=== PATIENT | male | born 1960 | race Caucasian/White ===

== ENCOUNTER 2022-12-11 15:15 | Inpatient (IN) | payer MEDICARE, MEDICAID, SELFPAY ==
[2022-12-11] VITALS (7 sets, daily range): BP systolic 148–149; BP diastolic 83–99; PULSE 71–73; RESP 16–20; TEMP 36.6; O2SAT 97–99; BMI 26.6
--- NOTE | ~2022-12-11 | CT_ITS ---
EXAMINATION: CT HEAD WITHOUT CONTRAST CLINICAL INFORMATION: Altered mental status. COMPARISON: None TECHNIQUE: Contiguous axial imaging was performed from the skull base to vertex without intravenous administration of contrast. Coronal and sagittal reformatted images were obtained. This CT examination was performed using dose optimization techniques as appropriate, variously including the following: *Automated exposure control *Adjustment of mA and/or kV according to patient size (this includes techniques or standardized protocols for targeted exams where dose is matched to indication/reason for exam; i.e. extremities or head) *Use of iterative reconstruction technique DLP: 669 mGy-cm FINDINGS: There is mild widening of the cortical sulci and associated ventriculomegaly. The lateral ventricles are symmetrical. The third and fourth ventricles are in their normal midline position. The basilar and prepontine cisterns are unremarkable. There is no acute intra or extracerebral abnormality. There is no mass effect or midline shift. Sections through the bony calvarium show no acute abnormality. Incidental prominent posterior occipital protuberance. The orbits are intact. The paranasal sinuses are clear. The mastoid air cells are clear. Mild mid nasal septal deviation, apex the right. CT/CT head/brain wo IV con IMPRESSION: No acute intracranial pathology.
--- NOTE | 2022-12-11 15:39 | ECG_ITS ---
Test Reason : MED CLEAREANCE Blood Pressure : / mmHG Vent. Rate : 059 BPM Atrial Rate : 059 BPM P-R Int : 152 ms QRS Dur : 086 ms QT Int : 422 ms P-R-T Axes : 034 -33 012 degrees QTc Int : 417 ms Sinus bradycardia Left axis deviation Abnormal ECG When compared with ECG of 14-FEB-2017 10:14, Vent. rate has decreased BY 30 BPM Referred By: Connie Barraza Electronically Signed By:Addy Mcgowan
--- NOTE | 2022-12-11 15:45 | ED_ITS ---
HPI - Psych General Chief Complaint: Psychiatric Symptoms <ANDREW Armenta - Last Filed: 12/11/22 17:44> Stated Complaint: S12 paranoia <ANDREW Armenta - Last Filed: 12/11/22 17:44> Time Seen by Provider: 12/11/22 15:38 <ANDREW Armenta - Last Filed: 12/11/22 17:44> Source: patient, EMS and old records reviewed <ANDREW Armenta - Last Filed: 12/11/22 17:44> Mode of arrival: EMS <ANDREW Armenta - Last Filed: 12/11/22 17:44> Limitations: no limitations <ANDREW Armenta Last Filed: 12/11/22 17:44> History of Present Illness HPI Narrative: 62 yo male with history of autism spectrum disorder, neurocognitive disorder, depression who presents to the ER from [facility] on a section 12 for significant disorientation, aggression and was recently discharged from a geriatric psych unit. He states he was recently admitted to [facility] for depression. He reports his depression is better. He is a poor historian. Patient was reportedly at a day program and was [place] where he was making aggressive gestures toward staff. He was confused, agitated. He has been noted to not be caring for himself. His Section 12 documentation reports suicidal ideation with plan. Patient currently denies. Patient tells me he lives home alone at an apartment in [place]. He does not know why he is in the emergency department. He wants to go home. He also keeps asking for new eyeglasses and an eye exam. <ANDREW Armenta - Last Filed: 12/11/22 17:44> MD complaint: suicidal ideation and feels depressed <ANDREW Armenta - Last Filed: 12/11/22 17:44> Onset (ago): unknown <ANDREW Armenta Last Filed: 12/11/22 17:44> Relieving factors: none <ANDREW Armenta Last Filed: 12/11/22 17:44> Exacerbating factors: none <ANDREW Armenta Last Filed: 12/11/22 17:44> Associated symptoms: insomnia <ANDREW Armenta - Last Filed: 12/11/22 17:44> Treatments prior to arrival: placed on mental health hold <ANDREW Armenta - Last Filed: 12/11/22 17:44> If self harm: admits thoughts of self harm and has plan <ANDREW Armenta - Last Filed: 12/11/22 17:44> Related Data Home Medications: Home Medications Medication Instructions Recorded Confirmed atorvastatin 80 mg tablet 80 mg PO DAILY 12/11/22 12/11/22 citalopram 20 mg tablet 20 mg PO DAILY 12/11/22 12/11/22 duloxetine 60 mg capsule,delayed 60 mg PO DAILY 12/11/22 12/11/22 release gabapentin 100 mg capsule 100 mg PO TID PRN Anxiety 12/11/22 12/11/22 gabapentin 300 mg capsule 600 mg PO TID 12/11/22 12/11/22 ibuprofen 400 mg tablet 400 mg PO Q6-8H PRN Pain 12/11/22 12/11/22 lisinopril 20 mg tablet 20 mg PO DAILY 12/11/22 12/11/22 melatonin 3 mg tablet 9 mg PO BEDTIME 12/11/22 12/11/22 metformin 500 mg tablet,extended 1,000 mg PO BID 12/11/22 12/11/22 release 24 hr metoprolol succinate 50 mg 50 mg PO DAILY 12/11/22 12/11/22 tablet,extended release 24 hr mirtazapine 15 mg disintegrating 15 mg PO DAILY 12/11/22 12/11/22 tablet mirtazapine 30 mg disintegrating 30 mg PO BEDTIME 12/11/22 12/11/22 tablet olanzapine 10 mg disintegrating 5 mg PO BID PRN Agitation 12/11/22 12/11/22 tablet olanzapine 20 mg disintegrating 20 mg PO BEDTIME 12/11/22 12/11/22 tablet trazodone 50 mg tablet 25 mg PO BEDTIME PRN Agitation 12/11/22 12/11/22 <ANDREW Armenta - Last Filed: 12/11/22 17:44> Allergies/Adverse Reactions: Allergies Allergy/AdvReac Type Severity Reaction Status Date / Time No Known Allergies Allergy Unverified 07/13/20 19:15 [No Known Allergies*] <ANDREW Armenta - Last Filed: 12/11/22 17:44> Review of Systems Review of Systems: Yes all other systems are reviewed and are negative <ANDREW Armenta - Last Filed: 12/11/22 17:44> [facility] Social History Social History: Social History Alcohol intake: unknown Smoked in Last 30 Days: No Use of substances other than those prescribed or required for medical reasons: Unknown Advance Directives: No Advance Directives Information Provided: No <ANDREW Armenta - Last Filed: 12/11/22 17:44> Physical Exam Vital Signs: Vital Signs: Last Vital Signs Temp 97.6 F 12/13/22 07:16 Pulse 82 12/13/22 07:16 Resp 12 12/13/22 07:16 BP 148/94 H 12/13/22 07:16 Pulse Ox 97 12/13/22 07:16 O2 Del Method 12/13/22 07:16 BMI result Body Mass Index 26.6 <ANDREW Armenta - Last Filed: 12/11/22 17:44> Vital Signs: Last Vital Signs Temp 97.6 F 12/13/22 07:16 Pulse 82 12/13/22 07:16 Resp 12 12/13/22 07:16 BP 148/94 H 12/13/22 07:16 Pulse Ox 97 12/13/22 07:16 O2 Del Method 12/13/22 07:16 BMI result Body Mass Index 26.6 <Wander La MD - Last Filed: 12/12/22 01:48> Vital Signs: Last Vital Signs Temp 97.6 F 12/13/22 07:16 Pulse 82 12/13/22 07:16 Resp 12 12/13/22 07:16 BP 148/94 H 12/13/22 07:16 Pulse Ox 97 12/13/22 07:16 O2 Del Method 12/13/22 07:16 BMI result Body Mass Index 26.6 <Ander Farooq MD - Last Filed: 12/12/22 16:21> Vital Signs: Last Vital Signs Temp 97.6 F 12/13/22 07:16 Pulse 82 12/13/22 07:16 Resp 12 12/13/22 07:16 BP 148/94 H 12/13/22 07:16 Pulse Ox 97 12/13/22 07:16 O2 Del Method 12/13/22 07:16 BMI result Body Mass Index 26.6 <Tremaine Turner MD - Last Filed: 12/13/22 08:03> Appearance: Alert. Oriented X3. No acute distress. Eyes: Pupils equal, round and reactive to light. ENT: Pharynx normal. Neck: Normal inspection. Neck supple. CVS: Normal heart rate and rhythm. Pulses normal. Respiratory: No respiratory distress. Breath sounds normal. Abdomen: Soft and nontender. +BS x4 Skin: Skin warm and dry. Normal skin color. Normal skin turgor. No rashes. Extremities: No lower extremity edema. Neuro: Oriented X 3. No motor deficit. No sensory deficit. Psych: Patient is awake and alert, conversant although has disorganized thought process, fixated on eye glasses an eye examination. Reports his mood is ?okay. ? Denies suicidality or delusions. <ANDREW Armenta - Last Filed: 12/11/22 17:44> Course Course Course Narrative: 62-year-old male with history of autism spectrum disorder, neuro cognitive disorder, depression with recent hospitalization at [facility] (per his report) who presents to the ER on a Section 12 from the community for concerns of significant disorientation, recent [facility] psych stay, suicide plans with means, not attending to ADLs, severe confusion contributing to safety concerns, assaultive gesturing towards care staff. <ANDREW Armenta - Last Filed: 12/11/22 17:44> Reevaluation(s) Reevaluation #1: Labs revealing some mild hyperglycemia, glucose 161. Urinalysis with 500 glucose. Med reviewed. He is on metformin which accounts for this. He is also on antihypertensive agents, will restart them. Will have care team evaluate him. He is medically cleared at this time. Will continue to attempt to get records from [place] and [facility]. Physician observation started at 17:41 over was agitation or 1 over would be he eye glass from a 1 and I care team med ordered. Patient placed in physician observation because patient is awaiting [facility] evaluation for the possible need of inpatient psych admission. At the time observation was started patient's vital signs were stable. Patient is alert and oriented. Neuro exam is non-focal. CV: RRR and lungs are clear. Will continue to monitor. <ANDREW Armenta - Last Filed: 12/11/22 17:44> Reevaluation #2: Was called to 3 patient is agitated, trying to harm himself, aggressive with the staff try to harm the nurse, patient required Haldol 5 mg and Ativan 2 mg intramuscularly, patient was evaluated after he is more calm and relaxed. Patient needed no physical restraint. <Wander La MD - Last Filed: 12/12/22 01:48> Time: 12:00 <Wander La MD - Last Filed: 12/12/22 01:48> Reevaluation #3: No active issues during my shift. Still patient with Care team. On coming provider to assume care at this time. <Ander Farooq MD - Last Filed: 12/12/22 16:21> Time: 16:08 <Ander Farooq MD - Last Filed: 12/12/22 16:21> Additional Reevaluation(s): 12/13/22 8:AM patient remain hemodynamically stable no issues overnight, he remained an inpatient bed search on a Section 12 for paranoia <Tremaine Turner MD - Last Filed: 12/13/22 08:03> Consultations Consultation #1: CARE team <ANDREW Armenta - Last Filed: 12/11/22 17:44> Medications Administered Generic Name Dose Route Start Last Admin Trade Name Freq PRN Reason Stop Dose Admin Atorvastatin Calcium 80 mg 12/12/22 09:00 12/13/22 07:21 Atorvastatin Calcium 80 Mg Tablet PO 80 mg DAILY DESIRAE Administration Duloxetine HCl 60 mg 12/12/22 09:00 12/13/22 07:21 Duloxetine Hcl 60 Mg Capsule. PO 60 mg DAILY EDSIRAE Administration Escitalopram Oxalate 10 mg 12/12/22 09:00 12/13/22 07:20 Escitalopram Oxalate 10 Mg Tablet PO 10 mg DAILY DESIRAE Administration Gabapentin 600 mg 12/11/22 21:00 12/13/22 07:20 Gabapentin 300 Mg Capsule PO 600 mg TID DESIRAE Administration Lisinopril 20 mg 12/12/22 09:00 12/13/22 07:21 Lisinopril 20 Mg Tablet PO 20 mg DAILY DESIRAE Administration Protocol Melatonin 9 mg 12/11/22 21:00 12/12/22 20:04 Melatonin 3 Mg Tablet PO 9 mg BEDTIME DESIRAE Administration Metformin HCl 1,000 mg 12/11/22 21:00 12/13/22 07:21 Metformin Hcl Er 500 Mg Tab.Er.24h PO 1,000 mg BID DESIRAE Administration Metoprolol Succinate 50 mg 12/12/22 09:00 12/13/22 07:20 Metoprolol Succinate Er 50 Mg Tab.Er.24h PO 50 mg DAILY DESIRAE Administration Protocol Olanzapine 15 mg 12/12/22 21:00 12/12/22 20:05 Olanzapine Odt 10 Mg Tab.Rapdis TRANSLINGU 15 mg BEDTIME DESIRAE Administration Discontinued Medications Generic Name Dose Route Start Last Admin Trade Name Freq PRN Reason Stop Dose Admin Haloperidol Lactate 5 mg 12/11/22 21:14 12/11/22 21:20 Haloperidol Lactate 5 Mg/Ml Vial IM 12/11/22 21:15 5 mg ONCE ONE Administration Lorazepam 2 mg 12/11/22 21:14 12/11/22 21:20 Lorazepam 2 Mg/Ml Vial IM 12/11/22 21:15 2 mg STAT STA Administration Mirtazapine 15 mg 12/12/22 09:00 12/12/22 09:58 Mirtazapine 15 Mg Tablet PO 15 mg DAILY DESIRAE Administration Mirtazapine 30 mg 12/11/22 21:00 12/11/22 20:14 Mirtazapine 30 Mg Tablet PO 30 mg BEDTIME DESIRAE Administration Olanzapine 20 mg 12/11/22 21:00 12/11/22 20:14 Olanzapine Odt 10 Mg Tab.Rapdis TRANSLINGU 20 mg BEDTIME DESIRAE Administration <ANDREW Armenta - Last Filed: 12/11/22 17:44> Medications Administered Generic Name Dose Route Start Last Admin Trade Name Freq PRN Reason Stop Dose Admin Atorvastatin Calcium 80 mg 12/12/22 09:00 12/13/22 07:21 Atorvastatin Calcium 80 Mg Tablet PO 80 mg DAILY DESIRAE Administration Duloxetine HCl 60 mg 12/12/22 09:00 12/13/22 07:21 Duloxetine Hcl 60 Mg Capsule.Dr PO 60 mg DAILY DESIRAE Administration Escitalopram Oxalate 10 mg 12/12/22 09:00 12/13/22 07:20 Escitalopram Oxalate 10 Mg Tablet PO 10 mg DAILY DESIRAE Administration Gabapentin 600 mg 12/11/22 21:00 12/13/22 07:20 Gabapentin 300 Mg Capsule PO 600 mg TID DESIRAE Administration Lisinopril 20 mg 12/12/22 09:00 12/13/22 07:21 Lisinopril 20 Mg Tablet PO 20 mg DAILY DESIRAE Administration Protocol Melatonin 9 mg 12/11/22 21:00 12/12/22 20:04 Melatonin 3 Mg Tablet PO 9 mg BEDTIME DESIRAE Administration Metformin HCl 1,000 mg 12/11/22 21:00 12/13/22 07:21 Metformin Hcl Er 500 Mg Tab.Er.24h PO 1,000 mg BID DESIRAE Administration Metoprolol Succinate 50 mg 12/12/22 09:00 12/13/22 07:20 Metoprolol Succinate Er 50 Mg Tab.Er.24h PO 50 mg DAILY DESIRAE Administration Protocol Olanzapine 15 mg 12/12/22 21:00 12/12/22 20:05 Olanzapine Odt 10 Mg Tab.Rapdis TRANSLINGU 15 mg BEDTIME DESIRAE Administration Discontinued Medications Generic Name Dose Route Start Last Admin Trade Name Freq PRN Reason Stop Dose Admin Haloperidol Lactate 5 mg 12/11/22 21:14 12/11/22 21:20 Haloperidol Lactate 5 Mg/Ml Vial IM 12/11/22 21:15 5 mg ONCE ONE Administration Lorazepam 2 mg 12/11/22 21:14 12/11/22 21:20 Lorazepam 2 Mg/Ml Vial IM 12/11/22 21:15 2 mg STAT STA Administration Mirtazapine 15 mg 12/12/22 09:00 12/12/22 09:58 Mirtazapine 15 Mg Tablet PO 15 mg DAILY DESIRAE Administration Mirtazapine 30 mg 12/11/22 21:00 12/11/22 20:14 Mirtazapine 30 Mg Tablet PO 30 mg BEDTIME DESIRAE Administration Olanzapine 20 mg 12/11/22 21:00 12/11/22 20:14 Olanzapine Odt 10 Mg Tab.Rapdis TRANSLINGU 20 mg BEDTIME DESIRAE Administration <Wander La MD - Last Filed: 12/12/22 01:48> Medications Administered Generic Name Dose Route Start Last Admin Trade Name Freq PRN Reason Stop Dose Admin Atorvastatin Calcium 80 mg 12/12/22 09:00 12/13/22 07:21 Atorvastatin Calcium 80 Mg Tablet PO 80 mg DAILY DESIRAE Administration Duloxetine HCl 60 mg 12/12/22 09:00 12/13/22 07:21 Duloxetine Hcl 60 Mg Capsule.Dr PO 60 mg DAILY DESIRAE Administration Escitalopram Oxalate 10 mg 12/12/22 09:00 12/13/22 07:20 Escitalopram Oxalate 10 Mg Tablet PO 10 mg DAILY DESIRAE Administration Gabapentin 600 mg 12/11/22 21:00 12/13/22 07:20 Gabapentin 300 Mg Capsule PO 600 mg TID DESIRAE Administration Lisinopril 20 mg 12/12/22 09:00 12/13/22 07:21 Lisinopril 20 Mg Tablet PO 20 mg DAILY DESIRAE Administration Protocol Melatonin 9 mg 12/11/22 21:00 12/12/22 20:04 Melatonin 3 Mg Tablet PO 9 mg BEDTIME DESIRAE Administration Metformin HCl 1,000 mg 12/11/22 21:00 12/13/22 07:21 Metformin Hcl Er 500 Mg Tab.Er.24h PO 1,000 mg BID DESIRAE Administration Metoprolol Succinate 50 mg 12/12/22 09:00 12/13/22 07:20 Metoprolol Succinate Er 50 Mg Tab.Er.24h PO 50 mg DAILY DESIRAE Administration Protocol Olanzapine 15 mg 12/12/22 21:00 12/12/22 20:05 Olanzapine Odt 10 Mg Tab.Rapdis TRANSLINGU 15 mg BEDTIME DESIRAE Administration Discontinued Medications Generic Name Dose Route Start Last Admin Trade Name Freq PRN Reason Stop Dose Admin Haloperidol Lactate 5 mg 12/11/22 21:14 12/11/22 21:20 Haloperidol Lactate 5 Mg/Ml Vial IM 12/11/22 21:15 5 mg ONCE ONE Administration Lorazepam 2 mg 12/11/22 21:14 12/11/22 21:20 Lorazepam 2 Mg/Ml Vial IM 12/11/22 21:15 2 mg STAT STA Administration Mirtazapine 15 mg 12/12/22 09:00 12/12/22 09:58 Mirtazapine 15 Mg Tablet PO 15 mg DAILY DESIRAE Administration Mirtazapine 30 mg 12/11/22 21:00 12/11/22 20:14 Mirtazapine 30 Mg Tablet PO 30 mg BEDTIME DESIRAE Administration Olanzapine 20 mg 12/11/22 21:00 12/11/22 20:14 Olanzapine Odt 10 Mg Tab.Rapdis TRANSLINGU 20 mg BEDTIME DESIRAE Administration <Ander Farooq MD - Last Filed: 12/12/22 16:21> Medications Administered Generic Name Dose Route Start Last Admin Trade Name Freq PRN Reason Stop Dose Admin Atorvastatin Calcium 80 mg 12/12/22 09:00 12/13/22 07:21 Atorvastatin Calcium 80 Mg Tablet PO 80 mg DAILY DESIRAE Administration Duloxetine HCl 60 mg 12/12/22 09:00 12/13/22 07:21 Duloxetine Hcl 60 Mg Capsule.Dr PO 60 mg DAILY DESIRAE Administration Escitalopram Oxalate 10 mg 12/12/22 09:00 12/13/22 07:20 Escitalopram Oxalate 10 Mg Tablet PO 10 mg DAILY DESIRAE Administration Gabapentin 600 mg 12/11/22 21:00 12/13/22 07:20 Gabapentin 300 Mg Capsule PO 600 mg TID DESIRAE Administration Lisinopril 20 mg 12/12/22 09:00 12/13/22 07:21 Lisinopril 20 Mg Tablet PO 20 mg DAILY DESIRAE Administration Protocol Melatonin 9 mg 12/11/22 21:00 12/12/22 20:04 Melatonin 3 Mg Tablet PO 9 mg BEDTIME DESIRAE Administration Metformin HCl 1,000 mg 12/11/22 21:00 12/13/22 07:21 Metformin Hcl Er 500 Mg Tab.Er.24h PO 1,000 mg BID DESIRAE Administration Metoprolol Succinate 50 mg 12/12/22 09:00 12/13/22 07:20 Metoprolol Succinate Er 50 Mg Tab.Er.24h PO 50 mg DAILY DESIRAE Administration Protocol Olanzapine 15 mg 12/12/22 21:00 12/12/22 20:05 Olanzapine Odt 10 Mg Tab.Rapdis TRANSLINGU 15 mg BEDTIME DESIRAE Administration Discontinued Medications Generic Name Dose Route Start Last Admin Trade Name Gabe CHRISTENSENN Reason Stop Dose Admin Haloperidol Lactate 5 mg 12/11/22 21:14 12/11/22 21:20 Haloperidol Lactate 5 Mg/Ml Vial IM 12/11/22 21:15 5 mg ONCE ONE Administration Lorazepam 2 mg 12/11/22 21:14 12/11/22 21:20 Lorazepam 2 Mg/Ml Vial IM 12/11/22 21:15 2 mg STAT STA Administration Mirtazapine 15 mg 12/12/22 09:00 12/12/22 09:58 Mirtazapine 15 Mg Tablet PO 15 mg DAILY DESIRAE Administration Mirtazapine 30 mg 12/11/22 21:00 12/11/22 20:14 Mirtazapine 30 Mg Tablet PO 30 mg BEDTIME DESIRAE Administration Olanzapine 20 mg 12/11/22 21:00 12/11/22 20:14 Olanzapine Odt 10 Mg Tab.Rapdis TRANSLINGU 20 mg BEDTIME DESIRAE Administration <Tremaine Turner MD - Last Filed: 12/13/22 08:03> Medical Decision Making Lab Data Result Diagrams: 12/11/22 16:06 12/11/22 16:06 <ANDREW Armenta - Last Filed: 12/11/22 17:44> Labs: Lab Results 12/11/22 12/11/22 12/11/22 Range/Units 15:45 15:46 15:46 WBC (4.8-10.8) X10*3/uL RBC (4.60-5.80) X10*6/uL Hgb (14.0-18.0) g/dl Hct (42.0-52.0) % MCV (80.0-98.0) fL MCH (27.0-33.0) pg MCHC (31.0-36.0) g/dl RDW (11.0-16.0) % Plt Count (160-400) X10*3/uL MPV (9.4-12.4) fL Immature Gran % (Auto) (0.0-0.4) % Neut % (Auto) (45-73) % Lymph % (Auto) (20-40) % [place] % (Auto) (2-11) % Eos % (Auto) (0-4) % Baso % (Auto) (0-2) % Lymph # (Auto) (1.2-4.9) X10*3/uL [place] # (Auto) (0.1-1.2) X10*3/uL Eos # (Auto) (0.0-0.4) X10*3/uL Baso # (Auto) (0.0-0.2) X10*3/uL Abs Immat Gran (auto) (0.00-0.03) X10*3/uL Absolute Neuts (auto) (2.0-8.3) x10*3/uL Absolute Nucleated RBC (0.0-0.012) X10*3/uL Nucleated RBC % (auto) (0.0-0.2) /100WBC Sodium (135-145) mmol/L Potassium (3.3-5.1) mmol/L Chloride (96-108) mmol/L Carbon Dioxide (22-29) mmol/L Anion Gap (12-20) BUN (9-16) mg/dL Creatinine (0.5-1.4) mg/dL Estim Creat Clear Calc Estimated GFR Random Glucose (60-115) mg/dL Calcium (8.4-10.2) mg/dL Total Bilirubin (0.0-1.0) mg/dL Direct Bilirubin (0.0-0.5) mg/dL AST (5-37) U/L ALT (0-40) U/L Alkaline Phosphatase (39-117) U/L Total Protein (6.5-8.0) g/dL Albumin (3.5-5.0) g/dL Lipase (8-78) U/L Urine Color Yellow Urine Appearance Clear Urine pH 5.5 (5.0-9.0) Ur Specific [place] >= 1.030 H (1.005-1.025) Urine Protein Negative (Neg-Trace) mg/dL Urine Glucose (UA) 500 H (Negative) mg/dL Urine Ketones Trace (Negative) mg/dL Urine Blood Negative (Negative) Urine Nitrite Negative (Negative) Ur Leukocyte Esterase Negative (Negative) Urine Opiates Screen Not Detected (Not Detect) Urine Fentanyl Screen Not Detected (Not Detect) Ur Barbiturates Screen Not Detected (Not Detect) Ur Phencyclidine Scrn Not Detected (Not Detect) Ur Amphetamines Screen Not Detected (Not Detect) U Benzodiazepines Scrn Not Detected (Not Detect) Urine Cocaine Screen Not Detected (Not Detect) U Marijuana (THC) Screen Not Detected (Not Detect) COVID-19 (ERIBERTO) Negative (Negative) COVID-19 Clin Com See Note 12/11/22 12/11/22 Range/Units 16:06 16:06 WBC 7.2 (4.8-10.8) X10*3/uL RBC 4.10 L (4.60-5.80) X10*6/uL Hgb 12.4 L (14.0-18.0) g/dl Hct 37.6 L (42.0-52.0) % MCV 91.7 (80.0-98.0) fL MCH 30.2 (27.0-33.0) pg MCHC 33.0 (31.0-36.0) g/dl RDW 13.5 (11.0-16.0) % Plt Count 235 (160-400) X10*3/uL MPV 10.1 (9.4-12.4) fL Immature Gran % (Auto) 0.8 H (0.0-0.4) % Neut % (Auto) 66.3 (45-73) % Lymph % (Auto) 20.1 (20-40) % [place] % (Auto) 10.6 (2-11) % Eos % (Auto) 1.8 (0-4) % Baso % (Auto) 0.4 (0-2) % Lymph # (Auto) 1.5 (1.2-4.9) X10*3/uL [place] # (Auto) 0.8 (0.1-1.2) X10*3/uL Eos # (Auto) 0.1 (0.0-0.4) X10*3/uL Baso # (Auto) 0.0 (0.0-0.2) X10*3/uL Abs Immat Gran (auto) 0.06 H (0.00-0.03) X10*3/uL Absolute Neuts (auto) 4.8 (2.0-8.3) x10*3/uL Absolute Nucleated RBC 0.000 (0.0-0.012) X10*3/uL Nucleated RBC % (auto) 0.0 (0.0-0.2) /100WBC Sodium 143 (135-145) mmol/L Potassium 4.6 (3.3-5.1) mmol/L Chloride 108 (96-108) mmol/L Carbon Dioxide 26 (22-29) mmol/L Anion Gap 14 (12-20) BUN 18 H (9-16) mg/dL Creatinine 1.05 (0.5-1.4) mg/dL Estim Creat Clear Calc 72.9 Estimated GFR > 60 Random Glucose 161 H (60-115) mg/dL Calcium 9.1 (8.4-10.2) mg/dL Total Bilirubin 0.5 (0.0-1.0) mg/dL Direct Bilirubin 0.2 (0.0-0.5) mg/dL AST 21 (5-37) U/L ALT 28 (0-40) U/L Alkaline Phosphatase 68 (39-117) U/L Total Protein 6.5 (6.5-8.0) g/dL Albumin 4.2 (3.5-5.0) g/dL Lipase 22 (8-78) U/L Urine Color Urine Appearance Urine pH (5.0-9.0) Ur Specific [place] (1.005-1.025) Urine Protein (Neg-Trace) mg/dL Urine Glucose (UA) (Negative) mg/dL Urine Ketones (Negative) mg/dL Urine Blood (Negative) Urine Nitrite (Negative) Ur Leukocyte Esterase (Negative) Urine Opiates Screen (Not Detect) Urine Fentanyl Screen (Not Detect) Ur Barbiturates Screen (Not Detect) Ur Phencyclidine Scrn (Not Detect) Ur Amphetamines Screen (Not Detect) U Benzodiazepines Scrn (Not Detect) Urine Cocaine Screen (Not Detect) U Marijuana (THC) Screen (Not Detect) COVID-19 (ERIBERTO) (Negative) COVID-19 Clin Com <ANDREW Armenta - Last Filed: 12/11/22 17:44> Lab Results 12/11/22 12/11/22 12/11/22 Range/Units 15:45 15:46 15:46 WBC (4.8-10.8) X10*3/uL RBC (4.60-5.80) X10*6/uL Hgb (14.0-18.0) g/dl Hct (42.0-52.0) % MCV (80.0-98.0) fL MCH (27.0-33.0) pg MCHC (31.0-36.0) g/dl RDW (11.0-16.0) % Plt Count (160-400) X10*3/uL MPV (9.4-12.4) fL Immature Gran % (Auto) (0.0-0.4) % Neut % (Auto) (45-73) % Lymph % (Auto) (20-40) % [place] % (Auto) (2-11) % Eos % (Auto) (0-4) % Baso % (Auto) (0-2) % Lymph # (Auto) (1.2-4.9) X10*3/uL [place] # (Auto) (0.1-1.2) X10*3/uL Eos # (Auto) (0.0-0.4) X10*3/uL Baso # (Auto) (0.0-0.2) X10*3/uL Abs Immat Gran (auto) (0.00-0.03) X10*3/uL Absolute Neuts (auto) (2.0-8.3) x10*3/uL Absolute Nucleated RBC (0.0-0.012) X10*3/uL Nucleated RBC % (auto) (0.0-0.2) /100WBC Sodium (135-145) mmol/L Potassium (3.3-5.1) mmol/L Chloride (96-108) mmol/L Carbon Dioxide (22-29) mmol/L Anion Gap (12-20) BUN (9-16) mg/dL Creatinine (0.5-1.4) mg/dL Estim Creat Clear Calc Estimated GFR Random Glucose (60-115) mg/dL Calcium (8.4-10.2) mg/dL Total Bilirubin (0.0-1.0) mg/dL Direct Bilirubin (0.0-0.5) mg/dL AST (5-37) U/L ALT (0-40) U/L Alkaline Phosphatase (39-117) U/L Total Protein (6.5-8.0) g/dL Albumin (3.5-5.0) g/dL Lipase (8-78) U/L Urine Color Yellow Urine Appearance Clear Urine pH 5.5 (5.0-9.0) Ur Specific [place] >= 1.030 H (1.005-1.025) Urine Protein Negative (Neg-Trace) mg/dL Urine Glucose (UA) 500 H (Negative) mg/dL Urine Ketones Trace (Negative) mg/dL Urine Blood Negative (Negative) Urine Nitrite Negative (Negative) Ur Leukocyte Esterase Negative (Negative) Urine Opiates Screen Not Detected (Not Detect) Urine Fentanyl Screen Not Detected (Not Detect) Ur Barbiturates Screen Not Detected (Not Detect) Ur Phencyclidine Scrn Not Detected (Not Detect) Ur Amphetamines Screen Not Detected (Not Detect) U Benzodiazepines Scrn Not Detected (Not Detect) Urine Cocaine Screen Not Detected (Not Detect) U Marijuana (THC) Screen Not Detected (Not Detect) COVID-19 (ERIBERTO) Negative (Negative) COVID-19 Clin Com See Note 12/11/22 12/11/22 Range/Units 16:06 16:06 WBC 7.2 (4.8-10.8) X10*3/uL RBC 4.10 L (4.60-5.80) X10*6/uL Hgb 12.4 L (14.0-18.0) g/dl Hct 37.6 L (42.0-52.0) % MCV 91.7 (80.0-98.0) fL MCH 30.2 (27.0-33.0) pg MCHC 33.0 (31.0-36.0) g/dl RDW 13.5 (11.0-16.0) % Plt Count 235 (160-400) X10*3/uL MPV 10.1 (9.4-12.4) fL Immature Gran % (Auto) 0.8 H (0.0-0.4) % Neut % (Auto) 66.3 (45-73) % Lymph % (Auto) 20.1 (20-40) % [place] % (Auto) 10.6 (2-11) % Eos % (Auto) 1.8 (0-4) % Baso % (Auto) 0.4 (0-2) % Lymph # (Auto) 1.5 (1.2-4.9) X10*3/uL [place] # (Auto) 0.8 (0.1-1.2) X10*3/uL Eos # (Auto) 0.1 (0.0-0.4) X10*3/uL Baso # (Auto) 0.0 (0.0-0.2) X10*3/uL Abs Immat Gran (auto) 0.06 H (0.00-0.03) X10*3/uL Absolute Neuts (auto) 4.8 (2.0-8.3) x10*3/uL Absolute Nucleated RBC 0.000 (0.0-0.012) X10*3/uL Nucleated RBC % (auto) 0.0 (0.0-0.2) /100WBC Sodium 143 (135-145) mmol/L Potassium 4.6 (3.3-5.1) mmol/L Chloride 108 (96-108) mmol/L Carbon Dioxide 26 (22-29) mmol/L Anion Gap 14 (12-20) BUN 18 H (9-16) mg/dL Creatinine 1.05 (0.5-1.4) mg/dL Estim Creat Clear Calc 72.9 Estimated GFR > 60 Random Glucose 161 H (60-115) mg/dL Calcium 9.1 (8.4-10.2) mg/dL Total Bilirubin 0.5 (0.0-1.0) mg/dL Direct Bilirubin 0.2 (0.0-0.5) mg/dL AST 21 (5-37) U/L ALT 28 (0-40) U/L Alkaline Phosphatase 68 (39-117) U/L Total Protein 6.5 (6.5-8.0) g/dL Albumin 4.2 (3.5-5.0) g/dL Lipase 22 (8-78) U/L Urine Color Urine Appearance Urine pH (5.0-9.0) Ur Specific [place] (1.005-1.025) Urine Protein (Neg-Trace) mg/dL Urine Glucose (UA) (Negative) mg/dL Urine Ketones (Negative) mg/dL Urine Blood (Negative) Urine Nitrite (Negative) Ur Leukocyte Esterase (Negative) Urine Opiates Screen (Not Detect) Urine Fentanyl Screen (Not Detect) Ur Barbiturates Screen (Not Detect) Ur Phencyclidine Scrn (Not Detect) Ur Amphetamines Screen (Not Detect) U Benzodiazepines Scrn (Not Detect) Urine Cocaine Screen (Not Detect) U Marijuana (THC) Screen (Not Detect) COVID-19 (ERIBERTO) (Negative) COVID-19 Clin Com <Wander La MD - Last Filed: 12/12/22 01:48> Lab Results 12/11/22 12/11/22 12/11/22 Range/Units 15:45 15:46 15:46 WBC (4.8-10.8) X10*3/uL RBC (4.60-5.80) X10*6/uL Hgb (14.0-18.0) g/dl Hct (42.0-52.0) % MCV (80.0-98.0) fL MCH (27.0-33.0) pg MCHC (31.0-36.0) g/dl RDW (11.0-16.0) % Plt Count (160-400) X10*3/uL MPV (9.4-12.4) fL Immature Gran % (Auto) (0.0-0.4) % Neut % (Auto) (45-73) % Lymph % (Auto) (20-40) % [place] % (Auto) (2-11) % Eos % (Auto) (0-4) % Baso % (Auto) (0-2) % Lymph # (Auto) (1.2-4.9) X10*3/uL [place] # (Auto) (0.1-1.2) X10*3/uL Eos # (Auto) (0.0-0.4) X10*3/uL Baso # (Auto) (0.0-0.2) X10*3/uL Abs Immat Gran (auto) (0.00-0.03) X10*3/uL Absolute Neuts (auto) (2.0-8.3) x10*3/uL Absolute Nucleated RBC (0.0-0.012) X10*3/uL Nucleated RBC % (auto) (0.0-0.2) /100WBC Sodium (135-145) mmol/L Potassium (3.3-5.1) mmol/L Chloride (96-108) mmol/L Carbon Dioxide (22-29) mmol/L Anion Gap (12-20) BUN (9-16) mg/dL Creatinine (0.5-1.4) mg/dL Estim Creat Clear Calc Estimated GFR Random Glucose (60-115) mg/dL Calcium (8.4-10.2) mg/dL Total Bilirubin (0.0-1.0) mg/dL Direct Bilirubin (0.0-0.5) mg/dL AST (5-37) U/L ALT (0-40) U/L Alkaline Phosphatase (39-117) U/L Total Protein (6.5-8.0) g/dL Albumin (3.5-5.0) g/dL Lipase (8-78) U/L Urine Color Yellow Urine Appearance Clear Urine pH 5.5 (5.0-9.0) Ur Specific [place] >= 1.030 H (1.005-1.025) Urine Protein Negative (Neg-Trace) mg/dL Urine Glucose (UA) 500 H (Negative) mg/dL Urine Ketones Trace (Negative) mg/dL Urine Blood Negative (Negative) Urine Nitrite Negative (Negative) Ur Leukocyte Esterase Negative (Negative) Urine Opiates Screen Not Detected (Not Detect) Urine Fentanyl Screen Not Detected (Not Detect) Ur Barbiturates Screen Not Detected (Not Detect) Ur Phencyclidine Scrn Not Detected (Not Detect) Ur Amphetamines Screen Not Detected (Not Detect) U Benzodiazepines Scrn Not Detected (Not Detect) Urine Cocaine Screen Not Detected (Not Detect) U Marijuana (THC) Screen Not Detected (Not Detect) COVID-19 (ERIBERTO) Negative (Negative) COVID-19 Clin Com See Note 12/11/22 12/11/22 Range/Units 16:06 16:06 WBC 7.2 (4.8-10.8) X10*3/uL RBC 4.10 L (4.60-5.80) X10*6/uL Hgb 12.4 L (14.0-18.0) g/dl Hct 37.6 L (42.0-52.0) % MCV 91.7 (80.0-98.0) fL MCH 30.2 (27.0-33.0) pg MCHC 33.0 (31.0-36.0) g/dl RDW 13.5 (11.0-16.0) % Plt Count 235 (160-400) X10*3/uL MPV 10.1 (9.4-12.4) fL Immature Gran % (Auto) 0.8 H (0.0-0.4) % Neut % (Auto) 66.3 (45-73) % Lymph % (Auto) 20.1 (20-40) % [place] % (Auto) 10.6 (2-11) % Eos % (Auto) 1.8 (0-4) % Baso % (Auto) 0.4 (0-2) % Lymph # (Auto) 1.5 (1.2-4.9) X10*3/uL [place] # (Auto) 0.8 (0.1-1.2) X10*3/uL Eos # (Auto) 0.1 (0.0-0.4) X10*3/uL Baso # (Auto) 0.0 (0.0-0.2) X10*3/uL Abs Immat Gran (auto) 0.06 H (0.00-0.03) X10*3/uL Absolute Neuts (auto) 4.8 (2.0-8.3) x10*3/uL Absolute Nucleated RBC 0.000 (0.0-0.012) X10*3/uL Nucleated RBC % (auto) 0.0 (0.0-0.2) /100WBC Sodium 143 (135-145) mmol/L Potassium 4.6 (3.3-5.1) mmol/L Chloride 108 (96-108) mmol/L Carbon Dioxide 26 (22-29) mmol/L Anion Gap 14 (12-20) BUN 18 H (9-16) mg/dL Creatinine 1.05 (0.5-1.4) mg/dL Estim Creat Clear Calc 72.9 Estimated GFR > 60 Random Glucose 161 H (60-115) mg/dL Calcium 9.1 (8.4-10.2) mg/dL Total Bilirubin 0.5 (0.0-1.0) mg/dL Direct Bilirubin 0.2 (0.0-0.5) mg/dL AST 21 (5-37) U/L ALT 28 (0-40) U/L Alkaline Phosphatase 68 (39-117) U/L Total Protein 6.5 (6.5-8.0) g/dL Albumin 4.2 (3.5-5.0) g/dL Lipase 22 (8-78) U/L Urine Color Urine Appearance Urine pH (5.0-9.0) Ur Specific [place] (1.005-1.025) Urine Protein (Neg-Trace) mg/dL Urine Glucose (UA) (Negative) mg/dL Urine Ketones (Negative) mg/dL Urine Blood (Negative) Urine Nitrite (Negative) Ur Leukocyte Esterase (Negative) Urine Opiates Screen (Not Detect) Urine Fentanyl Screen (Not Detect) Ur Barbiturates Screen (Not Detect) Ur Phencyclidine Scrn (Not Detect) Ur Amphetamines Screen (Not Detect) U Benzodiazepines Scrn (Not Detect) Urine Cocaine Screen (Not Detect) U Marijuana (THC) Screen (Not Detect) COVID-19 (ERIBERTO) (Negative) COVID-19 Clin Com <Ander Farooq MD - Last Filed: 12/12/22 16:21> Lab Results 12/11/22 12/11/22 12/11/22 Range/Units 15:45 15:46 15:46 WBC (4.8-10.8) X10*3/uL RBC (4.60-5.80) X10*6/uL Hgb (14.0-18.0) g/dl Hct (42.0-52.0) % MCV (80.0-98.0) fL MCH (27.0-33.0) pg MCHC (31.0-36.0) g/dl RDW (11.0-16.0) % Plt Count (160-400) X10*3/uL MPV (9.4-12.4) fL Immature Gran % (Auto) (0.0-0.4) % Neut % (Auto) (45-73) % Lymph % (Auto) (20-40) % [place] % (Auto) (2-11) % Eos % (Auto) (0-4) % Baso % (Auto) (0-2) % Lymph # (Auto) (1.2-4.9) X10*3/uL [place] # (Auto) (0.1-1.2) X10*3/uL Eos # (Auto) (0.0-0.4) X10*3/uL Baso # (Auto) (0.0-0.2) X10*3/uL Abs Immat Gran (auto) (0.00-0.03) X10*3/uL Absolute Neuts (auto) (2.0-8.3) x10*3/uL Absolute Nucleated RBC (0.0-0.012) X10*3/uL Nucleated RBC % (auto) (0.0-0.2) /100WBC Sodium (135-145) mmol/L Potassium (3.3-5.1) mmol/L Chloride (96-108) mmol/L Carbon Dioxide (22-29) mmol/L Anion Gap (12-20) BUN (9-16) mg/dL Creatinine (0.5-1.4) mg/dL Estim Creat Clear Calc Estimated GFR Random Glucose (60-115) mg/dL Calcium (8.4-10.2) mg/dL Total Bilirubin (0.0-1.0) mg/dL Direct Bilirubin (0.0-0.5) mg/dL AST (5-37) U/L ALT (0-40) U/L Alkaline Phosphatase (39-117) U/L Total Protein (6.5-8.0) g/dL Albumin (3.5-5.0) g/dL Lipase (8-78) U/L Urine Color Yellow Urine Appearance Clear Urine pH 5.5 (5.0-9.0) Ur Specific [place] >= 1.030 H (1.005-1.025) Urine Protein Negative (Neg-Trace) mg/dL Urine Glucose (UA) 500 H (Negative) mg/dL Urine Ketones Trace (Negative) mg/dL Urine Blood Negative (Negative) Urine Nitrite Negative (Negative) Ur Leukocyte Esterase Negative (Negative) Urine Opiates Screen Not Detected (Not Detect) Urine Fentanyl Screen Not Detected (Not Detect) Ur Barbiturates Screen Not Detected (Not Detect) Ur Phencyclidine Scrn Not Detected (Not Detect) Ur Amphetamines Screen Not Detected (Not Detect) U Benzodiazepines Scrn Not Detected (Not Detect) Urine Cocaine Screen Not Detected (Not Detect) U Marijuana (THC) Screen Not Detected (Not Detect) COVID-19 (ERIBERTO) Negative (Negative) COVID-19 Clin Com See Note 12/11/22 12/11/22 Range/Units 16:06 16:06 WBC 7.2 (4.8-10.8) X10*3/uL RBC 4.10 L (4.60-5.80) X10*6/uL Hgb 12.4 L (14.0-18.0) g/dl Hct 37.6 L (42.0-52.0) % MCV 91.7 (80.0-98.0) fL MCH 30.2 (27.0-33.0) pg MCHC 33.0 (31.0-36.0) g/dl RDW 13.5 (11.0-16.0) % Plt Count 235 (160-400) X10*3/uL MPV 10.1 (9.4-12.4) fL Immature Gran % (Auto) 0.8 H (0.0-0.4) % Neut % (Auto) 66.3 (45-73) % Lymph % (Auto) 20.1 (20-40) % [place] % (Auto) 10.6 (2-11) % Eos % (Auto) 1.8 (0-4) % Baso % (Auto) 0.4 (0-2) % Lymph # (Auto) 1.5 (1.2-4.9) X10*3/uL [place] # (Auto) 0.8 (0.1-1.2) X10*3/uL Eos # (Auto) 0.1 (0.0-0.4) X10*3/uL Baso # (Auto) 0.0 (0.0-0.2) X10*3/uL Abs Immat Gran (auto) 0.06 H (0.00-0.03) X10*3/uL Absolute Neuts (auto) 4.8 (2.0-8.3) x10*3/uL Absolute Nucleated RBC 0.000 (0.0-0.012) X10*3/uL Nucleated RBC % (auto) 0.0 (0.0-0.2) /100WBC Sodium 143 (135-145) mmol/L Potassium 4.6 (3.3-5.1) mmol/L Chloride 108 (96-108) mmol/L Carbon Dioxide 26 (22-29) mmol/L Anion Gap 14 (12-20) BUN 18 H (9-16) mg/dL Creatinine 1.05 (0.5-1.4) mg/dL Estim Creat Clear Calc 72.9 Estimated GFR > 60 Random Glucose 161 H (60-115) mg/dL Calcium 9.1 (8.4-10.2) mg/dL Total Bilirubin 0.5 (0.0-1.0) mg/dL Direct Bilirubin 0.2 (0.0-0.5) mg/dL AST 21 (5-37) U/L ALT 28 (0-40) U/L Alkaline Phosphatase 68 (39-117) U/L Total Protein 6.5 (6.5-8.0) g/dL Albumin 4.2 (3.5-5.0) g/dL Lipase 22 (8-78) U/L Urine Color Urine Appearance Urine pH (5.0-9.0) Ur Specific [place] (1.005-1.025) Urine Protein (Neg-Trace) mg/dL Urine Glucose (UA) (Negative) mg/dL Urine Ketones (Negative) mg/dL Urine Blood (Negative) Urine Nitrite (Negative) Ur Leukocyte Esterase (Negative) Urine Opiates Screen (Not Detect) Urine Fentanyl Screen (Not Detect) Ur Barbiturates Screen (Not Detect) Ur Phencyclidine Scrn (Not Detect) Ur Amphetamines Screen (Not Detect) U Benzodiazepines Scrn (Not Detect) Urine Cocaine Screen (Not Detect) U Marijuana (THC) Screen (Not Detect) COVID-19 (ERIBERTO) (Negative) COVID-19 Clin Com <Tremaine Turner MD - Last Filed: 12/13/22 08:03> Attestation Attending Attestation: I reviewed DRUG SAFETY SPECIALIST/PA/Resident note, assessment and plan. I agree with the documentation, assessment and plan unless otherwise stated. <Ander Farooq MD - Last Filed: 12/12/22 16:21> Critical Care Time Critical Care Time Critical Care Time: No <ANDREW Armenta - Last Filed: 12/11/22 17:44> Discharge Plan Discharge Clinical Impression: Disorganized behavior, Autism spectrum disorder, Neurocognitive disorder, Hypertension, Diabetes mellitus <ANDREW Armenta - Last Filed: 12/11/22 17:44> Patient Disposition: Still a Patient <ANDREW Armenta - Last Filed: 12/11/22 17:44> Prescriptions: No Action atorvastatin 80 mg tablet 80 mg PO DAILY mirtazapine 30 mg tablet,disintegrating 30 mg PO BEDTIME trazodone 50 mg tablet 25 mg PO BEDTIME PRN (Reason: Agitation) metoprolol succinate 50 mg tablet extended release 24 hr 50 mg PO DAILY lisinopril 20 mg tablet 20 mg PO DAILY melatonin 3 mg tablet 9 mg PO BEDTIME citalopram 20 mg tablet 20 mg PO DAILY olanzapine 20 mg tablet,disintegrating 20 mg PO BEDTIME ibuprofen 400 mg tablet 400 mg PO Q6-8H PRN (Reason: Pain) olanzapine 10 mg tablet,disintegrating 5 mg PO BID PRN (Reason: Agitation) gabapentin 300 mg capsule 600 mg PO TID gabapentin 100 mg capsule 100 mg PO TID PRN (Reason: Anxiety) mirtazapine 15 mg tablet,disintegrating 15 mg PO DAILY metformin 500 mg tablet extended release 24 hr 1,000 mg PO BID duloxetine 60 mg capsule,delayed release(DR/EC) 60 mg PO DAILY <ANDREW Armenta - Last Filed: 12/11/22 17:44> Interventions: [place]-Suicide Risk Severity Scale Last Done: 12/13/22 06:22 <ANDREW Armenta - Last Filed: 12/11/22 17:44>
[2022-12-11 16:05] LABS: Amphetamine Screen Urine Not Detected (Not Detect); Barbiturates, Urine Not Detected (Not Detect); Benzodiazepines Screen Urine Not Detected (Not Detect); Cannabinoid Screen Urine Not Detected (Not Detect); Cocaine Screen Urine Not Detected (Not Detect); Fentanyl, urine Not Detected (Not Detect); Opiate Screen Urine Not Detected (Not Detect); Phencyclidine Screen Urine Not Detected (Not Detect)
[2022-12-11 16:06] LABS: Appearance Urine Clear; Color Urine Yellow; Glucose Urine UA 500 mg/dL (Negative); Leukocyte Esterase Urine Negative (Negative); Nitrite Urine Negative (Negative); PH 5.5 (5.0-9.0); Specific Gravity - Urine >= 1.030 (1.005-1.025); Urine Blood Negative (Negative); Urine Ketones Trace mg/dL (Negative); Urine Protein Negative (Neg-Trace)
[2022-12-11 16:13] LABS: MANUAL DIFF FLAG NO
[2022-12-11 16:16] LABS: Basophils Percent Auto 0.4 % (0-2); Eosinophils Absolute Auto 0.1 X10*3/uL (0.0-0.4); Eosinophils Percent Auto 1.8 % (0-4); Hematocrit 37.6 % (42.0-52.0); Hemoglobin 12.4 g/dl (14.0-18.0); Imm Gran Abs Auto 0.06 X10*3/uL (0.00-0.03); Imm Gran Pct Auto 0.8 % (0.0-0.4); Lymphocytes Absolute Auto 1.5 X10*3/uL (1.2-4.9); Lymphocytes Percent Auto 20.1 % (20-40); Mean Corpuscular Hemoglobin 30.2 pg (27.0-33.0); Mean Corpuscular Volume 91.7 fL (80.0-98.0); Mean Platelet Volume 10.1 fL (9.4-12.4); Monocytes Absolute Auto 0.8 X10*3/uL (0.1-1.2); Monocytes Percent Auto 10.6 % (2-11); Neutrophils Absolute Auto 4.8 x10*3/uL (2.0-8.3); Neutrophils Percent Auto 66.3 % (45-73); Platelet Count 235 X10*3/uL (160-400); Red Cell Distribution Width 13.5 % (11.0-16.0); White Blood Count 7.2 X10*3/uL (4.8-10.8)
[2022-12-11 16:18] LABS: COVID-19 Test Negative (Negative); IDNOW Serial# 16C4AD1C
[2022-12-11 16:35] LABS: Alanine Aminotransferase 28 U/L (0-40); Albumin Level 4.2 g/dL (3.5-5.0); Alkaline Phosphatase 68 U/L (39-117); Anion Gap 14 (12-20); Aspartate Amino Transferase 21 U/L (5-37); Bilirubin Direct 0.2 mg/dL (0.0-0.5); Bilirubin Total 0.5 mg/dL (0.0-1.0); Blood Urea Nitrogen 18 mg/dL (9-16); Calcium 9.1 mg/dL (8.4-10.2); Carbon Dioxide 26 mmol/L (22-29); Chloride 108 mmol/L (96-108); Creatinine Clr Calc Pharmacy 72.9; Estimated Glomerular Filt Rate > 60; Glucose Random 161 mg/dL (60-115); Lipase 22 U/L (8-78); Potassium 4.6 mmol/L (3.3-5.1); Sodium 143 mmol/L (135-145); Total Protein 6.5 g/dL (6.5-8.0)
[2022-12-11] MEDS: Gabapentin 300 MG CAPSULE 600 MG PO (20:13)
[2022-12-11] MEDS: metFORMIN HCl ER 500 MG TAB.ER.24H 1000 MG PO (20:13)
[2022-12-11] MEDS: Melatonin 3 MG TABLET 9 MG PO (20:14)
[2022-12-11] MEDS: Mirtazapine 30 MG TABLET PO (20:14)
[2022-12-11] MEDS: OLANZapine ODT 10 MG TAB.RAPDIS 20 MG TRANSLINGU (20:14)
[2022-12-11] MEDS: LORazepam 2 MG/ML VIAL IM (21:20)
[2022-12-11] MEDS: Haloperidol Lactate 5 MG/ML VIAL IM (21:20)
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
--- NOTE | 2022-12-12 06:10 | PC.NURSE ---
Patient is S/P chemical restraint, slept through the night, no distress observed/reported, disposition per [facility] from community section 12 inpatient bed search, medication compliant, behavior unpredictable but non concerning, VSS, will continue to monitor.
[2022-12-12 06:42] VITALS: BP 116/65; PULSE 59; RESP 17; TEMP 36.7; O2SAT 98
--- NOTE | 2022-12-12 09:19 | PC.NURSE ---
patient currently sleeping
[2022-12-12 09:54] VITALS: BP 139/81; PULSE 84; RESP 16; TEMP 37.1; O2SAT 99
[2022-12-12] MEDS: Mirtazapine 15 MG TABLET PO (09:58)
[2022-12-12] MEDS: Escitalopram Oxalate 10 MG TABLET PO (09:59)
[2022-12-12] MEDS: Gabapentin 300 MG CAPSULE 600 MG PO ×3 (09:59→20:03)
[2022-12-12] MEDS: DULoxetine HCl 60 MG CAPSULE.DR PO (09:59)
[2022-12-12] MEDS: lisinopriL 20 MG TABLET PO (09:59)
[2022-12-12] MEDS: Metoprolol Succinate ER 50 MG TAB.ER.24H PO (09:59)
[2022-12-12] MEDS: Atorvastatin Calcium 80 MG TABLET PO (09:59)
[2022-12-12] MEDS: metFORMIN HCl ER 500 MG TAB.ER.24H 1000 MG PO ×2 (09:59→20:03)
--- NOTE | 2022-12-12 10:03 | PC.NURSE ---
Addendum entered by Nicole Hernandez RN 12/12/22 10:04: pt denies si/hi Original Note: patient awake/alert, vss, pt medicated per order, pt calm/cooperative at this time, will continue to monitor
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
--- NOTE | 2022-12-12 16:54 | PC.NURSE ---
report received from TAMMY Rivera pt resting comfortably in bed no signs of acute distress notice breathing equally unlabored
[2022-12-12] MEDS: Melatonin 3 MG TABLET 9 MG PO (20:04)
[2022-12-12] MEDS: OLANZapine ODT 10 MG TAB.RAPDIS 15 MG TRANSLINGU (20:05)
[2022-12-12 20:11] VITALS: BP 140/83; PULSE 75; RESP 18; TEMP 36.5; O2SAT 100
--- NOTE | 2022-12-13 06:23 | PC.NURSE ---
Patient slept through the night, no distress observed/reported, disposition per [facility] from [facility] section [facility] inpatient bed search, medication compliant, behavior non concerning, VSS, will continue to monitor.
[2022-12-13 06:30] VITALS: BP 165/101; PULSE 71; RESP 17; TEMP 37.2; O2SAT 99
--- NOTE | 2022-12-13 07:09 | PC.NURSE ---
assumed care of patient, pt resting comfortably, breakfast tray delivered, VSS, awaiting BH placement
[2022-12-13 07:16] VITALS: BP 148/94; PULSE 82; RESP 12; TEMP 36.4; O2SAT 97
[2022-12-13] MEDS: Escitalopram Oxalate 10 MG TABLET PO (07:20)
[2022-12-13] MEDS: Gabapentin 300 MG CAPSULE 600 MG PO ×3 (07:20→22:26)
[2022-12-13] MEDS: Metoprolol Succinate ER 50 MG TAB.ER.24H PO (07:20)
[2022-12-13] MEDS: DULoxetine HCl 60 MG CAPSULE.DR PO (07:21)
[2022-12-13] MEDS: lisinopriL 20 MG TABLET PO (07:21)
[2022-12-13] MEDS: metFORMIN HCl ER 500 MG TAB.ER.24H 1000 MG PO ×2 (07:21→22:25)
[2022-12-13] MEDS: Atorvastatin Calcium 80 MG TABLET PO (07:21)
[2022-12-13] MEDS: OLANZapine ODT 10 MG TAB.RAPDIS 5 MG TRANSLINGU ×2 (10:16→22:25)
--- NOTE | 2022-12-13 10:16 | PC.NURSE ---
patient expression anxiety r/t noise from outside of his room, given PRN zyprexa with juice. pt resting comfortably in bed, watching TV
[2022-12-13] MEDS: HaloperidoL 1 MG TABLET 2 MG PO ×2 (12:43→22:26)
[2022-12-13 13:40] LABS: C Reactive Protein 0.16 mg/dL (< or = 0.50)
[2022-12-13 13:57] LABS: Syphilis Screen Nonreactive (Nonreactive)
[2022-12-13 14:11] LABS: Folate 12.9 ng/mL (> or = 4.0); TSH reflex Free T4 0.68 uIU/mL (0.32-4.0); Vitamin B12 421 pg/mL (200-900)
--- NOTE | 2022-12-13 15:22 | PC.NURSE ---
RN to RN report given to M3
[2022-12-13 16:40] VITALS: BP 132/79; PULSE 88; RESP 18; TEMP 36.7; O2SAT 94
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
[2022-12-13] MEDS: OLANZapine ODT 10 MG TAB.RAPDIS 15 MG TRANSLINGU (22:23)
[2022-12-13 22:27] VITALS: BP 120/64; PULSE 73; RESP 18; TEMP 36.4; O2SAT 100
[2022-12-13] MEDS: hydrOXYzine HCL 25 MG TABLET PO (22:27)
[2022-12-13] MEDS: Gabapentin 100 MG CAPSULE PO (22:27)
[2022-12-13] MEDS: Melatonin 3 MG TABLET 9 MG PO (22:28)
[2022-12-14 06:00] VITALS: BP 118/75; PULSE 82; RESP 18; TEMP 36.6; O2SAT 98
[2022-12-14 07:27] LABS: Alanine Aminotransferase 23 U/L (0-40); Albumin Level 3.9 g/dL (3.5-5.0); Alkaline Phosphatase 67 U/L (39-117); Anion Gap 13 (12-20); Aspartate Amino Transferase 23 U/L (5-37); Bilirubin Total 0.8 mg/dL (0.0-1.0); Blood Urea Nitrogen 21 mg/dL (9-16); Calcium 9.1 mg/dL (8.4-10.2); Carbon Dioxide 26 mmol/L (22-29); Chloride 106 mmol/L (96-108); Cholesterol 120 mg/dL; Creatinine Clr Calc Pharmacy 72.2; Estimated Glomerular Filt Rate > 60; Glucose Fasting 146 mg/dL (60-99); HDL Cholesterol 32 mg/dL; LDL Cholesterol Calculated 65 mg/dl; Potassium 4.2 mmol/L (3.3-5.1); Sodium 141 mmol/L (135-145); Triglycerides 116 mg/dL
[2022-12-14] MEDS: metFORMIN HCl ER 500 MG TAB.ER.24H 1000 MG PO ×2 (09:49→22:05)
[2022-12-14] MEDS: lisinopriL 20 MG TABLET PO (09:49)
[2022-12-14] MEDS: Metoprolol Succinate ER 50 MG TAB.ER.24H PO (09:50)
[2022-12-14] MEDS: DULoxetine HCl 60 MG CAPSULE.DR PO (09:50)
[2022-12-14] MEDS: Gabapentin 300 MG CAPSULE 600 MG PO ×3 (09:50→22:04)
[2022-12-14] MEDS: HaloperidoL 1 MG TABLET 2 MG PO ×3 (09:50→22:04)
[2022-12-14] MEDS: Atorvastatin Calcium 80 MG TABLET PO (09:50)
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
[2022-12-14 22:00] VITALS: BP 101/60; PULSE 79; RESP 18; TEMP 36.6; O2SAT 100
[2022-12-14] MEDS: hydrOXYzine HCL 25 MG TABLET PO (22:04)
[2022-12-14] MEDS: Melatonin 3 MG TABLET 9 MG PO (22:05)
[2022-12-14] MEDS: Gabapentin 100 MG CAPSULE PO (22:05)
[2022-12-14] MEDS: OLANZapine ODT 10 MG TAB.RAPDIS 15 MG TRANSLINGU (22:05)
[2022-12-14] MEDS: OLANZapine ODT 10 MG TAB.RAPDIS 5 MG TRANSLINGU (22:08)
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
[2022-12-15 09:44] VITALS: BP 130/76; PULSE 80; RESP 18; TEMP 36.7; O2SAT 98
[2022-12-15 09:55] LABS: Glucose, Whole Blood 134 mg/dL (60-115)
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
[2022-12-15 17:37] VITALS: BP 140/97; PULSE 99; RESP 20; TEMP 36.8; O2SAT 99
[2022-12-15 22:03] VITALS: BP 156/95; PULSE 96; RESP 18; TEMP 36.6; O2SAT 97
[2022-12-16 06:00] VITALS: PULSE 98; RESP 16; O2SAT 100
--- NOTE | 2022-12-16 12:38 | PC.NURSE ---
Darcy, patient's ROT[employer] CA[employer]ING [employer]ACH[employer] SETUP OPERATOR, in to visit patient. Release signed by patient. Attempted to give AM medications w/ [employer] SETUP OPERATOR present w/ permission of provider. Patient continues to decline medications despite several attempts.
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
[2022-12-16] MEDS: HaloperidoL 1 MG TABLET 2 MG PO (14:27)
[2022-12-16 21:15] VITALS: BP 153/89; PULSE 105; TEMP 36.6; O2SAT 99
[2022-12-17 01:31] LABS: Glucose, Whole Blood 182 mg/dL (60-115)
--- NOTE | 2022-12-17 03:14 | PC.NURSE ---
Patient refused all of his HS medications and said it is too much, go away.
[2022-12-17 09:30] VITALS: BP 137/90; PULSE 97; RESP 20
[2022-12-17] MEDS: LORazepam 1 MG TABLET 2 MG PO (10:24)
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
--- NOTE | 2022-12-17 14:43 | PC.NURSE ---
Pt refused to eat breakfast and lunch meal today.
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
[2022-12-17] MEDS: OLANZapine 10 MG VIAL IM (21:22)
[2022-12-17] MEDS: LORazepam 2 MG/ML VIAL 1 MG IM (21:23)
[2022-12-17 21:36] VITALS: RESP 20
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
[2022-12-18 08:00] VITALS: RESP 18
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
[2022-12-18] MEDS: OLANZapine 10 MG VIAL IM (15:48)
[2022-12-18] MEDS: LORazepam 2 MG/ML VIAL IM ×2 (16:37→16:38)
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
--- NOTE | 2022-12-18 18:32 | PC.NURSE ---
Pt was moved in restraint chair, to be released. It was noted that the left wrist restraint strap became caught in the wheel. Pt's left wrist was released. When patient was lying in bed it was noted that he had Ecchymosis on left lateral hand.
[2022-12-19] VITALS (8 sets, daily range): BP systolic 125–173; BP diastolic 78–106; PULSE 102–122; RESP 20–24; TEMP 36.1–37.1; O2SAT 91–95
[2022-12-19] MEDS: LORazepam 2 MG/ML VIAL IM ×4 (03:45→20:39)
[2022-12-19] MEDS: OLANZapine 10 MG VIAL IM ×2 (03:45→17:20)
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
[2022-12-19] MEDS: Haloperidol Lactate 5 MG/ML VIAL IM (14:13)
[2022-12-19 14:37] LABS: MANUAL DIFF FLAG NO
[2022-12-19 14:42] LABS: Basophils Percent Auto 0.4 % (0-2); Eosinophils Percent Auto 0.4 % (0-4); Hematocrit 40.3 % (42.0-52.0); Hemoglobin 13.8 g/dl (14.0-18.0); Imm Gran Abs Auto 0.03 X10*3/uL (0.00-0.03); Imm Gran Pct Auto 0.4 % (0.0-0.4); Lymphocytes Absolute Auto 1.6 X10*3/uL (1.2-4.9); Lymphocytes Percent Auto 22.5 % (20-40); Mean Corpuscular HGB Conc 34.2 g/dl (31.0-36.0); Mean Corpuscular Hemoglobin 30.4 pg (27.0-33.0); Mean Corpuscular Volume 88.8 fL (80.0-98.0); Mean Platelet Volume 9.7 fL (9.4-12.4); Monocytes Absolute Auto 0.9 X10*3/uL (0.1-1.2); Monocytes Percent Auto 13.1 % (2-11); Neutrophils Absolute Auto 4.5 x10*3/uL (2.0-8.3); Neutrophils Percent Auto 63.2 % (45-73); Platelet Count 292 X10*3/uL (160-400); Red Blood Count 4.54 X10*6/uL (4.60-5.80); Red Cell Distribution Width 13.4 % (11.0-16.0); White Blood Count 7.2 X10*3/uL (4.8-10.8)
[2022-12-19 14:57] LABS: Alanine Aminotransferase 66 U/L (0-40); Albumin Level 4.5 g/dL (3.5-5.0); Alkaline Phosphatase 76 U/L (39-117); Anion Gap 18 (12-20); Aspartate Amino Transferase 79 U/L (5-37); Bilirubin Total 1.5 mg/dL (0.0-1.0); Blood Urea Nitrogen 17 mg/dL (9-16); Calcium 9.6 mg/dL (8.4-10.2); Carbon Dioxide 25 mmol/L (22-29); Chloride 105 mmol/L (96-108); Creatinine Clr Calc Pharmacy 52.8; Estimated Glomerular Filt Rate 49; Glucose Fasting 188 mg/dL (60-99); Potassium 4.2 mmol/L (3.3-5.1); Sodium 144 mmol/L (135-145); Total Protein 7.2 g/dL (6.5-8.0)
[2022-12-19] MEDS: 0.9 % Sodium Chloride 500 ML 999 ML IV ×4 (17:46→18:33)
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
[2022-12-19] MEDS: Haloperidol Lactate 5 MG/ML VIAL 10 MG IM (20:38)
[2022-12-19] MEDS: diphenhydrAMINE HCL 50 MG/ML VIAL IM (20:39)
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
--- NOTE | 2022-12-20 03:32 | PC.NURSE ---
Patient was releases from 4 point restraints at 2124. Patient had been calm and sleeping for about 20 minutes at this time. Nurse discontinued restraint.
[2022-12-20] MEDS: hydrOXYzine HCL 25 MG TABLET PO (08:11)
[2022-12-20] MEDS: OLANZapine ODT 10 MG TAB.RAPDIS 5 MG TRANSLINGU ×3 (08:11→21:40)
[2022-12-20] MEDS: LORazepam 1 MG TABLET PO ×4 (08:11→21:40)
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
[2022-12-20 08:30] VITALS: RESP 22
--- NOTE | 2022-12-20 09:39 | PC.NURSE ---
Linens changed, patient resting on floor. Offered some breakfast: yogurt, juice- patient accepted a few bites but then became agitated stating you don't care and squeezing TW hand with vigor.
--- NOTE | 2022-12-20 10:59 | PC.NURSE ---
Patient evaluated by hospitalist, resting at this time, resp unlabored. Water at bedside, will continue to encourage fluids. Patient toileted self x2, per staff.
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
--- NOTE | 2022-12-20 11:27 | PC.NURSE ---
Pt offered water, which he accepted. Continues to be focused on belongings, stating they had been removed from him. Resting in bed currently, but dropping himself to the ground at times; behavior appears to be connected to being overwhelmed, or angry. Continue to offer fluids, food, and toileting as able. No further episodes of incontinence.
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
--- NOTE | 2022-12-20 13:33 | PC.NURSE ---
Patient resting, resp unlabored. Offered fluids, lunch, patient awoke briefly, but did not drink or eat. 1:1 encouraged to offer fresh water when patient awakes, fresh water provided.
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
--- NOTE | 2022-12-20 16:06 | PC.NURSE ---
Pt resting, accepted fluids from A, I/O paperwork initiated.
--- NOTE | 2022-12-20 17:39 | PC.NURSE ---
Patient awake, shaking, states his teeth hurt. Offered a blanket, patient declined. Allowed temp: 98.3, but would not allowed vitals or POC. Patient offered scheduled medications zyprexa and ativan, pt accepted.
[2022-12-20 18:00] VITALS: PULSE 99; RESP 22; O2SAT 99
--- NOTE | 2022-12-20 18:39 | PC.NURSE ---
Awake, voided ~ 100 cc urine (dark yellow) ate one bite of dinner, drank 1/2 cranberry juice and sips of water. Agreed to change out of pants after attempting to swat water pitcher and spilling water on himself.
[2022-12-20] MEDS: Melatonin 3 MG TABLET 9 MG PO (21:40)
[2022-12-20] MEDS: Mirtazapine 15 MG TABLET PO (21:40)
[2022-12-21 06:00] VITALS: RESP 16
[2022-12-21] MEDS: hydrOXYzine HCL 25 MG TABLET PO ×2 (10:35→15:23)
[2022-12-21] MEDS: LORazepam 1 MG TABLET PO ×5 (10:35→19:56)
[2022-12-21] MEDS: OLANZapine ODT 10 MG TAB.RAPDIS TRANSLINGU ×2 (10:35→15:23)
[2022-12-21] MEDS: OLANZapine ODT 10 MG TAB.RAPDIS 5 MG TRANSLINGU ×4 (10:35→19:56)
[2022-12-21 13:30] VITALS: BP 144/82; PULSE 88; RESP 18; TEMP 36.9; O2SAT 98
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
[2022-12-21] MEDS: Melatonin 3 MG TABLET 9 MG PO (19:55)
[2022-12-21] MEDS: Mirtazapine 15 MG TABLET PO (19:56)
[2022-12-21 20:00] VITALS: RESP 20; TEMP 37; O2SAT 91
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
--- NOTE | 2022-12-22 00:19 | PC.NURSE ---
I+O FOR 12/20 INITIATED @ 1500: 1535 2 0Z 1730 2 0Z 1820 8 OZ 1835 VOIDED 2147 4 OZ SHERBET 2155 8 0Z CRANBERRY JUICE 2109 4 0Z ICE CREAM 2325 VOIDED I+O FOR 12/21 0800 VOIDED 1230 VOIDED 1600 VOIDED [id number] 40Z ICE CREAM 8 0Z CRANBERRY JUICE 3 MEAT BALLS, 1/2 SERVING SPAGHETTI, CHOCOLATE CAKE 6 0Z GINGERALE 4 OZ ICE CREAM 2030 VOIDED
[2022-12-22 06:00] VITALS: RESP 18
[2022-12-22] MEDS: OLANZapine ODT 10 MG TAB.RAPDIS TRANSLINGU ×2 (06:31→14:36)
[2022-12-22] MEDS: hydrOXYzine HCL 25 MG TABLET PO ×2 (06:31→14:36)
[2022-12-22] MEDS: LORazepam 1 MG TABLET PO ×4 (06:31→14:35)
--- NOTE | 2022-12-22 06:37 | PC.NURSE ---
I+O FOR am 12/22 0600 VOIDED 0615 4 OZ OJ 0630 2 OZ ICE CREAM
[2022-12-22] MEDS: OLANZapine ODT 10 MG TAB.RAPDIS 5 MG TRANSLINGU ×2 (08:14→14:35)
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
[2022-12-22 17:47] LABS: Anion Gap 18 (12-20); Blood Urea Nitrogen 13 mg/dL (9-16); Calcium 9.5 mg/dL (8.4-10.2); Carbon Dioxide 26 mmol/L (22-29); Chloride 102 mmol/L (96-108); Creatinine Clr Calc Pharmacy 61.7; Estimated Glomerular Filt Rate 59; Glucose Random 222 mg/dL (60-115); Potassium 3.8 mmol/L (3.3-5.1); Sodium 142 mmol/L (135-145)
[2022-12-22 17:48] LABS: Alanine Aminotransferase 68 U/L (0-40); Albumin Level 4.6 g/dL (3.5-5.0); Alkaline Phosphatase 86 U/L (39-117); Aspartate Amino Transferase 66 U/L (5-37); Bilirubin Direct 0.4 mg/dL (0.0-0.5); Bilirubin Total 1.4 mg/dL (0.0-1.0); Total Protein 7.4 g/dL (6.5-8.0)
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
[2022-12-22 22:00] VITALS: RESP 20
--- NOTE | 2022-12-22 22:10 | PC.NURSE ---
At 2[address] stepped into hallway, looked at female staff, dropped his pants and started masturbating while making sexual gestures. Staff quickly intervened directing Patient back to room immediately.
[2022-12-22] MEDS: diphenhydrAMINE HCL 50 MG/ML VIAL IM (22:50)
[2022-12-22] MEDS: Haloperidol Lactate 5 MG/ML VIAL 10 MG IM (22:50)
[2022-12-22] MEDS: LORazepam 2 MG/ML VIAL IM (22:50)
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
[2022-12-23 08:30] VITALS: RESP 22
--- NOTE | 2022-12-23 08:32 | PC.NURSE ---
Patient resting, resp unlabored. Met with management re: concerns regarding patient care, safety, and efficacy, provider contacted by management re: medication management.
[2022-12-23] MEDS: LORazepam 1 MG TABLET PO (09:01)
[2022-12-23] MEDS: OLANZapine ODT 10 MG TAB.RAPDIS 5 MG TRANSLINGU ×3 (09:01→16:55)
--- NOTE | 2022-12-23 09:05 | PC.NURSE ---
provider contacted regarding medication management. per provider: administer ordered medications at this time.
--- NOTE | 2022-12-23 09:06 | PC.NURSE ---
Pt resting, easily awakened- asked if he was willing to take medications as ordered, patient stated yes and accepted medications.
--- NOTE | 2022-12-23 09:11 | PC.NURSE ---
Attempted to take vitals, patient declined.
[2022-12-23] MEDS: Divalproex Sodium Sprinkles 125 MG CAP.DR.SPR 500 MG PO ×3 (10:08→16:56)
--- NOTE | 2022-12-23 10:28 | PC.NURSE ---
Pt OOB, voided x1, offered water, took sips, moved to room 319. On Constant Obs now per MD to reduce stimulation.
--- NOTE | 2022-12-23 12:12 | PC.NURSE ---
Patient resting in room, appears to be eating small amounts at times.
[2022-12-23] MEDS: clonazePAM 0.5 MG TABLET PO ×2 (12:55→16:56)
--- NOTE | 2022-12-23 13:01 | PC.NURSE ---
Pt resting, resp unlabored. Easily awakened, accepted medications and sips of water. No concerns reported.
--- NOTE | 2022-12-23 13:32 | PM.NEUROCN ---
History of Present Illness Data of Consult Service Date: 12/23/22 Primary Care Provider: Unknown Physician HPI Reason for consult: Encephalopathy 62 years old man who was asked to see for new onset of psychosis. He was not able to give me any history. According to the documentation in the chart, he carried underlying diagnosis of autism and was admitted with psychotic symptoms. He has been quite difficult and agitated and aggressive and mostly medicated. I went to see him this morning when he was sleeping and I was unable to wake him up. I went back few hours later and he was still did quite drowsy but I was able to wake him up. He barely spoke and minimally followed any commands. Review of Systems Review of Systems: Could not be done with him [facility] Past Medical History Medical History Diabetes mellitus Hypertension Social History Social History Household Members: None Housing: Apartment Do you presently have visiting nurse or other home services: Yes Alcohol intake: unknown Patient Tobacco Use Status: Never used Tobacco Smoked in Last 30 Days: No Use of substances other than those prescribed or required for medical reasons: No Currently Displaying Signs/Symptoms of Drug Intoxication Withdrawal: No Have you been hit, kicked, punched, or otherwise hurt by someone within the past year? If so, by whom?: No Do you feel safe in your current relationship?: No Current Relationship Is there a partner from a previous relationship who is making you feel unsafe now?: No Are you made to feel afraid or neglected: No Advance Directives: No Advance Directives Information Provided: No Do you have thoughts of harming others: None Do you have a plan to hurt others: No Plan Recently lost weight without trying: Yes How much weight loss: 24-33 pounds Eating poorly because of decreased appetite: Yes Nutrition screen score: 6 Poor oral hygiene: No service: No Sexual orientation: Don't Know Meds Allergies Allergy/AdvReac Type Severity Reaction Status Date / Time No Known Allergies Allergy Unverified 07/13/20 19:15 [No Known Allergies*] Active Medications: Current Medications Acetaminophen (Acetaminophen 325 Mg Tablet) 650 mg PO Q6H PRN PRN Reason: Headache/Pain Mild Scale (1-3) Al Hydroxide/Mg Hydroxide (Magnesium Hydrox/Alum Hydrox 30 Ml Oral.Susp) 30 ml PO Q6H PRN PRN Reason: Heartburn/Nausea Atorvastatin Calcium (Atorvastatin Calcium 80 Mg Tablet) 80 mg PO DAILY [facility] Last Admin: 12/23/22 09:25 Dose: Not Given Clonazepam (Clonazepam 0.5 Mg Tablet) 0.5 mg PO QID [facility] Last Admin: 12/23/22 12:55 Dose: 0.5 mg Divalproex Sodium (Divalproex Sodium Sprinkles 125 Mg Cap.) 500 mg PO QID [facility] Last Admin: 12/23/22 12:55 Dose: 500 mg Hydroxyzine HCl (Hydroxyzine Hcl 25 Mg Tablet) 25 mg PO Q6H PRN PRN Reason: Anxiety Last Admin: 12/22/22 14:36 Dose: 25 mg Lisinopril (Lisinopril 20 Mg Tablet) 20 mg PO DAILY [facility]; Protocol Last Admin: 12/23/22 09:25 Dose: Not Given Magnesium Hydroxide (Milk Of Magnesia 30 Ml Oral.Susp) 30 ml PO DAILY PRN PRN Reason: Constipation Melatonin (Melatonin 3 Mg Tablet) 9 mg PO BEDTIME [facility] Last Admin: 12/22/22 22:10 Dose: Not Given Metformin HCl (Metformin Hcl Er 500 Mg Tab.Er.24h) 1,000 mg PO BID [facility] Last Admin: 12/23/22 09:26 Dose: Not Given Metoprolol Succinate (Metoprolol Succinate Er 50 Mg Tab.Er.24h) 50 mg PO DAILY [facility]; Protocol Last Admin: 12/23/22 09:26 Dose: Not Given Mirtazapine (Mirtazapine 15 Mg Tablet) 15 mg PO BEDTIME [facility] Last Admin: 12/22/22 22:11 Dose: Not Given Olanzapine (Olanzapine Odt 10 Mg Tab.Rapdis) 10 mg TRANSLINGU Q6H PRN PRN Reason: Agitation Last Admin: 12/22/22 14:36 Dose: 10 mg Olanzapine (Olanzapine Odt 10 Mg Tab.Rapdis) 5 mg TRANSLINGU QID [facility] Last Admin: 12/23/22 12:54 Dose: 5 mg Trazodone HCl (Trazodone Hcl 50 Mg Tablet) 50 mg PO BEDTIME PRN PRN Reason: Insomnia Home Medications Medication Instructions Recorded Confirmed Last Taken Type atorvastatin 80 mg tablet 80 mg PO BEDTIME 12/11/22 12/13/22 Unknown History citalopram 20 mg tablet 20 mg PO BID 12/11/22 12/13/22 Unknown History duloxetine 60 mg capsule,delayed 60 mg PO BEDTIME 12/11/22 12/13/22 Unknown History release gabapentin 100 mg capsule 100 mg PO TID PRN Anxiety 12/11/22 12/11/22 Unknown History gabapentin 300 mg capsule 600 mg PO BID 12/11/22 12/13/22 Unknown History ibuprofen 400 mg tablet 400 mg PO Q6-8H PRN Pain 12/11/22 12/13/22 Unknown History lisinopril 20 mg tablet 20 mg PO DAILY 12/11/22 12/11/22 Unknown History melatonin 3 mg tablet 9 mg PO BEDTIME 12/11/22 12/11/22 Unknown History metformin 500 mg tablet,extended 1,000 mg PO BID 12/11/22 12/11/22 Unknown History release 24 hr metoprolol succinate 50 mg 50 mg PO DAILY 12/11/22 12/11/22 Unknown History tablet,extended release 24 hr mirtazapine 15 mg disintegrating 15 mg PO DAILY 12/11/22 12/11/22 Unknown History tablet mirtazapine 30 mg disintegrating 30 mg PO BEDTIME 12/11/22 12/11/22 Unknown History tablet olanzapine 10 mg disintegrating 5 mg PO BID PRN Agitation 12/11/22 12/11/22 Unknown History tablet olanzapine 20 mg disintegrating 20 mg PO BEDTIME 12/11/22 12/11/22 Unknown History tablet trazodone 50 mg tablet 25 mg PO BEDTIME PRN Insomnia 12/11/22 12/11/22 Unknown History lisinopril 20 mg PO DAILY 12/13/22 12/13/22 Unknown History Physical Exam Vital Signs: Vital Signs: Last Vital Signs Temp 98.6 F 12/21/22 20:00 Pulse 88 12/21/22 13:30 Resp 22 H 12/23/22 08:30 BP 144/82 H 12/21/22 13:30 Pulse Ox 91 L 12/21/22 20:00 O2 Del Method 12/21/22 20:00 BMI result Body Mass Index 26.6 Neuro: Other: In his bed on the side curled up. Not responsive to repeated questioning but ultimately when I asked him if his body was hurting he said that yes. When I ask him where was it hurting, he extended his leg but then also slid down from the bed. I was able to hold him and after a minute or 2 he put himself back in the bed. He did not open his eyes. I could not completely see his face. He was on his side. There were no abnormal movements or posturing. Deep tendon reflexes were absent with flat plantars. Exam was limited. Results Labs 12/19/22 14:35 12/22/22 16:57 Labs: BMP 12/22/22 16:57 Sodium 142 Potassium 3.8 Chloride 102 Carbon Dioxide 26 BUN 13 Creatinine 1.24 Calcium 9.5 Cardiac Enzymes 12/22/22 Range/Units 16:57 Total Creatine Kinase 1165 H (38-174) U/L Liver Function 12/22/22 Range/Units 16:57 Total Bilirubin 1.4 H (0.0-1.0) mg/dL Direct Bilirubin 0.4 (0.0-0.5) mg/dL AST 66 H (5-37) U/L ALT 68 H (0-40) U/L Alkaline Phosphatase 86 (39-117) U/L Albumin 4.6 (3.5-5.0) g/dL Head CT revealed moderate bifrontal temporal atrophy. Assessment and Plan (1) Encephalopathy: Status: Acute 62 years old man with limited evaluation because of lack of cooperation from the patient. I did not see any overt parkinsonian features or signs suggestive of a fixed lesion in brain. His head CT revealed bilateral frontotemporal atrophy. Patients with this type of finding usually have behavioral symptomatology including a rational or aggressive behavior. If this finding was present in a person with no previous indication of neuropsychiatric disease, it could suggest evolving degenerative frontotemporal dementia. But in a patient with previous behavioral symptomatology specially starting in younger age, it might suggest a neuropsychiatric disorder with genetic origin. Treatment in either case is symptomatic. High CPK level might be related to physical aggression. Appropriate hydration is recommended. Time Spent With Patient Time: Total time managing care of this patient today ____ minutes. Procedures Date of Service Date of Service: 12/23/22
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
[2022-12-23] MEDS: diphenhydrAMINE HCL 50 MG/ML VIAL IM (15:12)
[2022-12-23] MEDS: Haloperidol Lactate 5 MG/ML VIAL 10 MG IM (15:12)
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
--- NOTE | 2022-12-23 16:51 | PC.NURSE ---
Patient awake, alert, walking out of room, rolled self onto floor and then agreed to get back onto bed. Reviewed 1700 medications w/ provider- patient to receive all medications as scheduled.
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
--- NOTE | 2022-12-23 18:32 | PC.NURSE ---
Pt resting, resp unlabored.
[2022-12-23 22:45] VITALS: RESP 20
[2022-12-24] MEDS: clonazePAM 0.5 MG TABLET PO ×3 (08:14→17:30)
[2022-12-24] MEDS: OLANZapine ODT 10 MG TAB.RAPDIS 5 MG TRANSLINGU ×3 (08:14→17:28)
[2022-12-24] MEDS: Divalproex Sodium Sprinkles 125 MG CAP.DR.SPR 500 MG PO ×3 (08:15→17:29)
--- NOTE | 2022-12-24 08:24 | PC.NURSE ---
Pt resting, easily awakened, offered medications, patient accepted, and drank several sips of water. Resp unlabored. Unable to obtain full set of vitals.
[2022-12-24 08:25] VITALS: RESP 18
[2022-12-24 09:51] LABS: Anion Gap 15 (12-20); Blood Urea Nitrogen 13 mg/dL (9-16); Carbon Dioxide 28 mmol/L (22-29); Chloride 104 mmol/L (96-108); Estimated Glomerular Filt Rate > 60; Glucose Random 151 mg/dL (60-115); Potassium 3.7 mmol/L (3.3-5.1); Sodium 143 mmol/L (135-145)
--- NOTE | 2022-12-24 11:04 | PC.NURSE ---
Patient out of room several times, occasionally posturing, charging at staff, redirected to room. Reviewed current behaviors in team with providers. Pt currently resting.
--- NOTE | 2022-12-24 11:43 | PM.EVENT ---
Event Note Date of Service: 12/24/22 Event Note: JEREMÍAS has resolved with IVF and PO fluids. Renal function baseline. CK remains elevated at 1270, down from 1603. Suspect atorvastatin is likely contributing. Discontinue atorvastatin. Repeat CK in 2-3 days. Consider adding pravastatin once CK normal given his diabetes to manage cholesterol, goal LDL <70, as pravastatin is likely to cause myelopathy. Time Spent With Patient Time: Total time managing care of this patient today ____ minutes.
--- NOTE | 2022-12-24 13:15 | PC.NURSE ---
Patient ate breakfast, appears increasingly willing to eat and drink. MISTY Taveras called to request a photograph of patient's wallet and keys, in order to try to reassure him.
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
[2022-12-24 13:43] VITALS: BP 153/100; PULSE 110; RESP 18; O2SAT 92
[2022-12-24 13:47] LABS: Glucose, Whole Blood 189 mg/dL (60-115)
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
[2022-12-24 21:00] VITALS: BP 142/93; PULSE 111; RESP 18; TEMP 36.7; O2SAT 97
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
[2022-12-25] MEDS: clonazePAM 0.5 MG TABLET PO ×2 (13:52→20:24)
[2022-12-25] MEDS: OLANZapine ODT 10 MG TAB.RAPDIS 5 MG TRANSLINGU ×2 (13:52→20:24)
[2022-12-25] MEDS: Divalproex Sodium Sprinkles 125 MG CAP.DR.SPR 500 MG PO (13:53)
[2022-12-25 20:08] VITALS: BP 178/113; PULSE 105; RESP 18; TEMP 36.6; O2SAT 98
[2022-12-25] MEDS: cloNIDine HCL 0.1 MG TABLET PO (20:23)
[2022-12-25 22:30] VITALS: RESP 18
[2022-12-26] MEDS: OLANZapine ODT 10 MG TAB.RAPDIS 5 MG TRANSLINGU ×3 (10:35→17:56)
[2022-12-26] MEDS: Divalproex Sodium Sprinkles 125 MG CAP.DR.SPR 500 MG PO ×4 (10:35→22:37)
[2022-12-26] MEDS: Metoprolol Succinate ER 50 MG TAB.ER.24H PO (10:36)
[2022-12-26] MEDS: metFORMIN HCl ER 500 MG TAB.ER.24H 1000 MG PO (10:36)
[2022-12-26] MEDS: lisinopriL 20 MG TABLET PO (10:36)
[2022-12-26] MEDS: clonazePAM 0.5 MG TABLET PO ×3 (10:37→17:57)
[2022-12-26 11:34] VITALS: BP 135/93; PULSE 94; RESP 18; TEMP 36.7; O2SAT 95
[2022-12-26 12:17] VITALS: BMI 26.8
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
[2022-12-27] MEDS: Divalproex Sodium Sprinkles 125 MG CAP.DR.SPR 500 MG PO ×4 (08:44→21:50)
[2022-12-27] MEDS: OLANZapine ODT 10 MG TAB.RAPDIS 5 MG TRANSLINGU ×4 (08:45→21:49)
[2022-12-27] MEDS: clonazePAM 0.5 MG TABLET PO ×4 (08:45→21:49)
[2022-12-27 11:20] VITALS: RESP 20
--- NOTE | 2022-12-27 11:20 | PC.NURSE ---
Pt is sleeping , Respirations are 20. close observation staff sitting outside room.
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
[2022-12-27 20:25] VITALS: RESP 18
[2022-12-27] MEDS: OLANZapine ODT 10 MG TAB.RAPDIS TRANSLINGU (21:49)
[2022-12-27] MEDS: Mirtazapine 15 MG TABLET PO (21:49)
[2022-12-28] MEDS: OLANZapine ODT 10 MG TAB.RAPDIS 5 MG TRANSLINGU (10:06)
[2022-12-28] MEDS: Divalproex Sodium Sprinkles 125 MG CAP.DR.SPR 500 MG PO ×3 (10:06→22:15)
[2022-12-28] MEDS: clonazePAM 0.5 MG TABLET PO ×2 (10:06→22:14)
[2022-12-28] MEDS: metFORMIN HCl ER 500 MG TAB.ER.24H 1000 MG PO (10:07)
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
[2022-12-28] MEDS: OLANZapine 10 MG TABLET PO (22:14)
[2022-12-28] MEDS: Mirtazapine 15 MG TABLET PO (22:15)
[2022-12-28 22:36] VITALS: RESP 18
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
[2022-12-29 07:35] LABS: MANUAL DIFF FLAG NO
[2022-12-29 07:39] LABS: Basophils Percent Auto 0.3 % (0-2); Eosinophils Absolute Auto 0.1 X10*3/uL (0.0-0.4); Eosinophils Percent Auto 1.1 % (0-4); Hematocrit 37.4 % (42.0-52.0); Hemoglobin 12.5 g/dl (14.0-18.0); Imm Gran Abs Auto 0.04 X10*3/uL (0.00-0.03); Imm Gran Pct Auto 0.6 % (0.0-0.4); Lymphocytes Absolute Auto 1.8 X10*3/uL (1.2-4.9); Lymphocytes Percent Auto 27.9 % (20-40); Mean Corpuscular HGB Conc 33.4 g/dl (31.0-36.0); Mean Corpuscular Hemoglobin 30.2 pg (27.0-33.0); Mean Corpuscular Volume 90.3 fL (80.0-98.0); Mean Platelet Volume 10.2 fL (9.4-12.4); Monocytes Absolute Auto 0.9 X10*3/uL (0.1-1.2); Monocytes Percent Auto 14.3 % (2-11); Neutrophils Absolute Auto 3.5 x10*3/uL (2.0-8.3); Neutrophils Percent Auto 55.8 % (45-73); Platelet Count 219 X10*3/uL (160-400); Red Blood Count 4.14 X10*6/uL (4.60-5.80); Red Cell Distribution Width 13.3 % (11.0-16.0); White Blood Count 6.3 X10*3/uL (4.8-10.8)
[2022-12-29 07:55] LABS: Estimated Average Glucose 151 mg/dL; Hemoglobin A1c % 6.9 %
[2022-12-29 07:57] LABS: Valproate 54.2 mcg/mL (50.0-100.0)
[2022-12-29 08:10] LABS: Alanine Aminotransferase 27 U/L (0-40); Albumin Level 3.5 g/dL (3.5-5.0); Alkaline Phosphatase 59 U/L (39-117); Anion Gap 14 (12-20); Aspartate Amino Transferase 23 U/L (5-37); Bilirubin Total 0.5 mg/dL (0.0-1.0); Blood Urea Nitrogen 16 mg/dL (9-16); Calcium 8.8 mg/dL (8.4-10.2); Carbon Dioxide 27 mmol/L (22-29); Chloride 103 mmol/L (96-108); Creatinine Clr Calc Pharmacy 78.9; Estimated Glomerular Filt Rate > 60; Glucose Fasting 180 mg/dL (60-99); Potassium 4.2 mmol/L (3.3-5.1); Sodium 140 mmol/L (135-145); Total Protein 5.7 g/dL (6.5-8.0)
[2022-12-29 09:16] VITALS: BP 139/72; PULSE 88; RESP 16; TEMP 36.7; O2SAT 98
[2022-12-29 09:17] LABS: Glucose, Whole Blood 167 mg/dL (60-115)
[2022-12-29] MEDS: Divalproex Sodium Sprinkles 125 MG CAP.DR.SPR 500 MG PO (09:33)
[2022-12-29] MEDS: Metoprolol Succinate ER 50 MG TAB.ER.24H PO (09:33)
[2022-12-29] MEDS: metFORMIN HCl ER 500 MG TAB.ER.24H 1000 MG PO (09:33)
[2022-12-29] MEDS: lisinopriL 20 MG TABLET PO (09:33)
[2022-12-29] MEDS: OLANZapine ODT 10 MG TAB.RAPDIS 5 MG TRANSLINGU (09:34)
--- NOTE | 2022-12-29 13:57 | PC.NURSE ---
Pt was sedated this am and slept through his breakfast despite 3 attempts to awaken. Pt awoke for lunch eating only a sandwich. Pt urinated x1 and moved his bowels. Pt seen by HATTIE, sitting for approx. 5 minutes not responding to MD. Pt then stood up and stated, I don't want to talk to this richard and returned to his room.
[2022-12-29] MEDS: Divalproex Sodium Sprinkles 125 MG CAP.DR.SPR 625 MG PO ×2 (15:53→20:40)
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
[2022-12-29 20:30] VITALS: BP 119/74; PULSE 76; RESP 18; TEMP 36.7; O2SAT 99
[2022-12-29] MEDS: OLANZapine 10 MG TABLET PO (20:40)
[2022-12-29] MEDS: clonazePAM 0.5 MG TABLET PO (20:40)
[2022-12-30 08:00] VITALS: RESP 20
[2022-12-30] MEDS: Divalproex Sodium Sprinkles 125 MG CAP.DR.SPR 625 MG PO ×3 (08:13→21:28)
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
[2022-12-30] MEDS: OLANZapine 10 MG TABLET PO (21:28)
[2022-12-30] MEDS: clonazePAM 0.5 MG TABLET PO (21:28)
[2022-12-31] MEDS: Divalproex Sodium Sprinkles 125 MG CAP.DR.SPR 625 MG PO ×2 (08:46→14:09)
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
[2022-12-31] MEDS: OLANZapine ODT 10 MG TAB.RAPDIS 5 MG TRANSLINGU (15:10)
[2022-12-31] MEDS: hydrOXYzine HCL 25 MG TABLET PO (15:10)
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
[2022-12-31] MEDS: chlorproMAZINE HCl 25 MG/ML AMPUL 100 MG IM (15:58)
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
[2022-12-31 17:13] VITALS: RESP 20
--- NOTE | 2022-12-31 17:17 | PC.NURSE ---
Pt sleeping due to earlier Thorazine injection. Dr ellis aware. ok to hold 1700 Depakote and Zyprexa via tiger text .
[2022-12-31 17:51] LABS: Ammonia 30 umol/L (13-55)
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
[2022-12-31 18:42] VITALS: RESP 20
--- NOTE | 2022-12-31 18:43 | PC.NURSE ---
Pt is in prone position in his bed, He appears to be sleeping , respirations 20/min .
[2022-12-31 18:45] VITALS: BP 133/78; PULSE 106; RESP 20; TEMP 36.8; O2SAT 98
[2022-12-31 19:28] VITALS: RESP 20
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
[2022-12-31] MEDS: clonazePAM 0.5 MG TABLET 0.25 MG PO (20:52)
[2022-12-31] MEDS: OLANZapine 5 MG TABLET PO (20:53)
[2022-12-31] MEDS: Melatonin 3 MG TABLET 9 MG PO (20:53)
[2022-12-31] MEDS: Mirtazapine 30 MG TABLET PO (20:53)
[2022-12-31 21:01] VITALS: BP 173/87; PULSE 110; TEMP 36.6; O2SAT 96
[2022-12-31 22:45] VITALS: BP 145/84; PULSE 110
[2023-01-01 06:00] VITALS: RESP 16
[2023-01-01] MEDS: Divalproex Sodium Sprinkles 125 MG CAP.DR.SPR 375 MG PO ×5 (08:58→21:29)
[2023-01-01] MEDS: OLANZapine 5 MG TABLET PO ×4 (08:58→21:25)
[2023-01-01] MEDS: Sertraline HCL 50 MG TABLET PO (08:58)
[2023-01-01] MEDS: hydrOXYzine HCL 25 MG TABLET PO (12:33)
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
[2023-01-01] MEDS: clonazePAM 0.5 MG TABLET 0.25 MG PO (21:25)
[2023-01-01] MEDS: Mirtazapine 30 MG TABLET PO (21:26)
[2023-01-01] MEDS: Melatonin 3 MG TABLET 9 MG PO (21:27)
[2023-01-01 21:36] VITALS: BP 194/90; PULSE 110; TEMP 36.4; O2SAT 99
[2023-01-02] MEDS: OLANZapine ODT 10 MG TAB.RAPDIS 5 MG TRANSLINGU (01:43)
[2023-01-02] MEDS: traZODone HCL 50 MG TABLET PO (01:43)
[2023-01-02] MEDS: Divalproex Sodium Sprinkles 125 MG CAP.DR.SPR 375 MG PO ×5 (08:31→21:05)
[2023-01-02] MEDS: Sertraline HCL 50 MG TABLET PO (08:32)
[2023-01-02] MEDS: OLANZapine 5 MG TABLET PO ×2 (08:32→12:51)
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
[2023-01-02] MEDS: metFORMIN HCl ER 500 MG TAB.ER.24H 1000 MG PO (14:01)
[2023-01-02] MEDS: lisinopriL 20 MG TABLET PO (14:01)
[2023-01-02] MEDS: Metoprolol Succinate ER 50 MG TAB.ER.24H PO (14:02)
[2023-01-02 14:13] VITALS: BP 116/65; PULSE 104; TEMP 36.7; O2SAT 98
[2023-01-02 14:16] LABS: Glucose, Whole Blood 310 mg/dL (60-115)
--- NOTE | 2023-01-02 14:19 | PC.NURSE ---
Dr Abel informed of POC 301 No further orders
[2023-01-02] MEDS: OLANZapine 2.5 MG TABLET PO ×2 (16:57→21:05)
[2023-01-02] MEDS: clonazePAM 0.5 MG TABLET 0.25 MG PO (21:04)
[2023-01-02] MEDS: OLANZapine 10 MG TABLET PO (21:05)
[2023-01-02] MEDS: Mirtazapine 30 MG TABLET PO (21:06)
[2023-01-03] MEDS: traZODone HCL 50 MG TABLET PO (01:28)
[2023-01-03] MEDS: Acetaminophen 325 MG TABLET 650 MG PO (01:29)
[2023-01-03 08:30] VITALS: BP 116/59; PULSE 68; RESP 16; TEMP 36.9; O2SAT 100
[2023-01-03] MEDS: Divalproex Sodium Sprinkles 125 MG CAP.DR.SPR 375 MG PO ×5 (08:30→21:11)
[2023-01-03] MEDS: OLANZapine 2.5 MG TABLET PO ×4 (08:31→21:11)
[2023-01-03] MEDS: Sertraline HCL 50 MG TABLET PO (08:31)
[2023-01-03 09:12] LABS: Glucose, Whole Blood 201 mg/dL (60-115)
[2023-01-03] MEDS: Metoprolol Succinate ER 50 MG TAB.ER.24H PO (09:50)
[2023-01-03] MEDS: metFORMIN HCl ER 500 MG TAB.ER.24H 1000 MG PO ×2 (09:51→21:11)
[2023-01-03] MEDS: lisinopriL 20 MG TABLET PO (09:51)
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
[2023-01-03] MEDS: clonazePAM 0.5 MG TABLET 0.25 MG PO (21:08)
[2023-01-03] MEDS: Mirtazapine 30 MG TABLET PO (21:11)
[2023-01-03] MEDS: OLANZapine 10 MG TABLET PO (21:11)
[2023-01-03] MEDS: Melatonin 3 MG TABLET 9 MG PO (21:12)
[2023-01-03 21:25] VITALS: BP 111/60; PULSE 58; TEMP 37.1; O2SAT 100
[2023-01-04 08:12] LABS: Glucose, Whole Blood 208 mg/dL (60-115)
[2023-01-04] MEDS: Divalproex Sodium Sprinkles 125 MG CAP.DR.SPR 375 MG PO ×5 (09:07→20:34)
[2023-01-04] MEDS: OLANZapine 2.5 MG TABLET PO ×4 (09:07→20:34)
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
[2023-01-04 19:40] VITALS: BP 136/72; PULSE 85; RESP 20; TEMP 36.6; O2SAT 100
[2023-01-04] MEDS: OLANZapine 10 MG TABLET PO (20:34)
[2023-01-04] MEDS: Mirtazapine 30 MG TABLET PO ×2 (20:34→20:38)
[2023-01-04] MEDS: clonazePAM 0.5 MG TABLET 0.25 MG PO (20:34)
[2023-01-04] MEDS: Melatonin 3 MG TABLET 9 MG PO (20:36)
[2023-01-04] MEDS: metFORMIN HCl ER 500 MG TAB.ER.24H 1000 MG PO (20:38)
[2023-01-05 08:48] LABS: Glucose, Whole Blood 186 mg/dL (60-115)
[2023-01-05] MEDS: Divalproex Sodium Sprinkles 125 MG CAP.DR.SPR 375 MG PO ×5 (09:14→23:19)
[2023-01-05] MEDS: OLANZapine 2.5 MG TABLET PO ×4 (09:15→23:19)
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
[2023-01-05 22:50] VITALS: BP 133/81; PULSE 86; RESP 18; TEMP 36.7; O2SAT 99
[2023-01-05] MEDS: OLANZapine 10 MG TABLET PO (23:19)
[2023-01-05] MEDS: Mirtazapine 30 MG TABLET PO (23:20)
[2023-01-06] MEDS: traZODone HCL 50 MG TABLET PO ×3 (00:37→23:37)
[2023-01-06 08:21] LABS: Glucose, Whole Blood 173 mg/dL (60-115)
[2023-01-06 08:48] LABS: Creatinine Clr Calc Pharmacy 76.5; Estimated Glomerular Filt Rate > 60
[2023-01-06] MEDS: Divalproex Sodium Sprinkles 125 MG CAP.DR.SPR 375 MG PO ×5 (09:22→22:32)
[2023-01-06] MEDS: metFORMIN HCl ER 500 MG TAB.ER.24H 1000 MG PO (09:22)
[2023-01-06] MEDS: Sertraline HCL 50 MG TABLET PO (09:22)
[2023-01-06] MEDS: Metoprolol Succinate ER 50 MG TAB.ER.24H PO (09:22)
[2023-01-06] MEDS: lisinopriL 20 MG TABLET PO (09:22)
[2023-01-06] MEDS: OLANZapine 2.5 MG TABLET PO ×4 (09:22→22:33)
[2023-01-06 09:47] VITALS: BP 119/63; PULSE 73; RESP 18; TEMP 36.7; O2SAT 97
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
[2023-01-06] MEDS: hydrOXYzine HCL 25 MG TABLET PO (14:07)
[2023-01-06 22:25] VITALS: RESP 18
[2023-01-06] MEDS: OLANZapine ODT 10 MG TAB.RAPDIS TRANSLINGU (22:33)
[2023-01-06] MEDS: Mirtazapine 30 MG TABLET PO (22:33)
[2023-01-07] MEDS: OLANZapine ODT 10 MG TAB.RAPDIS 5 MG TRANSLINGU (02:09)
[2023-01-07 09:21] LABS: Glucose, Whole Blood 293 mg/dL (60-115)
[2023-01-07] MEDS: metFORMIN HCl ER 500 MG TAB.ER.24H 1000 MG PO ×2 (09:23→22:14)
[2023-01-07] MEDS: OLANZapine 2.5 MG TABLET PO ×4 (09:24→22:14)
[2023-01-07] MEDS: Divalproex Sodium Sprinkles 125 MG CAP.DR.SPR 375 MG PO ×5 (09:24→22:15)
[2023-01-07] MEDS: Sertraline HCL 50 MG TABLET PO (09:24)
[2023-01-07] MEDS: Metoprolol Succinate ER 50 MG TAB.ER.24H PO (09:25)
[2023-01-07] MEDS: lisinopriL 20 MG TABLET PO (09:25)
[2023-01-07 09:28] VITALS: BP 123/72; PULSE 73; RESP 18; TEMP 36.6; O2SAT 97
--- NOTE | 2023-01-07 14:08 | MHC.CLN ---
NUTRITION PER DISCUSSION WITH NURSING, PATIENT IS EATING WELL AND OK TO DISCONTINUE GLUCERNA SUPPLEMENT. GLUCERNA TID DISCONTINUED.
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
[2023-01-07 20:20] VITALS: BP 115/59; PULSE 68; RESP 16; TEMP 36.7; O2SAT 97
[2023-01-07] MEDS: Mirtazapine 30 MG TABLET PO (22:13)
[2023-01-07] MEDS: OLANZapine ODT 10 MG TAB.RAPDIS TRANSLINGU (22:14)
[2023-01-07] MEDS: Melatonin 3 MG TABLET 9 MG PO (22:14)
[2023-01-08 08:12] LABS: Glucose, Whole Blood 135 mg/dL (60-115)
[2023-01-08 08:19] VITALS: BP 108/54; PULSE 60; RESP 18; TEMP 36.7; O2SAT 97
[2023-01-08] MEDS: Sertraline HCL 50 MG TABLET PO (09:09)
[2023-01-08] MEDS: Divalproex Sodium Sprinkles 125 MG CAP.DR.SPR 375 MG PO ×6 (09:09→20:38)
[2023-01-08] MEDS: OLANZapine 2.5 MG TABLET PO ×4 (09:09→20:25)
[2023-01-08] MEDS: lisinopriL 20 MG TABLET PO (09:10)
[2023-01-08] MEDS: metFORMIN HCl ER 500 MG TAB.ER.24H 1000 MG PO ×2 (09:10→20:34)
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
[2023-01-08] MEDS: hydrOXYzine HCL 25 MG TABLET PO (16:11)
[2023-01-08 20:25] LABS: Alanine Aminotransferase 19 U/L (0-40); Alkaline Phosphatase 66 U/L (39-117); Anion Gap 17 (12-20); Aspartate Amino Transferase 16 U/L (5-37); Bilirubin Direct < 0.2 mg/dL (0.0-0.5); Bilirubin Total 0.2 mg/dL (0.0-1.0); Blood Urea Nitrogen 26 mg/dL (9-16); Calcium 9.2 mg/dL (8.4-10.2); Carbon Dioxide 29 mmol/L (22-29); Chloride 100 mmol/L (96-108); Creatinine Clr Calc Pharmacy 60.3; Estimated Glomerular Filt Rate 57; Glucose Random 200 mg/dL (60-115); Potassium 4.9 mmol/L (3.3-5.1); Sodium 141 mmol/L (135-145); Total Protein 6.6 g/dL (6.5-8.0)
[2023-01-08] MEDS: Mirtazapine 30 MG TABLET PO (20:25)
[2023-01-08] MEDS: OLANZapine ODT 10 MG TAB.RAPDIS TRANSLINGU (20:25)
[2023-01-08] MEDS: Melatonin 3 MG TABLET 9 MG PO (20:25)
[2023-01-08 20:30] VITALS: BP 107/59; PULSE 81; RESP 18; TEMP 36.6; O2SAT 97
[2023-01-08 21:12] LABS: Valproate 55.4 mcg/mL (50.0-100.0)
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
[2023-01-09] MEDS: lisinopriL 20 MG TABLET PO (08:58)
[2023-01-09] MEDS: OLANZapine 2.5 MG TABLET PO ×4 (08:58→21:44)
[2023-01-09] MEDS: metFORMIN HCl ER 500 MG TAB.ER.24H 1000 MG PO ×2 (08:58→21:44)
[2023-01-09] MEDS: Metoprolol Succinate ER 50 MG TAB.ER.24H PO (08:58)
[2023-01-09] MEDS: Sertraline HCL 50 MG TABLET PO (08:58)
[2023-01-09] MEDS: Divalproex Sodium Sprinkles 125 MG CAP.DR.SPR 375 MG PO ×2 (08:58→12:25)
[2023-01-09 09:00] VITALS: BP 130/83; PULSE 76; RESP 16; TEMP 36.7; O2SAT 98
[2023-01-09 09:13] LABS: Glucose, Whole Blood 116 mg/dL (60-115)
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
[2023-01-09] MEDS: Melatonin 3 MG TABLET 9 MG PO (21:44)
[2023-01-09] MEDS: Divalproex Sodium ER 500 MG TAB.ER.24H 2000 MG PO (21:44)
[2023-01-09] MEDS: Mirtazapine 30 MG TABLET PO (21:44)
[2023-01-09] MEDS: OLANZapine ODT 10 MG TAB.RAPDIS TRANSLINGU (21:45)
[2023-01-10] MEDS: hydrOXYzine HCL 25 MG TABLET PO (06:41)
[2023-01-10] MEDS: OLANZapine ODT 10 MG TAB.RAPDIS 5 MG TRANSLINGU (07:01)
[2023-01-10] MEDS: Sertraline HCL 50 MG TABLET PO (09:22)
[2023-01-10] MEDS: OLANZapine 2.5 MG TABLET PO ×4 (09:22→20:55)
[2023-01-10] MEDS: Metoprolol Succinate ER 50 MG TAB.ER.24H PO (09:23)
[2023-01-10] MEDS: lisinopriL 20 MG TABLET PO (09:25)
[2023-01-10] MEDS: metFORMIN HCl ER 500 MG TAB.ER.24H 1000 MG PO ×2 (09:25→20:55)
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
[2023-01-10] MEDS: Melatonin 3 MG TABLET 9 MG PO (20:55)
[2023-01-10] MEDS: Mirtazapine 30 MG TABLET PO (20:55)
[2023-01-10] MEDS: OLANZapine ODT 10 MG TAB.RAPDIS TRANSLINGU (20:55)
[2023-01-10] MEDS: Divalproex Sodium ER 500 MG TAB.ER.24H 2000 MG PO (20:55)
[2023-01-10 21:04] VITALS: RESP 18
[2023-01-11 08:30] VITALS: BP 111/56; PULSE 60; RESP 18; TEMP 36.6; O2SAT 98
[2023-01-11 08:37] LABS: Glucose, Whole Blood 119 mg/dL (60-115)
[2023-01-11] MEDS: Sertraline HCL 50 MG TABLET PO (09:37)
[2023-01-11] MEDS: OLANZapine 2.5 MG TABLET PO ×4 (09:37→21:34)
[2023-01-11] MEDS: metFORMIN HCl ER 500 MG TAB.ER.24H 1000 MG PO ×2 (09:39→21:34)
[2023-01-11] MEDS: lisinopriL 20 MG TABLET PO (09:40)
[2023-01-11] MEDS: Metoprolol Succinate ER 50 MG TAB.ER.24H PO (09:41)
[2023-01-11] MEDS: Acetaminophen 325 MG TABLET 650 MG PO (10:46)
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
[2023-01-11 21:25] VITALS: BP 139/60; PULSE 64; RESP 18; TEMP 36.5; O2SAT 100
[2023-01-11] MEDS: Mirtazapine 30 MG TABLET PO (21:34)
[2023-01-11] MEDS: Divalproex Sodium ER 500 MG TAB.ER.24H 2000 MG PO (21:34)
[2023-01-11] MEDS: OLANZapine ODT 10 MG TAB.RAPDIS TRANSLINGU (21:34)
[2023-01-11] MEDS: Melatonin 3 MG TABLET 9 MG PO (21:34)
[2023-01-12 08:30] VITALS: BP 141/82; PULSE 57; RESP 18; TEMP 36.6; O2SAT 100
[2023-01-12 09:01] LABS: Glucose, Whole Blood 114 mg/dL (60-115)
[2023-01-12] MEDS: OLANZapine 2.5 MG TABLET PO ×4 (09:23→21:23)
[2023-01-12] MEDS: Sertraline HCL 50 MG TABLET PO (09:24)
[2023-01-12] MEDS: lisinopriL 20 MG TABLET PO (09:24)
[2023-01-12] MEDS: metFORMIN HCl ER 500 MG TAB.ER.24H 1000 MG PO ×2 (09:26→21:23)
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
[2023-01-12 17:55] VITALS: BP 108/69; PULSE 60; RESP 18; TEMP 36.3; O2SAT 100
[2023-01-12] MEDS: Mirtazapine 30 MG TABLET PO (21:23)
[2023-01-12] MEDS: traZODone HCL 50 MG TABLET PO (21:23)
[2023-01-12] MEDS: Divalproex Sodium ER 500 MG TAB.ER.24H 2000 MG PO (21:23)
[2023-01-12] MEDS: OLANZapine ODT 10 MG TAB.RAPDIS TRANSLINGU (21:23)
[2023-01-12] MEDS: Melatonin 3 MG TABLET 9 MG PO (21:24)
[2023-01-13 08:13] LABS: Glucose, Whole Blood 148 mg/dL (60-115)
[2023-01-13 08:50] VITALS: BP 112/62; PULSE 66; RESP 18; TEMP 36.6; O2SAT 66
[2023-01-13] MEDS: Sertraline HCL 50 MG TABLET PO (10:34)
[2023-01-13] MEDS: metFORMIN HCl ER 500 MG TAB.ER.24H 1000 MG PO ×2 (10:35→21:41)
[2023-01-13] MEDS: lisinopriL 20 MG TABLET PO (10:36)
[2023-01-13] MEDS: Metoprolol Succinate ER 50 MG TAB.ER.24H PO (10:37)
[2023-01-13] MEDS: OLANZapine 2.5 MG TABLET PO ×4 (10:38→21:40)
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
[2023-01-13 21:08] VITALS: BP 114/71; PULSE 66; RESP 16; TEMP 36.7; O2SAT 98
[2023-01-13] MEDS: Melatonin 3 MG TABLET 9 MG PO (21:40)
[2023-01-13] MEDS: traZODone HCL 50 MG TABLET PO (21:40)
[2023-01-13] MEDS: Mirtazapine 30 MG TABLET PO (21:41)
[2023-01-13] MEDS: OLANZapine ODT 10 MG TAB.RAPDIS TRANSLINGU (21:41)
[2023-01-13] MEDS: Divalproex Sodium ER 500 MG TAB.ER.24H 2000 MG PO (21:41)
[2023-01-14 08:00] VITALS: BP 119/64; PULSE 56; RESP 16; TEMP 36.6; O2SAT 99
[2023-01-14] MEDS: OLANZapine 2.5 MG TABLET PO ×3 (08:53→14:55)
[2023-01-14] MEDS: lisinopriL 20 MG TABLET PO (08:54)
[2023-01-14] MEDS: Sertraline HCL 50 MG TABLET PO (08:54)
[2023-01-14] MEDS: metFORMIN HCl ER 500 MG TAB.ER.24H 1000 MG PO ×2 (08:55→21:16)
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
[2023-01-14 14:11] LABS: Glucose, Whole Blood 115 mg/dL (60-115)
[2023-01-14] MEDS: Mirtazapine 30 MG TABLET PO (21:15)
[2023-01-14] MEDS: traZODone HCL 50 MG TABLET PO (21:15)
[2023-01-14] MEDS: Melatonin 3 MG TABLET 9 MG PO (21:16)
[2023-01-14] MEDS: OLANZapine 7.5 MG TABLET 15 MG PO (21:16)
[2023-01-14] MEDS: Divalproex Sodium ER 500 MG TAB.ER.24H 2000 MG PO (21:16)
[2023-01-14 21:22] VITALS: BP 84/51; PULSE 64; RESP 16; TEMP 36.7; O2SAT 100
[2023-01-15 08:17] LABS: Glucose, Whole Blood 106 mg/dL (60-115)
[2023-01-15 08:35] VITALS: BP 129/67; PULSE 64; RESP 18; TEMP 36.6; O2SAT 99
[2023-01-15 09:23] LABS: Creatinine Clr Calc Pharmacy 74.3; Estimated Glomerular Filt Rate > 60
[2023-01-15] MEDS: OLANZapine 2.5 MG TABLET PO ×2 (09:24→14:50)
[2023-01-15] MEDS: metFORMIN HCl ER 500 MG TAB.ER.24H 1000 MG PO ×2 (09:24→22:00)
[2023-01-15] MEDS: lisinopriL 20 MG TABLET PO (09:25)
[2023-01-15] MEDS: Metoprolol Succinate ER 50 MG TAB.ER.24H PO (09:26)
[2023-01-15] MEDS: Sertraline HCL 50 MG TABLET PO (09:27)
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
[2023-01-15] MEDS: Mirtazapine 30 MG TABLET PO (22:00)
[2023-01-15] MEDS: Melatonin 3 MG TABLET 9 MG PO (22:00)
[2023-01-15] MEDS: OLANZapine 7.5 MG TABLET 15 MG PO (22:00)
[2023-01-15] MEDS: Divalproex Sodium ER 500 MG TAB.ER.24H 2000 MG PO (22:00)
[2023-01-15 22:10] VITALS: BP 110/51; PULSE 61; RESP 16; TEMP 36.5; O2SAT 97
[2023-01-16 08:37] LABS: Glucose, Whole Blood 108 mg/dL (60-115)
[2023-01-16 09:11] VITALS: BP 112/58; PULSE 56; RESP 16; TEMP 36.6; O2SAT 99
[2023-01-16] MEDS: lisinopriL 20 MG TABLET PO (09:39)
[2023-01-16] MEDS: metFORMIN HCl ER 500 MG TAB.ER.24H 1000 MG PO ×2 (09:39→22:53)
[2023-01-16] MEDS: OLANZapine 2.5 MG TABLET PO (09:39)
[2023-01-16] MEDS: Sertraline HCL 50 MG TABLET PO (09:40)
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
[2023-01-16] MEDS: Melatonin 3 MG TABLET 9 MG PO (22:53)
[2023-01-16] MEDS: OLANZapine 10 MG TABLET 20 MG PO (22:53)
[2023-01-16] MEDS: Divalproex Sodium ER 500 MG TAB.ER.24H 2000 MG PO (22:53)
[2023-01-16] MEDS: Mirtazapine 30 MG TABLET PO (22:53)
[2023-01-16 23:00] VITALS: BP 124/79; PULSE 62; RESP 18; TEMP 36.4; O2SAT 97
[2023-01-17 10:00] VITALS: BP 124/74; PULSE 80; TEMP 36.4; O2SAT 96
[2023-01-17] MEDS: Sertraline HCL 50 MG TABLET PO (10:07)
[2023-01-17] MEDS: metFORMIN HCl ER 500 MG TAB.ER.24H 1000 MG PO ×2 (10:07→21:12)
[2023-01-17] MEDS: Metoprolol Succinate ER 50 MG TAB.ER.24H PO (10:13)
[2023-01-17] MEDS: lisinopriL 20 MG TABLET PO (10:13)
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
[2023-01-17] MEDS: OLANZapine 7.5 MG TABLET 15 MG PO (21:11)
[2023-01-17] MEDS: Melatonin 3 MG TABLET 9 MG PO (21:11)
[2023-01-17] MEDS: Mirtazapine 30 MG TABLET PO (21:12)
[2023-01-17] MEDS: Divalproex Sodium ER 500 MG TAB.ER.24H 2000 MG PO (21:12)
[2023-01-17 21:17] VITALS: BP 130/70; PULSE 57; TEMP 36.3; O2SAT 100
[2023-01-18 08:29] LABS: Glucose, Whole Blood 108 mg/dL (60-115)
[2023-01-18 08:30] VITALS: BP 139/76; PULSE 59; TEMP 36.6; O2SAT 100
[2023-01-18] MEDS: metFORMIN HCl ER 500 MG TAB.ER.24H 1000 MG PO ×2 (08:50→20:39)
[2023-01-18] MEDS: Sertraline HCL 50 MG TABLET PO (08:51)
[2023-01-18] MEDS: Metoprolol Succinate ER 50 MG TAB.ER.24H PO (08:51)
[2023-01-18] MEDS: lisinopriL 20 MG TABLET PO (08:51)
[2023-01-18] MEDS: Divalproex Sodium ER 500 MG TAB.ER.24H 2000 MG PO (20:39)
[2023-01-18] MEDS: Mirtazapine 30 MG TABLET PO (20:39)
[2023-01-18] MEDS: OLANZapine 7.5 MG TABLET 15 MG PO (20:39)
[2023-01-18 20:43] VITALS: BP 100/57; PULSE 55; TEMP 36.7; O2SAT 93
[2023-01-18] MEDS: Melatonin 3 MG TABLET 9 MG PO (21:21)
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
[2023-01-19 09:04] VITALS: BP 156/79; PULSE 57; TEMP 36.6; O2SAT 100
[2023-01-19] MEDS: metFORMIN HCl ER 500 MG TAB.ER.24H 1000 MG PO ×2 (09:06→20:27)
[2023-01-19] MEDS: lisinopriL 20 MG TABLET PO (09:07)
[2023-01-19] MEDS: Metoprolol Succinate ER 50 MG TAB.ER.24H PO (09:07)
[2023-01-19] MEDS: Sertraline HCL 50 MG TABLET PO (09:07)
[2023-01-19 13:59] LABS: Glucose, Whole Blood 94 mg/dL (60-115)
[2023-01-19 20:24] VITALS: BP 126/73; PULSE 64; RESP 18; TEMP 36.3; O2SAT 100
[2023-01-19] MEDS: Divalproex Sodium ER 500 MG TAB.ER.24H 2000 MG PO (20:27)
[2023-01-19] MEDS: Melatonin 3 MG TABLET 9 MG PO (20:27)
[2023-01-19] MEDS: OLANZapine 7.5 MG TABLET 15 MG PO (20:28)
[2023-01-19] MEDS: Mirtazapine 30 MG TABLET PO (20:28)
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
[2023-01-20 06:00] VITALS: BP 133/80; PULSE 55; RESP 16; TEMP 36.6; O2SAT 99
[2023-01-20 09:58] LABS: Glucose, Whole Blood 111 mg/dL (60-115)
[2023-01-20] MEDS: Sertraline HCL 50 MG TABLET PO (10:24)
[2023-01-20] MEDS: metFORMIN HCl ER 500 MG TAB.ER.24H 1000 MG PO ×2 (10:24→21:16)
[2023-01-20] MEDS: lisinopriL 20 MG TABLET PO (10:24)
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
[2023-01-20 20:50] VITALS: BP 121/68; PULSE 61; RESP 18; TEMP 36.6; O2SAT 98
[2023-01-20] MEDS: Divalproex Sodium ER 500 MG TAB.ER.24H 2000 MG PO (21:16)
[2023-01-20] MEDS: OLANZapine 7.5 MG TABLET 15 MG PO (21:16)
[2023-01-20] MEDS: Mirtazapine 30 MG TABLET PO (21:16)
[2023-01-20] MEDS: Melatonin 3 MG TABLET 9 MG PO (21:16)
[2023-01-21 08:45] VITALS: BP 125/69; PULSE 61; RESP 18; TEMP 36.3; O2SAT 95
[2023-01-21 08:54] LABS: Glucose, Whole Blood 105 mg/dL (60-115)
[2023-01-21] MEDS: metFORMIN HCl ER 500 MG TAB.ER.24H 1000 MG PO ×2 (08:58→21:24)
[2023-01-21] MEDS: Metoprolol Succinate ER 50 MG TAB.ER.24H PO (08:58)
[2023-01-21] MEDS: Sertraline HCL 50 MG TABLET PO (08:58)
[2023-01-21] MEDS: lisinopriL 20 MG TABLET PO (08:59)
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
[2023-01-21 18:40] VITALS: BP 120/76; PULSE 66; RESP 18; TEMP 36.9; O2SAT 100
[2023-01-21 20:29] LABS: MANUAL DIFF FLAG NO
[2023-01-21 20:32] LABS: Basophils Absolute Auto 0.1 X10*3/uL (0.0-0.2); Basophils Percent Auto 0.8 % (0-2); Eosinophils Absolute Auto 0.1 X10*3/uL (0.0-0.4); Hematocrit 40.4 % (42.0-52.0); Imm Gran Abs Auto 0.23 X10*3/uL (0.00-0.03); Imm Gran Pct Auto 3.5 % (0.0-0.4); Lymphocytes Absolute Auto 1.6 X10*3/uL (1.2-4.9); Lymphocytes Percent Auto 24.3 % (20-40); Mean Corpuscular HGB Conc 32.2 g/dl (31.0-36.0); Mean Corpuscular Hemoglobin 30.5 pg (27.0-33.0); Mean Corpuscular Volume 94.8 fL (80.0-98.0); Monocytes Absolute Auto 0.9 X10*3/uL (0.1-1.2); Monocytes Percent Auto 13.8 % (2-11); Neutrophils Absolute Auto 3.7 x10*3/uL (2.0-8.3); Neutrophils Percent Auto 55.6 % (45-73); Platelet Count 181 X10*3/uL (160-400); Red Blood Count 4.26 X10*6/uL (4.60-5.80); White Blood Count 6.7 X10*3/uL (4.8-10.8)
[2023-01-21 21:01] LABS: Valproate 52.2 mcg/mL (50.0-100.0)
[2023-01-21 21:03] LABS: Alanine Aminotransferase 14 U/L (0-40); Alkaline Phosphatase 55 U/L (39-117); Anion Gap 18 (12-20); Aspartate Amino Transferase 19 U/L (5-37); Bilirubin Direct < 0.2 mg/dL (0.0-0.5); Bilirubin Total 0.2 mg/dL (0.0-1.0); Blood Urea Nitrogen 21 mg/dL (9-16); Carbon Dioxide 27 mmol/L (22-29); Chloride 102 mmol/L (96-108); Creatinine Clr Calc Pharmacy 64.9; Estimated Glomerular Filt Rate > 60; Glucose Random 162 mg/dL (60-115); Potassium 5.1 mmol/L (3.3-5.1); Sodium 142 mmol/L (135-145); Total Protein 6.5 g/dL (6.5-8.0)
[2023-01-21] MEDS: OLANZapine 10 MG TABLET PO (21:24)
[2023-01-21] MEDS: Melatonin 3 MG TABLET 9 MG PO (21:24)
[2023-01-21] MEDS: Divalproex Sodium ER 500 MG TAB.ER.24H 2000 MG PO (21:24)
[2023-01-21] MEDS: Mirtazapine 30 MG TABLET PO (21:24)
[2023-01-22 08:24] LABS: Glucose, Whole Blood 114 mg/dL (60-115)
[2023-01-22 09:26] VITALS: BP 108/57; PULSE 55; RESP 20; TEMP 36.4; O2SAT 98
[2023-01-22] MEDS: lisinopriL 20 MG TABLET PO (09:27)
[2023-01-22] MEDS: Sertraline HCL 50 MG TABLET PO (09:28)
[2023-01-22] MEDS: metFORMIN HCl ER 500 MG TAB.ER.24H 1000 MG PO ×2 (09:28→21:28)
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
[2023-01-22] MEDS: Divalproex Sodium ER 500 MG TAB.ER.24H 2000 MG PO (21:28)
[2023-01-22] MEDS: Mirtazapine 30 MG TABLET PO (21:28)
[2023-01-22] MEDS: Melatonin 3 MG TABLET 9 MG PO (21:28)
[2023-01-22] MEDS: OLANZapine 10 MG TABLET PO (21:29)
[2023-01-22 21:36] VITALS: BP 121/72; PULSE 67; TEMP 36.6; O2SAT 97
[2023-01-23 07:00] VITALS: BMI 30.1
[2023-01-23 08:00] VITALS: BP 117/87; PULSE 67; RESP 18; TEMP 36.6; O2SAT 95
[2023-01-23 08:38] LABS: Glucose, Whole Blood 127 mg/dL (60-115)
[2023-01-23] MEDS: metFORMIN HCl ER 500 MG TAB.ER.24H 1000 MG PO ×2 (08:39→20:52)
[2023-01-23] MEDS: Sertraline HCL 50 MG TABLET PO (08:40)
[2023-01-23] MEDS: Metoprolol Succinate ER 50 MG TAB.ER.24H PO (08:40)
[2023-01-23] MEDS: lisinopriL 20 MG TABLET PO (08:41)
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
[2023-01-23 20:24] VITALS: BP 135/81; PULSE 64; RESP 18; TEMP 36.3; O2SAT 100
[2023-01-23] MEDS: Divalproex Sodium ER 500 MG TAB.ER.24H 2000 MG PO (20:51)
[2023-01-23] MEDS: OLANZapine 10 MG TABLET PO (20:52)
[2023-01-23] MEDS: Mirtazapine 30 MG TABLET PO (20:52)
[2023-01-23] MEDS: Melatonin 3 MG TABLET 9 MG PO (20:52)
[2023-01-24 08:36] LABS: Glucose, Whole Blood 139 mg/dL (60-115)
[2023-01-24 08:40] VITALS: BP 129/76; PULSE 63; RESP 18; TEMP 36.8; O2SAT 96
[2023-01-24] MEDS: Sertraline HCL 50 MG TABLET PO (08:44)
[2023-01-24] MEDS: lisinopriL 20 MG TABLET PO (08:44)
[2023-01-24] MEDS: Metoprolol Succinate ER 50 MG TAB.ER.24H PO (08:44)
[2023-01-24] MEDS: metFORMIN HCl ER 500 MG TAB.ER.24H 1000 MG PO ×2 (08:44→20:43)
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
[2023-01-24 20:35] VITALS: BP 125/76; PULSE 61; RESP 18; TEMP 36.6; O2SAT 99
[2023-01-24] MEDS: Mirtazapine 30 MG TABLET PO (20:43)
[2023-01-24] MEDS: Divalproex Sodium ER 500 MG TAB.ER.24H 2000 MG PO (20:43)
[2023-01-24] MEDS: OLANZapine 10 MG TABLET PO (20:43)
[2023-01-24] MEDS: Melatonin 3 MG TABLET 9 MG PO (20:43)
[2023-01-25 08:55] VITALS: BP 101/70; PULSE 75; RESP 16; TEMP 36.6; O2SAT 97
[2023-01-25] MEDS: Metoprolol Succinate ER 50 MG TAB.ER.24H PO (09:00)
[2023-01-25] MEDS: Sertraline HCL 50 MG TABLET PO (09:00)
[2023-01-25] MEDS: Multivitamin TABLET 1 TAB PO (09:01)
[2023-01-25] MEDS: lisinopriL 20 MG TABLET PO (09:01)
[2023-01-25] MEDS: metFORMIN HCl ER 500 MG TAB.ER.24H 1000 MG PO ×2 (09:01→22:43)
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
[2023-01-25 12:39] LABS: Glucose, Whole Blood 107 mg/dL (60-115)
[2023-01-25] MEDS: Melatonin 3 MG TABLET 9 MG PO (22:42)
[2023-01-25] MEDS: Mirtazapine 30 MG TABLET PO (22:42)
[2023-01-25] MEDS: OLANZapine 10 MG TABLET PO (22:43)
[2023-01-25] MEDS: Divalproex Sodium ER 500 MG TAB.ER.24H 2000 MG PO (22:43)
[2023-01-25 22:55] VITALS: BP 119/57; PULSE 60; RESP 18; TEMP 36.4; O2SAT 99
[2023-01-26 08:38] LABS: Glucose, Whole Blood 87 mg/dL (60-115)
[2023-01-26 09:00] VITALS: BP 142/69; PULSE 63; RESP 16; TEMP 36.4; O2SAT 98
[2023-01-26] MEDS: lisinopriL 20 MG TABLET PO (09:05)
[2023-01-26] MEDS: metFORMIN HCl ER 500 MG TAB.ER.24H 1000 MG PO ×2 (09:05→21:04)
[2023-01-26] MEDS: Metoprolol Succinate ER 50 MG TAB.ER.24H PO (09:06)
[2023-01-26] MEDS: Multivitamin TABLET 1 TAB PO (09:06)
[2023-01-26] MEDS: Sertraline HCL 50 MG TABLET PO (09:06)
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
[2023-01-26 20:30] VITALS: BP 108/66; PULSE 66; RESP 16; TEMP 36.7; O2SAT 97
[2023-01-26] MEDS: OLANZapine 10 MG TABLET PO (21:04)
[2023-01-26] MEDS: Mirtazapine 30 MG TABLET PO (21:04)
[2023-01-26] MEDS: Divalproex Sodium ER 500 MG TAB.ER.24H 2000 MG PO (21:04)
[2023-01-26] MEDS: Melatonin 3 MG TABLET 9 MG PO (21:04)
[2023-01-27 08:53] VITALS: BP 165/85; PULSE 58; RESP 18; TEMP 36.7; O2SAT 97
[2023-01-27] MEDS: metFORMIN HCl ER 500 MG TAB.ER.24H 1000 MG PO (08:54)
[2023-01-27] MEDS: lisinopriL 20 MG TABLET PO (08:54)
[2023-01-27] MEDS: Sertraline HCL 50 MG TABLET PO (08:54)
[2023-01-27] MEDS: Multivitamin TABLET 1 TAB PO (08:55)
== END 2023-01-27 09:53 | disposition home or self-care (01) | DRG 885 ==
LOC: HO.ED 17:44 → HO.PADLT16 12-13 15:44
PROVIDERS: Physician Assistant; Psychiatry & Neurology Psychiatry; Admitting Provider Social Worker; Emergency Provider Student in an Organized Health Care Education/Training Program; Visit Provider Psychiatry & Neurology Psychiatry
DX: F29 Unspecified psychosis not due to a substance or known physiological condition (principal); R45.851 Suicidal ideations; F02.811 Dementia in other diseases classified elsewhere, unspecified severity, with agitation; F84.0 Autistic disorder; G31.09 Other frontotemporal neurocognitive disorder; E86.0 Dehydration; E11.9 Type 2 diabetes mellitus without complications; Z20.822 Contact with and (suspected) exposure to COVID-19; Z78.1 Physical restraint status; Z79.84 Long term (current) use of oral hypoglycemic drugs; Z79.899 Other long term (current) drug therapy
CPT/HCPCS: 36415; 70450; 80048; 80053; 80061; 80076; 80164; 80307; 81003; 82140; 82248; 82550; 82565; 82607; 82746; 82947; 83036; 83690; 84443; 85025; 86140; 86780; 87635; 92950; 93005; 99285; J1200; J2060; J3230

== ENCOUNTER 2023-04-13 11:40 | Inpatient (IN) | payer MEDICARE, MEDICAID, SELFPAY ==
--- NOTE | ~2023-04-13 | CT_ITS ---
EXAMINATION: CT ABDOMEN AND PELVIS WITH CONTRAST CLINICAL INFORMATION: Pain COMPARISON: None available. TECHNIQUE: Multidetector volumetric images were obtained from the superior aspect of the liver through the pubic symphysis following administration 85 mL of Omnipaque 350 intravenous contrast. Sagittal and coronal reformatted images were obtained on the technologist's workstation. Oral contrast: No This CT examination was performed using dose optimization techniques as appropriate, variously including the following: *Automated exposure control *Adjustment of mA and/or kV according to patient size (this includes techniques or standardized protocols for targeted exams where dose is matched to indication/reason for exam; i.e. extremities or head) *Use of iterative reconstruction technique DLP: 643 mGy-cm FINDINGS: LUNG BASES: The visualized lung bases are unremarkable. LIVER, GALLBLADDER, AND BILIARY TREE: The liver is normal in size, shape, and attenuation. Tiny cyst subcentimeter left lobe liver. No solid or suspicious lesion or biliary ductal dilatation is present. The gallbladder is unremarkable with no evidence of radiopaque gallstones, gallbladder wall thickening, or obvious pericholecystic inflammatory changes. PANCREAS: Unremarkable. SPLEEN: Unremarkable. ADRENAL GLANDS: Unremarkable. KIDNEYS AND URETERS: No hydronephrosis. Large and smaller renal cortical cysts left greater than right Bosniak 1. No follow-up indicated. Coarse calcifications upper pole right renal cortex. No perinephric abnormality. BLADDER: Diffuse bladder wall thickening without any stones or diverticula. No discrete lesion. GASTROINTESTINAL TRACT: The small and large bowel are unremarkable. The appendix is unremarkable. ABDOMINAL WALL: No significant hernia is appreciated. LYMPH NODES: Normal. VASCULAR: Unremarkable. PELVIC VISCERA: Markedly enlarged prostate gland. OSSEOUS STRUCTURES: Unremarkable. CT/CT abdomen pelvis w IV con IMPRESSION: No specific findings to explain patient's symptoms. Markedly enlarged prostate gland with diffuse bladder wall thickening. Fleischner guidelines were followed.
--- NOTE | ~2023-04-13 | CT_ITS ---
EXAMINATION: CT ANGIOGRAM OF THE CHEST WITH AND WITHOUT CONTRAST (CT PULMONARY ANGIOGRAM FOR PE) CLINICAL INFORMATION: Reason for Exam hypoxia, +covid, weakness, r/o pe COMPARISON: Chest x-ray 04/13/2023 TECHNIQUE: Prior to contrast administration, noncontrast localization images were obtained. Subsequently, multidetector volumetric imaging was performed from the thoracic inlet to below the diaphragms following the administration of 65 mL Omnipaque 350 intravenous contrast. No contrast reaction reported Sagittal, coronal, and MIP oblique sagittal reformatted images were obtained on the CT workstation, uploaded to PACS, and reviewed. This CT examination was performed using dose optimization techniques as appropriate, variously including the following: *Automated exposure control *Adjustment of mA and/or kV according to patient size (this includes techniques or standardized protocols for targeted exams where dose is matched to indication/reason for exam; i.e. extremities or head) *Use of iterative reconstruction technique Total exam dose-length product 156 mGy-cm FINDINGS: QUALITY OF STUDY/CONTRAST BOLUS: Satisfactory. PULMONARY ARTERIES: No pulmonary emboli. THORACIC AORTA: No aneurysm. LUNG: Bilateral lower lobe atelectasis or small infiltrates. PLEURA: No pleural effusion or pneumothorax. MEDIASTINUM: Normal heart size. No pericardial effusion. No hilar or mediastinal lymphadenopathy. No evidence of septal bowing or right heart strain. CORONARY ARTERY CALCIFICATION: None visualized on this study. CHEST WALL/AXILLA: No axillary or internal mammary lymphadenopathy. OSSEOUS STRUCTURES: No acute or suspicious osseous abnormality. Degenerative changes of the spine. UPPER ABDOMEN: Unremarkable. No reflux of contrast into the hepatic veins to suggest elevated right heart pressures. CT/CT angio chest PE protocol IMPRESSION: No evidence of pulmonary embolism. Bilateral lower lobe atelectasis or small infiltrates. VTE: negative
--- NOTE | ~2023-04-13 | XR_ITS ---
EXAMINATION: XR CHEST CLINICAL INFORMATION: Cough COMPARISON: Chest x-ray 02/14/2017 TECHNIQUE: 2 views of the chest were obtained. FINDINGS: No significant abnormality is noted involving the heart, lungs, mediastinum, bony thorax or soft tissues. XR/XR chest 2V IMPRESSION: Unremarkable chest examination.
[2023-04-13 11:42] VITALS: BP 130/73; PULSE 96; RESP 19; TEMP 36.6; O2SAT 97; BMI 30.4
--- NOTE | 2023-04-13 11:42 | ECG_ITS ---
Test Reason : WEAKNESS Blood Pressure : / mmHG Vent. Rate : 094 BPM Atrial Rate : 094 BPM P-R Int : 158 ms QRS Dur : 082 ms QT Int : 342 ms P-R-T Axes : 034 -42 010 degrees QTc Int : 427 ms Normal sinus rhythm Left axis deviation Abnormal ECG When compared with ECG of 11-DEC-2022 17:01, Vent. rate has increased BY 35 BPM Referred By: Livia Bailey Electronically Signed By:MAHAD MONTGOMERY
--- NOTE | 2023-04-13 11:43 | ED.GENADULT ---
HPI - General Adult General Chief complaint: General Medical Stated complaint: multiple issues Time Seen by Provider: 04/13/23 12:20 Source: patient Mode of arrival: ambulatory History of Present Illness HPI narrative: This is a 62-year-old male who states that he ambulates with a walker and is seen for increasing tremors and generalized weakness that started and patient states has been worsening. Patient states that he has a home health aide that comes in twice a week and states that he is unable to feed himself and when I asked how he eats or drinks when his help is not available he states that he waits. He denies any shortness of breath or chest pain, denies fevers or chills or abdominal discomfort. Related Data Previous Rx's Medication Instructions Recorded atorvastatin 80 mg tablet 80 mg PO BEDTIME 30 days #30 tabs 01/24/23 divalproex 500 mg tablet,extended 2,000 mg PO BEDTIME 30 days #120 01/24/23 release 24 hr tabs lisinopril 20 mg tablet 20 mg PO DAILY 30 days #30 tabs 01/24/23 melatonin 3 mg tablet 9 mg PO BEDTIME 30 days #90 tabs 01/24/23 metformin 500 mg tablet,extended 1,000 mg PO BID 30 days #120 tabs 01/24/23 release 24 hr metoprolol succinate 50 mg 50 mg PO DAILY 30 days #30 tabs 01/24/23 tablet,extended release 24 hr mirtazapine 30 mg tablet 30 mg PO BEDTIME 30 days #30 tabs 01/24/23 multivitamin (Daily-Tanika tablet) 1 tab PO DAILY #0 tabs 01/24/23 olanzapine 10 mg tablet 10 mg PO BEDTIME 30 days #30 tabs 01/24/23 sertraline 50 mg tablet 50 mg PO DAILY 30 days #30 tabs 01/24/23 trazodone 50 mg tablet 50 mg PO BEDTIME PRN Insomnia 30 01/24/23 days #30 tabs Allergies Allergy/AdvReac Type Severity Reaction Status Date / Time No Known Allergies Allergy Verified 04/13/23 11:42 [No Known Allergies*] Review of Systems Review of Systems: Pertinent positives and negatives as stated in HPI PMF Past Medical History Source: nursing notes reviewed Medical History (Updated 04/15/23 @ 11:23 by Carol Menchaca NP) Autism spectrum disorder Diabetes mellitus Hypertension Social History Social History Household Members: None Housing: Apartment Do you presently have visiting nurse or other home services: Yes Alcohol intake: never Patient Tobacco Use Status: Never used Tobacco Smoked in Last 30 Days: No Use of substances other than those prescribed or required for medical reasons: No Advance Directives: Yes Advance Directives on File: Yes Advance Directives Date on File: 04/14/23 Nutrition Risks: Poor intake 0-25% >4 days service: No Sexual orientation: Don't Know Physical Exam ED Vital Signs: Vital Signs - 24 hr 04/14/23 13:40 04/14/23 16:45 04/14/23 16:55 Temperature 98.8 F 101.1 F H 100.6 F H Pulse Rate 70 64 Respiratory Rate 16 20 Blood Pressure 140/72 H 139/74 Pulse Oximetry 92 88 L 93 Oxygen Delivery Method Room Air Room Air Nasal Cannula Oxygen Flow Rate 2 04/14/23 19:37 04/15/23 06:00 04/15/23 08:00 Temperature 99.7 F 98.8 F 99.5 F Pulse Rate 62 80 60 Respiratory Rate 14 20 18 Blood Pressure 111/64 140/80 H 127/72 Pulse Oximetry 93 93 94 Oxygen Delivery Method Nasal Cannula Nasal Cannula Nasal Cannula Oxygen Flow Rate 3 2 3 04/15/23 11:23 Temperature 98.5 F Pulse Rate 55 Respiratory Rate 20 Blood Pressure 121/66 Pulse Oximetry 96 Oxygen Delivery Method Nasal Cannula Oxygen Flow Rate 3 BMI result Body Mass Index 30.4 VITAL SIGNS: Reviewed. GENERAL: Chronically ill, questionable hygiene, in no acute distress. HEAD: Normocephalic/atraumatic EYES: PERRLA, EOMI EARS: Ext canals without abnormality NOSE: Nares patent bilateral OROPHARYNX: no oral lesions noted, posterior pharynx clear NECK: Supple, no adenopathy LUNGS: Normal breath sounds. No adventitious sounds or accessory muscle use. SpO2<97> CARDIOVASCULAR: Regular rate and rhythm without noted murmurs ABDOMEN: Soft, non-tender, non-distended with bowel sounds. MUSCULOSKELETAL: No tenderness, deformities, or effusions noted on gross inspection. EXTREMITIES: No cyanosis, clubbing or edema. SKIN: Inspection of the skin reveals no rashes NEUROLOGIC: Alert and oriented x 3. Strength and sensation to light touch were grossly intact x 2, with state that strength in the lower extremities is symmetrical but somewhat decreased. Course Course Course Narrative: This is an RME: Additional HPI, ROS, PE not included below will be deferred to primary provider. 62-year-old presents with uncontrolled tremors, fatigue and malaise, also reports inability to walk, recent psychiatric admission and diagnosis with new paranoia, was started on olanzapine. Triage provider and nurse were called out to get patient from vehicle because he was unable to ambulate. weight getting him out. Per caregiver patient was on the ground for a long period of time PE global weakness. resting tremor to upper and lower extremiteis. Plan- labs, imaging, cpk. Ordered ativan incase this is a dystonic reaction. Reevaluation(s) Reevaluation #1: physician observation continued. patient found to have COVID, was recently exposed at day program. no hypoxia but very sleepy today. VBG without respiratory acidosis. VS otherwise stable. seen by PT who is recommending short term rehab. home meds restarted. will be more difficult to place due to covid status. will continue to monitor. Time: 13:57 Reevaluation #2: 04/15/23--723--physician observation completed, patient notably hypoxic overnight 88% on room air, now satting 93% on 3 L NC (per nursing was still 90% on 2 L NC), labs and imaging reviewed. Will obtain CTA to rule out PE, 6 mg of IV Decadron ordered. Plan for admission 1200--CT angio chest PE protocol IMPRESSION: No evidence of pulmonary embolism. Bilateral lower lobe atelectasis or small infiltrates. ? VTE: negative > patient admitted for further management Medications Administered Generic Name Dose Route Start Last Admin Trade Name Freq PRN Reason Stop Dose Admin Atorvastatin Calcium 80 mg 04/14/23 21:00 04/14/23 21:10 Atorvastatin Calcium 80 Mg Tablet PO 80 mg BEDTIME DESIRAE Administration Divalproex Sodium 2,000 mg 04/14/23 21:00 04/14/23 21:10 Divalproex Sodium Er 500 Mg Tab.Er.24h PO 2,000 mg BEDTIME DESIRAE Administration Lisinopril 20 mg 04/14/23 11:00 04/15/23 07:52 Lisinopril 20 Mg Tablet PO 20 mg DAILY DESIRAE Administration Protocol Melatonin 9 mg 04/14/23 21:00 04/14/23 21:10 Melatonin 3 Mg Tablet PO 9 mg BEDTIME DESIRAE Administration Metformin HCl 1,000 mg 04/14/23 10:30 04/15/23 07:51 Metformin Hcl Er 500 Mg Tab.Er.24h PO 1,000 mg BID DESIRAE Administration Metoprolol Succinate 50 mg 04/14/23 10:30 04/15/23 07:52 Metoprolol Succinate Er 50 Mg Tab.Er.24h PO 50 mg DAILY DESIRAE Administration Protocol Mirtazapine 30 mg 04/14/23 21:00 04/14/23 21:11 Mirtazapine 30 Mg Tablet PO 30 mg BEDTIME DESIRAE Administration Multivitamins/Vitamin C 1 tab 04/14/23 10:30 04/15/23 07:52 Multivitamin Tablet PO 1 tab DAILY DESIRAE Administration Olanzapine 10 mg 04/14/23 21:00 04/14/23 21:11 Olanzapine 10 Mg Tablet PO 10 mg BEDTIME DESIRAE Administration Sertraline HCl 50 mg 04/14/23 10:30 04/15/23 07:52 Sertraline Hcl 50 Mg Tablet PO 50 mg DAILY DESIRAE Administration Discontinued Medications Generic Name Dose Route Start Last Admin Trade Name Freq PRN Reason Stop Dose Admin Acetaminophen 650 mg 04/14/23 18:17 04/14/23 18:31 Acetaminophen 325 Mg Tablet PO 04/14/23 18:18 650 mg ONCE ONE Administration Dexamethasone Sodium Phosphate 6 mg 04/15/23 07:23 04/15/23 07:51 Dexamethasone Sod Phosphate 4 Mg/Ml Vial IVPUSH 04/15/23 07:24 6 mg ONCE ONE Administration Diphenhydramine HCl 25 mg 04/13/23 11:45 04/13/23 12:57 Diphenhydramine Hcl 50 Mg/Ml Vial IVPUSH 04/13/23 11:46 25 mg ONCE ONE Administration Sodium Chloride 1,000 mls @ 999 mls/hr 04/13/23 13:00 04/13/23 14:08 Ns IV 04/13/23 14:00 Infused .Q1H1M DESIRAE Infusion Sodium Chloride 500 mls @ 999 mls/hr 04/15/23 07:00 04/15/23 08:06 Ns IV 04/15/23 07:30 Infused .Q31M DESIRAE Infusion Sodium Chloride 500 mls @ 999 mls/hr 04/15/23 08:45 04/15/23 11:06 Ns IV 04/15/23 09:15 Infused .Q31M DESIRAE Infusion Iohexol 100 ml 04/13/23 16:55 04/13/23 16:55 Iohexol 350 Mg/Ml 100 Ml Infus..Btl IV 04/13/23 16:56 85 ml ONCE ONE Administration Iohexol 100 ml 04/15/23 10:34 04/15/23 10:34 Iohexol 350 Mg/Ml 100 Ml Infus..Btl IV 04/15/23 10:35 65 ml ONCE ONE Administration Medical Decision Making Medical Decision Making [facility] Narrative: 62-year-old male with foot appears to be physical deconditioning, I do not think this patient ambulates significantly of baseline with her without a walker. Mucosa appears to be dry suggesting questionable oral intake. I reviewed all investigations to include imaging studies that have been completed and my interpretation is patient had JEREMÍAS secondary to poor oral intake, I do not think that this gentleman has strength to ambulate with a walker at this time. CT scan is pending and I have signed out to Dr. Kennedy but patient will be placed in case management and physical therapy evaluation. I received sign-out from Dr. Espinosa -CT scan does not show any acute abnormalities. -patient needed for people to help him to stand up and walk. Patient was able to walk but very unsteady. However, patient improved significantly from the time that he arrived to the emergency room. But patient is not safe to go home especially if he has care every other day. -case management and physical therapy consult pending. -physician observation started at 18:43 Differential Diagnosis Please see the discussion above Lab Data [facility] Lab Attestation statement: I reviewed the patient's lab results. Please see the discussion above 04/13/23 12:02 04/13/23 12:02 Labs: Lab Results 04/13/23 04/13/23 04/13/23 Range/Units 12:02 12:02 12:02 WBC 7.1 (4.8-10.8) X10*3/uL RBC 4.44 L (4.60-5.80) X10*6/uL Hgb 13.9 L (14.0-18.0) g/dl Hct 41.3 L (42.0-52.0) % MCV 93.0 (80.0-98.0) fL MCH 31.3 (27.0-33.0) pg MCHC 33.7 (31.0-36.0) g/dl RDW 14.6 (11.0-16.0) % Plt Count 137 L (160-400) X10*3/uL MPV 10.4 (9.4-12.4) fL Immature Gran % (Auto) 1.0 H (0.0-0.4) % Neut % (Auto) 68.0 (45-73) % Lymph % (Auto) 8.4 L (20-40) % [place] % (Auto) 22.3 H (2-11) % Eos % (Auto) 0.0 (0-4) % Baso % (Auto) 0.3 (0-2) % Lymph # (Auto) 0.6 L (1.2-4.9) X10*3/uL [place] # (Auto) 1.6 H (0.1-1.2) X10*3/uL Eos # (Auto) 0.0 (0.0-0.4) X10*3/uL Baso # (Auto) 0.0 (0.0-0.2) X10*3/uL Abs Immat Gran (auto) 0.07 H (0.00-0.03) X10*3/uL Absolute Neuts (auto) 4.8 (2.0-8.3) x10*3/uL Absolute Nucleated RBC 0.000 (0.0-0.012) X10*3/uL Nucleated RBC % (auto) 0.0 (0.0-0.2) /100WBC Smear Tech's Comments VERIFIED VBG pH (7.32-7.43) VBG pCO2 mmHg VBG pO2 mmHg VBG HCO3 (22-26) mmol/L VBG O2 Saturation % VBG Base Excess mmol/L Sodium 136 (135-145) mmol/L Potassium 5.2 H (3.3-5.1) mmol/L Chloride 100 (96-108) mmol/L Carbon Dioxide 24 (22-29) mmol/L Anion Gap 17 (12-20) BUN 28 H (9-16) mg/dL Creatinine 1.79 H (0.5-1.4) mg/dL Estim Creat Clear Calc 46.7 Estimated GFR 39 POC Glucose (60-115) mg/dL Random Glucose 201 H (60-115) mg/dL Calcium 9.7 D (8.4-10.2) mg/dL Magnesium 1.9 (1.6-2.6) mg/dL Total Bilirubin 0.6 (0.0-1.0) mg/dL AST 125 H (5-37) U/L ALT 84 H (0-40) U/L Alkaline Phosphatase 59 (39-117) U/L Total Creatine Kinase 201 H (38-174) U/L Total Protein 7.8 (6.5-8.0) g/dL Albumin 4.2 (3.5-5.0) g/dL Lipase 37 (8-78) U/L Urine Color Urine Appearance Urine pH (5.0-9.0) Ur Specific [place] (1.005-1.025) Urine Protein (Neg-Trace) mg/dL Urine Glucose (UA) (Negative) mg/dL Urine Ketones (Negative) mg/dL Urine Blood (Negative) Urine Nitrite (Negative) Ur Leukocyte Esterase (Negative) Urine RBC (0-2) /HPF Urine WBC (0-5) /HPF Ur Squamous Epith Cells (0-2) /HPF Urine Bacteria (None Seen) Hyaline Casts (0-2) /LPF Valproic Acid 77.9 (50.0-100.0) mcg/mL Ethyl Alcohol mg/dL COVID-19 (ERIBERTO) (Negative) COVID-19 Clin Com Influenza Type A (PCR) (Negative) Influenza Type B (PCR) (Negative) RSV RNA Qual (PCR) (Negative) SARS-CoV-2 RNA (RT-PCR) (Negative) 04/13/23 04/13/23 04/13/23 Range/Units 12:07 14:10 15:09 WBC (4.8-10.8) X10*3/uL RBC (4.60-5.80) X10*6/uL Hgb (14.0-18.0) g/dl Hct (42.0-52.0) % MCV (80.0-98.0) fL MCH (27.0-33.0) pg MCHC (31.0-36.0) g/dl RDW (11.0-16.0) % Plt Count (160-400) X10*3/uL MPV (9.4-12.4) fL Immature Gran % (Auto) (0.0-0.4) % Neut % (Auto) (45-73) % Lymph % (Auto) (20-40) % [place] % (Auto) (2-11) % Eos % (Auto) (0-4) % Baso % (Auto) (0-2) % Lymph # (Auto) (1.2-4.9) X10*3/uL [place] # (Auto) (0.1-1.2) X10*3/uL Eos # (Auto) (0.0-0.4) X10*3/uL Baso # (Auto) (0.0-0.2) X10*3/uL Abs Immat Gran (auto) (0.00-0.03) X10*3/uL Absolute Neuts (auto) (2.0-8.3) x10*3/uL Absolute Nucleated RBC (0.0-0.012) X10*3/uL Nucleated RBC % (auto) (0.0-0.2) /100WBC Smear Tech's Comments VBG pH (7.32-7.43) VBG pCO2 mmHg VBG pO2 mmHg VBG HCO3 (22-26) mmol/L VBG O2 Saturation % VBG Base Excess mmol/L Sodium 140 (135-145) mmol/L Potassium 4.6 (3.3-5.1) mmol/L Chloride 103 (96-108) mmol/L Carbon Dioxide 26 (22-29) mmol/L Anion Gap 16 (12-20) BUN 26 H (9-16) mg/dL Creatinine 1.46 H (0.5-1.4) mg/dL Estim Creat Clear Calc 57.3 Estimated GFR 49 POC Glucose (60-115) mg/dL Random Glucose 116 H (60-115) mg/dL Calcium 9.2 (8.4-10.2) mg/dL Magnesium (1.6-2.6) mg/dL Total Bilirubin (0.0-1.0) mg/dL AST (5-37) U/L ALT (0-40) U/L Alkaline Phosphatase (39-117) U/L Total Creatine Kinase (38-174) U/L Total Protein (6.5-8.0) g/dL Albumin (3.5-5.0) g/dL Lipase (8-78) U/L Urine Color Yellow Urine Appearance Clear Urine pH 5.5 (5.0-9.0) Ur Specific [place] 1.025 (1.005-1.025) Urine Protein Trace (Neg-Trace) mg/dL Urine Glucose (UA) 250 H (Negative) mg/dL Urine Ketones 15 (Negative) mg/dL Urine Blood Moderate (2+) H (Negative) Urine Nitrite Negative (Negative) Ur Leukocyte Esterase Negative (Negative) Urine RBC >20 H (0-2) /HPF Urine WBC 0-5 (0-5) /HPF Ur Squamous Epith Cells 0-2 (0-2) /HPF Urine Bacteria None Seen (None Seen) Hyaline Casts 0-2 (0-2) /LPF Valproic Acid (50.0-100.0) mcg/mL Ethyl Alcohol < 10 mg/dL COVID-19 (ERIBERTO) (Negative) COVID-19 Clin Com Influenza Type A (PCR) (Negative) Influenza Type B (PCR) (Negative) RSV RNA Qual (PCR) (Negative) SARS-CoV-2 RNA (RT-PCR) (Negative) 04/13/23 04/14/23 04/14/23 Range/Units 18:27 05:37 07:16 WBC (4.8-10.8) X10*3/uL RBC (4.60-5.80) X10*6/uL Hgb (14.0-18.0) g/dl Hct (42.0-52.0) % MCV (80.0-98.0) fL MCH (27.0-33.0) pg MCHC (31.0-36.0) g/dl RDW (11.0-16.0) % Plt Count (160-400) X10*3/uL MPV (9.4-12.4) fL Immature Gran % (Auto) (0.0-0.4) % Neut % (Auto) (45-73) % Lymph % (Auto) (20-40) % [place] % (Auto) (2-11) % Eos % (Auto) (0-4) % Baso % (Auto) (0-2) % Lymph # (Auto) (1.2-4.9) X10*3/uL [place] # (Auto) (0.1-1.2) X10*3/uL Eos # (Auto) (0.0-0.4) X10*3/uL Baso # (Auto) (0.0-0.2) X10*3/uL Abs Immat Gran (auto) (0.00-0.03) X10*3/uL Absolute Neuts (auto) (2.0-8.3) x10*3/uL Absolute Nucleated RBC (0.0-0.012) X10*3/uL Nucleated RBC % (auto) (0.0-0.2) /100WBC Smear Tech's Comments VBG pH (7.32-7.43) VBG pCO2 mmHg VBG pO2 mmHg VBG HCO3 (22-26) mmol/L VBG O2 Saturation % VBG Base Excess mmol/L Sodium (135-145) mmol/L Potassium (3.3-5.1) mmol/L Chloride (96-108) mmol/L Carbon Dioxide (22-29) mmol/L Anion Gap (12-20) BUN (9-16) mg/dL Creatinine (0.5-1.4) mg/dL Estim Creat Clear Calc Estimated GFR POC Glucose 99 123 H 145 H (60-115) mg/dL Random Glucose (60-115) mg/dL Calcium (8.4-10.2) mg/dL Magnesium (1.6-2.6) mg/dL Total Bilirubin (0.0-1.0) mg/dL AST (5-37) U/L ALT (0-40) U/L Alkaline Phosphatase (39-117) U/L Total Creatine Kinase (38-174) U/L Total Protein (6.5-8.0) g/dL Albumin (3.5-5.0) g/dL Lipase (8-78) U/L Urine Color Urine Appearance Urine pH (5.0-9.0) Ur Specific [place] (1.005-1.025) Urine Protein (Neg-Trace) mg/dL Urine Glucose (UA) (Negative) mg/dL Urine Ketones (Negative) mg/dL Urine Blood (Negative) Urine Nitrite (Negative) Ur Leukocyte Esterase (Negative) Urine RBC (0-2) /HPF Urine WBC (0-5) /HPF Ur Squamous Epith Cells (0-2) /HPF Urine Bacteria (None Seen) Hyaline Casts (0-2) /LPF Valproic Acid (50.0-100.0) mcg/mL Ethyl Alcohol mg/dL COVID-19 (ERIBERTO) (Negative) COVID-19 Clin Com Influenza Type A (PCR) (Negative) Influenza Type B (PCR) (Negative) RSV RNA Qual (PCR) (Negative) SARS-CoV-2 RNA (RT-PCR) (Negative) 04/14/23 04/14/23 04/14/23 Range/Units 09:40 11:31 12:28 WBC (4.8-10.8) X10*3/uL RBC (4.60-5.80) X10*6/uL Hgb (14.0-18.0) g/dl Hct (42.0-52.0) % MCV (80.0-98.0) fL MCH (27.0-33.0) pg MCHC (31.0-36.0) g/dl RDW (11.0-16.0) % Plt Count (160-400) X10*3/uL MPV (9.4-12.4) fL Immature Gran % (Auto) (0.0-0.4) % Neut % (Auto) (45-73) % Lymph % (Auto) (20-40) % [place] % (Auto) (2-11) % Eos % (Auto) (0-4) % Baso % (Auto) (0-2) % Lymph # (Auto) (1.2-4.9) X10*3/uL [place] # (Auto) (0.1-1.2) X10*3/uL Eos # (Auto) (0.0-0.4) X10*3/uL Baso # (Auto) (0.0-0.2) X10*3/uL Abs Immat Gran (auto) (0.00-0.03) X10*3/uL Absolute Neuts (auto) (2.0-8.3) x10*3/uL Absolute Nucleated RBC (0.0-0.012) X10*3/uL Nucleated RBC % (auto) (0.0-0.2) /100WBC Smear Tech's Comments VBG pH 7.45 H (7.32-7.43) VBG pCO2 57 mmHg VBG pO2 25 mmHg VBG HCO3 41 H (22-26) mmol/L VBG O2 Saturation 30.0 % VBG Base Excess 14.5 mmol/L Sodium (135-145) mmol/L Potassium (3.3-5.1) mmol/L Chloride (96-108) mmol/L Carbon Dioxide (22-29) mmol/L Anion Gap (12-20) BUN (9-16) mg/dL Creatinine (0.5-1.4) mg/dL Estim Creat Clear Calc Estimated GFR POC Glucose 146 H (60-115) mg/dL Random Glucose (60-115) mg/dL Calcium (8.4-10.2) mg/dL Magnesium (1.6-2.6) mg/dL Total Bilirubin (0.0-1.0) mg/dL AST (5-37) U/L ALT (0-40) U/L Alkaline Phosphatase (39-117) U/L Total Creatine Kinase (38-174) U/L Total Protein (6.5-8.0) g/dL Albumin (3.5-5.0) g/dL Lipase (8-78) U/L Urine Color Urine Appearance Urine pH (5.0-9.0) Ur Specific [place] (1.005-1.025) Urine Protein (Neg-Trace) mg/dL Urine Glucose (UA) (Negative) mg/dL Urine Ketones (Negative) mg/dL Urine Blood (Negative) Urine Nitrite (Negative) Ur Leukocyte Esterase (Negative) Urine RBC (0-2) /HPF Urine WBC (0-5) /HPF Ur Squamous Epith Cells (0-2) /HPF Urine Bacteria (None Seen) Hyaline Casts (0-2) /LPF Valproic Acid (50.0-100.0) mcg/mL Ethyl Alcohol mg/dL COVID-19 (ERIBERTO) Positive A (Negative) COVID-19 Clin Com See Note Influenza Type A (PCR) (Negative) Influenza Type B (PCR) (Negative) RSV RNA Qual (PCR) (Negative) SARS-CoV-2 RNA (RT-PCR) (Negative) 04/14/23 04/15/23 04/15/23 Range/Units 16:42 07:59 10:31 WBC (4.8-10.8) X10*3/uL RBC (4.60-5.80) X10*6/uL Hgb (14.0-18.0) g/dl Hct (42.0-52.0) % MCV (80.0-98.0) fL MCH (27.0-33.0) pg MCHC (31.0-36.0) g/dl RDW (11.0-16.0) % Plt Count (160-400) X10*3/uL MPV (9.4-12.4) fL Immature Gran % (Auto) (0.0-0.4) % Neut % (Auto) (45-73) % Lymph % (Auto) (20-40) % [place] % (Auto) (2-11) % Eos % (Auto) (0-4) % Baso % (Auto) (0-2) % Lymph # (Auto) (1.2-4.9) X10*3/uL [place] # (Auto) (0.1-1.2) X10*3/uL Eos # (Auto) (0.0-0.4) X10*3/uL Baso # (Auto) (0.0-0.2) X10*3/uL Abs Immat Gran (auto) (0.00-0.03) X10*3/uL Absolute Neuts (auto) (2.0-8.3) x10*3/uL Absolute Nucleated RBC (0.0-0.012) X10*3/uL Nucleated RBC % (auto) (0.0-0.2) /100WBC Smear Tech's Comments VBG pH (7.32-7.43) VBG pCO2 mmHg VBG pO2 mmHg VBG HCO3 (22-26) mmol/L VBG O2 Saturation % VBG Base Excess mmol/L Sodium (135-145) mmol/L Potassium (3.3-5.1) mmol/L Chloride (96-108) mmol/L Carbon Dioxide (22-29) mmol/L Anion Gap (12-20) BUN (9-16) mg/dL Creatinine (0.5-1.4) mg/dL Estim Creat Clear Calc Estimated GFR POC Glucose 145 H 119 H (60-115) mg/dL Random Glucose (60-115) mg/dL Calcium (8.4-10.2) mg/dL Magnesium (1.6-2.6) mg/dL Total Bilirubin (0.0-1.0) mg/dL AST (5-37) U/L ALT (0-40) U/L Alkaline Phosphatase (39-117) U/L Total Creatine Kinase (38-174) U/L Total Protein (6.5-8.0) g/dL Albumin (3.5-5.0) g/dL Lipase (8-78) U/L Urine Color Urine Appearance Urine pH (5.0-9.0) Ur Specific [place] (1.005-1.025) Urine Protein (Neg-Trace) mg/dL Urine Glucose (UA) (Negative) mg/dL Urine Ketones (Negative) mg/dL Urine Blood (Negative) Urine Nitrite (Negative) Ur Leukocyte Esterase (Negative) Urine RBC (0-2) /HPF Urine WBC (0-5) /HPF Ur Squamous Epith Cells (0-2) /HPF Urine Bacteria (None Seen) Hyaline Casts (0-2) /LPF Valproic Acid (50.0-100.0) mcg/mL Ethyl Alcohol mg/dL COVID-19 (ERIBERTO) (Negative) COVID-19 Clin Com Influenza Type A (PCR) NEGATIVE (Negative) Influenza Type B (PCR) NEGATIVE (Negative) RSV RNA Qual (PCR) NEGATIVE (Negative) SARS-CoV-2 RNA (RT-PCR) POSITIVE A (Negative) 04/15/23 Range/Units 11:42 WBC (4.8-10.8) X10*3/uL RBC (4.60-5.80) X10*6/uL Hgb (14.0-18.0) g/dl Hct (42.0-52.0) % MCV (80.0-98.0) fL MCH (27.0-33.0) pg MCHC (31.0-36.0) g/dl RDW (11.0-16.0) % Plt Count (160-400) X10*3/uL MPV (9.4-12.4) fL Immature Gran % (Auto) (0.0-0.4) % Neut % (Auto) (45-73) % Lymph % (Auto) (20-40) % [place] % (Auto) (2-11) % Eos % (Auto) (0-4) % Baso % (Auto) (0-2) % Lymph # (Auto) (1.2-4.9) X10*3/uL [place] # (Auto) (0.1-1.2) X10*3/uL Eos # (Auto) (0.0-0.4) X10*3/uL Baso # (Auto) (0.0-0.2) X10*3/uL Abs Immat Gran (auto) (0.00-0.03) X10*3/uL Absolute Neuts (auto) (2.0-8.3) x10*3/uL Absolute Nucleated RBC (0.0-0.012) X10*3/uL Nucleated RBC % (auto) (0.0-0.2) /100WBC Smear Tech's Comments VBG pH (7.32-7.43) VBG pCO2 mmHg VBG pO2 mmHg VBG HCO3 (22-26) mmol/L VBG O2 Saturation % VBG Base Excess mmol/L Sodium (135-145) mmol/L Potassium (3.3-5.1) mmol/L Chloride (96-108) mmol/L Carbon Dioxide (22-29) mmol/L Anion Gap (12-20) BUN (9-16) mg/dL Creatinine (0.5-1.4) mg/dL Estim Creat Clear Calc Estimated GFR POC Glucose 143 H (60-115) mg/dL Random Glucose (60-115) mg/dL Calcium (8.4-10.2) mg/dL Magnesium (1.6-2.6) mg/dL Total Bilirubin (0.0-1.0) mg/dL AST (5-37) U/L ALT (0-40) U/L Alkaline Phosphatase (39-117) U/L Total Creatine Kinase (38-174) U/L Total Protein (6.5-8.0) g/dL Albumin (3.5-5.0) g/dL Lipase (8-78) U/L Urine Color Urine Appearance Urine pH (5.0-9.0) Ur Specific B[place] (1.005-1.025) Urine Protein (Neg-Trace) mg/dL Urine Glucose (UA) (Negative) mg/dL Urine Ketones (Negative) mg/dL Urine Blood (Negative) Urine Nitrite (Negative) Ur Leukocyte Esterase (Negative) Urine RBC (0-2) /HPF Urine WBC (0-5) /HPF Ur Squamous Epith Cells (0-2) /HPF Urine Bacteria (None Seen) Hyaline Casts (0-2) /LPF Valproic Acid (50.0-100.0) mcg/mL Ethyl Alcohol mg/dL COVID-19 (ERIBERTO) (Negative) COVID-19 Clin Com Influenza Type A (PCR) (Negative) Influenza Type B (PCR) (Negative) RSV RNA Qual (PCR) (Negative) SARS-CoV-2 RNA (RT-PCR) (Negative) Independent Interpretation I performed an independent interpretation of an: EKG Interpretation: Normal sinus rhythm, HR-94, no STEMI, FL/QRS/QTC is within normal limits. Radiology Impression Discussion of test interpretation with radiology: I have reviewed the radiologist's reading. Radiologist Impression: FINDINGS: LUNG BASES: The visualized lung bases are unremarkable.? LIVER, GALLBLADDER, AND BILIARY TREE: The liver is normal in size, shape, and attenuation. Tiny cyst subcentimeter left lobe liver. No solid or suspicious lesion or biliary ductal dilatation is present. The gallbladder is unremarkable with no evidence of radiopaque gallstones, gallbladder wall thickening, or obvious pericholecystic inflammatory changes.? PANCREAS: Unremarkable.? SPLEEN: Unremarkable.? ADRENAL GLANDS: Unremarkable.? KIDNEYS AND URETERS: No hydronephrosis. Large and smaller renal cortical cysts left greater than right Bosniak 1. No follow-up indicated. Coarse calcifications upper pole right renal cortex. No perinephric abnormality.? BLADDER: Diffuse bladder wall thickening without any stones or diverticula. No discrete lesion.? GASTROINTESTINAL TRACT: The small and large bowel are unremarkable. The appendix is unremarkable.? ABDOMINAL WALL: No significant hernia is appreciated.? LYMPH NODES: Normal. VASCULAR: Unremarkable. PELVIC VISCERA: Markedly enlarged prostate gland.? OSSEOUS STRUCTURES: Unremarkable.? CT/CT abdomen pelvis w IV con IMPRESSION: No specific findings to explain patient's symptoms. Markedly enlarged prostate gland with diffuse bladder wall thickening. ? Fleischner guidelines were followed. Discharge Plan Discharge Clinical Impression: Dehydration, JEREMÍAS (acute kidney injury), Weakness Patient Disposition: Still a Patient Prescriptions: No Action olanzapine 10 mg Tablet 10 mg PO BEDTIME 30 Days Qty: 30 0RF mirtazapine 30 mg Tablet 30 mg PO BEDTIME 30 Days Qty: 30 0RF divalproex 500 mg Tablet Extended Release 24 Hr 2,000 mg PO BEDTIME 30 Days Qty: 120 0RF sertraline 50 mg Tablet 50 mg PO DAILY 30 Days Qty: 30 0RF multivitamin [Daily-Tanika] Tablet 1 tab PO DAILY Qty: 0 0RF trazodone 50 mg Tablet 50 mg PO BEDTIME PRN (Reason: Insomnia) 30 Days Qty: 30 0RF atorvastatin 80 mg tablet 80 mg PO BEDTIME 30 Days Qty: 30 0RF metoprolol succinate 50 mg tablet extended release 24 hr 50 mg PO DAILY 30 Days Qty: 30 0RF lisinopril 20 mg tablet 20 mg PO DAILY 30 Days Qty: 30 0RF melatonin 3 mg tablet 9 mg PO BEDTIME 30 Days Qty: 90 0RF metformin 500 mg tablet extended release 24 hr 1,000 mg PO BID 30 Days Qty: 120 0RF
[2023-04-13 12:08] LABS: Basophils Percent Auto 0.3 % (0-2); Hematocrit 41.3 % (42.0-52.0); Hemoglobin 13.9 g/dl (14.0-18.0); Imm Gran Abs Auto 0.07 X10*3/uL (0.00-0.03); Lymphocytes Absolute Auto 0.6 X10*3/uL (1.2-4.9); Lymphocytes Percent Auto 8.4 % (20-40); MANUAL DIFF FLAG SCAN; Mean Corpuscular HGB Conc 33.7 g/dl (31.0-36.0); Mean Corpuscular Hemoglobin 31.3 pg (27.0-33.0); Mean Platelet Volume 10.4 fL (9.4-12.4); Monocytes Absolute Auto 1.6 X10*3/uL (0.1-1.2); Monocytes Percent Auto 22.3 % (2-11); Neutrophils Absolute Auto 4.8 x10*3/uL (2.0-8.3); Platelet Count 137 X10*3/uL (160-400); Red Blood Count 4.44 X10*6/uL (4.60-5.80); Red Cell Distribution Width 14.6 % (11.0-16.0); SCAN SMEAR FLAG 1; White Blood Count 7.1 X10*3/uL (4.8-10.8)
[2023-04-13 12:20] LABS: Valproate 77.9 mcg/mL (50.0-100.0)
[2023-04-13 12:27] LABS: SLIDE REVIEW VERIFIED
[2023-04-13 12:30] LABS: Alanine Aminotransferase 84 U/L (0-40); Albumin Level 4.2 g/dL (3.5-5.0); Alkaline Phosphatase 59 U/L (39-117); Anion Gap 17 (12-20); Aspartate Amino Transferase 125 U/L (5-37); Bilirubin Total 0.6 mg/dL (0.0-1.0); Blood Urea Nitrogen 28 mg/dL (9-16); Calcium 9.7 mg/dL (8.4-10.2); Carbon Dioxide 24 mmol/L (22-29); Chloride 100 mmol/L (96-108); Creatinine Clr Calc Pharmacy 46.7; Estimated Glomerular Filt Rate 39; Glucose Random 201 mg/dL (60-115); Magnesium 1.9 mg/dL (1.6-2.6); Potassium 5.2 mmol/L (3.3-5.1); Sodium 136 mmol/L (135-145); Total Protein 7.8 g/dL (6.5-8.0)
[2023-04-13] MEDS: diphenhydrAMINE HCL 50 MG/ML VIAL 25 MG IVPUSH (12:57)
[2023-04-13] MEDS: 0.9 % Sodium Chloride 1,000 ML 999 ML IV (13:03)
[2023-04-13 13:35] LABS: Ethanol < 10 mg/dL
[2023-04-13 13:35] LABS: Lipase 37 U/L (8-78)
[2023-04-13 14:07] VITALS: BP 132/78; PULSE 74; RESP 18; O2SAT 92
[2023-04-13 14:18] LABS: Appearance Urine Clear; Color Urine Yellow; Glucose Urine UA 250 mg/dL (Negative); Leukocyte Esterase Urine Negative (Negative); Nitrite Urine Negative (Negative); PH 5.5 (5.0-9.0); Specific Gravity - Urine 1.025 (1.005-1.025); UMIC TRIGGER UACC YES; Urine Blood Moderate (2+) (Negative); Urine Ketones 15 mg/dL (Negative); Urine Protein Trace mg/dL (Neg-Trace)
[2023-04-13 14:27] LABS: Bacteria Urine None Seen (None Seen); Hyaline Casts Urine 0-2 /LPF (0-2); RBC Urine >20 /HPF (0-2); Squamous Epithelial Cell Urine 0-2 /HPF (0-2); WBC Urine 0-5 /HPF (0-5)
[2023-04-13 15:45] LABS: Anion Gap 16 (12-20); Blood Urea Nitrogen 26 mg/dL (9-16); Calcium 9.2 mg/dL (8.4-10.2); Carbon Dioxide 26 mmol/L (22-29); Chloride 103 mmol/L (96-108); Creatinine Clr Calc Pharmacy 57.3; Estimated Glomerular Filt Rate 49; Glucose Random 116 mg/dL (60-115); Potassium 4.6 mmol/L (3.3-5.1); Sodium 140 mmol/L (135-145)
[2023-04-13 16:55] VITALS: BP 122/70; PULSE 72; RESP 16; O2SAT 95
[2023-04-13] MEDS: iohexoL 350 MG/ML 100 ML INFUS..BTL IV (16:55)
--- NOTE | 2023-04-13 18:18 | PHA.MEDREC ---
Pharmacy Consult ? Medication Reconciliation Pharmacy has completed the medication reconciliation. Patient did not know their medications. Patient's financial planner brought in a list of last discharge meds (01/27/23). Patient's financial planner per RN stated that this medication list is up to date with the most accurate medications. Confirmed with claim history.
[2023-04-13 18:20] VITALS: BP 146/81; PULSE 65; RESP 18; O2SAT 95
[2023-04-13 18:30] LABS: Glucose, Whole Blood 99 mg/dL (60-115)
[2023-04-14] VITALS (8 sets, daily range): BP systolic 111–149; BP diastolic 64–95; PULSE 62–72; RESP 14–20; TEMP 36.1–38.4; O2SAT 88–98
[2023-04-14 05:46] LABS: Glucose, Whole Blood 123 mg/dL (60-115)
[2023-04-14 07:20] LABS: Glucose, Whole Blood 145 mg/dL (60-115)
[2023-04-14 10:36] LABS: COVID-19 Test Positive (Negative); IDNOW Serial# 08D9AD1C
[2023-04-14] MEDS: Sertraline HCL 50 MG TABLET PO (10:44)
[2023-04-14] MEDS: lisinopriL 20 MG TABLET PO (10:44)
[2023-04-14] MEDS: metFORMIN HCl ER 500 MG TAB.ER.24H 1000 MG PO ×2 (10:44→21:10)
[2023-04-14] MEDS: Multivitamin TABLET 1 TAB PO (10:44)
[2023-04-14] MEDS: Metoprolol Succinate ER 50 MG TAB.ER.24H PO (10:45)
[2023-04-14 11:36] LABS: Glucose, Whole Blood 146 mg/dL (60-115)
--- NOTE | 2023-04-14 12:03 | PC.NURSE ---
Assumed care at 07:00. Patient drowsy, arousable to voice. Answers questions slowly but appropriately, sleeping late in the day. POC WNL. MD notified, and home medications ordered. Patient is a set-up for meals, ate well, spills food and drinks on self. Incontinent of urine, [place] catheter pulled off often. No focal neural deficits. Denies pain. Compliant with care, forgets to ring for help.
--- NOTE | 2023-04-14 12:11 | MHC.CM.ED ---
Addendum entered by Mamie Silveira 04/14/23 15:11: Copy of HCP obtained from Darcy. Put in patient's chart. [facility] PASRR Level 2 obtained. Trying to find placement. Original Note: Received case management consult from Dr Espinosa overnight. Patient came to the ER due to weakness, leg swelling and hand tremors. Work up essentially negative, except testing positive for Covid. Physical therapy eval completed. Short term rehab is recommended. Patient's family friend, Darcy, is patient's primary caregiver. She can be reached via telephone at [phone]. Patient lives alone and is active with [facility] for medication assistance twice a day. Darcy has a copy of patient's HCP and will bring it to the ER. Patient goes to a [facility] day program. Somone on the same transport bus tested positive for Covid last week. Patient was tested on and Friday last week with home tests and was negative. 1st documented positive is today. Patient has received a total of 5 Covid vaccines. Patient has not been active with [facility]. Darcy aware referral for short term rehab will have to be broadcasted out due to Covid. Patient was inpatient at [facility] S1 12/13/22-01/27/23. Patient's gabapentin was stopped at that time and Depakote was started. Darcy states patient started with tremors about 3 weeks ago. She thinks it is related to this medication. ANDREW Rosales aware and will order psych consult to evaluate this. Continue to monitor for d/c needs.
[2023-04-14 12:36] LABS: Venous Blood Gas Refer to POC result
[2023-04-14 12:38] LABS: VBG Base Excess 14.5 mmol/L; VBG HCO3 41 mmol/L (22-26); VBG pCO2 57 mmHg; VBG pH 7.45 (7.32-7.43); VBG pO2 25 mmHg
[2023-04-14 17:01] LABS: Glucose, Whole Blood 145 mg/dL (60-115)
[2023-04-14] MEDS: Acetaminophen 325 MG TABLET 650 MG PO (18:31)
--- NOTE | 2023-04-14 18:35 | PC.NURSE ---
Assumed care at 1500- Patient drowsy but easily arousable, oriented to self and place, vague on time/situation. Patient denies generalized/chest pain, reports SOB. 1645 vitals as followed- temp 101.1 orally/100.6 axillary, O2 87-90% on RA, BP 139/74, pulse 64, RR 20. Lung sounds diminished, no other signs of respiratory distress. Patient placed on 2L NC, O2 increased to 93%. Tiffanie Stafford TAPE MAKING MACHINE OPERATOR notified, awaiting orders. Tremors noted, making difficult for patient to feed himself, assisted with dinner, ate 75%. Patient incontinent of urine, yesy cath in place, draining dark yellow urine. Airborne precautions in place. Call gutierrez by bedside, bed alarm on. 1820- TAPE MAKING MACHINE OPERATOR ordered Tylenol, given per EMAR. Patient resting, all needs met.
--- NOTE | 2023-04-14 19:39 | PC.NURSE ---
Assumed care for pt. Pt resting/sleeping at the bedside. No apparent distress noted. Breaths are even, regular, and unlabored with equal chest rises. O2 sat 93% on 3L NC. Reports no pain at this time. Will continue to monitor.
[2023-04-14] MEDS: Atorvastatin Calcium 80 MG TABLET PO (21:10)
[2023-04-14] MEDS: Divalproex Sodium ER 500 MG TAB.ER.24H 2000 MG PO (21:10)
[2023-04-14] MEDS: Melatonin 3 MG TABLET 9 MG PO (21:10)
[2023-04-14] MEDS: OLANZapine 10 MG TABLET PO (21:11)
[2023-04-14] MEDS: Mirtazapine 30 MG TABLET PO (21:11)
--- NOTE | 2023-04-14 23:55 | PC.NURSE ---
Pt sleeping at the bedside in no apparent distress. Breaths are even, regular, and unlabored with equal chest rises. Will continue to monitor.
[2023-04-15] VITALS (7 sets, daily range): BP systolic 105–140; BP diastolic 66–80; PULSE 47–80; RESP 16–20; TEMP 36.2–37.5; O2SAT 93–96
[2023-04-15] MEDS: 0.9 % Sodium Chloride 500 ML 999 ML IV ×2 (07:03→10:25)
--- NOTE | 2023-04-15 07:11 | PC.NURSE ---
Pt resting at the bedside in no apparent distress. Breaths are even regular and unlabored. Ct scan with contrast ordered as pt is now requiring 3L o2 and now pending admission per Sophie. 500 bolus started as ordered. Pt tolerating well. Handoff provided to TAMMY Hendricks.
--- NOTE | 2023-04-15 07:22 | PC.NURSE ---
Confirmation of admission station -pt is to be admitted to [facility] status. Charge Nurse notified. [id number]-Frances from CT called to ask that all food/po intake held until after CTA.
[2023-04-15] MEDS: metFORMIN HCl ER 500 MG TAB.ER.24H 1000 MG PO ×2 (07:51→23:05)
[2023-04-15] MEDS: dexAMETHasone sod phosphate 4 MG/ML VIAL 6 MG IVPUSH (07:51)
[2023-04-15] MEDS: Sertraline HCL 50 MG TABLET PO (07:52)
[2023-04-15] MEDS: Multivitamin TABLET 1 TAB PO (07:52)
[2023-04-15] MEDS: Metoprolol Succinate ER 50 MG TAB.ER.24H PO (07:52)
[2023-04-15] MEDS: lisinopriL 20 MG TABLET PO (07:52)
[2023-04-15 08:10] LABS: Glucose, Whole Blood 119 mg/dL (60-115)
--- NOTE | 2023-04-15 08:39 | MHC.CM.ED ---
Addendum entered by Mamie Silveira 04/15/23 10:01: Darcy, caregiver made aware of admission via telephone at [phone]. Left voicemail for patient's sister/HCP, Fernanda, via telephone at [phone] explaining patient would be admitted. Original Note: Patient remains in ER overflow. Low O2 sat and temp overnight. Sophie MORALES aware and is trying to admit patient. Continue to monitor for d/c needs.
--- NOTE | 2023-04-15 08:47 | PC.NURSE ---
Per Sophie MORALES, hold 2nd fluid bolus until s/p ct.
--- NOTE | 2023-04-15 09:33 | PC.NURSE ---
Contact made to CT- per moi, Plan at this time is to take pt at 1000. Sophie notified.
--- NOTE | 2023-04-15 09:55 | PC.NURSE ---
pt to ct now
[2023-04-15] MEDS: iohexoL 350 MG/ML 100 ML INFUS..BTL IV (10:34)
--- NOTE | 2023-04-15 10:58 | PC.NURSE ---
Carol EARLY CHILDHOOD ASSOCIATE at bedside for admission eval.
--- NOTE | 2023-04-15 11:15 | PM.IMHP ---
History of Present Illness Date of Service: 04/15/23 Chief Complaint: Fever 62-year-old man presenting from a alf that was initially in the overflow unit for plan to transfer to short-term rehab was noted to have hypoxia and fever as well as generalized malaise and anorexia. During interview patient was not able to verbalize much of his symptoms but reported some shortness of breath and cough with green sputum. Due to the hypoxia chest CTA was obtained which was negative for pulmonary embolism but showed bilateral lower lobe atelectasis and small infiltration. His creatinine was noted to be elevated initially at 1.79 did improve slightly to 1.46. COVID on 04/14 was positive, flu and RSV pending. Last night he was noted to be hypoxic with oxygen saturation of 88% on room air with fever of 101.1. He was given a dose of IV Decadron the ER. He will be admitted for further management and treatment of COVID-19 hypoxia. Review of Systems Review of Systems: Decrease in appetite respiratory reported some mild shortness of breath cardiovascular denies chest pain gastrointestinal denies any dysphagia abdominal pain nausea vomiting or diarrhea genitourinary denies any dysuria frequency or hematuria musculoskeletal denies any joint pain or swelling neuropsych denies any weakness or seizures all other systems reviewed are negative [facility] Medical History (Updated 04/15/23 @ 11:23 by Carol Menchaca NP) Autism spectrum disorder Diabetes mellitus Hypertension Pertinent family history: Unable to obtain patient was unable to give information Social History Household Members: None Housing: Apartment Do you presently have visiting nurse or other home services: Yes Alcohol intake: never Patient Tobacco Use Status: Never used Tobacco Smoked in Last 30 Days: No Use of substances other than those prescribed or required for medical reasons: No Advance Directives: Yes Advance Directives on File: Yes Advance Directives Date on File: 04/14/23 service: No Sexual orientation: Don't Know Meds Allergies Allergy/AdvReac Type Severity Reaction Status Date / Time No Known Allergies Allergy Verified 04/13/23 11:42 [No Known Allergies*] Active Medications: Current Medications Atorvastatin Calcium (Atorvastatin Calcium 80 Mg Tablet) 80 mg PO BEDTIME DESIRAE Last Admin: 04/14/23 21:10 Dose: 80 mg Divalproex Sodium (Divalproex Sodium Er 500 Mg Tab.Er.24h) 2,000 mg PO BEDTIME [facility] Last Admin: 04/14/23 21:10 Dose: 2,000 mg Lisinopril (Lisinopril 20 Mg Tablet) 20 mg PO DAILY [facility]; Protocol Last Admin: 04/15/23 07:52 Dose: 20 mg Melatonin (Melatonin 3 Mg Tablet) 9 mg PO BEDTIME DESIRAE Last Admin: 04/14/23 21:10 Dose: 9 mg Metformin HCl (Metformin Hcl Er 500 Mg Tab.Er.24h) 1,000 mg PO BID [facility] Last Admin: 04/15/23 07:51 Dose: 1,000 mg Metoprolol Succinate (Metoprolol Succinate Er 50 Mg Tab.Er.24h) 50 mg PO DAILY [facility]; Protocol Last Admin: 04/15/23 07:52 Dose: 50 mg Mirtazapine (Mirtazapine 30 Mg Tablet) 30 mg PO BEDTIME [facility] Last Admin: 04/14/23 21:11 Dose: 30 mg Multivitamins/Vitamin C (Multivitamin Tablet) 1 tab PO DAILY [facility] Last Admin: 04/15/23 07:52 Dose: 1 tab Olanzapine (Olanzapine 10 Mg Tablet) 10 mg PO BEDTIME [facility] Last Admin: 04/14/23 21:11 Dose: 10 mg Pharmacy Consult (Consult Rx Perform Med Rec) 1 each MISCELLANE ONCE PRN PRN Reason: Consult order Sertraline HCl (Sertraline Hcl 50 Mg Tablet) 50 mg PO DAILY [facility] Last Admin: 04/15/23 07:52 Dose: 50 mg Trazodone HCl (Trazodone Hcl 50 Mg Tablet) 50 mg PO BEDTIME PRN PRN Reason: Insomnia Physical Exam Vital Signs and Narrative: Vital Signs: Last Vital Signs Temp 99.5 F 04/15/23 08:00 Pulse 60 04/15/23 08:00 Resp 18 04/15/23 08:00 BP 127/72 04/15/23 08:00 Pulse Ox 94 04/15/23 08:00 O2 Del Method Nasal Cannula 04/15/23 08:00 O2 Flow Rate 3 04/15/23 08:00 BMI result Body Mass Index 30.4 Appearing in no acute distress head is normocephalic atraumatic eyes pupils are PERRLA sclera is anicteric mouth throat mucous membranes are intact and moist neck is supple no lymphadenopathy, no JVD noted lung sounds are clear to auscultation heart regular rate rhythm, clear S1, S2 positive bowel sounds, abdomen is soft, nontender neuro patient is alert x3, no focal deficits Results Labs 04/13/23 12:02 04/13/23 15:09 Labs: Laboratory Results - last 24 hr 04/14/23 04/14/23 04/14/23 11:31 12:28 16:42 VBG pH 7.45 H VBG pCO2 57 VBG pO2 25 VBG HCO3 41 H VBG O2 Saturation 30.0 VBG Base Excess 14.5 POC Glucose 146 H 145 H 04/15/23 07:59 VBG pH VBG pCO2 VBG pO2 VBG HCO3 VBG O2 Saturation VBG Base Excess POC Glucose 119 H Imaging Radiologist's Impressions: Impressions Chest CTA 04/15/23 10:30 IMPRESSION: No evidence of pulmonary embolism. Bilateral lower lobe atelectasis or small infiltrates. VTE: negative Assessment and Plan (1) COVID-19: Status: Acute Plan 62-year-old man with history of autism, diabetes and hypertension admitted with hypoxia secondary to COVID-19 Hypoxia, secondary to COVID-19 Start IV Decadron Hold off on antibiotics for now Supplemental oxygen P.r.n. respiratory treatments JEREMÍAS Likely due to hypovolemia Mild IV fluid hydration Encourage oral intake Hypertension Stable blood pressure Continue metoprolol Hold lisinopril for JEREMÍAS Diabetes mellitus type 2 Sliding scale, ADA diet Mental health Continue home medications DVT prophylaxis with heparin Attending Dr. Guillory Full code Patient would will require to inpatient midnights for treatment of hypoxia secondary to COVID-19 requiring IV steroids and oxygen Time Spent With Patient Time: Total time managing care of this patient today ____ minutes. Quality Stroke Does the patient have a stroke diagnosis?: No VTE Prior VTE?: No VTE Risk Level:: Medical - moderate - high VTE Device Contraindication: Treatment Not Indicated VTE Drug Contraindication: N/A - Med Ordered
[2023-04-15 11:18] LABS: Influenza A PCR NEGATIVE (Negative); Influenza B PCR NEGATIVE (Negative); Resp Syncy Virus RNA Qual PCR NEGATIVE (Negative); SARS COV2 PCR INHOUSE POSITIVE (Negative)
[2023-04-15] MEDS: 0.9 % Sodium Chloride 1,000 ML 100 ML IVCONT ×2 (11:30→23:06)
--- NOTE | 2023-04-15 11:30 | PC.NURSE ---
Contact made to ed main for electrode sticker. ED main updated with tele status.
--- NOTE | 2023-04-15 11:33 | PC.NURSE ---
Contact made to bed placement regarding bedstatus for patient. corinna will call back.
--- NOTE | 2023-04-15 11:39 | PC.NURSE ---
Contact made to ICU. pt can be seen on monitor in unit.
--- NOTE | 2023-04-15 11:44 | PC.NURSE ---
contact made to ED main for IV pump.
[2023-04-15 11:46] LABS: Glucose, Whole Blood 143 mg/dL (60-115)
--- NOTE | 2023-04-15 12:04 | P.CNPS_ITS ---
History of Present Illness Date of Service: 04/15/2023 Chief Complaint: multiple issues Requesting physician: Connie Barraza Discussed with referring provider: Yes Sources of Information: patient interviewed, chart reviewed and crisis/core team assessment reviewed HPI Narrative: Mr. Meadows is a 62 year-old male presented with hypoxia, currently admitted for hypoxia s/s to [facility]. Pt found to have JEREMÍAS in setting of hypovolemia. Psych consult for tremors thought to be secondary to depakote. Pt currently sleeping, review chart, nursing notes. Pt somnolent and fatigued with increase need for oxygen supplementation, currently on 3L nasal cannula. Advise to assess tremors once medically more stable- can also be assessed by his outpatient providers. Typically, tx would be propanolol but would advise to start tx once medically more stable and alert. For now, recheck depakote level, along with ammonia level. Past Psychiatric History: Inpt: [facility] 2022 OP: [facility] Past medication trials: remeron, cymbalta, wellbutrin, olanzapine [facility] Medical History (Updated 04/15/23 @ 11:23 by Carol Menchaca NP) Autism spectrum disorder Diabetes mellitus Hypertension Family History: unknown Social History: lives along with supports from [employer] Trauma History: unknown Diagnostics Vital Signs (24Hr): Vital Signs - 24 hr 04/14/23 13:40 04/14/23 16:45 04/14/23 16:55 Temperature 98.8 F 101.1 F H 100.6 F H Pulse Rate 70 64 Respiratory Rate 16 20 Blood Pressure 140/72 H 139/74 Pulse Oximetry 92 88 L 93 Oxygen Delivery Method Room Air Room Air Nasal Cannula Oxygen Flow Rate 2 04/14/23 19:37 04/15/23 06:00 04/15/23 08:00 Temperature 99.7 F 98.8 F 99.5 F Pulse Rate 62 80 60 Respiratory Rate 14 20 18 Blood Pressure 111/64 140/80 H 127/72 Pulse Oximetry 93 93 94 Oxygen Delivery Method Nasal Cannula Nasal Cannula Nasal Cannula Oxygen Flow Rate 3 2 3 04/15/23 11:23 Temperature 98.5 F Pulse Rate 55 Respiratory Rate 20 Blood Pressure 121/66 Pulse Oximetry 96 Oxygen Delivery Method Nasal Cannula Oxygen Flow Rate 3 BMI result Body Mass Index 30.4 Labs 04/13/23 12:02 04/13/23 15:09 Labs: Laboratory Results - last 48 hr 04/13/23 04/13/23 04/13/23 12:02 12:02 12:02 WBC 7.1 RBC 4.44 L Hgb 13.9 L Hct 41.3 L MCV 93.0 MCH 31.3 MCHC 33.7 RDW 14.6 Plt Count 137 L MPV 10.4 Immature Gran % (Auto) 1.0 H Neut % (Auto) 68.0 Lymph % (Auto) 8.4 L [place] % (Auto) 22.3 H Eos % (Auto) 0.0 Baso % (Auto) 0.3 Lymph # (Auto) 0.6 L [place] # (Auto) 1.6 H Eos # (Auto) 0.0 Baso # (Auto) 0.0 Abs Immat Gran (auto) 0.07 H Absolute Neuts (auto) 4.8 Absolute Nucleated RBC 0.000 Nucleated RBC % (auto) 0.0 Smear Tech's Comments VERIFIED VBG pH VBG pCO2 VBG pO2 VBG HCO3 VBG O2 Saturation VBG Base Excess Sodium 136 Potassium 5.2 H Chloride 100 Carbon Dioxide 24 Anion Gap 17 BUN 28 H Creatinine 1.79 H Estim Creat Clear Calc 46.7 Estimated GFR 39 POC Glucose Random Glucose 201 H Calcium 9.7 D Magnesium 1.9 Total Bilirubin 0.6 AST 125 H ALT 84 H Alkaline Phosphatase 59 Total Creatine Kinase 201 H Total Protein 7.8 Albumin 4.2 Lipase 37 Urine Color Urine Appearance Urine pH Ur Specific [place] Urine Protein Urine Glucose (UA) Urine Ketones Urine Blood Urine Nitrite Ur Leukocyte Esterase Urine RBC Urine WBC Ur Squamous Epith Cells Urine Bacteria Hyaline Casts Valproic Acid 77.9 Ethyl Alcohol COVID-19 ([facility]) COVID-19 Clin Com Influenza Type A (PCR) Influenza Type B (PCR) RSV RNA Qual (PCR) SARS-CoV-2 RNA (RT-PCR) 04/13/23 04/13/23 04/13/23 12:07 14:10 15:09 WBC RBC Hgb Hct MCV MCH MCHC RDW Plt Count MPV Immature Gran % (Auto) Neut % (Auto) Lymph % (Auto) [place] % (Auto) Eos % (Auto) Baso % (Auto) Lymph # (Auto) [place] # (Auto) Eos # (Auto) Baso # (Auto) Abs Immat Gran (auto) Absolute Neuts (auto) Absolute Nucleated RBC Nucleated RBC % (auto) Smear Tech's Comments VBG pH VBG pCO2 VBG pO2 VBG HCO3 VBG O2 Saturation VBG Base Excess Sodium 140 Potassium 4.6 Chloride 103 Carbon Dioxide 26 Anion Gap 16 BUN 26 H Creatinine 1.46 H Estim Creat Clear Calc 57.3 Estimated GFR 49 POC Glucose Random Glucose 116 H Calcium 9.2 Magnesium Total Bilirubin AST ALT Alkaline Phosphatase Total Creatine Kinase Total Protein Albumin Lipase Urine Color Yellow Urine Appearance Clear Urine pH 5.5 Ur Specific [place] 1.025 Urine Protein Trace Urine Glucose (UA) 250 H Urine Ketones 15 Urine Blood Moderate (2+) H Urine Nitrite Negative Ur Leukocyte Esterase Negative Urine RBC >20 H Urine WBC 0-5 Ur Squamous Epith Cells 0-2 Urine Bacteria None Seen Hyaline Casts 0-2 Valproic Acid Ethyl Alcohol < 10 COVID-19 ([facility]) COVID-19 Clin Com Influenza Type A (PCR) Influenza Type B (PCR) RSV RNA Qual (PCR) SARS-CoV-2 RNA (RT-PCR) 04/13/23 04/14/23 04/14/23 18:27 05:37 07:16 WBC RBC Hgb Hct MCV MCH MCHC RDW Plt Count MPV Immature Gran % (Auto) Neut % (Auto) Lymph % (Auto) [place] % (Auto) Eos % (Auto) Baso % (Auto) Lymph # (Auto) [place] # (Auto) Eos # (Auto) Baso # (Auto) Abs Immat Gran (auto) Absolute Neuts (auto) Absolute Nucleated RBC Nucleated RBC % (auto) Smear Tech's Comments VBG pH VBG pCO2 VBG pO2 VBG HCO3 VBG O2 Saturation VBG Base Excess Sodium Potassium Chloride Carbon Dioxide Anion Gap BUN Creatinine Estim Creat Clear Calc Estimated GFR POC Glucose 99 123 H 145 H Random Glucose Calcium Magnesium Total Bilirubin AST ALT Alkaline Phosphatase Total Creatine Kinase Total Protein Albumin Lipase Urine Color Urine Appearance Urine pH Ur Specific [place] Urine Protein Urine Glucose (UA) Urine Ketones Urine Blood Urine Nitrite Ur Leukocyte Esterase Urine RBC Urine WBC Ur Squamous Epith Cells Urine Bacteria Hyaline Casts Valproic Acid Ethyl Alcohol COVID-19 ([facility]) COVID-19 Clin Com Influenza Type A (PCR) Influenza Type B (PCR) RSV RNA Qual (PCR) SARS-CoV-2 RNA (RT-PCR) 04/14/23 04/14/23 04/14/23 09:40 11:31 12:28 WBC RBC Hgb Hct MCV MCH MCHC RDW Plt Count MPV Immature Gran % (Auto) Neut % (Auto) Lymph % (Auto) [place] % (Auto) Eos % (Auto) Baso % (Auto) Lymph # (Auto) [place] # (Auto) Eos # (Auto) Baso # (Auto) Abs Immat Gran (auto) Absolute Neuts (auto) Absolute Nucleated RBC Nucleated RBC % (auto) Smear Tech's Comments VBG pH 7.45 H VBG pCO2 57 VBG pO2 25 VBG HCO3 41 H VBG O2 Saturation 30.0 VBG Base Excess 14.5 Sodium Potassium Chloride Carbon Dioxide Anion Gap BUN Creatinine Estim Creat Clear Calc Estimated GFR POC Glucose 146 H Random Glucose Calcium Magnesium Total Bilirubin AST ALT Alkaline Phosphatase Total Creatine Kinase Total Protein Albumin Lipase Urine Color Urine Appearance Urine pH Ur Specific [place] Urine Protein Urine Glucose (UA) Urine Ketones Urine Blood Urine Nitrite Ur Leukocyte Esterase Urine RBC Urine WBC Ur Squamous Epith Cells Urine Bacteria Hyaline Casts Valproic Acid Ethyl Alcohol COVID-19 ([facility]) Positive A COVID-19 Clin Com See Note Influenza Type A (PCR) Influenza Type B (PCR) RSV RNA Qual (PCR) SARS-CoV-2 RNA (RT-PCR) 04/14/23 04/15/23 04/15/23 16:42 07:59 10:31 WBC RBC Hgb Hct MCV MCH MCHC RDW Plt Count MPV Immature Gran % (Auto) Neut % (Auto) Lymph % (Auto) [place] % (Auto) Eos % (Auto) Baso % (Auto) Lymph # (Auto) [place] # (Auto) Eos # (Auto) Baso # (Auto) Abs Immat Gran (auto) Absolute Neuts (auto) Absolute Nucleated RBC Nucleated RBC % (auto) Smear Tech's Comments VBG pH VBG pCO2 VBG pO2 VBG HCO3 VBG O2 Saturation VBG Base Excess Sodium Potassium Chloride Carbon Dioxide Anion Gap BUN Creatinine Estim Creat Clear Calc Estimated GFR POC Glucose 145 H 119 H Random Glucose Calcium Magnesium Total Bilirubin AST ALT Alkaline Phosphatase Total Creatine Kinase Total Protein Albumin Lipase Urine Color Urine Appearance Urine pH Ur Specific [place] Urine Protein Urine Glucose (UA) Urine Ketones Urine Blood Urine Nitrite Ur Leukocyte Esterase Urine RBC Urine WBC Ur Squamous Epith Cells Urine Bacteria Hyaline Casts Valproic Acid Ethyl Alcohol COVID-19 ([facility]) COVID-19 Clin Com Influenza Type A (PCR) NEGATIVE Influenza Type B (PCR) NEGATIVE RSV RNA Qual (PCR) NEGATIVE SARS-CoV-2 RNA (RT-PCR) POSITIVE A 04/15/23 11:42 WBC RBC Hgb Hct MCV MCH MCHC RDW Plt Count MPV Immature Gran % (Auto) Neut % (Auto) Lymph % (Auto) [place] % (Auto) Eos % (Auto) Baso % (Auto) Lymph # (Auto) [place] # (Auto) Eos # (Auto) Baso # (Auto) Abs Immat Gran (auto) Absolute Neuts (auto) Absolute Nucleated RBC Nucleated RBC % (auto) Smear Tech's Comments VBG pH VBG pCO2 VBG pO2 VBG HCO3 VBG O2 Saturation VBG Base Excess Sodium Potassium Chloride Carbon Dioxide Anion Gap BUN Creatinine Estim Creat Clear Calc Estimated GFR POC Glucose 143 H Random Glucose Calcium Magnesium Total Bilirubin AST ALT Alkaline Phosphatase Total Creatine Kinase Total Protein Albumin Lipase Urine Color Urine Appearance Urine pH Ur Specific [place] Urine Protein Urine Glucose (UA) Urine Ketones Urine Blood Urine Nitrite Ur Leukocyte Esterase Urine RBC Urine WBC Ur Squamous Epith Cells Urine Bacteria Hyaline Casts Valproic Acid Ethyl Alcohol COVID-19 ([facility]) COVID-19 Clin Com Influenza Type A (PCR) Influenza Type B (PCR) RSV RNA Qual (PCR) SARS-CoV-2 RNA (RT-PCR) Imaging Radiology Impressions: ITS Impressions Chest X-Ray 04/13/23 13:55 IMPRESSION: Unremarkable chest examination. Abdomen/Pelvis CT 04/13/23 16:54 IMPRESSION: No specific findings to explain patient's symptoms. Markedly enlarged prostate gland with diffuse bladder wall thickening. Fleischner guidelines were followed. Chest CTA 04/15/23 10:30 IMPRESSION: No evidence of pulmonary embolism. Bilateral lower lobe atelectasis or small infiltrates. VTE: negative Mental Status Exam Mental Status Exam Narrative: Pt asleep. Medications Medications Current Medications Acetaminophen (Acetaminophen 325 Mg Tablet) 650 mg PO Q6H PRN PRN Reason: Pain, Mild (Pain Scale 1-3) Albuterol Sulfate (Albuterol Sulfate (0.083%) 2.5 Mg/3 Ml Vial.Neb) 2.5 mg INHALE RQ4H PRN PRN Reason: Wheezing Atorvastatin Calcium (Atorvastatin Calcium 80 Mg Tablet) 80 mg PO BEDTIME [facility] Last Admin: 04/14/23 21:10 Dose: 80 mg Dexamethasone Sodium Phosphate (Dexamethasone Sod Phosphate 4 Mg/Ml Vial) 6 mg IVPUSH DAILY [facility] Stop: 04/24/23 09:01 Divalproex Sodium (Divalproex Sodium Er 500 Mg Tab.Er.24h) 2,000 mg PO BEDTIME [facility] Last Admin: 04/14/23 21:10 Dose: 2,000 mg Guaifenesin (Guaifenesin La 600 Mg Tab.Er.12h) 600 mg PO BID [facility] Sodium Chloride (Ns) 1,000 mls @ 100 mls/hr IVCONT .Q10H [facility] Lisinopril (Lisinopril 20 Mg Tablet) 20 mg PO DAILY [facility]; Protocol Last Admin: 04/15/23 07:52 Dose: 20 mg Melatonin (Melatonin 3 Mg Tablet) 9 mg PO BEDTIME [facility] Last Admin: 04/14/23 21:10 Dose: 9 mg Metformin HCl (Metformin Hcl Er 500 Mg Tab.Er.24h) 1,000 mg PO BID [facility] Last Admin: 04/15/23 07:51 Dose: 1,000 mg Metoprolol Succinate (Metoprolol Succinate Er 50 Mg Tab.Er.24h) 50 mg PO DAILY [facility]; Protocol Last Admin: 04/15/23 07:52 Dose: 50 mg Mirtazapine (Mirtazapine 30 Mg Tablet) 30 mg PO BEDTIME [facility] Last Admin: 04/14/23 21:11 Dose: 30 mg Multivitamins/Vitamin C (Multivitamin Tablet) 1 tab PO DAILY [facility] Last Admin: 04/15/23 07:52 Dose: 1 tab Olanzapine (Olanzapine 10 Mg Tablet) 10 mg PO BEDTIME [facility] Last Admin: 04/14/23 21:11 Dose: 10 mg Ondansetron HCl (Ondansetron Hcl 4 Mg/2 Ml Vial) 4 mg IVPUSH Q8H PRN PRN Reason: Nausea and Vomiting Pharmacy Consult (Consult Rx Perform Med Rec) 1 each MISCELLANE ONCE PRN PRN Reason: Consult order Sertraline HCl (Sertraline Hcl 50 Mg Tablet) 50 mg PO DAILY [facility] Last Admin: 04/15/23 07:52 Dose: 50 mg Sodium Chloride (0.9 % Sodium Chloride Flush 3 Ml Syringe) 3 ml IVFLUSH QSHIFT [facility] Trazodone HCl (Trazodone Hcl 50 Mg Tablet) 50 mg PO BEDTIME PRN PRN Reason: Insomnia Allergies Allergies Allergy/AdvReac Type Severity Reaction Status Date / Time No Known Allergies Allergy Verified 04/13/23 11:42 [No Known Allergies*] Assessment & Plan Assessment & Plan (1) Autism spectrum disorder: Status: Acute Code(s): F84.0 - Autistic disorder (2) Neurocognitive disorder: Status: Acute Code(s): R41.9 - Unspecified symptoms and signs involving cognitive functions and awareness Plan Mr. Meadows is a 62 year-old male admitted medically for hypoxia s/s to [facility]. Pt also found JEREMÍAS in setting of hypovolemia. Psychiatry asked to assess tremors secondary to depakote. Recommend pt to be assess once medically more stable, more alert, well hydrated. For now recheck depakote level, ammonia. Total time managing care of this patient today _30___ minutes.
--- NOTE | 2023-04-15 12:15 | PC.NURSE ---
Contact made to lab and phlebotomy regarding blood draw status-Glory in phleb notified of patient's current location, lab orders, and new room assignment.
--- NOTE | 2023-04-15 12:27 | PC.NURSE ---
Phlebotomy at bedside for draw, Bed assignment to floor at this time. Contact made to primary rn via tiger text.
--- NOTE | 2023-04-15 12:41 | PC.NURSE ---
Report given to Maureen on [facility].
[2023-04-15 12:44] LABS: Ammonia 37 umol/L (13-55)
[2023-04-15] MEDS: guaiFENesin LA 600 MG TAB.ER.12H PO ×2 (12:47→23:05)
[2023-04-15 12:57] LABS: Alanine Aminotransferase 120 U/L (0-40); Albumin Level 3.3 g/dL (3.5-5.0); Alkaline Phosphatase 44 U/L (39-117); Anion Gap 16 (12-20); Aspartate Amino Transferase 180 U/L (5-37); Bilirubin Total 0.5 mg/dL (0.0-1.0); Blood Urea Nitrogen 24 mg/dL (9-16); Calcium 8.2 mg/dL (8.4-10.2); Carbon Dioxide 24 mmol/L (22-29); Chloride 104 mmol/L (96-108); Creatinine Clr Calc Pharmacy 63.9; Estimated Glomerular Filt Rate 55; Glucose Random 162 mg/dL (60-115); Potassium 4.7 mmol/L (3.3-5.1); Sodium 139 mmol/L (135-145); Total Protein 6.1 g/dL (6.5-8.0)
[2023-04-15 13:07] LABS: Valproate 48.3 mcg/mL (50.0-100.0)
[2023-04-15 16:02] LABS: Glucose, Whole Blood 177 mg/dL (60-115)
[2023-04-15] MEDS: Divalproex Sodium ER 500 MG TAB.ER.24H 2000 MG PO (23:05)
[2023-04-15] MEDS: OLANZapine 10 MG TABLET PO (23:05)
[2023-04-15] MEDS: Mirtazapine 30 MG TABLET PO (23:05)
[2023-04-15] MEDS: Atorvastatin Calcium 80 MG TABLET PO (23:06)
[2023-04-15] MEDS: Melatonin 3 MG TABLET 9 MG PO (23:06)
[2023-04-16] VITALS (8 sets, daily range): BP systolic 108–140; BP diastolic 66–80; PULSE 50–73; RESP 16–20; TEMP 36.1–37.1; O2SAT 93–97
[2023-04-16 07:50] LABS: Glucose, Whole Blood 91 mg/dL (60-115)
--- NOTE | 2023-04-16 09:05 | P.PNIM_ITS ---
Subjective Subjective Date of Service: 04/16/23 Interval History: f/u on covid no acute resp distres, Physical Exam Vital Signs: Vital Signs: Last Vital Signs Temp 98.2 F 04/16/23 07:37 Pulse 55 04/16/23 07:37 Resp 16 04/16/23 07:37 BP 118/75 04/16/23 07:37 Pulse Ox 93 04/16/23 07:37 O2 Del Method Nasal Cannula 04/16/23 07:37 O2 Flow Rate 3 04/16/23 07:37 BMI result Body Mass Index 30.4 Const: Other: General: AO X 3, no acute distress Resp: CTA bilateral CVS: S1,S2,RRR GI: +BS, NT, no distention Skin: No rash Neuro: motor grossly intact Psych: appropriate affect Objective Data Active Medications Acetaminophen (Acetaminophen 325 Mg Tablet) 650 mg PO Q6H PRN PRN Reason: Pain, Mild (Pain Scale 1-3) Albuterol Sulfate (Albuterol Sulfate (0.083%) 2.5 Mg/3 Ml Vial.Neb) 2.5 mg INHALE RQ4H PRN PRN Reason: Wheezing Atorvastatin Calcium (Atorvastatin Calcium 80 Mg Tablet) 80 mg PO BEDTIME [facility] Last Admin: 04/15/23 23:06 Dose: 80 mg Documented By: MERCEDES Dexamethasone Sodium Phosphate (Dexamethasone Sod Phosphate 4 Mg/Ml Vial) 6 mg IVPUSH DAILY [facility] Stop: 04/24/23 09:01 Divalproex Sodium (Divalproex Sodium Er 500 Mg Tab.Er.24h) 2,000 mg PO BEDTIME [facility] Last Admin: 04/15/23 23:05 Dose: 2,000 mg Documented By: MERCEDES Guaifenesin (Guaifenesin La 600 Mg Tab.Er.12h) 600 mg PO BID [facility] Last Admin: 04/15/23 23:05 Dose: 600 mg Documented By: MERCEDES Sodium Chloride (Ns) 1,000 mls @ 100 mls/hr IVCONT .Q10H [facility] Last Admin: 04/15/23 23:06 Dose: 100 mls/hr Documented By: MERCEDES Lisinopril (Lisinopril 20 Mg Tablet) 20 mg PO DAILY [facility]; Protocol Last Admin: 04/15/23 07:52 Dose: 20 mg Documented By: BETTE Melatonin (Melatonin 3 Mg Tablet) 9 mg PO BEDTIME [facility] Last Admin: 04/15/23 23:06 Dose: 9 mg Documented By: MERCEDES Metformin HCl (Metformin Hcl Er 500 Mg Tab.Er.24h) 1,000 mg PO BID [facility] Last Admin: 04/15/23 23:05 Dose: 1,000 mg Documented By: MERCEDES Metoprolol Succinate (Metoprolol Succinate Er 50 Mg Tab.Er.24h) 50 mg PO DAILY [facility]; Protocol Last Admin: 04/15/23 07:52 Dose: 50 mg Documented By: BETTE Mirtazapine (Mirtazapine 30 Mg Tablet) 30 mg PO BEDTIME [facility] Last Admin: 04/15/23 23:05 Dose: 30 mg Documented By: MERCEDES Multivitamins/Vitamin C (Multivitamin Tablet) 1 tab PO DAILY [facility] Last Admin: 04/15/23 07:52 Dose: 1 tab Documented By: BETTE Olanzapine (Olanzapine 10 Mg Tablet) 10 mg PO BEDTIME [facility] Last Admin: 04/15/23 23:05 Dose: 10 mg Documented By: MERCEDES Ondansetron HCl (Ondansetron Hcl 4 Mg/2 Ml Vial) 4 mg IVPUSH Q8H PRN PRN Reason: Nausea and Vomiting Pharmacy Consult (Consult Rx Perform Med Rec) 1 each MISCELLANE ONCE PRN PRN Reason: Consult order Sertraline HCl (Sertraline Hcl 50 Mg Tablet) 50 mg PO DAILY [facility] Last Admin: 04/15/23 07:52 Dose: 50 mg Documented By: BETTE Sodium Chloride (0.9 % Sodium Chloride Flush 3 Ml Syringe) 3 ml IVFLUSH QSHIFT [facility] Last Admin: 04/15/23 23:18 Dose: Not Given Documented By: MERCEDES Non-Admin Reason: IV Running Trazodone HCl (Trazodone Hcl 50 Mg Tablet) 50 mg PO BEDTIME PRN PRN Reason: Insomnia Labs 04/13/23 12:02 04/15/23 12:28 Labs: Laboratory Results - last 24 hr 04/15/23 04/15/23 04/15/23 10:31 11:42 12:28 Anion Gap Estim Creat Clear Calc Estimated GFR POC Glucose 143 H Random Glucose Calcium Total Bilirubin AST ALT Alkaline Phosphatase Ammonia 37 Total Protein Albumin Valproic Acid Influenza Type A (PCR) NEGATIVE Influenza Type B (PCR) NEGATIVE RSV RNA Qual (PCR) NEGATIVE SARS-CoV-2 RNA (RT-PCR) POSITIVE A 04/15/23 04/15/23 04/15/23 12:28 12:28 15:57 Anion Gap 16 Estim Creat Clear Calc 63.9 Estimated GFR 55 POC Glucose 177 H Random Glucose 162 H Calcium 8.2 L D Total Bilirubin 0.5 AST 180 H ALT 120 H Alkaline Phosphatase 44 Ammonia Total Protein 6.1 L Albumin 3.3 L Valproic Acid 48.3 L Influenza Type A (PCR) Influenza Type B (PCR) RSV RNA Qual (PCR) SARS-CoV-2 RNA (RT-PCR) 04/16/23 07:46 Anion Gap Estim Creat Clear Calc Estimated GFR POC Glucose 91 Random Glucose Calcium Total Bilirubin AST ALT Alkaline Phosphatase Ammonia Total Protein Albumin Valproic Acid Influenza Type A (PCR) Influenza Type B (PCR) RSV RNA Qual (PCR) SARS-CoV-2 RNA (RT-PCR) Assessment and Plan (1) COVID-19: Status: Acute (2) JEREMÍAS (acute kidney injury): Status: Acute (3) Weakness: Status: Acute Plan 62-year-old man with history of autism, diabetes and hypertension admitted with hypoxia secondary to COVID-19 Acute hypoxic res failure due too COVID-19 continue IV Decadron, O2 to keep sat around 93 JEREMÍAS--likely pre renal azotemia, hydrate and repeat level Hypertension, coninue metoprolol , hold lisinopril until renal function improve Diabetes mellitus type 2 Sliding scale, ADA diet Mental health Continue home medications DVT prophylaxis with heparin need for inaptient: IV steroid for acute resp failure due to covid, and need for frequent O2 check oxygen adjustement Time Spent With Patient Time: Total time managing care of this patient today ____ minutes. Quality Stroke Does the patient have a stroke diagnosis?: No VTE Prior VTE?: No VTE Risk Level:: Medical - moderate - high VTE Device Contraindication: Treatment Not Indicated VTE Drug Contraindication: N/A - Med Ordered
[2023-04-16 09:47] LABS: Alanine Aminotransferase 89 U/L (0-40); Albumin Level 3.3 g/dL (3.5-5.0); Alkaline Phosphatase 47 U/L (39-117); Anion Gap 21 (12-20); Aspartate Amino Transferase 104 U/L (5-37); Bilirubin Total 0.4 mg/dL (0.0-1.0); Blood Urea Nitrogen 24 mg/dL (9-16); Calcium 7.8 mg/dL (8.4-10.2); Carbon Dioxide 18 mmol/L (22-29); Chloride 108 mmol/L (96-108); Creatinine Clr Calc Pharmacy 77.5; Estimated Glomerular Filt Rate > 60; Glucose Random 94 mg/dL (60-115); Potassium 6.1 mmol/L (3.3-5.1); Sodium 141 mmol/L (135-145); Total Protein 5.8 g/dL (6.5-8.0)
[2023-04-16 10:13] LABS: Potassium 4.4 mmol/L (3.3-5.1)
--- NOTE | 2023-04-16 10:18 | MHC.CM.PN ---
IMM 04/16/23 DELIVERED TO SISTER LUIS FERNANDO AT 9:35AM AT NUMBER ON FILE, LUIS FERNANDO REPORTS PT LIVES IN HIS OWN APT, PT GOES TO [facility], JOSE IS HIS STAFF WHO SEE'S HIM 2XWK AND BRINGS PT CLEANING/GROCERY SHOPPING AND TO APPTS, PT AMBULATES INDEPENDENTLY AND HAS NO DME. PLAN WILL BE FOR PT TO RETURN HOME AND JOSE WILL TRANSPORT.
[2023-04-16] MEDS: 0.9 % Sodium Chloride 1,000 ML 100 ML IVCONT ×2 (10:55→17:49)
[2023-04-16] MEDS: Multivitamin TABLET 1 TAB PO (10:56)
[2023-04-16] MEDS: guaiFENesin LA 600 MG TAB.ER.12H PO ×2 (10:56→22:11)
[2023-04-16] MEDS: Sertraline HCL 50 MG TABLET PO (10:56)
[2023-04-16] MEDS: Metoprolol Succinate ER 50 MG TAB.ER.24H PO (10:56)
[2023-04-16] MEDS: metFORMIN HCl ER 500 MG TAB.ER.24H 1000 MG PO ×2 (10:56→22:11)
[2023-04-16] MEDS: dexAMETHasone sod phosphate 4 MG/ML VIAL 6 MG IVPUSH (10:57)
[2023-04-16] MEDS: Atorvastatin Calcium 80 MG TABLET PO (22:11)
[2023-04-16] MEDS: OLANZapine 10 MG TABLET PO (22:11)
[2023-04-16] MEDS: Divalproex Sodium ER 500 MG TAB.ER.24H 2000 MG PO (22:11)
[2023-04-16] MEDS: Mirtazapine 30 MG TABLET PO (22:11)
[2023-04-16] MEDS: Melatonin 3 MG TABLET 9 MG PO (22:12)
[2023-04-16] MEDS: 0.9 % Sodium Chloride Flush 3 ML SYRINGE IVFLUSH (22:12)
[2023-04-16] MEDS: guaiFENesin 100 MG/5 ML LIQUID PO (23:27)
[2023-04-17 03:26] VITALS: BP 116/67; PULSE 50; RESP 20; TEMP 36.6; O2SAT 94
[2023-04-17 03:31] VITALS: BP 116/67; PULSE 50; RESP 20; TEMP 36.6; O2SAT 94
[2023-04-17] MEDS: 0.9 % Sodium Chloride 1,000 ML 100 ML IVCONT (04:35)
[2023-04-17 07:33] VITALS: BP 124/70; PULSE 53; RESP 20; TEMP 36.7; O2SAT 92
[2023-04-17 07:41] LABS: Glucose, Whole Blood 88 mg/dL (60-115)
--- NOTE | 2023-04-17 09:52 | P.PNIM_ITS ---
Subjective Subjective Date of Service: 04/17/23 Interval History: f/u on covid no acute resp distres, no new complaint, still on O2 Physical Exam Vital Signs: Vital Signs: Last Vital Signs Temp 98.0 F 04/17/23 07:33 Pulse 53 04/17/23 07:33 Resp 20 04/17/23 07:33 BP 124/70 04/17/23 07:33 Pulse Ox 92 04/17/23 07:33 O2 Del Method Nasal Cannula 04/17/23 07:33 O2 Flow Rate 3 04/17/23 07:33 BMI result Body Mass Index 30.4 Const: Other: General: AO X 3, no acute distress Resp: CTA bilateral CVS: S1,S2,RRR GI: +BS, NT, no distention Skin: No rash Neuro: motor grossly intact Psych: appropriate affect Objective Data Active Medications Acetaminophen (Acetaminophen 325 Mg Tablet) 650 mg PO Q6H PRN PRN Reason: Pain, Mild (Pain Scale 1-3) Albuterol Sulfate (Albuterol Sulfate (0.083%) 2.5 Mg/3 Ml Vial.Neb) 2.5 mg INHALE RQ4H PRN PRN Reason: Wheezing Atorvastatin Calcium (Atorvastatin Calcium 80 Mg Tablet) 80 mg PO BEDTIME [facility] Last Admin: 04/16/23 22:11 Dose: 80 mg Documented By: CYNDIE Dexamethasone Sodium Phosphate (Dexamethasone Sod Phosphate 4 Mg/Ml Vial) 6 mg IVPUSH DAILY [facility] Stop: 04/24/23 09:01 Last Admin: 04/16/23 10:57 Dose: 6 mg Documented By: NIGEL Divalproex Sodium (Divalproex Sodium Er 500 Mg Tab.Er.24h) 2,000 mg PO BEDTIME [facility] Last Admin: 04/16/23 22:11 Dose: 2,000 mg Documented By: CYNDIE Guaifenesin (Guaifenesin La 600 Mg Tab.Er.12h) 600 mg PO BID [facility] Last Admin: 04/16/23 22:11 Dose: 600 mg Documented By: CYNDIE Guaifenesin (Guaifenesin 100 Mg/5 Ml Liquid) 5 ml PO Q6H PRN PRN Reason: cough Last Admin: 04/16/23 23:27 Dose: 5 ml Documented By: CYNDIE Sodium Chloride (Ns) 1,000 mls @ 100 mls/hr IVCONT .Q10H [facility] Last Infusion: 04/17/23 09:32 Dose: 0 mls/hr Documented By: NIGEL Lisinopril (Lisinopril 20 Mg Tablet) 20 mg PO DAILY [facility]; Protocol Last Admin: 04/15/23 07:52 Dose: 20 mg Documented By: BETTE Melatonin (Melatonin 3 Mg Tablet) 9 mg PO BEDTIME [facility] Last Admin: 04/16/23 22:12 Dose: 9 mg Documented By: CYNDIE Metformin HCl (Metformin Hcl Er 500 Mg Tab.Er.24h) 1,000 mg PO BID [facility] Last Admin: 04/16/23 22:11 Dose: 1,000 mg Documented By: CYNDIE Metoprolol Succinate (Metoprolol Succinate Er 50 Mg Tab.Er.24h) 50 mg PO DAILY [facility]; Protocol Last Admin: 04/16/23 10:56 Dose: 50 mg Documented By: NIGEL Mirtazapine (Mirtazapine 30 Mg Tablet) 30 mg PO BEDTIME [facility] Last Admin: 04/16/23 22:11 Dose: 30 mg Documented By: CYNDIE Multivitamins/Vitamin C (Multivitamin Tablet) 1 tab PO DAILY [facility] Last Admin: 04/16/23 10:56 Dose: 1 tab Documented By: NIGEL Olanzapine (Olanzapine 10 Mg Tablet) 10 mg PO BEDTIME [facility] Last Admin: 04/16/23 22:11 Dose: 10 mg Documented By: CYNDIE Ondansetron HCl (Ondansetron Hcl 4 Mg/2 Ml Vial) 4 mg IVPUSH Q8H PRN PRN Reason: Nausea and Vomiting Pharmacy Consult (Consult Rx Perform Med Rec) 1 each MISCELLANE ONCE PRN PRN Reason: Consult order Sertraline HCl (Sertraline Hcl 50 Mg Tablet) 50 mg PO DAILY [facility] Last Admin: 04/16/23 10:56 Dose: 50 mg Documented By: NIGEL Sodium Chloride (0.9 % Sodium Chloride Flush 3 Ml Syringe) 3 ml IVFLUSH QSHIFT [facility] Last Admin: 04/17/23 09:32 Dose: Not Given Documented By: NIGEL Non-Admin Reason: No Access Trazodone HCl (Trazodone Hcl 50 Mg Tablet) 50 mg PO BEDTIME PRN PRN Reason: Insomnia Labs 04/13/23 12:02 04/16/23 09:56 Labs: Laboratory Results - last 24 hr 04/17/23 07:29 POC Glucose 88 Assessment and Plan (1) COVID-19: Status: Acute (2) JEREMÍAS (acute kidney injury): Status: Acute (3) Weakness: Status: Acute Plan 62-year-old man with history of autism, diabetes and hypertension admitted with hypoxia secondary to COVID-19 Acute hypoxic res failure due too COVID-19, still O2 dependent continue IV Decadron, O2 to keep sat around 93, wean JEREMÍAS--likely pre renal and resolved with IVF False High K d/t hemolyis, normal on repeat Hypertension, coninue metoprolol , hold lisinopril until renal function improve Diabetes mellitus type 2 Sliding scale, ADA diet Mental health Continue home medications DVT prophylaxis with heparin need for inaptient: IV steroid for acute resp failure due to covid, and need for frequent O2 check oxygen adjustement Time Spent With Patient Time: Total time managing care of this patient today ____ minutes. Quality Stroke Does the patient have a stroke diagnosis?: No VTE Prior VTE?: No VTE Risk Level:: Medical - moderate - high VTE Device Contraindication: Treatment Not Indicated VTE Drug Contraindication: N/A - Med Ordered
[2023-04-17] MEDS: Metoprolol Succinate ER 50 MG TAB.ER.24H PO (10:39)
[2023-04-17] MEDS: Multivitamin TABLET 1 TAB PO (10:40)
[2023-04-17] MEDS: guaiFENesin LA 600 MG TAB.ER.12H PO ×2 (10:40→21:05)
[2023-04-17] MEDS: metFORMIN HCl ER 500 MG TAB.ER.24H 1000 MG PO ×2 (10:40→21:05)
[2023-04-17] MEDS: Sertraline HCL 50 MG TABLET PO (10:40)
[2023-04-17 11:29] VITALS: BP 116/58; PULSE 58; RESP 20; TEMP 37.1; O2SAT 92
[2023-04-17 11:40] LABS: Glucose, Whole Blood 156 mg/dL (60-115)
[2023-04-17] MEDS: dexAMETHasone sod phosphate 4 MG/ML VIAL 6 MG IVPUSH (11:45)
--- NOTE | 2023-04-17 12:11 | MHC.CM.PN ---
CM RECEIVED A CALL FROM PT'S INTEGRITY ANALYST JOSE WHO CM WAS GIVEN PERMISSION TO SPEAK WITH, JOSE HAD CONCERNS REGARDING PT'S PSYCHIATRIC MEDICATION AND REPORTS PT HAS HAD TREMORS SINCE HE WAS STARTED ON DEPAKOTE ON INPT PSYCH HERE AT [facility], JOSE REPORTS DR CANSECO WAS THE PSYCHIATRIST AND REPORTS TREMORS HAS INCREASED TO THE POINT PT WAS HAVING DIFFICULTY FEEDING HIMSELF. HOSPITALIST NOTIFIED VIA [employer] [facility]. JOSE ALSO REPORTS SHE IS CONCERNED ABOUT SWELLING IN PT'S LEGS THAT SHE THOUGH WAS THE REASON PT COULD BARELY WALK PRIOR TO ADMISSION, CM WILL FOLLOW UP W/NURSING, PT MAY NEED PT EVAL FOR DISPO
[2023-04-17] MEDS: 0.9 % Sodium Chloride Flush 3 ML SYRINGE IVFLUSH (15:36)
[2023-04-17 15:47] VITALS: BP 132/70; PULSE 59; RESP 18; TEMP 37; O2SAT 90
--- NOTE | 2023-04-17 17:14 | PC.NURSE ---
3.55 seconds pause while eating dinner , cardiac rhythm is sinus tyron hr 52-58 per minute , Pt denied any CP, no sob ,no dizziness , there was no choking episode . DR Guillory was notified
[2023-04-17 19:41] VITALS: BP 124/68; PULSE 56; RESP 19; TEMP 36.7; O2SAT 92
[2023-04-17] MEDS: Divalproex Sodium ER 500 MG TAB.ER.24H 2000 MG PO (21:04)
[2023-04-17] MEDS: Melatonin 3 MG TABLET 9 MG PO (21:05)
[2023-04-17] MEDS: Atorvastatin Calcium 80 MG TABLET PO (21:05)
[2023-04-17] MEDS: OLANZapine 10 MG TABLET PO (21:05)
[2023-04-17] MEDS: Mirtazapine 30 MG TABLET PO (21:05)
[2023-04-18] VITALS (9 sets, daily range): BP systolic 120–137; BP diastolic 53–81; PULSE 42–58; RESP 18–20; TEMP 36.3–37.1; O2SAT 91–96
[2023-04-18] MEDS: 0.9 % Sodium Chloride Flush 3 ML SYRINGE IVFLUSH ×3 (01:07→20:33)
[2023-04-18] MEDS: Acetaminophen 325 MG TABLET 650 MG PO (08:42)
[2023-04-18] MEDS: dexAMETHasone sod phosphate 4 MG/ML VIAL 6 MG IVPUSH (08:42)
[2023-04-18] MEDS: Multivitamin TABLET 1 TAB PO (08:42)
[2023-04-18] MEDS: guaiFENesin LA 600 MG TAB.ER.12H PO ×2 (08:43→20:32)
[2023-04-18] MEDS: Sertraline HCL 50 MG TABLET PO (08:43)
[2023-04-18] MEDS: Metoprolol Succinate ER 50 MG TAB.ER.24H PO (08:43)
[2023-04-18] MEDS: metFORMIN HCl ER 500 MG TAB.ER.24H 1000 MG PO ×2 (08:43→20:32)
[2023-04-18] MEDS: guaiFENesin 100 MG/5 ML LIQUID PO (08:43)
--- NOTE | 2023-04-18 10:16 | HO.PM.IMPN ---
Subjective Subjective Date of Service: 04/20/23 Interval History: f/u on covid doing much better, Physical Exam Vital Signs: Vital Signs: Last Vital Signs Temp 98.0 F 04/18/23 07:45 Pulse 51 04/18/23 08:31 Resp 20 04/18/23 07:45 BP 132/70 04/18/23 08:31 Pulse Ox 92 04/18/23 08:31 O2 Del Method Nasal Cannula 04/18/23 07:45 O2 Flow Rate 2 04/18/23 07:45 BMI result Body Mass Index 30.4 Const: Other: General: AO X 3, no acute distress Resp: CTA bilateral CVS: S1,S2,RRR GI: +BS, NT, no distention Skin: No rash Neuro: motor grossly intact Psych: appropriate affect Objective Data Active Medications Acetaminophen (Acetaminophen 325 Mg Tablet) 650 mg PO Q6H PRN PRN Reason: Pain, Mild (Pain Scale 1-3) Last Admin: 04/18/23 08:42 Dose: 650 mg Documented By: MOUSTAPHA Albuterol Sulfate (Albuterol Sulfate (0.083%) 2.5 Mg/3 Ml Vial.Neb) 2.5 mg INHALE RQ4H PRN PRN Reason: Wheezing Atorvastatin Calcium (Atorvastatin Calcium 80 Mg Tablet) 80 mg PO BEDTIME [facility] Last Admin: 04/17/23 21:05 Dose: 80 mg Documented By: AC Dexamethasone Sodium Phosphate (Dexamethasone Sod Phosphate 4 Mg/Ml Vial) 6 mg IVPUSH DAILY [facility] Stop: 04/24/23 09:01 Last Admin: 04/18/23 08:42 Dose: 6 mg Documented By: MOUSTAPHA Divalproex Sodium (Divalproex Sodium Er 500 Mg Tab.Er.24h) 2,000 mg PO BEDTIME [facility] Last Admin: 04/17/23 21:04 Dose: 2,000 mg Documented By: AC Guaifenesin (Guaifenesin La 600 Mg Tab.Er.12h) 600 mg PO BID [facility] Last Admin: 04/18/23 08:43 Dose: 600 mg Documented By: MOUSTAPHA Guaifenesin (Guaifenesin 100 Mg/5 Ml Liquid) 5 ml PO Q6H PRN PRN Reason: cough Last Admin: 04/18/23 08:43 Dose: 5 ml Documented By: MOUSTAPHA Lisinopril (Lisinopril 20 Mg Tablet) 20 mg PO DAILY [facility]; Protocol Last Admin: 04/15/23 07:52 Dose: 20 mg Documented By: BETTE Melatonin (Melatonin 3 Mg Tablet) 9 mg PO BEDTIME [facility] Last Admin: 04/17/23 21:05 Dose: 9 mg Documented By: AC Metformin HCl (Metformin Hcl Er 500 Mg Tab.Er.24h) 1,000 mg PO BID [facility] Last Admin: 04/18/23 08:43 Dose: 1,000 mg Documented By: MOUSTAPHA Metoprolol Succinate (Metoprolol Succinate Er 50 Mg Tab.Er.24h) 50 mg PO DAILY [facility]; Protocol Last Admin: 04/18/23 08:43 Dose: 50 mg Documented By: MOUSTAPHA Mirtazapine (Mirtazapine 30 Mg Tablet) 30 mg PO BEDTIME [facility] Last Admin: 04/17/23 21:05 Dose: 30 mg Documented By: AC Multivitamins/Vitamin C (Multivitamin Tablet) 1 tab PO DAILY [facility] Last Admin: 04/18/23 08:42 Dose: 1 tab Documented By: MOUSTAPHA Olanzapine (Olanzapine 10 Mg Tablet) 10 mg PO BEDTIME [facility] Last Admin: 04/17/23 21:05 Dose: 10 mg Documented By: AC Ondansetron HCl (Ondansetron Hcl 4 Mg/2 Ml Vial) 4 mg IVPUSH Q8H PRN PRN Reason: Nausea and Vomiting Pharmacy Consult (Consult Rx Perform Med Rec) 1 each MISCELLANE ONCE PRN PRN Reason: Consult order Sertraline HCl (Sertraline Hcl 50 Mg Tablet) 50 mg PO DAILY [facility] Last Admin: 04/18/23 08:43 Dose: 50 mg Documented By: MOUSTAPHA Sodium Chloride (0.9 % Sodium Chloride Flush 3 Ml Syringe) 3 ml IVFLUSH QSHIFT [facility] Last Admin: 04/18/23 08:43 Dose: 3 ml Documented By: MOUSTAPHA Trazodone HCl (Trazodone Hcl 50 Mg Tablet) 50 mg PO BEDTIME PRN PRN Reason: Insomnia Labs 04/13/23 12:02 04/16/23 09:56 Labs: Laboratory Results - last 24 hr 04/17/23 11:32 POC Glucose 156 H Assessment and Plan (1) COVID-19: Status: Acute (2) JEREMÍAS (acute kidney injury): Status: Acute Plan 62-year-old man with history of autism, diabetes and hypertension admitted with hypoxia secondary to COVID-19 Acute hypoxic res failure due too COVID-19, overall better continue Decadron, change to PO, monitor off O2 JEREMÍAS--likely pre renal and resolved with IVF False High K d/t hemolyis, normal on repeat Hypertension, coninue metoprolol , hold lisinopril until renal function improve Diabetes mellitus type 2 Sliding scale, ADA diet Mental health Continue home medications, psych consult for med adjustment DVT prophylaxis Lovenox need for inaptient: IV steroid for acute resp failure due to covid, and need for frequent O2 check oxygen adjustement PT eval for placement Time Spent With Patient Time: Total time managing care of this patient today ____ minutes. Quality Stroke Does the patient have a stroke diagnosis?: No VTE Prior VTE?: No VTE Risk Level:: Medical - moderate - high VTE Device Contraindication: Treatment Not Indicated VTE Drug Contraindication: N/A - Med Ordered
[2023-04-18] MEDS: Enoxaparin Sodium 40 MG/0.4 ML SYRINGE SUBCUT (11:44)
--- NOTE | 2023-04-18 13:56 | MHC.CM.PN ---
EMR reviewed and per MD rounds, pt is not medically cleared for D/C with continued hypoxia and covid symptoms. SNF referrals sent via [facility]port, a few facilities are following. CM will continue to follow.
--- NOTE | 2023-04-18 17:03 | P.CNPS_ITS ---
History of Present Illness Date of Service: 04/18/2023 Chief Complaint: covid hypoxia Reason for Consult: tremor Requesting physician: Anthony Guillory Discussed with referring provider: Yes Sources of Information: patient interviewed, chart reviewed and crisis/core team assessment reviewed HPI Narrative: Interim Hx: pt in bed. He is alert. He does report that he feels better. Noted resting tremor, more pronounced on left hand and also action tremor. 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 Past Psychiatric History: Inpt: [facility] 2022 OP: [facility] Past medication trials: remeron, cymbalta, wellbutrin, olanzapine Review of Systems Review of Systems Decrease in appetite respiratory reported some mild shortness of breath cardiovascular denies chest pain gastrointestinal denies any dysphagia abdominal pain nausea vomiting or diarrhea genitourinary denies any dysuria frequency or hematuria musculoskeletal denies any joint pain or swelling neuropsych denies any weakness or seizures all other systems reviewed are negative [facility] Medical History (Updated 04/15/23 @ 11:23 by Carol Menchaca NP) Autism spectrum disorder Diabetes mellitus Hypertension Family History: unknown Social History: lives along with supports from [employer] Trauma History: unknown Diagnostics Vital Signs (24Hr): Vital Signs - 24 hr 04/17/23 19:41 04/18/23 00:00 04/18/23 04:00 Temperature 98.0 F 97.3 F 98.1 F Pulse Rate 56 50 58 Respiratory Rate 19 20 20 Blood Pressure 124/68 132/81 134/72 Pulse Oximetry 92 93 91 L Oxygen Delivery Method Nasal Cannula Room Air Nasal Cannula Oxygen Flow Rate 2 2 04/18/23 07:45 04/18/23 08:31 04/18/23 11:45 Temperature 98.0 F 97.3 F Pulse Rate 51 51 51 Respiratory Rate 20 20 Blood Pressure 132/70 132/70 123/70 Pulse Oximetry 92 92 94 Oxygen Delivery Method Nasal Cannula Nasal Cannula Oxygen Flow Rate 2 2 04/18/23 14:10 04/18/23 15:22 Temperature 98.6 F Pulse Rate 46 L 47 L Respiratory Rate 18 18 Blood Pressure 133/57 L 131/80 Pulse Oximetry 93 96 Oxygen Delivery Method Nasal Cannula Nasal Cannula Oxygen Flow Rate 2 2 BMI result Body Mass Index 30.4 Labs 04/13/23 12:02 04/16/23 09:56 Labs: Laboratory Results - last 48 hr 04/17/23 04/17/23 07:29 11:32 POC Glucose 88 156 H Imaging Radiology Impressions: ITS Impressions Chest X-Ray 04/13/23 13:55 IMPRESSION: Unremarkable chest examination. Abdomen/Pelvis CT 04/13/23 16:54 IMPRESSION: No specific findings to explain patient's symptoms. Markedly enlarged prostate gland with diffuse bladder wall thickening. Fleischner guidelines were followed. Chest CTA 04/15/23 10:30 IMPRESSION: No evidence of pulmonary embolism. Bilateral lower lobe atelectasis or small infiltrates. VTE: negative Mental Status Exam Mental Status Exam Narrative: Appearance: wearing hospital gown, fair hygiene, in NAD Behavior: calm Psychomotor: no agitation or retardation noted Speech: minimally spontaneous, single word answers TP: single word answers TC: feeling better Mood: okay Affect: constricted. SI: denies HI: denies VH/AH: no s/s Delusions: no overt delusions noted or reported Insight/judgment: fair x 2. alert Medications Medications Current Medications Acetaminophen (Acetaminophen 325 Mg Tablet) 650 mg PO Q6H PRN PRN Reason: Pain, Mild (Pain Scale 1-3) Last Admin: 04/18/23 08:42 Dose: 650 mg Albuterol Sulfate (Albuterol Sulfate (0.083%) 2.5 Mg/3 Ml Vial.Neb) 2.5 mg INHALE RQ4H PRN PRN Reason: Wheezing Atorvastatin Calcium (Atorvastatin Calcium 80 Mg Tablet) 80 mg PO BEDTIME REPLACED BY [facility] Last Admin: 04/17/23 21:05 Dose: 80 mg Dexamethasone Sodium Phosphate (Dexamethasone Sod Phosphate 4 Mg/Ml Vial) 6 mg IVPUSH DAILY [facility] Stop: 04/24/23 09:01 Last Admin: 04/18/23 08:42 Dose: 6 mg Divalproex Sodium (Divalproex Sodium Er 500 Mg Tab.Er.24h) 2,000 mg PO BEDTIME [facility] Last Admin: 04/17/23 21:04 Dose: 2,000 mg Enoxaparin Sodium (Enoxaparin Sodium 40 Mg/0.4 Ml Syringe) 40 mg SUBCUT Q24H [facility] Last Admin: 04/18/23 11:44 Dose: 40 mg Guaifenesin (Guaifenesin La 600 Mg Tab.Er.12h) 600 mg PO BID [facility] Last Admin: 04/18/23 08:43 Dose: 600 mg Guaifenesin (Guaifenesin 100 Mg/5 Ml Liquid) 5 ml PO Q6H PRN PRN Reason: cough Last Admin: 04/18/23 08:43 Dose: 5 ml Lisinopril (Lisinopril 20 Mg Tablet) 20 mg PO DAILY [facility]; Protocol Last Admin: 04/15/23 07:52 Dose: 20 mg Melatonin (Melatonin 3 Mg Tablet) 9 mg PO BEDTIME [facility] Last Admin: 04/17/23 21:05 Dose: 9 mg Metformin HCl (Metformin Hcl Er 500 Mg Tab.Er.24h) 1,000 mg PO BID [facility] Last Admin: 04/18/23 08:43 Dose: 1,000 mg Metoprolol Succinate (Metoprolol Succinate Er 50 Mg Tab.Er.24h) 50 mg PO DAILY [facility]; Protocol Last Admin: 04/18/23 08:43 Dose: 50 mg Mirtazapine (Mirtazapine 30 Mg Tablet) 30 mg PO BEDTIME [facility] Last Admin: 04/17/23 21:05 Dose: 30 mg Multivitamins/Vitamin C (Multivitamin Tablet) 1 tab PO DAILY [facility] Last Admin: 04/18/23 08:42 Dose: 1 tab Olanzapine (Olanzapine 10 Mg Tablet) 10 mg PO BEDTIME [facility] Last Admin: 04/17/23 21:05 Dose: 10 mg Ondansetron HCl (Ondansetron Hcl 4 Mg/2 Ml Vial) 4 mg IVPUSH Q8H PRN PRN Reason: Nausea and Vomiting Pharmacy Consult (Consult Rx Perform Med Rec) 1 each MISCELLANE ONCE PRN PRN Reason: Consult order Sertraline HCl (Sertraline Hcl 50 Mg Tablet) 50 mg PO DAILY [facility] Last Admin: 04/18/23 08:43 Dose: 50 mg Sodium Chloride (0.9 % Sodium Chloride Flush 3 Ml Syringe) 3 ml IVFLUSH QSHIFT REPLACED BY [facility] Last Admin: 04/18/23 08:43 Dose: 3 ml Trazodone HCl (Trazodone Hcl 50 Mg Tablet) 50 mg PO BEDTIME PRN PRN Reason: Insomnia Allergies Allergies Allergy/AdvReac Type Severity Reaction Status Date / Time No Known Allergies Allergy Verified 04/13/23 11:42 [No Known Allergies*] Assessment & Plan Assessment & Plan (1) Neurocognitive disorder: Status: Acute Code(s): R41.9 - Unspecified symptoms and signs involving cognitive functions and awareness (2) Autism spectrum disorder: Status: Acute Code(s): F84.0 - Autistic disorder Plan 62-year-old man with history of autism, diabetes and hypertension admitted with hypoxia secondary to COVID-19. Psychiatry asked to see pt due to tremors thought to be secondary to depakote Pt presents with both resting and action tremors, mild cogwheel bilat and some jerk-like movement noted(these were seen even prior to depakote use). PLAN- for resting and action tremors can try propanolol 20mg po BID- however, her HR today was 47- may want to wait before starting propanolol until pt more stable medically from covid/hypoxia. Total time managing care of this patient today ____ minutes.
[2023-04-18] MEDS: Melatonin 3 MG TABLET 9 MG PO (20:32)
[2023-04-18] MEDS: Divalproex Sodium ER 500 MG TAB.ER.24H 2000 MG PO (20:32)
[2023-04-18] MEDS: Atorvastatin Calcium 80 MG TABLET PO (20:32)
[2023-04-18] MEDS: OLANZapine 10 MG TABLET PO (20:33)
[2023-04-18] MEDS: Mirtazapine 30 MG TABLET PO (20:33)
[2023-04-19 03:15] VITALS: BP 133/58; PULSE 55; RESP 19; TEMP 37.2; O2SAT 94
[2023-04-19 08:03] VITALS: BP 125/58; PULSE 39; RESP 18; TEMP 36.3; O2SAT 95
[2023-04-19] MEDS: Sertraline HCL 50 MG TABLET PO (08:09)
[2023-04-19] MEDS: metFORMIN HCl ER 500 MG TAB.ER.24H 1000 MG PO ×2 (08:09→22:12)
[2023-04-19] MEDS: Multivitamin TABLET 1 TAB PO (08:09)
[2023-04-19] MEDS: guaiFENesin LA 600 MG TAB.ER.12H PO ×2 (08:09→22:12)
[2023-04-19] MEDS: 0.9 % Sodium Chloride Flush 3 ML SYRINGE IVFLUSH ×3 (08:10→22:13)
[2023-04-19] MEDS: dexAMETHasone sod phosphate 4 MG/ML VIAL 6 MG IVPUSH (08:10)
[2023-04-19] MEDS: Enoxaparin Sodium 40 MG/0.4 ML SYRINGE SUBCUT (11:55)
[2023-04-19] MEDS: Insulin Lispro 100 UNIT/ML 3 ML VIAL SUBCUT ×3 (11:58→22:11)
[2023-04-19 12:06] LABS: Glucose, Whole Blood 156 mg/dL (60-115)
[2023-04-19 13:08] VITALS: BP 112/69; PULSE 48; RESP 18; TEMP 36.6; O2SAT 96
[2023-04-19 16:00] LABS: Glucose, Whole Blood 164 mg/dL (60-115)
[2023-04-19 16:25] VITALS: BP 146/76; PULSE 44; RESP 18; TEMP 37.2; O2SAT 97
[2023-04-19 20:00] VITALS: BP 144/75; PULSE 44; RESP 18; TEMP 36.2; O2SAT 93
[2023-04-19 20:52] LABS: Glucose, Whole Blood 201 mg/dL (60-115)
[2023-04-19] MEDS: Mirtazapine 30 MG TABLET PO (22:12)
[2023-04-19] MEDS: OLANZapine 10 MG TABLET PO (22:12)
[2023-04-19] MEDS: Atorvastatin Calcium 80 MG TABLET PO (22:12)
[2023-04-19] MEDS: Melatonin 3 MG TABLET 9 MG PO (22:12)
[2023-04-19] MEDS: Divalproex Sodium ER 500 MG TAB.ER.24H 2000 MG PO (22:12)
[2023-04-19 23:37] VITALS: BP 161/84; PULSE 43; RESP 20; TEMP 36.1; O2SAT 94
[2023-04-20 04:00] VITALS: BP 141/78; PULSE 44; RESP 20; TEMP 36.1; O2SAT 94
[2023-04-20 07:57] VITALS: BP 141/79; PULSE 46; RESP 16; TEMP 36.1; O2SAT 93
[2023-04-20 08:01] LABS: Glucose, Whole Blood 87 mg/dL (60-115)
[2023-04-20 08:34] LABS: Hematocrit 34.8 % (42.0-52.0); Hemoglobin 11.6 g/dl (14.0-18.0); Mean Corpuscular HGB Conc 33.3 g/dl (31.0-36.0); Mean Corpuscular Hemoglobin 30.4 pg (27.0-33.0); Mean Corpuscular Volume 91.3 fL (80.0-98.0); Mean Platelet Volume 10.8 fL (9.4-12.4); Platelet Count 200 X10*3/uL (160-400); Red Blood Count 3.81 X10*6/uL (4.60-5.80); Red Cell Distribution Width 13.2 % (11.0-16.0); White Blood Count 6.4 X10*3/uL (4.8-10.8)
[2023-04-20 08:52] LABS: Anion Gap 15 (12-20); Blood Urea Nitrogen 22 mg/dL (9-16); Calcium 9.2 mg/dL (8.4-10.2); Carbon Dioxide 28 mmol/L (22-29); Chloride 101 mmol/L (96-108); Creatinine Clr Calc Pharmacy 82.1; Estimated Glomerular Filt Rate > 60; Glucose Random 93 mg/dL (60-115); Potassium 3.8 mmol/L (3.3-5.1); Sodium 140 mmol/L (135-145)
[2023-04-20] MEDS: Multivitamin TABLET 1 TAB PO (08:58)
[2023-04-20] MEDS: Sertraline HCL 50 MG TABLET PO (08:58)
[2023-04-20] MEDS: 0.9 % Sodium Chloride Flush 3 ML SYRINGE IVFLUSH ×3 (08:58→20:06)
[2023-04-20] MEDS: guaiFENesin LA 600 MG TAB.ER.12H PO ×2 (08:58→20:06)
[2023-04-20] MEDS: dexAMETHasone sod phosphate 4 MG/ML VIAL 6 MG IVPUSH (08:58)
[2023-04-20] MEDS: metFORMIN HCl ER 500 MG TAB.ER.24H 1000 MG PO ×2 (08:58→20:06)
--- NOTE | 2023-04-20 10:27 | HO.PM.IMPN ---
Subjective Subjective Date of Service: 04/19/23 Interval History: f/u on covid doing better Physical Exam Vital Signs: Vital Signs: Last Vital Signs Temp 96.9 F 04/20/23 07:57 Pulse 46 L 04/20/23 07:57 Resp 16 04/20/23 07:57 BP 141/79 H 04/20/23 07:57 Pulse Ox 93 04/20/23 07:57 O2 Del Method Nasal Cannula 04/20/23 07:57 O2 Flow Rate 3 04/20/23 07:57 BMI result Body Mass Index 30.4 Const: Other: General: AO X 3, no acute distress Resp: CTA bilateral CVS: S1,S2,RRR GI: +BS, NT, no distention Skin: No rash Neuro: motor grossly intact Psych: appropriate affect Objective Data Active Medications Acetaminophen (Acetaminophen 325 Mg Tablet) 650 mg PO Q6H PRN PRN Reason: Pain, Mild (Pain Scale 1-3) Last Admin: 04/18/23 08:42 Dose: 650 mg Documented By: MOUSTAPHA Albuterol Sulfate (Albuterol Sulfate (0.083%) 2.5 Mg/3 Ml Vial.Neb) 2.5 mg INHALE RQ4H PRN PRN Reason: Wheezing Atorvastatin Calcium (Atorvastatin Calcium 80 Mg Tablet) 80 mg PO BEDTIME [facility] Last Admin: 04/19/23 22:12 Dose: 80 mg Documented By: AG Dexamethasone Sodium Phosphate (Dexamethasone Sod Phosphate 4 Mg/Ml Vial) 6 mg IVPUSH DAILY [facility] Stop: 04/24/23 09:01 Last Admin: 04/20/23 08:58 Dose: 6 mg Documented By: JUS Dextrose (Dextrose 50 % 25 Gm/50 Ml Syringe) 25 gm IVPUSH Q15M PRN; Protocol PRN Reason: per Hypoglycemia Standing Ord. Divalproex Sodium (Divalproex Sodium Er 500 Mg Tab.Er.24h) 2,000 mg PO BEDTIME [facility] Last Admin: 04/19/23 22:12 Dose: 2,000 mg Documented By: AG Enoxaparin Sodium (Enoxaparin Sodium 40 Mg/0.4 Ml Syringe) 40 mg SUBCUT Q24H [facility] Last Admin: 04/19/23 11:55 Dose: 40 mg Documented By: JUS Glucose (Glucose Gel 15 Gm Gel..Gram.) 15 gm PO Q15M PRN; Protocol PRN Reason: per Hypoglycemia Standing Ord. Guaifenesin (Guaifenesin La 600 Mg Tab.Er.12h) 600 mg PO BID [facility] Last Admin: 04/20/23 08:58 Dose: 600 mg Documented By: JUS Guaifenesin (Guaifenesin 100 Mg/5 Ml Liquid) 5 ml PO Q6H PRN PRN Reason: cough Last Admin: 04/18/23 08:43 Dose: 5 ml Documented By: MOUSTAPHA Insulin Human Lispro (Insulin Lispro 100 Unit/Ml 3 Ml Vial) 0 unit SUBCUT QIDACHS [facility]; Protocol Last Admin: 04/20/23 08:04 Dose: Not Given Documented By: JUS Non-Admin Reason: No Insulin Coverage Lisinopril (Lisinopril 20 Mg Tablet) 20 mg PO DAILY [facility]; Protocol Last Admin: 04/15/23 07:52 Dose: 20 mg Documented By: BETTE Melatonin (Melatonin 3 Mg Tablet) 9 mg PO BEDTIME [facility] Last Admin: 04/19/23 22:12 Dose: 9 mg Documented By: AG Metformin HCl (Metformin Hcl Er 500 Mg Tab.Er.24h) 1,000 mg PO BID [facility] Last Admin: 04/20/23 08:58 Dose: 1,000 mg Documented By: JUS Mirtazapine (Mirtazapine 30 Mg Tablet) 30 mg PO BEDTIME [facility] Last Admin: 04/19/23 22:12 Dose: 30 mg Documented By: AG Multivitamins/Vitamin C (Multivitamin Tablet) 1 tab PO DAILY [facility] Last Admin: 04/20/23 08:58 Dose: 1 tab Documented By: JUS Olanzapine (Olanzapine 10 Mg Tablet) 10 mg PO BEDTIME [facility] Last Admin: 04/19/23 22:12 Dose: 10 mg Documented By: AG Ondansetron HCl (Ondansetron Hcl 4 Mg/2 Ml Vial) 4 mg IVPUSH Q8H PRN PRN Reason: Nausea and Vomiting Pharmacy Consult (Consult Rx Perform Med Rec) 1 each MISCELLANE ONCE PRN PRN Reason: Consult order Sertraline HCl (Sertraline Hcl 50 Mg Tablet) 50 mg PO DAILY [facility] Last Admin: 04/20/23 08:58 Dose: 50 mg Documented By: JUS Sodium Chloride (0.9 % Sodium Chloride Flush 3 Ml Syringe) 3 ml IVFLUSH QSHIFT [facility] Last Admin: 04/20/23 08:58 Dose: 3 ml Documented By: JUS Trazodone HCl (Trazodone Hcl 50 Mg Tablet) 50 mg PO BEDTIME PRN PRN Reason: Insomnia Labs 04/20/23 08:00 04/20/23 08:00 Labs: Laboratory Results - last 24 hr 04/19/23 04/19/23 04/19/23 11:57 15:55 20:45 MCV MCH MCHC RDW Plt Count MPV Absolute Nucleated RBC Nucleated RBC % (auto) Anion Gap Estim Creat Clear Calc Estimated GFR POC Glucose 156 H 164 H 201 H Random Glucose Calcium 04/20/23 04/20/23 04/20/23 07:55 08:00 08:00 MCV 91.3 MCH 30.4 MCHC 33.3 RDW 13.2 Plt Count 200 D MPV 10.8 Absolute Nucleated RBC 0.000 Nucleated RBC % (auto) 0.0 Anion Gap 15 Estim Creat Clear Calc 82.1 Estimated GFR > 60 POC Glucose 87 Random Glucose 93 Calcium 9.2 D Assessment and Plan (1) COVID-19: Status: Acute Plan 62-year-old man with history of autism, diabetes and hypertension admitted with hypoxia secondary to COVID-19 Acute hypoxic res failure due too COVID-19, overall better continue Decadron , wean off O2 JEREMÍAS--likely pre renal and resolved with IVF False High K d/t hemolyis, normal on repeat Hypertension, coninue metoprolol , hold lisinopril until renal function improve Diabetes mellitus type 2 Sliding scale, ADA diet Mental health Continue home medications, psych consult for med adjustment Resting tremors--Psych recommends Propranolol but baseline HR is too low DVT prophylaxis Lovenox need for inaptient: IV steroid for acute resp failure due to covid, and need for frequent O2 check oxygen adjustement PT eval for placement Time Spent With Patient Time: Total time managing care of this patient today ____ minutes. Quality Stroke Does the patient have a stroke diagnosis?: No VTE Prior VTE?: No VTE Risk Level:: Medical - moderate - high VTE Device Contraindication: Treatment Not Indicated VTE Drug Contraindication: N/A - Med Ordered
--- NOTE | 2023-04-20 10:30 | HO.PM.IMPN ---
Subjective Subjective Date of Service: 04/20/23 Interval History: No complaint, still on Oxygen no respiatory distress Physical Exam Vital Signs: Vital Signs: Last Vital Signs Temp 96.9 F 04/20/23 07:57 Pulse 46 L 04/20/23 07:57 Resp 16 04/20/23 07:57 BP 141/79 H 04/20/23 07:57 Pulse Ox 93 04/20/23 07:57 O2 Del Method Nasal Cannula 04/20/23 07:57 O2 Flow Rate 3 04/20/23 07:57 BMI result Body Mass Index 30.4 Const: Other: General: alert to self, place Resp: CTA bilateral CVS: S1,S2,RRR GI: +BS, NT, no distention Skin: No rash Neuro: motor grossly intact Psych: flat Objective Data Active Medications Acetaminophen (Acetaminophen 325 Mg Tablet) 650 mg PO Q6H PRN PRN Reason: Pain, Mild (Pain Scale 1-3) Last Admin: 04/18/23 08:42 Dose: 650 mg Documented By: MOUSTAPHA Albuterol Sulfate (Albuterol Sulfate (0.083%) 2.5 Mg/3 Ml Vial.Neb) 2.5 mg INHALE RQ4H PRN PRN Reason: Wheezing Atorvastatin Calcium (Atorvastatin Calcium 80 Mg Tablet) 80 mg PO BEDTIME [facility] Last Admin: 04/19/23 22:12 Dose: 80 mg Documented By: AG Dexamethasone Sodium Phosphate (Dexamethasone Sod Phosphate 4 Mg/Ml Vial) 6 mg IVPUSH DAILY [facility] Stop: 04/24/23 09:01 Last Admin: 04/20/23 08:58 Dose: 6 mg Documented By: JUS Dextrose (Dextrose 50 % 25 Gm/50 Ml Syringe) 25 gm IVPUSH Q15M PRN; Protocol PRN Reason: per Hypoglycemia Standing Ord. Divalproex Sodium (Divalproex Sodium Er 500 Mg Tab.Er.24h) 2,000 mg PO BEDTIME [facility] Last Admin: 04/19/23 22:12 Dose: 2,000 mg Documented By: AG Enoxaparin Sodium (Enoxaparin Sodium 40 Mg/0.4 Ml Syringe) 40 mg SUBCUT Q24H [facility] Last Admin: 04/19/23 11:55 Dose: 40 mg Documented By: JUS Glucose (Glucose Gel 15 Gm Gel..Gram.) 15 gm PO Q15M PRN; Protocol PRN Reason: per Hypoglycemia Standing Ord. Guaifenesin (Guaifenesin La 600 Mg Tab.Er.12h) 600 mg PO BID [facility] Last Admin: 04/20/23 08:58 Dose: 600 mg Documented By: JUS Guaifenesin (Guaifenesin 100 Mg/5 Ml Liquid) 5 ml PO Q6H PRN PRN Reason: cough Last Admin: 04/18/23 08:43 Dose: 5 ml Documented By: MOUSTAPHA Insulin Human Lispro (Insulin Lispro 100 Unit/Ml 3 Ml Vial) 0 unit SUBCUT QIDACHS [facility]; Protocol Last Admin: 04/20/23 08:04 Dose: Not Given Documented By: JUS Non-Admin Reason: No Insulin Coverage Lisinopril (Lisinopril 20 Mg Tablet) 20 mg PO DAILY [facility]; Protocol Last Admin: 04/15/23 07:52 Dose: 20 mg Documented By: BETTE Melatonin (Melatonin 3 Mg Tablet) 9 mg PO BEDTIME [facility] Last Admin: 04/19/23 22:12 Dose: 9 mg Documented By: AG Metformin HCl (Metformin Hcl Er 500 Mg Tab.Er.24h) 1,000 mg PO BID [facility] Last Admin: 04/20/23 08:58 Dose: 1,000 mg Documented By: JUS Mirtazapine (Mirtazapine 30 Mg Tablet) 30 mg PO BEDTIME [facility] Last Admin: 04/19/23 22:12 Dose: 30 mg Documented By: AG Multivitamins/Vitamin C (Multivitamin Tablet) 1 tab PO DAILY [facility] Last Admin: 04/20/23 08:58 Dose: 1 tab Documented By: JUS Olanzapine (Olanzapine 10 Mg Tablet) 10 mg PO BEDTIME [facility] Last Admin: 04/19/23 22:12 Dose: 10 mg Documented By: AG Ondansetron HCl (Ondansetron Hcl 4 Mg/2 Ml Vial) 4 mg IVPUSH Q8H PRN PRN Reason: Nausea and Vomiting Pharmacy Consult (Consult Rx Perform Med Rec) 1 each MISCELLANE ONCE PRN PRN Reason: Consult order Sertraline HCl (Sertraline Hcl 50 Mg Tablet) 50 mg PO DAILY [facility] Last Admin: 04/20/23 08:58 Dose: 50 mg Documented By: JUS Sodium Chloride (0.9 % Sodium Chloride Flush 3 Ml Syringe) 3 ml IVFLUSH QSHIFT [facility] Last Admin: 04/20/23 08:58 Dose: 3 ml Documented By: JUS Trazodone HCl (Trazodone Hcl 50 Mg Tablet) 50 mg PO BEDTIME PRN PRN Reason: Insomnia Labs 04/20/23 08:00 04/20/23 08:00 Labs: Laboratory Results - last 24 hr 04/19/23 04/19/23 04/19/23 11:57 15:55 20:45 MCV MCH MCHC RDW Plt Count MPV Absolute Nucleated RBC Nucleated RBC % (auto) Anion Gap Estim Creat Clear Calc Estimated GFR POC Glucose 156 H 164 H 201 H Random Glucose Calcium 04/20/23 04/20/23 04/20/23 07:55 08:00 08:00 MCV 91.3 MCH 30.4 MCHC 33.3 RDW 13.2 Plt Count 200 D MPV 10.8 Absolute Nucleated RBC 0.000 Nucleated RBC % (auto) 0.0 Anion Gap 15 Estim Creat Clear Calc 82.1 Estimated GFR > 60 POC Glucose 87 Random Glucose 93 Calcium 9.2 D Assessment and Plan (1) COVID-19: Status: Acute (2) Autism spectrum disorder: Status: Acute (3) JEREMÍAS (acute kidney injury): Status: Acute (4) Weakness: Status: Acute Plan 62-year-old man from [facility] with history of autism, diabetes and hypertension was brought to the ED on 04/13 to be evaluated for increasing tremores and generalized weakness. He was been observed in overlow waiting to be placed. The next day 04/14 he became hypoxic and tested positive for covid by both rapid test and PCR. He was then admitted and stared on steroid and O2. Acute hypoxic res failure due too COVID-19, overall better but still on O2 presently on 3 liter and sating around 93. Continue Decadron 6 mg daily ending day 04/03. Continue O2 and wean off as tolerated JEREMÍAS--likely pre renal, Initial Creatine was 1.79 on 04/13 and treated with IVF and now normal at 1.02 as of 04/20/23 False High K on 04/15, d/t hemolyis, repeat was normal Bradycardia--Sinus tyron, was on Toprolol 50 but has been on hold, HR remains in 40s, no pause, get ECG and if not improving can consider cardiology eval but at this time no indication for pace maker Hypertension..Holding metoprolol due to underlying baseline bradycardia in 40s, no pause, continue Lisinopril 20/d Diabetes mellitus type 2--on Metformin `1000 bid, SSI, fast sugar 93 Mental health--Autism and other mood desorder, has prior hospitalization at Psych unit for long period. Has been Psych as family wanted his tremors adddressed. continue Remro, Depakote, Zyprexa and Zoloft. Psych recommends Propranolol for resting tremors if baseline HR improves. DVT prophylaxis Lovenox Need for inpatient: covid with hypoxia, on iv steroid, O2 been adjusted PT eval for placement Time Spent With Patient Time: Total time managing care of this patient today ____ minutes. Quality Stroke Does the patient have a stroke diagnosis?: No VTE Prior VTE?: No VTE Risk Level:: Medical - moderate - high VTE Device Contraindication: Treatment Not Indicated VTE Drug Contraindication: N/A - Med Ordered
[2023-04-20 11:48] LABS: Glucose, Whole Blood 167 mg/dL (60-115)
[2023-04-20 11:51] VITALS: BP 121/69; PULSE 50; RESP 16; TEMP 35.9; O2SAT 96
[2023-04-20] MEDS: Insulin Lispro 100 UNIT/ML 3 ML VIAL SUBCUT ×3 (12:45→20:13)
[2023-04-20 15:31] VITALS: BP 119/66; PULSE 51; RESP 17; TEMP 36.8
[2023-04-20 15:31] LABS: Glucose, Whole Blood 190 mg/dL (60-115)
[2023-04-20 19:49] VITALS: BP 133/72; PULSE 61; RESP 18; TEMP 36.9; O2SAT 97
[2023-04-20 20:00] LABS: Glucose, Whole Blood 205 mg/dL (60-115)
[2023-04-20] MEDS: Divalproex Sodium ER 500 MG TAB.ER.24H 2000 MG PO (20:05)
[2023-04-20] MEDS: Melatonin 3 MG TABLET 9 MG PO (20:06)
[2023-04-20] MEDS: Atorvastatin Calcium 80 MG TABLET PO (20:06)
[2023-04-20] MEDS: OLANZapine 10 MG TABLET PO (20:06)
[2023-04-20] MEDS: Mirtazapine 30 MG TABLET PO (20:06)
[2023-04-20 23:11] VITALS: BP 160/77; PULSE 50; RESP 18; TEMP 36.1; O2SAT 96
[2023-04-21 03:19] VITALS: BP 162/81; PULSE 55; RESP 18; TEMP 36.1; O2SAT 96
[2023-04-21 07:41] VITALS: BP 146/70; PULSE 51; RESP 20; TEMP 36.2; O2SAT 93
[2023-04-21 07:53] LABS: Glucose, Whole Blood 112 mg/dL (60-115)
[2023-04-21] MEDS: Enoxaparin Sodium 40 MG/0.4 ML SYRINGE SUBCUT (09:16)
[2023-04-21] MEDS: dexAMETHasone sod phosphate 4 MG/ML VIAL 6 MG IVPUSH (09:16)
[2023-04-21] MEDS: guaiFENesin LA 600 MG TAB.ER.12H PO ×2 (09:16→20:35)
[2023-04-21] MEDS: Sertraline HCL 50 MG TABLET PO (09:16)
[2023-04-21] MEDS: Multivitamin TABLET 1 TAB PO (09:16)
[2023-04-21] MEDS: metFORMIN HCl ER 500 MG TAB.ER.24H 1000 MG PO ×2 (09:16→20:35)
[2023-04-21] MEDS: 0.9 % Sodium Chloride Flush 3 ML SYRINGE IVFLUSH ×3 (09:17→20:58)
[2023-04-21 11:40] LABS: Glucose, Whole Blood 190 mg/dL (60-115)
[2023-04-21] MEDS: Insulin Lispro 100 UNIT/ML 3 ML VIAL SUBCUT (11:58)
[2023-04-21 12:00] VITALS: BP 119/70; PULSE 84; RESP 21; TEMP 36.5; O2SAT 95
--- NOTE | 2023-04-21 13:53 | HO.PM.IMPN ---
Subjective Subjective Date of Service: 04/21/23 Interval History: resting comfortably offers no acute complaints, no events overnight, this morning noted to have bladder scan of 638, vitals stable, finger oximetry 93% on 2 L, no tremors or anxiety noted this morning. Review of Systems unable to obtain review of system due to mental status. Physical Exam Vital Signs: Vital Signs: Last Vital Signs Temp 97.7 F 04/21/23 12:00 Pulse 84 04/21/23 12:00 Resp 21 H 04/21/23 12:00 BP 119/70 04/21/23 12:00 Pulse Ox 95 04/21/23 12:00 O2 Del Method Nasal Cannula 04/21/23 12:00 O2 Flow Rate 2 04/21/23 12:00 BMI result Body Mass Index 30.4 Const: Other: General resting comfortably in no acute distress. Neck no JVD. CVS regular rate rhythm, Respiratory lungs clear to auscultation, no respiratory distress, no wheeze, no rhonchi. Gastrointestinal abdomen soft, nontender, bowel sounds audible,no guarding , no rigidity. Extremities no edema. Neuro nonfocal,moving all 4 extremity Skin no rash, dry skin Objective Data Active Medications Acetaminophen (Acetaminophen 325 Mg Tablet) 650 mg PO Q6H PRN PRN Reason: Pain, Mild (Pain Scale 1-3) Last Admin: 04/18/23 08:42 Dose: 650 mg Documented By: MOUSTAPHA Albuterol Sulfate (Albuterol Sulfate (0.083%) 2.5 Mg/3 Ml Vial.Neb) 2.5 mg INHALE RQ4H PRN PRN Reason: Wheezing Atorvastatin Calcium (Atorvastatin Calcium 80 Mg Tablet) 80 mg PO BEDTIME [facility] Last Admin: 04/20/23 20:06 Dose: 80 mg Documented By: CYNDIE Dexamethasone Sodium Phosphate (Dexamethasone Sod Phosphate 4 Mg/Ml Vial) 6 mg IVPUSH DAILY [facility] Stop: 04/24/23 09:01 Last Admin: 04/21/23 09:16 Dose: 6 mg Documented By: SREEDHAR Dextrose (Dextrose 50 % 25 Gm/50 Ml Syringe) 25 gm IVPUSH Q15M PRN; Protocol PRN Reason: per Hypoglycemia Standing Ord. Divalproex Sodium (Divalproex Sodium Er 500 Mg Tab.Er.24h) 2,000 mg PO BEDTIME [facility] Last Admin: 04/20/23 20:05 Dose: 2,000 mg Documented By: CYNDIE Enoxaparin Sodium (Enoxaparin Sodium 40 Mg/0.4 Ml Syringe) 40 mg SUBCUT Q24H [facility] Last Admin: 04/21/23 09:16 Dose: 40 mg Documented By: SREEDHAR Glucose (Glucose Gel 15 Gm Gel..Gram.) 15 gm PO Q15M PRN; Protocol PRN Reason: per Hypoglycemia Standing Ord. Guaifenesin (Guaifenesin La 600 Mg Tab.Er.12h) 600 mg PO BID [facility] Last Admin: 04/21/23 09:16 Dose: 600 mg Documented By: SREEDHAR Guaifenesin (Guaifenesin 100 Mg/5 Ml Liquid) 5 ml PO Q6H PRN PRN Reason: cough Last Admin: 04/18/23 08:43 Dose: 5 ml Documented By: MOUSTAPHA Insulin Human Lispro (Insulin Lispro 100 Unit/Ml 3 Ml Vial) 0 unit SUBCUT QIDACHS [facility]; Protocol Last Admin: 04/21/23 11:58 Dose: 2 unit Documented By: SREEDHAR Lisinopril (Lisinopril 20 Mg Tablet) 20 mg PO DAILY [facility]; Protocol Last Admin: 04/15/23 07:52 Dose: 20 mg Documented By: BETTE Melatonin (Melatonin 3 Mg Tablet) 9 mg PO BEDTIME [facility] Last Admin: 04/20/23 20:06 Dose: 9 mg Documented By: CYNDIE Metformin HCl (Metformin Hcl Er 500 Mg Tab.Er.24h) 1,000 mg PO BID [facility] Last Admin: 04/21/23 09:16 Dose: 1,000 mg Documented By: SREEDHAR Mirtazapine (Mirtazapine 30 Mg Tablet) 30 mg PO BEDTIME [facility] Last Admin: 04/20/23 20:06 Dose: 30 mg Documented By: CYNDIE Multivitamins/Vitamin C (Multivitamin Tablet) 1 tab PO DAILY [facility] Last Admin: 04/21/23 09:16 Dose: 1 tab Documented By: SREEDHAR Olanzapine (Olanzapine 10 Mg Tablet) 10 mg PO BEDTIME [facility] Last Admin: 04/20/23 20:06 Dose: 10 mg Documented By: CYNDIE Ondansetron HCl (Ondansetron Hcl 4 Mg/2 Ml Vial) 4 mg IVPUSH Q8H PRN PRN Reason: Nausea and Vomiting Pharmacy Consult (Consult Rx Perform Med Rec) 1 each MISCELLANE ONCE PRN PRN Reason: Consult order Sertraline HCl (Sertraline Hcl 50 Mg Tablet) 50 mg PO DAILY [facility] Last Admin: 04/21/23 09:16 Dose: 50 mg Documented By: SREEDHAR Sodium Chloride (0.9 % Sodium Chloride Flush 3 Ml Syringe) 3 ml IVFLUSH QSHIFT [facility] Last Admin: 04/21/23 09:17 Dose: 3 ml Documented By: SREEDHAR Tamsulosin HCl (Tamsulosin Hcl 0.4 Mg Capsule) 0.4 mg PO BEDTIME [facility] Trazodone HCl (Trazodone Hcl 50 Mg Tablet) 50 mg PO BEDTIME PRN PRN Reason: Insomnia Labs 04/20/23 08:00 04/20/23 08:00 Labs: Laboratory Results - last 24 hr 04/20/23 04/20/23 04/21/23 15:23 19:56 07:42 POC Glucose 190 H 205 H 112 04/21/23 11:26 POC Glucose 190 H Assessment and Plan (1) COVID-19: Status: Acute (2) Autism spectrum disorder: Status: Acute (3) JEREMÍAS (acute kidney injury): Status: Acute (4) Weakness: Status: Acute Plan 62-year-old man from [facility] with history of autism, diabetes and hypertension was brought to the ED on 04/13 to be evaluated for increasing tremores and generalized weakness. He was been observed in overlow waiting to be placed. The next day 04/14 he became hypoxic and tested positive for covid by both rapid test and PCR. He was then admitted and stared on steroid and O2. Acute hypoxic resp failure due to COVID-19, oxygenation stable 93% on 2 L, will wean oxygen as tolerated continue Decadron 6 mg will transition to by mouth end date 04/[address] on Flomax, straight caths were elevated bladder scan, minimize medications with anticholinergic side effects JEREMÍAS--likely pre renal, Initial Creatine was 1.79 on 04/13 and treated with IVF and now normal at 1.02 as of 04/20/23 False High K on 04/15, d/t hemolyis, repeat was normal Bradycardia--Sinus tyron, Toprol discontinued heart rate now in 50s will hold beta-blockers Hypertension..Holding metoprolol due to underlying baseline bradycardia in 40s, no pause, continue Lisinopril 20/d Diabetes mellitus type 2--on Metformin `1000 bid, SSI, elevated blood sugars likely due to steroids will monitor. hyperlipidemia continue statins Mental health--Autism and other mood desorder, has prior hospitalization at Psych unit for long period. Has been Psych as family wanted his tremors adddressed. continue Remeron, Depakote, Zyprexa and Zoloft. Psych recommends Propranolol for resting tremors if baseline HR improves. DVT prophylaxis Lovenox Need for inpatient: covid with hypoxia, on iv steroid, O2 been adjusted PT eval obtained for placement Time Spent With Patient Time: Total time managing care of this patient today ____ minutes. Quality Stroke Does the patient have a stroke diagnosis?: No VTE Prior VTE?: No VTE Risk Level:: Medical - moderate - high VTE Device Contraindication: Treatment Not Indicated VTE Drug Contraindication: N/A - Med Ordered
[2023-04-21 15:32] VITALS: BP 118/70; PULSE 60; RESP 20; TEMP 36.5; O2SAT 94
[2023-04-21 16:06] LABS: Glucose, Whole Blood 147 mg/dL (60-115)
--- NOTE | 2023-04-21 16:06 | PC.NURSE ---
Pt unable to void, bladder scanned for >600mL. After 2 unsuccessful attempts to straight cath using a standard cath kits. Reported to Dr. [place] and new orders for Coude' insertion given. A #16Fr Coude' inserted on 1 attempt using sterile technique, with > 600mL of clear yellow urine drained. Pt tolerated the procedure well.
[2023-04-21 19:21] VITALS: BP 142/69; PULSE 80; RESP 20; TEMP 36.5; O2SAT 94
[2023-04-21 19:50] LABS: Glucose, Whole Blood 166 mg/dL (60-115)
[2023-04-21] MEDS: Tamsulosin HCL 0.4 MG CAPSULE PO (20:35)
[2023-04-21] MEDS: OLANZapine 10 MG TABLET PO (20:35)
[2023-04-21] MEDS: Mirtazapine 30 MG TABLET PO (20:35)
[2023-04-21] MEDS: Divalproex Sodium ER 500 MG TAB.ER.24H 2000 MG PO (20:35)
[2023-04-21] MEDS: Melatonin 3 MG TABLET 9 MG PO (20:35)
[2023-04-21] MEDS: Atorvastatin Calcium 80 MG TABLET PO (20:36)
[2023-04-21 23:58] VITALS: BP 180/84; PULSE 80; RESP 20; TEMP 36; O2SAT 92
[2023-04-22 03:50] VITALS: BP 177/78; PULSE 70; RESP 22; TEMP 36.6; O2SAT 95
[2023-04-22 07:44] VITALS: BP 129/75; PULSE 64; RESP 20; TEMP 36.5; O2SAT 96
[2023-04-22 08:09] LABS: Glucose, Whole Blood 106 mg/dL (60-115)
[2023-04-22] MEDS: 0.9 % Sodium Chloride Flush 3 ML SYRINGE IVFLUSH ×3 (09:36→22:44)
[2023-04-22] MEDS: Enoxaparin Sodium 40 MG/0.4 ML SYRINGE SUBCUT (09:36)
[2023-04-22] MEDS: dexAMETHasone sod phosphate 4 MG/ML VIAL 6 MG IVPUSH (09:36)
[2023-04-22] MEDS: metFORMIN HCl ER 500 MG TAB.ER.24H 1000 MG PO ×2 (09:36→22:34)
[2023-04-22] MEDS: Multivitamin TABLET 1 TAB PO (09:36)
[2023-04-22] MEDS: Sertraline HCL 50 MG TABLET PO (09:36)
[2023-04-22] MEDS: guaiFENesin LA 600 MG TAB.ER.12H PO ×2 (09:36→22:33)
[2023-04-22 11:16] LABS: Glucose, Whole Blood 203 mg/dL (60-115)
[2023-04-22 11:53] VITALS: BP 121/67; PULSE 60; RESP 20; TEMP 36.4; O2SAT 94
[2023-04-22] MEDS: Insulin Lispro 100 UNIT/ML 3 ML VIAL SUBCUT ×3 (12:13→22:35)
[2023-04-22 12:25] LABS: IDNOW Serial# BCCEAD1C
[2023-04-22 12:26] LABS: COVID-19 Test Positive (Negative)
--- NOTE | 2023-04-22 12:45 | MHC.CM.PN ---
EMR REVIEWED, CM MET W/PT AT BEDSIDE AND PT REPORTS HE IS AGREEABLE TO STR, NO PREFERENCE OF FACILITY HOWEVER AWARE WIRE INSULATOR JOSE WOULD LIKE HIM IN [place] AREA AND PT AGREEABLE, SNF REFERRAL UPDATED AND BROADCASTED, CM AWAITING BED OFFER.
--- NOTE | 2023-04-22 14:33 | P.PNIM_ITS ---
Subjective Subjective Date of Service: 04/22/23 Interval History: sitting comfortably in bed offers no acute complaints, follow commands, no overnight issues, oxygenation stable 96% on 2 L. Review of Systems unable to obtain review of system due to mental status. Physical Exam Vital Signs: Vital Signs: Last Vital Signs Temp 97.6 F 04/22/23 11:53 Pulse 60 04/22/23 11:53 Resp 20 04/22/23 11:53 BP 121/67 04/22/23 11:53 Pulse Ox 94 04/22/23 11:53 O2 Del Method Room Air 04/22/23 11:53 O2 Flow Rate 2 04/22/23 07:44 BMI result Body Mass Index 30.4 Const: Other: General? resting comfortably in no acute distress.? Neck? no JVD. CVS? regular rate rhythm, Respiratory lungs clear to auscultation, no respiratory distress, no wheeze, no rhonchi. Gastrointestinal abdomen soft, nontender, bowel sounds audible,no guarding , no rigidity. Extremities no edema. Neuro nonfocal,moving all 4 extremity Skin no rash, dry skin Objective Data Active Medications Acetaminophen (Acetaminophen 325 Mg Tablet) 650 mg PO Q6H PRN PRN Reason: Pain, Mild (Pain Scale 1-3) Last Admin: 04/18/23 08:42 Dose: 650 mg Documented By: MOUSTAPHA Atorvastatin Calcium (Atorvastatin Calcium 80 Mg Tablet) 80 mg PO BEDTIME [facility] Last Admin: 04/21/23 20:36 Dose: 80 mg Documented By: MARGRET Dexamethasone Sodium Phosphate (Dexamethasone Sod Phosphate 4 Mg/Ml Vial) 6 mg IVPUSH DAILY [facility] Stop: 04/24/23 09:01 Last Admin: 04/22/23 09:36 Dose: 6 mg Documented By: SREEDHAR Dextrose (Dextrose 50 % 25 Gm/50 Ml Syringe) 25 gm IVPUSH Q15M PRN; Protocol PRN Reason: per Hypoglycemia Standing Ord. Divalproex Sodium (Divalproex Sodium Er 500 Mg Tab.Er.24h) 2,000 mg PO BEDTIME [facility] Last Admin: 04/21/23 20:35 Dose: 2,000 mg Documented By: MARGRET Enoxaparin Sodium (Enoxaparin Sodium 40 Mg/0.4 Ml Syringe) 40 mg SUBCUT Q24H [facility] Last Admin: 04/22/23 09:36 Dose: 40 mg Documented By: SREEDHAR Glucose (Glucose Gel 15 Gm Gel..Gram.) 15 gm PO Q15M PRN; Protocol PRN Reason: per Hypoglycemia Standing Ord. Guaifenesin (Guaifenesin La 600 Mg Tab.Er.12h) 600 mg PO BID [facility] Last Admin: 04/22/23 09:36 Dose: 600 mg Documented By: SREEDHAR Guaifenesin (Guaifenesin 100 Mg/5 Ml Liquid) 5 ml PO Q6H PRN PRN Reason: cough Last Admin: 04/18/23 08:43 Dose: 5 ml Documented By: MOUSTAPHA Insulin Human Lispro (Insulin Lispro 100 Unit/Ml 3 Ml Vial) 0 unit SUBCUT QIDA [facility]; Protocol Last Admin: 04/22/23 12:13 Dose: 4 unit Documented By: NIGEL Lisinopril (Lisinopril 20 Mg Tablet) 20 mg PO DAILY [facility]; Protocol Last Admin: 04/15/23 07:52 Dose: 20 mg Documented By: BETTE Melatonin (Melatonin 3 Mg Tablet) 9 mg PO BEDTIME [facility] Last Admin: 04/21/23 20:35 Dose: 9 mg Documented By: MARGRET Metformin HCl (Metformin Hcl Er 500 Mg Tab.Er.24h) 1,000 mg PO BID [facility] Last Admin: 04/22/23 09:36 Dose: 1,000 mg Documented By: SREEDHAR Mirtazapine (Mirtazapine 30 Mg Tablet) 30 mg PO BEDTIME [facility] Last Admin: 04/21/23 20:35 Dose: 30 mg Documented By: MARGRET Multivitamins/Vitamin C (Multivitamin Tablet) 1 tab PO DAILY [facility] Last Admin: 04/22/23 09:36 Dose: 1 tab Documented By: SREEDHAR Olanzapine (Olanzapine 10 Mg Tablet) 10 mg PO BEDTIME [facility] Last Admin: 04/21/23 20:35 Dose: 10 mg Documented By: MARGRET Ondansetron HCl (Ondansetron Hcl 4 Mg/2 Ml Vial) 4 mg IVPUSH Q8H PRN PRN Reason: Nausea and Vomiting Pharmacy Consult (Consult Rx Perform Med Rec) 1 each MISCELLANE ONCE PRN PRN Reason: Consult order Sertraline HCl (Sertraline Hcl 50 Mg Tablet) 50 mg PO DAILY [facility] Last Admin: 04/22/23 09:36 Dose: 50 mg Documented By: SREEDHAR Sodium Chloride (0.9 % Sodium Chloride Flush 3 Ml Syringe) 3 ml IVFLUSH QSHIFT ON [facility] Last Admin: 04/22/23 09:36 Dose: 3 ml Documented By: SREEDHAR Tamsulosin HCl (Tamsulosin Hcl 0.4 Mg Capsule) 0.4 mg PO BEDTIME [facility] Last Admin: 04/21/23 20:35 Dose: 0.4 mg Documented By: MARGRET Trazodone HCl (Trazodone Hcl 50 Mg Tablet) 50 mg PO BEDTIME PRN PRN Reason: Insomnia Labs 04/20/23 08:00 04/20/23 08:00 Labs: Laboratory Results - last 24 hr 04/21/23 04/21/23 04/22/23 16:02 19:47 08:02 POC Glucose 147 H 166 H 106 COVID-19 (ERIBERTO) COVID-19 Clin Com 04/22/23 04/22/23 11:12 12:00 POC Glucose 203 H COVID-19 (ERIBERTO) Positive A COVID-19 Clin Com See Note Assessment and Plan (1) COVID-19: Status: Acute (2) Autism spectrum disorder: Status: Acute (3) JEREMÍAS (acute kidney injury): Status: Acute (4) Weakness: Status: Acute Plan 62-year-old man from [facility] with history of autism, diabetes and hypertension was brought to the ED on 04/13 to be evaluated for increasing tremores and generalized weakness. He was been observed in overlow waiting to be placed. The next day 04/14 he became hypoxic and tested positive for covid by both rapid test and PCR. He was then admitted and stared on steroid and O2. Acute hypoxic resp failure due to COVID-19, oxygenation stable 96% on 2 L, will wean oxygen,on iv Decadron 6 mg will transition to by mouth end date 04/24, repeat COVID positive urinary retention placed on Flomax, noted to have elevated bladder scan, started on Flomax, minimize medications with anticholinergic side effects, recommend outpatient urology follow-up in 2 weeks JEREMÍAS--likely pre renal, Initial Creatine was 1.79 on 04/13 treated with IVF and now normal at 1.02 as of 04/20/23 False High K on 04/15, d/t hemolyis, repeat was normal. Bradycardia--Sinus tyron, Toprol discontinued heart rate now in 50s will hold beta-blockers Hypertension..Holding metoprolol due to underlying baseline bradycardia in 40s, no pause, continue Lisinopril 20/d, few high blood pressure readings will follow Diabetes mellitus type 2--on Metformin `1000 bid, SSI, elevated blood sugars likely due to steroids will monitor. hyperlipidemia continue statins Mental health--Autism and other mood desorder, has prior hospitalization at Psych unit for long period. Seen by Psych as family wanted his tremors address ed. continue Remeron, Depakote, Zyprexa and Zoloft. Psych recommends Propranolol for resting tremors if baseline HR improves. DVT prophylaxis Lovenox Need for inpatient: covid with hypoxia, skilled nursing case manager looking for rehab bed PT recommend short-term rehab Time Spent With Patient Time: Total time managing care of this patient today ____ minutes. Quality Stroke Does the patient have a stroke diagnosis?: No VTE Prior VTE?: No VTE Risk Level:: Medical - moderate - high VTE Device Contraindication: Treatment Not Indicated VTE Drug Contraindication: N/A - Med Ordered
[2023-04-22 15:19] VITALS: BP 106/63; PULSE 81; RESP 20; TEMP 37.3; O2SAT 98
[2023-04-22 16:13] LABS: Glucose, Whole Blood 194 mg/dL (60-115)
[2023-04-22 19:01] VITALS: BP 116/70; PULSE 61; RESP 20; TEMP 37.2; O2SAT 90
[2023-04-22 19:41] LABS: Glucose, Whole Blood 212 mg/dL (60-115)
[2023-04-22] MEDS: Tamsulosin HCL 0.4 MG CAPSULE PO (22:33)
[2023-04-22] MEDS: Mirtazapine 30 MG TABLET PO (22:34)
[2023-04-22] MEDS: Divalproex Sodium ER 500 MG TAB.ER.24H 2000 MG PO (22:34)
[2023-04-22] MEDS: Atorvastatin Calcium 80 MG TABLET PO (22:34)
[2023-04-22] MEDS: OLANZapine 10 MG TABLET PO (22:34)
[2023-04-22] MEDS: Melatonin 3 MG TABLET 9 MG PO (22:35)
[2023-04-23] VITALS: BP 146/79; PULSE 52; RESP 18; TEMP 36.9; O2SAT 92
[2023-04-23 03:08] VITALS: BP 160/86; PULSE 63; RESP 14; TEMP 36.1; O2SAT 96
[2023-04-23 07:36] LABS: Glucose, Whole Blood 106 mg/dL (60-115)
[2023-04-23 07:37] VITALS: BP 147/81; PULSE 63; RESP 22; TEMP 36.4; O2SAT 94
[2023-04-23] MEDS: metFORMIN HCl ER 500 MG TAB.ER.24H 1000 MG PO ×2 (09:46→21:13)
[2023-04-23] MEDS: Multivitamin TABLET 1 TAB PO (09:46)
[2023-04-23] MEDS: Sertraline HCL 50 MG TABLET PO (09:46)
[2023-04-23] MEDS: dexAMETHasone 6 MG TABLET PO (09:46)
[2023-04-23] MEDS: guaiFENesin LA 600 MG TAB.ER.12H PO ×2 (09:46→21:14)
[2023-04-23] MEDS: 0.9 % Sodium Chloride Flush 3 ML SYRINGE IVFLUSH ×3 (09:46→21:15)
[2023-04-23] MEDS: Enoxaparin Sodium 40 MG/0.4 ML SYRINGE SUBCUT (09:46)
--- NOTE | 2023-04-23 10:36 | MHC.CM.PN ---
EMR REVIEWED, PT MEDICALLY CLEARED HOWEVER ACCEPTING SNF UNABLE TO TAKE PT UNTIL TOMORROW 04/24 D/T INITIAL COVID + DATE, CM WILL CONT TO FOLLOW D/C NEEDS.
[2023-04-23 11:12] VITALS: BP 132/79; PULSE 60; RESP 20; TEMP 36.5; O2SAT 94
[2023-04-23 11:24] LABS: Glucose, Whole Blood 194 mg/dL (60-115)
[2023-04-23] MEDS: Insulin Lispro 100 UNIT/ML 3 ML VIAL SUBCUT ×3 (11:31→21:14)
--- NOTE | 2023-04-23 11:50 | P.PNIM_ITS ---
Subjective Subjective Date of Service: 04/23/23 Interval History: being followed for hypoxia with COVID-19 infection, sitting comfortably on bed ,offers no acute complaints, oxygenation remains stable on 1-2 L of oxygen, no acute events overnight. O2 drops to 89- 90 on room air. Review of Systems unable to obtain detailed review of system due to mental status. Physical Exam Vital Signs: Vital Signs: Last Vital Signs Temp 97.7 F 04/23/23 11:12 Pulse 60 04/23/23 11:12 Resp 20 04/23/23 11:12 BP 132/79 04/23/23 11:12 Pulse Ox 94 04/23/23 11:12 O2 Del Method Nasal Cannula 04/23/23 11:12 O2 Flow Rate 2 04/23/23 11:12 BMI result Body Mass Index 30.4 Const: Other: General? resting comfortably in no acute distress.? Neck? no JVD. CVS? regular rate rhythm, Respiratory lungs clear to auscultation,diminished, no respiratory distress, no wheeze, no rhonchi. Gastrointestinal abdomen soft, non tender, bowel sounds audible,no guarding , no rigidity. Extremities no edema. Neuro nonfocal,moving all 4 extremity Skin no rash, dry skin Objective Data Active Medications Acetaminophen (Acetaminophen 325 Mg Tablet) 650 mg PO Q6H PRN PRN Reason: Pain, Mild (Pain Scale 1-3) Last Admin: 04/18/23 08:42 Dose: 650 mg Documented By: COTEMA Atorvastatin Calcium (Atorvastatin Calcium 80 Mg Tablet) 80 mg PO BEDTIME [facility] Last Admin: 04/22/23 22:34 Dose: 80 mg Documented By: GABRIELE Dexamethasone (Dexamethasone 6 Mg Tablet) 6 mg PO DAILY [facility] Stop: 04/24/23 08:59 Last Admin: 04/23/23 09:46 Dose: 6 mg Documented By: FOSTEKJorden Dextrose (Dextrose 50 % 25 Gm/50 Ml Syringe) 25 gm IVPUSH Q15M PRN; Protocol PRN Reason: per Hypoglycemia Standing Ord. Divalproex Sodium (Divalproex Sodium Er 500 Mg Tab.Er.24h) 2,000 mg PO BEDTIME [facility] Last Admin: 04/22/23 22:34 Dose: 2,000 mg Documented By: GABRIELE Enoxaparin Sodium (Enoxaparin Sodium 40 Mg/0.4 Ml Syringe) 40 mg SUBCUT Q24H [facility] Last Admin: 04/23/23 09:46 Dose: 40 mg Documented By: HELADIO Glucose (Glucose Gel 15 Gm Gel..Gram.) 15 gm PO Q15M PRN; Protocol PRN Reason: per Hypoglycemia Standing Ord. Guaifenesin (Guaifenesin La 600 Mg Tab.Er.12h) 600 mg PO BID [facility] Last Admin: 04/23/23 09:46 Dose: 600 mg Documented By: HELADIO Guaifenesin (Guaifenesin 100 Mg/5 Ml Liquid) 5 ml PO Q6H PRN PRN Reason: cough Last Admin: 04/18/23 08:43 Dose: 5 ml Documented By: MOUSTAPHA Insulin Human Lispro (Insulin Lispro 100 Unit/Ml 3 Ml Vial) 0 unit SUBCUT QIDACHS [facility]; Protocol Last Admin: 04/23/23 11:31 Dose: 2 unit Documented By: HELADIO Lisinopril (Lisinopril 20 Mg Tablet) 20 mg PO DAILY [facility]; Protocol Last Admin: 04/15/23 07:52 Dose: 20 mg Documented By: BETTE Melatonin (Melatonin 3 Mg Tablet) 9 mg PO BEDTIME [facility] Last Admin: 04/22/23 22:35 Dose: 9 mg Documented By: GABRIELE Metformin HCl (Metformin Hcl Er 500 Mg Tab.Er.24h) 1,000 mg PO BID [facility] Last Admin: 04/23/23 09:46 Dose: 1,000 mg Documented By: HELADIO Mirtazapine (Mirtazapine 30 Mg Tablet) 30 mg PO BEDTIME [facility] Last Admin: 04/22/23 22:34 Dose: 30 mg Documented By: GABRIELE Multivitamins/Vitamin C (Multivitamin Tablet) 1 tab PO DAILY [facility] Last Admin: 04/23/23 09:46 Dose: 1 tab Documented By: HELADIO Olanzapine (Olanzapine 10 Mg Tablet) 10 mg PO BEDTIME [facility] Last Admin: 04/22/23 22:34 Dose: 10 mg Documented By: GABRIELE Ondansetron HCl (Ondansetron Hcl 4 Mg/2 Ml Vial) 4 mg IVPUSH Q8H PRN PRN Reason: Nausea and Vomiting Pharmacy Consult (Consult Rx Perform Med Rec) 1 each MISCELLANE ONCE PRN PRN Reason: Consult order Sertraline HCl (Sertraline Hcl 50 Mg Tablet) 50 mg PO DAILY [facility] Last Admin: 04/23/23 09:46 Dose: 50 mg Documented By: HELADIO Sodium Chloride (0.9 % Sodium Chloride Flush 3 Ml Syringe) 3 ml IVFLUSH QSHIFT [facility] Last Admin: 04/23/23 09:46 Dose: 3 ml Documented By: HELADIO Tamsulosin HCl (Tamsulosin Hcl 0.4 Mg Capsule) 0.4 mg PO BEDTIME [facility] Last Admin: 04/22/23 22:33 Dose: 0.4 mg Documented By: GABRIELE Trazodone HCl (Trazodone Hcl 50 Mg Tablet) 50 mg PO BEDTIME PRN PRN Reason: Insomnia Labs 04/20/23 08:00 04/20/23 08:00 Labs: Laboratory Results - last 24 hr 04/22/23 04/22/23 04/22/23 12:00 16:09 19:37 POC Glucose 194 H 212 H COVID-19 (ERIBERTO) Positive A COVID-19 Clin Com See Note 04/23/23 04/23/23 07:30 11:20 POC Glucose 106 194 H COVID-19 (ERIBERTO) COVID-19 Clin Com Assessment and Plan (1) COVID-19: Status: Acute (2) Autism spectrum disorder: Status: Acute (3) JEREMÍAS (acute kidney injury): Status: Acute (4) Weakness: Status: Acute Plan 62-year-old man from residential with history of autism, diabetes and hypertension was brought to the ED on 04/13 to be evaluated for increasing tremores and generalized weakness. He was been observed in overlow waiting to be placed. The next day 04/14 he became hypoxic and tested positive for covid by bot h rapid test and PCR. He was then admitted and stared on steroid and O2. Acute hypoxic resp failure due to COVID-19, oxygenation stable 94% on 2 L, on po Decadron 6 mg end date 04/24, repeat COVID positive, Wean O2 as tolerated. urinary retention placed on Flomax, noted to have elevated bladder scan, started on Flomax, minimize medications with anticholinergic side effects, recommend outpatient urology follow-up in 2 weeks JEREMÍAS--likely pre renal, Initial Creatine was 1.79 on 04/13 treated with IVF and now normal at 1.02 False High K on 04/15, d/t hemolyis, repeat was normal. Bradycardia--Sinus tyron, Toprol discontinued heart rate remains low therefore cannot resume beta-blockers Hypertension..Holding metoprolol due to underlying baseline bradycardia in 40s, no pause, continue Lisinopril 20/d, few high blood pressure readings at night, will place on low-dose amlodipine at bedtime Diabetes mellitus type 2--on Metformin `1000 bid, SSI, elevated blood sugars likely due to steroids will monitor. hyperlipidemia continue statins Mental health--Autism and other mood disorder, has prior hospitalization at Psych unit for long period. Seen by Psych as family wanted his tremors addressed. continue Remeron, Depakote, Zyprexa and Zoloft. Psych recommends Propranolol for resting tremors but unable to use due to bradycardia. DVT prophylaxis Lovenox Need for inpatient: covid with hypoxia, patient can be discharged to rehab tomorrow 10 days after diagnosis of COVID. PT recommend short-term rehab Time Spent With Patient Time: Total time managing care of this patient today ____ minutes. Quality Stroke Does the patient have a stroke diagnosis?: No VTE Prior VTE?: No VTE Risk Level:: Medical - moderate - high VTE Device Contraindication: Treatment Not Indicated VTE Drug Contraindication: N/A - Med Ordered
[2023-04-23 15:21] VITALS: BP 117/68; PULSE 74; RESP 18; TEMP 35.9; O2SAT 97
[2023-04-23 16:28] LABS: Glucose, Whole Blood 175 mg/dL (60-115)
[2023-04-23 19:48] VITALS: BP 123/69; PULSE 79; RESP 20; TEMP 35.8; O2SAT 98
[2023-04-23] MEDS: Melatonin 3 MG TABLET 9 MG PO (21:12)
[2023-04-23] MEDS: Divalproex Sodium ER 500 MG TAB.ER.24H 2000 MG PO (21:13)
[2023-04-23] MEDS: Atorvastatin Calcium 80 MG TABLET PO (21:14)
[2023-04-23] MEDS: OLANZapine 10 MG TABLET PO (21:14)
[2023-04-23] MEDS: Mirtazapine 30 MG TABLET PO (21:14)
[2023-04-23] MEDS: Tamsulosin HCL 0.4 MG CAPSULE PO (21:14)
[2023-04-24] VITALS: BP 170/94; PULSE 52; RESP 20; TEMP 36.3; O2SAT 97
[2023-04-24 00:07] LABS: Glucose, Whole Blood 218 mg/dL (60-115)
[2023-04-24 03:27] VITALS: BP 170/80; PULSE 58; RESP 20; TEMP 36.3; O2SAT 99
[2023-04-24 07:37] LABS: Glucose, Whole Blood 117 mg/dL (60-115)
[2023-04-24 08:00] VITALS: BP 141/59; PULSE 63; RESP 20; TEMP 36.3; O2SAT 99
[2023-04-24] MEDS: metFORMIN HCl ER 500 MG TAB.ER.24H 1000 MG PO (08:28)
[2023-04-24] MEDS: Multivitamin TABLET 1 TAB PO (08:28)
[2023-04-24] MEDS: guaiFENesin LA 600 MG TAB.ER.12H PO (08:28)
[2023-04-24] MEDS: 0.9 % Sodium Chloride Flush 3 ML SYRINGE IVFLUSH (08:28)
[2023-04-24] MEDS: Sertraline HCL 50 MG TABLET PO (08:28)
--- NOTE | 2023-04-24 08:38 | PM.DS ---
DS: Providers Provider Date of Service: 04/24/23 Date of admission: 04/15/23 11:23 Primary care physician: Eric Rios MD Consults: 04/14/23 12:07 Consult to Psychiatry Stat Consulting Provider: Psych Covering Reason for consultation: new tremor on depakote 04/18/23 10:19 Consult to Psychiatry Routine Consulting Provider: Psych Covering Reason for consultation: Med review (patient of Dr. Abel) DS: Diagnosis Discharge Diagnosis (1) COVID-19: Status: Acute (2) Autism spectrum disorder: Status: Acute (3) JEREMÍAS (acute kidney injury): Status: Acute (4) Weakness: Status: Acute DS: Summary Hospital Course Hospital Course: [facility] Complaint: Fever 62-year-old man presenting from a retirement that was initially in the overflow unit for plan to transfer to short-term rehab was noted to have hypoxia and fever as well as generalized malaise and anorexia.? During interview patient was not able to verbalize much of his symptoms but reported some shortness of breath and cough with green sputum.? Due to the hypoxia chest CTA was obtained which was negative for pulmonary embolism but showed bilateral lower lobe atelectasis and small infiltration.? His creatinine was noted to be elevated initially at 1.79 did improve slightly to 1.46.? COVID on 04/14 was positive, flu and RSV pending.? Last night he was noted to be hypoxic with oxygen saturation of 88% on room air with fever of 101.1.? He was given a dose of IV Decadron the ER.? He will be admitted for further management and treatment of COVID-19 hypoxia. Hospital course: essentially 62-year-old man? from retirement with history of autism, diabetes and hypertension was brought to the ED on 04/13 to be evaluated for increasing tremors and generalized weakness. He was been observed in overflow waiting to be placed to rehab. The next day 04/14 he became hypoxic and tested positive for covid by both rapid test and PCR. He was then admitted and stared on steroid and O2. He as also noted to have JEREMÍAS on presentation, hospital course further complicated by urinary retention. Problems Acute hypoxic resp failure due to COVID-19,? oxygenation stable 99% on 2 L, He has completed 10 days of Decadron. urinary retention noted with high PVR, started on Flomax , minimize medications with anticholinergic side effects, recommend outpatient urology follow-up in 2 weeks JEREMÍAS--likely pre renal, Initial Creatine was 1.79 on 04/13 treated with IVF and now normal at 1.02 False High K? on 04/15, d/t hemolyis, repeat was normal. Bradycardia--Sinus bradycardia,? Toprol discontinued heart rate? remains low therefore cannot resume beta-blockers., presently 63 Hypertension..Holding metoprolol due to underlying baseline bradycardia as discussed above, no pause, continue Lisinopril 20/daily. Started on and will adjust dose to 2.5 mg daily at discharge Diabetes mellitus type 2--on Metformin `1000 bid, and was given sliding scal ein the hospital. Blood sugars were high due to steroid, but now better. hyperlipidemia continue statins Mental health--Autism and other mood disorder, has prior hospitalization at Psych unit for long period.? Seen by Psych as family wanted his tremors addressed.? continue Remeron, Depakote, Zyprexa and Zoloft.? Psych recommends Propranolol for resting tremors? but unable to use due to bradycardia. To be reassess by Psych on outpatient basis PT is recommending Short term rehab To Short term rehab for less than 30 days Time Spent with Patient Time attestation: Total time managing care of this patient today ____ minutes. Discharge coordination time: Greater than 30 minutes Quality: Safe Use of Opioids Does Pt have an Active Cancer Diagnosis on the Problem List?: No Quality: Stroke Does the patient have a stroke diagnosis?: No Physical Exam Vital Signs: Vital Signs: Last Vital Signs Temp 97.3 F 04/24/23 08:00 Pulse 63 04/24/23 08:00 Resp 20 04/24/23 08:00 BP 141/59 H 04/24/23 08:00 Pulse Ox 99 04/24/23 08:00 O2 Del Method Nasal Cannula 04/24/23 08:00 O2 Flow Rate 2 04/24/23 08:00 BMI result Body Mass Index 30.4 DS: Data Data Completed and Pending Labs on day of discharge: Laboratory Results - last 24 hr 04/23/23 04/23/23 04/23/23 11:20 16:22 20:58 POC Glucose 194 H 175 H 218 H 04/24/23 07:28 POC Glucose 117 H Discharge Plan Discharge Anticipated Discharge Date/Time: 04/24/23 14:35 Patient Disposition: Xfer SNF Discharge Diagnosis: Acute hypoxic respiratory failure due to covid Referrals: [facility] [Outside] - 1 Day (SHORT TERM REHAB) Eric Rios MD [Primary Care Provider] - 1 Week Ion Mann MD [Physician] - 2 Weeks Discharge Medications: New tamsulosin 0.4 mg Capsule 0.4 mg PO BEDTIME Qty: 30 0RF Continued olanzapine 10 mg Tablet 10 mg PO BEDTIME 30 Days Qty: 30 0RF mirtazapine 30 mg Tablet 30 mg PO BEDTIME 30 Days Qty: 30 0RF divalproex 500 mg Tablet Extended Release 24 Hr 2,000 mg PO BEDTIME 30 Days Qty: 120 0RF sertraline 50 mg Tablet 50 mg PO DAILY 30 Days Qty: 30 0RF multivitamin [Daily-Tanika] Tablet 1 tab PO DAILY Qty: 0 0RF trazodone 50 mg Tablet 50 mg PO BEDTIME PRN (Reason: Insomnia) 30 Days Qty: 30 0RF atorvastatin 80 mg tablet 80 mg PO BEDTIME 30 Days Qty: 30 0RF lisinopril 20 mg tablet 20 mg PO DAILY 30 Days Qty: 30 0RF melatonin 3 mg tablet 9 mg PO BEDTIME 30 Days Qty: 90 0RF metformin 500 mg tablet extended release 24 hr 1,000 mg PO BID 30 Days Qty: 120 0RF Discontinued metoprolol succinate 50 mg tablet extended release 24 hr 50 mg PO DAILY 30 Days Qty: 30 0RF Discharge Orders: Discharge Order (Routine); Ordered 04/24/23 Ordered By: Anthony Guillory Diet: Advance to usual diet Activity on Discharge: As tolerated Stand Alone Forms: Patient Portal Discharge page Care Plan Goals: full recovery from covid Health Concerns: covid 19 generalized weakness Plan of Treatment: short ter rehab keep kennedy until see urologist in 1 to 2 weeks Assessment: as above
[2023-04-24] MEDS: amLODIPine Besylate 2.5 MG TABLET PO (09:14)
--- NOTE | 2023-04-24 09:34 | MHC.CM.PN ---
REMI PT WILL BE MEDICALLY CLEARED AND WILL D/C TO [facility] FOR [facility] [facility] AND [facility] IV ABX PENDING PICC LINE AND ID FOR FINAL ABX, [facility] WILL TRANSPORT.
--- NOTE | 2023-04-24 10:12 | HO.PM.IMPN ---
Subjective Subjective Date of Service: 04/24/23 Interval History: f/u up hypoxia d/t covid interval history: continues to make progres, O2 99 on 2 liters , no sob Physical Exam Vital Signs: Vital Signs: Last Vital Signs Temp 97.3 F 04/24/23 08:00 Pulse 63 04/24/23 08:00 Resp 20 04/24/23 08:00 BP 141/59 H 04/24/23 08:00 Pulse Ox 99 04/24/23 08:00 O2 Del Method Nasal Cannula 04/24/23 08:00 O2 Flow Rate 2 04/24/23 08:00 BMI result Body Mass Index 30.4 Const: Other: General: AO X 2, no acute distress Resp: CTA bilateral CVS: S1,S2,RRR GI: +BS, NT, no distention Skin: No rash Neuro: motor grossly intact Psych: appropriate affect Objective Data Active Medications Acetaminophen (Acetaminophen 325 Mg Tablet) 650 mg PO Q6H PRN PRN Reason: Pain, Mild (Pain Scale 1-3) Last Admin: 04/18/23 08:42 Dose: 650 mg Documented By: MOUSTAPHA Amlodipine Besylate (Amlodipine Besylate 2.5 Mg Tablet) 2.5 mg PO DAILY [facility]; Protocol Last Admin: 04/24/23 09:14 Dose: 2.5 mg Documented By: KIM Atorvastatin Calcium (Atorvastatin Calcium 80 Mg Tablet) 80 mg PO BEDTIME [facility] Last Admin: 04/23/23 21:14 Dose: 80 mg Documented By: HERNÁN Dextrose (Dextrose 50 % 25 Gm/50 Ml Syringe) 25 gm IVPUSH Q15M PRN; Protocol PRN Reason: per Hypoglycemia Standing Ord. Divalproex Sodium (Divalproex Sodium Er 500 Mg Tab.Er.24h) 2,000 mg PO BEDTIME [facility] Last Admin: 04/23/23 21:13 Dose: 2,000 mg Documented By: ODRISM Enoxaparin Sodium (Enoxaparin Sodium 40 Mg/0.4 Ml Syringe) 40 mg SUBCUT Q24H [facility] Last Admin: 04/23/23 09:46 Dose: 40 mg Documented By: FOSTEKR Glucose (Glucose Gel 15 Gm Gel..Gram.) 15 gm PO Q15M PRN; Protocol PRN Reason: per Hypoglycemia Standing Ord. Guaifenesin (Guaifenesin La 600 Mg Tab.Er.12h) 600 mg PO BID [facility] Last Admin: 04/24/23 08:28 Dose: 600 mg Documented By: KIM Guaifenesin (Guaifenesin 100 Mg/5 Ml Liquid) 5 ml PO Q6H PRN PRN Reason: cough Last Admin: 04/18/23 08:43 Dose: 5 ml Documented By: MOUSTAPHA Insulin Human Lispro (Insulin Lispro 100 Unit/Ml 3 Ml Vial) 0 unit SUBCUT QIDACHS [facility]; Protocol Last Admin: 04/24/23 08:22 Dose: Not Given Documented By: KIM Non-Admin Reason: No Insulin Coverage Lisinopril (Lisinopril 20 Mg Tablet) 20 mg PO DAILY [facility]; Protocol Last Admin: 04/15/23 07:52 Dose: 20 mg Documented By: BETTE Melatonin (Melatonin 3 Mg Tablet) 9 mg PO BEDTIME [facility] Last Admin: 04/23/23 21:12 Dose: 9 mg Documented By: HERNÁN Metformin HCl (Metformin Hcl Er 500 Mg Tab.Er.24h) 1,000 mg PO BID [facility] Last Admin: 04/24/23 08:28 Dose: 1,000 mg Documented By: KIM Mirtazapine (Mirtazapine 30 Mg Tablet) 30 mg PO BEDTIME [facility] Last Admin: 04/23/23 21:14 Dose: 30 mg Documented By: HERNÁN Multivitamins/Vitamin C (Multivitamin Tablet) 1 tab PO DAILY [facility] Last Admin: 04/24/23 08:28 Dose: 1 tab Documented By: KIM Olanzapine (Olanzapine 10 Mg Tablet) 10 mg PO BEDTIME [facility] Last Admin: 04/23/23 21:14 Dose: 10 mg Documented By: HERNÁN Ondansetron HCl (Ondansetron Hcl 4 Mg/2 Ml Vial) 4 mg IVPUSH Q8H PRN PRN Reason: Nausea and Vomiting Pharmacy Consult (Consult Rx Perform Med Rec) 1 each MISCELLANE ONCE PRN PRN Reason: Consult order Sertraline HCl (Sertraline Hcl 50 Mg Tablet) 50 mg PO DAILY [facility] Last Admin: 04/24/23 08:28 Dose: 50 mg Documented By: KIM Sodium Chloride (0.9 % Sodium Chloride Flush 3 Ml Syringe) 3 ml IVFLUSH QSHIFT [facility] Last Admin: 04/24/23 08:28 Dose: 3 ml Documented By: KIM Tamsulosin HCl (Tamsulosin Hcl 0.4 Mg Capsule) 0.4 mg PO BEDTIME [facility] Last Admin: 04/23/23 21:14 Dose: 0.4 mg Documented By: HERNÁN Trazodone HCl (Trazodone Hcl 50 Mg Tablet) 50 mg PO BEDTIME PRN PRN Reason: Insomnia Labs 04/20/23 08:00 04/20/23 08:00 Labs: Laboratory Results - last 24 hr 04/23/23 04/23/23 04/23/23 11:20 16:22 20:58 POC Glucose 194 H 175 H 218 H 04/24/23 07:28 POC Glucose 117 H Assessment and Plan (1) COVID-19: Status: Acute (2) Autism spectrum disorder: Status: Acute Plan 62-year-old man? from [facility] with history of autism, diabetes and hypertension was brought to the ED on 04/13 to be evaluated for increasing tremors and generalized weakness. He was been observed in overflow waiting to be placed to rehab. The next day 04/14 he became hypoxic and tested positive for covid by both rapid test and PCR. He was then admitted and stared on steroid and O2. He as also noted to have JEREMÍAS on presentation, hospital course further complicated by urinary retention. Problems Acute hypoxic resp failure due to COVID-19,? oxygenation stable 99% on 2 L,? He has completed 10 days of Decadron. urinary retention noted with high PVR, started on Flomax ,? minimize medications with anticholinergic side effects, recommend outpatient urology follow-up in 2 weeks, JEREMÍAS--likely pre renal, Initial Creatine was 1.79 on 04/13 treated with IVF and now normal at 1.02 False High K? on 04/15, d/t hemolyis, repeat was normal. Bradycardia--Sinus bradycardia,? Toprol discontinued heart rate? remains low therefore cannot resume beta-blockers., presently 63 Hypertension..Holding metoprolol due to underlying baseline bradycardia as discussed above, no pause, continue Lisinopril 20/daily. Started on and will adjust dose to 2.5 mg daily at discharge Diabetes mellitus type 2--on Metformin `1000 bid, and was given sliding scal ein the hospital. Blood sugars were high due to steroid, but now better. hyperlipidemia continue statins Mental health--Autism and other mood disorder, has prior hospitalization at Psych unit for long period.? Seen by Psych as family wanted his tremors addressed.? continue Remeron, Depakote, Zyprexa and Zoloft.? Psych recommends Propranolol for resting tremors? but unable to use due to bradycardia. To be reassess by Psych on outpatient basis PT is recommending Short term rehab To Short term rehab for less than 30 days when rehab position available Time Spent With Patient Time: Total time managing care of this patient today ____ minutes. Quality Stroke Does the patient have a stroke diagnosis?: No VTE Prior VTE?: No VTE Risk Level:: Medical - moderate - high VTE Device Contraindication: Treatment Not Indicated VTE Drug Contraindication: N/A - Med Ordered
[2023-04-24 10:50] VITALS: O2SAT 95
--- NOTE | 2023-04-24 10:51 | MHC.CM.PN ---
CM RECEIVED CALL FROM BONNIE AT [facility] ASKING CM TO CLARIFY LEVEL 1 WHICH WAS DONE AND REFAXED, PER BONNIE CM CAN SEND PT TO STR, SNF UPDATED AND AWAITING RESPONSE.
[2023-04-24 11:42] VITALS: BP 113/71; BP 141/59; PULSE 63; PULSE 71; RESP 20; TEMP 36.3; O2SAT 95; O2SAT 99
[2023-04-24 11:53] LABS: Glucose, Whole Blood 184 mg/dL (60-115)
[2023-04-24] MEDS: Enoxaparin Sodium 40 MG/0.4 ML SYRINGE SUBCUT (12:06)
[2023-04-24] MEDS: Insulin Lispro 100 UNIT/ML 3 ML VIAL SUBCUT (12:06)
== END 2023-04-24 15:45 | disposition skilled nursing facility (03) | DRG 177 ==
LOC: HO.ED 04-14 13:01 → HO.EDOVER 04-15 12:20 → HO.IMC 04-15 12:24
PROVIDERS: Hospitalist; Physician Assistant; Social Worker; Student in an Organized Health Care Education/Training Program; Admitting Provider Nurse Practitioner Acute Care; Emergency Provider Emergency Medicine; PCP Internal Medicine; Visit Provider Internal Medicine
DX: U07.1 COVID-19 (principal); J96.01 Acute respiratory failure with hypoxia; N17.9 Acute kidney failure, unspecified; F84.0 Autistic disorder; I10 Essential (primary) hypertension; R00.1 Bradycardia, unspecified; R33.9 Retention of urine, unspecified; F39 Unspecified mood [affective] disorder; E78.5 Hyperlipidemia, unspecified; G25.2 Other specified forms of tremor; E86.1 Hypovolemia; E86.0 Dehydration; E11.9 Type 2 diabetes mellitus without complications; Z79.84 Long term (current) use of oral hypoglycemic drugs; Z79.899 Other long term (current) drug therapy
CPT/HCPCS: 0241U; 36415; 71046; 71275; 74177; 80048; 80053; 80164; 80307; 81001; 82140; 82550; 82803; 82947; 83690; 83735; 84132; 85025; 85027; 87635; 93005; 97110; 97162; 97530; 99285; C1758; J1100; J1200; J1650; J8540; Q9967

== ENCOUNTER 2023-05-05 14:28 | Observation (INO) | payer MEDICARE, MEDICAID, SELFPAY ==
--- NOTE | ~2023-05-05 | XR_ITS ---
EXAMINATION: XR CHEST CLINICAL INFORMATION: Sepsis COMPARISON: CT chest 04/15/2023 and chest radiograph 04/13/2023 TECHNIQUE: 2 views of the chest were obtained. FINDINGS: Lungs are hypoinflated. Heart size within normal limits. Bibasilar atelectasis is again seen. No consolidations, pleural effusions or lung masses. XR/XR chest 2V IMPRESSION: Hypoinflated lungs with bibasilar atelectasis. No acute intrathoracic disease.
[2023-05-05 14:40] VITALS: BP 148/88; BP 159/95; PULSE 88; PULSE 92; RESP 16; TEMP 37; O2SAT 100; O2SAT 99; BMI 31.4
[2023-05-05 15:41] VITALS: BP 143/90; PULSE 93; RESP 20; TEMP 37.5
[2023-05-05 15:53] VITALS: O2SAT 100
--- NOTE | 2023-05-05 16:08 | ED_ITS ---
HPI - Male Genitourinary General Chief complaint: Urogenital-Male Stated complaint: BLOODY URINE IN F/C FROM SNF PER EMS Time Seen by Provider: 05/05/23 15:51 Source: patient and other Mode of arrival: ambulatory Limitations: no limitations History of Present Illness HPI Narrative: 62-year-old male history of tremors hypertension autism diabetes presents emergency department after having a Hutchins placed when he came here 3 weeks ago. Patient has been complaining of the Hutchins catheter per his caregiver who is at the bedside. Patient had a Hutchins placed on the patient was here 2 weeks ago patient did see psych who recommended propranolol for the tremors the patient was too bradycardic to start treatment. Related Data Home Medications Medication Instructions Recorded Confirmed ipratropium 0.5 mg-albuterol 3 mg 3 ml inhalation Q6H PRN Shortness 05/05/23 05/05/23 (2.5 mg base)/3 mL nebulization Of Breath soln Previous Rx's Medication Instructions Recorded atorvastatin 80 mg tablet 80 mg PO BEDTIME 30 days #30 tabs 01/24/23 divalproex 500 mg tablet,extended 2,000 mg PO BEDTIME 30 days #120 01/24/23 release 24 hr tabs lisinopril 20 mg tablet 20 mg PO DAILY 30 days #30 tabs 01/24/23 melatonin 3 mg tablet 9 mg PO BEDTIME 30 days #90 tabs 01/24/23 metformin 500 mg tablet,extended 1,000 mg PO BID 30 days #120 tabs 01/24/23 release 24 hr mirtazapine 30 mg tablet 30 mg PO BEDTIME 30 days #30 tabs 01/24/23 multivitamin (Daily-Tanika tablet) 1 tab PO DAILY #0 tabs 01/24/23 olanzapine 10 mg tablet 10 mg PO BEDTIME 30 days #30 tabs 01/24/23 sertraline 50 mg tablet 50 mg PO DAILY 30 days #30 tabs 01/24/23 trazodone 50 mg tablet 50 mg PO BEDTIME PRN Insomnia 30 01/24/23 days #30 tabs tamsulosin 0.4 mg capsule 0.4 mg PO BEDTIME #30 caps 04/24/23 Allergies Allergy/AdvReac Type Severity Reaction Status Date / Time No Known Allergies Allergy Verified 04/13/23 11:42 [No Known Allergies*] Review of Systems Review of Systems: Review of systems: General: Tremors Patient denies any fever chills recent illness or falls Musculoskeletal: Denies back pain or body aches or other injuries HEENT: denies headache, runny nose, ear pain Respiratory: denies shortness of breath, cough Cardiovascular: no chest pain or palpitations : denies dysuria, frequency Abdomen: no nausea vomiting denies abdominal pain Extremities: no swelling, no pain Skin: no diaphoresis Yes all other systems are reviewed and are negative PMFSH Past Medical History Medical History (Updated 05/05/23 @ 19:34 by Lan Shore DO) Autism spectrum disorder Diabetes mellitus Hypertension Neurocognitive disorder Social History Social History Household Members: None Housing: Apartment Do you presently have visiting nurse or other home services: Yes Alcohol intake: never Patient Tobacco Use Status: Never used Tobacco Smoked in Last 30 Days: No Use of substances other than those prescribed or required for medical reasons: No Advance Directives: Yes Advance Directives on File: Yes Advance Directives Date on File: 04/14/23 service: No Sexual orientation: Don't Know Physical Exam Vital Signs: Vital Signs: Last Vital Signs Temp 99.5 F 05/05/23 15:41 Pulse 90 05/05/23 18:36 Resp 18 05/05/23 18:36 BP 161/97 H 05/05/23 18:36 Pulse Ox 100 05/05/23 15:53 O2 Del Method Room Air 05/05/23 15:53 BMI result Body Mass Index 31.4 Neurological exam: CN II- XII tested. Patient is alert and oriented to person place and time. Patient has no dysphagia or dysarthia, denies good vision in all four vision velasco no nystagmus on exam, good strength to upper and lower extremities with normal reflexes to brachioradialis, wrist, patella and achilles. Negative romberg, good finger to nose and heel to lazo. General: Well-appearing well-nourished in no signs of distress HEENT: Normocephalic atraumatic Neck: No signs of JVD, no masses no tenderness or lymphadenopathy Cardiovascular: Regular rate and rhythm Respiratory: Clear to auscultation bilaterally Abdomen: Soft nontender no masses Extremities: Normal pedal pulses no signs of edema Skin: Dry warm no rashes Back: No tenderness full ROM Course Reevaluation(s) Reevaluation #1: Labs show lactic of 7.9 patient will be given 3 L of fluid 30 cc/kg for the sepsis bolus is 2.8 L. I will also start the patient on Rocephin is likely urinary source of infection. Since patient has had a Hutchins for several weeks. There is no previous microbiology to compare blood cultures still pending at this time urine has not been sent. Time: 17:11 Medications Administered Discontinued Medications Generic Name Dose Route Start Last Admin Trade Name Freq PRN Reason Stop Dose Admin Sodium Chloride 1,000 mls @ 999 mls/hr 05/05/23 16:00 05/05/23 18:36 Ns IV 05/05/23 17:00 Infused .Q1H1M DESIRAE Infusion Sodium Chloride 1,000 mls @ 999 mls/hr 05/05/23 17:15 05/05/23 17:19 Ns IV 05/05/23 18:15 999 mls/hr .Q1H1M DESIRAE Administration Sodium Chloride 1,000 mls @ 999 mls/hr 05/05/23 17:15 05/05/23 18:34 Ns IV 05/05/23 18:15 999 mls/hr .Q1H1M DESIRAE Administration Ceftriaxone Sodium 1 gm/ 50 mls @ 100 mls/hr 05/05/23 17:10 05/05/23 18:32 Sodium Chloride IV 05/05/23 17:39 100 mls/hr ONCE ONE Administration Medical Decision Making Medical Decision Making [facility] Narrative: Remain concerned family. She had tremors but those been going on for some time I will make sure the person does have sepsis check the urine I will DC the Hutchins and get a urine sample Depakote level and ammonia are normal he has no WBC count but found to have UTI with hematuria and lactic acidosis. Likely a combined lactic acidosis. I will ad hernan to medicine. Given rocephin when lactic and started on 3 liters of fluid. Differential Diagnosis Differential Diagnoses: The differential diagnosis associated with the presentation includes UTI no longer needing fully chronic tremors multiple psych issues depression anxiety this also could be hyperammonemia due to Depakote. Admission/Observation Consideration of admission/observation: Escalation of care including admission/observation considered Consult Healthcare Provider Management of the patient was discussed with: Hospitalist Timothy who agreed with the plan for admission. Lab Data MDM Lab Attestation statement: I reviewed the patient's lab results. 05/05/23 16:19 05/05/23 16:19 Labs: Lab Results 05/05/23 05/05/23 05/05/23 Range/Units 16:19 16:19 16:19 WBC 6.4 (4.8-10.8) X10*3/uL RBC 4.23 L (4.60-5.80) X10*6/uL Hgb 13.1 L (14.0-18.0) g/dl Hct 39.0 L (42.0-52.0) % MCV 92.2 (80.0-98.0) fL MCH 31.0 (27.0-33.0) pg MCHC 33.6 (31.0-36.0) g/dl RDW 12.9 (11.0-16.0) % Plt Count 235 (160-400) X10*3/uL MPV 10.6 (9.4-12.4) fL Immature Gran % (Auto) 0.8 H (0.0-0.4) % Neut % (Auto) 66.5 (45-73) % Lymph % (Auto) 15.8 L (20-40) % [place] % (Auto) 15.6 H (2-11) % Eos % (Auto) 0.8 (0-4) % Baso % (Auto) 0.5 (0-2) % Lymph # (Auto) 1.0 L (1.2-4.9) X10*3/uL [place] # (Auto) 1.0 (0.1-1.2) X10*3/uL Eos # (Auto) 0.1 (0.0-0.4) X10*3/uL Baso # (Auto) 0.0 (0.0-0.2) X10*3/uL Abs Immat Gran (auto) 0.05 H (0.00-0.03) X10*3/uL Absolute Neuts (auto) 4.3 (2.0-8.3) x10*3/uL Absolute Nucleated RBC 0.000 (0.0-0.012) X10*3/uL Nucleated RBC % (auto) 0.0 (0.0-0.2) /100WBC Sodium 140 (135-145) mmol/L Potassium 4.1 (3.3-5.1) mmol/L Chloride 100 (96-108) mmol/L Carbon Dioxide 21 L (22-29) mmol/L Anion Gap 23 H (12-20) BUN 20 H (9-16) mg/dL Creatinine 1.17 (0.5-1.4) mg/dL Estim Creat Clear Calc 72.7 Estimated GFR > 60 Random Glucose 96 (60-115) mg/dL Lactic Acid 7.9 H* (0.5-2.0) mmol/L Calcium 10.4 H D (8.4-10.2) mg/dL Total Bilirubin 0.6 (0.0-1.0) mg/dL Direct Bilirubin 0.2 (0.0-0.5) mg/dL AST 51 H (5-37) U/L ALT 42 H (0-40) U/L Alkaline Phosphatase 62 (39-117) U/L Total Protein 7.6 (6.5-8.0) g/dL Albumin 3.8 (3.5-5.0) g/dL Lipase 23 (8-78) U/L Urine Color Urine Appearance Urine pH (5.0-9.0) Ur Specific [place] (1.005-1.025) Urine Protein (Neg-Trace) mg/dL Urine Glucose (UA) (Negative) mg/dL Urine Ketones (Negative) mg/dL Urine Blood (Negative) Urine Nitrite (Negative) Ur Leukocyte Esterase (Negative) Urine RBC (0-2) /HPF Urine WBC (0-5) /HPF Ur Squamous Epith Cells (0-2) /HPF Urine Bacteria (None Seen) Hyaline Casts (0-2) /LPF COVID-19 (ERIBERTO) (Negative) COVID-19 Clin Com 05/05/23 05/05/23 Range/Units 16:19 18:30 WBC (4.8-10.8) X10*3/uL RBC (4.60-5.80) X10*6/uL Hgb (14.0-18.0) g/dl Hct (42.0-52.0) % MCV (80.0-98.0) fL MCH (27.0-33.0) pg MCHC (31.0-36.0) g/dl RDW (11.0-16.0) % Plt Count (160-400) X10*3/uL MPV (9.4-12.4) fL Immature Gran % (Auto) (0.0-0.4) % Neut % (Auto) (45-73) % Lymph % (Auto) (20-40) % [place] % (Auto) (2-11) % Eos % (Auto) (0-4) % Baso % (Auto) (0-2) % Lymph # (Auto) (1.2-4.9) X10*3/uL [place] # (Auto) (0.1-1.2) X10*3/uL Eos # (Auto) (0.0-0.4) X10*3/uL Baso # (Auto) (0.0-0.2) X10*3/uL Abs Immat Gran (auto) (0.00-0.03) X10*3/uL Absolute Neuts (auto) (2.0-8.3) x10*3/uL Absolute Nucleated RBC (0.0-0.012) X10*3/uL Nucleated RBC % (auto) (0.0-0.2) /100WBC Sodium (135-145) mmol/L Potassium (3.3-5.1) mmol/L Chloride (96-108) mmol/L Carbon Dioxide (22-29) mmol/L Anion Gap (12-20) BUN (9-16) mg/dL Creatinine (0.5-1.4) mg/dL Estim Creat Clear Calc Estimated GFR Random Glucose (60-115) mg/dL Lactic Acid (0.5-2.0) mmol/L Calcium (8.4-10.2) mg/dL Total Bilirubin (0.0-1.0) mg/dL Direct Bilirubin (0.0-0.5) mg/dL AST (5-37) U/L ALT (0-40) U/L Alkaline Phosphatase (39-117) U/L Total Protein (6.5-8.0) g/dL Albumin (3.5-5.0) g/dL Lipase (8-78) U/L Urine Color Yellow Urine Appearance Cloudy Urine pH 7.0 (5.0-9.0) Ur Specific [place] 1.020 (1.005-1.025) Urine Protein 300 (3+) H (Neg-Trace) mg/dL Urine Glucose (UA) Negative (Negative) mg/dL Urine Ketones Trace (Negative) mg/dL Urine Blood Large (3+) H (Negative) Urine Nitrite Negative (Negative) Ur Leukocyte Esterase Small (1+) H (Negative) Urine RBC >20 H (0-2) /HPF Urine WBC >50 H (0-5) /HPF Ur Squamous Epith Cells 3-5 (0-2) /HPF Urine Bacteria None Seen (None Seen) Hyaline Casts 0-2 (0-2) /LPF COVID-19 (ERIBERTO) Positive A (Negative) COVID-19 Clin Com See Note Independent Historian Clinical information obtained from an independent historian. History obtained from or confirmed by: Other Caregivers at the bedside External Record Review External record reviewed: Inpatient record Did review notes from the previous visit. Procedures Procedure Narrative Procedure Narrative: Bedside ultrasound performed patient has normal appearance the kidneys might have a cyst on the left kidney and the bladder is decompressed. Critical Care Time Critical Care Time Critical Care Time: Yes Total Critical Care Time: 40 Attestation: Patient came in with concerns for UTI found to have a profound lactic acidosis given antibiotics and sepsis fluids and admitted to medicine. Discharge Plan Discharge Clinical Impression: Weakness, Urinary tract infection, Acidosis, lactic Prescriptions: No Action olanzapine 10 mg Tablet 10 mg PO BEDTIME 30 Days Qty: 30 0RF mirtazapine 30 mg Tablet 30 mg PO BEDTIME 30 Days Qty: 30 0RF divalproex 500 mg Tablet Extended Release 24 Hr 2,000 mg PO BEDTIME 30 Days Qty: 120 0RF sertraline 50 mg Tablet 50 mg PO DAILY 30 Days Qty: 30 0RF multivitamin [Daily-Tanika] Tablet 1 tab PO DAILY Qty: 0 0RF trazodone 50 mg Tablet 50 mg PO BEDTIME PRN (Reason: Insomnia) 30 Days Qty: 30 0RF atorvastatin 80 mg tablet 80 mg PO BEDTIME 30 Days Qty: 30 0RF lisinopril 20 mg tablet 20 mg PO DAILY 30 Days Qty: 30 0RF melatonin 3 mg tablet 9 mg PO BEDTIME 30 Days Qty: 90 0RF metformin 500 mg tablet extended release 24 hr 1,000 mg PO BID 30 Days Qty: 120 0RF ipratropium-albuterol 0.5 mg-3 mg(2.5 mg base)/3 mL Solution For Nebulization 3 ml INHALATION Q6H PRN (Reason: Shortness Of Breath) tamsulosin 0.4 mg Capsule 0.4 mg PO BEDTIME Qty: 30 0RF
--- NOTE | 2023-05-05 16:25 | PC.NURSE ---
pt a&ox3, visible tremor seems to be at baseline since covid. respirations equal and unlabored. normal sinus on tele. skin warm pink and dry. abodomen hard but non tender. at bedside, decision to d/c kennedy was made d/t pt discomfort. Kennedy drainage was shanice with few blood clots. bladder scan done before d/c with 4ml of urine. pt tolerated removal of kennedy well.
[2023-05-05 16:27] LABS: MANUAL DIFF FLAG NO
[2023-05-05 16:31] LABS: Basophils Percent Auto 0.5 % (0-2); Eosinophils Absolute Auto 0.1 X10*3/uL (0.0-0.4); Eosinophils Percent Auto 0.8 % (0-4); Hemoglobin 13.1 g/dl (14.0-18.0); Imm Gran Abs Auto 0.05 X10*3/uL (0.00-0.03); Imm Gran Pct Auto 0.8 % (0.0-0.4); Lymphocytes Percent Auto 15.8 % (20-40); Mean Corpuscular HGB Conc 33.6 g/dl (31.0-36.0); Mean Corpuscular Volume 92.2 fL (80.0-98.0); Mean Platelet Volume 10.6 fL (9.4-12.4); Monocytes Percent Auto 15.6 % (2-11); Neutrophils Absolute Auto 4.3 x10*3/uL (2.0-8.3); Neutrophils Percent Auto 66.5 % (45-73); Platelet Count 235 X10*3/uL (160-400); Red Blood Count 4.23 X10*6/uL (4.60-5.80); Red Cell Distribution Width 12.9 % (11.0-16.0); White Blood Count 6.4 X10*3/uL (4.8-10.8)
[2023-05-05 17:03] LABS: Alanine Aminotransferase 42 U/L (0-40); Albumin Level 3.8 g/dL (3.5-5.0); Alkaline Phosphatase 62 U/L (39-117); Anion Gap 23 (12-20); Aspartate Amino Transferase 51 U/L (5-37); Bilirubin Direct 0.2 mg/dL (0.0-0.5); Bilirubin Total 0.6 mg/dL (0.0-1.0); Blood Urea Nitrogen 20 mg/dL (9-16); Calcium 10.4 mg/dL (8.4-10.2); Carbon Dioxide 21 mmol/L (22-29); Chloride 100 mmol/L (96-108); Creatinine Clr Calc Pharmacy 72.7; Estimated Glomerular Filt Rate > 60; Glucose Random 96 mg/dL (60-115); Lipase 23 U/L (8-78); Potassium 4.1 mmol/L (3.3-5.1); Sodium 140 mmol/L (135-145); Total Protein 7.6 g/dL (6.5-8.0)
--- NOTE | 2023-05-05 17:13 | PHA.MEDREC ---
Pharmacy Consult ? Medication Reconciliation Pharmacy has completed the medication reconciliation. Patient came from [facility] with med list. Dolores Connors, ZulmaD
[2023-05-05 18:26] LABS: Reflex Lactate? Lactic Acid Added
[2023-05-05] MEDS: cefTRIAXone sodium 1 GM in 0.9 % Sodium Chloride 50 ML IV (18:32)
[2023-05-05] MEDS: 0.9 % Sodium Chloride 1,000 ML 999 ML IV (18:34)
[2023-05-05 18:36] VITALS: BP 161/97; PULSE 90; RESP 18
--- NOTE | 2023-05-05 18:39 | PC.NURSE ---
pt unable to provide a urine sample after the kennedy cath removal, pt was straight cathed about 200ml of blood tinged urine and sample sent down-tolerated the procedure well. delay on the abx do to urine delay as well. vs stable at this time
[2023-05-05 18:53] LABS: Appearance Urine Cloudy; Glucose Urine UA Negative (Negative); Leukocyte Esterase Urine Small (1+) (Negative); Nitrite Urine Negative (Negative); UMIC TRIGGER UACC YES; Urine Blood Large (3+) (Negative); Urine Ketones Trace mg/dL (Negative); Urine Protein 300 (3+) mg/dL (Neg-Trace)
[2023-05-05 18:54] LABS: Color Urine Yellow
[2023-05-05 18:58] LABS: Bacteria Urine None Seen (None Seen); Hyaline Casts Urine 0-2 /LPF (0-2); UACC Culture Trigger YES; WBC Urine >50 /HPF (0-5)
[2023-05-05 18:59] LABS: RBC Urine >20 /HPF (0-2)
[2023-05-05 19:47] LABS: Ammonia 38 umol/L (13-55)
--- NOTE | 2023-05-05 19:51 | PC.NURSE ---
per dr zepeda pt to receive TOTAL of 3 lt NS IVF. charted according in mar
--- NOTE | 2023-05-05 20:01 | PM.IMHP ---
History of Present Illness Date of Service: 05/05/23 Chief Complaint: Abdominal pain 62-year-old male with past medical history high a per attention, diabetes, AST, neurocognitive disorder presents the hospital with complaints of Hutchins catheter pain. Of note patient was discharged from the hospital at the end the March after being treated for JEREMÍAS, hypoxic respiratory failure, urinary retention status post Hutchins catheter placement. Patient has had this Hutchins catheter in place since its insertion in March and he was supposed to follow-up with Urology but patient states that he has not. He states that he has pain in the lower abdomen, denies any fever or chills, reports no chest pain, no shortness of breath, no cough, no headache or change in vision. The Hutchins catheter was removed in the ED and patient states that he is incontinent right now and has dysuria and urgency on urination but no retention. All other review of systems negative On arrival to the EDPatient hemodynamically stable no significant abnormal vitals Labs are significant for WBC count of 6.4, BUN of 20, creatinine of 1.17 which is around his baseline, lactic acid of 7.9, UA positive for leukocyte Estrace, WBC, Serology positive for COVID-19 Patient started on antibiotics, fluids, will be admitted for further management Review of Systems Review of Systems: Yes all other systems are reviewed and are negative [facility] Medical History Autism spectrum disorder Diabetes mellitus Hypertension Neurocognitive disorder Social History Household Members: None Housing: Apartment Do you presently have visiting nurse or other home services: Yes Alcohol intake: never Patient Tobacco Use Status: Never used Tobacco Smoked in Last 30 Days: No Use of substances other than those prescribed or required for medical reasons: No Advance Directives: Yes Advance Directives on File: Yes Advance Directives Date on File: 04/14/23 service: No Sexual orientation: Don't Know Meds Allergies Allergy/AdvReac Type Severity Reaction Status Date / Time No Known Allergies Allergy Verified 04/13/23 11:42 [No Known Allergies*] Active Medications: Current Medications Pharmacy Consult (Consult Rx Perform Med Rec) 1 each MISCELLANE ONCE PRN PRN Reason: Consult order Home Medications Medication Instructions Recorded Confirmed Last Taken Type ipratropium 0.5 mg-albuterol 3 mg 3 ml inhalation Q6H PRN Shortness 05/05/23 05/05/23 Unknown History (2.5 mg base)/3 mL nebulization Of Breath soln Physical Exam Vital Signs and Narrative: Vital Signs: Last Vital Signs Temp 99.5 F 05/05/23 15:41 Pulse 90 05/05/23 18:36 Resp 18 05/05/23 18:36 BP 161/97 H 05/05/23 18:36 Pulse Ox 100 05/05/23 15:53 O2 Del Method Room Air 05/05/23 15:53 BMI result Body Mass Index 31.4 Const: Other: Slow to answer but oriented to self and place General: cooperative and no acute distress Eyes: General: appearance normal, both eyes and all related structures Resp: Effort & Inspection: normal respiratory effort Auscultation: clear to auscultation bilaterally Cardio: Rate: regular rate Rhythm: regular rhythm GI: Other: No abdominal tenderness, no guarding or rebound Palpation (GI): Soft to palpation Auscultation: normal bowel sounds Skin: General skin exam: no rashes or lesions noted Neuro: Cognition (Neuro): normal cognition Extrem: General: Yes normal to inspection and Yes no pedal edema Results Labs 05/05/23 16:19 05/05/23 16:19 Labs: Laboratory Results - last 24 hr 05/05/23 05/05/23 05/05/23 16:19 16:19 16:19 MCV 92.2 MCH 31.0 MCHC 33.6 RDW 12.9 Plt Count 235 MPV 10.6 Immature Gran % (Auto) 0.8 H Neut % (Auto) 66.5 Lymph % (Auto) 15.8 L [place] % (Auto) 15.6 H Eos % (Auto) 0.8 Baso % (Auto) 0.5 Lymph # (Auto) 1.0 L [place] # (Auto) 1.0 Eos # (Auto) 0.1 Baso # (Auto) 0.0 Abs Immat Gran (auto) 0.05 H Absolute Neuts (auto) 4.3 Absolute Nucleated RBC 0.000 Nucleated RBC % (auto) 0.0 Anion Gap 23 H Estim Creat Clear Calc 72.7 Estimated GFR > 60 Random Glucose 96 Lactic Acid 7.9 H* Calcium 10.4 H D Total Bilirubin 0.6 Direct Bilirubin 0.2 AST 51 H ALT 42 H Alkaline Phosphatase 62 Ammonia Total Protein 7.6 Albumin 3.8 Lipase 23 Urine Color Urine Appearance Urine pH Ur Specific [place] Urine Protein Urine Glucose (UA) Urine Ketones Urine Blood Urine Nitrite Ur Leukocyte Esterase Urine RBC Urine WBC Ur Squamous Epith Cells Urine Bacteria Hyaline Casts COVID-19 (ERIBERTO) COVID-19 Clin Com 05/05/23 05/05/23 05/05/23 16:19 16:39 18:30 MCV MCH MCHC RDW Plt Count MPV Immature Gran % (Auto) Neut % (Auto) Lymph % (Auto) [place] % (Auto) Eos % (Auto) Baso % (Auto) Lymph # (Auto) [place] # (Auto) Eos # (Auto) Baso # (Auto) Abs Immat Gran (auto) Absolute Neuts (auto) Absolute Nucleated RBC Nucleated RBC % (auto) Anion Gap Estim Creat Clear Calc Estimated GFR Random Glucose Lactic Acid Calcium Total Bilirubin Direct Bilirubin AST ALT Alkaline Phosphatase Ammonia 38 Total Protein Albumin Lipase Urine Color Yellow Urine Appearance Cloudy Urine pH 7.0 Ur Specific [place] 1.020 Urine Protein 300 (3+) H Urine Glucose (UA) Negative Urine Ketones Trace Urine Blood Large (3+) H Urine Nitrite Negative Ur Leukocyte Esterase Small (1+) H Urine RBC >20 H Urine WBC >50 H Ur Squamous Epith Cells 3-5 Urine Bacteria None Seen Hyaline Casts 0-2 COVID-19 (ERIBERTO) Positive A COVID-19 Clin Com See Note Imaging Radiologist's Impressions: Impressions Chest X-Ray 05/05/23 17:27 IMPRESSION: Hypoinflated lungs with bibasilar atelectasis. No acute intrathoracic disease. Assessment and Plan (1) Acute UTI: Status: Acute (2) Acidosis, lactic: Status: Acute (3) COVID-19: Status: Acute Plan This is a 62-year-old male with past medical history of hypertension, diabetes with recent Hutchins catheter insertion for urinary retention, presents the hospital with complaints lower abdominal pain in Hutchins catheter discomfort # acute UTI - symptomatic, with lactic acidosis - secondary to Hutchins catheter insertion - will treat with IV antibiotics - follow cultures # lactic acidosis - unclear etiology, possibly secondary to metformin - no hypoxia, no hypotension - continue IV fluids - trend lactic acid - hold metformin # COVID-19 positive - asymptomatic - monitor symptoms # urinary retention - resolved - will remove the Hutchins catheter - monitor urinary symptoms - continue tamsulosin # diabetes - hold oral antihyperglycemics - will place on low-dose sliding scale insulin # hypertension - stable - any antihypertensives DVT prophylaxis: Lovenox Time Spent With Patient Time: Total time managing care of this patient today ____ minutes. Quality Stroke Does the patient have a stroke diagnosis?: No VTE Prior VTE?: No VTE Risk Level:: Medical - moderate - high VTE Device Contraindication: Treatment Not Indicated VTE Drug Contraindication: N/A - Med Ordered
[2023-05-05 20:19] LABS: Lactic Acid 1.5 mmol/L (0.5-2.0)
--- NOTE | 2023-05-05 21:01 | PC.NURSE ---
this rn attempted to call rn to rn report. per rn will call back
[2023-05-05] MEDS: Lactated Ringers 1,000 ML 100 ML IVCONT (21:26)
[2023-05-05] MEDS: Enoxaparin Sodium 40 MG/0.4 ML SYRINGE SUBCUT (21:27)
[2023-05-05 23:32] VITALS: BP 156/86; PULSE 75; RESP 24; TEMP 36.8; O2SAT 98
[2023-05-05 23:42] LABS: Glucose, Whole Blood 115 mg/dL (60-115)
[2023-05-06 03:41] VITALS: BMI 31.5
[2023-05-06 03:46] VITALS: BP 158/83; PULSE 60; RESP 18; TEMP 36.8; O2SAT 98
[2023-05-06 06:53] LABS: MANUAL DIFF FLAG NO
[2023-05-06 06:58] LABS: Basophils Percent Auto 0.4 % (0-2); Eosinophils Absolute Auto 0.1 X10*3/uL (0.0-0.4); Eosinophils Percent Auto 1.7 % (0-4); Hematocrit 34.9 % (42.0-52.0); Hemoglobin 11.8 g/dl (14.0-18.0); Imm Gran Abs Auto 0.06 X10*3/uL (0.00-0.03); Imm Gran Pct Auto 1.1 % (0.0-0.4); Lymphocytes Absolute Auto 1.5 X10*3/uL (1.2-4.9); Lymphocytes Percent Auto 28.7 % (20-40); Mean Corpuscular HGB Conc 33.8 g/dl (31.0-36.0); Mean Corpuscular Hemoglobin 31.1 pg (27.0-33.0); Mean Corpuscular Volume 92.1 fL (80.0-98.0); Mean Platelet Volume 10.4 fL (9.4-12.4); Monocytes Absolute Auto 0.8 X10*3/uL (0.1-1.2); Monocytes Percent Auto 15.1 % (2-11); Neutrophils Absolute Auto 2.9 x10*3/uL (2.0-8.3); Platelet Count 185 X10*3/uL (160-400); Red Blood Count 3.79 X10*6/uL (4.60-5.80); White Blood Count 5.4 X10*3/uL (4.8-10.8)
[2023-05-06 07:20] LABS: Anion Gap 14 (12-20); Blood Urea Nitrogen 15 mg/dL (9-16); Carbon Dioxide 26 mmol/L (22-29); Chloride 102 mmol/L (96-108); Creatinine Clr Calc Pharmacy 78.1; Estimated Glomerular Filt Rate > 60; Glucose Random 110 mg/dL (60-115); Potassium 3.9 mmol/L (3.3-5.1); Sodium 138 mmol/L (135-145)
[2023-05-06] MEDS: Lactated Ringers 1,000 ML 100 ML IVCONT ×2 (07:26→17:35)
[2023-05-06 07:57] VITALS: BP 143/85; PULSE 57; RESP 20; TEMP 36.4; O2SAT 97
--- NOTE | 2023-05-06 08:41 | P.PNIM_ITS ---
Subjective Subjective Date of Service: 05/06/23 Review of Systems Follow up UTI no pain or discomfort Physical Exam Vital Signs: Vital Signs: Last Vital Signs Temp 97.5 F 05/06/23 07:57 Pulse 57 05/06/23 07:57 Resp 20 05/06/23 07:57 BP 143/85 H 05/06/23 07:57 Pulse Ox 97 05/06/23 07:57 O2 Del Method Room Air 05/06/23 07:57 BMI result Body Mass Index 31.5 Appearing in no acute distress lung sounds are clear to auscultation heart regular rate rhythm, clear S1, S2 positive bowel sounds, abdomen is soft, nontender neuro patient is alert x3, no focal deficits Objective Data Active Medications Acetaminophen (Acetaminophen 325 Mg Tablet) 650 mg PO Q6H PRN PRN Reason: Pain, Mild (Pain Scale 1-3) Docusate Sodium (Docusate Sodium 100 Mg Capsule) 100 mg PO DAILY PRN PRN Reason: Constipation Enoxaparin Sodium (Enoxaparin Sodium 40 Mg/0.4 Ml Syringe) 40 mg SUBCUT Q24H [facility] Last Admin: 05/05/23 21:27 Dose: 40 mg Documented By: GUME Ceftriaxone Sodium 1 gm/ (Sodium Chloride) 50 mls @ 100 mls/hr IV Q24H [facility] Lactated Ringer's (Lr) 1,000 mls @ 100 mls/hr IVCONT .Q10H [facility] Last Admin: 05/06/23 07:26 Dose: 100 mls/hr Documented By: TREVOR Ondansetron HCl (Ondansetron Hcl 4 Mg/2 Ml Vial) 4 mg IVPUSH Q8H PRN PRN Reason: Nausea and Vomiting Pharmacy Consult (Consult Rx Perform Med Rec) 1 each MISCELLANE ONCE PRN PRN Reason: Consult order Sodium Chloride (0.9 % Sodium Chloride Flush 3 Ml Syringe) 3 ml IVFLUSH QSHIFT [facility] Last Admin: 05/06/23 01:37 Dose: Not Given Documented By: TREVOR Non-Admin Reason: IV Running Labs 05/06/23 06:23 05/06/23 06:23 Labs: Laboratory Results - last 24 hr 05/05/23 05/05/23 05/05/23 16:19 16:19 16:19 MCV 92.2 MCH 31.0 MCHC 33.6 RDW 12.9 Plt Count 235 MPV 10.6 Immature Gran % (Auto) 0.8 H Neut % (Auto) 66.5 Lymph % (Auto) 15.8 L [place] % (Auto) 15.6 H Eos % (Auto) 0.8 Baso % (Auto) 0.5 Lymph # (Auto) 1.0 L [place] # (Auto) 1.0 Eos # (Auto) 0.1 Baso # (Auto) 0.0 Abs Immat Gran (auto) 0.05 H Absolute Neuts (auto) 4.3 Absolute Nucleated RBC 0.000 Nucleated RBC % (auto) 0.0 Anion Gap 23 H Estim Creat Clear Calc 72.7 Estimated GFR > 60 POC Glucose Random Glucose 96 Lactic Acid 7.9 H* Calcium 10.4 H D Total Bilirubin 0.6 Direct Bilirubin 0.2 AST 51 H ALT 42 H Alkaline Phosphatase 62 Ammonia Total Protein 7.6 Albumin 3.8 Lipase 23 Urine Color Urine Appearance Urine pH Ur Specific [place] Urine Protein Urine Glucose (UA) Urine Ketones Urine Blood Urine Nitrite Ur Leukocyte Esterase Urine RBC Urine WBC Ur Squamous Epith Cells Urine Bacteria Hyaline Casts COVID-19 ([facility]IBERTO) COVID-19 Clin Com 05/05/23 05/05/23 05/05/23 16:19 16:39 18:30 MCV MCH MCHC RDW Plt Count MPV Immature Gran % (Auto) Neut % (Auto) Lymph % (Auto) [place] % (Auto) Eos % (Auto) Baso % (Auto) Lymph # (Auto) [place] # (Auto) Eos # (Auto) Baso # (Auto) Abs Immat Gran (auto) Absolute Neuts (auto) Absolute Nucleated RBC Nucleated RBC % (auto) Anion Gap Estim Creat Clear Calc Estimated GFR POC Glucose Random Glucose Lactic Acid Calcium Total Bilirubin Direct Bilirubin AST ALT Alkaline Phosphatase Ammonia 38 Total Protein Albumin Lipase Urine Color Yellow Urine Appearance Cloudy Urine pH 7.0 Ur Specific [place] 1.020 Urine Protein 300 (3+) H Urine Glucose (UA) Negative Urine Ketones Trace Urine Blood Large (3+) H Urine Nitrite Negative Ur Leukocyte Esterase Small (1+) H Urine RBC >20 H Urine WBC >50 H Ur Squamous Epith Cells 3-5 Urine Bacteria None Seen Hyaline Casts 0-2 COVID-19 (ERIBERTO) Positive A COVID-19 Clin Com See Note 05/05/23 05/05/23 05/06/23 19:50 23:37 06:23 MCV 92.1 MCH 31.1 MCHC 33.8 RDW 13.0 Plt Count 185 MPV 10.4 Immature Gran % (Auto) 1.1 H Neut % (Auto) 53.0 Lymph % (Auto) 28.7 [place] % (Auto) 15.1 H Eos % (Auto) 1.7 Baso % (Auto) 0.4 Lymph # (Auto) 1.5 [place] # (Auto) 0.8 Eos # (Auto) 0.1 Baso # (Auto) 0.0 Abs Immat Gran (auto) 0.06 H Absolute Neuts (auto) 2.9 Absolute Nucleated RBC 0.000 Nucleated RBC % (auto) 0.0 Anion Gap Estim Creat Clear Calc Estimated GFR POC Glucose 115 Random Glucose Lactic Acid 1.5 Calcium Total Bilirubin Direct Bilirubin AST ALT Alkaline Phosphatase Ammonia Total Protein Albumin Lipase Urine Color Urine Appearance Urine pH Ur Specific [place] Urine Protein Urine Glucose (UA) Urine Ketones Urine Blood Urine Nitrite Ur Leukocyte Esterase Urine RBC Urine WBC Ur Squamous Epith Cells Urine Bacteria Hyaline Casts COVID-19 (ERIBERTO) COVID-19 Clin Com 05/06/23 06:23 MCV MCH MCHC RDW Plt Count MPV Immature Gran % (Auto) Neut % (Auto) Lymph % (Auto) [place] % (Auto) Eos % (Auto) Baso % (Auto) Lymph # (Auto) [place] # (Auto) Eos # (Auto) Baso # (Auto) Abs Immat Gran (auto) Absolute Neuts (auto) Absolute Nucleated RBC Nucleated RBC % (auto) Anion Gap 14 Estim Creat Clear Calc 78.1 Estimated GFR > 60 POC Glucose Random Glucose 110 Lactic Acid Calcium 9.0 D Total Bilirubin Direct Bilirubin AST ALT Alkaline Phosphatase Ammonia Total Protein Albumin Lipase Urine Color Urine Appearance Urine pH Ur Specific [place] Urine Protein Urine Glucose (UA) Urine Ketones Urine Blood Urine Nitrite Ur Leukocyte Esterase Urine RBC Urine WBC Ur Squamous Epith Cells Urine Bacteria Hyaline Casts COVID-19 ([facility]ERTO) COVID-19 Clin Com Assessment and Plan (1) Acute UTI: Status: Acute Plan This is a 62-year-old male with past medical history of hypertension, diabetes with recent Hutchins catheter insertion for urinary retention, presents the hospital with complaints lower abdominal pain in Hutchins catheter discomfort Acute UTI symptomatic, with lactic acidosis secondary to Hutchins catheter insertion Rocephin follow cultures lactic acidosis unclear etiology, possibly secondary to metformin no hypoxia, no hypotension continue IV fluids trend lactic acid hold metformin COVID-19 positive asymptomatic positive since 04/14/23 no need for isolation urinary retention resolved removed Hutchins catheter monitor urinary symptoms continue tamsulosin diabetes hold oral antihyperglycemics will place on low-dose sliding scale insulin hypertension stable DVT prophylaxis:? Champ Attending Dr. Mckeon full code Time Spent With Patient Time: Total time managing care of this patient today ____ minutes. Quality Stroke Does the patient have a stroke diagnosis?: No VTE Prior VTE?: No VTE Risk Level:: Medical - moderate - high VTE Device Contraindication: Treatment Not Indicated VTE Drug Contraindication: N/A - Med Ordered
--- NOTE | 2023-05-06 09:15 | MHC.CM.PN ---
CM met with Patient at bedside and addressed DIANE with him, providing Patient with the original and placing a copy on the chart. Patient comes from [facility] and he is a [facility] bed hold there. CM also spoke with privately hired Homemaker 2X/week (Darcy @ [phone]). Patient attends a [facility] Day program, has an Shantel CAVAZOS RN BID for meds and a Mental Health It Trainer from [facility]. Returning to [facility] vs Home with said services pending PT eval is the tentative plan and CM has initiated and will follow for dc planning. Patient is will spaulding'quinn x5 and his PCP is Dr. Eric Rios.
--- NOTE | 2023-05-06 09:21 | MHC.CM.PN ---
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
[2023-05-06 11:37] VITALS: BP 175/96; PULSE 65; RESP 20; TEMP 36.4; O2SAT 96
[2023-05-06 15:19] VITALS: BP 170/87; PULSE 55; RESP 20; TEMP 36.4; O2SAT 98
[2023-05-06 19:30] VITALS: BP 142/92; PULSE 58; RESP 18; TEMP 36.7; O2SAT 95
[2023-05-06] MEDS: cefTRIAXone sodium 1 GM in 0.9 % Sodium Chloride 50 ML IV (20:04)
[2023-05-06] MEDS: Enoxaparin Sodium 40 MG/0.4 ML SYRINGE SUBCUT (20:04)
[2023-05-06] MEDS: 0.9 % Sodium Chloride Flush 3 ML SYRINGE IVFLUSH (20:05)
[2023-05-07] VITALS: BP 145/85; PULSE 62; RESP 20; TEMP 36.4; O2SAT 95
[2023-05-07] MEDS: Lactated Ringers 1,000 ML 100 ML IVCONT (03:21)
[2023-05-07 03:41] VITALS: BP 148/83; PULSE 52; RESP 20; TEMP 36.5; O2SAT 99
[2023-05-07 07:48] VITALS: BP 150/90; PULSE 60; RESP 20; TEMP 36.5; O2SAT 96
--- NOTE | 2023-05-07 08:03 | PM.DS ---
DS: Providers Provider Date of Service: 05/07/23 Date of admission: 05/05/23 19:55 Primary care physician: Unknown Physician DS: Diagnosis Discharge Diagnosis (1) Acute UTI: Status: Acute DS: Summary Hospital Course Hospital Course: HP as per admitting provider .62-year-old male with past medical history high a per attention, diabetes, AST, neurocognitive disorder presents the hospital with complaints of Hutchins catheter pain.? Of note patient was discharged from the hospital at the end the March after being treated for JEREMÍAS, hypoxic respiratory failure, urinary retention status post Hutchins catheter placement.? Patient has had this Hutchins catheter in place since its insertion in March and he was supposed to follow-up with Urology but patient states that he has not.? He states that he has pain in the lower abdomen, denies any fever or chills, reports no chest pain, no shortness of breath, no cough, no headache or change in vision.? The Hutchins catheter was removed in the ED and patient states that he is incontinent right now and has dysuria and urgency on urination but no retention. All other review of systems negative On arrival to the EDPatient hemodynamically stable no significant abnormal vitals Labs are significant for WBC count of 6.4, BUN of 20, creatinine of 1.17 which is around his baseline, lactic acid of 7.9, UA positive for leukocyte Estrace, WBC, Serology positive for COVID-19. Patient started on antibiotics, fluids, will be admitted for further management 62-year-old man treated for acute urinary tract infection and urinary retention. Patient had previously been hospitalized and had a Hutchins catheter placed due to urinary retention. In this admission he was complaining of lower abdominal pain and Hutchins catheter was removed in the emergency department. Patient has not had any difficulties urinating. He was treated with Rocephin for urinary tract infection. Urine culture was negative. Total 5 days of antibiotic treatment, 2 more days of Ceftin on discharge. Continue tamsulosin. History of COVID-19 positive. Positive since 04/14/2023. Not placed on isolation during hospitalization diabetes. Continue home medications Hypertension. Continue medications Time Spent with Patient Time attestation: Total time managing care of this patient today ____ minutes. Discharge coordination time: Greater than 30 minutes Quality: Safe Use of Opioids Does Pt have an Active Cancer Diagnosis on the Problem List?: No Quality: Stroke Does the patient have a stroke diagnosis?: No Physical Exam Vital Signs: Vital Signs: Last Vital Signs Temp 97.7 F 05/07/23 07:48 Pulse 60 05/07/23 07:48 Resp 20 05/07/23 07:48 BP 150/90 H 05/07/23 07:48 Pulse Ox 96 05/07/23 07:48 O2 Del Method Room Air 05/07/23 07:48 BMI result Body Mass Index 31.5 Appearing in no acute distress head is normocephalic atraumatic eyes pupils are PERRLA sclera is anicteric mouth throat mucous membranes are intact and moist neck is supple no lymphadenopathy, no JVD noted lung sounds are clear to auscultation heart regular rate rhythm, clear S1, S2 positive bowel sounds, abdomen is soft, nontender neuro patient is alert x3, no focal deficits DS: Data Data Completed and Pending Labs on day of discharge: Preliminary micro results at discharge 05/05/23 16:39 Blood Culture - Preliminary Blood - Venous No growth after 24 hours. 05/05/23 16:19 Blood Culture - Preliminary Blood - Venous No growth after 24 hours. 05/05/23 18:59 Urine Culture - Preliminary Urine Catheterized - Hutchins Catheter No growth to date. Discharge Plan Discharge Anticipated Discharge Date/Time: 05/07/23 08:00 Patient Disposition: Xfer SNF Discharge Diagnosis: UTI urinary retention Referrals: [facility] [Outside] - 1 Day (RESUMPTION OF CARE TO [facility] SHORT TERM REH[facility]) Discharge Medications: New cefuroxime axetil 500 mg tablet 500 mg PO BID Qty: 4 0RF Continued olanzapine 10 mg Tablet 10 mg PO BEDTIME 30 Days Qty: 30 0RF mirtazapine 30 mg Tablet 30 mg PO BEDTIME 30 Days Qty: 30 0RF divalproex 500 mg Tablet Extended Release 24 Hr 2,000 mg PO BEDTIME 30 Days Qty: 120 0RF sertraline 50 mg Tablet 50 mg PO DAILY 30 Days Qty: 30 0RF multivitamin [Daily-Tanika] Tablet 1 tab PO DAILY Qty: 0 0RF trazodone 50 mg Tablet 50 mg PO BEDTIME PRN (Reason: Insomnia) 30 Days Qty: 30 0RF atorvastatin 80 mg tablet 80 mg PO BEDTIME 30 Days Qty: 30 0RF lisinopril 20 mg tablet 20 mg PO DAILY 30 Days Qty: 30 0RF melatonin 3 mg tablet 9 mg PO BEDTIME 30 Days Qty: 90 0RF metformin 500 mg tablet extended release 24 hr 1,000 mg PO BID 30 Days Qty: 120 0RF ipratropium-albuterol 0.5 mg-3 mg(2.5 mg base)/3 mL Solution For Nebulization 3 ml INHALATION Q6H PRN (Reason: Shortness Of Breath) tamsulosin 0.4 mg Capsule 0.4 mg PO BEDTIME Qty: 30 0RF Discharge Orders: Discharge Order (Routine); Ordered 05/07/23 Ordered By: Carol Menchaca Diet: Advance to usual diet Activity on Discharge: As tolerated Stand Alone Forms: Patient Portal Discharge page Care Plan Goals: complete resolution of symptoms Health Concerns: UTI urinary retension Plan of Treatment: Take all medications as prescribed Follow up with your primary care provider as needed Assessment: See discharge summary
--- NOTE | 2023-05-07 11:37 | MHC.CM.PN ---
Addendum entered by Marah Lopez RN 05/07/23 14:01: CLARIFICATION PT RETURNING TO [facility] Original Note: PT MEDICALLY CLEARED TO D/C BACK TO [facility] TO CONT HIS STR, SISTER/HCP GIOVANNA CONTACTED AT NUMBER ON FILE AND CM SPOKE W/GIOVANNA'S WHO REPORTS THEY ARE AGREEABLE TO D/C BACK TO [facility] FOR TRANSPORT.
[2023-05-07 11:53] VITALS: BP 144/80; PULSE 57; RESP 20; TEMP 36.9; O2SAT 97
--- NOTE | 2023-05-07 14:08 | PC.NURSE ---
Rn to RN report given to Sirisha at [facility] @ 14:09.
== END 2023-05-07 14:55 | disposition skilled nursing facility (03) ==
LOC: HO.ED 15:51 → HO.EDOVER 20:03 → HO.S3 20:33 → HO.IMC 21:48
PROVIDERS: Admitting Provider Internal Medicine; Emergency Provider Student in an Organized Health Care Education/Training Program; PCP Internal Medicine; Visit Provider Nurse Practitioner Acute Care
DX: N39.0 Urinary tract infection, site not specified (principal); E87.20 Acidosis, unspecified; U09.9 Post COVID-19 condition, unspecified; R33.9 Retention of urine, unspecified; N39.41 Urge incontinence; R10.30 Lower abdominal pain, unspecified; I10 Essential (primary) hypertension; E11.9 Type 2 diabetes mellitus without complications; R41.9 Unspecified symptoms and signs involving cognitive functions and awareness; F84.0 Autistic disorder; Z20.822 Contact with and (suspected) exposure to COVID-19
CPT/HCPCS: 36415; 71046; 80048; 80076; 81001; 82140; 82947; 83605; 83690; 85025; 87040; 87086; 87635; 96361; 96365; 96366; 96372; 97162; 99222; 99285; J0696; J1650

== ENCOUNTER → 2023-05-05 19:55 | Outpatient (BNV) | payer MEDICARE, MEDICAID, SELFPAY | PROVIDERS: Admitting Provider Internal Medicine; Emergency Provider Student in an Organized Health Care Education/Training Program; Visit Provider Internal Medicine | DX: N39.0 Urinary tract infection, site not specified (principal); E87.20 Acidosis, unspecified; U07.1 COVID-19 | CPT/HCPCS: 99232; 99239 ==

== ENCOUNTER 2024-10-14 18:07 | Inpatient (IN) | payer MEDICARE, MEDICAID, SELFPAY ==
--- NOTE | ~2024-10-14 | CT_ITS ---
EXAMINATION: CT CERVICAL SPINE WITHOUT CONTRAST CLINICAL INFORMATION: Status post fall. COMPARISON: January 12, 2025 reported as negative for acute findings. TECHNIQUE: Contiguous axial images through the cervical spine using 2 mm with bone and soft tissue algorithm. Sagittal and coronal reformatted images acquired. This CT examination was performed using dose optimization techniques as appropriate, variously including the following: *Automated exposure control *Adjustment of mA and/or kV according to patient size (this includes techniques or standardized protocols for targeted exams where dose is matched to indication/reason for exam; i.e. extremities or head) *Use of iterative reconstruction technique DLP: 407 mGy centimeter. FINDINGS: Craniocervical junction is intact. Multilevel marginal osteophyte formation and endplate irregularity sclerosis decreased intervertebral disc height C3 T1. Incomplete ankylosis C6-7 and to a lesser extent C5-6. Chondrocalcinosis at C5-6 and C6-7 levels. Vacuum phenomenon at C3-4. Multilevel facet joint hypertrophy, C3-4 to C6-7. There is preservation of the anatomic alignment of the vertebral bodies and the facet joints. C1 is intact. C2 is intact. C3 is intact. Right-sided facet joint hypertrophy. C4 is intact. Right-sided facet joint hypertrophy. C5 is intact. C6 is intact. C7 is intact. No gross prevertebral compartment hematoma. Central spinal canal stenosis and bilateral neuroforamina narrowing from C4 to C7. CT/CT cervical spine wo IV con IMPRESSION: Multilevel cervical spondylosis without acute fracture or trauma-related listhesis. Fleischner guidelines were followed. Electronically signed by: Abe Griffin MD 01/14/2025 09:50 AM EDT
--- NOTE | ~2024-10-14 | XR_ITS ---
EXAMINATION: XR BILATERAL HIPS WITH AP PELVIS CLINICAL INFORMATION: fall COMPARISON: January 12, 2025. TECHNIQUE: AP view of the pelvis and single views of each hip were obtained. FINDINGS: No acute cortical disruption or malalignment. No lytic or blastic lesions. Bony pelvis is intact. XR/XR hip BI w PEL1V IMPRESSION: No acute fracture or dislocation. Electronically signed by: Abe Griffin MD 01/14/2025 10:35 AM EDT
--- NOTE | ~2024-10-14 | CT_ITS ---
CLINICAL HISTORY: Unwitnessed fall in bathroom CT cervical spine without contrast Comparison: None Findings: Normal vertebral body alignment. Multilevel degenerative change of the cervical spine. No acute fractures or dislocations. No acute findings on limited view of the intracranial contents. No cervical fluid collections or masses. Lung apices are clear. IMPRESSION: No acute findings. This document has been electronically signed by: Paresh Lee MD on 01/12/2025 18:27:59
--- NOTE | ~2024-10-14 | CT_ITS ---
CLINICAL HISTORY: Unwitnessed fall in bathroom CT head without contrast Comparison: None Findings: No intra-axial mass, midline shift, hydrocephalus, or acute hemorrhage. Moderate cerebral atrophy. The visualized paranasal sinuses and mastoid air cells are normal. The orbits are unremarkable. No skull fracture. IMPRESSION: 1. No acute intracranial findings. This document has been electronically signed by: Paresh Lee MD on 01/12/2025 18:28:25
--- NOTE | ~2024-10-14 | XR_ITS ---
EXAMINATION: XR HIP 2 OR MORE VIEWS BILATERAL HISTORY: Unwitnessed fall in bathroom COMPARISON: There are no prior studies for comparison. FINDINGS: Two views of each hip are submitted. Osseous mineralization is normal. There is no fracture or dislocation. The joint space is maintained. The soft tissues are unremarkable. XR/XR hips ALEJANDRO min 3V IMPRESSION: No evidence of fracture of the bilateral hips. Electronically signed by: Kaushal Soni MD 01/12/2025 01:54 PM EDT
--- NOTE | ~2024-10-14 | CT_ITS ---
EXAMINATION: CT HEAD WITHOUT CONTRAST CLINICAL INFORMATION: Fall, head injury. COMPARISON: 01/12/2025, 12/12/2022. TECHNIQUE: Contiguous axial imaging was performed from the skull base to vertex without intravenous administration of contrast. This CT examination was performed using dose optimization techniques as appropriate, variously including the following: *Automated exposure control *Adjustment of mA and/or kV according to patient size (this includes techniques or standardized protocols for targeted exams where dose is matched to indication/reason for exam; i.e. extremities or head) *Use of iterative reconstruction technique FINDINGS: There is no evidence of intracranial hemorrhage or extra-axial fluid collection. There is no mass effect, or edema. No CT evidence of acute territorial infarct. Ventricles, sulci, and cisterns are mildly diffusely prominent, in keeping with age-related cerebral and cerebellar volume loss. No hydrocephalus. No midline shift. Negative hyperdense MCA sign. Negative insular ribbon sign. Patchy periventricular and deep white matter hypoattenuation is consistent with mild small vessel ischemic changes. Normal pituitary. Mild atheromatous calcification of the bilateral carotid siphons and V4 segments vertebral arteries bilaterally. Globes and orbital contents image normally. There are bilateral lens replacements. No extracranial soft tissue abnormalities. The paranasal sinuses, mastoid air cells, and tympanic cavities are normally aerated. No suspicious bony abnormalities. There are no acute fractures evident. CT/CT head/brain wo IV con IMPRESSION: No acute intracranial abnormality. No fracture seen. Electronically signed by: Chidi Rodriguez MD 01/17/2025 01:08 PM EDT
[2024-10-14 18:09] VITALS: BP 132/87; PULSE 74; RESP 20; TEMP 36.6; O2SAT 97; BMI 27.8
--- NOTE | 2024-10-14 18:16 | ED.AMS ---
HPI - Altered Mental Status General Chief Complaint: Altered Mental Status Stated Complaint: Psychiatric Time Seen by Provider: 10/14/24 19:36 Source: patient and old records reviewed Mode of arrival: ambulatory Limitations: other (poor historian) History of Present Illness ED Provider: URIEL DE LOS SANTOS narrative: 63 yo male with PMH of autism spectrum disorder, HLD, reactive airway ds, DM who is here with recent increased fixations on for me if he will be able to use the bathroom when he needs to. He reports things are not good at home and he sometimes has thoughts of self harm or harm to others. He isn't drinking or eating well. He perseverated on making sure he could use the bathroom when he needed to - he denies abdominal pain, n/v/d, dysuria complaint: other Onset (ago): day(s) Timing confirmed by: caregiver Severity: moderate Consistency of symptoms: getting Worse Context: other (hx of similar events in the past) Associated symptoms: denies other symptoms Related Data Home Medications ?Medication ?Instructions ?Recorded ?Confirmed ipratropium 0.5 mg-albuterol 3 mg 3 ml inhalation Q6H PRN Shortness 05/05/23 05/05/23 (2.5 mg base)/3 mL nebulization Of Breath soln Previous Rx's ?Medication ?Instructions ?Recorded atorvastatin 80 mg tablet 80 mg PO BEDTIME 30 days #30 tabs 01/24/23 divalproex 500 mg tablet,extended 2,000 mg (4 x 500 mg) PO BEDTIME 01/24/23 release 24 hr 30 days #120 tabs lisinopril 20 mg tablet 20 mg PO DAILY 30 days #30 tabs 01/24/23 melatonin 3 mg tablet 9 mg (3 x 3 mg) PO BEDTIME 30 days 01/24/23 #90 tabs metformin 500 mg tablet,extended 1,000 mg (2 x 500 mg) PO BID 30 01/24/23 release 24 hr days #120 tabs mirtazapine 30 mg tablet 30 mg PO BEDTIME 30 days #30 tabs 01/24/23 multivitamin (Daily-Tanika tablet) 1 tab PO DAILY #0 tabs 01/24/23 olanzapine 10 mg tablet 10 mg PO BEDTIME 30 days #30 tabs 01/24/23 sertraline 50 mg tablet 50 mg PO DAILY 30 days #30 tabs 01/24/23 trazodone 50 mg tablet 50 mg PO BEDTIME PRN Insomnia 30 01/24/23 days #30 tabs tamsulosin 0.4 mg capsule 0.4 mg PO BEDTIME #30 caps 04/24/23 cefuroxime axetil 500 mg tablet 500 mg PO BID #4 tabs 05/07/23 Allergies Allergy/AdvReac Type Severity Reaction Status Date / Time No Known Allergies Allergy Verified 10/14/24 18:14 [No Known Allergies*] Review of Systems Review of Systems: ROS unable to be obtained due to poor historian but grossly denies any pos ROS FORMERLY [facility], [facility] Past Medical History Attestation statement: The following information was validated with the patient. Source: old records reviewed Medical History Diabetes mellitus Hypertension Neurocognitive disorder Autism spectrum disorder Social History Social History Household Members: None Housing: Apartment Do you presently have visiting nurse or other home services: Yes Alcohol intake: never Patient Tobacco Use Status: Never used Tobacco Advance Directives: Yes Advance Directives on File: Yes Advance Directives Date on File: 04/14/23 Do you have a plan to hurt others: No Plan service: No Sexual orientation: Don't Know Physical Exam ED Vital Signs: Vital Signs - 24 hr 10/14/24 18:09 Temperature 97.9 F Pulse Rate 74 Respiratory Rate 20 Blood Pressure 132/87 Pulse Oximetry 97 Oxygen Delivery Method Room Air BMI result Body Mass Index 27.8 Appearance: Alert. Oriented X3. No acute distress. Anxious Eyes: Pupils equal, round and reactive to light. ENT: Pharynx mild dry MM Neck: Normal inspection. Neck supple. CVS: Normal heart rate and rhythm. Pulses normal. Respiratory: No respiratory distress. Breath sounds normal. Abdomen: Soft and non-tender. Skin: Skin warm and dry. Normal skin color. Normal skin turgor. Extremities: No lower extremity edema. Neuro: Oriented X 3. No motor deficit. No sensory deficit. CN2-12 intact Course Course Course Narrative: This is a Rapid Medical Examination (RME) performed by Jaclyn Barraza PA-C in triage. Full HPI, ROS, assessment and treatment plan per primary provider in the Main ED. 63 yo male with history of Autism spectrum disorder, hx hypoxic injury at who presents to the ER for evaluation of confusion, poor PO intake, fixation on the past consistent with when he was psychiatrically hospitalized for 2 months last September. Staff with him report that he keeps dropping himself to the ground. He confused and fixated on the past. He thinks events that happened 3 years ago just happened now. awake, alert, reporting not feeling that good. Plan: medical clearance, CARE team consult Medical Decision Making Medical Decision Making MDM Narrative: 63 yo male with autism spectrum disorder, DM, HTN, asthma here with c/o fixated on things, poor PO intake, tells me he thinks about harming himself and then vaguely others but no plan divulged he had similar presentation in the past at this time will obtain labs and CARE team consult Differential Diagnosis Differential Diagnoses: The differential diagnosis associated with the presentation includes dehydration, decompensation, OCD Admission/Observation Consideration of admission/observation: Escalation of care including admission/observation considered physician observation started at 810pm pending CARE team Consult Healthcare Provider Management of the patient was discussed with: Behavioral Health Provider Lab Data [facility] Lab Attestation statement: I reviewed the patient's lab results. 10/14/24 18:38 10/14/24 18:37 Labs: Lab Results 10/14/24 10/14/24 10/14/24 Range/Units 18:37 18:38 19:16 WBC 5.7 (4.8-10.8) X10*3/uL RBC 4.88 D (4.60-5.80) X10*6/uL Hgb 14.9 D (14.0-18.0) g/dl Hct 43.3 D (42.0-52.0) % MCV 88.7 (80.0-98.0) fL MCH 30.5 (27.0-33.0) pg MCHC 34.4 (31.0-36.0) g/dl RDW 13.1 (11.0-16.0) % Plt Count 235 D (160-400) X10*3/uL MPV 9.8 (9.4-12.4) fL Immature Gran % (Auto) 0.5 H (0.0-0.4) % Neut % (Auto) 57.4 (45-73) % Lymph % (Auto) 29.8 (20-40) % Stevens % (Auto) 11.5 H (2-11) % Eos % (Auto) 0.5 (0-4) % Baso % (Auto) 0.3 (0-2) % Lymph # (Auto) 1.7 (1.2-4.9) X10*3/uL Stevens # (Auto) 0.7 (0.1-1.2) X10*3/uL Eos # (Auto) 0.0 (0.0-0.4) X10*3/uL Baso # (Auto) 0.0 (0.0-0.2) X10*3/uL Abs Immat Gran (auto) 0.03 (0.00-0.03) X10*3/uL Absolute Neuts (auto) 3.3 (2.0-8.3) x10*3/uL Absolute Nucleated RBC 0.000 (0.0-0.012) X10*3/uL Nucleated RBC % (auto) 0.0 (0.0-0.2) /100WBC Sodium 142 (135-145) mmol/L Potassium 4.1 (3.3-5.1) mmol/L Chloride 106 (96-108) mmol/L Carbon Dioxide 26 (22-29) mmol/L Anion Gap 14 (12-20) BUN 18 H (9-16) mg/dL Creatinine 1.21 (0.5-1.4) mg/dL Estim Creat Clear Calc 65.5 Estimated GFR > 60 Random Glucose 112 (60-115) mg/dL Calcium 9.6 D (8.4-10.2) mg/dL Magnesium 2.0 (1.6-2.6) mg/dL Total Bilirubin 0.2 (0.0-1.0) mg/dL Direct Bilirubin < 0.2 (0.0-0.5) mg/dL AST 24 (5-37) U/L ALT 21 (0-40) U/L Alkaline Phosphatase 58 (39-117) U/L Total Protein 7.3 (6.5-8.0) g/dL Albumin 4.5 (3.5-5.0) g/dL TSH 0.83 (0.32-4.0) uIU/mL Urine Color Yellow Urine Appearance Clear Urine pH 5.5 (5.0-9.0) Ur Specific [place] >= 1.030 H (1.005-1.025) Urine Protein Negative (Neg-Trace) mg/dL Urine Glucose (UA) >=1000 H (Negative) mg/dL Urine Ketones Trace (Negative) mg/dL Urine Blood Negative (Negative) Urine Nitrite Negative (Negative) Ur Leukocyte Esterase Negative (Negative) Urine RBC 0-2 (0-2) /HPF Urine WBC 0-5 (0-5) /HPF Ur Squamous Epith Cells 0-2 (0-2) /HPF Urine Bacteria None Seen (None Seen) Hyaline Casts 0-2 (0-2) /LPF Urine Opiates Screen (Not Detect) Ur Buprenorphine Scrn (Not Detect) ng/mL Ur Oxycodone Screen (Not Detect) ng/mL Urine Methadone Screen (Not Detect) ng/mL Urine Fentanyl Screen (Not Detect) Ur Barbiturates Screen (Not Detect) Ur Phencyclidine Scrn (Not Detect) Ur Amphetamines Screen (Not Detect) U Benzodiazepines Scrn (Not Detect) Urine Cocaine Screen (Not Detect) U Marijuana (THC) Screen (Not Detect) Ethyl Alcohol < 10 mg/dL 10/14/24 Range/Units 19:17 WBC (4.8-10.8) X10*3/uL RBC (4.60-5.80) X10*6/uL Hgb (14.0-18.0) g/dl Hct (42.0-52.0) % MCV (80.0-98.0) fL MCH (27.0-33.0) pg MCHC (31.0-36.0) g/dl RDW (11.0-16.0) % Plt Count (160-400) X10*3/uL MPV (9.4-12.4) fL Immature Gran % (Auto) (0.0-0.4) % Neut % (Auto) (45-73) % Lymph % (Auto) (20-40) % Stevens % (Auto) (2-11) % Eos % (Auto) (0-4) % Baso % (Auto) (0-2) % Lymph # (Auto) (1.2-4.9) X10*3/uL Stevens # (Auto) (0.1-1.2) X10*3/uL Eos # (Auto) (0.0-0.4) X10*3/uL Baso # (Auto) (0.0-0.2) X10*3/uL Abs Immat Gran (auto) (0.00-0.03) X10*3/uL Absolute Neuts (auto) (2.0-8.3) x10*3/uL Absolute Nucleated RBC (0.0-0.012) X10*3/uL Nucleated RBC % (auto) (0.0-0.2) /100WBC Sodium (135-145) mmol/L Potassium (3.3-5.1) mmol/L Chloride (96-108) mmol/L Carbon Dioxide (22-29) mmol/L Anion Gap (12-20) BUN (9-16) mg/dL Creatinine (0.5-1.4) mg/dL Estim Creat Clear Calc Estimated GFR Random Glucose (60-115) mg/dL Calcium (8.4-10.2) mg/dL Magnesium (1.6-2.6) mg/dL Total Bilirubin (0.0-1.0) mg/dL Direct Bilirubin (0.0-0.5) mg/dL AST (5-37) U/L ALT (0-40) U/L Alkaline Phosphatase (39-117) U/L Total Protein (6.5-8.0) g/dL Albumin (3.5-5.0) g/dL TSH (0.32-4.0) uIU/mL Urine Color Urine Appearance Urine pH (5.0-9.0) Ur Specific [place] (1.005-1.025) Urine Protein (Neg-Trace) mg/dL Urine Glucose (UA) (Negative) mg/dL Urine Ketones (Negative) mg/dL Urine Blood (Negative) Urine Nitrite (Negative) Ur Leukocyte Esterase (Negative) Urine RBC (0-2) /HPF Urine WBC (0-5) /HPF Ur Squamous Epith Cells (0-2) /HPF Urine Bacteria (None Seen) Hyaline Casts (0-2) /LPF Urine Opiates Screen Not Detected (Not Detect) Ur Buprenorphine Scrn Not Detected (Not Detect) ng/mL Ur Oxycodone Screen Not Detected (Not Detect) ng/mL Urine Methadone Screen Not Detected (Not Detect) ng/mL Urine Fentanyl Screen Not Detected (Not Detect) Ur Barbiturates Screen POSITIVE H (Not Detect) Ur Phencyclidine Scrn Not Detected (Not Detect) Ur Amphetamines Screen Not Detected (Not Detect) U Benzodiazepines Scrn Not Detected (Not Detect) Urine Cocaine Screen Not Detected (Not Detect) U Marijuana (THC) Screen Not Detected (Not Detect) Ethyl Alcohol mg/dL Independent Historian Clinical information obtained from an independent historian. History obtained from or confirmed by: Other External Record Review External record reviewed: Inpatient record Discharge Plan Discharge Clinical Impression: Acute anxiety Patient Disposition: Still a Patient Prescriptions: No Action olanzapine 10 mg Tablet 10 mg PO BEDTIME 30 Days Qty: 30 0RF mirtazapine 30 mg Tablet 30 mg PO BEDTIME 30 Days Qty: 30 0RF divalproex 500 mg Tablet Extended Release 24 Hr 2,000 mg PO BEDTIME 30 Days Qty: 120 0RF sertraline 50 mg Tablet 50 mg PO DAILY 30 Days Qty: 30 0RF multivitamin [Daily-Tanika] Tablet 1 tab PO DAILY Qty: 0 0RF trazodone 50 mg Tablet 50 mg PO BEDTIME PRN (Reason: Insomnia) 30 Days Qty: 30 0RF atorvastatin 80 mg tablet 80 mg PO BEDTIME 30 Days Qty: 30 0RF lisinopril 20 mg tablet 20 mg PO DAILY 30 Days Qty: 30 0RF melatonin 3 mg tablet 9 mg PO BEDTIME 30 Days Qty: 90 0RF metformin 500 mg tablet extended release 24 hr 1,000 mg PO BID 30 Days Qty: 120 0RF ipratropium-albuterol 0.5 mg-3 mg(2.5 mg base)/3 mL Solution For Nebulization 3 ml INHALATION Q6H PRN (Reason: Shortness Of Breath) cefuroxime axetil 500 mg tablet 500 mg PO BID Qty: 4 0RF tamsulosin 0.4 mg Capsule 0.4 mg PO BEDTIME Qty: 30 0RF Print Language: [place]
[2024-10-14 18:44] LABS: MANUAL DIFF FLAG NO
[2024-10-14 18:45] LABS: Basophils Percent Auto 0.3 % (0-2); Eosinophils Percent Auto 0.5 % (0-4); Hematocrit 43.3 % (42.0-52.0); Hemoglobin 14.9 g/dl (14.0-18.0); Imm Gran Abs Auto 0.03 X10*3/uL (0.00-0.03); Imm Gran Pct Auto 0.5 % (0.0-0.4); Lymphocytes Absolute Auto 1.7 X10*3/uL (1.2-4.9); Lymphocytes Percent Auto 29.8 % (20-40); Mean Corpuscular HGB Conc 34.4 g/dl (31.0-36.0); Mean Corpuscular Hemoglobin 30.5 pg (27.0-33.0); Mean Corpuscular Volume 88.7 fL (80.0-98.0); Mean Platelet Volume 9.8 fL (9.4-12.4); Monocytes Absolute Auto 0.7 X10*3/uL (0.1-1.2); Monocytes Percent Auto 11.5 % (2-11); Neutrophils Absolute Auto 3.3 x10*3/uL (2.0-8.3); Neutrophils Percent Auto 57.4 % (45-73); Platelet Count 235 X10*3/uL (160-400); Red Blood Count 4.88 X10*6/uL (4.60-5.80); Red Cell Distribution Width 13.1 % (11.0-16.0); White Blood Count 5.7 X10*3/uL (4.8-10.8)
[2024-10-14 19:08] LABS: Alanine Aminotransferase 21 U/L (0-40); Albumin Level 4.5 g/dL (3.5-5.0); Alkaline Phosphatase 58 U/L (39-117); Anion Gap 14 (12-20); Aspartate Amino Transferase 24 U/L (5-37); Bilirubin Direct < 0.2 mg/dL (0.0-0.5); Bilirubin Total 0.2 mg/dL (0.0-1.0); Blood Urea Nitrogen 18 mg/dL (9-16); Calcium 9.6 mg/dL (8.4-10.2); Carbon Dioxide 26 mmol/L (22-29); Chloride 106 mmol/L (96-108); Creatinine Clr Calc Pharmacy 65.5; Estimated Glomerular Filt Rate > 60; Ethanol < 10 mg/dL; Glucose Random 112 mg/dL (60-115); Potassium 4.1 mmol/L (3.3-5.1); Sodium 142 mmol/L (135-145); Total Protein 7.3 g/dL (6.5-8.0)
[2024-10-14 19:19] LABS: TSH reflex Free T4 0.83 uIU/mL (0.32-4.0)
[2024-10-14 19:25] LABS: Appearance Urine Clear; Color Urine Yellow; Glucose Urine UA >=1000 mg/dL (Negative); Leukocyte Esterase Urine Negative (Negative); Nitrite Urine Negative (Negative); PH 5.5 (5.0-9.0); Specific Gravity - Urine >= 1.030 (1.005-1.025); UMIC TRIGGER UACC YES; Urine Blood Negative (Negative); Urine Ketones Trace mg/dL (Negative); Urine Protein Negative (Neg-Trace)
[2024-10-14 19:30] LABS: Bacteria Urine None Seen (None Seen); Hyaline Casts Urine 0-2 /LPF (0-2); RBC Urine 0-2 /HPF (0-2); Squamous Epithelial Cell Urine 0-2 /HPF (0-2); WBC Urine 0-5 /HPF (0-5)
[2024-10-14 19:34] LABS: Amphetamine Screen Urine Not Detected (Not Detect); Barbiturates, Urine POSITIVE (Not Detect); Benzodiazepines Screen Urine Not Detected (Not Detect); Buprenorphine Scr Not Detected (Not Detect); Cannabinoid Screen Urine Not Detected (Not Detect); Cocaine Screen Urine Not Detected (Not Detect); Fentanyl, urine Not Detected (Not Detect); Methadone Screen, Urine Not Detected (Not Detect); Opiate Screen Urine Not Detected (Not Detect); Oxycodone Screen Urine Not Detected (Not Detect); Phencyclidine Screen Urine Not Detected (Not Detect)
--- NOTE | 2024-10-14 20:17 | PC.NURSE ---
t/w conducted person search /changeover of client which revealed no contraband or injury to client. appears in no distress, forgetful
--- NOTE | 2024-10-14 21:49 | PHA.MEDREC ---
Addendum entered by Emilia Amos RPh 10/14/24 22:36: REVIEWED BY [facility] Original Note: Pharmacy Consult ? Medication Reconciliation Pharmacy reviewed med rec done by nursing. Noticed Tamsulosin 0.4mg tab was not on the med rec but filled 08/31 for 90 days. Spoke with patient and he was not sure about that medication. The patients nurse stated Darcy in his contacts should be able to help. I called and spoke with Darcy and she confirmed that she is pretty sure the patient is taking that when I asked if he is taking Flomax. Med rec matched claims for everything else.
[2024-10-14] MEDS: Mirtazapine 30 MG TABLET PO (22:40)
[2024-10-14] MEDS: OLANZapine 10 MG TABLET PO (22:40)
[2024-10-14] MEDS: Divalproex Sodium ER 250 MG TAB.ER.24H 1250 MG PO (22:40)
[2024-10-14] MEDS: metFORMIN HCl ER 500 MG TAB.ER.24H PO (22:40)
[2024-10-14] MEDS: Primidone 50 MG TABLET PO (23:28)
[2024-10-14] MEDS: Atorvastatin Calcium 80 MG TABLET PO (23:28)
--- NOTE | 2024-10-15 | ECG_ITS ---
Test Reason : SHYAM PSYCH ADMIT Blood Pressure : / mmHG Vent. Rate : 080 BPM Atrial Rate : 080 BPM P-R Int : 126 ms QRS Dur : 094 ms QT Int : 404 ms P-R-T Axes : 034 -75 042 degrees QTc Int : 465 ms Normal sinus rhythm Left axis deviation Abnormal ECG When compared with ECG of 13-APR-2023 11:49, No significant change was found Referred By: Kade Piedra Electronically Signed By:MAHAD MONTGOMERY
[2024-10-15 06:26] VITALS: BP 117/65; PULSE 81; RESP 16; TEMP 36.4; O2SAT 100
[2024-10-15 06:40] LABS: Valproate 56.4 mcg/mL (50.0-100.0)
[2024-10-15] MEDS: Sertraline HCL 50 MG TABLET PO (09:34)
[2024-10-15] MEDS: Empagliflozin 10 MG TABLET PO (09:34)
[2024-10-15] MEDS: Primidone 50 MG TABLET PO ×2 (09:34→19:59)
[2024-10-15] MEDS: lisinopriL 20 MG TABLET PO (09:34)
[2024-10-15] MEDS: metFORMIN HCl ER 500 MG TAB.ER.24H PO ×2 (09:34→19:59)
[2024-10-15] MEDS: Furosemide 20 MG TABLET PO (09:34)
--- NOTE | 2024-10-15 15:26 | PC.NURSE ---
Report given to M3 RN
[2024-10-15 16:00] VITALS: BP 122/84; PULSE 88; RESP 16; TEMP 36.6; O2SAT 98
[2024-10-15 16:31] VITALS: BMI 27.8
--- NOTE | 2024-10-15 18:19 | PC.ADMIT ---
Humza arrived via wheelchair from [facility]. He is alert, oriented x3. He was cooperative with safety check and his skin assessment is only remarkable for seborrheic keratosis across his back. Humza was sent to the ED for depression and stuff . Per care team assessment-He lives alone in an apartment and has [facility]NA for medication administration. He attends a day program a few times a week. All his caregivers have noticed he is showing signs of decompensation. He has not been caring for himself, eating or showering. He has had a significant decrease in his depakote dose due to hand tremors. He continues to have those as well as a left eyebrow tic and left side of his mouth tic as well. He spent much of our conversation talking about how much I dont like my glasses, they have scratches all over them. I hate wearing them. They make me mad . He had vague responses to urges to harm self or others, to both he responded well sometimes . He denies any visual or perceptual disturbances. He is autistic and his gaze is often over and around this nurse. He denies any sensory issues. He did shower and eat well while in the ED. He reports already getting the flu vax this season. He signed a conditional voluntary with Yaritza Valadez NP. He is on 15 minute safety checks.
[2024-10-15] MEDS: Divalproex Sodium ER 250 MG TAB.ER.24H 1250 MG PO (19:58)
[2024-10-15] MEDS: Benztropine Mesylate 0.5 MG TABLET 1 MG PO (19:59)
[2024-10-15] MEDS: Mirtazapine 30 MG TABLET PO (19:59)
[2024-10-15] MEDS: Atorvastatin Calcium 80 MG TABLET PO (19:59)
[2024-10-15] MEDS: OLANZapine 10 MG TABLET PO (19:59)
[2024-10-15 20:00] VITALS: BP 122/77; PULSE 81; TEMP 36.7; O2SAT 98
[2024-10-16 08:00] VITALS: BP 138/87; PULSE 84; RESP 16; TEMP 36.6; O2SAT 100
[2024-10-16 08:19] LABS: Estimated Average Glucose 140 mg/dL; Hemoglobin A1C 199.8247 umol/L; Hemoglobin A1c % 6.5 % (<6.0)
--- NOTE | 2024-10-16 08:29 | HO.PSYADMNOT ---
HPI Date of Service: 10/16/24 Chief Complaint: Anxiety, mood disorder, ASD Sources of Information: patient interviewed, chart reviewed and crisis/core team assessment reviewed HPI Subjective Notes: Garay Warning and Conditional Voluntary Narrative: Kathleen is a 63-year-old white, single, disabled man with history of depression, anxiety, mood disorder and developmental disorder and autism. He has been hospitalized here previously. He lives alone in [facility] with visiting nurse supervision of his medications. He was brought in by his healthcare proxy because of concerns about his showing signs of decompensation with mood instability, crying episodes, throwing himself on the floor when frustrated, not keeping up with his hygiene and eating. His Depakote was recently decreased to 1250 mg because of severe tremors and he states that it has been helpful. His Depakote level was 48. Other labs were reviewed with some renal dysfunction evident with creatinine of 1.2 and low creatinine clearance (estimated). He is additionally on Cogentin 1 mg q.h.s., Remeron 40 mg q.h.s., Zoloft 50 mg daily. For medical reasons he is on atorvastatin 80 mg, Jardiance 10 mg, Lasix 20 mg, Zestril 20 mg, metformin 1000 mg, primidone 50 mg b.i.d. and Flomax 0.4 mg daily. He also did express suicidal ideations and being tired of living prior to coming in but denies that currently. He is not a good historian and the information is mostly obtained from the crisis evaluation and report of the Healthcare proxy Past Psychiatric History: Inpt: [facility] 2022 OP: [facility] Past medication trials: remeron, cymbalta, wellbutrin, olanzapine Medical Evaluation Reviewed: Hospitalist Kandy Pending [facility] Medical History Diabetes mellitus Hypertension Neurocognitive disorder Autism spectrum disorder Family History: unknown Social History: lives along with supports from [facility]. Both parents are . He does have siblings but can not tell me how many and I believe they live in [place]. He can not tell me how far he has gone in his education. He is followed at the [facility] for his medications. Substance History: None Trauma History: unknown Diagnostics Vital Signs (24Hr): Vital Signs - 24 hr 10/15/24 16:00 10/15/24 20:00 Temperature 98 F 98.0 F Pulse Rate 88 81 Respiratory Rate 16 Blood Pressure 122/84 122/77 Pulse Oximetry 98 98 Oxygen Delivery Method Room Air Room Air BMI result Body Mass Index 27.8 Labs 10/14/24 18:38 10/14/24 18:37 Labs: Laboratory Results - last 48 hr 10/14/24 10/14/24 10/14/24 18:37 18:38 19:16 WBC 5.7 RBC 4.88 D Hgb 14.9 D Hct 43.3 D MCV 88.7 MCH 30.5 MCHC 34.4 RDW 13.1 Plt Count 235 D MPV 9.8 Immature Gran % (Auto) 0.5 H Neut % (Auto) 57.4 Lymph % (Auto) 29.8 [place] % (Auto) 11.5 H Eos % (Auto) 0.5 Baso % (Auto) 0.3 Lymph # (Auto) 1.7 [place] # (Auto) 0.7 Eos # (Auto) 0.0 Baso # (Auto) 0.0 Abs Immat Gran (auto) 0.03 Absolute Neuts (auto) 3.3 Absolute Nucleated RBC 0.000 Nucleated RBC % (auto) 0.0 Sodium 142 Potassium 4.1 Chloride 106 Carbon Dioxide 26 Anion Gap 14 BUN 18 H Creatinine 1.21 Estim Creat Clear Calc 65.5 Estimated GFR > 60 Random Glucose 112 Estimat Average Glucose Hemoglobin A1c % Calcium 9.6 D Magnesium 2.0 Total Bilirubin 0.2 Direct Bilirubin < 0.2 AST 24 ALT 21 Alkaline Phosphatase 58 Total Protein 7.3 Albumin 4.5 TSH 0.83 Urine Color Yellow Urine Appearance Clear Urine pH 5.5 Ur Specific Meherrin >= 1.030 H Urine Protein Negative Urine Glucose (UA) >=1000 H Urine Ketones Trace Urine Blood Negative Urine Nitrite Negative Ur Leukocyte Esterase Negative Urine RBC 0-2 Urine WBC 0-5 Ur Squamous Epith Cells 0-2 Urine Bacteria None Seen Hyaline Casts 0-2 Urine Opiates Screen Ur Buprenorphine Scrn Ur Oxycodone Screen Urine Methadone Screen Urine Fentanyl Screen Ur Barbiturates Screen Valproic Acid Ur Phencyclidine Scrn Ur Amphetamines Screen U Benzodiazepines Scrn Urine Cocaine Screen U Marijuana (THC) Screen Ethyl Alcohol < 10 10/14/24 10/15/24 10/16/24 19:17 06:12 07:58 WBC RBC Hgb Hct MCV MCH MCHC RDW Plt Count MPV Immature Gran % (Auto) Neut % (Auto) Lymph % (Auto) [place] % (Auto) Eos % (Auto) Baso % (Auto) Lymph # (Auto) [place] # (Auto) Eos # (Auto) Baso # (Auto) Abs Immat Gran (auto) Absolute Neuts (auto) Absolute Nucleated RBC Nucleated RBC % (auto) Sodium Potassium Chloride Carbon Dioxide Anion Gap BUN Creatinine Estim Creat Clear Calc Estimated GFR Random Glucose Estimat Average Glucose 140 Hemoglobin A1c % 6.5 H Calcium Magnesium Total Bilirubin Direct Bilirubin AST ALT Alkaline Phosphatase Total Protein Albumin TSH Urine Color Urine Appearance Urine pH Ur Specific Meherrin Urine Protein Urine Glucose (UA) Urine Ketones Urine Blood Urine Nitrite Ur Leukocyte Esterase Urine RBC Urine WBC Ur Squamous Epith Cells Urine Bacteria Hyaline Casts Urine Opiates Screen Not Detected Ur Buprenorphine Scrn Not Detected Ur Oxycodone Screen Not Detected Urine Methadone Screen Not Detected Urine Fentanyl Screen Not Detected Ur Barbiturates Screen POSITIVE H Valproic Acid 56.4 Ur Phencyclidine Scrn Not Detected Ur Amphetamines Screen Not Detected U Benzodiazepines Scrn Not Detected Urine Cocaine Screen Not Detected U Marijuana (THC) Screen Not Detected Ethyl Alcohol Meds/Allergies Meds Home Medications ?Medication ?Instructions ?Recorded ?Confirmed ?Type benztropine 1 mg tablet 1 mg PO BEDTIME 10/14/24 10/14/24 History divalproex 250 mg tablet,delayed 250 mg PO BEDTIME 10/14/24 10/14/24 History release divalproex 500 mg tablet,extended 500 mg PO BEDTIME 10/14/24 10/14/24 History release 24 hr empagliflozin 10 mg tablet 10 mg PO DAILY 10/14/24 10/14/24 History (Jardiance) furosemide 20 mg tablet 20 mg PO DAILY 10/14/24 10/14/24 History metformin 500 mg tablet,extended 500 mg PO BID 10/14/24 10/14/24 History release 24 hr primidone 50 mg tablet 50 mg PO BID 10/14/24 10/14/24 History tamsulosin 0.4 mg capsule 0.4 mg PO DAILY 10/14/24 10/14/24 History Allergies Allergies Allergy/AdvReac Type Severity Reaction Status Date / Time No Known Allergies Allergy Verified 10/14/24 18:14 [No Known Allergies*] Mental Status Exam Mental Status Exam Narrative: Warrants was seen for his admission today. He is alert, oriented to place and person. Speech is normal. Good eye contact. Affect is appropriate and varied. No acute signs of psychosis. He does have history of auditory hallucinations. He currently denies any suicidal ideations and denies any attempts. Cognitively he is impaired. No homicidal ideations. Judgment is marginal. He is able to move all limbs. No abnormalities of gait observed. Assessment & Plan Assessment & Plan (1) Mood disorder: Status: Acute Code(s): F39 - Unspecified mood [affective] disorder Plan Humza was admitted for safety and stabilization. His presentation is very similar to his last admission psychiatrically about a year ago and that is why his caregivers wanted to get ahead of things before he decompensated further. Current medications were reviewed and maintained. Contacts to be made with his treaters next week. Patient educated on: diagnosis and medication risk/benefits Reason for continued inpatient stay Substantial Risk for: harm to self and rapid decompensation Statement Statement: I have reviewed the history and physical and performed a pertinent examination on my patient. No changes have occurred unless specified. If the History and Physical was not performed prior to admission, the Hospitalist's service will be consulted for completing the admission physical. Time Spent With Patient Time: Total time managing care of this patient today _45___ minutes.
[2024-10-16 08:31] LABS: Cholesterol 157 mg/dL (<200); HDL Cholesterol 47 mg/dL (>40); LDL Cholesterol Calculated 84 mg/dL (<100); Triglycerides 134 mg/dL (<150)
[2024-10-16] MEDS: Sertraline HCL 50 MG TABLET PO (08:44)
[2024-10-16 08:45] VITALS: BP 138/87
[2024-10-16 08:45] LABS: Free T4 (Free Thyroxine) 1.21 ng/dL (0.71-1.85)
[2024-10-16] MEDS: metFORMIN HCl ER 500 MG TAB.ER.24H PO ×2 (08:45→21:13)
[2024-10-16] MEDS: Primidone 50 MG TABLET PO ×2 (08:45→21:13)
[2024-10-16] MEDS: Furosemide 20 MG TABLET PO (08:45)
[2024-10-16] MEDS: Tamsulosin HCL 0.4 MG CAPSULE PO (08:45)
[2024-10-16 08:46] VITALS: BP 138/87
[2024-10-16] MEDS: lisinopriL 20 MG TABLET PO (08:46)
[2024-10-16] MEDS: Empagliflozin 10 MG TABLET PO (08:48)
[2024-10-16 08:59] LABS: Folate 15.9 ng/mL (> or = 4.0); Vitamin B12 1027 pg/mL (200-900)
[2024-10-16] MEDS: hydrOXYzine HCL 25 MG TABLET PO (12:59)
[2024-10-16 20:00] VITALS: BP 133/84; PULSE 93; O2SAT 98
[2024-10-16] MEDS: Atorvastatin Calcium 80 MG TABLET PO (21:13)
[2024-10-16] MEDS: Mirtazapine 30 MG TABLET PO (21:13)
[2024-10-16] MEDS: Divalproex Sodium ER 250 MG TAB.ER.24H 1250 MG PO (21:13)
[2024-10-16] MEDS: OLANZapine 10 MG TABLET PO (21:13)
[2024-10-16] MEDS: Benztropine Mesylate 0.5 MG TABLET 1 MG PO (21:13)
[2024-10-17] MEDS: Primidone 50 MG TABLET PO ×2 (09:00→22:09)
[2024-10-17] MEDS: metFORMIN HCl ER 500 MG TAB.ER.24H PO ×2 (09:01→22:09)
[2024-10-17] MEDS: Tamsulosin HCL 0.4 MG CAPSULE PO (09:01)
[2024-10-17] MEDS: Empagliflozin 10 MG TABLET PO (09:02)
[2024-10-17 09:14] VITALS: BP 126/86; PULSE 92; TEMP 36.6; O2SAT 100
[2024-10-17 09:16] VITALS: BP 126/86
[2024-10-17] MEDS: Furosemide 20 MG TABLET PO (09:16)
[2024-10-17] MEDS: lisinopriL 20 MG TABLET PO (09:16)
--- NOTE | 2024-10-17 09:22 | P.PNPSI_ITS ---
Subjective Subjective Date of Service: 10/17/24 Reason For Visit: Anxiety, mood disorder, ASD Interim History: Patient was seen and discussed in rounds today. Records and plans were reviewed. He has settled in to the unit well. He is med compliant. Eating and sleeping adequately. No more incidence of having a bowel movement in his pants after yesterday. He is interactive and social. No changes were made today Review of Systems Review of Systems Yes all other systems are reviewed and are negative Mental Status Exam Mental Status Exam Narrative: In today's visit he is alert x2. Normal speech. Moderate eye contact. Affect is appropriate and varied. No acute signs of psychosis. Denies AVH. He has not been tearful. Able to move all limbs. No abnormalities of gait. No SI. No delusions. Cognitively does not have any gross abnormalities. Judgment is marginally intact Diagnostics Vital Signs (24Hr): Vital Signs - 24 hr 10/16/24 20:00 10/17/24 09:14 10/17/24 09:16 Temperature 97.8 F Pulse Rate 93 92 Blood Pressure 133/84 126/86 126/86 Pulse Oximetry 98 100 Oxygen Delivery Method Room Air Room Air 10/17/24 09:16 Temperature Pulse Rate Blood Pressure 126/86 Pulse Oximetry Oxygen Delivery Method BMI result Body Mass Index 27.8 Labs 10/14/24 18:38 10/14/24 18:37 Labs: Laboratory Results - last 48 hr 10/16/24 07:58 Estimat Average Glucose 140 Hemoglobin A1c % 6.5 H Magnesium 2.0 Triglycerides 134 Cholesterol 157 LDL Cholesterol, Calc 84 HDL Cholesterol 47 Vitamin B12 1027 H Folate 15.9 TSH 0.90 Free T4 1.21 Medications Medications Current Medications Acetaminophen (Acetaminophen 325 Mg Tablet) 650 mg PO Q6H PRN PRN Reason: Headache/Pain Mild Scale (1-3) Al Hydroxide/Mg Hydroxide (Magnesium Hydrox/Alum Hydrox 30 Ml Oral.Susp) 30 ml PO Q6H PRN PRN Reason: Heartburn/Nausea Atorvastatin Calcium (Atorvastatin Calcium 80 Mg Tablet) 80 mg PO BEDTIME [facility] Last Admin: 10/16/24 21:13 Dose: 80 mg Benztropine Mesylate (Benztropine Mesylate 0.5 Mg Tablet) 1 mg PO BEDTIME [facility] Last Admin: 10/16/24 21:13 Dose: 1 mg Divalproex Sodium (Divalproex Sodium Er 250 Mg Tab.Er.24h) 1,250 mg PO BEDTIME [facility] Last Admin: 10/16/24 21:13 Dose: 1,250 mg Empagliflozin (Empagliflozin 10 Mg Tablet) 10 mg PO DAILY [facility] Last Admin: 10/17/24 09:02 Dose: 10 mg Furosemide (Furosemide 20 Mg Tablet) 20 mg PO DAILY [facility]; Protocol Last Admin: 10/17/24 09:16 Dose: 20 mg Hydroxyzine HCl (Hydroxyzine Hcl 25 Mg Tablet) 25 mg PO Q6H PRN PRN Reason: Anxiety Last Admin: 10/16/24 12:59 Dose: 25 mg Lisinopril (Lisinopril 20 Mg Tablet) 20 mg PO DAILY [facility]; Protocol Last Admin: 10/17/24 09:16 Dose: 20 mg Magnesium Hydroxide (Milk Of Magnesia 30 Ml Oral.Susp) 30 ml PO DAILY PRN PRN Reason: Constipation Metformin HCl (Metformin Hcl Er 500 Mg Tab.Er.24h) 500 mg PO BID [facility] Last Admin: 10/17/24 09:01 Dose: 500 mg Mirtazapine (Mirtazapine 30 Mg Tablet) 30 mg PO BEDTIME [facility] Last Admin: 10/16/24 21:13 Dose: 30 mg Nicotine (Nicotine 21 Mg Patch.Td24) 21 mg TRANSDERMA DAILY PRN PRN Reason: nicotine cravings Nicotine Polacrilex (Nicotine Polacrilex 2 Mg Gum) 4 mg BUCCAL Q2H PRN PRN Reason: Nicotine Cravings Olanzapine (Olanzapine 10 Mg Tablet) 10 mg PO BEDTIME [facility] Last Admin: 10/16/24 21:13 Dose: 10 mg Olanzapine (Olanzapine 5 Mg Tablet) 5 mg PO Q4H PRN PRN Reason: agitation Primidone (Primidone 50 Mg Tablet) 50 mg PO BID [facility] Last Admin: 10/17/24 09:00 Dose: 50 mg Sertraline HCl (Sertraline Hcl 50 Mg Tablet) 50 mg PO DAILY [facility] Last Admin: 10/16/24 08:44 Dose: 50 mg Tamsulosin HCl (Tamsulosin Hcl 0.4 Mg Capsule) 0.4 mg PO DAILY [facility] Last Admin: 10/17/24 09:01 Dose: 0.4 mg Trazodone HCl (Trazodone Hcl 50 Mg Tablet) 50 mg PO BEDTIME MRX1 PRN PRN Reason: Insomnia Allergies Allergies Allergy/AdvReac Type Severity Reaction Status Date / Time No Known Allergies Allergy Verified 10/14/24 18:14 [No Known Allergies*] Assessment & Plan Assessment & Plan (1) Mood disorder: Status: Acute Code(s): F39 - Unspecified mood [affective] disorder Plan Humza was admitted for safety and stabilization. His presentation is very similar to his last admission psychiatrically about a year ago and that is why his caregivers wanted to get ahead of things before he decompensated further. Current medications were reviewed and maintained. Contacts to be made with his treaters next week. 10/17: Continue current regimen and plans Reason for continued inpatient stay Substantial Risk for: med/psych decompensation Time Spent With Patient Time: Total time managing care of this patient today ____ minutes.
[2024-10-17] MEDS: Sertraline HCL 50 MG TABLET PO (12:11)
[2024-10-17] MEDS: hydrOXYzine HCL 25 MG TABLET PO (13:34)
[2024-10-17 19:55] VITALS: BP 121/69; PULSE 102; RESP 16; TEMP 36.9; O2SAT 97
[2024-10-17] MEDS: Divalproex Sodium ER 250 MG TAB.ER.24H 1250 MG PO (22:05)
[2024-10-17] MEDS: Mirtazapine 30 MG TABLET PO (22:08)
[2024-10-17] MEDS: Atorvastatin Calcium 80 MG TABLET PO (22:09)
[2024-10-17] MEDS: Benztropine Mesylate 0.5 MG TABLET 1 MG PO (22:10)
[2024-10-17] MEDS: OLANZapine 10 MG TABLET PO (22:10)
[2024-10-18 08:00] VITALS: BP 125/65; PULSE 88; RESP 16; TEMP 36.4; O2SAT 100
[2024-10-18] MEDS: metFORMIN HCl ER 500 MG TAB.ER.24H PO ×2 (09:01→20:22)
[2024-10-18] MEDS: Tamsulosin HCL 0.4 MG CAPSULE PO (09:01)
[2024-10-18] MEDS: Primidone 50 MG TABLET PO ×2 (09:01→20:22)
[2024-10-18 09:02] VITALS: BP 125/75
[2024-10-18] MEDS: lisinopriL 20 MG TABLET PO (09:02)
[2024-10-18] MEDS: Sertraline HCL 50 MG TABLET PO (09:02)
[2024-10-18 09:03] VITALS: BP 125/65
[2024-10-18] MEDS: Furosemide 20 MG TABLET PO (09:03)
[2024-10-18] MEDS: Empagliflozin 10 MG TABLET PO (09:08)
--- NOTE | 2024-10-18 09:57 | P.PNPSI_ITS ---
Subjective Subjective Date of Service: 10/18/24 Reason For Visit: Anxiety, mood disorder, ASD Subjective Notes: Conditional Voluntary Healthcare Proxy: No Guardianship: No Medical Problems Affecting Mental Status: No Interim History: Pt presents with confusion, is a poor historian and reports memory is bad . States depression is present, and a little anxiety . Denies pain. Spoke with HCP Darcy [phone]. Pt has not been eating- Hx 36-38 waist pant, now 33. Weight 200-182. Attends [employer] day program 3 days per week. Sx present now similiar to 2022 when he spent 8 weeks in pt-always the same time of year, September, before his birthday. Sx of depression, repetitive feedback, not feeling good, not eating, low weight, increase agitation and aggression. Depakote is being tapered slowly to decrease tremor which is mild, but present today. Pt tells Darcy he is feeling lost, is lethargic, tired of living, has confusion, is not feeling good, is not able to think clearly, raises fists at times, stating he cannot take it. Medication Compliance: Yes Side effects from medications: Yes (?) Attending Groups: No Review of Systems Acute medical concerns: No Review of Systems Review of Systems Yes Unobtainable due to mental status Mental Status Exam Mental Status Exam Patient Appearance: Fatigued Patient Orientation: Person and Place Level of Consciousness: Alert Patient Behavior: Talkative and Confused Mood Description: Blunted Affect Description: Blunted Patient Cognition Impaired: Yes Ability to Follow Directions: Fair Speech Pattern: Spontaneous Speech, Delayed and Long Pauses Memory Description: Remote Impaired, Immediate Impaired and Recent Impaired Hallucinations: None Delusions: Present Perceptual Disturbances: Derealization Thought Process: Rumination Thought Content: positive for Circumstantial, positive for Perseveration, positive for Preoccupation and positive for Slowed Thinking Depressive Symptoms: Diff. Making Decisions, Changes in Appetite, Significant Weight Loss, Loss of Int. in Activity, Isolating-Friends/Family, Unhappiness, Increased Fatigue, Loss of Energy and Difficulty Concentrating Judgement: Poor Diagnostics Vital Signs (24Hr): Vital Signs - 24 hr 10/17/24 19:55 10/18/24 08:00 10/18/24 09:02 Temperature 98.4 F 97.6 F Pulse Rate 102 H 88 Respiratory Rate 16 16 Blood Pressure 121/69 125/65 125/75 Pulse Oximetry 97 100 Oxygen Delivery Method Room Air 10/18/24 09:03 Temperature Pulse Rate Respiratory Rate Blood Pressure 125/65 Pulse Oximetry Oxygen Delivery Method BMI result Body Mass Index 27.8 Labs 10/14/24 18:38 10/14/24 18:37 Medications Medications Current Medications Acetaminophen (Acetaminophen 325 Mg Tablet) 650 mg PO Q6H PRN PRN Reason: Headache/Pain Mild Scale (1-3) Al Hydroxide/Mg Hydroxide (Magnesium Hydrox/Alum Hydrox 30 Ml Oral.Susp) 30 ml PO Q6H PRN PRN Reason: Heartburn/Nausea Atorvastatin Calcium (Atorvastatin Calcium 80 Mg Tablet) 80 mg PO BEDTIME [facility] Last Admin: 10/17/24 22:09 Dose: 80 mg Benztropine Mesylate (Benztropine Mesylate 0.5 Mg Tablet) 1 mg PO BEDTIME [facility] Last Admin: 10/17/24 22:10 Dose: 1 mg Divalproex Sodium (Divalproex Sodium Er 250 Mg Tab.Er.24h) 1,250 mg PO BEDTIME [facility] Last Admin: 10/17/24 22:05 Dose: 1,250 mg Empagliflozin (Empagliflozin 10 Mg Tablet) 10 mg PO DAILY [facility] Last Admin: 10/18/24 09:08 Dose: 10 mg Furosemide (Furosemide 20 Mg Tablet) 20 mg PO DAILY [facility]; Protocol Last Admin: 10/18/24 09:03 Dose: 20 mg Hydroxyzine HCl (Hydroxyzine Hcl 25 Mg Tablet) 25 mg PO Q6H PRN PRN Reason: Anxiety Last Admin: 10/17/24 13:34 Dose: 25 mg Lisinopril (Lisinopril 20 Mg Tablet) 20 mg PO DAILY [facility]; Protocol Last Admin: 10/18/24 09:02 Dose: 20 mg Magnesium Hydroxide (Milk Of Magnesia 30 Ml Oral.Susp) 30 ml PO DAILY PRN PRN Reason: Constipation Metformin HCl (Metformin Hcl Er 500 Mg Tab.Er.24h) 500 mg PO BID [facility] Last Admin: 10/18/24 09:01 Dose: 500 mg Mirtazapine (Mirtazapine 30 Mg Tablet) 30 mg PO BEDTIME [facility] Last Admin: 10/17/24 22:08 Dose: 30 mg Nicotine (Nicotine 21 Mg Patch.Td24) 21 mg TRANSDERMA DAILY PRN PRN Reason: nicotine cravings Nicotine Polacrilex (Nicotine Polacrilex 2 Mg Gum) 4 mg BUCCAL Q2H PRN PRN Reason: Nicotine Cravings Olanzapine (Olanzapine 10 Mg Tablet) 10 mg PO BEDTIME [facility] Last Admin: 10/17/24 22:10 Dose: 10 mg Olanzapine (Olanzapine 5 Mg Tablet) 5 mg PO Q4H PRN PRN Reason: agitation Primidone (Primidone 50 Mg Tablet) 50 mg PO BID [facility] Last Admin: 10/18/24 09:01 Dose: 50 mg Sertraline HCl (Sertraline Hcl 50 Mg Tablet) 50 mg PO DAILY [facility] Last Admin: 10/18/24 09:02 Dose: 50 mg Tamsulosin HCl (Tamsulosin Hcl 0.4 Mg Capsule) 0.4 mg PO DAILY [facility] Last Admin: 10/18/24 09:01 Dose: 0.4 mg Trazodone HCl (Trazodone Hcl 50 Mg Tablet) 50 mg PO BEDTIME MRX1 PRN PRN Reason: Insomnia Allergies Allergies Allergy/AdvReac Type Severity Reaction Status Date / Time No Known Allergies Allergy Verified 10/14/24 18:14 [No Known Allergies*] Assessment & Plan Assessment & Plan (1) Mood disorder: Status: Acute Code(s): F39 - Unspecified mood [affective] disorder Plan Humza was admitted for safety and stabilization. His presentation is very similar to his last admission psychiatrically about a year ago and that is why his caregivers wanted to get ahead of things before he decompensated further. Current medications were reviewed and maintained. Contacts to be made with his treaters next week. 10/17: Continue current regimen and plans 10/18: Messages left with [facility] for collateral Observe Pt unable to do MOCA today Reason for continued inpatient stay Substantial Risk for: rapid decompensation and med/psych decompensation Time Spent With Patient Time: Total time managing care of this patient today ____ minutes.
[2024-10-18 20:00] VITALS: BP 115/83; PULSE 88; TEMP 37.2; O2SAT 98
[2024-10-18] MEDS: Divalproex Sodium ER 250 MG TAB.ER.24H 1250 MG PO (20:22)
[2024-10-18] MEDS: Mirtazapine 30 MG TABLET PO (20:22)
[2024-10-18] MEDS: Benztropine Mesylate 0.5 MG TABLET 1 MG PO (20:22)
[2024-10-18] MEDS: Atorvastatin Calcium 80 MG TABLET PO (20:22)
[2024-10-18] MEDS: OLANZapine 10 MG TABLET PO (20:22)
[2024-10-19 08:00] VITALS: BP 140/93; PULSE 87; TEMP 36.9; O2SAT 99
[2024-10-19 08:41] VITALS: BP 140/93
[2024-10-19] MEDS: Furosemide 20 MG TABLET PO (08:41)
[2024-10-19] MEDS: Primidone 50 MG TABLET PO ×2 (08:41→21:36)
[2024-10-19] MEDS: metFORMIN HCl ER 500 MG TAB.ER.24H PO ×2 (08:42→21:35)
[2024-10-19] MEDS: Tamsulosin HCL 0.4 MG CAPSULE PO (08:42)
[2024-10-19] MEDS: Empagliflozin 10 MG TABLET PO (08:42)
[2024-10-19 08:43] VITALS: BP 140/93
[2024-10-19] MEDS: lisinopriL 20 MG TABLET PO (08:43)
[2024-10-19] MEDS: Sertraline HCL 50 MG TABLET PO (08:43)
--- NOTE | 2024-10-19 13:11 | P.PNPSI_ITS ---
Subjective Subjective Date of Service: 10/19/24 Reason For Visit: Anxiety, mood disorder, ASD Subjective Notes: Conditional Voluntary Healthcare Proxy: No Guardianship: No Medical Problems Affecting Mental Status: No Interim History: Visable in milieu Remains with confusion at times. Minimally attentive to surroundings. Minimally interactive. Passive SI Denies AH,VH. HI. ?appears to respond to internal stimuli at times. Medication Compliance: Yes Side effects from medications: No Attending Groups: Intermittent Review of Systems Acute medical concerns: No Medical Review of Systems: unchanged Review of Systems Review of Systems Yes Unobtainable due to mental status Mental Status Exam Mental Status Exam Patient Appearance: Fatigued Patient Orientation: Person and Place Level of Consciousness: Alert Patient Behavior: Talkative and Confused Mood Description: Blunted Affect Description: Blunted Patient Cognition Impaired: Yes Ability to Follow Directions: Fair Speech Pattern: Spontaneous Speech, Delayed and Long Pauses Memory Description: Remote Impaired, Immediate Impaired and Recent Impaired Hallucinations: None Delusions: Present Perceptual Disturbances: Derealization Thought Process: Rumination Thought Content: positive for Circumstantial, positive for Perseveration, positive for Preoccupation and positive for Slowed Thinking Depressive Symptoms: Diff. Making Decisions, Changes in Appetite, Significant Weight Loss, Loss of Int. in Activity, Isolating-Friends/Family, Unhappiness, Increased Fatigue, Loss of Energy and Difficulty Concentrating Judgement: Poor Diagnostics Vital Signs (24Hr): Vital Signs - 24 hr 10/18/24 20:00 10/19/24 08:00 10/19/24 08:41 Temperature 98.9 F 98.4 F Pulse Rate 88 87 Blood Pressure 115/83 140/93 H 140/93 H Pulse Oximetry 98 99 Oxygen Delivery Method Room Air Room Air 10/19/24 08:43 Temperature Pulse Rate Blood Pressure 140/93 H Pulse Oximetry Oxygen Delivery Method BMI result Body Mass Index 27.8 Labs 10/14/24 18:38 10/14/24 18:37 Medications Medications Current Medications Acetaminophen (Acetaminophen 325 Mg Tablet) 650 mg PO Q6H PRN PRN Reason: Headache/Pain Mild Scale (1-3) Al Hydroxide/Mg Hydroxide (Magnesium Hydrox/Alum Hydrox 30 Ml Oral.Susp) 30 ml PO Q6H PRN PRN Reason: Heartburn/Nausea Atorvastatin Calcium (Atorvastatin Calcium 80 Mg Tablet) 80 mg PO BEDTIME [facility] Last Admin: 10/18/24 20:22 Dose: 80 mg Benztropine Mesylate (Benztropine Mesylate 0.5 Mg Tablet) 1 mg PO BEDTIME [facility] Last Admin: 10/18/24 20:22 Dose: 1 mg Divalproex Sodium (Divalproex Sodium Er 250 Mg Tab.Er.24h) 1,250 mg PO BEDTIME [facility] Last Admin: 10/18/24 20:22 Dose: 1,250 mg Empagliflozin (Empagliflozin 10 Mg Tablet) 10 mg PO DAILY [facility] Last Admin: 10/19/24 08:42 Dose: 10 mg Furosemide (Furosemide 20 Mg Tablet) 20 mg PO DAILY [facility]; Protocol Last Admin: 10/19/24 08:41 Dose: 20 mg Hydroxyzine HCl (Hydroxyzine Hcl 25 Mg Tablet) 25 mg PO Q6H PRN PRN Reason: Anxiety Last Admin: 10/17/24 13:34 Dose: 25 mg Lisinopril (Lisinopril 20 Mg Tablet) 20 mg PO DAILY [facility]; Protocol Last Admin: 10/19/24 08:43 Dose: 20 mg Magnesium Hydroxide (Milk Of Magnesia 30 Ml Oral.Susp) 30 ml PO DAILY PRN PRN Reason: Constipation Metformin HCl (Metformin Hcl Er 500 Mg Tab.Er.24h) 500 mg PO BID [facility] Last Admin: 10/19/24 08:42 Dose: 500 mg Mirtazapine (Mirtazapine 30 Mg Tablet) 30 mg PO BEDTIME [facility] Last Admin: 10/18/24 20:22 Dose: 30 mg Nicotine (Nicotine 21 Mg Patch.Td24) 21 mg TRANSDERMA DAILY PRN PRN Reason: nicotine cravings Nicotine Polacrilex (Nicotine Polacrilex 2 Mg Gum) 4 mg BUCCAL Q2H PRN PRN Reason: Nicotine Cravings Olanzapine (Olanzapine 10 Mg Tablet) 10 mg PO BEDTIME [facility] Last Admin: 10/18/24 20:22 Dose: 10 mg Olanzapine (Olanzapine 5 Mg Tablet) 5 mg PO Q4H PRN PRN Reason: agitation Primidone (Primidone 50 Mg Tablet) 50 mg PO BID [facility] Last Admin: 10/19/24 08:41 Dose: 50 mg Sertraline HCl (Sertraline Hcl 50 Mg Tablet) 50 mg PO DAILY [facility] Last Admin: 10/19/24 08:43 Dose: 50 mg Tamsulosin HCl (Tamsulosin Hcl 0.4 Mg Capsule) 0.4 mg PO DAILY [facility] Last Admin: 10/19/24 08:42 Dose: 0.4 mg Trazodone HCl (Trazodone Hcl 50 Mg Tablet) 50 mg PO BEDTIME MRX1 PRN PRN Reason: Insomnia Allergies Allergies Allergy/AdvReac Type Severity Reaction Status Date / Time No Known Allergies Allergy Verified 10/14/24 18:14 [No Known Allergies*] Assessment & Plan Assessment & Plan (1) Mood disorder: Status: Acute Code(s): F39 - Unspecified mood [affective] disorder Plan Humza was admitted for safety and stabilization. His presentation is very similar to his last admission psychiatrically about a year ago and that is why his caregivers wanted to get ahead of things before he decompensated further. Current medications were reviewed and maintained. Contacts to be made with his treaters next week. 10/17: Continue current regimen and plans 10/19: Continue current tx plan and regime. Reason for continued inpatient stay Substantial Risk for: med/psych decompensation Time Spent With Patient Time: Total time managing care of this patient today ____ minutes.
[2024-10-19] MEDS: hydrOXYzine HCL 25 MG TABLET PO (15:35)
[2024-10-19 20:00] VITALS: BP 133/73; PULSE 82; TEMP 36.5; O2SAT 99
[2024-10-19] MEDS: OLANZapine 10 MG TABLET PO (21:35)
[2024-10-19] MEDS: Divalproex Sodium ER 250 MG TAB.ER.24H 1250 MG PO (21:35)
[2024-10-19] MEDS: Atorvastatin Calcium 80 MG TABLET PO (21:35)
[2024-10-19] MEDS: Mirtazapine 30 MG TABLET PO (21:35)
[2024-10-19] MEDS: Benztropine Mesylate 0.5 MG TABLET 1 MG PO (21:36)
--- NOTE | 2024-10-20 08:53 | HO.PSYCHPN ---
Subjective Subjective Date of Service: 10/20/24 Reason For Visit: Anxiety, mood disorder, ASD Interim History: Pt seen, reviewed with the team. Today he is in the common area. He sits alone, he does not initiate interaction, however, does respond when approached. He denies pain, he affirms not feeling well, however, but is non specific. Today, when asked if he felt depressed, I am not sure, maybe but maybe not. Memory is poor, pt is declining team when they offer ADL assistance Medication Compliance: Yes Side effects from medications: No Attending Groups: No Review of Systems Acute medical concerns: No Medical Review of Systems: unchanged Review of Systems Review of Systems Reports being unsure Mental Status Exam Mental Status Exam Patient Appearance: Fatigued Patient Orientation: Person and Place Level of Consciousness: Alert Patient Behavior: Talkative and Confused Mood Description: Blunted Affect Description: Blunted Patient Cognition Impaired: Yes Ability to Follow Directions: Fair Speech Pattern: Spontaneous Speech, Delayed and Long Pauses Memory Description: Remote Impaired, Immediate Impaired and Recent Impaired Hallucinations: None Delusions: Present Perceptual Disturbances: Derealization Thought Process: Rumination Thought Content: positive for Circumstantial, positive for Perseveration, positive for Preoccupation and positive for Slowed Thinking Depressive Symptoms: Diff. Making Decisions, Changes in Appetite, Significant Weight Loss, Loss of Int. in Activity, Isolating-Friends/Family, Unhappiness, Increased Fatigue, Loss of Energy and Difficulty Concentrating Judgement: Poor Diagnostics Vital Signs (24Hr): Vital Signs - 24 hr 10/19/24 20:00 Temperature 97.7 F Pulse Rate 82 Blood Pressure 133/73 Pulse Oximetry 99 Oxygen Delivery Method Room Air BMI result Body Mass Index 27.8 Labs 10/14/24 18:38 10/21/24 08:02 Medications Medications Current Medications Acetaminophen (Acetaminophen 325 Mg Tablet) 650 mg PO Q6H PRN PRN Reason: Headache/Pain Mild Scale (1-3) Al Hydroxide/Mg Hydroxide (Magnesium Hydrox/Alum Hydrox 30 Ml Oral.Susp) 30 ml PO Q6H PRN PRN Reason: Heartburn/Nausea Atorvastatin Calcium (Atorvastatin Calcium 80 Mg Tablet) 80 mg PO BEDTIME [facility] Last Admin: 10/19/24 21:35 Dose: 80 mg Benztropine Mesylate (Benztropine Mesylate 0.5 Mg Tablet) 1 mg PO BEDTIME [facility] Last Admin: 10/19/24 21:36 Dose: 1 mg Divalproex Sodium (Divalproex Sodium Er 250 Mg Tab.Er.24h) 1,250 mg PO BEDTIME [facility] Last Admin: 10/19/24 21:35 Dose: 1,250 mg Empagliflozin (Empagliflozin 10 Mg Tablet) 10 mg PO DAILY [facility] Last Admin: 10/19/24 08:42 Dose: 10 mg Furosemide (Furosemide 20 Mg Tablet) 20 mg PO DAILY [facility]; Protocol Last Admin: 10/19/24 08:41 Dose: 20 mg Hydroxyzine HCl (Hydroxyzine Hcl 25 Mg Tablet) 25 mg PO Q6H PRN PRN Reason: Anxiety Last Admin: 10/19/24 15:35 Dose: 25 mg Lisinopril (Lisinopril 20 Mg Tablet) 20 mg PO DAILY [facility]; Protocol Last Admin: 10/19/24 08:43 Dose: 20 mg Magnesium Hydroxide (Milk Of Magnesia 30 Ml Oral.Susp) 30 ml PO DAILY PRN PRN Reason: Constipation Metformin HCl (Metformin Hcl Er 500 Mg Tab.Er.24h) 500 mg PO BID [facility] Last Admin: 10/19/24 21:35 Dose: 500 mg Mirtazapine (Mirtazapine 30 Mg Tablet) 30 mg PO BEDTIME [facility] Last Admin: 10/19/24 21:35 Dose: 30 mg Nicotine (Nicotine 21 Mg Patch.Td24) 21 mg TRANSDERMA DAILY PRN PRN Reason: nicotine cravings Nicotine Polacrilex (Nicotine Polacrilex 2 Mg Gum) 4 mg BUCCAL Q2H PRN PRN Reason: Nicotine Cravings Olanzapine (Olanzapine 10 Mg Tablet) 10 mg PO BEDTIME [facility] Last Admin: 10/19/24 21:35 Dose: 10 mg Olanzapine (Olanzapine 5 Mg Tablet) 5 mg PO Q4H PRN PRN Reason: agitation Primidone (Primidone 50 Mg Tablet) 50 mg PO BID [facility] Last Admin: 10/19/24 21:36 Dose: 50 mg Sertraline HCl (Sertraline Hcl 50 Mg Tablet) 50 mg PO DAILY [facility] Last Admin: 10/19/24 08:43 Dose: 50 mg Tamsulosin HCl (Tamsulosin Hcl 0.4 Mg Capsule) 0.4 mg PO DAILY [facility] Last Admin: 10/19/24 08:42 Dose: 0.4 mg Trazodone HCl (Trazodone Hcl 50 Mg Tablet) 50 mg PO BEDTIME MRX1 PRN PRN Reason: Insomnia Allergies Allergies Allergy/AdvReac Type Severity Reaction Status Date / Time No Known Allergies Allergy Verified 10/14/24 18:14 [No Known Allergies*] Assessment & Plan Assessment & Plan (1) Mood disorder: Status: Acute Code(s): F39 - Unspecified mood [affective] disorder Plan Humza was admitted for safety and stabilization. His presentation is very similar to his last admission psychiatrically about a year ago and that is why his caregivers wanted to get ahead of things before he decompensated further. Current medications were reviewed and maintained. Contacts to be made with his treaters next week. 10/17: Continue current regimen and plans 10/19: Continue current tx plan and regime. 10/20: Continue current tx plan and regime. Reason for continued inpatient stay Substantial Risk for: rapid decompensation Time Spent With Patient Time: Total time managing care of this patient today ____ minutes.
[2024-10-20 09:19] VITALS: BP 132/80
[2024-10-20] MEDS: Sertraline HCL 50 MG TABLET PO (09:19)
[2024-10-20] MEDS: metFORMIN HCl ER 500 MG TAB.ER.24H PO ×2 (09:19→21:13)
[2024-10-20] MEDS: Tamsulosin HCL 0.4 MG CAPSULE PO (09:19)
[2024-10-20] MEDS: Furosemide 20 MG TABLET PO (09:19)
[2024-10-20] MEDS: Primidone 50 MG TABLET PO ×2 (09:19→21:12)
[2024-10-20 09:20] VITALS: BP 132/80
[2024-10-20] MEDS: Empagliflozin 10 MG TABLET PO (09:20)
[2024-10-20] MEDS: lisinopriL 20 MG TABLET PO (09:20)
[2024-10-20 20:00] VITALS: BP 139/88; PULSE 85; TEMP 36.8; O2SAT 99
[2024-10-20] MEDS: Benztropine Mesylate 0.5 MG TABLET 1 MG PO (21:10)
[2024-10-20] MEDS: Divalproex Sodium ER 250 MG TAB.ER.24H 1250 MG PO (21:11)
[2024-10-20] MEDS: OLANZapine 10 MG TABLET PO (21:12)
[2024-10-20] MEDS: Atorvastatin Calcium 80 MG TABLET PO (21:13)
[2024-10-21] MEDS: Mirtazapine 30 MG TABLET PO ×2 (02:05→19:59)
[2024-10-21 07:57] VITALS: BP 129/72; PULSE 73; TEMP 36.4; O2SAT 99
[2024-10-21] MEDS: Primidone 50 MG TABLET PO ×2 (08:39→19:59)
[2024-10-21] MEDS: metFORMIN HCl ER 500 MG TAB.ER.24H PO ×2 (08:39→19:58)
[2024-10-21] MEDS: Tamsulosin HCL 0.4 MG CAPSULE PO (08:39)
[2024-10-21] MEDS: Empagliflozin 10 MG TABLET PO (08:39)
[2024-10-21] MEDS: lisinopriL 20 MG TABLET PO (08:39)
[2024-10-21] MEDS: Furosemide 20 MG TABLET PO (08:39)
[2024-10-21] MEDS: Sertraline HCL 50 MG TABLET PO (08:39)
[2024-10-21 08:56] LABS: Creatinine Clr Calc Pharmacy 74.1; Estimated Glomerular Filt Rate > 60
--- NOTE | 2024-10-21 10:58 | HO.PSYCHPN ---
Subjective Subjective Date of Service: 10/21/24 Reason For Visit: Anxiety, mood disorder, ASD Healthcare Proxy: Yes Guardianship: No Medical Problems Affecting Mental Status: No Interim History: Pt reviewed with team. Last evening he acknowledged depression and anxiety to nursing along with SI, feeling he is wanting to . Memory is shifting to years ago-team discussed pts focus on past events and memories as pt seeing them as current. Pt has been unable to complete the MOCA and is appearing flat, stuck in a depressive sx mode. Medication Compliance: Yes Side effects from medications: No Attending Groups: No Review of Systems Acute medical concerns: No Review of Systems Review of Systems Yes Unobtainable due to mental status Mental Status Exam Mental Status Exam Patient Appearance: Fatigued Patient Orientation: Person and Place Level of Consciousness: Alert Patient Behavior: Talkative and Confused Mood Description: Blunted Affect Description: Blunted Patient Cognition Impaired: Yes Ability to Follow Directions: Fair Speech Pattern: Spontaneous Speech, Delayed and Long Pauses Memory Description: Remote Impaired, Immediate Impaired and Recent Impaired Hallucinations: None Delusions: Present Perceptual Disturbances: Derealization Thought Process: Rumination Thought Content: positive for Circumstantial, positive for Perseveration, positive for Preoccupation and positive for Slowed Thinking Depressive Symptoms: Diff. Making Decisions, Changes in Appetite, Significant Weight Loss, Loss of Int. in Activity, Isolating-Friends/Family, Unhappiness, Increased Fatigue, Loss of Energy and Difficulty Concentrating Judgement: Poor Diagnostics Vital Signs (24Hr): Vital Signs - 24 hr 10/20/24 20:00 10/21/24 07:57 Temperature 98.2 F 97.6 F Pulse Rate 85 73 Blood Pressure 139/88 129/72 Pulse Oximetry 99 99 Oxygen Delivery Method Room Air Room Air BMI result Body Mass Index 27.8 Labs 10/14/24 18:38 10/21/24 08:02 Labs: Laboratory Results - last 48 hr 10/21/24 08:02 Creatinine 1.07 Estim Creat Clear Calc 74.1 Estimated GFR > 60 Medications Medications Current Medications Acetaminophen (Acetaminophen 325 Mg Tablet) 650 mg PO Q6H PRN PRN Reason: Headache/Pain Mild Scale (1-3) Al Hydroxide/Mg Hydroxide (Magnesium Hydrox/Alum Hydrox 30 Ml Oral.Susp) 30 ml PO Q6H PRN PRN Reason: Heartburn/Nausea Atorvastatin Calcium (Atorvastatin Calcium 80 Mg Tablet) 80 mg PO BEDTIME [facility] Last Admin: 10/20/24 21:13 Dose: 80 mg Benztropine Mesylate (Benztropine Mesylate 0.5 Mg Tablet) 1 mg PO BEDTIME [facility] Last Admin: 10/20/24 21:10 Dose: 1 mg Divalproex Sodium (Divalproex Sodium Er 250 Mg Tab.Er.24h) 1,250 mg PO BEDTIME [facility] Last Admin: 10/20/24 21:11 Dose: 1,250 mg Empagliflozin (Empagliflozin 10 Mg Tablet) 10 mg PO DAILY [facility] Last Admin: 10/21/24 08:39 Dose: 10 mg Furosemide (Furosemide 20 Mg Tablet) 20 mg PO DAILY [facility]; Protocol Last Admin: 10/21/24 08:39 Dose: 20 mg Hydroxyzine HCl (Hydroxyzine Hcl 25 Mg Tablet) 25 mg PO Q6H PRN PRN Reason: Anxiety Last Admin: 10/19/24 15:35 Dose: 25 mg Lisinopril (Lisinopril 20 Mg Tablet) 20 mg PO DAILY [facility]; Protocol Last Admin: 10/21/24 08:39 Dose: 20 mg Magnesium Hydroxide (Milk Of Magnesia 30 Ml Oral.Susp) 30 ml PO DAILY PRN PRN Reason: Constipation Metformin HCl (Metformin Hcl Er 500 Mg Tab.Er.24h) 500 mg PO BID [facility] Last Admin: 10/21/24 08:39 Dose: 500 mg Mirtazapine (Mirtazapine 30 Mg Tablet) 30 mg PO BEDTIME [facility] Last Admin: 10/21/24 02:05 Dose: 30 mg Nicotine (Nicotine 21 Mg Patch.Td24) 21 mg TRANSDERMA DAILY PRN PRN Reason: nicotine cravings Nicotine Polacrilex (Nicotine Polacrilex 2 Mg Gum) 4 mg BUCCAL Q2H PRN PRN Reason: Nicotine Cravings Olanzapine (Olanzapine 10 Mg Tablet) 10 mg PO BEDTIME [facility] Last Admin: 10/20/24 21:12 Dose: 10 mg Olanzapine (Olanzapine 5 Mg Tablet) 5 mg PO Q4H PRN PRN Reason: agitation Primidone (Primidone 50 Mg Tablet) 50 mg PO BID [facility] Last Admin: 10/21/24 08:39 Dose: 50 mg Sertraline HCl (Sertraline Hcl 50 Mg Tablet) 50 mg PO DAILY [facility] Last Admin: 10/21/24 08:39 Dose: 50 mg Tamsulosin HCl (Tamsulosin Hcl 0.4 Mg Capsule) 0.4 mg PO DAILY [facility] Last Admin: 10/21/24 08:39 Dose: 0.4 mg Trazodone HCl (Trazodone Hcl 50 Mg Tablet) 50 mg PO BEDTIME MRX1 PRN PRN Reason: Insomnia Allergies Allergies Allergy/AdvReac Type Severity Reaction Status Date / Time No Known Allergies Allergy Verified 10/14/24 18:14 [No Known Allergies*] Assessment & Plan Assessment & Plan (1) Mood disorder: Status: Acute Code(s): F39 - Unspecified mood [affective] disorder Plan Humza was admitted for safety and stabilization. His presentation is very similar to his last admission psychiatrically about a year ago and that is why his caregivers wanted to get ahead of things before he decompensated further. Current medications were reviewed and maintained. Contacts to be made with his treaters next week. 10/17: Continue current regimen and plans 10/19: Continue current tx plan and regime. 10/21: Memantine 5 mg daily- [facility], memory sx Abilify 2 mg daily-augment to antidepressants currently being used. Reason for continued inpatient stay Substantial Risk for: rapid decompensation Time Spent With Patient Time: Total time managing care of this patient today ____ minutes.
[2024-10-21] MEDS: hydrOXYzine HCL 25 MG TABLET PO (16:55)
[2024-10-21] MEDS: OLANZapine 5 MG TABLET PO (16:55)
[2024-10-21] MEDS: Benztropine Mesylate 0.5 MG TABLET 1 MG PO (19:59)
[2024-10-21] MEDS: Atorvastatin Calcium 80 MG TABLET PO (19:59)
[2024-10-21] MEDS: OLANZapine 10 MG TABLET PO (19:59)
[2024-10-21 20:00] VITALS: BP 158/82; PULSE 86; RESP 16; TEMP 36.1; O2SAT 99
[2024-10-21] MEDS: Divalproex Sodium ER 250 MG TAB.ER.24H 1250 MG PO (20:00)
[2024-10-21] MEDS: ARIPiprazole 2 MG TABLET PO (20:00)
[2024-10-22 08:00] VITALS: BP 141/84; PULSE 81; RESP 18; TEMP 36.1; O2SAT 97
[2024-10-22] MEDS: Empagliflozin 10 MG TABLET PO (08:36)
[2024-10-22] MEDS: Primidone 50 MG TABLET PO ×2 (08:36→20:20)
[2024-10-22] MEDS: Sertraline HCL 50 MG TABLET PO (08:36)
[2024-10-22] MEDS: OLANZapine 5 MG TABLET PO (08:36)
[2024-10-22] MEDS: Tamsulosin HCL 0.4 MG CAPSULE PO (08:36)
[2024-10-22] MEDS: Memantine HCl 5 MG TABLET PO (08:36)
[2024-10-22] MEDS: metFORMIN HCl ER 500 MG TAB.ER.24H PO ×2 (08:37→20:19)
[2024-10-22] MEDS: lisinopriL 20 MG TABLET PO (08:37)
[2024-10-22] MEDS: Furosemide 20 MG TABLET PO (08:37)
--- NOTE | 2024-10-22 15:54 | P.PNPSI_ITS ---
Subjective Subjective Date of Service: 10/22/24 Reason For Visit: Anxiety, mood disorder, ASD Interim History: met with patient;discussed with team pt says he lost his shampoo which is making him a little sad...he says you'd probably be sad too if you lost something... He says he does not feel good about himself...but then again refers to losing his shampoo. Discussed meds some but patient with limited attention Mental Status Exam Mental Status Exam Patient Appearance: Unkempt Patient Orientation: Person and Place Level of Consciousness: Alert Patient Behavior: Talkative, Confused and Good Eye Contact Mood Description: Sad ( a little sad ) Affect Description: Blunted Patient Cognition Impaired: Yes Ability to Follow Directions: Fair Speech Pattern: Spontaneous Speech, Delayed and Long Pauses Memory Description: Remote Impaired, Immediate Impaired and Recent Impaired Hallucinations: None Delusions: Present Perceptual Disturbances: Derealization Thought Process: Rumination Thought Content: positive for Circumstantial, positive for Perseveration, positive for Preoccupation and positive for Slowed Thinking Judgement: Poor Judgement and Insight: impaired Diagnostics Vital Signs (24Hr): Vital Signs - 24 hr 10/21/24 20:00 10/22/24 08:00 Temperature 96.9 F 97.0 F Pulse Rate 86 81 Respiratory Rate 16 18 Blood Pressure 158/82 H 141/84 H Pulse Oximetry 99 97 Oxygen Delivery Method Room Air Room Air BMI result Body Mass Index 27.8 Labs 10/14/24 18:38 10/21/24 08:02 Labs: Laboratory Results - last 48 hr 10/21/24 08:02 Creatinine 1.07 Estim Creat Clear Calc 74.1 Estimated GFR > 60 Medications Medications Current Medications Acetaminophen (Acetaminophen 325 Mg Tablet) 650 mg PO Q6H PRN PRN Reason: Headache/Pain Mild Scale (1-3) Al Hydroxide/Mg Hydroxide (Magnesium Hydrox/Alum Hydrox 30 Ml Oral.Susp) 30 ml PO Q6H PRN PRN Reason: Heartburn/Nausea Aripiprazole (Aripiprazole 2 Mg Tablet) 2 mg PO BEDTIME [facility] Last Admin: 10/21/24 20:00 Dose: 2 mg Atorvastatin Calcium (Atorvastatin Calcium 80 Mg Tablet) 80 mg PO BEDTIME [facility] Last Admin: 10/21/24 19:59 Dose: 80 mg Benztropine Mesylate (Benztropine Mesylate 0.5 Mg Tablet) 1 mg PO BEDTIME [facility] Last Admin: 10/21/24 19:59 Dose: 1 mg Divalproex Sodium (Divalproex Sodium Er 250 Mg Tab.Er.24h) 1,250 mg PO BEDTIME [facility] Last Admin: 10/21/24 20:00 Dose: 1,250 mg Empagliflozin (Empagliflozin 10 Mg Tablet) 10 mg PO DAILY [facility] Last Admin: 10/22/24 08:36 Dose: 10 mg Furosemide (Furosemide 20 Mg Tablet) 20 mg PO DAILY [facility]; Protocol Last Admin: 10/22/24 08:37 Dose: 20 mg Hydroxyzine HCl (Hydroxyzine Hcl 25 Mg Tablet) 25 mg PO Q6H PRN PRN Reason: Anxiety Last Admin: 10/21/24 16:55 Dose: 25 mg Lisinopril (Lisinopril 20 Mg Tablet) 20 mg PO DAILY [facility]; Protocol Last Admin: 10/22/24 08:37 Dose: 20 mg Magnesium Hydroxide (Milk Of Magnesia 30 Ml Oral.Susp) 30 ml PO DAILY PRN PRN Reason: Constipation Memantine (Memantine Hcl 5 Mg Tablet) 5 mg PO DAILY [facility] Last Admin: 10/22/24 08:36 Dose: 5 mg Metformin HCl (Metformin Hcl Er 500 Mg Tab.Er.24h) 500 mg PO BID [facility] Last Admin: 10/22/24 08:37 Dose: 500 mg Mirtazapine (Mirtazapine 30 Mg Tablet) 30 mg PO BEDTIME [facility] Last Admin: 10/21/24 19:59 Dose: 30 mg Nicotine (Nicotine 21 Mg Patch.Td24) 21 mg TRANSDERMA DAILY PRN PRN Reason: nicotine cravings Nicotine Polacrilex (Nicotine Polacrilex 2 Mg Gum) 4 mg BUCCAL Q2H PRN PRN Reason: Nicotine Cravings Olanzapine (Olanzapine 10 Mg Tablet) 10 mg PO BEDTIME [facility] Last Admin: 10/21/24 19:59 Dose: 10 mg Olanzapine (Olanzapine 5 Mg Tablet) 5 mg PO Q4H PRN PRN Reason: agitation Last Admin: 10/22/24 08:36 Dose: 5 mg Primidone (Primidone 50 Mg Tablet) 50 mg PO BID [facility] Last Admin: 10/22/24 08:36 Dose: 50 mg Sertraline HCl (Sertraline Hcl 50 Mg Tablet) 50 mg PO DAILY [facility] Last Admin: 10/22/24 08:36 Dose: 50 mg Tamsulosin HCl (Tamsulosin Hcl 0.4 Mg Capsule) 0.4 mg PO DAILY [facility] Last Admin: 10/22/24 08:36 Dose: 0.4 mg Trazodone HCl (Trazodone Hcl 50 Mg Tablet) 50 mg PO BEDTIME MRX1 PRN PRN Reason: Insomnia Allergies Allergies Allergy/AdvReac Type Severity Reaction Status Date / Time No Known Allergies Allergy Verified 10/14/24 18:14 [No Known Allergies*] Assessment & Plan Assessment & Plan (1) Mood disorder: Status: Acute Code(s): F39 - Unspecified mood [affective] disorder Plan Humza was admitted for safety and stabilization. His presentation is very similar to his last admission psychiatrically about a year ago and that is why his caregivers wanted to get ahead of things before he decompensated further. Current medications were reviewed and maintained. Contacts to be made with his treaters next week. 10/17: Continue current regimen and plans 10/19: Continue current tx plan and regime. 10/21: Memantine 5 mg daily- [facility], memory sx Abilify 2 mg daily-augment to antidepressants currently being used. 10/22 continue current tx plan -pt confused Patient educated on: diagnosis and medication risk/benefits Informed Consent: does not understand Reason for continued inpatient stay Substantial Risk for: inability to function Time Spent With Patient Time: Total time managing care of this patient today ____ minutes.
[2024-10-22 20:00] VITALS: BP 152/78; PULSE 95; RESP 18; TEMP 36.2; O2SAT 98
[2024-10-22] MEDS: OLANZapine 10 MG TABLET PO (20:19)
[2024-10-22] MEDS: traZODone HCL 50 MG TABLET PO (20:19)
[2024-10-22] MEDS: Benztropine Mesylate 0.5 MG TABLET 1 MG PO (20:19)
[2024-10-22] MEDS: Mirtazapine 30 MG TABLET PO (20:19)
[2024-10-22] MEDS: ARIPiprazole 2 MG TABLET PO (20:19)
[2024-10-22] MEDS: Divalproex Sodium ER 250 MG TAB.ER.24H 1250 MG PO (20:20)
[2024-10-22] MEDS: Atorvastatin Calcium 80 MG TABLET PO (20:20)
[2024-10-23 09:51] VITALS: BP 132/82; PULSE 89; RESP 18; TEMP 36.3; O2SAT 99
[2024-10-23] MEDS: Empagliflozin 10 MG TABLET PO (09:52)
[2024-10-23] MEDS: Furosemide 20 MG TABLET PO (09:52)
[2024-10-23] MEDS: lisinopriL 20 MG TABLET PO (09:52)
[2024-10-23] MEDS: Tamsulosin HCL 0.4 MG CAPSULE PO (09:53)
[2024-10-23] MEDS: Primidone 50 MG TABLET PO ×2 (09:53→20:18)
[2024-10-23] MEDS: metFORMIN HCl ER 500 MG TAB.ER.24H PO ×2 (09:53→20:19)
[2024-10-23] MEDS: Sertraline HCL 50 MG TABLET PO (09:53)
--- NOTE | 2024-10-23 15:20 | P.PNPSI_ITS ---
Subjective Subjective Date of Service: 10/23/24 Reason For Visit: Anxiety, mood disorder, ASD Interim History: Pt seen, discussed with the team. Plan of care reviewed. Pt reports feeling depressed, overwhelmed. Reports he is eating and sleeping Perseverative, depressed, able to verbalize some of his concerns. Medication Compliance: Yes Side effects from medications: No Attending Groups: Intermittent Review of Systems Acute medical concerns: No Medical Review of Systems: unchanged Review of Systems Review of Systems Denies Mental Status Exam Mental Status Exam Narrative: Alert, interactive, speech clear, slow. Ruminative, Perseverative with worry No sx of psychosis. Overwhelmed. Diagnostics Vital Signs (24Hr): Vital Signs - 24 hr 10/22/24 20:00 10/23/24 09:51 Temperature 97.1 F 97.3 F Pulse Rate 95 89 Respiratory Rate 18 18 Blood Pressure 152/78 H 132/82 Pulse Oximetry 98 99 Oxygen Delivery Method Room Air Room Air BMI result Body Mass Index 27.8 Labs 10/14/24 18:38 10/21/24 08:02 Medications Medications Current Medications Acetaminophen (Acetaminophen 325 Mg Tablet) 650 mg PO Q6H PRN PRN Reason: Headache/Pain Mild Scale (1-3) Al Hydroxide/Mg Hydroxide (Magnesium Hydrox/Alum Hydrox 30 Ml Oral.Susp) 30 ml PO Q6H PRN PRN Reason: Heartburn/Nausea Aripiprazole (Aripiprazole 2 Mg Tablet) 2 mg PO BEDTIME [facility] Last Admin: 10/22/24 20:19 Dose: 2 mg Atorvastatin Calcium (Atorvastatin Calcium 80 Mg Tablet) 80 mg PO BEDTIME [facility] Last Admin: 10/22/24 20:20 Dose: 80 mg Benztropine Mesylate (Benztropine Mesylate 0.5 Mg Tablet) 1 mg PO BEDTIME [facility] Last Admin: 10/22/24 20:19 Dose: 1 mg Divalproex Sodium (Divalproex Sodium Er 250 Mg Tab.Er.24h) 1,250 mg PO BEDTIME [facility] Last Admin: 10/22/24 20:20 Dose: 1,250 mg Empagliflozin (Empagliflozin 10 Mg Tablet) 10 mg PO DAILY [facility] Last Admin: 10/23/24 09:52 Dose: 10 mg Furosemide (Furosemide 20 Mg Tablet) 20 mg PO DAILY [facility]; Protocol Last Admin: 10/23/24 09:52 Dose: 20 mg Hydroxyzine HCl (Hydroxyzine Hcl 25 Mg Tablet) 25 mg PO Q6H PRN PRN Reason: Anxiety Last Admin: 10/21/24 16:55 Dose: 25 mg Lisinopril (Lisinopril 20 Mg Tablet) 20 mg PO DAILY [facility]; Protocol Last Admin: 10/23/24 09:52 Dose: 20 mg Magnesium Hydroxide (Milk Of Magnesia 30 Ml Oral.Susp) 30 ml PO DAILY PRN PRN Reason: Constipation Memantine (Memantine Hcl 5 Mg Tablet) 5 mg PO DAILY [facility] Last Admin: 10/23/24 10:14 Dose: Not Given Metformin HCl (Metformin Hcl Er 500 Mg Tab.Er.24h) 500 mg PO BID [facility] Last Admin: 10/23/24 09:53 Dose: 500 mg Mirtazapine (Mirtazapine 30 Mg Tablet) 30 mg PO BEDTIME [facility] Last Admin: 10/22/24 20:19 Dose: 30 mg Nicotine (Nicotine 21 Mg Patch.Td24) 21 mg TRANSDERMA DAILY PRN PRN Reason: nicotine cravings Nicotine Polacrilex (Nicotine Polacrilex 2 Mg Gum) 4 mg BUCCAL Q2H PRN PRN Reason: Nicotine Cravings Olanzapine (Olanzapine 10 Mg Tablet) 10 mg PO BEDTIME [facility] Last Admin: 10/22/24 20:19 Dose: 10 mg Olanzapine (Olanzapine 5 Mg Tablet) 5 mg PO Q4H PRN PRN Reason: agitation Last Admin: 10/22/24 08:36 Dose: 5 mg Primidone (Primidone 50 Mg Tablet) 50 mg PO BID [facility] Last Admin: 10/23/24 09:53 Dose: 50 mg Sertraline HCl (Sertraline Hcl 50 Mg Tablet) 50 mg PO DAILY [facility] Last Admin: 10/23/24 09:53 Dose: 50 mg Tamsulosin HCl (Tamsulosin Hcl 0.4 Mg Capsule) 0.4 mg PO DAILY [facility] Last Admin: 10/23/24 09:53 Dose: 0.4 mg Trazodone HCl (Trazodone Hcl 50 Mg Tablet) 50 mg PO BEDTIME MRX1 PRN PRN Reason: Insomnia Last Admin: 10/22/24 20:19 Dose: 50 mg Allergies Allergies Allergy/AdvReac Type Severity Reaction Status Date / Time No Known Allergies Allergy Verified 10/14/24 18:14 [No Known Allergies*] Assessment & Plan Assessment & Plan (1) Mood disorder: Status: Acute Code(s): F39 - Unspecified mood [affective] disorder Plan Humza was admitted for safety and stabilization. His presentation is very similar to his last admission psychiatrically about a year ago and that is why his caregivers wanted to get ahead of things before he decompensated further. Current medications were reviewed and maintained. Contacts to be made with his treaters next week. 10/17: Continue current regimen and plans 10/19: Continue current tx plan and regime. 10/21: Memantine 5 mg daily- [facility], memory sx Abilify 2 mg daily-augment to antidepressants currently being used. 10/22 continue current tx plan -pt confused 10/23 Continue trials, regime and plan. Reason for continued inpatient stay Substantial Risk for: rapid decompensation Time Spent With Patient Time: Total time managing care of this patient today ____ minutes.
[2024-10-23 19:39] VITALS: BP 126/76; PULSE 81; TEMP 36.4; O2SAT 99
[2024-10-23] MEDS: Divalproex Sodium ER 250 MG TAB.ER.24H 1250 MG PO (20:18)
[2024-10-23] MEDS: Mirtazapine 30 MG TABLET PO (20:19)
[2024-10-23] MEDS: OLANZapine 10 MG TABLET PO (20:19)
[2024-10-23] MEDS: traZODone HCL 50 MG TABLET PO (20:19)
[2024-10-23] MEDS: Benztropine Mesylate 0.5 MG TABLET 1 MG PO (20:19)
[2024-10-23] MEDS: ARIPiprazole 2 MG TABLET PO (20:19)
[2024-10-23] MEDS: Atorvastatin Calcium 80 MG TABLET PO (20:19)
[2024-10-24 08:00] VITALS: BP 113/64; PULSE 69; RESP 14; TEMP 36.5; O2SAT 99
[2024-10-24] MEDS: Sertraline HCL 50 MG TABLET PO (08:33)
[2024-10-24] MEDS: Empagliflozin 10 MG TABLET PO (08:33)
[2024-10-24] MEDS: metFORMIN HCl ER 500 MG TAB.ER.24H PO ×2 (08:33→19:51)
[2024-10-24] MEDS: Tamsulosin HCL 0.4 MG CAPSULE PO (08:33)
[2024-10-24] MEDS: lisinopriL 20 MG TABLET PO (08:33)
[2024-10-24] MEDS: Furosemide 20 MG TABLET PO (08:33)
[2024-10-24] MEDS: Primidone 50 MG TABLET PO ×2 (08:33→19:50)
[2024-10-24] MEDS: Memantine HCl 5 MG TABLET PO (08:33)
--- NOTE | 2024-10-24 13:55 | P.PNPSI_ITS ---
Subjective Subjective Date of Service: 10/24/24 Reason For Visit: Anxiety, mood disorder, ASD Interim History: Pt seen in the milieu. Discussed with the team. Plan of care was reviewed. Pt is not interactive in milieu with peers. He appears aloof and non attentive. He continues with perseverative sx. Team reports he tells this this is to get attention. Reports he is eating and sleeping adequately. Medication Compliance: Yes Side effects from medications: No Attending Groups: Intermittent Review of Systems Acute medical concerns: No Review of Systems Review of Systems Yes all other systems are reviewed and are negative Mental Status Exam Mental Status Exam Narrative: Alert, interactive, speech clear, slow. Ruminative, Perseverative with worry No sx of psychosis. Overwhelmed. Diagnostics Vital Signs (24Hr): Vital Signs - 24 hr 10/23/24 19:39 10/24/24 08:00 Temperature 97.5 F 97.7 F Pulse Rate 81 69 Respiratory Rate 14 Blood Pressure 126/76 113/64 Pulse Oximetry 99 99 Oxygen Delivery Method Room Air Room Air BMI result Body Mass Index 27.8 Labs 10/14/24 18:38 10/21/24 08:02 Medications Medications Current Medications Acetaminophen (Acetaminophen 325 Mg Tablet) 650 mg PO Q6H PRN PRN Reason: Headache/Pain Mild Scale (1-3) Al Hydroxide/Mg Hydroxide (Magnesium Hydrox/Alum Hydrox 30 Ml Oral.Susp) 30 ml PO Q6H PRN PRN Reason: Heartburn/Nausea Aripiprazole (Aripiprazole 2 Mg Tablet) 2 mg PO BEDTIME [facility] Last Admin: 10/23/24 20:19 Dose: 2 mg Atorvastatin Calcium (Atorvastatin Calcium 80 Mg Tablet) 80 mg PO BEDTIME [facility] Last Admin: 10/23/24 20:19 Dose: 80 mg Benztropine Mesylate (Benztropine Mesylate 0.5 Mg Tablet) 1 mg PO BEDTIME [facility] Last Admin: 10/23/24 20:19 Dose: 1 mg Divalproex Sodium (Divalproex Sodium Er 250 Mg Tab.Er.24h) 1,250 mg PO BEDTIME [facility] Last Admin: 10/23/24 20:18 Dose: 1,250 mg Empagliflozin (Empagliflozin 10 Mg Tablet) 10 mg PO DAILY [facility] Last Admin: 10/24/24 08:33 Dose: 10 mg Furosemide (Furosemide 20 Mg Tablet) 20 mg PO DAILY [facility]; Protocol Last Admin: 10/24/24 08:33 Dose: 20 mg Hydroxyzine HCl (Hydroxyzine Hcl 25 Mg Tablet) 25 mg PO Q6H PRN PRN Reason: Anxiety Last Admin: 10/21/24 16:55 Dose: 25 mg Lisinopril (Lisinopril 20 Mg Tablet) 20 mg PO DAILY [facility]; Protocol Last Admin: 10/24/24 08:33 Dose: 20 mg Magnesium Hydroxide (Milk Of Magnesia 30 Ml Oral.Susp) 30 ml PO DAILY PRN PRN Reason: Constipation Memantine (Memantine Hcl 5 Mg Tablet) 5 mg PO DAILY [facility] Last Admin: 10/24/24 08:33 Dose: 5 mg Metformin HCl (Metformin Hcl Er 500 Mg Tab.Er.24h) 500 mg PO BID [facility] Last Admin: 10/24/24 08:33 Dose: 500 mg Mirtazapine (Mirtazapine 30 Mg Tablet) 30 mg PO BEDTIME [facility] Last Admin: 10/23/24 20:19 Dose: 30 mg Nicotine (Nicotine 21 Mg Patch.Td24) 21 mg TRANSDERMA DAILY PRN PRN Reason: nicotine cravings Nicotine Polacrilex (Nicotine Polacrilex 2 Mg Gum) 4 mg BUCCAL Q2H PRN PRN Reason: Nicotine Cravings Olanzapine (Olanzapine 10 Mg Tablet) 10 mg PO BEDTIME [facility] Last Admin: 10/23/24 20:19 Dose: 10 mg Olanzapine (Olanzapine 5 Mg Tablet) 5 mg PO Q4H PRN PRN Reason: agitation Last Admin: 10/22/24 08:36 Dose: 5 mg Primidone (Primidone 50 Mg Tablet) 50 mg PO BID [facility] Last Admin: 10/24/24 08:33 Dose: 50 mg Sertraline HCl (Sertraline Hcl 50 Mg Tablet) 50 mg PO DAILY [facility] Last Admin: 10/24/24 08:33 Dose: 50 mg Tamsulosin HCl (Tamsulosin Hcl 0.4 Mg Capsule) 0.4 mg PO DAILY [facility] Last Admin: 10/24/24 08:33 Dose: 0.4 mg Trazodone HCl (Trazodone Hcl 50 Mg Tablet) 50 mg PO BEDTIME MRX1 PRN PRN Reason: Insomnia Last Admin: 10/23/24 20:19 Dose: 50 mg Allergies Allergies Allergy/AdvReac Type Severity Reaction Status Date / Time No Known Allergies Allergy Verified 10/14/24 18:14 [No Known Allergies*] Assessment & Plan Assessment & Plan (1) Mood disorder: Status: Acute Code(s): F39 - Unspecified mood [affective] disorder Plan Humza was admitted for safety and stabilization. His presentation is very similar to his last admission psychiatrically about a year ago and that is why his caregivers wanted to get ahead of things before he decompensated further. Current medications were reviewed and maintained. Contacts to be made with his treaters next week. 10/17: Continue current regimen and plans 10/19: Continue current tx plan and regime. 10/21: Memantine 5 mg daily- [facility], memory sx Abilify 2 mg daily-augment to antidepressants currently being used. 10/22 continue current tx plan -pt confused 10/23 Continue trials, regime and plan. 10/24: Continue regime and plan of care. Reason for continued inpatient stay Substantial Risk for: rapid decompensation Time Spent With Patient Time: Total time managing care of this patient today ____ minutes.
[2024-10-24] MEDS: ARIPiprazole 2 MG TABLET PO (19:50)
[2024-10-24] MEDS: hydrOXYzine HCL 25 MG TABLET PO (19:50)
[2024-10-24] MEDS: traZODone HCL 50 MG TABLET PO (19:50)
[2024-10-24] MEDS: Atorvastatin Calcium 80 MG TABLET PO (19:50)
[2024-10-24] MEDS: Benztropine Mesylate 0.5 MG TABLET 1 MG PO (19:50)
[2024-10-24] MEDS: OLANZapine 10 MG TABLET PO (19:51)
[2024-10-24] MEDS: Mirtazapine 30 MG TABLET PO (19:51)
[2024-10-24 20:00] VITALS: BP 112/68; PULSE 86; RESP 16; TEMP 36.8; O2SAT 99
[2024-10-25 08:13] VITALS: BP 115/75; PULSE 88; RESP 17; TEMP 36.3; O2SAT 99
[2024-10-25] MEDS: Memantine HCl 5 MG TABLET PO (08:16)
[2024-10-25] MEDS: lisinopriL 20 MG TABLET PO (08:16)
[2024-10-25] MEDS: Tamsulosin HCL 0.4 MG CAPSULE PO (08:16)
[2024-10-25] MEDS: Empagliflozin 10 MG TABLET PO (08:16)
[2024-10-25] MEDS: Furosemide 20 MG TABLET PO (08:16)
[2024-10-25] MEDS: metFORMIN HCl ER 500 MG TAB.ER.24H PO ×2 (08:16→20:37)
[2024-10-25] MEDS: Sertraline HCL 50 MG TABLET PO (08:16)
[2024-10-25] MEDS: Primidone 50 MG TABLET PO ×2 (08:16→20:38)
--- NOTE | 2024-10-25 10:44 | HO.PSYCHPN ---
Subjective Subjective Date of Service: 10/25/24 Reason For Visit: Anxiety, mood disorder, ASD Subjective Notes: Conditional Voluntary Interim History: The nursing staff reported the patient complained of anxiety and depression 03/05. He had been suspicious refused Depakote. On interview the patient was very angry with the staff since his room has been changed. We will encourage compliance. Mental Status Exam Mental Status Exam Patient Appearance: Appropriate Patient Orientation: Person Level of Consciousness: Awake and Appropriate Patient Behavior: Guarded and Passive Mood Description: Calm Affect Description: Constricted Patient Cognition Impaired: Yes Ability to Follow Directions: Fair Speech Pattern: Clear Hallucinations: None Delusions: Paranoid Ideation and Ideas of Reference Thought Process: Distracted and Slowed Thinking Thought Content: positive for [place] and positive for Poverty of Content Judgement: Poor Diagnostics Vital Signs (24Hr): Vital Signs - 24 hr 10/24/24 20:00 10/25/24 08:13 Temperature 98.2 F 97.3 F Pulse Rate 86 88 Respiratory Rate 16 17 Blood Pressure 112/68 115/75 Pulse Oximetry 99 99 Oxygen Delivery Method Room Air Room Air BMI result Body Mass Index 27.8 Labs 10/14/24 18:38 10/21/24 08:02 Medications Medications Current Medications Acetaminophen (Acetaminophen 325 Mg Tablet) 650 mg PO Q6H PRN PRN Reason: Headache/Pain Mild Scale (1-3) Al Hydroxide/Mg Hydroxide (Magnesium Hydrox/Alum Hydrox 30 Ml Oral.Susp) 30 ml PO Q6H PRN PRN Reason: Heartburn/Nausea Aripiprazole (Aripiprazole 2 Mg Tablet) 2 mg PO BEDTIME [facility] Last Admin: 10/24/24 19:50 Dose: 2 mg Atorvastatin Calcium (Atorvastatin Calcium 80 Mg Tablet) 80 mg PO BEDTIME [facility] Last Admin: 10/24/24 19:50 Dose: 80 mg Benztropine Mesylate (Benztropine Mesylate 0.5 Mg Tablet) 1 mg PO BEDTIME [facility] Last Admin: 10/24/24 19:50 Dose: 1 mg Divalproex Sodium (Divalproex Sodium Er 250 Mg Tab.Er.24h) 1,250 mg PO BEDTIME [facility] Last Admin: 10/24/24 21:50 Dose: Not Given Empagliflozin (Empagliflozin 10 Mg Tablet) 10 mg PO DAILY [facility] Last Admin: 10/25/24 08:16 Dose: 10 mg Furosemide (Furosemide 20 Mg Tablet) 20 mg PO DAILY [facility]; Protocol Last Admin: 10/25/24 08:16 Dose: 20 mg Hydroxyzine HCl (Hydroxyzine Hcl 25 Mg Tablet) 25 mg PO Q6H PRN PRN Reason: Anxiety Last Admin: 10/24/24 19:50 Dose: 25 mg Lisinopril (Lisinopril 20 Mg Tablet) 20 mg PO DAILY [facility]; Protocol Last Admin: 10/25/24 08:16 Dose: 20 mg Magnesium Hydroxide (Milk Of Magnesia 30 Ml Oral.Susp) 30 ml PO DAILY PRN PRN Reason: Constipation Memantine (Memantine Hcl 5 Mg Tablet) 5 mg PO DAILY [facility] Last Admin: 10/25/24 08:16 Dose: 5 mg Metformin HCl (Metformin Hcl Er 500 Mg Tab.Er.24h) 500 mg PO BID [facility] Last Admin: 10/25/24 08:16 Dose: 500 mg Mirtazapine (Mirtazapine 30 Mg Tablet) 30 mg PO BEDTIME [facility] Last Admin: 10/24/24 19:51 Dose: 30 mg Nicotine (Nicotine 21 Mg Patch.Td24) 21 mg TRANSDERMA DAILY PRN PRN Reason: nicotine cravings Nicotine Polacrilex (Nicotine Polacrilex 2 Mg Gum) 4 mg BUCCAL Q2H PRN PRN Reason: Nicotine Cravings Olanzapine (Olanzapine 10 Mg Tablet) 10 mg PO BEDTIME [facility] Last Admin: 10/24/24 19:51 Dose: 10 mg Olanzapine (Olanzapine 5 Mg Tablet) 5 mg PO Q4H PRN PRN Reason: agitation Last Admin: 10/22/24 08:36 Dose: 5 mg Primidone (Primidone 50 Mg Tablet) 50 mg PO BID [facility] Last Admin: 10/25/24 08:16 Dose: 50 mg Sertraline HCl (Sertraline Hcl 50 Mg Tablet) 50 mg PO DAILY [facility] Last Admin: 10/25/24 08:16 Dose: 50 mg Tamsulosin HCl (Tamsulosin Hcl 0.4 Mg Capsule) 0.4 mg PO DAILY [facility] Last Admin: 10/25/24 08:16 Dose: 0.4 mg Trazodone HCl (Trazodone Hcl 50 Mg Tablet) 50 mg PO BEDTIME MRX1 PRN PRN Reason: Insomnia Last Admin: 10/24/24 19:50 Dose: 50 mg Allergies Allergies Allergy/AdvReac Type Severity Reaction Status Date / Time No Known Allergies Allergy Verified 10/14/24 18:14 [No Known Allergies*] Assessment & Plan Assessment & Plan (1) Mood disorder: Status: Acute Code(s): F39 - Unspecified mood [affective] disorder Plan Humza was admitted for safety and stabilization. His presentation is very similar to his last admission psychiatrically about a year ago and that is why his caregivers wanted to get ahead of things before he decompensated further. Current medications were reviewed and maintained. Contacts to be made with his treaters next week. 10/17: Continue current regimen and plans 10/19: Continue current tx plan and regime. 10/21: Memantine 5 mg daily- [facility], memory sx Abilify 2 mg daily-augment to antidepressants currently being used. 10/22 continue current tx plan -pt confused 10/23 Continue trials, regime and plan. Plan 1. Keep Depakote 1250 mg p.o. q.h.s.. 2. Increase Abilify up to 5 mg p.o. q.h.s. to target irritability and mood lability. 3. Keep the rest the same Reason for continued inpatient stay Substantial Risk for: inability to function, rapid decompensation and med/psych decompensation Time Spent With Patient Time: Total time managing care of this patient today __20__ minutes.
[2024-10-25 20:00] VITALS: BP 96/60; PULSE 77; RESP 16; TEMP 36.3; O2SAT 98
[2024-10-25] MEDS: ARIPiprazole 5 MG TABLET PO (20:35)
[2024-10-25] MEDS: Atorvastatin Calcium 80 MG TABLET PO (20:36)
[2024-10-25] MEDS: Benztropine Mesylate 0.5 MG TABLET 1 MG PO (20:36)
[2024-10-25] MEDS: Divalproex Sodium ER 250 MG TAB.ER.24H 1250 MG PO (20:37)
[2024-10-25] MEDS: OLANZapine 10 MG TABLET PO (20:38)
[2024-10-25] MEDS: Mirtazapine 30 MG TABLET PO (20:38)
[2024-10-26 07:52] VITALS: BP 114/84; PULSE 82; RESP 18; TEMP 36.2; O2SAT 99
[2024-10-26] MEDS: Furosemide 20 MG TABLET PO (07:54)
[2024-10-26] MEDS: Primidone 50 MG TABLET PO ×2 (07:54→21:38)
[2024-10-26] MEDS: Empagliflozin 10 MG TABLET PO (07:54)
[2024-10-26] MEDS: OLANZapine 5 MG TABLET PO (07:54)
[2024-10-26] MEDS: metFORMIN HCl ER 500 MG TAB.ER.24H PO ×2 (07:54→21:37)
[2024-10-26] MEDS: Memantine HCl 5 MG TABLET PO (07:54)
[2024-10-26] MEDS: lisinopriL 20 MG TABLET PO (07:54)
[2024-10-26] MEDS: Sertraline HCL 50 MG TABLET PO (07:54)
[2024-10-26] MEDS: Tamsulosin HCL 0.4 MG CAPSULE PO (07:54)
--- NOTE | 2024-10-26 15:27 | HO.PSYCHPN ---
Subjective Subjective Date of Service: 10/26/24 Reason For Visit: Anxiety, mood disorder, ASD Subjective Notes: Conditional Voluntary Interim History: The nursing staff reported the patient had been frustrated with the room change, he threatened to punch staff but later he apologized he slept well last night. On interview the patient denies new symptoms he looks very confused and irritable. We recently increased his Abilify up to 5 mg yesterday. Mental Status Exam Mental Status Exam Patient Appearance: Appropriate Patient Orientation: Person and Situation Level of Consciousness: Awake and Appropriate Patient Behavior: Guarded and Passive Mood Description: Withdrawn Affect Description: Labile Patient Cognition Impaired: Yes Ability to Follow Directions: Good Speech Pattern: Clear Hallucinations: None Delusions: Paranoid Ideation and Ideas of Reference Thought Process: Distracted and Slowed Thinking Thought Content: positive for [place] and positive for Poverty of Content Judgement: Fair Diagnostics Vital Signs (24Hr): Vital Signs - 24 hr 10/25/24 20:00 10/26/24 07:52 Temperature 97.4 F 97.1 F Pulse Rate 77 82 Respiratory Rate 16 18 Blood Pressure 96/60 114/84 Pulse Oximetry 98 99 Oxygen Delivery Method Room Air Room Air BMI result Body Mass Index 27.8 Labs 10/14/24 18:38 10/21/24 08:02 Medications Medications Current Medications Acetaminophen (Acetaminophen 325 Mg Tablet) 650 mg PO Q6H PRN PRN Reason: Headache/Pain Mild Scale (1-3) Al Hydroxide/Mg Hydroxide (Magnesium Hydrox/Alum Hydrox 30 Ml Oral.Susp) 30 ml PO Q6H PRN PRN Reason: Heartburn/Nausea Aripiprazole (Aripiprazole 5 Mg Tablet) 5 mg PO BEDTIME [facility] Last Admin: 10/25/24 20:35 Dose: 5 mg Atorvastatin Calcium (Atorvastatin Calcium 80 Mg Tablet) 80 mg PO BEDTIME [facility] Last Admin: 10/25/24 20:36 Dose: 80 mg Benztropine Mesylate (Benztropine Mesylate 0.5 Mg Tablet) 1 mg PO BEDTIME [facility] Last Admin: 10/25/24 20:36 Dose: 1 mg Divalproex Sodium (Divalproex Sodium Er 250 Mg Tab.Er.24h) 1,250 mg PO BEDTIME [facility] Last Admin: 10/25/24 20:37 Dose: 1,250 mg Empagliflozin (Empagliflozin 10 Mg Tablet) 10 mg PO DAILY [facility] Last Admin: 10/26/24 07:54 Dose: 10 mg Furosemide (Furosemide 20 Mg Tablet) 20 mg PO DAILY [facility]; Protocol Last Admin: 10/26/24 07:54 Dose: 20 mg Hydroxyzine HCl (Hydroxyzine Hcl 25 Mg Tablet) 25 mg PO Q6H PRN PRN Reason: Anxiety Last Admin: 10/24/24 19:50 Dose: 25 mg Lisinopril (Lisinopril 20 Mg Tablet) 20 mg PO DAILY [facility]; Protocol Last Admin: 10/26/24 07:54 Dose: 20 mg Magnesium Hydroxide (Milk Of Magnesia 30 Ml Oral.Susp) 30 ml PO DAILY PRN PRN Reason: Constipation Memantine (Memantine Hcl 5 Mg Tablet) 5 mg PO DAILY [facility] Last Admin: 10/26/24 07:54 Dose: 5 mg Metformin HCl (Metformin Hcl Er 500 Mg Tab.Er.24h) 500 mg PO BID [facility] Last Admin: 10/26/24 07:54 Dose: 500 mg Mirtazapine (Mirtazapine 30 Mg Tablet) 30 mg PO BEDTIME [facility] Last Admin: 10/25/24 20:38 Dose: 30 mg Nicotine (Nicotine 21 Mg Patch.Td24) 21 mg TRANSDERMA DAILY PRN PRN Reason: nicotine cravings Nicotine Polacrilex (Nicotine Polacrilex 2 Mg Gum) 4 mg BUCCAL Q2H PRN PRN Reason: Nicotine Cravings Olanzapine (Olanzapine 10 Mg Tablet) 10 mg PO BEDTIME [facility] Last Admin: 10/25/24 20:38 Dose: 10 mg Olanzapine (Olanzapine 5 Mg Tablet) 5 mg PO Q4H PRN PRN Reason: agitation Last Admin: 10/26/24 07:54 Dose: 5 mg Primidone (Primidone 50 Mg Tablet) 50 mg PO BID [facility] Last Admin: 10/26/24 07:54 Dose: 50 mg Sertraline HCl (Sertraline Hcl 50 Mg Tablet) 50 mg PO DAILY [facility] Last Admin: 10/26/24 07:54 Dose: 50 mg Tamsulosin HCl (Tamsulosin Hcl 0.4 Mg Capsule) 0.4 mg PO DAILY [facility] Last Admin: 10/26/24 07:54 Dose: 0.4 mg Trazodone HCl (Trazodone Hcl 50 Mg Tablet) 50 mg PO BEDTIME MRX1 PRN PRN Reason: Insomnia Last Admin: 10/24/24 19:50 Dose: 50 mg Allergies Allergies Allergy/AdvReac Type Severity Reaction Status Date / Time No Known Allergies Allergy Verified 10/14/24 18:14 [No Known Allergies*] Assessment & Plan Assessment & Plan (1) Mood disorder: Status: Acute Code(s): F39 - Unspecified mood [affective] disorder Plan Humza was admitted for safety and stabilization. His presentation is very similar to his last admission psychiatrically about a year ago and that is why his caregivers wanted to get ahead of things before he decompensated further. Current medications were reviewed and maintained. Contacts to be made with his treaters next week. 10/17: Continue current regimen and plans 10/19: Continue current tx plan and regime. 10/21: Memantine 5 mg daily- [facility], memory sx Abilify 2 mg daily-augment to antidepressants currently being used. 10/22 continue current tx plan -pt confused 10/23 Continue trials, regime and plan. 10/24: Continue regime and plan of care. 10/25 Abilify increased up to 5 mg. 10/26 keep on same treatment Reason for continued inpatient stay Substantial Risk for: inability to function, rapid decompensation and med/psych decompensation Time Spent With Patient Time: Total time managing care of this patient today __20__ minutes.
[2024-10-26 20:00] VITALS: BP 150/78; PULSE 97; RESP 18; TEMP 37; O2SAT 98
[2024-10-26] MEDS: Benztropine Mesylate 0.5 MG TABLET 1 MG PO (21:35)
[2024-10-26] MEDS: ARIPiprazole 5 MG TABLET PO (21:37)
[2024-10-26] MEDS: traZODone HCL 50 MG TABLET PO (21:38)
[2024-10-26] MEDS: Mirtazapine 30 MG TABLET PO (21:40)
[2024-10-26] MEDS: hydrOXYzine HCL 25 MG TABLET PO (21:41)
[2024-10-26] MEDS: Atorvastatin Calcium 80 MG TABLET PO (21:41)
[2024-10-26] MEDS: Divalproex Sodium ER 250 MG TAB.ER.24H 1250 MG PO (21:43)
[2024-10-26] MEDS: OLANZapine 10 MG TABLET PO (22:09)
[2024-10-27 08:00] VITALS: BP 116/60; PULSE 78; RESP 18; TEMP 36.1; O2SAT 98
[2024-10-27] MEDS: Empagliflozin 10 MG TABLET PO (08:50)
[2024-10-27] MEDS: Tamsulosin HCL 0.4 MG CAPSULE PO (08:50)
[2024-10-27] MEDS: Primidone 50 MG TABLET PO ×2 (08:50→20:20)
[2024-10-27] MEDS: Memantine HCl 5 MG TABLET PO (08:50)
[2024-10-27] MEDS: Furosemide 20 MG TABLET PO (08:50)
[2024-10-27] MEDS: Sertraline HCL 50 MG TABLET PO (08:51)
[2024-10-27] MEDS: lisinopriL 20 MG TABLET PO (08:51)
[2024-10-27] MEDS: metFORMIN HCl ER 500 MG TAB.ER.24H PO ×2 (08:51→20:21)
--- NOTE | 2024-10-27 13:14 | HO.PSYCHPN ---
Subjective Subjective Date of Service: 10/27/24 Reason For Visit: Anxiety, mood disorder, ASD Subjective Notes: Conditional Voluntary Healthcare Proxy: No Guardianship: No Medical Problems Affecting Mental Status: No Interim History: 64 yo with mood lability/irritability and depression anxiety- reports he is not being helped reiterated a few times- but couldn't really engage on any particular issue that is missing in terms of treatment- Slept 8hrs by nursing report took trazodone and hydroxyzine, refused bigger depakote pills so changing to sprinkles- Medication Compliance: Intermittent Side effects from medications: No Attending Groups: Intermittent Review of Systems Acute medical concerns: No Medical Review of Systems: unchanged Mental Status Exam Mental Status Exam Patient Appearance: Unkempt Patient Orientation: Person, Place and Situation Level of Consciousness: Awake Patient Behavior: Cooperative and Resistive to Care Mood Description: Anxious Affect Description: Blunted Patient Cognition Impaired: No Ability to Follow Directions: Fair Speech Pattern: Perseverating Thought Process: Rumination Thought Content: positive for [place] and positive for Perseveration Depressive Symptoms: Increased Irritability (ongoing irritability not increased) and Unhappiness Judgement: Poor Diagnostics Vital Signs (24Hr): Vital Signs - 24 hr 10/26/24 20:00 10/27/24 08:00 Temperature 98.6 F 96.9 F Pulse Rate 97 78 Respiratory Rate 18 18 Blood Pressure 150/78 H 116/60 Pulse Oximetry 98 98 Oxygen Delivery Method Room Air Room Air BMI result Body Mass Index 27.8 Labs 10/14/24 18:38 10/21/24 08:02 Medications Medications Current Medications Acetaminophen (Acetaminophen 325 Mg Tablet) 650 mg PO Q6H PRN PRN Reason: Headache/Pain Mild Scale (1-3) Al Hydroxide/Mg Hydroxide (Magnesium Hydrox/Alum Hydrox 30 Ml Oral.Susp) 30 ml PO Q6H PRN PRN Reason: Heartburn/Nausea Aripiprazole (Aripiprazole 5 Mg Tablet) 5 mg PO BEDTIME [facility] Last Admin: 10/26/24 21:37 Dose: 5 mg Atorvastatin Calcium (Atorvastatin Calcium 80 Mg Tablet) 80 mg PO BEDTIME [facility] Last Admin: 10/26/24 21:41 Dose: 80 mg Benztropine Mesylate (Benztropine Mesylate 0.5 Mg Tablet) 1 mg PO BEDTIME [facility] Last Admin: 10/26/24 21:35 Dose: 1 mg Divalproex Sodium (Divalproex Sodium Er 250 Mg Tab.Er.24h) 1,250 mg PO BEDTIME [facility] Last Admin: 10/26/24 21:43 Dose: 500 mg Empagliflozin (Empagliflozin 10 Mg Tablet) 10 mg PO DAILY [facility] Last Admin: 10/27/24 08:50 Dose: 10 mg Furosemide (Furosemide 20 Mg Tablet) 20 mg PO DAILY [facility]; Protocol Last Admin: 10/27/24 08:50 Dose: 20 mg Hydroxyzine HCl (Hydroxyzine Hcl 25 Mg Tablet) 25 mg PO Q6H PRN PRN Reason: Anxiety Last Admin: 10/26/24 21:41 Dose: 25 mg Lisinopril (Lisinopril 20 Mg Tablet) 20 mg PO DAILY [facility]; Protocol Last Admin: 10/27/24 08:51 Dose: 20 mg Magnesium Hydroxide (Milk Of Magnesia 30 Ml Oral.Susp) 30 ml PO DAILY PRN PRN Reason: Constipation Memantine (Memantine Hcl 5 Mg Tablet) 5 mg PO DAILY [facility] Last Admin: 10/27/24 08:50 Dose: 5 mg Metformin HCl (Metformin Hcl Er 500 Mg Tab.Er.24h) 500 mg PO BID [facility] Last Admin: 10/27/24 08:51 Dose: 500 mg Mirtazapine (Mirtazapine 30 Mg Tablet) 30 mg PO BEDTIME [facility] Last Admin: 10/26/24 21:40 Dose: 30 mg Nicotine (Nicotine 21 Mg Patch.Td24) 21 mg TRANSDERMA DAILY PRN PRN Reason: nicotine cravings Nicotine Polacrilex (Nicotine Polacrilex 2 Mg Gum) 4 mg BUCCAL Q2H PRN PRN Reason: Nicotine Cravings Olanzapine (Olanzapine 10 Mg Tablet) 10 mg PO BEDTIME [facility] Last Admin: 10/26/24 22:11 Dose: Not Given Olanzapine (Olanzapine 5 Mg Tablet) 5 mg PO Q4H PRN PRN Reason: agitation Last Admin: 10/26/24 07:54 Dose: 5 mg Primidone (Primidone 50 Mg Tablet) 50 mg PO BID [facility] Last Admin: 10/27/24 08:50 Dose: 50 mg Sertraline HCl (Sertraline Hcl 50 Mg Tablet) 50 mg PO DAILY [facility] Last Admin: 10/27/24 08:51 Dose: 50 mg Tamsulosin HCl (Tamsulosin Hcl 0.4 Mg Capsule) 0.4 mg PO DAILY [facility] Last Admin: 10/27/24 08:50 Dose: 0.4 mg Trazodone HCl (Trazodone Hcl 50 Mg Tablet) 50 mg PO BEDTIME MRX1 PRN PRN Reason: Insomnia Last Admin: 10/26/24 21:38 Dose: 50 mg Allergies Allergies Allergy/AdvReac Type Severity Reaction Status Date / Time No Known Allergies Allergy Verified 10/14/24 18:14 [No Known Allergies*] Assessment & Plan Assessment & Plan (1) Mood disorder: Status: Acute Code(s): F39 - Unspecified mood [affective] disorder Plan Humza was admitted for safety and stabilization. His presentation is very similar to his last admission psychiatrically about a year ago and that is why his caregivers wanted to get ahead of things before he decompensated further. Current medications were reviewed and maintained. Contacts to be made with his treaters next week. 10/17: Continue current regimen and plans 10/19: Continue current tx plan and regime. 10/21: Memantine 5 mg daily- [facility], memory sx Abilify 2 mg daily-augment to antidepressants currently being used. 10/22 continue current tx plan -pt confused 10/23 Continue trials, regime and plan. 10/24: Continue regime and plan of care. 10/25 Abilify increased up to 5 mg. 10/26 keep on same treatment 10/27/24 continues with many complaints, no clear insight into self- Patient educated on: therapeutic strategies Informed Consent: does not understand and further education needed Reason for continued inpatient stay Substantial Risk for: inability to function and rapid decompensation Time Spent With Patient Time: Total time managing care of this patient today ____ minutes.
[2024-10-27 19:43] VITALS: BP 132/81; PULSE 83; TEMP 36.2; O2SAT 99
[2024-10-27] MEDS: Mirtazapine 30 MG TABLET PO (20:20)
[2024-10-27] MEDS: Benztropine Mesylate 0.5 MG TABLET 1 MG PO (20:20)
[2024-10-27] MEDS: ARIPiprazole 5 MG TABLET PO (20:20)
[2024-10-27] MEDS: hydrOXYzine HCL 25 MG TABLET PO (20:21)
[2024-10-27] MEDS: Atorvastatin Calcium 80 MG TABLET PO (20:21)
[2024-10-27] MEDS: traZODone HCL 50 MG TABLET PO (20:21)
[2024-10-27] MEDS: OLANZapine 10 MG TABLET PO (20:21)
[2024-10-28 08:00] VITALS: BP 126/79; PULSE 80; RESP 18; TEMP 36.3; O2SAT 98
[2024-10-28 08:22] VITALS: BP 126/79
[2024-10-28] MEDS: Sertraline HCL 50 MG TABLET PO (08:22)
[2024-10-28] MEDS: Tamsulosin HCL 0.4 MG CAPSULE PO (08:22)
[2024-10-28] MEDS: Furosemide 20 MG TABLET PO (08:22)
[2024-10-28] MEDS: metFORMIN HCl ER 500 MG TAB.ER.24H PO ×2 (08:22→20:37)
[2024-10-28 08:23] VITALS: BP 126/79
[2024-10-28] MEDS: Primidone 50 MG TABLET PO ×2 (08:23→20:37)
[2024-10-28] MEDS: Empagliflozin 10 MG TABLET PO (08:23)
[2024-10-28] MEDS: lisinopriL 20 MG TABLET PO (08:23)
[2024-10-28] MEDS: Memantine HCl 5 MG TABLET PO (08:23)
[2024-10-28 10:28] LABS: MANUAL DIFF FLAG NO
[2024-10-28 10:33] LABS: Basophils Percent Auto 0.3 % (0-2); Eosinophils Absolute Auto 0.1 X10*3/uL (0.0-0.4); Hematocrit 47.1 % (42.0-52.0); Hemoglobin 16.2 g/dl (14.0-18.0); Imm Gran Abs Auto 0.03 X10*3/uL (0.00-0.03); Imm Gran Pct Auto 0.4 % (0.0-0.4); Lymphocytes Absolute Auto 1.6 X10*3/uL (1.2-4.9); Lymphocytes Percent Auto 21.5 % (20-40); Mean Corpuscular HGB Conc 34.4 g/dl (31.0-36.0); Mean Corpuscular Hemoglobin 30.9 pg (27.0-33.0); Mean Corpuscular Volume 89.7 fL (80.0-98.0); Mean Platelet Volume 11.7 fL (9.4-12.4); Monocytes Absolute Auto 0.7 X10*3/uL (0.1-1.2); Monocytes Percent Auto 9.9 % (2-11); Neutrophils Absolute Auto 4.8 x10*3/uL (2.0-8.3); Neutrophils Percent Auto 66.9 % (45-73); Platelet Count 193 X10*3/uL (160-400); Red Blood Count 5.25 X10*6/uL (4.60-5.80); Red Cell Distribution Width 13.4 % (11.0-16.0); White Blood Count 7.2 X10*3/uL (4.8-10.8)
[2024-10-28 10:46] LABS: Valproate 24.4 mcg/mL (50.0-100.0)
[2024-10-28 10:48] LABS: Alanine Aminotransferase 32 U/L (0-40); Albumin Level 4.9 g/dL (3.5-5.0); Alkaline Phosphatase 73 U/L (39-117); Anion Gap 16 (12-20); Aspartate Amino Transferase 31 U/L (5-37); Bilirubin Total 0.5 mg/dL (0.0-1.0); Blood Urea Nitrogen 22 mg/dL (9-16); Calcium 9.8 mg/dL (8.4-10.2); Carbon Dioxide 25 mmol/L (22-29); Chloride 102 mmol/L (96-108); Creatinine Clr Calc Pharmacy 54.7; Estimated Glomerular Filt Rate 50; Glucose Fasting 188 mg/dL (60-99); Potassium 4.6 mmol/L (3.3-5.1); Sodium 138 mmol/L (135-145)
--- NOTE | 2024-10-28 12:41 | P.PNPSI_ITS ---
Subjective Subjective Date of Service: 10/28/24 Reason For Visit: Anxiety, mood disorder, ASD Subjective Notes: Conditional Voluntary Interim History: The nursing staff reported the patient had been anxious attention seeking paranoid at times but easily redirectable he refused his Depakote last night and he slept 8 hours. The occupational therapist reported that he scored 3.2 on the Gordon test. The clinical social work therapist tried to call the healthcare proxy and apparently he tried to be on group homes but he did not workout also he has other services such as VNA and day program. On interview the patient denies new symptoms still labile. Mental Status Exam Mental Status Exam Patient Appearance: Appropriate Patient Orientation: Person and Situation Level of Consciousness: Awake and Appropriate Patient Behavior: Guarded and Passive Mood Description: Withdrawn Affect Description: Labile Patient Cognition Impaired: Yes Ability to Follow Directions: Good Speech Pattern: Clear Hallucinations: None Delusions: Paranoid Ideation and Ideas of Reference Thought Process: Distracted and Slowed Thinking Thought Content: positive for [place] and positive for Poverty of Content Judgement: Fair Diagnostics Vital Signs (24Hr): Vital Signs - 24 hr 10/27/24 19:43 10/28/24 08:00 10/28/24 08:22 Temperature 97.1 F 97.4 F Pulse Rate 83 80 Respiratory Rate 18 Blood Pressure 132/81 126/79 126/79 Pulse Oximetry 99 98 Oxygen Delivery Method Room Air Room Air 10/28/24 08:23 Temperature Pulse Rate Respiratory Rate Blood Pressure 126/79 Pulse Oximetry Oxygen Delivery Method BMI result Body Mass Index 27.8 Labs 10/28/24 09:10 10/28/24 09:09 Labs: Laboratory Results - last 48 hr 10/28/24 10/28/24 09:09 09:10 WBC 7.2 RBC 5.25 Hgb 16.2 Hct 47.1 MCV 89.7 MCH 30.9 MCHC 34.4 RDW 13.4 Plt Count 193 MPV 11.7 Immature Gran % (Auto) 0.4 Neut % (Auto) 66.9 Lymph % (Auto) 21.5 [place] % (Auto) 9.9 Eos % (Auto) 1.0 Baso % (Auto) 0.3 Lymph # (Auto) 1.6 [place] # (Auto) 0.7 Eos # (Auto) 0.1 Baso # (Auto) 0.0 Abs Immat Gran (auto) 0.03 Absolute Neuts (auto) 4.8 Absolute Nucleated RBC 0.000 Nucleated RBC % (auto) 0.0 Sodium 138 Potassium 4.6 Chloride 102 Carbon Dioxide 25 Anion Gap 16 BUN 22 H Creatinine 1.43 H Estim Creat Clear Calc 54.7 Estimated GFR 50 Fasting Glucose 188 H Calcium 9.8 Total Bilirubin 0.5 AST 31 ALT 32 Alkaline Phosphatase 73 Total Protein 8.0 Albumin 4.9 Valproic Acid 24.4 L Medications Medications Current Medications Acetaminophen (Acetaminophen 325 Mg Tablet) 650 mg PO Q6H PRN PRN Reason: Headache/Pain Mild Scale (1-3) Al Hydroxide/Mg Hydroxide (Magnesium Hydrox/Alum Hydrox 30 Ml Oral.Susp) 30 ml PO Q6H PRN PRN Reason: Heartburn/Nausea Aripiprazole (Aripiprazole 5 Mg Tablet) 5 mg PO BEDTIME [facility] Last Admin: 10/27/24 20:20 Dose: 5 mg Atorvastatin Calcium (Atorvastatin Calcium 80 Mg Tablet) 80 mg PO BEDTIME [facility] Last Admin: 10/27/24 20:21 Dose: 80 mg Benztropine Mesylate (Benztropine Mesylate 0.5 Mg Tablet) 1 mg PO BEDTIME [facility] Last Admin: 10/27/24 20:20 Dose: 1 mg Divalproex Sodium (Divalproex Sodium Sprinkles 125 Mg ) 1,250 mg PO BEDTIME [facility] Last Admin: 10/27/24 20:26 Dose: Not Given Empagliflozin (Empagliflozin 10 Mg Tablet) 10 mg PO DAILY [facility] Last Admin: 10/28/24 08:23 Dose: 10 mg Furosemide (Furosemide 20 Mg Tablet) 20 mg PO DAILY [facility]; Protocol Last Admin: 10/28/24 08:22 Dose: 20 mg Hydroxyzine HCl (Hydroxyzine Hcl 25 Mg Tablet) 25 mg PO Q6H PRN PRN Reason: Anxiety Last Admin: 10/27/24 20:21 Dose: 25 mg Lisinopril (Lisinopril 20 Mg Tablet) 20 mg PO DAILY [facility]; Protocol Last Admin: 10/28/24 08:23 Dose: 20 mg Magnesium Hydroxide (Milk Of Magnesia 30 Ml Oral.Susp) 30 ml PO DAILY PRN PRN Reason: Constipation Memantine (Memantine Hcl 5 Mg Tablet) 5 mg PO DAILY [facility] Last Admin: 10/28/24 08:23 Dose: 5 mg Metformin HCl (Metformin Hcl Er 500 Mg Tab.Er.24h) 500 mg PO BID [facility] Last Admin: 10/28/24 08:22 Dose: 500 mg Mirtazapine (Mirtazapine 30 Mg Tablet) 30 mg PO BEDTIME [facility] Last Admin: 10/27/24 20:20 Dose: 30 mg Nicotine (Nicotine 21 Mg Patch.Td24) 21 mg TRANSDERMA DAILY PRN PRN Reason: nicotine cravings Nicotine Polacrilex (Nicotine Polacrilex 2 Mg Gum) 4 mg BUCCAL Q2H PRN PRN Reason: Nicotine Cravings Olanzapine (Olanzapine 10 Mg Tablet) 10 mg PO BEDTIME [facility] Last Admin: 10/27/24 20:21 Dose: 10 mg Olanzapine (Olanzapine 5 Mg Tablet) 5 mg PO Q4H PRN PRN Reason: agitation Last Admin: 10/26/24 07:54 Dose: 5 mg Primidone (Primidone 50 Mg Tablet) 50 mg PO BID [facility] Last Admin: 10/28/24 08:23 Dose: 50 mg Sertraline HCl (Sertraline Hcl 50 Mg Tablet) 50 mg PO DAILY [facility] Last Admin: 10/28/24 08:22 Dose: 50 mg Tamsulosin HCl (Tamsulosin Hcl 0.4 Mg Capsule) 0.4 mg PO DAILY [facility] Last Admin: 10/28/24 08:22 Dose: 0.4 mg Trazodone HCl (Trazodone Hcl 50 Mg Tablet) 50 mg PO BEDTIME MRX1 PRN PRN Reason: Insomnia Last Admin: 10/27/24 20:21 Dose: 50 mg Allergies Allergies Allergy/AdvReac Type Severity Reaction Status Date / Time No Known Allergies Allergy Verified 10/14/24 18:14 [No Known Allergies*] Assessment & Plan Assessment & Plan (1) Mood disorder: Status: Acute Code(s): F39 - Unspecified mood [affective] disorder Plan Humza was admitted for safety and stabilization. His presentation is very similar to his last admission psychiatrically about a year ago and that is why his caregivers wanted to get ahead of things before he decompensated further. Current medications were reviewed and maintained. Contacts to be made with his treaters next week. 10/17: Continue current regimen and plans 10/19: Continue current tx plan and regime. 10/21: Memantine 5 mg daily- [facility], memory sx Abilify 2 mg daily-augment to antidepressants currently being used. 10/22 continue current tx plan -pt confused 10/23 Continue trials, regime and plan. 10/24: Continue regime and plan of care. 10/25 Abilify increased up to 5 mg. 10/26 keep on same treatment 10/27/24 continues with many complaints, no clear insight into self- 10/28 continue same treatment Reason for continued inpatient stay Substantial Risk for: inability to function, rapid decompensation and med/psych decompensation Time Spent With Patient Time: Total time managing care of this patient today __20__ minutes.
[2024-10-28 13:09] VITALS: BMI 27.9
[2024-10-28 19:24] VITALS: BP 112/64; PULSE 82; TEMP 36.3; O2SAT 98
[2024-10-28] MEDS: Divalproex Sodium Sprinkles 125 MG CAP.DR.SPR 1250 MG PO (20:35)
[2024-10-28] MEDS: OLANZapine 10 MG TABLET PO (20:37)
[2024-10-28] MEDS: Atorvastatin Calcium 80 MG TABLET PO (20:37)
[2024-10-28] MEDS: Mirtazapine 30 MG TABLET PO (20:40)
[2024-10-28] MEDS: ARIPiprazole 5 MG TABLET PO (20:40)
[2024-10-28] MEDS: Benztropine Mesylate 0.5 MG TABLET 1 MG PO (20:40)
[2024-10-29 08:00] VITALS: BP 105/59; PULSE 76; RESP 18; TEMP 36.9; O2SAT 100
[2024-10-29] MEDS: metFORMIN HCl ER 500 MG TAB.ER.24H PO ×2 (08:29→20:42)
[2024-10-29] MEDS: Tamsulosin HCL 0.4 MG CAPSULE PO (08:29)
[2024-10-29] MEDS: Sertraline HCL 50 MG TABLET PO (08:30)
[2024-10-29] MEDS: Furosemide 20 MG TABLET PO (08:30)
[2024-10-29] MEDS: Memantine HCl 5 MG TABLET PO ×2 (08:30→20:43)
[2024-10-29] MEDS: Empagliflozin 10 MG TABLET PO (08:31)
[2024-10-29] MEDS: lisinopriL 20 MG TABLET PO (08:31)
[2024-10-29] MEDS: Primidone 50 MG TABLET PO ×2 (08:31→20:43)
[2024-10-29] MEDS: hydrOXYzine HCL 25 MG TABLET PO (11:22)
--- NOTE | 2024-10-29 14:05 | P.PNPSI_ITS ---
Subjective Subjective Date of Service: 10/29/24 Reason For Visit: Anxiety, mood disorder, ASD Subjective Notes: Conditional Voluntary Interim History: The nursing staff reported the patient had been compliant with medications no aggression. His Depakote level was 24 so we are changing to Depakene for compliance. We review his list of medications and we are increasing his Namenda to 5 mg p.o. b.i.d.. On interview the patient denies new symptoms less irritable. Mental Status Exam Mental Status Exam Patient Appearance: Appropriate Patient Orientation: Person and Situation Level of Consciousness: Awake and Appropriate Patient Behavior: Guarded and Passive Mood Description: Withdrawn Affect Description: Calm and Constricted Patient Cognition Impaired: Yes Ability to Follow Directions: Good Speech Pattern: Clear Hallucinations: None Delusions: Paranoid Ideation and Ideas of Reference Thought Process: Distracted and Slowed Thinking Thought Content: positive for [place] and positive for Poverty of Content Judgement: Fair Diagnostics Vital Signs (24Hr): Vital Signs - 24 hr 10/28/24 19:24 10/29/24 08:00 Temperature 97.3 F 98.4 F Pulse Rate 82 76 Respiratory Rate 18 Blood Pressure 112/64 105/59 L Pulse Oximetry 98 100 Oxygen Delivery Method Room Air Room Air BMI result Body Mass Index 27.9 Labs 10/28/24 09:10 10/28/24 09:09 Labs: Laboratory Results - last 48 hr 10/28/24 10/28/24 09:09 09:10 WBC 7.2 RBC 5.25 Hgb 16.2 Hct 47.1 MCV 89.7 MCH 30.9 MCHC 34.4 RDW 13.4 Plt Count 193 MPV 11.7 Immature Gran % (Auto) 0.4 Neut % (Auto) 66.9 Lymph % (Auto) 21.5 [place] % (Auto) 9.9 Eos % (Auto) 1.0 Baso % (Auto) 0.3 Lymph # (Auto) 1.6 [place] # (Auto) 0.7 Eos # (Auto) 0.1 Baso # (Auto) 0.0 Abs Immat Gran (auto) 0.03 Absolute Neuts (auto) 4.8 Absolute Nucleated RBC 0.000 Nucleated RBC % (auto) 0.0 Sodium 138 Potassium 4.6 Chloride 102 Carbon Dioxide 25 Anion Gap 16 BUN 22 H Creatinine 1.43 H Estim Creat Clear Calc 54.7 Estimated GFR 50 Fasting Glucose 188 H Calcium 9.8 Total Bilirubin 0.5 AST 31 ALT 32 Alkaline Phosphatase 73 Total Protein 8.0 Albumin 4.9 Valproic Acid 24.4 L Medications Medications Current Medications Acetaminophen (Acetaminophen 325 Mg Tablet) 650 mg PO Q6H PRN PRN Reason: Headache/Pain Mild Scale (1-3) Al Hydroxide/Mg Hydroxide (Magnesium Hydrox/Alum Hydrox 30 Ml Oral.Susp) 30 ml PO Q6H PRN PRN Reason: Heartburn/Nausea Aripiprazole (Aripiprazole 5 Mg Tablet) 5 mg PO BEDTIME [facility] Last Admin: 10/28/24 20:40 Dose: 5 mg Atorvastatin Calcium (Atorvastatin Calcium 80 Mg Tablet) 80 mg PO BEDTIME [facility] Last Admin: 10/28/24 20:37 Dose: 80 mg Benztropine Mesylate (Benztropine Mesylate 0.5 Mg Tablet) 1 mg PO BEDTIME [facility] Last Admin: 10/28/24 20:40 Dose: 1 mg Empagliflozin (Empagliflozin 10 Mg Tablet) 10 mg PO DAILY [facility] Last Admin: 10/29/24 08:31 Dose: 10 mg Furosemide (Furosemide 20 Mg Tablet) 20 mg PO DAILY [facility]; Protocol Last Admin: 10/29/24 08:30 Dose: 20 mg Hydroxyzine HCl (Hydroxyzine Hcl 25 Mg Tablet) 25 mg PO Q6H PRN PRN Reason: Anxiety Last Admin: 10/29/24 11:22 Dose: 25 mg Lisinopril (Lisinopril 20 Mg Tablet) 20 mg PO DAILY [facility]; Protocol Last Admin: 10/29/24 08:31 Dose: 20 mg Magnesium Hydroxide (Milk Of Magnesia 30 Ml Oral.Susp) 30 ml PO DAILY PRN PRN Reason: Constipation Memantine (Memantine Hcl 5 Mg Tablet) 5 mg PO BID [facility] Metformin HCl (Metformin Hcl Er 500 Mg Tab.Er.24h) 500 mg PO BID [facility] Last Admin: 10/29/24 08:29 Dose: 500 mg Mirtazapine (Mirtazapine 30 Mg Tablet) 30 mg PO BEDTIME [facility] Last Admin: 10/28/24 20:40 Dose: 30 mg Nicotine (Nicotine 21 Mg Patch.Td24) 21 mg TRANSDERMA DAILY PRN PRN Reason: nicotine cravings Nicotine Polacrilex (Nicotine Polacrilex 2 Mg Gum) 4 mg BUCCAL Q2H PRN PRN Reason: Nicotine Cravings Olanzapine (Olanzapine 10 Mg Tablet) 10 mg PO BEDTIME [facility] Last Admin: 10/28/24 20:37 Dose: 10 mg Olanzapine (Olanzapine 5 Mg Tablet) 5 mg PO Q4H PRN PRN Reason: agitation Last Admin: 10/26/24 07:54 Dose: 5 mg Primidone (Primidone 50 Mg Tablet) 50 mg PO BID [facility] Last Admin: 10/29/24 08:31 Dose: 50 mg Sertraline HCl (Sertraline Hcl 50 Mg Tablet) 50 mg PO DAILY [facility] Last Admin: 10/29/24 08:30 Dose: 50 mg Tamsulosin HCl (Tamsulosin Hcl 0.4 Mg Capsule) 0.4 mg PO DAILY [facility] Last Admin: 10/29/24 08:29 Dose: 0.4 mg Trazodone HCl (Trazodone Hcl 50 Mg Tablet) 50 mg PO BEDTIME MRX1 PRN PRN Reason: Insomnia Last Admin: 10/27/24 20:21 Dose: 50 mg Valproic Acid (Valproic Acid 250 Mg Capsule) 1,250 mg PO TID [facility] Allergies Allergies Allergy/AdvReac Type Severity Reaction Status Date / Time No Known Allergies Allergy Verified 10/14/24 18:14 [No Known Allergies*] Assessment & Plan Assessment & Plan (1) Mood disorder: Status: Acute Code(s): F39 - Unspecified mood [affective] disorder Plan Humza was admitted for safety and stabilization. His presentation is very similar to his last admission psychiatrically about a year ago and that is why his caregivers wanted to get ahead of things before he decompensated further. Current medications were reviewed and maintained. Contacts to be made with his treaters next week. 10/17: Continue current regimen and plans 10/19: Continue current tx plan and regime. 10/21: Memantine 5 mg daily- [facility], memory sx Abilify 2 mg daily-augment to antidepressants currently being used. 10/22 continue current tx plan -pt confused 10/23 Continue trials, regime and plan. 10/24: Continue regime and plan of care. 10/25 Abilify increased up to 5 mg. 10/26 keep on same treatment 10/27/24 continues with many complaints, no clear insight into self- 10/28 continue same treatment 10/29 increase Namenda to 5 mg p.o. b.i.d. and change Depakote to Depakene. Depakote level on 13/02 as per blood work of yesterday Reason for continued inpatient stay Substantial Risk for: inability to function, rapid decompensation and med/psych decompensation Time Spent With Patient Time: Total time managing care of this patient today __20__ minutes.
[2024-10-29 20:00] VITALS: BP 125/62; PULSE 94; TEMP 36.7; O2SAT 98
[2024-10-29] MEDS: Mirtazapine 30 MG TABLET PO (20:43)
[2024-10-29] MEDS: Atorvastatin Calcium 80 MG TABLET PO (20:43)
[2024-10-29] MEDS: ARIPiprazole 5 MG TABLET PO (20:43)
[2024-10-29] MEDS: Benztropine Mesylate 0.5 MG TABLET 1 MG PO (20:43)
[2024-10-29] MEDS: OLANZapine 10 MG TABLET PO (20:43)
[2024-10-30 08:00] VITALS: BP 122/80; PULSE 85; RESP 18; TEMP 36.6; O2SAT 98
--- NOTE | 2024-10-30 08:44 | P.PNPSI_ITS ---
Subjective Subjective Date of Service: 10/30/24 Reason For Visit: Anxiety, mood disorder, ASD Subjective Notes: Conditional Voluntary Interim History: 64 yo ongoing report that thinks not on right meds but refusing am meds except depakote- recent changes in formulation to try and get better compliance have been iffy- and patient has only been intermittently compliant - today took meds with much coaching/support- (depakote only) - depakote lvl went from 50s down to 20s last few days- His behavior has been off today throwing self on floor, choking self with hands on his own neck and swating a staff member that he then felt terribly guilty about. Medication Compliance: Intermittent Side effects from medications: No Attending Groups: Intermittent Review of Systems just low depakote lvl Medical Review of Systems: unchanged Mental Status Exam Mental Status Exam Patient Appearance: Appropriate Patient Orientation: Person, Place and Situation Level of Consciousness: Awake Patient Behavior: Restless, Resistive to Care, Invasion - Personal Space, Combative (mildly) and Impulsive Mood Description: Anxious and Apprehensive Affect Description: Labile Patient Cognition Impaired: No Ability to Follow Directions: Poor Speech Pattern: Garbled Delusions: Paranoid Ideation (? thinks he is on wrong meds) Thought Content: positive for [place] Depressive Symptoms: Increased Anxiety, Increased Irritability and Feelings of Guilt Judgement: Poor Diagnostics Vital Signs (24Hr): Vital Signs - 24 hr 10/29/24 20:00 Temperature 98.0 F Pulse Rate 94 Blood Pressure 125/62 Pulse Oximetry 98 Oxygen Delivery Method Room Air BMI result Body Mass Index 27.9 Labs 10/28/24 09:10 10/28/24 09:09 Labs: Laboratory Results - last 48 hr 10/28/24 10/28/24 09:09 09:10 WBC 7.2 RBC 5.25 Hgb 16.2 Hct 47.1 MCV 89.7 MCH 30.9 MCHC 34.4 RDW 13.4 Plt Count 193 MPV 11.7 Immature Gran % (Auto) 0.4 Neut % (Auto) 66.9 Lymph % (Auto) 21.5 [place] % (Auto) 9.9 Eos % (Auto) 1.0 Baso % (Auto) 0.3 Lymph # (Auto) 1.6 [place] # (Auto) 0.7 Eos # (Auto) 0.1 Baso # (Auto) 0.0 Abs Immat Gran (auto) 0.03 Absolute Neuts (auto) 4.8 Absolute Nucleated RBC 0.000 Nucleated RBC % (auto) 0.0 Sodium 138 Potassium 4.6 Chloride 102 Carbon Dioxide 25 Anion Gap 16 BUN 22 H Creatinine 1.43 H Estim Creat Clear Calc 54.7 Estimated GFR 50 Fasting Glucose 188 H Calcium 9.8 Total Bilirubin 0.5 AST 31 ALT 32 Alkaline Phosphatase 73 Total Protein 8.0 Albumin 4.9 Valproic Acid 24.4 L Medications Medications Current Medications Acetaminophen (Acetaminophen 325 Mg Tablet) 650 mg PO Q6H PRN PRN Reason: Headache/Pain Mild Scale (1-3) Al Hydroxide/Mg Hydroxide (Magnesium Hydrox/Alum Hydrox 30 Ml Oral.Susp) 30 ml PO Q6H PRN PRN Reason: Heartburn/Nausea Aripiprazole (Aripiprazole 5 Mg Tablet) 5 mg PO BEDTIME [facility] Last Admin: 10/29/24 20:43 Dose: 5 mg Atorvastatin Calcium (Atorvastatin Calcium 80 Mg Tablet) 80 mg PO BEDTIME [facility] Last Admin: 10/29/24 20:43 Dose: 80 mg Benztropine Mesylate (Benztropine Mesylate 0.5 Mg Tablet) 1 mg PO BEDTIME [facility] Last Admin: 10/29/24 20:43 Dose: 1 mg Empagliflozin (Empagliflozin 10 Mg Tablet) 10 mg PO DAILY [facility] Last Admin: 10/29/24 08:31 Dose: 10 mg Furosemide (Furosemide 20 Mg Tablet) 20 mg PO DAILY [facility]; Protocol Last Admin: 10/29/24 08:30 Dose: 20 mg Hydroxyzine HCl (Hydroxyzine Hcl 25 Mg Tablet) 25 mg PO Q6H PRN PRN Reason: Anxiety Last Admin: 10/29/24 11:22 Dose: 25 mg Lisinopril (Lisinopril 20 Mg Tablet) 20 mg PO DAILY [facility]; Protocol Last Admin: 10/29/24 08:31 Dose: 20 mg Magnesium Hydroxide (Milk Of Magnesia 30 Ml Oral.Susp) 30 ml PO DAILY PRN PRN Reason: Constipation Memantine (Memantine Hcl 5 Mg Tablet) 5 mg PO BID [facility] Last Admin: 10/29/24 20:43 Dose: 5 mg Metformin HCl (Metformin Hcl Er 500 Mg Tab.Er.24h) 500 mg PO BID [facility] Last Admin: 10/29/24 20:42 Dose: 500 mg Mirtazapine (Mirtazapine 30 Mg Tablet) 30 mg PO BEDTIME [facility] Last Admin: 10/29/24 20:43 Dose: 30 mg Nicotine (Nicotine 21 Mg Patch.Td24) 21 mg TRANSDERMA DAILY PRN PRN Reason: nicotine cravings Nicotine Polacrilex (Nicotine Polacrilex 2 Mg Gum) 4 mg BUCCAL Q2H PRN PRN Reason: Nicotine Cravings Olanzapine (Olanzapine 10 Mg Tablet) 10 mg PO BEDTIME [facility] Last Admin: 10/29/24 20:43 Dose: 10 mg Olanzapine (Olanzapine 5 Mg Tablet) 5 mg PO Q4H PRN PRN Reason: agitation Last Admin: 10/26/24 07:54 Dose: 5 mg Primidone (Primidone 50 Mg Tablet) 50 mg PO BID [facility] Last Admin: 10/29/24 20:43 Dose: 50 mg Sertraline HCl (Sertraline Hcl 50 Mg Tablet) 50 mg PO DAILY [facility] Last Admin: 10/29/24 08:30 Dose: 50 mg Tamsulosin HCl (Tamsulosin Hcl 0.4 Mg Capsule) 0.4 mg PO DAILY [facility] Last Admin: 10/29/24 08:29 Dose: 0.4 mg Trazodone HCl (Trazodone Hcl 50 Mg Tablet) 50 mg PO BEDTIME MRX1 PRN PRN Reason: Insomnia Last Admin: 10/27/24 20:21 Dose: 50 mg Valproic Acid (Valproic Acid 250 Mg Capsule) 1,250 mg PO TID [facility] Last Admin: 10/29/24 20:48 Dose: Not Given Allergies Allergies Allergy/AdvReac Type Severity Reaction Status Date / Time No Known Allergies Allergy Verified 10/14/24 18:14 [No Known Allergies*] Assessment & Plan Assessment & Plan (1) Mood disorder: Status: Acute Code(s): F39 - Unspecified mood [affective] disorder Plan Humza was admitted for safety and stabilization. His presentation is very similar to his last admission psychiatrically about a year ago and that is why his caregivers wanted to get ahead of things before he decompensated further. Current medications were reviewed and maintained. Contacts to be made with his treaters next week. 10/17: Continue current regimen and plans 10/19: Continue current tx plan and regime. 10/21: Memantine 5 mg daily- [facility], memory sx Abilify 2 mg daily-augment to antidepressants currently being used. 10/22 continue current tx plan -pt confused 10/23 Continue trials, regime and plan. 10/24: Continue regime and plan of care. 10/25 Abilify increased up to 5 mg. 10/26 keep on same treatment 10/27/24 continues with many complaints, no clear insight into self- 10/28 continue same treatment 10/29 increase Namenda to 5 mg p.o. b.i.d. and change Depakote to Depakene. Depakote level on 13/02 as per blood work of yesterday 10/30/24 - wi Transfer To [facility] olanzapine = continue depakene as he did take 5 capsules this am- prn olanzapine given - this afternoon for behaviors on unit- Patient educated on: medication risk/benefits Informed Consent: further education needed Reason for continued inpatient stay Substantial Risk for: harm to self, harm to others and rapid decompensation Time Spent With Patient Time: Total time managing care of this patient today ____ minutes.
[2024-10-30] MEDS: Valproic Acid 250 MG CAPSULE 1250 MG PO ×2 (09:18→14:43)
[2024-10-30] MEDS: metFORMIN HCl ER 500 MG TAB.ER.24H PO ×2 (09:21→21:27)
[2024-10-30] MEDS: Empagliflozin 10 MG TABLET PO (09:21)
[2024-10-30] MEDS: hydrOXYzine HCL 25 MG TABLET PO (15:06)
[2024-10-30] MEDS: OLANZapine 5 MG TABLET PO (15:07)
[2024-10-30 20:00] VITALS: BP 115/80; PULSE 89; RESP 18; TEMP 36.7; O2SAT 99
[2024-10-30] MEDS: OLANZapine 7.5 MG TABLET 15 MG PO (21:27)
[2024-10-30] MEDS: Memantine HCl 5 MG TABLET PO (22:43)
[2024-10-30] MEDS: Benztropine Mesylate 0.5 MG TABLET 1 MG PO (22:43)
[2024-10-30] MEDS: Mirtazapine 30 MG TABLET PO (22:44)
[2024-10-30] MEDS: Primidone 50 MG TABLET PO (22:45)
[2024-10-31 08:18] VITALS: BP 118/67; PULSE 77; RESP 18; TEMP 36.3; O2SAT 98
[2024-10-31 08:24] LABS: Valproate 46.8 mcg/mL (50.0-100.0)
[2024-10-31 08:26] LABS: Anion Gap 17 (12-20); Blood Urea Nitrogen 21 mg/dL (9-16); Calcium 8.9 mg/dL (8.4-10.2); Carbon Dioxide 22 mmol/L (22-29); Chloride 105 mmol/L (96-108); Creatinine Clr Calc Pharmacy 75.3; Estimated Glomerular Filt Rate > 60; Glucose Random 161 mg/dL (60-115); Potassium 4.6 mmol/L (3.3-5.1); Sodium 139 mmol/L (135-145)
[2024-10-31 10:29] VITALS: BP 122/71
[2024-10-31] MEDS: metFORMIN HCl ER 500 MG TAB.ER.24H PO (10:29)
[2024-10-31] MEDS: Furosemide 20 MG TABLET PO (10:29)
[2024-10-31 10:30] VITALS: BP 122/71
[2024-10-31] MEDS: lisinopriL 20 MG TABLET PO (10:30)
[2024-10-31] MEDS: Memantine HCl 5 MG TABLET PO ×2 (10:30→20:35)
[2024-10-31] MEDS: Primidone 50 MG TABLET PO (10:30)
[2024-10-31] MEDS: Tamsulosin HCL 0.4 MG CAPSULE PO (10:30)
[2024-10-31] MEDS: Sertraline HCL 50 MG TABLET PO (10:30)
[2024-10-31] MEDS: Empagliflozin 10 MG TABLET PO (10:31)
--- NOTE | 2024-10-31 12:08 | HO.PSYCHPN ---
Subjective Subjective Date of Service: 10/31/24 Reason For Visit: Anxiety, mood disorder, ASD Healthcare Proxy: Yes Medical Problems Affecting Mental Status: No Interim History: 64 yo with worsening behaviors this weekend- less copliant with doses of depakote intermittently refusing dep lvl went from 50s to 20s now in 40s- took all meds this am BUT depakote but then took afternoon dose Throwing self on floor, demanding more pants, saying others have more pants then him when walking by him- (also in pj pants) Medication Compliance: Intermittent Side effects from medications: No Attending Groups: Intermittent Review of Systems Acute medical concerns: No Medical Review of Systems: unchanged Mental Status Exam Mental Status Exam Patient Appearance: Unkempt Patient Orientation: Person and Place Level of Consciousness: Awake Patient Behavior: Resistive to Care, Invasion - Personal Space, Uncooperative and Impulsive Mood Description: Apprehensive Affect Description: Labile Speech Pattern: Clear Hallucinations: None Delusions: Paranoid Ideation Thought Process: Distracted Thought Content: positive for [place]sever[place] (on pants , on being on wrong medications) Depressive Symptoms: Increased Anxiety and Increased Irritability Abnormal Motor Activity Signs and Symptoms: Restlessness Judgement: Poor Diagnostics Vital Signs (24Hr): Vital Signs - 24 hr 10/30/24 20:00 10/31/24 08:18 10/31/24 10:29 Temperature 98.1 F 97.4 F Pulse Rate 89 77 Respiratory Rate 18 18 Blood Pressure 115/80 118/67 122/71 Pulse Oximetry 99 98 Oxygen Delivery Method Room Air Room Air 10/31/24 10:30 Temperature Pulse Rate Respiratory Rate Blood Pressure 122/71 Pulse Oximetry Oxygen Delivery Method BMI result Body Mass Index 27.9 Labs 10/28/24 09:10 10/31/24 08:04 Labs: Laboratory Results - last 48 hr 10/31/24 08:04 Sodium 139 Potassium 4.6 Chloride 105 Carbon Dioxide 22 Anion Gap 17 BUN 21 H Creatinine 1.04 Estim Creat Clear Calc 75.3 Estimated GFR > 60 Random Glucose 161 H Calcium 8.9 D Valproic Acid 46.8 L Medications Medications Current Medications Acetaminophen (Acetaminophen 325 Mg Tablet) 650 mg PO Q6H PRN PRN Reason: Headache/Pain Mild Scale (1-3) Al Hydroxide/Mg Hydroxide (Magnesium Hydrox/Alum Hydrox 30 Ml Oral.Susp) 30 ml PO Q6H PRN PRN Reason: Heartburn/Nausea Atorvastatin Calcium (Atorvastatin Calcium 80 Mg Tablet) 80 mg PO BEDTIME [facility] Last Admin: 10/30/24 21:27 Dose: Not Given Benztropine Mesylate (Benztropine Mesylate 0.5 Mg Tablet) 1 mg PO BEDTIME [facility] Last Admin: 10/30/24 22:45 Dose: Not Given Empagliflozin (Empagliflozin 10 Mg Tablet) 10 mg PO DAILY [facility] Last Admin: 10/31/24 10:31 Dose: 10 mg Furosemide (Furosemide 20 Mg Tablet) 20 mg PO DAILY [facility]; Protocol Last Admin: 10/31/24 10:29 Dose: 20 mg Hydroxyzine HCl (Hydroxyzine Hcl 25 Mg Tablet) 25 mg PO Q6H PRN PRN Reason: Anxiety Last Admin: 10/30/24 15:06 Dose: 25 mg Lisinopril (Lisinopril 20 Mg Tablet) 20 mg PO DAILY [facility]; Protocol Last Admin: 10/31/24 10:30 Dose: 20 mg Magnesium Hydroxide (Milk Of Magnesia 30 Ml Oral.Susp) 30 ml PO DAILY PRN PRN Reason: Constipation Memantine (Memantine Hcl 5 Mg Tablet) 5 mg PO BID [facility] Last Admin: 10/31/24 10:30 Dose: 5 mg Metformin HCl (Metformin Hcl Er 500 Mg Tab.Er.24h) 500 mg PO BID [facility] Last Admin: 10/31/24 10:29 Dose: 500 mg Mirtazapine (Mirtazapine 30 Mg Tablet) 30 mg PO BEDTIME [facility] Last Admin: 10/30/24 22:44 Dose: 30 mg Nicotine (Nicotine 21 Mg Patch.Td24) 21 mg TRANSDERMA DAILY PRN PRN Reason: nicotine cravings Nicotine Polacrilex (Nicotine Polacrilex 2 Mg Gum) 4 mg BUCCAL Q2H PRN PRN Reason: Nicotine Cravings Olanzapine (Olanzapine 5 Mg Tablet) 5 mg PO Q4H PRN PRN Reason: agitation Last Admin: 10/30/24 15:07 Dose: 5 mg Olanzapine (Olanzapine 7.5 Mg Tablet) 15 mg PO BEDTIME [facility] Last Admin: 10/30/24 21:27 Dose: 15 mg Primidone (Primidone 50 Mg Tablet) 50 mg PO BID [facility] Last Admin: 10/31/24 10:30 Dose: 50 mg Sertraline HCl (Sertraline Hcl 50 Mg Tablet) 50 mg PO DAILY [facility] Last Admin: 10/31/24 10:30 Dose: 50 mg Tamsulosin HCl (Tamsulosin Hcl 0.4 Mg Capsule) 0.4 mg PO DAILY [facility] Last Admin: 10/31/24 10:30 Dose: 0.4 mg Trazodone HCl (Trazodone Hcl 50 Mg Tablet) 50 mg PO BEDTIME MRX1 PRN PRN Reason: Insomnia Last Admin: 10/27/24 20:21 Dose: 50 mg Valproic Acid (Valproic Acid 250 Mg Capsule) 1,250 mg PO TID [facility] Last Admin: 10/30/24 22:50 Dose: Not Given Allergies Allergies Allergy/AdvReac Type Severity Reaction Status Date / Time No Known Allergies Allergy Verified 10/14/24 18:14 [No Known Allergies*] Assessment & Plan Assessment & Plan (1) Mood disorder: Status: Acute Code(s): F39 - Unspecified mood [affective] disorder Plan Humza was admitted for safety and stabilization. His presentation is very similar to his last admission psychiatrically about a year ago and that is why his caregivers wanted to get ahead of things before he decompensated further. Current medications were reviewed and maintained. Contacts to be made with his treaters next week. 10/17: Continue current regimen and plans 10/19: Continue current tx plan and regime. 10/21: Memantine 5 mg daily- [facility], memory sx Abilify 2 mg daily-augment to antidepressants currently being used. 10/22 continue current tx plan -pt confused 10/23 Continue trials, regime and plan. 10/24: Continue regime and plan of care. 10/25 Abilify increased up to 5 mg. 10/26 keep on same treatment 10/27/24 continues with many complaints, no clear insight into self- 10/28 continue same treatment 10/29 increase Namenda to 5 mg p.o. b.i.d. and change Depakote to Depakene. Depakote level on 13/02 as per blood work of yesterday 10/30/24 - [facility] [employer] olanzapine = continue depakene as he did take 5 capsules this am- prn olanzapine given - this afternoon for behaviors on unit- 10/31/24 wrote for liquid depakote option if refuses capsules, also got prn olanzapine for throwing self on floor Patient educated on: medication risk/benefits Informed Consent: further education needed Reason for continued inpatient stay Substantial Risk for: harm to others, inability to function and rapid decompensation Time Spent With Patient Time: Total time managing care of this patient today ____ minutes.
--- NOTE | 2024-10-31 13:28 | PC.NURSE ---
Zeferino declined 9am Depakote after many attempts of administering medication. Education of importance of medication adherence provided as well as encouragement from staff. VPA level low at 46.8. Dr. Peters notified of refusal of medication and VPA level.
[2024-10-31] MEDS: Valproic Acid 250 MG CAPSULE 1250 MG PO (14:24)
[2024-10-31 20:00] VITALS: BP 101/63; PULSE 87; RESP 18; TEMP 37.1; O2SAT 99
[2024-10-31] MEDS: Benztropine Mesylate 0.5 MG TABLET 1 MG PO (20:34)
[2024-10-31] MEDS: OLANZapine 7.5 MG TABLET 15 MG PO (20:36)
[2024-11-01 08:00] VITALS: BP 135/75; PULSE 85; TEMP 36.2; O2SAT 97
[2024-11-01] MEDS: metFORMIN HCl ER 500 MG TAB.ER.24H PO ×2 (08:57→21:36)
[2024-11-01 08:58] VITALS: BP 135/75
[2024-11-01] MEDS: Furosemide 20 MG TABLET PO (08:58)
[2024-11-01] MEDS: lisinopriL 20 MG TABLET PO (08:58)
[2024-11-01] MEDS: Sertraline HCL 50 MG TABLET PO (08:59)
[2024-11-01] MEDS: Empagliflozin 10 MG TABLET PO (09:00)
[2024-11-01] MEDS: Memantine HCl 5 MG TABLET PO (09:01)
[2024-11-01] MEDS: Valproic Acid Liquid 250 MG/5 ML SOLUTION 1250 MG PO (09:14)
[2024-11-01] MEDS: OLANZapine 5 MG TABLET PO (12:10)
[2024-11-01] MEDS: hydrOXYzine HCL 25 MG TABLET PO (12:10)
[2024-11-01] MEDS: Valproic Acid 250 MG CAPSULE 1250 MG PO (14:24)
--- NOTE | 2024-11-01 14:59 | P.PNPSI_ITS ---
Subjective Subjective Date of Service: 11/01/24 Reason For Visit: Anxiety, mood disorder, ASD Subjective Notes: Conditional Voluntary Interim History: The nursing staff reported the patient refused his Depakote he had been labile and he has refused medications. He slept 8 hours. On interview the patient denies new symptoms. We will have a family meeting next at 10:00 o'clock with the social work professor and his correction. Mental Status Exam Mental Status Exam Patient Appearance: Appropriate Patient Orientation: Person and Situation Level of Consciousness: Awake and Appropriate Patient Behavior: Guarded and Passive Mood Description: Withdrawn Affect Description: Constricted Patient Cognition Impaired: Yes Ability to Follow Directions: Good Speech Pattern: Clear Hallucinations: None Delusions: Ideas of Reference Thought Process: Distracted and Slowed Thinking Thought Content: positive for [place] and positive for Poverty of Content Judgement: Poor Diagnostics Vital Signs (24Hr): Vital Signs - 24 hr 10/31/24 20:00 11/01/24 08:00 11/01/24 08:58 Temperature 98.8 F 97.1 F Pulse Rate 87 85 Respiratory Rate 18 Blood Pressure 101/63 135/75 135/75 Pulse Oximetry 99 97 Oxygen Delivery Method Room Air Room Air 11/01/24 08:58 Temperature Pulse Rate Respiratory Rate Blood Pressure 135/75 Pulse Oximetry Oxygen Delivery Method BMI result Body Mass Index 27.9 Labs 10/28/24 09:10 10/31/24 08:04 Labs: Laboratory Results - last 48 hr 10/31/24 08:04 Sodium 139 Potassium 4.6 Chloride 105 Carbon Dioxide 22 Anion Gap 17 BUN 21 H Creatinine 1.04 Estim Creat Clear Calc 75.3 Estimated GFR > 60 Random Glucose 161 H Calcium 8.9 D Valproic Acid 46.8 L Medications Medications Current Medications Acetaminophen (Acetaminophen 325 Mg Tablet) 650 mg PO Q6H PRN PRN Reason: Headache/Pain Mild Scale (1-3) Al Hydroxide/Mg Hydroxide (Magnesium Hydrox/Alum Hydrox 30 Ml Oral.Susp) 30 ml PO Q6H PRN PRN Reason: Heartburn/Nausea Atorvastatin Calcium (Atorvastatin Calcium 80 Mg Tablet) 80 mg PO BEDTIME [facility] Last Admin: 10/31/24 20:54 Dose: Not Given Benztropine Mesylate (Benztropine Mesylate 0.5 Mg Tablet) 1 mg PO BEDTIME [facility] Last Admin: 10/31/24 20:34 Dose: 1 mg Empagliflozin (Empagliflozin 10 Mg Tablet) 10 mg PO DAILY [facility] Last Admin: 11/01/24 09:00 Dose: 10 mg Furosemide (Furosemide 20 Mg Tablet) 20 mg PO DAILY [facility]; Protocol Last Admin: 11/01/24 08:58 Dose: 20 mg Hydroxyzine HCl (Hydroxyzine Hcl 25 Mg Tablet) 25 mg PO Q6H PRN PRN Reason: Anxiety Last Admin: 11/01/24 12:10 Dose: 25 mg Lisinopril (Lisinopril 20 Mg Tablet) 20 mg PO DAILY [facility]; Protocol Last Admin: 11/01/24 08:58 Dose: 20 mg Magnesium Hydroxide (Milk Of Magnesia 30 Ml Oral.Susp) 30 ml PO DAILY PRN PRN Reason: Constipation Memantine (Memantine Hcl 5 Mg Tablet) 5 mg PO BID [facility] Last Admin: 11/01/24 09:01 Dose: 5 mg Metformin HCl (Metformin Hcl Er 500 Mg Tab.Er.24h) 500 mg PO BID [facility] Last Admin: 11/01/24 08:57 Dose: 500 mg Mirtazapine (Mirtazapine 30 Mg Tablet) 30 mg PO BEDTIME [facility] Last Admin: 10/31/24 20:58 Dose: Not Given Nicotine (Nicotine 21 Mg Patch.Td24) 21 mg TRANSDERMA DAILY PRN PRN Reason: nicotine cravings Nicotine Polacrilex (Nicotine Polacrilex 2 Mg Gum) 4 mg BUCCAL Q2H PRN PRN Reason: Nicotine Cravings Olanzapine (Olanzapine 5 Mg Tablet) 5 mg PO Q4H PRN PRN Reason: agitation Last Admin: 11/01/24 12:10 Dose: 5 mg Olanzapine (Olanzapine 7.5 Mg Tablet) 15 mg PO BEDTIME [facility] Last Admin: 10/31/24 20:36 Dose: 15 mg Primidone (Primidone 50 Mg Tablet) 50 mg PO BID [facility] Last Admin: 11/01/24 09:02 Dose: Not Given Sertraline HCl (Sertraline Hcl 50 Mg Tablet) 50 mg PO DAILY [facility] Last Admin: 11/01/24 08:59 Dose: 50 mg Tamsulosin HCl (Tamsulosin Hcl 0.4 Mg Capsule) 0.4 mg PO DAILY [facility] Last Admin: 11/01/24 09:02 Dose: Not Given Trazodone HCl (Trazodone Hcl 50 Mg Tablet) 50 mg PO BEDTIME MRX1 PRN PRN Reason: Insomnia Last Admin: 10/27/24 20:21 Dose: 50 mg Valproic Acid (Valproic Acid 250 Mg Capsule) 1,250 mg PO TID [facility] Last Admin: 11/01/24 14:24 Dose: 1,250 mg Valproic Acid (Valproic Acid Liquid 250 Mg/5 Ml Solution) 1,250 mg PO TID PRN PRN Reason: refusal of depakene caps Last Admin: 11/01/24 09:14 Dose: 1,250 mg Allergies Allergies Allergy/AdvReac Type Severity Reaction Status Date / Time No Known Allergies Allergy Verified 10/14/24 18:14 [No Known Allergies*] Assessment & Plan Assessment & Plan (1) Mood disorder: Status: Acute Code(s): F39 - Unspecified mood [affective] disorder Plan Humza was admitted for safety and stabilization. His presentation is very similar to his last admission psychiatrically about a year ago and that is why his caregivers wanted to get ahead of things before he decompensated further. Current medications were reviewed and maintained. Contacts to be made with his treaters next week. 10/17: Continue current regimen and plans 10/19: Continue current tx plan and regime. 10/21: Memantine 5 mg daily- [facility], memory sx Abilify 2 mg daily-augment to antidepressants currently being used. 10/22 continue current tx plan -pt confused 10/23 Continue trials, regime and plan. 10/24: Continue regime and plan of care. 10/25 Abilify increased up to 5 mg. 10/26 keep on same treatment 10/27/24 continues with many complaints, no clear insight into self- 10/28 continue same treatment 10/29 increase Namenda to 5 mg p.o. b.i.d. and change Depakote to Depakene. Depakote level on 13/02 as per blood work of yesterday 10/30/24 - [place] [employer] olanzapine = continue depakene as he did take 5 capsules this am- prn olanzapine given - this afternoon for behaviors on unit- 10/31/24 wrote for liquid depakote option if refuses capsules, also got prn olanzapine for throwing self on floor 11/01 keep same treatment Reason for continued inpatient stay Substantial Risk for: inability to function, rapid decompensation and med/psych decompensation Time Spent With Patient Time: Total time managing care of this patient today __20__ minutes.
[2024-11-01 20:00] VITALS: BP 112/71; PULSE 90; RESP 18; TEMP 36; O2SAT 99
[2024-11-01] MEDS: OLANZapine 7.5 MG TABLET 15 MG PO (21:36)
[2024-11-01] MEDS: Primidone 50 MG TABLET PO (21:37)
[2024-11-01] MEDS: Benztropine Mesylate 0.5 MG TABLET 1 MG PO (21:38)
[2024-11-02 08:19] VITALS: BP 122/76; PULSE 71; RESP 18; TEMP 36.2; O2SAT 98
[2024-11-02] MEDS: Valproic Acid 250 MG CAPSULE 1250 MG PO ×2 (08:50→14:10)
[2024-11-02] MEDS: Sertraline HCL 50 MG TABLET PO (08:50)
[2024-11-02] MEDS: Memantine HCl 5 MG TABLET PO (08:50)
[2024-11-02] MEDS: metFORMIN HCl ER 500 MG TAB.ER.24H PO ×2 (08:51→19:58)
[2024-11-02] MEDS: Primidone 50 MG TABLET PO (08:51)
[2024-11-02] MEDS: Furosemide 20 MG TABLET PO (08:51)
[2024-11-02] MEDS: Tamsulosin HCL 0.4 MG CAPSULE PO (08:51)
[2024-11-02] MEDS: Empagliflozin 10 MG TABLET PO (08:52)
[2024-11-02] MEDS: lisinopriL 20 MG TABLET PO (08:52)
--- NOTE | 2024-11-02 14:55 | HO.PSYCHPN ---
Subjective Subjective Date of Service: 11/02/24 Reason For Visit: Anxiety, mood disorder, ASD Subjective Notes: Conditional Voluntary Interim History: The nursing staff reported the patient had poor impulse control he had been agitated at times. Today in the morning he reported that he was not having a good day. We decided to increase his Zyprexa to 20 mg p.o. q.h.s. to target mood lability. Mental Status Exam Mental Status Exam Patient Appearance: Appropriate Patient Orientation: Person and Situation Level of Consciousness: Restless Patient Behavior: Guarded Mood Description: Suspicious Affect Description: Labile Patient Cognition Impaired: Yes Ability to Follow Directions: Good Speech Pattern: Impoverished Hallucinations: None Delusions: Ideas of Reference Thought Process: Distracted and Slowed Thinking Thought Content: positive for [place] and positive for Poverty of Content Judgement: Poor Diagnostics Vital Signs (24Hr): Vital Signs - 24 hr 11/01/24 20:00 11/02/24 08:19 Temperature 96.8 F 97.1 F Pulse Rate 90 71 Respiratory Rate 18 18 Blood Pressure 112/71 122/76 Pulse Oximetry 99 98 Oxygen Delivery Method Room Air Room Air BMI result Body Mass Index 27.9 Labs 10/28/24 09:10 10/31/24 08:04 Medications Medications Current Medications Acetaminophen (Acetaminophen 325 Mg Tablet) 650 mg PO Q6H PRN PRN Reason: Headache/Pain Mild Scale (1-3) Al Hydroxide/Mg Hydroxide (Magnesium Hydrox/Alum Hydrox 30 Ml Oral.Susp) 30 ml PO Q6H PRN PRN Reason: Heartburn/Nausea Atorvastatin Calcium (Atorvastatin Calcium 80 Mg Tablet) 80 mg PO BEDTIME [facility] Last Admin: 11/01/24 21:33 Dose: Not Given Benztropine Mesylate (Benztropine Mesylate 0.5 Mg Tablet) 1 mg PO BEDTIME [facility] Last Admin: 11/01/24 21:38 Dose: 1 mg Empagliflozin (Empagliflozin 10 Mg Tablet) 10 mg PO DAILY [facility] Last Admin: 11/02/24 08:52 Dose: 10 mg Furosemide (Furosemide 20 Mg Tablet) 20 mg PO DAILY [facility]; Protocol Last Admin: 11/02/24 08:51 Dose: 20 mg Hydroxyzine HCl (Hydroxyzine Hcl 25 Mg Tablet) 25 mg PO Q6H PRN PRN Reason: Anxiety Last Admin: 11/01/24 12:10 Dose: 25 mg Lisinopril (Lisinopril 20 Mg Tablet) 20 mg PO DAILY [facility]; Protocol Last Admin: 11/02/24 08:52 Dose: 20 mg Magnesium Hydroxide (Milk Of Magnesia 30 Ml Oral.Susp) 30 ml PO DAILY PRN PRN Reason: Constipation Memantine (Memantine Hcl 5 Mg Tablet) 5 mg PO BID [facility] Last Admin: 11/02/24 08:50 Dose: 5 mg Metformin HCl (Metformin Hcl Er 500 Mg Tab.Er.24h) 500 mg PO BID [facility] Last Admin: 11/02/24 08:51 Dose: 500 mg Mirtazapine (Mirtazapine 30 Mg Tablet) 30 mg PO BEDTIME [facility] Last Admin: 11/01/24 21:36 Dose: Not Given Nicotine (Nicotine 21 Mg Patch.Td24) 21 mg TRANSDERMA DAILY PRN PRN Reason: nicotine cravings Nicotine Polacrilex (Nicotine Polacrilex 2 Mg Gum) 4 mg BUCCAL Q2H PRN PRN Reason: Nicotine Cravings Olanzapine (Olanzapine 5 Mg Tablet) 5 mg PO Q4H PRN PRN Reason: agitation Last Admin: 11/01/24 12:10 Dose: 5 mg Olanzapine (Olanzapine 10 Mg Tablet) 20 mg PO BEDTIME [facility] Primidone (Primidone 50 Mg Tablet) 50 mg PO BID [facility] Last Admin: 11/02/24 08:51 Dose: 50 mg Sertraline HCl (Sertraline Hcl 50 Mg Tablet) 50 mg PO DAILY [facility] Last Admin: 11/02/24 08:50 Dose: 50 mg Tamsulosin HCl (Tamsulosin Hcl 0.4 Mg Capsule) 0.4 mg PO DAILY [facility] Last Admin: 11/02/24 08:51 Dose: 0.4 mg Trazodone HCl (Trazodone Hcl 50 Mg Tablet) 50 mg PO BEDTIME MRX1 PRN PRN Reason: Insomnia Last Admin: 10/27/24 20:21 Dose: 50 mg Valproic Acid (Valproic Acid 250 Mg Capsule) 1,250 mg PO TID [facility] Last Admin: 11/02/24 14:10 Dose: 1,250 mg Valproic Acid (Valproic Acid Liquid 250 Mg/5 Ml Solution) 1,250 mg PO TID PRN PRN Reason: refusal of depakene caps Last Admin: 11/01/24 09:14 Dose: 1,250 mg Allergies Allergies Allergy/AdvReac Type Severity Reaction Status Date / Time No Known Allergies Allergy Verified 10/14/24 18:14 [No Known Allergies*] Assessment & Plan Assessment & Plan (1) Mood disorder: Status: Acute Code(s): F39 - Unspecified mood [affective] disorder Plan Humza was admitted for safety and stabilization. His presentation is very similar to his last admission psychiatrically about a year ago and that is why his caregivers wanted to get ahead of things before he decompensated further. Current medications were reviewed and maintained. Contacts to be made with his treaters next week. 10/17: Continue current regimen and plans 10/19: Continue current tx plan and regime. 10/21: Memantine 5 mg daily- [facility], memory sx Abilify 2 mg daily-augment to antidepressants currently being used. 10/22 continue current tx plan -pt confused 10/23 Continue trials, regime and plan. 10/24: Continue regime and plan of care. 10/25 Abilify increased up to 5 mg. 10/26 keep on same treatment 10/27/24 continues with many complaints, no clear insight into self- 10/28 continue same treatment 10/29 increase Namenda to 5 mg p.o. b.i.d. and change Depakote to Depakene. Depakote level on 13/02 as per blood work of yesterday 10/30/24 - [facility] [employer] olanzapine = continue depakene as he did take 5 capsules this am- prn olanzapine given - this afternoon for behaviors on unit- 10/31/24 wrote for liquid depakote option if refuses capsules, also got prn olanzapine for throwing self on floor 11/01 keep same treatment 11/02 increase Zyprexa to 20 mg p.o. q.h.s. Reason for continued inpatient stay Substantial Risk for: inability to function, rapid decompensation and med/psych decompensation Time Spent With Patient Time: Total time managing care of this patient today __20__ minutes.
[2024-11-02] MEDS: OLANZapine 5 MG TABLET PO (17:17)
[2024-11-02] MEDS: hydrOXYzine HCL 25 MG TABLET PO (17:17)
[2024-11-02 20:00] VITALS: BP 112/62; PULSE 107; RESP 16; TEMP 36.3; O2SAT 97
[2024-11-03 08:00] VITALS: BP 153/87; PULSE 85; RESP 18; TEMP 36.5; O2SAT 99
[2024-11-03] MEDS: Valproic Acid 250 MG CAPSULE 1250 MG PO ×2 (08:54→14:14)
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
[2024-11-03] MEDS: hydrOXYzine HCL 25 MG TABLET PO (15:49)
[2024-11-03] MEDS: OLANZapine 5 MG TABLET PO (15:49)
[2024-11-03 20:00] VITALS: BP 125/89; PULSE 87; RESP 17; TEMP 36.2; O2SAT 100
[2024-11-03] MEDS: OLANZapine 10 MG TABLET 20 MG PO (22:03)
[2024-11-03] MEDS: Benztropine Mesylate 0.5 MG TABLET 1 MG PO (22:03)
[2024-11-03] MEDS: Memantine HCl 5 MG TABLET PO (22:04)
[2024-11-03] MEDS: Mirtazapine 30 MG TABLET PO (22:04)
[2024-11-03] MEDS: Primidone 50 MG TABLET PO (22:04)
[2024-11-03] MEDS: metFORMIN HCl ER 500 MG TAB.ER.24H PO (22:04)
[2024-11-04 08:00] VITALS: BP 135/75; PULSE 80; RESP 18; TEMP 36.1; O2SAT 98
[2024-11-04 08:26] LABS: Creatinine Clr Calc Pharmacy 86.1; Estimated Glomerular Filt Rate > 60
[2024-11-04] MEDS: Sertraline HCL 50 MG TABLET PO (08:39)
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
[2024-11-05 08:00] VITALS: BP 140/92; PULSE 87; RESP 18; TEMP 36; O2SAT 99
--- NOTE | 2024-11-05 15:35 | P.PNPSI_ITS ---
Subjective Subjective Date of Service: 11/05/24 Reason For Visit: Anxiety, mood disorder, ASD Subjective Notes: Conditional Voluntary Interim History: The nursing staff reported the patient had been aggressive, he has refused his medications in the morning. Yesterday we had a long family meeting and we decided to change Depakote to Trileptal. On interview the patient remains labile. Mental Status Exam Mental Status Exam Patient Appearance: Appropriate Patient Orientation: Person and Situation Level of Consciousness: Awake and Appropriate Patient Behavior: Guarded and Passive Mood Description: Withdrawn Affect Description: Constricted Patient Cognition Impaired: Yes Ability to Follow Directions: Good Speech Pattern: Clear Hallucinations: None Delusions: Paranoid Ideation and Ideas of Reference Thought Process: Distracted and Slowed Thinking Thought Content: positive for [place] and positive for Poverty of Content Judgement: Poor Diagnostics Vital Signs (24Hr): Vital Signs - 24 hr 11/05/24 08:00 Temperature 96.8 F Pulse Rate 87 Respiratory Rate 18 Blood Pressure 140/92 H Pulse Oximetry 99 Oxygen Delivery Method Room Air BMI result Body Mass Index 27.9 Labs 10/28/24 09:10 11/04/24 07:36 Labs: Laboratory Results - last 48 hr 11/04/24 07:36 Creatinine 0.91 Estim Creat Clear Calc 86.1 Estimated GFR > 60 Medications Medications Current Medications Acetaminophen (Acetaminophen 325 Mg Tablet) 650 mg PO Q6H PRN PRN Reason: Headache/Pain Mild Scale (1-3) Al Hydroxide/Mg Hydroxide (Magnesium Hydrox/Alum Hydrox 30 Ml Oral.Susp) 30 ml PO Q6H PRN PRN Reason: Heartburn/Nausea Atorvastatin Calcium (Atorvastatin Calcium 80 Mg Tablet) 80 mg PO BEDTIME [facility] Last Admin: 11/04/24 23:00 Dose: Not Given Benztropine Mesylate (Benztropine Mesylate 0.5 Mg Tablet) 1 mg PO BEDTIME [facility] Last Admin: 11/04/24 23:00 Dose: Not Given Empagliflozin (Empagliflozin 10 Mg Tablet) 10 mg PO DAILY [facility] Last Admin: 11/05/24 08:56 Dose: Not Given Furosemide (Furosemide 20 Mg Tablet) 20 mg PO DAILY [facility]; Protocol Last Admin: 11/05/24 08:56 Dose: Not Given Hydroxyzine HCl (Hydroxyzine Hcl 25 Mg Tablet) 25 mg PO Q6H PRN PRN Reason: Anxiety Last Admin: 11/03/24 15:49 Dose: 25 mg Lisinopril (Lisinopril 20 Mg Tablet) 20 mg PO DAILY [facility]; Protocol Last Admin: 11/05/24 08:56 Dose: Not Given Magnesium Hydroxide (Milk Of Magnesia 30 Ml Oral.Susp) 30 ml PO DAILY PRN PRN Reason: Constipation Memantine (Memantine Hcl 5 Mg Tablet) 5 mg PO BID [facility] Last Admin: 11/05/24 08:57 Dose: Not Given Metformin HCl (Metformin Hcl Er 500 Mg Tab.Er.24h) 500 mg PO BID [facility] Last Admin: 11/05/24 08:57 Dose: Not Given Mirtazapine (Mirtazapine 30 Mg Tablet) 30 mg PO BEDTIME [facility] Last Admin: 11/04/24 23:00 Dose: Not Given Nicotine (Nicotine 21 Mg Patch.Td24) 21 mg TRANSDERMA DAILY PRN PRN Reason: nicotine cravings Nicotine Polacrilex (Nicotine Polacrilex 2 Mg Gum) 4 mg BUCCAL Q2H PRN PRN Reason: Nicotine Cravings Olanzapine (Olanzapine 5 Mg Tablet) 5 mg PO Q4H PRN PRN Reason: agitation Last Admin: 11/03/24 15:49 Dose: 5 mg Olanzapine (Olanzapine 10 Mg Tablet) 20 mg PO BEDTIME [facility] Last Admin: 11/04/24 23:00 Dose: Not Given Oxcarbazepine (Oxcarbazepine 300 Mg Tablet) 300 mg PO BID [facility] Last Admin: 11/05/24 08:57 Dose: Not Given Primidone (Primidone 50 Mg Tablet) 50 mg PO BID [facility] Last Admin: 11/05/24 08:57 Dose: Not Given Sertraline HCl (Sertraline Hcl 50 Mg Tablet) 50 mg PO DAILY [facility] Last Admin: 11/05/24 08:57 Dose: Not Given Tamsulosin HCl (Tamsulosin Hcl 0.4 Mg Capsule) 0.4 mg PO DAILY [facility] Last Admin: 11/05/24 08:57 Dose: Not Given Trazodone HCl (Trazodone Hcl 50 Mg Tablet) 50 mg PO BEDTIME MRX1 PRN PRN Reason: Insomnia Last Admin: 10/27/24 20:21 Dose: 50 mg Allergies Allergies Allergy/AdvReac Type Severity Reaction Status Date / Time No Known Allergies Allergy Verified 10/14/24 18:14 [No Known Allergies*] Assessment & Plan Assessment & Plan (1) Mood disorder: Status: Acute Code(s): F39 - Unspecified mood [affective] disorder Plan Humza was admitted for safety and stabilization. His presentation is very similar to his last admission psychiatrically about a year ago and that is why his caregivers wanted to get ahead of things before he decompensated further. Current medications were reviewed and maintained. Contacts to be made with his treaters next week. 10/17: Continue current regimen and plans 10/19: Continue current tx plan and regime. 10/21: Memantine 5 mg daily- [facility], memory sx Abilify 2 mg daily-augment to antidepressants currently being used. 10/22 continue current tx plan -pt confused 10/23 Continue trials, regime and plan. 10/24: Continue regime and plan of care. 10/25 Abilify increased up to 5 mg. 10/26 keep on same treatment 10/27/24 continues with many complaints, no clear insight into self- 10/28 continue same treatment 10/29 increase Namenda to 5 mg p.o. b.i.d. and change Depakote to Depakene. Depakote level on 13/02 as per blood work of yesterday 10/30/24 - [facility] [employer] olanzapine = continue depakene as he did take 5 capsules this am- prn olanzapine given - this afternoon for behaviors on unit- 10/31/24 wrote for liquid depakote option if refuses capsules, also got prn olanzapine for throwing self on floor 11/01 keep same treatment 11/02 increase Zyprexa to 20 mg p.o. q.h.s. 11/03 keep same treatment. 11/04 discontinue Depakote and start Trileptal 300 mg p.o. b.i.d.. Her healthcare proxy will bring a copy of that we are going to invoke it Reason for continued inpatient stay Substantial Risk for: inability to function, rapid decompensation and med/psych decompensation Time Spent With Patient Time: Total time managing care of this patient today _20___ minutes.
[2024-11-05 20:00] VITALS: BP 134/83; PULSE 73; RESP 16; TEMP 36.8; O2SAT 99
[2024-11-06] MEDS: hydrOXYzine HCL 25 MG TABLET PO (01:45)
[2024-11-06] MEDS: traZODone HCL 50 MG TABLET PO (01:45)
[2024-11-06 07:55] VITALS: BP 149/85; PULSE 71; RESP 18; TEMP 36.4; O2SAT 98
[2024-11-06] MEDS: OLANZapine 10 MG VIAL IM ×2 (10:40→17:53)
[2024-11-06] MEDS: LORazepam 2 MG/ML VIAL 1 MG IM ×2 (10:41→17:55)
[2024-11-06 10:53] VITALS: BP 123/79; PULSE 90; RESP 18; TEMP 36.8; O2SAT 97
[2024-11-06 11:08] VITALS: BP 120/80; PULSE 83; RESP 18; TEMP 36.7; O2SAT 96
[2024-11-06 11:23] VITALS: RESP 18
[2024-11-06 11:38] VITALS: RESP 18
[2024-11-06 11:39] VITALS: RESP 18
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
--- NOTE | 2024-11-06 13:38 | P.PNPSI_ITS ---
Subjective Subjective Date of Service: 11/06/24 Reason For Visit: Anxiety, mood disorder, ASD Subjective Notes: Conditional Voluntary Interim History: Pt threatening and attempting to swing at staff in the morning, requiring IM olanzapine and ativan. He was later calmer. He is repetitive, asking for staff and if demands not complete as he wants he is likely to act out. He appears anxious, restless. Needs reassurance. He continues to decline medications at times. Medication Compliance: Intermittent Review of Systems Review of Systems Denies Yes all other systems are reviewed and are negative and Unobtainable due to mental status Mental Status Exam Mental Status Exam Patient Appearance: Appropriate Patient Orientation: Person and Situation Level of Consciousness: Awake and Appropriate Patient Behavior: Guarded and Passive Mood Description: Withdrawn Affect Description: Constricted Patient Cognition Impaired: Yes Ability to Follow Directions: Good Speech Pattern: Clear Memory Description: Remote Impaired, Immediate Impaired and Recent Impaired Diagnostics Vital Signs (24Hr): Vital Signs - 24 hr 11/05/24 20:00 11/06/24 07:55 11/06/24 10:53 Temperature 98.2 F 97.5 F 98.3 F Pulse Rate 73 71 90 Respiratory Rate 16 18 18 Blood Pressure 134/83 149/85 H 123/79 Pulse Oximetry 99 98 97 Oxygen Delivery Method Room Air Room Air 11/06/24 11:08 11/06/24 11:23 11/06/24 11:38 Temperature 98.1 F Pulse Rate 83 Respiratory Rate 18 18 18 Blood Pressure 120/80 Pulse Oximetry 96 Oxygen Delivery Method Room Air 11/06/24 11:39 Temperature Pulse Rate Respiratory Rate 18 Blood Pressure Pulse Oximetry Oxygen Delivery Method BMI result Body Mass Index 27.9 Labs 10/28/24 09:10 11/04/24 07:36 Medications Medications Current Medications Acetaminophen (Acetaminophen 325 Mg Tablet) 650 mg PO Q6H PRN PRN Reason: Headache/Pain Mild Scale (1-3) Al Hydroxide/Mg Hydroxide (Magnesium Hydrox/Alum Hydrox 30 Ml Oral.Susp) 30 ml PO Q6H PRN PRN Reason: Heartburn/Nausea Atorvastatin Calcium (Atorvastatin Calcium 80 Mg Tablet) 80 mg PO BEDTIME [facility] Last Admin: 11/06/24 03:58 Dose: Not Given Benztropine Mesylate (Benztropine Mesylate 0.5 Mg Tablet) 1 mg PO BEDTIME [facility] Last Admin: 11/06/24 03:58 Dose: Not Given Empagliflozin (Empagliflozin 10 Mg Tablet) 10 mg PO DAILY [facility] Last Admin: 11/06/24 09:33 Dose: Not Given Furosemide (Furosemide 20 Mg Tablet) 20 mg PO DAILY [facility]; Protocol Last Admin: 11/06/24 09:33 Dose: Not Given Hydroxyzine HCl (Hydroxyzine Hcl 25 Mg Tablet) 25 mg PO Q6H PRN PRN Reason: Anxiety Last Admin: 11/06/24 01:45 Dose: 25 mg Lisinopril (Lisinopril 20 Mg Tablet) 20 mg PO DAILY [facility]; Protocol Last Admin: 11/06/24 09:33 Dose: Not Given Magnesium Hydroxide (Milk Of Magnesia 30 Ml Oral.Susp) 30 ml PO DAILY PRN PRN Reason: Constipation Memantine (Memantine Hcl 5 Mg Tablet) 5 mg PO BID [facility] Last Admin: 11/06/24 09:33 Dose: Not Given Metformin HCl (Metformin Hcl Er 500 Mg Tab.Er.24h) 500 mg PO BID [facility] Last Admin: 11/06/24 09:33 Dose: Not Given Mirtazapine (Mirtazapine 30 Mg Tablet) 30 mg PO BEDTIME [facility] Last Admin: 11/06/24 03:58 Dose: Not Given Nicotine (Nicotine 21 Mg Patch.Td24) 21 mg TRANSDERMA DAILY PRN PRN Reason: nicotine cravings Nicotine Polacrilex (Nicotine Polacrilex 2 Mg Gum) 4 mg BUCCAL Q2H PRN PRN Reason: Nicotine Cravings Olanzapine (Olanzapine 5 Mg Tablet) 5 mg PO Q4H PRN PRN Reason: agitation Last Admin: 11/03/24 15:49 Dose: 5 mg Olanzapine (Olanzapine 10 Mg Tablet) 20 mg PO BEDTIME [facility] Last Admin: 11/06/24 03:59 Dose: Not Given Oxcarbazepine (Oxcarbazepine 300 Mg Tablet) 300 mg PO BID [facility] Last Admin: 11/06/24 09:33 Dose: Not Given Primidone (Primidone 50 Mg Tablet) 50 mg PO BID [facility] Last Admin: 11/06/24 09:33 Dose: Not Given Sertraline HCl (Sertraline Hcl 50 Mg Tablet) 50 mg PO DAILY [facility] Last Admin: 11/06/24 09:33 Dose: Not Given Tamsulosin HCl (Tamsulosin Hcl 0.4 Mg Capsule) 0.4 mg PO DAILY [facility] Last Admin: 11/06/24 09:33 Dose: Not Given Trazodone HCl (Trazodone Hcl 50 Mg Tablet) 50 mg PO BEDTIME MRX1 PRN PRN Reason: Insomnia Last Admin: 11/06/24 01:45 Dose: 50 mg Allergies Allergies Allergy/AdvReac Type Severity Reaction Status Date / Time No Known Allergies Allergy Verified 10/14/24 18:14 [No Known Allergies*] Assessment & Plan Assessment & Plan (1) Mood disorder: Status: Acute Code(s): F39 - Unspecified mood [affective] disorder Plan Humza was admitted for safety and stabilization. His presentation is very similar to his last admission psychiatrically about a year ago and that is why his caregivers wanted to get ahead of things before he decompensated further. Current medications were reviewed and maintained. Contacts to be made with his treaters next week. 10/17: Continue current regimen and plans 10/19: Continue current tx plan and regime. 10/21: Memantine 5 mg daily- [facility], memory sx Abilify 2 mg daily-augment to antidepressants currently being used. 10/22 continue current tx plan -pt confused 10/23 Continue trials, regime and plan. 10/24: Continue regime and plan of care. 10/25 Abilify increased up to 5 mg. 10/26 keep on same treatment 10/27/24 continues with many complaints, no clear insight into self- 10/28 continue same treatment 10/29 increase Namenda to 5 mg p.o. b.i.d. and change Depakote to Depakene. Depakote level on 13/02 as per blood work of yesterday 10/30/24 - [place] [facility] = continue depakene as he did take 5 capsules this am- prn olanzapine given - this afternoon for behaviors on unit- 10/31/24 wrote for liquid depakote option if refuses capsules, also got prn olanzapine for throwing self on floor 11/01 keep same treatment 11/02 increase Zyprexa to 20 mg p.o. q.h.s. 11/03 keep same treatment. 11/04 discontinue Depakote and start Trileptal 300 mg p.o. b.i.d.. Her healthcare proxy will bring a copy of that we are going to invoke it 1/11 increase olanzapine to 20mg po qhs and 10mg po daily. Reason for continued inpatient stay Substantial Risk for: inability to function Time Spent With Patient Time: Total time managing care of this patient today ____ minutes.
--- NOTE | 2024-11-06 14:15 | PC.NURSE ---
Humza declined morning medications despite education and encouragement by this publications writer. Mayda Kevin NP notified.
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
[2024-11-07 08:00] VITALS: BP 122/70; PULSE 72; RESP 18; TEMP 36.4; O2SAT 98
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
--- NOTE | 2024-11-07 18:17 | PC.NURSE ---
Patient was irritable and aggressive towards staff, declined all scheduled medications, posturing and grabbing his neck, security called in and patient accepted PRN Olanzapine 10mg, later told contract writer that the medication was a wrong one, threatening to hit, code assist called but cancelled as Patient willingly walked to his room and lay in bed.
[2024-11-07 20:00] VITALS: BP 142/90; PULSE 80; RESP 18; TEMP 36.4; O2SAT 100
[2024-11-07] MEDS: traZODone HCL 50 MG TABLET PO (22:07)
[2024-11-08 07:59] VITALS: RESP 18
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
[2024-11-08] MEDS: OLANZapine 10 MG VIAL IM ×2 (10:37→17:29)
[2024-11-08] MEDS: LORazepam 2 MG/ML VIAL IM ×2 (10:37→17:28)
[2024-11-08 11:22] VITALS: BP 130/86; PULSE 89; RESP 18; TEMP 36.6
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
[2024-11-09] MEDS: LORazepam 2 MG/ML VIAL IM ×2 (10:23→15:50)
[2024-11-09] MEDS: OLANZapine 10 MG VIAL 20 MG IM ×2 (10:25→15:50)
[2024-11-09 10:35] VITALS: BP 133/91; PULSE 102; RESP 18; TEMP 36.8; O2SAT 98
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
[2024-11-09] MEDS: OLANZapine 5 MG TABLET PO (15:21)
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
[2024-11-09 20:00] VITALS: BP 162/90; PULSE 71; TEMP 35.8; O2SAT 100
[2024-11-10 08:00] VITALS: BP 140/83; PULSE 90; RESP 18; TEMP 36.4; O2SAT 97
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
--- NOTE | 2024-11-10 11:41 | HO.BHRESTREX ---
Behavioral Restraint Exam Behavioral Health Restraint Exam Type of Restraint: Medication Reason for Restraint: Substantial Risk and Substantial Risk of Harm to Others Medical Concerns for Restraint: No medical concerns, pt w/o acute inj / no noted resp/VS abnormalities Behavioral Assessment / Plan: No further behavioral concerns, continue current plan. Comment: Late entry for 11/08/24. Patient examined at 18:15.
--- NOTE | 2024-11-10 11:43 | P.PNPSI_ITS ---
Subjective Subjective Date of Service: 11/10/24 Reason For Visit: Anxiety, mood disorder, ASD Subjective Notes: Conditional Voluntary Healthcare Proxy: Yes Interim History: The nursing staff reported that the patient had been combative yesterday, he needed to be restrained twice. He also has refused to take his medications. Today in the morning he refused his medications and he had been isolative. On interview the patient denies new symptoms he looks grossly disorganized. The patient had been refusing his medications, we are going to invoke his healthcare proxy an affirmed it legally. Mental Status Exam Mental Status Exam Patient Appearance: Unkempt Patient Orientation: Person Level of Consciousness: Awake Patient Behavior: Anxious Mood Description: Withdrawn Affect Description: Labile Patient Cognition Impaired: Yes Ability to Follow Directions: Fair Speech Pattern: Impoverished Hallucinations: None Delusions: Ideas of Reference Thought Process: Distracted and Slowed Thinking Thought Content: positive for [place] and positive for Poverty of Content Judgement: Poor Diagnostics Vital Signs (24Hr): Vital Signs - 24 hr 11/09/24 20:00 11/10/24 08:00 Temperature 96.4 F L 97.5 F Pulse Rate 71 90 Respiratory Rate 18 Blood Pressure 162/90 H 140/83 H Pulse Oximetry 100 97 Oxygen Delivery Method Room Air Room Air BMI result Body Mass Index 27.9 Labs 10/28/24 09:10 11/04/24 07:36 Medications Medications Current Medications Acetaminophen (Acetaminophen 325 Mg Tablet) 650 mg PO Q6H PRN PRN Reason: Headache/Pain Mild Scale (1-3) Al Hydroxide/Mg Hydroxide (Magnesium Hydrox/Alum Hydrox 30 Ml Oral.Susp) 30 ml PO Q6H PRN PRN Reason: Heartburn/Nausea Atorvastatin Calcium (Atorvastatin Calcium 80 Mg Tablet) 80 mg PO BEDTIME [facility] Last Admin: 11/09/24 20:55 Dose: Not Given Benztropine Mesylate (Benztropine Mesylate 0.5 Mg Tablet) 1 mg PO BEDTIME [facility] Last Admin: 11/09/24 20:55 Dose: Not Given Empagliflozin (Empagliflozin 10 Mg Tablet) 10 mg PO DAILY [facility] Last Admin: 11/10/24 09:07 Dose: Not Given Furosemide (Furosemide 20 Mg Tablet) 20 mg PO DAILY [facility]; Protocol Last Admin: 11/10/24 09:07 Dose: Not Given Hydroxyzine HCl (Hydroxyzine Hcl 25 Mg Tablet) 25 mg PO Q6H PRN PRN Reason: Anxiety Last Admin: 11/06/24 01:45 Dose: 25 mg Lisinopril (Lisinopril 20 Mg Tablet) 20 mg PO DAILY [facility]; Protocol Last Admin: 11/10/24 09:07 Dose: Not Given Magnesium Hydroxide (Milk Of Magnesia 30 Ml Oral.Susp) 30 ml PO DAILY PRN PRN Reason: Constipation Memantine (Memantine Hcl 5 Mg Tablet) 5 mg PO BID [facility] Last Admin: 11/10/24 09:07 Dose: Not Given Metformin HCl (Metformin Hcl Er 500 Mg Tab.Er.24h) 500 mg PO BID [facility] Last Admin: 11/10/24 09:07 Dose: Not Given Mirtazapine (Mirtazapine 30 Mg Tablet) 30 mg PO BEDTIME [facility] Last Admin: 11/09/24 20:56 Dose: Not Given Nicotine (Nicotine 21 Mg Patch.Td24) 21 mg TRANSDERMA DAILY PRN PRN Reason: nicotine cravings Nicotine Polacrilex (Nicotine Polacrilex 2 Mg Gum) 4 mg BUCCAL Q2H PRN PRN Reason: Nicotine Cravings Olanzapine (Olanzapine 5 Mg Tablet) 5 mg PO Q4H PRN PRN Reason: agitation Last Admin: 11/09/24 15:21 Dose: 5 mg Olanzapine (Olanzapine 10 Mg Tablet) 20 mg PO BEDTIME [facility] Last Admin: 11/09/24 20:56 Dose: Not Given Olanzapine (Olanzapine Odt 10 Mg Tab.Rapdis) 10 mg TRANSLINGU DAILY [facility] Last Admin: 11/10/24 09:07 Dose: Not Given Oxcarbazepine (Oxcarbazepine 300 Mg Tablet) 600 mg PO BID [facility] Last Admin: 11/10/24 09:07 Dose: Not Given Primidone (Primidone 50 Mg Tablet) 50 mg PO BID [facility] Last Admin: 11/10/24 09:07 Dose: Not Given Sertraline HCl (Sertraline Hcl 50 Mg Tablet) 50 mg PO DAILY [facility] Last Admin: 11/10/24 09:07 Dose: Not Given Tamsulosin HCl (Tamsulosin Hcl 0.4 Mg Capsule) 0.4 mg PO DAILY [facility] Last Admin: 11/10/24 09:07 Dose: Not Given Trazodone HCl (Trazodone Hcl 50 Mg Tablet) 50 mg PO BEDTIME MRX1 PRN PRN Reason: Insomnia Last Admin: 11/07/24 22:07 Dose: 50 mg Allergies Allergies Allergy/AdvReac Type Severity Reaction Status Date / Time No Known Allergies Allergy Verified 10/14/24 18:14 [No Known Allergies*] Assessment & Plan Assessment & Plan (1) Mood disorder: Status: Acute Code(s): F39 - Unspecified mood [affective] disorder Plan Humza was admitted for safety and stabilization. His presentation is very similar to his last admission psychiatrically about a year ago and that is why his caregivers wanted to get ahead of things before he decompensated further. Current medications were reviewed and maintained. Contacts to be made with his treaters next week. 10/17: Continue current regimen and plans 10/19: Continue current tx plan and regime. 10/21: Memantine 5 mg daily- [facility], memory sx Abilify 2 mg daily-augment to antidepressants currently being used. 10/22 continue current tx plan -pt confused 10/23 Continue trials, regime and plan. 10/24: Continue regime and plan of care. 10/25 Abilify increased up to 5 mg. 10/26 keep on same treatment 10/27/24 continues with many complaints, no clear insight into self- 10/28 continue same treatment 10/29 increase Namenda to 5 mg p.o. b.i.d. and change Depakote to Depakene. Depakote level on 13/02 as per blood work of yesterday 10/30/24 - [place] [employer] olanzapine = continue depakene as he did take 5 capsules this am- prn olanzapine given - this afternoon for behaviors on unit- 10/31/24 wrote for liquid depakote option if refuses capsules, also got prn olanzapine for throwing self on floor 11/01 keep same treatment 11/02 increase Zyprexa to 20 mg p.o. q.h.s. 11/03 keep same treatment. 11/04 discontinue Depakote and start Trileptal 300 mg p.o. b.i.d.. Her healthcare proxy will bring a copy of that we are going to invoke it 11/06 increase olanzapine to 20mg po qhs and 10mg po daily. 11/07 continue tx. Plan 1. Depakote was discontinue since it has not been effective. 2. Trileptal titrated up to 600 mg p.o. b.i.d. on November 08 to target mood lability. 3. Zyprexa had been increased up to 20 mg daily with limited with activity. 4. We will consider to increase Abilify but later on it was discontinue. 5. The patient had been refusing his medication, we are provoking his CV and we are going to invoke his healthcare proxy. We are going to affirmed the healthcare proxy. Reason for continued inpatient stay Substantial Risk for: inability to function, rapid decompensation and med/psych decompensation Time Spent With Patient Time: Total time managing care of this patient today _20___ minutes.
[2024-11-10 20:00] VITALS: BP 150/96; PULSE 83; TEMP 36.6; O2SAT 98
[2024-11-10] MEDS: Mirtazapine 30 MG TABLET PO (21:37)
[2024-11-10] MEDS: OLANZapine 10 MG TABLET 20 MG PO (21:38)
[2024-11-11 08:40] VITALS: RESP 20
[2024-11-11 09:25] LABS: Creatinine Clr Calc Pharmacy 74.6; Estimated Glomerular Filt Rate > 60
[2024-11-11] MEDS: OLANZapine ODT 10 MG TAB.RAPDIS TRANSLINGU (10:13)
[2024-11-11] MEDS: LORazepam 2 MG/ML VIAL IM (12:43)
[2024-11-11] MEDS: chlorproMAZINE HCl 25 MG/ML AMPUL 100 MG IM (12:44)
--- NOTE | 2024-11-11 13:43 | P.PNPSI_ITS ---
Subjective Subjective Date of Service: 11/11/24 Reason For Visit: Anxiety, mood disorder, ASD Subjective Notes: Conditional Voluntary Healthcare Proxy: Yes Interim History: Nursing staff reported that the patient has refused his medications in the morning yesterday and today in the morning. He refused vital signs. Later on around noon he become very agitated and we needed to chemically restrained with Thorazine with better affect and Zyprexa. On assessment he was lying on his bed no evidence of injuries after the restrained. Mental Status Exam Mental Status Exam Patient Appearance: Unkempt Patient Orientation: Person Level of Consciousness: Awake Patient Behavior: Guarded and Passive Mood Description: Calm Affect Description: Constricted Patient Cognition Impaired: Yes Ability to Follow Directions: Good Speech Pattern: Clear Hallucinations: Auditory Delusions: Paranoid Ideation and Ideas of Reference Thought Process: Illogical and Distracted Thought Content: positive for Loose Associations Judgement: Poor Diagnostics Vital Signs (24Hr): Vital Signs - 24 hr 11/10/24 20:00 11/11/24 08:40 Temperature 97.8 F Pulse Rate 83 Respiratory Rate 20 Blood Pressure 150/96 H Pulse Oximetry 98 Oxygen Delivery Method Room Air BMI result Body Mass Index 27.9 Labs 10/28/24 09:10 11/11/24 08:31 Labs: Laboratory Results - last 48 hr 11/11/24 08:31 Creatinine 1.05 Estim Creat Clear Calc 74.6 Estimated GFR > 60 Medications Medications Current Medications Acetaminophen (Acetaminophen 325 Mg Tablet) 650 mg PO Q6H PRN PRN Reason: Headache/Pain Mild Scale (1-3) Al Hydroxide/Mg Hydroxide (Magnesium Hydrox/Alum Hydrox 30 Ml Oral.Susp) 30 ml PO Q6H PRN PRN Reason: Heartburn/Nausea Atorvastatin Calcium (Atorvastatin Calcium 80 Mg Tablet) 80 mg PO BEDTIME [facility] Last Admin: 11/10/24 22:53 Dose: Not Given Benztropine Mesylate (Benztropine Mesylate 0.5 Mg Tablet) 1 mg PO BEDTIME [facility] Last Admin: 11/10/24 21:48 Dose: Not Given Empagliflozin (Empagliflozin 10 Mg Tablet) 10 mg PO DAILY [facility] Last Admin: 11/11/24 10:18 Dose: Not Given Furosemide (Furosemide 20 Mg Tablet) 20 mg PO DAILY [facility]; Protocol Last Admin: 11/11/24 10:19 Dose: Not Given Hydroxyzine HCl (Hydroxyzine Hcl 25 Mg Tablet) 25 mg PO Q6H PRN PRN Reason: Anxiety Last Admin: 11/06/24 01:45 Dose: 25 mg Lisinopril (Lisinopril 20 Mg Tablet) 20 mg PO DAILY [facility]; Protocol Last Admin: 11/11/24 10:19 Dose: Not Given Magnesium Hydroxide (Milk Of Magnesia 30 Ml Oral.Susp) 30 ml PO DAILY PRN PRN Reason: Constipation Memantine (Memantine Hcl 5 Mg Tablet) 5 mg PO BID [facility] Last Admin: 11/11/24 10:19 Dose: Not Given Metformin HCl (Metformin Hcl Er 500 Mg Tab.Er.24h) 500 mg PO BID [facility] Last Admin: 11/11/24 10:19 Dose: Not Given Mirtazapine (Mirtazapine 30 Mg Tablet) 30 mg PO BEDTIME [facility] Last Admin: 11/10/24 21:37 Dose: 30 mg Nicotine (Nicotine 21 Mg Patch.Td24) 21 mg TRANSDERMA DAILY PRN PRN Reason: nicotine cravings Nicotine Polacrilex (Nicotine Polacrilex 2 Mg Gum) 4 mg BUCCAL Q2H PRN PRN Reason: Nicotine Cravings Olanzapine (Olanzapine 5 Mg Tablet) 5 mg PO Q4H PRN PRN Reason: agitation Last Admin: 11/09/24 15:21 Dose: 5 mg Olanzapine (Olanzapine 10 Mg Tablet) 20 mg PO BEDTIME [facility] Last Admin: 11/10/24 21:38 Dose: 20 mg Olanzapine (Olanzapine Odt 10 Mg Tab.Rapdis) 10 mg TRANSLINGU DAILY [facility] Last Admin: 11/11/24 10:13 Dose: 10 mg Oxcarbazepine (Oxcarbazepine 300 Mg Tablet) 600 mg PO BID [facility] Last Admin: 11/11/24 10:19 Dose: Not Given Primidone (Primidone 50 Mg Tablet) 50 mg PO BID [facility] Last Admin: 11/11/24 10:19 Dose: Not Given Sertraline HCl (Sertraline Hcl 50 Mg Tablet) 50 mg PO DAILY [facility] Last Admin: 11/11/24 10:19 Dose: Not Given Tamsulosin HCl (Tamsulosin Hcl 0.4 Mg Capsule) 0.4 mg PO DAILY [facility] Last Admin: 11/11/24 10:19 Dose: Not Given Trazodone HCl (Trazodone Hcl 50 Mg Tablet) 50 mg PO BEDTIME MRX1 PRN PRN Reason: Insomnia Last Admin: 11/07/24 22:07 Dose: 50 mg Allergies Allergies Allergy/AdvReac Type Severity Reaction Status Date / Time No Known Allergies Allergy Verified 10/14/24 18:14 [No Known Allergies*] Assessment & Plan Assessment & Plan (1) Mood disorder: Status: Acute Code(s): F39 - Unspecified mood [affective] disorder Plan Humza was admitted for safety and stabilization. His presentation is very similar to his last admission psychiatrically about a year ago and that is why his caregivers wanted to get ahead of things before he decompensated further. Current medications were reviewed and maintained. Contacts to be made with his treaters next week. 10/17: Continue current regimen and plans 10/19: Continue current tx plan and regime. 10/21: Memantine 5 mg daily- [facility], memory sx Abilify 2 mg daily-augment to antidepressants currently being used. 10/22 continue current tx plan -pt confused 10/23 Continue trials, regime and plan. 10/24: Continue regime and plan of care. 10/25 Abilify increased up to 5 mg. 10/26 keep on same treatment 10/27/24 continues with many complaints, no clear insight into self- 10/28 continue same treatment 10/29 increase Namenda to 5 mg p.o. b.i.d. and change Depakote to Depakene. Depakote level on 13/02 as per blood work of yesterday 10/30/24 - [place] [employer] olanzapine = continue depakene as he did take 5 capsules this am- prn olanzapine given - this afternoon for behaviors on unit- 10/31/24 wrote for liquid depakote option if refuses capsules, also got prn olanzapine for throwing self on floor 11/01 keep same treatment 11/02 increase Zyprexa to 20 mg p.o. q.h.s. 11/03 keep same treatment. 11/04 discontinue Depakote and start Trileptal 300 mg p.o. b.i.d.. Her healthcare proxy will bring a copy of that we are going to invoke it 11/06 increase olanzapine to 20mg po qhs and 10mg po daily. 11/07 continue tx. Plan 1. Depakote was discontinue since it has not been effective. 2. Trileptal titrated up to 600 mg p.o. b.i.d. on November 08 to target mood lability. 3. Zyprexa had been increased up to 20 mg daily with limited with activity. 4. We will consider to increase Abilify but later on it was discontinue. 5. The patient had been refusing his medication, we are provoking his CV and we are going to invoke his healthcare proxy. We are going to affirmed the healthcare proxy. Reason for continued inpatient stay Substantial Risk for: inability to function, rapid decompensation and med/psych decompensation Time Spent With Patient Time: Total time managing care of this patient today _20___ minutes.
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
--- NOTE | 2024-11-11 15:03 | HO.PSYEVENT ---
Event Note Date of Service: 11/11/24 Psych Restraint Event Note: The patient got agitated around noon time. He was unable to be de-escalated verbally. We needed to chemically restrained with Thorazine 100 mg and Ativan 2 mg. He needed to have physically held for a few minutes and received IM medication. Vital signs within normal limits no evidence of injuries. Time Spent With Patient Time: Total time managing care of this patient today __20__ minutes.
--- NOTE | 2024-11-12 07:38 | HO.PSYCHPN ---
Subjective Subjective Date of Service: 11/12/24 Reason For Visit: Anxiety, mood disorder, ASD Subjective Notes: Conditional Voluntary Healthcare Proxy: Yes Interim History: The nursing staff reported the patient slept after the restraining yesterday he slept all night and he could not receive his medications night. On interview the patient remains disorganized, agitated at times but redirectable. We will monitor closely his behavior. Mental Status Exam Mental Status Exam Patient Appearance: Unkempt Patient Orientation: Person Level of Consciousness: Awake and Restless Patient Behavior: Guarded Mood Description: Withdrawn Affect Description: Labile Patient Cognition Impaired: Yes Ability to Follow Directions: Good Speech Pattern: Clear Hallucinations: None Delusions: Paranoid Ideation and Ideas of Reference Thought Process: Illogical Thought Content: positive for [place] and positive for Poverty of Content Judgement: Poor Diagnostics Vital Signs (24Hr): Vital Signs - 24 hr 11/11/24 08:40 Respiratory Rate 20 BMI result Body Mass Index 27.9 Labs 10/28/24 09:10 11/11/24 08:31 Labs: Laboratory Results - last 48 hr 11/11/24 08:31 Creatinine 1.05 Estim Creat Clear Calc 74.6 Estimated GFR > 60 Medications Medications Current Medications Acetaminophen (Acetaminophen 325 Mg Tablet) 650 mg PO Q6H PRN PRN Reason: Headache/Pain Mild Scale (1-3) Al Hydroxide/Mg Hydroxide (Magnesium Hydrox/Alum Hydrox 30 Ml Oral.Susp) 30 ml PO Q6H PRN PRN Reason: Heartburn/Nausea Atorvastatin Calcium (Atorvastatin Calcium 80 Mg Tablet) 80 mg PO BEDTIME [facility] Last Admin: 11/11/24 21:16 Dose: Not Given Benztropine Mesylate (Benztropine Mesylate 0.5 Mg Tablet) 1 mg PO BEDTIME [facility] Last Admin: 11/11/24 21:16 Dose: Not Given Empagliflozin (Empagliflozin 10 Mg Tablet) 10 mg PO DAILY [facility] Last Admin: 11/11/24 10:18 Dose: Not Given Furosemide (Furosemide 20 Mg Tablet) 20 mg PO DAILY [facility]; Protocol Last Admin: 11/11/24 10:19 Dose: Not Given Hydroxyzine HCl (Hydroxyzine Hcl 25 Mg Tablet) 25 mg PO Q6H PRN PRN Reason: Anxiety Last Admin: 11/06/24 01:45 Dose: 25 mg Lisinopril (Lisinopril 20 Mg Tablet) 20 mg PO DAILY [facility]; Protocol Last Admin: 11/11/24 10:19 Dose: Not Given Magnesium Hydroxide (Milk Of Magnesia 30 Ml Oral.Susp) 30 ml PO DAILY PRN PRN Reason: Constipation Memantine (Memantine Hcl 5 Mg Tablet) 5 mg PO BID [facility] Last Admin: 11/11/24 21:18 Dose: Not Given Metformin HCl (Metformin Hcl Er 500 Mg Tab.Er.24h) 500 mg PO BID [facility] Last Admin: 11/11/24 21:18 Dose: Not Given Mirtazapine (Mirtazapine 30 Mg Tablet) 30 mg PO BEDTIME [facility] Last Admin: 11/11/24 21:18 Dose: Not Given Nicotine (Nicotine 21 Mg Patch.Td24) 21 mg TRANSDERMA DAILY PRN PRN Reason: nicotine cravings Nicotine Polacrilex (Nicotine Polacrilex 2 Mg Gum) 4 mg BUCCAL Q2H PRN PRN Reason: Nicotine Cravings Olanzapine (Olanzapine 5 Mg Tablet) 5 mg PO Q4H PRN PRN Reason: agitation Last Admin: 11/09/24 15:21 Dose: 5 mg Olanzapine (Olanzapine 10 Mg Tablet) 20 mg PO BEDTIME [facility] Last Admin: 11/11/24 21:18 Dose: Not Given Olanzapine (Olanzapine Odt 10 Mg Tab.Rapdis) 10 mg TRANSLINGU DAILY [facility] Last Admin: 11/11/24 10:13 Dose: 10 mg Oxcarbazepine (Oxcarbazepine 300 Mg Tablet) 600 mg PO BID [facility] Last Admin: 11/11/24 21:20 Dose: Not Given Primidone (Primidone 50 Mg Tablet) 50 mg PO BID [facility] Last Admin: 11/11/24 21:18 Dose: Not Given Sertraline HCl (Sertraline Hcl 50 Mg Tablet) 50 mg PO DAILY [facility] Last Admin: 11/11/24 10:19 Dose: Not Given Tamsulosin HCl (Tamsulosin Hcl 0.4 Mg Capsule) 0.4 mg PO DAILY [facility] Last Admin: 11/11/24 10:19 Dose: Not Given Trazodone HCl (Trazodone Hcl 50 Mg Tablet) 50 mg PO BEDTIME MRX1 PRN PRN Reason: Insomnia Last Admin: 11/07/24 22:07 Dose: 50 mg Allergies Allergies Allergy/AdvReac Type Severity Reaction Status Date / Time No Known Allergies Allergy Verified 10/14/24 18:14 [No Known Allergies*] Assessment & Plan Assessment & Plan (1) Mood disorder: Status: Acute Code(s): F39 - Unspecified mood [affective] disorder Plan Humza was admitted for safety and stabilization. His presentation is very similar to his last admission psychiatrically about a year ago and that is why his caregivers wanted to get ahead of things before he decompensated further. Current medications were reviewed and maintained. Contacts to be made with his treaters next week. 10/17: Continue current regimen and plans 10/19: Continue current tx plan and regime. 10/21: Memantine 5 mg daily- [facility], memory sx Abilify 2 mg daily-augment to antidepressants currently being used. 10/22 continue current tx plan -pt confused 10/23 Continue trials, regime and plan. 10/24: Continue regime and plan of care. 10/25 Abilify increased up to 5 mg. 10/26 keep on same treatment 10/27/24 continues with many complaints, no clear insight into self- 10/28 continue same treatment 10/29 increase Namenda to 5 mg p.o. b.i.d. and change Depakote to Depakene. Depakote level on 13/02 as per blood work of yesterday 10/30/24 - [facility] olanzapine = continue depakene as he did take 5 capsules this am- prn olanzapine given - this afternoon for behaviors on unit- 10/31/24 wrote for liquid depakote option if refuses capsules, also got prn olanzapine for throwing self on floor 11/01 keep same treatment 11/02 increase Zyprexa to 20 mg p.o. q.h.s. 11/03 keep same treatment. 11/04 discontinue Depakote and start Trileptal 300 mg p.o. b.i.d.. Her healthcare proxy will bring a copy of that we are going to invoke it 11/06 increase olanzapine to 20mg po qhs and 10mg po daily. 11/07 continue tx. Plan 1. Depakote was discontinue since it has not been effective. 2. Trileptal titrated up to 600 mg p.o. b.i.d. on November 08 to target mood lability. 3. Zyprexa had been increased up to 20 mg daily with limited with activity. 4. We will consider to increase Abilify but later on it was discontinue. 5. The patient had been refusing his medication, we are provoking his CV and we are going to invoke his healthcare proxy. We are going to affirmed the healthcare proxy. Reason for continued inpatient stay Substantial Risk for: inability to function, rapid decompensation and med/psych decompensation Time Spent With Patient Time: Total time managing care of this patient today __20__ minutes.
[2024-11-12 07:58] VITALS: RESP 16
--- NOTE | 2024-11-12 09:43 | PC.NURSE ---
Humza declined vital signs and medications despite education and encouragement from program writer. Dr. Steiner notified.
[2024-11-12 19:54] VITALS: BP 138/75; PULSE 85; TEMP 37; O2SAT 93
--- NOTE | 2024-11-13 06:50 | P.PNPSI_ITS ---
Subjective Subjective Date of Service: 11/13/24 Reason For Visit: Anxiety, mood disorder, ASD Subjective Notes: Conditional Voluntary Healthcare Proxy: Yes Interim History: The nursing staff reported the patient had been irritable, pacing in the hallway. So far, we did not have to restrain him in the last 24 hours. On interview the patient remains grossly disorganized, we are waiting for the legal procedure for the healthcare proxy so he can take informed decisions for him. Mental Status Exam Mental Status Exam Patient Appearance: Unkempt Patient Orientation: Person and Situation Level of Consciousness: Awake Patient Behavior: Guarded and Passive Mood Description: Withdrawn Affect Description: Constricted Patient Cognition Impaired: Yes Ability to Follow Directions: Good Speech Pattern: Clear Hallucinations: None Delusions: Not Present Thought Process: Distracted and Slowed Thinking Thought Content: positive for [place] and positive for Poverty of Content Judgement: Poor Diagnostics Vital Signs (24Hr): Vital Signs - 24 hr 11/12/24 07:58 11/12/24 19:54 Temperature 98.6 F Pulse Rate 85 Respiratory Rate 16 Blood Pressure 138/75 Pulse Oximetry 93 Oxygen Delivery Method Room Air BMI result Body Mass Index 27.9 Labs 10/28/24 09:10 11/11/24 08:31 Labs: Laboratory Results - last 48 hr 11/11/24 08:31 Creatinine 1.05 Estim Creat Clear Calc 74.6 Estimated GFR > 60 Medications Medications Current Medications Acetaminophen (Acetaminophen 325 Mg Tablet) 650 mg PO Q6H PRN PRN Reason: Headache/Pain Mild Scale (1-3) Al Hydroxide/Mg Hydroxide (Magnesium Hydrox/Alum Hydrox 30 Ml Oral.Susp) 30 ml PO Q6H PRN PRN Reason: Heartburn/Nausea Atorvastatin Calcium (Atorvastatin Calcium 80 Mg Tablet) 80 mg PO BEDTIME [facility] Last Admin: 11/12/24 22:04 Dose: Not Given Benztropine Mesylate (Benztropine Mesylate 0.5 Mg Tablet) 1 mg PO BEDTIME [facility] Last Admin: 11/12/24 22:04 Dose: Not Given Empagliflozin (Empagliflozin 10 Mg Tablet) 10 mg PO DAILY [facility] Last Admin: 11/12/24 09:41 Dose: Not Given Furosemide (Furosemide 20 Mg Tablet) 20 mg PO DAILY [facility]; Protocol Last Admin: 11/12/24 09:41 Dose: Not Given Hydroxyzine HCl (Hydroxyzine Hcl 25 Mg Tablet) 25 mg PO Q6H PRN PRN Reason: Anxiety Last Admin: 11/06/24 01:45 Dose: 25 mg Lisinopril (Lisinopril 20 Mg Tablet) 20 mg PO DAILY [facility]; Protocol Last Admin: 11/12/24 09:41 Dose: Not Given Magnesium Hydroxide (Milk Of Magnesia 30 Ml Oral.Susp) 30 ml PO DAILY PRN PRN Reason: Constipation Memantine (Memantine Hcl 5 Mg Tablet) 5 mg PO BID [facility] Last Admin: 11/12/24 22:04 Dose: Not Given Metformin HCl (Metformin Hcl Er 500 Mg Tab.Er.24h) 500 mg PO BID [facility] Last Admin: 11/12/24 22:04 Dose: Not Given Mirtazapine (Mirtazapine 30 Mg Tablet) 30 mg PO BEDTIME [facility] Last Admin: 11/12/24 22:05 Dose: Not Given Nicotine (Nicotine 21 Mg Patch.Td24) 21 mg TRANSDERMA DAILY PRN PRN Reason: nicotine cravings Nicotine Polacrilex (Nicotine Polacrilex 2 Mg Gum) 4 mg BUCCAL Q2H PRN PRN Reason: Nicotine Cravings Olanzapine (Olanzapine 5 Mg Tablet) 5 mg PO Q4H PRN PRN Reason: agitation Last Admin: 11/09/24 15:21 Dose: 5 mg Olanzapine (Olanzapine 10 Mg Tablet) 20 mg PO BEDTIME [facility] Last Admin: 11/12/24 22:05 Dose: Not Given Olanzapine (Olanzapine Odt 10 Mg Tab.Rapdis) 10 mg TRANSLINGU DAILY [facility] Last Admin: 11/12/24 09:42 Dose: Not Given Oxcarbazepine (Oxcarbazepine 300 Mg Tablet) 600 mg PO BID [facility] Last Admin: 11/12/24 22:05 Dose: Not Given Primidone (Primidone 50 Mg Tablet) 50 mg PO BID [facility] Last Admin: 11/12/24 22:05 Dose: Not Given Sertraline HCl (Sertraline Hcl 50 Mg Tablet) 50 mg PO DAILY [facility] Last Admin: 11/12/24 09:42 Dose: Not Given Tamsulosin HCl (Tamsulosin Hcl 0.4 Mg Capsule) 0.4 mg PO DAILY [facility] Last Admin: 11/12/24 09:42 Dose: Not Given Trazodone HCl (Trazodone Hcl 50 Mg Tablet) 50 mg PO BEDTIME MRX1 PRN PRN Reason: Insomnia Last Admin: 11/07/24 22:07 Dose: 50 mg Allergies Allergies Allergy/AdvReac Type Severity Reaction Status Date / Time No Known Allergies Allergy Verified 10/14/24 18:14 [No Known Allergies*] Assessment & Plan Assessment & Plan (1) Mood disorder: Status: Acute Code(s): F39 - Unspecified mood [affective] disorder Plan Humza was admitted for safety and stabilization. His presentation is very similar to his last admission psychiatrically about a year ago and that is why his caregivers wanted to get ahead of things before he decompensated further. Current medications were reviewed and maintained. Contacts to be made with his treaters next week. 10/17: Continue current regimen and plans 10/19: Continue current tx plan and regime. 10/21: Memantine 5 mg daily- [facility], memory sx Abilify 2 mg daily-augment to antidepressants currently being used. 10/22 continue current tx plan -pt confused 10/23 Continue trials, regime and plan. 10/24: Continue regime and plan of care. 10/25 Abilify increased up to 5 mg. 10/26 keep on same treatment 10/27/24 continues with many complaints, no clear insight into self- 10/28 continue same treatment 10/29 increase Namenda to 5 mg p.o. b.i.d. and change Depakote to Depakene. Depakote level on 13/02 as per blood work of yesterday 10/30/24 - [facility] olanzapine = continue depakene as he did take 5 capsules this am- prn olanzapine given - this afternoon for behaviors on unit- 10/31/24 wrote for liquid depakote option if refuses capsules, also got prn olanzapine for throwing self on floor 11/01 keep same treatment 11/02 increase Zyprexa to 20 mg p.o. q.h.s. 11/03 keep same treatment. 11/04 discontinue Depakote and start Trileptal 300 mg p.o. b.i.d.. Her healthcare proxy will bring a copy of that we are going to invoke it 11/06 increase olanzapine to 20mg po qhs and 10mg po daily. 11/07 continue tx. Plan 1. Depakote was discontinue since it has not been effective. 2. Trileptal titrated up to 600 mg p.o. b.i.d. on November 08 to target mood lability. 3. Zyprexa had been increased up to 20 mg daily with limited with activity. 4. We will consider to increase Abilify but later on it was discontinue. 5. The patient had been refusing his medication, we are provoking his CV and we are going to invoke his healthcare proxy. We are going to affirmed the healthcare proxy. Reason for continued inpatient stay Substantial Risk for: inability to function, rapid decompensation and med/psych decompensation Time Spent With Patient Time: Total time managing care of this patient today _20___ minutes.
[2024-11-13 09:09] VITALS: RESP 18
[2024-11-13] MEDS: metFORMIN HCl ER 500 MG TAB.ER.24H PO (09:13)
[2024-11-13] MEDS: OLANZapine ODT 10 MG TAB.RAPDIS TRANSLINGU (09:14)
[2024-11-13] MEDS: OXcarbazepine 300 MG TABLET 600 MG PO (09:14)
[2024-11-13] MEDS: Empagliflozin 10 MG TABLET PO (09:17)
[2024-11-13 20:00] VITALS: BP 132/84; PULSE 82; RESP 18; TEMP 36.6; O2SAT 98
--- NOTE | 2024-11-14 06:44 | HO.PSYCHPN ---
Subjective Subjective Date of Service: 11/14/24 Reason For Visit: Anxiety, mood disorder, ASD Subjective Notes: Conditional Voluntary Healthcare Proxy: Yes Interim History: The nursing staff reported the patient was compliant with treatment, he had been irritable and pacing in the hallway but redirectable, so far no need of chemically restrained him. On interview he was posturing and stating that he wants to . He was able to be deescalated verbally in the morning. Mental Status Exam Mental Status Exam Patient Appearance: Appropriate Patient Orientation: Person and Situation Level of Consciousness: Awake Patient Behavior: Guarded and Passive Mood Description: Calm Affect Description: Constricted Patient Cognition Impaired: Yes Ability to Follow Directions: Good Speech Pattern: Clear Hallucinations: None Delusions: Paranoid Ideation and Ideas of Reference Thought Process: Distracted and Slowed Thinking Thought Content: positive for [place] and positive for Poverty of Content Judgement: Poor Diagnostics Vital Signs (24Hr): Vital Signs - 24 hr 11/13/24 09:09 11/13/24 20:00 Temperature 97.8 F Pulse Rate 82 Respiratory Rate 18 18 Blood Pressure 132/84 Pulse Oximetry 98 Oxygen Delivery Method Room Air BMI result Body Mass Index 27.9 Labs 10/28/24 09:10 11/11/24 08:31 Medications Medications Current Medications Acetaminophen (Acetaminophen 325 Mg Tablet) 650 mg PO Q6H PRN PRN Reason: Headache/Pain Mild Scale (1-3) Al Hydroxide/Mg Hydroxide (Magnesium Hydrox/Alum Hydrox 30 Ml Oral.Susp) 30 ml PO Q6H PRN PRN Reason: Heartburn/Nausea Atorvastatin Calcium (Atorvastatin Calcium 80 Mg Tablet) 80 mg PO BEDTIME [facility] Last Admin: 11/13/24 21:29 Dose: Not Given Benztropine Mesylate (Benztropine Mesylate 0.5 Mg Tablet) 1 mg PO BEDTIME [facility] Last Admin: 11/13/24 21:29 Dose: Not Given Empagliflozin (Empagliflozin 10 Mg Tablet) 10 mg PO DAILY [facility] Last Admin: 11/13/24 09:17 Dose: 10 mg Furosemide (Furosemide 20 Mg Tablet) 20 mg PO DAILY [facility]; Protocol Last Admin: 11/13/24 09:26 Dose: Not Given Hydroxyzine HCl (Hydroxyzine Hcl 25 Mg Tablet) 25 mg PO Q6H PRN PRN Reason: Anxiety Last Admin: 11/06/24 01:45 Dose: 25 mg Lisinopril (Lisinopril 20 Mg Tablet) 20 mg PO DAILY [facility]; Protocol Last Admin: 11/13/24 09:26 Dose: Not Given Magnesium Hydroxide (Milk Of Magnesia 30 Ml Oral.Susp) 30 ml PO DAILY PRN PRN Reason: Constipation Memantine (Memantine Hcl 5 Mg Tablet) 5 mg PO BID [facility] Last Admin: 11/13/24 21:29 Dose: Not Given Metformin HCl (Metformin Hcl Er 500 Mg Tab.Er.24h) 500 mg PO BID [facility] Last Admin: 11/13/24 21:29 Dose: Not Given Mirtazapine (Mirtazapine 30 Mg Tablet) 30 mg PO BEDTIME [facility] Last Admin: 11/13/24 21:29 Dose: Not Given Nicotine (Nicotine 21 Mg Patch.Td24) 21 mg TRANSDERMA DAILY PRN PRN Reason: nicotine cravings Nicotine Polacrilex (Nicotine Polacrilex 2 Mg Gum) 4 mg BUCCAL Q2H PRN PRN Reason: Nicotine Cravings Olanzapine (Olanzapine 5 Mg Tablet) 5 mg PO Q4H PRN PRN Reason: agitation Last Admin: 11/09/24 15:21 Dose: 5 mg Olanzapine (Olanzapine 10 Mg Tablet) 20 mg PO BEDTIME [facility] Last Admin: 11/13/24 21:29 Dose: Not Given Olanzapine (Olanzapine Odt 10 Mg Tab.Rapdis) 10 mg TRANSLINGU DAILY [facility] Last Admin: 11/13/24 09:14 Dose: 10 mg Oxcarbazepine (Oxcarbazepine 300 Mg Tablet) 600 mg PO BID [facility] Last Admin: 11/13/24 21:29 Dose: Not Given Primidone (Primidone 50 Mg Tablet) 50 mg PO BID [facility] Last Admin: 11/13/24 21:29 Dose: Not Given Sertraline HCl (Sertraline Hcl 50 Mg Tablet) 50 mg PO DAILY [facility] Last Admin: 11/13/24 09:27 Dose: Not Given Tamsulosin HCl (Tamsulosin Hcl 0.4 Mg Capsule) 0.4 mg PO DAILY [facility] Last Admin: 11/13/24 09:27 Dose: Not Given Trazodone HCl (Trazodone Hcl 50 Mg Tablet) 50 mg PO BEDTIME MRX1 PRN PRN Reason: Insomnia Last Admin: 11/07/24 22:07 Dose: 50 mg Allergies Allergies Allergy/AdvReac Type Severity Reaction Status Date / Time No Known Allergies Allergy Verified 12/19/24 18:14 [No Known Allergies*] Assessment & Plan Assessment & Plan (1) Mood disorder: Status: Acute Code(s): F39 - Unspecified mood [affective] disorder Plan Humza was admitted for safety and stabilization. His presentation is very similar to his last admission psychiatrically about a year ago and that is why his caregivers wanted to get ahead of things before he decompensated further. Current medications were reviewed and maintained. Contacts to be made with his treaters next week. 10/17: Continue current regimen and plans 10/19: Continue current tx plan and regime. 10/21: Memantine 5 mg daily- [facility], memory sx Abilify 2 mg daily-augment to antidepressants currently being used. 10/22 continue current tx plan -pt confused 10/23 Continue trials, regime and plan. 10/24: Continue regime and plan of care. 10/25 Abilify increased up to 5 mg. 10/26 keep on same treatment 10/27/24 continues with many complaints, no clear insight into self- 10/28 continue same treatment 10/29 increase Namenda to 5 mg p.o. b.i.d. and change Depakote to Depakene. Depakote level on 13/02 as per blood work of yesterday 10/30/24 - [facility] olanzapine = continue depakene as he did take 5 capsules this am- prn olanzapine given - this afternoon for behaviors on unit- 10/31/24 wrote for liquid depakote option if refuses capsules, also got prn olanzapine for throwing self on floor 11/01 keep same treatment 11/02 increase Zyprexa to 20 mg p.o. q.h.s. 11/03 keep same treatment. 11/04 discontinue Depakote and start Trileptal 300 mg p.o. b.i.d.. Her healthcare proxy will bring a copy of that we are going to invoke it 11/06 increase olanzapine to 20mg po qhs and 10mg po daily. 11/07 continue tx. Plan 1. Depakote was discontinue since it has not been effective. 2. Trileptal titrated up to 600 mg p.o. b.i.d. on November 08 to target mood lability. 3. Zyprexa had been increased up to 20 mg daily with limited with activity. 4. We will consider to increase Abilify but later on it was discontinue. 5. The patient had been refusing his medication, we are provoking his CV and we are going to invoke his healthcare proxy. We are going to affirmed the healthcare proxy. 6. Increase Zoloft November 14. Reason for continued inpatient stay Substantial Risk for: inability to function, rapid decompensation and med/psych decompensation Time Spent With Patient Time: Total time managing care of this patient today __20__ minutes.
[2024-11-14 08:00] VITALS: BP 130/78; PULSE 88; RESP 16; TEMP 36.3; O2SAT 95
[2024-11-14] MEDS: OLANZapine ODT 10 MG TAB.RAPDIS TRANSLINGU (09:21)
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
[2024-11-14] MEDS: LORazepam 2 MG/ML VIAL IM (10:28)
[2024-11-14] MEDS: chlorproMAZINE HCl 25 MG/ML AMPUL 100 MG IM (10:28)
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
[2024-11-15 08:00] VITALS: RESP 18
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
[2024-11-15 20:00] VITALS: BP 170/84; PULSE 95; TEMP 36.4; O2SAT 99
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
[2024-11-15] MEDS: chlorproMAZINE HCl 25 MG/ML AMPUL 100 MG IM (21:12)
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
[2024-11-15 21:38] VITALS: BP 141/79; PULSE 101; RESP 18; TEMP 37; O2SAT 99
--- NOTE | 2024-11-15 21:38 | HO.BHRESTREX ---
Behavioral Restraint Exam Behavioral Health Restraint Exam Type of Restraint: Medication Reason for Restraint: Substantial Risk of Harm to Others Medical Concerns for Restraint: No medical concerns, pt w/o acute inj / no noted resp/VS abnormalities Behavioral Assessment / Plan: No further behavioral concerns, continue current plan.
--- NOTE | 2024-11-15 21:55 | PC.NURSE ---
Patient's sister/hcp Fernanda Kline [phone] notified at 2130 of chemical restraint.
[2024-11-16 08:00] VITALS: RESP 18
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
[2024-11-16] MEDS: LORazepam 1 MG TABLET 2 MG PO (11:22)
[2024-11-16] MEDS: OLANZapine 10 MG TABLET 20 MG PO (20:49)
[2024-11-16] MEDS: Benztropine Mesylate 0.5 MG TABLET 1 MG PO (20:49)
[2024-11-16] MEDS: Mirtazapine 30 MG TABLET PO (20:49)
[2024-11-16] MEDS: Memantine HCl 5 MG TABLET PO (20:52)
[2024-11-16] MEDS: OXcarbazepine 300 MG TABLET 600 MG PO (20:52)
[2024-11-16] MEDS: Atorvastatin Calcium 80 MG TABLET PO (20:53)
[2024-11-16] MEDS: Primidone 50 MG TABLET PO (20:55)
[2024-11-16] MEDS: metFORMIN HCl ER 500 MG TAB.ER.24H PO (20:56)
[2024-11-17 08:00] VITALS: RESP 16
--- NOTE | 2024-11-17 09:38 | PC.NURSE ---
Humza declined medications and vital signs despite education and encouragement from this life underwriter. Dr. Steiner notified.
[2024-11-17] MEDS: LORazepam 1 MG TABLET 2 MG PO (11:46)
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
[2024-11-17 20:00] VITALS: BP 142/94; PULSE 94; RESP 16; TEMP 37; O2SAT 99
[2024-11-17] MEDS: OLANZapine 10 MG TABLET 20 MG PO (20:15)
[2024-11-18 07:00] VITALS: BMI 27.1
[2024-11-18 08:00] VITALS: BP 146/89; PULSE 94; RESP 20; O2SAT 100
[2024-11-18] MEDS: Sertraline HCL 100 MG TABLET PO (09:16)
[2024-11-18] MEDS: Primidone 50 MG TABLET PO (09:16)
[2024-11-18] MEDS: Empagliflozin 10 MG TABLET PO (09:16)
[2024-11-18] MEDS: Furosemide 20 MG TABLET PO (09:16)
[2024-11-18] MEDS: lisinopriL 20 MG TABLET PO (09:17)
[2024-11-18] MEDS: OXcarbazepine 300 MG TABLET 600 MG PO (09:17)
[2024-11-18] MEDS: metFORMIN HCl ER 500 MG TAB.ER.24H PO (09:17)
[2024-11-18] MEDS: Memantine HCl 5 MG TABLET PO (09:17)
[2024-11-18] MEDS: OLANZapine ODT 10 MG TAB.RAPDIS TRANSLINGU (09:18)
[2024-11-18] MEDS: Tamsulosin HCL 0.4 MG CAPSULE PO (09:18)
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
[2024-11-18] MEDS: hydrOXYzine HCL 25 MG TABLET PO (17:38)
[2024-11-18 20:00] VITALS: RESP 16
[2024-11-18] MEDS: OLANZapine 10 MG TABLET 20 MG PO (21:16)
[2024-11-19 08:00] VITALS: RESP 18; TEMP 36.9
[2024-11-19] MEDS: OXcarbazepine 300 MG TABLET 600 MG PO (08:36)
[2024-11-19] MEDS: Memantine HCl 5 MG TABLET PO (08:36)
[2024-11-19] MEDS: OLANZapine ODT 10 MG TAB.RAPDIS TRANSLINGU (08:36)
[2024-11-19] MEDS: Sertraline HCL 100 MG TABLET PO (08:37)
[2024-11-19] MEDS: Primidone 50 MG TABLET PO (08:37)
[2024-11-19] MEDS: Empagliflozin 10 MG TABLET PO (08:37)
[2024-11-19] MEDS: Tamsulosin HCL 0.4 MG CAPSULE PO (08:37)
[2024-11-19] MEDS: metFORMIN HCl ER 500 MG TAB.ER.24H PO (08:37)
--- NOTE | 2024-11-19 08:42 | P.PNPSI_ITS ---
Subjective Subjective Date of Service: 11/19/24 Reason For Visit: Anxiety, mood disorder, ASD Subjective Notes: Conditional Voluntary Healthcare Proxy: Yes Interim History: Pt slept 8hrs. This morning he initially refused medications stating that voices telling him that medications are not a good idea. He had intermittent episodes of intense frustration, grabbing his neck, being able to be redirected. His affect can change quickly depending on response of person interacting with him. He reports wanting to kill himself, while grabbing his neck and attempting to choke himself, but able to be redirected. He finally took medications. Mental Status Exam Mental Status Exam Narrative: Appearance: casully groomed, fair hygiene, anxious, restless Behavior: guarded Psychomotor: periods of intermittent agitation Speech: mumbles at times, monotone, spontaneous TP: wanting to hurt himself TC: not wanting to take medications Mood: unable to assess Affect: variable, some irritability and explosive behaviors, with quick switch to calm SI: reports intermittently ideas of wanting to end his life and attempting to choke himself with his hands HI: none VH/AH: it is unclear, but he does report that he hears voices telling him that it is not a good idea to take medications Delusions: he is suspicious, no overt delusional content but perception of reality is off Insight/judgment: impaired x 2. memory/cog: alert, not oriented to situation, month, year. Diagnostics Vital Signs (24Hr): Vital Signs - 24 hr 11/18/24 20:00 11/19/24 08:00 Temperature 98.4 F Respiratory Rate 16 18 BMI result Body Mass Index 27.1 Labs 10/28/24 09:10 11/11/24 08:31 Medications Medications Current Medications Acetaminophen (Acetaminophen 325 Mg Tablet) 650 mg PO Q6H PRN PRN Reason: Headache/Pain Mild Scale (1-3) Al Hydroxide/Mg Hydroxide (Magnesium Hydrox/Alum Hydrox 30 Ml Oral.Susp) 30 ml PO Q6H PRN PRN Reason: Heartburn/Nausea Atorvastatin Calcium (Atorvastatin Calcium 80 Mg Tablet) 80 mg PO BEDTIME [facility] Last Admin: 11/18/24 21:18 Dose: Not Given Benztropine Mesylate (Benztropine Mesylate 0.5 Mg Tablet) 1 mg PO BEDTIME [facility] Last Admin: 11/18/24 21:19 Dose: Not Given Empagliflozin (Empagliflozin 10 Mg Tablet) 10 mg PO DAILY [facility] Last Admin: 11/18/24 09:16 Dose: 10 mg Furosemide (Furosemide 20 Mg Tablet) 20 mg PO DAILY [facility]; Protocol Last Admin: 11/18/24 09:16 Dose: 20 mg Hydroxyzine HCl (Hydroxyzine Hcl 25 Mg Tablet) 25 mg PO Q6H PRN PRN Reason: Anxiety Last Admin: 11/18/24 17:38 Dose: 25 mg Lisinopril (Lisinopril 20 Mg Tablet) 20 mg PO DAILY [facility]; Protocol Last Admin: 11/18/24 09:17 Dose: 20 mg Lorazepam (Lorazepam 1 Mg Tablet) 2 mg PO Q6H PRN PRN Reason: Agitation Last Admin: 11/17/24 11:46 Dose: 2 mg Magnesium Hydroxide (Milk Of Magnesia 30 Ml Oral.Susp) 30 ml PO DAILY PRN PRN Reason: Constipation Memantine (Memantine Hcl 5 Mg Tablet) 5 mg PO BID [facility] Last Admin: 11/18/24 21:19 Dose: Not Given Metformin HCl (Metformin Hcl Er 500 Mg Tab.Er.24h) 500 mg PO BID [facility] Last Admin: 11/18/24 21:19 Dose: Not Given Mirtazapine (Mirtazapine 30 Mg Tablet) 30 mg PO BEDTIME [facility] Last Admin: 11/18/24 21:19 Dose: Not Given Nicotine (Nicotine 21 Mg Patch.Td24) 21 mg TRANSDERMA DAILY PRN PRN Reason: nicotine cravings Nicotine Polacrilex (Nicotine Polacrilex 2 Mg Gum) 4 mg BUCCAL Q2H PRN PRN Reason: Nicotine Cravings Olanzapine (Olanzapine 10 Mg Tablet) 20 mg PO BEDTIME [facility] Last Admin: 11/18/24 21:16 Dose: 20 mg Olanzapine (Olanzapine Odt 10 Mg Tab.Rapdis) 10 mg TRANSLINGU DAILY [facility] Last Admin: 11/18/24 09:18 Dose: 10 mg Oxcarbazepine (Oxcarbazepine 300 Mg Tablet) 600 mg PO BID [facility] Last Admin: 11/18/24 21:19 Dose: Not Given Primidone (Primidone 50 Mg Tablet) 50 mg PO BID [facility] Last Admin: 11/18/24 21:19 Dose: Not Given Sertraline HCl (Sertraline Hcl 100 Mg Tablet) 100 mg PO DAILY [facility] Last Admin: 11/18/24 09:16 Dose: 100 mg Tamsulosin HCl (Tamsulosin Hcl 0.4 Mg Capsule) 0.4 mg PO DAILY [facility] Last Admin: 11/18/24 09:18 Dose: 0.4 mg Trazodone HCl (Trazodone Hcl 50 Mg Tablet) 50 mg PO BEDTIME MRX1 PRN PRN Reason: Insomnia Last Admin: 11/07/24 22:07 Dose: 50 mg Allergies Allergies Allergy/AdvReac Type Severity Reaction Status Date / Time No Known Allergies Allergy Verified 10/14/24 18:14 [No Known Allergies*] Assessment & Plan Assessment & Plan (1) Mood disorder: Status: Acute Code(s): F39 - Unspecified mood [affective] disorder (2) Autism spectrum disorder: Status: Acute Code(s): F84.0 - Autistic disorder (3) Neurocognitive disorder: Status: Acute Code(s): R41.9 - Unspecified symptoms and signs involving cognitive functions and awareness Plan Humza was admitted for safety and stabilization. His presentation is very similar to his last admission psychiatrically about a year ago and that is why his caregivers wanted to get ahead of things before he decompensated further. Current medications were reviewed and maintained. Contacts to be made with his treaters next week. 10/17: Continue current regimen and plans 10/19: Continue current tx plan and regime. 10/21: Memantine 5 mg daily- [facility], memory sx Abilify 2 mg daily-augment to antidepressants currently being used. 10/22 continue current tx plan -pt confused 10/23 Continue trials, regime and plan. 10/24: Continue regime and plan of care. 10/25 Abilify increased up to 5 mg. 10/26 keep on same treatment 10/27/24 continues with many complaints, no clear insight into self- 10/28 continue same treatment 10/29 increase Namenda to 5 mg p.o. b.i.d. and change Depakote to Depakene. Depakote level on 13/02 as per blood work of yesterday 10/30/24 - dc abilify inc olanzapine = continue depakene as he did take 5 capsules this am- prn olanzapine given - this afternoon for behaviors on unit- 10/31/24 wrote for liquid depakote option if refuses capsules, also got prn olanzapine for throwing self on floor 11/01 keep same treatment 11/02 increase Zyprexa to 20 mg p.o. q.h.s. 11/03 keep same treatment. 11/04 discontinue Depakote and start Trileptal 300 mg p.o. b.i.d.. Her healthcare proxy will bring a copy of that we are going to invoke it 11/06 increase olanzapine to 20mg po qhs and 10mg po daily. 11/07 continue tx. Plan 11/19 scheduled valium 2mg po TID for explosive/intense emotions. he reports voices telling him not to take medications, wondering if lowering sertraline may help decrease psychosis, if in fact these voices are of psychotic nature. Reason for continued inpatient stay Substantial Risk for: inability to function Time Spent With Patient Time: Total time managing care of this patient today ____ minutes.
[2024-11-19 11:15] VITALS: BP 134/85; PULSE 83; O2SAT 98
[2024-11-19] MEDS: Furosemide 20 MG TABLET PO (11:19)
[2024-11-19] MEDS: lisinopriL 20 MG TABLET PO (11:19)
[2024-11-19] MEDS: diazePAM 2 MG TABLET PO ×2 (11:50→15:35)
[2024-11-20 08:00] VITALS: BP 155/95; PULSE 86; RESP 18; O2SAT 98
[2024-11-20] MEDS: LORazepam 1 MG TABLET 2 MG PO (13:34)
--- NOTE | 2024-11-20 14:56 | P.PNPSI_ITS ---
Subjective Subjective Date of Service: 11/20/24 Reason For Visit: Anxiety, mood disorder, ASD Interim History: Met with pt, reviewed with the team. I am not good today, I believe I will tomorrow. Team reports pt has difficulty accepting meds, however will accept them with their encouragement at times. Today has been grabbing at his neck, throat. He did have a difficult call with his HCP. Reports to team that at times his feet are on fire Some sleep per pt, team reports a solid sleep last night. Medication Compliance: Intermittent Side effects from medications: No Attending Groups: Intermittent Review of Systems Acute medical concerns: No Review of Systems Review of Systems Refer to [facility] Mental Status Exam Mental Status Exam Patient Appearance: Disheveled Patient Orientation: Person and Place Level of Consciousness: Alert Patient Behavior: Guarded, Talkative, Resistive to Care and Poor Eye Contact Mood Description: Withdrawn, Fearful, Anxious, Nervous and Apprehensive Affect Description: Nervous Patient Cognition Impaired: No Ability to Follow Directions: Fair Speech Pattern: Spontaneous Speech Memory Description: Remote Impaired Hallucinations: None Delusions: Paranoid Ideation and Present Perceptual Disturbances: Depersonalization and Derealization Thought Process: Rumination Thought Content: positive for [place] and positive for Perseveration Depressive Symptoms: Increased Anxiety, Increased Irritability and Difficulty Concentrating Judgement: Poor Diagnostics Vital Signs (24Hr): Vital Signs - 24 hr 11/20/24 08:00 Pulse Rate 86 Respiratory Rate 18 Blood Pressure 155/95 H Pulse Oximetry 98 Oxygen Delivery Method Room Air BMI result Body Mass Index 27.1 Labs 10/28/24 09:10 11/11/24 08:31 Medications Medications Current Medications Acetaminophen (Acetaminophen 325 Mg Tablet) 650 mg PO Q6H PRN PRN Reason: Headache/Pain Mild Scale (1-3) Al Hydroxide/Mg Hydroxide (Magnesium Hydrox/Alum Hydrox 30 Ml Oral.Susp) 30 ml PO Q6H PRN PRN Reason: Heartburn/Nausea Atorvastatin Calcium (Atorvastatin Calcium 80 Mg Tablet) 80 mg PO BEDTIME [facility] Last Admin: 11/19/24 22:13 Dose: Not Given Benztropine Mesylate (Benztropine Mesylate 0.5 Mg Tablet) 1 mg PO BEDTIME [facility] Last Admin: 11/19/24 22:13 Dose: Not Given Diazepam (Diazepam 2 Mg Tablet) 2 mg PO TID [facility] Last Admin: 11/20/24 13:44 Dose: Not Given Empagliflozin (Empagliflozin 10 Mg Tablet) 10 mg PO DAILY [facility] Last Admin: 11/20/24 08:55 Dose: Not Given Furosemide (Furosemide 20 Mg Tablet) 20 mg PO DAILY [facility]; Protocol Last Admin: 11/20/24 08:55 Dose: Not Given Hydroxyzine HCl (Hydroxyzine Hcl 25 Mg Tablet) 25 mg PO Q6H PRN PRN Reason: Anxiety Last Admin: 11/18/24 17:38 Dose: 25 mg Lisinopril (Lisinopril 20 Mg Tablet) 20 mg PO DAILY [facility]; Protocol Last Admin: 11/20/24 08:55 Dose: Not Given Lorazepam (Lorazepam 1 Mg Tablet) 2 mg PO Q6H PRN PRN Reason: Agitation Last Admin: 11/20/24 13:34 Dose: 2 mg Magnesium Hydroxide (Milk Of Magnesia 30 Ml Oral.Susp) 30 ml PO DAILY PRN PRN Reason: Constipation Memantine (Memantine Hcl 5 Mg Tablet) 5 mg PO BID [facility] Last Admin: 11/20/24 08:56 Dose: Not Given Metformin HCl (Metformin Hcl Er 500 Mg Tab.Er.24h) 500 mg PO BID [facility] Last Admin: 11/20/24 08:56 Dose: Not Given Mirtazapine (Mirtazapine 30 Mg Tablet) 30 mg PO BEDTIME [facility] Last Admin: 11/19/24 22:14 Dose: Not Given Nicotine (Nicotine 21 Mg Patch.Td24) 21 mg TRANSDERMA DAILY PRN PRN Reason: nicotine cravings Nicotine Polacrilex (Nicotine Polacrilex 2 Mg Gum) 4 mg BUCCAL Q2H PRN PRN Reason: Nicotine Cravings Olanzapine (Olanzapine 10 Mg Tablet) 20 mg PO BEDTIME [facility] Last Admin: 11/19/24 22:14 Dose: Not Given Olanzapine (Olanzapine Odt 10 Mg Tab.Rapdis) 10 mg TRANSLINGU DAILY [facility] Last Admin: 11/20/24 08:56 Dose: Not Given Oxcarbazepine (Oxcarbazepine 300 Mg Tablet) 600 mg PO BID [facility] Last Admin: 11/20/24 08:56 Dose: Not Given Primidone (Primidone 50 Mg Tablet) 50 mg PO BID [facility] Last Admin: 11/20/24 08:56 Dose: Not Given Sertraline HCl (Sertraline Hcl 100 Mg Tablet) 100 mg PO DAILY [facility] Last Admin: 11/20/24 08:56 Dose: Not Given Tamsulosin HCl (Tamsulosin Hcl 0.4 Mg Capsule) 0.4 mg PO DAILY [facility] Last Admin: 11/20/24 08:56 Dose: Not Given Trazodone HCl (Trazodone Hcl 50 Mg Tablet) 50 mg PO BEDTIME MRX1 PRN PRN Reason: Insomnia Last Admin: 11/07/24 22:07 Dose: 50 mg Allergies Allergies Allergy/AdvReac Type Severity Reaction Status Date / Time No Known Allergies Allergy Verified 10/14/24 18:14 [No Known Allergies*] Assessment & Plan Assessment & Plan (1) Mood disorder: Status: Acute Code(s): F39 - Unspecified mood [affective] disorder (2) Autism spectrum disorder: Status: Acute Code(s): F84.0 - Autistic disorder (3) Neurocognitive disorder: Status: Acute Code(s): R41.9 - Unspecified symptoms and signs involving cognitive functions and awareness Plan Humza was admitted for safety and stabilization. His presentation is very similar to his last admission psychiatrically about a year ago and that is why his caregivers wanted to get ahead of things before he decompensated further. Current medications were reviewed and maintained. Contacts to be made with his treaters next week. 10/17: Continue current regimen and plans 10/19: Continue current tx plan and regime. 10/21: Memantine 5 mg daily- [facility], memory sx Abilify 2 mg daily-augment to antidepressants currently being used. 10/22 continue current tx plan -pt confused 10/23 Continue trials, regime and plan. 10/24: Continue regime and plan of care. 10/25 Abilify increased up to 5 mg. 10/26 keep on same treatment 10/27/24 continues with many complaints, no clear insight into self- 10/28 continue same treatment 10/29 increase Namenda to 5 mg p.o. b.i.d. and change Depakote to Depakene. Depakote level on 13/02 as per blood work of yesterday 10/30/24 - dc abilify inc olanzapine = continue depakene as he did take 5 capsules this am- prn olanzapine given - this afternoon for behaviors on unit- 10/31/24 wrote for liquid depakote option if refuses capsules, also got prn olanzapine for throwing self on floor 1/6 keep same treatment 11/02 increase Zyprexa to 20 mg p.o. q.h.s. 11/03 keep same treatment. 11/04 discontinue Depakote and start Trileptal 300 mg p.o. b.i.d.. Her healthcare proxy will bring a copy of that we are going to invoke it 11/06 increase olanzapine to 20mg po qhs and 10mg po daily. 11/07 continue tx. Plan 11/19 scheduled valium 2mg po TID for explosive/intense emotions. he reports voices telling him not to take medications, wondering if lowering sertraline may help decrease psychosis, if in fact these voices are of psychotic nature. 11/20 continue current plan of care Reason for continued inpatient stay Substantial Risk for: rapid decompensation Time Spent With Patient Time: Total time managing care of this patient today ____ minutes.
[2024-11-21 08:00] VITALS: RESP 18
--- NOTE | 2024-11-21 08:41 | HO.PSYCHPN ---
Subjective Subjective Date of Service: 11/21/24 Reason For Visit: Anxiety, mood disorder, ASD Interim History: Pt seen and discussed with the team. I am sorry for what I said to you yesterday, I did not mean it. Will I be arrested? I am in enough trouble already. Assured pt regarding our meeting on 11/21. Refusing medications, team reports no behaviors of concern. Calmer today, able to accept support and reassurance. Review of Systems Review of Systems I am OK . Mental Status Exam Mental Status Exam Patient Appearance: Disheveled Patient Orientation: Person and Place Level of Consciousness: Alert Patient Behavior: Guarded, Talkative, Resistive to Care and Good Eye Contact Mood Description: Withdrawn, Fearful, Anxious, Nervous and Apprehensive Affect Description: Nervous Patient Cognition Impaired: Yes Ability to Follow Directions: Fair Speech Pattern: Spontaneous Speech Memory Description: Remote Impaired Hallucinations: None Delusions: Paranoid Ideation and Present Perceptual Disturbances: Depersonalization and Derealization Thought Process: Rumination Thought Content: positive for [place], positive for [place] and positive for Suicidal Ideation (denies) Depressive Symptoms: Increased Anxiety, Increased Irritability and Difficulty Concentrating Judgement: Poor Diagnostics Vital Signs (24Hr): BMI result Body Mass Index 27.1 Labs 10/28/24 09:10 11/11/24 08:31 Medications Medications Current Medications Acetaminophen (Acetaminophen 325 Mg Tablet) 650 mg PO Q6H PRN PRN Reason: Headache/Pain Mild Scale (1-3) Al Hydroxide/Mg Hydroxide (Magnesium Hydrox/Alum Hydrox 30 Ml Oral.Susp) 30 ml PO Q6H PRN PRN Reason: Heartburn/Nausea Atorvastatin Calcium (Atorvastatin Calcium 80 Mg Tablet) 80 mg PO BEDTIME [facility] Last Admin: 11/20/24 21:40 Dose: Not Given Benztropine Mesylate (Benztropine Mesylate 0.5 Mg Tablet) 1 mg PO BEDTIME [facility] Last Admin: 11/20/24 21:40 Dose: Not Given Diazepam (Diazepam 2 Mg Tablet) 2 mg PO TID [facility] Last Admin: 11/20/24 21:40 Dose: Not Given Empagliflozin (Empagliflozin 10 Mg Tablet) 10 mg PO DAILY [facility] Last Admin: 11/20/24 08:55 Dose: Not Given Furosemide (Furosemide 20 Mg Tablet) 20 mg PO DAILY [facility]; Protocol Last Admin: 11/20/24 08:55 Dose: Not Given Hydroxyzine HCl (Hydroxyzine Hcl 25 Mg Tablet) 25 mg PO Q6H PRN PRN Reason: Anxiety Last Admin: 11/18/24 17:38 Dose: 25 mg Lisinopril (Lisinopril 20 Mg Tablet) 20 mg PO DAILY [facility]; Protocol Last Admin: 11/20/24 08:55 Dose: Not Given Lorazepam (Lorazepam 1 Mg Tablet) 2 mg PO Q6H PRN PRN Reason: Agitation Last Admin: 11/20/24 13:34 Dose: 2 mg Magnesium Hydroxide (Milk Of Magnesia 30 Ml Oral.Susp) 30 ml PO DAILY PRN PRN Reason: Constipation Memantine (Memantine Hcl 5 Mg Tablet) 5 mg PO BID [facility] Last Admin: 11/20/24 21:41 Dose: Not Given Metformin HCl (Metformin Hcl Er 500 Mg Tab.Er.24h) 500 mg PO BID [facility] Last Admin: 11/20/24 21:42 Dose: Not Given Mirtazapine (Mirtazapine 30 Mg Tablet) 30 mg PO BEDTIME [facility] Last Admin: 11/20/24 21:40 Dose: Not Given Nicotine (Nicotine 21 Mg Patch.Td24) 21 mg TRANSDERMA DAILY PRN PRN Reason: nicotine cravings Nicotine Polacrilex (Nicotine Polacrilex 2 Mg Gum) 4 mg BUCCAL Q2H PRN PRN Reason: Nicotine Cravings Olanzapine (Olanzapine 10 Mg Tablet) 20 mg PO BEDTIME [facility] Last Admin: 11/20/24 21:40 Dose: Not Given Olanzapine (Olanzapine Odt 10 Mg Tab.Rapdis) 10 mg TRANSLINGU DAILY [facility] Last Admin: 11/20/24 08:56 Dose: Not Given Oxcarbazepine (Oxcarbazepine 300 Mg Tablet) 600 mg PO BID [facility] Last Admin: 11/20/24 21:41 Dose: Not Given Primidone (Primidone 50 Mg Tablet) 50 mg PO BID [facility] Last Admin: 11/20/24 21:41 Dose: Not Given Sertraline HCl (Sertraline Hcl 100 Mg Tablet) 100 mg PO DAILY [facility] Last Admin: 11/20/24 08:56 Dose: Not Given Tamsulosin HCl (Tamsulosin Hcl 0.4 Mg Capsule) 0.4 mg PO DAILY [facility] Last Admin: 11/20/24 08:56 Dose: Not Given Trazodone HCl (Trazodone Hcl 50 Mg Tablet) 50 mg PO BEDTIME MRX1 PRN PRN Reason: Insomnia Last Admin: 11/07/24 22:07 Dose: 50 mg Allergies Allergies Allergy/AdvReac Type Severity Reaction Status Date / Time No Known Allergies Allergy Verified 10/14/24 18:14 [No Known Allergies*] Assessment & Plan Assessment & Plan (1) Mood disorder: Status: Acute Code(s): F39 - Unspecified mood [affective] disorder (2) Autism spectrum disorder: Status: Acute Code(s): F84.0 - Autistic disorder (3) Neurocognitive disorder: Status: Acute Code(s): R41.9 - Unspecified symptoms and signs involving cognitive functions and awareness Plan Humza was admitted for safety and stabilization. His presentation is very similar to his last admission psychiatrically about a year ago and that is why his caregivers wanted to get ahead of things before he decompensated further. Current medications were reviewed and maintained. Contacts to be made with his treaters next week. 10/17: Continue current regimen and plans 10/19: Continue current tx plan and regime. 10/21: Memantine 5 mg daily- [facility], memory sx Abilify 2 mg daily-augment to antidepressants currently being used. 10/22 continue current tx plan -pt confused 10/23 Continue trials, regime and plan. 10/24: Continue regime and plan of care. 10/25 Abilify increased up to 5 mg. 10/26 keep on same treatment 10/27/24 continues with many complaints, no clear insight into self- 10/28 continue same treatment 10/29 increase Namenda to 5 mg p.o. b.i.d. and change Depakote to Depakene. Depakote level on 13/02 as per blood work of yesterday 10/30/24 - [facility] olanzapine = continue depakene as he did take 5 capsules this am- prn olanzapine given - this afternoon for behaviors on unit- 10/31/24 wrote for liquid depakote option if refuses capsules, also got prn olanzapine for throwing self on floor 11/01 keep same treatment 11/02 increase Zyprexa to 20 mg p.o. q.h.s. 11/03 keep same treatment. 11/04 discontinue Depakote and start Trileptal 300 mg p.o. b.i.d.. Her healthcare proxy will bring a copy of that we are going to invoke it 11/06 increase olanzapine to 20mg po qhs and 10mg po daily. 11/07 continue tx. Plan 11/19 scheduled valium 2mg po TID for explosive/intense emotions. he reports voices telling him not to take medications, wondering if lowering sertraline may help decrease psychosis, if in fact these voices are of psychotic nature. 11/20 continue current plan of care 11/21 continue tx Reason for continued inpatient stay Substantial Risk for: rapid decompensation Time Spent With Patient Time: Total time managing care of this patient today ____ minutes.
[2024-11-21] MEDS: LORazepam 1 MG TABLET 2 MG PO (11:16)
--- NOTE | 2024-11-21 14:45 | PC.NURSE ---
Patient declined vital signs and scheduled medications even after several attempts and education from web content writer, Dr. Moises Miranda notified.
[2024-11-21] MEDS: OLANZapine 10 MG TABLET 20 MG PO (20:32)
[2024-11-22 08:00] VITALS: RESP 18
--- NOTE | 2024-11-22 09:48 | HO.PSYCHPN ---
Subjective Subjective Date of Service: 11/22/24 Reason For Visit: Anxiety, mood disorder, ASD Subjective Notes: Conditional Voluntary Healthcare Proxy: Yes Interim History: The nursing staff reported no restraints during the weekend, he had been less agitated and he took p.r.n. Ativan. He was seen watching TV and he slept 7 hours. Even though, he had been noncompliant with medications. On interview the patient remains internally preoccupied, I advised him of compliance. Medication Compliance: No Side effects from medications: No Attending Groups: No Mental Status Exam Mental Status Exam Patient Appearance: Unkempt Patient Orientation: Person and Situation Level of Consciousness: Restless Patient Behavior: Guarded and Passive Mood Description: Withdrawn Affect Description: Labile Patient Cognition Impaired: Yes Ability to Follow Directions: Fair Speech Pattern: Impoverished Hallucinations: None Delusions: Ideas of Reference Thought Process: Illogical, Distracted and Slowed Thinking Thought Content: positive for [place] and positive for Poverty of Content Judgement: Poor Diagnostics Vital Signs (24Hr): BMI result Body Mass Index 27.1 Labs 10/28/24 09:10 11/11/24 08:31 Medications Medications Current Medications Acetaminophen (Acetaminophen 325 Mg Tablet) 650 mg PO Q6H PRN PRN Reason: Headache/Pain Mild Scale (1-3) Al Hydroxide/Mg Hydroxide (Magnesium Hydrox/Alum Hydrox 30 Ml Oral.Susp) 30 ml PO Q6H PRN PRN Reason: Heartburn/Nausea Atorvastatin Calcium (Atorvastatin Calcium 80 Mg Tablet) 80 mg PO BEDTIME [facility] Last Admin: 11/21/24 21:29 Dose: Not Given Benztropine Mesylate (Benztropine Mesylate 0.5 Mg Tablet) 1 mg PO BEDTIME [facility] Last Admin: 11/21/24 21:30 Dose: Not Given Diazepam (Diazepam 2 Mg Tablet) 2 mg PO TID [facility] Last Admin: 11/21/24 21:18 Dose: Not Given Empagliflozin (Empagliflozin 10 Mg Tablet) 10 mg PO DAILY [facility] Last Admin: 11/21/24 10:08 Dose: Not Given Furosemide (Furosemide 20 Mg Tablet) 20 mg PO DAILY [facility]; Protocol Last Admin: 11/21/24 10:09 Dose: Not Given Hydroxyzine HCl (Hydroxyzine Hcl 25 Mg Tablet) 25 mg PO Q6H PRN PRN Reason: Anxiety Last Admin: 11/18/24 17:38 Dose: 25 mg Lisinopril (Lisinopril 20 Mg Tablet) 20 mg PO DAILY [facility]; Protocol Last Admin: 11/21/24 10:09 Dose: Not Given Lorazepam (Lorazepam 1 Mg Tablet) 2 mg PO Q6H PRN PRN Reason: Agitation Last Admin: 11/21/24 11:16 Dose: 2 mg Magnesium Hydroxide (Milk Of Magnesia 30 Ml Oral.Susp) 30 ml PO DAILY PRN PRN Reason: Constipation Memantine (Memantine Hcl 5 Mg Tablet) 5 mg PO BID [facility] Last Admin: 11/21/24 21:18 Dose: Not Given Metformin HCl (Metformin Hcl Er 500 Mg Tab.Er.24h) 500 mg PO BID [facility] Last Admin: 11/21/24 21:18 Dose: Not Given Mirtazapine (Mirtazapine 30 Mg Tablet) 30 mg PO BEDTIME [facility] Last Admin: 11/21/24 21:18 Dose: Not Given Nicotine (Nicotine 21 Mg Patch.Td24) 21 mg TRANSDERMA DAILY PRN PRN Reason: nicotine cravings Nicotine Polacrilex (Nicotine Polacrilex 2 Mg Gum) 4 mg BUCCAL Q2H PRN PRN Reason: Nicotine Cravings Olanzapine (Olanzapine 10 Mg Tablet) 20 mg PO BEDTIME [facility] Last Admin: 11/21/24 20:32 Dose: 20 mg Olanzapine (Olanzapine Odt 10 Mg Tab.Rapdis) 10 mg TRANSLINGU DAILY [facility] Last Admin: 11/21/24 10:10 Dose: Not Given Oxcarbazepine (Oxcarbazepine 300 Mg Tablet) 600 mg PO BID [facility] Last Admin: 11/21/24 21:19 Dose: Not Given Primidone (Primidone 50 Mg Tablet) 50 mg PO BID [facility] Last Admin: 11/21/24 21:19 Dose: Not Given Sertraline HCl (Sertraline Hcl 100 Mg Tablet) 100 mg PO DAILY [facility] Last Admin: 11/21/24 10:11 Dose: Not Given Tamsulosin HCl (Tamsulosin Hcl 0.4 Mg Capsule) 0.4 mg PO DAILY [facility] Last Admin: 11/21/24 10:11 Dose: Not Given Trazodone HCl (Trazodone Hcl 50 Mg Tablet) 50 mg PO BEDTIME MRX1 PRN PRN Reason: Insomnia Last Admin: 11/07/24 22:07 Dose: 50 mg Allergies Allergies Allergy/AdvReac Type Severity Reaction Status Date / Time No Known Allergies Allergy Verified 10/14/24 18:14 [No Known Allergies*] Assessment & Plan Assessment & Plan (1) Mood disorder: Status: Acute Code(s): F39 - Unspecified mood [affective] disorder (2) Autism spectrum disorder: Status: Acute Code(s): F84.0 - Autistic disorder (3) Neurocognitive disorder: Status: Acute Code(s): R41.9 - Unspecified symptoms and signs involving cognitive functions and awareness Plan Humza was admitted for safety and stabilization. His presentation is very similar to his last admission psychiatrically about a year ago and that is why his caregivers wanted to get ahead of things before he decompensated further. Current medications were reviewed and maintained. Contacts to be made with his treaters next week. 10/17: Continue current regimen and plans 10/19: Continue current tx plan and regime. 10/21: Memantine 5 mg daily- [facility], memory sx Abilify 2 mg daily-augment to antidepressants currently being used. 10/22 continue current tx plan -pt confused 10/23 Continue trials, regime and plan. 10/24: Continue regime and plan of care. 10/25 Abilify increased up to 5 mg. 10/26 keep on same treatment 10/27/24 continues with many complaints, no clear insight into self- 10/28 continue same treatment 10/29 increase Namenda to 5 mg p.o. b.i.d. and change Depakote to Depakene. Depakote level on 13/02 as per blood work of yesterday 10/30/24 - [place] [facility] olanzapine = continue depakene as he did take 5 capsules this am- prn olanzapine given - this afternoon for behaviors on unit- 10/31/24 wrote for liquid depakote option if refuses capsules, also got prn olanzapine for throwing self on floor 11/01 keep same treatment 11/02 increase Zyprexa to 20 mg p.o. q.h.s. 11/03 keep same treatment. 11/04 discontinue Depakote and start Trileptal 300 mg p.o. b.i.d.. Her healthcare proxy will bring a copy of that we are going to invoke it 11/06 increase olanzapine to 20mg po qhs and 10mg po daily. 1/12 continue tx. Plan 1. Continue with Zyprexa prescribed in the morning and the evening. He remains noncompliant of this medication. 2. Continue with Valium 2 mg p.o. t.i.d. to target anxiety. 3. Zoloft 100 mg p.o. daily to target depression. 4. Continue on close observation for safety. Reason for continued inpatient stay Substantial Risk for: inability to function, rapid decompensation and med/psych decompensation Time Spent With Patient Time: Total time managing care of this patient today _20___ minutes.
[2024-11-22] MEDS: diazePAM 2 MG TABLET PO ×2 (09:59→15:33)
[2024-11-22] MEDS: OLANZapine ODT 10 MG TAB.RAPDIS TRANSLINGU (09:59)
[2024-11-22] MEDS: OXcarbazepine 300 MG TABLET 600 MG PO (09:59)
[2024-11-23 08:00] VITALS: RESP 18
[2024-11-23] MEDS: diazePAM 2 MG TABLET PO (10:30)
--- NOTE | 2024-11-23 11:07 | P.PNPSI_ITS ---
Subjective Subjective Date of Service: 11/23/24 Reason For Visit: Anxiety, mood disorder, ASD Subjective Notes: Conditional Voluntary Healthcare Proxy: Yes Interim History: The nursing staff reported the patient has tried to strangle himself and needed to be redirected, he took a few medications but noncompliant in the morning. He is waiting for the information of the healthcare proxy. On interview the patient remains dysphoric, noncompliant with medications but so far no new restraints. Mental Status Exam Mental Status Exam Patient Appearance: Unkempt Patient Orientation: Person Level of Consciousness: Awake Patient Behavior: Guarded and Passive Mood Description: Withdrawn Affect Description: Constricted Patient Cognition Impaired: Yes Ability to Follow Directions: Good Speech Pattern: Clear Hallucinations: Auditory Delusions: Paranoid Ideation and Ideas of Reference Thought Process: Distracted Thought Content: positive for [place] and positive for Poverty of Content Judgement: Poor Diagnostics Vital Signs (24Hr): Vital Signs - 24 hr 11/23/24 08:00 Respiratory Rate 18 BMI result Body Mass Index 27.1 Labs 10/28/24 09:10 11/11/24 08:31 Medications Medications Current Medications Acetaminophen (Acetaminophen 325 Mg Tablet) 650 mg PO Q6H PRN PRN Reason: Headache/Pain Mild Scale (1-3) Al Hydroxide/Mg Hydroxide (Magnesium Hydrox/Alum Hydrox 30 Ml Oral.Susp) 30 ml PO Q6H PRN PRN Reason: Heartburn/Nausea Atorvastatin Calcium (Atorvastatin Calcium 80 Mg Tablet) 80 mg PO BEDTIME [facility] Last Admin: 11/22/24 21:01 Dose: Not Given Benztropine Mesylate (Benztropine Mesylate 0.5 Mg Tablet) 1 mg PO BEDTIME [facility] Last Admin: 11/22/24 21:01 Dose: Not Given Diazepam (Diazepam 2 Mg Tablet) 2 mg PO TID [facility] Last Admin: 11/23/24 10:30 Dose: 2 mg Empagliflozin (Empagliflozin 10 Mg Tablet) 10 mg PO DAILY [facility] Last Admin: 11/23/24 09:04 Dose: Not Given Furosemide (Furosemide 20 Mg Tablet) 20 mg PO DAILY [facility]; Protocol Last Admin: 11/23/24 09:05 Dose: Not Given Hydroxyzine HCl (Hydroxyzine Hcl 25 Mg Tablet) 25 mg PO Q6H PRN PRN Reason: Anxiety Last Admin: 11/18/24 17:38 Dose: 25 mg Lisinopril (Lisinopril 20 Mg Tablet) 20 mg PO DAILY [facility]; Protocol Last Admin: 11/23/24 09:05 Dose: Not Given Lorazepam (Lorazepam 1 Mg Tablet) 2 mg PO Q6H PRN PRN Reason: Agitation Last Admin: 11/21/24 11:16 Dose: 2 mg Magnesium Hydroxide (Milk Of Magnesia 30 Ml Oral.Susp) 30 ml PO DAILY PRN PRN Reason: Constipation Memantine (Memantine Hcl 5 Mg Tablet) 5 mg PO BID [facility] Last Admin: 11/23/24 09:05 Dose: Not Given Metformin HCl (Metformin Hcl Er 500 Mg Tab.Er.24h) 500 mg PO BID [facility] Last Admin: 11/23/24 09:05 Dose: Not Given Mirtazapine (Mirtazapine 30 Mg Tablet) 30 mg PO BEDTIME [facility] Last Admin: 11/22/24 21:01 Dose: Not Given Nicotine (Nicotine 21 Mg Patch.Td24) 21 mg TRANSDERMA DAILY PRN PRN Reason: nicotine cravings Nicotine Polacrilex (Nicotine Polacrilex 2 Mg Gum) 4 mg BUCCAL Q2H PRN PRN Reason: Nicotine Cravings Olanzapine (Olanzapine 10 Mg Tablet) 20 mg PO BEDTIME [facility] Last Admin: 11/22/24 21:02 Dose: Not Given Olanzapine (Olanzapine Odt 10 Mg Tab.Rapdis) 10 mg TRANSLINGU DAILY [facility] Last Admin: 11/23/24 09:05 Dose: Not Given Oxcarbazepine (Oxcarbazepine 300 Mg Tablet) 600 mg PO BID [facility] Last Admin: 11/23/24 09:05 Dose: Not Given Primidone (Primidone 50 Mg Tablet) 50 mg PO BID [facility] Last Admin: 11/23/24 09:05 Dose: Not Given Sertraline HCl (Sertraline Hcl 100 Mg Tablet) 100 mg PO DAILY [facility] Last Admin: 11/23/24 09:05 Dose: Not Given Tamsulosin HCl (Tamsulosin Hcl 0.4 Mg Capsule) 0.4 mg PO DAILY [facility] Last Admin: 11/23/24 09:05 Dose: Not Given Trazodone HCl (Trazodone Hcl 50 Mg Tablet) 50 mg PO BEDTIME MRX1 PRN PRN Reason: Insomnia Last Admin: 11/07/24 22:07 Dose: 50 mg Allergies Allergies Allergy/AdvReac Type Severity Reaction Status Date / Time No Known Allergies Allergy Verified 10/14/24 18:14 [No Known Allergies*] Assessment & Plan Assessment & Plan (1) Mood disorder: Status: Acute Code(s): F39 - Unspecified mood [affective] disorder (2) Autism spectrum disorder: Status: Acute Code(s): F84.0 - Autistic disorder (3) Neurocognitive disorder: Status: Acute Code(s): R41.9 - Unspecified symptoms and signs involving cognitive functions and awareness Plan Humza was admitted for safety and stabilization. His presentation is very similar to his last admission psychiatrically about a year ago and that is why his caregivers wanted to get ahead of things before he decompensated further. Current medications were reviewed and maintained. Contacts to be made with his treaters next week. 10/17: Continue current regimen and plans 10/19: Continue current tx plan and regime. 10/21: Memantine 5 mg daily- [facility], memory sx Abilify 2 mg daily-augment to antidepressants currently being used. 10/22 continue current tx plan -pt confused 10/23 Continue trials, regime and plan. 10/24: Continue regime and plan of care. 10/25 Abilify increased up to 5 mg. 10/26 keep on same treatment 10/27/24 continues with many complaints, no clear insight into self- 10/28 continue same treatment 10/29 increase Namenda to 5 mg p.o. b.i.d. and change Depakote to Depakene. Depakote level on 13/02 as per blood work of yesterday 10/30/24 - [facility] olanzapine = continue depakene as he did take 5 capsules this am- prn olanzapine given - this afternoon for behaviors on unit- 10/31/24 wrote for liquid depakote option if refuses capsules, also got prn olanzapine for throwing self on floor 11/01 keep same treatment 11/02 increase Zyprexa to 20 mg p.o. q.h.s. 11/03 keep same treatment. 11/04 discontinue Depakote and start Trileptal 300 mg p.o. b.i.d.. Her healthcare proxy will bring a copy of that we are going to invoke it 11/06 increase olanzapine to 20mg po qhs and 10mg po daily. 11/07 continue tx. Plan 1. Continue with Zyprexa prescribed in the morning and the evening. He remains noncompliant of this medication. 2. Continue with Valium 2 mg p.o. t.i.d. to target anxiety. 3. Zoloft 100 mg p.o. daily to target depression. 4. Continue on close observation for safety. Reason for continued inpatient stay Substantial Risk for: inability to function, rapid decompensation and med/psych decompensation Time Spent With Patient Time: Total time managing care of this patient today __20__ minutes.
[2024-11-24 08:00] VITALS: RESP 18
--- NOTE | 2024-11-24 09:10 | PC.NURSE ---
Humza declined to have vital signs taken and declined medications despite encouragement and education from this typewriter ribbon winder. Dr. Steiner notified.
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
[2024-11-24 11:07] VITALS: RESP 20
[2024-11-24] MEDS: LORazepam 2 MG/ML VIAL IM (11:13)
[2024-11-24] MEDS: OLANZapine 10 MG VIAL 20 MG IM (11:14)
[2024-11-24 11:22] VITALS: RESP 18
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
[2024-11-24 11:37] VITALS: RESP 18
[2024-11-24 11:52] VITALS: RESP 16
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
[2024-11-24] MEDS: OLANZapine 10 MG TABLET 20 MG PO (21:26)
[2024-11-25 07:00] VITALS: BMI 26.7
[2024-11-25] MEDS: diazePAM 2 MG TABLET PO ×2 (08:25→17:26)
[2024-11-25 10:37] VITALS: BP 142/92; PULSE 77; RESP 18; TEMP 36.3; O2SAT 98
[2024-11-25] MEDS: LORazepam 1 MG TABLET 2 MG PO (13:28)
--- NOTE | 2024-11-25 15:43 | P.PNPSI_ITS ---
Subjective Subjective Date of Service: 11/25/24 Reason For Visit: Anxiety, mood disorder, ASD Subjective Notes: Conditional Voluntary Interim History: The nursing staff reported the patient received IM Zyprexa yesterday. He had been suspicious slept 8 hours. On interview the patient reports that he has not taking his medications in the morning. She had been poorly compliant with medications for the last days. Mental Status Exam Mental Status Exam Patient Appearance: Appropriate Patient Orientation: Person and Situation Level of Consciousness: Awake and Appropriate Patient Behavior: Guarded and Passive Mood Description: Withdrawn Affect Description: Constricted Patient Cognition Impaired: Yes Ability to Follow Directions: Good Speech Pattern: Clear Hallucinations: None Delusions: Paranoid Ideation and Ideas of Reference Thought Process: Distracted and Slowed Thinking Thought Content: positive for [place] and positive for Poverty of Content Judgement: Poor Diagnostics Vital Signs (24Hr): Vital Signs - 24 hr 11/25/24 10:37 Temperature 97.4 F Pulse Rate 77 Respiratory Rate 18 Blood Pressure 142/92 H Pulse Oximetry 98 Oxygen Delivery Method Room Air BMI result Body Mass Index 26.7 Labs 10/28/24 09:10 11/11/24 08:31 Medications Medications Current Medications Acetaminophen (Acetaminophen 325 Mg Tablet) 650 mg PO Q6H PRN PRN Reason: Headache/Pain Mild Scale (1-3) Al Hydroxide/Mg Hydroxide (Magnesium Hydrox/Alum Hydrox 30 Ml Oral.Susp) 30 ml PO Q6H PRN PRN Reason: Heartburn/Nausea Atorvastatin Calcium (Atorvastatin Calcium 80 Mg Tablet) 80 mg PO BEDTIME [facility]IR[facility] Last Admin: 11/24/24 22:00 Dose: Not Given Benztropine Mesylate (Benztropine Mesylate 0.5 Mg Tablet) 1 mg PO BEDTIME [facility]IR[facility] Last Admin: 11/24/24 22:00 Dose: Not Given Diazepam (Diazepam 2 Mg Tablet) 2 mg PO TID [facility] Last Admin: 11/25/24 08:25 Dose: 2 mg Empagliflozin (Empagliflozin 10 Mg Tablet) 10 mg PO DAILY [facility] Last Admin: 11/25/24 14:04 Dose: Not Given Furosemide (Furosemide 20 Mg Tablet) 20 mg PO DAILY [facility]; Protocol Last Admin: 11/25/24 14:04 Dose: Not Given Hydroxyzine HCl (Hydroxyzine Hcl 25 Mg Tablet) 25 mg PO Q6H PRN PRN Reason: Anxiety Last Admin: 11/18/24 17:38 Dose: 25 mg Lisinopril (Lisinopril 20 Mg Tablet) 20 mg PO DAILY [facility]; Protocol Last Admin: 11/25/24 14:04 Dose: Not Given Lorazepam (Lorazepam 1 Mg Tablet) 2 mg PO Q6H PRN PRN Reason: Agitation Last Admin: 11/25/24 13:28 Dose: 2 mg Magnesium Hydroxide (Milk Of Magnesia 30 Ml Oral.Susp) 30 ml PO DAILY PRN PRN Reason: Constipation Memantine (Memantine Hcl 5 Mg Tablet) 5 mg PO BID [facility] Last Admin: 11/25/24 14:04 Dose: Not Given Metformin HCl (Metformin Hcl Er 500 Mg Tab.Er.24h) 500 mg PO BID [facility] Last Admin: 11/25/24 14:04 Dose: Not Given Mirtazapine (Mirtazapine 30 Mg Tablet) 30 mg PO BEDTIME [facility] Last Admin: 11/24/24 22:01 Dose: Not Given Nicotine (Nicotine 21 Mg Patch.Td24) 21 mg TRANSDERMA DAILY PRN PRN Reason: nicotine cravings Nicotine Polacrilex (Nicotine Polacrilex 2 Mg Gum) 4 mg BUCCAL Q2H PRN PRN Reason: Nicotine Cravings Olanzapine (Olanzapine 10 Mg Tablet) 20 mg PO BEDTIME [facility] Last Admin: 11/24/24 21:26 Dose: 20 mg Olanzapine (Olanzapine Odt 10 Mg Tab.Rapdis) 10 mg TRANSLINGU DAILY [facility] Last Admin: 11/25/24 14:05 Dose: Not Given Oxcarbazepine (Oxcarbazepine 300 Mg Tablet) 600 mg PO BID [facility] Last Admin: 11/25/24 14:05 Dose: Not Given Primidone (Primidone 50 Mg Tablet) 50 mg PO BID [facility] Last Admin: 11/25/24 14:05 Dose: Not Given Sertraline HCl (Sertraline Hcl 100 Mg Tablet) 100 mg PO DAILY [facility] Last Admin: 11/25/24 14:05 Dose: Not Given Tamsulosin HCl (Tamsulosin Hcl 0.4 Mg Capsule) 0.4 mg PO DAILY [facility] Last Admin: 11/25/24 14:05 Dose: Not Given Trazodone HCl (Trazodone Hcl 50 Mg Tablet) 50 mg PO BEDTIME MRX1 PRN PRN Reason: Insomnia Last Admin: 11/07/24 22:07 Dose: 50 mg Allergies Allergies Allergy/AdvReac Type Severity Reaction Status Date / Time No Known Allergies Allergy Verified 10/14/24 18:14 [No Known Allergies*] Assessment & Plan Assessment & Plan (1) Mood disorder: Status: Acute Code(s): F39 - Unspecified mood [affective] disorder (2) Autism spectrum disorder: Status: Acute Code(s): F84.0 - Autistic disorder (3) Neurocognitive disorder: Status: Acute Code(s): R41.9 - Unspecified symptoms and signs involving cognitive functions and awareness Plan Humza was admitted for safety and stabilization. His presentation is very similar to his last admission psychiatrically about a year ago and that is why his caregivers wanted to get ahead of things before he decompensated further. Current medications were reviewed and maintained. Contacts to be made with his treaters next week. 10/17: Continue current regimen and plans 10/19: Continue current tx plan and regime. 10/21: Memantine 5 mg daily- [facility], memory sx Abilify 2 mg daily-augment to antidepressants currently being used. 10/22 continue current tx plan -pt confused 10/23 Continue trials, regime and plan. 10/24: Continue regime and plan of care. 10/25 Abilify increased up to 5 mg. 10/26 keep on same treatment 10/27/24 continues with many complaints, no clear insight into self- 10/28 continue same treatment 10/29 increase Namenda to 5 mg p.o. b.i.d. and change Depakote to Depakene. Depakote level on 13/02 as per blood work of yesterday 10/30/24 - [facility] [employer] olanzapine = continue depakene as he did take 5 capsules this am- prn olanzapine given - this afternoon for behaviors on unit- 10/31/24 wrote for liquid depakote option if refuses capsules, also got prn olanzapine for throwing self on floor 11/01 keep same treatment 11/02 increase Zyprexa to 20 mg p.o. q.h.s. 11/03 keep same treatment. 11/04 discontinue Depakote and start Trileptal 300 mg p.o. b.i.d.. Her healthcare proxy will bring a copy of that we are going to invoke it 11/06 increase olanzapine to 20mg po qhs and 10mg po daily. 11/07 continue tx. Plan 1. Continue with Zyprexa prescribed in the morning and the evening. He remains noncompliant of this medication. 2. Continue with Valium 2 mg p.o. t.i.d. to target anxiety. 3. Zoloft 100 mg p.o. daily to target depression. 4. Continue on close observation for safety. Reason for continued inpatient stay Substantial Risk for: inability to function, rapid decompensation and med/psych decompensation Time Spent With Patient Time: Total time managing care of this patient today _20___ minutes.
[2024-11-26] MEDS: diazePAM 2 MG TABLET PO (08:20)
[2024-11-26] MEDS: LORazepam 1 MG TABLET 2 MG PO (09:05)
--- NOTE | 2024-11-26 13:35 | P.PNPSI_ITS ---
Subjective Subjective Date of Service: 11/26/24 Reason For Visit: Anxiety, mood disorder, ASD Subjective Notes: Conditional Voluntary Interim History: The nursing staff reported the patient had been yelling and posturing but redirected. In the afternoon she refused his medications. He had been paranoid and slept 6 hours. Today in the morning he was agitated and he only took Valium 2 mg and refused the rest. The staff has noticed that benzodiazepines worse for him so we are increasing Valium up to 5 mg p.o. t.i.d.. Mental Status Exam Mental Status Exam Patient Appearance: Appropriate Patient Orientation: Person and Situation Level of Consciousness: Awake and Restless Patient Behavior: Guarded and Suspicious Mood Description: Withdrawn Affect Description: Labile Patient Cognition Impaired: Yes Ability to Follow Directions: Good Speech Pattern: Clear Hallucinations: None Delusions: Paranoid Ideation and Ideas of Reference Thought Process: Distracted Thought Content: positive for [place] and positive for Poverty of Content Judgement: Poor Diagnostics Vital Signs (24Hr): BMI result Body Mass Index 26.7 Labs 10/28/24 09:10 11/11/24 08:31 Medications Medications Current Medications Acetaminophen (Acetaminophen 325 Mg Tablet) 650 mg PO Q6H PRN PRN Reason: Headache/Pain Mild Scale (1-3) Al Hydroxide/Mg Hydroxide (Magnesium Hydrox/Alum Hydrox 30 Ml Oral.Susp) 30 ml PO Q6H PRN PRN Reason: Heartburn/Nausea Atorvastatin Calcium (Atorvastatin Calcium 80 Mg Tablet) 80 mg PO BEDTIME DESIRAE Last Admin: 11/25/24 21:59 Dose: Not Given Benztropine Mesylate (Benztropine Mesylate 0.5 Mg Tablet) 1 mg PO BEDTIME [facility]IRAE Last Admin: 11/25/24 21:59 Dose: Not Given Diazepam (Diazepam 5 Mg Tablet) 5 mg PO TID [facility] Last Admin: 11/26/24 10:33 Dose: Not Given Empagliflozin (Empagliflozin 10 Mg Tablet) 10 mg PO DAILY [facility] Last Admin: 11/26/24 10:33 Dose: Not Given Furosemide (Furosemide 20 Mg Tablet) 20 mg PO DAILY [facility]; Protocol Last Admin: 11/26/24 10:33 Dose: Not Given Hydroxyzine HCl (Hydroxyzine Hcl 25 Mg Tablet) 25 mg PO Q6H PRN PRN Reason: Anxiety Last Admin: 11/18/24 17:38 Dose: 25 mg Lisinopril (Lisinopril 20 Mg Tablet) 20 mg PO DAILY [facility]; Protocol Last Admin: 11/26/24 10:33 Dose: Not Given Lorazepam (Lorazepam 1 Mg Tablet) 2 mg PO Q6H PRN PRN Reason: Agitation Last Admin: 11/26/24 09:05 Dose: 2 mg Magnesium Hydroxide (Milk Of Magnesia 30 Ml Oral.Susp) 30 ml PO DAILY PRN PRN Reason: Constipation Memantine (Memantine Hcl 5 Mg Tablet) 5 mg PO BID [facility] Last Admin: 11/26/24 10:34 Dose: Not Given Metformin HCl (Metformin Hcl Er 500 Mg Tab.Er.24h) 500 mg PO BID [facility] Last Admin: 11/26/24 10:34 Dose: Not Given Mirtazapine (Mirtazapine 30 Mg Tablet) 30 mg PO BEDTIME [facility] Last Admin: 11/25/24 22:00 Dose: Not Given Nicotine (Nicotine 21 Mg Patch.Td24) 21 mg TRANSDERMA DAILY PRN PRN Reason: nicotine cravings Nicotine Polacrilex (Nicotine Polacrilex 2 Mg Gum) 4 mg BUCCAL Q2H PRN PRN Reason: Nicotine Cravings Olanzapine (Olanzapine 10 Mg Tablet) 20 mg PO BEDTIME [facility] Last Admin: 11/25/24 22:00 Dose: Not Given Olanzapine (Olanzapine Odt 10 Mg Tab.Rapdis) 10 mg TRANSLINGU DAILY [facility] Last Admin: 11/26/24 10:34 Dose: Not Given Oxcarbazepine (Oxcarbazepine 300 Mg Tablet) 600 mg PO BID [facility] Last Admin: 11/26/24 10:35 Dose: Not Given Primidone (Primidone 50 Mg Tablet) 50 mg PO BID [facility] Last Admin: 11/26/24 10:35 Dose: Not Given Sertraline HCl (Sertraline Hcl 100 Mg Tablet) 100 mg PO DAILY [facility] Last Admin: 11/26/24 10:35 Dose: Not Given Tamsulosin HCl (Tamsulosin Hcl 0.4 Mg Capsule) 0.4 mg PO DAILY [facility] Last Admin: 11/26/24 10:36 Dose: Not Given Trazodone HCl (Trazodone Hcl 50 Mg Tablet) 50 mg PO BEDTIME MRX1 PRN PRN Reason: Insomnia Last Admin: 11/07/24 22:07 Dose: 50 mg Allergies Allergies Allergy/AdvReac Type Severity Reaction Status Date / Time No Known Allergies Allergy Verified 12/19/24 18:14 [No Known Allergies*] Assessment & Plan Assessment & Plan (1) Mood disorder: Status: Acute Code(s): F39 - Unspecified mood [affective] disorder (2) Autism spectrum disorder: Status: Acute Code(s): F84.0 - Autistic disorder (3) Neurocognitive disorder: Status: Acute Code(s): R41.9 - Unspecified symptoms and signs involving cognitive functions and awareness Plan Humza was admitted for safety and stabilization. His presentation is very similar to his last admission psychiatrically about a year ago and that is why his caregivers wanted to get ahead of things before he decompensated further. Current medications were reviewed and maintained. Contacts to be made with his treaters next week. 10/17: Continue current regimen and plans 10/19: Continue current tx plan and regime. 10/21: Memantine 5 mg daily- [facility], memory sx Abilify 2 mg daily-augment to antidepressants currently being used. 10/22 continue current tx plan -pt confused 10/23 Continue trials, regime and plan. 10/24: Continue regime and plan of care. 10/25 Abilify increased up to 5 mg. 10/26 keep on same treatment 10/27/24 continues with many complaints, no clear insight into self- 10/28 continue same treatment 10/29 increase Namenda to 5 mg p.o. b.i.d. and change Depakote to Depakene. Depakote level on 13/02 as per blood work of yesterday 10/30/24 - [place] [employer] olanzapine = continue depakene as he did take 5 capsules this am- prn olanzapine given - this afternoon for behaviors on unit- 10/31/24 wrote for liquid depakote option if refuses capsules, also got prn olanzapine for throwing self on floor 11/01 keep same treatment 11/02 increase Zyprexa to 20 mg p.o. q.h.s. 11/03 keep same treatment. 11/04 discontinue Depakote and start Trileptal 300 mg p.o. b.i.d.. Her healthcare proxy will bring a copy of that we are going to invoke it 11/06 increase olanzapine to 20mg po qhs and 10mg po daily. 11/07 continue tx. Plan 1. Continue with Zyprexa prescribed in the morning and the evening. He remains noncompliant of this medication. 2. Continue with Valium 2 mg p.o. t.i.d. to target anxiety. 3. Zoloft 100 mg p.o. daily to target depression. 4. Continue on close observation for safety. Reason for continued inpatient stay Substantial Risk for: inability to function, rapid decompensation and med/psych decompensation Time Spent With Patient Time: Total time managing care of this patient today __20__ minutes.
[2024-11-27 08:52] VITALS: BP 145/91; PULSE 88; RESP 16; TEMP 36.1; O2SAT 98
[2024-11-27] MEDS: diazePAM 5 MG TABLET PO (14:35)
--- NOTE | 2024-11-27 15:18 | PC.NURSE ---
Patient wanted to go to the bathroom at 1445 so he pulled his IV out before staff could stop him. Dr Foster updated and wanted IV restarted and fluids to be completed. At 22 gauge IV catheter inserted without difficulty into right hand by Monserrat Williamson RN, patient tolerated procedure well. IVF restarted at 250ml/hour at 1500. Patient with 1:1 until IV fluids are completed.
--- NOTE | 2024-11-27 17:22 | HO.PSYCHPN ---
Subjective Subjective Date of Service: 11/27/24 Reason For Visit: Anxiety, mood disorder, ASD Subjective Notes: Conditional Voluntary Interim History: Patient seen psychiatric follow-up case reviewed with nursing staff. Patient has not been taking his medications on a regular basis. Intermittently irritable posturing angry pos andrew Medication Compliance: No Attending Groups: No Mental Status Exam Mental Status Exam Narrative: Patient seen was standing intense look on his face wearing glasses. Would not engage in conversation would not discuss behavior . Patient was mostly not verbal was not threatening or aggressive when seen Diagnostics Vital Signs (24Hr): Vital Signs - 24 hr 11/27/24 08:52 Temperature 96.9 F Pulse Rate 88 Respiratory Rate 16 Blood Pressure 145/91 H Pulse Oximetry 98 Oxygen Delivery Method Room Air BMI result Body Mass Index 26.7 Labs 10/28/24 09:10 11/11/24 08:31 Medications Medications Current Medications Acetaminophen (Acetaminophen 325 Mg Tablet) 650 mg PO Q6H PRN PRN Reason: Headache/Pain Mild Scale (1-3) Al Hydroxide/Mg Hydroxide (Magnesium Hydrox/Alum Hydrox 30 Ml Oral.Susp) 30 ml PO Q6H PRN PRN Reason: Heartburn/Nausea Atorvastatin Calcium (Atorvastatin Calcium 80 Mg Tablet) 80 mg PO BEDTIME [facility] Last Admin: 11/26/24 22:38 Dose: Not Given Benztropine Mesylate (Benztropine Mesylate 0.5 Mg Tablet) 1 mg PO BEDTIME [facility] Last Admin: 11/26/24 22:38 Dose: Not Given Diazepam (Diazepam 5 Mg Tablet) 5 mg PO TID [facility] Last Admin: 11/27/24 14:35 Dose: 5 mg Empagliflozin (Empagliflozin 10 Mg Tablet) 10 mg PO DAILY [facility] Last Admin: 11/27/24 11:46 Dose: Not Given Furosemide (Furosemide 20 Mg Tablet) 20 mg PO DAILY [facility]; Protocol Last Admin: 11/27/24 11:46 Dose: Not Given Hydroxyzine HCl (Hydroxyzine Hcl 25 Mg Tablet) 25 mg PO Q6H PRN PRN Reason: Anxiety Last Admin: 11/18/24 17:38 Dose: 25 mg Lisinopril (Lisinopril 20 Mg Tablet) 20 mg PO DAILY [facility]; Protocol Last Admin: 11/27/24 11:46 Dose: Not Given Lorazepam (Lorazepam 1 Mg Tablet) 2 mg PO Q6H PRN PRN Reason: Agitation Last Admin: 11/26/24 09:05 Dose: 2 mg Magnesium Hydroxide (Milk Of Magnesia 30 Ml Oral.Susp) 30 ml PO DAILY PRN PRN Reason: Constipation Memantine (Memantine Hcl 5 Mg Tablet) 5 mg PO BID COUNTS INCLUDE 234 BEDS AT THE [facility] Last Admin: 11/27/24 11:47 Dose: Not Given Metformin HCl (Metformin Hcl Er 500 Mg Tab.Er.24h) 500 mg PO BID COUNTS INCLUDE 234 BEDS AT THE [facility] Last Admin: 11/27/24 11:47 Dose: Not Given Mirtazapine (Mirtazapine 30 Mg Tablet) 30 mg PO BEDTIME COUNTS INCLUDE 234 BEDS AT THE [facility] Last Admin: 11/26/24 22:38 Dose: Not Given Nicotine (Nicotine 21 Mg Patch.Td24) 21 mg TRANSDERMA DAILY PRN PRN Reason: nicotine cravings Nicotine Polacrilex (Nicotine Polacrilex 2 Mg Gum) 4 mg BUCCAL Q2H PRN PRN Reason: Nicotine Cravings Olanzapine (Olanzapine 10 Mg Tablet) 20 mg PO BEDTIME COUNTS INCLUDE 234 BEDS AT THE [facility] Last Admin: 11/26/24 22:38 Dose: Not Given Olanzapine (Olanzapine Odt 10 Mg Tab.Rapdis) 10 mg TRANSLINGU DAILY COUNTS INCLUDE 234 BEDS AT THE [facility] Last Admin: 11/27/24 11:47 Dose: Not Given Oxcarbazepine (Oxcarbazepine 300 Mg Tablet) 600 mg PO BID COUNTS INCLUDE 234 BEDS AT THE [facility] Last Admin: 11/27/24 11:47 Dose: Not Given Primidone (Primidone 50 Mg Tablet) 50 mg PO BID COUNTS INCLUDE 234 BEDS AT THE [facility] Last Admin: 11/27/24 11:47 Dose: Not Given Sertraline HCl (Sertraline Hcl 100 Mg Tablet) 100 mg PO DAILY COUNTS INCLUDE 234 BEDS AT THE [facility] Last Admin: 11/27/24 11:47 Dose: Not Given Tamsulosin HCl (Tamsulosin Hcl 0.4 Mg Capsule) 0.4 mg PO DAILY COUNTS INCLUDE 234 BEDS AT THE [facility] Last Admin: 11/27/24 11:47 Dose: Not Given Trazodone HCl (Trazodone Hcl 50 Mg Tablet) 50 mg PO BEDTIME MRX1 PRN PRN Reason: Insomnia Last Admin: 11/07/24 22:07 Dose: 50 mg Allergies Allergies Allergy/AdvReac Type Severity Reaction Status Date / Time No Known Allergies Allergy Verified 10/14/24 18:14 [No Known Allergies*] Assessment & Plan Assessment & Plan (1) Mood disorder: Status: Acute Code(s): F39 - Unspecified mood [affective] disorder (2) Autism spectrum disorder: Status: Acute Code(s): F84.0 - Autistic disorder (3) Neurocognitive disorder: Status: Acute Code(s): R41.9 - Unspecified symptoms and signs involving cognitive functions and awareness Plan Humza was admitted for safety and stabilization. His presentation is very similar to his last admission psychiatrically about a year ago and that is why his caregivers wanted to get ahead of things before he decompensated further. Current medications were reviewed and maintained. Contacts to be made with his treaters next week. 10/17: Continue current regimen and plans 10/19: Continue current tx plan and regime. 10/21: Memantine 5 mg daily- [facility], memory sx Abilify 2 mg daily-augment to antidepressants currently being used. 10/22 continue current tx plan -pt confused 10/23 Continue trials, regime and plan. 10/24: Continue regime and plan of care. 10/25 Abilify increased up to 5 mg. 10/26 keep on same treatment 10/27/24 continues with many complaints, no clear insight into self- 10/28 continue same treatment 10/29 increase Namenda to 5 mg p.o. b.i.d. and change Depakote to Depakene. Depakote level on 13/02 as per blood work of yesterday 10/30/24 - [facility] inc olanzapine = continue depakene as he did take 5 capsules this am- prn olanzapine given - this afternoon for behaviors on unit- 10/31/24 wrote for liquid depakote option if refuses capsules, also got prn olanzapine for throwing self on floor 11/01 keep same treatment 11/02 increase Zyprexa to 20 mg p.o. q.h.s. 11/03 keep same treatment. 11/04 discontinue Depakote and start Trileptal 300 mg p.o. b.i.d.. Her healthcare proxy will bring a copy of that we are going to invoke it 11/06 increase olanzapine to 20mg po qhs and 10mg po daily. 11/07 continue tx. Plan 1. Continue with Zyprexa prescribed in the morning and the evening. He remains noncompliant of this medication. 2. Continue with Valium 2 mg p.o. t.i.d. to target anxiety. 3. Zoloft 100 mg p.o. daily to target depression. 4. Continue on close observation for safety. 11/27/2024 Patient needs encouragement take medication irritable dysphoric times aggressive positive hallucinations that he complained of earlier today did take Valium has needed IM at times Reason for continued inpatient stay Substantial Risk for: harm to others, inability to function, rapid decompensation and med/psych decompensation Time Spent With Patient Time: Total time managing care of this patient today ____ minutes.
[2024-11-27 20:00] VITALS: RESP 16
[2024-11-28 08:00] VITALS: RESP 16
--- NOTE | 2024-11-28 14:49 | HO.PSYCHPN ---
Subjective Subjective Date of Service: 11/28/24 Reason For Visit: Anxiety, mood disorder, ASD Subjective Notes: Conditional Voluntary Interim History: Patient seen psychiatric follow-up case reviewed with nursing staff. Patient has not been taking his medications on a regular basis. Does tend to take Valium. He is pending court hearing for affirmed healthcare proxy. Patient mostly nonverbal often and anxious angry look on his face. Did not require restraint in the last 24 hours. He does intermittently posture become reactive irritable at times yelling about voices was threatening in the milieu at 1 point but did not strike anyone Medication Compliance: No Attending Groups: No Mental Status Exam Mental Status Exam Patient Appearance: Appropriate Patient Orientation: Person and Situation Level of Consciousness: Awake and Restless Patient Behavior: Guarded, Suspicious and Impulsive Mood Description: Withdrawn and Angry Affect Description: Labile Patient Cognition Impaired: Yes Ability to Follow Directions: Good Speech Pattern: Clear Hallucinations: Auditory Delusions: Paranoid Ideation and Ideas of Reference Thought Process: Distracted Thought Content: positive for [place] and positive for Poverty of Content Judgement: Poor Judgement and Insight: Behavioral difficulties intermittently putting his hands around his neck superficially biting his arm at times verbally aggressive with others observed in the milieu Diagnostics Vital Signs (24Hr): Vital Signs - 24 hr 11/27/24 20:00 11/28/24 08:00 Respiratory Rate 16 16 BMI result Body Mass Index 26.7 Labs 10/28/24 09:10 11/11/24 08:31 Medications Medications Current Medications Acetaminophen (Acetaminophen 325 Mg Tablet) 650 mg PO Q6H PRN PRN Reason: Headache/Pain Mild Scale (1-3) Al Hydroxide/Mg Hydroxide (Magnesium Hydrox/Alum Hydrox 30 Ml Oral.Susp) 30 ml PO Q6H PRN PRN Reason: Heartburn/Nausea Atorvastatin Calcium (Atorvastatin Calcium 80 Mg Tablet) 80 mg PO BEDTIME [facility] Last Admin: 11/27/24 22:14 Dose: Not Given Benztropine Mesylate (Benztropine Mesylate 0.5 Mg Tablet) 1 mg PO BEDTIME [facility] Last Admin: 11/27/24 22:14 Dose: Not Given Diazepam (Diazepam 5 Mg Tablet) 5 mg PO TID [facility] Last Admin: 11/28/24 10:26 Dose: Not Given Empagliflozin (Empagliflozin 10 Mg Tablet) 10 mg PO DAILY [facility] Last Admin: 11/28/24 10:26 Dose: Not Given Furosemide (Furosemide 20 Mg Tablet) 20 mg PO DAILY [facility]; Protocol Last Admin: 11/28/24 10:26 Dose: Not Given Hydroxyzine HCl (Hydroxyzine Hcl 25 Mg Tablet) 25 mg PO Q6H PRN PRN Reason: Anxiety Last Admin: 11/18/24 17:38 Dose: 25 mg Lisinopril (Lisinopril 20 Mg Tablet) 20 mg PO DAILY [facility]; Protocol Last Admin: 11/28/24 10:27 Dose: Not Given Lorazepam (Lorazepam 1 Mg Tablet) 2 mg PO Q6H PRN PRN Reason: Agitation Last Admin: 11/26/24 09:05 Dose: 2 mg Magnesium Hydroxide (Milk Of Magnesia 30 Ml Oral.Susp) 30 ml PO DAILY PRN PRN Reason: Constipation Memantine (Memantine Hcl 5 Mg Tablet) 5 mg PO BID [facility] Last Admin: 11/28/24 10:27 Dose: Not Given Metformin HCl (Metformin Hcl Er 500 Mg Tab.Er.24h) 500 mg PO BID [facility] Last Admin: 11/28/24 10:27 Dose: Not Given Mirtazapine (Mirtazapine 30 Mg Tablet) 30 mg PO BEDTIME [facility] Last Admin: 11/27/24 22:15 Dose: Not Given Nicotine (Nicotine 21 Mg Patch.Td24) 21 mg TRANSDERMA DAILY PRN PRN Reason: nicotine cravings Nicotine Polacrilex (Nicotine Polacrilex 2 Mg Gum) 4 mg BUCCAL Q2H PRN PRN Reason: Nicotine Cravings Olanzapine (Olanzapine 10 Mg Tablet) 20 mg PO BEDTIME [facility] Last Admin: 11/27/24 22:15 Dose: Not Given Olanzapine (Olanzapine Odt 10 Mg Tab.Rapdis) 10 mg TRANSLINGU DAILY [facility] Last Admin: 11/28/24 10:27 Dose: Not Given Oxcarbazepine (Oxcarbazepine 300 Mg Tablet) 600 mg PO BID [facility] Last Admin: 11/28/24 10:27 Dose: Not Given Primidone (Primidone 50 Mg Tablet) 50 mg PO BID [facility] Last Admin: 11/28/24 10:27 Dose: Not Given Sertraline HCl (Sertraline Hcl 100 Mg Tablet) 100 mg PO DAILY [facility] Last Admin: 11/28/24 10:27 Dose: Not Given Tamsulosin HCl (Tamsulosin Hcl 0.4 Mg Capsule) 0.4 mg PO DAILY [facility] Last Admin: 11/28/24 10:27 Dose: Not Given Trazodone HCl (Trazodone Hcl 50 Mg Tablet) 50 mg PO BEDTIME MRX1 PRN PRN Reason: Insomnia Last Admin: 11/07/24 22:07 Dose: 50 mg Allergies Allergies Allergy/AdvReac Type Severity Reaction Status Date / Time No Known Allergies Allergy Verified 10/14/24 18:14 [No Known Allergies*] Assessment & Plan Assessment & Plan (1) Mood disorder: Status: Acute Code(s): F39 - Unspecified mood [affective] disorder (2) Autism spectrum disorder: Status: Acute Code(s): F84.0 - Autistic disorder (3) Neurocognitive disorder: Status: Acute Code(s): R41.9 - Unspecified symptoms and signs involving cognitive functions and awareness Plan Humza was admitted for safety and stabilization. His presentation is very similar to his last admission psychiatrically about a year ago and that is why his caregivers wanted to get ahead of things before he decompensated further. Current medications were reviewed and maintained. Contacts to be made with his treaters next week. 10/17: Continue current regimen and plans 10/19: Continue current tx plan and regime. 10/21: Memantine 5 mg daily- [facility], memory sx Abilify 2 mg daily-augment to antidepressants currently being used. 10/22 continue current tx plan -pt confused 10/23 Continue trials, regime and plan. 10/24: Continue regime and plan of care. 10/25 Abilify increased up to 5 mg. 10/26 keep on same treatment 10/27/24 continues with many complaints, no clear insight into self- 10/28 continue same treatment 10/29 increase Namenda to 5 mg p.o. b.i.d. and change Depakote to Depakene. Depakote level on 13/02 as per blood work of yesterday 10/30/24 - dc [facility]ilify inc olanzapine = continue depakene as he did take 5 capsules this am- prn olanzapine given - this afternoon for behaviors on unit- 10/31/24 wrote for liquid depakote option if refuses capsules, also got prn olanzapine for throwing self on floor 11/01 keep same treatment 11/02 increase Zyprexa to 20 mg p.o. q.h.s. 11/03 keep same treatment. 11/04 discontinue Depakote and start Trileptal 300 mg p.o. b.i.d.. Her healthcare proxy will bring a copy of that we are going to invoke it 11/06 increase olanzapine to 20mg po qhs and 10mg po daily. 11/07 continue tx. Plan 1. Continue with Zyprexa prescribed in the morning and the evening. He remains noncompliant of this medication. 2. Continue with Valium 2 mg p.o. t.i.d. to target anxiety. 3. Zoloft 100 mg p.o. daily to target depression. 4. Continue on close observation for safety. 11/27/2024 Patient needs encouragement take medication irritable dysphoric times aggressive positive hallucinations that he complained of earlier today did take Valium has needed IM at times 11/28 Patient very intermittent about taking medications at times agrees and and refuses becomes irritable agitated difficulty trusting labile. Reportedly awaiting affirmed healthcare proxy. Would clearly benefit from mood stabilizer antipsychotic Reason for continued inpatient stay Substantial Risk for: harm to self and harm to others Time Spent With Patient Time: Total time managing care of this patient today ____ minutes.
[2024-11-28] MEDS: diazePAM 5 MG TABLET PO (16:01)
[2024-11-28] MEDS: OLANZapine ODT 10 MG TAB.RAPDIS TRANSLINGU (16:01)
[2024-11-28 20:00] VITALS: RESP 16
[2024-11-29] MEDS: diazePAM 5 MG TABLET PO ×3 (10:02→20:50)
[2024-11-29] MEDS: OLANZapine ODT 10 MG TAB.RAPDIS TRANSLINGU (10:02)
--- NOTE | 2024-11-29 13:44 | HO.PSYCHPN ---
Subjective Subjective Date of Service: 11/29/24 Reason For Visit: Anxiety, mood disorder, ASD Subjective Notes: Conditional Voluntary Healthcare Proxy: Yes Interim History: Nursing staff reported the patient had been agitated, he has refused his medications and he reports auditory hallucinations. He was verbally redirected to go to his room since he was being disruptive. We are waiting for the court order of the information of the healthcare proxy. Mental Status Exam Mental Status Exam Patient Appearance: Appropriate Patient Orientation: Person and Situation Level of Consciousness: Awake Patient Behavior: Guarded Mood Description: Withdrawn Affect Description: Labile Patient Cognition Impaired: Yes Ability to Follow Directions: Good Speech Pattern: Clear Hallucinations: Auditory Delusions: Paranoid Ideation and Ideas of Reference Thought Process: Distracted and Slowed Thinking Thought Content: positive for [place] and positive for Poverty of Content Judgement: Poor Diagnostics Vital Signs (24Hr): Vital Signs - 24 hr 11/28/24 20:00 Respiratory Rate 16 BMI result Body Mass Index 26.7 Labs 10/28/24 09:10 11/11/24 08:31 Medications Medications Current Medications Acetaminophen (Acetaminophen 325 Mg Tablet) 650 mg PO Q6H PRN PRN Reason: Headache/Pain Mild Scale (1-3) Al Hydroxide/Mg Hydroxide (Magnesium Hydrox/Alum Hydrox 30 Ml Oral.Susp) 30 ml PO Q6H PRN PRN Reason: Heartburn/Nausea Atorvastatin Calcium (Atorvastatin Calcium 80 Mg Tablet) 80 mg PO BEDTIME [facility] Last Admin: 11/28/24 21:39 Dose: Not Given Benztropine Mesylate (Benztropine Mesylate 0.5 Mg Tablet) 1 mg PO BEDTIME [facility] Last Admin: 11/28/24 21:39 Dose: Not Given Diazepam (Diazepam 5 Mg Tablet) 5 mg PO TID [facility] Last Admin: 11/29/24 10:02 Dose: 5 mg Empagliflozin (Empagliflozin 10 Mg Tablet) 10 mg PO DAILY [facility] Last Admin: 11/29/24 10:03 Dose: Not Given Furosemide (Furosemide 20 Mg Tablet) 20 mg PO DAILY [facility]; Protocol Last Admin: 11/29/24 10:03 Dose: Not Given Hydroxyzine HCl (Hydroxyzine Hcl 25 Mg Tablet) 25 mg PO Q6H PRN PRN Reason: Anxiety Last Admin: 11/18/24 17:38 Dose: 25 mg Lisinopril (Lisinopril 20 Mg Tablet) 20 mg PO DAILY [facility]; Protocol Last Admin: 11/29/24 10:03 Dose: Not Given Lorazepam (Lorazepam 1 Mg Tablet) 2 mg PO Q6H PRN PRN Reason: Agitation Last Admin: 11/26/24 09:05 Dose: 2 mg Magnesium Hydroxide (Milk Of Magnesia 30 Ml Oral.Susp) 30 ml PO DAILY PRN PRN Reason: Constipation Memantine (Memantine Hcl 5 Mg Tablet) 5 mg PO BID [facility] Last Admin: 11/29/24 10:04 Dose: Not Given Metformin HCl (Metformin Hcl Er 500 Mg Tab.Er.24h) 500 mg PO BID [facility] Last Admin: 11/29/24 10:04 Dose: Not Given Mirtazapine (Mirtazapine 30 Mg Tablet) 30 mg PO BEDTIME [facility] Last Admin: 11/28/24 21:39 Dose: Not Given Nicotine (Nicotine 21 Mg Patch.Td24) 21 mg TRANSDERMA DAILY PRN PRN Reason: nicotine cravings Nicotine Polacrilex (Nicotine Polacrilex 2 Mg Gum) 4 mg BUCCAL Q2H PRN PRN Reason: Nicotine Cravings Olanzapine (Olanzapine 10 Mg Tablet) 20 mg PO BEDTIME [facility] Last Admin: 11/28/24 21:39 Dose: Not Given Olanzapine (Olanzapine Odt 10 Mg Tab.Rapdis) 10 mg TRANSLINGU DAILY [facility] Last Admin: 11/29/24 10:02 Dose: 10 mg Oxcarbazepine (Oxcarbazepine 300 Mg Tablet) 600 mg PO BID [facility] Last Admin: 11/29/24 10:04 Dose: Not Given Primidone (Primidone 50 Mg Tablet) 50 mg PO BID [facility] Last Admin: 11/29/24 10:04 Dose: Not Given Sertraline HCl (Sertraline Hcl 100 Mg Tablet) 100 mg PO DAILY [facility] Last Admin: 11/29/24 10:04 Dose: Not Given Tamsulosin HCl (Tamsulosin Hcl 0.4 Mg Capsule) 0.4 mg PO DAILY [facility] Last Admin: 11/29/24 10:04 Dose: Not Given Trazodone HCl (Trazodone Hcl 50 Mg Tablet) 50 mg PO BEDTIME MRX1 PRN PRN Reason: Insomnia Last Admin: 11/07/24 22:07 Dose: 50 mg Allergies Allergies Allergy/AdvReac Type Severity Reaction Status Date / Time No Known Allergies Allergy Verified 10/14/24 18:14 [No Known Allergies*] Assessment & Plan Assessment & Plan (1) Mood disorder: Status: Acute Code(s): F39 - Unspecified mood [affective] disorder (2) Autism spectrum disorder: Status: Acute Code(s): F84.0 - Autistic disorder (3) Neurocognitive disorder: Status: Acute Code(s): R41.9 - Unspecified symptoms and signs involving cognitive functions and awareness Plan Humza was admitted for safety and stabilization. His presentation is very similar to his last admission psychiatrically about a year ago and that is why his caregivers wanted to get ahead of things before he decompensated further. Current medications were reviewed and maintained. Contacts to be made with his treaters next week. 10/17: Continue current regimen and plans 10/19: Continue current tx plan and regime. 10/21: Memantine 5 mg daily- [facility], memory sx Abilify 2 mg daily-augment to antidepressants currently being used. 10/22 continue current tx plan -pt confused 10/23 Continue trials, regime and plan. 10/24: Continue regime and plan of care. 10/25 Abilify increased up to 5 mg. 10/26 keep on same treatment 10/27/24 continues with many complaints, no clear insight into self- 10/28 continue same treatment 10/29 increase Namenda to 5 mg p.o. b.i.d. and change Depakote to Depakene. Depakote level on 13/02 as per blood work of yesterday 10/30/24 - [facility] [employer] olanzapine = continue depakene as he did take 5 capsules this am- prn olanzapine given - this afternoon for behaviors on unit- 10/31/24 wrote for liquid depakote option if refuses capsules, also got prn olanzapine for throwing self on floor 11/01 keep same treatment 11/02 increase Zyprexa to 20 mg p.o. q.h.s. 11/03 keep same treatment. 11/04 discontinue Depakote and start Trileptal 300 mg p.o. b.i.d.. Her healthcare proxy will bring a copy of that we are going to invoke it 11/06 increase olanzapine to 20mg po qhs and 10mg po daily. 11/07 continue tx. Plan 1. Continue with Zyprexa prescribed in the morning and the evening. He remains noncompliant of this medication. 2. Continue with Valium 2 mg p.o. t.i.d. to target anxiety. 3. Zoloft 100 mg p.o. daily to target depression. 4. Continue on close observation for safety. 11/27/2024 Patient needs encouragement take medication irritable dysphoric times aggressive positive hallucinations that he complained of earlier today did take Valium has needed IM at times 11/28 Patient very intermittent about taking medications at times agrees and and refuses becomes irritable agitated difficulty trusting labile. Reportedly awaiting affirmed healthcare proxy. Would clearly benefit from mood stabilizer antipsychotic Reason for continued inpatient stay Substantial Risk for: inability to function, rapid decompensation and med/psych decompensation Time Spent With Patient Time: Total time managing care of this patient today _20___ minutes.
--- NOTE | 2024-11-30 07:31 | HE.PHANOTE ---
Re: Metformin Reached to Dr. Steiner making him aware that pt has been refusing his renal labs. Asked if there someone that could talk to him to cooperate.
--- NOTE | 2024-11-30 12:56 | PC.NURSE ---
This repairer typewriter texted Dr. Steiner on [employer]. She let him know that this patient has been sleeping all shift so far and that he had refused VS this morning. He stated to give meds when pt wakes up.
[2024-11-30] MEDS: diazePAM 5 MG TABLET PO (13:31)
[2024-11-30] MEDS: LORazepam 2 MG/ML VIAL IM (15:03)
[2024-11-30] MEDS: chlorproMAZINE HCl 25 MG/ML AMPUL 100 MG IM (15:03)
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
[2024-11-30 20:00] VITALS: BP 112/60; PULSE 98; RESP 16; TEMP 36.8; O2SAT 96
[2024-12-01 08:00] VITALS: RESP 18
[2024-12-01] MEDS: LORazepam 2 MG/ML VIAL IM (09:54)
[2024-12-01] MEDS: OLANZapine 10 MG VIAL 20 MG IM ×2 (09:54→22:04)
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
[2024-12-01] MEDS: diazePAM 10 MG/2 ML CARTRIDGE 5 MG IM ×2 (16:30→22:05)
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
[2024-12-02 07:00] VITALS: BMI 25.9
[2024-12-02 08:00] VITALS: RESP 18
[2024-12-02] MEDS: diazePAM 10 MG/2 ML CARTRIDGE 5 MG IM ×3 (08:51→21:31)
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
--- NOTE | 2024-12-02 13:05 | HO.PSYCHPN ---
Subjective Subjective Date of Service: 12/02/24 Reason For Visit: Anxiety, mood disorder, ASD Subjective Notes: Conditional Voluntary Healthcare Proxy: Yes Interim History: The nursing staff reported the patient refused his Valium yesterday he received an IM as per instructions of the healthcare proxy. He also received IM Haldol. On interview the patient remains internally preoccupied, disheveled. I explained him that he can not refused his p.o. medications since now we have the court order that the healthcare proxy wants to be enforced. Mental Status Exam Mental Status Exam Patient Appearance: Appropriate Patient Orientation: Person and Situation Level of Consciousness: Awake and Appropriate Patient Behavior: Guarded and Passive Mood Description: Withdrawn Affect Description: Blunted Patient Cognition Impaired: Yes Ability to Follow Directions: Good Speech Pattern: Clear Hallucinations: Auditory Delusions: Paranoid Ideation and Ideas of Reference Thought Process: Distracted and Slowed Thinking Thought Content: positive for [place] and positive for Poverty of Content Judgement: Fair Diagnostics Vital Signs (24Hr): Vital Signs - 24 hr 12/02/24 08:00 Respiratory Rate 18 BMI result Body Mass Index 26.7 Labs 10/28/24 09:10 11/11/24 08:31 Medications Medications Current Medications Acetaminophen (Acetaminophen 325 Mg Tablet) 650 mg PO Q6H PRN PRN Reason: Headache/Pain Mild Scale (1-3) Al Hydroxide/Mg Hydroxide (Magnesium Hydrox/Alum Hydrox 30 Ml Oral.Susp) 30 ml PO Q6H PRN PRN Reason: Heartburn/Nausea Atorvastatin Calcium (Atorvastatin Calcium 80 Mg Tablet) 80 mg PO BEDTIME [facility]AE Last Admin: 12/01/24 21:40 Dose: Not Given Benztropine Mesylate (Benztropine Mesylate 0.5 Mg Tablet) 1 mg PO BEDTIME [facility]AE Last Admin: 12/01/24 21:40 Dose: Not Given Diazepam (Diazepam 5 Mg Tablet) 5 mg PO TID DESIRAE Last Admin: 12/02/24 09:11 Dose: Not Given Diazepam (Diazepam 10 Mg/2 Ml Cartridge) 5 mg IM TID PRN PRN Reason: PO refusal Last Admin: 12/02/24 08:51 Dose: 5 mg Empagliflozin (Empagliflozin 10 Mg Tablet) 10 mg PO DAILY [facility] Last Admin: 12/02/24 09:49 Dose: Not Given Furosemide (Furosemide 20 Mg Tablet) 20 mg PO DAILY [facility]; Protocol Last Admin: 12/02/24 09:49 Dose: Not Given Hydroxyzine HCl (Hydroxyzine Hcl 25 Mg Tablet) 25 mg PO Q6H PRN PRN Reason: Anxiety Last Admin: 11/18/24 17:38 Dose: 25 mg Lisinopril (Lisinopril 20 Mg Tablet) 20 mg PO DAILY [facility]; Protocol Last Admin: 12/02/24 09:49 Dose: Not Given Lorazepam (Lorazepam 1 Mg Tablet) 2 mg PO Q6H PRN PRN Reason: Agitation Last Admin: 11/26/24 09:05 Dose: 2 mg Magnesium Hydroxide (Milk Of Magnesia 30 Ml Oral.Susp) 30 ml PO DAILY PRN PRN Reason: Constipation Memantine (Memantine Hcl 5 Mg Tablet) 5 mg PO BID [facility] Last Admin: 12/02/24 09:49 Dose: Not Given Metformin HCl (Metformin Hcl Er 500 Mg Tab.Er.24h) 500 mg PO BID [facility] Last Admin: 12/02/24 09:49 Dose: Not Given Mirtazapine (Mirtazapine 30 Mg Tablet) 30 mg PO BEDTIME [facility] Last Admin: 12/01/24 21:41 Dose: Not Given Nicotine (Nicotine 21 Mg Patch.Td24) 21 mg TRANSDERMA DAILY PRN PRN Reason: nicotine cravings Nicotine Polacrilex (Nicotine Polacrilex 2 Mg Gum) 4 mg BUCCAL Q2H PRN PRN Reason: Nicotine Cravings Olanzapine (Olanzapine 10 Mg Tablet) 20 mg PO BEDTIME [facility] Last Admin: 12/01/24 22:07 Dose: Not Given Olanzapine (Olanzapine Odt 10 Mg Tab.Rapdis) 10 mg TRANSLINGU DAILY [facility] Last Admin: 12/02/24 09:49 Dose: Not Given Olanzapine (Olanzapine 10 Mg Vial) 20 mg IM BEDTIME PRN PRN Reason: PO refusal Last Admin: 12/01/24 22:04 Dose: 20 mg Oxcarbazepine (Oxcarbazepine 300 Mg Tablet) 600 mg PO BID [facility] Last Admin: 12/02/24 09:49 Dose: Not Given Primidone (Primidone 50 Mg Tablet) 50 mg PO BID [facility] Last Admin: 12/02/24 09:50 Dose: Not Given Sertraline HCl (Sertraline Hcl 100 Mg Tablet) 100 mg PO DAILY [facility] Last Admin: 12/02/24 09:50 Dose: Not Given Tamsulosin HCl (Tamsulosin Hcl 0.4 Mg Capsule) 0.4 mg PO DAILY [facility] Last Admin: 12/02/24 09:51 Dose: Not Given Trazodone HCl (Trazodone Hcl 50 Mg Tablet) 50 mg PO BEDTIME MRX1 PRN PRN Reason: Insomnia Last Admin: 11/07/24 22:07 Dose: 50 mg Allergies Allergies Allergy/AdvReac Type Severity Reaction Status Date / Time No Known Allergies Allergy Verified 10/14/24 18:14 [No Known Allergies*] Assessment & Plan Assessment & Plan (1) Mood disorder: Status: Acute Code(s): F39 - Unspecified mood [affective] disorder (2) Autism spectrum disorder: Status: Acute Code(s): F84.0 - Autistic disorder (3) Neurocognitive disorder: Status: Acute Code(s): R41.9 - Unspecified symptoms and signs involving cognitive functions and awareness Plan Humza was admitted for safety and stabilization. His presentation is very similar to his last admission psychiatrically about a year ago and that is why his caregivers wanted to get ahead of things before he decompensated further. Current medications were reviewed and maintained. Contacts to be made with his treaters next week. 10/17: Continue current regimen and plans 10/19: Continue current tx plan and regime. 10/21: Memantine 5 mg daily- [facility], memory sx Abilify 2 mg daily-augment to antidepressants currently being used. 10/22 continue current tx plan -pt confused 10/23 Continue trials, regime and plan. 10/24: Continue regime and plan of care. 10/25 Abilify increased up to 5 mg. 10/26 keep on same treatment 10/27/24 continues with many complaints, no clear insight into self- 10/28 continue same treatment 10/29 increase Namenda to 5 mg p.o. b.i.d. and change Depakote to Depakene. Depakote level on 13/02 as per blood work of yesterday 10/30/24 - [facility] olanzapine = continue depakene as he did take 5 capsules this am- prn olanzapine given - this afternoon for behaviors on unit- 10/31/24 wrote for liquid depakote option if refuses capsules, also got prn olanzapine for throwing self on floor 11/01 keep same treatment 11/02 increase Zyprexa to 20 mg p.o. q.h.s. 11/03 keep same treatment. 11/04 discontinue Depakote and start Trileptal 300 mg p.o. b.i.d.. Her healthcare proxy will bring a copy of that we are going to invoke it 11/06 increase olanzapine to 20mg po qhs and 10mg po daily. 11/07 continue tx. Plan 1. Continue with Zyprexa prescribed in the morning and the evening. He remains noncompliant of this medication. 2. Continue with Valium 2 mg p.o. t.i.d. to target anxiety. 3. Zoloft 100 mg p.o. daily to target depression. 4. Continue on close observation for safety. 5. Court order for the healthcare proxy was given on November 30, her sister called and gave us permission to use Zyprexa IM as a backup if he refuses p.o.. Also we are adding Valium backup IM if he refuses p.o. Reason for continued inpatient stay Substantial Risk for: inability to function, rapid decompensation and med/psych decompensation Time Spent With Patient Time: Total time managing care of this patient today __20__ minutes.
[2024-12-02] MEDS: OLANZapine 10 MG VIAL 20 MG IM (21:31)
[2024-12-03 08:16] VITALS: PULSE 88; RESP 18; TEMP 36.8; O2SAT 97
--- NOTE | 2024-12-03 09:13 | P.PNPSI_ITS ---
Subjective Subjective Date of Service: 12/03/24 Reason For Visit: Anxiety, mood disorder, ASD Subjective Notes: Conditional Voluntary Healthcare Proxy: Yes Interim History: Pt slept all night. He refuses medication at times, given affirmed HCP, IM given. He reports doing well, asking this ghost writer about a towel he has and if he can get another one. He quickly change to trying to choke himself, but easily redirected when this ghost writer asked him to hold towel with both hands and disengaged self injurious behavior. Review of Systems Review of Systems I am OK . Yes all other systems are reviewed and are negative and Unobtainable due to mental status Mental Status Exam Mental Status Exam Patient Appearance: Appropriate Patient Orientation: Person and Situation Level of Consciousness: Awake and Appropriate Patient Behavior: Guarded and Passive Mood Description: Withdrawn Affect Description: Blunted Patient Cognition Impaired: Yes Ability to Follow Directions: Good Speech Pattern: Clear Memory Description: Remote Impaired Diagnostics Vital Signs (24Hr): Vital Signs - 24 hr 12/03/24 08:16 Temperature 98.2 F Pulse Rate 88 Respiratory Rate 18 Pulse Oximetry 97 BMI result Body Mass Index 25.9 Labs 10/28/24 09:10 11/11/24 08:31 Medications Medications Current Medications Acetaminophen (Acetaminophen 325 Mg Tablet) 650 mg PO Q6H PRN PRN Reason: Headache/Pain Mild Scale (1-3) Al Hydroxide/Mg Hydroxide (Magnesium Hydrox/Alum Hydrox 30 Ml Oral.Susp) 30 ml PO Q6H PRN PRN Reason: Heartburn/Nausea Atorvastatin Calcium (Atorvastatin Calcium 80 Mg Tablet) 80 mg PO BEDTIME DESIRAE Last Admin: 12/02/24 21:18 Dose: Not Given Benztropine Mesylate (Benztropine Mesylate 0.5 Mg Tablet) 1 mg PO BEDTIME DESIRAE Last Admin: 12/02/24 21:19 Dose: Not Given Diazepam (Diazepam 5 Mg Tablet) 5 mg PO TID DESIRAE Last Admin: 12/02/24 21:19 Dose: Not Given Diazepam (Diazepam 10 Mg/2 Ml Cartridge) 5 mg IM TID PRN PRN Reason: PO refusal Last Admin: 12/02/24 21:31 Dose: 5 mg Empagliflozin (Empagliflozin 10 Mg Tablet) 10 mg PO DAILY [facility] Last Admin: 12/02/24 09:49 Dose: Not Given Furosemide (Furosemide 20 Mg Tablet) 20 mg PO DAILY [facility]; Protocol Last Admin: 12/02/24 09:49 Dose: Not Given Hydroxyzine HCl (Hydroxyzine Hcl 25 Mg Tablet) 25 mg PO Q6H PRN PRN Reason: Anxiety Last Admin: 11/18/24 17:38 Dose: 25 mg Lisinopril (Lisinopril 20 Mg Tablet) 20 mg PO DAILY [facility]; Protocol Last Admin: 12/02/24 09:49 Dose: Not Given Lorazepam (Lorazepam 1 Mg Tablet) 2 mg PO Q6H PRN PRN Reason: Agitation Last Admin: 11/26/24 09:05 Dose: 2 mg Magnesium Hydroxide (Milk Of Magnesia 30 Ml Oral.Susp) 30 ml PO DAILY PRN PRN Reason: Constipation Memantine (Memantine Hcl 5 Mg Tablet) 5 mg PO BID [facility] Last Admin: 12/02/24 21:19 Dose: Not Given Metformin HCl (Metformin Hcl Er 500 Mg Tab.Er.24h) 500 mg PO BID [facility] Last Admin: 12/02/24 21:19 Dose: Not Given Mirtazapine (Mirtazapine 30 Mg Tablet) 30 mg PO BEDTIME [facility] Last Admin: 12/02/24 21:19 Dose: Not Given Nicotine (Nicotine 21 Mg Patch.Td24) 21 mg TRANSDERMA DAILY PRN PRN Reason: nicotine cravings Nicotine Polacrilex (Nicotine Polacrilex 2 Mg Gum) 4 mg BUCCAL Q2H PRN PRN Reason: Nicotine Cravings Olanzapine (Olanzapine 10 Mg Tablet) 20 mg PO BEDTIME [facility] Last Admin: 12/02/24 21:19 Dose: Not Given Olanzapine (Olanzapine Odt 10 Mg Tab.Rapdis) 10 mg TRANSLINGU DAILY [facility] Last Admin: 12/02/24 09:49 Dose: Not Given Olanzapine (Olanzapine 10 Mg Vial) 20 mg IM BEDTIME PRN PRN Reason: PO refusal Last Admin: 12/02/24 21:31 Dose: 20 mg Oxcarbazepine (Oxcarbazepine 300 Mg Tablet) 600 mg PO BID [facility] Last Admin: 12/02/24 21:19 Dose: Not Given Primidone (Primidone 50 Mg Tablet) 50 mg PO BID [facility] Last Admin: 12/02/24 21:19 Dose: Not Given Sertraline HCl (Sertraline Hcl 100 Mg Tablet) 100 mg PO DAILY [facility] Last Admin: 12/02/24 09:50 Dose: Not Given Tamsulosin HCl (Tamsulosin Hcl 0.4 Mg Capsule) 0.4 mg PO DAILY [facility] Last Admin: 12/02/24 09:51 Dose: Not Given Trazodone HCl (Trazodone Hcl 50 Mg Tablet) 50 mg PO BEDTIME MRX1 PRN PRN Reason: Insomnia Last Admin: 11/07/24 22:07 Dose: 50 mg Allergies Allergies Allergy/AdvReac Type Severity Reaction Status Date / Time No Known Allergies Allergy Verified 10/14/24 18:14 [No Known Allergies*] Assessment & Plan Assessment & Plan (1) Mood disorder: Status: Acute Code(s): F39 - Unspecified mood [affective] disorder (2) Autism spectrum disorder: Status: Acute Code(s): F84.0 - Autistic disorder (3) Neurocognitive disorder: Status: Acute Code(s): R41.9 - Unspecified symptoms and signs involving cognitive functions and awareness Plan Humza was admitted for safety and stabilization. His presentation is very similar to his last admission psychiatrically about a year ago and that is why his caregivers wanted to get ahead of things before he decompensated further. Current medications were reviewed and maintained. Contacts to be made with his treaters next week. 10/17: Continue current regimen and plans 10/19: Continue current tx plan and regime. 10/21: Memantine 5 mg daily- [facility], memory sx Abilify 2 mg daily-augment to antidepressants currently being used. 10/22 continue current tx plan -pt confused 10/23 Continue trials, regime and plan. 10/24: Continue regime and plan of care. 10/25 Abilify increased up to 5 mg. 10/26 keep on same treatment 10/27/24 continues with many complaints, no clear insight into self- 10/28 continue same treatment 10/29 increase Namenda to 5 mg p.o. b.i.d. and change Depakote to Depakene. Depakote level on 13/02 as per blood work of yesterday 10/30/24 - dc abilify inc olanzapine = continue depakene as he did take 5 capsules this am- prn olanzapine given - this afternoon for behaviors on unit- 10/31/24 wrote for liquid depakote option if refuses capsules, also got prn olanzapine for throwing self on floor 1/6 keep same treatment 11/02 increase Zyprexa to 20 mg p.o. q.h.s. 11/03 keep same treatment. 11/04 discontinue Depakote and start Trileptal 300 mg p.o. b.i.d.. Her healthcare proxy will bring a copy of that we are going to invoke it 11/06 increase olanzapine to 20mg po qhs and 10mg po daily. 11/07 continue tx. 12/03 continue tx. Reason for continued inpatient stay Substantial Risk for: inability to function Time Spent With Patient Time: Total time managing care of this patient today ____ minutes.
[2024-12-03] MEDS: diazePAM 10 MG/2 ML CARTRIDGE 5 MG IM ×2 (10:09→21:27)
[2024-12-03] MEDS: OLANZapine ODT 10 MG TAB.RAPDIS TRANSLINGU (10:28)
[2024-12-03] MEDS: diazePAM 5 MG TABLET PO (14:54)
[2024-12-03] MEDS: OLANZapine 10 MG VIAL IM (21:27)
[2024-12-04 08:00] VITALS: RESP 18
--- NOTE | 2024-12-04 08:10 | HO.PSYCHPN ---
Subjective Subjective Date of Service: 12/04/24 Reason For Visit: Anxiety, mood disorder, ASD Interim History: Met with patient. Discussed with Nursing. Has been less agitated and distress now receiving medications with affirmed healthcare proxy approval. Patient in his room. Minimal engagement. Did state that I am good , otherwise minimal engagement. Medication Compliance: Yes ( As per affirmed healthcare proxy) Side effects from medications: No Attending Groups: No Review of Systems Acute medical concerns: No Review of Systems Review of Systems Yes Unobtainable due to mental status Mental Status Exam Mental Status Exam Narrative: Patient seen in room. Weighted blanket. Stated he was okay. Otherwise would not engage in conversation would not discuss medications, behavior etc... UNable to evaluate SI, HI, psychosis. Diagnostics Vital Signs (24Hr): Vital Signs - 24 hr 12/03/24 08:16 Temperature 98.2 F Pulse Rate 88 Respiratory Rate 18 Pulse Oximetry 97 BMI result Body Mass Index 25.9 Labs 10/28/24 09:10 11/11/24 08:31 Medications Medications Current Medications Acetaminophen (Acetaminophen 325 Mg Tablet) 650 mg PO Q6H PRN PRN Reason: Headache/Pain Mild Scale (1-3) Al Hydroxide/Mg Hydroxide (Magnesium Hydrox/Alum Hydrox 30 Ml Oral.Susp) 30 ml PO Q6H PRN PRN Reason: Heartburn/Nausea Atorvastatin Calcium (Atorvastatin Calcium 80 Mg Tablet) 80 mg PO BEDTIME DESIRAE Last Admin: 12/03/24 22:16 Dose: Not Given Benztropine Mesylate (Benztropine Mesylate 0.5 Mg Tablet) 1 mg PO BEDTIME DESIRAE Last Admin: 12/03/24 22:16 Dose: Not Given Diazepam (Diazepam 5 Mg Tablet) 5 mg PO TID [facility]IR[facility] Last Admin: 12/03/24 22:16 Dose: Not Given Diazepam (Diazepam 10 Mg/2 Ml Cartridge) 5 mg IM TID PRN PRN Reason: PO refusal Last Admin: 12/03/24 21:27 Dose: 5 mg Empagliflozin (Empagliflozin 10 Mg Tablet) 10 mg PO DAILY [facility] Last Admin: 12/03/24 10:23 Dose: Not Given Furosemide (Furosemide 20 Mg Tablet) 20 mg PO DAILY [facility]; Protocol Last Admin: 12/03/24 10:23 Dose: Not Given Hydroxyzine HCl (Hydroxyzine Hcl 25 Mg Tablet) 25 mg PO Q6H PRN PRN Reason: Anxiety Last Admin: 11/18/24 17:38 Dose: 25 mg Lisinopril (Lisinopril 20 Mg Tablet) 20 mg PO DAILY [facility]; Protocol Last Admin: 12/03/24 10:24 Dose: Not Given Lorazepam (Lorazepam 1 Mg Tablet) 2 mg PO Q6H PRN PRN Reason: Agitation Last Admin: 11/26/24 09:05 Dose: 2 mg Magnesium Hydroxide (Milk Of Magnesia 30 Ml Oral.Susp) 30 ml PO DAILY PRN PRN Reason: Constipation Memantine (Memantine Hcl 5 Mg Tablet) 5 mg PO BID [facility] Last Admin: 12/03/24 22:16 Dose: Not Given Metformin HCl (Metformin Hcl Er 500 Mg Tab.Er.24h) 500 mg PO BID [facility] Last Admin: 12/03/24 22:16 Dose: Not Given Mirtazapine (Mirtazapine 30 Mg Tablet) 30 mg PO BEDTIME [facility] Last Admin: 12/03/24 22:17 Dose: Not Given Nicotine (Nicotine 21 Mg Patch.Td24) 21 mg TRANSDERMA DAILY PRN PRN Reason: nicotine cravings Nicotine Polacrilex (Nicotine Polacrilex 2 Mg Gum) 4 mg BUCCAL Q2H PRN PRN Reason: Nicotine Cravings Olanzapine (Olanzapine 10 Mg Tablet) 20 mg PO BEDTIME [facility] Last Admin: 12/03/24 22:17 Dose: Not Given Olanzapine (Olanzapine Odt 10 Mg Tab.Rapdis) 10 mg TRANSLINGU DAILY [facility] Last Admin: 12/03/24 10:28 Dose: 10 mg Olanzapine (Olanzapine 10 Mg Vial) 10 mg IM BID PRN PRN Reason: PO refusal Last Admin: 12/03/24 21:27 Dose: 10 mg Oxcarbazepine (Oxcarbazepine 300 Mg Tablet) 600 mg PO BID [facility] Last Admin: 12/03/24 22:17 Dose: Not Given Primidone (Primidone 50 Mg Tablet) 50 mg PO BID [facility] Last Admin: 12/03/24 22:17 Dose: Not Given Sertraline HCl (Sertraline Hcl 100 Mg Tablet) 100 mg PO DAILY [facility] Last Admin: 12/03/24 09:46 Dose: Not Given Tamsulosin HCl (Tamsulosin Hcl 0.4 Mg Capsule) 0.4 mg PO DAILY [facility] Last Admin: 12/03/24 10:24 Dose: Not Given Trazodone HCl (Trazodone Hcl 50 Mg Tablet) 50 mg PO BEDTIME MRX1 PRN PRN Reason: Insomnia Last Admin: 11/07/24 22:07 Dose: 50 mg Allergies Allergies Allergy/AdvReac Type Severity Reaction Status Date / Time No Known Allergies Allergy Verified 10/14/24 18:14 [No Known Allergies*] Assessment & Plan Assessment & Plan (1) Mood disorder: Status: Acute Code(s): F39 - Unspecified mood [affective] disorder (2) Autism spectrum disorder: Status: Acute Code(s): F84.0 - Autistic disorder (3) Neurocognitive disorder: Status: Acute Code(s): R41.9 - Unspecified symptoms and signs involving cognitive functions and awareness Plan Humza was admitted for safety and stabilization. His presentation is very similar to his last admission psychiatrically about a year ago and that is why his caregivers wanted to get ahead of things before he decompensated further. Current medications were reviewed and maintained. Contacts to be made with his treaters next week. 10/17: Continue current regimen and plans 10/19: Continue current tx plan and regime. 10/21: Memantine 5 mg daily- [facility], memory sx Abilify 2 mg daily-augment to antidepressants currently being used. 10/22 continue current tx plan -pt confused 10/23 Continue trials, regime and plan. 10/24: Continue regime and plan of care. 10/25 Abilify increased up to 5 mg. 10/26 keep on same treatment 10/27/24 continues with many complaints, no clear insight into self- 10/28 continue same treatment 10/29 increase Namenda to 5 mg p.o. b.i.d. and change Depakote to Depakene. Depakote level on 13/02 as per blood work of yesterday 10/30/24 - dc abilify inc olanzapine = continue depakene as he did take 5 capsules this am- prn olanzapine given - this afternoon for behaviors on unit- 10/31/24 wrote for liquid depakote option if refuses capsules, also got prn olanzapine for throwing self on floor 11/01 keep same treatment 11/02 increase Zyprexa to 20 mg p.o. q.h.s. 11/03 keep same treatment. 11/04 discontinue Depakote and start Trileptal 300 mg p.o. b.i.d.. Her healthcare proxy will bring a copy of that we are going to invoke it 11/06 increase olanzapine to 20mg po qhs and 10mg po daily. 11/07 continue tx. 12/04 continue tx. Reason for continued inpatient stay Substantial Risk for: inability to function Time Spent With Patient Time: Total time managing care of this patient today ____ minutes.
[2024-12-04] MEDS: OLANZapine 10 MG VIAL IM ×2 (08:54→21:42)
[2024-12-04] MEDS: diazePAM 10 MG/2 ML CARTRIDGE 5 MG IM ×3 (08:54→21:41)
--- NOTE | 2024-12-04 09:56 | PC.NURSE ---
Declined morning medications and vital signs. IM Valium and Zyprexa given per court order. Dr. Castro notified.
[2024-12-04 20:00] VITALS: PULSE 87; RESP 17; TEMP 36.9; O2SAT 99
[2024-12-05 08:00] VITALS: RESP 18; TEMP 36.9
--- NOTE | 2024-12-05 10:41 | PC.NURSE ---
Would not allow vital signs with the exception of temperature and Dr. Castro notified.
[2024-12-05] MEDS: OLANZapine 10 MG VIAL IM (10:48)
[2024-12-05] MEDS: diazePAM 10 MG/2 ML CARTRIDGE 5 MG IM ×2 (10:48→16:34)
--- NOTE | 2024-12-05 10:56 | PC.NURSE ---
Humza declined morning medications subsequently he received HCP affirmed IM Valium and Zyprexa. Dr. Castro notified.
--- NOTE | 2024-12-05 11:12 | P.PNPSI_ITS ---
Subjective Subjective Date of Service: 12/05/24 Reason For Visit: Anxiety, mood disorder, ASD Interim History: Met with patient. Discussed with Nursing. Overall continues to be less agitated and distress accepting/prefers IM medications. Patient in his room. Minimal engagement. Pleasant. Did state that I am ok , otherwise minimal engagement. Medication Compliance: Yes Side effects from medications: No Attending Groups: No Review of Systems Acute medical concerns: No Review of Systems Review of Systems I am OK . Mental Status Exam Mental Status Exam Narrative: Patient seen in room. Weighted blanket. Stated he was okay. Pleasant. Would not engage in conversation. Unable to evaluate SI, HI, psychosis. Diagnostics Vital Signs (24Hr): Vital Signs - 24 hr 12/04/24 20:00 12/05/24 08:00 Temperature 98.4 F 98.4 F Pulse Rate 87 Respiratory Rate 17 18 Pulse Oximetry 99 Oxygen Delivery Method Room Air BMI result Body Mass Index 25.9 Labs 10/28/24 09:10 11/11/24 08:31 Medications Medications Current Medications Acetaminophen (Acetaminophen 325 Mg Tablet) 650 mg PO Q6H PRN PRN Reason: Headache/Pain Mild Scale (1-3) Al Hydroxide/Mg Hydroxide (Magnesium Hydrox/Alum Hydrox 30 Ml Oral.Susp) 30 ml PO Q6H PRN PRN Reason: Heartburn/Nausea Atorvastatin Calcium (Atorvastatin Calcium 80 Mg Tablet) 80 mg PO BEDTIME [facility] Last Admin: 12/04/24 22:06 Dose: Not Given Benztropine Mesylate (Benztropine Mesylate 0.5 Mg Tablet) 1 mg PO BEDTIME [facility] Last Admin: 12/04/24 22:06 Dose: Not Given Diazepam (Diazepam 5 Mg Tablet) 5 mg PO TID [facility] Last Admin: 12/05/24 10:49 Dose: Not Given Diazepam (Diazepam 10 Mg/2 Ml Cartridge) 5 mg IM TID PRN PRN Reason: PO refusal Last Admin: 12/05/24 10:48 Dose: 5 mg Empagliflozin (Empagliflozin 10 Mg Tablet) 10 mg PO DAILY [facility] Last Admin: 12/05/24 10:49 Dose: Not Given Furosemide (Furosemide 20 Mg Tablet) 20 mg PO DAILY [facility]; Protocol Last Admin: 12/05/24 10:49 Dose: Not Given Hydroxyzine HCl (Hydroxyzine Hcl 25 Mg Tablet) 25 mg PO Q6H PRN PRN Reason: Anxiety Last Admin: 11/18/24 17:38 Dose: 25 mg Lisinopril (Lisinopril 20 Mg Tablet) 20 mg PO DAILY [facility]; Protocol Last Admin: 12/05/24 10:49 Dose: Not Given Lorazepam (Lorazepam 1 Mg Tablet) 2 mg PO Q6H PRN PRN Reason: Agitation Last Admin: 11/26/24 09:05 Dose: 2 mg Magnesium Hydroxide (Milk Of Magnesia 30 Ml Oral.Susp) 30 ml PO DAILY PRN PRN Reason: Constipation Memantine (Memantine Hcl 5 Mg Tablet) 5 mg PO BID [facility] Last Admin: 12/05/24 10:49 Dose: Not Given Metformin HCl (Metformin Hcl Er 500 Mg Tab.Er.24h) 500 mg PO BID [facility] [place] Last Admin: 12/05/24 10:49 Dose: Not Given Mirtazapine (Mirtazapine 30 Mg Tablet) 30 mg PO BEDTIME [facility] Last Admin: 12/04/24 22:08 Dose: Not Given Nicotine (Nicotine 21 Mg Patch.Td24) 21 mg TRANSDERMA DAILY PRN PRN Reason: nicotine cravings Nicotine Polacrilex (Nicotine Polacrilex 2 Mg Gum) 4 mg BUCCAL Q2H PRN PRN Reason: Nicotine Cravings Olanzapine (Olanzapine 10 Mg Tablet) 20 mg PO BEDTIME [facility] [place] Last Admin: 12/04/24 22:09 Dose: Not Given Olanzapine (Olanzapine Odt 10 Mg Tab.Rapdis) 10 mg TRANSLINGU DAILY [facility] [place] Last Admin: 12/05/24 10:49 Dose: Not Given Olanzapine (Olanzapine 10 Mg Vial) 10 mg IM BID PRN PRN Reason: PO refusal Last Admin: 12/05/24 10:48 Dose: 10 mg Oxcarbazepine (Oxcarbazepine 300 Mg Tablet) 600 mg PO BID [facility] [place] Last Admin: 12/05/24 10:50 Dose: Not Given Primidone (Primidone 50 Mg Tablet) 50 mg PO BID [facility] Last Admin: 12/05/24 10:50 Dose: Not Given Sertraline HCl (Sertraline Hcl 100 Mg Tablet) 100 mg PO DAILY [facility] [place] Last Admin: 12/05/24 10:50 Dose: Not Given Tamsulosin HCl (Tamsulosin Hcl 0.4 Mg Capsule) 0.4 mg PO DAILY [facility] [place] Last Admin: 12/05/24 10:50 Dose: Not Given Trazodone HCl (Trazodone Hcl 50 Mg Tablet) 50 mg PO BEDTIME MRX1 PRN PRN Reason: Insomnia Last Admin: 11/07/24 22:07 Dose: 50 mg Allergies Allergies Allergy/AdvReac Type Severity Reaction Status Date / Time No Known Allergies Allergy Verified 10/14/24 18:14 [No Known Allergies*] Assessment & Plan Assessment & Plan (1) Mood disorder: Status: Acute Code(s): F39 - Unspecified mood [affective] disorder (2) Autism spectrum disorder: Status: Acute Code(s): F84.0 - Autistic disorder (3) Neurocognitive disorder: Status: Acute Code(s): R41.9 - Unspecified symptoms and signs involving cognitive functions and awareness Plan Humza was admitted for safety and stabilization. His presentation is very similar to his last admission psychiatrically about a year ago and that is why his caregivers wanted to get ahead of things before he decompensated further. Current medications were reviewed and maintained. Contacts to be made with his treaters next week. 10/17: Continue current regimen and plans 10/19: Continue current tx plan and regime. 10/21: Memantine 5 mg daily- [facility], memory sx Abilify 2 mg daily-augment to antidepressants currently being used. 10/22 continue current tx plan -pt confused 10/23 Continue trials, regime and plan. 10/24: Continue regime and plan of care. 10/25 Abilify increased up to 5 mg. 10/26 keep on same treatment 10/27/24 continues with many complaints, no clear insight into self- 10/28 continue same treatment 10/29 increase Namenda to 5 mg p.o. b.i.d. and change Depakote to Depakene. Depakote level on 13/02 as per blood work of yesterday 10/30/24 - dc [facility]il[facility] inc olanzapine = continue depakene as he did take 5 capsules this am- prn olanzapine given - this afternoon for behaviors on unit- 10/31/24 wrote for liquid depakote option if refuses capsules, also got prn olanzapine for throwing self on floor 11/01 keep same treatment 11/02 increase Zyprexa to 20 mg p.o. q.h.s. 11/03 keep same treatment. 11/04 discontinue Depakote and start Trileptal 300 mg p.o. b.i.d.. Her healthcare proxy will bring a copy of that we are going to invoke it 11/06 increase olanzapine to 20mg po qhs and 10mg po daily. 11/07 continue tx. 12/04 continue tx. 12/05: no changes Reason for continued inpatient stay Substantial Risk for: inability to function and rapid decompensation Time Spent With Patient Time: Total time managing care of this patient today ____ minutes.
[2024-12-05] MEDS: Mirtazapine 30 MG TABLET PO (21:52)
[2024-12-05] MEDS: OLANZapine 10 MG TABLET 20 MG PO (21:52)
[2024-12-05] MEDS: diazePAM 5 MG TABLET PO (21:52)
[2024-12-06 08:00] VITALS: RESP 20; TEMP 36.4
[2024-12-06] MEDS: OLANZapine ODT 10 MG TAB.RAPDIS TRANSLINGU (10:55)
[2024-12-06] MEDS: diazePAM 5 MG TABLET PO ×3 (10:56→20:21)
--- NOTE | 2024-12-06 11:58 | HO.PSYCHPN ---
Subjective Subjective Date of Service: 12/06/24 Reason For Visit: Anxiety, mood disorder, ASD Subjective Notes: Conditional Voluntary Interim History: Pt slept through the night. No combative behaviors during the day. No yelling nor attempts to self harm. He has been taking medications more consistently. He denies any concerns. sitting watching TV. povert of thought, not interacting with peers. Medication Compliance: Intermittent Review of Systems Review of Systems I am OK . Yes all other systems are reviewed and are negative and Unobtainable due to mental status Mental Status Exam Mental Status Exam Patient Appearance: Appropriate Patient Orientation: Person and Situation Level of Consciousness: Awake and Appropriate Patient Behavior: Guarded and Passive Mood Description: Withdrawn Affect Description: Blunted Patient Cognition Impaired: Yes Ability to Follow Directions: Good Speech Pattern: Clear Memory Description: Remote Impaired Diagnostics Vital Signs (24Hr): Vital Signs - 24 hr 12/06/24 08:00 Temperature 97.5 F Respiratory Rate 20 BMI result Body Mass Index 25.9 Labs 10/28/24 09:10 11/11/24 08:31 Medications Medications Current Medications Acetaminophen (Acetaminophen 325 Mg Tablet) 650 mg PO Q6H PRN PRN Reason: Headache/Pain Mild Scale (1-3) Al Hydroxide/Mg Hydroxide (Magnesium Hydrox/Alum Hydrox 30 Ml Oral.Susp) 30 ml PO Q6H PRN PRN Reason: Heartburn/Nausea Atorvastatin Calcium (Atorvastatin Calcium 80 Mg Tablet) 80 mg PO BEDTIME [facility] Last Admin: 12/05/24 22:27 Dose: Not Given Benztropine Mesylate (Benztropine Mesylate 0.5 Mg Tablet) 1 mg PO BEDTIME [facility] Last Admin: 12/05/24 22:27 Dose: Not Given Diazepam (Diazepam 5 Mg Tablet) 5 mg PO TID [facility] Last Admin: 12/06/24 10:56 Dose: 5 mg Diazepam (Diazepam 10 Mg/2 Ml Cartridge) 5 mg IM TID PRN PRN Reason: PO refusal. HOLD FOR SEDATION Last Admin: 12/05/24 16:34 Dose: 5 mg Empagliflozin (Empagliflozin 10 Mg Tablet) 10 mg PO DAILY [facility] Last Admin: 12/06/24 10:52 Dose: Not Given Furosemide (Furosemide 20 Mg Tablet) 20 mg PO DAILY [facility]; Protocol Last Admin: 12/06/24 10:52 Dose: Not Given Hydroxyzine HCl (Hydroxyzine Hcl 25 Mg Tablet) 25 mg PO Q6H PRN PRN Reason: Anxiety Last Admin: 11/18/24 17:38 Dose: 25 mg Lisinopril (Lisinopril 20 Mg Tablet) 20 mg PO DAILY [facility]; Protocol Last Admin: 12/06/24 10:53 Dose: Not Given Lorazepam (Lorazepam 1 Mg Tablet) 2 mg PO Q6H PRN PRN Reason: Agitation Last Admin: 11/26/24 09:05 Dose: 2 mg Magnesium Hydroxide (Milk Of Magnesia 30 Ml Oral.Susp) 30 ml PO DAILY PRN PRN Reason: Constipation Memantine (Memantine Hcl 5 Mg Tablet) 5 mg PO BID [facility] Last Admin: 12/06/24 10:53 Dose: Not Given Metformin HCl (Metformin Hcl Er 500 Mg Tab.Er.24h) 500 mg PO BID [facility] Last Admin: 12/06/24 10:53 Dose: Not Given Mirtazapine (Mirtazapine 30 Mg Tablet) 30 mg PO BEDTIME [facility] Last Admin: 12/05/24 21:52 Dose: 30 mg Nicotine (Nicotine 21 Mg Patch.Td24) 21 mg TRANSDERMA DAILY PRN PRN Reason: nicotine cravings Nicotine Polacrilex (Nicotine Polacrilex 2 Mg Gum) 4 mg BUCCAL Q2H PRN PRN Reason: Nicotine Cravings Olanzapine (Olanzapine 10 Mg Tablet) 20 mg PO BEDTIME [facility] Last Admin: 12/05/24 21:52 Dose: 20 mg Olanzapine (Olanzapine Odt 10 Mg Tab.Rapdis) 10 mg TRANSLINGU DAILY [facility] Last Admin: 12/06/24 10:55 Dose: 10 mg Olanzapine (Olanzapine 10 Mg Vial) 10 mg IM BID PRN PRN Reason: PO refusal Last Admin: 12/05/24 10:48 Dose: 10 mg Oxcarbazepine (Oxcarbazepine 300 Mg Tablet) 600 mg PO BID [facility] Last Admin: 12/06/24 10:53 Dose: Not Given Primidone (Primidone 50 Mg Tablet) 50 mg PO BID [facility] Last Admin: 12/06/24 10:54 Dose: Not Given Sertraline HCl (Sertraline Hcl 100 Mg Tablet) 100 mg PO DAILY [facility] Last Admin: 12/06/24 10:54 Dose: Not Given Tamsulosin HCl (Tamsulosin Hcl 0.4 Mg Capsule) 0.4 mg PO DAILY [facility] Last Admin: 12/06/24 10:54 Dose: Not Given Trazodone HCl (Trazodone Hcl 50 Mg Tablet) 50 mg PO BEDTIME MRX1 PRN PRN Reason: Insomnia Last Admin: 11/07/24 22:07 Dose: 50 mg Allergies Allergies Allergy/AdvReac Type Severity Reaction Status Date / Time No Known Allergies Allergy Verified 10/14/24 18:14 [No Known Allergies*] Assessment & Plan Assessment & Plan (1) Mood disorder: Status: Acute Code(s): F39 - Unspecified mood [affective] disorder (2) Autism spectrum disorder: Status: Acute Code(s): F84.0 - Autistic disorder (3) Neurocognitive disorder: Status: Acute Code(s): R41.9 - Unspecified symptoms and signs involving cognitive functions and awareness Plan Humza was admitted for safety and stabilization. His presentation is very similar to his last admission psychiatrically about a year ago and that is why his caregivers wanted to get ahead of things before he decompensated further. Current medications were reviewed and maintained. Contacts to be made with his treaters next week. 10/17: Continue current regimen and plans 10/19: Continue current tx plan and regime. 10/21: Memantine 5 mg daily- [facility], memory sx Abilify 2 mg daily-augment to antidepressants currently being used. 10/22 continue current tx plan -pt confused 10/23 Continue trials, regime and plan. 10/24: Continue regime and plan of care. 10/25 Abilify increased up to 5 mg. 10/26 keep on same treatment 10/27/24 continues with many complaints, no clear insight into self- 10/28 continue same treatment 10/29 increase Namenda to 5 mg p.o. b.i.d. and change Depakote to Depakene. Depakote level on 13/02 as per blood work of yesterday 10/30/24 - [facility] ol[facility]apine = continue depakene as he did take 5 capsules this am- prn olanzapine given - this afternoon for behaviors on unit- 10/31/24 wrote for liquid depakote option if refuses capsules, also got prn olanzapine for throwing self on floor 11/01 keep same treatment 11/02 increase Zyprexa to 20 mg p.o. q.h.s. 11/03 keep same treatment. 1/9 discontinue Depakote and start Trileptal 300 mg p.o. b.i.d.. Her healthcare proxy will bring a copy of that we are going to invoke it 11/06 increase olanzapine to 20mg po qhs and 10mg po daily. 11/07 continue tx. 12/04 continue tx. 12/05: no changes 12/06 continue tx. Reason for continued inpatient stay Substantial Risk for: inability to function Time Spent With Patient Time: Total time managing care of this patient today ____ minutes.
[2024-12-06] MEDS: OLANZapine 10 MG TABLET 20 MG PO (20:21)
[2024-12-06] MEDS: Memantine HCl 5 MG TABLET PO (20:21)
[2024-12-06] MEDS: Mirtazapine 30 MG TABLET PO (20:21)
[2024-12-07 08:00] VITALS: RESP 20; TEMP 36.9
[2024-12-07] MEDS: OLANZapine ODT 10 MG TAB.RAPDIS TRANSLINGU (11:09)
[2024-12-07] MEDS: diazePAM 5 MG TABLET PO ×3 (11:10→21:15)
--- NOTE | 2024-12-07 11:15 | P.PNPSI_ITS ---
Subjective Subjective Date of Service: 12/07/24 Reason For Visit: Anxiety, mood disorder, ASD Subjective Notes: Conditional Voluntary Healthcare Proxy: Yes Interim History: The nursing staff reported the patient has taking medications with encouragement but so far he has not taking Zoloft. He is only taking Zyprexa and Valium that has backup IM p.r.n.. The occupational therapist observed less aggressiveness since his on benzodiazepines and antipsychotics. On interview the patient remains guarded, dysphoric. I encouraged him compliance. Mental Status Exam Mental Status Exam Patient Appearance: Appropriate Patient Orientation: Person and Situation Level of Consciousness: Awake and Appropriate Patient Behavior: Guarded and Passive Mood Description: Withdrawn Affect Description: Constricted Patient Cognition Impaired: Yes Ability to Follow Directions: Good Speech Pattern: Clear Hallucinations: None Delusions: Paranoid Ideation and Ideas of Reference Thought Process: Distracted and Slowed Thinking Thought Content: positive for [place] and positive for Poverty of Content Judgement: Fair Diagnostics Vital Signs (24Hr): BMI result Body Mass Index 25.9 Labs 10/28/24 09:10 11/11/24 08:31 Medications Medications Current Medications Acetaminophen (Acetaminophen 325 Mg Tablet) 650 mg PO Q6H PRN PRN Reason: Headache/Pain Mild Scale (1-3) Al Hydroxide/Mg Hydroxide (Magnesium Hydrox/Alum Hydrox 30 Ml Oral.Susp) 30 ml PO Q6H PRN PRN Reason: Heartburn/Nausea Atorvastatin Calcium (Atorvastatin Calcium 80 Mg Tablet) 80 mg PO BEDTIME [facility] Last Admin: 12/06/24 21:48 Dose: Not Given Benztropine Mesylate (Benztropine Mesylate 0.5 Mg Tablet) 1 mg PO BEDTIME [facility] Last Admin: 12/06/24 21:48 Dose: Not Given Diazepam (Diazepam 5 Mg Tablet) 5 mg PO TID [facility] Last Admin: 12/07/24 11:10 Dose: 5 mg Diazepam (Diazepam 10 Mg/2 Ml Cartridge) 5 mg IM TID PRN PRN Reason: PO refusal. HOLD FOR SEDATION Last Admin: 12/05/24 16:34 Dose: 5 mg Empagliflozin (Empagliflozin 10 Mg Tablet) 10 mg PO DAILY [facility] Last Admin: 12/06/24 10:52 Dose: Not Given Furosemide (Furosemide 20 Mg Tablet) 20 mg PO DAILY [facility]; Protocol Last Admin: 12/06/24 10:52 Dose: Not Given Hydroxyzine HCl (Hydroxyzine Hcl 25 Mg Tablet) 25 mg PO Q6H PRN PRN Reason: Anxiety Last Admin: 11/18/24 17:38 Dose: 25 mg Lisinopril (Lisinopril 20 Mg Tablet) 20 mg PO DAILY [facility]; Protocol Last Admin: 12/06/24 10:53 Dose: Not Given Lorazepam (Lorazepam 1 Mg Tablet) 2 mg PO Q6H PRN PRN Reason: Agitation Last Admin: 11/26/24 09:05 Dose: 2 mg Magnesium Hydroxide (Milk Of Magnesia 30 Ml Oral.Susp) 30 ml PO DAILY PRN PRN Reason: Constipation Memantine (Memantine Hcl 5 Mg Tablet) 5 mg PO BID [facility] Last Admin: 12/06/24 20:21 Dose: 5 mg Metformin HCl (Metformin Hcl Er 500 Mg Tab.Er.24h) 500 mg PO BID [facility] Last Admin: 12/06/24 21:48 Dose: Not Given Mirtazapine (Mirtazapine 30 Mg Tablet) 30 mg PO BEDTIME [facility] Last Admin: 12/06/24 20:21 Dose: 30 mg Nicotine (Nicotine 21 Mg Patch.Td24) 21 mg TRANSDERMA DAILY PRN PRN Reason: nicotine cravings Nicotine Polacrilex (Nicotine Polacrilex 2 Mg Gum) 4 mg BUCCAL Q2H PRN PRN Reason: Nicotine Cravings Olanzapine (Olanzapine 10 Mg Tablet) 20 mg PO BEDTIME [facility] Last Admin: 12/06/24 20:21 Dose: 20 mg Olanzapine (Olanzapine Odt 10 Mg Tab.Rapdis) 10 mg TRANSLINGU DAILY [facility] Last Admin: 12/07/24 11:09 Dose: 10 mg Olanzapine (Olanzapine 10 Mg Vial) 10 mg IM BID PRN PRN Reason: PO refusal Last Admin: 12/05/24 10:48 Dose: 10 mg Oxcarbazepine (Oxcarbazepine 300 Mg Tablet) 600 mg PO BID [facility] Last Admin: 12/06/24 21:48 Dose: Not Given Primidone (Primidone 50 Mg Tablet) 50 mg PO BID [facility] Last Admin: 12/06/24 21:48 Dose: Not Given Sertraline HCl (Sertraline Hcl 100 Mg Tablet) 100 mg PO DAILY [facility] Last Admin: 12/06/24 10:54 Dose: Not Given Tamsulosin HCl (Tamsulosin Hcl 0.4 Mg Capsule) 0.4 mg PO DAILY [facility] Last Admin: 12/06/24 10:54 Dose: Not Given Trazodone HCl (Trazodone Hcl 50 Mg Tablet) 50 mg PO BEDTIME MRX1 PRN PRN Reason: Insomnia Last Admin: 11/07/24 22:07 Dose: 50 mg Allergies Allergies Allergy/AdvReac Type Severity Reaction Status Date / Time No Known Allergies Allergy Verified 10/14/24 18:14 [No Known Allergies*] Assessment & Plan Assessment & Plan (1) Mood disorder: Status: Acute Code(s): F39 - Unspecified mood [affective] disorder (2) Autism spectrum disorder: Status: Acute Code(s): F84.0 - Autistic disorder (3) Neurocognitive disorder: Status: Acute Code(s): R41.9 - Unspecified symptoms and signs involving cognitive functions and awareness Plan Humza was admitted for safety and stabilization. His presentation is very similar to his last admission psychiatrically about a year ago and that is why his caregivers wanted to get ahead of things before he decompensated further. Current medications were reviewed and maintained. Contacts to be made with his treaters next week. 10/17: Continue current regimen and plans 10/19: Continue current tx plan and regime. 10/21: Memantine 5 mg daily- [facility], memory sx Abilify 2 mg daily-augment to antidepressants currently being used. 10/22 continue current tx plan -pt confused 10/23 Continue trials, regime and plan. 10/24: Continue regime and plan of care. 10/25 Abilify increased up to 5 mg. 10/26 keep on same treatment 10/27/24 continues with many complaints, no clear insight into self- 10/28 continue same treatment 10/29 increase Namenda to 5 mg p.o. b.i.d. and change Depakote to Depakene. Depakote level on 13/02 as per blood work of yesterday 10/30/24 - mi [facility]il[facility] inc olanzapine = continue depakene as he did take 5 capsules this am- prn olanzapine given - this afternoon for behaviors on unit- 10/31/24 wrote for liquid depakote option if refuses capsules, also got prn olanzapine for throwing self on floor 11/01 keep same treatment 11/02 increase Zyprexa to 20 mg p.o. q.h.s. 11/03 keep same treatment. 11/04 discontinue Depakote and start Trileptal 300 mg p.o. b.i.d.. Her healthcare proxy will bring a copy of that we are going to invoke it 11/06 increase olanzapine to 20mg po qhs and 10mg po daily. 11/07 continue tx. 12/04 continue tx. 12/05: no changes 12/06 continue tx. Plan 1. Continue with olanzapine 10 mg p.o. q.a.m. and 20 mg p.o. q.h.s., he refused p.o. he received olanzapine IM. 2. Continue with Valium 5 mg p.o. t.i.d. if he refuses he will get Valium IM. 3. We will encourage compliance. The patient had been noncompliant with sertraline, he remains dysphoric. 4. The patient has a healthcare proxy who was affirmed by court, and they want us to medicate him even if the patient does not want to be compliant. Reason for continued inpatient stay Substantial Risk for: inability to function, rapid decompensation and med/psych decompensation Time Spent With Patient Time: Total time managing care of this patient today __20__ minutes.
[2024-12-07] MEDS: OLANZapine 10 MG TABLET 20 MG PO (21:14)
[2024-12-07] MEDS: OXcarbazepine 300 MG TABLET 600 MG PO (21:15)
[2024-12-07] MEDS: Mirtazapine 30 MG TABLET PO (21:15)
[2024-12-07] MEDS: Atorvastatin Calcium 80 MG TABLET PO (21:15)
[2024-12-07] MEDS: Primidone 50 MG TABLET PO (21:16)
[2024-12-07] MEDS: Benztropine Mesylate 0.5 MG TABLET 1 MG PO (21:16)
[2024-12-07] MEDS: Memantine HCl 5 MG TABLET PO (21:16)
[2024-12-07] MEDS: metFORMIN HCl ER 500 MG TAB.ER.24H PO (21:16)
[2024-12-08 08:00] VITALS: RESP 18
[2024-12-08] MEDS: OLANZapine 10 MG VIAL IM (11:55)
[2024-12-08] MEDS: diazePAM 10 MG/2 ML CARTRIDGE 5 MG IM (11:55)
--- NOTE | 2024-12-08 13:20 | P.PNPSI_ITS ---
Subjective Subjective Date of Service: 12/08/24 Reason For Visit: Anxiety, mood disorder, ASD Subjective Notes: Conditional Voluntary Healthcare Proxy: Yes Interim History: The nursing staff reported the patient had taking Valium and Zyprexa he refused other medications. He remains anxious and he has 1 or 2 adverse but redirectable. He slept on and off. On interview the patient looks disheveled confused but redirectable less violent. Mental Status Exam Mental Status Exam Patient Appearance: Disheveled and Unkempt Patient Orientation: Person Level of Consciousness: Awake and Appropriate Patient Behavior: Guarded and Passive Mood Description: Withdrawn Affect Description: Constricted Patient Cognition Impaired: Yes Ability to Follow Directions: Good Speech Pattern: Clear Hallucinations: None Delusions: Paranoid Ideation and Ideas of Reference Thought Process: Distracted and Slowed Thinking Thought Content: positive for [place] and positive for Poverty of Content Judgement: Poor Diagnostics Vital Signs (24Hr): BMI result Body Mass Index 25.9 Labs 10/28/24 09:10 11/11/24 08:31 Medications Medications Current Medications Acetaminophen (Acetaminophen 325 Mg Tablet) 650 mg PO Q6H PRN PRN Reason: Headache/Pain Mild Scale (1-3) Al Hydroxide/Mg Hydroxide (Magnesium Hydrox/Alum Hydrox 30 Ml Oral.Susp) 30 ml PO Q6H PRN PRN Reason: Heartburn/Nausea Atorvastatin Calcium (Atorvastatin Calcium 80 Mg Tablet) 80 mg PO BEDTIME [facility] Last Admin: 12/07/24 21:15 Dose: 80 mg Benztropine Mesylate (Benztropine Mesylate 0.5 Mg Tablet) 1 mg PO BEDTIME [facility] Last Admin: 12/07/24 21:16 Dose: 1 mg Diazepam (Diazepam 5 Mg Tablet) 5 mg PO TID [facility] Last Admin: 12/08/24 12:03 Dose: Not Given Diazepam (Diazepam 10 Mg/2 Ml Cartridge) 5 mg IM TID PRN PRN Reason: PO refusal. HOLD FOR SEDATION Last Admin: 12/08/24 11:55 Dose: 5 mg Empagliflozin (Empagliflozin 10 Mg Tablet) 10 mg PO DAILY [facility] Last Admin: 12/08/24 10:26 Dose: Not Given Furosemide (Furosemide 20 Mg Tablet) 20 mg PO DAILY [facility]; Protocol Last Admin: 12/08/24 10:26 Dose: Not Given Hydroxyzine HCl (Hydroxyzine Hcl 25 Mg Tablet) 25 mg PO Q6H PRN PRN Reason: Anxiety Last Admin: 11/18/24 17:38 Dose: 25 mg Lisinopril (Lisinopril 20 Mg Tablet) 20 mg PO DAILY [facility]; Protocol Last Admin: 12/08/24 10:26 Dose: Not Given Lorazepam (Lorazepam 1 Mg Tablet) 2 mg PO Q6H PRN PRN Reason: Agitation Last Admin: 11/26/24 09:05 Dose: 2 mg Magnesium Hydroxide (Milk Of Magnesia 30 Ml Oral.Susp) 30 ml PO DAILY PRN PRN Reason: Constipation Memantine (Memantine Hcl 5 Mg Tablet) 5 mg PO BID [facility] Last Admin: 12/08/24 10:26 Dose: Not Given Metformin HCl (Metformin Hcl Er 500 Mg Tab.Er.24h) 500 mg PO BID [facility] Last Admin: 12/08/24 10:26 Dose: Not Given Mirtazapine (Mirtazapine 30 Mg Tablet) 30 mg PO BEDTIME [facility] Last Admin: 12/07/24 21:15 Dose: 30 mg Nicotine (Nicotine 21 Mg Patch.Td24) 21 mg TRANSDERMA DAILY PRN PRN Reason: nicotine cravings Nicotine Polacrilex (Nicotine Polacrilex 2 Mg Gum) 4 mg BUCCAL Q2H PRN PRN Reason: Nicotine Cravings Olanzapine (Olanzapine 10 Mg Tablet) 20 mg PO BEDTIME [facility] Last Admin: 12/07/24 21:14 Dose: 20 mg Olanzapine (Olanzapine Odt 10 Mg Tab.Rapdis) 10 mg TRANSLINGU DAILY [facility] Last Admin: 12/08/24 12:03 Dose: Not Given Olanzapine (Olanzapine 10 Mg Vial) 10 mg IM BID PRN PRN Reason: PO refusal Last Admin: 12/08/24 11:55 Dose: 10 mg Oxcarbazepine (Oxcarbazepine 300 Mg Tablet) 600 mg PO BID [facility] Last Admin: 12/08/24 10:26 Dose: Not Given Primidone (Primidone 50 Mg Tablet) 50 mg PO BID [facility] Last Admin: 12/08/24 10:27 Dose: Not Given Sertraline HCl (Sertraline Hcl 100 Mg Tablet) 100 mg PO DAILY [facility] Last Admin: 12/08/24 10:27 Dose: Not Given Tamsulosin HCl (Tamsulosin Hcl 0.4 Mg Capsule) 0.4 mg PO DAILY [facility] Last Admin: 12/08/24 10:27 Dose: Not Given Trazodone HCl (Trazodone Hcl 50 Mg Tablet) 50 mg PO BEDTIME MRX1 PRN PRN Reason: Insomnia Last Admin: 11/07/24 22:07 Dose: 50 mg Allergies Allergies Allergy/AdvReac Type Severity Reaction Status Date / Time No Known Allergies Allergy Verified 10/14/24 18:14 [No Known Allergies*] Assessment & Plan Assessment & Plan (1) Mood disorder: Status: Acute Code(s): F39 - Unspecified mood [affective] disorder (2) Autism spectrum disorder: Status: Acute Code(s): F84.0 - Autistic disorder (3) Neurocognitive disorder: Status: Acute Code(s): R41.9 - Unspecified symptoms and signs involving cognitive functions and awareness Plan Humza was admitted for safety and stabilization. His presentation is very similar to his last admission psychiatrically about a year ago and that is why his caregivers wanted to get ahead of things before he decompensated further. Current medications were reviewed and maintained. Contacts to be made with his treaters next week. 10/17: Continue current regimen and plans 10/19: Continue current tx plan and regime. 10/21: Memantine 5 mg daily- [facility], memory sx Abilify 2 mg daily-augment to antidepressants currently being used. 10/22 continue current tx plan -pt confused 10/23 Continue trials, regime and plan. 10/24: Continue regime and plan of care. 10/25 Abilify increased up to 5 mg. 10/26 keep on same treatment 10/27/24 continues with many complaints, no clear insight into self- 10/28 continue same treatment 10/29 increase Namenda to 5 mg p.o. b.i.d. and change Depakote to Depakene. Depakote level on 13/02 as per blood work of yesterday 10/30/24 - dc abilify inc olanzapine = continue depakene as he did take 5 capsules this am- prn olanzapine given - this afternoon for behaviors on unit- 10/31/24 wrote for liquid depakote option if refuses capsules, also got prn olanzapine for throwing self on floor 11/01 keep same treatment 11/02 increase Zyprexa to 20 mg p.o. q.h.s. 11/03 keep same treatment. 11/04 discontinue Depakote and start Trileptal 300 mg p.o. b.i.d.. Her healthcare proxy will bring a copy of that we are going to invoke it 11/06 increase olanzapine to 20mg po qhs and 10mg po daily. 11/07 continue tx. 12/04 continue tx. 12/05: no changes 12/06 continue tx. Plan 1. Continue with olanzapine 10 mg p.o. q.a.m. and 20 mg p.o. q.h.s., he refused p.o. he received olanzapine IM. 2. Continue with Valium 5 mg p.o. t.i.d. if he refuses he will get Valium IM. 3. We will encourage compliance. The patient had been noncompliant with sertraline, he remains dysphoric. 4. The patient has a healthcare proxy who was affirmed by court, and they want us to medicate him even if the patient does not want to be compliant. Reason for continued inpatient stay Substantial Risk for: inability to function, rapid decompensation and med/psych decompensation Time Spent With Patient Time: Total time managing care of this patient today __20__ minutes.
[2024-12-08] MEDS: diazePAM 5 MG TABLET PO ×2 (15:20→22:00)
[2024-12-08] MEDS: OLANZapine 10 MG TABLET 20 MG PO (22:00)
[2024-12-08] MEDS: Mirtazapine 30 MG TABLET PO (22:00)
[2024-12-09 07:00] VITALS: BMI 26.5
[2024-12-09 08:00] VITALS: RESP 18; TEMP 36.3
--- NOTE | 2024-12-09 10:30 | P.PNPSI_ITS ---
Subjective Subjective Date of Service: 12/09/24 Reason For Visit: Anxiety, mood disorder, ASD Subjective Notes: Conditional Voluntary Healthcare Proxy: Yes Interim History: The nursing staff reported the patient received IM backup for refusal of p.o. meds yesterday in the morning. He took his meds in the evening, the staff noticed that he looks a little better. On interview the patient was internally preoccupied, not very verbal, he denies new symptoms. On physical exam there is mild cogwheeling Mental Status Exam Mental Status Exam Patient Appearance: Appropriate Patient Orientation: Person and Situation Level of Consciousness: Awake Patient Behavior: Guarded and Passive Mood Description: Withdrawn Affect Description: Blunted Patient Cognition Impaired: Yes Ability to Follow Directions: Fair Speech Pattern: Impoverished and Monotone Hallucinations: None Delusions: Paranoid Ideation and Ideas of Reference Thought Process: Distracted and Slowed Thinking Thought Content: positive for [place] and positive for Poverty of Content Judgement: Poor Diagnostics Vital Signs (24Hr): BMI result Body Mass Index 25.9 Labs 10/28/24 09:10 11/11/24 08:31 Medications Medications Current Medications Acetaminophen (Acetaminophen 325 Mg Tablet) 650 mg PO Q6H PRN PRN Reason: Headache/Pain Mild Scale (1-3) Al Hydroxide/Mg Hydroxide (Magnesium Hydrox/Alum Hydrox 30 Ml Oral.Susp) 30 ml PO Q6H PRN PRN Reason: Heartburn/Nausea Atorvastatin Calcium (Atorvastatin Calcium 80 Mg Tablet) 80 mg PO BEDTIME [facility] Last Admin: 12/08/24 22:31 Dose: Not Given Benztropine Mesylate (Benztropine Mesylate 0.5 Mg Tablet) 1 mg PO BEDTIME [facility] Last Admin: 12/08/24 22:31 Dose: Not Given Diazepam (Diazepam 5 Mg Tablet) 5 mg PO TID [facility] Last Admin: 12/08/24 22:00 Dose: 5 mg Diazepam (Diazepam 10 Mg/2 Ml Cartridge) 5 mg IM TID PRN PRN Reason: PO refusal. HOLD FOR SEDATION Last Admin: 12/08/24 11:55 Dose: 5 mg Empagliflozin (Empagliflozin 10 Mg Tablet) 10 mg PO DAILY [facility] Last Admin: 12/08/24 10:26 Dose: Not Given Furosemide (Furosemide 20 Mg Tablet) 20 mg PO DAILY [facility]; Protocol Last Admin: 12/08/24 10:26 Dose: Not Given Hydroxyzine HCl (Hydroxyzine Hcl 25 Mg Tablet) 25 mg PO Q6H PRN PRN Reason: Anxiety Last Admin: 11/18/24 17:38 Dose: 25 mg Lisinopril (Lisinopril 20 Mg Tablet) 20 mg PO DAILY [facility]; Protocol Last Admin: 12/08/24 10:26 Dose: Not Given Lorazepam (Lorazepam 1 Mg Tablet) 2 mg PO Q6H PRN PRN Reason: Agitation Last Admin: 11/26/24 09:05 Dose: 2 mg Magnesium Hydroxide (Milk Of Magnesia 30 Ml Oral.Susp) 30 ml PO DAILY PRN PRN Reason: Constipation Memantine (Memantine Hcl 5 Mg Tablet) 5 mg PO BID [facility] Last Admin: 12/08/24 22:32 Dose: Not Given Metformin HCl (Metformin Hcl Er 500 Mg Tab.Er.24h) 500 mg PO BID [facility] Last Admin: 12/08/24 22:32 Dose: Not Given Mirtazapine (Mirtazapine 30 Mg Tablet) 30 mg PO BEDTIME [facility] Last Admin: 12/08/24 22:00 Dose: 30 mg Nicotine (Nicotine 21 Mg Patch.Td24) 21 mg TRANSDERMA DAILY PRN PRN Reason: nicotine cravings Nicotine Polacrilex (Nicotine Polacrilex 2 Mg Gum) 4 mg BUCCAL Q2H PRN PRN Reason: Nicotine Cravings Olanzapine (Olanzapine 10 Mg Tablet) 20 mg PO BEDTIME [facility] Last Admin: 12/08/24 22:00 Dose: 20 mg Olanzapine (Olanzapine Odt 10 Mg Tab.Rapdis) 10 mg TRANSLINGU DAILY [facility] Last Admin: 12/08/24 12:03 Dose: Not Given Olanzapine (Olanzapine 10 Mg Vial) 10 mg IM BID PRN PRN Reason: PO refusal Last Admin: 12/08/24 11:55 Dose: 10 mg Oxcarbazepine (Oxcarbazepine 300 Mg Tablet) 600 mg PO BID [facility] Last Admin: 12/08/24 22:33 Dose: Not Given Primidone (Primidone 50 Mg Tablet) 50 mg PO BID [facility] Last Admin: 12/08/24 22:33 Dose: Not Given Sertraline HCl (Sertraline Hcl 100 Mg Tablet) 100 mg PO DAILY [facility] Last Admin: 12/08/24 10:27 Dose: Not Given Tamsulosin HCl (Tamsulosin Hcl 0.4 Mg Capsule) 0.4 mg PO DAILY [facility] Last Admin: 12/08/24 10:27 Dose: Not Given Trazodone HCl (Trazodone Hcl 50 Mg Tablet) 50 mg PO BEDTIME MRX1 PRN PRN Reason: Insomnia Last Admin: 11/07/24 22:07 Dose: 50 mg Allergies Allergies Allergy/AdvReac Type Severity Reaction Status Date / Time No Known Allergies Allergy Verified 10/14/24 18:14 [No Known Allergies*] Assessment & Plan Assessment & Plan (1) Mood disorder: Status: Acute Code(s): F39 - Unspecified mood [affective] disorder (2) Autism spectrum disorder: Status: Acute Code(s): F84.0 - Autistic disorder (3) Neurocognitive disorder: Status: Acute Code(s): R41.9 - Unspecified symptoms and signs involving cognitive functions and awareness Plan Humza was admitted for safety and stabilization. His presentation is very similar to his last admission psychiatrically about a year ago and that is why his caregivers wanted to get ahead of things before he decompensated further. Current medications were reviewed and maintained. Contacts to be made with his treaters next week. 10/17: Continue current regimen and plans 10/19: Continue current tx plan and regime. 10/21: Memantine 5 mg daily- [facility], memory sx Abilify 2 mg daily-augment to antidepressants currently being used. 10/22 continue current tx plan -pt confused 10/23 Continue trials, regime and plan. 10/24: Continue regime and plan of care. 10/25 Abilify increased up to 5 mg. 10/26 keep on same treatment 10/27/24 continues with many complaints, no clear insight into self- 10/28 continue same treatment 10/29 increase Namenda to 5 mg p.o. b.i.d. and change Depakote to Depakene. Depakote level on 13/02 as per blood work of yesterday 10/30/24 - dc abilify inc olanzapine = continue depakene as he did take 5 capsules this am- prn olanzapine given - this afternoon for behaviors on unit- 10/31/24 wrote for liquid depakote option if refuses capsules, also got prn olanzapine for throwing self on floor 11/01 keep same treatment 11/02 increase Zyprexa to 20 mg p.o. q.h.s. 11/03 keep same treatment. 11/04 discontinue Depakote and start Trileptal 300 mg p.o. b.i.d.. Her healthcare proxy will bring a copy of that we are going to invoke it 11/06 increase olanzapine to 20mg po qhs and 10mg po daily. 11/07 continue tx. 12/04 continue tx. 12/05: no changes 12/06 continue tx. Plan 1. Continue with olanzapine 10 mg p.o. q.a.m. and 20 mg p.o. q.h.s., he refused p.o. he received olanzapine IM. 2. Continue with Valium 5 mg p.o. t.i.d. if he refuses he will get Valium IM. 3. We will encourage compliance. The patient had been noncompliant with sertraline, he remains dysphoric. 4. The patient has a healthcare proxy who was affirmed by court, and they want us to medicate him even if the patient does not want to be compliant. Reason for continued inpatient stay Substantial Risk for: inability to function, rapid decompensation and med/psych decompensation Time Spent With Patient Time: Total time managing care of this patient today __20__ minutes.
--- NOTE | 2024-12-09 11:24 | PC.NURSE ---
Humza declined vital signs and morning medications will get IM backup HCP affirmed meds. Dr. Pereira notified.
[2024-12-09] MEDS: diazePAM 10 MG/2 ML CARTRIDGE 5 MG IM ×3 (11:53→22:01)
[2024-12-09] MEDS: OLANZapine 10 MG VIAL IM ×2 (11:53→22:02)
--- NOTE | 2024-12-09 15:46 | PC.NURSE ---
Humza declined creatinine lab draw, Dr. Pereira notified.
[2024-12-10 08:00] VITALS: BP 141/84; PULSE 76; RESP 16; TEMP 36.6; O2SAT 97
--- NOTE | 2024-12-10 13:06 | HO.PSYCHPN ---
Subjective Subjective Date of Service: 12/10/24 Reason For Visit: Anxiety, mood disorder, ASD Subjective Notes: Conditional Voluntary Healthcare Proxy: Yes Interim History: The nursing staff reported the patient refused his medications and needed an IM as per wishes of the healthcare proxy. He had been irritable and he slept 8 hours. On interview the patient is internally preoccupied and moves slightly over-sedated. Mental Status Exam Mental Status Exam Patient Appearance: Unkempt Patient Orientation: Person and Situation Level of Consciousness: Awake and Appropriate Patient Behavior: Guarded and Passive Mood Description: Withdrawn Affect Description: Blunted Patient Cognition Impaired: Yes Ability to Follow Directions: Good Speech Pattern: Clear Hallucinations: Auditory Delusions: Paranoid Ideation and Ideas of Reference Thought Process: Distracted and Slowed Thinking Thought Content: positive for [place] and positive for Poverty of Content Judgement: Poor Diagnostics Vital Signs (24Hr): Vital Signs - 24 hr 12/10/24 08:00 Temperature 98 F Pulse Rate 76 Respiratory Rate 16 Blood Pressure 141/84 H Pulse Oximetry 97 Oxygen Delivery Method Room Air BMI result Body Mass Index 26.5 Labs 10/28/24 09:10 11/11/24 08:31 Medications Medications Current Medications Acetaminophen (Acetaminophen 325 Mg Tablet) 650 mg PO Q6H PRN PRN Reason: Headache/Pain Mild Scale (1-3) Al Hydroxide/Mg Hydroxide (Magnesium Hydrox/Alum Hydrox 30 Ml Oral.Susp) 30 ml PO Q6H PRN PRN Reason: Heartburn/Nausea Atorvastatin Calcium (Atorvastatin Calcium 80 Mg Tablet) 80 mg PO BEDTIME [facility] Last Admin: 12/09/24 22:11 Dose: Not Given Benztropine Mesylate (Benztropine Mesylate 0.5 Mg Tablet) 1 mg PO BEDTIME [facility] Last Admin: 12/09/24 22:11 Dose: Not Given Diazepam (Diazepam 5 Mg Tablet) 5 mg PO TID [facility] Last Admin: 12/10/24 09:59 Dose: Not Given Diazepam (Diazepam 10 Mg/2 Ml Cartridge) 5 mg IM TID PRN PRN Reason: PO refusal. HOLD FOR SEDATION Last Admin: 12/09/24 22:01 Dose: 5 mg Empagliflozin (Empagliflozin 10 Mg Tablet) 10 mg PO DAILY [facility] Last Admin: 12/10/24 09:59 Dose: Not Given Furosemide (Furosemide 20 Mg Tablet) 20 mg PO DAILY [facility]; Protocol Last Admin: 12/10/24 09:59 Dose: Not Given Hydroxyzine HCl (Hydroxyzine Hcl 25 Mg Tablet) 25 mg PO Q6H PRN PRN Reason: Anxiety Last Admin: 11/18/24 17:38 Dose: 25 mg Lisinopril (Lisinopril 20 Mg Tablet) 20 mg PO DAILY [facility]; Protocol Last Admin: 12/10/24 10:00 Dose: Not Given Lorazepam (Lorazepam 1 Mg Tablet) 2 mg PO Q6H PRN PRN Reason: Agitation Last Admin: 11/26/24 09:05 Dose: 2 mg Magnesium Hydroxide (Milk Of Magnesia 30 Ml Oral.Susp) 30 ml PO DAILY PRN PRN Reason: Constipation Memantine (Memantine Hcl 5 Mg Tablet) 5 mg PO BID [facility] Last Admin: 12/10/24 10:00 Dose: Not Given Metformin HCl (Metformin Hcl Er 500 Mg Tab.Er.24h) 500 mg PO BID [facility] Last Admin: 12/10/24 10:01 Dose: Not Given Mirtazapine (Mirtazapine 30 Mg Tablet) 30 mg PO BEDTIME [facility] Last Admin: 12/09/24 22:12 Dose: Not Given Nicotine (Nicotine 21 Mg Patch.Td24) 21 mg TRANSDERMA DAILY PRN PRN Reason: nicotine cravings Nicotine Polacrilex (Nicotine Polacrilex 2 Mg Gum) 4 mg BUCCAL Q2H PRN PRN Reason: Nicotine Cravings Olanzapine (Olanzapine 10 Mg Tablet) 20 mg PO BEDTIME [facility] Last Admin: 12/09/24 22:12 Dose: Not Given Olanzapine (Olanzapine Odt 10 Mg Tab.Rapdis) 10 mg TRANSLINGU DAILY [facility] Last Admin: 12/10/24 10:01 Dose: Not Given Olanzapine (Olanzapine 10 Mg Vial) 10 mg IM BID PRN PRN Reason: PO refusal Last Admin: 12/09/24 22:02 Dose: 10 mg Oxcarbazepine (Oxcarbazepine 300 Mg Tablet) 600 mg PO BID [facility] Last Admin: 12/10/24 10:01 Dose: Not Given Primidone (Primidone 50 Mg Tablet) 50 mg PO BID [facility] Last Admin: 12/10/24 10:02 Dose: Not Given Sertraline HCl (Sertraline Hcl 100 Mg Tablet) 100 mg PO DAILY [facility] Last Admin: 12/10/24 10:00 Dose: Not Given Tamsulosin HCl (Tamsulosin Hcl 0.4 Mg Capsule) 0.4 mg PO DAILY [facility] Last Admin: 12/10/24 10:00 Dose: Not Given Trazodone HCl (Trazodone Hcl 50 Mg Tablet) 50 mg PO BEDTIME MRX1 PRN PRN Reason: Insomnia Last Admin: 11/07/24 22:07 Dose: 50 mg Allergies Allergies Allergy/AdvReac Type Severity Reaction Status Date / Time No Known Allergies Allergy Verified 10/14/24 18:14 [No Known Allergies*] Assessment & Plan Assessment & Plan (1) Mood disorder: Status: Acute Code(s): F39 - Unspecified mood [affective] disorder (2) Autism spectrum disorder: Status: Acute Code(s): F84.0 - Autistic disorder (3) Neurocognitive disorder: Status: Acute Code(s): R41.9 - Unspecified symptoms and signs involving cognitive functions and awareness Plan Humza was admitted for safety and stabilization. His presentation is very similar to his last admission psychiatrically about a year ago and that is why his caregivers wanted to get ahead of things before he decompensated further. Current medications were reviewed and maintained. Contacts to be made with his treaters next week. 10/17: Continue current regimen and plans 10/19: Continue current tx plan and regime. 10/21: Memantine 5 mg daily- [facility], memory sx Abilify 2 mg daily-augment to antidepressants currently being used. 10/22 continue current tx plan -pt confused 10/23 Continue trials, regime and plan. 10/24: Continue regime and plan of care. 10/25 Abilify increased up to 5 mg. 10/26 keep on same treatment 10/27/24 continues with many complaints, no clear insight into self- 10/28 continue same treatment 10/29 increase Namenda to 5 mg p.o. b.i.d. and change Depakote to Depakene. Depakote level on 13/02 as per blood work of yesterday 10/30/24 - al ray inc olanzapine = continue depakene as he did take 5 capsules this am- prn olanzapine given - this afternoon for behaviors on unit- 10/31/24 wrote for liquid depakote option if refuses capsules, also got prn olanzapine for throwing self on floor 11/01 keep same treatment 11/02 increase Zyprexa to 20 mg p.o. q.h.s. 11/03 keep same treatment. 11/04 discontinue Depakote and start Trileptal 300 mg p.o. b.i.d.. Her healthcare proxy will bring a copy of that we are going to invoke it 11/06 increase olanzapine to 20mg po qhs and 10mg po daily. 11/07 continue tx. 12/04 continue tx. 12/05: no changes 12/06 continue tx. Plan 1. Continue with olanzapine 10 mg p.o. q.a.m. and 20 mg p.o. q.h.s., he refused p.o. he received olanzapine IM. 2. Continue with Valium 5 mg p.o. t.i.d. if he refuses he will get Valium IM. 3. We will encourage compliance. The patient had been noncompliant with sertraline, he remains dysphoric. 4. The patient has a healthcare proxy who was affirmed by court, and they want us to medicate him even if the patient does not want to be compliant. 5. At this moment the patient is slightly over-sedated with EPS but we will keep the same dose of antipsychotics until Friday and see if his mood is more regulated. Reason for continued inpatient stay Substantial Risk for: inability to function, rapid decompensation and med/psych decompensation Time Spent With Patient Time: Total time managing care of this patient today __20__ minutes.
--- NOTE | 2024-12-10 14:43 | PC.NURSE ---
Pt. rousable, but lethargic and nonsensical in AM. Did not eat breakfast. AM meds held for lethargy.
[2024-12-10] MEDS: diazePAM 10 MG/2 ML CARTRIDGE 5 MG IM (15:05)
[2024-12-10] MEDS: OLANZapine 10 MG TABLET 20 MG PO (21:18)
[2024-12-10] MEDS: Mirtazapine 30 MG TABLET PO (21:18)
[2024-12-10] MEDS: Memantine HCl 5 MG TABLET PO (21:18)
[2024-12-10] MEDS: metFORMIN HCl ER 500 MG TAB.ER.24H PO (21:19)
[2024-12-10] MEDS: diazePAM 5 MG TABLET PO (21:28)
[2024-12-11 08:00] VITALS: RESP 18; TEMP 36.6
--- NOTE | 2024-12-11 09:29 | P.PNPSI_ITS ---
Subjective Subjective Date of Service: 12/11/24 Reason For Visit: Anxiety, mood disorder, ASD Interim History: Pt seen, review with team, who report no concerns today. Today, pt is in milieu, engaged in watching a television program. He appears calm, content and without agitation or rumination when seen He has good eye contact and a spontaneous smile when greeted. Medication Compliance: Yes Side effects from medications: No Attending Groups: Yes Review of Systems Acute medical concerns: No Review of Systems Review of Systems denies Mental Status Exam Mental Status Exam Patient Appearance: Unkempt Patient Orientation: Person and Situation Level of Consciousness: Awake and Appropriate Patient Behavior: Guarded and Passive Mood Description: Withdrawn Affect Description: Blunted Patient Cognition Impaired: Yes Ability to Follow Directions: Good Speech Pattern: Clear Hallucinations: Auditory Delusions: Paranoid Ideation and Ideas of Reference Thought Process: Distracted and Slowed Thinking Thought Content: positive for [place] and positive for Poverty of Content Judgement: Poor Diagnostics Vital Signs (24Hr): BMI result Body Mass Index 26.5 Labs 10/28/24 09:10 11/11/24 08:31 Medications Medications Current Medications Acetaminophen (Acetaminophen 325 Mg Tablet) 650 mg PO Q6H PRN PRN Reason: Headache/Pain Mild Scale (1-3) Al Hydroxide/Mg Hydroxide (Magnesium Hydrox/Alum Hydrox 30 Ml Oral.Susp) 30 ml PO Q6H PRN PRN Reason: Heartburn/Nausea Atorvastatin Calcium (Atorvastatin Calcium 80 Mg Tablet) 80 mg PO BEDTIME COUNT [facility] Last Admin: 12/10/24 21:26 Dose: Not Given Benztropine Mesylate (Benztropine Mesylate 0.5 Mg Tablet) 1 mg PO BEDTIME COUNT [facility]CLUD[facility] Last Admin: 12/10/24 21:26 Dose: Not Given Diazepam (Diazepam 5 Mg Tablet) 5 mg PO TID COUNT [facility]CLUDES [facility] Last Admin: 12/10/24 21:28 Dose: 5 mg Diazepam (Diazepam 10 Mg/2 Ml Cartridge) 5 mg IM TID PRN PRN Reason: PO refusal. HOLD FOR SEDATION Last Admin: 12/10/24 15:05 Dose: 5 mg Empagliflozin (Empagliflozin 10 Mg Tablet) 10 mg PO DAILY [facility] Last Admin: 12/10/24 09:59 Dose: Not Given Furosemide (Furosemide 20 Mg Tablet) 20 mg PO DAILY COUNT [facility]; Protocol Last Admin: 12/10/24 09:59 Dose: Not Given Hydroxyzine HCl (Hydroxyzine Hcl 25 Mg Tablet) 25 mg PO Q6H PRN PRN Reason: Anxiety Last Admin: 11/18/24 17:38 Dose: 25 mg Lisinopril (Lisinopril 20 Mg Tablet) 20 mg PO DAILY [facility]; Protocol Last Admin: 12/10/24 10:00 Dose: Not Given Lorazepam (Lorazepam 1 Mg Tablet) 2 mg PO Q6H PRN PRN Reason: Agitation Last Admin: 11/26/24 09:05 Dose: 2 mg Magnesium Hydroxide (Milk Of Magnesia 30 Ml Oral.Susp) 30 ml PO DAILY PRN PRN Reason: Constipation Memantine (Memantine Hcl 5 Mg Tablet) 5 mg PO BID [facility] Last Admin: 12/10/24 21:18 Dose: 5 mg Metformin HCl (Metformin Hcl Er 500 Mg Tab.Er.24h) 500 mg PO BID [facility] Last Admin: 12/10/24 21:19 Dose: 500 mg Mirtazapine (Mirtazapine 30 Mg Tablet) 30 mg PO BEDTIME COUNT [facility]CLUD[facility] Last Admin: 12/10/24 21:18 Dose: 30 mg Nicotine (Nicotine 21 Mg Patch.Td24) 21 mg TRANSDERMA DAILY PRN PRN Reason: nicotine cravings Nicotine Polacrilex (Nicotine Polacrilex 2 Mg Gum) 4 mg BUCCAL Q2H PRN PRN Reason: Nicotine Cravings Olanzapine (Olanzapine 10 Mg Tablet) 20 mg PO BEDTIME COUNT [facility]CLUD[facility] Last Admin: 12/10/24 21:18 Dose: 20 mg Olanzapine (Olanzapine Odt 10 Mg Tab.Rapdis) 10 mg TRANSLINGU DAILY [facility] Last Admin: 12/10/24 10:01 Dose: Not Given Olanzapine (Olanzapine 10 Mg Vial) 10 mg IM BID PRN PRN Reason: PO refusal Last Admin: 12/09/24 22:02 Dose: 10 mg Oxcarbazepine (Oxcarbazepine 300 Mg Tablet) 600 mg PO BID COUNT [facility] Last Admin: 12/10/24 21:31 Dose: Not Given Primidone (Primidone 50 Mg Tablet) 50 mg PO BID COUNT [facility] Last Admin: 12/10/24 21:31 Dose: Not Given Sertraline HCl (Sertraline Hcl 100 Mg Tablet) 100 mg PO DAILY [facility] Last Admin: 12/10/24 10:00 Dose: Not Given Tamsulosin HCl (Tamsulosin Hcl 0.4 Mg Capsule) 0.4 mg PO DAILY [facility] Last Admin: 12/10/24 10:00 Dose: Not Given Trazodone HCl (Trazodone Hcl 50 Mg Tablet) 50 mg PO BEDTIME MRX1 PRN PRN Reason: Insomnia Last Admin: 11/07/24 22:07 Dose: 50 mg Allergies Allergies Allergy/AdvReac Type Severity Reaction Status Date / Time No Known Allergies Allergy Verified 10/14/24 18:14 [No Known Allergies*] Assessment & Plan Assessment & Plan (1) Mood disorder: Status: Acute Code(s): F39 - Unspecified mood [affective] disorder (2) Autism spectrum disorder: Status: Acute Code(s): F84.0 - Autistic disorder (3) Neurocognitive disorder: Status: Acute Code(s): R41.9 - Unspecified symptoms and signs involving cognitive functions and awareness Plan Humza was admitted for safety and stabilization. His presentation is very similar to his last admission psychiatrically about a year ago and that is why his caregivers wanted to get ahead of things before he decompensated further. Current medications were reviewed and maintained. Contacts to be made with his treaters next week. 10/17: Continue current regimen and plans 10/19: Continue current tx plan and regime. 10/21: Memantine 5 mg daily- [facility], memory sx Abilify 2 mg daily-augment to antidepressants currently being used. 10/22 continue current tx plan -pt confused 10/23 Continue trials, regime and plan. 10/24: Continue regime and plan of care. 10/25 Abilify increased up to 5 mg. 10/26 keep on same treatment 10/27/24 continues with many complaints, no clear insight into self- 10/28 continue same treatment 10/29 increase Namenda to 5 mg p.o. b.i.d. and change Depakote to Depakene. Depakote level on 13/02 as per blood work of yesterday 10/30/24 - dc [facility] olanzapine = continue depakene as he did take 5 capsules this am- prn olanzapine given - this afternoon for behaviors on unit- 10/31/24 wrote for liquid depakote option if refuses capsules, also got prn olanzapine for throwing self on floor 11/01 keep same treatment 11/02 increase Zyprexa to 20 mg p.o. q.h.s. 1/8 keep same treatment. 11/04 discontinue Depakote and start Trileptal 300 mg p.o. b.i.d.. Her healthcare proxy will bring a copy of that we are going to invoke it 11/06 increase olanzapine to 20mg po qhs and 10mg po daily. 11/07 continue tx. 12/04 continue tx. 12/05: no changes 12/06 continue tx. 12/11 continue plan of care Plan 1. Continue with olanzapine 10 mg p.o. q.a.m. and 20 mg p.o. q.h.s., he refused p.o. he received olanzapine IM. 2. Continue with Valium 5 mg p.o. t.i.d. if he refuses he will get Valium IM. 3. We will encourage compliance. The patient had been noncompliant with sertraline, he remains dysphoric. 4. The patient has a healthcare proxy who was affirmed by court, and they want us to medicate him even if the patient does not want to be compliant. 5. At this moment the patient is slightly over-sedated with EPS but we will keep the same dose of antipsychotics until Friday and see if his mood is more regulated. Reason for continued inpatient stay Substantial Risk for: rapid decompensation Time Spent With Patient Time: Total time managing care of this patient today ____ minutes.
[2024-12-11] MEDS: OLANZapine ODT 10 MG TAB.RAPDIS TRANSLINGU (10:13)
[2024-12-11] MEDS: diazePAM 5 MG TABLET PO ×2 (10:14→22:46)
[2024-12-11] MEDS: OLANZapine 10 MG VIAL IM (15:46)
[2024-12-11 20:00] VITALS: RESP 16
[2024-12-11] MEDS: OLANZapine 10 MG TABLET 20 MG PO (22:30)
[2024-12-12 08:00] VITALS: RESP 18; TEMP 36.9
--- NOTE | 2024-12-12 09:40 | HO.PSYCHPN ---
Subjective Subjective Date of Service: 12/12/24 Reason For Visit: Anxiety, mood disorder, ASD Interim History: Pt seen in his room, review with his team who report medicine refusal today with resulting need for injection. Pt is ruminative when seen, did I do something wrong,? I had to have a shot. Explained to pt that if he refuses his PO medicines from his MD that he needs to have an injection for consistency of dosing. I don't agree. I don't want to talk anymore. Medication Compliance: No Side effects from medications: No Attending Groups: Intermittent Review of Systems Acute medical concerns: No Medical Review of Systems: unchanged Review of Systems Review of Systems Yes Unobtainable due to mental status Mental Status Exam Mental Status Exam Patient Appearance: Unkempt Patient Orientation: Person and Situation Level of Consciousness: Awake and Appropriate Patient Behavior: Guarded and Passive Mood Description: Withdrawn Affect Description: Blunted Patient Cognition Impaired: Yes Ability to Follow Directions: Good Speech Pattern: Clear Hallucinations: Auditory Delusions: Paranoid Ideation and Ideas of Reference Thought Process: Distracted, Rumination and Slowed Thinking Thought Content: positive for [place], positive for [place] and positive for Poverty of Content Judgement: Poor Diagnostics Vital Signs (24Hr): Vital Signs - 24 hr 12/11/24 20:00 12/12/24 08:00 Temperature 98.4 F Respiratory Rate 16 18 BMI result Body Mass Index 26.5 Labs 10/28/24 09:10 11/11/24 08:31 Medications Medications Current Medications Acetaminophen (Acetaminophen 325 Mg Tablet) 650 mg PO Q6H PRN PRN Reason: Headache/Pain Mild Scale (1-3) Al Hydroxide/Mg Hydroxide (Magnesium Hydrox/Alum Hydrox 30 Ml Oral.Susp) 30 ml PO Q6H PRN PRN Reason: Heartburn/Nausea Atorvastatin Calcium (Atorvastatin Calcium 80 Mg Tablet) 80 mg PO BEDTIME [facility] Last Admin: 12/11/24 22:54 Dose: Not Given Benztropine Mesylate (Benztropine Mesylate 0.5 Mg Tablet) 1 mg PO BEDTIME [facility] Last Admin: 12/11/24 22:54 Dose: Not Given Diazepam (Diazepam 5 Mg Tablet) 5 mg PO TID [facility] Last Admin: 12/11/24 22:46 Dose: 5 mg Diazepam (Diazepam 10 Mg/2 Ml Cartridge) 5 mg IM TID PRN PRN Reason: PO refusal. HOLD FOR SEDATION Last Admin: 12/10/24 15:05 Dose: 5 mg Empagliflozin (Empagliflozin 10 Mg Tablet) 10 mg PO DAILY [facility] Last Admin: 12/11/24 10:28 Dose: Not Given Furosemide (Furosemide 20 Mg Tablet) 20 mg PO DAILY [facility]; Protocol Last Admin: 12/11/24 10:28 Dose: Not Given Hydroxyzine HCl (Hydroxyzine Hcl 25 Mg Tablet) 25 mg PO Q6H PRN PRN Reason: Anxiety Last Admin: 11/18/24 17:38 Dose: 25 mg Lisinopril (Lisinopril 20 Mg Tablet) 20 mg PO DAILY [facility]; Protocol Last Admin: 12/11/24 10:28 Dose: Not Given Lorazepam (Lorazepam 1 Mg Tablet) 2 mg PO Q6H PRN PRN Reason: Agitation Last Admin: 11/26/24 09:05 Dose: 2 mg Magnesium Hydroxide (Milk Of Magnesia 30 Ml Oral.Susp) 30 ml PO DAILY PRN PRN Reason: Constipation Memantine (Memantine Hcl 5 Mg Tablet) 5 mg PO BID [facility] Last Admin: 12/11/24 22:47 Dose: Not Given Metformin HCl (Metformin Hcl Er 500 Mg Tab.Er.24h) 500 mg PO BID [facility] Last Admin: 12/11/24 22:47 Dose: Not Given Mirtazapine (Mirtazapine 30 Mg Tablet) 30 mg PO BEDTIME [facility] Last Admin: 12/11/24 22:47 Dose: Not Given Nicotine (Nicotine 21 Mg Patch.Td24) 21 mg TRANSDERMA DAILY PRN PRN Reason: nicotine cravings Nicotine Polacrilex (Nicotine Polacrilex 2 Mg Gum) 4 mg BUCCAL Q2H PRN PRN Reason: Nicotine Cravings Olanzapine (Olanzapine 10 Mg Tablet) 20 mg PO BEDTIME [facility] Last Admin: 12/11/24 22:30 Dose: 20 mg Olanzapine (Olanzapine Odt 10 Mg Tab.Rapdis) 10 mg TRANSLINGU DAILY [facility] Last Admin: 12/11/24 10:13 Dose: 10 mg Olanzapine (Olanzapine 10 Mg Vial) 10 mg IM BID PRN PRN Reason: PO refusal Last Admin: 12/11/24 15:46 Dose: 10 mg Oxcarbazepine (Oxcarbazepine 300 Mg Tablet) 600 mg PO BID [facility] Last Admin: 12/11/24 22:47 Dose: Not Given Primidone (Primidone 50 Mg Tablet) 50 mg PO BID [facility] Last Admin: 12/11/24 22:48 Dose: Not Given Sertraline HCl (Sertraline Hcl 100 Mg Tablet) 100 mg PO DAILY [facility] Last Admin: 12/11/24 10:21 Dose: Not Given Tamsulosin HCl (Tamsulosin Hcl 0.4 Mg Capsule) 0.4 mg PO DAILY [facility] Last Admin: 12/11/24 10:22 Dose: Not Given Trazodone HCl (Trazodone Hcl 50 Mg Tablet) 50 mg PO BEDTIME MRX1 PRN PRN Reason: Insomnia Last Admin: 11/07/24 22:07 Dose: 50 mg Allergies Allergies Allergy/AdvReac Type Severity Reaction Status Date / Time No Known Allergies Allergy Verified 10/14/24 18:14 [No Known Allergies*] Assessment & Plan Assessment & Plan (1) Mood disorder: Status: Acute Code(s): F39 - Unspecified mood [affective] disorder (2) Autism spectrum disorder: Status: Acute Code(s): F84.0 - Autistic disorder (3) Neurocognitive disorder: Status: Acute Code(s): R41.9 - Unspecified symptoms and signs involving cognitive functions and awareness Plan Humza was admitted for safety and stabilization. His presentation is very similar to his last admission psychiatrically about a year ago and that is why his caregivers wanted to get ahead of things before he decompensated further. Current medications were reviewed and maintained. Contacts to be made with his treaters next week. 10/17: Continue current regimen and plans 10/19: Continue current tx plan and regime. 10/21: Memantine 5 mg daily- [facility], memory sx Abilify 2 mg daily-augment to antidepressants currently being used. 10/22 continue current tx plan -pt confused 10/23 Continue trials, regime and plan. 10/24: Continue regime and plan of care. 10/25 Abilify increased up to 5 mg. 10/26 keep on same treatment 10/27/24 continues with many complaints, no clear insight into self- 10/28 continue same treatment 10/29 increase Namenda to 5 mg p.o. b.i.d. and change Depakote to Depakene. Depakote level on 13/02 as per blood work of yesterday 10/30/24 - dc [facility]il[facility] inc olanzapine = continue depakene as he did take 5 capsules this am- prn olanzapine given - this afternoon for behaviors on unit- 10/31/24 wrote for liquid depakote option if refuses capsules, also got prn olanzapine for throwing self on floor 11/01 keep same treatment 11/02 increase Zyprexa to 20 mg p.o. q.h.s. 11/03 keep same treatment. 11/04 discontinue Depakote and start Trileptal 300 mg p.o. b.i.d.. Her healthcare proxy will bring a copy of that we are going to invoke it 11/06 increase olanzapine to 20mg po qhs and 10mg po daily. 11/07 continue tx. 12/04 continue tx. 12/05: no changes 12/06 continue tx. 12/12: continue plan of care Plan 1. Continue with olanzapine 10 mg p.o. q.a.m. and 20 mg p.o. q.h.s., he refused p.o. he received olanzapine IM. 2. Continue with Valium 5 mg p.o. t.i.d. if he refuses he will get Valium IM. 3. We will encourage compliance. The patient had been noncompliant with sertraline, he remains dysphoric. 4. The patient has a healthcare proxy who was affirmed by court, and they want us to medicate him even if the patient does not want to be compliant. 5. At this moment the patient is slightly over-sedated with EPS but we will keep the same dose of antipsychotics until Friday and see if his mood is more regulated. Reason for continued inpatient stay Substantial Risk for: rapid decompensation Time Spent With Patient Time: Total time managing care of this patient today ____ minutes.
[2024-12-12] MEDS: OLANZapine 10 MG VIAL IM (09:49)
[2024-12-12 19:34] VITALS: BP 168/89; PULSE 86; RESP 16; TEMP 36.5; O2SAT 99
[2024-12-12] MEDS: OLANZapine 10 MG TABLET 20 MG PO (21:42)
[2024-12-12] MEDS: Mirtazapine 30 MG TABLET PO (21:43)
[2024-12-12] MEDS: diazePAM 5 MG TABLET PO (21:43)
--- NOTE | 2024-12-13 08:29 | P.PNPSI_ITS ---
Subjective Subjective Date of Service: 12/13/24 Reason For Visit: Anxiety, mood disorder, ASD Interim History: Required 2 injections due to med refusal. Team report some confusion. Pt today is sleeping soundly when seen Medication Compliance: Intermittent Side effects from medications: Yes (sedation) Attending Groups: No Review of Systems Acute medical concerns: No Review of Systems Review of Systems sedation Mental Status Exam Mental Status Exam Patient Behavior: Asleep Diagnostics Vital Signs (24Hr): Vital Signs - 24 hr 12/12/24 19:34 Temperature 97.7 F Pulse Rate 86 Respiratory Rate 16 Blood Pressure 168/89 H Pulse Oximetry 99 Oxygen Delivery Method Room Air BMI result Body Mass Index 26.5 Labs 10/28/24 09:10 11/11/24 08:31 Medications Medications Current Medications Acetaminophen (Acetaminophen 325 Mg Tablet) 650 mg PO Q6H PRN PRN Reason: Headache/Pain Mild Scale (1-3) Al Hydroxide/Mg Hydroxide (Magnesium Hydrox/Alum Hydrox 30 Ml Oral.Susp) 30 ml PO Q6H PRN PRN Reason: Heartburn/Nausea Atorvastatin Calcium (Atorvastatin Calcium 80 Mg Tablet) 80 mg PO BEDTIME [facility] Last Admin: 12/12/24 22:06 Dose: Not Given Benztropine Mesylate (Benztropine Mesylate 0.5 Mg Tablet) 1 mg PO BEDTIME [facility] Last Admin: 12/12/24 22:06 Dose: Not Given Diazepam (Diazepam 5 Mg Tablet) 5 mg PO TID [facility] Last Admin: 12/12/24 21:43 Dose: 5 mg Diazepam (Diazepam 10 Mg/2 Ml Cartridge) 5 mg IM TID PRN PRN Reason: PO refusal. HOLD FOR SEDATION Last Admin: 12/10/24 15:05 Dose: 5 mg Empagliflozin (Empagliflozin 10 Mg Tablet) 10 mg PO DAILY [facility] Last Admin: 12/12/24 09:46 Dose: Not Given Furosemide (Furosemide 20 Mg Tablet) 20 mg PO DAILY [facility]; Protocol Last Admin: 12/12/24 09:46 Dose: Not Given Hydroxyzine HCl (Hydroxyzine Hcl 25 Mg Tablet) 25 mg PO Q6H PRN PRN Reason: Anxiety Last Admin: 11/18/24 17:38 Dose: 25 mg Lisinopril (Lisinopril 20 Mg Tablet) 20 mg PO DAILY [facility]; Protocol Last Admin: 12/12/24 09:46 Dose: Not Given Lorazepam (Lorazepam 1 Mg Tablet) 2 mg PO Q6H PRN PRN Reason: Agitation Last Admin: 11/26/24 09:05 Dose: 2 mg Magnesium Hydroxide (Milk Of Magnesia 30 Ml Oral.Susp) 30 ml PO DAILY PRN PRN Reason: Constipation Memantine (Memantine Hcl 5 Mg Tablet) 5 mg PO BID [facility] Last Admin: 12/12/24 22:06 Dose: Not Given Metformin HCl (Metformin Hcl Er 500 Mg Tab.Er.24h) 500 mg PO BID [facility] Last Admin: 12/12/24 22:06 Dose: Not Given Mirtazapine (Mirtazapine 30 Mg Tablet) 30 mg PO BEDTIME [facility] Last Admin: 12/12/24 21:43 Dose: 30 mg Nicotine (Nicotine 21 Mg Patch.Td24) 21 mg TRANSDERMA DAILY PRN PRN Reason: nicotine cravings Nicotine Polacrilex (Nicotine Polacrilex 2 Mg Gum) 4 mg BUCCAL Q2H PRN PRN Reason: Nicotine Cravings Olanzapine (Olanzapine 10 Mg Tablet) 20 mg PO BEDTIME [facility] Last Admin: 12/12/24 21:42 Dose: 20 mg Olanzapine (Olanzapine Odt 10 Mg Tab.Rapdis) 10 mg TRANSLINGU DAILY [facility] Last Admin: 12/12/24 09:47 Dose: Not Given Olanzapine (Olanzapine 10 Mg Vial) 10 mg IM BID PRN PRN Reason: PO refusal Last Admin: 12/12/24 09:49 Dose: 10 mg Oxcarbazepine (Oxcarbazepine 300 Mg Tablet) 600 mg PO BID [facility] Last Admin: 12/12/24 22:06 Dose: Not Given Primidone (Primidone 50 Mg Tablet) 50 mg PO BID [facility] Last Admin: 12/12/24 22:06 Dose: Not Given Sertraline HCl (Sertraline Hcl 100 Mg Tablet) 100 mg PO DAILY [facility] Last Admin: 12/12/24 09:47 Dose: Not Given Tamsulosin HCl (Tamsulosin Hcl 0.4 Mg Capsule) 0.4 mg PO DAILY [facility] Last Admin: 12/12/24 09:48 Dose: Not Given Trazodone HCl (Trazodone Hcl 50 Mg Tablet) 50 mg PO BEDTIME MRX1 PRN PRN Reason: Insomnia Last Admin: 11/07/24 22:07 Dose: 50 mg Allergies Allergies Allergy/AdvReac Type Severity Reaction Status Date / Time No Known Allergies Allergy Verified 10/14/24 18:14 [No Known Allergies*] Assessment & Plan Assessment & Plan (1) Mood disorder: Status: Acute Code(s): F39 - Unspecified mood [affective] disorder (2) Autism spectrum disorder: Status: Acute Code(s): F84.0 - Autistic disorder (3) Neurocognitive disorder: Status: Acute Code(s): R41.9 - Unspecified symptoms and signs involving cognitive functions and awareness Plan Humza was admitted for safety and stabilization. His presentation is very similar to his last admission psychiatrically about a year ago and that is why his caregivers wanted to get ahead of things before he decompensated further. Current medications were reviewed and maintained. Contacts to be made with his treaters next week. 10/17: Continue current regimen and plans 10/19: Continue current tx plan and regime. 10/21: Memantine 5 mg daily- [facility], memory sx Abilify 2 mg daily-augment to antidepressants currently being used. 10/22 continue current tx plan -pt confused 10/23 Continue trials, regime and plan. 10/24: Continue regime and plan of care. 10/25 Abilify increased up to 5 mg. 10/26 keep on same treatment 10/27/24 continues with many complaints, no clear insight into self- 10/28 continue same treatment 10/29 increase Namenda to 5 mg p.o. b.i.d. and change Depakote to Depakene. Depakote level on 13/02 as per blood work of yesterday 10/30/24 - [facility] [employer] olanzapine = continue depakene as he did take 5 capsules this am- prn olanzapine given - this afternoon for behaviors on unit- 10/31/24 wrote for liquid depakote option if refuses capsules, also got prn olanzapine for throwing self on floor 11/01 keep same treatment 11/02 increase Zyprexa to 20 mg p.o. q.h.s. 11/03 keep same treatment. 11/04 discontinue Depakote and start Trileptal 300 mg p.o. b.i.d.. Her healthcare proxy will bring a copy of that we are going to invoke it 11/06 increase olanzapine to 20mg po qhs and 10mg po daily. 11/07 continue tx. 12/04 continue tx. 12/05: no changes 12/06 continue tx. 12/12: continue plan of care 12/13: continue tx Plan 1. Continue with olanzapine 10 mg p.o. q.a.m. and 20 mg p.o. q.h.s., he refused p.o. he received olanzapine IM. 2. Continue with Valium 5 mg p.o. t.i.d. if he refuses he will get Valium IM. 3. We will encourage compliance. The patient had been noncompliant with sertraline, he remains dysphoric. 4. The patient has a healthcare proxy who was affirmed by court, and they want us to medicate him even if the patient does not want to be compliant. 5. At this moment the patient is slightly over-sedated with EPS but we will keep the same dose of antipsychotics until Friday and see if his mood is more regulated. Reason for continued inpatient stay Substantial Risk for: rapid decompensation Time Spent With Patient Time: Total time managing care of this patient today ____ minutes.
[2024-12-13] MEDS: OLANZapine 10 MG VIAL IM (09:46)
[2024-12-13] MEDS: diazePAM 10 MG/2 ML CARTRIDGE 5 MG IM (09:46)
--- NOTE | 2024-12-13 09:53 | PC.NURSE ---
Pt refused AM meds and thus received his court ordered meds via IM injection with Security staff present. Pt tolerated well, did not oppose to getting the injection. Pt refused vital signs to be taken despite multiple attempts.
--- NOTE | 2024-12-13 15:21 | PC.NURSE ---
Pt refused blood work despite encouragement. [employer] called and asked lab to come back later
--- NOTE | 2024-12-13 15:22 | PC.NURSE ---
15:00 diazepam held due to noted sedation, pt with flat affect and not responding to questions.
[2024-12-13] MEDS: OLANZapine 10 MG TABLET 20 MG PO (21:35)
[2024-12-13] MEDS: Mirtazapine 30 MG TABLET PO (21:36)
[2024-12-13] MEDS: diazePAM 5 MG TABLET PO (21:36)
[2024-12-14] MEDS: diazePAM 10 MG/2 ML CARTRIDGE 5 MG IM ×2 (09:23→16:22)
[2024-12-14] MEDS: OLANZapine 10 MG VIAL IM (09:24)
--- NOTE | 2024-12-14 10:54 | P.PNPSI_ITS ---
Subjective Subjective Date of Service: 12/14/24 Reason For Visit: Anxiety, mood disorder, ASD Subjective Notes: Conditional Voluntary Interim History: The nursing staff reported the patient has refused his medications and he received his IM backup last night and today in the morning. He slept 6 hours. I reviewed and he had been noncompliant with Zoloft since November 18 and he has not been taking his mood stabilizers. On interview the patient was slightly sedated after his shot but he is less violent. Mental Status Exam Mental Status Exam Patient Appearance: Appropriate Patient Orientation: Person and Situation Level of Consciousness: Awake and Appropriate Patient Behavior: Guarded and Passive Mood Description: Withdrawn Affect Description: Constricted Patient Cognition Impaired: Yes Ability to Follow Directions: Good Speech Pattern: Clear Hallucinations: None Delusions: Paranoid Ideation and Ideas of Reference Thought Process: Distracted and Slowed Thinking Thought Content: positive for [place] and positive for Poverty of Content Judgement: Fair Diagnostics Vital Signs (24Hr): BMI result Body Mass Index 26.5 Labs 10/28/24 09:10 11/11/24 08:31 Medications Medications Current Medications Acetaminophen (Acetaminophen 325 Mg Tablet) 650 mg PO Q6H PRN PRN Reason: Headache/Pain Mild Scale (1-3) Al Hydroxide/Mg Hydroxide (Magnesium Hydrox/Alum Hydrox 30 Ml Oral.Susp) 30 ml PO Q6H PRN PRN Reason: Heartburn/Nausea Atorvastatin Calcium (Atorvastatin Calcium 80 Mg Tablet) 80 mg PO BEDTIME [facility] Last Admin: 12/13/24 21:46 Dose: Not Given Benztropine Mesylate (Benztropine Mesylate 0.5 Mg Tablet) 1 mg PO BEDTIME [facility] Last Admin: 12/13/24 21:46 Dose: Not Given Diazepam (Diazepam 5 Mg Tablet) 5 mg PO TID [facility] Last Admin: 12/14/24 09:51 Dose: Not Given Diazepam (Diazepam 10 Mg/2 Ml Cartridge) 5 mg IM TID PRN PRN Reason: PO refusal. HOLD FOR SEDATION Last Admin: 12/14/24 09:23 Dose: 5 mg Empagliflozin (Empagliflozin 10 Mg Tablet) 10 mg PO DAILY [facility] Last Admin: 12/14/24 09:52 Dose: Not Given Furosemide (Furosemide 20 Mg Tablet) 20 mg PO DAILY [facility]; Protocol Last Admin: 12/14/24 09:52 Dose: Not Given Hydroxyzine HCl (Hydroxyzine Hcl 25 Mg Tablet) 25 mg PO Q6H PRN PRN Reason: Anxiety Last Admin: 11/18/24 17:38 Dose: 25 mg Lisinopril (Lisinopril 20 Mg Tablet) 20 mg PO DAILY [facility]; Protocol Last Admin: 12/14/24 09:52 Dose: Not Given Lorazepam (Lorazepam 1 Mg Tablet) 2 mg PO Q6H PRN PRN Reason: Agitation Last Admin: 11/26/24 09:05 Dose: 2 mg Magnesium Hydroxide (Milk Of Magnesia 30 Ml Oral.Susp) 30 ml PO DAILY PRN PRN Reason: Constipation Memantine (Memantine Hcl 5 Mg Tablet) 5 mg PO BID [facility] Last Admin: 12/14/24 09:52 Dose: Not Given Metformin HCl (Metformin Hcl Er 500 Mg Tab.Er.24h) 500 mg PO BID [facility] Last Admin: 12/14/24 09:52 Dose: Not Given Mirtazapine (Mirtazapine 30 Mg Tablet) 30 mg PO BEDTIME [facility] Last Admin: 12/13/24 21:36 Dose: 30 mg Nicotine (Nicotine 21 Mg Patch.Td24) 21 mg TRANSDERMA DAILY PRN PRN Reason: nicotine cravings Nicotine Polacrilex (Nicotine Polacrilex 2 Mg Gum) 4 mg BUCCAL Q2H PRN PRN Reason: Nicotine Cravings Olanzapine (Olanzapine 10 Mg Tablet) 20 mg PO BEDTIME [facility] Last Admin: 12/13/24 21:35 Dose: 20 mg Olanzapine (Olanzapine Odt 10 Mg Tab.Rapdis) 10 mg TRANSLINGU DAILY [facility] Last Admin: 12/14/24 09:52 Dose: Not Given Olanzapine (Olanzapine 10 Mg Vial) 10 mg IM BID PRN PRN Reason: PO refusal Last Admin: 12/14/24 09:24 Dose: 10 mg Oxcarbazepine (Oxcarbazepine 300 Mg Tablet) 600 mg PO BID [facility] Last Admin: 12/14/24 09:53 Dose: Not Given Primidone (Primidone 50 Mg Tablet) 50 mg PO BID [facility] Last Admin: 12/14/24 09:53 Dose: Not Given Sertraline HCl (Sertraline Hcl 100 Mg Tablet) 100 mg PO DAILY [facility] Last Admin: 12/14/24 09:53 Dose: Not Given Tamsulosin HCl (Tamsulosin Hcl 0.4 Mg Capsule) 0.4 mg PO DAILY [facility] Last Admin: 12/14/24 09:53 Dose: Not Given Trazodone HCl (Trazodone Hcl 50 Mg Tablet) 50 mg PO BEDTIME MRX1 PRN PRN Reason: Insomnia Last Admin: 11/07/24 22:07 Dose: 50 mg Allergies Allergies Allergy/AdvReac Type Severity Reaction Status Date / Time No Known Allergies Allergy Verified 10/14/24 18:14 [No Known Allergies*] Assessment & Plan Assessment & Plan (1) Mood disorder: Status: Acute Code(s): F39 - Unspecified mood [affective] disorder (2) Autism spectrum disorder: Status: Acute Code(s): F84.0 - Autistic disorder (3) Neurocognitive disorder: Status: Acute Code(s): R41.9 - Unspecified symptoms and signs involving cognitive functions and awareness Plan Humza was admitted for safety and stabilization. His presentation is very similar to his last admission psychiatrically about a year ago and that is why his caregivers wanted to get ahead of things before he decompensated further. Current medications were reviewed and maintained. Contacts to be made with his treaters next week. 10/17: Continue current regimen and plans 10/19: Continue current tx plan and regime. 10/21: Memantine 5 mg daily- [facility], memory sx Abilify 2 mg daily-augment to antidepressants currently being used. 10/22 continue current tx plan -pt confused 10/23 Continue trials, regime and plan. 10/24: Continue regime and plan of care. 10/25 Abilify increased up to 5 mg. 10/26 keep on same treatment 10/27/24 continues with many complaints, no clear insight into self- 10/28 continue same treatment 10/29 increase Namenda to 5 mg p.o. b.i.d. and change Depakote to Depakene. Depakote level on 13/02 as per blood work of yesterday 10/30/24 - [place] abilify inc olanzapine = continue depakene as he did take 5 capsules this am- prn olanzapine given - this afternoon for behaviors on unit- 10/31/24 wrote for liquid depakote option if refuses capsules, also got prn olanzapine for throwing self on floor 11/01 keep same treatment 11/02 increase Zyprexa to 20 mg p.o. q.h.s. 11/03 keep same treatment. 11/04 discontinue Depakote and start Trileptal 300 mg p.o. b.i.d.. Her healthcare proxy will bring a copy of that we are going to invoke it 11/06 increase olanzapine to 20mg po qhs and 10mg po daily. 11/07 continue tx. 12/04 continue tx. 12/05: no changes 12/06 continue tx. 12/12: continue plan of care 12/13: continue tx Plan 1. Continue with olanzapine 10 mg p.o. q.a.m. and 20 mg p.o. q.h.s., he refused p.o. he received olanzapine IM. 2. Continue with Valium 5 mg p.o. t.i.d. if he refuses he will get Valium IM. 3. We will encourage compliance. The patient had been noncompliant with sertraline, he remains dysphoric. 4. The patient has a healthcare proxy who was affirmed by court, and they want us to medicate him even if the patient does not want to be compliant. 5. At this moment the patient is slightly over-sedated with EPS but we will keep the same dose of antipsychotics until Friday and see if his mood is more regulated. Reason for continued inpatient stay Substantial Risk for: inability to function, rapid decompensation and med/psych decompensation Time Spent With Patient Time: Total time managing care of this patient today __20__ minutes.
[2024-12-14 20:00] VITALS: RESP 16
[2024-12-14] MEDS: diazePAM 5 MG TABLET PO (21:48)
[2024-12-14] MEDS: OLANZapine 10 MG TABLET 20 MG PO (21:50)
[2024-12-15 08:00] VITALS: BP 127/79; PULSE 76; RESP 18; TEMP 36.8; O2SAT 96
[2024-12-15] MEDS: diazePAM 10 MG/2 ML CARTRIDGE 5 MG IM ×3 (09:38→20:56)
[2024-12-15] MEDS: OLANZapine 10 MG VIAL IM ×2 (09:39→20:57)
--- NOTE | 2024-12-15 10:11 | HO.PSYCHPN ---
Subjective Subjective Date of Service: 12/15/24 Reason For Visit: Anxiety, mood disorder, ASD Subjective Notes: Conditional Voluntary Interim History: The nursing staff reported the patient refused his medications yesterday and today in the morning received the Zyprexa and Valium IM. She had been less violent slept 8 hours but at times he grabs his own throat. He had been noncompliant with mood stabilizers and antidepressants for more than 3 weeks. Also, the pharmacy reported that she had been declining his blood work and we can not monitor his levels. On interview the patient looks internally preoccupied less aggressive. Mental Status Exam Mental Status Exam Patient Appearance: Appropriate Patient Orientation: Person Level of Consciousness: Awake Patient Behavior: Guarded and Passive Mood Description: Withdrawn Affect Description: Constricted Patient Cognition Impaired: Yes Ability to Follow Directions: Good Speech Pattern: Clear Hallucinations: None Delusions: Paranoid Ideation and Ideas of Reference Thought Process: Distracted and Slowed Thinking Thought Content: positive for [place] and positive for Poverty of Content Judgement: Poor Diagnostics Vital Signs (24Hr): Vital Signs - 24 hr 12/14/24 20:00 12/15/24 08:00 Temperature 98.2 F Pulse Rate 76 Respiratory Rate 16 18 Blood Pressure 127/79 Pulse Oximetry 96 Oxygen Delivery Method Room Air BMI result Body Mass Index 26.5 Labs 10/28/24 09:10 11/11/24 08:31 Medications Medications Current Medications Acetaminophen (Acetaminophen 325 Mg Tablet) 650 mg PO Q6H PRN PRN Reason: Headache/Pain Mild Scale (1-3) Al Hydroxide/Mg Hydroxide (Magnesium Hydrox/Alum Hydrox 30 Ml Oral.Susp) 30 ml PO Q6H PRN PRN Reason: Heartburn/Nausea Atorvastatin Calcium (Atorvastatin Calcium 80 Mg Tablet) 80 mg PO BEDTIME [facility] Last Admin: 12/15/24 03:31 Dose: Not Given Benztropine Mesylate (Benztropine Mesylate 0.5 Mg Tablet) 1 mg PO BEDTIME [facility] Last Admin: 12/15/24 03:31 Dose: Not Given Diazepam (Diazepam 5 Mg Tablet) 5 mg PO TID [facility] Last Admin: 12/15/24 08:35 Dose: Not Given Diazepam (Diazepam 10 Mg/2 Ml Cartridge) 5 mg IM TID PRN PRN Reason: PO refusal. HOLD FOR SEDATION Last Admin: 12/15/24 09:38 Dose: 5 mg Empagliflozin (Empagliflozin 10 Mg Tablet) 10 mg PO DAILY [facility] Last Admin: 12/15/24 09:43 Dose: Not Given Furosemide (Furosemide 20 Mg Tablet) 20 mg PO DAILY [facility]; Protocol Last Admin: 12/15/24 09:43 Dose: Not Given Hydroxyzine HCl (Hydroxyzine Hcl 25 Mg Tablet) 25 mg PO Q6H PRN PRN Reason: Anxiety Last Admin: 11/18/24 17:38 Dose: 25 mg Lisinopril (Lisinopril 20 Mg Tablet) 20 mg PO DAILY [facility]; Protocol Last Admin: 12/15/24 09:45 Dose: Not Given Lorazepam (Lorazepam 1 Mg Tablet) 2 mg PO Q6H PRN PRN Reason: Agitation Last Admin: 11/26/24 09:05 Dose: 2 mg Magnesium Hydroxide (Milk Of Magnesia 30 Ml Oral.Susp) 30 ml PO DAILY PRN PRN Reason: Constipation Memantine (Memantine Hcl 5 Mg Tablet) 5 mg PO BID [facility] Last Admin: 12/15/24 09:45 Dose: Not Given Metformin HCl (Metformin Hcl Er 500 Mg Tab.Er.24h) 500 mg PO BID [facility] Last Admin: 12/15/24 03:31 Dose: Not Given Mirtazapine (Mirtazapine 30 Mg Tablet) 30 mg PO BEDTIME [facility] Last Admin: 12/15/24 03:31 Dose: Not Given Nicotine (Nicotine 21 Mg Patch.Td24) 21 mg TRANSDERMA DAILY PRN PRN Reason: nicotine cravings Nicotine Polacrilex (Nicotine Polacrilex 2 Mg Gum) 4 mg BUCCAL Q2H PRN PRN Reason: Nicotine Cravings Olanzapine (Olanzapine 10 Mg Tablet) 20 mg PO BEDTIME [facility] Last Admin: 12/14/24 21:50 Dose: 20 mg Olanzapine (Olanzapine Odt 10 Mg Tab.Rapdis) 10 mg TRANSLINGU DAILY [facility] Last Admin: 12/15/24 08:35 Dose: Not Given Olanzapine (Olanzapine 10 Mg Vial) 10 mg IM BID PRN PRN Reason: PO refusal Last Admin: 12/15/24 09:39 Dose: 10 mg Oxcarbazepine (Oxcarbazepine 300 Mg Tablet) 600 mg PO BID [facility] Last Admin: 12/15/24 03:33 Dose: Not Given Primidone (Primidone 50 Mg Tablet) 50 mg PO BID [facility] Last Admin: 12/15/24 03:32 Dose: Not Given Sertraline HCl (Sertraline Hcl 100 Mg Tablet) 100 mg PO DAILY [facility] Last Admin: 12/14/24 09:53 Dose: Not Given Tamsulosin HCl (Tamsulosin Hcl 0.4 Mg Capsule) 0.4 mg PO DAILY [facility] Last Admin: 12/14/24 09:53 Dose: Not Given Trazodone HCl (Trazodone Hcl 50 Mg Tablet) 50 mg PO BEDTIME MRX1 PRN PRN Reason: Insomnia Last Admin: 11/07/24 22:07 Dose: 50 mg Allergies Allergies Allergy/AdvReac Type Severity Reaction Status Date / Time No Known Allergies Allergy Verified 10/14/24 18:14 [No Known Allergies*] Assessment & Plan Assessment & Plan (1) Mood disorder: Status: Acute Code(s): F39 - Unspecified mood [affective] disorder (2) Autism spectrum disorder: Status: Acute Code(s): F84.0 - Autistic disorder (3) Neurocognitive disorder: Status: Acute Code(s): R41.9 - Unspecified symptoms and signs involving cognitive functions and awareness Plan Humza was admitted for safety and stabilization. His presentation is very similar to his last admission psychiatrically about a year ago and that is why his caregivers wanted to get ahead of things before he decompensated further. Current medications were reviewed and maintained. Contacts to be made with his treaters next week. 10/17: Continue current regimen and plans 10/19: Continue current tx plan and regime. 10/21: Memantine 5 mg daily- [facility], memory sx Abilify 2 mg daily-augment to antidepressants currently being used. 10/22 continue current tx plan -pt confused 10/23 Continue trials, regime and plan. 10/24: Continue regime and plan of care. 10/25 Abilify increased up to 5 mg. 10/26 keep on same treatment 10/27/24 continues with many complaints, no clear insight into self- 10/28 continue same treatment 10/29 increase Namenda to 5 mg p.o. b.i.d. and change Depakote to Depakene. Depakote level on 13/02 as per blood work of yesterday 10/30/24 - dc abilify inc olanzapine = continue depakene as he did take 5 capsules this am- prn olanzapine given - this afternoon for behaviors on unit- 10/31/24 wrote for liquid depakote option if refuses capsules, also got prn olanzapine for throwing self on floor 11/01 keep same treatment 11/02 increase Zyprexa to 20 mg p.o. q.h.s. 11/03 keep same treatment. 11/04 discontinue Depakote and start Trileptal 300 mg p.o. b.i.d.. Her healthcare proxy will bring a copy of that we are going to invoke it 11/06 increase olanzapine to 20mg po qhs and 10mg po daily. 11/07 continue tx. 12/04 continue tx. 12/05: no changes 12/06 continue tx. 12/12: continue plan of care 12/13: continue tx Plan 1. Continue with olanzapine 10 mg p.o. q.a.m. and 20 mg p.o. q.h.s., he refused p.o. he received olanzapine IM. 2. Continue with Valium 5 mg p.o. t.i.d. if he refuses he will get Valium IM. 3. We will encourage compliance. The patient had been noncompliant with sertraline, he remains dysphoric. 4. The patient has a healthcare proxy who was affirmed by court, and they want us to medicate him even if the patient does not want to be compliant. 5. At this moment the patient is slightly over-sedated with EPS but we will keep the same dose of antipsychotics since his violence has improved. Reason for continued inpatient stay Substantial Risk for: inability to function, rapid decompensation and med/psych decompensation Time Spent With Patient Time: Total time managing care of this patient today __20__ minutes.
--- NOTE | 2024-12-15 12:47 | HE.PHANOTE ---
Refusing Renal Labs - Metformin Pt has been refusing his renal labs. Dr. Steiner is aware, he states pt is grossly psychotic already with IM PRN for refusal of antipsychotics .
--- NOTE | 2024-12-15 14:21 | PC.NURSE ---
Lab attempted to draw Zeferino's blood x 2 but was unsuccessful. Zeferino was very pleasant and cooperative.
[2024-12-16] MEDS: OLANZapine 10 MG VIAL IM (09:13)
[2024-12-16] MEDS: diazePAM 10 MG/2 ML CARTRIDGE 5 MG IM (09:13)
--- NOTE | 2024-12-16 15:29 | P.PNPSI_ITS ---
Subjective Subjective Date of Service: 12/16/24 Reason For Visit: Anxiety, mood disorder, ASD Subjective Notes: Conditional Voluntary Healthcare Proxy: Yes Interim History: The nursing staff reported the patient refused her p.o. meds in the morning and in the evening. He received his backup IM. On interview the patient looks slightly sedated denies new symptoms. He had been refusing his mood stabilizers and antidepressants and I encouraged him to follow treatment. Mental Status Exam Mental Status Exam Patient Appearance: Appropriate Patient Orientation: Person and Situation Level of Consciousness: Awake and Appropriate Patient Behavior: Guarded and Passive Mood Description: Withdrawn Affect Description: Blunted Patient Cognition Impaired: Yes Ability to Follow Directions: Good Speech Pattern: Clear Hallucinations: None Delusions: Paranoid Ideation and Ideas of Reference Thought Process: Distracted and Slowed Thinking Thought Content: positive for [place] and positive for Poverty of Content Judgement: Poor Diagnostics Vital Signs (24Hr): BMI result Body Mass Index 26.5 Labs 10/28/24 09:10 11/11/24 08:31 Medications Medications Current Medications Acetaminophen (Acetaminophen 325 Mg Tablet) 650 mg PO Q6H PRN PRN Reason: Headache/Pain Mild Scale (1-3) Al Hydroxide/Mg Hydroxide (Magnesium Hydrox/Alum Hydrox 30 Ml Oral.Susp) 30 ml PO Q6H PRN PRN Reason: Heartburn/Nausea Atorvastatin Calcium (Atorvastatin Calcium 80 Mg Tablet) 80 mg PO BEDTIME [facility] Last Admin: 12/15/24 21:56 Dose: Not Given Benztropine Mesylate (Benztropine Mesylate 0.5 Mg Tablet) 1 mg PO BEDTIME [facility] Last Admin: 12/15/24 21:56 Dose: Not Given Diazepam (Diazepam 5 Mg Tablet) 5 mg PO TID [facility] Last Admin: 12/16/24 09:13 Dose: Not Given Diazepam (Diazepam 10 Mg/2 Ml Cartridge) 5 mg IM TID PRN PRN Reason: PO refusal. HOLD FOR SEDATION Last Admin: 12/16/24 09:13 Dose: 5 mg Empagliflozin (Empagliflozin 10 Mg Tablet) 10 mg PO DAILY [facility] Last Admin: 12/16/24 09:13 Dose: Not Given Furosemide (Furosemide 20 Mg Tablet) 20 mg PO DAILY [facility]; Protocol Last Admin: 12/16/24 09:14 Dose: Not Given Hydroxyzine HCl (Hydroxyzine Hcl 25 Mg Tablet) 25 mg PO Q6H PRN PRN Reason: Anxiety Last Admin: 11/18/24 17:38 Dose: 25 mg Lisinopril (Lisinopril 20 Mg Tablet) 20 mg PO DAILY [facility]; Protocol Last Admin: 12/16/24 09:18 Dose: Not Given Lorazepam (Lorazepam 1 Mg Tablet) 2 mg PO Q6H PRN PRN Reason: Agitation Last Admin: 11/26/24 09:05 Dose: 2 mg Magnesium Hydroxide (Milk Of Magnesia 30 Ml Oral.Susp) 30 ml PO DAILY PRN PRN Reason: Constipation Memantine (Memantine Hcl 5 Mg Tablet) 5 mg PO BID [facility] Last Admin: 12/16/24 09:19 Dose: Not Given Metformin HCl (Metformin Hcl Er 500 Mg Tab.Er.24h) 500 mg PO BID [facility] Last Admin: 12/16/24 09:19 Dose: Not Given Mirtazapine (Mirtazapine 30 Mg Tablet) 30 mg PO BEDTIME [facility] Last Admin: 12/15/24 21:56 Dose: Not Given Nicotine (Nicotine 21 Mg Patch.Td24) 21 mg TRANSDERMA DAILY PRN PRN Reason: nicotine cravings Nicotine Polacrilex (Nicotine Polacrilex 2 Mg Gum) 4 mg BUCCAL Q2H PRN PRN Reason: Nicotine Cravings Olanzapine (Olanzapine 10 Mg Tablet) 20 mg PO BEDTIME [facility] Last Admin: 12/15/24 21:56 Dose: Not Given Olanzapine (Olanzapine Odt 10 Mg Tab.Rapdis) 10 mg TRANSLINGU DAILY [facility] Last Admin: 12/16/24 09:19 Dose: Not Given Olanzapine (Olanzapine 10 Mg Vial) 10 mg IM BID PRN PRN Reason: PO refusal Last Admin: 12/16/24 09:13 Dose: 10 mg Oxcarbazepine (Oxcarbazepine 300 Mg Tablet) 600 mg PO BID [facility] Last Admin: 12/16/24 09:19 Dose: Not Given Primidone (Primidone 50 Mg Tablet) 50 mg PO BID [facility] Last Admin: 12/16/24 09:19 Dose: Not Given Sertraline HCl (Sertraline Hcl 100 Mg Tablet) 100 mg PO DAILY [facility] Last Admin: 12/16/24 09:19 Dose: Not Given Tamsulosin HCl (Tamsulosin Hcl 0.4 Mg Capsule) 0.4 mg PO DAILY [facility] Last Admin: 12/16/24 09:19 Dose: Not Given Trazodone HCl (Trazodone Hcl 50 Mg Tablet) 50 mg PO BEDTIME MRX1 PRN PRN Reason: Insomnia Last Admin: 11/07/24 22:07 Dose: 50 mg Allergies Allergies Allergy/AdvReac Type Severity Reaction Status Date / Time No Known Allergies Allergy Verified 10/14/24 18:14 [No Known Allergies*] Assessment & Plan Assessment & Plan (1) Mood disorder: Status: Acute Code(s): F39 - Unspecified mood [affective] disorder (2) Autism spectrum disorder: Status: Acute Code(s): F84.0 - Autistic disorder (3) Neurocognitive disorder: Status: Acute Code(s): R41.9 - Unspecified symptoms and signs involving cognitive functions and awareness Plan Humza was admitted for safety and stabilization. His presentation is very similar to his last admission psychiatrically about a year ago and that is why his caregivers wanted to get ahead of things before he decompensated further. Current medications were reviewed and maintained. Contacts to be made with his treaters next week. 10/17: Continue current regimen and plans 10/19: Continue current tx plan and regime. 10/21: Memantine 5 mg daily- [facility], memory sx Abilify 2 mg daily-augment to antidepressants currently being used. 10/22 continue current tx plan -pt confused 10/23 Continue trials, regime and plan. 10/24: Continue regime and plan of care. 10/25 Abilify increased up to 5 mg. 10/26 keep on same treatment 10/27/24 continues with many complaints, no clear insight into self- 10/28 continue same treatment 10/29 increase Namenda to 5 mg p.o. b.i.d. and change Depakote to Depakene. Depakote level on 13/02 as per blood work of yesterday 10/30/24 - dc abilify inc olanzapine = continue depakene as he did take 5 capsules this am- prn olanzapine given - this afternoon for behaviors on unit- 10/31/24 wrote for liquid depakote option if refuses capsules, also got prn olanzapine for throwing self on floor 11/01 keep same treatment 11/02 increase Zyprexa to 20 mg p.o. q.h.s. 11/03 keep same treatment. 11/04 discontinue Depakote and start Trileptal 300 mg p.o. b.i.d.. Her healthcare proxy will bring a copy of that we are going to invoke it 11/06 increase olanzapine to 20mg po qhs and 10mg po daily. 11/07 continue tx. 12/04 continue tx. 12/05: no changes 12/06 continue tx. 12/12: continue plan of care 12/13: continue tx Plan 1. Continue with olanzapine 10 mg p.o. q.a.m. and 20 mg p.o. q.h.s., he refused p.o. he received olanzapine IM. 2. Continue with Valium 5 mg p.o. t.i.d. if he refuses he will get Valium IM. 3. We will encourage compliance. The patient had been noncompliant with sertraline, he remains dysphoric. 4. The patient has a healthcare proxy who was affirmed by court, and they want us to medicate him even if the patient does not want to be compliant. 5. At this moment the patient is slightly over-sedated with EPS but we will keep the same dose of antipsychotics since his violence has improved. Reason for continued inpatient stay Substantial Risk for: inability to function, rapid decompensation and med/psych decompensation Time Spent With Patient Time: Total time managing care of this patient today __20__ minutes.
[2024-12-16] MEDS: diazePAM 5 MG TABLET PO ×2 (15:30→22:04)
[2024-12-16 20:00] VITALS: RESP 16
[2024-12-16] MEDS: OLANZapine 10 MG TABLET 20 MG PO (22:04)
[2024-12-17] MEDS: OLANZapine ODT 10 MG TAB.RAPDIS TRANSLINGU (09:29)
--- NOTE | 2024-12-17 12:22 | P.PNPSI_ITS ---
Subjective Subjective Date of Service: 12/17/24 Reason For Visit: Anxiety, mood disorder, ASD Subjective Notes: Conditional Voluntary Healthcare Proxy: Yes Interim History: The nursing staff reported no changes in his mental status most of the time isolative. He took p.o. Zyprexa. On interview the patient remains seclusive, internally preoccupied. Mental Status Exam Mental Status Exam Patient Appearance: Unkempt Patient Orientation: Person and Situation Level of Consciousness: Awake Patient Behavior: Guarded and Passive Mood Description: Withdrawn Affect Description: Blunted Patient Cognition Impaired: Yes Ability to Follow Directions: Fair Speech Pattern: Clear Hallucinations: None Delusions: Paranoid Ideation and Ideas of Reference Thought Process: Distracted and Slowed Thinking Thought Content: positive for [place] and positive for Poverty of Content Judgement: Poor Diagnostics Vital Signs (24Hr): Vital Signs - 24 hr 12/16/24 20:00 Respiratory Rate 16 BMI result Body Mass Index 26.5 Labs 10/28/24 09:10 11/11/24 08:31 Medications Medications Current Medications Acetaminophen (Acetaminophen 325 Mg Tablet) 650 mg PO Q6H PRN PRN Reason: Headache/Pain Mild Scale (1-3) Al Hydroxide/Mg Hydroxide (Magnesium Hydrox/Alum Hydrox 30 Ml Oral.Susp) 30 ml PO Q6H PRN PRN Reason: Heartburn/Nausea Atorvastatin Calcium (Atorvastatin Calcium 80 Mg Tablet) 80 mg PO BEDTIME [facility] Last Admin: 12/16/24 22:28 Dose: Not Given Benztropine Mesylate (Benztropine Mesylate 0.5 Mg Tablet) 1 mg PO BEDTIME [facility] Last Admin: 12/16/24 22:29 Dose: Not Given Diazepam (Diazepam 5 Mg Tablet) 5 mg PO TID [facility] Last Admin: 12/17/24 09:49 Dose: Not Given Diazepam (Diazepam 10 Mg/2 Ml Cartridge) 5 mg IM TID PRN PRN Reason: PO refusal. HOLD FOR SEDATION Last Admin: 12/16/24 09:13 Dose: 5 mg Empagliflozin (Empagliflozin 10 Mg Tablet) 10 mg PO DAILY [facility] Last Admin: 12/17/24 09:49 Dose: Not Given Furosemide (Furosemide 20 Mg Tablet) 20 mg PO DAILY [facility]; Protocol Last Admin: 12/17/24 09:50 Dose: Not Given Hydroxyzine HCl (Hydroxyzine Hcl 25 Mg Tablet) 25 mg PO Q6H PRN PRN Reason: Anxiety Last Admin: 11/18/24 17:38 Dose: 25 mg Lisinopril (Lisinopril 20 Mg Tablet) 20 mg PO DAILY [facility]; Protocol Last Admin: 12/17/24 09:50 Dose: Not Given Lorazepam (Lorazepam 1 Mg Tablet) 2 mg PO Q6H PRN PRN Reason: Agitation Last Admin: 11/26/24 09:05 Dose: 2 mg Magnesium Hydroxide (Milk Of Magnesia 30 Ml Oral.Susp) 30 ml PO DAILY PRN PRN Reason: Constipation Memantine (Memantine Hcl 5 Mg Tablet) 5 mg PO BID [facility] Last Admin: 12/17/24 09:50 Dose: Not Given Metformin HCl (Metformin Hcl Er 500 Mg Tab.Er.24h) 500 mg PO BID [facility] Last Admin: 12/17/24 09:50 Dose: Not Given Mirtazapine (Mirtazapine 30 Mg Tablet) 30 mg PO BEDTIME [facility] Last Admin: 12/16/24 22:05 Dose: Not Given Nicotine (Nicotine 21 Mg Patch.Td24) 21 mg TRANSDERMA DAILY PRN PRN Reason: nicotine cravings Nicotine Polacrilex (Nicotine Polacrilex 2 Mg Gum) 4 mg BUCCAL Q2H PRN PRN Reason: Nicotine Cravings Olanzapine (Olanzapine 10 Mg Tablet) 20 mg PO BEDTIME [facility] Last Admin: 12/16/24 22:04 Dose: 20 mg Olanzapine (Olanzapine Odt 10 Mg Tab.Rapdis) 10 mg TRANSLINGU DAILY [facility] Last Admin: 12/17/24 09:29 Dose: 10 mg Olanzapine (Olanzapine 10 Mg Vial) 10 mg IM BID PRN PRN Reason: PO refusal Last Admin: 12/16/24 09:13 Dose: 10 mg Oxcarbazepine (Oxcarbazepine 300 Mg Tablet) 600 mg PO BID [facility] Last Admin: 12/17/24 09:50 Dose: Not Given Primidone (Primidone 50 Mg Tablet) 50 mg PO BID [facility] Last Admin: 12/17/24 09:50 Dose: Not Given Sertraline HCl (Sertraline Hcl 100 Mg Tablet) 100 mg PO DAILY [facility] Last Admin: 12/17/24 09:50 Dose: Not Given Tamsulosin HCl (Tamsulosin Hcl 0.4 Mg Capsule) 0.4 mg PO DAILY [facility] Last Admin: 12/17/24 09:51 Dose: Not Given Trazodone HCl (Trazodone Hcl 50 Mg Tablet) 50 mg PO BEDTIME MRX1 PRN PRN Reason: Insomnia Last Admin: 11/07/24 22:07 Dose: 50 mg Allergies Allergies Allergy/AdvReac Type Severity Reaction Status Date / Time No Known Allergies Allergy Verified 10/14/24 18:14 [No Known Allergies*] Assessment & Plan Assessment & Plan (1) Mood disorder: Status: Acute Code(s): F39 - Unspecified mood [affective] disorder (2) Autism spectrum disorder: Status: Acute Code(s): F84.0 - Autistic disorder (3) Neurocognitive disorder: Status: Acute Code(s): R41.9 - Unspecified symptoms and signs involving cognitive functions and awareness Plan Humza was admitted for safety and stabilization. His presentation is very similar to his last admission psychiatrically about a year ago and that is why his caregivers wanted to get ahead of things before he decompensated further. Current medications were reviewed and maintained. Contacts to be made with his treaters next week. 10/17: Continue current regimen and plans 10/19: Continue current tx plan and regime. 10/21: Memantine 5 mg daily- [facility]CI, memory sx Abilify 2 mg daily-augment to antidepressants currently being used. 10/22 continue current tx plan -pt confused 10/23 Continue trials, regime and plan. 10/24: Continue regime and plan of care. 10/25 Abilify increased up to 5 mg. 10/26 keep on same treatment 10/27/24 continues with many complaints, no clear insight into self- 10/28 continue same treatment 10/29 increase Namenda to 5 mg p.o. b.i.d. and change Depakote to Depakene. Depakote level on 13/02 as per blood work of yesterday 10/30/24 - dc abilify inc olanzapine = continue depakene as he did take 5 capsules this am- prn olanzapine given - this afternoon for behaviors on unit- 10/31/24 wrote for liquid depakote option if refuses capsules, also got prn olanzapine for throwing self on floor 11/01 keep same treatment 11/02 increase Zyprexa to 20 mg p.o. q.h.s. 11/03 keep same treatment. 11/04 discontinue Depakote and start Trileptal 300 mg p.o. b.i.d.. Her healthcare proxy will bring a copy of that we are going to invoke it 11/06 increase olanzapine to 20mg po qhs and 10mg po daily. 11/07 continue tx. 12/04 continue tx. 12/05: no changes 12/06 continue tx. 12/12: continue plan of care 12/13: continue tx Plan 1. Continue with olanzapine 10 mg p.o. q.a.m. and 20 mg p.o. q.h.s., he refused p.o. he received olanzapine IM. 2. Continue with Valium 5 mg p.o. t.i.d. if he refuses he will get Valium IM. 3. We will encourage compliance. The patient had been noncompliant with sertraline, he remains dysphoric. 4. The patient has a healthcare proxy who was affirmed by court, and they want us to medicate him even if the patient does not want to be compliant. 5. At this moment the patient is slightly over-sedated with EPS but we will keep the same dose of antipsychotics since his violence has improved. Reason for continued inpatient stay Substantial Risk for: inability to function, rapid decompensation and med/psych decompensation Time Spent With Patient Time: Total time managing care of this patient today __20__ minutes.
[2024-12-17] MEDS: Mirtazapine 30 MG TABLET PO (21:01)
[2024-12-17] MEDS: diazePAM 5 MG TABLET PO (21:01)
[2024-12-17] MEDS: OLANZapine 10 MG TABLET 20 MG PO (21:01)
[2024-12-18] MEDS: OLANZapine ODT 10 MG TAB.RAPDIS TRANSLINGU (07:49)
[2024-12-18] MEDS: diazePAM 5 MG TABLET PO ×3 (07:49→20:59)
[2024-12-18 08:00] VITALS: RESP 18; TEMP 36.3
--- NOTE | 2024-12-18 17:25 | HO.PSYCHPN ---
Subjective Subjective Date of Service: 12/18/24 Reason For Visit: Anxiety, mood disorder, ASD Interim History: met with patient; discussed with team; reviewed chart pt overall calm, in good behavioral control. 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 Mental Status Exam Mental Status Exam Patient Appearance: Unkempt Patient Orientation: Person Level of Consciousness: Awake Patient Behavior: Guarded and Passive Mood Description: Withdrawn and Apprehensive Affect Description: Blunted Patient Cognition Impaired: Yes Ability to Follow Directions: Fair Speech Pattern: Clear Hallucinations: None Delusions: Paranoid Ideation and Ideas of Reference Thought Process: Distracted and Slowed Thinking Thought Content: positive for [place] and positive for Poverty of Content Judgement: Poor Judgement and Insight: remain impaired Diagnostics Vital Signs (24Hr): Vital Signs - 24 hr 12/18/24 08:00 Temperature 97.4 F Respiratory Rate 18 BMI result Body Mass Index 26.5 Labs 10/28/24 09:10 11/11/24 08:31 Medications Medications Current Medications Acetaminophen (Acetaminophen 325 Mg Tablet) 650 mg PO Q6H PRN PRN Reason: Headache/Pain Mild Scale (1-3) Al Hydroxide/Mg Hydroxide (Magnesium Hydrox/Alum Hydrox 30 Ml Oral.Susp) 30 ml PO Q6H PRN PRN Reason: Heartburn/Nausea Atorvastatin Calcium (Atorvastatin Calcium 80 Mg Tablet) 80 mg PO BEDTIME [facility] Last Admin: 12/17/24 21:02 Dose: Not Given Benztropine Mesylate (Benztropine Mesylate 0.5 Mg Tablet) 1 mg PO BEDTIME [facility] Last Admin: 12/17/24 21:02 Dose: Not Given Diazepam (Diazepam 5 Mg Tablet) 5 mg PO TID [facility] Last Admin: 12/18/24 15:07 Dose: 5 mg Diazepam (Diazepam 10 Mg/2 Ml Cartridge) 5 mg IM TID PRN PRN Reason: PO refusal. HOLD FOR SEDATION Last Admin: 12/16/24 09:13 Dose: 5 mg Empagliflozin (Empagliflozin 10 Mg Tablet) 10 mg PO DAILY [facility] Last Admin: 12/18/24 11:34 Dose: Not Given Furosemide (Furosemide 20 Mg Tablet) 20 mg PO DAILY [facility]; Protocol Last Admin: 12/18/24 12:31 Dose: Not Given Hydroxyzine HCl (Hydroxyzine Hcl 25 Mg Tablet) 25 mg PO Q6H PRN PRN Reason: Anxiety Last Admin: 11/18/24 17:38 Dose: 25 mg Lisinopril (Lisinopril 20 Mg Tablet) 20 mg PO DAILY [facility]; Protocol Last Admin: 12/18/24 12:31 Dose: Not Given Magnesium Hydroxide (Milk Of Magnesia 30 Ml Oral.Susp) 30 ml PO DAILY PRN PRN Reason: Constipation Memantine (Memantine Hcl 5 Mg Tablet) 5 mg PO BID [facility] Last Admin: 12/18/24 12:32 Dose: Not Given Metformin HCl (Metformin Hcl Er 500 Mg Tab.Er.24h) 500 mg PO BID [facility] Last Admin: 12/18/24 12:32 Dose: Not Given Mirtazapine (Mirtazapine 30 Mg Tablet) 30 mg PO BEDTIME [facility] Last Admin: 12/17/24 21:01 Dose: 30 mg Nicotine (Nicotine 21 Mg Patch.Td24) 21 mg TRANSDERMA DAILY PRN PRN Reason: nicotine cravings Nicotine Polacrilex (Nicotine Polacrilex 2 Mg Gum) 4 mg BUCCAL Q2H PRN PRN Reason: Nicotine Cravings Olanzapine (Olanzapine 10 Mg Tablet) 20 mg PO BEDTIME [facility] Last Admin: 12/17/24 21:01 Dose: 20 mg Olanzapine (Olanzapine Odt 10 Mg Tab.Rapdis) 10 mg TRANSLINGU DAILY [facility] Last Admin: 12/18/24 07:49 Dose: 10 mg Olanzapine (Olanzapine 10 Mg Vial) 10 mg IM BID PRN PRN Reason: PO refusal Last Admin: 12/16/24 09:13 Dose: 10 mg Oxcarbazepine (Oxcarbazepine 300 Mg Tablet) 600 mg PO BID [facility] Last Admin: 12/18/24 12:33 Dose: Not Given Primidone (Primidone 50 Mg Tablet) 50 mg PO BID [facility] Last Admin: 12/18/24 12:33 Dose: Not Given Sertraline HCl (Sertraline Hcl 100 Mg Tablet) 100 mg PO DAILY [facility] Last Admin: 12/18/24 12:33 Dose: Not Given Tamsulosin HCl (Tamsulosin Hcl 0.4 Mg Capsule) 0.4 mg PO DAILY [facility] Last Admin: 12/18/24 12:40 Dose: Not Given Trazodone HCl (Trazodone Hcl 50 Mg Tablet) 50 mg PO BEDTIME MRX1 PRN PRN Reason: Insomnia Last Admin: 11/07/24 22:07 Dose: 50 mg Allergies Allergies Allergy/AdvReac Type Severity Reaction Status Date / Time No Known Allergies Allergy Verified 10/14/24 18:14 [No Known Allergies*] Assessment & Plan Assessment & Plan (1) Mood disorder: Status: Acute Code(s): F39 - Unspecified mood [affective] disorder (2) Autism spectrum disorder: Status: Acute Code(s): F84.0 - Autistic disorder (3) Neurocognitive disorder: Status: Acute Code(s): R41.9 - Unspecified symptoms and signs involving cognitive functions and awareness Plan Humza was admitted for safety and stabilization. His presentation is very similar to his last admission psychiatrically about a year ago and that is why his caregivers wanted to get ahead of things before he decompensated further. Current medications were reviewed and maintained. Contacts to be made with his treaters next week. 10/17: Continue current regimen and plans 10/19: Continue current tx plan and regime. 10/21: Memantine 5 mg daily- [facility], memory sx Abilify 2 mg daily-augment to antidepressants currently being used. 10/22 continue current tx plan -pt confused 10/23 Continue trials, regime and plan. 10/24: Continue regime and plan of care. 10/25 Abilify increased up to 5 mg. 10/26 keep on same treatment 10/27/24 continues with many complaints, no clear insight into self- 10/28 continue same treatment 10/29 increase Namenda to 5 mg p.o. b.i.d. and change Depakote to Depakene. Depakote level on 13/02 as per blood work of yesterday 10/30/24 - mn abitonyffrench inc olanzapine = continue depakene as he did take 5 capsules this am- prn olanzapine given - this afternoon for behaviors on unit- 10/31/24 wrote for liquid depakote option if refuses capsules, also got prn olanzapine for throwing self on floor 11/01 keep same treatment 11/02 increase Zyprexa to 20 mg p.o. q.h.s. 11/03 keep same treatment. 11/04 discontinue Depakote and start Trileptal 300 mg p.o. b.i.d.. Her healthcare proxy will bring a copy of that we are going to invoke it 11/06 increase olanzapine to 20mg po qhs and 10mg po daily. 11/07 continue tx. 12/04 continue tx. 12/05: no changes 12/06 continue tx. 12/12: continue plan of care 12/13: continue tx Plan 1. Continue with olanzapine 10 mg p.o. q.a.m. and 20 mg p.o. q.h.s., he refused p.o. he received olanzapine IM. 2. Continue with Valium 5 mg p.o. t.i.d. if he refuses he will get Valium IM. 3. We will encourage compliance. The patient had been noncompliant with sertraline, he remains dysphoric. 4. The patient has a healthcare proxy who was affirmed by court, and they want us to medicate him even if the patient does not want to be compliant. 5. At this moment the patient is slightly over-sedated with EPS but we will keep the same dose of antipsychotics since his violence has improved. Patient educated on: diagnosis Informed Consent: does not understand Reason for continued inpatient stay Substantial Risk for: inability to function Time Spent With Patient Time: Total time managing care of this patient today ____ minutes.
[2024-12-18] MEDS: Mirtazapine 30 MG TABLET PO (20:59)
[2024-12-18] MEDS: OLANZapine 10 MG TABLET 20 MG PO (20:59)
[2024-12-19] MEDS: diazePAM 5 MG TABLET PO ×3 (07:53→21:32)
[2024-12-19] MEDS: OLANZapine ODT 10 MG TAB.RAPDIS TRANSLINGU (07:53)
[2024-12-19 08:00] VITALS: BP 118/68; PULSE 78; RESP 16; TEMP 36.6; O2SAT 97
[2024-12-19 10:49] VITALS: BP 118/68
[2024-12-19 10:50] VITALS: BP 118/68
--- NOTE | 2024-12-19 21:23 | HO.PSYCHPN ---
Subjective Subjective Date of Service: 12/19/24 Reason For Visit: Anxiety, mood disorder, ASD Interim History: met with patient; discussed with team pt allowed vitals today which were WNL even though has not been taking anti-hypertensives but not enough readings to conclude he no longer needs them. Pt continues to refuse other meds not mandated. [employer] inquired but pt would not answer. Told nursing staff he does not feel he needs. Mental Status Exam Mental Status Exam Patient Appearance: Unkempt Patient Orientation: Person Level of Consciousness: Awake Patient Behavior: Guarded and Passive Mood Description: Withdrawn and Apprehensive Affect Description: Blunted Patient Cognition Impaired: Yes Ability to Follow Directions: Fair Speech Pattern: Clear Hallucinations: None Delusions: Paranoid Ideation and Ideas of Reference Thought Process: Distracted and Slowed Thinking Thought Content: positive for [place] and positive for Poverty of Content Judgement: Poor Judgement and Insight: remain impaired Diagnostics Vital Signs (24Hr): Vital Signs - 24 hr 12/19/24 08:00 12/19/24 10:49 12/19/24 10:50 Temperature 97.8 F Pulse Rate 78 Respiratory Rate 16 Blood Pressure 118/68 118/68 118/68 Pulse Oximetry 97 Oxygen Delivery Method Room Air BMI result Body Mass Index 26.5 Labs 10/28/24 09:10 11/11/24 08:31 Medications Medications Current Medications Acetaminophen (Acetaminophen 325 Mg Tablet) 650 mg PO Q6H PRN PRN Reason: Headache/Pain Mild Scale (1-3) Al Hydroxide/Mg Hydroxide (Magnesium Hydrox/Alum Hydrox 30 Ml Oral.Susp) 30 ml PO Q6H PRN PRN Reason: Heartburn/Nausea Atorvastatin Calcium (Atorvastatin Calcium 80 Mg Tablet) 80 mg PO BEDTIME [facility] Last Admin: 12/18/24 21:10 Dose: Not Given Benztropine Mesylate (Benztropine Mesylate 0.5 Mg Tablet) 1 mg PO BEDTIME [facility] Last Admin: 12/18/24 21:10 Dose: Not Given Diazepam (Diazepam 5 Mg Tablet) 5 mg PO TID [facility] Last Admin: 12/19/24 14:53 Dose: 5 mg Diazepam (Diazepam 10 Mg/2 Ml Cartridge) 5 mg IM TID PRN PRN Reason: PO refusal. HOLD FOR SEDATION Last Admin: 12/16/24 09:13 Dose: 5 mg Empagliflozin (Empagliflozin 10 Mg Tablet) 10 mg PO DAILY [facility] Last Admin: 12/19/24 10:49 Dose: Not Given Furosemide (Furosemide 20 Mg Tablet) 20 mg PO DAILY [facility]; Protocol Last Admin: 12/19/24 10:49 Dose: Not Given Hydroxyzine HCl (Hydroxyzine Hcl 25 Mg Tablet) 25 mg PO Q6H PRN PRN Reason: Anxiety Last Admin: 11/18/24 17:38 Dose: 25 mg Lisinopril (Lisinopril 20 Mg Tablet) 20 mg PO DAILY [facility]; Protocol Last Admin: 12/19/24 10:50 Dose: Not Given Magnesium Hydroxide (Milk Of Magnesia 30 Ml Oral.Susp) 30 ml PO DAILY PRN PRN Reason: Constipation Memantine (Memantine Hcl 5 Mg Tablet) 5 mg PO BID [facility] Last Admin: 12/19/24 10:50 Dose: Not Given Metformin HCl (Metformin Hcl Er 500 Mg Tab.Er.24h) 500 mg PO BID [facility] Last Admin: 12/19/24 10:50 Dose: Not Given Mirtazapine (Mirtazapine 30 Mg Tablet) 30 mg PO BEDTIME [facility] Last Admin: 12/18/24 20:59 Dose: 30 mg Nicotine (Nicotine 21 Mg Patch.Td24) 21 mg TRANSDERMA DAILY PRN PRN Reason: nicotine cravings Nicotine Polacrilex (Nicotine Polacrilex 2 Mg Gum) 4 mg BUCCAL Q2H PRN PRN Reason: Nicotine Cravings Olanzapine (Olanzapine 10 Mg Tablet) 20 mg PO BEDTIME [facility] Last Admin: 12/18/24 20:59 Dose: 20 mg Olanzapine (Olanzapine Odt 10 Mg Tab.Rapdis) 10 mg TRANSLINGU DAILY [facility] Last Admin: 12/19/24 07:53 Dose: 10 mg Olanzapine (Olanzapine 10 Mg Vial) 10 mg IM BID PRN PRN Reason: PO refusal Last Admin: 12/16/24 09:13 Dose: 10 mg Oxcarbazepine (Oxcarbazepine 300 Mg Tablet) 600 mg PO BID [facility] Last Admin: 12/19/24 10:51 Dose: Not Given Primidone (Primidone 50 Mg Tablet) 50 mg PO BID [facility] Last Admin: 12/19/24 10:51 Dose: Not Given Sertraline HCl (Sertraline Hcl 100 Mg Tablet) 100 mg PO DAILY [facility] Last Admin: 12/19/24 10:51 Dose: Not Given Tamsulosin HCl (Tamsulosin Hcl 0.4 Mg Capsule) 0.4 mg PO DAILY [facility] Last Admin: 12/19/24 10:51 Dose: Not Given Trazodone HCl (Trazodone Hcl 50 Mg Tablet) 50 mg PO BEDTIME MRX1 PRN PRN Reason: Insomnia Last Admin: 11/07/24 22:07 Dose: 50 mg Allergies Allergies Allergy/AdvReac Type Severity Reaction Status Date / Time No Known Allergies Allergy Verified 10/14/24 18:14 [No Known Allergies*] Assessment & Plan Assessment & Plan (1) Mood disorder: Status: Acute Code(s): F39 - Unspecified mood [affective] disorder (2) Autism spectrum disorder: Status: Acute Code(s): F84.0 - Autistic disorder (3) Neurocognitive disorder: Status: Acute Code(s): R41.9 - Unspecified symptoms and signs involving cognitive functions and awareness Plan Humza was admitted for safety and stabilization. His presentation is very similar to his last admission psychiatrically about a year ago and that is why his caregivers wanted to get ahead of things before he decompensated further. Current medications were reviewed and maintained. Contacts to be made with his treaters next week. 10/17: Continue current regimen and plans 10/19: Continue current tx plan and regime. 10/21: Memantine 5 mg daily- [facility], memory sx Abilify 2 mg daily-augment to antidepressants currently being used. 10/22 continue current tx plan -pt confused 10/23 Continue trials, regime and plan. 10/24: Continue regime and plan of care. 10/25 Abilify increased up to 5 mg. 10/26 keep on same treatment 10/27/24 continues with many complaints, no clear insight into self- 10/28 continue same treatment 10/29 increase Namenda to 5 mg p.o. b.i.d. and change Depakote to Depakene. 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 q.h.s. 11/03 keep same treatment. 11/04 discontinue Depakote and start Trileptal 300 mg p.o. b.i.d.. Her healthcare proxy will bring a copy of that we are going to invoke it 11/06 increase olanzapine to 20mg po qhs and 10mg po daily. 11/07 continue tx. 12/04 continue tx. 12/05: no changes 12/06 continue tx. 12/12: continue plan of care 12/13: continue tx 12/19 continue current tx plan Plan 1. Continue with olanzapine 10 mg p.o. q.a.m. and 20 mg p.o. q.h.s., he refused p.o. he received olanzapine IM. 2. Continue with Valium 5 mg p.o. t.i.d. if he refuses he will get Valium IM. 3. We will encourage compliance. The patient had been noncompliant with sertraline, he remains dysphoric. 4. The patient has a healthcare proxy who was affirmed by court, and they want us to medicate him even if the patient does not want to be compliant. 5. At this moment the patient is slightly over-sedated with EPS but we will keep the same dose of antipsychotics since his violence has improved. Patient educated on: diagnosis, medication risk/benefits and medical condition Informed Consent: does not understand Reason for continued inpatient stay Substantial Risk for: inability to function Time Spent With Patient Time: Total time managing care of this patient today ____ minutes.
[2024-12-19] MEDS: OLANZapine 10 MG TABLET 20 MG PO (21:32)
[2024-12-19] MEDS: Mirtazapine 30 MG TABLET PO (21:32)
[2024-12-20 08:00] VITALS: RESP 16
--- NOTE | 2024-12-20 09:16 | P.PNPSI_ITS ---
Subjective Subjective Date of Service: 12/20/24 Reason For Visit: Anxiety, mood disorder, ASD Subjective Notes: Conditional Voluntary Healthcare Proxy: Yes Interim History: The nursing staff reported the patient had been flat, guarded, only compliant to Zyprexa and Valium, he has refused his Zoloft and other mood stabilizers. Slept 6 hours. On interview the patient remains internally preoccupied. Mental Status Exam Mental Status Exam Patient Appearance: Appropriate Patient Orientation: Person and Situation Level of Consciousness: Awake and Appropriate Patient Behavior: Guarded and Passive Mood Description: Calm Affect Description: Blunted Patient Cognition Impaired: Yes Ability to Follow Directions: Poor Speech Pattern: Clear Hallucinations: None Delusions: Not Present Thought Process: Distracted and Slowed Thinking Thought Content: positive for [place] and positive for Poverty of Content Judgement: Poor Diagnostics Vital Signs (24Hr): Vital Signs - 24 hr 12/19/24 10:49 12/19/24 10:50 Blood Pressure 118/68 118/68 BMI result Body Mass Index 26.5 Labs 10/28/24 09:10 11/11/24 08:31 Medications Medications Current Medications Acetaminophen (Acetaminophen 325 Mg Tablet) 650 mg PO Q6H PRN PRN Reason: Headache/Pain Mild Scale (1-3) Al Hydroxide/Mg Hydroxide (Magnesium Hydrox/Alum Hydrox 30 Ml Oral.Susp) 30 ml PO Q6H PRN PRN Reason: Heartburn/Nausea Atorvastatin Calcium (Atorvastatin Calcium 80 Mg Tablet) 80 mg PO BEDTIME [facility] Last Admin: 12/19/24 21:33 Dose: Not Given Benztropine Mesylate (Benztropine Mesylate 0.5 Mg Tablet) 1 mg PO BEDTIME [facility] Last Admin: 12/19/24 21:33 Dose: Not Given Diazepam (Diazepam 5 Mg Tablet) 5 mg PO TID [facility] Last Admin: 12/19/24 21:32 Dose: 5 mg Diazepam (Diazepam 10 Mg/2 Ml Cartridge) 5 mg IM TID PRN PRN Reason: PO refusal. HOLD FOR SEDATION Last Admin: 12/16/24 09:13 Dose: 5 mg Empagliflozin (Empagliflozin 10 Mg Tablet) 10 mg PO DAILY [facility] Last Admin: 12/19/24 10:49 Dose: Not Given Furosemide (Furosemide 20 Mg Tablet) 20 mg PO DAILY [facility]; Protocol Last Admin: 12/19/24 10:49 Dose: Not Given Hydroxyzine HCl (Hydroxyzine Hcl 25 Mg Tablet) 25 mg PO Q6H PRN PRN Reason: Anxiety Last Admin: 11/18/24 17:38 Dose: 25 mg Lisinopril (Lisinopril 20 Mg Tablet) 20 mg PO DAILY [facility]; Protocol Last Admin: 12/19/24 10:50 Dose: Not Given Magnesium Hydroxide (Milk Of Magnesia 30 Ml Oral.Susp) 30 ml PO DAILY PRN PRN Reason: Constipation Memantine (Memantine Hcl 5 Mg Tablet) 5 mg PO BID [facility] Last Admin: 12/19/24 21:33 Dose: Not Given Metformin HCl (Metformin Hcl Er 500 Mg Tab.Er.24h) 500 mg PO BID [facility] Last Admin: 12/19/24 21:33 Dose: Not Given Mirtazapine (Mirtazapine 30 Mg Tablet) 30 mg PO BEDTIME [facility] Last Admin: 12/19/24 21:32 Dose: 30 mg Nicotine (Nicotine 21 Mg Patch.Td24) 21 mg TRANSDERMA DAILY PRN PRN Reason: nicotine cravings Nicotine Polacrilex (Nicotine Polacrilex 2 Mg Gum) 4 mg BUCCAL Q2H PRN PRN Reason: Nicotine Cravings Olanzapine (Olanzapine 10 Mg Tablet) 20 mg PO BEDTIME [facility] Last Admin: 12/19/24 21:32 Dose: 20 mg Olanzapine (Olanzapine Odt 10 Mg Tab.Rapdis) 10 mg TRANSLINGU DAILY [facility] Last Admin: 12/19/24 07:53 Dose: 10 mg Olanzapine (Olanzapine 10 Mg Vial) 10 mg IM BID PRN PRN Reason: PO refusal Last Admin: 12/16/24 09:13 Dose: 10 mg Oxcarbazepine (Oxcarbazepine 300 Mg Tablet) 600 mg PO BID [facility] Last Admin: 12/19/24 21:33 Dose: Not Given Primidone (Primidone 50 Mg Tablet) 50 mg PO BID [facility] Last Admin: 12/19/24 21:34 Dose: Not Given Sertraline HCl (Sertraline Hcl 100 Mg Tablet) 100 mg PO DAILY [facility] Last Admin: 12/19/24 10:51 Dose: Not Given Tamsulosin HCl (Tamsulosin Hcl 0.4 Mg Capsule) 0.4 mg PO DAILY [facility] Last Admin: 12/19/24 10:51 Dose: Not Given Trazodone HCl (Trazodone Hcl 50 Mg Tablet) 50 mg PO BEDTIME MRX1 PRN PRN Reason: Insomnia Last Admin: 11/07/24 22:07 Dose: 50 mg Allergies Allergies Allergy/AdvReac Type Severity Reaction Status Date / Time No Known Allergies Allergy Verified 10/14/24 18:14 [No Known Allergies*] Assessment & Plan Assessment & Plan (1) Mood disorder: Status: Acute Code(s): F39 - Unspecified mood [affective] disorder (2) Autism spectrum disorder: Status: Acute Code(s): F84.0 - Autistic disorder (3) Neurocognitive disorder: Status: Acute Code(s): R41.9 - Unspecified symptoms and signs involving cognitive functions and awareness Plan Humza was admitted for safety and stabilization. His presentation is very similar to his last admission psychiatrically about a year ago and that is why his caregivers wanted to get ahead of things before he decompensated further. Current medications were reviewed and maintained. Contacts to be made with his treaters next week. 10/17: Continue current regimen and plans 10/19: Continue current tx plan and regime. 10/21: Memantine 5 mg daily- [facility], memory sx Abilify 2 mg daily-augment to antidepressants currently being used. 10/22 continue current tx plan -pt confused 10/23 Continue trials, regime and plan. 10/24: Continue regime and plan of care. 10/25 Abilify increased up to 5 mg. 10/26 keep on same treatment 10/27/24 continues with many complaints, no clear insight into self- 10/28 continue same treatment 10/29 increase Namenda to 5 mg p.o. b.i.d. and change Depakote to Depakene. Depakote level on 13/02 as per blood work of yesterday 10/30/24 - [facility] olanzapine = continue depakene as he did take 5 capsules this am- prn olanzapine given - this afternoon for behaviors on unit- 10/31/24 wrote for liquid depakote option if refuses capsules, also got prn olanzapine for throwing self on floor 11/01 keep same treatment 11/02 increase Zyprexa to 20 mg p.o. q.h.s. 11/03 keep same treatment. 11/04 discontinue Depakote and start Trileptal 300 mg p.o. b.i.d.. Her healthcare proxy will bring a copy of that we are going to invoke it 11/06 increase olanzapine to 20mg po qhs and 10mg po daily. 11/07 continue tx. 12/04 continue tx. 12/05: no changes 12/06 continue tx. 12/12: continue plan of care 12/13: continue tx 12/19 continue current tx plan Plan 1. Continue with olanzapine 10 mg p.o. q.a.m. and 20 mg p.o. q.h.s., he refused p.o. he received olanzapine IM. 2. Continue with Valium 5 mg p.o. t.i.d. if he refuses he will get Valium IM. 3. We will encourage compliance. The patient had been noncompliant with sertraline, he remains dysphoric. 4. The patient has a healthcare proxy who was affirmed by court, and they want us to medicate him even if the patient does not want to be compliant. 5. At this moment the patient is slightly over-sedated with EPS but we will keep the same dose of antipsychotics since his violence has improved. Reason for continued inpatient stay Substantial Risk for: inability to function, rapid decompensation and med/psych decompensation Time Spent With Patient Time: Total time managing care of this patient today __20__ minutes.
[2024-12-20] MEDS: diazePAM 10 MG/2 ML CARTRIDGE 5 MG IM ×2 (10:36→21:43)
[2024-12-20] MEDS: OLANZapine 10 MG VIAL IM ×2 (10:36→21:43)
[2024-12-20] MEDS: diazePAM 5 MG TABLET PO (15:02)
[2024-12-21 09:31] VITALS: RESP 18
--- NOTE | 2024-12-21 09:56 | HO.PSYCHPN ---
Subjective Subjective Date of Service: 12/21/24 Reason For Visit: Anxiety, mood disorder, ASD Subjective Notes: Conditional Voluntary Interim History: The nursing staff reported the patient refused all his HS meds and needed backup IM. He file outburst yesterday in the afternoon. Slept well. On interview the patient remains internally preoccupied. Mental Status Exam Mental Status Exam Patient Appearance: Unkempt Patient Orientation: Person Level of Consciousness: Awake Patient Behavior: Guarded and Passive Mood Description: Withdrawn Affect Description: Blunted Patient Cognition Impaired: Yes Ability to Follow Directions: Good Speech Pattern: Clear Hallucinations: None Delusions: Not Present Thought Process: Distracted and Slowed Thinking Thought Content: positive for [place] and positive for Poverty of Content Judgement: Poor Diagnostics Vital Signs (24Hr): Vital Signs - 24 hr 12/21/24 09:31 Respiratory Rate 18 BMI result Body Mass Index 26.5 Labs 10/28/24 09:10 11/11/24 08:31 Medications Medications Current Medications Acetaminophen (Acetaminophen 325 Mg Tablet) 650 mg PO Q6H PRN PRN Reason: Headache/Pain Mild Scale (1-3) Al Hydroxide/Mg Hydroxide (Magnesium Hydrox/Alum Hydrox 30 Ml Oral.Susp) 30 ml PO Q6H PRN PRN Reason: Heartburn/Nausea Atorvastatin Calcium (Atorvastatin Calcium 80 Mg Tablet) 80 mg PO BEDTIME [facility] Last Admin: 12/20/24 23:00 Dose: Not Given Benztropine Mesylate (Benztropine Mesylate 0.5 Mg Tablet) 1 mg PO BEDTIME [facility] Last Admin: 12/20/24 23:00 Dose: Not Given Diazepam (Diazepam 5 Mg Tablet) 5 mg PO TID [facility] Last Admin: 12/20/24 23:00 Dose: Not Given Diazepam (Diazepam 10 Mg/2 Ml Cartridge) 5 mg IM TID PRN PRN Reason: PO refusal. HOLD FOR SEDATION Last Admin: 12/20/24 21:43 Dose: 5 mg Empagliflozin (Empagliflozin 10 Mg Tablet) 10 mg PO DAILY [facility] Last Admin: 12/20/24 10:37 Dose: Not Given Furosemide (Furosemide 20 Mg Tablet) 20 mg PO DAILY [facility]; Protocol Last Admin: 12/20/24 10:37 Dose: Not Given Hydroxyzine HCl (Hydroxyzine Hcl 25 Mg Tablet) 25 mg PO Q6H PRN PRN Reason: Anxiety Last Admin: 11/18/24 17:38 Dose: 25 mg Lisinopril (Lisinopril 20 Mg Tablet) 20 mg PO DAILY [facility]; Protocol Last Admin: 12/20/24 10:38 Dose: Not Given Magnesium Hydroxide (Milk Of Magnesia 30 Ml Oral.Susp) 30 ml PO DAILY PRN PRN Reason: Constipation Memantine (Memantine Hcl 5 Mg Tablet) 5 mg PO BID [facility] [place] Last Admin: 12/20/24 23:00 Dose: Not Given Metformin HCl (Metformin Hcl Er 500 Mg Tab.Er.24h) 500 mg PO BID [facility] [place] Last Admin: 12/20/24 23:00 Dose: Not Given Mirtazapine (Mirtazapine 30 Mg Tablet) 30 mg PO BEDTIME [facility] [place] Last Admin: 12/20/24 23:01 Dose: Not Given Nicotine (Nicotine 21 Mg Patch.Td24) 21 mg TRANSDERMA DAILY PRN PRN Reason: nicotine cravings Nicotine Polacrilex (Nicotine Polacrilex 2 Mg Gum) 4 mg BUCCAL Q2H PRN PRN Reason: Nicotine Cravings Olanzapine (Olanzapine 10 Mg Tablet) 20 mg PO BEDTIME [facility] [place] Last Admin: 12/20/24 23:01 Dose: Not Given Olanzapine (Olanzapine Odt 10 Mg Tab.Rapdis) 10 mg TRANSLINGU DAILY [facility] [place] Last Admin: 12/20/24 10:38 Dose: Not Given Olanzapine (Olanzapine 10 Mg Vial) 10 mg IM BID PRN PRN Reason: PO refusal Last Admin: 12/20/24 21:43 Dose: 10 mg Oxcarbazepine (Oxcarbazepine 300 Mg Tablet) 600 mg PO BID [facility] [place] Last Admin: 12/20/24 23:01 Dose: Not Given Primidone (Primidone 50 Mg Tablet) 50 mg PO BID [facility] [place] Last Admin: 12/20/24 23:01 Dose: Not Given Sertraline HCl (Sertraline Hcl 100 Mg Tablet) 100 mg PO DAILY [facility] [place] Last Admin: 12/20/24 10:38 Dose: Not Given Tamsulosin HCl (Tamsulosin Hcl 0.4 Mg Capsule) 0.4 mg PO DAILY [facility] [place] Last Admin: 12/20/24 10:38 Dose: Not Given Trazodone HCl (Trazodone Hcl 50 Mg Tablet) 50 mg PO BEDTIME MRX1 PRN PRN Reason: Insomnia Last Admin: 11/07/24 22:07 Dose: 50 mg Allergies Allergies Allergy/AdvReac Type Severity Reaction Status Date / Time No Known Allergies Allergy Verified 10/14/24 18:14 [No Known Allergies*] Assessment & Plan Assessment & Plan (1) Mood disorder: Status: Acute Code(s): F39 - Unspecified mood [affective] disorder (2) Autism spectrum disorder: Status: Acute Code(s): F84.0 - Autistic disorder (3) Neurocognitive disorder: Status: Acute Code(s): R41.9 - Unspecified symptoms and signs involving cognitive functions and awareness Plan Humza was admitted for safety and stabilization. His presentation is very similar to his last admission psychiatrically about a year ago and that is why his caregivers wanted to get ahead of things before he decompensated further. Current medications were reviewed and maintained. Contacts to be made with his treaters next week. 10/17: Continue current regimen and plans 10/19: Continue current tx plan and regime. 10/21: Memantine 5 mg daily- [facility], memory sx Abilify 2 mg daily-augment to antidepressants currently being used. 10/22 continue current tx plan -pt confused 10/23 Continue trials, regime and plan. 10/24: Continue regime and plan of care. 10/25 Abilify increased up to 5 mg. 10/26 keep on same treatment 10/27/24 continues with many complaints, no clear insight into self- 10/28 continue same treatment 10/29 increase Namenda to 5 mg p.o. b.i.d. and change Depakote to Depakene. Depakote level on 13/02 as per blood work of yesterday 10/30/24 - [facility] [employer] olanzapine = continue depakene as he did take 5 capsules this am- prn olanzapine given - this afternoon for behaviors on unit- 10/31/24 wrote for liquid depakote option if refuses capsules, also got prn olanzapine for throwing self on floor 11/01 keep same treatment 11/02 increase Zyprexa to 20 mg p.o. q.h.s. 11/03 keep same treatment. 11/04 discontinue Depakote and start Trileptal 300 mg p.o. b.i.d.. Her healthcare proxy will bring a copy of that we are going to invoke it 11/06 increase olanzapine to 20mg po qhs and 10mg po daily. 11/07 continue tx. 12/04 continue tx. 12/05: no changes 12/06 continue tx. 12/12: continue plan of care 12/13: continue tx 12/19 continue current tx plan Plan 1. Continue with olanzapine 10 mg p.o. q.a.m. and 20 mg p.o. q.h.s., he refused p.o. he received olanzapine IM. 2. Continue with Valium 5 mg p.o. t.i.d. if he refuses he will get Valium IM. 3. We will encourage compliance. The patient had been noncompliant with sertraline, he remains dysphoric. 4. The patient has a healthcare proxy who was affirmed by court, and they want us to medicate him even if the patient does not want to be compliant. 5. At this moment the patient is slightly over-sedated with EPS but we will keep the same dose of antipsychotics since his violence has improved. Reason for continued inpatient stay Substantial Risk for: inability to function, rapid decompensation and med/psych decompensation Time Spent With Patient Time: Total time managing care of this patient today __20__ minutes.
[2024-12-21] MEDS: OLANZapine 10 MG VIAL IM (10:22)
[2024-12-21] MEDS: diazePAM 10 MG/2 ML CARTRIDGE 5 MG IM (10:22)
[2024-12-21] MEDS: diazePAM 5 MG TABLET PO ×2 (16:19→21:30)
[2024-12-21] MEDS: Mirtazapine 30 MG TABLET PO (21:30)
[2024-12-21] MEDS: OLANZapine 10 MG TABLET 20 MG PO (21:30)
[2024-12-22] MEDS: diazePAM 5 MG TABLET PO ×3 (08:57→22:23)
[2024-12-22] MEDS: OLANZapine ODT 10 MG TAB.RAPDIS TRANSLINGU (08:57)
--- NOTE | 2024-12-22 09:47 | P.PNPSI_ITS ---
Subjective Subjective Date of Service: 12/22/24 Reason For Visit: Anxiety, mood disorder, ASD Subjective Notes: Conditional Voluntary Healthcare Proxy: Yes Interim History: The nursing staff reported the patient refused his medications he received IM backup. He had been quiet no behavior issues slept 8 hours. On interview the patient remains most of the time isolative, refusing p.o. psychotropics. He was in the common areas, internally preoccupied. Mental Status Exam Mental Status Exam Patient Appearance: Unkempt Patient Orientation: Person and Situation Level of Consciousness: Awake and Appropriate Patient Behavior: Guarded and Passive Mood Description: Withdrawn Affect Description: Blunted Patient Cognition Impaired: Yes Ability to Follow Directions: Poor Speech Pattern: Impoverished and Monotone Hallucinations: None Delusions: Ideas of Reference Thought Process: Distracted and Slowed Thinking Thought Content: positive for [place] and positive for Poverty of Content Judgement: Poor Diagnostics Vital Signs (24Hr): BMI result Body Mass Index 26.5 Labs 10/28/24 09:10 11/11/24 08:31 Medications Medications Current Medications Acetaminophen (Acetaminophen 325 Mg Tablet) 650 mg PO Q6H PRN PRN Reason: Headache/Pain Mild Scale (1-3) Al Hydroxide/Mg Hydroxide (Magnesium Hydrox/Alum Hydrox 30 Ml Oral.Susp) 30 ml PO Q6H PRN PRN Reason: Heartburn/Nausea Atorvastatin Calcium (Atorvastatin Calcium 80 Mg Tablet) 80 mg PO BEDTIME [facility] Last Admin: 12/21/24 21:32 Dose: Not Given Benztropine Mesylate (Benztropine Mesylate 0.5 Mg Tablet) 1 mg PO BEDTIME [facility] Last Admin: 12/21/24 21:32 Dose: Not Given Diazepam (Diazepam 5 Mg Tablet) 5 mg PO TID [facility] Last Admin: 12/22/24 08:57 Dose: 5 mg Diazepam (Diazepam 10 Mg/2 Ml Cartridge) 5 mg IM TID PRN PRN Reason: PO refusal. HOLD FOR SEDATION Last Admin: 12/21/24 10:22 Dose: 5 mg Empagliflozin (Empagliflozin 10 Mg Tablet) 10 mg PO DAILY [facility] Last Admin: 12/22/24 09:20 Dose: Not Given Furosemide (Furosemide 20 Mg Tablet) 20 mg PO DAILY [facility]; Protocol Last Admin: 12/22/24 09:20 Dose: Not Given Hydroxyzine HCl (Hydroxyzine Hcl 25 Mg Tablet) 25 mg PO Q6H PRN PRN Reason: Anxiety Last Admin: 11/18/24 17:38 Dose: 25 mg Lisinopril (Lisinopril 20 Mg Tablet) 20 mg PO DAILY [facility]; Protocol Last Admin: 12/22/24 09:20 Dose: Not Given Magnesium Hydroxide (Milk Of Magnesia 30 Ml Oral.Susp) 30 ml PO DAILY PRN PRN Reason: Constipation Memantine (Memantine Hcl 5 Mg Tablet) 5 mg PO BID [facility] Last Admin: 12/22/24 09:20 Dose: Not Given Metformin HCl (Metformin Hcl Er 500 Mg Tab.Er.24h) 500 mg PO BID [facility] Last Admin: 12/22/24 09:20 Dose: Not Given Mirtazapine (Mirtazapine 30 Mg Tablet) 30 mg PO BEDTIME [facility] Last Admin: 12/21/24 21:30 Dose: 30 mg Nicotine (Nicotine 21 Mg Patch.Td24) 21 mg TRANSDERMA DAILY PRN PRN Reason: nicotine cravings Nicotine Polacrilex (Nicotine Polacrilex 2 Mg Gum) 4 mg BUCCAL Q2H PRN PRN Reason: Nicotine Cravings Olanzapine (Olanzapine 10 Mg Tablet) 20 mg PO BEDTIME [facility] Last Admin: 12/21/24 21:30 Dose: 20 mg Olanzapine (Olanzapine Odt 10 Mg Tab.Rapdis) 10 mg TRANSLINGU DAILY [facility] Last Admin: 12/22/24 08:57 Dose: 10 mg Olanzapine (Olanzapine 10 Mg Vial) 10 mg IM BID PRN PRN Reason: PO refusal Last Admin: 12/21/24 10:22 Dose: 10 mg Oxcarbazepine (Oxcarbazepine 300 Mg Tablet) 600 mg PO BID [facility] Last Admin: 12/22/24 09:21 Dose: Not Given Primidone (Primidone 50 Mg Tablet) 50 mg PO BID [facility] Last Admin: 12/22/24 09:21 Dose: Not Given Sertraline HCl (Sertraline Hcl 100 Mg Tablet) 100 mg PO DAILY [facility] Last Admin: 12/22/24 09:21 Dose: Not Given Tamsulosin HCl (Tamsulosin Hcl 0.4 Mg Capsule) 0.4 mg PO DAILY [facility] Last Admin: 12/21/24 10:24 Dose: Not Given Trazodone HCl (Trazodone Hcl 50 Mg Tablet) 50 mg PO BEDTIME MRX1 PRN PRN Reason: Insomnia Last Admin: 11/07/24 22:07 Dose: 50 mg Allergies Allergies Allergy/AdvReac Type Severity Reaction Status Date / Time No Known Allergies Allergy Verified 10/14/24 18:14 [No Known Allergies*] Assessment & Plan Assessment & Plan (1) Mood disorder: Status: Acute Code(s): F39 - Unspecified mood [affective] disorder (2) Autism spectrum disorder: Status: Acute Code(s): F84.0 - Autistic disorder (3) Neurocognitive disorder: Status: Acute Code(s): R41.9 - Unspecified symptoms and signs involving cognitive functions and awareness Plan Humza was admitted for safety and stabilization. His presentation is very similar to his last admission psychiatrically about a year ago and that is why his caregivers wanted to get ahead of things before he decompensated further. Current medications were reviewed and maintained. Contacts to be made with his treaters next week. 10/17: Continue current regimen and plans 10/19: Continue current tx plan and regime. 10/21: Memantine 5 mg daily- [facility], memory sx Abilify 2 mg daily-augment to antidepressants currently being used. 10/22 continue current tx plan -pt confused 10/23 Continue trials, regime and plan. 10/24: Continue regime and plan of care. 10/25 Abilify increased up to 5 mg. 10/26 keep on same treatment 10/27/24 continues with many complaints, no clear insight into self- 10/28 continue same treatment 10/29 increase Namenda to 5 mg p.o. b.i.d. and change Depakote to Depakene. Depakote level on 13/02 as per blood work of yesterday 10/30/24 - [facility] ol[facility] = continue depakene as he did take 5 capsules this am- prn olanzapine given - this afternoon for behaviors on unit- 10/31/24 wrote for liquid depakote option if refuses capsules, also got prn olanzapine for throwing self on floor 11/01 keep same treatment 11/02 increase Zyprexa to 20 mg p.o. q.h.s. 11/03 keep same treatment. 11/04 discontinue Depakote and start Trileptal 300 mg p.o. b.i.d.. Her healthcare proxy will bring a copy of that we are going to invoke it 1/11 increase olanzapine to 20mg po qhs and 10mg po daily. 11/07 continue tx. 12/04 continue tx. 12/05: no changes 12/06 continue tx. 12/12: continue plan of care 12/13: continue tx 12/19 continue current tx plan Plan 1. Continue with olanzapine 10 mg p.o. q.a.m. and 20 mg p.o. q.h.s., he refused p.o. he received olanzapine IM. 2. Continue with Valium 5 mg p.o. t.i.d. if he refuses he will get Valium IM. 3. We will encourage compliance. The patient had been noncompliant with sertraline, he remains dysphoric. 4. The patient has a healthcare proxy who was affirmed by court, and they want us to medicate him even if the patient does not want to be compliant. 5. At this moment the patient is slightly over-sedated with EPS but we will keep the same dose of antipsychotics since his violence has improved. Reason for continued inpatient stay Substantial Risk for: inability to function, rapid decompensation and med/psych decompensation Time Spent With Patient Time: Total time managing care of this patient today __20__ minutes.
[2024-12-22 20:00] VITALS: BP 151/89; PULSE 79; RESP 18; TEMP 36.8; O2SAT 97
[2024-12-22] MEDS: OLANZapine 10 MG TABLET 20 MG PO (22:23)
[2024-12-22] MEDS: Mirtazapine 30 MG TABLET PO (22:23)
[2024-12-23 08:00] VITALS: RESP 16
[2024-12-23] MEDS: diazePAM 5 MG TABLET PO ×3 (08:58→20:34)
[2024-12-23] MEDS: OLANZapine ODT 10 MG TAB.RAPDIS TRANSLINGU (08:58)
--- NOTE | 2024-12-23 10:28 | P.PNPSI_ITS ---
Subjective Subjective Date of Service: 12/23/24 Reason For Visit: Anxiety, mood disorder, ASD Subjective Notes: Conditional Voluntary Interim History: The nursing staff reported the patient slept 6 hours, he took some of his medications p.o.. Interview the patient denies new symptoms he was in the common areas, internally preoccupied grossly psychotic Mental Status Exam Mental Status Exam Patient Appearance: Appropriate and Unkempt Patient Orientation: Person Level of Consciousness: Awake and Appropriate Patient Behavior: Guarded and Passive Mood Description: Withdrawn Affect Description: Constricted Patient Cognition Impaired: Yes Ability to Follow Directions: Good Speech Pattern: Clear Hallucinations: None Delusions: Paranoid Ideation and Ideas of Reference Thought Process: Illogical and Slowed Thinking Thought Content: positive for Jeff and positive for Poverty of Content Judgement: Poor Diagnostics Vital Signs (24Hr): Vital Signs - 24 hr 12/22/24 20:00 12/23/24 08:00 Temperature 98.3 F Pulse Rate 79 Respiratory Rate 18 16 Blood Pressure 151/89 H Pulse Oximetry 97 Oxygen Delivery Method Room Air BMI result Body Mass Index 26.5 Labs 10/28/24 09:10 11/11/24 08:31 Medications Medications Current Medications Acetaminophen (Acetaminophen 325 Mg Tablet) 650 mg PO Q6H PRN PRN Reason: Headache/Pain Mild Scale (1-3) Al Hydroxide/Mg Hydroxide (Magnesium Hydrox/Alum Hydrox 30 Ml Oral.Susp) 30 ml PO Q6H PRN PRN Reason: Heartburn/Nausea Atorvastatin Calcium (Atorvastatin Calcium 80 Mg Tablet) 80 mg PO BEDTIME [facility] Last Admin: 12/22/24 22:24 Dose: Not Given Benztropine Mesylate (Benztropine Mesylate 0.5 Mg Tablet) 1 mg PO BEDTIME [facility] Last Admin: 12/22/24 22:24 Dose: Not Given Diazepam (Diazepam 5 Mg Tablet) 5 mg PO TID [facility] Last Admin: 12/23/24 08:58 Dose: 5 mg Diazepam (Diazepam 10 Mg/2 Ml Cartridge) 5 mg IM TID PRN PRN Reason: PO refusal. HOLD FOR SEDATION Last Admin: 12/21/24 10:22 Dose: 5 mg Empagliflozin (Empagliflozin 10 Mg Tablet) 10 mg PO DAILY [facility] Last Admin: 12/23/24 09:00 Dose: Not Given Furosemide (Furosemide 20 Mg Tablet) 20 mg PO DAILY [facility]; Protocol Last Admin: 12/23/24 09:00 Dose: Not Given Hydroxyzine HCl (Hydroxyzine Hcl 25 Mg Tablet) 25 mg PO Q6H PRN PRN Reason: Anxiety Last Admin: 11/18/24 17:38 Dose: 25 mg Lisinopril (Lisinopril 20 Mg Tablet) 20 mg PO DAILY [facility]; Protocol Last Admin: 12/23/24 09:00 Dose: Not Given Magnesium Hydroxide (Milk Of Magnesia 30 Ml Oral.Susp) 30 ml PO DAILY PRN PRN Reason: Constipation Memantine (Memantine Hcl 5 Mg Tablet) 5 mg PO BID [facility] Last Admin: 12/23/24 09:00 Dose: Not Given Metformin HCl (Metformin Hcl Er 500 Mg Tab.Er.24h) 500 mg PO BID [facility] Last Admin: 12/23/24 09:00 Dose: Not Given Mirtazapine (Mirtazapine 30 Mg Tablet) 30 mg PO BEDTIME [facility] Last Admin: 12/22/24 22:23 Dose: 30 mg Nicotine (Nicotine 21 Mg Patch.Td24) 21 mg TRANSDERMA DAILY PRN PRN Reason: nicotine cravings Nicotine Polacrilex (Nicotine Polacrilex 2 Mg Gum) 4 mg BUCCAL Q2H PRN PRN Reason: Nicotine Cravings Olanzapine (Olanzapine 10 Mg Tablet) 20 mg PO BEDTIME [facility] Last Admin: 12/22/24 22:23 Dose: 20 mg Olanzapine (Olanzapine Odt 10 Mg Tab.Rapdis) 10 mg TRANSLINGU DAILY [facility] Last Admin: 12/23/24 08:58 Dose: 10 mg Olanzapine (Olanzapine 10 Mg Vial) 10 mg IM BID PRN PRN Reason: PO refusal Last Admin: 12/21/24 10:22 Dose: 10 mg Oxcarbazepine (Oxcarbazepine 300 Mg Tablet) 600 mg PO BID [facility] Last Admin: 12/23/24 09:00 Dose: Not Given Primidone (Primidone 50 Mg Tablet) 50 mg PO BID [facility] Last Admin: 12/23/24 09:01 Dose: Not Given Sertraline HCl (Sertraline Hcl 100 Mg Tablet) 100 mg PO DAILY [facility] Last Admin: 12/23/24 09:01 Dose: Not Given Tamsulosin HCl (Tamsulosin Hcl 0.4 Mg Capsule) 0.4 mg PO DAILY [facility] Last Admin: 12/23/24 09:01 Dose: Not Given Trazodone HCl (Trazodone Hcl 50 Mg Tablet) 50 mg PO BEDTIME MRX1 PRN PRN Reason: Insomnia Last Admin: 11/07/24 22:07 Dose: 50 mg Allergies Allergies Allergy/AdvReac Type Severity Reaction Status Date / Time No Known Allergies Allergy Verified 10/14/24 18:14 [No Known Allergies*] Assessment & Plan Assessment & Plan (1) Mood disorder: Status: Acute Code(s): F39 - Unspecified mood [affective] disorder (2) Autism spectrum disorder: Status: Acute Code(s): F84.0 - Autistic disorder (3) Neurocognitive disorder: Status: Acute Code(s): R41.9 - Unspecified symptoms and signs involving cognitive functions and awareness Plan Humza was admitted for safety and stabilization. His presentation is very similar to his last admission psychiatrically about a year ago and that is why his caregivers wanted to get ahead of things before he decompensated further. Current medications were reviewed and maintained. Contacts to be made with his treaters next week. 10/17: Continue current regimen and plans 10/19: Continue current tx plan and regime. 10/21: Memantine 5 mg daily- [facility], memory sx Abilify 2 mg daily-augment to antidepressants currently being used. 10/22 continue current tx plan -pt confused 10/23 Continue trials, regime and plan. 10/24: Continue regime and plan of care. 10/25 Abilify increased up to 5 mg. 10/26 keep on same treatment 10/27/24 continues with many complaints, no clear insight into self- 10/28 continue same treatment 10/29 increase Namenda to 5 mg p.o. b.i.d. and change Depakote to Depakene. Depakote level on 13/02 as per blood work of yesterday 10/30/24 - nd abilify inc olanzapine = continue depakene as he did take 5 capsules this am- prn olanzapine given - this afternoon for behaviors on unit- 10/31/24 wrote for liquid depakote option if refuses capsules, also got prn olanzapine for throwing self on floor 11/01 keep same treatment 11/02 increase Zyprexa to 20 mg p.o. q.h.s. 11/03 keep same treatment. 11/04 discontinue Depakote and start Trileptal 300 mg p.o. b.i.d.. Her healthcare proxy will bring a copy of that we are going to invoke it 11/06 increase olanzapine to 20mg po qhs and 10mg po daily. 11/07 continue tx. 12/04 continue tx. 12/05: no changes 12/06 continue tx. 12/12: continue plan of care 12/13: continue tx 12/19 continue current tx plan Plan 1. Continue with olanzapine 10 mg p.o. q.a.m. and 20 mg p.o. q.h.s., he refused p.o. he received olanzapine IM. 2. Continue with Valium 5 mg p.o. t.i.d. if he refuses he will get Valium IM. 3. We will encourage compliance. The patient had been noncompliant with sertraline, he remains dysphoric. 4. The patient has a healthcare proxy who was affirmed by court, and they want us to medicate him even if the patient does not want to be compliant. 5. At this moment the patient is slightly over-sedated with EPS but we will keep the same dose of antipsychotics since his violence has improved. Reason for continued inpatient stay Substantial Risk for: inability to function, rapid decompensation and med/psych decompensation Time Spent With Patient Time: Total time managing care of this patient today __20__ minutes.
[2024-12-23 20:00] VITALS: RESP 16; TEMP 36.7
[2024-12-23] MEDS: Mirtazapine 30 MG TABLET PO (20:35)
[2024-12-23] MEDS: OLANZapine 10 MG TABLET 20 MG PO (20:35)
[2024-12-24] MEDS: diazePAM 5 MG TABLET PO ×3 (08:19→20:58)
[2024-12-24] MEDS: OLANZapine ODT 10 MG TAB.RAPDIS TRANSLINGU (08:19)
[2024-12-24 10:50] VITALS: BMI 26.9
--- NOTE | 2024-12-24 13:47 | HO.PSYCHPN ---
Subjective Subjective Date of Service: 12/24/24 Reason For Visit: Anxiety, mood disorder, ASD Subjective Notes: Conditional Voluntary Interim History: The nursing staff reported the patient took Valium and Zyprexa only, he has not taking any mood stabilizer or antidepressant. On interview the patient was in the common area slightly sedated denies new symptoms. Still grossly psychotic. Mental Status Exam Mental Status Exam Patient Appearance: Unkempt Patient Orientation: Person Level of Consciousness: Awake and Appropriate Patient Behavior: Guarded and Passive Mood Description: Withdrawn Affect Description: Constricted Patient Cognition Impaired: Yes Ability to Follow Directions: Fair Speech Pattern: Impoverished Hallucinations: None Delusions: Paranoid Ideation and Ideas of Reference Thought Process: Distracted and Slowed Thinking Thought Content: positive for Rickreall and positive for Poverty of Content Judgement: Poor Diagnostics Vital Signs (24Hr): Vital Signs - 24 hr 12/23/24 20:00 Temperature 98.1 F Respiratory Rate 16 BMI result Body Mass Index 26.9 Labs 10/28/24 09:10 11/11/24 08:31 Medications Medications Current Medications Acetaminophen (Acetaminophen 325 Mg Tablet) 650 mg PO Q6H PRN PRN Reason: Headache/Pain Mild Scale (1-3) Al Hydroxide/Mg Hydroxide (Magnesium Hydrox/Alum Hydrox 30 Ml Oral.Susp) 30 ml PO Q6H PRN PRN Reason: Heartburn/Nausea Atorvastatin Calcium (Atorvastatin Calcium 80 Mg Tablet) 80 mg PO BEDTIME [facility] Last Admin: 12/23/24 21:33 Dose: Not Given Benztropine Mesylate (Benztropine Mesylate 0.5 Mg Tablet) 1 mg PO BEDTIME [facility] Last Admin: 12/23/24 21:33 Dose: Not Given Diazepam (Diazepam 5 Mg Tablet) 5 mg PO TID [facility] Last Admin: 12/24/24 08:19 Dose: 5 mg Diazepam (Diazepam 10 Mg/2 Ml Cartridge) 5 mg IM TID PRN PRN Reason: PO refusal. HOLD FOR SEDATION Last Admin: 12/21/24 10:22 Dose: 5 mg Empagliflozin (Empagliflozin 10 Mg Tablet) 10 mg PO DAILY [facility] Last Admin: 12/24/24 08:19 Dose: Not Given Furosemide (Furosemide 20 Mg Tablet) 20 mg PO DAILY [facility]; Protocol Last Admin: 12/24/24 08:19 Dose: Not Given Hydroxyzine HCl (Hydroxyzine Hcl 25 Mg Tablet) 25 mg PO Q6H PRN PRN Reason: Anxiety Last Admin: 11/18/24 17:38 Dose: 25 mg Lisinopril (Lisinopril 20 Mg Tablet) 20 mg PO DAILY [facility]; Protocol Last Admin: 12/24/24 08:22 Dose: Not Given Magnesium Hydroxide (Milk Of Magnesia 30 Ml Oral.Susp) 30 ml PO DAILY PRN PRN Reason: Constipation Memantine (Memantine Hcl 5 Mg Tablet) 5 mg PO BID [facility] Last Admin: 12/24/24 08:22 Dose: Not Given Metformin HCl (Metformin Hcl Er 500 Mg Tab.Er.24h) 500 mg PO BID [facility] Last Admin: 12/24/24 08:22 Dose: Not Given Mirtazapine (Mirtazapine 30 Mg Tablet) 30 mg PO BEDTIME [facility] Last Admin: 12/23/24 20:35 Dose: 30 mg Nicotine (Nicotine 21 Mg Patch.Td24) 21 mg TRANSDERMA DAILY PRN PRN Reason: nicotine cravings Nicotine Polacrilex (Nicotine Polacrilex 2 Mg Gum) 4 mg BUCCAL Q2H PRN PRN Reason: Nicotine Cravings Olanzapine (Olanzapine 10 Mg Tablet) 20 mg PO BEDTIME [facility] Last Admin: 12/23/24 20:35 Dose: 20 mg Olanzapine (Olanzapine Odt 10 Mg Tab.Rapdis) 10 mg TRANSLINGU DAILY [facility] Last Admin: 12/24/24 08:19 Dose: 10 mg Olanzapine (Olanzapine 10 Mg Vial) 10 mg IM BID PRN PRN Reason: PO refusal Last Admin: 12/21/24 10:22 Dose: 10 mg Oxcarbazepine (Oxcarbazepine 300 Mg Tablet) 600 mg PO BID [facility] Last Admin: 12/24/24 08:22 Dose: Not Given Primidone (Primidone 50 Mg Tablet) 50 mg PO BID [facility] Last Admin: 12/24/24 08:22 Dose: Not Given Sertraline HCl (Sertraline Hcl 100 Mg Tablet) 100 mg PO BEDTIME [facility] Tamsulosin HCl (Tamsulosin Hcl 0.4 Mg Capsule) 0.4 mg PO DAILY [facility] Last Admin: 12/24/24 08:23 Dose: Not Given Trazodone HCl (Trazodone Hcl 50 Mg Tablet) 50 mg PO BEDTIME MRX1 PRN PRN Reason: Insomnia Last Admin: 11/07/24 22:07 Dose: 50 mg Allergies Allergies Allergy/AdvReac Type Severity Reaction Status Date / Time No Known Allergies Allergy Verified 10/14/24 18:14 [No Known Allergies*] Assessment & Plan Assessment & Plan (1) Mood disorder: Status: Acute Code(s): F39 - Unspecified mood [affective] disorder (2) Autism spectrum disorder: Status: Acute Code(s): F84.0 - Autistic disorder (3) Neurocognitive disorder: Status: Acute Code(s): R41.9 - Unspecified symptoms and signs involving cognitive functions and awareness Plan Humza was admitted for safety and stabilization. His presentation is very similar to his last admission psychiatrically about a year ago and that is why his caregivers wanted to get ahead of things before he decompensated further. Current medications were reviewed and maintained. Contacts to be made with his treaters next week. 10/17: Continue current regimen and plans 10/19: Continue current tx plan and regime. 10/21: Memantine 5 mg daily- [facility], memory sx Abilify 2 mg daily-augment to antidepressants currently being used. 10/22 continue current tx plan -pt confused 10/23 Continue trials, regime and plan. 10/24: Continue regime and plan of care. 10/25 Abilify increased up to 5 mg. 10/26 keep on same treatment 10/27/24 continues with many complaints, no clear insight into self- 10/28 continue same treatment 10/29 increase Namenda to 5 mg p.o. b.i.d. and change Depakote to Depakene. Depakote level on 13/02 as per blood work of yesterday 10/30/24 - [facility] olanzapine = continue depakene as he did take 5 capsules this am- prn olanzapine given - this afternoon for behaviors on unit- 10/31/24 wrote for liquid depakote option if refuses capsules, also got prn olanzapine for throwing self on floor 11/01 keep same treatment 11/02 increase Zyprexa to 20 mg p.o. q.h.s. 11/03 keep same treatment. 11/04 discontinue Depakote and start Trileptal 300 mg p.o. b.i.d.. Her healthcare proxy will bring a copy of that we are going to invoke it 11/06 increase olanzapine to 20mg po qhs and 10mg po daily. 11/07 continue tx. 12/04 continue tx. 12/05: no changes 12/06 continue tx. 12/12: continue plan of care 12/13: continue tx 12/19 continue current tx plan Plan 1. Continue with olanzapine 10 mg p.o. q.a.m. and 20 mg p.o. q.h.s., he refused p.o. he received olanzapine IM. 2. Continue with Valium 5 mg p.o. t.i.d. if he refuses he will get Valium IM. 3. We will encourage compliance. The patient had been noncompliant with sertraline, he remains dysphoric. 4. The patient has a healthcare proxy who was affirmed by court, and they want us to medicate him even if the patient does not want to be compliant. 5. At this moment the patient is slightly over-sedated with EPS but we will keep the same dose of antipsychotics since his violence has improved. Reason for continued inpatient stay Substantial Risk for: inability to function, rapid decompensation and med/psych decompensation Time Spent With Patient Time: Total time managing care of this patient today __20__ minutes.
[2024-12-24 20:00] VITALS: BP 135/75; PULSE 66; RESP 15; TEMP 36.8; O2SAT 99
[2024-12-24] MEDS: Memantine HCl 5 MG TABLET PO (20:55)
[2024-12-24] MEDS: Primidone 50 MG TABLET PO (20:55)
[2024-12-24] MEDS: Atorvastatin Calcium 80 MG TABLET PO (20:56)
[2024-12-24] MEDS: metFORMIN HCl ER 500 MG TAB.ER.24H PO (20:57)
[2024-12-24] MEDS: Benztropine Mesylate 0.5 MG TABLET 1 MG PO (20:57)
[2024-12-24] MEDS: OLANZapine 10 MG TABLET 20 MG PO (20:57)
[2024-12-24] MEDS: OXcarbazepine 300 MG TABLET 600 MG PO (20:57)
[2024-12-24] MEDS: Mirtazapine 30 MG TABLET PO (20:58)
[2024-12-24] MEDS: Sertraline HCL 100 MG TABLET PO (20:58)
[2024-12-25 08:46] VITALS: BP 132/88
[2024-12-25] MEDS: lisinopriL 20 MG TABLET PO (08:46)
[2024-12-25 08:47] VITALS: BP 132/88
[2024-12-25] MEDS: Primidone 50 MG TABLET PO (08:47)
[2024-12-25] MEDS: metFORMIN HCl ER 500 MG TAB.ER.24H PO (08:47)
[2024-12-25] MEDS: OXcarbazepine 300 MG TABLET 600 MG PO (08:47)
[2024-12-25] MEDS: Memantine HCl 5 MG TABLET PO (08:47)
[2024-12-25] MEDS: OLANZapine ODT 10 MG TAB.RAPDIS TRANSLINGU (08:47)
[2024-12-25] MEDS: Empagliflozin 10 MG TABLET PO (08:47)
[2024-12-25] MEDS: Furosemide 20 MG TABLET PO (08:47)
[2024-12-25] MEDS: Tamsulosin HCL 0.4 MG CAPSULE PO (08:47)
[2024-12-25] MEDS: diazePAM 5 MG TABLET PO ×2 (08:47→21:21)
[2024-12-25 08:48] VITALS: BP 132/88; PULSE 103; RESP 19; TEMP 37; O2SAT 95
[2024-12-25 09:17] LABS: Creatinine Clr Calc Pharmacy 76.8; Estimated Glomerular Filt Rate > 60
[2024-12-25 13:15] VITALS: BP 114/64; PULSE 94; RESP 19; TEMP 36.4; O2SAT 98
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
[2024-12-25] MEDS: Sertraline HCL 100 MG TABLET PO (21:20)
[2024-12-25] MEDS: OLANZapine 10 MG TABLET 20 MG PO (21:20)
[2024-12-25 23:00] VITALS: BP 101/61; PULSE 73; RESP 17; TEMP 36.3; O2SAT 95
[2024-12-26 08:00] VITALS: BP 132/82; PULSE 90; RESP 18; TEMP 36.4; O2SAT 99
[2024-12-26] MEDS: Memantine HCl 5 MG TABLET PO ×2 (09:34→20:13)
[2024-12-26] MEDS: OXcarbazepine 300 MG TABLET PO (09:34)
[2024-12-26] MEDS: Tamsulosin HCL 0.4 MG CAPSULE PO (09:34)
[2024-12-26] MEDS: diazePAM 5 MG TABLET PO ×2 (09:34→20:12)
[2024-12-26] MEDS: Primidone 50 MG TABLET PO ×2 (09:34→20:15)
[2024-12-26] MEDS: OLANZapine ODT 10 MG TAB.RAPDIS TRANSLINGU (09:34)
[2024-12-26] MEDS: lisinopriL 20 MG TABLET PO (09:35)
[2024-12-26] MEDS: metFORMIN HCl ER 500 MG TAB.ER.24H PO ×2 (09:35→20:13)
[2024-12-26] MEDS: Empagliflozin 10 MG TABLET PO (09:35)
[2024-12-26] MEDS: Furosemide 20 MG TABLET PO (09:35)
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
[2024-12-26 20:00] VITALS: BP 105/60; PULSE 75; RESP 18; TEMP 36; O2SAT 96
[2024-12-26] MEDS: OLANZapine 10 MG TABLET 20 MG PO (20:11)
[2024-12-26] MEDS: Mirtazapine 30 MG TABLET PO (20:12)
[2024-12-26] MEDS: Sertraline HCL 100 MG TABLET PO (20:13)
[2024-12-26] MEDS: Benztropine Mesylate 0.5 MG TABLET 1 MG PO (20:13)
[2024-12-26] MEDS: Atorvastatin Calcium 80 MG TABLET PO (20:15)
[2024-12-27 09:40] VITALS: BP 136/81; PULSE 101; RESP 14; TEMP 36.2; O2SAT 97
[2024-12-27] MEDS: Empagliflozin 10 MG TABLET PO (09:43)
[2024-12-27] MEDS: Memantine HCl 5 MG TABLET PO ×2 (09:43→21:00)
[2024-12-27] MEDS: metFORMIN HCl ER 500 MG TAB.ER.24H PO ×2 (09:43→20:59)
[2024-12-27] MEDS: lisinopriL 20 MG TABLET PO (09:44)
[2024-12-27] MEDS: Tamsulosin HCL 0.4 MG CAPSULE PO (09:44)
[2024-12-27] MEDS: Primidone 50 MG TABLET PO ×2 (09:44→21:15)
[2024-12-27] MEDS: Furosemide 20 MG TABLET PO (09:44)
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
[2024-12-27 20:00] VITALS: BP 111/71; PULSE 85; RESP 16; TEMP 36.6; O2SAT 98
[2024-12-27] MEDS: OLANZapine 10 MG TABLET 20 MG PO (21:14)
[2024-12-27] MEDS: Sertraline HCL 100 MG TABLET PO (21:15)
[2024-12-27] MEDS: diazePAM 5 MG TABLET PO (21:15)
[2024-12-27] MEDS: Benztropine Mesylate 0.5 MG TABLET 1 MG PO (21:15)
[2024-12-27] MEDS: Mirtazapine 30 MG TABLET PO (21:15)
[2024-12-28 09:07] VITALS: BP 134/82; PULSE 89; RESP 18; TEMP 36.6; O2SAT 94
[2024-12-28 13:54] VITALS: BP 136/82
[2024-12-28] MEDS: Tamsulosin HCL 0.4 MG CAPSULE PO (13:56)
[2024-12-28] MEDS: Empagliflozin 10 MG TABLET PO (13:58)
[2024-12-28] MEDS: Furosemide 20 MG TABLET PO (13:58)
--- NOTE | 2024-12-28 13:58 | P.PNPSI_ITS ---
Subjective Subjective Date of Service: 12/28/24 Reason For Visit: Anxiety, mood disorder, ASD Subjective Notes: Conditional Voluntary Healthcare Proxy: Yes Interim History: The nursing staff reported the patient had been lethargic in the morning with very limited p.o. intake. On interview the patient was alert and awake, still internally preoccupied grossly psychotic. Mental Status Exam Mental Status Exam Patient Appearance: Disheveled and Unkempt Patient Orientation: Person and Situation Level of Consciousness: Awake Patient Behavior: Guarded and Passive Mood Description: Withdrawn Affect Description: Blunted Patient Cognition Impaired: Yes Ability to Follow Directions: Fair Speech Pattern: Impoverished Hallucinations: None Delusions: Paranoid Ideation and Ideas of Reference Thought Process: Distracted and Slowed Thinking Thought Content: positive for [place] and positive for Poverty of Content Judgement: Poor Diagnostics Vital Signs (24Hr): Vital Signs - 24 hr 12/27/24 20:00 12/28/24 09:07 12/28/24 13:54 Temperature 97.8 F 97.8 F Pulse Rate 85 89 Respiratory Rate 16 18 Blood Pressure 111/71 134/82 136/82 Pulse Oximetry 98 94 Oxygen Delivery Method Room Air Room Air BMI result Body Mass Index 26.9 Labs 10/28/24 09:10 12/24/24 08:51 Medications Medications Current Medications Acetaminophen (Acetaminophen 325 Mg Tablet) 650 mg PO Q6H PRN PRN Reason: Headache/Pain Mild Scale (1-3) Al Hydroxide/Mg Hydroxide (Magnesium Hydrox/Alum Hydrox 30 Ml Oral.Susp) 30 ml PO Q6H PRN PRN Reason: Heartburn/Nausea Atorvastatin Calcium (Atorvastatin Calcium 80 Mg Tablet) 80 mg PO BEDTIME [facility] Last Admin: 12/27/24 21:17 Dose: Not Given Benztropine Mesylate (Benztropine Mesylate 0.5 Mg Tablet) 1 mg PO BEDTIME [facility] Last Admin: 12/27/24 21:15 Dose: 1 mg Diazepam (Diazepam 5 Mg Tablet) 5 mg PO TID [facility] Last Admin: 12/28/24 09:52 Dose: Not Given Diazepam (Diazepam 10 Mg/2 Ml Cartridge) 5 mg IM TID PRN PRN Reason: PO refusal. HOLD FOR SEDATION Last Admin: 12/21/24 10:22 Dose: 5 mg Empagliflozin (Empagliflozin 10 Mg Tablet) 10 mg PO DAILY [facility] Last Admin: 12/27/24 09:43 Dose: 10 mg Furosemide (Furosemide 20 Mg Tablet) 20 mg PO DAILY [facility]; Protocol Last Admin: 12/27/24 09:44 Dose: 20 mg Hydroxyzine HCl (Hydroxyzine Hcl 25 Mg Tablet) 25 mg PO Q6H PRN PRN Reason: Anxiety Last Admin: 11/18/24 17:38 Dose: 25 mg Lisinopril (Lisinopril 20 Mg Tablet) 20 mg PO DAILY [facility]; Protocol Last Admin: 12/27/24 09:44 Dose: 20 mg Magnesium Hydroxide (Milk Of Magnesia 30 Ml Oral.Susp) 30 ml PO DAILY PRN PRN Reason: Constipation Memantine (Memantine Hcl 5 Mg Tablet) 5 mg PO BID [facility] Last Admin: 12/27/24 21:00 Dose: 5 mg Metformin HCl (Metformin Hcl Er 500 Mg Tab.Er.24h) 500 mg PO BID [facility] Last Admin: 12/27/24 20:59 Dose: 500 mg Mirtazapine (Mirtazapine 30 Mg Tablet) 30 mg PO BEDTIME [facility] Last Admin: 12/27/24 21:15 Dose: 30 mg Nicotine (Nicotine 21 Mg Patch.Td24) 21 mg TRANSDERMA DAILY PRN PRN Reason: nicotine cravings Nicotine Polacrilex (Nicotine Polacrilex 2 Mg Gum) 4 mg BUCCAL Q2H PRN PRN Reason: Nicotine Cravings Olanzapine (Olanzapine 10 Mg Tablet) 20 mg PO BEDTIME [facility] Last Admin: 12/27/24 21:14 Dose: 20 mg Olanzapine (Olanzapine Odt 10 Mg Tab.Rapdis) 10 mg TRANSLINGU DAILY [facility] Last Admin: 12/28/24 09:53 Dose: Not Given Olanzapine (Olanzapine 10 Mg Vial) 10 mg IM BID PRN PRN Reason: PO refusal Last Admin: 12/21/24 10:22 Dose: 10 mg Oxcarbazepine (Oxcarbazepine 300 Mg Tablet) 300 mg PO BID [facility] Last Admin: 12/28/24 09:53 Dose: Not Given Primidone (Primidone 50 Mg Tablet) 50 mg PO BID [facility] Last Admin: 12/27/24 21:15 Dose: 50 mg Sertraline HCl (Sertraline Hcl 100 Mg Tablet) 100 mg PO BEDTIME [facility] Last Admin: 12/27/24 21:15 Dose: 100 mg Tamsulosin HCl (Tamsulosin Hcl 0.4 Mg Capsule) 0.4 mg PO DAILY [facility] Last Admin: 12/27/24 09:44 Dose: 0.4 mg Trazodone HCl (Trazodone Hcl 50 Mg Tablet) 50 mg PO BEDTIME MRX1 PRN PRN Reason: Insomnia Last Admin: 11/07/24 22:07 Dose: 50 mg Allergies Allergies Allergy/AdvReac Type Severity Reaction Status Date / Time No Known Allergies Allergy Verified 10/14/24 18:14 [No Known Allergies*] Assessment & Plan Assessment & Plan (1) Mood disorder: Status: Acute Code(s): F39 - Unspecified mood [affective] disorder (2) Autism spectrum disorder: Status: Acute Code(s): F84.0 - Autistic disorder (3) Neurocognitive disorder: Status: Acute Code(s): R41.9 - Unspecified symptoms and signs involving cognitive functions and awareness Plan Humza was admitted for safety and stabilization. His presentation is very similar to his last admission psychiatrically about a year ago and that is why his caregivers wanted to get ahead of things before he decompensated further. Current medications were reviewed and maintained. Contacts to be made with his treaters next week. 10/17: Continue current regimen and plans 10/19: Continue current tx plan and regime. 10/21: Memantine 5 mg daily- [facility], memory sx Abilify 2 mg daily-augment to antidepressants currently being used. 10/22 continue current tx plan -pt confused 10/23 Continue trials, regime and plan. 10/24: Continue regime and plan of care. 10/25 Abilify increased up to 5 mg. 10/26 keep on same treatment 10/27/24 continues with many complaints, no clear insight into self- 10/28 continue same treatment 10/29 increase Namenda to 5 mg p.o. b.i.d. and change Depakote to Depakene. Depakote level on 13/02 as per blood work of yesterday 10/30/24 - dc abilify inc olanzapine = continue depakene as he did take 5 capsules this am- prn olanzapine given - this afternoon for behaviors on unit- 10/31/24 wrote for liquid depakote option if refuses capsules, also got prn olanzapine for throwing self on floor 11/01 keep same treatment 11/02 increase Zyprexa to 20 mg p.o. q.h.s. 11/03 keep same treatment. 11/04 discontinue Depakote and start Trileptal 300 mg p.o. b.i.d.. Her healthcare proxy will bring a copy of that we are going to invoke it 11/06 increase olanzapine to 20mg po qhs and 10mg po daily. 11/07 continue tx. 12/04 continue tx. 12/05: no changes 12/06 continue tx. 12/12: continue plan of care 12/13: continue tx 12/19 continue current tx plan 12/25: appearing sedated, more of a falls risk, poorer ability to do ADLs. decrease trileptal dosing from 600 BID to 300 BID for now. 12/26: less sedated than yesterday, continue current mgmt, including 1:1, until attending can see pt in the morning. Plan 1. Continue with olanzapine 10 mg p.o. q.a.m. and 20 mg p.o. q.h.s., he refused p.o. he received olanzapine IM. 2. Continue with Valium 5 mg p.o. t.i.d. if he refuses he will get Valium IM. 3. We will encourage compliance. The patient had been noncompliant with sertraline, he remains dysphoric. 4. The patient has a healthcare proxy who was affirmed by court, and they want us to medicate him even if the patient does not want to be compliant. 5. At this moment the patient is slightly over-sedated with EPS but we will keep the same dose of antipsychotics since his violence has improved. Reason for continued inpatient stay Substantial Risk for: inability to function, rapid decompensation and med/psych decompensation Time Spent With Patient Time: Total time managing care of this patient today _20___ minutes.
[2024-12-28] MEDS: lisinopriL 20 MG TABLET PO (13:59)
[2024-12-28] MEDS: diazePAM 5 MG TABLET PO ×2 (16:03→19:46)
[2024-12-28 19:43] VITALS: BP 105/72; PULSE 97; RESP 17; TEMP 36.4; O2SAT 95
[2024-12-28] MEDS: Mirtazapine 30 MG TABLET PO (19:46)
[2024-12-28] MEDS: OLANZapine 10 MG TABLET 20 MG PO (19:46)
[2024-12-29 09:00] VITALS: BP 128/83; PULSE 81; RESP 18; TEMP 36; O2SAT 96
[2024-12-29 09:40] VITALS: BP 128/83
[2024-12-29] MEDS: diazePAM 5 MG TABLET PO ×3 (09:40→19:42)
[2024-12-29] MEDS: Furosemide 20 MG TABLET PO (09:40)
[2024-12-29] MEDS: OLANZapine ODT 10 MG TAB.RAPDIS TRANSLINGU (09:40)
[2024-12-29] MEDS: lisinopriL 20 MG TABLET PO (09:41)
--- NOTE | 2024-12-29 09:48 | P.PNPSI_ITS ---
Subjective Subjective Date of Service: 12/29/24 Reason For Visit: Anxiety, mood disorder, ASD Subjective Notes: Conditional Voluntary Mental Status Exam Mental Status Exam Patient Appearance: Disheveled and Unkempt Patient Orientation: Person Level of Consciousness: Awake Patient Behavior: Guarded and Passive Mood Description: Withdrawn Affect Description: Blunted Patient Cognition Impaired: Yes Ability to Follow Directions: Good Speech Pattern: Clear Hallucinations: None Delusions: Paranoid Ideation and Ideas of Reference Thought Process: Distracted and Slowed Thinking Thought Content: positive for Poverty of Content and positive for Thought Blocking Judgement: Fair Diagnostics Vital Signs (24Hr): Vital Signs - 24 hr 12/28/24 13:54 12/28/24 19:43 12/29/24 09:40 Temperature 97.5 F Pulse Rate 97 Respiratory Rate 17 Blood Pressure 136/82 105/72 128/83 Pulse Oximetry 95 Oxygen Delivery Method Room Air 12/29/24 09:41 Temperature Pulse Rate Respiratory Rate Blood Pressure 128/83 Pulse Oximetry Oxygen Delivery Method BMI result Body Mass Index 26.9 Labs 10/28/24 09:10 12/24/24 08:51 Medications Medications Current Medications Acetaminophen (Acetaminophen 325 Mg Tablet) 650 mg PO Q6H PRN PRN Reason: Headache/Pain Mild Scale (1-3) Al Hydroxide/Mg Hydroxide (Magnesium Hydrox/Alum Hydrox 30 Ml Oral.Susp) 30 ml PO Q6H PRN PRN Reason: Heartburn/Nausea Atorvastatin Calcium (Atorvastatin Calcium 80 Mg Tablet) 80 mg PO BEDTIME [facility] Last Admin: 12/28/24 19:54 Dose: Not Given Benztropine Mesylate (Benztropine Mesylate 0.5 Mg Tablet) 1 mg PO BEDTIME [facility] Last Admin: 12/28/24 19:55 Dose: Not Given Diazepam (Diazepam 5 Mg Tablet) 5 mg PO TID [facility] Last Admin: 12/29/24 09:40 Dose: 5 mg Diazepam (Diazepam 10 Mg/2 Ml Cartridge) 5 mg IM TID PRN PRN Reason: PO refusal. HOLD FOR SEDATION Last Admin: 12/21/24 10:22 Dose: 5 mg Empagliflozin (Empagliflozin 10 Mg Tablet) 10 mg PO DAILY [facility] Last Admin: 12/28/24 13:58 Dose: 10 mg Furosemide (Furosemide 20 Mg Tablet) 20 mg PO DAILY [facility]; Protocol Last Admin: 12/29/24 09:40 Dose: 20 mg Hydroxyzine HCl (Hydroxyzine Hcl 25 Mg Tablet) 25 mg PO Q6H PRN PRN Reason: Anxiety Last Admin: 11/18/24 17:38 Dose: 25 mg Lisinopril (Lisinopril 20 Mg Tablet) 20 mg PO DAILY [facility]; Protocol Last Admin: 12/29/24 09:41 Dose: 20 mg Magnesium Hydroxide (Milk Of Magnesia 30 Ml Oral.Susp) 30 ml PO DAILY PRN PRN Reason: Constipation Memantine (Memantine Hcl 5 Mg Tablet) 5 mg PO BID [facility] Last Admin: 12/28/24 19:55 Dose: Not Given Metformin HCl (Metformin Hcl Er 500 Mg Tab.Er.24h) 500 mg PO BID [facility] Last Admin: 12/28/24 19:55 Dose: Not Given Mirtazapine (Mirtazapine 30 Mg Tablet) 30 mg PO BEDTIME [facility] Last Admin: 12/28/24 19:46 Dose: 30 mg Nicotine (Nicotine 21 Mg Patch.Td24) 21 mg TRANSDERMA DAILY PRN PRN Reason: nicotine cravings Nicotine Polacrilex (Nicotine Polacrilex 2 Mg Gum) 4 mg BUCCAL Q2H PRN PRN Reason: Nicotine Cravings Olanzapine (Olanzapine 10 Mg Tablet) 20 mg PO BEDTIME [facility] Last Admin: 12/28/24 19:46 Dose: 20 mg Olanzapine (Olanzapine Odt 10 Mg Tab.Rapdis) 10 mg TRANSLINGU DAILY [facility] Last Admin: 12/29/24 09:40 Dose: 10 mg Olanzapine (Olanzapine 10 Mg Vial) 10 mg IM BID PRN PRN Reason: PO refusal Last Admin: 12/21/24 10:22 Dose: 10 mg Oxcarbazepine (Oxcarbazepine 300 Mg Tablet) 300 mg PO BID [facility] Last Admin: 12/28/24 19:55 Dose: Not Given Primidone (Primidone 50 Mg Tablet) 50 mg PO BID [facility] Last Admin: 12/28/24 19:55 Dose: Not Given Sertraline HCl (Sertraline Hcl 100 Mg Tablet) 100 mg PO BEDTIME [facility] Last Admin: 12/28/24 19:55 Dose: Not Given Tamsulosin HCl (Tamsulosin Hcl 0.4 Mg Capsule) 0.4 mg PO DAILY [facility] Last Admin: 12/28/24 13:56 Dose: 0.4 mg Trazodone HCl (Trazodone Hcl 50 Mg Tablet) 50 mg PO BEDTIME [facility] PRN PRN Reason: Insomnia Last Admin: 11/07/24 22:07 Dose: 50 mg Allergies Allergies Allergy/AdvReac Type Severity Reaction Status Date / Time No Known Allergies Allergy Verified 10/14/24 18:14 [No Known Allergies*] Assessment & Plan Assessment & Plan (1) Mood disorder: Status: Acute Code(s): F39 - Unspecified mood [affective] disorder (2) Autism spectrum disorder: Status: Acute Code(s): F84.0 - Autistic disorder (3) Neurocognitive disorder: Status: Acute Code(s): R41.9 - Unspecified symptoms and signs involving cognitive functions and awareness Plan Humza was admitted for safety and stabilization. His presentation is very similar to his last admission psychiatrically about a year ago and that is why his caregivers wanted to get ahead of things before he decompensated further. Current medications were reviewed and maintained. Contacts to be made with his treaters next week. 10/17: Continue current regimen and plans 10/19: Continue current tx plan and regime. 10/21: Memantine 5 mg daily- [facility], memory sx Abilify 2 mg daily-augment to antidepressants currently being used. 10/22 continue current tx plan -pt confused 10/23 Continue trials, regime and plan. 10/24: Continue regime and plan of care. 10/25 Abilify increased up to 5 mg. 10/26 keep on same treatment 10/27/24 continues with many complaints, no clear insight into self- 10/28 continue same treatment 10/29 increase Namenda to 5 mg p.o. b.i.d. and change Depakote to Depakene. Depakote level on 13/02 as per blood work of yesterday 10/30/24 - [facility] [employer] olanzapine = continue depakene as he did take 5 capsules this am- prn olanzapine given - this afternoon for behaviors on unit- 10/31/24 wrote for liquid depakote option if refuses capsules, also got prn olanzapine for throwing self on floor 11/01 keep same treatment 11/02 increase Zyprexa to 20 mg p.o. q.h.s. 11/03 keep same treatment. 11/04 discontinue Depakote and start Trileptal 300 mg p.o. b.i.d.. Her healthcare proxy will bring a copy of that we are going to invoke it 11/06 increase olanzapine to 20mg po qhs and 10mg po daily. 11/07 continue tx. 12/04 continue tx. 12/05: no changes 12/06 continue tx. 12/12: continue plan of care 12/13: continue tx 12/19 continue current tx plan 12/25: appearing sedated, more of a falls risk, poorer ability to do ADLs. decrease trileptal dosing from 600 BID to 300 BID for now. 12/26: less sedated than yesterday, continue current mgmt, including 1:1, until attending can see pt in the morning. Plan 1. Continue with olanzapine 10 mg p.o. q.a.m. and 20 mg p.o. q.h.s., he refused p.o. he received olanzapine IM. 2. Continue with Valium 5 mg p.o. t.i.d. if he refuses he will get Valium IM. 3. We will encourage compliance. The patient had been noncompliant with sertraline, he remains dysphoric. 4. The patient has a healthcare proxy who was affirmed by court, and they want us to medicate him even if the patient does not want to be compliant. 5. At this moment the patient is slightly over-sedated with EPS but we will keep the same dose of antipsychotics since his violence has improved. Reason for continued inpatient stay Substantial Risk for: inability to function, rapid decompensation and med/psych decompensation Time Spent With Patient Time: Total time managing care of this patient today _20___ minutes.
[2024-12-29] MEDS: Mirtazapine 30 MG TABLET PO (19:42)
[2024-12-29] MEDS: OLANZapine 10 MG TABLET 20 MG PO (19:42)
[2024-12-29 20:12] VITALS: BP 101/59; PULSE 83; RESP 16; TEMP 36.9; O2SAT 96
[2024-12-30 08:00] VITALS: BP 114/65; PULSE 73; RESP 18; TEMP 36.2; O2SAT 98
[2024-12-30] MEDS: OLANZapine ODT 10 MG TAB.RAPDIS TRANSLINGU (09:20)
[2024-12-30] MEDS: diazePAM 5 MG TABLET PO ×3 (09:21→20:08)
[2024-12-30 09:22] VITALS: BP 114/65
[2024-12-30] MEDS: Primidone 50 MG TABLET PO ×2 (09:22→20:08)
[2024-12-30] MEDS: Furosemide 20 MG TABLET PO (09:22)
[2024-12-30 09:35] VITALS: BP 114/65
[2024-12-30 10:44] VITALS: BMI 26.5
--- NOTE | 2024-12-30 14:48 | HO.PSYCHPN ---
Subjective Subjective Date of Service: 12/30/24 Reason For Visit: Anxiety, mood disorder, ASD Interim History: sitting in milieu, calm, not unpleasant. quickly dismisses MD saying he has no questions or complaints. per staff, less sedated. able to ambulate. slept 8 hours. intermittently refusing some medications. Mental Status Exam Mental Status Exam Patient Appearance: Disheveled and Unkempt Patient Orientation: Person Level of Consciousness: Awake Patient Behavior: Guarded and Passive Mood Description: Withdrawn Affect Description: Blunted Patient Cognition Impaired: Yes Ability to Follow Directions: Good Speech Pattern: Clear Hallucinations: None Thought Process: Distracted and Slowed Thinking Thought Content: positive for Poverty of Content and positive for Thought Blocking Judgement: Fair Diagnostics Vital Signs (24Hr): Vital Signs - 24 hr 12/29/24 20:12 12/30/24 08:00 12/30/24 09:22 Temperature 98.4 F 97.1 F Pulse Rate 83 73 Respiratory Rate 16 18 Blood Pressure 101/59 L 114/65 114/65 Pulse Oximetry 96 98 Oxygen Delivery Method Room Air Room Air 12/30/24 09:35 Temperature Pulse Rate Respiratory Rate Blood Pressure 114/65 Pulse Oximetry Oxygen Delivery Method BMI result Body Mass Index 26.5 Labs 10/28/24 09:10 12/24/24 08:51 Medications Medications Current Medications Acetaminophen (Acetaminophen 325 Mg Tablet) 650 mg PO Q6H PRN PRN Reason: Headache/Pain Mild Scale (1-3) Al Hydroxide/Mg Hydroxide (Magnesium Hydrox/Alum Hydrox 30 Ml Oral.Susp) 30 ml PO Q6H PRN PRN Reason: Heartburn/Nausea Atorvastatin Calcium (Atorvastatin Calcium 80 Mg Tablet) 80 mg PO BEDTIME [facility] Last Admin: 12/29/24 19:46 Dose: Not Given Benztropine Mesylate (Benztropine Mesylate 0.5 Mg Tablet) 1 mg PO BEDTIME [facility] Last Admin: 12/29/24 19:46 Dose: Not Given Diazepam (Diazepam 5 Mg Tablet) 5 mg PO TID [facility] Last Admin: 12/30/24 09:21 Dose: 5 mg Diazepam (Diazepam 10 Mg/2 Ml Cartridge) 5 mg IM TID PRN PRN Reason: PO refusal. HOLD FOR SEDATION Last Admin: 12/21/24 10:22 Dose: 5 mg Empagliflozin (Empagliflozin 10 Mg Tablet) 10 mg PO DAILY [facility] Last Admin: 12/30/24 09:35 Dose: Not Given Furosemide (Furosemide 20 Mg Tablet) 20 mg PO DAILY [facility]; Protocol Last Admin: 12/30/24 09:22 Dose: 20 mg Hydroxyzine HCl (Hydroxyzine Hcl 25 Mg Tablet) 25 mg PO Q6H PRN PRN Reason: Anxiety Last Admin: 11/18/24 17:38 Dose: 25 mg Lisinopril (Lisinopril 20 Mg Tablet) 20 mg PO DAILY [facility]; Protocol Last Admin: 12/30/24 09:35 Dose: Not Given Magnesium Hydroxide (Milk Of Magnesia 30 Ml Oral.Susp) 30 ml PO DAILY PRN PRN Reason: Constipation Memantine (Memantine Hcl 5 Mg Tablet) 5 mg PO BID [facility] Last Admin: 12/30/24 09:35 Dose: Not Given Metformin HCl (Metformin Hcl Er 500 Mg Tab.Er.24h) 500 mg PO BID [facility] Last Admin: 12/30/24 09:35 Dose: Not Given Mirtazapine (Mirtazapine 30 Mg Tablet) 30 mg PO BEDTIME [facility] Last Admin: 12/29/24 19:42 Dose: 30 mg Nicotine (Nicotine 21 Mg Patch.Td24) 21 mg TRANSDERMA DAILY PRN PRN Reason: nicotine cravings Nicotine Polacrilex (Nicotine Polacrilex 2 Mg Gum) 4 mg BUCCAL Q2H PRN PRN Reason: Nicotine Cravings Olanzapine (Olanzapine 10 Mg Tablet) 20 mg PO BEDTIME [facility] Last Admin: 12/29/24 19:42 Dose: 20 mg Olanzapine (Olanzapine Odt 10 Mg Tab.Rapdis) 10 mg TRANSLINGU DAILY [facility] Last Admin: 12/30/24 09:20 Dose: 10 mg Olanzapine (Olanzapine 10 Mg Vial) 10 mg IM BID PRN PRN Reason: PO refusal Last Admin: 12/21/24 10:22 Dose: 10 mg Oxcarbazepine (Oxcarbazepine 300 Mg Tablet) 300 mg PO BID [facility] Last Admin: 12/30/24 09:35 Dose: Not Given Primidone (Primidone 50 Mg Tablet) 50 mg PO BID [facility] Last Admin: 12/30/24 09:22 Dose: 50 mg Sertraline HCl (Sertraline Hcl 100 Mg Tablet) 100 mg PO BEDTIME [facility] Last Admin: 12/29/24 19:45 Dose: Not Given Tamsulosin HCl (Tamsulosin Hcl 0.4 Mg Capsule) 0.4 mg PO DAILY [facility] Last Admin: 12/30/24 09:36 Dose: Not Given Trazodone HCl (Trazodone Hcl 50 Mg Tablet) 50 mg PO BEDTIME [facility]X1 PRN PRN Reason: Insomnia Last Admin: 11/07/24 22:07 Dose: 50 mg Allergies Allergies Allergy/AdvReac Type Severity Reaction Status Date / Time No Known Allergies Allergy Verified 10/14/24 18:14 [No Known Allergies*] Assessment & Plan Assessment & Plan (1) Mood disorder: Status: Acute Code(s): F39 - Unspecified mood [affective] disorder (2) Autism spectrum disorder: Status: Acute Code(s): F84.0 - Autistic disorder (3) Neurocognitive disorder: Status: Acute Code(s): R41.9 - Unspecified symptoms and signs involving cognitive functions and awareness Plan Humza was admitted for safety and stabilization. His presentation is very similar to his last admission psychiatrically about a year ago and that is why his caregivers wanted to get ahead of things before he decompensated further. Current medications were reviewed and maintained. Contacts to be made with his treaters next week. 10/17: Continue current regimen and plans 10/19: Continue current tx plan and regime. 10/21: Memantine 5 mg daily- [facility], memory sx Abilify 2 mg daily-augment to antidepressants currently being used. 10/22 continue current tx plan -pt confused 10/23 Continue trials, regime and plan. 10/24: Continue regime and plan of care. 10/25 Abilify increased up to 5 mg. 10/26 keep on same treatment 10/27/24 continues with many complaints, no clear insight into self- 10/28 continue same treatment 10/29 increase Namenda to 5 mg p.o. b.i.d. and change Depakote to Depakene. Depakote level on 13/02 as per blood work of yesterday 10/30/24 - [facility] olanzapine = continue depakene as he did take 5 capsules this am- prn olanzapine given - this afternoon for behaviors on unit- 10/31/24 wrote for liquid depakote option if refuses capsules, also got prn olanzapine for throwing self on floor 11/01 keep same treatment 11/02 increase Zyprexa to 20 mg p.o. q.h.s. 11/03 keep same treatment. 11/04 discontinue Depakote and start Trileptal 300 mg p.o. b.i.d.. Her healthcare proxy will bring a copy of that we are going to invoke it 11/06 increase olanzapine to 20mg po qhs and 10mg po daily. 11/07 continue tx. 12/04 continue tx. 12/05: no changes 12/06 continue tx. 12/12: continue plan of care 12/13: continue tx 12/19 continue current tx plan 12/25: appearing sedated, more of a falls risk, poorer ability to do ADLs. decrease trileptal dosing from 600 BID to 300 BID for now. 12/26: less sedated than yesterday, continue current mgmt, including 1:1, until attending can see pt in the morning. 12/30: continues less sedated. minimally interactive. continue current mgmt. Plan 1. Continue with olanzapine 10 mg p.o. q.a.m. and 20 mg p.o. q.h.s., he refused p.o. he received olanzapine IM. 2. Continue with Valium 5 mg p.o. t.i.d. if he refuses he will get Valium IM. 3. We will encourage compliance. The patient had been noncompliant with sertraline, he remains dysphoric. 4. The patient has a healthcare proxy who was affirmed by court, and they want us to medicate him even if the patient does not want to be compliant. 5. At this moment the patient is slightly over-sedated with EPS but we will keep the same dose of antipsychotics since his violence has improved. Reason for continued inpatient stay Substantial Risk for: harm to others, inability to function and rapid decompensation Time Spent With Patient Time: Total time managing care of this patient today ____ minutes.
[2024-12-30 20:00] VITALS: BP 115/66; PULSE 65; RESP 16; TEMP 36.4; O2SAT 97
[2024-12-30] MEDS: OLANZapine 10 MG TABLET 20 MG PO (20:08)
[2024-12-30] MEDS: Mirtazapine 30 MG TABLET PO (20:08)
[2024-12-31 09:02] VITALS: BP 124/79; PULSE 81; RESP 15; TEMP 36.8; O2SAT 94
[2024-12-31] MEDS: diazePAM 5 MG TABLET PO (09:04)
[2024-12-31] MEDS: lisinopriL 20 MG TABLET PO (09:04)
[2024-12-31] MEDS: Furosemide 20 MG TABLET PO (09:04)
[2024-12-31] MEDS: OLANZapine ODT 10 MG TAB.RAPDIS TRANSLINGU (09:04)
[2024-12-31] MEDS: Empagliflozin 10 MG TABLET PO (09:06)
[2024-12-31] MEDS: Memantine HCl 5 MG TABLET PO (09:07)
[2024-12-31] MEDS: metFORMIN HCl ER 500 MG TAB.ER.24H PO (09:07)
[2024-12-31] MEDS: Primidone 50 MG TABLET PO (09:07)
[2024-12-31 09:32] LABS: Creatinine Clr Calc Pharmacy 72.2; Estimated Glomerular Filt Rate > 60
--- NOTE | 2024-12-31 12:54 | P.PNPSI_ITS ---
Subjective Subjective Date of Service: 12/31/24 Reason For Visit: Anxiety, mood disorder, ASD Interim History: met with HCP and patient and SW for an extended period. Tx plan reviewed with HCP. HCP feels pt is over-sedated. per staff, slept 8 hours, more awake than he had been. Mental Status Exam Mental Status Exam Patient Appearance: Disheveled and Unkempt Patient Orientation: Person Level of Consciousness: Awake Patient Behavior: Guarded and Passive Mood Description: Withdrawn Affect Description: Blunted Patient Cognition Impaired: Yes Ability to Follow Directions: Good Speech Pattern: Clear Hallucinations: None Thought Process: Distracted and Slowed Thinking Thought Content: positive for Poverty of Content and positive for Thought Blocking Judgement: Fair Diagnostics Vital Signs (24Hr): Vital Signs - 24 hr 12/30/24 20:00 12/31/24 09:02 Temperature 97.5 F 98.2 F Pulse Rate 65 81 Respiratory Rate 16 15 Blood Pressure 115/66 124/79 Pulse Oximetry 97 94 Oxygen Delivery Method Room Air Room Air BMI result Body Mass Index 26.5 Labs 10/28/24 09:10 12/31/24 09:01 Labs: Laboratory Results - last 48 hr 12/31/24 09:01 Creatinine 1.00 Estim Creat Clear Calc 72.2 Estimated GFR > 60 Medications Medications Current Medications Acetaminophen (Acetaminophen 325 Mg Tablet) 650 mg PO Q6H PRN PRN Reason: Headache/Pain Mild Scale (1-3) Al Hydroxide/Mg Hydroxide (Magnesium Hydrox/Alum Hydrox 30 Ml Oral.Susp) 30 ml PO Q6H PRN PRN Reason: Heartburn/Nausea Atorvastatin Calcium (Atorvastatin Calcium 80 Mg Tablet) 80 mg PO BEDTIME [facility] Last Admin: 12/30/24 20:06 Dose: Not Given Benztropine Mesylate (Benztropine Mesylate 0.5 Mg Tablet) 1 mg PO BEDTIME [facility] Last Admin: 12/30/24 20:06 Dose: Not Given Diazepam (Diazepam 10 Mg/2 Ml Cartridge) 5 mg IM TID PRN PRN Reason: PO refusal. HOLD FOR SEDATION Last Admin: 12/21/24 10:22 Dose: 5 mg Diazepam (Diazepam 2 Mg Tablet) 4 mg PO TID [facility] Empagliflozin (Empagliflozin 10 Mg Tablet) 10 mg PO DAILY [facility] Last Admin: 12/31/24 09:06 Dose: 10 mg Furosemide (Furosemide 20 Mg Tablet) 20 mg PO DAILY [facility]; Protocol Last Admin: 12/31/24 09:04 Dose: 20 mg Hydroxyzine HCl (Hydroxyzine Hcl 25 Mg Tablet) 25 mg PO Q6H PRN PRN Reason: Anxiety Last Admin: 11/18/24 17:38 Dose: 25 mg Lisinopril (Lisinopril 20 Mg Tablet) 20 mg PO DAILY [facility]; Protocol Last Admin: 12/31/24 09:04 Dose: 20 mg Magnesium Hydroxide (Milk Of Magnesia 30 Ml Oral.Susp) 30 ml PO DAILY PRN PRN Reason: Constipation Memantine (Memantine Hcl 5 Mg Tablet) 5 mg PO BID [facility] Last Admin: 12/31/24 09:07 Dose: 5 mg Metformin HCl (Metformin Hcl Er 500 Mg Tab.Er.24h) 500 mg PO BID [facility] Last Admin: 12/31/24 09:07 Dose: 500 mg Mirtazapine (Mirtazapine 30 Mg Tablet) 30 mg PO BEDTIME [facility] Last Admin: 12/30/24 20:08 Dose: 30 mg Nicotine (Nicotine 21 Mg Patch.Td24) 21 mg TRANSDERMA DAILY PRN PRN Reason: nicotine cravings Nicotine Polacrilex (Nicotine Polacrilex 2 Mg Gum) 4 mg BUCCAL Q2H PRN PRN Reason: Nicotine Cravings Olanzapine (Olanzapine 10 Mg Tablet) 20 mg PO BEDTIME [facility] Last Admin: 12/30/24 20:08 Dose: 20 mg Olanzapine (Olanzapine Odt 10 Mg Tab.Rapdis) 10 mg TRANSLINGU DAILY [facility] Last Admin: 12/31/24 09:04 Dose: 10 mg Olanzapine (Olanzapine 10 Mg Vial) 10 mg IM BID PRN PRN Reason: PO refusal Last Admin: 12/21/24 10:22 Dose: 10 mg Oxcarbazepine (Oxcarbazepine 300 Mg Tablet) 300 mg PO BID [facility] Last Admin: 12/31/24 09:09 Dose: Not Given Primidone (Primidone 50 Mg Tablet) 50 mg PO BID [facility] Last Admin: 12/31/24 09:07 Dose: 50 mg Sertraline HCl (Sertraline Hcl 100 Mg Tablet) 100 mg PO BEDTIME [facility] Last Admin: 12/30/24 20:08 Dose: Not Given Tamsulosin HCl (Tamsulosin Hcl 0.4 Mg Capsule) 0.4 mg PO DAILY [facility] Last Admin: 12/31/24 09:09 Dose: Not Given Trazodone HCl (Trazodone Hcl 50 Mg Tablet) 50 mg PO BEDTIME [facility] PRN PRN Reason: Insomnia Last Admin: 11/07/24 22:07 Dose: 50 mg Allergies Allergies Allergy/AdvReac Type Severity Reaction Status Date / Time No Known Allergies Allergy Verified 10/14/24 18:14 [No Known Allergies*] Assessment & Plan Assessment & Plan (1) Mood disorder: Status: Acute Code(s): F39 - Unspecified mood [affective] disorder (2) Autism spectrum disorder: Status: Acute Code(s): F84.0 - Autistic disorder (3) Neurocognitive disorder: Status: Acute Code(s): R41.9 - Unspecified symptoms and signs involving cognitive functions and awareness Plan Humza was admitted for safety and stabilization. His presentation is very similar to his last admission psychiatrically about a year ago and that is why his caregivers wanted to get ahead of things before he decompensated further. Current medications were reviewed and maintained. Contacts to be made with his treaters next week. 10/17: Continue current regimen and plans 10/19: Continue current tx plan and regime. 10/21: Memantine 5 mg daily- [facility], memory sx Abilify 2 mg daily-augment to antidepressants currently being used. 10/22 continue current tx plan -pt confused 10/23 Continue trials, regime and plan. 10/24: Continue regime and plan of care. 10/25 Abilify increased up to 5 mg. 10/26 keep on same treatment 10/27/24 continues with many complaints, no clear insight into self- 10/28 continue same treatment 10/29 increase Namenda to 5 mg p.o. b.i.d. and change Depakote to Depakene. Depakote level on 13/02 as per blood work of yesterday 10/30/24 - [facility] [employer] olanzapine = continue depakene as he did take 5 capsules this am- prn olanzapine given - this afternoon for behaviors on unit- 10/31/24 wrote for liquid depakote option if refuses capsules, also got prn olanzapine for throwing self on floor 11/01 keep same treatment 11/02 increase Zyprexa to 20 mg p.o. q.h.s. 11/03 keep same treatment. 11/04 discontinue Depakote and start Trileptal 300 mg p.o. b.i.d.. Her healthcare proxy will bring a copy of that we are going to invoke it 11/06 increase olanzapine to 20mg po qhs and 10mg po daily. 11/07 continue tx. 12/04 continue tx. 12/05: no changes 12/06 continue tx. 12/12: continue plan of care 12/13: continue tx 12/19 continue current tx plan 12/25: appearing sedated, more of a falls risk, poorer ability to do ADLs. decrease trileptal dosing from 600 BID to 300 BID for now. 12/26: less sedated than yesterday, continue current mgmt, including 1:1, until attending can see pt in the morning. 12/30: continues less sedated. minimally interactive. continue current mgmt. 12/31: per HCP, not at baseline, over-sedated. begin valium taper. decrease valium 5 TID to 4 TID for now. per HCP and SW, HCP has been affirmed in court. IM back-up orders in place and to be enforced by nursing staff. no aggressive or agitated behaviors. Plan 1. Continue with olanzapine 10 mg p.o. q.a.m. and 20 mg p.o. q.h.s., he refused p.o. he received olanzapine IM. 2. Continue with Valium 5 mg p.o. t.i.d. if he refuses he will get Valium IM. 3. We will encourage compliance. The patient had been noncompliant with sertraline, he remains dysphoric. 4. The patient has a healthcare proxy who was affirmed by court, and they want us to medicate him even if the patient does not want to be compliant. 5. At this moment the patient is slightly over-sedated with EPS but we will keep the same dose of antipsychotics since his violence has improved. Reason for continued inpatient stay Substantial Risk for: harm to others, inability to function and rapid decompensation Time Spent With Patient Time: Total time managing care of this patient today __45__ minutes.
[2024-12-31] MEDS: diazePAM 2 MG TABLET 4 MG PO ×2 (16:44→19:24)
[2024-12-31 19:22] VITALS: BP 123/78; PULSE 87; RESP 16; TEMP 36.3; O2SAT 99
[2024-12-31] MEDS: OLANZapine 10 MG TABLET 20 MG PO (19:24)
[2024-12-31] MEDS: Mirtazapine 30 MG TABLET PO (19:24)
[2025-01-01 08:00] VITALS: BP 105/56; PULSE 73; RESP 16; TEMP 36.3; O2SAT 98
[2025-01-01] MEDS: metFORMIN HCl ER 500 MG TAB.ER.24H PO (09:11)
[2025-01-01] MEDS: diazePAM 2 MG TABLET 4 MG PO ×3 (09:11→19:28)
[2025-01-01] MEDS: Memantine HCl 5 MG TABLET PO (09:12)
[2025-01-01] MEDS: OXcarbazepine 300 MG TABLET PO (09:12)
[2025-01-01] MEDS: OLANZapine ODT 10 MG TAB.RAPDIS TRANSLINGU (09:12)
[2025-01-01 09:24] VITALS: BP 105/56
[2025-01-01 09:58] LABS: Glucose, Whole Blood 125 mg/dL (60-115)
--- NOTE | 2025-01-01 13:13 | P.PNPSI_ITS ---
Subjective Subjective Date of Service: 01/01/25 Reason For Visit: Anxiety, mood disorder, ASD Subjective Notes: Conditional Voluntary Interim History: patient was seen and discussed in rounds today. Records and plans were reviewed. He has been taking medications very selectively. No reasons given. Mostly eating and sleeping adequately. No complaints. No changes Review of Systems Review of Systems Yes Unobtainable due to mental status Mental Status Exam Mental Status Exam Patient Appearance: Disheveled and Unkempt Patient Orientation: Person Level of Consciousness: Awake Patient Behavior: Guarded and Passive Mood Description: Withdrawn Affect Description: Blunted Patient Cognition Impaired: Yes Ability to Follow Directions: Good Speech Pattern: Clear Hallucinations: None Thought Process: Distracted and Slowed Thinking Thought Content: positive for Poverty of Content and positive for Thought Blocking Judgement: Fair Diagnostics Vital Signs (24Hr): Vital Signs - 24 hr 12/31/24 19:22 01/01/25 08:00 01/01/25 09:24 Temperature 97.3 F 97.3 F Pulse Rate 87 73 Respiratory Rate 16 16 Blood Pressure 123/78 105/56 L 105/56 L Pulse Oximetry 99 98 Oxygen Delivery Method Room Air Room Air 01/01/25 09:24 Temperature Pulse Rate Respiratory Rate Blood Pressure 105/56 L Pulse Oximetry Oxygen Delivery Method BMI result Body Mass Index 26.5 Labs 10/28/24 09:10 12/31/24 09:01 Labs: Laboratory Results - last 48 hr 12/31/24 01/01/25 09:01 09:53 Creatinine 1.00 Estim Creat Clear Calc 72.2 Estimated GFR > 60 POC Glucose 125 H Medications Medications Current Medications Acetaminophen (Acetaminophen 325 Mg Tablet) 650 mg PO Q6H PRN PRN Reason: Headache/Pain Mild Scale (1-3) Al Hydroxide/Mg Hydroxide (Magnesium Hydrox/Alum Hydrox 30 Ml Oral.Susp) 30 ml PO Q6H PRN PRN Reason: Heartburn/Nausea Atorvastatin Calcium (Atorvastatin Calcium 80 Mg Tablet) 80 mg PO BEDTIME [facility] Last Admin: 12/31/24 19:32 Dose: Not Given Benztropine Mesylate (Benztropine Mesylate 0.5 Mg Tablet) 1 mg PO BEDTIME [facility] Last Admin: 12/31/24 19:32 Dose: Not Given Diazepam (Diazepam 10 Mg/2 Ml Cartridge) 5 mg IM TID PRN PRN Reason: PO refusal. HOLD FOR SEDATION Last Admin: 12/21/24 10:22 Dose: 5 mg Diazepam (Diazepam 2 Mg Tablet) 4 mg PO TID [facility] Last Admin: 01/01/25 09:11 Dose: 4 mg Empagliflozin (Empagliflozin 10 Mg Tablet) 10 mg PO DAILY [facility] Last Admin: 01/01/25 09:24 Dose: Not Given Furosemide (Furosemide 20 Mg Tablet) 20 mg PO DAILY [facility]; Protocol Last Admin: 01/01/25 09:24 Dose: Not Given Hydroxyzine HCl (Hydroxyzine Hcl 25 Mg Tablet) 25 mg PO Q6H PRN PRN Reason: Anxiety Last Admin: 11/18/24 17:38 Dose: 25 mg Lisinopril (Lisinopril 20 Mg Tablet) 20 mg PO DAILY [facility]; Protocol Last Admin: 01/01/25 09:24 Dose: Not Given Magnesium Hydroxide (Milk Of Magnesia 30 Ml Oral.Susp) 30 ml PO DAILY PRN PRN Reason: Constipation Memantine (Memantine Hcl 5 Mg Tablet) 5 mg PO BID [facility] Last Admin: 01/01/25 09:12 Dose: 5 mg Metformin HCl (Metformin Hcl Er 500 Mg Tab.Er.24h) 500 mg PO BID [facility] Last Admin: 01/01/25 09:11 Dose: 500 mg Mirtazapine (Mirtazapine 30 Mg Tablet) 30 mg PO BEDTIME [facility] Last Admin: 12/31/24 19:24 Dose: 30 mg Nicotine (Nicotine 21 Mg Patch.Td24) 21 mg TRANSDERMA DAILY PRN PRN Reason: nicotine cravings Nicotine Polacrilex (Nicotine Polacrilex 2 Mg Gum) 4 mg BUCCAL Q2H PRN PRN Reason: Nicotine Cravings Olanzapine (Olanzapine 10 Mg Tablet) 20 mg PO BEDTIME [facility] Last Admin: 12/31/24 19:24 Dose: 20 mg Olanzapine (Olanzapine Odt 10 Mg Tab.Rapdis) 10 mg TRANSLINGU DAILY [facility] Last Admin: 01/01/25 09:12 Dose: 10 mg Olanzapine (Olanzapine 10 Mg Vial) 10 mg IM BID PRN PRN Reason: PO refusal Last Admin: 12/21/24 10:22 Dose: 10 mg Oxcarbazepine (Oxcarbazepine 300 Mg Tablet) 300 mg PO BID [facility] Last Admin: 01/01/25 09:12 Dose: 300 mg Primidone (Primidone 50 Mg Tablet) 50 mg PO BID [facility] Last Admin: 01/01/25 09:26 Dose: Not Given Sertraline HCl (Sertraline Hcl 100 Mg Tablet) 100 mg PO BEDTIME [facility] Last Admin: 12/31/24 19:33 Dose: Not Given Tamsulosin HCl (Tamsulosin Hcl 0.4 Mg Capsule) 0.4 mg PO DAILY [facility] Last Admin: 01/01/25 09:26 Dose: Not Given Trazodone HCl (Trazodone Hcl 50 Mg Tablet) 50 mg PO BEDTIME MRX1 PRN PRN Reason: Insomnia Last Admin: 11/07/24 22:07 Dose: 50 mg Allergies Allergies Allergy/AdvReac Type Severity Reaction Status Date / Time No Known Allergies Allergy Verified 10/14/24 18:14 [No Known Allergies*] Assessment & Plan Assessment & Plan (1) Mood disorder: Status: Acute Code(s): F39 - Unspecified mood [affective] disorder (2) Autism spectrum disorder: Status: Acute Code(s): F84.0 - Autistic disorder (3) Neurocognitive disorder: Status: Acute Code(s): R41.9 - Unspecified symptoms and signs involving cognitive functions and awareness Plan Humza was admitted for safety and stabilization. His presentation is very similar to his last admission psychiatrically about a year ago and that is why his caregivers wanted to get ahead of things before he decompensated further. Current medications were reviewed and maintained. Contacts to be made with his treaters next week. 10/17: Continue current regimen and plans 10/19: Continue current tx plan and regime. 10/21: Memantine 5 mg daily- [facility], memory sx Abilify 2 mg daily-augment to antidepressants currently being used. 10/22 continue current tx plan -pt confused 10/23 Continue trials, regime and plan. 10/24: Continue regime and plan of care. 10/25 Abilify increased up to 5 mg. 10/26 keep on same treatment 10/27/24 continues with many complaints, no clear insight into self- 10/28 continue same treatment 10/29 increase Namenda to 5 mg p.o. b.i.d. and change Depakote to Depakene. Depakote level on 13/02 as per blood work of yesterday 10/30/24 - dc abilify inc olanzapine = continue depakene as he did take 5 capsules this am- prn olanzapine given - this afternoon for behaviors on unit- 10/31/24 wrote for liquid depakote option if refuses capsules, also got prn olanzapine for throwing self on floor 11/01 keep same treatment 11/02 increase Zyprexa to 20 mg p.o. q.h.s. 11/03 keep same treatment. 11/04 discontinue Depakote and start Trileptal 300 mg p.o. b.i.d.. Her healthcare proxy will bring a copy of that we are going to invoke it 11/06 increase olanzapine to 20mg po qhs and 10mg po daily. 11/07 continue tx. 12/04 continue tx. 12/05: no changes 12/06 continue tx. 12/12: continue plan of care 12/13: continue tx 12/19 continue current tx plan 12/25: appearing sedated, more of a falls risk, poorer ability to do ADLs. decrease trileptal dosing from 600 BID to 300 BID for now. 12/26: less sedated than yesterday, continue current mgmt, including 1:1, until attending can see pt in the morning. 12/30: continues less sedated. minimally interactive. continue current mgmt. 12/31: per HCP, not at baseline, over-sedated. begin valium taper. decrease valium 5 TID to 4 TID for now. per HCP and SW, HCP has been affirmed in court. IM back-up orders in place and to be enforced by nursing staff. no aggressive or agitated behaviors. Plan 1. Continue with olanzapine 10 mg p.o. q.a.m. and 20 mg p.o. q.h.s., he refused p.o. he received olanzapine IM. 2. Continue with Valium 5 mg p.o. t.i.d. if he refuses he will get Valium IM. 3. We will encourage compliance. The patient had been noncompliant with sertraline, he remains dysphoric. 4. The patient has a healthcare proxy who was affirmed by court, and they want us to medicate him even if the patient does not want to be compliant. 5. At this moment the patient is slightly over-sedated with EPS but we will keep the same dose of antipsychotics since his violence has improved. Reason for continued inpatient stay Substantial Risk for: inability to function and med/psych decompensation Time Spent With Patient Time: Total time managing care of this patient today ____ minutes.
[2025-01-01] MEDS: OLANZapine 10 MG TABLET 20 MG PO (19:28)
[2025-01-01] MEDS: Mirtazapine 30 MG TABLET PO (19:29)
[2025-01-01 19:44] VITALS: BP 134/96; PULSE 91; RESP 16; TEMP 36.3; O2SAT 96
[2025-01-02 06:18] LABS: Glucose, Whole Blood 146 mg/dL (60-115)
[2025-01-02 08:00] VITALS: BP 135/77; PULSE 67; RESP 16; TEMP 36.2; O2SAT 99
[2025-01-02 10:13] VITALS: BP 135/77
[2025-01-02] MEDS: Furosemide 20 MG TABLET PO (10:13)
[2025-01-02] MEDS: diazePAM 2 MG TABLET 4 MG PO ×3 (10:13→19:31)
[2025-01-02] MEDS: lisinopriL 20 MG TABLET PO (10:13)
[2025-01-02] MEDS: OLANZapine ODT 10 MG TAB.RAPDIS TRANSLINGU (10:13)
[2025-01-02] MEDS: metFORMIN HCl ER 500 MG TAB.ER.24H PO (10:14)
--- NOTE | 2025-01-02 10:48 | HO.PSYCHPN ---
Subjective Subjective Date of Service: 01/02/25 Reason For Visit: Anxiety, mood disorder, ASD Subjective Notes: Conditional Voluntary Interim History: patient was seen and discussed in rounds today. Records and plans were reviewed. He has been fairly stable. Medication compliant. No complaints or side effects. Vital signs are stable. Eating and sleeping adequately. No changes were made Review of Systems Review of Systems Yes all other systems are reviewed and are negative Mental Status Exam Mental Status Exam Patient Appearance: Disheveled and Unkempt Patient Orientation: Person Level of Consciousness: Awake Patient Behavior: Guarded and Passive Mood Description: Withdrawn Affect Description: Blunted Patient Cognition Impaired: Yes Ability to Follow Directions: Good Speech Pattern: Clear Hallucinations: None Thought Process: Distracted and Slowed Thinking Thought Content: positive for Poverty of Content and positive for Thought Blocking Judgement: Fair Diagnostics Vital Signs (24Hr): Vital Signs - 24 hr 01/01/25 19:44 01/02/25 10:13 01/02/25 10:13 Temperature 97.3 F Pulse Rate 91 Respiratory Rate 16 Blood Pressure 134/96 H 135/77 135/77 Pulse Oximetry 96 Oxygen Delivery Method Room Air BMI result Body Mass Index 26.5 Labs 10/28/24 09:10 12/31/24 09:01 Labs: Laboratory Results - last 48 hr 01/01/25 01/02/25 09:53 06:14 POC Glucose 125 H 146 H Medications Medications Current Medications Acetaminophen (Acetaminophen 325 Mg Tablet) 650 mg PO Q6H PRN PRN Reason: Headache/Pain Mild Scale (1-3) Al Hydroxide/Mg Hydroxide (Magnesium Hydrox/Alum Hydrox 30 Ml Oral.Susp) 30 ml PO Q6H PRN PRN Reason: Heartburn/Nausea Atorvastatin Calcium (Atorvastatin Calcium 80 Mg Tablet) 80 mg PO BEDTIME [facility] Last Admin: 01/01/25 19:38 Dose: Not Given Benztropine Mesylate (Benztropine Mesylate 0.5 Mg Tablet) 1 mg PO BEDTIME [facility] Last Admin: 01/01/25 19:38 Dose: Not Given Diazepam (Diazepam 10 Mg/2 Ml Cartridge) 5 mg IM TID PRN PRN Reason: PO refusal. HOLD FOR SEDATION Last Admin: 12/21/24 10:22 Dose: 5 mg Diazepam (Diazepam 2 Mg Tablet) 4 mg PO TID [facility] Last Admin: 01/02/25 10:13 Dose: 4 mg Empagliflozin (Empagliflozin 10 Mg Tablet) 10 mg PO DAILY [facility] Last Admin: 01/02/25 10:20 Dose: Not Given Furosemide (Furosemide 20 Mg Tablet) 20 mg PO DAILY [facility]; Protocol Last Admin: 01/02/25 10:13 Dose: 20 mg Hydroxyzine HCl (Hydroxyzine Hcl 25 Mg Tablet) 25 mg PO Q6H PRN PRN Reason: Anxiety Last Admin: 11/18/24 17:38 Dose: 25 mg Lisinopril (Lisinopril 20 Mg Tablet) 20 mg PO DAILY [facility]; Protocol Last Admin: 01/02/25 10:13 Dose: 20 mg Magnesium Hydroxide (Milk Of Magnesia 30 Ml Oral.Susp) 30 ml PO DAILY PRN PRN Reason: Constipation Memantine (Memantine Hcl 5 Mg Tablet) 5 mg PO BID [facility] Last Admin: 01/02/25 10:20 Dose: Not Given Metformin HCl (Metformin Hcl Er 500 Mg Tab.Er.24h) 500 mg PO BID [facility] Last Admin: 01/02/25 10:14 Dose: 500 mg Mirtazapine (Mirtazapine 30 Mg Tablet) 30 mg PO BEDTIME [facility] Last Admin: 01/01/25 19:29 Dose: 30 mg Nicotine (Nicotine 21 Mg Patch.Td24) 21 mg TRANSDERMA DAILY PRN PRN Reason: nicotine cravings Nicotine Polacrilex (Nicotine Polacrilex 2 Mg Gum) 4 mg BUCCAL Q2H PRN PRN Reason: Nicotine Cravings Olanzapine (Olanzapine 10 Mg Tablet) 20 mg PO BEDTIME [facility] Last Admin: 01/01/25 19:28 Dose: 20 mg Olanzapine (Olanzapine Odt 10 Mg Tab.Rapdis) 10 mg TRANSLINGU DAILY [facility] Last Admin: 01/02/25 10:13 Dose: 10 mg Olanzapine (Olanzapine 10 Mg Vial) 10 mg IM BID PRN PRN Reason: PO refusal Last Admin: 12/21/24 10:22 Dose: 10 mg Oxcarbazepine (Oxcarbazepine 300 Mg Tablet) 300 mg PO BID [facility] Last Admin: 01/02/25 10:21 Dose: Not Given Primidone (Primidone 50 Mg Tablet) 50 mg PO BID [facility] Last Admin: 01/02/25 10:21 Dose: Not Given Sertraline HCl (Sertraline Hcl 100 Mg Tablet) 100 mg PO BEDTIME [facility] Last Admin: 01/01/25 19:39 Dose: Not Given Tamsulosin HCl (Tamsulosin Hcl 0.4 Mg Capsule) 0.4 mg PO DAILY [facility] Last Admin: 01/02/25 10:21 Dose: Not Given Trazodone HCl (Trazodone Hcl 50 Mg Tablet) 50 mg PO BEDTIME MRX1 PRN PRN Reason: Insomnia Last Admin: 11/07/24 22:07 Dose: 50 mg Allergies Allergies Allergy/AdvReac Type Severity Reaction Status Date / Time No Known Allergies Allergy Verified 10/14/24 18:14 [No Known Allergies*] Assessment & Plan Assessment & Plan (1) Mood disorder: Status: Acute Code(s): F39 - Unspecified mood [affective] disorder (2) Autism spectrum disorder: Status: Acute Code(s): F84.0 - Autistic disorder (3) Neurocognitive disorder: Status: Acute Code(s): R41.9 - Unspecified symptoms and signs involving cognitive functions and awareness Plan Humza was admitted for safety and stabilization. His presentation is very similar to his last admission psychiatrically about a year ago and that is why his caregivers wanted to get ahead of things before he decompensated further. Current medications were reviewed and maintained. Contacts to be made with his treaters next week. 10/17: Continue current regimen and plans 10/19: Continue current tx plan and regime. 10/21: Memantine 5 mg daily- [facility], memory sx Abilify 2 mg daily-augment to antidepressants currently being used. 10/22 continue current tx plan -pt confused 10/23 Continue trials, regime and plan. 10/24: Continue regime and plan of care. 10/25 Abilify increased up to 5 mg. 10/26 keep on same treatment 10/27/24 continues with many complaints, no clear insight into self- 10/28 continue same treatment 10/29 increase Namenda to 5 mg p.o. b.i.d. and change Depakote to Depakene. Depakote level on 13/02 as per blood work of yesterday 10/30/24 - dc abilify inc olanzapine = continue depakene as he did take 5 capsules this am- prn olanzapine given - this afternoon for behaviors on unit- 10/31/24 wrote for liquid depakote option if refuses capsules, also got prn olanzapine for throwing self on floor 1/6 keep same treatment 11/02 increase Zyprexa to 20 mg p.o. q.h.s. 11/03 keep same treatment. 11/04 discontinue Depakote and start Trileptal 300 mg p.o. b.i.d.. Her healthcare proxy will bring a copy of that we are going to invoke it 11/06 increase olanzapine to 20mg po qhs and 10mg po daily. 11/07 continue tx. 12/04 continue tx. 12/05: no changes 12/06 continue tx. 12/12: continue plan of care 12/13: continue tx 12/19 continue current tx plan 12/25: appearing sedated, more of a falls risk, poorer ability to do ADLs. decrease trileptal dosing from 600 BID to 300 BID for now. 12/26: less sedated than yesterday, continue current mgmt, including 1:1, until attending can see pt in the morning. 12/30: continues less sedated. minimally interactive. continue current mgmt. 12/31: per HCP, not at baseline, over-sedated. begin valium taper. decrease valium 5 TID to 4 TID for now. per HCP and SW, HCP has been affirmed in court. IM back-up orders in place and to be enforced by nursing staff. no aggressive or agitated behaviors. 01/02: Continue current regimen and plans Plan 1. Continue with olanzapine 10 mg p.o. q.a.m. and 20 mg p.o. q.h.s., he refused p.o. he received olanzapine IM. 2. Continue with Valium 5 mg p.o. t.i.d. if he refuses he will get Valium IM. 3. We will encourage compliance. The patient had been noncompliant with sertraline, he remains dysphoric. 4. The patient has a healthcare proxy who was affirmed by court, and they want us to medicate him even if the patient does not want to be compliant. 5. At this moment the patient is slightly over-sedated with EPS but we will keep the same dose of antipsychotics since his violence has improved. Reason for continued inpatient stay Substantial Risk for: med/psych decompensation Time Spent With Patient Time: Total time managing care of this patient today ____ minutes.
[2025-01-02 19:17] VITALS: BP 128/77; PULSE 98; RESP 16; TEMP 36.5; O2SAT 100
[2025-01-02] MEDS: OLANZapine 10 MG TABLET 20 MG PO (19:31)
[2025-01-02] MEDS: Mirtazapine 30 MG TABLET PO (19:31)
[2025-01-03 06:05] LABS: Glucose, Whole Blood 130 mg/dL (60-115)
[2025-01-03 07:55] VITALS: BP 103/64; PULSE 70; RESP 18; TEMP 37.2; O2SAT 97
[2025-01-03] MEDS: diazePAM 2 MG TABLET 4 MG PO ×3 (09:12→20:26)
[2025-01-03] MEDS: lisinopriL 20 MG TABLET PO (09:12)
[2025-01-03] MEDS: OLANZapine ODT 10 MG TAB.RAPDIS TRANSLINGU (09:12)
[2025-01-03] MEDS: metFORMIN HCl ER 500 MG TAB.ER.24H PO (09:12)
[2025-01-03 20:00] VITALS: BP 111/72; PULSE 73; RESP 16; TEMP 36.4; O2SAT 100
[2025-01-03] MEDS: Sertraline HCL 100 MG TABLET PO (20:27)
[2025-01-03] MEDS: OLANZapine 10 MG TABLET 20 MG PO (20:27)
[2025-01-03] MEDS: Mirtazapine 30 MG TABLET PO (20:27)
--- NOTE | 2025-01-03 21:18 | HO.PSYCHPN ---
Subjective Subjective Date of Service: 01/03/25 Reason For Visit: Anxiety, mood disorder, ASD Subjective Notes: Conditional Voluntary Interim History: Patient's chart reviewed case reviewed with nursing staff and treatment team patient with history of autism. Records and plans were reviewed. He has been fairly stable. Medication partially compliant. No complaints or side effects. Vital signs are stable. Eating and sleeping adequately. No changes were made. Less aggressive and previously in his stay Mental Status Exam Mental Status Exam Patient Appearance: Disheveled and Unkempt Patient Orientation: Person Level of Consciousness: Awake Patient Behavior: Guarded, Passive, Suspicious and Pacing Mood Description: Withdrawn Affect Description: Blunted Patient Cognition Impaired: Yes Ability to Follow Directions: Good Speech Pattern: Monotone, Delayed and Long Pauses Hallucinations: None Thought Process: Distracted and Slowed Thinking Thought Content: positive for Poverty of Content and positive for Thought Blocking Judgement: Fair Judgement and Insight: Difficult to assess cognition does not wish to engage Diagnostics Vital Signs (24Hr): Vital Signs - 24 hr 01/03/25 07:55 01/03/25 20:00 Temperature 98.9 F 97.5 F Pulse Rate 70 73 Respiratory Rate 18 16 Blood Pressure 103/64 111/72 Pulse Oximetry 97 100 Oxygen Delivery Method Room Air Room Air BMI result Body Mass Index 26.5 Labs 10/28/24 09:10 12/31/24 09:01 Labs: Laboratory Results - last 48 hr 01/02/25 01/03/25 06:14 06:00 POC Glucose 146 H 130 H Medications Medications Current Medications Acetaminophen (Acetaminophen 325 Mg Tablet) 650 mg PO Q6H PRN PRN Reason: Headache/Pain Mild Scale (1-3) Al Hydroxide/Mg Hydroxide (Magnesium Hydrox/Alum Hydrox 30 Ml Oral.Susp) 30 ml PO Q6H PRN PRN Reason: Heartburn/Nausea Atorvastatin Calcium (Atorvastatin Calcium 80 Mg Tablet) 80 mg PO BEDTIME [facility] Last Admin: 01/03/25 20:30 Dose: Not Given Benztropine Mesylate (Benztropine Mesylate 0.5 Mg Tablet) 1 mg PO BEDTIME [facility] Last Admin: 01/03/25 20:30 Dose: Not Given Diazepam (Diazepam 10 Mg/2 Ml Cartridge) 5 mg IM TID PRN PRN Reason: PO refusal. HOLD FOR SEDATION Last Admin: 12/21/24 10:22 Dose: 5 mg Diazepam (Diazepam 2 Mg Tablet) 4 mg PO TID [facility] Last Admin: 01/03/25 20:26 Dose: 4 mg Empagliflozin (Empagliflozin 10 Mg Tablet) 10 mg PO DAILY [facility] Last Admin: 01/03/25 09:18 Dose: Not Given Furosemide (Furosemide 20 Mg Tablet) 20 mg PO DAILY [facility]; Protocol Last Admin: 01/03/25 09:18 Dose: Not Given Hydroxyzine HCl (Hydroxyzine Hcl 25 Mg Tablet) 25 mg PO Q6H PRN PRN Reason: Anxiety Last Admin: 11/18/24 17:38 Dose: 25 mg Lisinopril (Lisinopril 20 Mg Tablet) 20 mg PO DAILY [facility]; Protocol Last Admin: 01/03/25 09:12 Dose: 20 mg Magnesium Hydroxide (Milk Of Magnesia 30 Ml Oral.Susp) 30 ml PO DAILY PRN PRN Reason: Constipation Memantine (Memantine Hcl 5 Mg Tablet) 5 mg PO BID [facility] Last Admin: 01/03/25 20:30 Dose: Not Given Metformin HCl (Metformin Hcl Er 500 Mg Tab.Er.24h) 500 mg PO BID [facility] Last Admin: 01/03/25 20:30 Dose: Not Given Mirtazapine (Mirtazapine 30 Mg Tablet) 30 mg PO BEDTIME [facility] Last Admin: 01/03/25 20:27 Dose: 30 mg Nicotine (Nicotine 21 Mg Patch.Td24) 21 mg TRANSDERMA DAILY PRN PRN Reason: nicotine cravings Nicotine Polacrilex (Nicotine Polacrilex 2 Mg Gum) 4 mg BUCCAL Q2H PRN PRN Reason: Nicotine Cravings Olanzapine (Olanzapine 10 Mg Tablet) 20 mg PO BEDTIME [facility] Last Admin: 01/03/25 20:27 Dose: 20 mg Olanzapine (Olanzapine Odt 10 Mg Tab.Rapdis) 10 mg TRANSLINGU DAILY [facility] Last Admin: 01/03/25 09:12 Dose: 10 mg Olanzapine (Olanzapine 10 Mg Vial) 10 mg IM BID PRN PRN Reason: PO refusal Last Admin: 12/21/24 10:22 Dose: 10 mg Oxcarbazepine (Oxcarbazepine 300 Mg Tablet) 300 mg PO BID [facility] Last Admin: 01/03/25 20:30 Dose: Not Given Primidone (Primidone 50 Mg Tablet) 50 mg PO BID [facility] Last Admin: 01/03/25 20:31 Dose: Not Given Sertraline HCl (Sertraline Hcl 100 Mg Tablet) 100 mg PO BEDTIME [facility] Last Admin: 01/03/25 20:27 Dose: 100 mg Tamsulosin HCl (Tamsulosin Hcl 0.4 Mg Capsule) 0.4 mg PO DAILY [facility] Last Admin: 01/03/25 09:18 Dose: Not Given Trazodone HCl (Trazodone Hcl 50 Mg Tablet) 50 mg PO BEDTIME MRX1 PRN PRN Reason: Insomnia Last Admin: 11/07/24 22:07 Dose: 50 mg Allergies Allergies Allergy/AdvReac Type Severity Reaction Status Date / Time No Known Allergies Allergy Verified 10/14/24 18:14 [No Known Allergies*] Assessment & Plan Assessment & Plan (1) Mood disorder: Status: Acute Code(s): F39 - Unspecified mood [affective] disorder (2) Autism spectrum disorder: Status: Acute Code(s): F84.0 - Autistic disorder (3) Neurocognitive disorder: Status: Acute Code(s): R41.9 - Unspecified symptoms and signs involving cognitive functions and awareness Plan Humza was admitted for safety and stabilization. His presentation is very similar to his last admission psychiatrically about a year ago and that is why his caregivers wanted to get ahead of things before he decompensated further. Current medications were reviewed and maintained. Contacts to be made with his treaters next week. 10/17: Continue current regimen and plans 10/19: Continue current tx plan and regime. 10/21: Memantine 5 mg daily- [facility], memory sx Abilify 2 mg daily-augment to antidepressants currently being used. 10/22 continue current tx plan -pt confused 10/23 Continue trials, regime and plan. 10/24: Continue regime and plan of care. 10/25 Abilify increased up to 5 mg. 10/26 keep on same treatment 10/27/24 continues with many complaints, no clear insight into self- 10/28 continue same treatment 10/29 increase Namenda to 5 mg p.o. b.i.d. and change Depakote to Depakene. Depakote level on 13/02 as per blood work of yesterday 10/30/24 - dc abilify inc olanzapine = continue depakene as he did take 5 capsules this am- prn olanzapine given - this afternoon for behaviors on unit- 10/31/24 wrote for liquid depakote option if refuses capsules, also got prn olanzapine for throwing self on floor 11/01 keep same treatment 11/02 increase Zyprexa to 20 mg p.o. q.h.s. 11/03 keep same treatment. 11/04 discontinue Depakote and start Trileptal 300 mg p.o. b.i.d.. Her healthcare proxy will bring a copy of that we are going to invoke it 11/06 increase olanzapine to 20mg po qhs and 10mg po daily. 11/07 continue tx. 12/04 continue tx. 12/05: no changes 12/06 continue tx. 12/12: continue plan of care 12/13: continue tx 12/19 continue current tx plan 12/25: appearing sedated, more of a falls risk, poorer ability to do ADLs. decrease trileptal dosing from 600 BID to 300 BID for now. 12/26: less sedated than yesterday, continue current mgmt, including 1:1, until attending can see pt in the morning. 12/30: continues less sedated. minimally interactive. continue current mgmt. 12/31: per HCP, not at baseline, over-sedated. begin valium taper. decrease valium 5 TID to 4 TID for now. per HCP and SW, HCP has been affirmed in court. IM back-up orders in place and to be enforced by nursing staff. no aggressive or agitated behaviors. 01/02: Continue current regimen and plans Plan 1. Continue with olanzapine 10 mg p.o. q.a.m. and 20 mg p.o. q.h.s., he refused p.o. he received olanzapine IM. 2. Continue with Valium 5 mg p.o. t.i.d. if he refuses he will get Valium IM. 3. We will encourage compliance. The patient had been noncompliant with sertraline, he remains dysphoric. 4. The patient has a healthcare proxy who was affirmed by court, and they want us to medicate him even if the patient does not want to be compliant. 5. At this moment the patient is slightly over-sedated with EPS but we will keep the same dose of antipsychotics since his violence has improved. 01/03/25 Continue plan of care Reassess treatment plan which includes IM medication patient has been much less aggressive than he has in the past Unclear discharge plan at this point Reason for continued inpatient stay Substantial Risk for: harm to others and inability to function Time Spent With Patient Time: Total time managing care of this patient today ____ minutes.
[2025-01-04 07:55] VITALS: BP 116/71; PULSE 75; RESP 18; TEMP 36.8; O2SAT 97
[2025-01-04] MEDS: lisinopriL 20 MG TABLET PO (08:33)
[2025-01-04] MEDS: diazePAM 2 MG TABLET 4 MG PO ×3 (08:33→20:04)
[2025-01-04] MEDS: metFORMIN HCl ER 500 MG TAB.ER.24H PO (08:33)
[2025-01-04] MEDS: OLANZapine ODT 10 MG TAB.RAPDIS TRANSLINGU (08:33)
--- NOTE | 2025-01-04 16:15 | HO.PSYCHPN ---
Subjective Subjective Date of Service: 01/04/25 Reason For Visit: Anxiety, mood disorder, ASD Subjective Notes: Conditional Voluntary Healthcare Proxy: Yes Interim History: Patient seen psychiatric follow-up patient has been relatively cooperative intermittently intermittently accepting meds for diabetes hypertension taking Valium olanzapine on a consistent basis has not been overly aggressive Medication Compliance: Intermittent Side effects from medications: No Attending Groups: No Mental Status Exam Mental Status Exam Patient Appearance: Disheveled and Unkempt Patient Orientation: Person Level of Consciousness: Awake Patient Behavior: Guarded, Passive and Pacing Mood Description: Withdrawn Affect Description: Blunted Patient Cognition Impaired: Yes Ability to Follow Directions: Good Speech Pattern: Monotone, Delayed and Long Pauses Hallucinations: None Thought Process: Distracted and Slowed Thinking Thought Content: positive for Poverty of Content and positive for Thought Blocking Judgement: Fair Judgement and Insight: Difficult to assess cognition does not wish to engage Diagnostics Vital Signs (24Hr): Vital Signs - 24 hr 01/03/25 20:00 01/04/25 07:55 Temperature 97.5 F 98.2 F Pulse Rate 73 75 Respiratory Rate 16 18 Blood Pressure 111/72 116/71 Pulse Oximetry 100 97 Oxygen Delivery Method Room Air Room Air BMI result Body Mass Index 26.5 Labs 10/28/24 09:10 12/31/24 09:01 Labs: Laboratory Results - last 48 hr 01/03/25 06:00 POC Glucose 130 H Medications Medications Current Medications Acetaminophen (Acetaminophen 325 Mg Tablet) 650 mg PO Q6H PRN PRN Reason: Headache/Pain Mild Scale (1-3) Al Hydroxide/Mg Hydroxide (Magnesium Hydrox/Alum Hydrox 30 Ml Oral.Susp) 30 ml PO Q6H PRN PRN Reason: Heartburn/Nausea Atorvastatin Calcium (Atorvastatin Calcium 80 Mg Tablet) 80 mg PO BEDTIME [facility] Last Admin: 01/03/25 20:30 Dose: Not Given Benztropine Mesylate (Benztropine Mesylate 0.5 Mg Tablet) 1 mg PO BEDTIME [facility] Last Admin: 01/03/25 20:30 Dose: Not Given Diazepam (Diazepam 10 Mg/2 Ml Cartridge) 5 mg IM TID PRN PRN Reason: PO refusal. HOLD FOR SEDATION Last Admin: 12/21/24 10:22 Dose: 5 mg Diazepam (Diazepam 2 Mg Tablet) 4 mg PO TID [facility] Last Admin: 01/04/25 15:59 Dose: 4 mg Empagliflozin (Empagliflozin 10 Mg Tablet) 10 mg PO DAILY [facility] Last Admin: 01/04/25 08:37 Dose: Not Given Furosemide (Furosemide 20 Mg Tablet) 20 mg PO DAILY [facility]; Protocol Last Admin: 01/04/25 08:37 Dose: Not Given Hydroxyzine HCl (Hydroxyzine Hcl 25 Mg Tablet) 25 mg PO Q6H PRN PRN Reason: Anxiety Last Admin: 11/18/24 17:38 Dose: 25 mg Lisinopril (Lisinopril 20 Mg Tablet) 20 mg PO DAILY [facility]; Protocol Last Admin: 01/04/25 08:33 Dose: 20 mg Magnesium Hydroxide (Milk Of Magnesia 30 Ml Oral.Susp) 30 ml PO DAILY PRN PRN Reason: Constipation Memantine (Memantine Hcl 5 Mg Tablet) 5 mg PO BID [facility] Last Admin: 01/04/25 08:37 Dose: Not Given Metformin HCl (Metformin Hcl Er 500 Mg Tab.Er.24h) 500 mg PO BID [facility] Last Admin: 01/04/25 08:33 Dose: 500 mg Mirtazapine (Mirtazapine 30 Mg Tablet) 30 mg PO BEDTIME [facility] Last Admin: 01/03/25 20:27 Dose: 30 mg Nicotine (Nicotine 21 Mg Patch.Td24) 21 mg TRANSDERMA DAILY PRN PRN Reason: nicotine cravings Nicotine Polacrilex (Nicotine Polacrilex 2 Mg Gum) 4 mg BUCCAL Q2H PRN PRN Reason: Nicotine Cravings Olanzapine (Olanzapine 10 Mg Tablet) 20 mg PO BEDTIME [facility] Last Admin: 01/03/25 20:27 Dose: 20 mg Olanzapine (Olanzapine Odt 10 Mg Tab.Rapdis) 10 mg TRANSLINGU DAILY [facility] Last Admin: 01/04/25 08:33 Dose: 10 mg Olanzapine (Olanzapine 10 Mg Vial) 10 mg IM BID PRN PRN Reason: PO refusal Last Admin: 12/21/24 10:22 Dose: 10 mg Oxcarbazepine (Oxcarbazepine 300 Mg Tablet) 300 mg PO BID [facility] Last Admin: 01/04/25 08:37 Dose: Not Given Primidone (Primidone 50 Mg Tablet) 50 mg PO BID [facility] Last Admin: 01/04/25 08:38 Dose: Not Given Sertraline HCl (Sertraline Hcl 100 Mg Tablet) 100 mg PO BEDTIME [facility] Last Admin: 01/03/25 20:27 Dose: 100 mg Tamsulosin HCl (Tamsulosin Hcl 0.4 Mg Capsule) 0.4 mg PO DAILY [facility] Last Admin: 01/04/25 08:38 Dose: Not Given Trazodone HCl (Trazodone Hcl 50 Mg Tablet) 50 mg PO BEDTIME MRX1 PRN PRN Reason: Insomnia Last Admin: 11/07/24 22:07 Dose: 50 mg Allergies Allergies Allergy/AdvReac Type Severity Reaction Status Date / Time No Known Allergies Allergy Verified 10/14/24 18:14 [No Known Allergies*] Assessment & Plan Assessment & Plan (1) Mood disorder: Status: Acute Code(s): F39 - Unspecified mood [affective] disorder (2) Autism spectrum disorder: Status: Acute Code(s): F84.0 - Autistic disorder (3) Neurocognitive disorder: Status: Acute Code(s): R41.9 - Unspecified symptoms and signs involving cognitive functions and awareness Plan Humza was admitted for safety and stabilization. His presentation is very similar to his last admission psychiatrically about a year ago and that is why his caregivers wanted to get ahead of things before he decompensated further. Current medications were reviewed and maintained. Contacts to be made with his treaters next week. 10/17: Continue current regimen and plans 10/19: Continue current tx plan and regime. 10/21: Memantine 5 mg daily- [facility], memory sx Abilify 2 mg daily-augment to antidepressants currently being used. 10/22 continue current tx plan -pt confused 10/23 Continue trials, regime and plan. 10/24: Continue regime and plan of care. 10/25 Abilify increased up to 5 mg. 10/26 keep on same treatment 10/27/24 continues with many complaints, no clear insight into self- 10/28 continue same treatment 10/29 increase Namenda to 5 mg p.o. b.i.d. and change Depakote to Depakene. Depakote level on 13/02 as per blood work of yesterday 10/30/24 - dc abilify inc olanzapine = continue depakene as he did take 5 capsules this am- prn olanzapine given - this afternoon for behaviors on unit- 10/31/24 wrote for liquid depakote option if refuses capsules, also got prn olanzapine for throwing self on floor 11/01 keep same treatment 11/02 increase Zyprexa to 20 mg p.o. q.h.s. 11/03 keep same treatment. 11/04 discontinue Depakote and start Trileptal 300 mg p.o. b.i.d.. Her healthcare proxy will bring a copy of that we are going to invoke it 11/06 increase olanzapine to 20mg po qhs and 10mg po daily. 11/07 continue tx. 12/04 continue tx. 12/05: no changes 12/06 continue tx. 12/12: continue plan of care 12/13: continue tx 12/19 continue current tx plan 12/25: appearing sedated, more of a falls risk, poorer ability to do ADLs. decrease trileptal dosing from 600 BID to 300 BID for now. 12/26: less sedated than yesterday, continue current mgmt, including 1:1, until attending can see pt in the morning. 12/30: continues less sedated. minimally interactive. continue current mgmt. 12/31: per HCP, not at baseline, over-sedated. begin valium taper. decrease valium 5 TID to 4 TID for now. per HCP and SW, HCP has been affirmed in court. IM back-up orders in place and to be enforced by nursing staff. no aggressive or agitated behaviors. 01/02: Continue current regimen and plans Plan 1. Continue with olanzapine 10 mg p.o. q.a.m. and 20 mg p.o. q.h.s., he refused p.o. he received olanzapine IM. 2. Continue with Valium 5 mg p.o. t.i.d. if he refuses he will get Valium IM. 3. We will encourage compliance. The patient had been noncompliant with sertraline, he remains dysphoric. 4. The patient has a healthcare proxy who was affirmed by court, and they want us to medicate him even if the patient does not want to be compliant. 5. At this moment the patient is slightly over-sedated with EPS but we will keep the same dose of antipsychotics since his violence has improved. 01/03/25 Continue plan of care Reassess treatment plan which includes IM medication patient has been much less aggressive than he has in the past Unclear discharge plan at this point 01/04/2025 Patient taking Valium and olanzapine regularly has IM prescribed if refuses intermittently taking medication for diabetes hypertension Reason for continued inpatient stay Substantial Risk for: harm to others Time Spent With Patient Time: Total time managing care of this patient today ____ minutes.
[2025-01-04 20:00] VITALS: BP 103/55; PULSE 68; RESP 16; TEMP 36.4; O2SAT 100
[2025-01-04] MEDS: Mirtazapine 30 MG TABLET PO (20:05)
[2025-01-04] MEDS: OLANZapine 10 MG TABLET 20 MG PO (20:05)
[2025-01-05 08:48] VITALS: BP 123/73; PULSE 62; RESP 18; TEMP 36.8; O2SAT 98
[2025-01-05] MEDS: metFORMIN HCl ER 500 MG TAB.ER.24H PO (09:12)
[2025-01-05] MEDS: Primidone 50 MG TABLET PO (09:12)
[2025-01-05] MEDS: OXcarbazepine 300 MG TABLET PO (09:12)
[2025-01-05] MEDS: Empagliflozin 10 MG TABLET PO (09:12)
[2025-01-05] MEDS: OLANZapine ODT 10 MG TAB.RAPDIS TRANSLINGU (09:12)
[2025-01-05] MEDS: lisinopriL 20 MG TABLET PO (09:12)
[2025-01-05] MEDS: diazePAM 2 MG TABLET 4 MG PO ×3 (09:12→20:22)
[2025-01-05] MEDS: Milk of Magnesia 30 ML ORAL.SUSP PO (09:27)
[2025-01-05 20:00] VITALS: BP 112/69; PULSE 74; RESP 16; TEMP 36.6; O2SAT 99
[2025-01-05] MEDS: OLANZapine 10 MG TABLET 20 MG PO (20:21)
[2025-01-05] MEDS: Sertraline HCL 100 MG TABLET PO (20:22)
[2025-01-05] MEDS: Mirtazapine 30 MG TABLET PO (20:22)
--- NOTE | 2025-01-05 21:46 | HO.PSYCHPN ---
Subjective Subjective Date of Service: 01/05/25 Reason For Visit: Anxiety, mood disorder, ASD Subjective Notes: Conditional Voluntary Healthcare Proxy: Yes Interim History: Patient seen psychiatric follow-up patient has been relatively cooperative intermittently intermittently accepting meds for diabetes hypertension taking Valium olanzapine on a consistent basis has not been overly aggressive Medication Compliance: Intermittent Side effects from medications: No Attending Groups: No Mental Status Exam Mental Status Exam Patient Appearance: Disheveled Patient Orientation: Person Level of Consciousness: Awake Patient Behavior: Guarded, Passive and Pacing Mood Description: Withdrawn Affect Description: Blunted Patient Cognition Impaired: Yes Ability to Follow Directions: Good Speech Pattern: Monotone, Delayed and Long Pauses Hallucinations: None Thought Process: Distracted and Slowed Thinking Thought Content: positive for Poverty of Content and positive for Thought Blocking Judgement: Fair Judgement and Insight: Difficult to assess cognition does not wish to engage ongoing shakes head when asked about self harm Diagnostics Vital Signs (24Hr): Vital Signs - 24 hr 01/05/25 08:48 Temperature 98.2 F Pulse Rate 62 Respiratory Rate 18 Blood Pressure 123/73 Pulse Oximetry 98 Oxygen Delivery Method Room Air BMI result Body Mass Index 26.5 Labs 10/28/24 09:10 12/31/24 09:01 Medications Medications Current Medications Acetaminophen (Acetaminophen 325 Mg Tablet) 650 mg PO Q6H PRN PRN Reason: Headache/Pain Mild Scale (1-3) Al Hydroxide/Mg Hydroxide (Magnesium Hydrox/Alum Hydrox 30 Ml Oral.Susp) 30 ml PO Q6H PRN PRN Reason: Heartburn/Nausea Atorvastatin Calcium (Atorvastatin Calcium 80 Mg Tablet) 80 mg PO BEDTIME [facility] Last Admin: 01/05/25 20:26 Dose: Not Given Benztropine Mesylate (Benztropine Mesylate 0.5 Mg Tablet) 1 mg PO BEDTIME [facility] Last Admin: 01/05/25 20:27 Dose: Not Given Diazepam (Diazepam 10 Mg/2 Ml Cartridge) 5 mg IM TID PRN PRN Reason: PO refusal. HOLD FOR SEDATION Last Admin: 12/21/24 10:22 Dose: 5 mg Diazepam (Diazepam 2 Mg Tablet) 4 mg PO TID [facility] Last Admin: 01/05/25 20:22 Dose: 4 mg Empagliflozin (Empagliflozin 10 Mg Tablet) 10 mg PO DAILY [facility] Last Admin: 01/05/25 09:12 Dose: 10 mg Furosemide (Furosemide 20 Mg Tablet) 20 mg PO DAILY [facility]; Protocol Last Admin: 01/05/25 09:18 Dose: Not Given Hydroxyzine HCl (Hydroxyzine Hcl 25 Mg Tablet) 25 mg PO Q6H PRN PRN Reason: Anxiety Last Admin: 11/18/24 17:38 Dose: 25 mg Lisinopril (Lisinopril 20 Mg Tablet) 20 mg PO DAILY [facility]; Protocol Last Admin: 01/05/25 09:12 Dose: 20 mg Magnesium Hydroxide (Milk Of Magnesia 30 Ml Oral.Susp) 30 ml PO DAILY PRN PRN Reason: Constipation Last Admin: 01/05/25 09:27 Dose: 30 ml Memantine (Memantine Hcl 5 Mg Tablet) 5 mg PO BID [facility] Last Admin: 01/05/25 20:27 Dose: Not Given Metformin HCl (Metformin Hcl Er 500 Mg Tab.Er.24h) 500 mg PO BID [facility] Last Admin: 01/05/25 20:27 Dose: Not Given Mirtazapine (Mirtazapine 30 Mg Tablet) 30 mg PO BEDTIME [facility] Last Admin: 01/05/25 20:22 Dose: 30 mg Nicotine (Nicotine 21 Mg Patch.Td24) 21 mg TRANSDERMA DAILY PRN PRN Reason: nicotine cravings Nicotine Polacrilex (Nicotine Polacrilex 2 Mg Gum) 4 mg BUCCAL Q2H PRN PRN Reason: Nicotine Cravings Olanzapine (Olanzapine 10 Mg Tablet) 20 mg PO BEDTIME [facility] Last Admin: 01/05/25 20:21 Dose: 20 mg Olanzapine (Olanzapine Odt 10 Mg Tab.Rapdis) 10 mg TRANSLINGU DAILY [facility] Last Admin: 01/05/25 09:12 Dose: 10 mg Olanzapine (Olanzapine 10 Mg Vial) 10 mg IM BID PRN PRN Reason: PO refusal Last Admin: 12/21/24 10:22 Dose: 10 mg Oxcarbazepine (Oxcarbazepine 300 Mg Tablet) 300 mg PO BID [facility] Last Admin: 01/05/25 20:27 Dose: Not Given Primidone (Primidone 50 Mg Tablet) 50 mg PO BID [facility] Last Admin: 01/05/25 20:27 Dose: Not Given Sertraline HCl (Sertraline Hcl 100 Mg Tablet) 100 mg PO BEDTIME [facility] Last Admin: 01/05/25 20:22 Dose: 100 mg Tamsulosin HCl (Tamsulosin Hcl 0.4 Mg Capsule) 0.4 mg PO DAILY [facility] Last Admin: 01/05/25 09:18 Dose: Not Given Trazodone HCl (Trazodone Hcl 50 Mg Tablet) 50 mg PO BEDTIME MRX1 PRN PRN Reason: Insomnia Last Admin: 11/07/24 22:07 Dose: 50 mg Allergies Allergies Allergy/AdvReac Type Severity Reaction Status Date / Time No Known Allergies Allergy Verified 10/14/24 18:14 [No Known Allergies*] Assessment & Plan Assessment & Plan (1) Mood disorder: Status: Acute Code(s): F39 - Unspecified mood [affective] disorder (2) Autism spectrum disorder: Status: Acute Code(s): F84.0 - Autistic disorder (3) Neurocognitive disorder: Status: Acute Code(s): R41.9 - Unspecified symptoms and signs involving cognitive functions and awareness Plan Humza was admitted for safety and stabilization. His presentation is very similar to his last admission psychiatrically about a year ago and that is why his caregivers wanted to get ahead of things before he decompensated further. Current medications were reviewed and maintained. Contacts to be made with his treaters next week. 10/17: Continue current regimen and plans 10/19: Continue current tx plan and regime. 10/21: Memantine 5 mg daily- [facility], memory sx Abilify 2 mg daily-augment to antidepressants currently being used. 10/22 continue current tx plan -pt confused 10/23 Continue trials, regime and plan. 10/24: Continue regime and plan of care. 10/25 Abilify increased up to 5 mg. 10/26 keep on same treatment 10/27/24 continues with many complaints, no clear insight into self- 10/28 continue same treatment 10/29 increase Namenda to 5 mg p.o. b.i.d. and change Depakote to Depakene. Depakote level on 13/02 as per blood work of yesterday 10/30/24 - [facility] olanzapine = continue depakene as he did take 5 capsules this am- prn olanzapine given - this afternoon for behaviors on unit- 10/31/24 wrote for liquid depakote option if refuses capsules, also got prn olanzapine for throwing self on floor 11/01 keep same treatment 11/02 increase Zyprexa to 20 mg p.o. q.h.s. 11/03 keep same treatment. 11/04 discontinue Depakote and start Trileptal 300 mg p.o. b.i.d.. Her healthcare proxy will bring a copy of that we are going to invoke it 11/06 increase olanzapine to 20mg po qhs and 10mg po daily. 11/07 continue tx. 12/04 continue tx. 12/05: no changes 12/06 continue tx. 12/12: continue plan of care 12/13: continue tx 12/19 continue current tx plan 12/25: appearing sedated, more of a falls risk, poorer ability to do ADLs. decrease trileptal dosing from 600 BID to 300 BID for now. 12/26: less sedated than yesterday, continue current mgmt, including 1:1, until attending can see pt in the morning. 12/30: continues less sedated. minimally interactive. continue current mgmt. 12/31: per HCP, not at baseline, over-sedated. begin valium taper. decrease valium 5 TID to 4 TID for now. per HCP and SW, HCP has been affirmed in court. IM back-up orders in place and to be enforced by nursing staff. no aggressive or agitated behaviors. 01/02: Continue current regimen and plans Plan 1. Continue with olanzapine 10 mg p.o. q.a.m. and 20 mg p.o. q.h.s., he refused p.o. he received olanzapine IM. 2. Continue with Valium 5 mg p.o. t.i.d. if he refuses he will get Valium IM. 3. We will encourage compliance. The patient had been noncompliant with sertraline, he remains dysphoric. 4. The patient has a healthcare proxy who was affirmed by court, and they want us to medicate him even if the patient does not want to be compliant. 5. At this moment the patient is slightly over-sedated with EPS but we will keep the same dose of antipsychotics since his violence has improved. 01/03/25 Continue plan of care Reassess treatment plan which includes IM medication patient has been much less aggressive than he has in the past Unclear discharge plan at this point 01/04/2025 Patient taking Valium and olanzapine regularly has IM prescribed if refuses intermittently taking medication for diabetes hypertension 01/05/25 Cont medicationhas been stabilizing try and d/c meds that are not esential simplify regimen Reason for continued inpatient stay Substantial Risk for: inability to function, rapid decompensation and med/psych decompensation Time Spent With Patient Time: Total time managing care of this patient today ____ minutes.
[2025-01-06 10:30] VITALS: BP 121/65; PULSE 76; RESP 18; TEMP 37.1; O2SAT 98
[2025-01-06] MEDS: diazePAM 2 MG TABLET 4 MG PO ×3 (10:31→20:02)
[2025-01-06] MEDS: OLANZapine ODT 10 MG TAB.RAPDIS TRANSLINGU (10:31)
[2025-01-06] MEDS: OXcarbazepine 300 MG TABLET PO (10:31)
[2025-01-06] MEDS: metFORMIN HCl ER 500 MG TAB.ER.24H PO (10:34)
[2025-01-06 11:02] VITALS: BMI 26.6
[2025-01-06 20:00] VITALS: BP 118/75; PULSE 67; RESP 16; TEMP 36.5; O2SAT 94
[2025-01-06] MEDS: OLANZapine 10 MG TABLET 20 MG PO (20:02)
[2025-01-06] MEDS: Mirtazapine 30 MG TABLET PO (20:02)
[2025-01-06] MEDS: Sertraline HCL 100 MG TABLET PO (20:02)
[2025-01-07 08:34] VITALS: BP 154/96; PULSE 81; RESP 18; TEMP 36.4; O2SAT 100
[2025-01-07] MEDS: OLANZapine ODT 10 MG TAB.RAPDIS TRANSLINGU (08:45)
[2025-01-07] MEDS: diazePAM 2 MG TABLET 4 MG PO ×3 (08:45→20:50)
[2025-01-07] MEDS: OXcarbazepine 300 MG TABLET PO (08:46)
[2025-01-07] MEDS: metFORMIN HCl ER 500 MG TAB.ER.24H PO (08:46)
[2025-01-07] MEDS: lisinopriL 20 MG TABLET PO (08:47)
--- NOTE | 2025-01-07 09:30 | HO.PSYCHPN ---
Subjective Subjective Date of Service: 01/07/25 Reason For Visit: Anxiety, mood disorder, ASD Subjective Notes: Conditional Voluntary Healthcare Proxy: Yes Interim History: Patient seen psychiatric follow-up patient has been relatively cooperative intermittently intermittently accepting meds for diabetes hypertension taking Valium olanzapine on a consistent basis has not been overly aggressive sitting quietly at times Medication Compliance: Intermittent Side effects from medications: No Attending Groups: No Mental Status Exam Mental Status Exam Patient Appearance: Disheveled Patient Orientation: Person Level of Consciousness: Awake Patient Behavior: Guarded, Passive and Pacing Mood Description: Withdrawn Affect Description: Blunted Patient Cognition Impaired: Yes Ability to Follow Directions: Good Speech Pattern: Monotone, Delayed and Long Pauses Hallucinations: None Thought Process: Distracted and Slowed Thinking Thought Content: positive for Poverty of Content and positive for Thought Blocking Judgement: Fair Judgement and Insight: Difficult to assess cognition does not wish to engage ongoing shakes head when asked about self harm Diagnostics Vital Signs (24Hr): Vital Signs - 24 hr 01/06/25 10:30 01/06/25 20:00 01/07/25 08:34 Temperature 98.7 F 97.7 F 97.5 F Pulse Rate 76 67 81 Respiratory Rate 18 16 18 Blood Pressure 121/65 118/75 154/96 H Pulse Oximetry 98 94 100 Oxygen Delivery Method Room Air Room Air Room Air BMI result Body Mass Index 26.6 Labs 10/28/24 09:10 12/31/24 09:01 Medications Medications Current Medications Acetaminophen (Acetaminophen 325 Mg Tablet) 650 mg PO Q6H PRN PRN Reason: Headache/Pain Mild Scale (1-3) Al Hydroxide/Mg Hydroxide (Magnesium Hydrox/Alum Hydrox 30 Ml Oral.Susp) 30 ml PO Q6H PRN PRN Reason: Heartburn/Nausea Atorvastatin Calcium (Atorvastatin Calcium 80 Mg Tablet) 80 mg PO BEDTIME [facility] Last Admin: 01/06/25 20:05 Dose: Not Given Benztropine Mesylate (Benztropine Mesylate 0.5 Mg Tablet) 1 mg PO BEDTIME [facility] Last Admin: 01/06/25 20:05 Dose: Not Given Diazepam (Diazepam 10 Mg/2 Ml Cartridge) 5 mg IM TID PRN PRN Reason: PO refusal. HOLD FOR SEDATION Last Admin: 12/21/24 10:22 Dose: 5 mg Diazepam (Diazepam 2 Mg Tablet) 4 mg PO TID [facility] Last Admin: 01/07/25 08:45 Dose: 4 mg Empagliflozin (Empagliflozin 10 Mg Tablet) 10 mg PO DAILY [facility] Last Admin: 01/07/25 08:48 Dose: Not Given Furosemide (Furosemide 20 Mg Tablet) 20 mg PO DAILY [facility]; Protocol Last Admin: 01/07/25 08:48 Dose: Not Given Hydroxyzine HCl (Hydroxyzine Hcl 25 Mg Tablet) 25 mg PO Q6H PRN PRN Reason: Anxiety Last Admin: 11/18/24 17:38 Dose: 25 mg Lisinopril (Lisinopril 20 Mg Tablet) 20 mg PO DAILY [facility]; Protocol Last Admin: 01/07/25 08:47 Dose: 20 mg Magnesium Hydroxide (Milk Of Magnesia 30 Ml Oral.Susp) 30 ml PO DAILY PRN PRN Reason: Constipation Last Admin: 01/05/25 09:27 Dose: 30 ml Memantine (Memantine Hcl 5 Mg Tablet) 5 mg PO BID [facility] Last Admin: 01/07/25 08:48 Dose: Not Given Metformin HCl (Metformin Hcl Er 500 Mg Tab.Er.24h) 500 mg PO BID [facility] Last Admin: 01/07/25 08:46 Dose: 500 mg Mirtazapine (Mirtazapine 30 Mg Tablet) 30 mg PO BEDTIME [facility] Last Admin: 01/06/25 20:02 Dose: 30 mg Nicotine (Nicotine 21 Mg Patch.Td24) 21 mg TRANSDERMA DAILY PRN PRN Reason: nicotine cravings Nicotine Polacrilex (Nicotine Polacrilex 2 Mg Gum) 4 mg BUCCAL Q2H PRN PRN Reason: Nicotine Cravings Olanzapine (Olanzapine 10 Mg Tablet) 20 mg PO BEDTIME [facility] Last Admin: 01/06/25 20:02 Dose: 20 mg Olanzapine (Olanzapine Odt 10 Mg Tab.Rapdis) 10 mg TRANSLINGU DAILY [facility] Last Admin: 01/07/25 08:45 Dose: 10 mg Olanzapine (Olanzapine 10 Mg Vial) 10 mg IM BID PRN PRN Reason: PO refusal Last Admin: 12/21/24 10:22 Dose: 10 mg Oxcarbazepine (Oxcarbazepine 300 Mg Tablet) 300 mg PO BID [facility] Last Admin: 01/07/25 08:46 Dose: 300 mg Primidone (Primidone 50 Mg Tablet) 50 mg PO BID [facility] Last Admin: 01/07/25 08:48 Dose: Not Given Sertraline HCl (Sertraline Hcl 100 Mg Tablet) 100 mg PO BEDTIME [facility] Last Admin: 01/06/25 20:02 Dose: 100 mg Tamsulosin HCl (Tamsulosin Hcl 0.4 Mg Capsule) 0.4 mg PO DAILY [facility] Last Admin: 01/07/25 08:48 Dose: Not Given Trazodone HCl (Trazodone Hcl 50 Mg Tablet) 50 mg PO BEDTIME MRX1 PRN PRN Reason: Insomnia Last Admin: 11/07/24 22:07 Dose: 50 mg Allergies Allergies Allergy/AdvReac Type Severity Reaction Status Date / Time No Known Allergies Allergy Verified 10/14/24 18:14 [No Known Allergies*] Assessment & Plan Assessment & Plan (1) Mood disorder: Status: Acute Code(s): F39 - Unspecified mood [affective] disorder (2) Autism spectrum disorder: Status: Acute Code(s): F84.0 - Autistic disorder (3) Neurocognitive disorder: Status: Acute Code(s): R41.9 - Unspecified symptoms and signs involving cognitive functions and awareness Plan Humza was admitted for safety and stabilization. His presentation is very similar to his last admission psychiatrically about a year ago and that is why his caregivers wanted to get ahead of things before he decompensated further. Current medications were reviewed and maintained. Contacts to be made with his treaters next week. 10/17: Continue current regimen and plans 10/19: Continue current tx plan and regime. 10/21: Memantine 5 mg daily- [facility], memory sx Abilify 2 mg daily-augment to antidepressants currently being used. 10/22 continue current tx plan -pt confused 10/23 Continue trials, regime and plan. 10/24: Continue regime and plan of care. 10/25 Abilify increased up to 5 mg. 10/26 keep on same treatment 10/27/24 continues with many complaints, no clear insight into self- 10/28 continue same treatment 10/29 increase Namenda to 5 mg p.o. b.i.d. and change Depakote to Depakene. Depakote level on 13/02 as per blood work of yesterday 10/30/24 - dc [facility] inc olanzapine = continue depakene as he did take 5 capsules this am- prn olanzapine given - this afternoon for behaviors on unit- 10/31/24 wrote for liquid depakote option if refuses capsules, also got prn olanzapine for throwing self on floor 11/01 keep same treatment 11/02 increase Zyprexa to 20 mg p.o. q.h.s. 11/03 keep same treatment. 11/04 discontinue Depakote and start Trileptal 300 mg p.o. b.i.d.. Her healthcare proxy will bring a copy of that we are going to invoke it 11/06 increase olanzapine to 20mg po qhs and 10mg po daily. 11/07 continue tx. 12/04 continue tx. 12/05: no changes 12/06 continue tx. 12/12: continue plan of care 12/13: continue tx 12/19 continue current tx plan 12/25: appearing sedated, more of a falls risk, poorer ability to do ADLs. decrease trileptal dosing from 600 BID to 300 BID for now. 12/26: less sedated than yesterday, continue current mgmt, including 1:1, until attending can see pt in the morning. 12/30: continues less sedated. minimally interactive. continue current mgmt. 12/31: per HCP, not at baseline, over-sedated. begin valium taper. decrease valium 5 TID to 4 TID for now. per HCP and SW, HCP has been affirmed in court. IM back-up orders in place and to be enforced by nursing staff. no aggressive or agitated behaviors. 01/02: Continue current regimen and plans Plan 1. Continue with olanzapine 10 mg p.o. q.a.m. and 20 mg p.o. q.h.s., he refused p.o. he received olanzapine IM. 2. Continue with Valium 5 mg p.o. t.i.d. if he refuses he will get Valium IM. 3. We will encourage compliance. The patient had been noncompliant with sertraline, he remains dysphoric. 4. The patient has a healthcare proxy who was affirmed by court, and they want us to medicate him even if the patient does not want to be compliant. 5. At this moment the patient is slightly over-sedated with EPS but we will keep the same dose of antipsychotics since his violence has improved. 01/03/25 Continue plan of care Reassess treatment plan which includes IM medication patient has been much less aggressive than he has in the past Unclear discharge plan at this point 01/04/2025 Patient taking Valium and olanzapine regularly has IM prescribed if refuses intermittently taking medication for diabetes hypertension 01/05/25 Cont medicationhas been stabilizing try and d/c meds that are not esential simplify regimen 01/06/25 stop namenda monitor sugar / bp encourage med acceptance cont valium olanzapine Reason for continued inpatient stay Substantial Risk for: harm to others, inability to function and rapid decompensation Time Spent With Patient Time: Total time managing care of this patient today ____ minutes.
[2025-01-07 20:00] VITALS: BP 97/67; PULSE 72; RESP 16; TEMP 36.1; O2SAT 97
[2025-01-07] MEDS: OLANZapine 10 MG TABLET 20 MG PO (20:50)
[2025-01-07] MEDS: Mirtazapine 30 MG TABLET PO (20:50)
[2025-01-07] MEDS: Sertraline HCL 100 MG TABLET PO (20:50)
[2025-01-08 08:00] VITALS: BP 124/68; PULSE 79; RESP 16; TEMP 37; O2SAT 98
[2025-01-08] MEDS: OLANZapine ODT 10 MG TAB.RAPDIS TRANSLINGU (08:20)
[2025-01-08] MEDS: metFORMIN HCl ER 500 MG TAB.ER.24H PO (08:20)
[2025-01-08] MEDS: diazePAM 2 MG TABLET 4 MG PO ×3 (08:20→20:30)
[2025-01-08] MEDS: lisinopriL 20 MG TABLET PO (08:20)
[2025-01-08] MEDS: OXcarbazepine 300 MG TABLET PO (08:20)
--- NOTE | 2025-01-08 11:05 | P.PNPSI_ITS ---
Subjective Subjective Date of Service: 01/08/25 Reason For Visit: Anxiety, mood disorder, ASD Subjective Notes: Govea Order Interim History: Patient seen psychiatric follow-up. Patient seen in the milieu on an idiosyncratic and behavior has certain mannerisms will only take 5 pills. Discussed with patient trying to discontinue discontinue some medication as tolerated has been generally calm and cooperative Mental Status Exam Mental Status Exam Patient Appearance: Disheveled Patient Orientation: Person Level of Consciousness: Awake Patient Behavior: Guarded, Passive and Pacing Mood Description: Withdrawn Affect Description: Blunted Patient Cognition Impaired: Yes Ability to Follow Directions: Good Speech Pattern: Monotone, Delayed and Long Pauses Hallucinations: None Thought Process: Distracted and Slowed Thinking Thought Content: positive for Poverty of Content and positive for Thought Blocking Judgement: Fair Judgement and Insight: Difficult to assess cognition does not wish to engage ongoing shakes head when asked about self harm Diagnostics Vital Signs (24Hr): Vital Signs - 24 hr 01/07/25 20:00 01/08/25 08:00 Temperature 96.9 F 98.6 F Pulse Rate 72 79 Respiratory Rate 16 16 Blood Pressure 97/67 124/68 Pulse Oximetry 97 98 Oxygen Delivery Method Room Air Room Air BMI result Body Mass Index 26.6 Labs 10/28/24 09:10 12/31/24 09:01 Medications Medications Current Medications Acetaminophen (Acetaminophen 325 Mg Tablet) 650 mg PO Q6H PRN PRN Reason: Headache/Pain Mild Scale (1-3) Al Hydroxide/Mg Hydroxide (Magnesium Hydrox/Alum Hydrox 30 Ml Oral.Susp) 30 ml PO Q6H PRN PRN Reason: Heartburn/Nausea Atorvastatin Calcium (Atorvastatin Calcium 80 Mg Tablet) 80 mg PO BEDTIME [facility] Last Admin: 01/07/25 20:53 Dose: Not Given Benztropine Mesylate (Benztropine Mesylate 0.5 Mg Tablet) 1 mg PO BEDTIME [facility] Last Admin: 01/07/25 20:53 Dose: Not Given Diazepam (Diazepam 10 Mg/2 Ml Cartridge) 5 mg IM TID PRN PRN Reason: PO refusal. HOLD FOR SEDATION Last Admin: 12/21/24 10:22 Dose: 5 mg Diazepam (Diazepam 2 Mg Tablet) 4 mg PO TID [facility] Last Admin: 01/08/25 08:20 Dose: 4 mg Empagliflozin (Empagliflozin 10 Mg Tablet) 10 mg PO DAILY [facility] Last Admin: 01/08/25 08:24 Dose: Not Given Furosemide (Furosemide 20 Mg Tablet) 20 mg PO DAILY [facility]; Protocol Last Admin: 01/08/25 08:24 Dose: Not Given Hydroxyzine HCl (Hydroxyzine Hcl 25 Mg Tablet) 25 mg PO Q6H PRN PRN Reason: Anxiety Last Admin: 11/18/24 17:38 Dose: 25 mg Lisinopril (Lisinopril 20 Mg Tablet) 20 mg PO DAILY [facility]; Protocol Last Admin: 01/08/25 08:20 Dose: 20 mg Magnesium Hydroxide (Milk Of Magnesia 30 Ml Oral.Susp) 30 ml PO DAILY PRN PRN Reason: Constipation Last Admin: 01/05/25 09:27 Dose: 30 ml Metformin HCl (Metformin Hcl Er 500 Mg Tab.Er.24h) 500 mg PO BID [facility] Last Admin: 01/08/25 08:20 Dose: 500 mg Mirtazapine (Mirtazapine 30 Mg Tablet) 30 mg PO BEDTIME [facility] Last Admin: 01/07/25 20:50 Dose: 30 mg Nicotine (Nicotine 21 Mg Patch.Td24) 21 mg TRANSDERMA DAILY PRN PRN Reason: nicotine cravings Nicotine Polacrilex (Nicotine Polacrilex 2 Mg Gum) 4 mg BUCCAL Q2H PRN PRN Reason: Nicotine Cravings Olanzapine (Olanzapine 10 Mg Tablet) 20 mg PO BEDTIME [facility] Last Admin: 01/07/25 20:50 Dose: 20 mg Olanzapine (Olanzapine Odt 10 Mg Tab.Rapdis) 10 mg TRANSLINGU DAILY [facility] Last Admin: 01/08/25 08:20 Dose: 10 mg Olanzapine (Olanzapine 10 Mg Vial) 10 mg IM BID PRN PRN Reason: PO refusal Last Admin: 12/21/24 10:22 Dose: 10 mg Oxcarbazepine (Oxcarbazepine 300 Mg Tablet) 300 mg PO BID [facility] Last Admin: 01/08/25 08:20 Dose: 300 mg Primidone (Primidone 50 Mg Tablet) 50 mg PO BID [facility] Last Admin: 01/08/25 08:25 Dose: Not Given Sertraline HCl (Sertraline Hcl 100 Mg Tablet) 100 mg PO BEDTIME [facility] Last Admin: 01/07/25 20:50 Dose: 100 mg Trazodone HCl (Trazodone Hcl 50 Mg Tablet) 50 mg PO BEDTIME MRX1 PRN PRN Reason: Insomnia Last Admin: 11/07/24 22:07 Dose: 50 mg Allergies Allergies Allergy/AdvReac Type Severity Reaction Status Date / Time No Known Allergies Allergy Verified 10/14/24 18:14 [No Known Allergies*] Assessment & Plan Assessment & Plan (1) Mood disorder: Status: Acute Code(s): F39 - Unspecified mood [affective] disorder (2) Autism spectrum disorder: Status: Acute Code(s): F84.0 - Autistic disorder (3) Neurocognitive disorder: Status: Acute Code(s): R41.9 - Unspecified symptoms and signs involving cognitive functions and awareness Plan Humza was admitted for safety and stabilization. His presentation is very similar to his last admission psychiatrically about a year ago and that is why his caregivers wanted to get ahead of things before he decompensated further. Current medications were reviewed and maintained. Contacts to be made with his treaters next week. 10/17: Continue current regimen and plans 10/19: Continue current tx plan and regime. 10/21: Memantine 5 mg daily- [facility], memory sx Abilify 2 mg daily-augment to antidepressants currently being used. 10/22 continue current tx plan -pt confused 10/23 Continue trials, regime and plan. 10/24: Continue regime and plan of care. 10/25 Abilify increased up to 5 mg. 10/26 keep on same treatment 10/27/24 continues with many complaints, no clear insight into self- 10/28 continue same treatment 10/29 increase Namenda to 5 mg p.o. b.i.d. and change Depakote to Depakene. Depakote level on 13/02 as per blood work of yesterday 10/30/24 - dc [facility] inc olanzapine = continue depakene as he did take 5 capsules this am- prn olanzapine given - this afternoon for behaviors on unit- 10/31/24 wrote for liquid depakote option if refuses capsules, also got prn olanzapine for throwing self on floor 11/01 keep same treatment 11/02 increase Zyprexa to 20 mg p.o. q.h.s. 11/03 keep same treatment. 11/04 discontinue Depakote and start Trileptal 300 mg p.o. b.i.d.. Her healthcare proxy will bring a copy of that we are going to invoke it 11/06 increase olanzapine to 20mg po qhs and 10mg po daily. 11/07 continue tx. 12/04 continue tx. 12/05: no changes 12/06 continue tx. 12/12: continue plan of care 12/13: continue tx 12/19 continue current tx plan 12/25: appearing sedated, more of a falls risk, poorer ability to do ADLs. decrease trileptal dosing from 600 BID to 300 BID for now. 12/26: less sedated than yesterday, continue current mgmt, including 1:1, until attending can see pt in the morning. 12/30: continues less sedated. minimally interactive. continue current mgmt. 12/31: per HCP, not at baseline, over-sedated. begin valium taper. decrease valium 5 TID to 4 TID for now. per HCP and SW, HCP has been affirmed in court. IM back-up orders in place and to be enforced by nursing staff. no aggressive or agitated behaviors. 01/02: Continue current regimen and plans Plan 1. Continue with olanzapine 10 mg p.o. q.a.m. and 20 mg p.o. q.h.s., he refused p.o. he received olanzapine IM. 2. Continue with Valium 5 mg p.o. t.i.d. if he refuses he will get Valium IM. 3. We will encourage compliance. The patient had been noncompliant with sertraline, he remains dysphoric. 4. The patient has a healthcare proxy who was affirmed by court, and they want us to medicate him even if the patient does not want to be compliant. 5. At this moment the patient is slightly over-sedated with EPS but we will keep the same dose of antipsychotics since his violence has improved. 01/03/25 Continue plan of care Reassess treatment plan which includes IM medication patient has been much less aggressive than he has in the past Unclear discharge plan at this point 01/04/2025 Patient taking Valium and olanzapine regularly has IM prescribed if refuses intermittently taking medication for diabetes hypertension 01/05/25 Cont medicationhas been stabilizing try and d/c meds that are not esential simplify regimen 01/06/25 stop namenda monitor sugar / bp encourage med acceptance cont valium olanzapine 01/08/2025 Continue olanzapine Valium metformin try and taper and simplify medication as tolerated discharge planning monitor response to change in medication Reason for continued inpatient stay Substantial Risk for: inability to function, rapid decompensation and med/psych decompensation Time Spent With Patient Time: Total time managing care of this patient today ____ minutes.
[2025-01-08 20:00] VITALS: BP 124/82; PULSE 76; RESP 16; TEMP 36.3; O2SAT 98
[2025-01-08] MEDS: Mirtazapine 30 MG TABLET PO (20:30)
[2025-01-08] MEDS: Sertraline HCL 100 MG TABLET PO (20:31)
[2025-01-08] MEDS: OLANZapine 10 MG TABLET 20 MG PO (20:31)
[2025-01-09 08:00] VITALS: BP 128/78; PULSE 82; RESP 16; TEMP 37; O2SAT 98
[2025-01-09] MEDS: OLANZapine ODT 10 MG TAB.RAPDIS TRANSLINGU (08:08)
[2025-01-09] MEDS: lisinopriL 20 MG TABLET PO (08:08)
[2025-01-09] MEDS: diazePAM 2 MG TABLET 4 MG PO ×3 (08:08→21:09)
[2025-01-09] MEDS: metFORMIN HCl ER 500 MG TAB.ER.24H PO (08:08)
[2025-01-09 20:00] VITALS: BP 91/65; PULSE 66; RESP 16; TEMP 36.6; O2SAT 98
[2025-01-09] MEDS: OLANZapine 10 MG TABLET 20 MG PO (21:09)
[2025-01-09] MEDS: Sertraline HCL 100 MG TABLET PO (21:09)
[2025-01-09] MEDS: Mirtazapine 30 MG TABLET PO (21:09)
[2025-01-09] MEDS: OXcarbazepine 300 MG TABLET PO (21:09)
--- NOTE | 2025-01-09 23:26 | P.PNPSI_ITS ---
Subjective Subjective Date of Service: 01/09/25 Reason For Visit: Anxiety, mood disorder, ASD Subjective Notes: Govea Order and Conditional Voluntary Healthcare Proxy: Yes Interim History: Patient seen psychiatric follow-up patient has been relatively cooperative intermittently intermittently accepting meds for diabetes hypertension taking Valium olanzapine on a consistent basis has not been overly aggressive sitting quietly at times cannot take in info regarding medication easily . Medication Compliance: Intermittent Side effects from medications: No Attending Groups: No Mental Status Exam Mental Status Exam Patient Appearance: Disheveled Patient Orientation: Person Level of Consciousness: Awake Patient Behavior: Guarded and Passive Mood Description: Withdrawn Affect Description: Blunted Patient Cognition Impaired: Yes Ability to Follow Directions: Good Speech Pattern: Monotone, Delayed and Long Pauses Hallucinations: None Thought Process: Distracted and Slowed Thinking Thought Content: positive for Poverty of Content and positive for Thought Blocking Judgement: Fair Judgement and Insight: has been more accepting of medication Diagnostics Vital Signs (24Hr): Vital Signs - 24 hr 01/09/25 08:00 01/09/25 20:00 Temperature 98.6 F 97.8 F Pulse Rate 82 66 Respiratory Rate 16 16 Blood Pressure 128/78 91/65 Pulse Oximetry 98 98 Oxygen Delivery Method Room Air Room Air BMI result Body Mass Index 26.6 Labs 10/28/24 09:10 12/31/24 09:01 Medications Medications Current Medications Acetaminophen (Acetaminophen 325 Mg Tablet) 650 mg PO Q6H PRN PRN Reason: Headache/Pain Mild Scale (1-3) Al Hydroxide/Mg Hydroxide (Magnesium Hydrox/Alum Hydrox 30 Ml Oral.Susp) 30 ml PO Q6H PRN PRN Reason: Heartburn/Nausea Atorvastatin Calcium (Atorvastatin Calcium 80 Mg Tablet) 80 mg PO BEDTIME [facility] Last Admin: 01/09/25 21:24 Dose: Not Given Benztropine Mesylate (Benztropine Mesylate 1 Mg Tablet) 1 mg PO BEDTIME PRN PRN Reason: Extrapyramidal Effects Diazepam (Diazepam 10 Mg/2 Ml Cartridge) 5 mg IM TID PRN PRN Reason: PO refusal. HOLD FOR SEDATION Last Admin: 12/21/24 10:22 Dose: 5 mg Diazepam (Diazepam 2 Mg Tablet) 4 mg PO TID [facility] Last Admin: 01/09/25 21:09 Dose: 4 mg Empagliflozin (Empagliflozin 10 Mg Tablet) 10 mg PO DAILY [facility] Last Admin: 01/09/25 08:11 Dose: Not Given Hydroxyzine HCl (Hydroxyzine Hcl 25 Mg Tablet) 25 mg PO Q6H PRN PRN Reason: Anxiety Last Admin: 11/18/24 17:38 Dose: 25 mg Lisinopril (Lisinopril 20 Mg Tablet) 20 mg PO DAILY [facility]; Protocol Last Admin: 01/09/25 08:08 Dose: 20 mg Magnesium Hydroxide (Milk Of Magnesia 30 Ml Oral.Susp) 30 ml PO DAILY PRN PRN Reason: Constipation Last Admin: 01/05/25 09:27 Dose: 30 ml Metformin HCl (Metformin Hcl Er 500 Mg Tab.Er.24h) 500 mg PO BID [facility] Last Admin: 01/09/25 21:23 Dose: Not Given Mirtazapine (Mirtazapine 30 Mg Tablet) 30 mg PO BEDTIME [facility] Last Admin: 01/09/25 21:09 Dose: 30 mg Nicotine (Nicotine 21 Mg Patch.Td24) 21 mg TRANSDERMA DAILY PRN PRN Reason: nicotine cravings Nicotine Polacrilex (Nicotine Polacrilex 2 Mg Gum) 4 mg BUCCAL Q2H PRN PRN Reason: Nicotine Cravings Olanzapine (Olanzapine 10 Mg Tablet) 20 mg PO BEDTIME [facility] Last Admin: 01/09/25 21:09 Dose: 20 mg Olanzapine (Olanzapine Odt 10 Mg Tab.Rapdis) 10 mg TRANSLINGU DAILY [facility] Last Admin: 01/09/25 08:08 Dose: 10 mg Olanzapine (Olanzapine 10 Mg Vial) 10 mg IM BID PRN PRN Reason: PO refusal Last Admin: 12/21/24 10:22 Dose: 10 mg Oxcarbazepine (Oxcarbazepine 300 Mg Tablet) 300 mg PO BID [facility] Last Admin: 01/09/25 21:09 Dose: 300 mg Primidone (Primidone 50 Mg Tablet) 50 mg PO BID [facility] Last Admin: 01/09/25 21:24 Dose: Not Given Sertraline HCl (Sertraline Hcl 100 Mg Tablet) 100 mg PO BEDTIME [facility] Last Admin: 01/09/25 21:09 Dose: 100 mg Trazodone HCl (Trazodone Hcl 50 Mg Tablet) 50 mg PO BEDTIME MRX1 PRN PRN Reason: Insomnia Last Admin: 11/07/24 22:07 Dose: 50 mg Allergies Allergies Allergy/AdvReac Type Severity Reaction Status Date / Time No Known Allergies Allergy Verified 12/19/24 18:14 [No Known Allergies*] Assessment & Plan Assessment & Plan (1) Mood disorder: Status: Acute Code(s): F39 - Unspecified mood [affective] disorder (2) Autism spectrum disorder: Status: Acute Code(s): F84.0 - Autistic disorder (3) Neurocognitive disorder: Status: Acute Code(s): R41.9 - Unspecified symptoms and signs involving cognitive functions and awareness Plan Humza was admitted for safety and stabilization. His presentation is very similar to his last admission psychiatrically about a year ago and that is why his caregivers wanted to get ahead of things before he decompensated further. Current medications were reviewed and maintained. Contacts to be made with his treaters next week. 10/17: Continue current regimen and plans 10/19: Continue current tx plan and regime. 10/21: Memantine 5 mg daily- [facility], memory sx Abilify 2 mg daily-augment to antidepressants currently being used. 10/22 continue current tx plan -pt confused 10/23 Continue trials, regime and plan. 10/24: Continue regime and plan of care. 10/25 Abilify increased up to 5 mg. 10/26 keep on same treatment 10/27/24 continues with many complaints, no clear insight into self- 10/28 continue same treatment 10/29 increase Namenda to 5 mg p.o. b.i.d. and change Depakote to Depakene. Depakote level on 13/02 as per blood work of yesterday 10/30/24 - ny [employer] olanzapine = continue depakene as he did take 5 capsules this am- prn olanzapine given - this afternoon for behaviors on unit- 10/31/24 wrote for liquid depakote option if refuses capsules, also got prn olanzapine for throwing self on floor 11/01 keep same treatment 11/02 increase Zyprexa to 20 mg p.o. q.h.s. 11/03 keep same treatment. 11/04 discontinue Depakote and start Trileptal 300 mg p.o. b.i.d.. Her healthcare proxy will bring a copy of that we are going to invoke it 11/06 increase olanzapine to 20mg po qhs and 10mg po daily. 11/07 continue tx. 12/04 continue tx. 12/05: no changes 12/06 continue tx. 12/12: continue plan of care 12/13: continue tx 12/19 continue current tx plan 12/25: appearing sedated, more of a falls risk, poorer ability to do ADLs. decrease trileptal dosing from 600 BID to 300 BID for now. 12/26: less sedated than yesterday, continue current mgmt, including 1:1, until attending can see pt in the morning. 12/30: continues less sedated. minimally interactive. continue current mgmt. 12/31: per HCP, not at baseline, over-sedated. begin valium taper. decrease valium 5 TID to 4 TID for now. per HCP and SW, HCP has been affirmed in court. IM back-up orders in place and to be enforced by nursing staff. no aggressive or agitated behaviors. 01/02: Continue current regimen and plans Plan 1. Continue with olanzapine 10 mg p.o. q.a.m. and 20 mg p.o. q.h.s., he refused p.o. he received olanzapine IM. 2. Continue with Valium 5 mg p.o. t.i.d. if he refuses he will get Valium IM. 3. We will encourage compliance. The patient had been noncompliant with sertraline, he remains dysphoric. 4. The patient has a healthcare proxy who was affirmed by court, and they want us to medicate him even if the patient does not want to be compliant. 5. At this moment the patient is slightly over-sedated with EPS but we will keep the same dose of antipsychotics since his violence has improved. 01/03/25 Continue plan of care Reassess treatment plan which includes IM medication patient has been much less aggressive than he has in the past Unclear discharge plan at this point 01/04/2025 Patient taking Valium and olanzapine regularly has IM prescribed if refuses intermittently taking medication for diabetes hypertension 01/05/25 Cont medicationhas been stabilizing try and d/c meds that are not esential simplify regimen 01/06/25 stop namenda monitor sugar / bp encourage med acceptance cont valium olanzapine 01/08/2025 Continue olanzapine Valium metformin try and taper and simplify medication as tolerated discharge planning monitor response to change in medication 01/09/25 Try and simplify med regimen d/c planning Reason for continued inpatient stay Substantial Risk for: inability to function, rapid decompensation and med/psych decompensation Time Spent With Patient Time: Total time managing care of this patient today ____ minutes.
[2025-01-10 08:47] VITALS: BP 118/64; PULSE 86; RESP 18; TEMP 36.5; O2SAT 99
[2025-01-10] MEDS: Empagliflozin 10 MG TABLET PO (08:49)
[2025-01-10] MEDS: metFORMIN HCl ER 500 MG TAB.ER.24H PO ×2 (08:49→20:05)
[2025-01-10] MEDS: OLANZapine ODT 10 MG TAB.RAPDIS TRANSLINGU (08:49)
[2025-01-10] MEDS: Primidone 50 MG TABLET PO ×2 (08:49→20:05)
[2025-01-10] MEDS: diazePAM 2 MG TABLET 4 MG PO ×3 (08:50→20:04)
[2025-01-10] MEDS: lisinopriL 20 MG TABLET PO (08:50)
[2025-01-10] MEDS: OXcarbazepine 300 MG TABLET PO ×2 (08:50→20:05)
--- NOTE | 2025-01-10 14:58 | HO.PSYCHPN ---
Subjective Subjective Date of Service: 01/10/25 Reason For Visit: Anxiety, mood disorder, ASD Interim History: calm, superficially and minimally cooperative. denies any problems or issues. per staff, refusing various meds. slept 8 hours. Mental Status Exam Mental Status Exam Patient Appearance: Disheveled Patient Orientation: Person Level of Consciousness: Awake Patient Behavior: Guarded and Passive Mood Description: Withdrawn Affect Description: Blunted Patient Cognition Impaired: Yes Ability to Follow Directions: Good Speech Pattern: Monotone, Delayed and Long Pauses Hallucinations: None Thought Process: Distracted and Slowed Thinking Thought Content: positive for Poverty of Content and positive for Thought Blocking Judgement: Fair Diagnostics Vital Signs (24Hr): Vital Signs - 24 hr 01/09/25 20:00 01/10/25 08:47 Temperature 97.8 F 97.7 F Pulse Rate 66 86 Respiratory Rate 16 18 Blood Pressure 91/65 118/64 Pulse Oximetry 98 99 Oxygen Delivery Method Room Air Room Air BMI result Body Mass Index 26.6 Labs 10/28/24 09:10 12/31/24 09:01 Medications Medications Current Medications Acetaminophen (Acetaminophen 325 Mg Tablet) 650 mg PO Q6H PRN PRN Reason: Headache/Pain Mild Scale (1-3) Al Hydroxide/Mg Hydroxide (Magnesium Hydrox/Alum Hydrox 30 Ml Oral.Susp) 30 ml PO Q6H PRN PRN Reason: Heartburn/Nausea Benztropine Mesylate (Benztropine Mesylate 1 Mg Tablet) 1 mg PO BEDTIME PRN PRN Reason: Extrapyramidal Effects Diazepam (Diazepam 10 Mg/2 Ml Cartridge) 5 mg IM TID PRN PRN Reason: PO refusal. HOLD FOR SEDATION Last Admin: 12/21/24 10:22 Dose: 5 mg Diazepam (Diazepam 2 Mg Tablet) 4 mg PO TID DESIRAE Last Admin: 01/10/25 14:35 Dose: 4 mg Empagliflozin (Empagliflozin 10 Mg Tablet) 10 mg PO DAILY [facility]IRAE Last Admin: 01/10/25 08:49 Dose: 10 mg Hydroxyzine HCl (Hydroxyzine Hcl 25 Mg Tablet) 25 mg PO Q6H PRN PRN Reason: Anxiety Last Admin: 11/18/24 17:38 Dose: 25 mg Lisinopril (Lisinopril 20 Mg Tablet) 20 mg PO DAILY [facility]; Protocol Last Admin: 01/10/25 08:50 Dose: 20 mg Magnesium Hydroxide (Milk Of Magnesia 30 Ml Oral.Susp) 30 ml PO DAILY PRN PRN Reason: Constipation Last Admin: 01/05/25 09:27 Dose: 30 ml Metformin HCl (Metformin Hcl Er 500 Mg Tab.Er.24h) 500 mg PO BID [facility] [place] Stop: 01/10/25 21:01 Last Admin: 01/10/25 08:49 Dose: 500 mg Metformin HCl (Metformin Hcl Er 500 Mg Tab.Er.24h) 1,000 mg PO DAILY [facility] [place] Mirtazapine (Mirtazapine 30 Mg Tablet) 30 mg PO BEDTIME [facility] Last Admin: 01/09/25 21:09 Dose: 30 mg Nicotine (Nicotine 21 Mg Patch.Td24) 21 mg TRANSDERMA DAILY PRN PRN Reason: nicotine cravings Nicotine Polacrilex (Nicotine Polacrilex 2 Mg Gum) 4 mg BUCCAL Q2H PRN PRN Reason: Nicotine Cravings Olanzapine (Olanzapine 10 Mg Tablet) 20 mg PO BEDTIME [facility] [place] Last Admin: 01/09/25 21:09 Dose: 20 mg Olanzapine (Olanzapine Odt 10 Mg Tab.Rapdis) 10 mg TRANSLINGU DAILY [facility] [place] Last Admin: 01/10/25 08:49 Dose: 10 mg Olanzapine (Olanzapine 10 Mg Vial) 10 mg IM BID PRN PRN Reason: PO refusal Last Admin: 12/21/24 10:22 Dose: 10 mg Oxcarbazepine (Oxcarbazepine 300 Mg Tablet) 300 mg PO BID [facility] [place] Last Admin: 01/10/25 08:50 Dose: 300 mg Primidone (Primidone 50 Mg Tablet) 50 mg PO BID [facility] [place] Last Admin: 01/10/25 08:49 Dose: 50 mg Sertraline HCl (Sertraline Hcl 100 Mg Tablet) 100 mg PO BEDTIME [facility] [place] Last Admin: 01/09/25 21:09 Dose: 100 mg Trazodone HCl (Trazodone Hcl 50 Mg Tablet) 50 mg PO BEDTIME MRX1 PRN PRN Reason: Insomnia Last Admin: 11/07/24 22:07 Dose: 50 mg Allergies Allergies Allergy/AdvReac Type Severity Reaction Status Date / Time No Known Allergies Allergy Verified 10/14/24 18:14 [No Known Allergies*] Assessment & Plan Assessment & Plan (1) Mood disorder: Status: Acute Code(s): F39 - Unspecified mood [affective] disorder (2) Autism spectrum disorder: Status: Acute Code(s): F84.0 - Autistic disorder (3) Neurocognitive disorder: Status: Acute Code(s): R41.9 - Unspecified symptoms and signs involving cognitive functions and awareness Plan Humza was admitted for safety and stabilization. His presentation is very similar to his last admission psychiatrically about a year ago and that is why his caregivers wanted to get ahead of things before he decompensated further. Current medications were reviewed and maintained. Contacts to be made with his treaters next week. 10/17: Continue current regimen and plans 10/19: Continue current tx plan and regime. 10/21: Memantine 5 mg daily- [facility], memory sx Abilify 2 mg daily-augment to antidepressants currently being used. 10/22 continue current tx plan -pt confused 10/23 Continue trials, regime and plan. 10/24: Continue regime and plan of care. 10/25 Abilify increased up to 5 mg. 10/26 keep on same treatment 10/27/24 continues with many complaints, no clear insight into self- 10/28 continue same treatment 10/29 increase Namenda to 5 mg p.o. b.i.d. and change Depakote to Depakene. Depakote level on 13/02 as per blood work of yesterday 10/30/24 - or [facility] olanzapine = continue depakene as he did take 5 capsules this am- prn olanzapine given - this afternoon for behaviors on unit- 10/31/24 wrote for liquid depakote option if refuses capsules, also got prn olanzapine for throwing self on floor 11/01 keep same treatment 11/02 increase Zyprexa to 20 mg p.o. q.h.s. 11/03 keep same treatment. 11/04 discontinue Depakote and start Trileptal 300 mg p.o. b.i.d.. Her healthcare proxy will bring a copy of that we are going to invoke it 11/06 increase olanzapine to 20mg po qhs and 10mg po daily. 11/07 continue tx. 12/04 continue tx. 12/05: no changes 12/06 continue tx. 12/12: continue plan of care 12/13: continue tx 12/19 continue current tx plan 12/25: appearing sedated, more of a falls risk, poorer ability to do ADLs. decrease trileptal dosing from 600 BID to 300 BID for now. 32: less sedated than yesterday, continue current mgmt, including 1:1, until attending can see pt in the morning. 12/30: continues less sedated. minimally interactive. continue current mgmt. 12/31: per HCP, not at baseline, over-sedated. begin valium taper. decrease valium 5 TID to 4 TID for now. per HCP and SW, HCP has been affirmed in court. IM back-up orders in place and to be enforced by nursing staff. no aggressive or agitated behaviors. 01/02: Continue current regimen and plans Plan 1. Continue with olanzapine 10 mg p.o. q.a.m. and 20 mg p.o. q.h.s., he refused p.o. he received olanzapine IM. 2. Continue with Valium 5 mg p.o. t.i.d. if he refuses he will get Valium IM. 3. We will encourage compliance. The patient had been noncompliant with sertraline, he remains dysphoric. 4. The patient has a healthcare proxy who was affirmed by court, and they want us to medicate him even if the patient does not want to be compliant. 5. At this moment the patient is slightly over-sedated with EPS but we will keep the same dose of antipsychotics since his violence has improved. 01/03/25 Continue plan of care Reassess treatment plan which includes IM medication patient has been much less aggressive than he has in the past Unclear discharge plan at this point 01/04/2025 Patient taking Valium and olanzapine regularly has IM prescribed if refuses intermittently taking medication for diabetes hypertension 01/05/25 Cont medicationhas been stabilizing try and d/c meds that are not esential simplify regimen 01/06/25 stop namenda monitor sugar / bp encourage med acceptance cont valium olanzapine 01/08/2025 Continue olanzapine Valium metformin try and taper and simplify medication as tolerated discharge planning monitor response to change in medication 01/09: pt refusing HS metformin, double dose and change to ER formulation, give in morning. refusing statin, lipid profile not terrible. DC lipitor for now. also often refusing primidone and jardiance; T/C DC of those medications as well. otherwise continue current mgmt. Reason for continued inpatient stay Substantial Risk for: harm to others and inability to function Time Spent With Patient Time: Total time managing care of this patient today _35__ minutes.
[2025-01-10 20:00] VITALS: BP 108/64; PULSE 76; RESP 18; TEMP 36.1; O2SAT 97
[2025-01-10] MEDS: Sertraline HCL 100 MG TABLET PO (20:05)
[2025-01-10] MEDS: OLANZapine 10 MG TABLET 20 MG PO (20:05)
[2025-01-10] MEDS: Mirtazapine 30 MG TABLET PO (20:05)
[2025-01-11 08:16] VITALS: BP 141/83; PULSE 80; RESP 16; TEMP 36.4; O2SAT 100
[2025-01-11] MEDS: diazePAM 2 MG TABLET 4 MG PO ×3 (08:18→19:58)
[2025-01-11] MEDS: OXcarbazepine 300 MG TABLET PO ×2 (08:18→19:58)
[2025-01-11] MEDS: Empagliflozin 10 MG TABLET PO (08:18)
[2025-01-11] MEDS: metFORMIN HCl ER 500 MG TAB.ER.24H 1000 MG PO (08:18)
[2025-01-11] MEDS: OLANZapine ODT 10 MG TAB.RAPDIS TRANSLINGU (08:18)
[2025-01-11] MEDS: lisinopriL 20 MG TABLET PO (08:18)
[2025-01-11] MEDS: Primidone 50 MG TABLET PO ×2 (08:18→19:58)
[2025-01-11] MEDS: OLANZapine 10 MG TABLET 20 MG PO (19:58)
[2025-01-11] MEDS: Sertraline HCL 100 MG TABLET PO (19:58)
[2025-01-11] MEDS: Mirtazapine 30 MG TABLET PO (19:58)
[2025-01-11 20:00] VITALS: RESP 17
--- NOTE | 2025-01-11 21:36 | HO.PSYCHPN ---
Subjective Subjective Date of Service: 01/11/25 Reason For Visit: Anxiety, mood disorder, ASD Subjective Notes: Conditional Voluntary Interim History: Patient seen psychiatric follow-up case reviewed in treatment team patient continues to be relatively stable in the milieu accepting some medication but not all blood pressure has been generally unremarkable Medication Compliance: Intermittent Mental Status Exam Mental Status Exam Patient Appearance: Appropriate Patient Orientation: Person Level of Consciousness: Awake Patient Behavior: Guarded and Passive Mood Description: Withdrawn and Blunted Affect Description: Blunted Patient Cognition Impaired: Yes Ability to Follow Directions: Good Speech Pattern: Monotone, Delayed and Long Pauses Hallucinations: None Thought Process: Distracted and Slowed Thinking Thought Content: positive for Poverty of Content and positive for Thought Blocking Judgement: Fair Diagnostics Vital Signs (24Hr): Vital Signs - 24 hr 01/11/25 08:16 01/11/25 20:00 Temperature 97.6 F Pulse Rate 80 Respiratory Rate 16 17 Blood Pressure 141/83 H Pulse Oximetry 100 Oxygen Delivery Method Room Air BMI result Body Mass Index 26.6 Labs 10/28/24 09:10 12/31/24 09:01 Medications Medications Current Medications Acetaminophen (Acetaminophen 325 Mg Tablet) 650 mg PO Q6H PRN PRN Reason: Headache/Pain Mild Scale (1-3) Al Hydroxide/Mg Hydroxide (Magnesium Hydrox/Alum Hydrox 30 Ml Oral.Susp) 30 ml PO Q6H PRN PRN Reason: Heartburn/Nausea Benztropine Mesylate (Benztropine Mesylate 1 Mg Tablet) 1 mg PO BEDTIME PRN PRN Reason: Extrapyramidal Effects Diazepam (Diazepam 10 Mg/2 Ml Cartridge) 5 mg IM TID PRN PRN Reason: PO refusal. HOLD FOR SEDATION Last Admin: 12/21/24 10:22 Dose: 5 mg Diazepam (Diazepam 2 Mg Tablet) 4 mg PO TID DESIRAE Last Admin: 01/11/25 19:58 Dose: 4 mg Empagliflozin (Empagliflozin 10 Mg Tablet) 10 mg PO DAILY [facility]IR[facility] Last Admin: 01/11/25 08:18 Dose: 10 mg Hydroxyzine HCl (Hydroxyzine Hcl 25 Mg Tablet) 25 mg PO Q6H PRN PRN Reason: Anxiety Last Admin: 11/18/24 17:38 Dose: 25 mg Lisinopril (Lisinopril 20 Mg Tablet) 20 mg PO DAILY [facility]; Protocol Last Admin: 01/11/25 08:18 Dose: 20 mg Magnesium Hydroxide (Milk Of Magnesia 30 Ml Oral.Susp) 30 ml PO DAILY PRN PRN Reason: Constipation Last Admin: 01/05/25 09:27 Dose: 30 ml Metformin HCl (Metformin Hcl Er 500 Mg Tab.Er.24h) 1,000 mg PO DAILY [facility] Last Admin: 01/11/25 08:18 Dose: 1,000 mg Mirtazapine (Mirtazapine 30 Mg Tablet) 30 mg PO BEDTIME DESIRAE Last Admin: 01/11/25 19:58 Dose: 30 mg Nicotine (Nicotine 21 Mg Patch.Td24) 21 mg TRANSDERMA DAILY PRN PRN Reason: nicotine cravings Nicotine Polacrilex (Nicotine Polacrilex 2 Mg Gum) 4 mg BUCCAL Q2H PRN PRN Reason: Nicotine Cravings Olanzapine (Olanzapine 10 Mg Tablet) 20 mg PO BEDTIME [facility] Last Admin: 01/11/25 19:58 Dose: 20 mg Olanzapine (Olanzapine Odt 10 Mg Tab.Rapdis) 10 mg TRANSLINGU DAILY [facility] Last Admin: 01/11/25 08:18 Dose: 10 mg Olanzapine (Olanzapine 10 Mg Vial) 10 mg IM BID PRN PRN Reason: PO refusal Last Admin: 12/21/24 10:22 Dose: 10 mg Oxcarbazepine (Oxcarbazepine 300 Mg Tablet) 300 mg PO BID [facility] Last Admin: 01/11/25 19:58 Dose: 300 mg Primidone (Primidone 50 Mg Tablet) 50 mg PO BID [facility] Last Admin: 01/11/25 19:58 Dose: 50 mg Sertraline HCl (Sertraline Hcl 100 Mg Tablet) 100 mg PO BEDTIME [facility] Last Admin: 01/11/25 19:58 Dose: 100 mg Trazodone HCl (Trazodone Hcl 50 Mg Tablet) 50 mg PO BEDTIME MRX1 PRN PRN Reason: Insomnia Last Admin: 11/07/24 22:07 Dose: 50 mg Allergies Allergies Allergy/AdvReac Type Severity Reaction Status Date / Time No Known Allergies Allergy Verified 10/14/24 18:14 [No Known Allergies*] Assessment & Plan Assessment & Plan (1) Mood disorder: Status: Acute Code(s): F39 - Unspecified mood [affective] disorder (2) Autism spectrum disorder: Status: Acute Code(s): F84.0 - Autistic disorder (3) Neurocognitive disorder: Status: Acute Code(s): R41.9 - Unspecified symptoms and signs involving cognitive functions and awareness Plan Humza was admitted for safety and stabilization. His presentation is very similar to his last admission psychiatrically about a year ago and that is why his caregivers wanted to get ahead of things before he decompensated further. Current medications were reviewed and maintained. Contacts to be made with his treaters next week. 10/17: Continue current regimen and plans 10/19: Continue current tx plan and regime. 10/21: Memantine 5 mg daily- [facility], memory sx Abilify 2 mg daily-augment to antidepressants currently being used. 10/22 continue current tx plan -pt confused 10/23 Continue trials, regime and plan. 10/24: Continue regime and plan of care. 10/25 Abilify increased up to 5 mg. 10/26 keep on same treatment 10/27/24 continues with many complaints, no clear insight into self- 10/28 continue same treatment 10/29 increase Namenda to 5 mg p.o. b.i.d. and change Depakote to Depakene. Depakote level on 13/02 as per blood work of yesterday 10/30/24 - [facility] olanzapine = continue depakene as he did take 5 capsules this am- prn olanzapine given - this afternoon for behaviors on unit- 10/31/24 wrote for liquid depakote option if refuses capsules, also got prn olanzapine for throwing self on floor 11/01 keep same treatment 11/02 increase Zyprexa to 20 mg p.o. q.h.s. 11/03 keep same treatment. 11/04 discontinue Depakote and start Trileptal 300 mg p.o. b.i.d.. Her healthcare proxy will bring a copy of that we are going to invoke it 11/06 increase olanzapine to 20mg po qhs and 10mg po daily. 11/07 continue tx. 12/04 continue tx. 12/05: no changes 12/06 continue tx. 12/12: continue plan of care 12/13: continue tx 12/19 continue current tx plan 12/25: appearing sedated, more of a falls risk, poorer ability to do ADLs. decrease trileptal dosing from 600 BID to 300 BID for now. 12/26: less sedated than yesterday, continue current mgmt, including 1:1, until attending can see pt in the morning. 12/30: continues less sedated. minimally interactive. continue current mgmt. 12/31: per HCP, not at baseline, over-sedated. begin valium taper. decrease valium 5 TID to 4 TID for now. per HCP and SW, HCP has been affirmed in court. IM back-up orders in place and to be enforced by nursing staff. no aggressive or agitated behaviors. 01/02: Continue current regimen and plans Plan 1. Continue with olanzapine 10 mg p.o. q.a.m. and 20 mg p.o. q.h.s., he refused p.o. he received olanzapine IM. 2. Continue with Valium 5 mg p.o. t.i.d. if he refuses he will get Valium IM. 3. We will encourage compliance. The patient had been noncompliant with sertraline, he remains dysphoric. 4. The patient has a healthcare proxy who was affirmed by court, and they want us to medicate him even if the patient does not want to be compliant. 5. At this moment the patient is slightly over-sedated with EPS but we will keep the same dose of antipsychotics since his violence has improved. 01/03/25 Continue plan of care Reassess treatment plan which includes IM medication patient has been much less aggressive than he has in the past Unclear discharge plan at this point 01/04/2025 Patient taking Valium and olanzapine regularly has IM prescribed if refuses intermittently taking medication for diabetes hypertension 01/05/25 Cont medicationhas been stabilizing try and d/c meds that are not esential simplify regimen 01/06/25 stop namenda monitor sugar / bp encourage med acceptance cont valium olanzapine 01/08/2025 Continue olanzapine Valium metformin try and taper and simplify medication as tolerated discharge planning monitor response to change in medication 01/09/25 Try and simplify med regimen d/c planning 01/11/2025 Patient generally more cooperative not agitated generally monitor blood sugar and blood pressure intermittently refuses some doses of metformin Reason for continued inpatient stay Substantial Risk for: inability to function and rapid decompensation Time Spent With Patient Time: Total time managing care of this patient today ____ minutes.
[2025-01-12 08:00] VITALS: BP 143/79; PULSE 59; RESP 18; TEMP 36.4; O2SAT 98
[2025-01-12] MEDS: metFORMIN HCl ER 500 MG TAB.ER.24H 1000 MG PO (08:24)
[2025-01-12] MEDS: diazePAM 2 MG TABLET 4 MG PO ×2 (08:24→19:38)
[2025-01-12 08:25] VITALS: BP 143/79
[2025-01-12] MEDS: OXcarbazepine 300 MG TABLET PO ×2 (08:25→19:38)
[2025-01-12] MEDS: OLANZapine ODT 10 MG TAB.RAPDIS TRANSLINGU (08:25)
[2025-01-12] MEDS: lisinopriL 20 MG TABLET PO (08:25)
[2025-01-12] MEDS: Primidone 50 MG TABLET PO ×2 (08:26→19:38)
[2025-01-12] MEDS: Empagliflozin 10 MG TABLET PO (08:26)
[2025-01-12 12:50] VITALS: BP 123/82; PULSE 103; RESP 18; TEMP 36.4; O2SAT 98
[2025-01-12 12:53] VITALS: BP 113/80; PULSE 104
[2025-01-12 13:08] LABS: Glucose, Whole Blood 142 mg/dL (60-115)
--- NOTE | 2025-01-12 13:11 | PM.EVENT ---
Event Note Date of Service: 01/12/25 Event Note: Pt is a 64 year old male admitted to [facility] with rapid response called for unwitnessed fall in bathroom. Pt is a poor historian and unable to provide any specific details concerning event. Pt states that he lost my balance? and fell over. Unclear if this was wither prior to, during, or after using the bathroom. Denies lightheadedness or dizziness. Does not think he either struck his head or loss conscious. No headache. Denies musculoskeletal pain, including shoulders, arms, hips, and legs. Pt noted to be tremulous. Does not use assistive device for ambulation. ROM of upper and lower extremities appears intact. No tenderness to palpation of shoulders, elbows, or hips. Plan: Will get CT of head and cervical spine Will get x-ray of hips bilaterally PT evaluation for need for walker Time Spent With Patient Time: Total time managing care of this patient today ____ minutes.
[2025-01-12 13:20] VITALS: BP 113/81; PULSE 103; RESP 15; TEMP 36.4; O2SAT 98
--- NOTE | 2025-01-12 13:48 | PC.NURSE ---
Addendum entered by Aggie Del Toro RN 01/12/25 13:51: Bilateral hip x rays and CT scan of the spine also ordered and completed. Original Note: The patient was found lying in between the toilet and the wall in his room on rounds by Bob DURAN. A PLY CUTTER was called and he was accessed. He denied pain and injury and was able to move all extremities within normal limits. He denied dizziness. Vital signs while sitting [id number]/82 with O2 Sat 96-98% on room air. POC was 142. Patient stated that he was sitting on the toilet and fell off to the side. He was wearing non- skid socks and hospital Johnathan pants and top. He had his eye glasses on. He was able to stand up with some assistance and walk back to his bed with assistance. His upper extremities were very tremulous. Standing his B/P was 113/80 with P 104, no dizziness. He was seen by Mayda Kevin NP, Dr Foster and Matias MORALES. A call was made to both sisters Fernanda and Saritha and a message was left for them to call here. PT eval and CT scan of the head ordered. Patient now on 5 minute checks. Patient cooperative with CT Scan today. No history of falls. Floor was dry and room was well lit.
--- NOTE | 2025-01-12 14:10 | P.PNPSI_ITS ---
Subjective Subjective Date of Service: 01/12/25 Reason For Visit: Anxiety, mood disorder, ASD Subjective Notes: Conditional Voluntary Interim History: Patient seen psychiatric follow-up case reviewed in treatment team patient continues to be relatively stable has been accepting more medication less refusal.Mood flat not labile had fall in bathroom rapid response called about 1 pm. VSS not orthostatic but felt unsteady. Seen by medical service head ct no changes noted. Medication Compliance: Intermittent Side effects from medications: Yes Review of Systems s/p fall no clear injury Mental Status Exam Mental Status Exam Patient Appearance: Appropriate Patient Orientation: Person Level of Consciousness: Awake Patient Behavior: Guarded and Passive Mood Description: Withdrawn, Constricted and Blunted Affect Description: Blunted Patient Cognition Impaired: Yes Ability to Follow Directions: Good Speech Pattern: Monotone, Delayed and Long Pauses Hallucinations: None Thought Process: Distracted and Slowed Thinking Thought Content: positive for Poverty of Content and positive for Thought Blocking Judgement: Fair Diagnostics Vital Signs (24Hr): Vital Signs - 24 hr 01/11/25 20:00 01/12/25 08:00 01/12/25 08:25 Temperature 97.6 F Pulse Rate 59 Respiratory Rate 17 18 Blood Pressure 143/79 H 143/79 H Pulse Oximetry 98 Oxygen Delivery Method Room Air 01/12/25 13:20 Temperature 97.5 F Pulse Rate 103 H Respiratory Rate 15 Blood Pressure 113/81 Pulse Oximetry 98 Oxygen Delivery Method Room Air BMI result Body Mass Index 26.6 Labs 10/28/24 09:10 12/31/24 09:01 Labs: Laboratory Results - last 48 hr 01/12/25 12:56 POC Glucose 142 H Imaging Radiology Impressions: ITS Impressions Hip X-Ray 01/12/25 13:30 IMPRESSION: No evidence of fracture of the bilateral hips. Electronically signed by: Kaushal Soni MD 01/12/2025 01:54 PM EDT RP Medications Medications Current Medications Acetaminophen (Acetaminophen 325 Mg Tablet) 650 mg PO Q6H PRN PRN Reason: Headache/Pain Mild Scale (1-3) Al Hydroxide/Mg Hydroxide (Magnesium Hydrox/Alum Hydrox 30 Ml Oral.Susp) 30 ml PO Q6H PRN PRN Reason: Heartburn/Nausea Benztropine Mesylate (Benztropine Mesylate 1 Mg Tablet) 1 mg PO BEDTIME PRN PRN Reason: Extrapyramidal Effects Diazepam (Diazepam 10 Mg/2 Ml Cartridge) 5 mg IM TID PRN PRN Reason: PO refusal. HOLD FOR SEDATION Last Admin: 12/21/24 10:22 Dose: 5 mg Diazepam (Diazepam 2 Mg Tablet) 4 mg PO TID [facility] Last Admin: 01/12/25 08:24 Dose: 4 mg Empagliflozin (Empagliflozin 10 Mg Tablet) 10 mg PO DAILY [facility] Last Admin: 01/12/25 08:26 Dose: 10 mg Hydroxyzine HCl (Hydroxyzine Hcl 25 Mg Tablet) 25 mg PO Q6H PRN PRN Reason: Anxiety Last Admin: 11/18/24 17:38 Dose: 25 mg Lisinopril (Lisinopril 20 Mg Tablet) 20 mg PO DAILY [facility]; Protocol Last Admin: 01/12/25 08:25 Dose: 20 mg Magnesium Hydroxide (Milk Of Magnesia 30 Ml Oral.Susp) 30 ml PO DAILY PRN PRN Reason: Constipation Last Admin: 01/05/25 09:27 Dose: 30 ml Metformin HCl (Metformin Hcl Er 500 Mg Tab.Er.24h) 1,000 mg PO DAILY [facility] Last Admin: 01/12/25 08:24 Dose: 1,000 mg Mirtazapine (Mirtazapine 30 Mg Tablet) 30 mg PO BEDTIME [facility] Last Admin: 01/11/25 19:58 Dose: 30 mg Nicotine (Nicotine 21 Mg Patch.Td24) 21 mg TRANSDERMA DAILY PRN PRN Reason: nicotine cravings Nicotine Polacrilex (Nicotine Polacrilex 2 Mg Gum) 4 mg BUCCAL Q2H PRN PRN Reason: Nicotine Cravings Olanzapine (Olanzapine 10 Mg Tablet) 20 mg PO BEDTIME [facility] Last Admin: 01/11/25 19:58 Dose: 20 mg Olanzapine (Olanzapine Odt 10 Mg Tab.Rapdis) 10 mg TRANSLINGU DAILY [facility] Last Admin: 01/12/25 08:25 Dose: 10 mg Olanzapine (Olanzapine 10 Mg Vial) 10 mg IM BID PRN PRN Reason: PO refusal Last Admin: 12/21/24 10:22 Dose: 10 mg Oxcarbazepine (Oxcarbazepine 300 Mg Tablet) 300 mg PO BID [facility] Last Admin: 01/12/25 08:25 Dose: 300 mg Primidone (Primidone 50 Mg Tablet) 50 mg PO BID [facility] Last Admin: 01/12/25 08:26 Dose: 50 mg Sertraline HCl (Sertraline Hcl 100 Mg Tablet) 100 mg PO BEDTIME [facility] Last Admin: 01/11/25 19:58 Dose: 100 mg Trazodone HCl (Trazodone Hcl 50 Mg Tablet) 50 mg PO BEDTIME PRN PRN Reason: Insomnia Allergies Allergies Allergy/AdvReac Type Severity Reaction Status Date / Time No Known Allergies Allergy Verified 10/14/24 18:14 [No Known Allergies*] Assessment & Plan Assessment & Plan (1) Mood disorder: Status: Acute Code(s): F39 - Unspecified mood [affective] disorder (2) Autism spectrum disorder: Status: Acute Code(s): F84.0 - Autistic disorder (3) Neurocognitive disorder: Status: Acute Code(s): R41.9 - Unspecified symptoms and signs involving cognitive functions and awareness Plan Humza was admitted for safety and stabilization. His presentation is very similar to his last admission psychiatrically about a year ago and that is why his caregivers wanted to get ahead of things before he decompensated further. Current medications were reviewed and maintained. Contacts to be made with his treaters next week. 10/17: Continue current regimen and plans 10/19: Continue current tx plan and regime. 10/21: Memantine 5 mg daily- [facility], memory sx Abilify 2 mg daily-augment to antidepressants currently being used. 10/22 continue current tx plan -pt confused 10/23 Continue trials, regime and plan. 10/24: Continue regime and plan of care. 10/25 Abilify increased up to 5 mg. 10/26 keep on same treatment 10/27/24 continues with many complaints, no clear insight into self- 10/28 continue same treatment 10/29 increase Namenda to 5 mg p.o. b.i.d. and change Depakote to Depakene. Depakote level on 13/02 as per blood work of yesterday 10/30/24 - [facility] olanzapine = continue depakene as he did take 5 capsules this am- prn olanzapine given - this afternoon for behaviors on unit- 10/31/24 wrote for liquid depakote option if refuses capsules, also got prn olanzapine for throwing self on floor 11/01 keep same treatment 11/02 increase Zyprexa to 20 mg p.o. q.h.s. 11/03 keep same treatment. 11/04 discontinue Depakote and start Trileptal 300 mg p.o. b.i.d.. Her healthcare proxy will bring a copy of that we are going to invoke it 11/06 increase olanzapine to 20mg po qhs and 10mg po daily. 11/07 continue tx. 12/04 continue tx. 12/05: no changes 12/06 continue tx. 12/12: continue plan of care 12/13: continue tx 12/19 continue current tx plan 12/25: appearing sedated, more of a falls risk, poorer ability to do ADLs. decrease trileptal dosing from 600 BID to 300 BID for now. 12/26: less sedated than yesterday, continue current mgmt, including 1:1, until attending can see pt in the morning. 12/30: continues less sedated. minimally interactive. continue current mgmt. 12/31: per HCP, not at baseline, over-sedated. begin valium taper. decrease valium 5 TID to 4 TID for now. per HCP and SW, HCP has been affirmed in court. IM back-up orders in place and to be enforced by nursing staff. no aggressive or agitated behaviors. 01/02: Continue current regimen and plans Plan 1. Continue with olanzapine 10 mg p.o. q.a.m. and 20 mg p.o. q.h.s., he refused p.o. he received olanzapine IM. 2. Continue with Valium 5 mg p.o. t.i.d. if he refuses he will get Valium IM. 3. We will encourage compliance. The patient had been noncompliant with sertraline, he remains dysphoric. 4. The patient has a healthcare proxy who was affirmed by court, and they want us to medicate him even if the patient does not want to be compliant. 5. At this moment the patient is slightly over-sedated with EPS but we will keep the same dose of antipsychotics since his violence has improved. 01/03/25 Continue plan of care Reassess treatment plan which includes IM medication patient has been much less aggressive than he has in the past Unclear discharge plan at this point 01/04/2025 Patient taking Valium and olanzapine regularly has IM prescribed if refuses intermittently taking medication for diabetes hypertension 01/05/25 Cont medicationhas been stabilizing try and d/c meds that are not esential simplify regimen 01/06/25 stop namenda monitor sugar / bp encourage med acceptance cont valium olanzapine 01/08/2025 Continue olanzapine Valium metformin try and taper and simplify medication as tolerated discharge planning monitor response to change in medication 01/09/25 Try and simplify med regimen d/c planning 01/11/2025 Patient generally more cooperative not agitated generally monitor blood sugar and blood pressure intermittently refuses some doses of metformin 01/12/25 Pt seen later in day seemed stable flat some balance problems noted lowwer trileptal and primidone ck ortho vs dailypt consult for balance Reason for continued inpatient stay Substantial Risk for: inability to function, rapid decompensation and med/psych decompensation Time Spent With Patient Time: Total time managing care of this patient today ____ minutes.
--- NOTE | 2025-01-12 14:36 | PC.NURSE ---
Patient sound asleep, 1500 Diazepam held, updated.
[2025-01-12 19:36] VITALS: BP 98/62; PULSE 75; RESP 15; TEMP 36.7; O2SAT 93
[2025-01-12] MEDS: Mirtazapine 30 MG TABLET PO (19:38)
[2025-01-12] MEDS: Sertraline HCL 100 MG TABLET PO (19:38)
[2025-01-12] MEDS: OLANZapine 10 MG TABLET 20 MG PO (19:38)
[2025-01-13 08:00] VITALS: BP 128/77; PULSE 76; RESP 20; TEMP 36.7; O2SAT 97
[2025-01-13] MEDS: Empagliflozin 10 MG TABLET PO (08:45)
[2025-01-13] MEDS: lisinopriL 20 MG TABLET PO (08:45)
[2025-01-13] MEDS: metFORMIN HCl ER 500 MG TAB.ER.24H 1000 MG PO (08:46)
[2025-01-13] MEDS: diazePAM 2 MG TABLET 4 MG PO ×3 (08:46→20:25)
[2025-01-13] MEDS: OLANZapine ODT 10 MG TAB.RAPDIS TRANSLINGU (08:46)
[2025-01-13] MEDS: Primidone 50 MG TABLET 25 MG PO ×2 (08:48→20:25)
[2025-01-13 09:15] VITALS: BP 98/62; PULSE 75; O2SAT 93
[2025-01-13 09:32] VITALS: BMI 27.3
--- NOTE | 2025-01-13 10:27 | P.PNPSI_ITS ---
Subjective Subjective Reason For Visit: Anxiety, mood disorder, ASD Diagnostics Vital Signs (24Hr): Vital Signs - 24 hr 01/12/25 12:50 01/12/25 12:53 01/12/25 13:20 Temperature 97.5 F 97.5 F Pulse Rate 103 H 104 H 103 H Respiratory Rate 18 15 Blood Pressure 123/82 113/80 113/81 Pulse Oximetry 98 98 Oxygen Delivery Method Room Air Room Air 01/12/25 19:36 01/13/25 08:00 01/13/25 09:15 Temperature 98.1 F 98.1 F Pulse Rate 75 76 75 Respiratory Rate 15 20 Blood Pressure 98/62 128/77 98/62 Pulse Oximetry 93 97 93 Oxygen Delivery Method Room Air Room Air BMI result Body Mass Index 27.3 Labs 10/28/24 09:10 12/31/24 09:01 Labs: Laboratory Results - last 48 hr 01/12/25 12:56 POC Glucose 142 H Imaging Radiology Impressions: ITS Impressions Hip X-Ray 01/12/25 13:30 IMPRESSION: No evidence of fracture of the bilateral hips. Electronically signed by: Kaushal Soni MD 01/12/2025 01:54 PM EDT RP Medications Medications Current Medications Acetaminophen (Acetaminophen 325 Mg Tablet) 650 mg PO Q6H PRN PRN Reason: Headache/Pain Mild Scale (1-3) Al Hydroxide/Mg Hydroxide (Magnesium Hydrox/Alum Hydrox 30 Ml Oral.Susp) 30 ml PO Q6H PRN PRN Reason: Heartburn/Nausea Benztropine Mesylate (Benztropine Mesylate 1 Mg Tablet) 1 mg PO BEDTIME PRN PRN Reason: Extrapyramidal Effects Diazepam (Diazepam 10 Mg/2 Ml Cartridge) 5 mg IM TID PRN PRN Reason: PO refusal. HOLD FOR SEDATION Last Admin: 12/21/24 10:22 Dose: 5 mg Diazepam (Diazepam 2 Mg Tablet) 4 mg PO TID [facility] Last Admin: 01/13/25 08:46 Dose: 4 mg Empagliflozin (Empagliflozin 10 Mg Tablet) 10 mg PO DAILY [facility] Last Admin: 01/13/25 08:45 Dose: 10 mg Hydroxyzine HCl (Hydroxyzine Hcl 25 Mg Tablet) 25 mg PO Q6H PRN PRN Reason: Anxiety Last Admin: 11/18/24 17:38 Dose: 25 mg Lisinopril (Lisinopril 20 Mg Tablet) 20 mg PO DAILY [facility]; Protocol Last Admin: 01/13/25 08:45 Dose: 20 mg Magnesium Hydroxide (Milk Of Magnesia 30 Ml Oral.Susp) 30 ml PO DAILY PRN PRN Reason: Constipation Last Admin: 01/05/25 09:27 Dose: 30 ml Metformin HCl (Metformin Hcl Er 500 Mg Tab.Er.24h) 1,000 mg PO DAILY [facility] Last Admin: 01/13/25 08:46 Dose: 1,000 mg Mirtazapine (Mirtazapine 30 Mg Tablet) 30 mg PO BEDTIME [facility] Last Admin: 01/12/25 19:38 Dose: 30 mg Nicotine (Nicotine 21 Mg Patch.Td24) 21 mg TRANSDERMA DAILY PRN PRN Reason: nicotine cravings Nicotine Polacrilex (Nicotine Polacrilex 2 Mg Gum) 4 mg BUCCAL Q2H PRN PRN Reason: Nicotine Cravings Olanzapine (Olanzapine 10 Mg Tablet) 20 mg PO BEDTIME [facility] Last Admin: 01/12/25 19:38 Dose: 20 mg Olanzapine (Olanzapine Odt 10 Mg Tab.Rapdis) 10 mg TRANSLINGU DAILY [facility] Last Admin: 01/13/25 08:46 Dose: 10 mg Olanzapine (Olanzapine 10 Mg Vial) 10 mg IM BID PRN PRN Reason: PO refusal Last Admin: 12/21/24 10:22 Dose: 10 mg Oxcarbazepine (Oxcarbazepine 300 Mg Tablet) 300 mg PO BEDTIME [facility] Primidone (Primidone 50 Mg Tablet) 25 mg PO BID [facility] Last Admin: 01/13/25 08:48 Dose: 25 mg Sertraline HCl (Sertraline Hcl 100 Mg Tablet) 100 mg PO BEDTIME [facility] Last Admin: 01/12/25 19:38 Dose: 100 mg Trazodone HCl (Trazodone Hcl 50 Mg Tablet) 50 mg PO BEDTIME PRN PRN Reason: Insomnia Allergies Allergies Allergy/AdvReac Type Severity Reaction Status Date / Time No Known Allergies Allergy Verified 10/14/24 18:14 [No Known Allergies*] Assessment & Plan Assessment & Plan (1) Mood disorder: Status: Acute Code(s): F39 - Unspecified mood [affective] disorder (2) Autism spectrum disorder: Status: Acute Code(s): F84.0 - Autistic disorder (3) Neurocognitive disorder: Status: Acute Code(s): R41.9 - Unspecified symptoms and signs involving cognitive functions and awareness Plan Humza was admitted for safety and stabilization. His presentation is very similar to his last admission psychiatrically about a year ago and that is why his caregivers wanted to get ahead of things before he decompensated further. Current medications were reviewed and maintained. Contacts to be made with his treaters next week. 10/17: Continue current regimen and plans 10/19: Continue current tx plan and regime. 10/21: Memantine 5 mg daily- [facility], memory sx Abilify 2 mg daily-augment to antidepressants currently being used. 10/22 continue current tx plan -pt confused 10/23 Continue trials, regime and plan. 10/24: Continue regime and plan of care. 10/25 Abilify increased up to 5 mg. 10/26 keep on same treatment 10/27/24 continues with many complaints, no clear insight into self- 10/28 continue same treatment 10/29 increase Namenda to 5 mg p.o. b.i.d. and change Depakote to Depakene. Depakote level on 13/02 as per blood work of yesterday 10/30/24 - de [employer] olanzapine = continue depakene as he did take 5 capsules this am- prn olanzapine given - this afternoon for behaviors on unit- 10/31/24 wrote for liquid depakote option if refuses capsules, also got prn olanzapine for throwing self on floor 11/01 keep same treatment 11/02 increase Zyprexa to 20 mg p.o. q.h.s. 11/03 keep same treatment. 11/04 discontinue Depakote and start Trileptal 300 mg p.o. b.i.d.. Her healthcare proxy will bring a copy of that we are going to invoke it 11/06 increase olanzapine to 20mg po qhs and 10mg po daily. 11/07 continue tx. 12/04 continue tx. 12/05: no changes 12/06 continue tx. 12/12: continue plan of care 12/13: continue tx 12/19 continue current tx plan 12/25: appearing sedated, more of a falls risk, poorer ability to do ADLs. decrease trileptal dosing from 600 BID to 300 BID for now. 3/2: less sedated than yesterday, continue current mgmt, including 1:1, until attending can see pt in the morning. 12/30: continues less sedated. minimally interactive. continue current mgmt. 12/31: per HCP, not at baseline, over-sedated. begin valium taper. decrease valium 5 TID to 4 TID for now. per HCP and SW, HCP has been affirmed in court. IM back-up orders in place and to be enforced by nursing staff. no aggressive or agitated behaviors. 01/02: Continue current regimen and plans Plan 1. Continue with olanzapine 10 mg p.o. q.a.m. and 20 mg p.o. q.h.s., he refused p.o. he received olanzapine IM. 2. Continue with Valium 5 mg p.o. t.i.d. if he refuses he will get Valium IM. 3. We will encourage compliance. The patient had been noncompliant with sertraline, he remains dysphoric. 4. The patient has a healthcare proxy who was affirmed by court, and they want us to medicate him even if the patient does not want to be compliant. 5. At this moment the patient is slightly over-sedated with EPS but we will keep the same dose of antipsychotics since his violence has improved. 01/03/25 Continue plan of care Reassess treatment plan which includes IM medication patient has been much less aggressive than he has in the past Unclear discharge plan at this point 01/04/2025 Patient taking Valium and olanzapine regularly has IM prescribed if refuses intermittently taking medication for diabetes hypertension 01/05/25 Cont medicationhas been stabilizing try and d/c meds that are not esential simplify regimen 01/06/25 stop namenda monitor sugar / bp encourage med acceptance cont valium olanzapine 01/08/2025 Continue olanzapine Valium metformin try and taper and simplify medication as tolerated discharge planning monitor response to change in medication 01/09/25 Try and simplify med regimen d/c planning 01/11/2025 Patient generally more cooperative not agitated generally monitor blood sugar and blood pressure intermittently refuses some doses of metformin 01/12/25 Pt seen later in day seemed stable flat some balance problems noted lowwer trileptal and primidone ck ortho vs dailypt consult for balance Time Spent With Patient Time: Total time managing care of this patient today ____ minutes.
[2025-01-13 20:00] VITALS: BP 106/69; PULSE 78; RESP 18; TEMP 36.3; O2SAT 98
[2025-01-13] MEDS: OLANZapine 10 MG TABLET 20 MG PO (20:24)
[2025-01-13] MEDS: Sertraline HCL 100 MG TABLET PO (20:24)
[2025-01-13] MEDS: OXcarbazepine 300 MG TABLET PO (20:24)
[2025-01-13] MEDS: Mirtazapine 30 MG TABLET PO (20:25)
--- NOTE | 2025-01-13 22:36 | HO.PSYCHPN ---
Subjective Subjective Date of Service: 01/06/25 Reason For Visit: Anxiety, mood disorder, ASD Subjective Notes: [place] Order Interim History: Patient's case reviewed in treatment planning chart reviewed patient seen. Patient has been much more accepting of medications vital signs stable. No repeat fall Medication Compliance: Yes Attending Groups: No Mental Status Exam Mental Status Exam Patient Appearance: Appropriate Patient Orientation: Person Level of Consciousness: Awake Patient Behavior: Cooperative and Passive Mood Description: Withdrawn, Constricted and Blunted Affect Description: Blunted Patient Cognition Impaired: Yes Ability to Follow Directions: Good Speech Pattern: Monotone, Delayed and Long Pauses Hallucinations: None Thought Process: Distracted and Slowed Thinking Thought Content: positive for Poverty of Content and positive for Thought Blocking Judgement: Fair Diagnostics Vital Signs (24Hr): Vital Signs - 24 hr 01/13/25 08:00 01/13/25 09:15 01/13/25 20:00 Temperature 98.1 F 97.4 F Pulse Rate 76 75 78 Respiratory Rate 20 18 Blood Pressure 128/77 98/62 106/69 Pulse Oximetry 97 93 98 Oxygen Delivery Method Room Air Room Air BMI result Body Mass Index 27.3 Labs 10/28/24 09:10 12/31/24 09:01 Labs: Laboratory Results - last 48 hr 01/12/25 12:56 POC Glucose 142 H Imaging Radiology Impressions: ITS Impressions Hip X-Ray 01/12/25 13:30 IMPRESSION: No evidence of fracture of the bilateral hips. Electronically signed by: Kaushal Soni MD 01/12/2025 01:54 PM EDT RP Medications Medications Current Medications Acetaminophen (Acetaminophen 325 Mg Tablet) 650 mg PO Q6H PRN PRN Reason: Headache/Pain Mild Scale (1-3) Benztropine Mesylate (Benztropine Mesylate 1 Mg Tablet) 1 mg PO BEDTIME PRN PRN Reason: Extrapyramidal Effects Diazepam (Diazepam 10 Mg/2 Ml Cartridge) 5 mg IM TID PRN PRN Reason: PO refusal. HOLD FOR SEDATION Last Admin: 12/21/24 10:22 Dose: 5 mg Diazepam (Diazepam 2 Mg Tablet) 4 mg PO TID DESIRAE Last Admin: 01/13/25 20:25 Dose: 4 mg Empagliflozin (Empagliflozin 10 Mg Tablet) 10 mg PO DAILY DESIRAE Last Admin: 01/13/25 08:45 Dose: 10 mg Lisinopril (Lisinopril 20 Mg Tablet) 20 mg PO DAILY DESIRAE; Protocol Last Admin: 01/13/25 08:45 Dose: 20 mg Metformin HCl (Metformin Hcl Er 500 Mg Tab.Er.24h) 1,000 mg PO DAILY [facility] Last Admin: 01/13/25 08:46 Dose: 1,000 mg Mirtazapine (Mirtazapine 30 Mg Tablet) 30 mg PO BEDTIME DESIRAE Last Admin: 01/13/25 20:25 Dose: 30 mg Nicotine Polacrilex (Nicotine Polacrilex 2 Mg Gum) 4 mg BUCCAL Q2H PRN PRN Reason: Nicotine Cravings Olanzapine (Olanzapine 10 Mg Tablet) 20 mg PO BEDTIME DESIRAE Last Admin: 01/13/25 20:24 Dose: 20 mg Olanzapine (Olanzapine Odt 10 Mg Tab.Rapdis) 10 mg TRANSLINGU DAILY [facility] Last Admin: 01/13/25 08:46 Dose: 10 mg Olanzapine (Olanzapine 10 Mg Vial) 10 mg IM BID PRN PRN Reason: PO refusal Last Admin: 12/21/24 10:22 Dose: 10 mg Oxcarbazepine (Oxcarbazepine 300 Mg Tablet) 300 mg PO BEDTIME DESIRAE Last Admin: 01/13/25 20:24 Dose: 300 mg Primidone (Primidone 50 Mg Tablet) 25 mg PO BID DESIRAE Last Admin: 01/13/25 20:25 Dose: 25 mg Sertraline HCl (Sertraline Hcl 100 Mg Tablet) 100 mg PO BEDTIME DESIRAE Last Admin: 01/13/25 20:24 Dose: 100 mg Trazodone HCl (Trazodone Hcl 50 Mg Tablet) 50 mg PO BEDTIME PRN PRN Reason: Insomnia Allergies Allergies Allergy/AdvReac Type Severity Reaction Status Date / Time No Known Allergies Allergy Verified 10/14/24 18:14 [No Known Allergies*] Assessment & Plan Assessment & Plan (1) Mood disorder: Status: Acute Code(s): F39 - Unspecified mood [affective] disorder (2) Autism spectrum disorder: Status: Acute Code(s): F84.0 - Autistic disorder (3) Neurocognitive disorder: Status: Acute Code(s): R41.9 - Unspecified symptoms and signs involving cognitive functions and awareness Plan Humza was admitted for safety and stabilization. His presentation is very similar to his last admission psychiatrically about a year ago and that is why his caregivers wanted to get ahead of things before he decompensated further. Current medications were reviewed and maintained. Contacts to be made with his treaters next week. 10/17: Continue current regimen and plans 10/19: Continue current tx plan and regime. 10/21: Memantine 5 mg daily- [facility]CI, memory sx Abilify 2 mg daily-augment to antidepressants currently being used. 10/22 continue current tx plan -pt confused 10/23 Continue trials, regime and plan. 10/24: Continue regime and plan of care. 10/25 Abilify increased up to 5 mg. 10/26 keep on same treatment 10/27/24 continues with many complaints, no clear insight into self- 10/28 continue same treatment 10/29 increase Namenda to 5 mg p.o. b.i.d. and change Depakote to Depakene. Depakote level on 13/02 as per blood work of yesterday 10/30/24 - [facility] [employer] [facility] olanzapine = continue depakene as he did take 5 capsules this am- prn olanzapine given - this afternoon for behaviors on unit- 10/31/24 wrote for liquid depakote option if refuses capsules, also got prn olanzapine for throwing self on floor 11/01 keep same treatment 11/02 increase Zyprexa to 20 mg p.o. q.h.s. 11/03 keep same treatment. 11/04 discontinue Depakote and start Trileptal 300 mg p.o. b.i.d.. Her healthcare proxy will bring a copy of that we are going to invoke it 11/06 increase olanzapine to 20mg po qhs and 10mg po daily. 11/07 continue tx. 12/04 continue tx. 12/05: no changes 12/06 continue tx. 12/12: continue plan of care 12/13: continue tx 12/19 continue current tx plan 12/25: appearing sedated, more of a falls risk, poorer ability to do ADLs. decrease trileptal dosing from 600 BID to 300 BID for now. 12/26: less sedated than yesterday, continue current mgmt, including 1:1, until attending can see pt in the morning. 12/30: continues less sedated. minimally interactive. continue current mgmt. 12/31: per HCP, not at baseline, over-sedated. begin valium taper. decrease valium 5 TID to 4 TID for now. per HCP and SW, HCP has been affirmed in court. IM back-up orders in place and to be enforced by nursing staff. no aggressive or agitated behaviors. 01/02: Continue current regimen and plans Plan 1. Continue with olanzapine 10 mg p.o. q.a.m. and 20 mg p.o. q.h.s., he refused p.o. he received olanzapine IM. 2. Continue with Valium 5 mg p.o. t.i.d. if he refuses he will get Valium IM. 3. We will encourage compliance. The patient had been noncompliant with sertraline, he remains dysphoric. 4. The patient has a healthcare proxy who was affirmed by court, and they want us to medicate him even if the patient does not want to be compliant. 5. At this moment the patient is slightly over-sedated with EPS but we will keep the same dose of antipsychotics since his violence has improved. 01/03/25 Continue plan of care Reassess treatment plan which includes IM medication patient has been much less aggressive than he has in the past Unclear discharge plan at this point 01/04/2025 Patient taking Valium and olanzapine regularly has IM prescribed if refuses intermittently taking medication for diabetes hypertension 01/05/25 Cont medicationhas been stabilizing try and d/c meds that are not esential simplify regimen 01/06/25 stop namenda monitor sugar / bp encourage med acceptance cont valium olanzapine 01/08/2025 Continue olanzapine Valium metformin try and taper and simplify medication as tolerated discharge planning monitor response to change in medication 01/09/25 Try and simplify med regimen d/c planning 01/11/2025 Patient generally more cooperative not agitated generally monitor blood sugar and blood pressure intermittently refuses some doses of metformin 01/12/25 Pt seen later in day seemed stable flat some balance problems noted lowwer trileptal and primidone ck ortho vs dailypt consult for balance 01/13/2025 Patient improving less reactive has not been aggressive more cooperative with treatment and medication. Discharge planning Reason for continued inpatient stay Substantial Risk for: harm to others, inability to function and rapid decompensation Time Spent With Patient Time: Total time managing care of this patient today ____ minutes.
[2025-01-14 07:15] VITALS: BP 124/67; PULSE 67
[2025-01-14 07:20] VITALS: BP 131/81; PULSE 79
[2025-01-14 07:23] VITALS: BP 121/71; PULSE 67
[2025-01-14 07:34] LABS: Glucose, Whole Blood 118 mg/dL (60-115)
--- NOTE | 2025-01-14 07:45 | PM.EVENT ---
Event Note Date of Service: 01/14/25 Event Note: 64 y/o M rapid response called for unwitnessed fall in bathroom. Pt states that he lost my balance? and fell over. Denies lightheadedness or dizziness. Patient was lying near the sink/might have hit his head.no head or neck or body bruises . We helped him to stand up and then patient walked with walker to his bed. As per the staff patient is eating and hydrating well. Patient denies any chest pain or palpitations or losing consciousness. No headache. Denies musculoskeletal pain, including shoulders, arms, hips, and legs. Pt noted to be tremulous. MS and Neuro: cn 2-12 intact, ROM of upper and lower extremities appears intact. No tenderness to palpation of shoulders, elbows, or hips. Vitals stable as well as fingersticks and sats. plan: checked orthostatic negative Cervical spine and head CT as well as bilateral hip [id number] Please check with PT to follow-up on him Consider close observation might help with preventing further falls, may need one-to-one. Time Spent With Patient Time: Total time managing care of this patient today ____ minutes.
[2025-01-14 08:00] VITALS: BP 131/81; PULSE 79; RESP 18; TEMP 36.3; O2SAT 100
[2025-01-14 09:07] LABS: Creatinine Clr Calc Pharmacy 74.4; Estimated Glomerular Filt Rate > 60
[2025-01-14] MEDS: diazePAM 2 MG TABLET 4 MG PO ×3 (09:34→20:01)
[2025-01-14] MEDS: lisinopriL 20 MG TABLET PO (09:34)
[2025-01-14] MEDS: metFORMIN HCl ER 500 MG TAB.ER.24H 1000 MG PO (09:34)
[2025-01-14] MEDS: Primidone 50 MG TABLET 25 MG PO ×2 (09:35→20:02)
[2025-01-14] MEDS: Empagliflozin 10 MG TABLET PO (09:35)
[2025-01-14] MEDS: OLANZapine ODT 10 MG TAB.RAPDIS TRANSLINGU ×2 (09:35→12:16)
--- NOTE | 2025-01-14 13:49 | P.PNPSI_ITS ---
Subjective Subjective Date of Service: 01/14/25 Reason For Visit: Anxiety, mood disorder, ASD Interim History: calm, cooperative. asking about wheelchair. informed he will be ambulating on his own with 1:1 for now. no other complaints or requests. per staff, fell at 0700. head and cspine CT WNL, pelvic XR WNL. Mental Status Exam Mental Status Exam Patient Appearance: Appropriate Patient Orientation: Person Level of Consciousness: Awake Patient Behavior: Cooperative and Passive Mood Description: Withdrawn, Constricted and Blunted Affect Description: Blunted Patient Cognition Impaired: Yes Ability to Follow Directions: Good Speech Pattern: Monotone, Delayed and Long Pauses Hallucinations: None Thought Process: Distracted and Slowed Thinking Thought Content: positive for Poverty of Content and positive for Thought Blocking Judgement: Fair Diagnostics Vital Signs (24Hr): Vital Signs - 24 hr 01/13/25 20:00 01/14/25 07:15 01/14/25 07:20 Temperature 97.4 F Pulse Rate 78 67 79 Respiratory Rate 18 Blood Pressure 106/69 124/67 131/81 Pulse Oximetry 98 Oxygen Delivery Method Room Air 01/14/25 08:00 01/14/25 09:54 Temperature 97.3 F Pulse Rate 79 67 Respiratory Rate 18 Blood Pressure 131/81 121/71 Pulse Oximetry 100 Oxygen Delivery Method Room Air BMI result Body Mass Index 27.3 Labs 10/28/24 09:10 01/14/25 08:30 Labs: Laboratory Results - last 48 hr 01/14/25 01/14/25 07:15 08:30 Creatinine 0.97 Estim Creat Clear Calc 74.4 Estimated GFR > 60 POC Glucose 118 H Imaging Radiology Impressions: ITS Impressions Hip X-Ray 01/12/25 13:30 IMPRESSION: No evidence of fracture of the bilateral hips. Electronically signed by: Kaushal Soni MD 01/12/2025 01:54 PM EDT RP Cervical Spine CT 01/14/25 07:59 IMPRESSION: Multilevel cervical spondylosis without acute fracture or trauma-related listhesis. Fleischner guidelines were followed. Electronically signed by: Abe Griffin MD 01/14/2025 09:50 AM EDT RP Hip/Pelvis X-Ray 01/14/25 09:10 IMPRESSION: No acute fracture or dislocation. Electronically signed by: Abe Griffin MD 01/14/2025 10:35 AM EDT Medications Medications Current Medications Acetaminophen (Acetaminophen 325 Mg Tablet) 650 mg PO Q6H PRN PRN Reason: Headache/Pain Mild Scale (1-3) Benztropine Mesylate (Benztropine Mesylate 1 Mg Tablet) 1 mg PO BEDTIME PRN PRN Reason: Extrapyramidal Effects Diazepam (Diazepam 10 Mg/2 Ml Cartridge) 5 mg IM TID PRN PRN Reason: PO refusal. HOLD FOR SEDATION Last Admin: 12/21/24 10:22 Dose: 5 mg Diazepam (Diazepam 2 Mg Tablet) 4 mg PO TID DESIRAE Last Admin: 01/14/25 09:34 Dose: 4 mg Empagliflozin (Empagliflozin 10 Mg Tablet) 10 mg PO DAILY [facility] Last Admin: 01/14/25 09:35 Dose: 10 mg Lisinopril (Lisinopril 20 Mg Tablet) 20 mg PO DAILY [facility]; Protocol Last Admin: 01/14/25 09:34 Dose: 20 mg Metformin HCl (Metformin Hcl Er 500 Mg Tab.Er.24h) 1,000 mg PO DAILY [facility] Last Admin: 01/14/25 09:34 Dose: 1,000 mg Mirtazapine (Mirtazapine 30 Mg Tablet) 30 mg PO BEDTIME [facility]IRAE Last Admin: 01/13/25 20:25 Dose: 30 mg Nicotine Polacrilex (Nicotine Polacrilex 2 Mg Gum) 4 mg BUCCAL Q2H PRN PRN Reason: Nicotine Cravings Olanzapine (Olanzapine 10 Mg Tablet) 20 mg PO BEDTIME DESIRAE Last Admin: 01/13/25 20:24 Dose: 20 mg Olanzapine (Olanzapine Odt 10 Mg Tab.Rapdis) 10 mg TRANSLINGU DAILY [facility] Last Admin: 01/14/25 09:35 Dose: 10 mg Olanzapine (Olanzapine 10 Mg Vial) 10 mg IM BID PRN PRN Reason: PO refusal Last Admin: 12/21/24 10:22 Dose: 10 mg Olanzapine (Olanzapine Odt 10 Mg Tab.Rapdis) 10 mg TRANSLINGU BID PRN PRN Reason: agitation Last Admin: 01/14/25 12:16 Dose: 10 mg Oxcarbazepine (Oxcarbazepine 300 Mg Tablet) 300 mg PO BEDTIME DESIRAE Last Admin: 01/13/25 20:24 Dose: 300 mg Primidone (Primidone 50 Mg Tablet) 25 mg PO BID [facility] Last Admin: 01/14/25 09:35 Dose: 25 mg Sertraline HCl (Sertraline Hcl 100 Mg Tablet) 100 mg PO BEDTIME [facility] Last Admin: 01/13/25 20:24 Dose: 100 mg Trazodone HCl (Trazodone Hcl 50 Mg Tablet) 50 mg PO BEDTIME PRN PRN Reason: Insomnia Allergies Allergies Allergy/AdvReac Type Severity Reaction Status Date / Time No Known Allergies Allergy Verified 10/14/24 18:14 [No Known Allergies*] Assessment & Plan Assessment & Plan (1) Mood disorder: Status: Acute Code(s): F39 - Unspecified mood [affective] disorder (2) Autism spectrum disorder: Status: Acute Code(s): F84.0 - Autistic disorder (3) Neurocognitive disorder: Status: Acute Code(s): R41.9 - Unspecified symptoms and signs involving cognitive functions and awareness Plan Humza was admitted for safety and stabilization. His presentation is very similar to his last admission psychiatrically about a year ago and that is why his caregivers wanted to get ahead of things before he decompensated further. Current medications were reviewed and maintained. Contacts to be made with his treaters next week. 10/17: Continue current regimen and plans 10/19: Continue current tx plan and regime. 10/21: Memantine 5 mg daily- [facility], memory sx Abilify 2 mg daily-augment to antidepressants currently being used. 10/22 continue current tx plan -pt confused 10/23 Continue trials, regime and plan. 10/24: Continue regime and plan of care. 10/25 Abilify increased up to 5 mg. 10/26 keep on same treatment 10/27/24 continues with many complaints, no clear insight into self- 10/28 continue same treatment 10/29 increase Namenda to 5 mg p.o. b.i.d. and change Depakote to Depakene. Depakote level on 13/02 as per blood work of yesterday 10/30/24 - ut abilify inc olanzapine = continue depakene as he did take 5 capsules this am- prn olanzapine given - this afternoon for behaviors on unit- 10/31/24 wrote for liquid depakote option if refuses capsules, also got prn olanzapine for throwing self on floor 11/01 keep same treatment 11/02 increase Zyprexa to 20 mg p.o. q.h.s. 11/03 keep same treatment. 11/04 discontinue Depakote and start Trileptal 300 mg p.o. b.i.d.. Her healthcare proxy will bring a copy of that we are going to invoke it 11/06 increase olanzapine to 20mg po qhs and 10mg po daily. 11/07 continue tx. 12/04 continue tx. 12/05: no changes 12/06 continue tx. 12/12: continue plan of care 12/13: continue tx 12/19 continue current tx plan 12/25: appearing sedated, more of a falls risk, poorer ability to do ADLs. decrease trileptal dosing from 600 BID to 300 BID for now. 12/26: less sedated than yesterday, continue current mgmt, including 1:1, until attending can see pt in the morning. 12/30: continues less sedated. minimally interactive. continue current mgmt. 12/31: per HCP, not at baseline, over-sedated. begin valium taper. decrease valium 5 TID to 4 TID for now. per HCP and SW, HCP has been affirmed in court. IM back-up orders in place and to be enforced by nursing staff. no aggressive or agitated behaviors. 01/02: Continue current regimen and plans Plan 1. Continue with olanzapine 10 mg p.o. q.a.m. and 20 mg p.o. q.h.s., he refused p.o. he received olanzapine IM. 2. Continue with Valium 5 mg p.o. t.i.d. if he refuses he will get Valium IM. 3. We will encourage compliance. The patient had been noncompliant with sertraline, he remains dysphoric. 4. The patient has a healthcare proxy who was affirmed by court, and they want us to medicate him even if the patient does not want to be compliant. 5. At this moment the patient is slightly over-sedated with EPS but we will keep the same dose of antipsychotics since his violence has improved. 01/03/25 Continue plan of care Reassess treatment plan which includes IM medication patient has been much less aggressive than he has in the past Unclear discharge plan at this point 01/04/2025 Patient taking Valium and olanzapine regularly has IM prescribed if refuses intermittently taking medication for diabetes hypertension 01/05/25 Cont medicationhas been stabilizing try and d/c meds that are not esential simplify regimen 01/06/25 stop namenda monitor sugar / bp encourage med acceptance cont valium olanzapine 01/08/2025 Continue olanzapine Valium metformin try and taper and simplify medication as tolerated discharge planning monitor response to change in medication 01/09/25 Try and simplify med regimen d/c planning 01/11/2025 Patient generally more cooperative not agitated generally monitor blood sugar and blood pressure intermittently refuses some doses of metformin 01/12/25 Pt seen later in day seemed stable flat some balance problems noted lowwer trileptal and primidone ck ortho vs dailypt consult for balance 01/13/2025 Patient improving less reactive has not been aggressive more cooperative with treatment and medication. Discharge planning 01/14: fell this morning, per head/c-spine CT and pelvic XR, no osseus injuries. pt appears as at recent mental status. no complaints or requests other than for wheelchair. pt will have 1:1 for ambulation for now. continue current psychopharm mgmt. Reason for continued inpatient stay Substantial Risk for: inability to function and rapid decompensation Time Spent With Patient Time: Total time managing care of this patient today _25___ minutes.
--- NOTE | 2025-01-14 14:37 | PC.NURSE ---
Unattended fall this am in bathroom at 0705. Rapid response called. Cervical collar placed, transferred via gurney for Cervical Spine CT at 0759. Placed on 1:1 observation. Returned to unit and transferred to bed. Xray hips and pelvis done at 0910. Transferred to xray in wheelchair and remained in wheelchair upon return to unit while waiting for results of xray. Attempted to remove cervical collar and required redirection from staff to continue use until results of CT scan received. Encouraged to remain in wheelchair until xray results received. Dr Ponce notified results/report in at 1033 and questioned for further instructions for cervical collar. CT and xray results reviewed by Dr Abel at 1126. Cervical collar removed, pt transferred out of wheelchair per Dr Abel. Gait steady with supervision, remains on 1:1 observation.
--- NOTE | 2025-01-14 16:43 | PC.NURSE ---
The patient had unwitnessed fall in his bathroom at 0705 He was found lying near the sink by staff who then informed the CC Nandini Culver, [employer] was called and assessment done. He denied dizziness, pain and injury. He was helped to stand up and used his walker to his bed.. He denied dizziness, pain and injury. ROM of upper and lower extremities appeared intact. Vital signs while sitting 97.8-18-85-121/71 with O2 Sat 98% on room air, while standing 97.8-41-34-100-134/81, POC was 118. The patient stated that he lost balance and fell over. HCP Darcy notified when she visited at 1000.? ?Cervical collar placed, transferred via [facility] for Cervical Spine CT at 0759,? placed on 1:1 observation. Returned to the unit and transferred to bed, X-ray of hips and pelvis done at 0910 with no significant findings. Transferred to x-ray in wheelchair and remained in wheelchair upon return to the unit while waiting for results of xray. Attempted to remove cervical collar and required redirection from staff to continue use until results of CT scan received. Encouraged to remain in wheelchair until xray results received. Dr Ponce notified results/report in at 1033 and questioned for further instructions for cervical collar. CT and xray results reviewed by Dr Abel at 1126. Cervical collar removed, pt transferred out of wheelchair per Dr Abel. Gait steady with supervision, remains on 1:1 observation.?
[2025-01-14 20:00] VITALS: BP 99/58; PULSE 96; RESP 18; TEMP 36; O2SAT 94
[2025-01-14] MEDS: OLANZapine 10 MG TABLET 20 MG PO (20:01)
[2025-01-14] MEDS: OXcarbazepine 300 MG TABLET PO (20:02)
[2025-01-14] MEDS: Sertraline HCL 100 MG TABLET PO (20:02)
[2025-01-14] MEDS: Mirtazapine 30 MG TABLET PO (20:02)
[2025-01-15 08:00] VITALS: BP 111/75; PULSE 84; RESP 18; TEMP 36.2; O2SAT 96
[2025-01-15] MEDS: diazePAM 2 MG TABLET 4 MG PO ×3 (08:22→20:11)
[2025-01-15] MEDS: OLANZapine ODT 10 MG TAB.RAPDIS TRANSLINGU (08:22)
[2025-01-15] MEDS: Empagliflozin 10 MG TABLET PO (08:22)
[2025-01-15] MEDS: metFORMIN HCl ER 500 MG TAB.ER.24H 1000 MG PO (08:23)
[2025-01-15] MEDS: Primidone 50 MG TABLET 25 MG PO ×2 (08:23→20:09)
[2025-01-15 08:24] VITALS: BP 111/75
[2025-01-15] MEDS: lisinopriL 20 MG TABLET PO (08:24)
--- NOTE | 2025-01-15 08:54 | P.PNPSI_ITS ---
Subjective Subjective Date of Service: 01/15/25 Reason For Visit: Anxiety, mood disorder, ASD Interim History: Patient has been calm and cooperative. Compliant with medications. No behavioral concerns. Continues on 1:1 for fall safety. Review of Systems Review of Systems sedation Yes all other systems are reviewed and are negative and Unobtainable due to mental status Mental Status Exam Mental Status Exam Narrative: Patient seen in room. Weighted blanket. Stated he was okay. Pleasant. Would not engage in conversation. Unable to evaluate SI, HI, psychosis. Patient Appearance: Appropriate Patient Orientation: Person Level of Consciousness: Awake Patient Behavior: Cooperative and Passive Mood Description: Withdrawn, Constricted and Blunted Affect Description: Blunted Patient Cognition Impaired: Yes Ability to Follow Directions: Good Speech Pattern: Monotone, Delayed and Long Pauses Memory Description: Remote Impaired Diagnostics Vital Signs (24Hr): Vital Signs - 24 hr 01/14/25 20:00 01/15/25 08:24 Temperature 96.8 F Pulse Rate 96 Respiratory Rate 18 Blood Pressure 99/58 L 111/75 Pulse Oximetry 94 Oxygen Delivery Method Room Air BMI result Body Mass Index 27.3 Labs 10/28/24 09:10 01/14/25 08:30 Labs: Laboratory Results - last 48 hr 01/14/25 01/14/25 07:15 08:30 Creatinine 0.97 Estim Creat Clear Calc 74.4 Estimated GFR > 60 POC Glucose 118 H Imaging Radiology Impressions: ITS Impressions Hip X-Ray 01/12/25 13:30 IMPRESSION: No evidence of fracture of the bilateral hips. Electronically signed by: Kaushal Soni MD 01/12/2025 01:54 PM EDT RP Cervical Spine CT 01/14/25 07:59 IMPRESSION: Multilevel cervical spondylosis without acute fracture or trauma-related listhesis. Fleischner guidelines were followed. Electronically signed by: Abe Griffin MD 01/14/2025 09:50 AM EDT RP Hip/Pelvis X-Ray 01/14/25 09:10 IMPRESSION: No acute fracture or dislocation. Electronically signed by: Abe Griffin MD 01/14/2025 10:35 AM EDT RP Medications Medications Current Medications Acetaminophen (Acetaminophen 325 Mg Tablet) 650 mg PO Q6H PRN PRN Reason: Headache/Pain Mild Scale (1-3) Benztropine Mesylate (Benztropine Mesylate 1 Mg Tablet) 1 mg PO BEDTIME PRN PRN Reason: Extrapyramidal Effects Diazepam (Diazepam 10 Mg/2 Ml Cartridge) 5 mg IM TID PRN PRN Reason: PO refusal. HOLD FOR SEDATION Last Admin: 12/21/24 10:22 Dose: 5 mg Diazepam (Diazepam 2 Mg Tablet) 4 mg PO TID DESIRAE Last Admin: 01/15/25 08:22 Dose: 4 mg Empagliflozin (Empagliflozin 10 Mg Tablet) 10 mg PO DAILY DESIRAE Last Admin: 01/15/25 08:22 Dose: 10 mg Lisinopril (Lisinopril 20 Mg Tablet) 20 mg PO DAILY [facility]; Protocol Last Admin: 01/15/25 08:24 Dose: 20 mg Metformin HCl (Metformin Hcl Er 500 Mg Tab.Er.24h) 1,000 mg PO DAILY DESIRAE Last Admin: 01/15/25 08:23 Dose: 1,000 mg Mirtazapine (Mirtazapine 30 Mg Tablet) 30 mg PO BEDTIME DESIRAE Last Admin: 01/14/25 20:02 Dose: 30 mg Nicotine Polacrilex (Nicotine Polacrilex 2 Mg Gum) 4 mg BUCCAL Q2H PRN PRN Reason: Nicotine Cravings Olanzapine (Olanzapine 10 Mg Tablet) 20 mg PO BEDTIME DESIRAE Last Admin: 01/14/25 20:01 Dose: 20 mg Olanzapine (Olanzapine Odt 10 Mg Tab.Rapdis) 10 mg TRANSLINGU DAILY DESIRAE Last Admin: 01/15/25 08:22 Dose: 10 mg Olanzapine (Olanzapine 10 Mg Vial) 10 mg IM BID PRN PRN Reason: PO refusal Last Admin: 12/21/24 10:22 Dose: 10 mg Olanzapine (Olanzapine Odt 10 Mg Tab.Rapdis) 10 mg TRANSLINGU BID PRN PRN Reason: agitation Last Admin: 01/14/25 12:16 Dose: 10 mg Oxcarbazepine (Oxcarbazepine 300 Mg Tablet) 300 mg PO BEDTIME DESIRAE Last Admin: 01/14/25 20:02 Dose: 300 mg Primidone (Primidone 50 Mg Tablet) 25 mg PO BID DESIRAE Last Admin: 01/15/25 08:23 Dose: 25 mg Sertraline HCl (Sertraline Hcl 100 Mg Tablet) 100 mg PO BEDTIME DESIRAE Last Admin: 01/14/25 20:02 Dose: 100 mg Trazodone HCl (Trazodone Hcl 50 Mg Tablet) 50 mg PO BEDTIME PRN PRN Reason: Insomnia Allergies Allergies Allergy/AdvReac Type Severity Reaction Status Date / Time No Known Allergies Allergy Verified 10/14/24 18:14 [No Known Allergies*] Assessment & Plan Assessment & Plan (1) Mood disorder: Status: Acute Code(s): F39 - Unspecified mood [affective] disorder (2) Autism spectrum disorder: Status: Acute Code(s): F84.0 - Autistic disorder (3) Neurocognitive disorder: Status: Acute Code(s): R41.9 - Unspecified symptoms and signs involving cognitive functions and awareness Plan Humza was admitted for safety and stabilization. His presentation is very similar to his last admission psychiatrically about a year ago and that is why his caregivers wanted to get ahead of things before he decompensated further. Current medications were reviewed and maintained. Contacts to be made with his treaters next week. 10/17: Continue current regimen and plans 10/19: Continue current tx plan and regime. 10/21: Memantine 5 mg daily- [facility]CI, memory sx Abilify 2 mg daily-augment to antidepressants currently being used. 10/22 continue current tx plan -pt confused 10/23 Continue trials, regime and plan. 10/24: Continue regime and plan of care. 10/25 Abilify increased up to 5 mg. 10/26 keep on same treatment 10/27/24 continues with many complaints, no clear insight into self- 10/28 continue same treatment 10/29 increase Namenda to 5 mg p.o. b.i.d. and change Depakote to Depakene. Depakote level on 13/02 as per blood work of yesterday 10/30/24 - dc abilify inc olanzapine = continue depakene as he did take 5 capsules this am- prn olanzapine given - this afternoon for behaviors on unit- 10/31/24 wrote for liquid depakote option if refuses capsules, also got prn olanzapine for throwing self on floor 11/01 keep same treatment 11/02 increase Zyprexa to 20 mg p.o. q.h.s. 11/03 keep same treatment. 11/04 discontinue Depakote and start Trileptal 300 mg p.o. b.i.d.. Her healthcare proxy will bring a copy of that we are going to invoke it 11/06 increase olanzapine to 20mg po qhs and 10mg po daily. 11/07 continue tx. 12/04 continue tx. 12/05: no changes 12/06 continue tx. 12/12: continue plan of care 12/13: continue tx 12/19 continue current tx plan 12/25: appearing sedated, more of a falls risk, poorer ability to do ADLs. decrease trileptal dosing from 600 BID to 300 BID for now. 12/26: less sedated than yesterday, continue current mgmt, including 1:1, until attending can see pt in the morning. 12/30: continues less sedated. minimally interactive. continue current mgmt. 12/31: per HCP, not at baseline, over-sedated. begin valium taper. decrease valium 5 TID to 4 TID for now. per HCP and SW, HCP has been affirmed in court. IM back-up orders in place and to be enforced by nursing staff. no aggressive or agitated behaviors. 01/02: Continue current regimen and plans Plan 1. Continue with olanzapine 10 mg p.o. q.a.m. and 20 mg p.o. q.h.s., he refused p.o. he received olanzapine IM. 2. Continue with Valium 5 mg p.o. t.i.d. if he refuses he will get Valium IM. 3. We will encourage compliance. The patient had been noncompliant with sertraline, he remains dysphoric. 4. The patient has a healthcare proxy who was affirmed by court, and they want us to medicate him even if the patient does not want to be compliant. 5. At this moment the patient is slightly over-sedated with EPS but we will keep the same dose of antipsychotics since his violence has improved. 01/03/25 Continue plan of care Reassess treatment plan which includes IM medication patient has been much less aggressive than he has in the past Unclear discharge plan at this point 01/04/2025 Patient taking Valium and olanzapine regularly has IM prescribed if refuses intermittently taking medication for diabetes hypertension 01/05/25 Cont medicationhas been stabilizing try and d/c meds that are not esential simplify regimen 01/06/25 stop namenda monitor sugar / bp encourage med acceptance cont valium olanzapine 01/08/2025 Continue olanzapine Valium metformin try and taper and simplify medication as tolerated discharge planning monitor response to change in medication 01/09/25 Try and simplify med regimen d/c planning 01/11/2025 Patient generally more cooperative not agitated generally monitor blood sugar and blood pressure intermittently refuses some doses of metformin 01/12/25 Pt seen later in day seemed stable flat some balance problems noted lowwer trileptal and primidone ck ortho vs dailypt consult for balance 01/13/2025 Patient improving less reactive has not been aggressive more cooperative with treatment and medication. Discharge planning 01/14: fell this morning, per head/c-spine CT and pelvic XR, no osseus injuries. pt appears as at recent mental status. no complaints or requests other than for wheelchair. pt will have 1:1 for ambulation for now. continue current psychopharm mgmt. 01/15: Continue current management and treatment plan. Reason for continued inpatient stay Substantial Risk for: inability to function and rapid decompensation Time Spent With Patient Time: Total time managing care of this patient today ____ minutes.
[2025-01-15 20:00] VITALS: BP 92/55; PULSE 84; RESP 18; TEMP 36.7; O2SAT 97
[2025-01-15] MEDS: OLANZapine 10 MG TABLET 20 MG PO (20:10)
[2025-01-15] MEDS: Mirtazapine 30 MG TABLET PO (20:10)
[2025-01-15] MEDS: OXcarbazepine 300 MG TABLET PO (20:10)
[2025-01-15] MEDS: Sertraline HCL 100 MG TABLET PO (20:10)
[2025-01-16 08:00] VITALS: BP 143/81; PULSE 86; RESP 18; TEMP 36.1; O2SAT 98
[2025-01-16 08:25] VITALS: BP 143/81
[2025-01-16] MEDS: OLANZapine ODT 10 MG TAB.RAPDIS TRANSLINGU (08:25)
[2025-01-16] MEDS: lisinopriL 20 MG TABLET PO (08:25)
[2025-01-16] MEDS: Empagliflozin 10 MG TABLET PO (08:25)
[2025-01-16] MEDS: metFORMIN HCl ER 500 MG TAB.ER.24H 1000 MG PO (08:25)
[2025-01-16] MEDS: Primidone 50 MG TABLET 25 MG PO ×2 (08:26→20:53)
[2025-01-16] MEDS: diazePAM 2 MG TABLET 4 MG PO ×3 (08:26→20:52)
--- NOTE | 2025-01-16 12:04 | P.PNPSI_ITS ---
Subjective Subjective Date of Service: 01/16/25 Reason For Visit: Anxiety, mood disorder, ASD Interim History: Patient has been calm and cooperative. Compliant with medications. No behavioral concerns. Continues on 1:1 for fall safety. Review of Systems Review of Systems sedation Yes all other systems are reviewed and are negative and Unobtainable due to mental status Mental Status Exam Mental Status Exam Narrative: Patient seen in room. Weighted blanket. Stated he was okay. Pleasant. Would not engage in conversation. Unable to evaluate SI, HI, psychosis. Patient Appearance: Appropriate Patient Orientation: Person Level of Consciousness: Awake Patient Behavior: Cooperative and Passive Mood Description: Withdrawn, Constricted and Blunted Affect Description: Blunted Patient Cognition Impaired: Yes Ability to Follow Directions: Good Speech Pattern: Monotone, Delayed and Long Pauses Memory Description: Remote Impaired Diagnostics Vital Signs (24Hr): Vital Signs - 24 hr 01/15/25 20:00 01/16/25 08:00 01/16/25 08:25 Temperature 98.1 F 97.0 F Pulse Rate 84 86 Respiratory Rate 18 18 Blood Pressure 92/55 L 143/81 H 143/81 H Pulse Oximetry 97 98 Oxygen Delivery Method Room Air Room Air BMI result Body Mass Index 27.3 Labs 10/28/24 09:10 01/14/25 08:30 Imaging Radiology Impressions: ITS Impressions Hip X-Ray 01/12/25 13:30 IMPRESSION: No evidence of fracture of the bilateral hips. Electronically signed by: Kaushal Soni MD 01/12/2025 01:54 PM EDT RP Cervical Spine CT 01/14/25 07:59 IMPRESSION: Multilevel cervical spondylosis without acute fracture or trauma-related listhesis. Fleischner guidelines were followed. Electronically signed by: Abe Griffin MD 01/14/2025 09:50 AM EDT RP Hip/Pelvis X-Ray 01/14/25 09:10 IMPRESSION: No acute fracture or dislocation. Electronically signed by: Abe Griffin MD 01/14/2025 10:35 AM EDT RP Medications Medications Current Medications Acetaminophen (Acetaminophen 325 Mg Tablet) 650 mg PO Q6H PRN PRN Reason: Headache/Pain Mild Scale (1-3) Benztropine Mesylate (Benztropine Mesylate 1 Mg Tablet) 1 mg PO BEDTIME PRN PRN Reason: Extrapyramidal Effects Diazepam (Diazepam 10 Mg/2 Ml Cartridge) 5 mg IM TID PRN PRN Reason: PO refusal. HOLD FOR SEDATION Last Admin: 12/21/24 10:22 Dose: 5 mg Diazepam (Diazepam 2 Mg Tablet) 4 mg PO TID DESIRAE Last Admin: 01/16/25 08:26 Dose: 4 mg Empagliflozin (Empagliflozin 10 Mg Tablet) 10 mg PO DAILY DESIRAE Last Admin: 01/16/25 08:25 Dose: 10 mg Lisinopril (Lisinopril 20 Mg Tablet) 20 mg PO DAILY [facility]; Protocol Last Admin: 01/16/25 08:25 Dose: 20 mg Metformin HCl (Metformin Hcl Er 500 Mg Tab.Er.24h) 1,000 mg PO DAILY DESIRAE Last Admin: 01/16/25 08:25 Dose: 1,000 mg Mirtazapine (Mirtazapine 30 Mg Tablet) 30 mg PO BEDTIME DESIRAE Last Admin: 01/15/25 20:10 Dose: 30 mg Nicotine Polacrilex (Nicotine Polacrilex 2 Mg Gum) 4 mg BUCCAL Q2H PRN PRN Reason: Nicotine Cravings Olanzapine (Olanzapine 10 Mg Tablet) 20 mg PO BEDTIME DESIRAE Last Admin: 01/15/25 20:10 Dose: 20 mg Olanzapine (Olanzapine Odt 10 Mg Tab.Rapdis) 10 mg TRANSLINGU DAILY [facility]IRAE Last Admin: 01/16/25 08:25 Dose: 10 mg Olanzapine (Olanzapine 10 Mg Vial) 10 mg IM BID PRN PRN Reason: PO refusal Last Admin: 12/21/24 10:22 Dose: 10 mg Olanzapine (Olanzapine Odt 10 Mg Tab.Rapdis) 10 mg TRANSLINGU BID PRN PRN Reason: agitation Last Admin: 01/14/25 12:16 Dose: 10 mg Oxcarbazepine (Oxcarbazepine 300 Mg Tablet) 300 mg PO BEDTIME DESIRAE Last Admin: 01/15/25 20:10 Dose: 300 mg Primidone (Primidone 50 Mg Tablet) 25 mg PO BID DESIRAE Last Admin: 01/16/25 08:26 Dose: 25 mg Sertraline HCl (Sertraline Hcl 100 Mg Tablet) 100 mg PO BEDTIME DESIRAE Last Admin: 01/15/25 20:10 Dose: 100 mg Trazodone HCl (Trazodone Hcl 50 Mg Tablet) 50 mg PO BEDTIME PRN PRN Reason: Insomnia Allergies Allergies Allergy/AdvReac Type Severity Reaction Status Date / Time No Known Allergies Allergy Verified 10/14/24 18:14 [No Known Allergies*] Assessment & Plan Assessment & Plan (1) Mood disorder: Status: Acute Code(s): F39 - Unspecified mood [affective] disorder (2) Autism spectrum disorder: Status: Acute Code(s): F84.0 - Autistic disorder (3) Neurocognitive disorder: Status: Acute Code(s): R41.9 - Unspecified symptoms and signs involving cognitive functions and awareness Plan Humza was admitted for safety and stabilization. His presentation is very similar to his last admission psychiatrically about a year ago and that is why his caregivers wanted to get ahead of things before he decompensated further. Current medications were reviewed and maintained. Contacts to be made with his treaters next week. 10/17: Continue current regimen and plans 10/19: Continue current tx plan and regime. 10/21: Memantine 5 mg daily- MCI, memory sx Abilify 2 mg daily-augment to antidepressants currently being used. 10/22 continue current tx plan -pt confused 10/23 Continue trials, regime and plan. 10/24: Continue regime and plan of care. 10/25 Abilify increased up to 5 mg. 10/26 keep on same treatment 10/27/24 continues with many complaints, no clear insight into self- 10/28 continue same treatment 10/29 increase Namenda to 5 mg p.o. b.i.d. and change Depakote to Depakene. Depakote level on 13/02 as per blood work of yesterday 10/30/24 - ak ab[employer] inc olanzapine = continue depakene as he did take 5 capsules this am- prn olanzapine given - this afternoon for behaviors on unit- 10/31/24 wrote for liquid depakote option if refuses capsules, also got prn olanzapine for throwing self on floor 11/01 keep same treatment 11/02 increase Zyprexa to 20 mg p.o. q.h.s. 11/03 keep same treatment. 11/04 discontinue Depakote and start Trileptal 300 mg p.o. b.i.d.. Her healthcare proxy will bring a copy of that we are going to invoke it 11/06 increase olanzapine to 20mg po qhs and 10mg po daily. 11/07 continue tx. 12/04 continue tx. 12/05: no changes 12/06 continue tx. 12/12: continue plan of care 12/13: continue tx 12/19 continue current tx plan 12/25: appearing sedated, more of a falls risk, poorer ability to do ADLs. decrease trileptal dosing from 600 BID to 300 BID for now. 12/26: less sedated than yesterday, continue current mgmt, including 1:1, until attending can see pt in the morning. 12/30: continues less sedated. minimally interactive. continue current mgmt. 12/31: per HCP, not at baseline, over-sedated. begin valium taper. decrease valium 5 TID to 4 TID for now. per HCP and SW, HCP has been affirmed in court. IM back-up orders in place and to be enforced by nursing staff. no aggressive or agitated behaviors. 01/02: Continue current regimen and plans Plan 1. Continue with olanzapine 10 mg p.o. q.a.m. and 20 mg p.o. q.h.s., he refused p.o. he received olanzapine IM. 2. Continue with Valium 5 mg p.o. t.i.d. if he refuses he will get Valium IM. 3. We will encourage compliance. The patient had been noncompliant with sertraline, he remains dysphoric. 4. The patient has a healthcare proxy who was affirmed by court, and they want us to medicate him even if the patient does not want to be compliant. 5. At this moment the patient is slightly over-sedated with EPS but we will keep the same dose of antipsychotics since his violence has improved. 01/03/25 Continue plan of care Reassess treatment plan which includes IM medication patient has been much less aggressive than he has in the past Unclear discharge plan at this point 01/04/2025 Patient taking Valium and olanzapine regularly has IM prescribed if refuses intermittently taking medication for diabetes hypertension 01/05/25 Cont medicationhas been stabilizing try and d/c meds that are not esential simplify regimen 01/06/25 stop namenda monitor sugar / bp encourage med acceptance cont valium olanzapine 01/08/2025 Continue olanzapine Valium metformin try and taper and simplify medication as tolerated discharge planning monitor response to change in medication 01/09/25 Try and simplify med regimen d/c planning 01/11/2025 Patient generally more cooperative not agitated generally monitor blood sugar and blood pressure intermittently refuses some doses of metformin 01/12/25 Pt seen later in day seemed stable flat some balance problems noted lowwer trileptal and primidone ck ortho vs dailypt consult for balance 01/13/2025 Patient improving less reactive has not been aggressive more cooperative with treatment and medication. Discharge planning 01/14: fell this morning, per head/c-spine CT and pelvic XR, no osseus injuries. pt appears as at recent mental status. no complaints or requests other than for wheelchair. pt will have 1:1 for ambulation for now. continue current psychopharm mgmt. 01/15: Continue current management and treatment plan. 01/16: continue current management and treatment plan. Reason for continued inpatient stay Substantial Risk for: inability to function and rapid decompensation Time Spent With Patient Time: Total time managing care of this patient today ____ minutes.
[2025-01-16 20:00] VITALS: BP 129/67; PULSE 67; RESP 16; TEMP 36.8; O2SAT 94
[2025-01-16] MEDS: Mirtazapine 30 MG TABLET PO (20:52)
[2025-01-16] MEDS: Sertraline HCL 100 MG TABLET PO (20:53)
[2025-01-16] MEDS: OXcarbazepine 300 MG TABLET PO (20:53)
[2025-01-16] MEDS: OLANZapine 10 MG TABLET 20 MG PO (20:53)
[2025-01-17] MEDS: metFORMIN HCl ER 500 MG TAB.ER.24H 1000 MG PO (10:29)
[2025-01-17] MEDS: diazePAM 2 MG TABLET 4 MG PO ×3 (10:29→19:52)
[2025-01-17] MEDS: Primidone 50 MG TABLET 25 MG PO ×2 (10:29→19:52)
[2025-01-17 10:30] VITALS: BP 135/83; PULSE 93; RESP 16; TEMP 36.9; O2SAT 98
[2025-01-17] MEDS: Empagliflozin 10 MG TABLET PO (10:30)
[2025-01-17] MEDS: lisinopriL 20 MG TABLET PO (10:30)
[2025-01-17] MEDS: OLANZapine ODT 10 MG TAB.RAPDIS TRANSLINGU (10:30)
--- NOTE | 2025-01-17 16:31 | HO.PSYCHPN ---
Subjective Subjective Date of Service: 01/17/25 Reason For Visit: Anxiety, mood disorder, ASD Subjective Notes: Conditional Voluntary Interim History: The nursing staff reported the patient be pleasant, visible in the unit compliant with treatment. On interview the patient denies new symptoms. Mental Status Exam Mental Status Exam Patient Appearance: Appropriate Patient Orientation: Person and Situation Level of Consciousness: Awake and Appropriate Patient Behavior: Guarded and Passive Mood Description: Withdrawn Affect Description: Constricted Patient Cognition Impaired: Yes Ability to Follow Directions: Good Speech Pattern: Clear Hallucinations: None Delusions: Ideas of Reference Thought Process: Distracted and Slowed Thinking Thought Content: positive for [place] and positive for Poverty of Content Judgement: Fair Diagnostics Vital Signs (24Hr): Vital Signs - 24 hr 01/16/25 20:00 01/17/25 10:30 01/17/25 10:30 Temperature 98.3 F 98.4 F Pulse Rate 67 93 Respiratory Rate 16 16 Blood Pressure 129/67 135/83 135/83 Pulse Oximetry 94 98 Oxygen Delivery Method Room Air Room Air BMI result Body Mass Index 27.3 Labs 10/28/24 09:10 01/14/25 08:30 Imaging Radiology Impressions: ITS Impressions Hip X-Ray 01/12/25 13:30 IMPRESSION: No evidence of fracture of the bilateral hips. Electronically signed by: Kaushal Soni MD 01/12/2025 01:54 PM EDT RP Cervical Spine CT 01/14/25 07:59 IMPRESSION: Multilevel cervical spondylosis without acute fracture or trauma-related listhesis. Fleischner guidelines were followed. Electronically signed by: Abe Griffin MD 01/14/2025 09:50 AM EDT RP Head CT 01/14/25 08:30 IMPRESSION: No acute intracranial abnormality. No fracture seen. Electronically signed by: Chidi Rodriguez MD 01/17/2025 01:08 PM EDT RP Hip/Pelvis X-Ray 01/14/25 09:10 IMPRESSION: No acute fracture or dislocation. Electronically signed by: Abe Griffin MD 01/14/2025 10:35 AM EDT RP Medications Medications Current Medications Acetaminophen (Acetaminophen 325 Mg Tablet) 650 mg PO Q6H PRN PRN Reason: Headache/Pain Mild Scale (1-3) Benztropine Mesylate (Benztropine Mesylate 1 Mg Tablet) 1 mg PO BEDTIME PRN PRN Reason: Extrapyramidal Effects Diazepam (Diazepam 10 Mg/2 Ml Cartridge) 5 mg IM TID PRN PRN Reason: PO refusal. HOLD FOR SEDATION Last Admin: 12/21/24 10:22 Dose: 5 mg Diazepam (Diazepam 2 Mg Tablet) 4 mg PO TID DESIRAE Last Admin: 01/17/25 16:12 Dose: 4 mg Empagliflozin (Empagliflozin 10 Mg Tablet) 10 mg PO DAILY DESIRAE Last Admin: 01/17/25 10:30 Dose: 10 mg Lisinopril (Lisinopril 20 Mg Tablet) 20 mg PO DAILY DESIRAE; Protocol Last Admin: 01/17/25 10:30 Dose: 20 mg Metformin HCl (Metformin Hcl Er 500 Mg Tab.Er.24h) 1,000 mg PO DAILY DESIRAE Last Admin: 01/17/25 10:29 Dose: 1,000 mg Mirtazapine (Mirtazapine 30 Mg Tablet) 30 mg PO BEDTIME DESIRAE Last Admin: 01/16/25 20:52 Dose: 30 mg Nicotine Polacrilex (Nicotine Polacrilex 2 Mg Gum) 4 mg BUCCAL Q2H PRN PRN Reason: Nicotine Cravings Olanzapine (Olanzapine 10 Mg Tablet) 20 mg PO BEDTIME DESIRAE Last Admin: 01/16/25 20:53 Dose: 20 mg Olanzapine (Olanzapine Odt 10 Mg Tab.Rapdis) 10 mg TRANSLINGU DAILY DESIRAE Last Admin: 01/17/25 10:30 Dose: 10 mg Olanzapine (Olanzapine 10 Mg Vial) 10 mg IM BID PRN PRN Reason: PO refusal Last Admin: 12/21/24 10:22 Dose: 10 mg Olanzapine (Olanzapine Odt 10 Mg Tab.Rapdis) 10 mg TRANSLINGU BID PRN PRN Reason: agitation Last Admin: 01/14/25 12:16 Dose: 10 mg Oxcarbazepine (Oxcarbazepine 300 Mg Tablet) 300 mg PO BEDTIME DESIRAE Last Admin: 01/16/25 20:53 Dose: 300 mg Primidone (Primidone 50 Mg Tablet) 25 mg PO BID DESIRAE Last Admin: 01/17/25 10:29 Dose: 25 mg Sertraline HCl (Sertraline Hcl 100 Mg Tablet) 100 mg PO BEDTIME DESIRAE Last Admin: 01/16/25 20:53 Dose: 100 mg Trazodone HCl (Trazodone Hcl 50 Mg Tablet) 50 mg PO BEDTIME PRN PRN Reason: Insomnia Allergies Allergies Allergy/AdvReac Type Severity Reaction Status Date / Time No Known Allergies Allergy Verified 10/14/24 18:14 [No Known Allergies*] Assessment & Plan Assessment & Plan (1) Mood disorder: Status: Acute Code(s): F39 - Unspecified mood [affective] disorder (2) Autism spectrum disorder: Status: Acute Code(s): F84.0 - Autistic disorder (3) Neurocognitive disorder: Status: Acute Code(s): R41.9 - Unspecified symptoms and signs involving cognitive functions and awareness Plan Humza was admitted for safety and stabilization. His presentation is very similar to his last admission psychiatrically about a year ago and that is why his caregivers wanted to get ahead of things before he decompensated further. Current medications were reviewed and maintained. Contacts to be made with his treaters next week. 10/17: Continue current regimen and plans 10/19: Continue current tx plan and regime. 10/21: Memantine 5 mg daily- [facility], memory sx Abilify 2 mg daily-augment to antidepressants currently being used. 10/22 continue current tx plan -pt confused 10/23 Continue trials, regime and plan. 10/24: Continue regime and plan of care. 10/25 Abilify increased up to 5 mg. 10/26 keep on same treatment 10/27/24 continues with many complaints, no clear insight into self- 10/28 continue same treatment 10/29 increase Namenda to 5 mg p.o. b.i.d. and change Depakote to Depakene. Depakote level on 13/02 as per blood work of yesterday 10/30/24 - dc abilify inc olanzapine = continue depakene as he did take 5 capsules this am- prn olanzapine given - this afternoon for behaviors on unit- 10/31/24 wrote for liquid depakote option if refuses capsules, also got prn olanzapine for throwing self on floor 11/01 keep same treatment 11/02 increase Zyprexa to 20 mg p.o. q.h.s. 11/03 keep same treatment. 11/04 discontinue Depakote and start Trileptal 300 mg p.o. b.i.d.. Her healthcare proxy will bring a copy of that we are going to invoke it 11/06 increase olanzapine to 20mg po qhs and 10mg po daily. 11/07 continue tx. 12/04 continue tx. 12/05: no changes 12/06 continue tx. 12/12: continue plan of care 12/13: continue tx 12/19 continue current tx plan 12/25: appearing sedated, more of a falls risk, poorer ability to do ADLs. decrease trileptal dosing from 600 BID to 300 BID for now. 12/26: less sedated than yesterday, continue current mgmt, including 1:1, until attending can see pt in the morning. 12/30: continues less sedated. minimally interactive. continue current mgmt. 12/31: per HCP, not at baseline, over-sedated. begin valium taper. decrease valium 5 TID to 4 TID for now. per HCP and SW, HCP has been affirmed in court. IM back-up orders in place and to be enforced by nursing staff. no aggressive or agitated behaviors. 01/02: Continue current regimen and plans Plan 1. Continue with olanzapine 10 mg p.o. q.a.m. and 20 mg p.o. q.h.s., he refused p.o. he received olanzapine IM. 2. Continue with Valium 5 mg p.o. t.i.d. if he refuses he will get Valium IM. 3. We will encourage compliance. The patient had been noncompliant with sertraline, he remains dysphoric. 4. The patient has a healthcare proxy who was affirmed by court, and they want us to medicate him even if the patient does not want to be compliant. 5. At this moment the patient is slightly over-sedated with EPS but we will keep the same dose of antipsychotics since his violence has improved. 01/03/25 Continue plan of care Reassess treatment plan which includes IM medication patient has been much less aggressive than he has in the past Unclear discharge plan at this point 01/04/2025 Patient taking Valium and olanzapine regularly has IM prescribed if refuses intermittently taking medication for diabetes hypertension 01/05/25 Cont medicationhas been stabilizing try and d/c meds that are not esential simplify regimen 01/06/25 stop namenda monitor sugar / bp encourage med acceptance cont valium olanzapine 01/08/2025 Continue olanzapine Valium metformin try and taper and simplify medication as tolerated discharge planning monitor response to change in medication 01/09/25 Try and simplify med regimen d/c planning 01/11/2025 Patient generally more cooperative not agitated generally monitor blood sugar and blood pressure intermittently refuses some doses of metformin 01/12/25 Pt seen later in day seemed stable flat some balance problems noted lowwer trileptal and primidone ck ortho vs dailypt consult for balance 01/13/2025 Patient improving less reactive has not been aggressive more cooperative with treatment and medication. Discharge planning 01/14: fell this morning, per head/c-spine CT and pelvic XR, no osseus injuries. pt appears as at recent mental status. no complaints or requests other than for wheelchair. pt will have 1:1 for ambulation for now. continue current psychopharm mgmt. 01/15: Continue current management and treatment plan. 01/16: continue current management and treatment plan. 01/17 keep same treatment Reason for continued inpatient stay Substantial Risk for: inability to function, rapid decompensation and med/psych decompensation Time Spent With Patient Time: Total time managing care of this patient today __20__ minutes.
[2025-01-17 19:50] VITALS: BP 99/62; PULSE 70; TEMP 36.6; O2SAT 99
[2025-01-17] MEDS: OXcarbazepine 300 MG TABLET PO (19:52)
[2025-01-17] MEDS: Mirtazapine 30 MG TABLET PO (19:52)
[2025-01-17] MEDS: Sertraline HCL 100 MG TABLET PO (19:52)
[2025-01-17] MEDS: OLANZapine 10 MG TABLET 20 MG PO (19:53)
[2025-01-18] MEDS: metFORMIN HCl ER 500 MG TAB.ER.24H 1000 MG PO (08:25)
[2025-01-18] MEDS: Empagliflozin 10 MG TABLET PO (08:25)
[2025-01-18] MEDS: diazePAM 2 MG TABLET 4 MG PO ×3 (08:25→20:25)
[2025-01-18] MEDS: Primidone 50 MG TABLET 25 MG PO ×2 (08:26→20:24)
[2025-01-18 08:27] VITALS: BP 119/82
[2025-01-18] MEDS: lisinopriL 20 MG TABLET PO (08:27)
[2025-01-18] MEDS: OLANZapine ODT 10 MG TAB.RAPDIS TRANSLINGU (08:27)
[2025-01-18 08:45] VITALS: BP 119/82; PULSE 87; RESP 14; TEMP 36.5; O2SAT 97
--- NOTE | 2025-01-18 16:17 | P.PNPSI_ITS ---
Subjective Subjective Date of Service: 01/18/25 Reason For Visit: Anxiety, mood disorder, ASD Subjective Notes: Conditional Voluntary Interim History: The nursing staff reported the patient had been flat visible in the unit compliant with treatment irritable with the nursing staff at times. On interview the patient denies new symptoms. Mental Status Exam Mental Status Exam Patient Appearance: Appropriate Patient Orientation: Person and Situation Level of Consciousness: Awake and Appropriate Patient Behavior: Guarded and Passive Mood Description: Withdrawn Affect Description: Constricted Patient Cognition Impaired: Yes Ability to Follow Directions: Fair Speech Pattern: Clear Hallucinations: None Delusions: Paranoid Ideation and Ideas of Reference Thought Process: Distracted and Slowed Thinking Thought Content: positive for [place] and positive for Poverty of Content Judgement: Fair Diagnostics Vital Signs (24Hr): Vital Signs - 24 hr 01/17/25 19:50 01/18/25 08:27 01/18/25 08:45 Temperature 97.9 F 97.7 F Pulse Rate 70 87 Respiratory Rate 14 Blood Pressure 99/62 119/82 119/82 Pulse Oximetry 99 97 Oxygen Delivery Method Room Air Room Air BMI result Body Mass Index 27.3 Labs 10/28/24 09:10 01/14/25 08:30 Imaging Radiology Impressions: ITS Impressions Hip X-Ray 01/12/25 13:30 IMPRESSION: No evidence of fracture of the bilateral hips. Electronically signed by: Kaushal Soni MD 01/12/2025 01:54 PM EDT RP Cervical Spine CT 01/14/25 07:59 IMPRESSION: Multilevel cervical spondylosis without acute fracture or trauma-related listhesis. Fleischner guidelines were followed. Electronically signed by: Abe Griffin MD 01/14/2025 09:50 AM EDT RP Head CT 01/14/25 08:30 IMPRESSION: No acute intracranial abnormality. No fracture seen. Electronically signed by: Chidi Rodriguez MD 01/17/2025 01:08 PM EDT RP Hip/Pelvis X-Ray 01/14/25 09:10 IMPRESSION: No acute fracture or dislocation. Electronically signed by: Abe Griffin MD 01/14/2025 10:35 AM EDT RP Medications Medications Current Medications Acetaminophen (Acetaminophen 325 Mg Tablet) 650 mg PO Q6H PRN PRN Reason: Headache/Pain Mild Scale (1-3) Benztropine Mesylate (Benztropine Mesylate 1 Mg Tablet) 1 mg PO BEDTIME PRN PRN Reason: Extrapyramidal Effects Diazepam (Diazepam 10 Mg/2 Ml Cartridge) 5 mg IM TID PRN PRN Reason: PO refusal. HOLD FOR SEDATION Last Admin: 12/21/24 10:22 Dose: 5 mg Diazepam (Diazepam 2 Mg Tablet) 4 mg PO TID DESIRAE Last Admin: 01/18/25 15:11 Dose: 4 mg Empagliflozin (Empagliflozin 10 Mg Tablet) 10 mg PO DAILY DESIRAE Last Admin: 01/18/25 08:25 Dose: 10 mg Lisinopril (Lisinopril 20 Mg Tablet) 20 mg PO DAILY [facility]; Protocol Last Admin: 01/18/25 08:27 Dose: 20 mg Metformin HCl (Metformin Hcl Er 500 Mg Tab.Er.24h) 1,000 mg PO DAILY DESIRAE Last Admin: 01/18/25 08:25 Dose: 1,000 mg Mirtazapine (Mirtazapine 30 Mg Tablet) 30 mg PO BEDTIME DESIRAE Last Admin: 01/17/25 19:52 Dose: 30 mg Nicotine Polacrilex (Nicotine Polacrilex 2 Mg Gum) 4 mg BUCCAL Q2H PRN PRN Reason: Nicotine Cravings Olanzapine (Olanzapine 10 Mg Tablet) 20 mg PO BEDTIME DESIRAE Last Admin: 01/17/25 19:53 Dose: 20 mg Olanzapine (Olanzapine Odt 10 Mg Tab.Rapdis) 10 mg TRANSLINGU DAILY DESIRAE Last Admin: 01/18/25 08:27 Dose: 10 mg Olanzapine (Olanzapine 10 Mg Vial) 10 mg IM BID PRN PRN Reason: PO refusal Last Admin: 12/21/24 10:22 Dose: 10 mg Olanzapine (Olanzapine Odt 10 Mg Tab.Rapdis) 10 mg TRANSLINGU BID PRN PRN Reason: agitation Last Admin: 01/14/25 12:16 Dose: 10 mg Oxcarbazepine (Oxcarbazepine 300 Mg Tablet) 300 mg PO BEDTIME DESIRAE Last Admin: 01/17/25 19:52 Dose: 300 mg Primidone (Primidone 50 Mg Tablet) 25 mg PO BID DESIRAE Last Admin: 01/18/25 08:26 Dose: 25 mg Sertraline HCl (Sertraline Hcl 100 Mg Tablet) 100 mg PO BEDTIME DESIRAE Last Admin: 01/17/25 19:52 Dose: 100 mg Trazodone HCl (Trazodone Hcl 50 Mg Tablet) 50 mg PO BEDTIME PRN PRN Reason: Insomnia Allergies Allergies Allergy/AdvReac Type Severity Reaction Status Date / Time No Known Allergies Allergy Verified 10/14/24 18:14 [No Known Allergies*] Assessment & Plan Assessment & Plan (1) Mood disorder: Status: Acute Code(s): F39 - Unspecified mood [affective] disorder (2) Autism spectrum disorder: Status: Acute Code(s): F84.0 - Autistic disorder (3) Dementia: Status: Acute Code(s): F03.90 - Unspecified dementia, unspecified severity, without behavioral disturbance, psychotic disturbance, mood disturbance, and anxiety Plan Humza was admitted for safety and stabilization. His presentation is very similar to his last admission psychiatrically about a year ago and that is why his caregivers wanted to get ahead of things before he decompensated further. Current medications were reviewed and maintained. Contacts to be made with his treaters next week. 10/17: Continue current regimen and plans 10/19: Continue current tx plan and regime. 10/21: Memantine 5 mg daily- MCI, memory sx Abilify 2 mg daily-augment to antidepressants currently being used. 10/22 continue current tx plan -pt confused 10/23 Continue trials, regime and plan. 10/24: Continue regime and plan of care. 10/25 Abilify increased up to 5 mg. 10/26 keep on same treatment 10/27/24 continues with many complaints, no clear insight into self- 10/28 continue same treatment 10/29 increase Namenda to 5 mg p.o. b.i.d. and change Depakote to Depakene. Depakote level on 13/02 as per blood work of yesterday 10/30/24 - dc abilify inc olanzapine = continue depakene as he did take 5 capsules this am- prn olanzapine given - this afternoon for behaviors on unit- 10/31/24 wrote for liquid depakote option if refuses capsules, also got prn olanzapine for throwing self on floor 11/01 keep same treatment 11/02 increase Zyprexa to 20 mg p.o. q.h.s. 11/03 keep same treatment. 11/04 discontinue Depakote and start Trileptal 300 mg p.o. b.i.d.. Her healthcare proxy will bring a copy of that we are going to invoke it 11/06 increase olanzapine to 20mg po qhs and 10mg po daily. 11/07 continue tx. 12/04 continue tx. 12/05: no changes 12/06 continue tx. 12/12: continue plan of care 12/13: continue tx 12/19 continue current tx plan 12/25: appearing sedated, more of a falls risk, poorer ability to do ADLs. decrease trileptal dosing from 600 BID to 300 BID for now. 12/26: less sedated than yesterday, continue current mgmt, including 1:1, until attending can see pt in the morning. 12/30: continues less sedated. minimally interactive. continue current mgmt. 12/31: per HCP, not at baseline, over-sedated. begin valium taper. decrease valium 5 TID to 4 TID for now. per HCP and SW, HCP has been affirmed in court. IM back-up orders in place and to be enforced by nursing staff. no aggressive or agitated behaviors. 01/02: Continue current regimen and plans Plan 1. Continue with olanzapine 10 mg p.o. q.a.m. and 20 mg p.o. q.h.s., he refused p.o. he received olanzapine IM. 2. Continue with Valium 5 mg p.o. t.i.d. if he refuses he will get Valium IM. 3. We will encourage compliance. The patient had been noncompliant with sertraline, he remains dysphoric. 4. The patient has a healthcare proxy who was affirmed by court, and they want us to medicate him even if the patient does not want to be compliant. 5. At this moment the patient is slightly over-sedated with EPS but we will keep the same dose of antipsychotics since his violence has improved. 01/03/25 Continue plan of care Reassess treatment plan which includes IM medication patient has been much less aggressive than he has in the past Unclear discharge plan at this point 01/04/2025 Patient taking Valium and olanzapine regularly has IM prescribed if refuses intermittently taking medication for diabetes hypertension 01/05/25 Cont medicationhas been stabilizing try and d/c meds that are not esential simplify regimen 01/06/25 stop namenda monitor sugar / bp encourage med acceptance cont valium olanzapine 01/08/2025 Continue olanzapine Valium metformin try and taper and simplify medication as tolerated discharge planning monitor response to change in medication 01/09/25 Try and simplify med regimen d/c planning 01/11/2025 Patient generally more cooperative not agitated generally monitor blood sugar and blood pressure intermittently refuses some doses of metformin 01/12/25 Pt seen later in day seemed stable flat some balance problems noted lowwer trileptal and primidone ck ortho vs dailypt consult for balance 01/13/2025 Patient improving less reactive has not been aggressive more cooperative with treatment and medication. Discharge planning 01/14: fell this morning, per head/c-spine CT and pelvic XR, no osseus injuries. pt appears as at recent mental status. no complaints or requests other than for wheelchair. pt will have 1:1 for ambulation for now. continue current psychopharm mgmt. 01/15: Continue current management and treatment plan. 01/16: continue current management and treatment plan. 01/17 keep same treatment. 01/18 keep same treatment Reason for continued inpatient stay Substantial Risk for: inability to function, rapid decompensation and med/psych decompensation Time Spent With Patient Time: Total time managing care of this patient today ____ minutes.
[2025-01-18 20:00] VITALS: BP 110/70; PULSE 72; RESP 16; TEMP 36.1; O2SAT 96
[2025-01-18] MEDS: OXcarbazepine 300 MG TABLET PO (20:24)
[2025-01-18] MEDS: Sertraline HCL 100 MG TABLET PO (20:25)
[2025-01-18] MEDS: Mirtazapine 30 MG TABLET PO (20:25)
[2025-01-18] MEDS: OLANZapine 10 MG TABLET 20 MG PO (20:25)
[2025-01-19 08:00] VITALS: BP 121/80; PULSE 76; RESP 16; TEMP 36.2; O2SAT 97
[2025-01-19 08:18] VITALS: BP 121/80
[2025-01-19] MEDS: Primidone 50 MG TABLET 25 MG PO ×2 (08:18→20:29)
[2025-01-19] MEDS: metFORMIN HCl ER 500 MG TAB.ER.24H 1000 MG PO (08:18)
[2025-01-19] MEDS: lisinopriL 20 MG TABLET PO (08:18)
[2025-01-19] MEDS: Empagliflozin 10 MG TABLET PO (08:19)
[2025-01-19] MEDS: OLANZapine ODT 10 MG TAB.RAPDIS TRANSLINGU (08:19)
[2025-01-19] MEDS: diazePAM 2 MG TABLET 4 MG PO ×3 (08:19→20:31)
--- NOTE | 2025-01-19 14:51 | P.PNPSI_ITS ---
Subjective Subjective Date of Service: 01/19/25 Reason For Visit: Anxiety, mood disorder, ASD Interim History: The nursing staff reported the patient needs encouragement for compliance with medication but so far compliant. He has not attend any groups remains internally preoccupied. The social services assistant reported that we are starting the referrals for discharge planning. On interview the patient denies new symptoms internally preoccupied. Mental Status Exam Mental Status Exam Patient Appearance: Appropriate Patient Orientation: Person and Situation Level of Consciousness: Awake and Appropriate Patient Behavior: Passive Mood Description: Calm and Blunted Affect Description: Constricted Patient Cognition Impaired: Yes Ability to Follow Directions: Good Speech Pattern: Clear Hallucinations: None Delusions: Ideas of Reference Thought Process: Distracted and Slowed Thinking Thought Content: positive for [place] and positive for Poverty of Content Judgement: Fair Diagnostics Vital Signs (24Hr): Vital Signs - 24 hr 01/18/25 20:00 01/19/25 08:00 01/19/25 08:18 Temperature 97 F 97.2 F Pulse Rate 72 76 Respiratory Rate 16 16 Blood Pressure 110/70 121/80 121/80 Pulse Oximetry 96 97 Oxygen Delivery Method Room Air Room Air BMI result Body Mass Index 27.3 Labs 10/28/24 09:10 01/14/25 08:30 Imaging Radiology Impressions: ITS Impressions Hip X-Ray 01/12/25 13:30 IMPRESSION: No evidence of fracture of the bilateral hips. Electronically signed by: Kaushal Soni MD 01/12/2025 01:54 PM EDT RP Cervical Spine CT 01/14/25 07:59 IMPRESSION: Multilevel cervical spondylosis without acute fracture or trauma-related listhesis. Fleischner guidelines were followed. Electronically signed by: Abe Griffin MD 01/14/2025 09:50 AM EDT RP Head CT 01/14/25 08:30 IMPRESSION: No acute intracranial abnormality. No fracture seen. Electronically signed by: Chidi Rodriguez MD 01/17/2025 01:08 PM EDT RP Hip/Pelvis X-Ray 01/14/25 09:10 IMPRESSION: No acute fracture or dislocation. Electronically signed by: Abe Griffin MD 01/14/2025 10:35 AM EDT RP Medications Medications Current Medications Acetaminophen (Acetaminophen 325 Mg Tablet) 650 mg PO Q6H PRN PRN Reason: Headache/Pain Mild Scale (1-3) Benztropine Mesylate (Benztropine Mesylate 1 Mg Tablet) 1 mg PO BEDTIME PRN PRN Reason: Extrapyramidal Effects Diazepam (Diazepam 10 Mg/2 Ml Cartridge) 5 mg IM TID PRN PRN Reason: PO refusal. HOLD FOR SEDATION Last Admin: 12/21/24 10:22 Dose: 5 mg Diazepam (Diazepam 2 Mg Tablet) 4 mg PO TID DESIRAE Last Admin: 01/19/25 08:19 Dose: 4 mg Empagliflozin (Empagliflozin 10 Mg Tablet) 10 mg PO DAILY DESIRAE Last Admin: 01/19/25 08:19 Dose: 10 mg Lisinopril (Lisinopril 20 Mg Tablet) 20 mg PO DAILY DESIRAE; Protocol Last Admin: 01/19/25 08:18 Dose: 20 mg Metformin HCl (Metformin Hcl Er 500 Mg Tab.Er.24h) 1,000 mg PO DAILY DESIRAE Last Admin: 01/19/25 08:18 Dose: 1,000 mg Mirtazapine (Mirtazapine 30 Mg Tablet) 30 mg PO BEDTIME DESIRAE Last Admin: 01/18/25 20:25 Dose: 30 mg Nicotine Polacrilex (Nicotine Polacrilex 2 Mg Gum) 4 mg BUCCAL Q2H PRN PRN Reason: Nicotine Cravings Olanzapine (Olanzapine 10 Mg Tablet) 20 mg PO BEDTIME DESIRAE Last Admin: 01/18/25 20:25 Dose: 20 mg Olanzapine (Olanzapine Odt 10 Mg Tab.Rapdis) 10 mg TRANSLINGU DAILY DESIRAE Last Admin: 01/19/25 08:19 Dose: 10 mg Olanzapine (Olanzapine 10 Mg Vial) 10 mg IM BID PRN PRN Reason: PO refusal Last Admin: 12/21/24 10:22 Dose: 10 mg Olanzapine (Olanzapine Odt 10 Mg Tab.Rapdis) 10 mg TRANSLINGU BID PRN PRN Reason: agitation Last Admin: 01/14/25 12:16 Dose: 10 mg Oxcarbazepine (Oxcarbazepine 300 Mg Tablet) 300 mg PO BEDTIME DESIRAE Last Admin: 01/18/25 20:24 Dose: 300 mg Primidone (Primidone 50 Mg Tablet) 25 mg PO BID DESIRAE Last Admin: 01/19/25 08:18 Dose: 25 mg Sertraline HCl (Sertraline Hcl 100 Mg Tablet) 100 mg PO BEDTIME DESIRAE Last Admin: 01/18/25 20:25 Dose: 100 mg Trazodone HCl (Trazodone Hcl 50 Mg Tablet) 50 mg PO BEDTIME PRN PRN Reason: Insomnia Allergies Allergies Allergy/AdvReac Type Severity Reaction Status Date / Time No Known Allergies Allergy Verified 10/14/24 18:14 [No Known Allergies*] Assessment & Plan Assessment & Plan (1) Mood disorder: Status: Acute Code(s): F39 - Unspecified mood [affective] disorder (2) Autism spectrum disorder: Status: Acute Code(s): F84.0 - Autistic disorder (3) Dementia: Status: Acute Code(s): F03.90 - Unspecified dementia, unspecified severity, without behavioral disturbance, psychotic disturbance, mood disturbance, and anxiety Plan Humza was admitted for safety and stabilization. His presentation is very similar to his last admission psychiatrically about a year ago and that is why his caregivers wanted to get ahead of things before he decompensated further. Current medications were reviewed and maintained. Contacts to be made with his treaters next week. 10/17: Continue current regimen and plans 10/19: Continue current tx plan and regime. 10/21: Memantine 5 mg daily- [facility], memory sx Abilify 2 mg daily-augment to antidepressants currently being used. 10/22 continue current tx plan -pt confused 10/23 Continue trials, regime and plan. 10/24: Continue regime and plan of care. 10/25 Abilify increased up to 5 mg. 10/26 keep on same treatment 10/27/24 continues with many complaints, no clear insight into self- 10/28 continue same treatment 10/29 increase Namenda to 5 mg p.o. b.i.d. and change Depakote to Depakene. 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 q.h.s. 11/03 keep same treatment. 11/04 discontinue Depakote and start Trileptal 300 mg p.o. b.i.d.. Her healthcare proxy will bring a copy of that we are going to invoke it 11/06 increase olanzapine to 20mg po qhs and 10mg po daily. 11/07 continue tx. 12/04 continue tx. 12/05: no changes 12/06 continue tx. 12/12: continue plan of care 12/13: continue tx 12/19 continue current tx plan 12/25: appearing sedated, more of a falls risk, poorer ability to do ADLs. decrease trileptal dosing from 600 BID to 300 BID for now. 12/26: less sedated than yesterday, continue current mgmt, including 1:1, until attending can see pt in the morning. 12/30: continues less sedated. minimally interactive. continue current mgmt. 12/31: per HCP, not at baseline, over-sedated. begin valium taper. decrease valium 5 TID to 4 TID for now. per HCP and SW, HCP has been affirmed in court. IM back-up orders in place and to be enforced by nursing staff. no aggressive or agitated behaviors. 01/02: Continue current regimen and plans Plan 1. Continue with olanzapine 10 mg p.o. q.a.m. and 20 mg p.o. q.h.s., he refused p.o. he received olanzapine IM. 2. Continue with Valium 5 mg p.o. t.i.d. if he refuses he will get Valium IM. 3. We will encourage compliance. The patient had been noncompliant with sertraline, he remains dysphoric. 4. The patient has a healthcare proxy who was affirmed by court, and they want us to medicate him even if the patient does not want to be compliant. 5. At this moment the patient is slightly over-sedated with EPS but we will keep the same dose of antipsychotics since his violence has improved. 01/03/25 Continue plan of care Reassess treatment plan which includes IM medication patient has been much less aggressive than he has in the past Unclear discharge plan at this point 01/04/2025 Patient taking Valium and olanzapine regularly has IM prescribed if refuses intermittently taking medication for diabetes hypertension 01/05/25 Cont medicationhas been stabilizing try and d/c meds that are not esential simplify regimen 01/06/25 stop namenda monitor sugar / bp encourage med acceptance cont valium olanzapine 01/08/2025 Continue olanzapine Valium metformin try and taper and simplify medication as tolerated discharge planning monitor response to change in medication 01/09/25 Try and simplify med regimen d/c planning 01/11/2025 Patient generally more cooperative not agitated generally monitor blood sugar and blood pressure intermittently refuses some doses of metformin 01/12/25 Pt seen later in day seemed stable flat some balance problems noted lowwer trileptal and primidone ck ortho vs dailypt consult for balance 01/13/2025 Patient improving less reactive has not been aggressive more cooperative with treatment and medication. Discharge planning 01/14: fell this morning, per head/c-spine CT and pelvic XR, no osseus injuries. pt appears as at recent mental status. no complaints or requests other than for wheelchair. pt will have 1:1 for ambulation for now. continue current psychopharm mgmt. 01/15: Continue current management and treatment plan. 01/16: continue current management and treatment plan. 01/17 keep same treatment. 01/18 keep same treatment 01/19 keep same treatment Reason for continued inpatient stay Substantial Risk for: inability to function, rapid decompensation and med/psych decompensation Time Spent With Patient Time: Total time managing care of this patient today __20__ minutes.
[2025-01-19 20:00] VITALS: BP 107/69; PULSE 76; RESP 16; TEMP 36.2; O2SAT 96
[2025-01-19] MEDS: OXcarbazepine 300 MG TABLET PO (20:30)
[2025-01-19] MEDS: OLANZapine 10 MG TABLET 20 MG PO (20:31)
[2025-01-19] MEDS: Mirtazapine 30 MG TABLET PO (20:31)
[2025-01-19] MEDS: Sertraline HCL 100 MG TABLET PO (20:31)
[2025-01-20 08:00] VITALS: BP 120/75; PULSE 74; RESP 16; TEMP 36.3; O2SAT 99
[2025-01-20 08:21] VITALS: BP 120/75
[2025-01-20] MEDS: Primidone 50 MG TABLET 25 MG PO ×2 (08:21→20:27)
[2025-01-20] MEDS: Empagliflozin 10 MG TABLET PO (08:21)
[2025-01-20] MEDS: lisinopriL 20 MG TABLET PO (08:21)
[2025-01-20] MEDS: metFORMIN HCl ER 500 MG TAB.ER.24H 1000 MG PO (08:21)
[2025-01-20] MEDS: diazePAM 2 MG TABLET 4 MG PO ×3 (08:22→20:28)
[2025-01-20] MEDS: OLANZapine ODT 10 MG TAB.RAPDIS TRANSLINGU (08:22)
[2025-01-20 09:44] VITALS: BMI 27.1
--- NOTE | 2025-01-20 17:04 | P.PNPSI_ITS ---
Subjective Subjective Date of Service: 01/20/25 Reason For Visit: Anxiety, mood disorder, ASD Subjective Notes: Conditional Voluntary Interim History: The nursing staff reported the patient had been medication compliant, in the evening he did encouraged to be taking compliant with his medications. The family welfare social work professor reported that he had been referred to several long term facilities, waiting for response. On interview the patient denies new symptoms, no evidence of aggression. Mental Status Exam Mental Status Exam Patient Appearance: Appropriate Patient Orientation: Person and Situation Level of Consciousness: Awake and Appropriate Patient Behavior: Guarded and Passive Mood Description: Withdrawn Affect Description: Constricted Patient Cognition Impaired: Yes Ability to Follow Directions: Good Speech Pattern: Clear Hallucinations: None Delusions: Paranoid Ideation and Ideas of Reference Thought Process: Distracted and Slowed Thinking Thought Content: positive for [place] and positive for Poverty of Content Judgement: Fair Diagnostics Vital Signs (24Hr): Vital Signs - 24 hr 01/19/25 20:00 01/20/25 08:00 01/20/25 08:21 Temperature 97.1 F 97.3 F Pulse Rate 76 74 Respiratory Rate 16 16 Blood Pressure 107/69 120/75 120/75 Pulse Oximetry 96 99 Oxygen Delivery Method Room Air Room Air BMI result Body Mass Index 27.1 Labs 10/28/24 09:10 01/14/25 08:30 Imaging Radiology Impressions: ITS Impressions Hip X-Ray 01/12/25 13:30 IMPRESSION: No evidence of fracture of the bilateral hips. Electronically signed by: Kaushal Soni MD 01/12/2025 01:54 PM EDT RP Cervical Spine CT 01/14/25 07:59 IMPRESSION: Multilevel cervical spondylosis without acute fracture or trauma-related listhesis. Fleischner guidelines were followed. Electronically signed by: Abe Griffin MD 01/14/2025 09:50 AM EDT RP Head CT 01/14/25 08:30 IMPRESSION: No acute intracranial abnormality. No fracture seen. Electronically signed by: Chidi Rodriguez MD 01/17/2025 01:08 PM EDT RP Hip/Pelvis X-Ray 01/14/25 09:10 IMPRESSION: No acute fracture or dislocation. Electronically signed by: Abe Griffin MD 01/14/2025 10:35 AM EDT RP Medications Medications Current Medications Acetaminophen (Acetaminophen 325 Mg Tablet) 650 mg PO Q6H PRN PRN Reason: Headache/Pain Mild Scale (1-3) Benztropine Mesylate (Benztropine Mesylate 1 Mg Tablet) 1 mg PO BEDTIME PRN PRN Reason: Extrapyramidal Effects Diazepam (Diazepam 10 Mg/2 Ml Cartridge) 5 mg IM TID PRN PRN Reason: PO refusal. HOLD FOR SEDATION Last Admin: 12/21/24 10:22 Dose: 5 mg Diazepam (Diazepam 2 Mg Tablet) 4 mg PO TID [facility] Last Admin: 01/20/25 16:02 Dose: 4 mg Empagliflozin (Empagliflozin 10 Mg Tablet) 10 mg PO DAILY DESIRAE Last Admin: 01/20/25 08:21 Dose: 10 mg Lisinopril (Lisinopril 20 Mg Tablet) 20 mg PO DAILY DESIRAE; Protocol Last Admin: 01/20/25 08:21 Dose: 20 mg Metformin HCl (Metformin Hcl Er 500 Mg Tab.Er.24h) 1,000 mg PO DAILY DESIRAE Last Admin: 01/20/25 08:21 Dose: 1,000 mg Mirtazapine (Mirtazapine 30 Mg Tablet) 30 mg PO BEDTIME DESIRAE Last Admin: 01/19/25 20:31 Dose: 30 mg Nicotine Polacrilex (Nicotine Polacrilex 2 Mg Gum) 4 mg BUCCAL Q2H PRN PRN Reason: Nicotine Cravings Olanzapine (Olanzapine 10 Mg Tablet) 20 mg PO BEDTIME DESIRAE Last Admin: 01/19/25 20:31 Dose: 20 mg Olanzapine (Olanzapine Odt 10 Mg Tab.Rapdis) 10 mg TRANSLINGU DAILY DESIRAE Last Admin: 01/20/25 08:22 Dose: 10 mg Olanzapine (Olanzapine 10 Mg Vial) 10 mg IM BID PRN PRN Reason: PO refusal Last Admin: 12/21/24 10:22 Dose: 10 mg Olanzapine (Olanzapine Odt 10 Mg Tab.Rapdis) 10 mg TRANSLINGU BID PRN PRN Reason: agitation Last Admin: 01/14/25 12:16 Dose: 10 mg Oxcarbazepine (Oxcarbazepine 300 Mg Tablet) 300 mg PO BEDTIME DESIRAE Last Admin: 01/19/25 20:30 Dose: 300 mg Primidone (Primidone 50 Mg Tablet) 25 mg PO BID DESIRAE Last Admin: 01/20/25 08:21 Dose: 25 mg Sertraline HCl (Sertraline Hcl 100 Mg Tablet) 100 mg PO BEDTIME [facility] Last Admin: 01/19/25 20:31 Dose: 100 mg Trazodone HCl (Trazodone Hcl 50 Mg Tablet) 50 mg PO BEDTIME PRN PRN Reason: Insomnia Allergies Allergies Allergy/AdvReac Type Severity Reaction Status Date / Time No Known Allergies Allergy Verified 10/14/24 18:14 [No Known Allergies*] Assessment & Plan Assessment & Plan (1) Mood disorder: Status: Acute Code(s): F39 - Unspecified mood [affective] disorder (2) Autism spectrum disorder: Status: Acute Code(s): F84.0 - Autistic disorder (3) Dementia: Status: Acute Code(s): F03.90 - Unspecified dementia, unspecified severity, without behavioral disturbance, psychotic disturbance, mood disturbance, and anxiety Plan Humza was admitted for safety and stabilization. His presentation is very similar to his last admission psychiatrically about a year ago and that is why his caregivers wanted to get ahead of things before he decompensated further. Current medications were reviewed and maintained. Contacts to be made with his treaters next week. 10/17: Continue current regimen and plans 10/19: Continue current tx plan and regime. 10/21: Memantine 5 mg daily- [facility], memory sx Abilify 2 mg daily-augment to antidepressants currently being used. 10/22 continue current tx plan -pt confused 10/23 Continue trials, regime and plan. 10/24: Continue regime and plan of care. 10/25 Abilify increased up to 5 mg. 10/26 keep on same treatment 10/27/24 continues with many complaints, no clear insight into self- 10/28 continue same treatment 10/29 increase Namenda to 5 mg p.o. b.i.d. and change Depakote to Depakene. Depakote level on 13/02 as per blood work of yesterday 10/30/24 - [facility] olanzapine = continue depakene as he did take 5 capsules this am- prn olanzapine given - this afternoon for behaviors on unit- 10/31/24 wrote for liquid depakote option if refuses capsules, also got prn olanzapine for throwing self on floor 11/01 keep same treatment 11/02 increase Zyprexa to 20 mg p.o. q.h.s. 11/03 keep same treatment. 11/04 discontinue Depakote and start Trileptal 300 mg p.o. b.i.d.. Her healthcare proxy will bring a copy of that we are going to invoke it 11/06 increase olanzapine to 20mg po qhs and 10mg po daily. 11/07 continue tx. 12/04 continue tx. 12/05: no changes 12/06 continue tx. 12/12: continue plan of care 12/13: continue tx 12/19 continue current tx plan 12/25: appearing sedated, more of a falls risk, poorer ability to do ADLs. decrease trileptal dosing from 600 BID to 300 BID for now. 12/26: less sedated than yesterday, continue current mgmt, including 1:1, until attending can see pt in the morning. 12/30: continues less sedated. minimally interactive. continue current mgmt. 12/31: per HCP, not at baseline, over-sedated. begin valium taper. decrease valium 5 TID to 4 TID for now. per HCP and SW, HCP has been affirmed in court. IM back-up orders in place and to be enforced by nursing staff. no aggressive or agitated behaviors. 01/02: Continue current regimen and plans Plan 1. Continue with olanzapine 10 mg p.o. q.a.m. and 20 mg p.o. q.h.s., he refused p.o. he received olanzapine IM. 2. Continue with Valium 5 mg p.o. t.i.d. if he refuses he will get Valium IM. 3. We will encourage compliance. The patient had been noncompliant with sertraline, he remains dysphoric. 4. The patient has a healthcare proxy who was affirmed by court, and they want us to medicate him even if the patient does not want to be compliant. 5. At this moment the patient is slightly over-sedated with EPS but we will keep the same dose of antipsychotics since his violence has improved. 01/03/25 Continue plan of care Reassess treatment plan which includes IM medication patient has been much less aggressive than he has in the past Unclear discharge plan at this point 01/04/2025 Patient taking Valium and olanzapine regularly has IM prescribed if refuses intermittently taking medication for diabetes hypertension 01/05/25 Cont medicationhas been stabilizing try and d/c meds that are not esential simplify regimen 01/06/25 stop namenda monitor sugar / bp encourage med acceptance cont valium olanzapine 01/08/2025 Continue olanzapine Valium metformin try and taper and simplify medication as tolerated discharge planning monitor response to change in medication 01/09/25 Try and simplify med regimen d/c planning 01/11/2025 Patient generally more cooperative not agitated generally monitor blood sugar and blood pressure intermittently refuses some doses of metformin 01/12/25 Pt seen later in day seemed stable flat some balance problems noted lowwer trileptal and primidone ck ortho vs dailypt consult for balance 01/13/2025 Patient improving less reactive has not been aggressive more cooperative with treatment and medication. Discharge planning 01/14: fell this morning, per head/c-spine CT and pelvic XR, no osseus injuries. pt appears as at recent mental status. no complaints or requests other than for wheelchair. pt will have 1:1 for ambulation for now. continue current psychopharm mgmt. 01/15: Continue current management and treatment plan. 01/16: continue current management and treatment plan. 01/17 keep same treatment. 01/18 keep same treatment 01/19 keep same treatment 01/20 keep same treatment Reason for continued inpatient stay Substantial Risk for: inability to function, rapid decompensation and med/psych decompensation Time Spent With Patient Time: Total time managing care of this patient today __20__ minutes.
[2025-01-20 20:00] VITALS: BP 112/76; PULSE 76; RESP 16; TEMP 36.3; O2SAT 96
[2025-01-20] MEDS: OLANZapine 10 MG TABLET 20 MG PO (20:28)
[2025-01-20] MEDS: Sertraline HCL 100 MG TABLET PO (20:28)
[2025-01-20] MEDS: OXcarbazepine 300 MG TABLET PO (20:28)
[2025-01-20] MEDS: Mirtazapine 30 MG TABLET PO (20:29)
[2025-01-21 08:00] VITALS: BP 124/74; PULSE 74; RESP 16; O2SAT 98
[2025-01-21 08:27] LABS: Estimated Glomerular Filt Rate > 60
[2025-01-21] MEDS: Primidone 50 MG TABLET 25 MG PO ×2 (09:04→20:24)
[2025-01-21] MEDS: diazePAM 2 MG TABLET 4 MG PO ×3 (09:04→20:25)
[2025-01-21] MEDS: OLANZapine ODT 10 MG TAB.RAPDIS TRANSLINGU (09:04)
[2025-01-21] MEDS: lisinopriL 20 MG TABLET PO (09:04)
[2025-01-21] MEDS: metFORMIN HCl ER 500 MG TAB.ER.24H 1000 MG PO (09:05)
[2025-01-21] MEDS: Empagliflozin 10 MG TABLET PO (09:05)
--- NOTE | 2025-01-21 16:57 | MHC.SL.SWA ---
Speech Pathologist Impression: WFL Risk of Aspiration Due to: Reduced Cognition Dysphasia Diet Status: No Change Liquid Consistency and Strategies for Safe Swallow: Liquid Intake Recommendation: Thin Liquid Intake Strategies: Small Sips Solid Food Consistency: Dietary Recommendations: Regular Additional Modifications to Solid Foods: Patient seen for bedside dysphagia evaluation in [facility]. Patient consumed potato chips and thin liquids via cup and straw. No overt s/s of aspiration noted. Patient tolerated regular texture foods without difficulty. Recommend continue on REGULAR solids and THIN liquids, pills WHOLE with LIQUID. Please re-refer with any changes or further concern. Oral Medication Intake: Whole with Liquid Please contact the pharmacy regarding appropriate crushable or liquid drug formulations that are available whenever modified delivery is recommended. Compensatory Strategies and Precautions to be Taken for Safe Swallow: Sitting Upright (90 deg) Small Bites and Sips Rate of Ingestion Change Supervision While Eating and Drinking for Safe Swallow: Total Supervision (1:1) Recommendation for Speech: NA:Typical Evaluation Radio Division Captain Clinican/Clinical Fellow: No Supervisory Statement: I have reviewed and agree with the student/clinical fellow's documentation: N/A Speech Language Pathologist: July Matthews M.A., CCC-AIR BRAKE OPERATOR
--- NOTE | 2025-01-21 17:24 | HO.PSYCHPN ---
Subjective Subjective Date of Service: 01/21/25 Reason For Visit: Anxiety, mood disorder, ASD Subjective Notes: Conditional Voluntary Interim History: The nursing staff reported the patient had been compliant with treatment, he was seen choking with liquids so we order the speech and swallow evaluation. The speech and swallow a specialist found out that there was no new findings and he can drink liquids normally. On interview the patient denies new symptoms waiting for placement. Mental Status Exam Mental Status Exam Patient Appearance: Appropriate Patient Orientation: Person and Situation Level of Consciousness: Awake and Appropriate Patient Behavior: Guarded and Passive Mood Description: Withdrawn Affect Description: Constricted Patient Cognition Impaired: Yes Ability to Follow Directions: Good Speech Pattern: Clear Hallucinations: None Delusions: Not Present Thought Process: Distracted and Slowed Thinking Thought Content: positive for [place] and positive for Poverty of Content Judgement: Poor Diagnostics Vital Signs (24Hr): Vital Signs - 24 hr 01/20/25 20:00 01/21/25 08:00 Temperature 97.3 F Pulse Rate 76 74 Respiratory Rate 16 16 Blood Pressure 112/76 124/74 Pulse Oximetry 96 98 Oxygen Delivery Method Room Air Room Air BMI result Body Mass Index 27.1 Labs 10/28/24 09:10 01/21/25 08:03 Labs: Laboratory Results - last 48 hr 01/21/25 08:03 Creatinine 1.11 Estim Creat Clear Calc 65.0 Estimated GFR > 60 Imaging Radiology Impressions: ITS Impressions Hip X-Ray 01/12/25 13:30 IMPRESSION: No evidence of fracture of the bilateral hips. Electronically signed by: Kaushal Soni MD 01/12/2025 01:54 PM EDT RP Cervical Spine CT 01/14/25 07:59 IMPRESSION: Multilevel cervical spondylosis without acute fracture or trauma-related listhesis. Fleischner guidelines were followed. Electronically signed by: Abe Griffin MD 01/14/2025 09:50 AM EDT RP Head CT 01/14/25 08:30 IMPRESSION: No acute intracranial abnormality. No fracture seen. Electronically signed by: Chidi Rodriguez MD 01/17/2025 01:08 PM EDT RP Hip/Pelvis X-Ray 01/14/25 09:10 IMPRESSION: No acute fracture or dislocation. Electronically signed by: Abe Griffin MD 01/14/2025 10:35 AM EDT Medications Medications Current Medications Acetaminophen (Acetaminophen 325 Mg Tablet) 650 mg PO Q6H PRN PRN Reason: Headache/Pain Mild Scale (1-3) Benztropine Mesylate (Benztropine Mesylate 1 Mg Tablet) 1 mg PO BEDTIME PRN PRN Reason: Extrapyramidal Effects Diazepam (Diazepam 10 Mg/2 Ml Cartridge) 5 mg IM TID PRN PRN Reason: PO refusal. HOLD FOR SEDATION Last Admin: 12/21/24 10:22 Dose: 5 mg Diazepam (Diazepam 2 Mg Tablet) 4 mg PO TID DESIRAE Last Admin: 01/21/25 15:16 Dose: 4 mg Empagliflozin (Empagliflozin 10 Mg Tablet) 10 mg PO DAILY DESIRAE Last Admin: 01/21/25 09:05 Dose: 10 mg Lisinopril (Lisinopril 20 Mg Tablet) 20 mg PO DAILY DESIRAE; Protocol Last Admin: 01/21/25 09:04 Dose: 20 mg Metformin HCl (Metformin Hcl Er 500 Mg Tab.Er.24h) 1,000 mg PO DAILY DESIRAE Last Admin: 01/21/25 09:05 Dose: 1,000 mg Mirtazapine (Mirtazapine 30 Mg Tablet) 30 mg PO BEDTIME DESIRAE Last Admin: 01/20/25 20:29 Dose: 30 mg Nicotine Polacrilex (Nicotine Polacrilex 2 Mg Gum) 4 mg BUCCAL Q2H PRN PRN Reason: Nicotine Cravings Olanzapine (Olanzapine 10 Mg Tablet) 20 mg PO BEDTIME [facility]IRAE Last Admin: 01/20/25 20:28 Dose: 20 mg Olanzapine (Olanzapine Odt 10 Mg Tab.Rapdis) 10 mg TRANSLINGU DAILY DESIRAE Last Admin: 01/21/25 09:04 Dose: 10 mg Olanzapine (Olanzapine 10 Mg Vial) 10 mg IM BID PRN PRN Reason: PO refusal Last Admin: 12/21/24 10:22 Dose: 10 mg Olanzapine (Olanzapine Odt 10 Mg Tab.Rapdis) 10 mg TRANSLINGU BID PRN PRN Reason: agitation Last Admin: 01/14/25 12:16 Dose: 10 mg Oxcarbazepine (Oxcarbazepine 300 Mg Tablet) 300 mg PO BEDTIME DESIRAE Last Admin: 01/20/25 20:28 Dose: 300 mg Primidone (Primidone 50 Mg Tablet) 25 mg PO BID [facility] Last Admin: 01/21/25 09:04 Dose: 25 mg Sertraline HCl (Sertraline Hcl 100 Mg Tablet) 100 mg PO BEDTIME [facility] Last Admin: 01/20/25 20:28 Dose: 100 mg Trazodone HCl (Trazodone Hcl 50 Mg Tablet) 50 mg PO BEDTIME PRN PRN Reason: Insomnia Allergies Allergies Allergy/AdvReac Type Severity Reaction Status Date / Time No Known Allergies Allergy Verified 10/14/24 18:14 [No Known Allergies*] Assessment & Plan Assessment & Plan (1) Mood disorder: Status: Acute Code(s): F39 - Unspecified mood [affective] disorder (2) Autism spectrum disorder: Status: Acute Code(s): F84.0 - Autistic disorder (3) Dementia: Status: Acute Code(s): F03.90 - Unspecified dementia, unspecified severity, without behavioral disturbance, psychotic disturbance, mood disturbance, and anxiety Plan Humza was admitted for safety and stabilization. His presentation is very similar to his last admission psychiatrically about a year ago and that is why his caregivers wanted to get ahead of things before he decompensated further. Current medications were reviewed and maintained. Contacts to be made with his treaters next week. 10/17: Continue current regimen and plans 10/19: Continue current tx plan and regime. 10/21: Memantine 5 mg daily- [facility], memory sx Abilify 2 mg daily-augment to antidepressants currently being used. 10/22 continue current tx plan -pt confused 10/23 Continue trials, regime and plan. 10/24: Continue regime and plan of care. 10/25 Abilify increased up to 5 mg. 10/26 keep on same treatment 10/27/24 continues with many complaints, no clear insight into self- 10/28 continue same treatment 10/29 increase Namenda to 5 mg p.o. b.i.d. and change Depakote to Depakene. Depakote level on 13/02 as per blood work of yesterday 10/30/24 - dc abilify inc olanzapine = continue depakene as he did take 5 capsules this am- prn olanzapine given - this afternoon for behaviors on unit- 10/31/24 wrote for liquid depakote option if refuses capsules, also got prn olanzapine for throwing self on floor 11/01 keep same treatment 11/02 increase Zyprexa to 20 mg p.o. q.h.s. 11/03 keep same treatment. 11/04 discontinue Depakote and start Trileptal 300 mg p.o. b.i.d.. Her healthcare proxy will bring a copy of that we are going to invoke it 11/06 increase olanzapine to 20mg po qhs and 10mg po daily. 11/07 continue tx. 12/04 continue tx. 12/05: no changes 12/06 continue tx. 12/12: continue plan of care 12/13: continue tx 12/19 continue current tx plan 12/25: appearing sedated, more of a falls risk, poorer ability to do ADLs. decrease trileptal dosing from 600 BID to 300 BID for now. 12/26: less sedated than yesterday, continue current mgmt, including 1:1, until attending can see pt in the morning. 12/30: continues less sedated. minimally interactive. continue current mgmt. 12/31: per HCP, not at baseline, over-sedated. begin valium taper. decrease valium 5 TID to 4 TID for now. per HCP and SW, HCP has been affirmed in court. IM back-up orders in place and to be enforced by nursing staff. no aggressive or agitated behaviors. 01/02: Continue current regimen and plans Plan 1. Continue with olanzapine 10 mg p.o. q.a.m. and 20 mg p.o. q.h.s., he refused p.o. he received olanzapine IM. 2. Continue with Valium 5 mg p.o. t.i.d. if he refuses he will get Valium IM. 3. We will encourage compliance. The patient had been noncompliant with sertraline, he remains dysphoric. 4. The patient has a healthcare proxy who was affirmed by court, and they want us to medicate him even if the patient does not want to be compliant. 5. At this moment the patient is slightly over-sedated with EPS but we will keep the same dose of antipsychotics since his violence has improved. 01/03/25 Continue plan of care Reassess treatment plan which includes IM medication patient has been much less aggressive than he has in the past Unclear discharge plan at this point 01/04/2025 Patient taking Valium and olanzapine regularly has IM prescribed if refuses intermittently taking medication for diabetes hypertension 01/05/25 Cont medicationhas been stabilizing try and d/c meds that are not esential simplify regimen 01/06/25 stop namenda monitor sugar / bp encourage med acceptance cont valium olanzapine 01/08/2025 Continue olanzapine Valium metformin try and taper and simplify medication as tolerated discharge planning monitor response to change in medication 01/09/25 Try and simplify med regimen d/c planning 01/11/2025 Patient generally more cooperative not agitated generally monitor blood sugar and blood pressure intermittently refuses some doses of metformin 01/12/25 Pt seen later in day seemed stable flat some balance problems noted lowwer trileptal and primidone ck ortho vs dailypt consult for balance 01/13/2025 Patient improving less reactive has not been aggressive more cooperative with treatment and medication. Discharge planning 01/14: fell this morning, per head/c-spine CT and pelvic XR, no osseus injuries. pt appears as at recent mental status. no complaints or requests other than for wheelchair. pt will have 1:1 for ambulation for now. continue current psychopharm mgmt. 01/15: Continue current management and treatment plan. 01/16: continue current management and treatment plan. 01/17 keep same treatment. 01/18 keep same treatment 01/19 keep same treatment 01/20 keep same treatment 01/21 keep same treatment Reason for continued inpatient stay Substantial Risk for: inability to function, rapid decompensation and med/psych decompensation Time Spent With Patient Time: Total time managing care of this patient today __20__ minutes.
[2025-01-21 20:00] VITALS: BP 107/66; PULSE 86; RESP 16; TEMP 36.2; O2SAT 97
[2025-01-21] MEDS: Sertraline HCL 100 MG TABLET PO (20:25)
[2025-01-21] MEDS: Mirtazapine 30 MG TABLET PO (20:25)
[2025-01-21] MEDS: OXcarbazepine 300 MG TABLET PO (20:25)
[2025-01-21] MEDS: OLANZapine 10 MG TABLET 20 MG PO (20:25)
[2025-01-22 08:15] VITALS: BP 122/73; PULSE 83; RESP 18; TEMP 36.8; O2SAT 98
[2025-01-22] MEDS: diazePAM 2 MG TABLET 4 MG PO ×3 (08:38→20:47)
[2025-01-22] MEDS: Primidone 50 MG TABLET 25 MG PO ×2 (08:38→20:46)
[2025-01-22] MEDS: metFORMIN HCl ER 500 MG TAB.ER.24H 1000 MG PO (08:38)
[2025-01-22] MEDS: OLANZapine ODT 10 MG TAB.RAPDIS TRANSLINGU (08:38)
[2025-01-22] MEDS: lisinopriL 20 MG TABLET PO (08:39)
[2025-01-22] MEDS: Empagliflozin 10 MG TABLET PO (08:39)
--- NOTE | 2025-01-22 17:10 | P.PNPSI_ITS ---
Subjective Subjective Date of Service: 01/22/25 Reason For Visit: Anxiety, mood disorder, ASD Interim History: calm, cooperative. no complaints questions or requests. per staff, visible but isolative. flat, staring. suspicious re meds, but taking them. sleeping well. Mental Status Exam Mental Status Exam Patient Appearance: Appropriate Patient Orientation: Person and Situation Level of Consciousness: Awake and Appropriate Patient Behavior: Guarded and Passive Mood Description: Withdrawn Affect Description: Constricted Patient Cognition Impaired: Yes Ability to Follow Directions: Good Speech Pattern: Clear Hallucinations: None Delusions: Not Present Thought Process: Distracted and Slowed Thinking Thought Content: positive for [place] and positive for Poverty of Content Judgement: Poor Diagnostics Vital Signs (24Hr): Vital Signs - 24 hr 01/21/25 20:00 01/22/25 08:15 Temperature 97.2 F 98.2 F Pulse Rate 86 83 Respiratory Rate 16 18 Blood Pressure 107/66 122/73 Pulse Oximetry 97 98 Oxygen Delivery Method Room Air Room Air BMI result Body Mass Index 27.1 Labs 10/28/24 09:10 01/21/25 08:03 Labs: Laboratory Results - last 48 hr 01/21/25 08:03 Creatinine 1.11 Estim Creat Clear Calc 65.0 Estimated GFR > 60 Imaging Radiology Impressions: ITS Impressions Hip X-Ray 01/12/25 13:30 IMPRESSION: No evidence of fracture of the bilateral hips. Electronically signed by: Kaushal Soni MD 01/12/2025 01:54 PM EDT RP Cervical Spine CT 01/14/25 07:59 IMPRESSION: Multilevel cervical spondylosis without acute fracture or trauma-related listhesis. Fleischner guidelines were followed. Electronically signed by: Abe Griffin MD 01/14/2025 09:50 AM EDT RP Head CT 01/14/25 08:30 IMPRESSION: No acute intracranial abnormality. No fracture seen. Electronically signed by: Chidi Rodriguez MD 01/17/2025 01:08 PM EDT RP Hip/Pelvis X-Ray 01/14/25 09:10 IMPRESSION: No acute fracture or dislocation. Electronically signed by: Abe Griffin MD 01/14/2025 10:35 AM EDT RP Medications Medications Current Medications Acetaminophen (Acetaminophen 325 Mg Tablet) 650 mg PO Q6H PRN PRN Reason: Headache/Pain Mild Scale (1-3) Benztropine Mesylate (Benztropine Mesylate 1 Mg Tablet) 1 mg PO BEDTIME PRN PRN Reason: Extrapyramidal Effects Diazepam (Diazepam 10 Mg/2 Ml Cartridge) 5 mg IM TID PRN PRN Reason: PO refusal. HOLD FOR SEDATION Last Admin: 12/21/24 10:22 Dose: 5 mg Diazepam (Diazepam 2 Mg Tablet) 4 mg PO TID DESIRAE Last Admin: 01/22/25 14:29 Dose: 4 mg Empagliflozin (Empagliflozin 10 Mg Tablet) 10 mg PO DAILY DESIRAE Last Admin: 01/22/25 08:39 Dose: 10 mg Lisinopril (Lisinopril 20 Mg Tablet) 20 mg PO DAILY DESRIAE; Protocol Last Admin: 01/22/25 08:39 Dose: 20 mg Metformin HCl (Metformin Hcl Er 500 Mg Tab.Er.24h) 1,000 mg PO DAILY DESIRAE Last Admin: 01/22/25 08:38 Dose: 1,000 mg Mirtazapine (Mirtazapine 30 Mg Tablet) 30 mg PO BEDTIME DESIRAE Last Admin: 01/21/25 20:25 Dose: 30 mg Nicotine Polacrilex (Nicotine Polacrilex 2 Mg Gum) 4 mg BUCCAL Q2H PRN PRN Reason: Nicotine Cravings Olanzapine (Olanzapine 10 Mg Tablet) 20 mg PO BEDTIME DESIRAE Last Admin: 01/21/25 20:25 Dose: 20 mg Olanzapine (Olanzapine Odt 10 Mg Tab.Rapdis) 10 mg TRANSLINGU DAILY DESIRAE Last Admin: 01/22/25 08:38 Dose: 10 mg Olanzapine (Olanzapine 10 Mg Vial) 10 mg IM BID PRN PRN Reason: PO refusal Last Admin: 12/21/24 10:22 Dose: 10 mg Olanzapine (Olanzapine Odt 10 Mg Tab.Rapdis) 10 mg TRANSLINGU BID PRN PRN Reason: agitation Last Admin: 01/14/25 12:16 Dose: 10 mg Oxcarbazepine (Oxcarbazepine 300 Mg Tablet) 300 mg PO BEDTIME [facility] Last Admin: 01/21/25 20:25 Dose: 300 mg Primidone (Primidone 50 Mg Tablet) 25 mg PO BID [facility] Last Admin: 01/22/25 08:38 Dose: 25 mg Sertraline HCl (Sertraline Hcl 100 Mg Tablet) 100 mg PO BEDTIME [facility]IRAE Last Admin: 01/21/25 20:25 Dose: 100 mg Trazodone HCl (Trazodone Hcl 50 Mg Tablet) 50 mg PO BEDTIME PRN PRN Reason: Insomnia Allergies Allergies Allergy/AdvReac Type Severity Reaction Status Date / Time No Known Allergies Allergy Verified 10/14/24 18:14 [No Known Allergies*] Assessment & Plan Assessment & Plan (1) Mood disorder: Status: Acute Code(s): F39 - Unspecified mood [affective] disorder (2) Autism spectrum disorder: Status: Acute Code(s): F84.0 - Autistic disorder (3) Dementia: Status: Acute Code(s): F03.90 - Unspecified dementia, unspecified severity, without behavioral disturbance, psychotic disturbance, mood disturbance, and anxiety Plan Humza was admitted for safety and stabilization. His presentation is very similar to his last admission psychiatrically about a year ago and that is why his caregivers wanted to get ahead of things before he decompensated further. Current medications were reviewed and maintained. Contacts to be made with his treaters next week. 10/17: Continue current regimen and plans 10/19: Continue current tx plan and regime. 10/21: Memantine 5 mg daily- [facility], memory sx Abilify 2 mg daily-augment to antidepressants currently being used. 10/22 continue current tx plan -pt confused 10/23 Continue trials, regime and plan. 10/24: Continue regime and plan of care. 10/25 Abilify increased up to 5 mg. 10/26 keep on same treatment 10/27/24 continues with many complaints, no clear insight into self- 10/28 continue same treatment 10/29 increase Namenda to 5 mg p.o. b.i.d. and change Depakote to Depakene. Depakote level on 13/02 as per blood work of yesterday 10/30/24 - in [facility] olanzapine = continue depakene as he did take 5 capsules this am- prn olanzapine given - this afternoon for behaviors on unit- 10/31/24 wrote for liquid depakote option if refuses capsules, also got prn olanzapine for throwing self on floor 11/01 keep same treatment 11/02 increase Zyprexa to 20 mg p.o. q.h.s. 11/03 keep same treatment. 11/04 discontinue Depakote and start Trileptal 300 mg p.o. b.i.d.. Her healthcare proxy will bring a copy of that we are going to invoke it 11/06 increase olanzapine to 20mg po qhs and 10mg po daily. 11/07 continue tx. 12/04 continue tx. 12/05: no changes 12/06 continue tx. 12/12: continue plan of care 12/13: continue tx 12/19 continue current tx plan 12/25: appearing sedated, more of a falls risk, poorer ability to do ADLs. decrease trileptal dosing from 600 BID to 300 BID for now. 12/26: less sedated than yesterday, continue current mgmt, including 1:1, until attending can see pt in the morning. 12/30: continues less sedated. minimally interactive. continue current mgmt. 12/31: per HCP, not at baseline, over-sedated. begin valium taper. decrease valium 5 TID to 4 TID for now. per HCP and SW, HCP has been affirmed in court. IM back-up orders in place and to be enforced by nursing staff. no aggressive or agitated behaviors. 01/02: Continue current regimen and plans Plan 1. Continue with olanzapine 10 mg p.o. q.a.m. and 20 mg p.o. q.h.s., he refused p.o. he received olanzapine IM. 2. Continue with Valium 5 mg p.o. t.i.d. if he refuses he will get Valium IM. 3. We will encourage compliance. The patient had been noncompliant with sertraline, he remains dysphoric. 4. The patient has a healthcare proxy who was affirmed by court, and they want us to medicate him even if the patient does not want to be compliant. 5. At this moment the patient is slightly over-sedated with EPS but we will keep the same dose of antipsychotics since his violence has improved. 01/03/25 Continue plan of care Reassess treatment plan which includes IM medication patient has been much less aggressive than he has in the past Unclear discharge plan at this point 01/04/2025 Patient taking Valium and olanzapine regularly has IM prescribed if refuses intermittently taking medication for diabetes hypertension 01/05/25 Cont medicationhas been stabilizing try and d/c meds that are not esential simplify regimen 01/06/25 stop namenda monitor sugar / bp encourage med acceptance cont valium olanzapine 01/08/2025 Continue olanzapine Valium metformin try and taper and simplify medication as tolerated discharge planning monitor response to change in medication 01/09/25 Try and simplify med regimen d/c planning 01/11/2025 Patient generally more cooperative not agitated generally monitor blood sugar and blood pressure intermittently refuses some doses of metformin 01/12/25 Pt seen later in day seemed stable flat some balance problems noted lowwer trileptal and primidone ck ortho vs dailypt consult for balance 01/13/2025 Patient improving less reactive has not been aggressive more cooperative with treatment and medication. Discharge planning 01/14: fell this morning, per head/c-spine CT and pelvic XR, no osseus injuries. pt appears as at recent mental status. no complaints or requests other than for wheelchair. pt will have 1:1 for ambulation for now. continue current psychopharm mgmt. 01/15: Continue current management and treatment plan. 01/16: continue current management and treatment plan. 01/17 keep same treatment. 01/18 keep same treatment 01/19 keep same treatment 01/20 keep same treatment 01/21 keep same treatment 01/22: calm, cooperative, flat. no questions or complaints. stable presentation. continue current mgmt. Reason for continued inpatient stay Substantial Risk for: inability to function and rapid decompensation Time Spent With Patient Time: Total time managing care of this patient today ____ minutes.
[2025-01-22 20:00] VITALS: BP 107/67; PULSE 72; RESP 16; TEMP 36.6; O2SAT 97
[2025-01-22] MEDS: Sertraline HCL 100 MG TABLET PO (20:48)
[2025-01-22] MEDS: Mirtazapine 30 MG TABLET PO (20:48)
[2025-01-22] MEDS: OXcarbazepine 300 MG TABLET PO (20:48)
[2025-01-22] MEDS: OLANZapine 10 MG TABLET 20 MG PO (20:49)
[2025-01-23 07:55] VITALS: BP 123/69; PULSE 70; RESP 18; TEMP 36.9; O2SAT 97
[2025-01-23] MEDS: OLANZapine ODT 10 MG TAB.RAPDIS TRANSLINGU (08:17)
[2025-01-23] MEDS: Empagliflozin 10 MG TABLET PO (08:17)
[2025-01-23] MEDS: metFORMIN HCl ER 500 MG TAB.ER.24H 1000 MG PO (08:17)
[2025-01-23] MEDS: Primidone 50 MG TABLET 25 MG PO ×2 (08:17→19:55)
[2025-01-23] MEDS: lisinopriL 20 MG TABLET PO (08:17)
[2025-01-23] MEDS: diazePAM 2 MG TABLET 4 MG PO ×3 (08:17→19:56)
--- NOTE | 2025-01-23 16:59 | P.PNPSI_ITS ---
Subjective Subjective Date of Service: 01/23/25 Reason For Visit: Anxiety, mood disorder, ASD Interim History: sitting watching TV. pleasant, calm, cooperative. no complaints or requests. per staff, taking meds, sleeping, eating, not assaulting. Mental Status Exam Mental Status Exam Patient Appearance: Appropriate Patient Orientation: Person and Situation Level of Consciousness: Awake and Appropriate Patient Behavior: Guarded and Passive Mood Description: Withdrawn Affect Description: Constricted Patient Cognition Impaired: Yes Ability to Follow Directions: Good Speech Pattern: Clear Hallucinations: None Delusions: Not Present Thought Process: Distracted and Slowed Thinking Thought Content: positive for [place] and positive for Poverty of Content Judgement: Poor Diagnostics Vital Signs (24Hr): Vital Signs - 24 hr 01/22/25 20:00 01/23/25 07:55 Temperature 97.8 F 98.4 F Pulse Rate 72 70 Respiratory Rate 16 18 Blood Pressure 107/67 123/69 Pulse Oximetry 97 97 Oxygen Delivery Method Room Air Room Air BMI result Body Mass Index 27.1 Labs 10/28/24 09:10 01/21/25 08:03 Imaging Radiology Impressions: ITS Impressions Hip X-Ray 01/12/25 13:30 IMPRESSION: No evidence of fracture of the bilateral hips. Electronically signed by: Kaushal Soni MD 01/12/2025 01:54 PM EDT RP Cervical Spine CT 01/14/25 07:59 IMPRESSION: Multilevel cervical spondylosis without acute fracture or trauma-related listhesis. Fleischner guidelines were followed. Electronically signed by: Abe Griffin MD 01/14/2025 09:50 AM EDT RP Head CT 01/14/25 08:30 IMPRESSION: No acute intracranial abnormality. No fracture seen. Electronically signed by: Chidi Rodriguez MD 01/17/2025 01:08 PM EDT RP Hip/Pelvis X-Ray 01/14/25 09:10 IMPRESSION: No acute fracture or dislocation. Electronically signed by: Abe Griffin MD 01/14/2025 10:35 AM EDT RP Medications Medications Current Medications Acetaminophen (Acetaminophen 325 Mg Tablet) 650 mg PO Q6H PRN PRN Reason: Headache/Pain Mild Scale (1-3) Benztropine Mesylate (Benztropine Mesylate 1 Mg Tablet) 1 mg PO BEDTIME PRN PRN Reason: Extrapyramidal Effects Diazepam (Diazepam 10 Mg/2 Ml Cartridge) 5 mg IM TID PRN PRN Reason: PO refusal. HOLD FOR SEDATION Last Admin: 12/21/24 10:22 Dose: 5 mg Diazepam (Diazepam 2 Mg Tablet) 4 mg PO TID DESIRAE Last Admin: 01/23/25 15:00 Dose: 4 mg Empagliflozin (Empagliflozin 10 Mg Tablet) 10 mg PO DAILY DESIRAE Last Admin: 01/23/25 08:17 Dose: 10 mg Lisinopril (Lisinopril 20 Mg Tablet) 20 mg PO DAILY [facility]; Protocol Last Admin: 01/23/25 08:17 Dose: 20 mg Metformin HCl (Metformin Hcl Er 500 Mg Tab.Er.24h) 1,000 mg PO DAILY DESIRAE Last Admin: 01/23/25 08:17 Dose: 1,000 mg Mirtazapine (Mirtazapine 30 Mg Tablet) 30 mg PO BEDTIME DESIRAE Last Admin: 01/22/25 20:48 Dose: 30 mg Nicotine Polacrilex (Nicotine Polacrilex 2 Mg Gum) 4 mg BUCCAL Q2H PRN PRN Reason: Nicotine Cravings Olanzapine (Olanzapine 10 Mg Tablet) 20 mg PO BEDTIME DESIRAE Last Admin: 01/22/25 20:49 Dose: 20 mg Olanzapine (Olanzapine Odt 10 Mg Tab.Rapdis) 10 mg TRANSLINGU DAILY DESIRAE Last Admin: 01/23/25 08:17 Dose: 10 mg Olanzapine (Olanzapine 10 Mg Vial) 10 mg IM BID PRN PRN Reason: PO refusal Last Admin: 12/21/24 10:22 Dose: 10 mg Olanzapine (Olanzapine Odt 10 Mg Tab.Rapdis) 10 mg TRANSLINGU BID PRN PRN Reason: agitation Last Admin: 01/14/25 12:16 Dose: 10 mg Oxcarbazepine (Oxcarbazepine 300 Mg Tablet) 300 mg PO BEDTIME DESIRAE Last Admin: 01/22/25 20:48 Dose: 300 mg Primidone (Primidone 50 Mg Tablet) 25 mg PO BID DESIRAE Last Admin: 01/23/25 08:17 Dose: 25 mg Sertraline HCl (Sertraline Hcl 100 Mg Tablet) 100 mg PO BEDTIME DESIRAE Last Admin: 01/22/25 20:48 Dose: 100 mg Trazodone HCl (Trazodone Hcl 50 Mg Tablet) 50 mg PO BEDTIME PRN PRN Reason: Insomnia Allergies Allergies Allergy/AdvReac Type Severity Reaction Status Date / Time No Known Allergies Allergy Verified 10/14/24 18:14 [No Known Allergies*] Assessment & Plan Assessment & Plan (1) Mood disorder: Status: Acute Code(s): F39 - Unspecified mood [affective] disorder (2) Autism spectrum disorder: Status: Acute Code(s): F84.0 - Autistic disorder (3) Dementia: Status: Acute Code(s): F03.90 - Unspecified dementia, unspecified severity, without behavioral disturbance, psychotic disturbance, mood disturbance, and anxiety Plan Humza was admitted for safety and stabilization. His presentation is very similar to his last admission psychiatrically about a year ago and that is why his caregivers wanted to get ahead of things before he decompensated further. Current medications were reviewed and maintained. Contacts to be made with his treaters next week. 10/17: Continue current regimen and plans 10/19: Continue current tx plan and regime. 10/21: Memantine 5 mg daily- [facility]CI, memory sx Abilify 2 mg daily-augment to antidepressants currently being used. 10/22 continue current tx plan -pt confused 10/23 Continue trials, regime and plan. 10/24: Continue regime and plan of care. 10/25 Abilify increased up to 5 mg. 10/26 keep on same treatment 10/27/24 continues with many complaints, no clear insight into self- 10/28 continue same treatment 10/29 increase Namenda to 5 mg p.o. b.i.d. and change Depakote to Depakene. Depakote level on 13/02 as per blood work of yesterday 10/30/24 - dc abilichina inc olanzapine = continue depakene as he did take 5 capsules this am- prn olanzapine given - this afternoon for behaviors on unit- 10/31/24 wrote for liquid depakote option if refuses capsules, also got prn olanzapine for throwing self on floor 11/01 keep same treatment 11/02 increase Zyprexa to 20 mg p.o. q.h.s. 11/03 keep same treatment. 11/04 discontinue Depakote and start Trileptal 300 mg p.o. b.i.d.. Her healthcare proxy will bring a copy of that we are going to invoke it 11/06 increase olanzapine to 20mg po qhs and 10mg po daily. 11/07 continue tx. 12/04 continue tx. 12/05: no changes 12/06 continue tx. 12/12: continue plan of care 12/13: continue tx 12/19 continue current tx plan 12/25: appearing sedated, more of a falls risk, poorer ability to do ADLs. decrease trileptal dosing from 600 BID to 300 BID for now. 12/26: less sedated than yesterday, continue current mgmt, including 1:1, until attending can see pt in the morning. 12/30: continues less sedated. minimally interactive. continue current mgmt. 12/31: per HCP, not at baseline, over-sedated. begin valium taper. decrease valium 5 TID to 4 TID for now. per HCP and SW, HCP has been affirmed in court. IM back-up orders in place and to be enforced by nursing staff. no aggressive or agitated behaviors. 01/02: Continue current regimen and plans Plan 1. Continue with olanzapine 10 mg p.o. q.a.m. and 20 mg p.o. q.h.s., he refused p.o. he received olanzapine IM. 2. Continue with Valium 5 mg p.o. t.i.d. if he refuses he will get Valium IM. 3. We will encourage compliance. The patient had been noncompliant with sertraline, he remains dysphoric. 4. The patient has a healthcare proxy who was affirmed by court, and they want us to medicate him even if the patient does not want to be compliant. 5. At this moment the patient is slightly over-sedated with EPS but we will keep the same dose of antipsychotics since his violence has improved. 01/03/25 Continue plan of care Reassess treatment plan which includes IM medication patient has been much less aggressive than he has in the past Unclear discharge plan at this point 01/04/2025 Patient taking Valium and olanzapine regularly has IM prescribed if refuses intermittently taking medication for diabetes hypertension 01/05/25 Cont medicationhas been stabilizing try and d/c meds that are not esential simplify regimen 01/06/25 stop namenda monitor sugar / bp encourage med acceptance cont valium olanzapine 01/08/2025 Continue olanzapine Valium metformin try and taper and simplify medication as tolerated discharge planning monitor response to change in medication 01/09/25 Try and simplify med regimen d/c planning 01/11/2025 Patient generally more cooperative not agitated generally monitor blood sugar and blood pressure intermittently refuses some doses of metformin 01/12/25 Pt seen later in day seemed stable flat some balance problems noted lowwer trileptal and primidone ck ortho vs dailypt consult for balance 01/13/2025 Patient improving less reactive has not been aggressive more cooperative with treatment and medication. Discharge planning 01/14: fell this morning, per head/c-spine CT and pelvic XR, no osseus injuries. pt appears as at recent mental status. no complaints or requests other than for wheelchair. pt will have 1:1 for ambulation for now. continue current psychopharm mgmt. 01/15: Continue current management and treatment plan. 01/16: continue current management and treatment plan. 01/17 keep same treatment. 01/18 keep same treatment 01/19 keep same treatment 01/20 keep same treatment 01/21 keep same treatment 01/22: calm, cooperative, flat. no questions or complaints. stable presentation. continue current mgmt. 01/23: no change, continue current mgmt. Reason for continued inpatient stay Substantial Risk for: inability to function and rapid decompensation Time Spent With Patient Time: Total time managing care of this patient today ____ minutes.
[2025-01-23] MEDS: OXcarbazepine 300 MG TABLET PO (19:56)
[2025-01-23] MEDS: Sertraline HCL 100 MG TABLET PO (19:56)
[2025-01-23] MEDS: OLANZapine 10 MG TABLET 20 MG PO (19:56)
[2025-01-23] MEDS: Mirtazapine 30 MG TABLET PO (19:56)
[2025-01-23 20:00] VITALS: BP 97/57; PULSE 78; RESP 18; TEMP 36.7; O2SAT 97
[2025-01-24 09:07] VITALS: BP 114/70; PULSE 79; RESP 16; TEMP 36.2; O2SAT 97
[2025-01-24] MEDS: diazePAM 2 MG TABLET 4 MG PO ×3 (09:07→20:27)
[2025-01-24] MEDS: Primidone 50 MG TABLET 25 MG PO ×2 (09:07→20:25)
[2025-01-24] MEDS: metFORMIN HCl ER 500 MG TAB.ER.24H 1000 MG PO (09:08)
[2025-01-24] MEDS: lisinopriL 20 MG TABLET PO (09:08)
[2025-01-24] MEDS: Empagliflozin 10 MG TABLET PO (09:08)
[2025-01-24] MEDS: OLANZapine ODT 10 MG TAB.RAPDIS TRANSLINGU (09:09)
--- NOTE | 2025-01-24 14:40 | P.PNPSI_ITS ---
Subjective Subjective Date of Service: 01/24/25 Reason For Visit: Anxiety, mood disorder, ASD Interim History: flat, able to engage logically. no complaints or requests. per staff, flat, withdrawn. eating well. taking meds. visible. slept 8 hours. Mental Status Exam Mental Status Exam Patient Appearance: Appropriate Patient Orientation: Person and Situation Level of Consciousness: Awake and Appropriate Patient Behavior: Guarded and Passive Mood Description: Withdrawn Affect Description: Constricted Patient Cognition Impaired: Yes Ability to Follow Directions: Good Speech Pattern: Clear Hallucinations: None Delusions: Not Present Thought Process: Distracted and Slowed Thinking Thought Content: positive for [place] and positive for Poverty of Content Judgement: Poor Diagnostics Vital Signs (24Hr): Vital Signs - 24 hr 01/23/25 20:00 01/24/25 09:07 Temperature 98.1 F 97.2 F Pulse Rate 78 79 Respiratory Rate 18 16 Blood Pressure 97/57 L 114/70 Pulse Oximetry 97 97 Oxygen Delivery Method Room Air Room Air BMI result Body Mass Index 27.1 Labs 10/28/24 09:10 01/21/25 08:03 Imaging Radiology Impressions: ITS Impressions Hip X-Ray 01/12/25 13:30 IMPRESSION: No evidence of fracture of the bilateral hips. Electronically signed by: Kaushal Soni MD 01/12/2025 01:54 PM EDT RP Cervical Spine CT 01/14/25 07:59 IMPRESSION: Multilevel cervical spondylosis without acute fracture or trauma-related listhesis. Fleischner guidelines were followed. Electronically signed by: Abe Griffin MD 01/14/2025 09:50 AM EDT RP Head CT 01/14/25 08:30 IMPRESSION: No acute intracranial abnormality. No fracture seen. Electronically signed by: Chidi Rodriguez MD 01/17/2025 01:08 PM EDT RP Hip/Pelvis X-Ray 01/14/25 09:10 IMPRESSION: No acute fracture or dislocation. Electronically signed by: Abe Griffin MD 01/14/2025 10:35 AM EDT RP Medications Medications Current Medications Acetaminophen (Acetaminophen 325 Mg Tablet) 650 mg PO Q6H PRN PRN Reason: Headache/Pain Mild Scale (1-3) Benztropine Mesylate (Benztropine Mesylate 1 Mg Tablet) 1 mg PO BEDTIME PRN PRN Reason: Extrapyramidal Effects Diazepam (Diazepam 10 Mg/2 Ml Cartridge) 5 mg IM TID PRN PRN Reason: PO refusal. HOLD FOR SEDATION Last Admin: 12/21/24 10:22 Dose: 5 mg Diazepam (Diazepam 2 Mg Tablet) 4 mg PO TID DESIRAE Last Admin: 01/24/25 14:20 Dose: 4 mg Empagliflozin (Empagliflozin 10 Mg Tablet) 10 mg PO DAILY DESIRAE Last Admin: 01/24/25 09:08 Dose: 10 mg Lisinopril (Lisinopril 20 Mg Tablet) 20 mg PO DAILY DESIRAE; Protocol Last Admin: 01/24/25 09:08 Dose: 20 mg Metformin HCl (Metformin Hcl Er 500 Mg Tab.Er.24h) 1,000 mg PO DAILY DESIRAE Last Admin: 01/24/25 09:08 Dose: 1,000 mg Mirtazapine (Mirtazapine 30 Mg Tablet) 30 mg PO BEDTIME DESIRAE Last Admin: 01/23/25 19:56 Dose: 30 mg Nicotine Polacrilex (Nicotine Polacrilex 2 Mg Gum) 4 mg BUCCAL Q2H PRN PRN Reason: Nicotine Cravings Olanzapine (Olanzapine 10 Mg Tablet) 20 mg PO BEDTIME DESIRAE Last Admin: 01/23/25 19:56 Dose: 20 mg Olanzapine (Olanzapine Odt 10 Mg Tab.Rapdis) 10 mg TRANSLINGU DAILY DESIRAE Last Admin: 01/24/25 09:09 Dose: 10 mg Olanzapine (Olanzapine 10 Mg Vial) 10 mg IM BID PRN PRN Reason: PO refusal Last Admin: 12/21/24 10:22 Dose: 10 mg Olanzapine (Olanzapine Odt 10 Mg Tab.Rapdis) 10 mg TRANSLINGU BID PRN PRN Reason: agitation Last Admin: 01/14/25 12:16 Dose: 10 mg Oxcarbazepine (Oxcarbazepine 300 Mg Tablet) 300 mg PO BEDTIME DESIRAE Last Admin: 01/23/25 19:56 Dose: 300 mg Primidone (Primidone 50 Mg Tablet) 25 mg PO BID DESIRAE Last Admin: 01/24/25 09:07 Dose: 25 mg Sertraline HCl (Sertraline Hcl 100 Mg Tablet) 100 mg PO BEDTIME DESIRAE Last Admin: 01/23/25 19:56 Dose: 100 mg Trazodone HCl (Trazodone Hcl 50 Mg Tablet) 50 mg PO BEDTIME PRN PRN Reason: Insomnia Allergies Allergies Allergy/AdvReac Type Severity Reaction Status Date / Time No Known Allergies Allergy Verified 10/14/24 18:14 [No Known Allergies*] Assessment & Plan Assessment & Plan (1) Mood disorder: Status: Acute Code(s): F39 - Unspecified mood [affective] disorder (2) Autism spectrum disorder: Status: Acute Code(s): F84.0 - Autistic disorder (3) Dementia: Status: Acute Code(s): F03.90 - Unspecified dementia, unspecified severity, without behavioral disturbance, psychotic disturbance, mood disturbance, and anxiety Plan Humza was admitted for safety and stabilization. His presentation is very similar to his last admission psychiatrically about a year ago and that is why his caregivers wanted to get ahead of things before he decompensated further. Current medications were reviewed and maintained. Contacts to be made with his treaters next week. 10/17: Continue current regimen and plans 10/19: Continue current tx plan and regime. 10/21: Memantine 5 mg daily- MCI, memory sx Abilify 2 mg daily-augment to antidepressants currently being used. 10/22 continue current tx plan -pt confused 10/23 Continue trials, regime and plan. 10/24: Continue regime and plan of care. 10/25 Abilify increased up to 5 mg. 10/26 keep on same treatment 10/27/24 continues with many complaints, no clear insight into self- 10/28 continue same treatment 10/29 increase Namenda to 5 mg p.o. b.i.d. and change Depakote to Depakene. Depakote level on 13/02 as per blood work of yesterday 10/30/24 - dc abilify inc olanzapine = continue depakene as he did take 5 capsules this am- prn olanzapine given - this afternoon for behaviors on unit- 10/31/24 wrote for liquid depakote option if refuses capsules, also got prn olanzapine for throwing self on floor 11/01 keep same treatment 11/02 increase Zyprexa to 20 mg p.o. q.h.s. 11/03 keep same treatment. 11/04 discontinue Depakote and start Trileptal 300 mg p.o. b.i.d.. Her healthcare proxy will bring a copy of that we are going to invoke it 11/06 increase olanzapine to 20mg po qhs and 10mg po daily. 11/07 continue tx. 12/04 continue tx. 12/05: no changes 12/06 continue tx. 12/12: continue plan of care 12/13: continue tx 12/19 continue current tx plan 12/25: appearing sedated, more of a falls risk, poorer ability to do ADLs. decrease trileptal dosing from 600 BID to 300 BID for now. 12/26: less sedated than yesterday, continue current mgmt, including 1:1, until attending can see pt in the morning. 12/30: continues less sedated. minimally interactive. continue current mgmt. 12/31: per HCP, not at baseline, over-sedated. begin valium taper. decrease valium 5 TID to 4 TID for now. per HCP and SW, HCP has been affirmed in court. IM back-up orders in place and to be enforced by nursing staff. no aggressive or agitated behaviors. 01/02: Continue current regimen and plans Plan 1. Continue with olanzapine 10 mg p.o. q.a.m. and 20 mg p.o. q.h.s., he refused p.o. he received olanzapine IM. 2. Continue with Valium 5 mg p.o. t.i.d. if he refuses he will get Valium IM. 3. We will encourage compliance. The patient had been noncompliant with sertraline, he remains dysphoric. 4. The patient has a healthcare proxy who was affirmed by court, and they want us to medicate him even if the patient does not want to be compliant. 5. At this moment the patient is slightly over-sedated with EPS but we will keep the same dose of antipsychotics since his violence has improved. 01/03/25 Continue plan of care Reassess treatment plan which includes IM medication patient has been much less aggressive than he has in the past Unclear discharge plan at this point 01/04/2025 Patient taking Valium and olanzapine regularly has IM prescribed if refuses intermittently taking medication for diabetes hypertension 01/05/25 Cont medicationhas been stabilizing try and d/c meds that are not esential simplify regimen 01/06/25 stop namenda monitor sugar / bp encourage med acceptance cont valium olanzapine 01/08/2025 Continue olanzapine Valium metformin try and taper and simplify medication as tolerated discharge planning monitor response to change in medication 01/09/25 Try and simplify med regimen d/c planning 01/11/2025 Patient generally more cooperative not agitated generally monitor blood sugar and blood pressure intermittently refuses some doses of metformin 01/12/25 Pt seen later in day seemed stable flat some balance problems noted lowwer trileptal and primidone ck ortho vs dailypt consult for balance 01/13/2025 Patient improving less reactive has not been aggressive more cooperative with treatment and medication. Discharge planning 01/14: fell this morning, per head/c-spine CT and pelvic XR, no osseus injuries. pt appears as at recent mental status. no complaints or requests other than for wheelchair. pt will have 1:1 for ambulation for now. continue current psychopharm mgmt. 01/15: Continue current management and treatment plan. 01/16: continue current management and treatment plan. 01/17 keep same treatment. 01/18 keep same treatment 01/19 keep same treatment 01/20 keep same treatment 01/21 keep same treatment 01/22: calm, cooperative, flat. no questions or complaints. stable presentation. continue current mgmt. 01/23: no change, continue current mgmt. 01/24: stable. continue current mgmt. reps from [facility] coming to [facility] pt for placement today. Reason for continued inpatient stay Substantial Risk for: inability to function and rapid decompensation Time Spent With Patient Time: Total time managing care of this patient today ____ minutes.
[2025-01-24 20:00] VITALS: BP 101/66; PULSE 92; RESP 16; TEMP 36.5; O2SAT 96
[2025-01-24] MEDS: OXcarbazepine 300 MG TABLET PO (20:26)
[2025-01-24] MEDS: OLANZapine 10 MG TABLET 20 MG PO (20:26)
[2025-01-24] MEDS: Sertraline HCL 100 MG TABLET PO (20:26)
[2025-01-24] MEDS: Mirtazapine 30 MG TABLET PO (20:27)
[2025-01-25 08:00] VITALS: BP 110/73; PULSE 80; RESP 16; TEMP 36.6; O2SAT 100
[2025-01-25] MEDS: Empagliflozin 10 MG TABLET PO (08:32)
[2025-01-25] MEDS: Primidone 50 MG TABLET 25 MG PO ×2 (08:32→19:41)
[2025-01-25] MEDS: diazePAM 2 MG TABLET 4 MG PO ×3 (08:32→19:41)
[2025-01-25] MEDS: metFORMIN HCl ER 500 MG TAB.ER.24H 1000 MG PO (08:33)
[2025-01-25] MEDS: lisinopriL 20 MG TABLET PO (08:33)
[2025-01-25] MEDS: OLANZapine ODT 10 MG TAB.RAPDIS TRANSLINGU (08:33)
[2025-01-25 19:39] VITALS: BP 121/79; PULSE 79; RESP 16; TEMP 36; O2SAT 95
[2025-01-25] MEDS: OXcarbazepine 300 MG TABLET PO (19:40)
[2025-01-25] MEDS: Sertraline HCL 100 MG TABLET PO (19:40)
[2025-01-25] MEDS: OLANZapine 10 MG TABLET 20 MG PO (19:40)
[2025-01-25] MEDS: Mirtazapine 30 MG TABLET PO (19:41)
[2025-01-26 08:08] VITALS: BP 126/72; PULSE 77; RESP 20; TEMP 36.8; O2SAT 100
[2025-01-26] MEDS: Primidone 50 MG TABLET 25 MG PO ×2 (08:10→20:31)
[2025-01-26] MEDS: Empagliflozin 10 MG TABLET PO (08:10)
[2025-01-26] MEDS: diazePAM 2 MG TABLET 4 MG PO ×3 (08:11→20:30)
[2025-01-26] MEDS: metFORMIN HCl ER 500 MG TAB.ER.24H 1000 MG PO (08:11)
[2025-01-26] MEDS: OLANZapine ODT 10 MG TAB.RAPDIS TRANSLINGU (08:11)
[2025-01-26] MEDS: lisinopriL 20 MG TABLET PO (08:11)
--- NOTE | 2025-01-26 09:20 | P.PNPSI_ITS ---
Subjective Subjective Date of Service: 01/25/25 Reason For Visit: Anxiety, mood disorder, ASD Subjective Notes: Conditional Voluntary Interim History: Pt seen in psychiatric follow-up, chart reviewed case reviewed in treatment team. Patient in behavioral control in the milieu not overly combative her agitated. Vital signs unremarkable Side effects from medications: No Mental Status Exam Mental Status Exam Patient Appearance: Appropriate Patient Orientation: Person and Situation Level of Consciousness: Awake and Appropriate Patient Behavior: Guarded and Passive Mood Description: Withdrawn and Blunted Affect Description: Constricted Patient Cognition Impaired: Yes Ability to Follow Directions: Good Speech Pattern: Clear Hallucinations: None Delusions: Not Present Thought Process: Distracted and Slowed Thinking Thought Content: positive for [place] and positive for Poverty of Content Judgement: Fair Judgement and Insight: Not overly aggressive not verbalizing thoughts of harm to himself or others Diagnostics Vital Signs (24Hr): Vital Signs - 24 hr 01/25/25 19:39 01/26/25 08:08 Temperature 96.8 F 98.3 F Pulse Rate 79 77 Respiratory Rate 16 20 Blood Pressure 121/79 126/72 Pulse Oximetry 95 100 Oxygen Delivery Method Room Air Room Air BMI result Body Mass Index 27.1 Labs 10/28/24 09:10 01/21/25 08:03 Imaging Radiology Impressions: ITS Impressions Hip X-Ray 01/12/25 13:30 IMPRESSION: No evidence of fracture of the bilateral hips. Electronically signed by: Kaushal Soni MD 01/12/2025 01:54 PM EDT RP Cervical Spine CT 01/14/25 07:59 IMPRESSION: Multilevel cervical spondylosis without acute fracture or trauma-related listhesis. Fleischner guidelines were followed. Electronically signed by: Abe Griffin MD 01/14/2025 09:50 AM EDT RP Head CT 01/14/25 08:30 IMPRESSION: No acute intracranial abnormality. No fracture seen. Electronically signed by: Chidi Rodriguez MD 01/17/2025 01:08 PM EDT RP Hip/Pelvis X-Ray 01/14/25 09:10 IMPRESSION: No acute fracture or dislocation. Electronically signed by: Abe Griffin MD 01/14/2025 10:35 AM EDT RP Medications Medications Current Medications Acetaminophen (Acetaminophen 325 Mg Tablet) 650 mg PO Q6H PRN PRN Reason: pain scale (1-10) Benztropine Mesylate (Benztropine Mesylate 1 Mg Tablet) 1 mg PO BEDTIME PRN PRN Reason: Extrapyramidal Effects Diazepam (Diazepam 10 Mg/2 Ml Cartridge) 5 mg IM TID PRN PRN Reason: PO refusal. HOLD FOR SEDATION Last Admin: 12/21/24 10:22 Dose: 5 mg Diazepam (Diazepam 2 Mg Tablet) 4 mg PO TID DESIRAE Last Admin: 01/26/25 08:11 Dose: 4 mg Empagliflozin (Empagliflozin 10 Mg Tablet) 10 mg PO DAILY DESIRAE Last Admin: 01/26/25 08:10 Dose: 10 mg Lisinopril (Lisinopril 20 Mg Tablet) 20 mg PO DAILY [facility]; Protocol Last Admin: 01/26/25 08:11 Dose: 20 mg Metformin HCl (Metformin Hcl Er 500 Mg Tab.Er.24h) 1,000 mg PO DAILY DESIRAE Last Admin: 01/26/25 08:11 Dose: 1,000 mg Mirtazapine (Mirtazapine 30 Mg Tablet) 30 mg PO BEDTIME DESIRAE Last Admin: 01/25/25 19:41 Dose: 30 mg Nicotine Polacrilex (Nicotine Polacrilex 2 Mg Gum) 4 mg BUCCAL Q2H PRN PRN Reason: Nicotine Cravings Olanzapine (Olanzapine 10 Mg Tablet) 20 mg PO BEDTIME DESIRAE Last Admin: 01/25/25 19:40 Dose: 20 mg Olanzapine (Olanzapine Odt 10 Mg Tab.Rapdis) 10 mg TRANSLINGU DAILY DESIRAE Last Admin: 01/26/25 08:11 Dose: 10 mg Olanzapine (Olanzapine 10 Mg Vial) 10 mg IM BID PRN PRN Reason: PO refusal Last Admin: 12/21/24 10:22 Dose: 10 mg Olanzapine (Olanzapine Odt 10 Mg Tab.Rapdis) 10 mg TRANSLINGU BID PRN PRN Reason: agitation Last Admin: 01/14/25 12:16 Dose: 10 mg Oxcarbazepine (Oxcarbazepine 300 Mg Tablet) 300 mg PO BEDTIME DESIRAE Last Admin: 01/25/25 19:40 Dose: 300 mg Primidone (Primidone 50 Mg Tablet) 25 mg PO BID DESIRAE Last Admin: 01/26/25 08:10 Dose: 25 mg Sertraline HCl (Sertraline Hcl 100 Mg Tablet) 100 mg PO BEDTIME DESIRAE Last Admin: 01/25/25 19:40 Dose: 100 mg Trazodone HCl (Trazodone Hcl 50 Mg Tablet) 50 mg PO BEDTIME PRN PRN Reason: Insomnia Allergies Allergies Allergy/AdvReac Type Severity Reaction Status Date / Time No Known Allergies Allergy Verified 10/14/24 18:14 [No Known Allergies*] Assessment & Plan Assessment & Plan (1) Mood disorder: Status: Acute Code(s): F39 - Unspecified mood [affective] disorder (2) Autism spectrum disorder: Status: Acute Code(s): F84.0 - Autistic disorder (3) Dementia: Status: Acute Code(s): F03.90 - Unspecified dementia, unspecified severity, without behavioral disturbance, psychotic disturbance, mood disturbance, and anxiety Plan Humza was admitted for safety and stabilization. His presentation is very similar to his last admission psychiatrically about a year ago and that is why his caregivers wanted to get ahead of things before he decompensated further. Current medications were reviewed and maintained. Contacts to be made with his treaters next week. 10/17: Continue current regimen and plans 10/19: Continue current tx plan and regime. 10/21: Memantine 5 mg daily- [facility], memory sx Abilify 2 mg daily-augment to antidepressants currently being used. 10/22 continue current tx plan -pt confused 10/23 Continue trials, regime and plan. 10/24: Continue regime and plan of care. 10/25 Abilify increased up to 5 mg. 10/26 keep on same treatment 10/27/24 continues with many complaints, no clear insight into self- 10/28 continue same treatment 10/29 increase Namenda to 5 mg p.o. b.i.d. and change Depakote to Depakene. Depakote level on 13/02 as per blood work of yesterday 10/30/24 - ut [facility] olanzapine = continue depakene as he did take 5 capsules this am- prn olanzapine given - this afternoon for behaviors on unit- 10/31/24 wrote for liquid depakote option if refuses capsules, also got prn olanzapine for throwing self on floor 11/01 keep same treatment 11/02 increase Zyprexa to 20 mg p.o. q.h.s. 11/03 keep same treatment. 11/04 discontinue Depakote and start Trileptal 300 mg p.o. b.i.d.. Her healthcare proxy will bring a copy of that we are going to invoke it 11/06 increase olanzapine to 20mg po qhs and 10mg po daily. 11/07 continue tx. 12/04 continue tx. 12/05: no changes 12/06 continue tx. 12/12: continue plan of care 12/13: continue tx 12/19 continue current tx plan 12/25: appearing sedated, more of a falls risk, poorer ability to do ADLs. decrease trileptal dosing from 600 BID to 300 BID for now. 12/26: less sedated than yesterday, continue current mgmt, including 1:1, until attending can see pt in the morning. 12/30: continues less sedated. minimally interactive. continue current mgmt. 12/31: per HCP, not at baseline, over-sedated. begin valium taper. decrease valium 5 TID to 4 TID for now. per HCP and SW, HCP has been affirmed in court. IM back-up orders in place and to be enforced by nursing staff. no aggressive or agitated behaviors. 01/02: Continue current regimen and plans Plan 1. Continue with olanzapine 10 mg p.o. q.a.m. and 20 mg p.o. q.h.s., he refused p.o. he received olanzapine IM. 2. Continue with Valium 5 mg p.o. t.i.d. if he refuses he will get Valium IM. 3. We will encourage compliance. The patient had been noncompliant with sertraline, he remains dysphoric. 4. The patient has a healthcare proxy who was affirmed by court, and they want us to medicate him even if the patient does not want to be compliant. 5. At this moment the patient is slightly over-sedated with EPS but we will keep the same dose of antipsychotics since his violence has improved. 01/03/25 Continue plan of care Reassess treatment plan which includes IM medication patient has been much less aggressive than he has in the past Unclear discharge plan at this point 01/04/2025 Patient taking Valium and olanzapine regularly has IM prescribed if refuses intermittently taking medication for diabetes hypertension 01/05/25 Cont medicationhas been stabilizing try and d/c meds that are not esential simplify regimen 01/06/25 stop namenda monitor sugar / bp encourage med acceptance cont valium olanzapine 01/08/2025 Continue olanzapine Valium metformin try and taper and simplify medication as tolerated discharge planning monitor response to change in medication 01/09/25 Try and simplify med regimen d/c planning 01/11/2025 Patient generally more cooperative not agitated generally monitor blood sugar and blood pressure intermittently refuses some doses of metformin 01/12/25 Pt seen later in day seemed stable flat some balance problems noted lowwer trileptal and primidone ck ortho vs dailypt consult for balance 01/13/2025 Patient improving less reactive has not been aggressive more cooperative with treatment and medication. Discharge planning 01/14: fell this morning, per head/c-spine CT and pelvic XR, no osseus injuries. pt appears as at recent mental status. no complaints or requests other than for wheelchair. pt will have 1:1 for ambulation for now. continue current psychopharm mgmt. 01/15: Continue current management and treatment plan. 01/16: continue current management and treatment plan. 01/17 keep same treatment. 01/18 keep same treatment 01/19 keep same treatment 01/20 keep same treatment 01/21 keep same treatment 01/22: calm, cooperative, flat. no questions or complaints. stable presentation. continue current mgmt. 01/23: no change, continue current mgmt. 01/24: stable. continue current mgmt. reps from [facility] coming to [facility] pt for placement today. 01/25/2025 Patient in behavioral control vital signs stable generally accepting treatment continue discharge planning Reason for continued inpatient stay Substantial Risk for: inability to function and rapid decompensation Time Spent With Patient Time: Total time managing care of this patient today ____ minutes.
--- NOTE | 2025-01-26 13:58 | HO.PSYCHPN ---
Subjective Subjective Date of Service: 01/26/25 Reason For Visit: Anxiety, mood disorder, ASD Subjective Notes: Conditional Voluntary Healthcare Proxy: Yes Interim History: Patient has been calm cooperative being well spends time out of his room mood somewhat plan not combative or agitated Side effects from medications: No Mental Status Exam Mental Status Exam Patient Appearance: Appropriate Patient Orientation: Person and Situation Level of Consciousness: Awake and Appropriate Patient Behavior: Guarded and Passive Mood Description: Withdrawn and Blunted Affect Description: Constricted Patient Cognition Impaired: Yes Ability to Follow Directions: Good Speech Pattern: Clear Hallucinations: None Delusions: Not Present Thought Process: Distracted and Slowed Thinking Thought Content: positive for [place] and positive for Poverty of Content Judgement: Fair Judgement and Insight: Not overly aggressive not verbalizing thoughts of harm to himself or others Diagnostics Vital Signs (24Hr): Vital Signs - 24 hr 01/25/25 19:39 01/26/25 08:08 Temperature 96.8 F 98.3 F Pulse Rate 79 77 Respiratory Rate 16 20 Blood Pressure 121/79 126/72 Pulse Oximetry 95 100 Oxygen Delivery Method Room Air Room Air BMI result Body Mass Index 27.1 Labs 10/28/24 09:10 01/21/25 08:03 Imaging Radiology Impressions: ITS Impressions Hip X-Ray 01/12/25 13:30 IMPRESSION: No evidence of fracture of the bilateral hips. Electronically signed by: Kaushal Soni MD 01/12/2025 01:54 PM EDT RP Cervical Spine CT 01/14/25 07:59 IMPRESSION: Multilevel cervical spondylosis without acute fracture or trauma-related listhesis. Fleischner guidelines were followed. Electronically signed by: Abe Griffin MD 01/14/2025 09:50 AM EDT RP Head CT 01/14/25 08:30 IMPRESSION: No acute intracranial abnormality. No fracture seen. Electronically signed by: Chidi Rodriguez MD 01/17/2025 01:08 PM EDT RP Hip/Pelvis X-Ray 01/14/25 09:10 IMPRESSION: No acute fracture or dislocation. Electronically signed by: Abe Griffin MD 01/14/2025 10:35 AM EDT RP Medications Medications Current Medications Acetaminophen (Acetaminophen 325 Mg Tablet) 650 mg PO Q6H PRN PRN Reason: pain scale (1-10) Benztropine Mesylate (Benztropine Mesylate 1 Mg Tablet) 1 mg PO BEDTIME PRN PRN Reason: Extrapyramidal Effects Diazepam (Diazepam 10 Mg/2 Ml Cartridge) 5 mg IM TID PRN PRN Reason: PO refusal. HOLD FOR SEDATION Last Admin: 12/21/24 10:22 Dose: 5 mg Diazepam (Diazepam 2 Mg Tablet) 4 mg PO TID DESIRAE Last Admin: 01/26/25 08:11 Dose: 4 mg Empagliflozin (Empagliflozin 10 Mg Tablet) 10 mg PO DAILY DESIRAE Last Admin: 01/26/25 08:10 Dose: 10 mg Lisinopril (Lisinopril 20 Mg Tablet) 20 mg PO DAILY [facility]; Protocol Last Admin: 01/26/25 08:11 Dose: 20 mg Metformin HCl (Metformin Hcl Er 500 Mg Tab.Er.24h) 1,000 mg PO DAILY DESIRAE Last Admin: 01/26/25 08:11 Dose: 1,000 mg Mirtazapine (Mirtazapine 30 Mg Tablet) 30 mg PO BEDTIME DESIRAE Last Admin: 01/25/25 19:41 Dose: 30 mg Nicotine Polacrilex (Nicotine Polacrilex 2 Mg Gum) 4 mg BUCCAL Q2H PRN PRN Reason: Nicotine Cravings Olanzapine (Olanzapine 10 Mg Tablet) 20 mg PO BEDTIME DESIRAE Last Admin: 01/25/25 19:40 Dose: 20 mg Olanzapine (Olanzapine Odt 10 Mg Tab.Rapdis) 10 mg TRANSLINGU DAILY [facility] Last Admin: 01/26/25 08:11 Dose: 10 mg Olanzapine (Olanzapine 10 Mg Vial) 10 mg IM BID PRN PRN Reason: PO refusal Last Admin: 12/21/24 10:22 Dose: 10 mg Olanzapine (Olanzapine Odt 10 Mg Tab.Rapdis) 10 mg TRANSLINGU BID PRN PRN Reason: agitation Last Admin: 01/14/25 12:16 Dose: 10 mg Oxcarbazepine (Oxcarbazepine 300 Mg Tablet) 300 mg PO BEDTIME DESIRAE Last Admin: 01/25/25 19:40 Dose: 300 mg Primidone (Primidone 50 Mg Tablet) 25 mg PO BID DESIRAE Last Admin: 01/26/25 08:10 Dose: 25 mg Sertraline HCl (Sertraline Hcl 100 Mg Tablet) 100 mg PO BEDTIME DESIRAE Last Admin: 01/25/25 19:40 Dose: 100 mg Trazodone HCl (Trazodone Hcl 50 Mg Tablet) 50 mg PO BEDTIME PRN PRN Reason: Insomnia Allergies Allergies Allergy/AdvReac Type Severity Reaction Status Date / Time No Known Allergies Allergy Verified 10/14/24 18:14 [No Known Allergies*] Assessment & Plan Assessment & Plan (1) Mood disorder: Status: Acute Code(s): F39 - Unspecified mood [affective] disorder (2) Autism spectrum disorder: Status: Acute Code(s): F84.0 - Autistic disorder (3) Dementia: Status: Acute Code(s): F03.90 - Unspecified dementia, unspecified severity, without behavioral disturbance, psychotic disturbance, mood disturbance, and anxiety Plan Humza was admitted for safety and stabilization. His presentation is very similar to his last admission psychiatrically about a year ago and that is why his caregivers wanted to get ahead of things before he decompensated further. Current medications were reviewed and maintained. Contacts to be made with his treaters next week. 10/17: Continue current regimen and plans 10/19: Continue current tx plan and regime. 10/21: Memantine 5 mg daily- [facility], memory sx Abilify 2 mg daily-augment to antidepressants currently being used. 10/22 continue current tx plan -pt confused 10/23 Continue trials, regime and plan. 10/24: Continue regime and plan of care. 10/25 Abilify increased up to 5 mg. 10/26 keep on same treatment 10/27/24 continues with many complaints, no clear insight into self- 10/28 continue same treatment 10/29 increase Namenda to 5 mg p.o. b.i.d. and change Depakote to Depakene. Depakote level on 13/02 as per blood work of yesterday 10/30/24 - in [facility] olanzapine = continue depakene as he did take 5 capsules this am- prn olanzapine given - this afternoon for behaviors on unit- 10/31/24 wrote for liquid depakote option if refuses capsules, also got prn olanzapine for throwing self on floor 11/01 keep same treatment 11/02 increase Zyprexa to 20 mg p.o. q.h.s. 11/03 keep same treatment. 11/04 discontinue Depakote and start Trileptal 300 mg p.o. b.i.d.. Her healthcare proxy will bring a copy of that we are going to invoke it 11/06 increase olanzapine to 20mg po qhs and 10mg po daily. 11/07 continue tx. 12/04 continue tx. 12/05: no changes 12/06 continue tx. 12/12: continue plan of care 12/13: continue tx 12/19 continue current tx plan 12/25: appearing sedated, more of a falls risk, poorer ability to do ADLs. decrease trileptal dosing from 600 BID to 300 BID for now. 12/26: less sedated than yesterday, continue current mgmt, including 1:1, until attending can see pt in the morning. 12/30: continues less sedated. minimally interactive. continue current mgmt. 12/31: per HCP, not at baseline, over-sedated. begin valium taper. decrease valium 5 TID to 4 TID for now. per HCP and SW, HCP has been affirmed in court. IM back-up orders in place and to be enforced by nursing staff. no aggressive or agitated behaviors. 01/02: Continue current regimen and plans Plan 1. Continue with olanzapine 10 mg p.o. q.a.m. and 20 mg p.o. q.h.s., he refused p.o. he received olanzapine IM. 2. Continue with Valium 5 mg p.o. t.i.d. if he refuses he will get Valium IM. 3. We will encourage compliance. The patient had been noncompliant with sertraline, he remains dysphoric. 4. The patient has a healthcare proxy who was affirmed by court, and they want us to medicate him even if the patient does not want to be compliant. 5. At this moment the patient is slightly over-sedated with EPS but we will keep the same dose of antipsychotics since his violence has improved. 01/03/25 Continue plan of care Reassess treatment plan which includes IM medication patient has been much less aggressive than he has in the past Unclear discharge plan at this point 01/04/2025 Patient taking Valium and olanzapine regularly has IM prescribed if refuses intermittently taking medication for diabetes hypertension 01/05/25 Cont medicationhas been stabilizing try and d/c meds that are not esential simplify regimen 01/06/25 stop namenda monitor sugar / bp encourage med acceptance cont valium olanzapine 01/08/2025 Continue olanzapine Valium metformin try and taper and simplify medication as tolerated discharge planning monitor response to change in medication 01/09/25 Try and simplify med regimen d/c planning 01/11/2025 Patient generally more cooperative not agitated generally monitor blood sugar and blood pressure intermittently refuses some doses of metformin 01/12/25 Pt seen later in day seemed stable flat some balance problems noted lowwer trileptal and primidone ck ortho vs dailypt consult for balance 01/13/2025 Patient improving less reactive has not been aggressive more cooperative with treatment and medication. Discharge planning 01/14: fell this morning, per head/c-spine CT and pelvic XR, no osseus injuries. pt appears as at recent mental status. no complaints or requests other than for wheelchair. pt will have 1:1 for ambulation for now. continue current psychopharm mgmt. 01/15: Continue current management and treatment plan. 01/16: continue current management and treatment plan. 01/17 keep same treatment. 01/18 keep same treatment 01/19 keep same treatment 01/20 keep same treatment 01/21 keep same treatment 01/22: calm, cooperative, flat. no questions or complaints. stable presentation. continue current mgmt. 01/23: no change, continue current mgmt. 01/24: stable. continue current mgmt. reps from [facility] coming to [facility] pt for placement today. 01/25/2025 Patient in behavioral control vital signs stable generally accepting treatment continue discharge planning 01/26/2025 Patient generally cooperative seen in the milieu no aggression suicidality or her problematic behavior. Discharge planning strongly urged transition Reason for continued inpatient stay Substantial Risk for: rapid decompensation and med/psych decompensation Time Spent With Patient Time: Total time managing care of this patient today ____ minutes.
[2025-01-26 20:00] VITALS: BP 109/56; PULSE 63; RESP 16; TEMP 31; O2SAT 99
[2025-01-26] MEDS: OLANZapine 10 MG TABLET 20 MG PO (20:30)
[2025-01-26] MEDS: Sertraline HCL 100 MG TABLET PO (20:31)
[2025-01-26] MEDS: Mirtazapine 30 MG TABLET PO (20:31)
[2025-01-26] MEDS: OXcarbazepine 300 MG TABLET PO (20:31)
[2025-01-27 08:33] VITALS: BP 123/88; PULSE 84; RESP 20; TEMP 36; O2SAT 97
[2025-01-27] MEDS: Empagliflozin 10 MG TABLET PO (08:34)
[2025-01-27] MEDS: Primidone 50 MG TABLET 25 MG PO ×2 (08:34→20:52)
[2025-01-27] MEDS: OLANZapine ODT 10 MG TAB.RAPDIS TRANSLINGU (08:34)
[2025-01-27] MEDS: metFORMIN HCl ER 500 MG TAB.ER.24H 1000 MG PO (08:34)
[2025-01-27] MEDS: lisinopriL 20 MG TABLET PO (08:34)
[2025-01-27] MEDS: diazePAM 2 MG TABLET 4 MG PO ×3 (08:34→20:52)
[2025-01-27 10:43] VITALS: BMI 27.5
[2025-01-27 20:00] VITALS: BP 110/66; PULSE 77; RESP 16; TEMP 36.4; O2SAT 98
[2025-01-27] MEDS: OLANZapine 10 MG TABLET 20 MG PO (20:52)
[2025-01-27] MEDS: Sertraline HCL 100 MG TABLET PO (20:52)
[2025-01-27] MEDS: Mirtazapine 30 MG TABLET PO (20:52)
[2025-01-27] MEDS: OXcarbazepine 300 MG TABLET PO (20:52)
--- NOTE | 2025-01-27 22:42 | P.PNPSI_ITS ---
Subjective Subjective Date of Service: 01/27/25 Reason For Visit: Anxiety, mood disorder, ASD Interim History: Patient case report treatment planning chart reviewed patient seen. Patient continues out in the milieu no Mental Status Exam Mental Status Exam Patient Appearance: Appropriate Patient Orientation: Person and Situation Level of Consciousness: Awake and Appropriate Patient Behavior: Guarded and Passive Mood Description: Withdrawn and Blunted Affect Description: Constricted Patient Cognition Impaired: Yes Ability to Follow Directions: Good Speech Pattern: Clear Hallucinations: None Delusions: Not Present Thought Process: Distracted and Slowed Thinking Thought Content: positive for [place] and positive for Poverty of Content Judgement and Insight: Not noted to be aggressive when seen not verbalizing thoughts of harm to himself or others Diagnostics Vital Signs (24Hr): Vital Signs - 24 hr 01/27/25 08:33 01/27/25 20:00 Temperature 96.8 F 97.6 F Pulse Rate 84 77 Respiratory Rate 20 16 Blood Pressure 123/88 110/66 Pulse Oximetry 97 98 Oxygen Delivery Method Room Air Room Air BMI result Body Mass Index 27.5 Labs 10/28/24 09:10 01/21/25 08:03 Imaging Radiology Impressions: ITS Impressions Hip X-Ray 01/12/25 13:30 IMPRESSION: No evidence of fracture of the bilateral hips. Electronically signed by: Kaushal Soni MD 01/12/2025 01:54 PM EDT RP Cervical Spine CT 01/14/25 07:59 IMPRESSION: Multilevel cervical spondylosis without acute fracture or trauma-related listhesis. Fleischner guidelines were followed. Electronically signed by: Abe Griffin MD 01/14/2025 09:50 AM EDT RP Head CT 01/14/25 08:30 IMPRESSION: No acute intracranial abnormality. No fracture seen. Electronically signed by: Chidi Rodriguez MD 01/17/2025 01:08 PM EDT RP Hip/Pelvis X-Ray 01/14/25 09:10 IMPRESSION: No acute fracture or dislocation. Electronically signed by: Abe Griffin MD 01/14/2025 10:35 AM EDT RP Medications Medications Current Medications Acetaminophen (Acetaminophen 325 Mg Tablet) 650 mg PO Q6H PRN PRN Reason: pain scale (1-10) Benztropine Mesylate (Benztropine Mesylate 1 Mg Tablet) 1 mg PO BEDTIME PRN PRN Reason: Extrapyramidal Effects Diazepam (Diazepam 10 Mg/2 Ml Cartridge) 5 mg IM TID PRN PRN Reason: PO refusal. HOLD FOR SEDATION Last Admin: 12/21/24 10:22 Dose: 5 mg Diazepam (Diazepam 2 Mg Tablet) 4 mg PO TID DESIRAE Last Admin: 01/27/25 20:52 Dose: 4 mg Empagliflozin (Empagliflozin 10 Mg Tablet) 10 mg PO DAILY DESIRAE Last Admin: 01/27/25 08:34 Dose: 10 mg Lisinopril (Lisinopril 20 Mg Tablet) 20 mg PO DAILY [facility]; Protocol Last Admin: 01/27/25 08:34 Dose: 20 mg Metformin HCl (Metformin Hcl Er 500 Mg Tab.Er.24h) 1,000 mg PO DAILY DESIRAE Last Admin: 01/27/25 08:34 Dose: 1,000 mg Mirtazapine (Mirtazapine 30 Mg Tablet) 30 mg PO BEDTIME DESIRAE Last Admin: 01/27/25 20:52 Dose: 30 mg Nicotine Polacrilex (Nicotine Polacrilex 2 Mg Gum) 4 mg BUCCAL Q2H PRN PRN Reason: Nicotine Cravings Olanzapine (Olanzapine 10 Mg Tablet) 20 mg PO BEDTIME DESIRAE Last Admin: 01/27/25 20:52 Dose: 20 mg Olanzapine (Olanzapine Odt 10 Mg Tab.Rapdis) 10 mg TRANSLINGU DAILY DESIRAE Last Admin: 01/27/25 08:34 Dose: 10 mg Olanzapine (Olanzapine 10 Mg Vial) 10 mg IM BID PRN PRN Reason: PO refusal Last Admin: 12/21/24 10:22 Dose: 10 mg Olanzapine (Olanzapine Odt 10 Mg Tab.Rapdis) 10 mg TRANSLINGU BID PRN PRN Reason: agitation Last Admin: 01/14/25 12:16 Dose: 10 mg Oxcarbazepine (Oxcarbazepine 300 Mg Tablet) 300 mg PO BEDTIME DESIRAE Last Admin: 01/27/25 20:52 Dose: 300 mg Primidone (Primidone 50 Mg Tablet) 25 mg PO BID DESIRAE Last Admin: 01/27/25 20:52 Dose: 25 mg Sertraline HCl (Sertraline Hcl 100 Mg Tablet) 100 mg PO BEDTIME DESIRAE Last Admin: 01/27/25 20:52 Dose: 100 mg Trazodone HCl (Trazodone Hcl 50 Mg Tablet) 50 mg PO BEDTIME PRN PRN Reason: Insomnia Allergies Allergies Allergy/AdvReac Type Severity Reaction Status Date / Time No Known Allergies Allergy Verified 10/14/24 18:14 [No Known Allergies*] Assessment & Plan Assessment & Plan (1) Mood disorder: Status: Acute Code(s): F39 - Unspecified mood [affective] disorder (2) Autism spectrum disorder: Status: Acute Code(s): F84.0 - Autistic disorder (3) Dementia: Status: Acute Code(s): F03.90 - Unspecified dementia, unspecified severity, without behavioral disturbance, psychotic disturbance, mood disturbance, and anxiety Plan Humza was admitted for safety and stabilization. His presentation is very similar to his last admission psychiatrically about a year ago and that is why his caregivers wanted to get ahead of things before he decompensated further. Current medications were reviewed and maintained. Contacts to be made with his treaters next week. 10/17: Continue current regimen and plans 10/19: Continue current tx plan and regime. 10/21: Memantine 5 mg daily- MCI, memory sx Abilify 2 mg daily-augment to antidepressants currently being used. 10/22 continue current tx plan -pt confused 10/23 Continue trials, regime and plan. 10/24: Continue regime and plan of care. 10/25 Abilify increased up to 5 mg. 10/26 keep on same treatment 10/27/24 continues with many complaints, no clear insight into self- 10/28 continue same treatment 10/29 increase Namenda to 5 mg p.o. b.i.d. and change Depakote to Depakene. Depakote level on 13/02 as per blood work of yesterday 10/30/24 - ks abilify inc olanzapine = continue depakene as he did take 5 capsules this am- prn olanzapine given - this afternoon for behaviors on unit- 10/31/24 wrote for liquid depakote option if refuses capsules, also got prn olanzapine for throwing self on floor 11/01 keep same treatment 11/02 increase Zyprexa to 20 mg p.o. q.h.s. 11/03 keep same treatment. 11/04 discontinue Depakote and start Trileptal 300 mg p.o. b.i.d.. Her healthcare proxy will bring a copy of that we are going to invoke it 11/06 increase olanzapine to 20mg po qhs and 10mg po daily. 11/07 continue tx. 12/04 continue tx. 12/05: no changes 12/06 continue tx. 12/12: continue plan of care 12/13: continue tx 12/19 continue current tx plan 12/25: appearing sedated, more of a falls risk, poorer ability to do ADLs. decrease trileptal dosing from 600 BID to 300 BID for now. 12/26: less sedated than yesterday, continue current mgmt, including 1:1, until attending can see pt in the morning. 12/30: continues less sedated. minimally interactive. continue current mgmt. 12/31: per HCP, not at baseline, over-sedated. begin valium taper. decrease valium 5 TID to 4 TID for now. per HCP and SW, HCP has been affirmed in court. IM back-up orders in place and to be enforced by nursing staff. no aggressive or agitated behaviors. 01/02: Continue current regimen and plans Plan 1. Continue with olanzapine 10 mg p.o. q.a.m. and 20 mg p.o. q.h.s., he refused p.o. he received olanzapine IM. 2. Continue with Valium 5 mg p.o. t.i.d. if he refuses he will get Valium IM. 3. We will encourage compliance. The patient had been noncompliant with sertraline, he remains dysphoric. 4. The patient has a healthcare proxy who was affirmed by court, and they want us to medicate him even if the patient does not want to be compliant. 5. At this moment the patient is slightly over-sedated with EPS but we will keep the same dose of antipsychotics since his violence has improved. 01/03/25 Continue plan of care Reassess treatment plan which includes IM medication patient has been much less aggressive than he has in the past Unclear discharge plan at this point 01/04/2025 Patient taking Valium and olanzapine regularly has IM prescribed if refuses intermittently taking medication for diabetes hypertension 01/05/25 Cont medicationhas been stabilizing try and d/c meds that are not esential simplify regimen 01/06/25 stop namenda monitor sugar / bp encourage med acceptance cont valium olanzapine 01/08/2025 Continue olanzapine Valium metformin try and taper and simplify medication as tolerated discharge planning monitor response to change in medication 01/09/25 Try and simplify med regimen d/c planning 01/11/2025 Patient generally more cooperative not agitated generally monitor blood sugar and blood pressure intermittently refuses some doses of metformin 01/12/25 Pt seen later in day seemed stable flat some balance problems noted lowwer trileptal and primidone ck ortho vs dailypt consult for balance 01/13/2025 Patient improving less reactive has not been aggressive more cooperative with treatment and medication. Discharge planning 01/14: fell this morning, per head/c-spine CT and pelvic XR, no osseus injuries. pt appears as at recent mental status. no complaints or requests other than for wheelchair. pt will have 1:1 for ambulation for now. continue current psychopharm mgmt. 01/15: Continue current management and treatment plan. 01/16: continue current management and treatment plan. 01/17 keep same treatment. 01/18 keep same treatment 01/19 keep same treatment 01/20 keep same treatment 01/21 keep same treatment 01/22: calm, cooperative, flat. no questions or complaints. stable presentation. continue current mgmt. 01/23: no change, continue current mgmt. 01/24: stable. continue current mgmt. reps from [facility] coming to [facility] pt for placement today. 01/25/2025 Patient in behavioral control vital signs stable generally accepting treatment continue discharge planning 01/26/2025 Patient generally cooperative seen in the milieu no aggression suicidality or her problematic behavior. Discharge planning strongly urged transition 01/27/2025 Patient continues to be generally stabilizing not combative agitated or threatening has remained generally calm seems safe for discharge planning much improved over time Reason for continued inpatient stay Substantial Risk for: inability to function, rapid decompensation and med/psych decompensation Time Spent With Patient Time: Total time managing care of this patient today ____ minutes.
[2025-01-28 07:56] VITALS: BP 127/82; PULSE 75; RESP 18; TEMP 36.4; O2SAT 99
[2025-01-28] MEDS: Primidone 50 MG TABLET 25 MG PO ×2 (08:22→20:36)
[2025-01-28] MEDS: metFORMIN HCl ER 500 MG TAB.ER.24H 1000 MG PO (08:22)
[2025-01-28] MEDS: lisinopriL 20 MG TABLET PO (08:22)
[2025-01-28] MEDS: diazePAM 2 MG TABLET 4 MG PO ×3 (08:23→20:36)
[2025-01-28] MEDS: Empagliflozin 10 MG TABLET PO (08:23)
[2025-01-28] MEDS: OLANZapine ODT 10 MG TAB.RAPDIS TRANSLINGU (08:23)
[2025-01-28 08:59] LABS: Creatinine Clr Calc Pharmacy 70.7; Estimated Glomerular Filt Rate > 60
[2025-01-28 20:00] VITALS: BP 115/68; PULSE 67; RESP 18; TEMP 36.2; O2SAT 100
[2025-01-28] MEDS: OLANZapine 10 MG TABLET 20 MG PO (20:36)
[2025-01-28] MEDS: Sertraline HCL 100 MG TABLET PO (20:36)
[2025-01-28] MEDS: OXcarbazepine 300 MG TABLET PO (20:36)
[2025-01-28] MEDS: Mirtazapine 30 MG TABLET PO (20:36)
--- NOTE | 2025-01-28 23:36 | P.PNPSI_ITS ---
Subjective Subjective Date of Service: 01/28/25 Reason For Visit: Anxiety, mood disorder, ASD Subjective Notes: Conditional Voluntary Healthcare Proxy: Yes Interim History: Patient seen in psychiatric follow-up. Patient does have mild edema in his foot does not appear to be injure there is no significant swelling no complaints of pain no calf pain shortness breath patient is seen sitting in the public room he watches television he is eating and drinking calm and cooperative Medication Compliance: Yes Mental Status Exam Mental Status Exam Patient Appearance: Appropriate Patient Orientation: Person and Situation Level of Consciousness: Awake and Appropriate Patient Behavior: Guarded and Passive Mood Description: Withdrawn and Blunted Affect Description: Constricted Patient Cognition Impaired: Yes Ability to Follow Directions: Good Speech Pattern: Clear Hallucinations: None Delusions: Not Present Thought Process: Distracted and Slowed Thinking Thought Content: positive for [place] and positive for Poverty of Content Judgement and Insight: Not noted to be aggressive when seen not verbalizing thoughts of harm to himself or others Calm and cooperative Diagnostics Vital Signs (24Hr): Vital Signs - 24 hr 01/28/25 07:56 01/28/25 20:00 Temperature 97.6 F 97.2 F Pulse Rate 75 67 Respiratory Rate 18 18 Blood Pressure 127/82 115/68 Pulse Oximetry 99 100 Oxygen Delivery Method Room Air Room Air BMI result Body Mass Index 27.5 Labs 10/28/24 09:10 01/28/25 08:39 Labs: Laboratory Results - last 48 hr 01/28/25 08:39 Hold Purple Top SEE NOTE Creatinine 1.02 Estim Creat Clear Calc 70.7 Estimated GFR > 60 Imaging Radiology Impressions: ITS Impressions Hip X-Ray 01/12/25 13:30 IMPRESSION: No evidence of fracture of the bilateral hips. Electronically signed by: Kaushal Soni MD 01/12/2025 01:54 PM EDT RP Cervical Spine CT 01/14/25 07:59 IMPRESSION: Multilevel cervical spondylosis without acute fracture or trauma-related listhesis. Fleischner guidelines were followed. Electronically signed by: Abe Griffin MD 01/14/2025 09:50 AM EDT RP Head CT 01/14/25 08:30 IMPRESSION: No acute intracranial abnormality. No fracture seen. Electronically signed by: Chidi Rodriguez MD 01/17/2025 01:08 PM EDT RP Hip/Pelvis X-Ray 01/14/25 09:10 IMPRESSION: No acute fracture or dislocation. Electronically signed by: Abe Griffin MD 01/14/2025 10:35 AM EDT RP Medications Medications Current Medications Acetaminophen (Acetaminophen 325 Mg Tablet) 650 mg PO Q6H PRN PRN Reason: pain scale (1-10) Benztropine Mesylate (Benztropine Mesylate 1 Mg Tablet) 1 mg PO BEDTIME PRN PRN Reason: Extrapyramidal Effects Diazepam (Diazepam 10 Mg/2 Ml Cartridge) 5 mg IM TID PRN PRN Reason: PO refusal. HOLD FOR SEDATION Last Admin: 12/21/24 10:22 Dose: 5 mg Diazepam (Diazepam 2 Mg Tablet) 4 mg PO TID DESIRAE Last Admin: 01/28/25 20:36 Dose: 4 mg Empagliflozin (Empagliflozin 10 Mg Tablet) 10 mg PO DAILY DESIRAE Last Admin: 01/28/25 08:23 Dose: 10 mg Lisinopril (Lisinopril 20 Mg Tablet) 20 mg PO DAILY DESIRAE; Protocol Last Admin: 01/28/25 08:22 Dose: 20 mg Metformin HCl (Metformin Hcl Er 500 Mg Tab.Er.24h) 1,000 mg PO DAILY DESIRAE Last Admin: 01/28/25 08:22 Dose: 1,000 mg Mirtazapine (Mirtazapine 30 Mg Tablet) 30 mg PO BEDTIME DESIRAE Last Admin: 01/28/25 20:36 Dose: 30 mg Nicotine Polacrilex (Nicotine Polacrilex 2 Mg Gum) 4 mg BUCCAL Q2H PRN PRN Reason: Nicotine Cravings Olanzapine (Olanzapine 10 Mg Tablet) 20 mg PO BEDTIME DESIRAE Last Admin: 01/28/25 20:36 Dose: 20 mg Olanzapine (Olanzapine Odt 10 Mg Tab.Rapdis) 10 mg TRANSLINGU DAILY DESIRAE Last Admin: 01/28/25 08:23 Dose: 10 mg Olanzapine (Olanzapine 10 Mg Vial) 10 mg IM BID PRN PRN Reason: PO refusal Last Admin: 12/21/24 10:22 Dose: 10 mg Olanzapine (Olanzapine Odt 10 Mg Tab.Rapdis) 10 mg TRANSLINGU BID PRN PRN Reason: agitation Last Admin: 01/14/25 12:16 Dose: 10 mg Oxcarbazepine (Oxcarbazepine 300 Mg Tablet) 300 mg PO BEDTIME DESIRAE Last Admin: 01/28/25 20:36 Dose: 300 mg Primidone (Primidone 50 Mg Tablet) 25 mg PO BID [facility] Last Admin: 01/28/25 20:36 Dose: 25 mg Sertraline HCl (Sertraline Hcl 100 Mg Tablet) 100 mg PO BEDTIME DESIRAE Last Admin: 01/28/25 20:36 Dose: 100 mg Trazodone HCl (Trazodone Hcl 50 Mg Tablet) 50 mg PO BEDTIME PRN PRN Reason: Insomnia Allergies Allergies Allergy/AdvReac Type Severity Reaction Status Date / Time No Known Allergies Allergy Verified 10/14/24 18:14 [No Known Allergies*] Assessment & Plan Assessment & Plan (1) Mood disorder: Status: Acute Code(s): F39 - Unspecified mood [affective] disorder (2) Autism spectrum disorder: Status: Acute Code(s): F84.0 - Autistic disorder (3) Dementia: Status: Acute Code(s): F03.90 - Unspecified dementia, unspecified severity, without behavioral disturbance, psychotic disturbance, mood disturbance, and anxiety Plan Humza was admitted for safety and stabilization. His presentation is very similar to his last admission psychiatrically about a year ago and that is why his caregivers wanted to get ahead of things before he decompensated further. Current medications were reviewed and maintained. Contacts to be made with his treaters next week. 10/17: Continue current regimen and plans 10/19: Continue current tx plan and regime. 10/21: Memantine 5 mg daily- MCI, memory sx Abilify 2 mg daily-augment to antidepressants currently being used. 10/22 continue current tx plan -pt confused 10/23 Continue trials, regime and plan. 10/24: Continue regime and plan of care. 10/25 Abilify increased up to 5 mg. 10/26 keep on same treatment 10/27/24 continues with many complaints, no clear insight into self- 10/28 continue same treatment 10/29 increase Namenda to 5 mg p.o. b.i.d. and change Depakote to Depakene. Depakote level on 13/02 as per blood work of yesterday 10/30/24 - dc abilify inc olanzapine = continue depakene as he did take 5 capsules this am- prn olanzapine given - this afternoon for behaviors on unit- 10/31/24 wrote for liquid depakote option if refuses capsules, also got prn olanzapine for throwing self on floor 11/01 keep same treatment 11/02 increase Zyprexa to 20 mg p.o. q.h.s. 11/03 keep same treatment. 11/04 discontinue Depakote and start Trileptal 300 mg p.o. b.i.d.. Her healthcare proxy will bring a copy of that we are going to invoke it 11/06 increase olanzapine to 20mg po qhs and 10mg po daily. 11/07 continue tx. 12/04 continue tx. 12/05: no changes 12/06 continue tx. 12/12: continue plan of care 12/13: continue tx 12/19 continue current tx plan 12/25: appearing sedated, more of a falls risk, poorer ability to do ADLs. decrease trileptal dosing from 600 BID to 300 BID for now. 12/26: less sedated than yesterday, continue current mgmt, including 1:1, until attending can see pt in the morning. 12/30: continues less sedated. minimally interactive. continue current mgmt. 12/31: per HCP, not at baseline, over-sedated. begin valium taper. decrease valium 5 TID to 4 TID for now. per HCP and SW, HCP has been affirmed in court. IM back-up orders in place and to be enforced by nursing staff. no aggressive or agitated behaviors. 01/02: Continue current regimen and plans Plan 1. Continue with olanzapine 10 mg p.o. q.a.m. and 20 mg p.o. q.h.s., he refused p.o. he received olanzapine IM. 2. Continue with Valium 5 mg p.o. t.i.d. if he refuses he will get Valium IM. 3. We will encourage compliance. The patient had been noncompliant with sertraline, he remains dysphoric. 4. The patient has a healthcare proxy who was affirmed by court, and they want us to medicate him even if the patient does not want to be compliant. 5. At this moment the patient is slightly over-sedated with EPS but we will keep the same dose of antipsychotics since his violence has improved. 01/03/25 Continue plan of care Reassess treatment plan which includes IM medication patient has been much less aggressive than he has in the past Unclear discharge plan at this point 01/04/2025 Patient taking Valium and olanzapine regularly has IM prescribed if refuses intermittently taking medication for diabetes hypertension 01/05/25 Cont medicationhas been stabilizing try and d/c meds that are not esential simplify regimen 01/06/25 stop namenda monitor sugar / bp encourage med acceptance cont valium olanzapine 01/08/2025 Continue olanzapine Valium metformin try and taper and simplify medication as tolerated discharge planning monitor response to change in medication 01/09/25 Try and simplify med regimen d/c planning 01/11/2025 Patient generally more cooperative not agitated generally monitor blood sugar and blood pressure intermittently refuses some doses of metformin 01/12/25 Pt seen later in day seemed stable flat some balance problems noted lowwer trileptal and primidone ck ortho vs dailypt consult for balance 01/13/2025 Patient improving less reactive has not been aggressive more cooperative with treatment and medication. Discharge planning 01/14: fell this morning, per head/c-spine CT and pelvic XR, no osseus injuries. pt appears as at recent mental status. no complaints or requests other than for wheelchair. pt will have 1:1 for ambulation for now. continue current psychopharm mgmt. 01/15: Continue current management and treatment plan. 01/16: continue current management and treatment plan. 01/17 keep same treatment. 01/18 keep same treatment 01/19 keep same treatment 01/20 keep same treatment 01/21 keep same treatment 01/22: calm, cooperative, flat. no questions or complaints. stable presentation. continue current mgmt. 01/23: no change, continue current mgmt. 01/24: stable. continue current mgmt. reps from [facility] coming to [facility] pt for placement today. 01/25/2025 Patient in behavioral control vital signs stable generally accepting treatment continue discharge planning 01/26/2025 Patient generally cooperative seen in the milieu no aggression suicidality or her problematic behavior. Discharge planning strongly urged transition 01/27/2025 Patient continues to be generally stabilizing not combative agitated or threatening has remained generally calm seems safe for discharge planning much improved over time 01/28/2025 Patient seen psychiatric follow-up patient has significantly improved over the months he is calm cooperative seen watching television somewhat social at times not aggressive or combative Reason for continued inpatient stay Substantial Risk for: inability to function and rapid decompensation Time Spent With Patient Time: Total time managing care of this patient today ____ minutes.
[2025-01-29 08:00] VITALS: BP 141/69; PULSE 80; RESP 16; TEMP 36.2; O2SAT 97
[2025-01-29] MEDS: Primidone 50 MG TABLET 25 MG PO ×2 (08:43→20:00)
[2025-01-29] MEDS: diazePAM 2 MG TABLET 4 MG PO ×3 (08:43→19:59)
[2025-01-29] MEDS: metFORMIN HCl ER 500 MG TAB.ER.24H 1000 MG PO (08:43)
[2025-01-29] MEDS: lisinopriL 20 MG TABLET PO (08:44)
[2025-01-29] MEDS: Empagliflozin 10 MG TABLET PO (08:44)
[2025-01-29] MEDS: OLANZapine ODT 10 MG TAB.RAPDIS TRANSLINGU (08:44)
--- NOTE | 2025-01-29 09:37 | HO.PSYCHPN ---
Subjective Subjective Date of Service: 01/29/25 Reason For Visit: Anxiety, mood disorder, ASD Interim History: Team report pt to be improved. Pt is in the milieu and reports he is well, no current questions or concerns. He is calm, content and reports he is without symptoms of concern this a.m. Medication Compliance: Yes Side effects from medications: No Attending Groups: Intermittent Review of Systems Acute medical concerns: No Review of Systems Review of Systems denies Mental Status Exam Mental Status Exam Patient Appearance: Disheveled Patient Orientation: Person, Place and Situation Level of Consciousness: Alert Patient Behavior: Talkative and Poor Eye Contact Mood Description: Constricted Affect Description: Constricted Patient Cognition Impaired: Yes Ability to Follow Directions: Good Speech Pattern: Spontaneous Speech Thought Process: Intact Thought Content: positive for Hamill Judgement: Fair Diagnostics Vital Signs (24Hr): Vital Signs - 24 hr 01/28/25 20:00 Temperature 97.2 F Pulse Rate 67 Respiratory Rate 18 Blood Pressure 115/68 Pulse Oximetry 100 Oxygen Delivery Method Room Air BMI result Body Mass Index 27.5 Labs 10/28/24 09:10 01/28/25 08:39 Labs: Laboratory Results - last 48 hr 01/28/25 08:39 Hold Purple Top SEE NOTE Creatinine 1.02 Estim Creat Clear Calc 70.7 Estimated GFR > 60 Imaging Radiology Impressions: ITS Impressions Hip X-Ray 01/12/25 13:30 IMPRESSION: No evidence of fracture of the bilateral hips. Electronically signed by: Kaushal Soni MD 01/12/2025 01:54 PM EDT RP Cervical Spine CT 01/14/25 07:59 IMPRESSION: Multilevel cervical spondylosis without acute fracture or trauma-related listhesis. Fleischner guidelines were followed. Electronically signed by: Abe Griffin MD 01/14/2025 09:50 AM EDT RP Head CT 01/14/25 08:30 IMPRESSION: No acute intracranial abnormality. No fracture seen. Electronically signed by: Chidi Rodriguez MD 01/17/2025 01:08 PM EDT RP Hip/Pelvis X-Ray 01/14/25 09:10 IMPRESSION: No acute fracture or dislocation. Electronically signed by: Abe Griffin MD 01/14/2025 10:35 AM EDT RP Medications Medications Current Medications Acetaminophen (Acetaminophen 325 Mg Tablet) 650 mg PO Q6H PRN PRN Reason: pain scale (1-10) Benztropine Mesylate (Benztropine Mesylate 1 Mg Tablet) 1 mg PO BEDTIME PRN PRN Reason: Extrapyramidal Effects Diazepam (Diazepam 10 Mg/2 Ml Cartridge) 5 mg IM TID PRN PRN Reason: PO refusal. HOLD FOR SEDATION Last Admin: 12/21/24 10:22 Dose: 5 mg Diazepam (Diazepam 2 Mg Tablet) 4 mg PO TID [facility] Last Admin: 01/29/25 08:43 Dose: 4 mg Empagliflozin (Empagliflozin 10 Mg Tablet) 10 mg PO DAILY [facility] Last Admin: 01/29/25 08:44 Dose: 10 mg Lisinopril (Lisinopril 20 Mg Tablet) 20 mg PO DAILY [facility]; Protocol Last Admin: 01/29/25 08:44 Dose: 20 mg Metformin HCl (Metformin Hcl Er 500 Mg Tab.Er.24h) 1,000 mg PO DAILY [facility]AE Last Admin: 01/29/25 08:43 Dose: 1,000 mg Mirtazapine (Mirtazapine 30 Mg Tablet) 30 mg PO BEDTIME [facility] Last Admin: 01/28/25 20:36 Dose: 30 mg Nicotine Polacrilex (Nicotine Polacrilex 2 Mg Gum) 4 mg BUCCAL Q2H PRN PRN Reason: Nicotine Cravings Olanzapine (Olanzapine 10 Mg Tablet) 20 mg PO BEDTIME [facility] Last Admin: 01/28/25 20:36 Dose: 20 mg Olanzapine (Olanzapine Odt 10 Mg Tab.Rapdis) 10 mg TRANSLINGU DAILY [facility] Last Admin: 01/29/25 08:44 Dose: 10 mg Olanzapine (Olanzapine 10 Mg Vial) 10 mg IM BID PRN PRN Reason: PO refusal Last Admin: 12/21/24 10:22 Dose: 10 mg Olanzapine (Olanzapine Odt 10 Mg Tab.Rapdis) 10 mg TRANSLINGU BID PRN PRN Reason: agitation Last Admin: 01/14/25 12:16 Dose: 10 mg Oxcarbazepine (Oxcarbazepine 300 Mg Tablet) 300 mg PO BEDTIME [facility] Last Admin: 01/28/25 20:36 Dose: 300 mg Primidone (Primidone 50 Mg Tablet) 25 mg PO BID [facility] Last Admin: 01/29/25 08:43 Dose: 25 mg Sertraline HCl (Sertraline Hcl 100 Mg Tablet) 100 mg PO BEDTIME [facility] Last Admin: 01/28/25 20:36 Dose: 100 mg Trazodone HCl (Trazodone Hcl 50 Mg Tablet) 50 mg PO BEDTIME PRN PRN Reason: Insomnia Allergies Allergies Allergy/AdvReac Type Severity Reaction Status Date / Time No Known Allergies Allergy Verified 10/14/24 18:14 [No Known Allergies*] Assessment & Plan Assessment & Plan (1) Mood disorder: Status: Acute Code(s): F39 - Unspecified mood [affective] disorder (2) Autism spectrum disorder: Status: Acute Code(s): F84.0 - Autistic disorder (3) Dementia: Status: Acute Code(s): F03.90 - Unspecified dementia, unspecified severity, without behavioral disturbance, psychotic disturbance, mood disturbance, and anxiety Plan Humza was admitted for safety and stabilization. His presentation is very similar to his last admission psychiatrically about a year ago and that is why his caregivers wanted to get ahead of things before he decompensated further. Current medications were reviewed and maintained. Contacts to be made with his treaters next week. 10/17: Continue current regimen and plans 10/19: Continue current tx plan and regime. 10/21: Memantine 5 mg daily- [facility], memory sx Abilify 2 mg daily-augment to antidepressants currently being used. 10/22 continue current tx plan -pt confused 10/23 Continue trials, regime and plan. 10/24: Continue regime and plan of care. 10/25 Abilify increased up to 5 mg. 10/26 keep on same treatment 10/27/24 continues with many complaints, no clear insight into self- 10/28 continue same treatment 10/29 increase Namenda to 5 mg p.o. b.i.d. and change Depakote to Depakene. Depakote level on 13/02 as per blood work of yesterday 10/30/24 - [facility] olanzapine = continue depakene as he did take 5 capsules this am- prn olanzapine given - this afternoon for behaviors on unit- 10/31/24 wrote for liquid depakote option if refuses capsules, also got prn olanzapine for throwing self on floor 11/01 keep same treatment 11/02 increase Zyprexa to 20 mg p.o. q.h.s. 11/03 keep same treatment. 11/04 discontinue Depakote and start Trileptal 300 mg p.o. b.i.d.. Her healthcare proxy will bring a copy of that we are going to invoke it 11/06 increase olanzapine to 20mg po qhs and 10mg po daily. 11/07 continue tx. 12/04 continue tx. 12/05: no changes 12/06 continue tx. 12/12: continue plan of care 12/13: continue tx 12/19 continue current tx plan 12/25: appearing sedated, more of a falls risk, poorer ability to do ADLs. decrease trileptal dosing from 600 BID to 300 BID for now. 12/26: less sedated than yesterday, continue current mgmt, including 1:1, until attending can see pt in the morning. 12/30: continues less sedated. minimally interactive. continue current mgmt. 12/31: per HCP, not at baseline, over-sedated. begin valium taper. decrease valium 5 TID to 4 TID for now. per HCP and SW, HCP has been affirmed in court. IM back-up orders in place and to be enforced by nursing staff. no aggressive or agitated behaviors. 01/02: Continue current regimen and plans Plan 1. Continue with olanzapine 10 mg p.o. q.a.m. and 20 mg p.o. q.h.s., he refused p.o. he received olanzapine IM. 2. Continue with Valium 5 mg p.o. t.i.d. if he refuses he will get Valium IM. 3. We will encourage compliance. The patient had been noncompliant with sertraline, he remains dysphoric. 4. The patient has a healthcare proxy who was affirmed by court, and they want us to medicate him even if the patient does not want to be compliant. 5. At this moment the patient is slightly over-sedated with EPS but we will keep the same dose of antipsychotics since his violence has improved. 01/03/25 Continue plan of care Reassess treatment plan which includes IM medication patient has been much less aggressive than he has in the past Unclear discharge plan at this point 01/04/2025 Patient taking Valium and olanzapine regularly has IM prescribed if refuses intermittently taking medication for diabetes hypertension 01/05/25 Cont medicationhas been stabilizing try and d/c meds that are not esential simplify regimen 01/06/25 stop namenda monitor sugar / bp encourage med acceptance cont valium olanzapine 01/08/2025 Continue olanzapine Valium metformin try and taper and simplify medication as tolerated discharge planning monitor response to change in medication 01/09/25 Try and simplify med regimen d/c planning 01/11/2025 Patient generally more cooperative not agitated generally monitor blood sugar and blood pressure intermittently refuses some doses of metformin 01/12/25 Pt seen later in day seemed stable flat some balance problems noted lowwer trileptal and primidone ck ortho vs dailypt consult for balance 01/13/2025 Patient improving less reactive has not been aggressive more cooperative with treatment and medication. Discharge planning 01/14: fell this morning, per head/c-spine CT and pelvic XR, no osseus injuries. pt appears as at recent mental status. no complaints or requests other than for wheelchair. pt will have 1:1 for ambulation for now. continue current psychopharm mgmt. 01/15: Continue current management and treatment plan. 01/16: continue current management and treatment plan. 01/17 keep same treatment. 01/18 keep same treatment 01/19 keep same treatment 01/20 keep same treatment 01/21 keep same treatment 01/22: calm, cooperative, flat. no questions or complaints. stable presentation. continue current mgmt. 01/23: no change, continue current mgmt. 01/24: stable. continue current mgmt. reps from [facility] coming to [facility] pt for placement today. 01/25/2025 Patient in behavioral control vital signs stable generally accepting treatment continue discharge planning 01/26/2025 Patient generally cooperative seen in the milieu no aggression suicidality or her problematic behavior. Discharge planning strongly urged transition 01/27/2025 Patient continues to be generally stabilizing not combative agitated or threatening has remained generally calm seems safe for discharge planning much improved over time 01/28/2025 Patient seen psychiatric follow-up patient has significantly improved over the months he is calm cooperative seen watching television somewhat social at times not aggressive or combative 01/29 Continue current regime/plan. Improved. Reason for continued inpatient stay Substantial Risk for: rapid decompensation Time Spent With Patient Time: Total time managing care of this patient today ____ minutes.
[2025-01-29 19:46] VITALS: BP 100/67; PULSE 81; RESP 18; TEMP 36.4; O2SAT 97
[2025-01-29] MEDS: OXcarbazepine 300 MG TABLET PO (19:59)
[2025-01-29] MEDS: Mirtazapine 30 MG TABLET PO (19:59)
[2025-01-29] MEDS: OLANZapine 10 MG TABLET 20 MG PO (19:59)
[2025-01-29] MEDS: Sertraline HCL 100 MG TABLET PO (20:00)
[2025-01-30 08:00] VITALS: BP 111/68; PULSE 79; RESP 16; TEMP 36.7; O2SAT 98
[2025-01-30] MEDS: diazePAM 2 MG TABLET 4 MG PO ×3 (08:14→20:18)
[2025-01-30] MEDS: metFORMIN HCl ER 500 MG TAB.ER.24H 1000 MG PO (08:14)
[2025-01-30] MEDS: lisinopriL 20 MG TABLET PO (08:15)
[2025-01-30] MEDS: Primidone 50 MG TABLET 25 MG PO ×2 (08:15→20:18)
[2025-01-30] MEDS: OLANZapine ODT 10 MG TAB.RAPDIS TRANSLINGU (08:15)
[2025-01-30] MEDS: Empagliflozin 10 MG TABLET PO (08:15)
--- NOTE | 2025-01-30 09:25 | HO.PSYCHPN ---
Subjective Subjective Date of Service: 01/30/25 Reason For Visit: Anxiety, mood disorder, ASD Interim History: Today: Friday: Team report pt to be improved. Pt is in the milieu and reports he is well, no current questions or concerns. He is calm, content and reports he is without symptoms of concern this a.m. Review of Systems Review of Systems denies Yes all other systems are reviewed and are negative and Unobtainable due to mental status Mental Status Exam Mental Status Exam Narrative: Patient seen in room. Weighted blanket. Stated he was okay. Pleasant. Would not engage in conversation. Unable to evaluate SI, HI, psychosis. Patient Appearance: Disheveled Patient Orientation: Person, Place and Situation Level of Consciousness: Alert Patient Behavior: Talkative and Poor Eye Contact Mood Description: Constricted Affect Description: Constricted Patient Cognition Impaired: Yes Ability to Follow Directions: Good Speech Pattern: Spontaneous Speech Memory Description: Remote Impaired Diagnostics Vital Signs (24Hr): Vital Signs - 24 hr 01/29/25 19:46 01/30/25 08:00 Temperature 97.5 F 98.0 F Pulse Rate 81 79 Respiratory Rate 18 16 Blood Pressure 100/67 111/68 Pulse Oximetry 97 98 Oxygen Delivery Method Room Air Room Air BMI result Body Mass Index 27.5 Labs 10/28/24 09:10 01/28/25 08:39 Imaging Radiology Impressions: ITS Impressions Hip X-Ray 01/12/25 13:30 IMPRESSION: No evidence of fracture of the bilateral hips. Electronically signed by: Kaushal Soni MD 01/12/2025 01:54 PM EDT RP Cervical Spine CT 01/14/25 07:59 IMPRESSION: Multilevel cervical spondylosis without acute fracture or trauma-related listhesis. Fleischner guidelines were followed. Electronically signed by: Abe Griffin MD 01/14/2025 09:50 AM EDT RP Head CT 01/14/25 08:30 IMPRESSION: No acute intracranial abnormality. No fracture seen. Electronically signed by: Chidi Rodriguez MD 01/17/2025 01:08 PM EDT RP Hip/Pelvis X-Ray 01/14/25 09:10 IMPRESSION: No acute fracture or dislocation. Electronically signed by: Abe Griffin MD 01/14/2025 10:35 AM EDT Medications Medications Current Medications Acetaminophen (Acetaminophen 325 Mg Tablet) 650 mg PO Q6H PRN PRN Reason: pain scale (1-10) Benztropine Mesylate (Benztropine Mesylate 1 Mg Tablet) 1 mg PO BEDTIME PRN PRN Reason: Extrapyramidal Effects Diazepam (Diazepam 10 Mg/2 Ml Cartridge) 5 mg IM TID PRN PRN Reason: PO refusal. HOLD FOR SEDATION Last Admin: 12/21/24 10:22 Dose: 5 mg Diazepam (Diazepam 2 Mg Tablet) 4 mg PO TID DESIRAE Last Admin: 01/30/25 08:14 Dose: 4 mg Empagliflozin (Empagliflozin 10 Mg Tablet) 10 mg PO DAILY [facility]IRAE Last Admin: 01/30/25 08:15 Dose: 10 mg Lisinopril (Lisinopril 20 Mg Tablet) 20 mg PO DAILY [facility]; Protocol Last Admin: 01/30/25 08:15 Dose: 20 mg Metformin HCl (Metformin Hcl Er 500 Mg Tab.Er.24h) 1,000 mg PO DAILY DESIRAE Last Admin: 01/30/25 08:14 Dose: 1,000 mg Mirtazapine (Mirtazapine 30 Mg Tablet) 30 mg PO BEDTIME [facility]IR[facility] Last Admin: 01/29/25 19:59 Dose: 30 mg Nicotine Polacrilex (Nicotine Polacrilex 2 Mg Gum) 4 mg BUCCAL Q2H PRN PRN Reason: Nicotine Cravings Olanzapine (Olanzapine 10 Mg Tablet) 20 mg PO BEDTIME DESIRAE Last Admin: 01/29/25 19:59 Dose: 20 mg Olanzapine (Olanzapine Odt 10 Mg Tab.Rapdis) 10 mg TRANSLINGU DAILY [facility]IRAE Last Admin: 01/30/25 08:15 Dose: 10 mg Olanzapine (Olanzapine 10 Mg Vial) 10 mg IM BID PRN PRN Reason: PO refusal Last Admin: 12/21/24 10:22 Dose: 10 mg Olanzapine (Olanzapine Odt 10 Mg Tab.Rapdis) 10 mg TRANSLINGU BID PRN PRN Reason: agitation Last Admin: 01/14/25 12:16 Dose: 10 mg Oxcarbazepine (Oxcarbazepine 300 Mg Tablet) 300 mg PO BEDTIME DESIRAE Last Admin: 01/29/25 19:59 Dose: 300 mg Primidone (Primidone 50 Mg Tablet) 25 mg PO BID DESIRAE Last Admin: 01/30/25 08:15 Dose: 25 mg Sertraline HCl (Sertraline Hcl 100 Mg Tablet) 100 mg PO BEDTIME [facility] Last Admin: 01/29/25 20:00 Dose: 100 mg Trazodone HCl (Trazodone Hcl 50 Mg Tablet) 50 mg PO BEDTIME PRN PRN Reason: Insomnia Allergies Allergies Allergy/AdvReac Type Severity Reaction Status Date / Time No Known Allergies Allergy Verified 10/14/24 18:14 [No Known Allergies*] Assessment & Plan Assessment & Plan (1) Mood disorder: Status: Acute Code(s): F39 - Unspecified mood [affective] disorder (2) Autism spectrum disorder: Status: Acute Code(s): F84.0 - Autistic disorder (3) Dementia: Status: Acute Code(s): F03.90 - Unspecified dementia, unspecified severity, without behavioral disturbance, psychotic disturbance, mood disturbance, and anxiety Plan Humza was admitted for safety and stabilization. His presentation is very similar to his last admission psychiatrically about a year ago and that is why his caregivers wanted to get ahead of things before he decompensated further. Current medications were reviewed and maintained. Contacts to be made with his treaters next week. 10/17: Continue current regimen and plans 10/19: Continue current tx plan and regime. 10/21: Memantine 5 mg daily- [facility], memory sx Abilify 2 mg daily-augment to antidepressants currently being used. 10/22 continue current tx plan -pt confused 10/23 Continue trials, regime and plan. 10/24: Continue regime and plan of care. 10/25 Abilify increased up to 5 mg. 10/26 keep on same treatment 10/27/24 continues with many complaints, no clear insight into self- 10/28 continue same treatment 10/29 increase Namenda to 5 mg p.o. b.i.d. and change Depakote to Depakene. Depakote level on 13/02 as per blood work of yesterday 10/30/24 - [facility] olanzapine = continue depakene as he did take 5 capsules this am- prn olanzapine given - this afternoon for behaviors on unit- 10/31/24 wrote for liquid depakote option if refuses capsules, also got prn olanzapine for throwing self on floor 11/01 keep same treatment 11/02 increase Zyprexa to 20 mg p.o. q.h.s. 11/03 keep same treatment. 11/04 discontinue Depakote and start Trileptal 300 mg p.o. b.i.d.. Her healthcare proxy will bring a copy of that we are going to invoke it 11/06 increase olanzapine to 20mg po qhs and 10mg po daily. 11/07 continue tx. 12/04 continue tx. 12/05: no changes 12/06 continue tx. 12/12: continue plan of care 12/13: continue tx 12/19 continue current tx plan 12/25: appearing sedated, more of a falls risk, poorer ability to do ADLs. decrease trileptal dosing from 600 BID to 300 BID for now. 12/26: less sedated than yesterday, continue current mgmt, including 1:1, until attending can see pt in the morning. 12/30: continues less sedated. minimally interactive. continue current mgmt. 12/31: per HCP, not at baseline, over-sedated. begin valium taper. decrease valium 5 TID to 4 TID for now. per HCP and SW, HCP has been affirmed in court. IM back-up orders in place and to be enforced by nursing staff. no aggressive or agitated behaviors. 01/02: Continue current regimen and plans Plan 1. Continue with olanzapine 10 mg p.o. q.a.m. and 20 mg p.o. q.h.s., he refused p.o. he received olanzapine IM. 2. Continue with Valium 5 mg p.o. t.i.d. if he refuses he will get Valium IM. 3. We will encourage compliance. The patient had been noncompliant with sertraline, he remains dysphoric. 4. The patient has a healthcare proxy who was affirmed by court, and they want us to medicate him even if the patient does not want to be compliant. 5. At this moment the patient is slightly over-sedated with EPS but we will keep the same dose of antipsychotics since his violence has improved. 01/03/25 Continue plan of care Reassess treatment plan which includes IM medication patient has been much less aggressive than he has in the past Unclear discharge plan at this point 01/04/2025 Patient taking Valium and olanzapine regularly has IM prescribed if refuses intermittently taking medication for diabetes hypertension 01/05/25 Cont medicationhas been stabilizing try and d/c meds that are not esential simplify regimen 01/06/25 stop namenda monitor sugar / bp encourage med acceptance cont valium olanzapine 01/08/2025 Continue olanzapine Valium metformin try and taper and simplify medication as tolerated discharge planning monitor response to change in medication 01/09/25 Try and simplify med regimen d/c planning 01/11/2025 Patient generally more cooperative not agitated generally monitor blood sugar and blood pressure intermittently refuses some doses of metformin 01/12/25 Pt seen later in day seemed stable flat some balance problems noted lowwer trileptal and primidone ck ortho vs dailypt consult for balance 01/13/2025 Patient improving less reactive has not been aggressive more cooperative with treatment and medication. Discharge planning 01/14: fell this morning, per head/c-spine CT and pelvic XR, no osseus injuries. pt appears as at recent mental status. no complaints or requests other than for wheelchair. pt will have 1:1 for ambulation for now. continue current psychopharm mgmt. 01/15: Continue current management and treatment plan. 01/16: continue current management and treatment plan. 01/17 keep same treatment. 01/18 keep same treatment 01/19 keep same treatment 01/20 keep same treatment 01/21 keep same treatment 01/22: calm, cooperative, flat. no questions or complaints. stable presentation. continue current mgmt. 01/23: no change, continue current mgmt. 01/24: stable. continue current mgmt. reps from [facility] coming to [facility] pt for placement today. 01/25/2025 Patient in behavioral control vital signs stable generally accepting treatment continue discharge planning 01/26/2025 Patient generally cooperative seen in the milieu no aggression suicidality or her problematic behavior. Discharge planning strongly urged transition 01/27/2025 Patient continues to be generally stabilizing not combative agitated or threatening has remained generally calm seems safe for discharge planning much improved over time 01/28/2025 Patient seen psychiatric follow-up patient has significantly improved over the months he is calm cooperative seen watching television somewhat social at times not aggressive or combative 01/29 Continue current regime/plan. Improved. Time Spent With Patient Time: Total time managing care of this patient today ____ minutes.
[2025-01-30 20:00] VITALS: BP 101/62; PULSE 78; RESP 16; TEMP 36.5; O2SAT 97
[2025-01-30] MEDS: OLANZapine 10 MG TABLET 20 MG PO (20:18)
[2025-01-30] MEDS: OXcarbazepine 300 MG TABLET PO (20:18)
[2025-01-30] MEDS: Mirtazapine 30 MG TABLET PO (20:18)
[2025-01-30] MEDS: Sertraline HCL 100 MG TABLET PO (20:18)
[2025-01-31 08:00] VITALS: BP 127/72; PULSE 67; RESP 18; TEMP 36.3; O2SAT 98
[2025-01-31] MEDS: OLANZapine ODT 10 MG TAB.RAPDIS TRANSLINGU (08:46)
[2025-01-31] MEDS: Primidone 50 MG TABLET 25 MG PO ×2 (08:46→19:33)
[2025-01-31 08:47] VITALS: BP 127/72
[2025-01-31] MEDS: metFORMIN HCl ER 500 MG TAB.ER.24H 1000 MG PO (08:47)
[2025-01-31] MEDS: diazePAM 2 MG TABLET 4 MG PO ×3 (08:47→19:34)
[2025-01-31] MEDS: lisinopriL 20 MG TABLET PO (08:47)
[2025-01-31] MEDS: Empagliflozin 10 MG TABLET PO (08:47)
--- NOTE | 2025-01-31 15:51 | P.PNPSI_ITS ---
Subjective Subjective Date of Service: 01/31/25 Reason For Visit: Anxiety, mood disorder, ASD Interim History: at table, apparently having finished lunch, towel still tucked in shirt collar for a napkin. no complaints or requests. per staff, stable, no notable events or behaviors. Mental Status Exam Mental Status Exam Patient Appearance: Appropriate Patient Orientation: Person and Situation Level of Consciousness: Awake and Appropriate Patient Behavior: Guarded and Passive Mood Description: Withdrawn Affect Description: Constricted Patient Cognition Impaired: Yes Ability to Follow Directions: Good Speech Pattern: Clear Hallucinations: None Delusions: Not Present Thought Process: Distracted and Slowed Thinking Thought Content: positive for [place] and positive for Poverty of Content Judgement: Poor Diagnostics Vital Signs (24Hr): Vital Signs - 24 hr 01/30/25 20:00 01/31/25 08:00 01/31/25 08:47 Temperature 97.7 F 97.4 F Pulse Rate 78 67 Respiratory Rate 16 18 Blood Pressure 101/62 127/72 127/72 Pulse Oximetry 97 98 Oxygen Delivery Method Room Air Room Air BMI result Body Mass Index 27.5 Labs 10/28/24 09:10 01/28/25 08:39 Imaging Radiology Impressions: ITS Impressions Hip X-Ray 01/12/25 13:30 IMPRESSION: No evidence of fracture of the bilateral hips. Electronically signed by: Kaushal Soni MD 01/12/2025 01:54 PM EDT RP Cervical Spine CT 01/14/25 07:59 IMPRESSION: Multilevel cervical spondylosis without acute fracture or trauma-related listhesis. Fleischner guidelines were followed. Electronically signed by: Abe Griffin MD 01/14/2025 09:50 AM EDT RP Head CT 01/14/25 08:30 IMPRESSION: No acute intracranial abnormality. No fracture seen. Electronically signed by: Chidi Rodriguez MD 01/17/2025 01:08 PM EDT RP Hip/Pelvis X-Ray 01/14/25 09:10 IMPRESSION: No acute fracture or dislocation. Electronically signed by: Abe Griffin MD 01/14/2025 10:35 AM EDT RP Medications Medications Current Medications Acetaminophen (Acetaminophen 325 Mg Tablet) 650 mg PO Q6H PRN PRN Reason: pain scale (1-10) Benztropine Mesylate (Benztropine Mesylate 1 Mg Tablet) 1 mg PO BEDTIME PRN PRN Reason: Extrapyramidal Effects Diazepam (Diazepam 10 Mg/2 Ml Cartridge) 5 mg IM TID PRN PRN Reason: PO refusal. HOLD FOR SEDATION Last Admin: 12/21/24 10:22 Dose: 5 mg Diazepam (Diazepam 2 Mg Tablet) 4 mg PO TID DESIRAE Last Admin: 01/31/25 15:32 Dose: 4 mg Empagliflozin (Empagliflozin 10 Mg Tablet) 10 mg PO DAILY DESIRAE Last Admin: 01/31/25 08:47 Dose: 10 mg Lisinopril (Lisinopril 20 Mg Tablet) 20 mg PO DAILY [facility]; Protocol Last Admin: 01/31/25 08:47 Dose: 20 mg Metformin HCl (Metformin Hcl Er 500 Mg Tab.Er.24h) 1,000 mg PO DAILY DESIRAE Last Admin: 01/31/25 08:47 Dose: 1,000 mg Mirtazapine (Mirtazapine 30 Mg Tablet) 30 mg PO BEDTIME DESIRAE Last Admin: 01/30/25 20:18 Dose: 30 mg Nicotine Polacrilex (Nicotine Polacrilex 2 Mg Gum) 4 mg BUCCAL Q2H PRN PRN Reason: Nicotine Cravings Olanzapine (Olanzapine 10 Mg Tablet) 20 mg PO BEDTIME DESIRAE Last Admin: 01/30/25 20:18 Dose: 20 mg Olanzapine (Olanzapine Odt 10 Mg Tab.Rapdis) 10 mg TRANSLINGU DAILY DESIRAE Last Admin: 01/31/25 08:46 Dose: 10 mg Olanzapine (Olanzapine 10 Mg Vial) 10 mg IM BID PRN PRN Reason: PO refusal Last Admin: 12/21/24 10:22 Dose: 10 mg Olanzapine (Olanzapine Odt 10 Mg Tab.Rapdis) 10 mg TRANSLINGU BID PRN PRN Reason: agitation Last Admin: 01/14/25 12:16 Dose: 10 mg Oxcarbazepine (Oxcarbazepine 300 Mg Tablet) 300 mg PO BEDTIME DESIRAE Last Admin: 01/30/25 20:18 Dose: 300 mg Primidone (Primidone 50 Mg Tablet) 25 mg PO BID DESIRAE Last Admin: 01/31/25 08:46 Dose: 25 mg Sertraline HCl (Sertraline Hcl 100 Mg Tablet) 100 mg PO BEDTIME DESIRAE Last Admin: 01/30/25 20:18 Dose: 100 mg Trazodone HCl (Trazodone Hcl 50 Mg Tablet) 50 mg PO BEDTIME PRN PRN Reason: Insomnia Allergies Allergies Allergy/AdvReac Type Severity Reaction Status Date / Time No Known Allergies Allergy Verified 10/14/24 18:14 [No Known Allergies*] Assessment & Plan Assessment & Plan (1) Mood disorder: Status: Acute Code(s): F39 - Unspecified mood [affective] disorder (2) Autism spectrum disorder: Status: Acute Code(s): F84.0 - Autistic disorder (3) Dementia: Status: Acute Code(s): F03.90 - Unspecified dementia, unspecified severity, without behavioral disturbance, psychotic disturbance, mood disturbance, and anxiety Plan Humza was admitted for safety and stabilization. His presentation is very similar to his last admission psychiatrically about a year ago and that is why his caregivers wanted to get ahead of things before he decompensated further. Current medications were reviewed and maintained. Contacts to be made with his treaters next week. 10/17: Continue current regimen and plans 10/19: Continue current tx plan and regime. 10/21: Memantine 5 mg daily- [facility]CI, memory sx Abilify 2 mg daily-augment to antidepressants currently being used. 10/22 continue current tx plan -pt confused 10/23 Continue trials, regime and plan. 10/24: Continue regime and plan of care. 10/25 Abilify increased up to 5 mg. 10/26 keep on same treatment 10/27/24 continues with many complaints, no clear insight into self- 10/28 continue same treatment 10/29 increase Namenda to 5 mg p.o. b.i.d. and change Depakote to Depakene. Depakote level on 13/02 as per blood work of yesterday 10/30/24 - ct [facility] olanzapine = continue depakene as he did take 5 capsules this am- prn olanzapine given - this afternoon for behaviors on unit- 10/31/24 wrote for liquid depakote option if refuses capsules, also got prn olanzapine for throwing self on floor 11/01 keep same treatment 11/02 increase Zyprexa to 20 mg p.o. q.h.s. 11/03 keep same treatment. 11/04 discontinue Depakote and start Trileptal 300 mg p.o. b.i.d.. Her healthcare proxy will bring a copy of that we are going to invoke it 11/06 increase olanzapine to 20mg po qhs and 10mg po daily. 11/07 continue tx. 12/04 continue tx. 12/05: no changes 12/06 continue tx. 12/12: continue plan of care 12/13: continue tx 12/19 continue current tx plan 12/25: appearing sedated, more of a falls risk, poorer ability to do ADLs. decrease trileptal dosing from 600 BID to 300 BID for now. 12/26: less sedated than yesterday, continue current mgmt, including 1:1, until attending can see pt in the morning. 12/30: continues less sedated. minimally interactive. continue current mgmt. 12/31: per HCP, not at baseline, over-sedated. begin valium taper. decrease valium 5 TID to 4 TID for now. per HCP and SW, HCP has been affirmed in court. IM back-up orders in place and to be enforced by nursing staff. no aggressive or agitated behaviors. 01/02: Continue current regimen and plans Plan 1. Continue with olanzapine 10 mg p.o. q.a.m. and 20 mg p.o. q.h.s., he refused p.o. he received olanzapine IM. 2. Continue with Valium 5 mg p.o. t.i.d. if he refuses he will get Valium IM. 3. We will encourage compliance. The patient had been noncompliant with sertraline, he remains dysphoric. 4. The patient has a healthcare proxy who was affirmed by court, and they want us to medicate him even if the patient does not want to be compliant. 5. At this moment the patient is slightly over-sedated with EPS but we will keep the same dose of antipsychotics since his violence has improved. 01/03/25 Continue plan of care Reassess treatment plan which includes IM medication patient has been much less aggressive than he has in the past Unclear discharge plan at this point 01/04/2025 Patient taking Valium and olanzapine regularly has IM prescribed if refuses intermittently taking medication for diabetes hypertension 01/05/25 Cont medicationhas been stabilizing try and d/c meds that are not esential simplify regimen 01/06/25 stop namenda monitor sugar / bp encourage med acceptance cont valium olanzapine 01/08/2025 Continue olanzapine Valium metformin try and taper and simplify medication as tolerated discharge planning monitor response to change in medication 01/09/25 Try and simplify med regimen d/c planning 01/11/2025 Patient generally more cooperative not agitated generally monitor blood sugar and blood pressure intermittently refuses some doses of metformin 01/12/25 Pt seen later in day seemed stable flat some balance problems noted lowwer trileptal and primidone ck ortho vs dailypt consult for balance 01/13/2025 Patient improving less reactive has not been aggressive more cooperative with treatment and medication. Discharge planning 01/14: fell this morning, per head/c-spine CT and pelvic XR, no osseus injuries. pt appears as at recent mental status. no complaints or requests other than for wheelchair. pt will have 1:1 for ambulation for now. continue current psychopharm mgmt. 01/15: Continue current management and treatment plan. 01/16: continue current management and treatment plan. 01/17 keep same treatment. 01/18 keep same treatment 01/19 keep same treatment 01/20 keep same treatment 01/21 keep same treatment 01/22: calm, cooperative, flat. no questions or complaints. stable presentation. continue current mgmt. 01/23: no change, continue current mgmt. 01/24: stable. continue current mgmt. reps from [facility] coming to [facility] pt for placement today. 01/25/2025 Patient in behavioral control vital signs stable generally accepting treatment continue discharge planning 01/26/2025 Patient generally cooperative seen in the milieu no aggression suicidality or her problematic behavior. Discharge planning strongly urged transition 01/27/2025 Patient continues to be generally stabilizing not combative agitated or threatening has remained generally calm seems safe for discharge planning much improved over time 01/28/2025 Patient seen psychiatric follow-up patient has significantly improved over the months he is calm cooperative seen watching television somewhat social at times not aggressive or combative 01/29 Continue current regime/plan. Improved. 01/31: stably improved. awaiting placement. continue current mgmt. Reason for continued inpatient stay Substantial Risk for: inability to function and rapid decompensation Time Spent With Patient Time: Total time managing care of this patient today ____ minutes.
[2025-01-31 19:31] VITALS: BP 107/67; PULSE 86; RESP 16; TEMP 36.1; O2SAT 98
[2025-01-31] MEDS: Mirtazapine 30 MG TABLET PO (19:33)
[2025-01-31] MEDS: Sertraline HCL 100 MG TABLET PO (19:33)
[2025-01-31] MEDS: OXcarbazepine 300 MG TABLET PO (19:33)
[2025-01-31] MEDS: OLANZapine 10 MG TABLET 20 MG PO (19:34)
[2025-02-01 07:49] VITALS: BP 105/72; PULSE 89; RESP 20; TEMP 35.8; O2SAT 97
[2025-02-01] MEDS: OLANZapine ODT 10 MG TAB.RAPDIS TRANSLINGU (07:51)
[2025-02-01] MEDS: Primidone 50 MG TABLET 25 MG PO ×2 (07:52→20:18)
[2025-02-01] MEDS: Empagliflozin 10 MG TABLET PO (07:52)
[2025-02-01] MEDS: diazePAM 2 MG TABLET 4 MG PO ×3 (07:53→20:17)
[2025-02-01] MEDS: lisinopriL 20 MG TABLET PO (07:53)
[2025-02-01] MEDS: metFORMIN HCl ER 500 MG TAB.ER.24H 1000 MG PO (07:54)
--- NOTE | 2025-02-01 15:23 | HO.PSYCHPN ---
Subjective Subjective Date of Service: 02/01/25 Reason For Visit: Anxiety, mood disorder, ASD Interim History: watching TV in milieu. no complaints or requests. per staff, denies dep/anx. eating, taking meds. not attending groups. brighter affect. slept well. awaiting placement. sister is affirmed HCP. Mental Status Exam Mental Status Exam Patient Appearance: Appropriate Patient Orientation: Person and Situation Level of Consciousness: Awake and Appropriate Patient Behavior: Guarded and Passive Mood Description: Withdrawn Affect Description: Constricted Patient Cognition Impaired: Yes Ability to Follow Directions: Good Speech Pattern: Clear Hallucinations: None Delusions: Not Present Thought Process: Distracted and Slowed Thinking Thought Content: positive for [place] and positive for Poverty of Content Judgement: Poor Diagnostics Vital Signs (24Hr): Vital Signs - 24 hr 01/31/25 19:31 02/01/25 07:49 Temperature 97 F 96.5 F L Pulse Rate 86 89 Respiratory Rate 16 20 Blood Pressure 107/67 105/72 Pulse Oximetry 98 97 Oxygen Delivery Method Room Air Room Air BMI result Body Mass Index 27.5 Labs 10/28/24 09:10 01/28/25 08:39 Imaging Radiology Impressions: ITS Impressions Hip X-Ray 01/12/25 13:30 IMPRESSION: No evidence of fracture of the bilateral hips. Electronically signed by: Kaushal Soni MD 01/12/2025 01:54 PM EDT RP Cervical Spine CT 01/14/25 07:59 IMPRESSION: Multilevel cervical spondylosis without acute fracture or trauma-related listhesis. Fleischner guidelines were followed. Electronically signed by: Abe Griffin MD 01/14/2025 09:50 AM EDT RP Head CT 01/14/25 08:30 IMPRESSION: No acute intracranial abnormality. No fracture seen. Electronically signed by: Chidi Rodriguez MD 01/17/2025 01:08 PM EDT RP Hip/Pelvis X-Ray 01/14/25 09:10 IMPRESSION: No acute fracture or dislocation. Electronically signed by: Abe Griffin MD 01/14/2025 10:35 AM EDT RP Medications Medications Current Medications Acetaminophen (Acetaminophen 325 Mg Tablet) 650 mg PO Q6H PRN PRN Reason: pain scale (1-10) Benztropine Mesylate (Benztropine Mesylate 1 Mg Tablet) 1 mg PO BEDTIME PRN PRN Reason: Extrapyramidal Effects Diazepam (Diazepam 10 Mg/2 Ml Cartridge) 5 mg IM TID PRN PRN Reason: PO refusal. HOLD FOR SEDATION Last Admin: 12/21/24 10:22 Dose: 5 mg Diazepam (Diazepam 2 Mg Tablet) 4 mg PO TID DESIRAE Last Admin: 02/01/25 14:48 Dose: 4 mg Empagliflozin (Empagliflozin 10 Mg Tablet) 10 mg PO DAILY DESIRAE Last Admin: 02/01/25 07:52 Dose: 10 mg Lisinopril (Lisinopril 20 Mg Tablet) 20 mg PO DAILY [facility]; Protocol Last Admin: 02/01/25 07:53 Dose: 20 mg Metformin HCl (Metformin Hcl Er 500 Mg Tab.Er.24h) 1,000 mg PO DAILY DESIRAE Last Admin: 02/01/25 07:54 Dose: 1,000 mg Mirtazapine (Mirtazapine 30 Mg Tablet) 30 mg PO BEDTIME DESIRAE Last Admin: 01/31/25 19:33 Dose: 30 mg Nicotine Polacrilex (Nicotine Polacrilex 2 Mg Gum) 4 mg BUCCAL Q2H PRN PRN Reason: Nicotine Cravings Olanzapine (Olanzapine 10 Mg Tablet) 20 mg PO BEDTIME DESIRAE Last Admin: 01/31/25 19:34 Dose: 20 mg Olanzapine (Olanzapine Odt 10 Mg Tab.Rapdis) 10 mg TRANSLINGU DAILY DESIRAE Last Admin: 02/01/25 07:51 Dose: 10 mg Olanzapine (Olanzapine 10 Mg Vial) 10 mg IM BID PRN PRN Reason: PO refusal Last Admin: 12/21/24 10:22 Dose: 10 mg Olanzapine (Olanzapine Odt 10 Mg Tab.Rapdis) 10 mg TRANSLINGU BID PRN PRN Reason: agitation Last Admin: 01/14/25 12:16 Dose: 10 mg Oxcarbazepine (Oxcarbazepine 300 Mg Tablet) 300 mg PO BEDTIME DESIRAE Last Admin: 01/31/25 19:33 Dose: 300 mg Primidone (Primidone 50 Mg Tablet) 25 mg PO BID DESIRAE Last Admin: 02/01/25 07:52 Dose: 25 mg Sertraline HCl (Sertraline Hcl 100 Mg Tablet) 100 mg PO BEDTIME DESIRAE Last Admin: 01/31/25 19:33 Dose: 100 mg Trazodone HCl (Trazodone Hcl 50 Mg Tablet) 50 mg PO BEDTIME PRN PRN Reason: Insomnia Allergies Allergies Allergy/AdvReac Type Severity Reaction Status Date / Time No Known Allergies Allergy Verified 10/14/24 18:14 [No Known Allergies*] Assessment & Plan Assessment & Plan (1) Mood disorder: Status: Acute Code(s): F39 - Unspecified mood [affective] disorder (2) Autism spectrum disorder: Status: Acute Code(s): F84.0 - Autistic disorder (3) Dementia: Status: Acute Code(s): F03.90 - Unspecified dementia, unspecified severity, without behavioral disturbance, psychotic disturbance, mood disturbance, and anxiety Plan Humza was admitted for safety and stabilization. His presentation is very similar to his last admission psychiatrically about a year ago and that is why his caregivers wanted to get ahead of things before he decompensated further. Current medications were reviewed and maintained. Contacts to be made with his treaters next week. 10/17: Continue current regimen and plans 10/19: Continue current tx plan and regime. 10/21: Memantine 5 mg daily- MCI, memory sx Abilify 2 mg daily-augment to antidepressants currently being used. 10/22 continue current tx plan -pt confused 10/23 Continue trials, regime and plan. 10/24: Continue regime and plan of care. 10/25 Abilify increased up to 5 mg. 10/26 keep on same treatment 10/27/24 continues with many complaints, no clear insight into self- 10/28 continue same treatment 10/29 increase Namenda to 5 mg p.o. b.i.d. and change Depakote to Depakene. Depakote level on 13/02 as per blood work of yesterday 10/30/24 - tx [facility] olanzapine = continue depakene as he did take 5 capsules this am- prn olanzapine given - this afternoon for behaviors on unit- 10/31/24 wrote for liquid depakote option if refuses capsules, also got prn olanzapine for throwing self on floor 11/01 keep same treatment 11/02 increase Zyprexa to 20 mg p.o. q.h.s. 11/03 keep same treatment. 11/04 discontinue Depakote and start Trileptal 300 mg p.o. b.i.d.. Her healthcare proxy will bring a copy of that we are going to invoke it 11/06 increase olanzapine to 20mg po qhs and 10mg po daily. 11/07 continue tx. 12/04 continue tx. 12/05: no changes 12/06 continue tx. 12/12: continue plan of care 12/13: continue tx 12/19 continue current tx plan 12/25: appearing sedated, more of a falls risk, poorer ability to do ADLs. decrease trileptal dosing from 600 BID to 300 BID for now. 12/26: less sedated than yesterday, continue current mgmt, including 1:1, until attending can see pt in the morning. 12/30: continues less sedated. minimally interactive. continue current mgmt. 12/31: per HCP, not at baseline, over-sedated. begin valium taper. decrease valium 5 TID to 4 TID for now. per HCP and SW, HCP has been affirmed in court. IM back-up orders in place and to be enforced by nursing staff. no aggressive or agitated behaviors. 01/02: Continue current regimen and plans Plan 1. Continue with olanzapine 10 mg p.o. q.a.m. and 20 mg p.o. q.h.s., he refused p.o. he received olanzapine IM. 2. Continue with Valium 5 mg p.o. t.i.d. if he refuses he will get Valium IM. 3. We will encourage compliance. The patient had been noncompliant with sertraline, he remains dysphoric. 4. The patient has a healthcare proxy who was affirmed by court, and they want us to medicate him even if the patient does not want to be compliant. 5. At this moment the patient is slightly over-sedated with EPS but we will keep the same dose of antipsychotics since his violence has improved. 01/03/25 Continue plan of care Reassess treatment plan which includes IM medication patient has been much less aggressive than he has in the past Unclear discharge plan at this point 01/04/2025 Patient taking Valium and olanzapine regularly has IM prescribed if refuses intermittently taking medication for diabetes hypertension 01/05/25 Cont medicationhas been stabilizing try and d/c meds that are not esential simplify regimen 01/06/25 stop namenda monitor sugar / bp encourage med acceptance cont valium olanzapine 01/08/2025 Continue olanzapine Valium metformin try and taper and simplify medication as tolerated discharge planning monitor response to change in medication 01/09/25 Try and simplify med regimen d/c planning 01/11/2025 Patient generally more cooperative not agitated generally monitor blood sugar and blood pressure intermittently refuses some doses of metformin 01/12/25 Pt seen later in day seemed stable flat some balance problems noted lowwer trileptal and primidone ck ortho vs dailypt consult for balance 01/13/2025 Patient improving less reactive has not been aggressive more cooperative with treatment and medication. Discharge planning 01/14: fell this morning, per head/c-spine CT and pelvic XR, no osseus injuries. pt appears as at recent mental status. no complaints or requests other than for wheelchair. pt will have 1:1 for ambulation for now. continue current psychopharm mgmt. 01/15: Continue current management and treatment plan. 01/16: continue current management and treatment plan. 01/17 keep same treatment. 01/18 keep same treatment 01/19 keep same treatment 01/20 keep same treatment 01/21 keep same treatment 01/22: calm, cooperative, flat. no questions or complaints. stable presentation. continue current mgmt. 01/23: no change, continue current mgmt. 01/24: stable. continue current mgmt. reps from [facility] coming to [facility] pt for placement today. 01/25/2025 Patient in behavioral control vital signs stable generally accepting treatment continue discharge planning 01/26/2025 Patient generally cooperative seen in the milieu no aggression suicidality or her problematic behavior. Discharge planning strongly urged transition 01/27/2025 Patient continues to be generally stabilizing not combative agitated or threatening has remained generally calm seems safe for discharge planning much improved over time 01/28/2025 Patient seen psychiatric follow-up patient has significantly improved over the months he is calm cooperative seen watching television somewhat social at times not aggressive or combative 01/29 Continue current regime/plan. Improved. 01/31: stably improved. awaiting placement. continue current mgmt. 02/01: stable. continue current mgmt. awaiting placement. Reason for continued inpatient stay Substantial Risk for: inability to function Time Spent With Patient Time: Total time managing care of this patient today ____ minutes.
[2025-02-01 20:00] VITALS: BP 107/65; PULSE 75; RESP 16; TEMP 36.4; O2SAT 98
[2025-02-01] MEDS: OLANZapine 10 MG TABLET 20 MG PO (20:17)
[2025-02-01] MEDS: Mirtazapine 30 MG TABLET PO (20:18)
[2025-02-01] MEDS: OXcarbazepine 300 MG TABLET PO (20:19)
[2025-02-01] MEDS: Sertraline HCL 100 MG TABLET PO (20:19)
[2025-02-02 07:55] VITALS: BP 106/67; PULSE 74; RESP 18; TEMP 36.6; O2SAT 98
[2025-02-02] MEDS: OLANZapine ODT 10 MG TAB.RAPDIS TRANSLINGU (08:18)
[2025-02-02] MEDS: diazePAM 2 MG TABLET 4 MG PO ×3 (08:18→19:52)
[2025-02-02] MEDS: lisinopriL 20 MG TABLET PO (08:18)
[2025-02-02] MEDS: metFORMIN HCl ER 500 MG TAB.ER.24H 1000 MG PO (08:18)
[2025-02-02] MEDS: Empagliflozin 10 MG TABLET PO (08:19)
[2025-02-02] MEDS: Primidone 50 MG TABLET 25 MG PO ×2 (08:19→19:51)
--- NOTE | 2025-02-02 12:11 | HO.PSYCHPN ---
Subjective Subjective Date of Service: 02/02/25 Reason For Visit: Anxiety, mood disorder, ASD Interim History: no change in presentation, no complaints or requests. calm, cooperative, pleasant enough. per staff, dep/anx 3. blunted. eating. taking meds. shaved and showered yesterday. slept 8 hours. Mental Status Exam Mental Status Exam Patient Appearance: Appropriate Patient Orientation: Person and Situation Level of Consciousness: Awake and Appropriate Patient Behavior: Guarded and Passive Mood Description: Withdrawn Affect Description: Constricted Patient Cognition Impaired: Yes Ability to Follow Directions: Good Speech Pattern: Clear Hallucinations: None Delusions: Not Present Thought Process: Distracted and Slowed Thinking Thought Content: positive for [place] and positive for Poverty of Content Judgement: Poor Diagnostics Vital Signs (24Hr): Vital Signs - 24 hr 02/01/25 20:00 02/02/25 07:55 Temperature 97.5 F 97.9 F Pulse Rate 75 74 Respiratory Rate 16 18 Blood Pressure 107/65 106/67 Pulse Oximetry 98 98 Oxygen Delivery Method Room Air Room Air BMI result Body Mass Index 27.5 Labs 10/28/24 09:10 01/28/25 08:39 Imaging Radiology Impressions: ITS Impressions Hip X-Ray 01/12/25 13:30 IMPRESSION: No evidence of fracture of the bilateral hips. Electronically signed by: Kaushal Soni MD 01/12/2025 01:54 PM EDT RP Cervical Spine CT 01/14/25 07:59 IMPRESSION: Multilevel cervical spondylosis without acute fracture or trauma-related listhesis. Fleischner guidelines were followed. Electronically signed by: Abe Griffin MD 01/14/2025 09:50 AM EDT RP Head CT 01/14/25 08:30 IMPRESSION: No acute intracranial abnormality. No fracture seen. Electronically signed by: Chidi Rodriguez MD 01/17/2025 01:08 PM EDT RP Hip/Pelvis X-Ray 01/14/25 09:10 IMPRESSION: No acute fracture or dislocation. Electronically signed by: Abe Griffin MD 01/14/2025 10:35 AM EDT RP Medications Medications Current Medications Acetaminophen (Acetaminophen 325 Mg Tablet) 650 mg PO Q6H PRN PRN Reason: pain scale (1-10) Benztropine Mesylate (Benztropine Mesylate 1 Mg Tablet) 1 mg PO BEDTIME PRN PRN Reason: Extrapyramidal Effects Diazepam (Diazepam 10 Mg/2 Ml Cartridge) 5 mg IM TID PRN PRN Reason: PO refusal. HOLD FOR SEDATION Last Admin: 12/21/24 10:22 Dose: 5 mg Diazepam (Diazepam 2 Mg Tablet) 4 mg PO TID DESIRAE Last Admin: 02/02/25 08:18 Dose: 4 mg Empagliflozin (Empagliflozin 10 Mg Tablet) 10 mg PO DAILY DESIRAE Last Admin: 02/02/25 08:19 Dose: 10 mg Lisinopril (Lisinopril 20 Mg Tablet) 20 mg PO DAILY [facility]; Protocol Last Admin: 02/02/25 08:18 Dose: 20 mg Metformin HCl (Metformin Hcl Er 500 Mg Tab.Er.24h) 1,000 mg PO DAILY DESIRAE Last Admin: 02/02/25 08:18 Dose: 1,000 mg Mirtazapine (Mirtazapine 30 Mg Tablet) 30 mg PO BEDTIME DESIRAE Last Admin: 02/01/25 20:18 Dose: 30 mg Nicotine Polacrilex (Nicotine Polacrilex 2 Mg Gum) 4 mg BUCCAL Q2H PRN PRN Reason: Nicotine Cravings Olanzapine (Olanzapine 10 Mg Tablet) 20 mg PO BEDTIME DESIRAE Last Admin: 02/01/25 20:17 Dose: 20 mg Olanzapine (Olanzapine Odt 10 Mg Tab.Rapdis) 10 mg TRANSLINGU DAILY DESIRAE Last Admin: 02/02/25 08:18 Dose: 10 mg Olanzapine (Olanzapine 10 Mg Vial) 10 mg IM BID PRN PRN Reason: PO refusal Last Admin: 12/21/24 10:22 Dose: 10 mg Olanzapine (Olanzapine Odt 10 Mg Tab.Rapdis) 10 mg TRANSLINGU BID PRN PRN Reason: agitation Last Admin: 01/14/25 12:16 Dose: 10 mg Oxcarbazepine (Oxcarbazepine 300 Mg Tablet) 300 mg PO BEDTIME DESIRAE Last Admin: 02/01/25 20:19 Dose: 300 mg Primidone (Primidone 50 Mg Tablet) 25 mg PO BID DESIRAE Last Admin: 02/02/25 08:19 Dose: 25 mg Sertraline HCl (Sertraline Hcl 100 Mg Tablet) 100 mg PO BEDTIME DESIRAE Last Admin: 02/01/25 20:19 Dose: 100 mg Trazodone HCl (Trazodone Hcl 50 Mg Tablet) 50 mg PO BEDTIME PRN PRN Reason: Insomnia Allergies Allergies Allergy/AdvReac Type Severity Reaction Status Date / Time No Known Allergies Allergy Verified 10/14/24 18:14 [No Known Allergies*] Assessment & Plan Assessment & Plan (1) Mood disorder: Status: Acute Code(s): F39 - Unspecified mood [affective] disorder (2) Autism spectrum disorder: Status: Acute Code(s): F84.0 - Autistic disorder (3) Dementia: Status: Acute Code(s): F03.90 - Unspecified dementia, unspecified severity, without behavioral disturbance, psychotic disturbance, mood disturbance, and anxiety Plan Humza was admitted for safety and stabilization. His presentation is very similar to his last admission psychiatrically about a year ago and that is why his caregivers wanted to get ahead of things before he decompensated further. Current medications were reviewed and maintained. Contacts to be made with his treaters next week. 10/17: Continue current regimen and plans 10/19: Continue current tx plan and regime. 10/21: Memantine 5 mg daily- [facility], memory sx Abilify 2 mg daily-augment to antidepressants currently being used. 10/22 continue current tx plan -pt confused 10/23 Continue trials, regime and plan. 10/24: Continue regime and plan of care. 10/25 Abilify increased up to 5 mg. 10/26 keep on same treatment 10/27/24 continues with many complaints, no clear insight into self- 10/28 continue same treatment 10/29 increase Namenda to 5 mg p.o. b.i.d. and change Depakote to Depakene. Depakote level on 13/02 as per blood work of yesterday 10/30/24 - in abilify inc olanzapine = continue depakene as he did take 5 capsules this am- prn olanzapine given - this afternoon for behaviors on unit- 10/31/24 wrote for liquid depakote option if refuses capsules, also got prn olanzapine for throwing self on floor 11/01 keep same treatment 11/02 increase Zyprexa to 20 mg p.o. q.h.s. 11/03 keep same treatment. 11/04 discontinue Depakote and start Trileptal 300 mg p.o. b.i.d.. Her healthcare proxy will bring a copy of that we are going to invoke it 11/06 increase olanzapine to 20mg po qhs and 10mg po daily. 11/07 continue tx. 12/04 continue tx. 12/05: no changes 12/06 continue tx. 12/12: continue plan of care 12/13: continue tx 12/19 continue current tx plan 12/25: appearing sedated, more of a falls risk, poorer ability to do ADLs. decrease trileptal dosing from 600 BID to 300 BID for now. 12/26: less sedated than yesterday, continue current mgmt, including 1:1, until attending can see pt in the morning. 12/30: continues less sedated. minimally interactive. continue current mgmt. 12/31: per HCP, not at baseline, over-sedated. begin valium taper. decrease valium 5 TID to 4 TID for now. per HCP and SW, HCP has been affirmed in court. IM back-up orders in place and to be enforced by nursing staff. no aggressive or agitated behaviors. 01/02: Continue current regimen and plans Plan 1. Continue with olanzapine 10 mg p.o. q.a.m. and 20 mg p.o. q.h.s., he refused p.o. he received olanzapine IM. 2. Continue with Valium 5 mg p.o. t.i.d. if he refuses he will get Valium IM. 3. We will encourage compliance. The patient had been noncompliant with sertraline, he remains dysphoric. 4. The patient has a healthcare proxy who was affirmed by court, and they want us to medicate him even if the patient does not want to be compliant. 5. At this moment the patient is slightly over-sedated with EPS but we will keep the same dose of antipsychotics since his violence has improved. 01/03/25 Continue plan of care Reassess treatment plan which includes IM medication patient has been much less aggressive than he has in the past Unclear discharge plan at this point 01/04/2025 Patient taking Valium and olanzapine regularly has IM prescribed if refuses intermittently taking medication for diabetes hypertension 01/05/25 Cont medicationhas been stabilizing try and d/c meds that are not esential simplify regimen 01/06/25 stop namenda monitor sugar / bp encourage med acceptance cont valium olanzapine 01/08/2025 Continue olanzapine Valium metformin try and taper and simplify medication as tolerated discharge planning monitor response to change in medication 01/09/25 Try and simplify med regimen d/c planning 01/11/2025 Patient generally more cooperative not agitated generally monitor blood sugar and blood pressure intermittently refuses some doses of metformin 01/12/25 Pt seen later in day seemed stable flat some balance problems noted lowwer trileptal and primidone ck ortho vs dailypt consult for balance 01/13/2025 Patient improving less reactive has not been aggressive more cooperative with treatment and medication. Discharge planning 01/14: fell this morning, per head/c-spine CT and pelvic XR, no osseus injuries. pt appears as at recent mental status. no complaints or requests other than for wheelchair. pt will have 1:1 for ambulation for now. continue current psychopharm mgmt. 01/15: Continue current management and treatment plan. 01/16: continue current management and treatment plan. 01/17 keep same treatment. 01/18 keep same treatment 01/19 keep same treatment 01/20 keep same treatment 01/21 keep same treatment 01/22: calm, cooperative, flat. no questions or complaints. stable presentation. continue current mgmt. 01/23: no change, continue current mgmt. 01/24: stable. continue current mgmt. reps from [facility] today. 01/25/2025 Patient in behavioral control vital signs stable generally accepting treatment continue discharge planning 01/26/2025 Patient generally cooperative seen in the milieu no aggression suicidality or her problematic behavior. Discharge planning strongly urged transition 01/27/2025 Patient continues to be generally stabilizing not combative agitated or threatening has remained generally calm seems safe for discharge planning much improved over time 01/28/2025 Patient seen psychiatric follow-up patient has significantly improved over the months he is calm cooperative seen watching television somewhat social at times not aggressive or combative 01/29 Continue current regime/plan. Improved. 01/31: stably improved. awaiting placement. continue current mgmt. 02/01: stable. continue current mgmt. awaiting placement. 02/02: no change in presentation or plan. Reason for continued inpatient stay Substantial Risk for: inability to function and rapid decompensation Time Spent With Patient Time: Total time managing care of this patient today ____ minutes.
[2025-02-02] MEDS: Mirtazapine 30 MG TABLET PO (19:53)
[2025-02-02] MEDS: OLANZapine 10 MG TABLET 20 MG PO (19:53)
[2025-02-02] MEDS: OXcarbazepine 300 MG TABLET PO (19:53)
[2025-02-02] MEDS: Sertraline HCL 100 MG TABLET PO (19:53)
[2025-02-02 20:00] VITALS: BP 102/67; PULSE 72; RESP 16; TEMP 36.3; O2SAT 99
[2025-02-03 07:00] VITALS: BMI 28.3
[2025-02-03 08:00] VITALS: BP 122/72; PULSE 107; RESP 16; TEMP 36.1; O2SAT 99
[2025-02-03] MEDS: metFORMIN HCl ER 500 MG TAB.ER.24H 1000 MG PO (08:25)
[2025-02-03] MEDS: Empagliflozin 10 MG TABLET PO (08:26)
[2025-02-03] MEDS: OLANZapine ODT 10 MG TAB.RAPDIS TRANSLINGU (08:26)
[2025-02-03] MEDS: lisinopriL 20 MG TABLET PO (08:26)
[2025-02-03] MEDS: diazePAM 2 MG TABLET 4 MG PO ×3 (08:26→19:53)
[2025-02-03] MEDS: Primidone 50 MG TABLET 25 MG PO ×2 (08:26→19:53)
--- NOTE | 2025-02-03 15:17 | P.PNPSI_ITS ---
Subjective Subjective Date of Service: 02/03/25 Reason For Visit: Anxiety, mood disorder, ASD Interim History: no change in presentation. constricted, pleasant. per staff, watching TV. taking meds. attended 1 group. slept 8 hours. Mental Status Exam Mental Status Exam Patient Appearance: Appropriate Patient Orientation: Person and Situation Level of Consciousness: Awake and Appropriate Patient Behavior: Guarded and Passive Mood Description: Withdrawn Affect Description: Constricted Patient Cognition Impaired: Yes Ability to Follow Directions: Good Speech Pattern: Clear Hallucinations: None Delusions: Not Present Thought Process: Distracted and Slowed Thinking Thought Content: positive for [place] and positive for Poverty of Content Judgement: Poor Diagnostics Vital Signs (24Hr): Vital Signs - 24 hr 02/02/25 20:00 02/03/25 08:00 Temperature 97.3 F 96.9 F Pulse Rate 72 107 H Respiratory Rate 16 16 Blood Pressure 102/67 122/72 Pulse Oximetry 99 99 Oxygen Delivery Method Room Air Room Air BMI result Body Mass Index 27.5 Labs 10/28/24 09:10 01/28/25 08:39 Imaging Radiology Impressions: ITS Impressions Hip X-Ray 01/12/25 13:30 IMPRESSION: No evidence of fracture of the bilateral hips. Electronically signed by: Kaushal Soni MD 01/12/2025 01:54 PM EDT RP Cervical Spine CT 01/14/25 07:59 IMPRESSION: Multilevel cervical spondylosis without acute fracture or trauma-related listhesis. Fleischner guidelines were followed. Electronically signed by: Abe Griffin MD 01/14/2025 09:50 AM EDT RP Head CT 01/14/25 08:30 IMPRESSION: No acute intracranial abnormality. No fracture seen. Electronically signed by: Chidi Rodriguez MD 01/17/2025 01:08 PM EDT RP Hip/Pelvis X-Ray 01/14/25 09:10 IMPRESSION: No acute fracture or dislocation. Electronically signed by: Abe Griffin MD 01/14/2025 10:35 AM EDT RP Medications Medications Current Medications Acetaminophen (Acetaminophen 325 Mg Tablet) 650 mg PO Q6H PRN PRN Reason: pain scale (1-10) Benztropine Mesylate (Benztropine Mesylate 1 Mg Tablet) 1 mg PO BEDTIME PRN PRN Reason: Extrapyramidal Effects Diazepam (Diazepam 10 Mg/2 Ml Cartridge) 5 mg IM TID PRN PRN Reason: PO refusal. HOLD FOR SEDATION Last Admin: 12/21/24 10:22 Dose: 5 mg Diazepam (Diazepam 2 Mg Tablet) 4 mg PO TID DESIRAE Last Admin: 02/03/25 15:06 Dose: 4 mg Empagliflozin (Empagliflozin 10 Mg Tablet) 10 mg PO DAILY DESIRAE Last Admin: 02/03/25 08:26 Dose: 10 mg Lisinopril (Lisinopril 20 Mg Tablet) 20 mg PO DAILY [facility]; Protocol Last Admin: 02/03/25 08:26 Dose: 20 mg Metformin HCl (Metformin Hcl Er 500 Mg Tab.Er.24h) 1,000 mg PO DAILY DESIRAE Last Admin: 02/03/25 08:25 Dose: 1,000 mg Mirtazapine (Mirtazapine 30 Mg Tablet) 30 mg PO BEDTIME DESIRAE Last Admin: 02/02/25 19:53 Dose: 30 mg Nicotine Polacrilex (Nicotine Polacrilex 2 Mg Gum) 4 mg BUCCAL Q2H PRN PRN Reason: Nicotine Cravings Olanzapine (Olanzapine 10 Mg Tablet) 20 mg PO BEDTIME DESIRAE Last Admin: 02/02/25 19:53 Dose: 20 mg Olanzapine (Olanzapine Odt 10 Mg Tab.Rapdis) 10 mg TRANSLINGU DAILY DESIRAE Last Admin: 02/03/25 08:26 Dose: 10 mg Olanzapine (Olanzapine 10 Mg Vial) 10 mg IM BID PRN PRN Reason: PO refusal Last Admin: 12/21/24 10:22 Dose: 10 mg Olanzapine (Olanzapine Odt 10 Mg Tab.Rapdis) 10 mg TRANSLINGU BID PRN PRN Reason: agitation Last Admin: 01/14/25 12:16 Dose: 10 mg Oxcarbazepine (Oxcarbazepine 300 Mg Tablet) 300 mg PO BEDTIME DESIRAE Last Admin: 02/02/25 19:53 Dose: 300 mg Primidone (Primidone 50 Mg Tablet) 25 mg PO BID DESIRAE Last Admin: 02/03/25 08:26 Dose: 25 mg Sertraline HCl (Sertraline Hcl 100 Mg Tablet) 100 mg PO BEDTIME DESIRAE Last Admin: 02/02/25 19:53 Dose: 100 mg Trazodone HCl (Trazodone Hcl 50 Mg Tablet) 50 mg PO BEDTIME PRN PRN Reason: Insomnia Allergies Allergies Allergy/AdvReac Type Severity Reaction Status Date / Time No Known Allergies Allergy Verified 10/14/24 18:14 [No Known Allergies*] Assessment & Plan Assessment & Plan (1) Mood disorder: Status: Acute Code(s): F39 - Unspecified mood [affective] disorder (2) Autism spectrum disorder: Status: Acute Code(s): F84.0 - Autistic disorder (3) Dementia: Status: Acute Code(s): F03.90 - Unspecified dementia, unspecified severity, without behavioral disturbance, psychotic disturbance, mood disturbance, and anxiety Plan Humza was admitted for safety and stabilization. His presentation is very similar to his last admission psychiatrically about a year ago and that is why his caregivers wanted to get ahead of things before he decompensated further. Current medications were reviewed and maintained. Contacts to be made with his treaters next week. 10/17: Continue current regimen and plans 10/19: Continue current tx plan and regime. 10/21: Memantine 5 mg daily- [facility], memory sx Abilify 2 mg daily-augment to antidepressants currently being used. 10/22 continue current tx plan -pt confused 10/23 Continue trials, regime and plan. 10/24: Continue regime and plan of care. 10/25 Abilify increased up to 5 mg. 10/26 keep on same treatment 10/27/24 continues with many complaints, no clear insight into self- 10/28 continue same treatment 10/29 increase Namenda to 5 mg p.o. b.i.d. and change Depakote to Depakene. Depakote level on 13/02 as per blood work of yesterday 10/30/24 - wv abilify inc olanzapine = continue depakene as he did take 5 capsules this am- prn olanzapine given - this afternoon for behaviors on unit- 10/31/24 wrote for liquid depakote option if refuses capsules, also got prn olanzapine for throwing self on floor 11/01 keep same treatment 11/02 increase Zyprexa to 20 mg p.o. q.h.s. 11/03 keep same treatment. 11/04 discontinue Depakote and start Trileptal 300 mg p.o. b.i.d.. Her healthcare proxy will bring a copy of that we are going to invoke it 11/06 increase olanzapine to 20mg po qhs and 10mg po daily. 11/07 continue tx. 12/04 continue tx. 12/05: no changes 12/06 continue tx. 12/12: continue plan of care 12/13: continue tx 12/19 continue current tx plan 12/25: appearing sedated, more of a falls risk, poorer ability to do ADLs. decrease trileptal dosing from 600 BID to 300 BID for now. 12/26: less sedated than yesterday, continue current mgmt, including 1:1, until attending can see pt in the morning. 12/30: continues less sedated. minimally interactive. continue current mgmt. 12/31: per HCP, not at baseline, over-sedated. begin valium taper. decrease valium 5 TID to 4 TID for now. per HCP and SW, HCP has been affirmed in court. IM back-up orders in place and to be enforced by nursing staff. no aggressive or agitated behaviors. 01/02: Continue current regimen and plans Plan 1. Continue with olanzapine 10 mg p.o. q.a.m. and 20 mg p.o. q.h.s., he refused p.o. he received olanzapine IM. 2. Continue with Valium 5 mg p.o. t.i.d. if he refuses he will get Valium IM. 3. We will encourage compliance. The patient had been noncompliant with sertraline, he remains dysphoric. 4. The patient has a healthcare proxy who was affirmed by court, and they want us to medicate him even if the patient does not want to be compliant. 5. At this moment the patient is slightly over-sedated with EPS but we will keep the same dose of antipsychotics since his violence has improved. 01/03/25 Continue plan of care Reassess treatment plan which includes IM medication patient has been much less aggressive than he has in the past Unclear discharge plan at this point 01/04/2025 Patient taking Valium and olanzapine regularly has IM prescribed if refuses intermittently taking medication for diabetes hypertension 01/05/25 Cont medicationhas been stabilizing try and d/c meds that are not esential simplify regimen 01/06/25 stop namenda monitor sugar / bp encourage med acceptance cont valium olanzapine 01/08/2025 Continue olanzapine Valium metformin try and taper and simplify medication as tolerated discharge planning monitor response to change in medication 01/09/25 Try and simplify med regimen d/c planning 01/11/2025 Patient generally more cooperative not agitated generally monitor blood sugar and blood pressure intermittently refuses some doses of metformin 01/12/25 Pt seen later in day seemed stable flat some balance problems noted lowwer trileptal and primidone ck ortho vs dailypt consult for balance 01/13/2025 Patient improving less reactive has not been aggressive more cooperative with treatment and medication. Discharge planning 01/14: fell this morning, per head/c-spine CT and pelvic XR, no osseus injuries. pt appears as at recent mental status. no complaints or requests other than for wheelchair. pt will have 1:1 for ambulation for now. continue current psychopharm mgmt. 01/15: Continue current management and treatment plan. 01/16: continue current management and treatment plan. 01/17 keep same treatment. 01/18 keep same treatment 01/19 keep same treatment 01/20 keep same treatment 01/21 keep same treatment 01/22: calm, cooperative, flat. no questions or complaints. stable presentation. continue current mgmt. 01/23: no change, continue current mgmt. 01/24: stable. continue current mgmt. reps from [facility] coming to [facility] pt for placement today. 01/25/2025 Patient in behavioral control vital signs stable generally accepting treatment continue discharge planning 01/26/2025 Patient generally cooperative seen in the milieu no aggression suicidality or her problematic behavior. Discharge planning strongly urged transition 01/27/2025 Patient continues to be generally stabilizing not combative agitated or threatening has remained generally calm seems safe for discharge planning much improved over time 01/28/2025 Patient seen psychiatric follow-up patient has significantly improved over the months he is calm cooperative seen watching television somewhat social at times not aggressive or combative 01/29 Continue current regime/plan. Improved. 01/31: stably improved. awaiting placement. continue current mgmt. 02/01: stable. continue current mgmt. awaiting placement. 02/02: no change in presentation or plan. 02/03: stable. continue current mgmt. Reason for continued inpatient stay Substantial Risk for: inability to function Time Spent With Patient Time: Total time managing care of this patient today ____ minutes.
[2025-02-03] MEDS: OLANZapine 10 MG TABLET 20 MG PO (19:54)
[2025-02-03] MEDS: Mirtazapine 30 MG TABLET PO (19:54)
[2025-02-03] MEDS: Sertraline HCL 100 MG TABLET PO (19:54)
[2025-02-03] MEDS: OXcarbazepine 300 MG TABLET PO (19:54)
[2025-02-03 20:00] VITALS: BP 112/71; PULSE 70; RESP 16; TEMP 36.3; O2SAT 99
[2025-02-04 07:59] LABS: Creatinine Clr Calc Pharmacy 75.9; Estimated Glomerular Filt Rate > 60
[2025-02-04 08:52] VITALS: BP 106/67; PULSE 78; RESP 16; TEMP 36.4; O2SAT 100
[2025-02-04] MEDS: lisinopriL 20 MG TABLET PO (08:54)
[2025-02-04] MEDS: Empagliflozin 10 MG TABLET PO (08:54)
[2025-02-04] MEDS: metFORMIN HCl ER 500 MG TAB.ER.24H 1000 MG PO (08:54)
[2025-02-04] MEDS: Primidone 50 MG TABLET 25 MG PO ×2 (08:55→20:45)
[2025-02-04] MEDS: diazePAM 2 MG TABLET 4 MG PO ×3 (08:55→20:44)
[2025-02-04] MEDS: OLANZapine ODT 10 MG TAB.RAPDIS TRANSLINGU (08:56)
--- NOTE | 2025-02-04 09:38 | HO.PSYCHPN ---
Subjective Subjective Date of Service: 02/04/25 Reason For Visit: Anxiety, mood disorder, ASD Subjective Notes: Conditional Voluntary Interim History: no change in presentation. constricted, pleasant. per staff, watching TV. taking meds. attended 1 group. slept 8 hours. No behavioral difficulties noted Medication Compliance: Yes Mental Status Exam Mental Status Exam Patient Appearance: Appropriate Patient Orientation: Person and Situation Level of Consciousness: Awake and Appropriate Patient Behavior: Guarded and Passive Mood Description: Withdrawn Affect Description: Constricted Patient Cognition Impaired: Yes Ability to Follow Directions: Good Speech Pattern: Clear Hallucinations: None Delusions: Not Present Thought Process: Distracted and Slowed Thinking Thought Content: positive for [place] and positive for Poverty of Content Judgement: Poor Diagnostics Vital Signs (24Hr): Vital Signs - 24 hr 02/03/25 20:00 02/04/25 08:52 Temperature 97.4 F 97.6 F Pulse Rate 70 78 Respiratory Rate 16 16 Blood Pressure 112/71 106/67 Pulse Oximetry 99 100 Oxygen Delivery Method Room Air Room Air BMI result Body Mass Index 28.3 Labs 10/28/24 09:10 02/04/25 07:33 Labs: Laboratory Results - last 48 hr 02/04/25 07:33 Creatinine 1.04 Estim Creat Clear Calc 75.9 Estimated GFR > 60 Imaging Radiology Impressions: ITS Impressions Hip X-Ray 01/12/25 13:30 IMPRESSION: No evidence of fracture of the bilateral hips. Electronically signed by: Kaushal Soni MD 01/12/2025 01:54 PM EDT RP Cervical Spine CT 01/14/25 07:59 IMPRESSION: Multilevel cervical spondylosis without acute fracture or trauma-related listhesis. Fleischner guidelines were followed. Electronically signed by: Abe Griffin MD 01/14/2025 09:50 AM EDT RP Head CT 01/14/25 08:30 IMPRESSION: No acute intracranial abnormality. No fracture seen. Electronically signed by: Chidi Rodriguez MD 01/17/2025 01:08 PM EDT RP Hip/Pelvis X-Ray 01/14/25 09:10 IMPRESSION: No acute fracture or dislocation. Electronically signed by: Abe Griffin MD 01/14/2025 10:35 AM EDT RP Medications Medications Current Medications Acetaminophen (Acetaminophen 325 Mg Tablet) 650 mg PO Q6H PRN PRN Reason: pain scale (1-10) Benztropine Mesylate (Benztropine Mesylate 1 Mg Tablet) 1 mg PO BEDTIME PRN PRN Reason: Extrapyramidal Effects Diazepam (Diazepam 10 Mg/2 Ml Cartridge) 5 mg IM TID PRN PRN Reason: PO refusal. HOLD FOR SEDATION Last Admin: 12/21/24 10:22 Dose: 5 mg Diazepam (Diazepam 2 Mg Tablet) 4 mg PO TID [facility] Last Admin: 02/04/25 08:55 Dose: 4 mg Empagliflozin (Empagliflozin 10 Mg Tablet) 10 mg PO DAILY [facility] Last Admin: 02/04/25 08:54 Dose: 10 mg Lisinopril (Lisinopril 20 Mg Tablet) 20 mg PO DAILY [facility]; Protocol Last Admin: 02/04/25 08:54 Dose: 20 mg Metformin HCl (Metformin Hcl Er 500 Mg Tab.Er.24h) 1,000 mg PO DAILY [facility] Last Admin: 02/04/25 08:54 Dose: 1,000 mg Mirtazapine (Mirtazapine 30 Mg Tablet) 30 mg PO BEDTIME DESIRAE Last Admin: 02/03/25 19:54 Dose: 30 mg Nicotine Polacrilex (Nicotine Polacrilex 2 Mg Gum) 4 mg BUCCAL Q2H PRN PRN Reason: Nicotine Cravings Olanzapine (Olanzapine 10 Mg Tablet) 20 mg PO BEDTIME [facility]IRAE Last Admin: 02/03/25 19:54 Dose: 20 mg Olanzapine (Olanzapine Odt 10 Mg Tab.Rapdis) 10 mg TRANSLINGU DAILY DESIRAE Last Admin: 02/04/25 08:56 Dose: 10 mg Olanzapine (Olanzapine 10 Mg Vial) 10 mg IM BID PRN PRN Reason: PO refusal Last Admin: 12/21/24 10:22 Dose: 10 mg Olanzapine (Olanzapine Odt 10 Mg Tab.Rapdis) 10 mg TRANSLINGU BID PRN PRN Reason: agitation Last Admin: 01/14/25 12:16 Dose: 10 mg Oxcarbazepine (Oxcarbazepine 300 Mg Tablet) 300 mg PO BEDTIME DESIRAE Last Admin: 02/03/25 19:54 Dose: 300 mg Primidone (Primidone 50 Mg Tablet) 25 mg PO BID [facility]AE Last Admin: 02/04/25 08:55 Dose: 25 mg Sertraline HCl (Sertraline Hcl 100 Mg Tablet) 100 mg PO BEDTIME DESIRAE Last Admin: 02/03/25 19:54 Dose: 100 mg Trazodone HCl (Trazodone Hcl 50 Mg Tablet) 50 mg PO BEDTIME PRN PRN Reason: Insomnia Allergies Allergies Allergy/AdvReac Type Severity Reaction Status Date / Time No Known Allergies Allergy Verified 10/14/24 18:14 [No Known Allergies*] Assessment & Plan Assessment & Plan (1) Mood disorder: Status: Acute Code(s): F39 - Unspecified mood [affective] disorder (2) Autism spectrum disorder: Status: Acute Code(s): F84.0 - Autistic disorder (3) Dementia: Status: Acute Code(s): F03.90 - Unspecified dementia, unspecified severity, without behavioral disturbance, psychotic disturbance, mood disturbance, and anxiety Plan Humza was admitted for safety and stabilization. His presentation is very similar to his last admission psychiatrically about a year ago and that is why his caregivers wanted to get ahead of things before he decompensated further. Current medications were reviewed and maintained. Contacts to be made with his treaters next week. 10/17: Continue current regimen and plans 10/19: Continue current tx plan and regime. 10/21: Memantine 5 mg daily- [facility], memory sx Abilify 2 mg daily-augment to antidepressants currently being used. 10/22 continue current tx plan -pt confused 10/23 Continue trials, regime and plan. 10/24: Continue regime and plan of care. 10/25 Abilify increased up to 5 mg. 10/26 keep on same treatment 10/27/24 continues with many complaints, no clear insight into self- 10/28 continue same treatment 10/29 increase Namenda to 5 mg p.o. b.i.d. and change Depakote to Depakene. Depakote level on 13/02 as per blood work of yesterday 10/30/24 - [facility] olanzapine = continue depakene as he did take 5 capsules this am- prn olanzapine given - this afternoon for behaviors on unit- 10/31/24 wrote for liquid depakote option if refuses capsules, also got prn olanzapine for throwing self on floor 11/01 keep same treatment 11/02 increase Zyprexa to 20 mg p.o. q.h.s. 11/03 keep same treatment. 11/04 discontinue Depakote and start Trileptal 300 mg p.o. b.i.d.. Her healthcare proxy will bring a copy of that we are going to invoke it 11/06 increase olanzapine to 20mg po qhs and 10mg po daily. 11/07 continue tx. 12/04 continue tx. 12/05: no changes 12/06 continue tx. 12/12: continue plan of care 12/13: continue tx 12/19 continue current tx plan 12/25: appearing sedated, more of a falls risk, poorer ability to do ADLs. decrease trileptal dosing from 600 BID to 300 BID for now. 12/26: less sedated than yesterday, continue current mgmt, including 1:1, until attending can see pt in the morning. 12/30: continues less sedated. minimally interactive. continue current mgmt. 12/31: per HCP, not at baseline, over-sedated. begin valium taper. decrease valium 5 TID to 4 TID for now. per HCP and SW, HCP has been affirmed in court. IM back-up orders in place and to be enforced by nursing staff. no aggressive or agitated behaviors. 01/02: Continue current regimen and plans Plan 1. Continue with olanzapine 10 mg p.o. q.a.m. and 20 mg p.o. q.h.s., he refused p.o. he received olanzapine IM. 2. Continue with Valium 5 mg p.o. t.i.d. if he refuses he will get Valium IM. 3. We will encourage compliance. The patient had been noncompliant with sertraline, he remains dysphoric. 4. The patient has a healthcare proxy who was affirmed by court, and they want us to medicate him even if the patient does not want to be compliant. 5. At this moment the patient is slightly over-sedated with EPS but we will keep the same dose of antipsychotics since his violence has improved. 01/03/25 Continue plan of care Reassess treatment plan which includes IM medication patient has been much less aggressive than he has in the past Unclear discharge plan at this point 01/04/2025 Patient taking Valium and olanzapine regularly has IM prescribed if refuses intermittently taking medication for diabetes hypertension 01/05/25 Cont medicationhas been stabilizing try and d/c meds that are not esential simplify regimen 01/06/25 stop namenda monitor sugar / bp encourage med acceptance cont valium olanzapine 01/08/2025 Continue olanzapine Valium metformin try and taper and simplify medication as tolerated discharge planning monitor response to change in medication 01/09/25 Try and simplify med regimen d/c planning 01/11/2025 Patient generally more cooperative not agitated generally monitor blood sugar and blood pressure intermittently refuses some doses of metformin 01/12/25 Pt seen later in day seemed stable flat some balance problems noted lowwer trileptal and primidone ck ortho vs dailypt consult for balance 01/13/2025 Patient improving less reactive has not been aggressive more cooperative with treatment and medication. Discharge planning 01/14: fell this morning, per head/c-spine CT and pelvic XR, no osseus injuries. pt appears as at recent mental status. no complaints or requests other than for wheelchair. pt will have 1:1 for ambulation for now. continue current psychopharm mgmt. 01/15: Continue current management and treatment plan. 01/16: continue current management and treatment plan. 01/17 keep same treatment. 01/18 keep same treatment 01/19 keep same treatment 01/20 keep same treatment 01/21 keep same treatment 01/22: calm, cooperative, flat. no questions or complaints. stable presentation. continue current mgmt. 01/23: no change, continue current mgmt. 01/24: stable. continue current mgmt. reps from [facility] coming to [facility] pt for placement today. 01/25/2025 Patient in behavioral control vital signs stable generally accepting treatment continue discharge planning 01/26/2025 Patient generally cooperative seen in the milieu no aggression suicidality or her problematic behavior. Discharge planning strongly urged transition 01/27/2025 Patient continues to be generally stabilizing not combative agitated or threatening has remained generally calm seems safe for discharge planning much improved over time 01/28/2025 Patient seen psychiatric follow-up patient has significantly improved over the months he is calm cooperative seen watching television somewhat social at times not aggressive or combative 01/29 Continue current regime/plan. Improved. 01/31: stably improved. awaiting placement. continue current mgmt. 02/01: stable. continue current mgmt. awaiting placement. 02/02: no change in presentation or plan. 02/03: stable. continue current mgmt. 02/04/2025 Patient seen psychiatric follow-up no current behavioral difficulties no current ability to place patient in a less restricted setting Reason for continued inpatient stay Substantial Risk for: inability to function and rapid decompensation Time Spent With Patient Time: Total time managing care of this patient today ____ minutes.
[2025-02-04] MEDS: Milk of Magnesia 30 ML ORAL.SUSP PO (14:59)
[2025-02-04 20:00] VITALS: BP 117/67; PULSE 100; RESP 18; TEMP 37.1; O2SAT 98
[2025-02-04] MEDS: OXcarbazepine 300 MG TABLET PO (20:44)
[2025-02-04] MEDS: OLANZapine 10 MG TABLET 20 MG PO (20:44)
[2025-02-04] MEDS: Sertraline HCL 100 MG TABLET PO (20:46)
[2025-02-04] MEDS: Mirtazapine 30 MG TABLET PO (20:47)
[2025-02-05 08:00] VITALS: BP 109/65; PULSE 74; RESP 18; TEMP 37; O2SAT 98
[2025-02-05] MEDS: Primidone 50 MG TABLET 25 MG PO ×2 (08:48→20:47)
[2025-02-05] MEDS: Empagliflozin 10 MG TABLET PO (08:48)
[2025-02-05] MEDS: lisinopriL 20 MG TABLET PO (08:49)
[2025-02-05] MEDS: metFORMIN HCl ER 500 MG TAB.ER.24H 1000 MG PO (08:49)
[2025-02-05] MEDS: OLANZapine ODT 10 MG TAB.RAPDIS TRANSLINGU (08:49)
[2025-02-05] MEDS: diazePAM 2 MG TABLET 4 MG PO (08:49)
--- NOTE | 2025-02-05 16:43 | P.PNPSI_ITS ---
Subjective Subjective Date of Service: 02/05/25 Reason For Visit: Anxiety, mood disorder, ASD Interim History: no change in presentation. per staff, no change, no issues. Mental Status Exam Mental Status Exam Patient Appearance: Appropriate Patient Orientation: Person and Situation Level of Consciousness: Awake and Appropriate Patient Behavior: Guarded and Passive Mood Description: Withdrawn Affect Description: Constricted Patient Cognition Impaired: Yes Ability to Follow Directions: Good Speech Pattern: Clear Hallucinations: None Delusions: Not Present Thought Process: Distracted and Slowed Thinking Thought Content: positive for [place] and positive for Poverty of Content Judgement: Poor Diagnostics Vital Signs (24Hr): Vital Signs - 24 hr 02/04/25 20:00 02/05/25 08:00 Temperature 98.8 F 98.6 F Pulse Rate 100 74 Respiratory Rate 18 18 Blood Pressure 117/67 109/65 Pulse Oximetry 98 98 Oxygen Delivery Method Room Air Room Air BMI result Body Mass Index 28.3 Labs 10/28/24 09:10 02/04/25 07:33 Labs: Laboratory Results - last 48 hr 02/04/25 07:33 Creatinine 1.04 Estim Creat Clear Calc 75.9 Estimated GFR > 60 Imaging Radiology Impressions: ITS Impressions Hip X-Ray 01/12/25 13:30 IMPRESSION: No evidence of fracture of the bilateral hips. Electronically signed by: Kaushal Soni MD 01/12/2025 01:54 PM EDT RP Cervical Spine CT 01/14/25 07:59 IMPRESSION: Multilevel cervical spondylosis without acute fracture or trauma-related listhesis. Fleischner guidelines were followed. Electronically signed by: Abe Griffin MD 01/14/2025 09:50 AM EDT RP Head CT 01/14/25 08:30 IMPRESSION: No acute intracranial abnormality. No fracture seen. Electronically signed by: Chidi Rodriguez MD 01/17/2025 01:08 PM EDT RP Hip/Pelvis X-Ray 01/14/25 09:10 IMPRESSION: No acute fracture or dislocation. Electronically signed by: Abe Griffin MD 01/14/2025 10:35 AM EDT RP Medications Medications Current Medications Acetaminophen (Acetaminophen 325 Mg Tablet) 650 mg PO Q6H PRN PRN Reason: pain scale (1-10) Benztropine Mesylate (Benztropine Mesylate 1 Mg Tablet) 1 mg PO BEDTIME PRN PRN Reason: Extrapyramidal Effects Diazepam (Diazepam 10 Mg/2 Ml Cartridge) 5 mg IM TID PRN PRN Reason: PO refusal. HOLD FOR SEDATION Last Admin: 12/21/24 10:22 Dose: 5 mg Empagliflozin (Empagliflozin 10 Mg Tablet) 10 mg PO DAILY [facility] Last Admin: 02/05/25 08:48 Dose: 10 mg Lisinopril (Lisinopril 20 Mg Tablet) 20 mg PO DAILY [facility]; Protocol Last Admin: 02/05/25 08:49 Dose: 20 mg Magnesium Hydroxide (Milk Of Magnesia 30 Ml Oral.Susp) 30 ml PO DAILY PRN PRN Reason: Constipation Last Admin: 02/04/25 14:59 Dose: 30 ml Metformin HCl (Metformin Hcl Er 500 Mg Tab.Er.24h) 1,000 mg PO DAILY [facility] Last Admin: 02/05/25 08:49 Dose: 1,000 mg Mirtazapine (Mirtazapine 30 Mg Tablet) 30 mg PO BEDTIME DESIRAE Last Admin: 02/04/25 20:47 Dose: 30 mg Nicotine Polacrilex (Nicotine Polacrilex 2 Mg Gum) 4 mg BUCCAL Q2H PRN PRN Reason: Nicotine Cravings Olanzapine (Olanzapine 10 Mg Tablet) 20 mg PO BEDTIME DESIRAE Last Admin: 02/04/25 20:44 Dose: 20 mg Olanzapine (Olanzapine 10 Mg Vial) 10 mg IM BID PRN PRN Reason: PO refusal Last Admin: 12/21/24 10:22 Dose: 10 mg Olanzapine (Olanzapine Odt 10 Mg Tab.Rapdis) 10 mg TRANSLINGU BID PRN PRN Reason: agitation Last Admin: 01/14/25 12:16 Dose: 10 mg Oxcarbazepine (Oxcarbazepine 300 Mg Tablet) 300 mg PO BEDTIME DESIRAE Last Admin: 02/04/25 20:44 Dose: 300 mg Primidone (Primidone 50 Mg Tablet) 25 mg PO BID DESIRAE Last Admin: 02/05/25 08:48 Dose: 25 mg Sertraline HCl (Sertraline Hcl 100 Mg Tablet) 100 mg PO BEDTIME DESIRAE Last Admin: 02/04/25 20:46 Dose: 100 mg Trazodone HCl (Trazodone Hcl 50 Mg Tablet) 50 mg PO BEDTIME PRN PRN Reason: Insomnia Allergies Allergies Allergy/AdvReac Type Severity Reaction Status Date / Time No Known Allergies Allergy Verified 10/14/24 18:14 [No Known Allergies*] Assessment & Plan Assessment & Plan (1) Mood disorder: Status: Acute Code(s): F39 - Unspecified mood [affective] disorder (2) Autism spectrum disorder: Status: Acute Code(s): F84.0 - Autistic disorder (3) Dementia: Status: Acute Code(s): F03.90 - Unspecified dementia, unspecified severity, without behavioral disturbance, psychotic disturbance, mood disturbance, and anxiety Plan Humza was admitted for safety and stabilization. His presentation is very similar to his last admission psychiatrically about a year ago and that is why his caregivers wanted to get ahead of things before he decompensated further. Current medications were reviewed and maintained. Contacts to be made with his treaters next week. 10/17: Continue current regimen and plans 10/19: Continue current tx plan and regime. 10/21: Memantine 5 mg daily- [facility], memory sx Abilify 2 mg daily-augment to antidepressants currently being used. 10/22 continue current tx plan -pt confused 10/23 Continue trials, regime and plan. 10/24: Continue regime and plan of care. 10/25 Abilify increased up to 5 mg. 10/26 keep on same treatment 10/27/24 continues with many complaints, no clear insight into self- 10/28 continue same treatment 10/29 increase Namenda to 5 mg p.o. b.i.d. and change Depakote to Depakene. Depakote level on 13/02 as per blood work of yesterday 10/30/24 - [facility] olanzapine = continue depakene as he did take 5 capsules this am- prn olanzapine given - this afternoon for behaviors on unit- 10/31/24 wrote for liquid depakote option if refuses capsules, also got prn olanzapine for throwing self on floor 11/01 keep same treatment 11/02 increase Zyprexa to 20 mg p.o. q.h.s. 11/03 keep same treatment. 11/04 discontinue Depakote and start Trileptal 300 mg p.o. b.i.d.. Her healthcare proxy will bring a copy of that we are going to invoke it 11/06 increase olanzapine to 20mg po qhs and 10mg po daily. 11/07 continue tx. 12/04 continue tx. 12/05: no changes 12/06 continue tx. 12/12: continue plan of care 12/13: continue tx 12/19 continue current tx plan 12/25: appearing sedated, more of a falls risk, poorer ability to do ADLs. decrease trileptal dosing from 600 BID to 300 BID for now. 12/26: less sedated than yesterday, continue current mgmt, including 1:1, until attending can see pt in the morning. 12/30: continues less sedated. minimally interactive. continue current mgmt. 12/31: per HCP, not at baseline, over-sedated. begin valium taper. decrease valium 5 TID to 4 TID for now. per HCP and SW, HCP has been affirmed in court. IM back-up orders in place and to be enforced by nursing staff. no aggressive or agitated behaviors. 01/02: Continue current regimen and plans Plan 1. Continue with olanzapine 10 mg p.o. q.a.m. and 20 mg p.o. q.h.s., he refused p.o. he received olanzapine IM. 2. Continue with Valium 5 mg p.o. t.i.d. if he refuses he will get Valium IM. 3. We will encourage compliance. The patient had been noncompliant with sertraline, he remains dysphoric. 4. The patient has a healthcare proxy who was affirmed by court, and they want us to medicate him even if the patient does not want to be compliant. 5. At this moment the patient is slightly over-sedated with EPS but we will keep the same dose of antipsychotics since his violence has improved. 01/03/25 Continue plan of care Reassess treatment plan which includes IM medication patient has been much less aggressive than he has in the past Unclear discharge plan at this point 01/04/2025 Patient taking Valium and olanzapine regularly has IM prescribed if refuses intermittently taking medication for diabetes hypertension 01/05/25 Cont medicationhas been stabilizing try and d/c meds that are not esential simplify regimen 01/06/25 stop namenda monitor sugar / bp encourage med acceptance cont valium olanzapine 01/08/2025 Continue olanzapine Valium metformin try and taper and simplify medication as tolerated discharge planning monitor response to change in medication 01/09/25 Try and simplify med regimen d/c planning 01/11/2025 Patient generally more cooperative not agitated generally monitor blood sugar and blood pressure intermittently refuses some doses of metformin 01/12/25 Pt seen later in day seemed stable flat some balance problems noted lowwer trileptal and primidone ck ortho vs dailypt consult for balance 01/13/2025 Patient improving less reactive has not been aggressive more cooperative with treatment and medication. Discharge planning 01/14: fell this morning, per head/c-spine CT and pelvic XR, no osseus injuries. pt appears as at recent mental status. no complaints or requests other than for wheelchair. pt will have 1:1 for ambulation for now. continue current psychopharm mgmt. 01/15: Continue current management and treatment plan. 01/16: continue current management and treatment plan. 01/17 keep same treatment. 01/18 keep same treatment 01/19 keep same treatment 01/20 keep same treatment 01/21 keep same treatment 01/22: calm, cooperative, flat. no questions or complaints. stable presentation. continue current mgmt. 01/23: no change, continue current mgmt. 01/24: stable. continue current mgmt. reps from [facility] coming to [facility] pt for placement today. 01/25/2025 Patient in behavioral control vital signs stable generally accepting treatment continue discharge planning 01/26/2025 Patient generally cooperative seen in the milieu no aggression suicidality or her problematic behavior. Discharge planning strongly urged transition 01/27/2025 Patient continues to be generally stabilizing not combative agitated or threatening has remained generally calm seems safe for discharge planning much improved over time 01/28/2025 Patient seen psychiatric follow-up patient has significantly improved over the months he is calm cooperative seen watching television somewhat social at times not aggressive or combative 01/29 Continue current regime/plan. Improved. 01/31: stably improved. awaiting placement. continue current mgmt. 02/01: stable. continue current mgmt. awaiting placement. 02/02: no change in presentation or plan. 02/03: stable. continue current mgmt. 02/05: no change in presentation. continue current mgmt. Reason for continued inpatient stay Substantial Risk for: inability to function and rapid decompensation Time Spent With Patient Time: Total time managing care of this patient today ____ minutes.
[2025-02-05 20:00] VITALS: BP 99/63; PULSE 65; RESP 16; TEMP 36.8; O2SAT 98
[2025-02-05] MEDS: Sertraline HCL 100 MG TABLET PO (20:47)
[2025-02-05] MEDS: OLANZapine 10 MG TABLET 20 MG PO (20:47)
[2025-02-05] MEDS: OXcarbazepine 300 MG TABLET PO (20:47)
[2025-02-05] MEDS: Mirtazapine 30 MG TABLET PO (20:47)
[2025-02-06 07:55] VITALS: BP 130/74; PULSE 74; RESP 18; TEMP 36.4; O2SAT 100
[2025-02-06] MEDS: metFORMIN HCl ER 500 MG TAB.ER.24H 1000 MG PO (08:09)
[2025-02-06] MEDS: Primidone 50 MG TABLET 25 MG PO ×2 (08:09→20:56)
[2025-02-06] MEDS: lisinopriL 20 MG TABLET PO (08:10)
[2025-02-06] MEDS: Empagliflozin 10 MG TABLET PO (08:10)
--- NOTE | 2025-02-06 08:36 | HO.PSYCHPN ---
Subjective Subjective Date of Service: 02/06/25 Reason For Visit: Anxiety, mood disorder, ASD Interim History: no change in presentation. in milieu having breakfast. no questions or complaints. per staff, no issues. Mental Status Exam Mental Status Exam Patient Appearance: Appropriate Patient Orientation: Person and Situation Level of Consciousness: Awake and Appropriate Patient Behavior: Guarded and Passive Mood Description: Withdrawn Affect Description: Constricted Patient Cognition Impaired: Yes Ability to Follow Directions: Good Speech Pattern: Clear Hallucinations: None Delusions: Not Present Thought Process: Distracted and Slowed Thinking Thought Content: positive for [place] and positive for Poverty of Content Judgement: Poor Diagnostics Vital Signs (24Hr): Vital Signs - 24 hr 02/05/25 20:00 Temperature 98.2 F Pulse Rate 65 Respiratory Rate 16 Blood Pressure 99/63 Pulse Oximetry 98 Oxygen Delivery Method Room Air BMI result Body Mass Index 28.3 Labs 10/28/24 09:10 02/04/25 07:33 Imaging Radiology Impressions: ITS Impressions Hip X-Ray 01/12/25 13:30 IMPRESSION: No evidence of fracture of the bilateral hips. Electronically signed by: Kaushal Soni MD 01/12/2025 01:54 PM EDT RP Cervical Spine CT 01/14/25 07:59 IMPRESSION: Multilevel cervical spondylosis without acute fracture or trauma-related listhesis. Fleischner guidelines were followed. Electronically signed by: Abe Griffin MD 01/14/2025 09:50 AM EDT RP Head CT 01/14/25 08:30 IMPRESSION: No acute intracranial abnormality. No fracture seen. Electronically signed by: Chidi Rodriguez MD 01/17/2025 01:08 PM EDT RP Hip/Pelvis X-Ray 01/14/25 09:10 IMPRESSION: No acute fracture or dislocation. Electronically signed by: Abe Griffin MD 01/14/2025 10:35 AM EDT RP Medications Medications Current Medications Acetaminophen (Acetaminophen 325 Mg Tablet) 650 mg PO Q6H PRN PRN Reason: pain scale (1-10) Benztropine Mesylate (Benztropine Mesylate 1 Mg Tablet) 1 mg PO BEDTIME PRN PRN Reason: Extrapyramidal Effects Diazepam (Diazepam 10 Mg/2 Ml Cartridge) 5 mg IM TID PRN PRN Reason: PO refusal. HOLD FOR SEDATION Last Admin: 12/21/24 10:22 Dose: 5 mg Empagliflozin (Empagliflozin 10 Mg Tablet) 10 mg PO DAILY DESIRAE Last Admin: 02/06/25 08:10 Dose: 10 mg Lisinopril (Lisinopril 20 Mg Tablet) 20 mg PO DAILY DESIRAE; Protocol Last Admin: 02/06/25 08:10 Dose: 20 mg Magnesium Hydroxide (Milk Of Magnesia 30 Ml Oral.Susp) 30 ml PO DAILY PRN PRN Reason: Constipation Last Admin: 02/04/25 14:59 Dose: 30 ml Metformin HCl (Metformin Hcl Er 500 Mg Tab.Er.24h) 1,000 mg PO DAILY DESIRAE Last Admin: 02/06/25 08:09 Dose: 1,000 mg Mirtazapine (Mirtazapine 30 Mg Tablet) 30 mg PO BEDTIME DESIRAE Last Admin: 02/05/25 20:47 Dose: 30 mg Nicotine Polacrilex (Nicotine Polacrilex 2 Mg Gum) 4 mg BUCCAL Q2H PRN PRN Reason: Nicotine Cravings Olanzapine (Olanzapine 10 Mg Tablet) 20 mg PO BEDTIME DESIRAE Last Admin: 02/05/25 20:47 Dose: 20 mg Olanzapine (Olanzapine 10 Mg Vial) 10 mg IM BID PRN PRN Reason: PO refusal Last Admin: 12/21/24 10:22 Dose: 10 mg Olanzapine (Olanzapine Odt 10 Mg Tab.Rapdis) 10 mg TRANSLINGU BID PRN PRN Reason: agitation Last Admin: 01/14/25 12:16 Dose: 10 mg Oxcarbazepine (Oxcarbazepine 300 Mg Tablet) 300 mg PO BEDTIME DESIRAE Last Admin: 02/05/25 20:47 Dose: 300 mg Primidone (Primidone 50 Mg Tablet) 25 mg PO BID DESIRAE Last Admin: 02/06/25 08:09 Dose: 25 mg Sertraline HCl (Sertraline Hcl 100 Mg Tablet) 100 mg PO BEDTIME DESIRAE Last Admin: 02/05/25 20:47 Dose: 100 mg Trazodone HCl (Trazodone Hcl 50 Mg Tablet) 50 mg PO BEDTIME PRN PRN Reason: Insomnia Allergies Allergies Allergy/AdvReac Type Severity Reaction Status Date / Time No Known Allergies Allergy Verified 10/14/24 18:14 [No Known Allergies*] Assessment & Plan Assessment & Plan (1) Mood disorder: Status: Acute Code(s): F39 - Unspecified mood [affective] disorder (2) Autism spectrum disorder: Status: Acute Code(s): F84.0 - Autistic disorder (3) Dementia: Status: Acute Code(s): F03.90 - Unspecified dementia, unspecified severity, without behavioral disturbance, psychotic disturbance, mood disturbance, and anxiety Plan Humza was admitted for safety and stabilization. His presentation is very similar to his last admission psychiatrically about a year ago and that is why his caregivers wanted to get ahead of things before he decompensated further. Current medications were reviewed and maintained. Contacts to be made with his treaters next week. 10/17: Continue current regimen and plans 10/19: Continue current tx plan and regime. 10/21: Memantine 5 mg daily- [facility], memory sx Abilify 2 mg daily-augment to antidepressants currently being used. 10/22 continue current tx plan -pt confused 10/23 Continue trials, regime and plan. 10/24: Continue regime and plan of care. 10/25 Abilify increased up to 5 mg. 10/26 keep on same treatment 10/27/24 continues with many complaints, no clear insight into self- 10/28 continue same treatment 10/29 increase Namenda to 5 mg p.o. b.i.d. and change Depakote to Depakene. Depakote level on 13/02 as per blood work of yesterday 10/30/24 - ms [employer] olanzapine = continue depakene as he did take 5 capsules this am- prn olanzapine given - this afternoon for behaviors on unit- 10/31/24 wrote for liquid depakote option if refuses capsules, also got prn olanzapine for throwing self on floor 11/01 keep same treatment 11/02 increase Zyprexa to 20 mg p.o. q.h.s. 11/03 keep same treatment. 11/04 discontinue Depakote and start Trileptal 300 mg p.o. b.i.d.. Her healthcare proxy will bring a copy of that we are going to invoke it 11/06 increase olanzapine to 20mg po qhs and 10mg po daily. 11/07 continue tx. 12/04 continue tx. 12/05: no changes 12/06 continue tx. 12/12: continue plan of care 12/13: continue tx 12/19 continue current tx plan 12/25: appearing sedated, more of a falls risk, poorer ability to do ADLs. decrease trileptal dosing from 600 BID to 300 BID for now. 12/26: less sedated than yesterday, continue current mgmt, including 1:1, until attending can see pt in the morning. 12/30: continues less sedated. minimally interactive. continue current mgmt. 12/31: per HCP, not at baseline, over-sedated. begin valium taper. decrease valium 5 TID to 4 TID for now. per HCP and SW, HCP has been affirmed in court. IM back-up orders in place and to be enforced by nursing staff. no aggressive or agitated behaviors. 01/02: Continue current regimen and plans Plan 1. Continue with olanzapine 10 mg p.o. q.a.m. and 20 mg p.o. q.h.s., he refused p.o. he received olanzapine IM. 2. Continue with Valium 5 mg p.o. t.i.d. if he refuses he will get Valium IM. 3. We will encourage compliance. The patient had been noncompliant with sertraline, he remains dysphoric. 4. The patient has a healthcare proxy who was affirmed by court, and they want us to medicate him even if the patient does not want to be compliant. 5. At this moment the patient is slightly over-sedated with EPS but we will keep the same dose of antipsychotics since his violence has improved. 01/03/25 Continue plan of care Reassess treatment plan which includes IM medication patient has been much less aggressive than he has in the past Unclear discharge plan at this point 01/04/2025 Patient taking Valium and olanzapine regularly has IM prescribed if refuses intermittently taking medication for diabetes hypertension 01/05/25 Cont medicationhas been stabilizing try and d/c meds that are not esential simplify regimen 01/06/25 stop namenda monitor sugar / bp encourage med acceptance cont valium olanzapine 01/08/2025 Continue olanzapine Valium metformin try and taper and simplify medication as tolerated discharge planning monitor response to change in medication 01/09/25 Try and simplify med regimen d/c planning 01/11/2025 Patient generally more cooperative not agitated generally monitor blood sugar and blood pressure intermittently refuses some doses of metformin 01/12/25 Pt seen later in day seemed stable flat some balance problems noted lowwer trileptal and primidone ck ortho vs dailypt consult for balance 01/13/2025 Patient improving less reactive has not been aggressive more cooperative with treatment and medication. Discharge planning 01/14: fell this morning, per head/c-spine CT and pelvic XR, no osseus injuries. pt appears as at recent mental status. no complaints or requests other than for wheelchair. pt will have 1:1 for ambulation for now. continue current psychopharm mgmt. 01/15: Continue current management and treatment plan. 01/16: continue current management and treatment plan. 01/17 keep same treatment. 01/18 keep same treatment 01/19 keep same treatment 01/20 keep same treatment 01/21 keep same treatment 01/22: calm, cooperative, flat. no questions or complaints. stable presentation. continue current mgmt. 01/23: no change, continue current mgmt. 01/24: stable. continue current mgmt. reps from [facility] coming to [facility] pt for placement today. 01/25/2025 Patient in behavioral control vital signs stable generally accepting treatment continue discharge planning 01/26/2025 Patient generally cooperative seen in the milieu no aggression suicidality or her problematic behavior. Discharge planning strongly urged transition 01/27/2025 Patient continues to be generally stabilizing not combative agitated or threatening has remained generally calm seems safe for discharge planning much improved over time 01/28/2025 Patient seen psychiatric follow-up patient has significantly improved over the months he is calm cooperative seen watching television somewhat social at times not aggressive or combative 01/29 Continue current regime/plan. Improved. 01/31: stably improved. awaiting placement. continue current mgmt. 02/01: stable. continue current mgmt. awaiting placement. 02/02: no change in presentation or plan. 02/03: stable. continue current mgmt. 02/04/2025 Patient seen psychiatric follow-up no current behavioral difficulties no current ability to place patient in a less restricted setting 02/06: no change in presentation. continue current mgmt. Reason for continued inpatient stay Substantial Risk for: inability to function and rapid decompensation Time Spent With Patient Time: Total time managing care of this patient today ____ minutes.
[2025-02-06 20:00] VITALS: BP 100/66; PULSE 67; RESP 16; TEMP 36.2; O2SAT 99
[2025-02-06] MEDS: Mirtazapine 30 MG TABLET PO (20:57)
[2025-02-06] MEDS: Sertraline HCL 100 MG TABLET PO (20:57)
[2025-02-06] MEDS: OLANZapine 10 MG TABLET 20 MG PO (20:57)
[2025-02-06] MEDS: OXcarbazepine 300 MG TABLET PO (20:57)
[2025-02-07 07:55] VITALS: BP 116/67; PULSE 75; RESP 18; TEMP 36.9; O2SAT 97
[2025-02-07] MEDS: Primidone 50 MG TABLET 25 MG PO ×2 (08:08→20:41)
[2025-02-07] MEDS: lisinopriL 20 MG TABLET PO (08:09)
[2025-02-07] MEDS: metFORMIN HCl ER 500 MG TAB.ER.24H 1000 MG PO (08:09)
[2025-02-07] MEDS: Empagliflozin 10 MG TABLET PO (08:10)
--- NOTE | 2025-02-07 16:21 | P.PNPSI_ITS ---
Subjective Subjective Date of Service: 02/07/25 Reason For Visit: Anxiety, mood disorder, ASD Subjective Notes: Conditional Voluntary Healthcare Proxy: Yes Interim History: pt cooperative out in community engaged no current complaints Medication Compliance: Yes Mental Status Exam Mental Status Exam Patient Appearance: Appropriate Patient Orientation: Person and Situation Level of Consciousness: Awake and Appropriate Patient Behavior: Guarded and Passive Mood Description: Withdrawn Affect Description: Constricted Patient Cognition Impaired: Yes Ability to Follow Directions: Good Speech Pattern: Clear Hallucinations: None Delusions: Not Present Thought Process: Distracted and Slowed Thinking Thought Content: positive for [place] and positive for Poverty of Content Judgement: Poor Diagnostics Vital Signs (24Hr): Vital Signs - 24 hr 02/06/25 20:00 02/07/25 07:55 Temperature 97.2 F 98.4 F Pulse Rate 67 75 Respiratory Rate 16 18 Blood Pressure 100/66 116/67 Pulse Oximetry 99 97 Oxygen Delivery Method Room Air Room Air BMI result Body Mass Index 28.3 Labs 10/28/24 09:10 02/04/25 07:33 Imaging Radiology Impressions: ITS Impressions Hip X-Ray 01/12/25 13:30 IMPRESSION: No evidence of fracture of the bilateral hips. Electronically signed by: Kaushal Soni MD 01/12/2025 01:54 PM EDT RP Cervical Spine CT 01/14/25 07:59 IMPRESSION: Multilevel cervical spondylosis without acute fracture or trauma-related listhesis. Fleischner guidelines were followed. Electronically signed by: Abe Griffin MD 01/14/2025 09:50 AM EDT RP Head CT 01/14/25 08:30 IMPRESSION: No acute intracranial abnormality. No fracture seen. Electronically signed by: Chidi Rodriguez MD 01/17/2025 01:08 PM EDT RP Hip/Pelvis X-Ray 01/14/25 09:10 IMPRESSION: No acute fracture or dislocation. Electronically signed by: Abe Griffin MD 01/14/2025 10:35 AM EDT RP Medications Medications Current Medications Acetaminophen (Acetaminophen 325 Mg Tablet) 650 mg PO Q6H PRN PRN Reason: pain scale (1-10) Benztropine Mesylate (Benztropine Mesylate 1 Mg Tablet) 1 mg PO BEDTIME PRN PRN Reason: Extrapyramidal Effects Diazepam (Diazepam 10 Mg/2 Ml Cartridge) 5 mg IM TID PRN PRN Reason: PO refusal. HOLD FOR SEDATION Last Admin: 12/21/24 10:22 Dose: 5 mg Empagliflozin (Empagliflozin 10 Mg Tablet) 10 mg PO DAILY DESIRAE Last Admin: 02/07/25 08:10 Dose: 10 mg Lisinopril (Lisinopril 20 Mg Tablet) 20 mg PO DAILY DESIRAE; Protocol Last Admin: 02/07/25 08:09 Dose: 20 mg Magnesium Hydroxide (Milk Of Magnesia 30 Ml Oral.Susp) 30 ml PO DAILY PRN PRN Reason: Constipation Last Admin: 02/04/25 14:59 Dose: 30 ml Metformin HCl (Metformin Hcl Er 500 Mg Tab.Er.24h) 1,000 mg PO DAILY DESIRAE Last Admin: 02/07/25 08:09 Dose: 1,000 mg Mirtazapine (Mirtazapine 30 Mg Tablet) 30 mg PO BEDTIME DESIRAE Last Admin: 02/06/25 20:57 Dose: 30 mg Nicotine Polacrilex (Nicotine Polacrilex 2 Mg Gum) 4 mg BUCCAL Q2H PRN PRN Reason: Nicotine Cravings Olanzapine (Olanzapine 10 Mg Tablet) 20 mg PO BEDTIME DESIRAE Last Admin: 02/06/25 20:57 Dose: 20 mg Olanzapine (Olanzapine 10 Mg Vial) 10 mg IM BID PRN PRN Reason: PO refusal Last Admin: 12/21/24 10:22 Dose: 10 mg Olanzapine (Olanzapine Odt 10 Mg Tab.Rapdis) 10 mg TRANSLINGU BID PRN PRN Reason: agitation Last Admin: 01/14/25 12:16 Dose: 10 mg Oxcarbazepine (Oxcarbazepine 300 Mg Tablet) 300 mg PO BEDTIME DESIRAE Last Admin: 02/06/25 20:57 Dose: 300 mg Primidone (Primidone 50 Mg Tablet) 25 mg PO BID DESIRAE Last Admin: 02/07/25 08:08 Dose: 25 mg Sertraline HCl (Sertraline Hcl 100 Mg Tablet) 100 mg PO BEDTIME DESIRAE Last Admin: 02/06/25 20:57 Dose: 100 mg Trazodone HCl (Trazodone Hcl 50 Mg Tablet) 50 mg PO BEDTIME PRN PRN Reason: Insomnia Allergies Allergies Allergy/AdvReac Type Severity Reaction Status Date / Time No Known Allergies Allergy Verified 10/14/24 18:14 [No Known Allergies*] Assessment & Plan Assessment & Plan (1) Mood disorder: Status: Acute Code(s): F39 - Unspecified mood [affective] disorder (2) Autism spectrum disorder: Status: Acute Code(s): F84.0 - Autistic disorder (3) Dementia: Status: Acute Code(s): F03.90 - Unspecified dementia, unspecified severity, without behavioral disturbance, psychotic disturbance, mood disturbance, and anxiety Plan Humza was admitted for safety and stabilization. His presentation is very similar to his last admission psychiatrically about a year ago and that is why his caregivers wanted to get ahead of things before he decompensated further. Current medications were reviewed and maintained. Contacts to be made with his treaters next week. 10/17: Continue current regimen and plans 10/19: Continue current tx plan and regime. 10/21: Memantine 5 mg daily- [facility], memory sx Abilify 2 mg daily-augment to antidepressants currently being used. 10/22 continue current tx plan -pt confused 10/23 Continue trials, regime and plan. 10/24: Continue regime and plan of care. 10/25 Abilify increased up to 5 mg. 10/26 keep on same treatment 10/27/24 continues with many complaints, no clear insight into self- 10/28 continue same treatment 10/29 increase Namenda to 5 mg p.o. b.i.d. and change Depakote to Depakene. Depakote level on 13/02 as per blood work of yesterday 10/30/24 - nm [facility] olanzapine = continue depakene as he did take 5 capsules this am- prn olanzapine given - this afternoon for behaviors on unit- 10/31/24 wrote for liquid depakote option if refuses capsules, also got prn olanzapine for throwing self on floor 11/01 keep same treatment 11/02 increase Zyprexa to 20 mg p.o. q.h.s. 11/03 keep same treatment. 11/04 discontinue Depakote and start Trileptal 300 mg p.o. b.i.d.. Her healthcare proxy will bring a copy of that we are going to invoke it 11/06 increase olanzapine to 20mg po qhs and 10mg po daily. 11/07 continue tx. 12/04 continue tx. 12/05: no changes 12/06 continue tx. 12/12: continue plan of care 12/13: continue tx 12/19 continue current tx plan 12/25: appearing sedated, more of a falls risk, poorer ability to do ADLs. decrease trileptal dosing from 600 BID to 300 BID for now. 12/26: less sedated than yesterday, continue current mgmt, including 1:1, until attending can see pt in the morning. 12/30: continues less sedated. minimally interactive. continue current mgmt. 12/31: per HCP, not at baseline, over-sedated. begin valium taper. decrease valium 5 TID to 4 TID for now. per HCP and SW, HCP has been affirmed in court. IM back-up orders in place and to be enforced by nursing staff. no aggressive or agitated behaviors. 01/02: Continue current regimen and plans Plan 1. Continue with olanzapine 10 mg p.o. q.a.m. and 20 mg p.o. q.h.s., he refused p.o. he received olanzapine IM. 2. Continue with Valium 5 mg p.o. t.i.d. if he refuses he will get Valium IM. 3. We will encourage compliance. The patient had been noncompliant with sertraline, he remains dysphoric. 4. The patient has a healthcare proxy who was affirmed by court, and they want us to medicate him even if the patient does not want to be compliant. 5. At this moment the patient is slightly over-sedated with EPS but we will keep the same dose of antipsychotics since his violence has improved. 01/03/25 Continue plan of care Reassess treatment plan which includes IM medication patient has been much less aggressive than he has in the past Unclear discharge plan at this point 01/04/2025 Patient taking Valium and olanzapine regularly has IM prescribed if refuses intermittently taking medication for diabetes hypertension 01/05/25 Cont medicationhas been stabilizing try and d/c meds that are not esential simplify regimen 01/06/25 stop namenda monitor sugar / bp encourage med acceptance cont valium olanzapine 01/08/2025 Continue olanzapine Valium metformin try and taper and simplify medication as tolerated discharge planning monitor response to change in medication 01/09/25 Try and simplify med regimen d/c planning 01/11/2025 Patient generally more cooperative not agitated generally monitor blood sugar and blood pressure intermittently refuses some doses of metformin 01/12/25 Pt seen later in day seemed stable flat some balance problems noted lowwer trileptal and primidone ck ortho vs dailypt consult for balance 01/13/2025 Patient improving less reactive has not been aggressive more cooperative with treatment and medication. Discharge planning 01/14: fell this morning, per head/c-spine CT and pelvic XR, no osseus injuries. pt appears as at recent mental status. no complaints or requests other than for wheelchair. pt will have 1:1 for ambulation for now. continue current psychopharm mgmt. 01/15: Continue current management and treatment plan. 01/16: continue current management and treatment plan. 01/17 keep same treatment. 01/18 keep same treatment 01/19 keep same treatment 01/20 keep same treatment 01/21 keep same treatment 01/22: calm, cooperative, flat. no questions or complaints. stable presentation. continue current mgmt. 01/23: no change, continue current mgmt. 01/24: stable. continue current mgmt. reps from [facility] coming to [facility] pt for placement today. 01/25/2025 Patient in behavioral control vital signs stable generally accepting treatment continue discharge planning 01/26/2025 Patient generally cooperative seen in the milieu no aggression suicidality or her problematic behavior. Discharge planning strongly urged transition 01/27/2025 Patient continues to be generally stabilizing not combative agitated or threatening has remained generally calm seems safe for discharge planning much improved over time 01/28/2025 Patient seen psychiatric follow-up patient has significantly improved over the months he is calm cooperative seen watching television somewhat social at times not aggressive or combative 01/29 Continue current regime/plan. Improved. 01/31: stably improved. awaiting placement. continue current mgmt. 02/01: stable. continue current mgmt. awaiting placement. 02/02: no change in presentation or plan. 02/03: stable. continue current mgmt. 02/04/2025 Patient seen psychiatric follow-up no current behavioral difficulties no current ability to place patient in a less restricted setting 02/06: no change in presentation. continue current mgmt. 02/07/25 cont d/c planning pt has been tentatively accepted no less restrictive setting currently available Reason for continued inpatient stay Substantial Risk for: inability to function and rapid decompensation Time Spent With Patient Time: Total time managing care of this patient today ____ minutes.
[2025-02-07 20:00] VITALS: BP 99/62; PULSE 69; RESP 18; TEMP 36.2; O2SAT 96
[2025-02-07] MEDS: OXcarbazepine 300 MG TABLET PO (20:40)
[2025-02-07] MEDS: OLANZapine 10 MG TABLET 20 MG PO (20:40)
[2025-02-07] MEDS: Mirtazapine 30 MG TABLET PO (20:40)
[2025-02-07] MEDS: Sertraline HCL 100 MG TABLET PO (20:42)
[2025-02-08 07:55] VITALS: BP 128/65; PULSE 75; RESP 18; TEMP 36; O2SAT 98
[2025-02-08] MEDS: Primidone 50 MG TABLET 25 MG PO ×2 (08:09→19:31)
[2025-02-08] MEDS: lisinopriL 20 MG TABLET PO (08:09)
[2025-02-08] MEDS: Empagliflozin 10 MG TABLET PO (08:09)
[2025-02-08] MEDS: metFORMIN HCl ER 500 MG TAB.ER.24H 1000 MG PO (08:09)
[2025-02-08 19:27] VITALS: BP 122/71; PULSE 65; RESP 16; TEMP 36.2; O2SAT 96
[2025-02-08] MEDS: Mirtazapine 30 MG TABLET PO (19:31)
[2025-02-08] MEDS: Sertraline HCL 100 MG TABLET PO (19:31)
[2025-02-08] MEDS: OXcarbazepine 300 MG TABLET PO (19:31)
[2025-02-08] MEDS: OLANZapine 10 MG TABLET 20 MG PO (19:31)
--- NOTE | 2025-02-08 22:33 | HO.PSYCHPN ---
Subjective Subjective Date of Service: 02/14/25 Reason For Visit: Anxiety, mood disorder, ASD Subjective Notes: Conditional Voluntary Healthcare Proxy: Yes Interim History: Patient seen psychiatric follow-up case reviewed with treatment staff patient remains in discharge planning mode Unable to be discharged at this time Medication Compliance: Yes Mental Status Exam Mental Status Exam Patient Appearance: Appropriate Patient Orientation: Person and Situation Level of Consciousness: Awake and Appropriate Patient Behavior: Guarded and Passive Mood Description: Withdrawn Affect Description: Constricted Patient Cognition Impaired: Yes Ability to Follow Directions: Good Speech Pattern: Clear Hallucinations: None Delusions: Not Present Thought Process: Distracted and Slowed Thinking Thought Content: positive for [place] and positive for Poverty of Content Judgement: Poor Diagnostics Vital Signs (24Hr): Vital Signs - 24 hr 02/08/25 07:55 02/08/25 19:27 Temperature 96.8 F 97.2 F Pulse Rate 75 65 Respiratory Rate 18 16 Blood Pressure 128/65 122/71 Pulse Oximetry 98 96 Oxygen Delivery Method Room Air Room Air BMI result Body Mass Index 28.3 Labs 10/28/24 09:10 02/11/25 07:40 Imaging Radiology Impressions: ITS Impressions Hip X-Ray 01/12/25 13:30 IMPRESSION: No evidence of fracture of the bilateral hips. Electronically signed by: Kaushal Soni MD 01/12/2025 01:54 PM EDT RP Cervical Spine CT 01/14/25 07:59 IMPRESSION: Multilevel cervical spondylosis without acute fracture or trauma-related listhesis. Fleischner guidelines were followed. Electronically signed by: Abe Griffin MD 01/14/2025 09:50 AM EDT RP Head CT 01/14/25 08:30 IMPRESSION: No acute intracranial abnormality. No fracture seen. Electronically signed by: Chidi Rodriguez MD 01/17/2025 01:08 PM EDT RP Hip/Pelvis X-Ray 01/14/25 09:10 IMPRESSION: No acute fracture or dislocation. Electronically signed by: Abe Griffin MD 01/14/2025 10:35 AM EDT RP Medications Medications Current Medications Acetaminophen (Acetaminophen 325 Mg Tablet) 650 mg PO Q6H PRN PRN Reason: pain scale (1-10) Benztropine Mesylate (Benztropine Mesylate 1 Mg Tablet) 1 mg PO BEDTIME PRN PRN Reason: Extrapyramidal Effects Diazepam (Diazepam 10 Mg/2 Ml Cartridge) 5 mg IM TID PRN PRN Reason: PO refusal. HOLD FOR SEDATION Last Admin: 12/21/24 10:22 Dose: 5 mg Empagliflozin (Empagliflozin 10 Mg Tablet) 10 mg PO DAILY DESIRAE Last Admin: 02/08/25 08:09 Dose: 10 mg Lisinopril (Lisinopril 20 Mg Tablet) 20 mg PO DAILY DESIRAE; Protocol Last Admin: 02/08/25 08:09 Dose: 20 mg Magnesium Hydroxide (Milk Of Magnesia 30 Ml Oral.Susp) 30 ml PO DAILY PRN PRN Reason: Constipation Last Admin: 02/04/25 14:59 Dose: 30 ml Metformin HCl (Metformin Hcl Er 500 Mg Tab.Er.24h) 1,000 mg PO DAILY DESIRAE Last Admin: 02/08/25 08:09 Dose: 1,000 mg Mirtazapine (Mirtazapine 30 Mg Tablet) 30 mg PO BEDTIME DESIRAE Last Admin: 02/08/25 19:31 Dose: 30 mg Nicotine Polacrilex (Nicotine Polacrilex 2 Mg Gum) 4 mg BUCCAL Q2H PRN PRN Reason: Nicotine Cravings Olanzapine (Olanzapine 10 Mg Tablet) 20 mg PO BEDTIME DESIRAE Last Admin: 02/08/25 19:31 Dose: 20 mg Olanzapine (Olanzapine 10 Mg Vial) 10 mg IM BID PRN PRN Reason: PO refusal Last Admin: 12/21/24 10:22 Dose: 10 mg Olanzapine (Olanzapine Odt 10 Mg Tab.Rapdis) 10 mg TRANSLINGU BID PRN PRN Reason: agitation Last Admin: 01/14/25 12:16 Dose: 10 mg Oxcarbazepine (Oxcarbazepine 300 Mg Tablet) 300 mg PO BEDTIME DESIRAE Last Admin: 02/08/25 19:31 Dose: 300 mg Primidone (Primidone 50 Mg Tablet) 25 mg PO BID DESIRAE Last Admin: 02/08/25 19:31 Dose: 25 mg Sertraline HCl (Sertraline Hcl 100 Mg Tablet) 100 mg PO BEDTIME DESIRAE Last Admin: 02/08/25 19:31 Dose: 100 mg Trazodone HCl (Trazodone Hcl 50 Mg Tablet) 50 mg PO BEDTIME PRN PRN Reason: Insomnia Allergies Allergies Allergy/AdvReac Type Severity Reaction Status Date / Time No Known Allergies Allergy Verified 10/14/24 18:14 [No Known Allergies*] Assessment & Plan Assessment & Plan (1) Mood disorder: Status: Acute Code(s): F39 - Unspecified mood [affective] disorder (2) Autism spectrum disorder: Status: Acute Code(s): F84.0 - Autistic disorder (3) Dementia: Status: Acute Code(s): F03.90 - Unspecified dementia, unspecified severity, without behavioral disturbance, psychotic disturbance, mood disturbance, and anxiety Plan Humza was admitted for safety and stabilization. His presentation is very similar to his last admission psychiatrically about a year ago and that is why his caregivers wanted to get ahead of things before he decompensated further. Current medications were reviewed and maintained. Contacts to be made with his treaters next week. 10/17: Continue current regimen and plans 10/19: Continue current tx plan and regime. 10/21: Memantine 5 mg daily- [facility]CI, memory sx Abilify 2 mg daily-augment to antidepressants currently being used. 10/22 continue current tx plan -pt confused 10/23 Continue trials, regime and plan. 10/24: Continue regime and plan of care. 10/25 Abilify increased up to 5 mg. 10/26 keep on same treatment 10/27/24 continues with many complaints, no clear insight into self- 10/28 continue same treatment 10/29 increase Namenda to 5 mg p.o. b.i.d. and change Depakote to Depakene. Depakote level on 13/02 as per blood work of yesterday 10/30/24 - dc abilify inc olanzapine = continue depakene as he did take 5 capsules this am- prn olanzapine given - this afternoon for behaviors on unit- 10/31/24 wrote for liquid depakote option if refuses capsules, also got prn olanzapine for throwing self on floor 11/01 keep same treatment 11/02 increase Zyprexa to 20 mg p.o. q.h.s. 11/03 keep same treatment. 11/04 discontinue Depakote and start Trileptal 300 mg p.o. b.i.d.. Her healthcare proxy will bring a copy of that we are going to invoke it 11/06 increase olanzapine to 20mg po qhs and 10mg po daily. 11/07 continue tx. 12/04 continue tx. 12/05: no changes 12/06 continue tx. 12/12: continue plan of care 12/13: continue tx 12/19 continue current tx plan 12/25: appearing sedated, more of a falls risk, poorer ability to do ADLs. decrease trileptal dosing from 600 BID to 300 BID for now. 12/26: less sedated than yesterday, continue current mgmt, including 1:1, until attending can see pt in the morning. 12/30: continues less sedated. minimally interactive. continue current mgmt. 12/31: per HCP, not at baseline, over-sedated. begin valium taper. decrease valium 5 TID to 4 TID for now. per HCP and SW, HCP has been affirmed in court. IM back-up orders in place and to be enforced by nursing staff. no aggressive or agitated behaviors. 01/02: Continue current regimen and plans Plan 1. Continue with olanzapine 10 mg p.o. q.a.m. and 20 mg p.o. q.h.s., he refused p.o. he received olanzapine IM. 2. Continue with Valium 5 mg p.o. t.i.d. if he refuses he will get Valium IM. 3. We will encourage compliance. The patient had been noncompliant with sertraline, he remains dysphoric. 4. The patient has a healthcare proxy who was affirmed by court, and they want us to medicate him even if the patient does not want to be compliant. 5. At this moment the patient is slightly over-sedated with EPS but we will keep the same dose of antipsychotics since his violence has improved. 01/03/25 Continue plan of care Reassess treatment plan which includes IM medication patient has been much less aggressive than he has in the past Unclear discharge plan at this point 01/04/2025 Patient taking Valium and olanzapine regularly has IM prescribed if refuses intermittently taking medication for diabetes hypertension 01/05/25 Cont medicationhas been stabilizing try and d/c meds that are not esential simplify regimen 01/06/25 stop namenda monitor sugar / bp encourage med acceptance cont valium olanzapine 01/08/2025 Continue olanzapine Valium metformin try and taper and simplify medication as tolerated discharge planning monitor response to change in medication 01/09/25 Try and simplify med regimen d/c planning 01/11/2025 Patient generally more cooperative not agitated generally monitor blood sugar and blood pressure intermittently refuses some doses of metformin 01/12/25 Pt seen later in day seemed stable flat some balance problems noted lowwer trileptal and primidone ck ortho vs dailypt consult for balance 01/13/2025 Patient improving less reactive has not been aggressive more cooperative with treatment and medication. Discharge planning 01/14: fell this morning, per head/c-spine CT and pelvic XR, no osseus injuries. pt appears as at recent mental status. no complaints or requests other than for wheelchair. pt will have 1:1 for ambulation for now. continue current psychopharm mgmt. 01/15: Continue current management and treatment plan. 01/16: continue current management and treatment plan. 01/17 keep same treatment. 01/18 keep same treatment 01/19 keep same treatment 01/20 keep same treatment 01/21 keep same treatment 01/22: calm, cooperative, flat. no questions or complaints. stable presentation. continue current mgmt. 01/23: no change, continue current mgmt. 01/24: stable. continue current mgmt. reps from [facility] coming to [facility] pt for placement today. 01/25/2025 Patient in behavioral control vital signs stable generally accepting treatment continue discharge planning 01/26/2025 Patient generally cooperative seen in the milieu no aggression suicidality or her problematic behavior. Discharge planning strongly urged transition 01/27/2025 Patient continues to be generally stabilizing not combative agitated or threatening has remained generally calm seems safe for discharge planning much improved over time 01/28/2025 Patient seen psychiatric follow-up patient has significantly improved over the months he is calm cooperative seen watching television somewhat social at times not aggressive or combative 01/29 Continue current regime/plan. Improved. 01/31: stably improved. awaiting placement. continue current mgmt. 02/01: stable. continue current mgmt. awaiting placement. 02/02: no change in presentation or plan. 02/03: stable. continue current mgmt. 02/04/2025 Patient seen psychiatric follow-up no current behavioral difficulties no current ability to place patient in a less restricted setting 02/06: no change in presentation. continue current mgmt. 02/07/25 cont d/c planning pt has been tentatively accepted no less restrictive setting currently available 02/08/2025 Continue discharge planning patient tentatively accepted no funding source available at this time no less restrictive setting available Reason for continued inpatient stay Substantial Risk for: inability to function and rapid decompensation Time Spent With Patient Time: Total time managing care of this patient today ____ minutes.
[2025-02-09 08:00] VITALS: BP 105/60; PULSE 69; RESP 18; TEMP 36.6; O2SAT 99
[2025-02-09 08:26] LABS: Glucose, Whole Blood 117 mg/dL (60-115)
[2025-02-09] MEDS: metFORMIN HCl ER 500 MG TAB.ER.24H 1000 MG PO (08:30)
[2025-02-09] MEDS: lisinopriL 20 MG TABLET PO (08:30)
[2025-02-09] MEDS: Empagliflozin 10 MG TABLET PO (08:31)
[2025-02-09] MEDS: Primidone 50 MG TABLET 25 MG PO ×2 (08:31→20:53)
[2025-02-09] MEDS: diazePAM 2 MG TABLET 4 MG PO ×3 (09:26→20:53)
--- NOTE | 2025-02-09 12:34 | P.PNPSI_ITS ---
Subjective Subjective Date of Service: 02/09/25 Reason For Visit: Anxiety, mood disorder, ASD Interim History: initially states he's fine, then c/o tremor. MD informs him medication fell off his regimen and was being put back on, which should address the tremor. per staff, has been more suspicious recently, since tremors returned, challenging RNs on medications they are giving him. it was determined that valium fell off scripts 02/05. Mental Status Exam Mental Status Exam Patient Appearance: Appropriate Patient Orientation: Person and Situation Level of Consciousness: Awake and Appropriate Patient Behavior: Guarded and Passive Mood Description: Withdrawn Affect Description: Constricted Patient Cognition Impaired: Yes Ability to Follow Directions: Good Speech Pattern: Clear Hallucinations: None Delusions: Not Present Thought Process: Distracted and Slowed Thinking Thought Content: positive for [place] and positive for Poverty of Content Judgement: Poor Diagnostics Vital Signs (24Hr): Vital Signs - 24 hr 02/08/25 19:27 02/09/25 08:00 Temperature 97.2 F 97.9 F Pulse Rate 65 69 Respiratory Rate 16 18 Blood Pressure 122/71 105/60 Pulse Oximetry 96 99 Oxygen Delivery Method Room Air Room Air BMI result Body Mass Index 28.3 Labs 10/28/24 09:10 02/04/25 07:33 Labs: Laboratory Results - last 48 hr 02/09/25 08:22 POC Glucose 117 H Imaging Radiology Impressions: ITS Impressions Hip X-Ray 01/12/25 13:30 IMPRESSION: No evidence of fracture of the bilateral hips. Electronically signed by: Kaushal Soni MD 01/12/2025 01:54 PM EDT RP Cervical Spine CT 01/14/25 07:59 IMPRESSION: Multilevel cervical spondylosis without acute fracture or trauma-related listhesis. Fleischner guidelines were followed. Electronically signed by: Abe Griffin MD 01/14/2025 09:50 AM EDT RP Head CT 01/14/25 08:30 IMPRESSION: No acute intracranial abnormality. No fracture seen. Electronically signed by: Chidi Rodriguez MD 01/17/2025 01:08 PM EDT RP Hip/Pelvis X-Ray 01/14/25 09:10 IMPRESSION: No acute fracture or dislocation. Electronically signed by: Abe Griffin MD 01/14/2025 10:35 AM EDT Medications Medications Current Medications Acetaminophen (Acetaminophen 325 Mg Tablet) 650 mg PO Q6H PRN PRN Reason: pain scale (1-10) Benztropine Mesylate (Benztropine Mesylate 1 Mg Tablet) 1 mg PO BEDTIME PRN PRN Reason: Extrapyramidal Effects Diazepam (Diazepam 10 Mg/2 Ml Cartridge) 5 mg IM TID PRN PRN Reason: PO refusal. HOLD FOR SEDATION Last Admin: 12/21/24 10:22 Dose: 5 mg Diazepam (Diazepam 2 Mg Tablet) 4 mg PO TID DESIRAE Last Admin: 02/09/25 09:26 Dose: 4 mg Empagliflozin (Empagliflozin 10 Mg Tablet) 10 mg PO DAILY DESIRAE Last Admin: 02/09/25 08:31 Dose: 10 mg Lisinopril (Lisinopril 20 Mg Tablet) 20 mg PO DAILY DESIRAE; Protocol Last Admin: 02/09/25 08:30 Dose: 20 mg Magnesium Hydroxide (Milk Of Magnesia 30 Ml Oral.Susp) 30 ml PO DAILY PRN PRN Reason: Constipation Last Admin: 02/04/25 14:59 Dose: 30 ml Metformin HCl (Metformin Hcl Er 500 Mg Tab.Er.24h) 1,000 mg PO DAILY DESIRAE Last Admin: 02/09/25 08:30 Dose: 1,000 mg Mirtazapine (Mirtazapine 30 Mg Tablet) 30 mg PO BEDTIME DESIRAE Last Admin: 02/08/25 19:31 Dose: 30 mg Nicotine Polacrilex (Nicotine Polacrilex 2 Mg Gum) 4 mg BUCCAL Q2H PRN PRN Reason: Nicotine Cravings Olanzapine (Olanzapine 10 Mg Tablet) 20 mg PO BEDTIME DESIRAE Last Admin: 02/08/25 19:31 Dose: 20 mg Olanzapine (Olanzapine 10 Mg Vial) 10 mg IM BID PRN PRN Reason: PO refusal Last Admin: 12/21/24 10:22 Dose: 10 mg Olanzapine (Olanzapine Odt 10 Mg Tab.Rapdis) 10 mg TRANSLINGU BID PRN PRN Reason: agitation Last Admin: 01/14/25 12:16 Dose: 10 mg Oxcarbazepine (Oxcarbazepine 300 Mg Tablet) 300 mg PO BEDTIME DESIRAE Last Admin: 02/08/25 19:31 Dose: 300 mg Primidone (Primidone 50 Mg Tablet) 25 mg PO BID [facility] Last Admin: 02/09/25 08:31 Dose: 25 mg Sertraline HCl (Sertraline Hcl 100 Mg Tablet) 100 mg PO BEDTIME [facility] Last Admin: 02/08/25 19:31 Dose: 100 mg Trazodone HCl (Trazodone Hcl 50 Mg Tablet) 50 mg PO BEDTIME PRN PRN Reason: Insomnia Allergies Allergies Allergy/AdvReac Type Severity Reaction Status Date / Time No Known Allergies Allergy Verified 10/14/24 18:14 [No Known Allergies*] Assessment & Plan Assessment & Plan (1) Mood disorder: Status: Acute Code(s): F39 - Unspecified mood [affective] disorder (2) Autism spectrum disorder: Status: Acute Code(s): F84.0 - Autistic disorder (3) Dementia: Status: Acute Code(s): F03.90 - Unspecified dementia, unspecified severity, without behavioral disturbance, psychotic disturbance, mood disturbance, and anxiety Plan Humza was admitted for safety and stabilization. His presentation is very similar to his last admission psychiatrically about a year ago and that is why his caregivers wanted to get ahead of things before he decompensated further. Current medications were reviewed and maintained. Contacts to be made with his treaters next week. 10/17: Continue current regimen and plans 10/19: Continue current tx plan and regime. 10/21: Memantine 5 mg daily- MCI, memory sx Abilify 2 mg daily-augment to antidepressants currently being used. 10/22 continue current tx plan -pt confused 10/23 Continue trials, regime and plan. 10/24: Continue regime and plan of care. 10/25 Abilify increased up to 5 mg. 10/26 keep on same treatment 10/27/24 continues with many complaints, no clear insight into self- 10/28 continue same treatment 10/29 increase Namenda to 5 mg p.o. b.i.d. and change Depakote to Depakene. Depakote level on 13/02 as per blood work of yesterday 10/30/24 - ak abideanna inc olanzapine = continue depakene as he did take 5 capsules this am- prn olanzapine given - this afternoon for behaviors on unit- 10/31/24 wrote for liquid depakote option if refuses capsules, also got prn olanzapine for throwing self on floor 11/01 keep same treatment 11/02 increase Zyprexa to 20 mg p.o. q.h.s. 11/03 keep same treatment. 11/04 discontinue Depakote and start Trileptal 300 mg p.o. b.i.d.. Her healthcare proxy will bring a copy of that we are going to invoke it 11/06 increase olanzapine to 20mg po qhs and 10mg po daily. 11/07 continue tx. 12/04 continue tx. 12/05: no changes 12/06 continue tx. 12/12: continue plan of care 12/13: continue tx 12/19 continue current tx plan 12/25: appearing sedated, more of a falls risk, poorer ability to do ADLs. decrease trileptal dosing from 600 BID to 300 BID for now. 12/26: less sedated than yesterday, continue current mgmt, including 1:1, until attending can see pt in the morning. 12/30: continues less sedated. minimally interactive. continue current mgmt. 12/31: per HCP, not at baseline, over-sedated. begin valium taper. decrease valium 5 TID to 4 TID for now. per HCP and SW, HCP has been affirmed in court. IM back-up orders in place and to be enforced by nursing staff. no aggressive or agitated behaviors. 01/02: Continue current regimen and plans Plan 1. Continue with olanzapine 10 mg p.o. q.a.m. and 20 mg p.o. q.h.s., he refused p.o. he received olanzapine IM. 2. Continue with Valium 5 mg p.o. t.i.d. if he refuses he will get Valium IM. 3. We will encourage compliance. The patient had been noncompliant with sertraline, he remains dysphoric. 4. The patient has a healthcare proxy who was affirmed by court, and they want us to medicate him even if the patient does not want to be compliant. 5. At this moment the patient is slightly over-sedated with EPS but we will keep the same dose of antipsychotics since his violence has improved. 01/03/25 Continue plan of care Reassess treatment plan which includes IM medication patient has been much less aggressive than he has in the past Unclear discharge plan at this point 01/04/2025 Patient taking Valium and olanzapine regularly has IM prescribed if refuses intermittently taking medication for diabetes hypertension 01/05/25 Cont medicationhas been stabilizing try and d/c meds that are not esential simplify regimen 01/06/25 stop namenda monitor sugar / bp encourage med acceptance cont valium olanzapine 01/08/2025 Continue olanzapine Valium metformin try and taper and simplify medication as tolerated discharge planning monitor response to change in medication 01/09/25 Try and simplify med regimen d/c planning 01/11/2025 Patient generally more cooperative not agitated generally monitor blood sugar and blood pressure intermittently refuses some doses of metformin 01/12/25 Pt seen later in day seemed stable flat some balance problems noted lowwer trileptal and primidone ck ortho vs dailypt consult for balance 01/13/2025 Patient improving less reactive has not been aggressive more cooperative with treatment and medication. Discharge planning 01/14: fell this morning, per head/c-spine CT and pelvic XR, no osseus injuries. pt appears as at recent mental status. no complaints or requests other than for wheelchair. pt will have 1:1 for ambulation for now. continue current psychopharm mgmt. 01/15: Continue current management and treatment plan. 01/16: continue current management and treatment plan. 01/17 keep same treatment. 01/18 keep same treatment 01/19 keep same treatment 01/20 keep same treatment 01/21 keep same treatment 01/22: calm, cooperative, flat. no questions or complaints. stable presentation. continue current mgmt. 01/23: no change, continue current mgmt. 01/24: stable. continue current mgmt. reps from [facility] coming to [facility] pt for placement today. 01/25/2025 Patient in behavioral control vital signs stable generally accepting treatment continue discharge planning 01/26/2025 Patient generally cooperative seen in the milieu no aggression suicidality or her problematic behavior. Discharge planning strongly urged transition 01/27/2025 Patient continues to be generally stabilizing not combative agitated or threatening has remained generally calm seems safe for discharge planning much improved over time 01/28/2025 Patient seen psychiatric follow-up patient has significantly improved over the months he is calm cooperative seen watching television somewhat social at times not aggressive or combative 01/29 Continue current regime/plan. Improved. 01/31: stably improved. awaiting placement. continue current mgmt. 02/01: stable. continue current mgmt. awaiting placement. 02/02: no change in presentation or plan. 02/03: stable. continue current mgmt. 02/04/2025 Patient seen psychiatric follow-up no current behavioral difficulties no current ability to place patient in a less restricted setting 02/06: no change in presentation. continue current mgmt. 02/07/25 cont d/c planning pt has been tentatively accepted no less restrictive setting currently available 02/09: valium fell of scripts 02/05, since then tremor and paranoia toward nursing staff returned. restart valium 4 TID now, otherwise continue current mgmt. Reason for continued inpatient stay Substantial Risk for: inability to function and rapid decompensation Time Spent With Patient Time: Total time managing care of this patient today ____ minutes.
[2025-02-09 20:00] VITALS: BP 107/69; PULSE 62; RESP 18; TEMP 35.5; O2SAT 99
[2025-02-09] MEDS: OXcarbazepine 300 MG TABLET PO (20:53)
[2025-02-09] MEDS: Sertraline HCL 100 MG TABLET PO (20:53)
[2025-02-09] MEDS: Mirtazapine 30 MG TABLET PO (20:53)
[2025-02-09] MEDS: OLANZapine 10 MG TABLET 20 MG PO (20:53)
[2025-02-10 09:10] VITALS: BP 126/68; PULSE 73; RESP 16; TEMP 36.7; O2SAT 97
[2025-02-10 09:13] VITALS: BP 126/68
[2025-02-10] MEDS: Empagliflozin 10 MG TABLET PO (09:13)
[2025-02-10] MEDS: Primidone 50 MG TABLET 25 MG PO ×2 (09:13→20:47)
[2025-02-10] MEDS: diazePAM 2 MG TABLET 4 MG PO ×3 (09:13→20:47)
[2025-02-10] MEDS: metFORMIN HCl ER 500 MG TAB.ER.24H 1000 MG PO (09:13)
[2025-02-10] MEDS: lisinopriL 20 MG TABLET PO (09:13)
[2025-02-10 09:17] VITALS: BMI 27.5
[2025-02-10 20:00] VITALS: BP 128/71; PULSE 68; RESP 18; TEMP 36.3; O2SAT 99
[2025-02-10] MEDS: OXcarbazepine 300 MG TABLET PO (20:47)
[2025-02-10] MEDS: OLANZapine 10 MG TABLET 20 MG PO (20:47)
[2025-02-10] MEDS: Mirtazapine 30 MG TABLET PO (20:48)
[2025-02-10] MEDS: Sertraline HCL 100 MG TABLET PO (20:48)
[2025-02-11 08:00] VITALS: BP 122/72; PULSE 74; RESP 18; TEMP 36; O2SAT 95
[2025-02-11 08:10] LABS: Creatinine Clr Calc Pharmacy 68.7; Estimated Glomerular Filt Rate > 60
[2025-02-11] MEDS: lisinopriL 20 MG TABLET PO (09:02)
[2025-02-11] MEDS: Empagliflozin 10 MG TABLET PO (09:02)
[2025-02-11] MEDS: diazePAM 2 MG TABLET 4 MG PO ×3 (09:03→19:28)
[2025-02-11] MEDS: metFORMIN HCl ER 500 MG TAB.ER.24H 1000 MG PO (09:03)
[2025-02-11] MEDS: Primidone 50 MG TABLET 25 MG PO ×2 (09:06→19:27)
--- NOTE | 2025-02-11 13:41 | P.PNPSI_ITS ---
Subjective Subjective Date of Service: 02/11/25 Reason For Visit: Anxiety, mood disorder, ASD Interim History: seen sitting in milieu. inert, cooperative. no complaints. informed tremor should continue to improve. per staff, feeling better than yesterday. mild B/L hand tremors. Mental Status Exam Mental Status Exam Patient Appearance: Appropriate Patient Orientation: Person and Situation Level of Consciousness: Awake and Appropriate Patient Behavior: Guarded and Passive Mood Description: Withdrawn Affect Description: Constricted Patient Cognition Impaired: Yes Ability to Follow Directions: Good Speech Pattern: Clear Hallucinations: None Delusions: Not Present Thought Process: Distracted and Slowed Thinking Thought Content: positive for [place] and positive for Poverty of Content Judgement: Poor Diagnostics Vital Signs (24Hr): Vital Signs - 24 hr 02/10/25 20:00 02/11/25 08:00 Temperature 97.4 F 96.8 F Pulse Rate 68 74 Respiratory Rate 18 18 Blood Pressure 128/71 122/72 Pulse Oximetry 99 95 Oxygen Delivery Method Room Air Room Air BMI result Body Mass Index 27.5 Labs 10/28/24 09:10 02/11/25 07:40 Labs: Laboratory Results - last 48 hr 02/11/25 07:40 Creatinine 1.05 Estim Creat Clear Calc 68.7 Estimated GFR > 60 Imaging Radiology Impressions: ITS Impressions Hip X-Ray 01/12/25 13:30 IMPRESSION: No evidence of fracture of the bilateral hips. Electronically signed by: Kaushal Soni MD 01/12/2025 01:54 PM EDT RP Cervical Spine CT 01/14/25 07:59 IMPRESSION: Multilevel cervical spondylosis without acute fracture or trauma-related listhesis. Fleischner guidelines were followed. Electronically signed by: Abe Griffin MD 01/14/2025 09:50 AM EDT RP Head CT 01/14/25 08:30 IMPRESSION: No acute intracranial abnormality. No fracture seen. Electronically signed by: Chidi Rodriguez MD 01/17/2025 01:08 PM EDT RP Hip/Pelvis X-Ray 01/14/25 09:10 IMPRESSION: No acute fracture or dislocation. Electronically signed by: Abe Griffin MD 01/14/2025 10:35 AM EDT RP Medications Medications Current Medications Acetaminophen (Acetaminophen 325 Mg Tablet) 650 mg PO Q6H PRN PRN Reason: pain scale (1-10) Benztropine Mesylate (Benztropine Mesylate 1 Mg Tablet) 1 mg PO BEDTIME PRN PRN Reason: Extrapyramidal Effects Diazepam (Diazepam 10 Mg/2 Ml Cartridge) 5 mg IM TID PRN PRN Reason: PO refusal. HOLD FOR SEDATION Last Admin: 12/21/24 10:22 Dose: 5 mg Diazepam (Diazepam 2 Mg Tablet) 4 mg PO TID DESIRAE Last Admin: 02/11/25 09:03 Dose: 4 mg Empagliflozin (Empagliflozin 10 Mg Tablet) 10 mg PO DAILY DESIRAE Last Admin: 02/11/25 09:02 Dose: 10 mg Lisinopril (Lisinopril 20 Mg Tablet) 20 mg PO DAILY DESIRAE; Protocol Last Admin: 02/11/25 09:02 Dose: 20 mg Magnesium Hydroxide (Milk Of Magnesia 30 Ml Oral.Susp) 30 ml PO DAILY PRN PRN Reason: Constipation Last Admin: 02/04/25 14:59 Dose: 30 ml Metformin HCl (Metformin Hcl Er 500 Mg Tab.Er.24h) 1,000 mg PO DAILY DESIRAE Last Admin: 02/11/25 09:03 Dose: 1,000 mg Mirtazapine (Mirtazapine 30 Mg Tablet) 30 mg PO BEDTIME DESIRAE Last Admin: 02/10/25 20:48 Dose: 30 mg Nicotine Polacrilex (Nicotine Polacrilex 2 Mg Gum) 4 mg BUCCAL Q2H PRN PRN Reason: Nicotine Cravings Olanzapine (Olanzapine 10 Mg Tablet) 20 mg PO BEDTIME DESIRAE Last Admin: 02/10/25 20:47 Dose: 20 mg Olanzapine (Olanzapine 10 Mg Vial) 10 mg IM BID PRN PRN Reason: PO refusal Last Admin: 12/21/24 10:22 Dose: 10 mg Olanzapine (Olanzapine Odt 10 Mg Tab.Rapdis) 10 mg TRANSLINGU BID PRN PRN Reason: agitation Last Admin: 01/14/25 12:16 Dose: 10 mg Oxcarbazepine (Oxcarbazepine 300 Mg Tablet) 300 mg PO BEDTIME DESIRAE Last Admin: 02/10/25 20:47 Dose: 300 mg Primidone (Primidone 50 Mg Tablet) 25 mg PO BID DESIRAE Last Admin: 02/11/25 09:06 Dose: 25 mg Sertraline HCl (Sertraline Hcl 100 Mg Tablet) 100 mg PO BEDTIME DESIRAE Last Admin: 02/10/25 20:48 Dose: 100 mg Trazodone HCl (Trazodone Hcl 50 Mg Tablet) 50 mg PO BEDTIME PRN PRN Reason: Insomnia Allergies Allergies Allergy/AdvReac Type Severity Reaction Status Date / Time No Known Allergies Allergy Verified 10/14/24 18:14 [No Known Allergies*] Assessment & Plan Assessment & Plan (1) Mood disorder: Status: Acute Code(s): F39 - Unspecified mood [affective] disorder (2) Autism spectrum disorder: Status: Acute Code(s): F84.0 - Autistic disorder (3) Dementia: Status: Acute Code(s): F03.90 - Unspecified dementia, unspecified severity, without behavioral disturbance, psychotic disturbance, mood disturbance, and anxiety Plan Humza was admitted for safety and stabilization. His presentation is very similar to his last admission psychiatrically about a year ago and that is why his caregivers wanted to get ahead of things before he decompensated further. Current medications were reviewed and maintained. Contacts to be made with his treaters next week. 10/17: Continue current regimen and plans 10/19: Continue current tx plan and regime. 10/21: Memantine 5 mg daily- [facility], memory sx Abilify 2 mg daily-augment to antidepressants currently being used. 10/22 continue current tx plan -pt confused 10/23 Continue trials, regime and plan. 10/24: Continue regime and plan of care. 10/25 Abilify increased up to 5 mg. 10/26 keep on same treatment 10/27/24 continues with many complaints, no clear insight into self- 10/28 continue same treatment 10/29 increase Namenda to 5 mg p.o. b.i.d. and change Depakote to Depakene. Depakote level on 13/02 as per blood work of yesterday 10/30/24 - [facility] olanzapine = continue depakene as he did take 5 capsules this am- prn olanzapine given - this afternoon for behaviors on unit- 10/31/24 wrote for liquid depakote option if refuses capsules, also got prn olanzapine for throwing self on floor 11/01 keep same treatment 11/02 increase Zyprexa to 20 mg p.o. q.h.s. 11/03 keep same treatment. 11/04 discontinue Depakote and start Trileptal 300 mg p.o. b.i.d.. Her healthcare proxy will bring a copy of that we are going to invoke it 11/06 increase olanzapine to 20mg po qhs and 10mg po daily. 11/07 continue tx. 12/04 continue tx. 12/05: no changes 12/06 continue tx. 12/12: continue plan of care 12/13: continue tx 12/19 continue current tx plan 12/25: appearing sedated, more of a falls risk, poorer ability to do ADLs. decrease trileptal dosing from 600 BID to 300 BID for now. 12/26: less sedated than yesterday, continue current mgmt, including 1:1, until attending can see pt in the morning. 12/30: continues less sedated. minimally interactive. continue current mgmt. 12/31: per HCP, not at baseline, over-sedated. begin valium taper. decrease valium 5 TID to 4 TID for now. per HCP and SW, HCP has been affirmed in court. IM back-up orders in place and to be enforced by nursing staff. no aggressive or agitated behaviors. 01/02: Continue current regimen and plans Plan 1. Continue with olanzapine 10 mg p.o. q.a.m. and 20 mg p.o. q.h.s., he refused p.o. he received olanzapine IM. 2. Continue with Valium 5 mg p.o. t.i.d. if he refuses he will get Valium IM. 3. We will encourage compliance. The patient had been noncompliant with sertraline, he remains dysphoric. 4. The patient has a healthcare proxy who was affirmed by court, and they want us to medicate him even if the patient does not want to be compliant. 5. At this moment the patient is slightly over-sedated with EPS but we will keep the same dose of antipsychotics since his violence has improved. 01/03/25 Continue plan of care Reassess treatment plan which includes IM medication patient has been much less aggressive than he has in the past Unclear discharge plan at this point 01/04/2025 Patient taking Valium and olanzapine regularly has IM prescribed if refuses intermittently taking medication for diabetes hypertension 01/05/25 Cont medicationhas been stabilizing try and d/c meds that are not esential simplify regimen 01/06/25 stop namenda monitor sugar / bp encourage med acceptance cont valium olanzapine 01/08/2025 Continue olanzapine Valium metformin try and taper and simplify medication as tolerated discharge planning monitor response to change in medication 01/09/25 Try and simplify med regimen d/c planning 01/11/2025 Patient generally more cooperative not agitated generally monitor blood sugar and blood pressure intermittently refuses some doses of metformin 01/12/25 Pt seen later in day seemed stable flat some balance problems noted lowwer trileptal and primidone ck ortho vs dailypt consult for balance 01/13/2025 Patient improving less reactive has not been aggressive more cooperative with treatment and medication. Discharge planning 01/14: fell this morning, per head/c-spine CT and pelvic XR, no osseus injuries. pt appears as at recent mental status. no complaints or requests other than for wheelchair. pt will have 1:1 for ambulation for now. continue current psychopharm mgmt. 01/15: Continue current management and treatment plan. 01/16: continue current management and treatment plan. 01/17 keep same treatment. 01/18 keep same treatment 01/19 keep same treatment 01/20 keep same treatment 01/21 keep same treatment 01/22: calm, cooperative, flat. no questions or complaints. stable presentation. continue current mgmt. 01/23: no change, continue current mgmt. 01/24: stable. continue current mgmt. reps from [facility] pt for placement today. 01/25/2025 Patient in behavioral control vital signs stable generally accepting treatment continue discharge planning 01/26/2025 Patient generally cooperative seen in the milieu no aggression suicidality or her problematic behavior. Discharge planning strongly urged transition 01/27/2025 Patient continues to be generally stabilizing not combative agitated or threatening has remained generally calm seems safe for discharge planning much improved over time 01/28/2025 Patient seen psychiatric follow-up patient has significantly improved over the months he is calm cooperative seen watching television somewhat social at times not aggressive or combative 01/29 Continue current regime/plan. Improved. 01/31: stably improved. awaiting placement. continue current mgmt. 02/01: stable. continue current mgmt. awaiting placement. 02/02: no change in presentation or plan. 02/03: stable. continue current mgmt. 02/04/2025 Patient seen psychiatric follow-up no current behavioral difficulties no current ability to place patient in a less restricted setting 02/06: no change in presentation. continue current mgmt. 02/07/25 cont d/c planning pt has been tentatively accepted no less restrictive setting currently available 02/09: valium fell of scripts 02/05, since then tremor and paranoia toward nursing staff returned. restart valium 4 TID now, otherwise continue current mgmt. 02/11: improved from 02/09 in terms of tremor and paranoia. some residual of both, however. expecting continued improvements as getting reestablished on valium. continue current mgmt. Reason for continued inpatient stay Substantial Risk for: inability to function Time Spent With Patient Time: Total time managing care of this patient today ____ minutes.
[2025-02-11 19:26] VITALS: BP 122/78; PULSE 80; RESP 16; TEMP 36.6; O2SAT 98
[2025-02-11] MEDS: OLANZapine 10 MG TABLET 20 MG PO (19:27)
[2025-02-11] MEDS: OXcarbazepine 300 MG TABLET PO (19:27)
[2025-02-11] MEDS: Mirtazapine 30 MG TABLET PO (19:28)
[2025-02-11] MEDS: Sertraline HCL 100 MG TABLET PO (19:30)
[2025-02-12 08:00] VITALS: BP 103/67; PULSE 78; RESP 18; TEMP 36.6; O2SAT 98
[2025-02-12] MEDS: Empagliflozin 10 MG TABLET PO (08:09)
[2025-02-12] MEDS: diazePAM 2 MG TABLET 4 MG PO ×3 (08:09→19:36)
[2025-02-12] MEDS: Primidone 50 MG TABLET 25 MG PO ×2 (08:10→19:35)
[2025-02-12] MEDS: lisinopriL 20 MG TABLET PO (08:10)
[2025-02-12] MEDS: metFORMIN HCl ER 500 MG TAB.ER.24H 1000 MG PO (08:10)
--- NOTE | 2025-02-12 12:27 | P.PNPSI_ITS ---
Subjective Subjective Date of Service: 02/12/25 Reason For Visit: Anxiety, mood disorder, ASD Subjective Notes: Conditional Voluntary Interim History: Patient was seen and discussed in rounds today. Records and plans were reviewed. He has been doing about the same with no changes. Compliant and no complaints or side effects. Had diarrhea this morning. No changes were made today Review of Systems Review of Systems Diarrhea Yes all other systems are reviewed and are negative Mental Status Exam Mental Status Exam Patient Appearance: Appropriate Patient Orientation: Person and Situation Level of Consciousness: Awake and Appropriate Patient Behavior: Guarded and Passive Mood Description: Withdrawn Affect Description: Constricted Patient Cognition Impaired: Yes Ability to Follow Directions: Good Speech Pattern: Clear Hallucinations: None Delusions: Not Present Thought Process: Distracted and Slowed Thinking Thought Content: positive for [place] and positive for Poverty of Content Judgement: Poor Diagnostics Vital Signs (24Hr): Vital Signs - 24 hr 02/11/25 19:26 02/12/25 08:00 Temperature 97.8 F 97.9 F Pulse Rate 80 78 Respiratory Rate 16 18 Blood Pressure 122/78 103/67 Pulse Oximetry 98 98 Oxygen Delivery Method Room Air Room Air BMI result Body Mass Index 27.5 Labs 10/28/24 09:10 02/11/25 07:40 Labs: Laboratory Results - last 48 hr 02/11/25 07:40 Creatinine 1.05 Estim Creat Clear Calc 68.7 Estimated GFR > 60 Imaging Radiology Impressions: ITS Impressions Hip X-Ray 01/12/25 13:30 IMPRESSION: No evidence of fracture of the bilateral hips. Electronically signed by: Kaushal Soni MD 01/12/2025 01:54 PM EDT RP Cervical Spine CT 01/14/25 07:59 IMPRESSION: Multilevel cervical spondylosis without acute fracture or trauma-related listhesis. Fleischner guidelines were followed. Electronically signed by: Abe Griffin MD 01/14/2025 09:50 AM EDT RP Head CT 01/14/25 08:30 IMPRESSION: No acute intracranial abnormality. No fracture seen. Electronically signed by: Chidi Rodriguez MD 01/17/2025 01:08 PM EDT RP Hip/Pelvis X-Ray 01/14/25 09:10 IMPRESSION: No acute fracture or dislocation. Electronically signed by: Abe Griffin MD 01/14/2025 10:35 AM EDT Medications Medications Current Medications Acetaminophen (Acetaminophen 325 Mg Tablet) 650 mg PO Q6H PRN PRN Reason: pain scale (1-10) Benztropine Mesylate (Benztropine Mesylate 1 Mg Tablet) 1 mg PO BEDTIME PRN PRN Reason: Extrapyramidal Effects Diazepam (Diazepam 10 Mg/2 Ml Cartridge) 5 mg IM TID PRN PRN Reason: PO refusal. HOLD FOR SEDATION Last Admin: 12/21/24 10:22 Dose: 5 mg Diazepam (Diazepam 2 Mg Tablet) 4 mg PO TID DESIRAE Last Admin: 02/12/25 08:09 Dose: 4 mg Empagliflozin (Empagliflozin 10 Mg Tablet) 10 mg PO DAILY DESIRAE Last Admin: 02/12/25 08:09 Dose: 10 mg Lisinopril (Lisinopril 20 Mg Tablet) 20 mg PO DAILY DESIRAE; Protocol Last Admin: 02/12/25 08:10 Dose: 20 mg Magnesium Hydroxide (Milk Of Magnesia 30 Ml Oral.Susp) 30 ml PO DAILY PRN PRN Reason: Constipation Last Admin: 02/04/25 14:59 Dose: 30 ml Metformin HCl (Metformin Hcl Er 500 Mg Tab.Er.24h) 1,000 mg PO DAILY DESIRAE Last Admin: 02/12/25 08:10 Dose: 1,000 mg Mirtazapine (Mirtazapine 30 Mg Tablet) 30 mg PO BEDTIME DESIRAE Last Admin: 02/11/25 19:28 Dose: 30 mg Nicotine Polacrilex (Nicotine Polacrilex 2 Mg Gum) 4 mg BUCCAL Q2H PRN PRN Reason: Nicotine Cravings Olanzapine (Olanzapine 10 Mg Tablet) 20 mg PO BEDTIME DESIRAE Last Admin: 02/11/25 19:27 Dose: 20 mg Olanzapine (Olanzapine 10 Mg Vial) 10 mg IM BID PRN PRN Reason: PO refusal Last Admin: 12/21/24 10:22 Dose: 10 mg Olanzapine (Olanzapine Odt 10 Mg Tab.Rapdis) 10 mg TRANSLINGU BID PRN PRN Reason: agitation Last Admin: 01/14/25 12:16 Dose: 10 mg Oxcarbazepine (Oxcarbazepine 300 Mg Tablet) 300 mg PO BEDTIME DESIRAE Last Admin: 02/11/25 19:27 Dose: 300 mg Primidone (Primidone 50 Mg Tablet) 25 mg PO BID [facility] Last Admin: 02/12/25 08:10 Dose: 25 mg Sertraline HCl (Sertraline Hcl 100 Mg Tablet) 100 mg PO BEDTIME [facility] Last Admin: 02/11/25 19:30 Dose: 100 mg Trazodone HCl (Trazodone Hcl 50 Mg Tablet) 50 mg PO BEDTIME PRN PRN Reason: Insomnia Allergies Allergies Allergy/AdvReac Type Severity Reaction Status Date / Time No Known Allergies Allergy Verified 10/14/24 18:14 [No Known Allergies*] Assessment & Plan Assessment & Plan (1) Mood disorder: Status: Acute Code(s): F39 - Unspecified mood [affective] disorder (2) Autism spectrum disorder: Status: Acute Code(s): F84.0 - Autistic disorder (3) Dementia: Status: Acute Code(s): F03.90 - Unspecified dementia, unspecified severity, without behavioral disturbance, psychotic disturbance, mood disturbance, and anxiety Plan Humza was admitted for safety and stabilization. His presentation is very similar to his last admission psychiatrically about a year ago and that is why his caregivers wanted to get ahead of things before he decompensated further. Current medications were reviewed and maintained. Contacts to be made with his treaters next week. 10/17: Continue current regimen and plans 10/19: Continue current tx plan and regime. 10/21: Memantine 5 mg daily- [facility], memory sx Abilify 2 mg daily-augment to antidepressants currently being used. 10/22 continue current tx plan -pt confused 10/23 Continue trials, regime and plan. 10/24: Continue regime and plan of care. 10/25 Abilify increased up to 5 mg. 10/26 keep on same treatment 10/27/24 continues with many complaints, no clear insight into self- 10/28 continue same treatment 10/29 increase Namenda to 5 mg p.o. b.i.d. and change Depakote to Depakene. Depakote level on 13/02 as per blood work of yesterday 10/30/24 - dc [facility] inc olanzapine = continue depakene as he did take 5 capsules this am- prn olanzapine given - this afternoon for behaviors on unit- 10/31/24 wrote for liquid depakote option if refuses capsules, also got prn olanzapine for throwing self on floor 11/01 keep same treatment 11/02 increase Zyprexa to 20 mg p.o. q.h.s. 11/03 keep same treatment. 11/04 discontinue Depakote and start Trileptal 300 mg p.o. b.i.d.. Her healthcare proxy will bring a copy of that we are going to invoke it 11/06 increase olanzapine to 20mg po qhs and 10mg po daily. 11/07 continue tx. 12/04 continue tx. 12/05: no changes 12/06 continue tx. 12/12: continue plan of care 12/13: continue tx 12/19 continue current tx plan 12/25: appearing sedated, more of a falls risk, poorer ability to do ADLs. decrease trileptal dosing from 600 BID to 300 BID for now. 12/26: less sedated than yesterday, continue current mgmt, including 1:1, until attending can see pt in the morning. 12/30: continues less sedated. minimally interactive. continue current mgmt. 12/31: per HCP, not at baseline, over-sedated. begin valium taper. decrease valium 5 TID to 4 TID for now. per HCP and SW, HCP has been affirmed in court. IM back-up orders in place and to be enforced by nursing staff. no aggressive or agitated behaviors. 01/02: Continue current regimen and plans Plan 1. Continue with olanzapine 10 mg p.o. q.a.m. and 20 mg p.o. q.h.s., he refused p.o. he received olanzapine IM. 2. Continue with Valium 5 mg p.o. t.i.d. if he refuses he will get Valium IM. 3. We will encourage compliance. The patient had been noncompliant with sertraline, he remains dysphoric. 4. The patient has a healthcare proxy who was affirmed by court, and they want us to medicate him even if the patient does not want to be compliant. 5. At this moment the patient is slightly over-sedated with EPS but we will keep the same dose of antipsychotics since his violence has improved. 01/03/25 Continue plan of care Reassess treatment plan which includes IM medication patient has been much less aggressive than he has in the past Unclear discharge plan at this point 01/04/2025 Patient taking Valium and olanzapine regularly has IM prescribed if refuses intermittently taking medication for diabetes hypertension 01/05/25 Cont medicationhas been stabilizing try and d/c meds that are not esential simplify regimen 01/06/25 stop namenda monitor sugar / bp encourage med acceptance cont valium olanzapine 01/08/2025 Continue olanzapine Valium metformin try and taper and simplify medication as tolerated discharge planning monitor response to change in medication 01/09/25 Try and simplify med regimen d/c planning 01/11/2025 Patient generally more cooperative not agitated generally monitor blood sugar and blood pressure intermittently refuses some doses of metformin 01/12/25 Pt seen later in day seemed stable flat some balance problems noted lowwer trileptal and primidone ck ortho vs dailypt consult for balance 01/13/2025 Patient improving less reactive has not been aggressive more cooperative with treatment and medication. Discharge planning 01/14: fell this morning, per head/c-spine CT and pelvic XR, no osseus injuries. pt appears as at recent mental status. no complaints or requests other than for wheelchair. pt will have 1:1 for ambulation for now. continue current psychopharm mgmt. 01/15: Continue current management and treatment plan. 01/16: continue current management and treatment plan. 01/17 keep same treatment. 01/18 keep same treatment 01/19 keep same treatment 01/20 keep same treatment 01/21 keep same treatment 01/22: calm, cooperative, flat. no questions or complaints. stable presentation. continue current mgmt. 01/23: no change, continue current mgmt. 01/24: stable. continue current mgmt. reps from [facility] coming to [facility] pt for placement today. 01/25/2025 Patient in behavioral control vital signs stable generally accepting treatment continue discharge planning 01/26/2025 Patient generally cooperative seen in the milieu no aggression suicidality or her problematic behavior. Discharge planning strongly urged transition 01/27/2025 Patient continues to be generally stabilizing not combative agitated or threatening has remained generally calm seems safe for discharge planning much improved over time 01/28/2025 Patient seen psychiatric follow-up patient has significantly improved over the months he is calm cooperative seen watching television somewhat social at times not aggressive or combative 01/29 Continue current regime/plan. Improved. 01/31: stably improved. awaiting placement. continue current mgmt. 02/01: stable. continue current mgmt. awaiting placement. 02/02: no change in presentation or plan. 02/03: stable. continue current mgmt. 02/04/2025 Patient seen psychiatric follow-up no current behavioral difficulties no current ability to place patient in a less restricted setting 02/06: no change in presentation. continue current mgmt. 02/07/25 cont d/c planning pt has been tentatively accepted no less restrictive setting currently available 02/09: valium fell of scripts 02/05, since then tremor and paranoia toward nursing staff returned. restart valium 4 TID now, otherwise continue current mgmt. 02/11: improved from 02/09 in terms of tremor and paranoia. some residual of both, however. expecting continued improvements as getting reestablished on valium. continue current mgmt. 02/12: Continue plans and regimen Reason for continued inpatient stay Substantial Risk for: inability to function Time Spent With Patient Time: Total time managing care of this patient today ____ minutes.
[2025-02-12 19:32] VITALS: BP 109/67; PULSE 79; RESP 16; TEMP 36.4; O2SAT 97
[2025-02-12] MEDS: OLANZapine 10 MG TABLET 20 MG PO (19:35)
[2025-02-12] MEDS: Mirtazapine 30 MG TABLET PO (19:36)
[2025-02-12] MEDS: OXcarbazepine 300 MG TABLET PO (19:36)
[2025-02-12] MEDS: Sertraline HCL 100 MG TABLET PO (19:37)
[2025-02-13 08:00] VITALS: BP 110/67; PULSE 66; RESP 18; TEMP 36.1; O2SAT 98
--- NOTE | 2025-02-13 08:44 | HO.PSYCHPN ---
Subjective Subjective Date of Service: 02/13/25 Reason For Visit: Anxiety, mood disorder, ASD Review of Systems Review of Systems Yes all other systems are reviewed and are negative Mental Status Exam Mental Status Exam Patient Appearance: Appropriate Patient Orientation: Person and Situation Level of Consciousness: Awake and Appropriate Patient Behavior: Guarded and Passive Mood Description: Withdrawn Affect Description: Constricted Patient Cognition Impaired: Yes Ability to Follow Directions: Good Speech Pattern: Clear Hallucinations: None Delusions: Not Present Thought Process: Distracted and Slowed Thinking Thought Content: positive for [place] and positive for Poverty of Content Judgement: Poor Diagnostics Vital Signs (24Hr): Vital Signs - 24 hr 02/12/25 19:32 Temperature 97.5 F Pulse Rate 79 Respiratory Rate 16 Blood Pressure 109/67 Pulse Oximetry 97 Oxygen Delivery Method Room Air BMI result Body Mass Index 27.5 Labs 10/28/24 09:10 02/11/25 07:40 Imaging Radiology Impressions: ITS Impressions Hip X-Ray 01/12/25 13:30 IMPRESSION: No evidence of fracture of the bilateral hips. Electronically signed by: Kaushal Soni MD 01/12/2025 01:54 PM EDT RP Cervical Spine CT 01/14/25 07:59 IMPRESSION: Multilevel cervical spondylosis without acute fracture or trauma-related listhesis. Fleischner guidelines were followed. Electronically signed by: Abe Griffin MD 01/14/2025 09:50 AM EDT RP Head CT 01/14/25 08:30 IMPRESSION: No acute intracranial abnormality. No fracture seen. Electronically signed by: Chidi Rodriguez MD 01/17/2025 01:08 PM EDT RP Hip/Pelvis X-Ray 01/14/25 09:10 IMPRESSION: No acute fracture or dislocation. Electronically signed by: Abe Griffin MD 01/14/2025 10:35 AM EDT RP Medications Medications Current Medications Acetaminophen (Acetaminophen 325 Mg Tablet) 650 mg PO Q6H PRN PRN Reason: pain scale (1-10) Benztropine Mesylate (Benztropine Mesylate 1 Mg Tablet) 1 mg PO BEDTIME PRN PRN Reason: Extrapyramidal Effects Diazepam (Diazepam 10 Mg/2 Ml Cartridge) 5 mg IM TID PRN PRN Reason: PO refusal. HOLD FOR SEDATION Last Admin: 12/21/24 10:22 Dose: 5 mg Diazepam (Diazepam 2 Mg Tablet) 4 mg PO TID [facility] Last Admin: 02/12/25 19:36 Dose: 4 mg Empagliflozin (Empagliflozin 10 Mg Tablet) 10 mg PO DAILY [facility] Last Admin: 02/12/25 08:09 Dose: 10 mg Lisinopril (Lisinopril 20 Mg Tablet) 20 mg PO DAILY [facility]; Protocol Last Admin: 02/12/25 08:10 Dose: 20 mg Magnesium Hydroxide (Milk Of Magnesia 30 Ml Oral.Susp) 30 ml PO DAILY PRN PRN Reason: Constipation Last Admin: 02/04/25 14:59 Dose: 30 ml Metformin HCl (Metformin Hcl Er 500 Mg Tab.Er.24h) 1,000 mg PO DAILY [facility] Last Admin: 02/12/25 08:10 Dose: 1,000 mg Mirtazapine (Mirtazapine 30 Mg Tablet) 30 mg PO BEDTIME [facility] Last Admin: 02/12/25 19:36 Dose: 30 mg Nicotine Polacrilex (Nicotine Polacrilex 2 Mg Gum) 4 mg BUCCAL Q2H PRN PRN Reason: Nicotine Cravings Olanzapine (Olanzapine 10 Mg Tablet) 20 mg PO BEDTIME [facility] Last Admin: 02/12/25 19:35 Dose: 20 mg Olanzapine (Olanzapine 10 Mg Vial) 10 mg IM BID PRN PRN Reason: PO refusal Last Admin: 12/21/24 10:22 Dose: 10 mg Olanzapine (Olanzapine Odt 10 Mg Tab.Rapdis) 10 mg TRANSLINGU BID PRN PRN Reason: agitation Last Admin: 01/14/25 12:16 Dose: 10 mg Oxcarbazepine (Oxcarbazepine 300 Mg Tablet) 300 mg PO BEDTIME [facility] Last Admin: 02/12/25 19:36 Dose: 300 mg Primidone (Primidone 50 Mg Tablet) 25 mg PO BID [facility] Last Admin: 02/12/25 19:35 Dose: 25 mg Sertraline HCl (Sertraline Hcl 100 Mg Tablet) 100 mg PO BEDTIME [facility] Last Admin: 02/12/25 19:37 Dose: 100 mg Trazodone HCl (Trazodone Hcl 50 Mg Tablet) 50 mg PO BEDTIME PRN PRN Reason: Insomnia Allergies Allergies Allergy/AdvReac Type Severity Reaction Status Date / Time No Known Allergies Allergy Verified 10/14/24 18:14 [No Known Allergies*] Assessment & Plan Assessment & Plan (1) Mood disorder: Status: Acute Code(s): F39 - Unspecified mood [affective] disorder (2) Autism spectrum disorder: Status: Acute Code(s): F84.0 - Autistic disorder (3) Dementia: Status: Acute Code(s): F03.90 - Unspecified dementia, unspecified severity, without behavioral disturbance, psychotic disturbance, mood disturbance, and anxiety Plan Humza was admitted for safety and stabilization. His presentation is very similar to his last admission psychiatrically about a year ago and that is why his caregivers wanted to get ahead of things before he decompensated further. Current medications were reviewed and maintained. Contacts to be made with his treaters next week. 10/17: Continue current regimen and plans 10/19: Continue current tx plan and regime. 10/21: Memantine 5 mg daily- [facility], memory sx Abilify 2 mg daily-augment to antidepressants currently being used. 10/22 continue current tx plan -pt confused 10/23 Continue trials, regime and plan. 10/24: Continue regime and plan of care. 10/25 Abilify increased up to 5 mg. 10/26 keep on same treatment 10/27/24 continues with many complaints, no clear insight into self- 10/28 continue same treatment 10/29 increase Namenda to 5 mg p.o. b.i.d. and change Depakote to Depakene. Depakote level on 13/02 as per blood work of yesterday 10/30/24 - [facility] [employer] [facility] olanzapine = continue depakene as he did take 5 capsules this am- prn olanzapine given - this afternoon for behaviors on unit- 10/31/24 wrote for liquid depakote option if refuses capsules, also got prn olanzapine for throwing self on floor 11/01 keep same treatment 11/02 increase Zyprexa to 20 mg p.o. q.h.s. 11/03 keep same treatment. 11/04 discontinue Depakote and start Trileptal 300 mg p.o. b.i.d.. Her healthcare proxy will bring a copy of that we are going to invoke it 11/06 increase olanzapine to 20mg po qhs and 10mg po daily. 11/07 continue tx. 12/04 continue tx. 12/05: no changes 12/06 continue tx. 12/12: continue plan of care 12/13: continue tx 12/19 continue current tx plan 12/25: appearing sedated, more of a falls risk, poorer ability to do ADLs. decrease trileptal dosing from 600 BID to 300 BID for now. 12/26: less sedated than yesterday, continue current mgmt, including 1:1, until attending can see pt in the morning. 12/30: continues less sedated. minimally interactive. continue current mgmt. 12/31: per HCP, not at baseline, over-sedated. begin valium taper. decrease valium 5 TID to 4 TID for now. per HCP and SW, HCP has been affirmed in court. IM back-up orders in place and to be enforced by nursing staff. no aggressive or agitated behaviors. 01/02: Continue current regimen and plans Plan 1. Continue with olanzapine 10 mg p.o. q.a.m. and 20 mg p.o. q.h.s., he refused p.o. he received olanzapine IM. 2. Continue with Valium 5 mg p.o. t.i.d. if he refuses he will get Valium IM. 3. We will encourage compliance. The patient had been noncompliant with sertraline, he remains dysphoric. 4. The patient has a healthcare proxy who was affirmed by court, and they want us to medicate him even if the patient does not want to be compliant. 5. At this moment the patient is slightly over-sedated with EPS but we will keep the same dose of antipsychotics since his violence has improved. 01/03/25 Continue plan of care Reassess treatment plan which includes IM medication patient has been much less aggressive than he has in the past Unclear discharge plan at this point 01/04/2025 Patient taking Valium and olanzapine regularly has IM prescribed if refuses intermittently taking medication for diabetes hypertension 01/05/25 Cont medicationhas been stabilizing try and d/c meds that are not esential simplify regimen 01/06/25 stop namenda monitor sugar / bp encourage med acceptance cont valium olanzapine 01/08/2025 Continue olanzapine Valium metformin try and taper and simplify medication as tolerated discharge planning monitor response to change in medication 01/09/25 Try and simplify med regimen d/c planning 01/11/2025 Patient generally more cooperative not agitated generally monitor blood sugar and blood pressure intermittently refuses some doses of metformin 01/12/25 Pt seen later in day seemed stable flat some balance problems noted lowwer trileptal and primidone ck ortho vs dailypt consult for balance 01/13/2025 Patient improving less reactive has not been aggressive more cooperative with treatment and medication. Discharge planning 01/14: fell this morning, per head/c-spine CT and pelvic XR, no osseus injuries. pt appears as at recent mental status. no complaints or requests other than for wheelchair. pt will have 1:1 for ambulation for now. continue current psychopharm mgmt. 01/15: Continue current management and treatment plan. 01/16: continue current management and treatment plan. 01/17 keep same treatment. 01/18 keep same treatment 01/19 keep same treatment 01/20 keep same treatment 01/21 keep same treatment 01/22: calm, cooperative, flat. no questions or complaints. stable presentation. continue current mgmt. 01/23: no change, continue current mgmt. 01/24: stable. continue current mgmt. reps from [facility] coming to [facility] pt for placement today. 01/25/2025 Patient in behavioral control vital signs stable generally accepting treatment continue discharge planning 01/26/2025 Patient generally cooperative seen in the milieu no aggression suicidality or her problematic behavior. Discharge planning strongly urged transition 01/27/2025 Patient continues to be generally stabilizing not combative agitated or threatening has remained generally calm seems safe for discharge planning much improved over time 01/28/2025 Patient seen psychiatric follow-up patient has significantly improved over the months he is calm cooperative seen watching television somewhat social at times not aggressive or combative 01/29 Continue current regime/plan. Improved. 01/31: stably improved. awaiting placement. continue current mgmt. 02/01: stable. continue current mgmt. awaiting placement. 02/02: no change in presentation or plan. 02/03: stable. continue current mgmt. 02/04/2025 Patient seen psychiatric follow-up no current behavioral difficulties no current ability to place patient in a less restricted setting 02/06: no change in presentation. continue current mgmt. 02/07/25 cont d/c planning pt has been tentatively accepted no less restrictive setting currently available 02/09: valium fell of scripts 02/05, since then tremor and paranoia toward nursing staff returned. restart valium 4 TID now, otherwise continue current mgmt. 02/11: improved from 02/09 in terms of tremor and paranoia. some residual of both, however. expecting continued improvements as getting reestablished on valium. continue current mgmt. 02/12: Continue plans and regimen 02/13: Continue current plans and regimen Reason for continued inpatient stay Substantial Risk for: inability to function and med/psych decompensation Time Spent With Patient Time: Total time managing care of this patient today ____ minutes.
[2025-02-13] MEDS: metFORMIN HCl ER 500 MG TAB.ER.24H 1000 MG PO (09:11)
[2025-02-13] MEDS: lisinopriL 20 MG TABLET PO (09:11)
[2025-02-13] MEDS: Primidone 50 MG TABLET 25 MG PO ×2 (09:11→20:12)
[2025-02-13] MEDS: Empagliflozin 10 MG TABLET PO (09:11)
[2025-02-13] MEDS: diazePAM 2 MG TABLET 4 MG PO ×3 (09:12→20:12)
[2025-02-13 20:00] VITALS: BP 99/63; PULSE 64; RESP 17; TEMP 36.8; O2SAT 100
[2025-02-13] MEDS: OXcarbazepine 300 MG TABLET PO (20:11)
[2025-02-13] MEDS: Sertraline HCL 100 MG TABLET PO (20:11)
[2025-02-13] MEDS: OLANZapine 10 MG TABLET 20 MG PO (20:11)
[2025-02-13] MEDS: Mirtazapine 30 MG TABLET PO (20:12)
[2025-02-14 08:08] VITALS: BP 127/66; PULSE 82; RESP 20; TEMP 36.4; O2SAT 100
[2025-02-14] MEDS: lisinopriL 20 MG TABLET PO (08:12)
[2025-02-14] MEDS: diazePAM 2 MG TABLET 4 MG PO ×3 (08:12→20:20)
[2025-02-14] MEDS: Primidone 50 MG TABLET 25 MG PO ×2 (08:13→20:20)
[2025-02-14] MEDS: Empagliflozin 10 MG TABLET PO (08:14)
[2025-02-14] MEDS: metFORMIN HCl ER 500 MG TAB.ER.24H 1000 MG PO (08:16)
--- NOTE | 2025-02-14 14:41 | P.PNPSI_ITS ---
Subjective Subjective Date of Service: 02/14/25 Reason For Visit: Anxiety, mood disorder, ASD Interim History: Met with patient; discussed with team; reviewed chart Patient tells [facility] underwriter he is hanging in there he says it can be hard sometimes to do so but it is overall going okay. Patient took all medications today; nurse however reports that recently he seemed a little suspicious, on the verge of picking over medications. Mental Status Exam Mental Status Exam Patient Appearance: Appropriate and Unkempt Patient Orientation: Person Level of Consciousness: Awake and Appropriate Patient Behavior: Appropriate and Guarded (a little) Mood Description: Constricted ( hanging in there ) Affect Description: Constricted Patient Cognition Impaired: Yes Ability to Follow Directions: Fair Speech Pattern: Clear Hallucinations: None Delusions: Not Present Thought Process: Distracted and Slowed Thinking Thought Content: positive for [place] and positive for Poverty of Content Judgement: Poor Diagnostics Vital Signs (24Hr): Vital Signs - 24 hr 02/13/25 20:00 02/14/25 08:08 Temperature 98.2 F 97.6 F Pulse Rate 64 82 Respiratory Rate 17 20 Blood Pressure 99/63 127/66 Pulse Oximetry 100 100 Oxygen Delivery Method Room Air Room Air BMI result Body Mass Index 27.5 Labs 10/28/24 09:10 02/11/25 07:40 Imaging Radiology Impressions: ITS Impressions Hip X-Ray 01/12/25 13:30 IMPRESSION: No evidence of fracture of the bilateral hips. Electronically signed by: Kaushal Soni MD 01/12/2025 01:54 PM EDT RP Cervical Spine CT 01/14/25 07:59 IMPRESSION: Multilevel cervical spondylosis without acute fracture or trauma-related listhesis. Fleischner guidelines were followed. Electronically signed by: Abe Griffin MD 01/14/2025 09:50 AM EDT RP Head CT 01/14/25 08:30 IMPRESSION: No acute intracranial abnormality. No fracture seen. Electronically signed by: Chidi Rodriguez MD 01/17/2025 01:08 PM EDT RP Hip/Pelvis X-Ray 01/14/25 09:10 IMPRESSION: No acute fracture or dislocation. Electronically signed by: Abe Griffin MD 01/14/2025 10:35 AM EDT RP Medications Medications Current Medications Acetaminophen (Acetaminophen 325 Mg Tablet) 650 mg PO Q6H PRN PRN Reason: pain scale (1-10) Benztropine Mesylate (Benztropine Mesylate 1 Mg Tablet) 1 mg PO BEDTIME PRN PRN Reason: Extrapyramidal Effects Diazepam (Diazepam 10 Mg/2 Ml Cartridge) 5 mg IM TID PRN PRN Reason: PO refusal. HOLD FOR SEDATION Last Admin: 12/21/24 10:22 Dose: 5 mg Diazepam (Diazepam 2 Mg Tablet) 4 mg PO TID [facility] Last Admin: 02/14/25 08:12 Dose: 4 mg Empagliflozin (Empagliflozin 10 Mg Tablet) 10 mg PO DAILY [facility] Last Admin: 02/14/25 08:14 Dose: 10 mg Lisinopril (Lisinopril 20 Mg Tablet) 20 mg PO DAILY [facility]; Protocol Last Admin: 02/14/25 08:12 Dose: 20 mg Magnesium Hydroxide (Milk Of Magnesia 30 Ml Oral.Susp) 30 ml PO DAILY PRN PRN Reason: Constipation Last Admin: 02/04/25 14:59 Dose: 30 ml Metformin HCl (Metformin Hcl Er 500 Mg Tab.Er.24h) 1,000 mg PO DAILY [facility] Last Admin: 02/14/25 08:16 Dose: 1,000 mg Mirtazapine (Mirtazapine 30 Mg Tablet) 30 mg PO BEDTIME [facility] Last Admin: 02/13/25 20:12 Dose: 30 mg Nicotine Polacrilex (Nicotine Polacrilex 2 Mg Gum) 4 mg BUCCAL Q2H PRN PRN Reason: Nicotine Cravings Olanzapine (Olanzapine 10 Mg Tablet) 20 mg PO BEDTIME [facility] Last Admin: 02/13/25 20:11 Dose: 20 mg Olanzapine (Olanzapine 10 Mg Vial) 10 mg IM BID PRN PRN Reason: PO refusal Last Admin: 12/21/24 10:22 Dose: 10 mg Olanzapine (Olanzapine Odt 10 Mg Tab.Rapdis) 10 mg TRANSLINGU BID PRN PRN Reason: agitation Last Admin: 01/14/25 12:16 Dose: 10 mg Oxcarbazepine (Oxcarbazepine 300 Mg Tablet) 300 mg PO BEDTIME [facility] Last Admin: 02/13/25 20:11 Dose: 300 mg Primidone (Primidone 50 Mg Tablet) 25 mg PO BID [facility] Last Admin: 02/14/25 08:13 Dose: 25 mg Sertraline HCl (Sertraline Hcl 100 Mg Tablet) 100 mg PO BEDTIME [facility] Last Admin: 02/13/25 20:11 Dose: 100 mg Trazodone HCl (Trazodone Hcl 50 Mg Tablet) 50 mg PO BEDTIME PRN PRN Reason: Insomnia Allergies Allergies Allergy/AdvReac Type Severity Reaction Status Date / Time No Known Allergies Allergy Verified 10/14/24 18:14 [No Known Allergies*] Assessment & Plan Assessment & Plan (1) Mood disorder: Status: Acute Code(s): F39 - Unspecified mood [affective] disorder (2) Autism spectrum disorder: Status: Acute Code(s): F84.0 - Autistic disorder (3) Dementia: Status: Acute Code(s): F03.90 - Unspecified dementia, unspecified severity, without behavioral disturbance, psychotic disturbance, mood disturbance, and anxiety Plan Humza was admitted for safety and stabilization. His presentation is very similar to his last admission psychiatrically about a year ago and that is why his caregivers wanted to get ahead of things before he decompensated further. Current medications were reviewed and maintained. Contacts to be made with his treaters next week. 10/17: Continue current regimen and plans 10/19: Continue current tx plan and regime. 10/21: Memantine 5 mg daily- [facility], memory sx Abilify 2 mg daily-augment to antidepressants currently being used. 10/22 continue current tx plan -pt confused 10/23 Continue trials, regime and plan. 10/24: Continue regime and plan of care. 10/25 Abilify increased up to 5 mg. 10/26 keep on same treatment 10/27/24 continues with many complaints, no clear insight into self- 10/28 continue same treatment 10/29 increase Namenda to 5 mg p.o. b.i.d. and change Depakote to Depakene. Depakote level on 13/02 as per blood work of yesterday 10/30/24 - [facility] [employer] olanzapine = continue depakene as he did take 5 capsules this am- prn olanzapine given - this afternoon for behaviors on unit- 10/31/24 wrote for liquid depakote option if refuses capsules, also got prn olanzapine for throwing self on floor 11/01 keep same treatment 11/02 increase Zyprexa to 20 mg p.o. q.h.s. 11/03 keep same treatment. 11/04 discontinue Depakote and start Trileptal 300 mg p.o. b.i.d.. Her healthcare proxy will bring a copy of that we are going to invoke it 11/06 increase olanzapine to 20mg po qhs and 10mg po daily. 11/07 continue tx. 12/04 continue tx. 12/05: no changes 12/06 continue tx. 12/12: continue plan of care 12/13: continue tx 12/19 continue current tx plan 12/25: appearing sedated, more of a falls risk, poorer ability to do ADLs. decrease trileptal dosing from 600 BID to 300 BID for now. 12/26: less sedated than yesterday, continue current mgmt, including 1:1, until attending can see pt in the morning. 12/30: continues less sedated. minimally interactive. continue current mgmt. 12/31: per HCP, not at baseline, over-sedated. begin valium taper. decrease valium 5 TID to 4 TID for now. per HCP and SW, HCP has been affirmed in court. IM back-up orders in place and to be enforced by nursing staff. no aggressive or agitated behaviors. 01/02: Continue current regimen and plans Plan 1. Continue with olanzapine 10 mg p.o. q.a.m. and 20 mg p.o. q.h.s., he refused p.o. he received olanzapine IM. 2. Continue with Valium 5 mg p.o. t.i.d. if he refuses he will get Valium IM. 3. We will encourage compliance. The patient had been noncompliant with sertraline, he remains dysphoric. 4. The patient has a healthcare proxy who was affirmed by court, and they want us to medicate him even if the patient does not want to be compliant. 5. At this moment the patient is slightly over-sedated with EPS but we will keep the same dose of antipsychotics since his violence has improved. 01/03/25 Continue plan of care Reassess treatment plan which includes IM medication patient has been much less aggressive than he has in the past Unclear discharge plan at this point 01/04/2025 Patient taking Valium and olanzapine regularly has IM prescribed if refuses intermittently taking medication for diabetes hypertension 01/05/25 Cont medicationhas been stabilizing try and d/c meds that are not esential simplify regimen 01/06/25 stop namenda monitor sugar / bp encourage med acceptance cont valium olanzapine 01/08/2025 Continue olanzapine Valium metformin try and taper and simplify medication as tolerated discharge planning monitor response to change in medication 01/09/25 Try and simplify med regimen d/c planning 01/11/2025 Patient generally more cooperative not agitated generally monitor blood sugar and blood pressure intermittently refuses some doses of metformin 01/12/25 Pt seen later in day seemed stable flat some balance problems noted lowwer trileptal and primidone ck ortho vs dailypt consult for balance 01/13/2025 Patient improving less reactive has not been aggressive more cooperative with treatment and medication. Discharge planning 01/14: fell this morning, per head/c-spine CT and pelvic XR, no osseus injuries. pt appears as at recent mental status. no complaints or requests other than for wheelchair. pt will have 1:1 for ambulation for now. continue current psychopharm mgmt. 01/15: Continue current management and treatment plan. 01/16: continue current management and treatment plan. 01/17 keep same treatment. 01/18 keep same treatment 01/19 keep same treatment 01/20 keep same treatment 01/21 keep same treatment 01/22: calm, cooperative, flat. no questions or complaints. stable presentation. continue current mgmt. 01/23: no change, continue current mgmt. 01/24: stable. continue current mgmt. reps from [facility] coming to [facility] pt for placement today. 01/25/2025 Patient in behavioral control vital signs stable generally accepting treatment continue discharge planning 01/26/2025 Patient generally cooperative seen in the milieu no aggression suicidality or her problematic behavior. Discharge planning strongly urged transition 01/27/2025 Patient continues to be generally stabilizing not combative agitated or threatening has remained generally calm seems safe for discharge planning much improved over time 01/28/2025 Patient seen psychiatric follow-up patient has significantly improved over the months he is calm cooperative seen watching television somewhat social at times not aggressive or combative 01/29 Continue current regime/plan. Improved. 01/31: stably improved. awaiting placement. continue current mgmt. 02/01: stable. continue current mgmt. awaiting placement. 02/02: no change in presentation or plan. 02/03: stable. continue current mgmt. 02/04/2025 Patient seen psychiatric follow-up no current behavioral difficulties no current ability to place patient in a less restricted setting 02/06: no change in presentation. continue current mgmt. 02/07/25 cont d/c planning pt has been tentatively accepted no less restrictive setting currently available 02/08/2025 Continue discharge planning patient tentatively accepted no funding source available at this time no less restrictive setting available 02/14 Patient tells [facility] underwriter he is hanging in there he says it can be hard sometimes to do so but it is overall going okay. Patient took all medications today; nurse however reports that recently he seemed a little suspicious, on the verge of picking over medications. -vitals WNL -no new labs Patient educated on: diagnosis Informed Consent: does not understand Reason for continued inpatient stay Substantial Risk for: inability to function Time Spent With Patient Time: Total time managing care of this patient today ____ minutes.
[2025-02-14 20:00] VITALS: BP 95/59; PULSE 69; TEMP 36.6; O2SAT 100
[2025-02-14] MEDS: OLANZapine 10 MG TABLET 20 MG PO (20:20)
[2025-02-14] MEDS: Sertraline HCL 100 MG TABLET PO (20:20)
[2025-02-14] MEDS: OXcarbazepine 300 MG TABLET PO (20:20)
[2025-02-14] MEDS: Mirtazapine 30 MG TABLET PO (20:20)
[2025-02-15 08:26] VITALS: BP 109/56; PULSE 77; RESP 16; TEMP 36.2; O2SAT 97
[2025-02-15] MEDS: diazePAM 2 MG TABLET 4 MG PO ×3 (08:27→20:02)
[2025-02-15] MEDS: metFORMIN HCl ER 500 MG TAB.ER.24H 1000 MG PO (08:28)
[2025-02-15] MEDS: Primidone 50 MG TABLET 25 MG PO ×2 (08:28→20:03)
[2025-02-15] MEDS: lisinopriL 20 MG TABLET PO (08:29)
[2025-02-15] MEDS: Empagliflozin 10 MG TABLET PO (08:30)
[2025-02-15 20:00] VITALS: BP 123/67; PULSE 73; RESP 17; TEMP 36.3; O2SAT 99
[2025-02-15] MEDS: Mirtazapine 30 MG TABLET PO (20:02)
[2025-02-15] MEDS: OXcarbazepine 300 MG TABLET PO (20:03)
[2025-02-15] MEDS: OLANZapine 10 MG TABLET 20 MG PO (20:03)
[2025-02-15] MEDS: Sertraline HCL 100 MG TABLET PO (20:03)
--- NOTE | 2025-02-15 22:52 | P.PNPSI_ITS ---
Subjective Subjective Date of Service: 02/15/25 Reason For Visit: Anxiety, mood disorder, ASD Subjective Notes: Conditional Voluntary Interim History: Patient continues to generally do okay attending different groups sleep and appetite okay no episodes of violence has been quite cooperative doing well Mental Status Exam Mental Status Exam Patient Appearance: Appropriate and Unkempt Patient Orientation: Person Level of Consciousness: Awake and Appropriate Patient Behavior: Appropriate and Guarded (a little) Mood Description: Constricted ( hanging in there ) Affect Description: Constricted Patient Cognition Impaired: Yes Ability to Follow Directions: Fair Speech Pattern: Clear Hallucinations: None Delusions: Not Present Thought Process: Distracted and Slowed Thinking Thought Content: positive for [place] and positive for Poverty of Content Judgement: Poor Diagnostics Vital Signs (24Hr): Vital Signs - 24 hr 02/15/25 08:26 02/15/25 20:00 Temperature 97.2 F 97.4 F Pulse Rate 77 73 Respiratory Rate 16 17 Blood Pressure 109/56 L 123/67 Pulse Oximetry 97 99 Oxygen Delivery Method Room Air Room Air BMI result Body Mass Index 27.5 Labs 10/28/24 09:10 02/11/25 07:40 Imaging Radiology Impressions: ITS Impressions Hip X-Ray 01/12/25 13:30 IMPRESSION: No evidence of fracture of the bilateral hips. Electronically signed by: Kaushal Soni MD 01/12/2025 01:54 PM EDT RP Cervical Spine CT 01/14/25 07:59 IMPRESSION: Multilevel cervical spondylosis without acute fracture or trauma-related listhesis. Fleischner guidelines were followed. Electronically signed by: Abe Griffin MD 01/14/2025 09:50 AM EDT RP Head CT 01/14/25 08:30 IMPRESSION: No acute intracranial abnormality. No fracture seen. Electronically signed by: Chidi Rodriguez MD 01/17/2025 01:08 PM EDT RP Hip/Pelvis X-Ray 01/14/25 09:10 IMPRESSION: No acute fracture or dislocation. Electronically signed by: Abe Griffin MD 01/14/2025 10:35 AM EDT RP Medications Medications Current Medications Acetaminophen (Acetaminophen 325 Mg Tablet) 650 mg PO Q6H PRN PRN Reason: pain scale (1-10) Benztropine Mesylate (Benztropine Mesylate 1 Mg Tablet) 1 mg PO BEDTIME PRN PRN Reason: Extrapyramidal Effects Diazepam (Diazepam 10 Mg/2 Ml Cartridge) 5 mg IM TID PRN PRN Reason: PO refusal. HOLD FOR SEDATION Last Admin: 12/21/24 10:22 Dose: 5 mg Diazepam (Diazepam 2 Mg Tablet) 4 mg PO TID DESIRAE Last Admin: 02/15/25 20:02 Dose: 4 mg Empagliflozin (Empagliflozin 10 Mg Tablet) 10 mg PO DAILY DESIRAE Last Admin: 02/15/25 08:30 Dose: 10 mg Lisinopril (Lisinopril 20 Mg Tablet) 20 mg PO DAILY DESIRAE; Protocol Last Admin: 02/15/25 08:29 Dose: 20 mg Magnesium Hydroxide (Milk Of Magnesia 30 Ml Oral.Susp) 30 ml PO DAILY PRN PRN Reason: Constipation Last Admin: 02/04/25 14:59 Dose: 30 ml Metformin HCl (Metformin Hcl Er 500 Mg Tab.Er.24h) 1,000 mg PO DAILY DESIRAE Last Admin: 02/15/25 08:28 Dose: 1,000 mg Mirtazapine (Mirtazapine 30 Mg Tablet) 30 mg PO BEDTIME DESIRAE Last Admin: 02/15/25 20:02 Dose: 30 mg Nicotine Polacrilex (Nicotine Polacrilex 2 Mg Gum) 4 mg BUCCAL Q2H PRN PRN Reason: Nicotine Cravings Olanzapine (Olanzapine 10 Mg Tablet) 20 mg PO BEDTIME DESIRAE Last Admin: 02/15/25 20:03 Dose: 20 mg Olanzapine (Olanzapine 10 Mg Vial) 10 mg IM BID PRN PRN Reason: PO refusal Last Admin: 12/21/24 10:22 Dose: 10 mg Olanzapine (Olanzapine Odt 10 Mg Tab.Rapdis) 10 mg TRANSLINGU BID PRN PRN Reason: agitation Last Admin: 01/14/25 12:16 Dose: 10 mg Oxcarbazepine (Oxcarbazepine 300 Mg Tablet) 300 mg PO BEDTIME DESIRAE Last Admin: 02/15/25 20:03 Dose: 300 mg Primidone (Primidone 50 Mg Tablet) 25 mg PO BID DESIRAE Last Admin: 02/15/25 20:03 Dose: 25 mg Sertraline HCl (Sertraline Hcl 100 Mg Tablet) 100 mg PO BEDTIME DESIRAE Last Admin: 02/15/25 20:03 Dose: 100 mg Trazodone HCl (Trazodone Hcl 50 Mg Tablet) 50 mg PO BEDTIME PRN PRN Reason: Insomnia Allergies Allergies Allergy/AdvReac Type Severity Reaction Status Date / Time No Known Allergies Allergy Verified 10/14/24 18:14 [No Known Allergies*] Assessment & Plan Assessment & Plan (1) Mood disorder: Status: Acute Code(s): F39 - Unspecified mood [affective] disorder (2) Autism spectrum disorder: Status: Acute Code(s): F84.0 - Autistic disorder (3) Dementia: Status: Acute Code(s): F03.90 - Unspecified dementia, unspecified severity, without behavioral disturbance, psychotic disturbance, mood disturbance, and anxiety Plan Humza was admitted for safety and stabilization. His presentation is very similar to his last admission psychiatrically about a year ago and that is why his caregivers wanted to get ahead of things before he decompensated further. Current medications were reviewed and maintained. Contacts to be made with his treaters next week. 10/17: Continue current regimen and plans 10/19: Continue current tx plan and regime. 10/21: Memantine 5 mg daily- [facility], memory sx Abilify 2 mg daily-augment to antidepressants currently being used. 10/22 continue current tx plan -pt confused 10/23 Continue trials, regime and plan. 10/24: Continue regime and plan of care. 10/25 Abilify increased up to 5 mg. 10/26 keep on same treatment 10/27/24 continues with many complaints, no clear insight into self- 10/28 continue same treatment 10/29 increase Namenda to 5 mg p.o. b.i.d. and change Depakote to Depakene. Depakote level on 13/02 as per blood work of yesterday 10/30/24 - ar [employer] olanzapine = continue depakene as he did take 5 capsules this am- prn olanzapine given - this afternoon for behaviors on unit- 10/31/24 wrote for liquid depakote option if refuses capsules, also got prn olanzapine for throwing self on floor 11/01 keep same treatment 11/02 increase Zyprexa to 20 mg p.o. q.h.s. 11/03 keep same treatment. 11/04 discontinue Depakote and start Trileptal 300 mg p.o. b.i.d.. Her healthcare proxy will bring a copy of that we are going to invoke it 11/06 increase olanzapine to 20mg po qhs and 10mg po daily. 11/07 continue tx. 12/04 continue tx. 12/05: no changes 12/06 continue tx. 12/12: continue plan of care 12/13: continue tx 12/19 continue current tx plan 12/25: appearing sedated, more of a falls risk, poorer ability to do ADLs. decrease trileptal dosing from 600 BID to 300 BID for now. 12/26: less sedated than yesterday, continue current mgmt, including 1:1, until attending can see pt in the morning. 12/30: continues less sedated. minimally interactive. continue current mgmt. 12/31: per HCP, not at baseline, over-sedated. begin valium taper. decrease valium 5 TID to 4 TID for now. per HCP and SW, HCP has been affirmed in court. IM back-up orders in place and to be enforced by nursing staff. no aggressive or agitated behaviors. 01/02: Continue current regimen and plans Plan 1. Continue with olanzapine 10 mg p.o. q.a.m. and 20 mg p.o. q.h.s., he refused p.o. he received olanzapine IM. 2. Continue with Valium 5 mg p.o. t.i.d. if he refuses he will get Valium IM. 3. We will encourage compliance. The patient had been noncompliant with sertraline, he remains dysphoric. 4. The patient has a healthcare proxy who was affirmed by court, and they want us to medicate him even if the patient does not want to be compliant. 5. At this moment the patient is slightly over-sedated with EPS but we will keep the same dose of antipsychotics since his violence has improved. 01/03/25 Continue plan of care Reassess treatment plan which includes IM medication patient has been much less aggressive than he has in the past Unclear discharge plan at this point 01/04/2025 Patient taking Valium and olanzapine regularly has IM prescribed if refuses intermittently taking medication for diabetes hypertension 01/05/25 Cont medicationhas been stabilizing try and d/c meds that are not esential simplify regimen 01/06/25 stop namenda monitor sugar / bp encourage med acceptance cont valium olanzapine 01/08/2025 Continue olanzapine Valium metformin try and taper and simplify medication as tolerated discharge planning monitor response to change in medication 01/09/25 Try and simplify med regimen d/c planning 01/11/2025 Patient generally more cooperative not agitated generally monitor blood sugar and blood pressure intermittently refuses some doses of metformin 01/12/25 Pt seen later in day seemed stable flat some balance problems noted lowwer trileptal and primidone ck ortho vs dailypt consult for balance 01/13/2025 Patient improving less reactive has not been aggressive more cooperative with treatment and medication. Discharge planning 01/14: fell this morning, per head/c-spine CT and pelvic XR, no osseus injuries. pt appears as at recent mental status. no complaints or requests other than for wheelchair. pt will have 1:1 for ambulation for now. continue current psychopharm mgmt. 01/15: Continue current management and treatment plan. 01/16: continue current management and treatment plan. 01/17 keep same treatment. 01/18 keep same treatment 01/19 keep same treatment 01/20 keep same treatment 01/21 keep same treatment 01/22: calm, cooperative, flat. no questions or complaints. stable presentation. continue current mgmt. 01/23: no change, continue current mgmt. 01/24: stable. continue current mgmt. reps from [facility] coming [facility] pt for placement today. 01/25/2025 Patient in behavioral control vital signs stable generally accepting treatment continue discharge planning 01/26/2025 Patient generally cooperative seen in the milieu no aggression suicidality or her problematic behavior. Discharge planning strongly urged transition 01/27/2025 Patient continues to be generally stabilizing not combative agitated or threatening has remained generally calm seems safe for discharge planning much improved over time 01/28/2025 Patient seen psychiatric follow-up patient has significantly improved over the months he is calm cooperative seen watching television somewhat social at times not aggressive or combative 01/29 Continue current regime/plan. Improved. 01/31: stably improved. awaiting placement. continue current mgmt. 02/01: stable. continue current mgmt. awaiting placement. 02/02: no change in presentation or plan. 02/03: stable. continue current mgmt. 02/04/2025 Patient seen psychiatric follow-up no current behavioral difficulties no current ability to place patient in a less restricted setting 02/06: no change in presentation. continue current mgmt. 02/07/25 cont d/c planning pt has been tentatively accepted no less restrictive setting currently available 02/08/2025 Continue discharge planning patient tentatively accepted no funding source available at this time no less restrictive setting available 02/14 Patient tells press writer he is hanging in there he says it can be hard sometimes to do so but it is overall going okay. Patient took all medications today; nurse however reports that recently he seemed a little suspicious, on the verge of picking over medications. -vitals WNL -no new labs 02/15/2025 Patient states he is doing okay understands he is waiting for some form of placement. Accepting treatment vital signs unremarkable continue plan of care discharge plan Reason for continued inpatient stay Substantial Risk for: inability to function and rapid decompensation Time Spent With Patient Time: Total time managing care of this patient today ____ minutes.
[2025-02-16 08:00] VITALS: BP 111/70; PULSE 71; RESP 16; TEMP 36.4; O2SAT 98
[2025-02-16] MEDS: Primidone 50 MG TABLET 25 MG PO ×2 (08:21→20:43)
[2025-02-16] MEDS: diazePAM 2 MG TABLET 4 MG PO ×3 (08:21→20:41)
[2025-02-16] MEDS: metFORMIN HCl ER 500 MG TAB.ER.24H 1000 MG PO (08:22)
[2025-02-16] MEDS: lisinopriL 20 MG TABLET PO (08:22)
[2025-02-16] MEDS: Empagliflozin 10 MG TABLET PO (08:22)
[2025-02-16 20:00] VITALS: BP 104/57; PULSE 63; RESP 18; TEMP 36.5; O2SAT 100
[2025-02-16] MEDS: Mirtazapine 30 MG TABLET PO (20:42)
[2025-02-16] MEDS: OXcarbazepine 300 MG TABLET PO (20:43)
[2025-02-16] MEDS: OLANZapine 10 MG TABLET 20 MG PO (20:43)
[2025-02-16] MEDS: Sertraline HCL 100 MG TABLET PO (20:44)
[2025-02-17 07:00] VITALS: BMI 26.5
[2025-02-17 08:00] VITALS: BP 114/64; PULSE 73; RESP 18; TEMP 36; O2SAT 98
[2025-02-17] MEDS: Primidone 50 MG TABLET 25 MG PO ×2 (08:08→19:39)
[2025-02-17] MEDS: lisinopriL 20 MG TABLET PO (08:09)
[2025-02-17] MEDS: Empagliflozin 10 MG TABLET PO (08:09)
[2025-02-17] MEDS: diazePAM 2 MG TABLET 4 MG PO ×3 (08:09→19:38)
[2025-02-17] MEDS: metFORMIN HCl ER 500 MG TAB.ER.24H 1000 MG PO (08:10)
[2025-02-17 19:37] VITALS: BP 116/63; PULSE 65; RESP 16; TEMP 36.3; O2SAT 95
[2025-02-17] MEDS: Mirtazapine 30 MG TABLET PO (19:39)
[2025-02-17] MEDS: OLANZapine 10 MG TABLET 20 MG PO (19:39)
[2025-02-17] MEDS: OXcarbazepine 300 MG TABLET PO (19:39)
[2025-02-17] MEDS: Sertraline HCL 100 MG TABLET PO (19:39)
--- NOTE | 2025-02-17 22:05 | P.PNPSI_ITS ---
Subjective Subjective Date of Service: 02/16/25 Reason For Visit: Anxiety, mood disorder, ASD Subjective Notes: Conditional Voluntary Interim History: Patient continues generally unremarkable mood stable mostly socially engaged some frustration about situation Mental Status Exam Mental Status Exam Patient Appearance: Appropriate Patient Orientation: Person Level of Consciousness: Awake and Appropriate Patient Behavior: Appropriate and Guarded (a little) Mood Description: Constricted ( hanging in there ) Affect Description: Constricted Patient Cognition Impaired: Yes Ability to Follow Directions: Fair Speech Pattern: Clear Hallucinations: None Delusions: Not Present Thought Process: Distracted and Slowed Thinking Thought Content: positive for [place] and positive for Poverty of Content Judgement: Poor Diagnostics Vital Signs (24Hr): Vital Signs - 24 hr 02/17/25 08:00 02/17/25 19:37 Temperature 96.8 F 97.3 F Pulse Rate 73 65 Respiratory Rate 18 16 Blood Pressure 114/64 116/63 Pulse Oximetry 98 95 Oxygen Delivery Method Room Air Room Air BMI result Body Mass Index 26.5 Labs 10/28/24 09:10 02/11/25 07:40 Imaging Radiology Impressions: ITS Impressions Hip X-Ray 01/12/25 13:30 IMPRESSION: No evidence of fracture of the bilateral hips. Electronically signed by: Kaushal Soni MD 01/12/2025 01:54 PM EDT RP Cervical Spine CT 01/14/25 07:59 IMPRESSION: Multilevel cervical spondylosis without acute fracture or trauma-related listhesis. Fleischner guidelines were followed. Electronically signed by: Abe Griffin MD 01/14/2025 09:50 AM EDT RP Head CT 01/14/25 08:30 IMPRESSION: No acute intracranial abnormality. No fracture seen. Electronically signed by: Chidi Rodriguez MD 01/17/2025 01:08 PM EDT RP Hip/Pelvis X-Ray 01/14/25 09:10 IMPRESSION: No acute fracture or dislocation. Electronically signed by: Abe Griffin MD 01/14/2025 10:35 AM EDT RP Medications Medications Current Medications Acetaminophen (Acetaminophen 325 Mg Tablet) 650 mg PO Q6H PRN PRN Reason: pain scale (1-10) Benztropine Mesylate (Benztropine Mesylate 1 Mg Tablet) 1 mg PO BEDTIME PRN PRN Reason: Extrapyramidal Effects Diazepam (Diazepam 10 Mg/2 Ml Cartridge) 5 mg IM TID PRN PRN Reason: PO refusal. HOLD FOR SEDATION Last Admin: 12/21/24 10:22 Dose: 5 mg Diazepam (Diazepam 2 Mg Tablet) 4 mg PO TID DESIRAE Last Admin: 02/17/25 19:38 Dose: 4 mg Empagliflozin (Empagliflozin 10 Mg Tablet) 10 mg PO DAILY DESIRAE Last Admin: 02/17/25 08:09 Dose: 10 mg Lisinopril (Lisinopril 20 Mg Tablet) 20 mg PO DAILY DESIRAE; Protocol Last Admin: 02/17/25 08:09 Dose: 20 mg Magnesium Hydroxide (Milk Of Magnesia 30 Ml Oral.Susp) 30 ml PO DAILY PRN PRN Reason: Constipation Last Admin: 02/04/25 14:59 Dose: 30 ml Metformin HCl (Metformin Hcl Er 500 Mg Tab.Er.24h) 1,000 mg PO DAILY DESIRAE Last Admin: 02/17/25 08:10 Dose: 1,000 mg Mirtazapine (Mirtazapine 30 Mg Tablet) 30 mg PO BEDTIME DESIRAE Last Admin: 02/17/25 19:39 Dose: 30 mg Nicotine Polacrilex (Nicotine Polacrilex 2 Mg Gum) 4 mg BUCCAL Q2H PRN PRN Reason: Nicotine Cravings Olanzapine (Olanzapine 10 Mg Tablet) 20 mg PO BEDTIME DESIRAE Last Admin: 02/17/25 19:39 Dose: 20 mg Olanzapine (Olanzapine 10 Mg Vial) 10 mg IM BID PRN PRN Reason: PO refusal Last Admin: 12/21/24 10:22 Dose: 10 mg Olanzapine (Olanzapine Odt 10 Mg Tab.Rapdis) 10 mg TRANSLINGU BID PRN PRN Reason: agitation Last Admin: 01/14/25 12:16 Dose: 10 mg Oxcarbazepine (Oxcarbazepine 300 Mg Tablet) 300 mg PO BEDTIME DESIRAE Last Admin: 02/17/25 19:39 Dose: 300 mg Primidone (Primidone 50 Mg Tablet) 25 mg PO BID DESIRAE Last Admin: 02/17/25 19:39 Dose: 25 mg Sertraline HCl (Sertraline Hcl 100 Mg Tablet) 100 mg PO BEDTIME DESIRAE Last Admin: 02/17/25 19:39 Dose: 100 mg Trazodone HCl (Trazodone Hcl 50 Mg Tablet) 50 mg PO BEDTIME PRN PRN Reason: Insomnia Allergies Allergies Allergy/AdvReac Type Severity Reaction Status Date / Time No Known Allergies Allergy Verified 10/14/24 18:14 [No Known Allergies*] Assessment & Plan Assessment & Plan (1) Mood disorder: Status: Acute Code(s): F39 - Unspecified mood [affective] disorder (2) Autism spectrum disorder: Status: Acute Code(s): F84.0 - Autistic disorder (3) Dementia: Status: Acute Code(s): F03.90 - Unspecified dementia, unspecified severity, without behavioral disturbance, psychotic disturbance, mood disturbance, and anxiety Plan Humza was admitted for safety and stabilization. His presentation is very similar to his last admission psychiatrically about a year ago and that is why his caregivers wanted to get ahead of things before he decompensated further. Current medications were reviewed and maintained. Contacts to be made with his treaters next week. 10/17: Continue current regimen and plans 10/19: Continue current tx plan and regime. 10/21: Memantine 5 mg daily- [facility]CI, memory sx Abilify 2 mg daily-augment to antidepressants currently being used. 10/22 continue current tx plan -pt confused 10/23 Continue trials, regime and plan. 10/24: Continue regime and plan of care. 10/25 Abilify increased up to 5 mg. 10/26 keep on same treatment 10/27/24 continues with many complaints, no clear insight into self- 10/28 continue same treatment 10/29 increase Namenda to 5 mg p.o. b.i.d. and change Depakote to Depakene. Depakote level on 13/02 as per blood work of yesterday 10/30/24 - dc [employer] olanzapine = continue depakene as he did take 5 capsules this am- prn olanzapine given - this afternoon for behaviors on unit- 10/31/24 wrote for liquid depakote option if refuses capsules, also got prn olanzapine for throwing self on floor 11/01 keep same treatment 11/02 increase Zyprexa to 20 mg p.o. q.h.s. 11/03 keep same treatment. 11/04 discontinue Depakote and start Trileptal 300 mg p.o. b.i.d.. Her healthcare proxy will bring a copy of that we are going to invoke it 11/06 increase olanzapine to 20mg po qhs and 10mg po daily. 11/07 continue tx. 12/04 continue tx. 12/05: no changes 12/06 continue tx. 12/12: continue plan of care 12/13: continue tx 12/19 continue current tx plan 12/25: appearing sedated, more of a falls risk, poorer ability to do ADLs. decrease trileptal dosing from 600 BID to 300 BID for now. 12/26: less sedated than yesterday, continue current mgmt, including 1:1, until attending can see pt in the morning. 12/30: continues less sedated. minimally interactive. continue current mgmt. 12/31: per HCP, not at baseline, over-sedated. begin valium taper. decrease valium 5 TID to 4 TID for now. per HCP and SW, HCP has been affirmed in court. IM back-up orders in place and to be enforced by nursing staff. no aggressive or agitated behaviors. 01/02: Continue current regimen and plans Plan 1. Continue with olanzapine 10 mg p.o. q.a.m. and 20 mg p.o. q.h.s., he refused p.o. he received olanzapine IM. 2. Continue with Valium 5 mg p.o. t.i.d. if he refuses he will get Valium IM. 3. We will encourage compliance. The patient had been noncompliant with sertraline, he remains dysphoric. 4. The patient has a healthcare proxy who was affirmed by court, and they want us to medicate him even if the patient does not want to be compliant. 5. At this moment the patient is slightly over-sedated with EPS but we will keep the same dose of antipsychotics since his violence has improved. 01/03/25 Continue plan of care Reassess treatment plan which includes IM medication patient has been much less aggressive than he has in the past Unclear discharge plan at this point 01/04/2025 Patient taking Valium and olanzapine regularly has IM prescribed if refuses intermittently taking medication for diabetes hypertension 01/05/25 Cont medicationhas been stabilizing try and d/c meds that are not esential simplify regimen 01/06/25 stop namenda monitor sugar / bp encourage med acceptance cont valium olanzapine 01/08/2025 Continue olanzapine Valium metformin try and taper and simplify medication as tolerated discharge planning monitor response to change in medication 01/09/25 Try and simplify med regimen d/c planning 01/11/2025 Patient generally more cooperative not agitated generally monitor blood sugar and blood pressure intermittently refuses some doses of metformin 01/12/25 Pt seen later in day seemed stable flat some balance problems noted lowwer trileptal and primidone ck ortho vs dailypt consult for balance 01/13/2025 Patient improving less reactive has not been aggressive more cooperative with treatment and medication. Discharge planning 01/14: fell this morning, per head/c-spine CT and pelvic XR, no osseus injuries. pt appears as at recent mental status. no complaints or requests other than for wheelchair. pt will have 1:1 for ambulation for now. continue current psychopharm mgmt. 01/15: Continue current management and treatment plan. 01/16: continue current management and treatment plan. 01/17 keep same treatment. 01/18 keep same treatment 01/19 keep same treatment 01/20 keep same treatment 01/21 keep same treatment 01/22: calm, cooperative, flat. no questions or complaints. stable presentation. continue current mgmt. 01/23: no change, continue current mgmt. 01/24: stable. continue current mgmt. reps from [facility] coming to [facility] pt for placement today. 01/25/2025 Patient in behavioral control vital signs stable generally accepting treatment continue discharge planning 01/26/2025 Patient generally cooperative seen in the milieu no aggression suicidality or her problematic behavior. Discharge planning strongly urged transition 01/27/2025 Patient continues to be generally stabilizing not combative agitated or threatening has remained generally calm seems safe for discharge planning much improved over time 01/28/2025 Patient seen psychiatric follow-up patient has significantly improved over the months he is calm cooperative seen watching television somewhat social at times not aggressive or combative 01/29 Continue current regime/plan. Improved. 01/31: stably improved. awaiting placement. continue current mgmt. 02/01: stable. continue current mgmt. awaiting placement. 02/02: no change in presentation or plan. 02/03: stable. continue current mgmt. 02/04/2025 Patient seen psychiatric follow-up no current behavioral difficulties no current ability to place patient in a less restricted setting 02/06: no change in presentation. continue current mgmt. 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 Patient took all medications today; nurse however reports that recently he seemed a little suspicious, on the verge of picking over medications. -vitals WNL -no new labs 02/15/2025 Patient states he is doing okay understands he is waiting for some form of placement. Accepting treatment vital signs unremarkable continue plan of care discharge plan 02/16/2025 No major changes patient has been waiting for placement no less restrictive setting available at this time continues to be cooperative with care no significant behavioral difficulties Reason for continued inpatient stay Substantial Risk for: inability to function and rapid decompensation Time Spent With Patient Time: Total time managing care of this patient today ____ minutes.
--- NOTE | 2025-02-17 22:10 | HO.PSYCHPN ---
Subjective Subjective Date of Service: 02/17/25 Reason For Visit: Anxiety, mood disorder, ASD Subjective Notes: Conditional Voluntary Healthcare Proxy: Yes Interim History: Patient seen in psychiatric follow-up patient sleep okay unremarkable appetite and behavior Medication Compliance: Yes Mental Status Exam Mental Status Exam Patient Appearance: Appropriate Patient Orientation: Person Level of Consciousness: Awake and Appropriate Patient Behavior: Appropriate and Guarded (a little) Mood Description: Constricted ( hanging in there ) Affect Description: Constricted Patient Cognition Impaired: Yes Ability to Follow Directions: Fair Speech Pattern: Clear Hallucinations: None Delusions: Not Present Thought Process: Distracted and Slowed Thinking Thought Content: positive for [place] and positive for Poverty of Content Judgement: Poor Diagnostics Vital Signs (24Hr): Vital Signs - 24 hr 02/17/25 08:00 02/17/25 19:37 Temperature 96.8 F 97.3 F Pulse Rate 73 65 Respiratory Rate 18 16 Blood Pressure 114/64 116/63 Pulse Oximetry 98 95 Oxygen Delivery Method Room Air Room Air BMI result Body Mass Index 26.5 Labs 10/28/24 09:10 02/18/25 12:02 Imaging Radiology Impressions: ITS Impressions Hip X-Ray 01/12/25 13:30 IMPRESSION: No evidence of fracture of the bilateral hips. Electronically signed by: Kaushal Soni MD 01/12/2025 01:54 PM EDT RP Cervical Spine CT 01/14/25 07:59 IMPRESSION: Multilevel cervical spondylosis without acute fracture or trauma-related listhesis. Fleischner guidelines were followed. Electronically signed by: Abe Griffin MD 01/14/2025 09:50 AM EDT RP Head CT 01/14/25 08:30 IMPRESSION: No acute intracranial abnormality. No fracture seen. Electronically signed by: Chidi Rodriguez MD 01/17/2025 01:08 PM EDT RP Hip/Pelvis X-Ray 01/14/25 09:10 IMPRESSION: No acute fracture or dislocation. Electronically signed by: Abe Griffin MD 01/14/2025 10:35 AM EDT RP Medications Medications Current Medications Acetaminophen (Acetaminophen 325 Mg Tablet) 650 mg PO Q6H PRN PRN Reason: pain scale (1-10) Benztropine Mesylate (Benztropine Mesylate 1 Mg Tablet) 1 mg PO BEDTIME PRN PRN Reason: Extrapyramidal Effects Diazepam (Diazepam 10 Mg/2 Ml Cartridge) 5 mg IM TID PRN PRN Reason: PO refusal. HOLD FOR SEDATION Last Admin: 12/21/24 10:22 Dose: 5 mg Diazepam (Diazepam 2 Mg Tablet) 4 mg PO TID DESIRAE Last Admin: 02/17/25 19:38 Dose: 4 mg Empagliflozin (Empagliflozin 10 Mg Tablet) 10 mg PO DAILY DESIRAE Last Admin: 02/17/25 08:09 Dose: 10 mg Lisinopril (Lisinopril 20 Mg Tablet) 20 mg PO DAILY DESIRAE; Protocol Last Admin: 02/17/25 08:09 Dose: 20 mg Magnesium Hydroxide (Milk Of Magnesia 30 Ml Oral.Susp) 30 ml PO DAILY PRN PRN Reason: Constipation Last Admin: 02/04/25 14:59 Dose: 30 ml Metformin HCl (Metformin Hcl Er 500 Mg Tab.Er.24h) 1,000 mg PO DAILY DESIRAE Last Admin: 02/17/25 08:10 Dose: 1,000 mg Mirtazapine (Mirtazapine 30 Mg Tablet) 30 mg PO BEDTIME DESIRAE Last Admin: 02/17/25 19:39 Dose: 30 mg Nicotine Polacrilex (Nicotine Polacrilex 2 Mg Gum) 4 mg BUCCAL Q2H PRN PRN Reason: Nicotine Cravings Olanzapine (Olanzapine 10 Mg Tablet) 20 mg PO BEDTIME DESIRAE Last Admin: 02/17/25 19:39 Dose: 20 mg Olanzapine (Olanzapine 10 Mg Vial) 10 mg IM BID PRN PRN Reason: PO refusal Last Admin: 12/21/24 10:22 Dose: 10 mg Olanzapine (Olanzapine Odt 10 Mg Tab.Rapdis) 10 mg TRANSLINGU BID PRN PRN Reason: agitation Last Admin: 01/14/25 12:16 Dose: 10 mg Oxcarbazepine (Oxcarbazepine 300 Mg Tablet) 300 mg PO BEDTIME DESIRAE Last Admin: 02/17/25 19:39 Dose: 300 mg Primidone (Primidone 50 Mg Tablet) 25 mg PO BID DESIRAE Last Admin: 02/17/25 19:39 Dose: 25 mg Sertraline HCl (Sertraline Hcl 100 Mg Tablet) 100 mg PO BEDTIME DESIRAE Last Admin: 02/17/25 19:39 Dose: 100 mg Trazodone HCl (Trazodone Hcl 50 Mg Tablet) 50 mg PO BEDTIME PRN PRN Reason: Insomnia Allergies Allergies Allergy/AdvReac Type Severity Reaction Status Date / Time No Known Allergies Allergy Verified 10/14/24 18:14 [No Known Allergies*] Assessment & Plan Assessment & Plan (1) Mood disorder: Status: Acute Code(s): F39 - Unspecified mood [affective] disorder (2) Autism spectrum disorder: Status: Acute Code(s): F84.0 - Autistic disorder (3) Dementia: Status: Acute Code(s): F03.90 - Unspecified dementia, unspecified severity, without behavioral disturbance, psychotic disturbance, mood disturbance, and anxiety Plan Humza was admitted for safety and stabilization. His presentation is very similar to his last admission psychiatrically about a year ago and that is why his caregivers wanted to get ahead of things before he decompensated further. Current medications were reviewed and maintained. Contacts to be made with his treaters next week. 10/17: Continue current regimen and plans 10/19: Continue current tx plan and regime. 10/21: Memantine 5 mg daily- MCI, memory sx Abilify 2 mg daily-augment to antidepressants currently being used. 10/22 continue current tx plan -pt confused 10/23 Continue trials, regime and plan. 10/24: Continue regime and plan of care. 10/25 Abilify increased up to 5 mg. 10/26 keep on same treatment 10/27/24 continues with many complaints, no clear insight into self- 10/28 continue same treatment 10/29 increase Namenda to 5 mg p.o. b.i.d. and change Depakote to Depakene. Depakote level on 13/02 as per blood work of yesterday 10/30/24 - dc abilify inc olanzapine = continue depakene as he did take 5 capsules this am- prn olanzapine given - this afternoon for behaviors on unit- 10/31/24 wrote for liquid depakote option if refuses capsules, also got prn olanzapine for throwing self on floor 11/01 keep same treatment 11/02 increase Zyprexa to 20 mg p.o. q.h.s. 11/03 keep same treatment. 11/04 discontinue Depakote and start Trileptal 300 mg p.o. b.i.d.. Her healthcare proxy will bring a copy of that we are going to invoke it 11/06 increase olanzapine to 20mg po qhs and 10mg po daily. 11/07 continue tx. 12/04 continue tx. 12/05: no changes 12/06 continue tx. 12/12: continue plan of care 12/13: continue tx 12/19 continue current tx plan 12/25: appearing sedated, more of a falls risk, poorer ability to do ADLs. decrease trileptal dosing from 600 BID to 300 BID for now. 12/26: less sedated than yesterday, continue current mgmt, including 1:1, until attending can see pt in the morning. 12/30: continues less sedated. minimally interactive. continue current mgmt. 12/31: per HCP, not at baseline, over-sedated. begin valium taper. decrease valium 5 TID to 4 TID for now. per HCP and SW, HCP has been affirmed in court. IM back-up orders in place and to be enforced by nursing staff. no aggressive or agitated behaviors. 01/02: Continue current regimen and plans Plan 1. Continue with olanzapine 10 mg p.o. q.a.m. and 20 mg p.o. q.h.s., he refused p.o. he received olanzapine IM. 2. Continue with Valium 5 mg p.o. t.i.d. if he refuses he will get Valium IM. 3. We will encourage compliance. The patient had been noncompliant with sertraline, he remains dysphoric. 4. The patient has a healthcare proxy who was affirmed by court, and they want us to medicate him even if the patient does not want to be compliant. 5. At this moment the patient is slightly over-sedated with EPS but we will keep the same dose of antipsychotics since his violence has improved. 01/03/25 Continue plan of care Reassess treatment plan which includes IM medication patient has been much less aggressive than he has in the past Unclear discharge plan at this point 01/04/2025 Patient taking Valium and olanzapine regularly has IM prescribed if refuses intermittently taking medication for diabetes hypertension 01/05/25 Cont medicationhas been stabilizing try and d/c meds that are not esential simplify regimen 01/06/25 stop namenda monitor sugar / bp encourage med acceptance cont valium olanzapine 01/08/2025 Continue olanzapine Valium metformin try and taper and simplify medication as tolerated discharge planning monitor response to change in medication 01/09/25 Try and simplify med regimen d/c planning 01/11/2025 Patient generally more cooperative not agitated generally monitor blood sugar and blood pressure intermittently refuses some doses of metformin 01/12/25 Pt seen later in day seemed stable flat some balance problems noted lowwer trileptal and primidone ck ortho vs dailypt consult for balance 01/13/2025 Patient improving less reactive has not been aggressive more cooperative with treatment and medication. Discharge planning 01/14: fell this morning, per head/c-spine CT and pelvic XR, no osseus injuries. pt appears as at recent mental status. no complaints or requests other than for wheelchair. pt will have 1:1 for ambulation for now. continue current psychopharm mgmt. 01/15: Continue current management and treatment plan. 01/16: continue current management and treatment plan. 01/17 keep same treatment. 01/18 keep same treatment 01/19 keep same treatment 01/20 keep same treatment 01/21 keep same treatment 01/22: calm, cooperative, flat. no questions or complaints. stable presentation. continue current mgmt. 01/23: no change, continue current mgmt. 01/24: stable. continue current mgmt. reps from [facility] coming to [facility] pt for placement today. 01/25/2025 Patient in behavioral control vital signs stable generally accepting treatment continue discharge planning 01/26/2025 Patient generally cooperative seen in the milieu no aggression suicidality or her problematic behavior. Discharge planning strongly urged transition 01/27/2025 Patient continues to be generally stabilizing not combative agitated or threatening has remained generally calm seems safe for discharge planning much improved over time 01/28/2025 Patient seen psychiatric follow-up patient has significantly improved over the months he is calm cooperative seen watching television somewhat social at times not aggressive or combative 01/29 Continue current regime/plan. Improved. 01/31: stably improved. awaiting placement. continue current mgmt. 02/01: stable. continue current mgmt. awaiting placement. 02/02: no change in presentation or plan. 02/03: stable. continue current mgmt. 02/04/2025 Patient seen psychiatric follow-up no current behavioral difficulties no current ability to place patient in a less restricted setting 02/06: no change in presentation. continue current mgmt. 02/07/25 cont d/c planning pt has been tentatively accepted no less restrictive setting currently available 02/08/2025 Continue discharge planning patient tentatively accepted no funding source available at this time no less restrictive setting available 02/14 Patient tells business writer he is hanging in there he says it can be hard sometimes to do so but it is overall going okay. Patient took all medications today; nurse however reports that recently he seemed a little suspicious, on the verge of picking over medications. -vitals WNL -no new labs 02/15/2025 Patient states he is doing okay understands he is waiting for some form of placement. Accepting treatment vital signs unremarkable continue plan of care discharge plan 02/16/2025 No major changes patient has been waiting for placement no less restrictive setting available at this time continues to be cooperative with care no significant behavioral difficulties 02/17/2025 Continue plan of care discharge planning no noted bizarre aggressive behavior Informed Consent: does not understand Reason for continued inpatient stay Substantial Risk for: inability to function and rapid decompensation Time Spent With Patient Time: Total time managing care of this patient today ____ minutes.
[2025-02-18 07:55] VITALS: BP 117/84; PULSE 73; RESP 18; TEMP 36.3; O2SAT 98
[2025-02-18] MEDS: Primidone 50 MG TABLET 25 MG PO ×2 (08:34→20:09)
[2025-02-18] MEDS: diazePAM 2 MG TABLET 4 MG PO ×3 (08:34→20:09)
[2025-02-18] MEDS: metFORMIN HCl ER 500 MG TAB.ER.24H 1000 MG PO (08:34)
[2025-02-18] MEDS: lisinopriL 20 MG TABLET PO (08:35)
[2025-02-18] MEDS: Empagliflozin 10 MG TABLET PO (08:35)
[2025-02-18 12:24] LABS: Creatinine Clr Calc Pharmacy 66.8; Estimated Glomerular Filt Rate > 60
[2025-02-18 20:00] VITALS: BP 98/60; PULSE 72; RESP 16; TEMP 36.6; O2SAT 98
[2025-02-18] MEDS: Sertraline HCL 100 MG TABLET PO (20:08)
[2025-02-18] MEDS: Mirtazapine 30 MG TABLET PO (20:08)
[2025-02-18] MEDS: OLANZapine 10 MG TABLET 20 MG PO (20:08)
[2025-02-18] MEDS: OXcarbazepine 300 MG TABLET PO (20:09)
--- NOTE | 2025-02-18 21:37 | HO.PSYCHPN ---
Subjective Subjective Date of Service: 02/18/25 Reason For Visit: Anxiety, mood disorder, ASD Subjective Notes: Conditional Voluntary Interim History: Patient seen psychiatric follow-up case reviewed in treatment planning chart reviewed patient seen. No major changes noted patient's medical and psychiatric condition unchanged. Seen in [facility] Mental Status Exam Mental Status Exam Patient Appearance: Appropriate Patient Orientation: Person and Situation Level of Consciousness: Awake and Appropriate Patient Behavior: Guarded and Passive Mood Description: Withdrawn Affect Description: Constricted Patient Cognition Impaired: Yes Ability to Follow Directions: Good Speech Pattern: Clear Hallucinations: None Delusions: Not Present Thought Process: Distracted and Slowed Thinking Thought Content: positive for [place] and positive for Poverty of Content Judgement: Poor Diagnostics Vital Signs (24Hr): Vital Signs - 24 hr 02/18/25 07:55 Temperature 97.3 F Pulse Rate 73 Respiratory Rate 18 Blood Pressure 117/84 Pulse Oximetry 98 Oxygen Delivery Method Room Air BMI result Body Mass Index 26.5 Labs 10/28/24 09:10 02/18/25 12:02 Labs: Laboratory Results - last 48 hr 02/18/25 12:02 Creatinine 1.08 Estim Creat Clear Calc 66.8 Estimated GFR > 60 Imaging Radiology Impressions: ITS Impressions Hip X-Ray 01/12/25 13:30 IMPRESSION: No evidence of fracture of the bilateral hips. Electronically signed by: Kaushal Soni MD 01/12/2025 01:54 PM EDT RP Cervical Spine CT 01/14/25 07:59 IMPRESSION: Multilevel cervical spondylosis without acute fracture or trauma-related listhesis. Fleischner guidelines were followed. Electronically signed by: Abe Griffin MD 01/14/2025 09:50 AM EDT RP Head CT 01/14/25 08:30 IMPRESSION: No acute intracranial abnormality. No fracture seen. Electronically signed by: Chidi Rodriguez MD 01/17/2025 01:08 PM EDT RP Hip/Pelvis X-Ray 01/14/25 09:10 IMPRESSION: No acute fracture or dislocation. Electronically signed by: Abe Griffin MD 01/14/2025 10:35 AM EDT RP Medications Medications Current Medications Acetaminophen (Acetaminophen 325 Mg Tablet) 650 mg PO Q6H PRN PRN Reason: pain scale (1-10) Benztropine Mesylate (Benztropine Mesylate 1 Mg Tablet) 1 mg PO BEDTIME PRN PRN Reason: Extrapyramidal Effects Diazepam (Diazepam 10 Mg/2 Ml Cartridge) 5 mg IM TID PRN PRN Reason: PO refusal. HOLD FOR SEDATION Last Admin: 12/21/24 10:22 Dose: 5 mg Diazepam (Diazepam 2 Mg Tablet) 4 mg PO TID DESIRAE Last Admin: 02/18/25 20:09 Dose: 4 mg Empagliflozin (Empagliflozin 10 Mg Tablet) 10 mg PO DAILY DESIRAE Last Admin: 02/18/25 08:35 Dose: 10 mg Lisinopril (Lisinopril 20 Mg Tablet) 20 mg PO DAILY DESIRAE; Protocol Last Admin: 02/18/25 08:35 Dose: 20 mg Magnesium Hydroxide (Milk Of Magnesia 30 Ml Oral.Susp) 30 ml PO DAILY PRN PRN Reason: Constipation Last Admin: 02/04/25 14:59 Dose: 30 ml Metformin HCl (Metformin Hcl Er 500 Mg Tab.Er.24h) 1,000 mg PO DAILY DESIRAE Last Admin: 02/18/25 08:34 Dose: 1,000 mg Mirtazapine (Mirtazapine 30 Mg Tablet) 30 mg PO BEDTIME DESIRAE Last Admin: 02/18/25 20:08 Dose: 30 mg Nicotine Polacrilex (Nicotine Polacrilex 2 Mg Gum) 4 mg BUCCAL Q2H PRN PRN Reason: Nicotine Cravings Olanzapine (Olanzapine 10 Mg Tablet) 20 mg PO BEDTIME DESIRAE Last Admin: 02/18/25 20:08 Dose: 20 mg Olanzapine (Olanzapine 10 Mg Vial) 10 mg IM BID PRN PRN Reason: PO refusal Last Admin: 12/21/24 10:22 Dose: 10 mg Olanzapine (Olanzapine Odt 10 Mg Tab.Rapdis) 10 mg TRANSLINGU BID PRN PRN Reason: agitation Last Admin: 01/14/25 12:16 Dose: 10 mg Oxcarbazepine (Oxcarbazepine 300 Mg Tablet) 300 mg PO BEDTIME DESIRAE Last Admin: 02/18/25 20:09 Dose: 300 mg Primidone (Primidone 50 Mg Tablet) 25 mg PO BID DESIRAE Last Admin: 02/18/25 20:09 Dose: 25 mg Sertraline HCl (Sertraline Hcl 100 Mg Tablet) 100 mg PO BEDTIME DESIRAE Last Admin: 02/18/25 20:08 Dose: 100 mg Trazodone HCl (Trazodone Hcl 50 Mg Tablet) 50 mg PO BEDTIME PRN PRN Reason: Insomnia Allergies Allergies Allergy/AdvReac Type Severity Reaction Status Date / Time No Known Allergies Allergy Verified 10/14/24 18:14 [No Known Allergies*] Assessment & Plan Assessment & Plan (1) Mood disorder: Status: Acute Code(s): F39 - Unspecified mood [affective] disorder (2) Autism spectrum disorder: Status: Acute Code(s): F84.0 - Autistic disorder (3) Dementia: Status: Acute Code(s): F03.90 - Unspecified dementia, unspecified severity, without behavioral disturbance, psychotic disturbance, mood disturbance, and anxiety Plan Humza was admitted for safety and stabilization. His presentation is very similar to his last admission psychiatrically about a year ago and that is why his caregivers wanted to get ahead of things before he decompensated further. Current medications were reviewed and maintained. Contacts to be made with his treaters next week. 10/17: Continue current regimen and plans 10/19: Continue current tx plan and regime. 10/21: Memantine 5 mg daily- MCI, memory sx Abilify 2 mg daily-augment to antidepressants currently being used. 10/22 continue current tx plan -pt confused 10/23 Continue trials, regime and plan. 10/24: Continue regime and plan of care. 10/25 Abilify increased up to 5 mg. 10/26 keep on same treatment 10/27/24 continues with many complaints, no clear insight into self- 10/28 continue same treatment 10/29 increase Namenda to 5 mg p.o. b.i.d. and change Depakote to Depakene. Depakote level on 13/02 as per blood work of yesterday 10/30/24 - ms abilify inc olanzapine = continue depakene as he did take 5 capsules this am- prn olanzapine given - this afternoon for behaviors on unit- 10/31/24 wrote for liquid depakote option if refuses capsules, also got prn olanzapine for throwing self on floor 11/01 keep same treatment 11/02 increase Zyprexa to 20 mg p.o. q.h.s. 11/03 keep same treatment. 11/04 discontinue Depakote and start Trileptal 300 mg p.o. b.i.d.. Her healthcare proxy will bring a copy of that we are going to invoke it 11/06 increase olanzapine to 20mg po qhs and 10mg po daily. 11/07 continue tx. 12/04 continue tx. 12/05: no changes 12/06 continue tx. 12/12: continue plan of care 12/13: continue tx 12/19 continue current tx plan 12/25: appearing sedated, more of a falls risk, poorer ability to do ADLs. decrease trileptal dosing from 600 BID to 300 BID for now. 12/26: less sedated than yesterday, continue current mgmt, including 1:1, until attending can see pt in the morning. 12/30: continues less sedated. minimally interactive. continue current mgmt. 12/31: per HCP, not at baseline, over-sedated. begin valium taper. decrease valium 5 TID to 4 TID for now. per HCP and SW, HCP has been affirmed in court. IM back-up orders in place and to be enforced by nursing staff. no aggressive or agitated behaviors. 01/02: Continue current regimen and plans Plan 1. Continue with olanzapine 10 mg p.o. q.a.m. and 20 mg p.o. q.h.s., he refused p.o. he received olanzapine IM. 2. Continue with Valium 5 mg p.o. t.i.d. if he refuses he will get Valium IM. 3. We will encourage compliance. The patient had been noncompliant with sertraline, he remains dysphoric. 4. The patient has a healthcare proxy who was affirmed by court, and they want us to medicate him even if the patient does not want to be compliant. 5. At this moment the patient is slightly over-sedated with EPS but we will keep the same dose of antipsychotics since his violence has improved. 01/03/25 Continue plan of care Reassess treatment plan which includes IM medication patient has been much less aggressive than he has in the past Unclear discharge plan at this point 01/04/2025 Patient taking Valium and olanzapine regularly has IM prescribed if refuses intermittently taking medication for diabetes hypertension 01/05/25 Cont medicationhas been stabilizing try and d/c meds that are not esential simplify regimen 01/06/25 stop namenda monitor sugar / bp encourage med acceptance cont valium olanzapine 01/08/2025 Continue olanzapine Valium metformin try and taper and simplify medication as tolerated discharge planning monitor response to change in medication 01/09/25 Try and simplify med regimen d/c planning 01/11/2025 Patient generally more cooperative not agitated generally monitor blood sugar and blood pressure intermittently refuses some doses of metformin 01/12/25 Pt seen later in day seemed stable flat some balance problems noted lowwer trileptal and primidone ck ortho vs dailypt consult for balance 01/13/2025 Patient improving less reactive has not been aggressive more cooperative with treatment and medication. Discharge planning 01/14: fell this morning, per head/c-spine CT and pelvic XR, no osseus injuries. pt appears as at recent mental status. no complaints or requests other than for wheelchair. pt will have 1:1 for ambulation for now. continue current psychopharm mgmt. 01/15: Continue current management and treatment plan. 01/16: continue current management and treatment plan. 01/17 keep same treatment. 01/18 keep same treatment 01/19 keep same treatment 01/20 keep same treatment 01/21 keep same treatment 01/22: calm, cooperative, flat. no questions or complaints. stable presentation. continue current mgmt. 01/23: no change, continue current mgmt. 01/24: stable. continue current mgmt. reps from [facility] coming to [facility] pt for placement today. 01/25/2025 Patient in behavioral control vital signs stable generally accepting treatment continue discharge planning 01/26/2025 Patient generally cooperative seen in the milieu no aggression suicidality or her problematic behavior. Discharge planning strongly urged transition 01/27/2025 Patient continues to be generally stabilizing not combative agitated or threatening has remained generally calm seems safe for discharge planning much improved over time 01/28/2025 Patient seen psychiatric follow-up patient has significantly improved over the months he is calm cooperative seen watching television somewhat social at times not aggressive or combative 01/29 Continue current regime/plan. Improved. 01/31: stably improved. awaiting placement. continue current mgmt. 02/01: stable. continue current mgmt. awaiting placement. 02/02: no change in presentation or plan. 02/03: stable. continue current mgmt. 02/04/2025 Patient seen psychiatric follow-up no current behavioral difficulties no current ability to place patient in a less restricted setting 02/06: no change in presentation. continue current mgmt. 02/07/25 cont d/c planning pt has been tentatively accepted no less restrictive setting currently available 02/08/2025 Continue discharge planning patient tentatively accepted no funding source available at this time no less restrictive setting available 02/14 Patient tells check writer he is hanging in there he says it can be hard sometimes to do so but it is overall going okay. Patient took all medications today; nurse however reports that recently he seemed a little suspicious, on the verge of picking over medications. -vitals WNL -no new labs 02/15/2025 Patient states he is doing okay understands he is waiting for some form of placement. Accepting treatment vital signs unremarkable continue plan of care discharge plan 02/16/2025 No major changes patient has been waiting for placement no less restrictive setting available at this time continues to be cooperative with care no significant behavioral difficulties 02/18/2025 Vital signs stable no need to change current regimen continue discharge planning. No less restrictive setting presently available for discharge Reason for continued inpatient stay Substantial Risk for: inability to function and rapid decompensation Time Spent With Patient Time: Total time managing care of this patient today ____ minutes.
[2025-02-19 09:46] VITALS: BP 106/67; PULSE 80; RESP 20; TEMP 36.4; O2SAT 100
[2025-02-19] MEDS: diazePAM 2 MG TABLET 4 MG PO ×3 (09:54→20:13)
[2025-02-19] MEDS: Primidone 50 MG TABLET 25 MG PO ×2 (09:54→20:12)
[2025-02-19] MEDS: metFORMIN HCl ER 500 MG TAB.ER.24H 1000 MG PO (09:55)
[2025-02-19] MEDS: Empagliflozin 10 MG TABLET PO (09:56)
[2025-02-19] MEDS: lisinopriL 20 MG TABLET PO (09:56)
[2025-02-19 20:00] VITALS: BP 129/76; PULSE 65; RESP 16; TEMP 36.6; O2SAT 98
[2025-02-19] MEDS: OLANZapine 10 MG TABLET 20 MG PO (20:13)
[2025-02-19] MEDS: Mirtazapine 30 MG TABLET PO (20:13)
[2025-02-19] MEDS: Sertraline HCL 100 MG TABLET PO (20:13)
[2025-02-19] MEDS: OXcarbazepine 300 MG TABLET PO (20:13)
[2025-02-20 08:00] VITALS: BP 110/66; PULSE 78; RESP 18; TEMP 36.4; O2SAT 96
[2025-02-20] MEDS: diazePAM 2 MG TABLET 4 MG PO ×3 (08:34→19:53)
[2025-02-20] MEDS: Primidone 50 MG TABLET 25 MG PO ×2 (08:35→19:54)
[2025-02-20] MEDS: metFORMIN HCl ER 500 MG TAB.ER.24H 1000 MG PO (08:35)
[2025-02-20] MEDS: Empagliflozin 10 MG TABLET PO (08:35)
[2025-02-20] MEDS: lisinopriL 20 MG TABLET PO (08:35)
--- NOTE | 2025-02-20 17:49 | P.PNPSI_ITS ---
Subjective Subjective Date of Service: 02/19/25 Reason For Visit: Anxiety, mood disorder, ASD Interim History: Late entry note for patient seen on 02/19; discussed with team Patient lying in bed . Says he is okay on approach and denies any complaints or requests. Staff reports patient at baseline Mental Status Exam Mental Status Exam Patient Appearance: Appropriate Patient Orientation: Person and Situation Level of Consciousness: Awake and Appropriate Patient Behavior: Guarded and Passive Mood Description: Withdrawn ( ok ) Affect Description: Withdrawn Patient Cognition Impaired: Yes Ability to Follow Directions: Fair Speech Pattern: Clear Hallucinations: None Delusions: Not Present Thought Process: Distracted and Slowed Thinking Thought Content: positive for [place] and positive for Poverty of Content Judgement: Poor Diagnostics Vital Signs (24Hr): Vital Signs - 24 hr 02/19/25 20:00 02/20/25 08:00 Temperature 97.8 F 97.6 F Pulse Rate 65 78 Respiratory Rate 16 18 Blood Pressure 129/76 110/66 Pulse Oximetry 98 96 Oxygen Delivery Method Room Air Room Air BMI result Body Mass Index 26.5 Labs 10/28/24 09:10 02/18/25 12:02 Imaging Radiology Impressions: ITS Impressions Hip X-Ray 01/12/25 13:30 IMPRESSION: No evidence of fracture of the bilateral hips. Electronically signed by: Kaushal Soni MD 01/12/2025 01:54 PM EDT RP Cervical Spine CT 01/14/25 07:59 IMPRESSION: Multilevel cervical spondylosis without acute fracture or trauma-related listhesis. Fleischner guidelines were followed. Electronically signed by: Abe Griffin MD 01/14/2025 09:50 AM EDT RP Head CT 01/14/25 08:30 IMPRESSION: No acute intracranial abnormality. No fracture seen. Electronically signed by: Chidi Rodriguez MD 01/17/2025 01:08 PM EDT RP Hip/Pelvis X-Ray 01/14/25 09:10 IMPRESSION: No acute fracture or dislocation. Electronically signed by: Abe Griffin MD 01/14/2025 10:35 AM EDT RP Medications Medications Current Medications Acetaminophen (Acetaminophen 325 Mg Tablet) 650 mg PO Q6H PRN PRN Reason: pain scale (1-10) Benztropine Mesylate (Benztropine Mesylate 1 Mg Tablet) 1 mg PO BEDTIME PRN PRN Reason: Extrapyramidal Effects Diazepam (Diazepam 10 Mg/2 Ml Cartridge) 5 mg IM TID PRN PRN Reason: PO refusal. HOLD FOR SEDATION Last Admin: 12/21/24 10:22 Dose: 5 mg Diazepam (Diazepam 2 Mg Tablet) 4 mg PO TID DESIRAE Last Admin: 02/20/25 14:07 Dose: 4 mg Empagliflozin (Empagliflozin 10 Mg Tablet) 10 mg PO DAILY DESIRAE Last Admin: 02/20/25 08:35 Dose: 10 mg Lisinopril (Lisinopril 20 Mg Tablet) 20 mg PO DAILY DESIRAE; Protocol Last Admin: 02/20/25 08:35 Dose: 20 mg Magnesium Hydroxide (Milk Of Magnesia 30 Ml Oral.Susp) 30 ml PO DAILY PRN PRN Reason: Constipation Last Admin: 02/04/25 14:59 Dose: 30 ml Metformin HCl (Metformin Hcl Er 500 Mg Tab.Er.24h) 1,000 mg PO DAILY DESIRAE Last Admin: 02/20/25 08:35 Dose: 1,000 mg Mirtazapine (Mirtazapine 30 Mg Tablet) 30 mg PO BEDTIME DESIRAE Last Admin: 02/19/25 20:13 Dose: 30 mg Nicotine Polacrilex (Nicotine Polacrilex 2 Mg Gum) 4 mg BUCCAL Q2H PRN PRN Reason: Nicotine Cravings Olanzapine (Olanzapine 10 Mg Tablet) 20 mg PO BEDTIME DESIRAE Last Admin: 02/19/25 20:13 Dose: 20 mg Olanzapine (Olanzapine 10 Mg Vial) 10 mg IM BID PRN PRN Reason: PO refusal Last Admin: 12/21/24 10:22 Dose: 10 mg Olanzapine (Olanzapine Odt 10 Mg Tab.Rapdis) 10 mg TRANSLINGU BID PRN PRN Reason: agitation Last Admin: 01/14/25 12:16 Dose: 10 mg Oxcarbazepine (Oxcarbazepine 300 Mg Tablet) 300 mg PO BEDTIME DESIRAE Last Admin: 02/19/25 20:13 Dose: 300 mg Primidone (Primidone 50 Mg Tablet) 25 mg PO BID DESIRAE Last Admin: 02/20/25 08:35 Dose: 25 mg Sertraline HCl (Sertraline Hcl 100 Mg Tablet) 100 mg PO BEDTIME DESIRAE Last Admin: 02/19/25 20:13 Dose: 100 mg Trazodone HCl (Trazodone Hcl 50 Mg Tablet) 50 mg PO BEDTIME PRN PRN Reason: Insomnia Allergies Allergies Allergy/AdvReac Type Severity Reaction Status Date / Time No Known Allergies Allergy Verified 10/14/24 18:14 [No Known Allergies*] Assessment & Plan Assessment & Plan (1) Mood disorder: Status: Acute Code(s): F39 - Unspecified mood [affective] disorder (2) Autism spectrum disorder: Status: Acute Code(s): F84.0 - Autistic disorder (3) Dementia: Status: Acute Code(s): F03.90 - Unspecified dementia, unspecified severity, without behavioral disturbance, psychotic disturbance, mood disturbance, and anxiety Plan Humza was admitted for safety and stabilization. His presentation is very similar to his last admission psychiatrically about a year ago and that is why his caregivers wanted to get ahead of things before he decompensated further. Current medications were reviewed and maintained. Contacts to be made with his treaters next week. 10/17: Continue current regimen and plans 10/19: Continue current tx plan and regime. 10/21: Memantine 5 mg daily- MCI, memory sx Abilify 2 mg daily-augment to antidepressants currently being used. 10/22 continue current tx plan -pt confused 10/23 Continue trials, regime and plan. 10/24: Continue regime and plan of care. 10/25 Abilify increased up to 5 mg. 10/26 keep on same treatment 10/27/24 continues with many complaints, no clear insight into self- 10/28 continue same treatment 10/29 increase Namenda to 5 mg p.o. b.i.d. and change Depakote to Depakene. Depakote level on 13/02 as per blood work of yesterday 10/30/24 - wa [employer] olanzapine = continue depakene as he did take 5 capsules this am- prn olanzapine given - this afternoon for behaviors on unit- 10/31/24 wrote for liquid depakote option if refuses capsules, also got prn olanzapine for throwing self on floor 11/01 keep same treatment 11/02 increase Zyprexa to 20 mg p.o. q.h.s. 11/03 keep same treatment. 11/04 discontinue Depakote and start Trileptal 300 mg p.o. b.i.d.. Her healthcare proxy will bring a copy of that we are going to invoke it 11/06 increase olanzapine to 20mg po qhs and 10mg po daily. 11/07 continue tx. 12/04 continue tx. 12/05: no changes 12/06 continue tx. 12/12: continue plan of care 12/13: continue tx 12/19 continue current tx plan 12/25: appearing sedated, more of a falls risk, poorer ability to do ADLs. decrease trileptal dosing from 600 BID to 300 BID for now. 12/26: less sedated than yesterday, continue current mgmt, including 1:1, until attending can see pt in the morning. 12/30: continues less sedated. minimally interactive. continue current mgmt. 12/31: per HCP, not at baseline, over-sedated. begin valium taper. decrease valium 5 TID to 4 TID for now. per HCP and SW, HCP has been affirmed in court. IM back-up orders in place and to be enforced by nursing staff. no aggressive or agitated behaviors. 01/02: Continue current regimen and plans Plan 1. Continue with olanzapine 10 mg p.o. q.a.m. and 20 mg p.o. q.h.s., he refused p.o. he received olanzapine IM. 2. Continue with Valium 5 mg p.o. t.i.d. if he refuses he will get Valium IM. 3. We will encourage compliance. The patient had been noncompliant with sertraline, he remains dysphoric. 4. The patient has a healthcare proxy who was affirmed by court, and they want us to medicate him even if the patient does not want to be compliant. 5. At this moment the patient is slightly over-sedated with EPS but we will keep the same dose of antipsychotics since his violence has improved. 01/03/25 Continue plan of care Reassess treatment plan which includes IM medication patient has been much less aggressive than he has in the past Unclear discharge plan at this point 01/04/2025 Patient taking Valium and olanzapine regularly has IM prescribed if refuses intermittently taking medication for diabetes hypertension 01/05/25 Cont medicationhas been stabilizing try and d/c meds that are not esential simplify regimen 01/06/25 stop namenda monitor sugar / bp encourage med acceptance cont valium olanzapine 01/08/2025 Continue olanzapine Valium metformin try and taper and simplify medication as tolerated discharge planning monitor response to change in medication 01/09/25 Try and simplify med regimen d/c planning 01/11/2025 Patient generally more cooperative not agitated generally monitor blood sugar and blood pressure intermittently refuses some doses of metformin 01/12/25 Pt seen later in day seemed stable flat some balance problems noted lowwer trileptal and primidone ck ortho vs dailypt consult for balance 01/13/2025 Patient improving less reactive has not been aggressive more cooperative with treatment and medication. Discharge planning 01/14: fell this morning, per head/c-spine CT and pelvic XR, no osseus injuries. pt appears as at recent mental status. no complaints or requests other than for wheelchair. pt will have 1:1 for ambulation for now. continue current psychopharm mgmt. 01/15: Continue current management and treatment plan. 01/16: continue current management and treatment plan. 01/17 keep same treatment. 01/18 keep same treatment 01/19 keep same treatment 01/20 keep same treatment 01/21 keep same treatment 01/22: calm, cooperative, flat. no questions or complaints. stable presentation. continue current mgmt. 01/23: no change, continue current mgmt. 01/24: stable. continue current mgmt. reps from [facility] coming to [facility] pt for placement today. 01/25/2025 Patient in behavioral control vital signs stable generally accepting treatment continue discharge planning 01/26/2025 Patient generally cooperative seen in the milieu no aggression suicidality or her problematic behavior. Discharge planning strongly urged transition 01/27/2025 Patient continues to be generally stabilizing not combative agitated or threatening has remained generally calm seems safe for discharge planning much improved over time 01/28/2025 Patient seen psychiatric follow-up patient has significantly improved over the months he is calm cooperative seen watching television somewhat social at times not aggressive or combative 01/29 Continue current regime/plan. Improved. 01/31: stably improved. awaiting placement. continue current mgmt. 02/01: stable. continue current mgmt. awaiting placement. 02/02: no change in presentation or plan. 02/03: stable. continue current mgmt. 02/04/2025 Patient seen psychiatric follow-up no current behavioral difficulties no current ability to place patient in a less restricted setting 02/06: no change in presentation. continue current mgmt. 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 Patient took all medications today; nurse however reports that recently he seemed a little suspicious, on the verge of picking over medications. -vitals WNL -no new labs 02/15/2025 Patient states he is doing okay understands he is waiting for some form of placement. Accepting treatment vital signs unremarkable continue plan of care discharge plan 02/16/2025 No major changes patient has been waiting for placement no less restrictive setting available at this time continues to be cooperative with care no significant behavioral difficulties 02/18/2025 Vital signs stable no need to change current regimen continue discharge planning. No less restrictive setting presently available for discharge 02/19 continue treatment plan Patient educated on: diagnosis Informed Consent: further education needed Reason for continued inpatient stay Substantial Risk for: inability to function Time Spent With Patient Time: Total time managing care of this patient today ____ minutes.
[2025-02-20 19:51] VITALS: BP 103/57; PULSE 69; RESP 18; TEMP 36.3; O2SAT 99
[2025-02-20] MEDS: OXcarbazepine 300 MG TABLET PO (19:53)
[2025-02-20] MEDS: Mirtazapine 30 MG TABLET PO (19:53)
[2025-02-20] MEDS: OLANZapine 10 MG TABLET 20 MG PO (19:53)
[2025-02-20] MEDS: Sertraline HCL 100 MG TABLET PO (19:54)
[2025-02-21 08:00] VITALS: BP 114/72; PULSE 80; RESP 18; TEMP 36.2; O2SAT 100
[2025-02-21] MEDS: diazePAM 2 MG TABLET 4 MG PO ×3 (08:27→20:16)
[2025-02-21] MEDS: metFORMIN HCl ER 500 MG TAB.ER.24H 1000 MG PO (08:27)
[2025-02-21] MEDS: Empagliflozin 10 MG TABLET PO (08:27)
[2025-02-21] MEDS: lisinopriL 20 MG TABLET PO (08:27)
[2025-02-21] MEDS: Primidone 50 MG TABLET 25 MG PO ×2 (08:28→20:16)
[2025-02-21 20:00] VITALS: BP 104/65; PULSE 66; RESP 18; TEMP 36.3; O2SAT 99
[2025-02-21] MEDS: OLANZapine 10 MG TABLET 20 MG PO (20:16)
[2025-02-21] MEDS: Sertraline HCL 100 MG TABLET PO (20:16)
[2025-02-21] MEDS: Mirtazapine 30 MG TABLET PO (20:16)
[2025-02-21] MEDS: OXcarbazepine 300 MG TABLET PO (20:16)
[2025-02-22 08:00] VITALS: BP 112/64; PULSE 71; RESP 18; TEMP 2.6; TEMP 36.6; O2SAT 100
[2025-02-22] MEDS: metFORMIN HCl ER 500 MG TAB.ER.24H 1000 MG PO (08:37)
[2025-02-22] MEDS: diazePAM 2 MG TABLET 4 MG PO ×3 (08:37→19:39)
[2025-02-22] MEDS: Primidone 50 MG TABLET 25 MG PO ×2 (08:38→19:40)
[2025-02-22] MEDS: Empagliflozin 10 MG TABLET PO (08:38)
[2025-02-22] MEDS: lisinopriL 20 MG TABLET PO (08:38)
--- NOTE | 2025-02-22 16:48 | P.PNPSI_ITS ---
Subjective Subjective Date of Service: 02/22/25 Reason For Visit: Anxiety, mood disorder, ASD Subjective Notes: Conditional Voluntary Healthcare Proxy: Yes Interim History: Pt slept through the night. He is visible on the unit. No aggression towards self or others. Taking medications as prescribed. Mental Status Exam Mental Status Exam Patient Appearance: Appropriate Patient Orientation: Person and Place Level of Consciousness: Awake and Appropriate Patient Behavior: Guarded and Passive Mood Description: Withdrawn Affect Description: Constricted Patient Cognition Impaired: Yes Ability to Follow Directions: Good Speech Pattern: Clear Hallucinations: None Delusions: Not Present Thought Process: Distracted and Slowed Thinking Thought Content: positive for [place] and positive for Poverty of Content Judgement: Poor Diagnostics Vital Signs (24Hr): Vital Signs - 24 hr 02/21/25 20:00 02/22/25 08:00 Temperature 97.4 F 36.6 F L Pulse Rate 66 71 Respiratory Rate 18 18 Blood Pressure 104/65 112/64 Pulse Oximetry 99 100 Oxygen Delivery Method Room Air Room Air BMI result Body Mass Index 26.5 Labs 10/28/24 09:10 02/18/25 12:02 Imaging Radiology Impressions: ITS Impressions Hip X-Ray 01/12/25 13:30 IMPRESSION: No evidence of fracture of the bilateral hips. Electronically signed by: Kaushal Soni MD 01/12/2025 01:54 PM EDT RP Cervical Spine CT 01/14/25 07:59 IMPRESSION: Multilevel cervical spondylosis without acute fracture or trauma-related listhesis. Fleischner guidelines were followed. Electronically signed by: Abe Griffin MD 01/14/2025 09:50 AM EDT RP Head CT 01/14/25 08:30 IMPRESSION: No acute intracranial abnormality. No fracture seen. Electronically signed by: Chidi Rodriguez MD 01/17/2025 01:08 PM EDT RP Hip/Pelvis X-Ray 01/14/25 09:10 IMPRESSION: No acute fracture or dislocation. Electronically signed by: Abe Griffin MD 01/14/2025 10:35 AM EDT RP Medications Medications Current Medications Acetaminophen (Acetaminophen 325 Mg Tablet) 650 mg PO Q6H PRN PRN Reason: pain scale (1-10) Benztropine Mesylate (Benztropine Mesylate 1 Mg Tablet) 1 mg PO BEDTIME PRN PRN Reason: Extrapyramidal Effects Diazepam (Diazepam 10 Mg/2 Ml Cartridge) 5 mg IM TID PRN PRN Reason: PO refusal. HOLD FOR SEDATION Last Admin: 12/21/24 10:22 Dose: 5 mg Diazepam (Diazepam 2 Mg Tablet) 4 mg PO TID DESIRAE Last Admin: 02/22/25 15:42 Dose: 4 mg Empagliflozin (Empagliflozin 10 Mg Tablet) 10 mg PO DAILY DESIRAE Last Admin: 02/22/25 08:38 Dose: 10 mg Lisinopril (Lisinopril 20 Mg Tablet) 20 mg PO DAILY DESIRAE; Protocol Last Admin: 02/22/25 08:38 Dose: 20 mg Magnesium Hydroxide (Milk Of Magnesia 30 Ml Oral.Susp) 30 ml PO DAILY PRN PRN Reason: Constipation Last Admin: 02/04/25 14:59 Dose: 30 ml Metformin HCl (Metformin Hcl Er 500 Mg Tab.Er.24h) 1,000 mg PO DAILY DESIRAE Last Admin: 02/22/25 08:37 Dose: 1,000 mg Mirtazapine (Mirtazapine 30 Mg Tablet) 30 mg PO BEDTIME DESIRAE Last Admin: 02/21/25 20:16 Dose: 30 mg Nicotine Polacrilex (Nicotine Polacrilex 2 Mg Gum) 4 mg BUCCAL Q2H PRN PRN Reason: Nicotine Cravings Olanzapine (Olanzapine 10 Mg Tablet) 20 mg PO BEDTIME DESIRAE Last Admin: 02/21/25 20:16 Dose: 20 mg Olanzapine (Olanzapine 10 Mg Vial) 10 mg IM BID PRN PRN Reason: PO refusal Last Admin: 12/21/24 10:22 Dose: 10 mg Olanzapine (Olanzapine Odt 10 Mg Tab.Rapdis) 10 mg TRANSLINGU BID PRN PRN Reason: agitation Last Admin: 01/14/25 12:16 Dose: 10 mg Oxcarbazepine (Oxcarbazepine 300 Mg Tablet) 300 mg PO BEDTIME DESIRAE Last Admin: 02/21/25 20:16 Dose: 300 mg Primidone (Primidone 50 Mg Tablet) 25 mg PO BID DESIRAE Last Admin: 02/22/25 08:38 Dose: 25 mg Sertraline HCl (Sertraline Hcl 100 Mg Tablet) 100 mg PO BEDTIME DESIRAE Last Admin: 02/21/25 20:16 Dose: 100 mg Trazodone HCl (Trazodone Hcl 50 Mg Tablet) 50 mg PO BEDTIME PRN PRN Reason: Insomnia Allergies Allergies Allergy/AdvReac Type Severity Reaction Status Date / Time No Known Allergies Allergy Verified 10/14/24 18:14 [No Known Allergies*] Assessment & Plan Assessment & Plan (1) Mood disorder: Status: Acute Code(s): F39 - Unspecified mood [affective] disorder (2) Autism spectrum disorder: Status: Acute Code(s): F84.0 - Autistic disorder (3) Dementia: Status: Acute Code(s): F03.90 - Unspecified dementia, unspecified severity, without behavioral disturbance, psychotic disturbance, mood disturbance, and anxiety Plan Humza was admitted for safety and stabilization. His presentation is very similar to his last admission psychiatrically about a year ago and that is why his caregivers wanted to get ahead of things before he decompensated further. Current medications were reviewed and maintained. Contacts to be made with his treaters next week. 10/17: Continue current regimen and plans 10/19: Continue current tx plan and regime. 10/21: Memantine 5 mg daily- [facility]CI, memory sx Abilify 2 mg daily-augment to antidepressants currently being used. 10/22 continue current tx plan -pt confused 10/23 Continue trials, regime and plan. 10/24: Continue regime and plan of care. 10/25 Abilify increased up to 5 mg. 10/26 keep on same treatment 10/27/24 continues with many complaints, no clear insight into self- 10/28 continue same treatment 10/29 increase Namenda to 5 mg p.o. b.i.d. and change Depakote to Depakene. Depakote level on 13/02 as per blood work of yesterday 10/30/24 - dc [employer]il[employer] inc olanzapine = continue depakene as he did take 5 capsules this am- prn olanzapine given - this afternoon for behaviors on unit- 10/31/24 wrote for liquid depakote option if refuses capsules, also got prn olanzapine for throwing self on floor 11/01 keep same treatment 11/02 increase Zyprexa to 20 mg p.o. q.h.s. 11/03 keep same treatment. 11/04 discontinue Depakote and start Trileptal 300 mg p.o. b.i.d.. Her healthcare proxy will bring a copy of that we are going to invoke it 11/06 increase olanzapine to 20mg po qhs and 10mg po daily. 11/07 continue tx. 12/04 continue tx. 12/05: no changes 12/06 continue tx. 12/12: continue plan of care 12/13: continue tx 12/19 continue current tx plan 12/25: appearing sedated, more of a falls risk, poorer ability to do ADLs. decrease trileptal dosing from 600 BID to 300 BID for now. 12/26: less sedated than yesterday, continue current mgmt, including 1:1, until attending can see pt in the morning. 12/30: continues less sedated. minimally interactive. continue current mgmt. 12/31: per HCP, not at baseline, over-sedated. begin valium taper. decrease valium 5 TID to 4 TID for now. per HCP and SW, HCP has been affirmed in court. IM back-up orders in place and to be enforced by nursing staff. no aggressive or agitated behaviors. 01/02: Continue current regimen and plans Plan 1. Continue with olanzapine 10 mg p.o. q.a.m. and 20 mg p.o. q.h.s., he refused p.o. he received olanzapine IM. 2. Continue with Valium 5 mg p.o. t.i.d. if he refuses he will get Valium IM. 3. We will encourage compliance. The patient had been noncompliant with sertraline, he remains dysphoric. 4. The patient has a healthcare proxy who was affirmed by court, and they want us to medicate him even if the patient does not want to be compliant. 5. At this moment the patient is slightly over-sedated with EPS but we will keep the same dose of antipsychotics since his violence has improved. 01/03/25 Continue plan of care Reassess treatment plan which includes IM medication patient has been much less aggressive than he has in the past Unclear discharge plan at this point 01/04/2025 Patient taking Valium and olanzapine regularly has IM prescribed if refuses intermittently taking medication for diabetes hypertension 01/05/25 Cont medicationhas been stabilizing try and d/c meds that are not esential simplify regimen 01/06/25 stop namenda monitor sugar / bp encourage med acceptance cont valium olanzapine 01/08/2025 Continue olanzapine Valium metformin try and taper and simplify medication as tolerated discharge planning monitor response to change in medication 01/09/25 Try and simplify med regimen d/c planning 01/11/2025 Patient generally more cooperative not agitated generally monitor blood sugar and blood pressure intermittently refuses some doses of metformin 01/12/25 Pt seen later in day seemed stable flat some balance problems noted lowwer trileptal and primidone ck ortho vs dailypt consult for balance 01/13/2025 Patient improving less reactive has not been aggressive more cooperative with treatment and medication. Discharge planning 01/14: fell this morning, per head/c-spine CT and pelvic XR, no osseus injuries. pt appears as at recent mental status. no complaints or requests other than for wheelchair. pt will have 1:1 for ambulation for now. continue current psychopharm mgmt. 01/15: Continue current management and treatment plan. 01/16: continue current management and treatment plan. 01/17 keep same treatment. 01/18 keep same treatment 01/19 keep same treatment 01/20 keep same treatment 01/21 keep same treatment 01/22: calm, cooperative, flat. no questions or complaints. stable presentation. continue current mgmt. 01/23: no change, continue current mgmt. 01/24: stable. continue current mgmt. reps from [facility] coming to [facility] pt for placement today. 01/25/2025 Patient in behavioral control vital signs stable generally accepting treatment continue discharge planning 01/26/2025 Patient generally cooperative seen in the milieu no aggression suicidality or her problematic behavior. Discharge planning strongly urged transition 01/27/2025 Patient continues to be generally stabilizing not combative agitated or threatening has remained generally calm seems safe for discharge planning much improved over time 01/28/2025 Patient seen psychiatric follow-up patient has significantly improved over the months he is calm cooperative seen watching television somewhat social at times not aggressive or combative 01/29 Continue current regime/plan. Improved. 01/31: stably improved. awaiting placement. continue current mgmt. 02/01: stable. continue current mgmt. awaiting placement. 02/02: no change in presentation or plan. 02/03: stable. continue current mgmt. 02/04/2025 Patient seen psychiatric follow-up no current behavioral difficulties no current ability to place patient in a less restricted setting 02/06: no change in presentation. continue current mgmt. 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 Patient took all medications today; nurse however reports that recently he seemed a little suspicious, on the verge of picking over medications. -vitals WNL -no new labs 02/15/2025 Patient states he is doing okay understands he is waiting for some form of placement. Accepting treatment vital signs unremarkable continue plan of care discharge plan 02/16/2025 No major changes patient has been waiting for placement no less restrictive setting available at this time continues to be cooperative with care no significant behavioral difficulties 02/18/2025 Vital signs stable no need to change current regimen continue discharge planning. No less restrictive setting presently available for discharge 02/19 continue treatment plan 02/22 continue tx. Reason for continued inpatient stay Substantial Risk for: inability to function Time Spent With Patient Time: Total time managing care of this patient today ____ minutes.
[2025-02-22] MEDS: OLANZapine 10 MG TABLET 20 MG PO (19:39)
[2025-02-22] MEDS: Mirtazapine 30 MG TABLET PO (19:39)
[2025-02-22] MEDS: Sertraline HCL 100 MG TABLET PO (19:39)
[2025-02-22] MEDS: OXcarbazepine 300 MG TABLET PO (19:39)
[2025-02-22 19:44] VITALS: BP 112/71; PULSE 70; RESP 16; TEMP 36.6; O2SAT 98
[2025-02-23 08:00] VITALS: BP 114/63; PULSE 72; RESP 18; TEMP 36.4; O2SAT 100
--- NOTE | 2025-02-23 08:33 | HO.PSYCHPN ---
Subjective Subjective Date of Service: 02/23/25 Reason For Visit: Anxiety, mood disorder, ASD Interim History: calm, cooperative. no questions or complaints. Mental Status Exam Mental Status Exam Patient Appearance: Appropriate Patient Orientation: Person and Situation Level of Consciousness: Awake and Appropriate Patient Behavior: Guarded and Passive Mood Description: Withdrawn Affect Description: Constricted Patient Cognition Impaired: Yes Ability to Follow Directions: Good Speech Pattern: Clear Hallucinations: None Delusions: Not Present Thought Process: Distracted and Slowed Thinking Thought Content: positive for [place] and positive for Poverty of Content Judgement: Poor Diagnostics Vital Signs (24Hr): Vital Signs - 24 hr 02/22/25 19:44 Temperature 97.9 F Pulse Rate 70 Respiratory Rate 16 Blood Pressure 112/71 Pulse Oximetry 98 Oxygen Delivery Method Room Air BMI result Body Mass Index 26.5 Labs 10/28/24 09:10 02/18/25 12:02 Imaging Radiology Impressions: ITS Impressions Hip X-Ray 01/12/25 13:30 IMPRESSION: No evidence of fracture of the bilateral hips. Electronically signed by: Kaushal Soni MD 01/12/2025 01:54 PM EDT RP Cervical Spine CT 01/14/25 07:59 IMPRESSION: Multilevel cervical spondylosis without acute fracture or trauma-related listhesis. Fleischner guidelines were followed. Electronically signed by: Abe Griffin MD 01/14/2025 09:50 AM EDT RP Head CT 01/14/25 08:30 IMPRESSION: No acute intracranial abnormality. No fracture seen. Electronically signed by: Chidi Rodriguez MD 01/17/2025 01:08 PM EDT RP Hip/Pelvis X-Ray 01/14/25 09:10 IMPRESSION: No acute fracture or dislocation. Electronically signed by: Abe Griffin MD 01/14/2025 10:35 AM EDT RP Medications Medications Current Medications Acetaminophen (Acetaminophen 325 Mg Tablet) 650 mg PO Q6H PRN PRN Reason: pain scale (1-10) Benztropine Mesylate (Benztropine Mesylate 1 Mg Tablet) 1 mg PO BEDTIME PRN PRN Reason: Extrapyramidal Effects Diazepam (Diazepam 10 Mg/2 Ml Cartridge) 5 mg IM TID PRN PRN Reason: PO refusal. HOLD FOR SEDATION Last Admin: 12/21/24 10:22 Dose: 5 mg Diazepam (Diazepam 2 Mg Tablet) 4 mg PO TID [facility] Last Admin: 02/22/25 19:39 Dose: 4 mg Empagliflozin (Empagliflozin 10 Mg Tablet) 10 mg PO DAILY [facility] Last Admin: 02/22/25 08:38 Dose: 10 mg Lisinopril (Lisinopril 20 Mg Tablet) 20 mg PO DAILY [facility]; Protocol Last Admin: 02/22/25 08:38 Dose: 20 mg Magnesium Hydroxide (Milk Of Magnesia 30 Ml Oral.Susp) 30 ml PO DAILY PRN PRN Reason: Constipation Last Admin: 02/04/25 14:59 Dose: 30 ml Metformin HCl (Metformin Hcl Er 500 Mg Tab.Er.24h) 1,000 mg PO DAILY [facility] Last Admin: 02/22/25 08:37 Dose: 1,000 mg Mirtazapine (Mirtazapine 30 Mg Tablet) 30 mg PO BEDTIME [facility] Last Admin: 02/22/25 19:39 Dose: 30 mg Nicotine Polacrilex (Nicotine Polacrilex 2 Mg Gum) 4 mg BUCCAL Q2H PRN PRN Reason: Nicotine Cravings Olanzapine (Olanzapine 10 Mg Tablet) 20 mg PO BEDTIME [facility] Last Admin: 02/22/25 19:39 Dose: 20 mg Olanzapine (Olanzapine 10 Mg Vial) 10 mg IM BID PRN PRN Reason: PO refusal Last Admin: 12/21/24 10:22 Dose: 10 mg Olanzapine (Olanzapine Odt 10 Mg Tab.Rapdis) 10 mg TRANSLINGU BID PRN PRN Reason: agitation Last Admin: 01/14/25 12:16 Dose: 10 mg Oxcarbazepine (Oxcarbazepine 300 Mg Tablet) 300 mg PO BEDTIME [facility] Last Admin: 02/22/25 19:39 Dose: 300 mg Primidone (Primidone 50 Mg Tablet) 25 mg PO BID [facility] Last Admin: 02/22/25 19:40 Dose: 25 mg Sertraline HCl (Sertraline Hcl 100 Mg Tablet) 100 mg PO BEDTIME [facility] Last Admin: 02/22/25 19:39 Dose: 100 mg Trazodone HCl (Trazodone Hcl 50 Mg Tablet) 50 mg PO BEDTIME PRN PRN Reason: Insomnia Allergies Allergies Allergy/AdvReac Type Severity Reaction Status Date / Time No Known Allergies Allergy Verified 10/14/24 18:14 [No Known Allergies*] Assessment & Plan Assessment & Plan (1) Mood disorder: Status: Acute Code(s): F39 - Unspecified mood [affective] disorder (2) Autism spectrum disorder: Status: Acute Code(s): F84.0 - Autistic disorder (3) Dementia: Status: Acute Code(s): F03.90 - Unspecified dementia, unspecified severity, without behavioral disturbance, psychotic disturbance, mood disturbance, and anxiety Plan Humza was admitted for safety and stabilization. His presentation is very similar to his last admission psychiatrically about a year ago and that is why his caregivers wanted to get ahead of things before he decompensated further. Current medications were reviewed and maintained. Contacts to be made with his treaters next week. 10/17: Continue current regimen and plans 10/19: Continue current tx plan and regime. 10/21: Memantine 5 mg daily- [facility]CI, memory sx Abilify 2 mg daily-augment to antidepressants currently being used. 10/22 continue current tx plan -pt confused 10/23 Continue trials, regime and plan. 10/24: Continue regime and plan of care. 10/25 Abilify increased up to 5 mg. 10/26 keep on same treatment 10/27/24 continues with many complaints, no clear insight into self- 10/28 continue same treatment 10/29 increase Namenda to 5 mg p.o. b.i.d. and change Depakote to Depakene. Depakote level on 13/02 as per blood work of yesterday 10/30/24 - [facility] [employer] olanzapine = continue depakene as he did take 5 capsules this am- prn olanzapine given - this afternoon for behaviors on unit- 10/31/24 wrote for liquid depakote option if refuses capsules, also got prn olanzapine for throwing self on floor 11/01 keep same treatment 11/02 increase Zyprexa to 20 mg p.o. q.h.s. 11/03 keep same treatment. 11/04 discontinue Depakote and start Trileptal 300 mg p.o. b.i.d.. Her healthcare proxy will bring a copy of that we are going to invoke it 11/06 increase olanzapine to 20mg po qhs and 10mg po daily. 11/07 continue tx. 12/04 continue tx. 12/05: no changes 12/06 continue tx. 12/12: continue plan of care 12/13: continue tx 12/19 continue current tx plan 12/25: appearing sedated, more of a falls risk, poorer ability to do ADLs. decrease trileptal dosing from 600 BID to 300 BID for now. 12/26: less sedated than yesterday, continue current mgmt, including 1:1, until attending can see pt in the morning. 12/30: continues less sedated. minimally interactive. continue current mgmt. 12/31: per HCP, not at baseline, over-sedated. begin valium taper. decrease valium 5 TID to 4 TID for now. per HCP and SW, HCP has been affirmed in court. IM back-up orders in place and to be enforced by nursing staff. no aggressive or agitated behaviors. 01/02: Continue current regimen and plans Plan 1. Continue with olanzapine 10 mg p.o. q.a.m. and 20 mg p.o. q.h.s., he refused p.o. he received olanzapine IM. 2. Continue with Valium 5 mg p.o. t.i.d. if he refuses he will get Valium IM. 3. We will encourage compliance. The patient had been noncompliant with sertraline, he remains dysphoric. 4. The patient has a healthcare proxy who was affirmed by court, and they want us to medicate him even if the patient does not want to be compliant. 5. At this moment the patient is slightly over-sedated with EPS but we will keep the same dose of antipsychotics since his violence has improved. 01/03/25 Continue plan of care Reassess treatment plan which includes IM medication patient has been much less aggressive than he has in the past Unclear discharge plan at this point 01/04/2025 Patient taking Valium and olanzapine regularly has IM prescribed if refuses intermittently taking medication for diabetes hypertension 01/05/25 Cont medicationhas been stabilizing try and d/c meds that are not esential simplify regimen 01/06/25 stop namenda monitor sugar / bp encourage med acceptance cont valium olanzapine 01/08/2025 Continue olanzapine Valium metformin try and taper and simplify medication as tolerated discharge planning monitor response to change in medication 01/09/25 Try and simplify med regimen d/c planning 01/11/2025 Patient generally more cooperative not agitated generally monitor blood sugar and blood pressure intermittently refuses some doses of metformin 01/12/25 Pt seen later in day seemed stable flat some balance problems noted lowwer trileptal and primidone ck ortho vs dailypt consult for balance 01/13/2025 Patient improving less reactive has not been aggressive more cooperative with treatment and medication. Discharge planning 01/14: fell this morning, per head/c-spine CT and pelvic XR, no osseus injuries. pt appears as at recent mental status. no complaints or requests other than for wheelchair. pt will have 1:1 for ambulation for now. continue current psychopharm mgmt. 01/15: Continue current management and treatment plan. 01/16: continue current management and treatment plan. 01/17 keep same treatment. 01/18 keep same treatment 01/19 keep same treatment 01/20 keep same treatment 01/21 keep same treatment 01/22: calm, cooperative, flat. no questions or complaints. stable presentation. continue current mgmt. 01/23: no change, continue current mgmt. 01/24: stable. continue current mgmt. reps from [facility] coming to [facility] pt for placement today. 01/25/2025 Patient in behavioral control vital signs stable generally accepting treatment continue discharge planning 01/26/2025 Patient generally cooperative seen in the milieu no aggression suicidality or her problematic behavior. Discharge planning strongly urged transition 01/27/2025 Patient continues to be generally stabilizing not combative agitated or threatening has remained generally calm seems safe for discharge planning much improved over time 01/28/2025 Patient seen psychiatric follow-up patient has significantly improved over the months he is calm cooperative seen watching television somewhat social at times not aggressive or combative 01/29 Continue current regime/plan. Improved. 01/31: stably improved. awaiting placement. continue current mgmt. 02/01: stable. continue current mgmt. awaiting placement. 02/02: no change in presentation or plan. 02/03: stable. continue current mgmt. 02/04/2025 Patient seen psychiatric follow-up no current behavioral difficulties no current ability to place patient in a less restricted setting 02/06: no change in presentation. continue current mgmt. 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 Patient took all medications today; nurse however reports that recently he seemed a little suspicious, on the verge of picking over medications. -vitals WNL -no new labs 02/15/2025 Patient states he is doing okay understands he is waiting for some form of placement. Accepting treatment vital signs unremarkable continue plan of care discharge plan 02/16/2025 No major changes patient has been waiting for placement no less restrictive setting available at this time continues to be cooperative with care no significant behavioral difficulties 02/18/2025 Vital signs stable no need to change current regimen continue discharge planning. No less restrictive setting presently available for discharge 02/19 continue treatment plan 02/23: stable presentation. continue current mgmt. Reason for continued inpatient stay Substantial Risk for: inability to function and rapid decompensation Time Spent With Patient Time: Total time managing care of this patient today ____ minutes.
[2025-02-23] MEDS: metFORMIN HCl ER 500 MG TAB.ER.24H 1000 MG PO (09:33)
[2025-02-23] MEDS: diazePAM 2 MG TABLET 4 MG PO ×3 (09:33→20:30)
[2025-02-23] MEDS: Primidone 50 MG TABLET 25 MG PO ×2 (09:33→20:30)
[2025-02-23] MEDS: lisinopriL 20 MG TABLET PO (09:34)
[2025-02-23] MEDS: Empagliflozin 10 MG TABLET PO (09:34)
[2025-02-23 20:08] VITALS: BP 100/59; PULSE 69; RESP 17; TEMP 36.9; O2SAT 98
[2025-02-23] MEDS: OLANZapine 10 MG TABLET 20 MG PO (20:30)
[2025-02-23] MEDS: OXcarbazepine 300 MG TABLET PO (20:30)
[2025-02-23] MEDS: Mirtazapine 30 MG TABLET PO (20:30)
[2025-02-23] MEDS: Sertraline HCL 100 MG TABLET PO (20:30)
[2025-02-24 08:00] VITALS: BP 107/72; PULSE 74; RESP 20; TEMP 36.1; O2SAT 96
[2025-02-24] MEDS: diazePAM 2 MG TABLET 4 MG PO ×3 (08:26→20:39)
[2025-02-24] MEDS: Primidone 50 MG TABLET 25 MG PO ×2 (08:27→20:39)
[2025-02-24] MEDS: Empagliflozin 10 MG TABLET PO (08:27)
[2025-02-24] MEDS: lisinopriL 20 MG TABLET PO (08:27)
[2025-02-24] MEDS: metFORMIN HCl ER 500 MG TAB.ER.24H 1000 MG PO (08:27)
[2025-02-24 13:56] VITALS: BMI 26.5
--- NOTE | 2025-02-24 15:44 | HO.PSYCHPN ---
Subjective Subjective Date of Service: 02/24/25 Reason For Visit: Anxiety, mood disorder, ASD Interim History: no change in presentation. per staff, no issues overnight. taking meds. sleeping, watching TV. Mental Status Exam Mental Status Exam Patient Appearance: Appropriate Patient Orientation: Person and Situation Level of Consciousness: Awake and Appropriate Patient Behavior: Guarded and Passive Mood Description: Withdrawn Affect Description: Constricted Patient Cognition Impaired: Yes Ability to Follow Directions: Good Speech Pattern: Clear Hallucinations: None Delusions: Not Present Thought Process: Distracted and Slowed Thinking Thought Content: positive for [place] and positive for Poverty of Content Judgement: Poor Diagnostics Vital Signs (24Hr): Vital Signs - 24 hr 02/23/25 20:08 02/24/25 08:00 Temperature 98.4 F 96.9 F Pulse Rate 69 74 Respiratory Rate 17 20 Blood Pressure 100/59 L 107/72 Pulse Oximetry 98 96 Oxygen Delivery Method Room Air Room Air BMI result Body Mass Index 26.5 Labs 10/28/24 09:10 02/18/25 12:02 Imaging Radiology Impressions: ITS Impressions Hip X-Ray 01/12/25 13:30 IMPRESSION: No evidence of fracture of the bilateral hips. Electronically signed by: Kaushal Soni MD 01/12/2025 01:54 PM EDT RP Cervical Spine CT 01/14/25 07:59 IMPRESSION: Multilevel cervical spondylosis without acute fracture or trauma-related listhesis. Fleischner guidelines were followed. Electronically signed by: Abe Griffin MD 01/14/2025 09:50 AM EDT RP Head CT 01/14/25 08:30 IMPRESSION: No acute intracranial abnormality. No fracture seen. Electronically signed by: Chidi Rodriguez MD 01/17/2025 01:08 PM EDT RP Hip/Pelvis X-Ray 01/14/25 09:10 IMPRESSION: No acute fracture or dislocation. Electronically signed by: Abe Griffin MD 01/14/2025 10:35 AM EDT RP Medications Medications Current Medications Acetaminophen (Acetaminophen 325 Mg Tablet) 650 mg PO Q6H PRN PRN Reason: pain scale (1-10) Benztropine Mesylate (Benztropine Mesylate 1 Mg Tablet) 1 mg PO BEDTIME PRN PRN Reason: Extrapyramidal Effects Diazepam (Diazepam 10 Mg/2 Ml Cartridge) 5 mg IM TID PRN PRN Reason: PO refusal. HOLD FOR SEDATION Last Admin: 12/21/24 10:22 Dose: 5 mg Diazepam (Diazepam 2 Mg Tablet) 4 mg PO TID [facility] Last Admin: 02/24/25 15:03 Dose: 4 mg Empagliflozin (Empagliflozin 10 Mg Tablet) 10 mg PO DAILY [facility] Last Admin: 02/24/25 08:27 Dose: 10 mg Lisinopril (Lisinopril 20 Mg Tablet) 20 mg PO DAILY [facility]; Protocol Last Admin: 02/24/25 08:27 Dose: 20 mg Magnesium Hydroxide (Milk Of Magnesia 30 Ml Oral.Susp) 30 ml PO DAILY PRN PRN Reason: Constipation Last Admin: 02/04/25 14:59 Dose: 30 ml Metformin HCl (Metformin Hcl Er 500 Mg Tab.Er.24h) 1,000 mg PO DAILY [facility] Last Admin: 02/24/25 08:27 Dose: 1,000 mg Mirtazapine (Mirtazapine 30 Mg Tablet) 30 mg PO BEDTIME [facility] Last Admin: 02/23/25 20:30 Dose: 30 mg Nicotine Polacrilex (Nicotine Polacrilex 2 Mg Gum) 4 mg BUCCAL Q2H PRN PRN Reason: Nicotine Cravings Olanzapine (Olanzapine 10 Mg Tablet) 20 mg PO BEDTIME [facility] Last Admin: 02/23/25 20:30 Dose: 20 mg Olanzapine (Olanzapine 10 Mg Vial) 10 mg IM BID PRN PRN Reason: PO refusal Last Admin: 12/21/24 10:22 Dose: 10 mg Olanzapine (Olanzapine Odt 10 Mg Tab.Rapdis) 10 mg TRANSLINGU BID PRN PRN Reason: agitation Last Admin: 01/14/25 12:16 Dose: 10 mg Oxcarbazepine (Oxcarbazepine 300 Mg Tablet) 300 mg PO BEDTIME [facility] Last Admin: 02/23/25 20:30 Dose: 300 mg Primidone (Primidone 50 Mg Tablet) 25 mg PO BID [facility] Last Admin: 02/24/25 08:27 Dose: 25 mg Sertraline HCl (Sertraline Hcl 100 Mg Tablet) 100 mg PO BEDTIME [facility] Last Admin: 02/23/25 20:30 Dose: 100 mg Trazodone HCl (Trazodone Hcl 50 Mg Tablet) 50 mg PO BEDTIME PRN PRN Reason: Insomnia Allergies Allergies Allergy/AdvReac Type Severity Reaction Status Date / Time No Known Allergies Allergy Verified 10/14/24 18:14 [No Known Allergies*] Assessment & Plan Assessment & Plan (1) Mood disorder: Status: Acute Code(s): F39 - Unspecified mood [affective] disorder (2) Autism spectrum disorder: Status: Acute Code(s): F84.0 - Autistic disorder (3) Dementia: Status: Acute Code(s): F03.90 - Unspecified dementia, unspecified severity, without behavioral disturbance, psychotic disturbance, mood disturbance, and anxiety Plan Humza was admitted for safety and stabilization. His presentation is very similar to his last admission psychiatrically about a year ago and that is why his caregivers wanted to get ahead of things before he decompensated further. Current medications were reviewed and maintained. Contacts to be made with his treaters next week. 10/17: Continue current regimen and plans 10/19: Continue current tx plan and regime. 10/21: Memantine 5 mg daily- [facility]CI, memory sx Abilify 2 mg daily-augment to antidepressants currently being used. 10/22 continue current tx plan -pt confused 10/23 Continue trials, regime and plan. 10/24: Continue regime and plan of care. 10/25 Abilify increased up to 5 mg. 10/26 keep on same treatment 10/27/24 continues with many complaints, no clear insight into self- 10/28 continue same treatment 10/29 increase Namenda to 5 mg p.o. b.i.d. and change Depakote to Depakene. Depakote level on 13/02 as per blood work of yesterday 10/30/24 - [facility] [email or web address] olanzapine = continue depakene as he did take 5 capsules this am- prn olanzapine given - this afternoon for behaviors on unit- 10/31/24 wrote for liquid depakote option if refuses capsules, also got prn olanzapine for throwing self on floor 11/01 keep same treatment 11/02 increase Zyprexa to 20 mg p.o. q.h.s. 11/03 keep same treatment. 11/04 discontinue Depakote and start Trileptal 300 mg p.o. b.i.d.. Her healthcare proxy will bring a copy of that we are going to invoke it 11/06 increase olanzapine to 20mg po qhs and 10mg po daily. 11/07 continue tx. 12/04 continue tx. 12/05: no changes 12/06 continue tx. 12/12: continue plan of care 12/13: continue tx 12/19 continue current tx plan 12/25: appearing sedated, more of a falls risk, poorer ability to do ADLs. decrease trileptal dosing from 600 BID to 300 BID for now. 12/26: less sedated than yesterday, continue current mgmt, including 1:1, until attending can see pt in the morning. 12/30: continues less sedated. minimally interactive. continue current mgmt. 12/31: per HCP, not at baseline, over-sedated. begin valium taper. decrease valium 5 TID to 4 TID for now. per HCP and SW, HCP has been affirmed in court. IM back-up orders in place and to be enforced by nursing staff. no aggressive or agitated behaviors. 01/02: Continue current regimen and plans Plan 1. Continue with olanzapine 10 mg p.o. q.a.m. and 20 mg p.o. q.h.s., he refused p.o. he received olanzapine IM. 2. Continue with Valium 5 mg p.o. t.i.d. if he refuses he will get Valium IM. 3. We will encourage compliance. The patient had been noncompliant with sertraline, he remains dysphoric. 4. The patient has a healthcare proxy who was affirmed by court, and they want us to medicate him even if the patient does not want to be compliant. 5. At this moment the patient is slightly over-sedated with EPS but we will keep the same dose of antipsychotics since his violence has improved. 01/03/25 Continue plan of care Reassess treatment plan which includes IM medication patient has been much less aggressive than he has in the past Unclear discharge plan at this point 01/04/2025 Patient taking Valium and olanzapine regularly has IM prescribed if refuses intermittently taking medication for diabetes hypertension 01/05/25 Cont medicationhas been stabilizing try and d/c meds that are not esential simplify regimen 01/06/25 stop namenda monitor sugar / bp encourage med acceptance cont valium olanzapine 01/08/2025 Continue olanzapine Valium metformin try and taper and simplify medication as tolerated discharge planning monitor response to change in medication 01/09/25 Try and simplify med regimen d/c planning 01/11/2025 Patient generally more cooperative not agitated generally monitor blood sugar and blood pressure intermittently refuses some doses of metformin 01/12/25 Pt seen later in day seemed stable flat some balance problems noted lowwer trileptal and primidone ck ortho vs dailypt consult for balance 01/13/2025 Patient improving less reactive has not been aggressive more cooperative with treatment and medication. Discharge planning 01/14: fell this morning, per head/c-spine CT and pelvic XR, no osseus injuries. pt appears as at recent mental status. no complaints or requests other than for wheelchair. pt will have 1:1 for ambulation for now. continue current psychopharm mgmt. 01/15: Continue current management and treatment plan. 01/16: continue current management and treatment plan. 01/17 keep same treatment. 01/18 keep same treatment 01/19 keep same treatment 01/20 keep same treatment 01/21 keep same treatment 01/22: calm, cooperative, flat. no questions or complaints. stable presentation. continue current mgmt. 01/23: no change, continue current mgmt. 01/24: stable. continue current mgmt. reps from [facility] coming to [facility] pt for placement today. 01/25/2025 Patient in behavioral control vital signs stable generally accepting treatment continue discharge planning 01/26/2025 Patient generally cooperative seen in the milieu no aggression suicidality or her problematic behavior. Discharge planning strongly urged transition 01/27/2025 Patient continues to be generally stabilizing not combative agitated or threatening has remained generally calm seems safe for discharge planning much improved over time 01/28/2025 Patient seen psychiatric follow-up patient has significantly improved over the months he is calm cooperative seen watching television somewhat social at times not aggressive or combative 01/29 Continue current regime/plan. Improved. 01/31: stably improved. awaiting placement. continue current mgmt. 02/01: stable. continue current mgmt. awaiting placement. 02/02: no change in presentation or plan. 02/03: stable. continue current mgmt. 02/04/2025 Patient seen psychiatric follow-up no current behavioral difficulties no current ability to place patient in a less restricted setting 02/06: no change in presentation. continue current mgmt. 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 Patient took all medications today; nurse however reports that recently he seemed a little suspicious, on the verge of picking over medications. -vitals WNL -no new labs 02/15/2025 Patient states he is doing okay understands he is waiting for some form of placement. Accepting treatment vital signs unremarkable continue plan of care discharge plan 02/16/2025 No major changes patient has been waiting for placement no less restrictive setting available at this time continues to be cooperative with care no significant behavioral difficulties 02/18/2025 Vital signs stable no need to change current regimen continue discharge planning. No less restrictive setting presently available for discharge 02/19 continue treatment plan 02/22 continue tx. 02/24: no change in presentation. continue current mgmt. Reason for continued inpatient stay Substantial Risk for: inability to function and rapid decompensation Time Spent With Patient Time: Total time managing care of this patient today ____ minutes.
[2025-02-24 20:00] VITALS: BP 98/60; PULSE 60; RESP 16; TEMP 36.1; O2SAT 99
[2025-02-24] MEDS: OLANZapine 10 MG TABLET 20 MG PO (20:38)
[2025-02-24] MEDS: Mirtazapine 30 MG TABLET PO (20:39)
[2025-02-24] MEDS: Sertraline HCL 100 MG TABLET PO (20:39)
[2025-02-24] MEDS: OXcarbazepine 300 MG TABLET PO (20:39)
[2025-02-25 07:57] LABS: Creatinine Clr Calc Pharmacy 70.7; Estimated Glomerular Filt Rate > 60
[2025-02-25 08:00] VITALS: BP 105/72; PULSE 74; RESP 16; TEMP 36; O2SAT 98
[2025-02-25] MEDS: Empagliflozin 10 MG TABLET PO (08:05)
[2025-02-25] MEDS: metFORMIN HCl ER 500 MG TAB.ER.24H 1000 MG PO (08:06)
[2025-02-25] MEDS: lisinopriL 20 MG TABLET PO (08:06)
[2025-02-25] MEDS: diazePAM 2 MG TABLET 4 MG PO ×3 (08:06→19:37)
[2025-02-25] MEDS: Primidone 50 MG TABLET 25 MG PO ×2 (08:06→19:37)
[2025-02-25] MEDS: OLANZapine 10 MG TABLET 20 MG PO (19:36)
[2025-02-25] MEDS: OXcarbazepine 300 MG TABLET PO (19:36)
[2025-02-25] MEDS: Sertraline HCL 100 MG TABLET PO (19:37)
[2025-02-25] MEDS: Mirtazapine 30 MG TABLET PO (19:37)
[2025-02-25 19:39] VITALS: BP 93/61; PULSE 72; RESP 18; TEMP 36.4; O2SAT 99
[2025-02-26 08:00] VITALS: BP 100/61; PULSE 72; RESP 18; TEMP 36.8; O2SAT 99
[2025-02-26] MEDS: metFORMIN HCl ER 500 MG TAB.ER.24H 1000 MG PO (08:33)
[2025-02-26] MEDS: diazePAM 2 MG TABLET 4 MG PO ×3 (08:33→19:23)
[2025-02-26] MEDS: Empagliflozin 10 MG TABLET PO (08:33)
[2025-02-26] MEDS: Primidone 50 MG TABLET 25 MG PO ×2 (08:33→19:23)
[2025-02-26] MEDS: lisinopriL 20 MG TABLET PO (08:33)
--- NOTE | 2025-02-26 15:08 | HO.PSYCHPN ---
Subjective Subjective Date of Service: 02/26/25 Reason For Visit: Anxiety, mood disorder, ASD Interim History: no issues, no complaints. per staff, no change in presentation. Mental Status Exam Mental Status Exam Patient Appearance: Appropriate Patient Orientation: Person and Situation Level of Consciousness: Awake and Appropriate Patient Behavior: Guarded and Passive Mood Description: Withdrawn Affect Description: Constricted Patient Cognition Impaired: Yes Ability to Follow Directions: Good Speech Pattern: Clear Hallucinations: None Delusions: Not Present Thought Process: Distracted and Slowed Thinking Thought Content: positive for [place] and positive for Poverty of Content Judgement: Poor Diagnostics Vital Signs (24Hr): Vital Signs - 24 hr 02/25/25 19:39 02/26/25 08:00 Temperature 97.5 F 98.2 F Pulse Rate 72 72 Respiratory Rate 18 18 Blood Pressure 93/61 100/61 Pulse Oximetry 99 99 Oxygen Delivery Method Room Air Room Air BMI result Body Mass Index 26.5 Labs 10/28/24 09:10 02/25/25 07:34 Labs: Laboratory Results - last 48 hr 02/25/25 07:34 Creatinine 1.02 Estim Creat Clear Calc 70.7 Estimated GFR > 60 Imaging Radiology Impressions: ITS Impressions Hip X-Ray 01/12/25 13:30 IMPRESSION: No evidence of fracture of the bilateral hips. Electronically signed by: Kaushal Soni MD 01/12/2025 01:54 PM EDT RP Cervical Spine CT 01/14/25 07:59 IMPRESSION: Multilevel cervical spondylosis without acute fracture or trauma-related listhesis. Fleischner guidelines were followed. Electronically signed by: Abe Griffin MD 01/14/2025 09:50 AM EDT RP Head CT 01/14/25 08:30 IMPRESSION: No acute intracranial abnormality. No fracture seen. Electronically signed by: Chidi Rodriguez MD 01/17/2025 01:08 PM EDT RP Hip/Pelvis X-Ray 01/14/25 09:10 IMPRESSION: No acute fracture or dislocation. Electronically signed by: Abe Griffin MD 01/14/2025 10:35 AM EDT RP Medications Medications Current Medications Acetaminophen (Acetaminophen 325 Mg Tablet) 650 mg PO Q6H PRN PRN Reason: pain scale (1-10) Benztropine Mesylate (Benztropine Mesylate 1 Mg Tablet) 1 mg PO BEDTIME PRN PRN Reason: Extrapyramidal Effects Diazepam (Diazepam 10 Mg/2 Ml Cartridge) 5 mg IM TID PRN PRN Reason: PO refusal. HOLD FOR SEDATION Last Admin: 12/21/24 10:22 Dose: 5 mg Diazepam (Diazepam 2 Mg Tablet) 4 mg PO TID DESIRAE Last Admin: 02/26/25 08:33 Dose: 4 mg Empagliflozin (Empagliflozin 10 Mg Tablet) 10 mg PO DAILY DESIRAE Last Admin: 02/26/25 08:33 Dose: 10 mg Lisinopril (Lisinopril 20 Mg Tablet) 20 mg PO DAILY DESIRAE; Protocol Last Admin: 02/26/25 08:33 Dose: 20 mg Magnesium Hydroxide (Milk Of Magnesia 30 Ml Oral.Susp) 30 ml PO DAILY PRN PRN Reason: Constipation Last Admin: 02/04/25 14:59 Dose: 30 ml Metformin HCl (Metformin Hcl Er 500 Mg Tab.Er.24h) 1,000 mg PO DAILY DESIRAE Last Admin: 02/26/25 08:33 Dose: 1,000 mg Mirtazapine (Mirtazapine 30 Mg Tablet) 30 mg PO BEDTIME DESIRAE Last Admin: 02/25/25 19:37 Dose: 30 mg Nicotine Polacrilex (Nicotine Polacrilex 2 Mg Gum) 4 mg BUCCAL Q2H PRN PRN Reason: Nicotine Cravings Olanzapine (Olanzapine 10 Mg Tablet) 20 mg PO BEDTIME DESIRAE Last Admin: 02/25/25 19:36 Dose: 20 mg Olanzapine (Olanzapine 10 Mg Vial) 10 mg IM BID PRN PRN Reason: PO refusal Last Admin: 12/21/24 10:22 Dose: 10 mg Olanzapine (Olanzapine Odt 10 Mg Tab.Rapdis) 10 mg TRANSLINGU BID PRN PRN Reason: agitation Last Admin: 01/14/25 12:16 Dose: 10 mg Oxcarbazepine (Oxcarbazepine 300 Mg Tablet) 300 mg PO BEDTIME DESIRAE Last Admin: 02/25/25 19:36 Dose: 300 mg Primidone (Primidone 50 Mg Tablet) 25 mg PO BID DESIRAE Last Admin: 02/26/25 08:33 Dose: 25 mg Sertraline HCl (Sertraline Hcl 100 Mg Tablet) 100 mg PO BEDTIME DESIRAE Last Admin: 02/25/25 19:37 Dose: 100 mg Trazodone HCl (Trazodone Hcl 50 Mg Tablet) 50 mg PO BEDTIME PRN PRN Reason: Insomnia Allergies Allergies Allergy/AdvReac Type Severity Reaction Status Date / Time No Known Allergies Allergy Verified 10/14/24 18:14 [No Known Allergies*] Assessment & Plan Assessment & Plan (1) Mood disorder: Status: Acute Code(s): F39 - Unspecified mood [affective] disorder (2) Autism spectrum disorder: Status: Acute Code(s): F84.0 - Autistic disorder (3) Dementia: Status: Acute Code(s): F03.90 - Unspecified dementia, unspecified severity, without behavioral disturbance, psychotic disturbance, mood disturbance, and anxiety Plan Humza was admitted for safety and stabilization. His presentation is very similar to his last admission psychiatrically about a year ago and that is why his caregivers wanted to get ahead of things before he decompensated further. Current medications were reviewed and maintained. Contacts to be made with his treaters next week. 10/17: Continue current regimen and plans 10/19: Continue current tx plan and regime. 10/21: Memantine 5 mg daily- [facility], memory sx Abilify 2 mg daily-augment to antidepressants currently being used. 10/22 continue current tx plan -pt confused 10/23 Continue trials, regime and plan. 10/24: Continue regime and plan of care. 10/25 Abilify increased up to 5 mg. 10/26 keep on same treatment 10/27/24 continues with many complaints, no clear insight into self- 10/28 continue same treatment 10/29 increase Namenda to 5 mg p.o. b.i.d. and change Depakote to Depakene. Depakote level on 13/02 as per blood work of yesterday 10/30/24 - [facility] [employer] olanzapine = continue depakene as he did take 5 capsules this am- prn olanzapine given - this afternoon for behaviors on unit- 10/31/24 wrote for liquid depakote option if refuses capsules, also got prn olanzapine for throwing self on floor 11/01 keep same treatment 11/02 increase Zyprexa to 20 mg p.o. q.h.s. 11/03 keep same treatment. 11/04 discontinue Depakote and start Trileptal 300 mg p.o. b.i.d.. Her healthcare proxy will bring a copy of that we are going to invoke it 11/06 increase olanzapine to 20mg po qhs and 10mg po daily. 11/07 continue tx. 12/04 continue tx. 12/05: no changes 12/06 continue tx. 12/12: continue plan of care 12/13: continue tx 12/19 continue current tx plan 12/25: appearing sedated, more of a falls risk, poorer ability to do ADLs. decrease trileptal dosing from 600 BID to 300 BID for now. 12/26: less sedated than yesterday, continue current mgmt, including 1:1, until attending can see pt in the morning. 12/30: continues less sedated. minimally interactive. continue current mgmt. 12/31: per HCP, not at baseline, over-sedated. begin valium taper. decrease valium 5 TID to 4 TID for now. per HCP and SW, HCP has been affirmed in court. IM back-up orders in place and to be enforced by nursing staff. no aggressive or agitated behaviors. 01/02: Continue current regimen and plans Plan 1. Continue with olanzapine 10 mg p.o. q.a.m. and 20 mg p.o. q.h.s., he refused p.o. he received olanzapine IM. 2. Continue with Valium 5 mg p.o. t.i.d. if he refuses he will get Valium IM. 3. We will encourage compliance. The patient had been noncompliant with sertraline, he remains dysphoric. 4. The patient has a healthcare proxy who was affirmed by court, and they want us to medicate him even if the patient does not want to be compliant. 5. At this moment the patient is slightly over-sedated with EPS but we will keep the same dose of antipsychotics since his violence has improved. 01/03/25 Continue plan of care Reassess treatment plan which includes IM medication patient has been much less aggressive than he has in the past Unclear discharge plan at this point 01/04/2025 Patient taking Valium and olanzapine regularly has IM prescribed if refuses intermittently taking medication for diabetes hypertension 01/05/25 Cont medicationhas been stabilizing try and d/c meds that are not esential simplify regimen 01/06/25 stop namenda monitor sugar / bp encourage med acceptance cont valium olanzapine 01/08/2025 Continue olanzapine Valium metformin try and taper and simplify medication as tolerated discharge planning monitor response to change in medication 01/09/25 Try and simplify med regimen d/c planning 01/11/2025 Patient generally more cooperative not agitated generally monitor blood sugar and blood pressure intermittently refuses some doses of metformin 01/12/25 Pt seen later in day seemed stable flat some balance problems noted lowwer trileptal and primidone ck ortho vs dailypt consult for balance 01/13/2025 Patient improving less reactive has not been aggressive more cooperative with treatment and medication. Discharge planning 01/14: fell this morning, per head/c-spine CT and pelvic XR, no osseus injuries. pt appears as at recent mental status. no complaints or requests other than for wheelchair. pt will have 1:1 for ambulation for now. continue current psychopharm mgmt. 01/15: Continue current management and treatment plan. 01/16: continue current management and treatment plan. 01/17 keep same treatment. 01/18 keep same treatment 01/19 keep same treatment 01/20 keep same treatment 01/21 keep same treatment 01/22: calm, cooperative, flat. no questions or complaints. stable presentation. continue current mgmt. 01/23: no change, continue current mgmt. 01/24: stable. continue current mgmt. reps from [facility] coming [facility] pt for placement today. 01/25/2025 Patient in behavioral control vital signs stable generally accepting treatment continue discharge planning 01/26/2025 Patient generally cooperative seen in the milieu no aggression suicidality or her problematic behavior. Discharge planning strongly urged transition 01/27/2025 Patient continues to be generally stabilizing not combative agitated or threatening has remained generally calm seems safe for discharge planning much improved over time 01/28/2025 Patient seen psychiatric follow-up patient has significantly improved over the months he is calm cooperative seen watching television somewhat social at times not aggressive or combative 01/29 Continue current regime/plan. Improved. 01/31: stably improved. awaiting placement. continue current mgmt. 02/01: stable. continue current mgmt. awaiting placement. 02/02: no change in presentation or plan. 02/03: stable. continue current mgmt. 02/04/2025 Patient seen psychiatric follow-up no current behavioral difficulties no current ability to place patient in a less restricted setting 02/06: no change in presentation. continue current mgmt. 02/07/25 cont d/c planning pt has been tentatively accepted no less restrictive setting currently available 02/08/2025 Continue discharge planning patient tentatively accepted no funding source available at this time no less restrictive setting available 02/14 Patient tells entry writer he is hanging in there he says it can be hard sometimes to do so but it is overall going okay. Patient took all medications today; nurse however reports that recently he seemed a little suspicious, on the verge of picking over medications. -vitals WNL -no new labs 02/15/2025 Patient states he is doing okay understands he is waiting for some form of placement. Accepting treatment vital signs unremarkable continue plan of care discharge plan 02/16/2025 No major changes patient has been waiting for placement no less restrictive setting available at this time continues to be cooperative with care no significant behavioral difficulties 02/18/2025 Vital signs stable no need to change current regimen continue discharge planning. No less restrictive setting presently available for discharge 02/19 continue treatment plan 02/22 continue tx. 02/24: no change in presentation. continue current mgmt. 5: no change in presentation. continue current mgmt. Reason for continued inpatient stay Substantial Risk for: inability to function Time Spent With Patient Time: Total time managing care of this patient today ____ minutes.
[2025-02-26] MEDS: Mirtazapine 30 MG TABLET PO (19:22)
[2025-02-26] MEDS: OXcarbazepine 300 MG TABLET PO (19:23)
[2025-02-26] MEDS: Sertraline HCL 100 MG TABLET PO (19:23)
[2025-02-26] MEDS: OLANZapine 10 MG TABLET 20 MG PO (19:23)
[2025-02-26 20:10] VITALS: BP 90/54; PULSE 79; RESP 16; TEMP 37.2; O2SAT 97
[2025-02-27 08:00] VITALS: BP 110/68; PULSE 81; RESP 18; TEMP 36.6; O2SAT 99
[2025-02-27] MEDS: Primidone 50 MG TABLET 25 MG PO ×2 (08:17→20:02)
[2025-02-27] MEDS: metFORMIN HCl ER 500 MG TAB.ER.24H 1000 MG PO (08:17)
[2025-02-27] MEDS: diazePAM 2 MG TABLET 4 MG PO ×3 (08:17→20:01)
[2025-02-27] MEDS: Empagliflozin 10 MG TABLET PO (08:17)
[2025-02-27] MEDS: lisinopriL 20 MG TABLET PO (08:17)
--- NOTE | 2025-02-27 14:47 | P.PNPSI_ITS ---
Subjective Subjective Date of Service: 02/27/25 Reason For Visit: Anxiety, mood disorder, ASD Interim History: no change in presentation. remains more drawn and withdrawn than prior. c/o double vision. per staff, no change. Mental Status Exam Mental Status Exam Patient Appearance: Appropriate Patient Orientation: Person and Situation Level of Consciousness: Awake and Appropriate Patient Behavior: Guarded and Passive Mood Description: Withdrawn Affect Description: Constricted Patient Cognition Impaired: Yes Ability to Follow Directions: Good Speech Pattern: Clear Hallucinations: None Delusions: Not Present Thought Process: Distracted and Slowed Thinking Thought Content: positive for [place] and positive for Poverty of Content Judgement: Poor Diagnostics Vital Signs (24Hr): Vital Signs - 24 hr 02/26/25 20:10 02/27/25 08:00 Temperature 99.0 F 97.9 F Pulse Rate 79 81 Respiratory Rate 16 18 Blood Pressure 90/54 L 110/68 Pulse Oximetry 97 99 Oxygen Delivery Method Room Air Room Air BMI result Body Mass Index 26.5 Labs 10/28/24 09:10 02/25/25 07:34 Imaging Radiology Impressions: ITS Impressions Hip X-Ray 01/12/25 13:30 IMPRESSION: No evidence of fracture of the bilateral hips. Electronically signed by: Kaushal Soni MD 01/12/2025 01:54 PM EDT RP Cervical Spine CT 01/14/25 07:59 IMPRESSION: Multilevel cervical spondylosis without acute fracture or trauma-related listhesis. Fleischner guidelines were followed. Electronically signed by: Abe Griffin MD 01/14/2025 09:50 AM EDT RP Head CT 01/14/25 08:30 IMPRESSION: No acute intracranial abnormality. No fracture seen. Electronically signed by: Chidi Rodriguez MD 01/17/2025 01:08 PM EDT RP Hip/Pelvis X-Ray 01/14/25 09:10 IMPRESSION: No acute fracture or dislocation. Electronically signed by: Abe Griffin MD 01/14/2025 10:35 AM EDT RP Medications Medications Current Medications Acetaminophen (Acetaminophen 325 Mg Tablet) 650 mg PO Q6H PRN PRN Reason: pain scale (1-10) Benztropine Mesylate (Benztropine Mesylate 1 Mg Tablet) 1 mg PO BEDTIME PRN PRN Reason: Extrapyramidal Effects Diazepam (Diazepam 10 Mg/2 Ml Cartridge) 5 mg IM TID PRN PRN Reason: PO refusal. HOLD FOR SEDATION Last Admin: 12/21/24 10:22 Dose: 5 mg Diazepam (Diazepam 2 Mg Tablet) 4 mg PO TID DESIRAE Last Admin: 02/27/25 08:17 Dose: 4 mg Empagliflozin (Empagliflozin 10 Mg Tablet) 10 mg PO DAILY DESIRAE Last Admin: 02/27/25 08:17 Dose: 10 mg Lisinopril (Lisinopril 20 Mg Tablet) 20 mg PO DAILY DESIRAE; Protocol Last Admin: 02/27/25 08:17 Dose: 20 mg Magnesium Hydroxide (Milk Of Magnesia 30 Ml Oral.Susp) 30 ml PO DAILY PRN PRN Reason: Constipation Last Admin: 02/04/25 14:59 Dose: 30 ml Metformin HCl (Metformin Hcl Er 500 Mg Tab.Er.24h) 1,000 mg PO DAILY [facility] Last Admin: 02/27/25 08:17 Dose: 1,000 mg Mirtazapine (Mirtazapine 30 Mg Tablet) 30 mg PO BEDTIME DESIRAE Last Admin: 02/26/25 19:22 Dose: 30 mg Nicotine Polacrilex (Nicotine Polacrilex 2 Mg Gum) 4 mg BUCCAL Q2H PRN PRN Reason: Nicotine Cravings Olanzapine (Olanzapine 10 Mg Tablet) 20 mg PO BEDTIME DESIRAE Last Admin: 02/26/25 19:23 Dose: 20 mg Olanzapine (Olanzapine 10 Mg Vial) 10 mg IM BID PRN PRN Reason: PO refusal Last Admin: 12/21/24 10:22 Dose: 10 mg Olanzapine (Olanzapine Odt 10 Mg Tab.Rapdis) 10 mg TRANSLINGU BID PRN PRN Reason: agitation Last Admin: 01/14/25 12:16 Dose: 10 mg Oxcarbazepine (Oxcarbazepine 300 Mg Tablet) 300 mg PO BEDTIME DESIRAE Last Admin: 02/26/25 19:23 Dose: 300 mg Primidone (Primidone 50 Mg Tablet) 25 mg PO BID DESIRAE Last Admin: 02/27/25 08:17 Dose: 25 mg Sertraline HCl (Sertraline Hcl 100 Mg Tablet) 100 mg PO BEDTIME DESIRAE Last Admin: 02/26/25 19:23 Dose: 100 mg Trazodone HCl (Trazodone Hcl 50 Mg Tablet) 50 mg PO BEDTIME PRN PRN Reason: Insomnia Allergies Allergies Allergy/AdvReac Type Severity Reaction Status Date / Time No Known Allergies Allergy Verified 10/14/24 18:14 [No Known Allergies*] Assessment & Plan Assessment & Plan (1) Mood disorder: Status: Acute Code(s): F39 - Unspecified mood [affective] disorder (2) Autism spectrum disorder: Status: Acute Code(s): F84.0 - Autistic disorder (3) Dementia: Status: Acute Code(s): F03.90 - Unspecified dementia, unspecified severity, without behavioral disturbance, psychotic disturbance, mood disturbance, and anxiety Plan Humza was admitted for safety and stabilization. His presentation is very similar to his last admission psychiatrically about a year ago and that is why his caregivers wanted to get ahead of things before he decompensated further. Current medications were reviewed and maintained. Contacts to be made with his treaters next week. 10/17: Continue current regimen and plans 10/19: Continue current tx plan and regime. 10/21: Memantine 5 mg daily- [facility], memory sx Abilify 2 mg daily-augment to antidepressants currently being used. 10/22 continue current tx plan -pt confused 10/23 Continue trials, regime and plan. 10/24: Continue regime and plan of care. 10/25 Abilify increased up to 5 mg. 10/26 keep on same treatment 10/27/24 continues with many complaints, no clear insight into self- 10/28 continue same treatment 10/29 increase Namenda to 5 mg p.o. b.i.d. and change Depakote to Depakene. Depakote level on 13/02 as per blood work of yesterday 10/30/24 - [facility] [employer] olanzapine = continue depakene as he did take 5 capsules this am- prn olanzapine given - this afternoon for behaviors on unit- 10/31/24 wrote for liquid depakote option if refuses capsules, also got prn olanzapine for throwing self on floor 11/01 keep same treatment 11/02 increase Zyprexa to 20 mg p.o. q.h.s. 11/03 keep same treatment. 11/04 discontinue Depakote and start Trileptal 300 mg p.o. b.i.d.. Her healthcare proxy will bring a copy of that we are going to invoke it 11/06 increase olanzapine to 20mg po qhs and 10mg po daily. 11/07 continue tx. 12/04 continue tx. 12/05: no changes 12/06 continue tx. 12/12: continue plan of care 12/13: continue tx 12/19 continue current tx plan 12/25: appearing sedated, more of a falls risk, poorer ability to do ADLs. decrease trileptal dosing from 600 BID to 300 BID for now. 12/26: less sedated than yesterday, continue current mgmt, including 1:1, until attending can see pt in the morning. 12/30: continues less sedated. minimally interactive. continue current mgmt. 12/31: per HCP, not at baseline, over-sedated. begin valium taper. decrease valium 5 TID to 4 TID for now. per HCP and SW, HCP has been affirmed in court. IM back-up orders in place and to be enforced by nursing staff. no aggressive or agitated behaviors. 01/02: Continue current regimen and plans Plan 1. Continue with olanzapine 10 mg p.o. q.a.m. and 20 mg p.o. q.h.s., he refused p.o. he received olanzapine IM. 2. Continue with Valium 5 mg p.o. t.i.d. if he refuses he will get Valium IM. 3. We will encourage compliance. The patient had been noncompliant with sertraline, he remains dysphoric. 4. The patient has a healthcare proxy who was affirmed by court, and they want us to medicate him even if the patient does not want to be compliant. 5. At this moment the patient is slightly over-sedated with EPS but we will keep the same dose of antipsychotics since his violence has improved. 01/03/25 Continue plan of care Reassess treatment plan which includes IM medication patient has been much less aggressive than he has in the past Unclear discharge plan at this point 01/04/2025 Patient taking Valium and olanzapine regularly has IM prescribed if refuses intermittently taking medication for diabetes hypertension 01/05/25 Cont medicationhas been stabilizing try and d/c meds that are not esential simplify regimen 01/06/25 stop namenda monitor sugar / bp encourage med acceptance cont valium olanzapine 01/08/2025 Continue olanzapine Valium metformin try and taper and simplify medication as tolerated discharge planning monitor response to change in medication 01/09/25 Try and simplify med regimen d/c planning 01/11/2025 Patient generally more cooperative not agitated generally monitor blood sugar and blood pressure intermittently refuses some doses of metformin 01/12/25 Pt seen later in day seemed stable flat some balance problems noted lowwer trileptal and primidone ck ortho vs dailypt consult for balance 01/13/2025 Patient improving less reactive has not been aggressive more cooperative with treatment and medication. Discharge planning 01/14: fell this morning, per head/c-spine CT and pelvic XR, no osseus injuries. pt appears as at recent mental status. no complaints or requests other than for wheelchair. pt will have 1:1 for ambulation for now. continue current psychopharm mgmt. 01/15: Continue current management and treatment plan. 01/16: continue current management and treatment plan. 01/17 keep same treatment. 01/18 keep same treatment 01/19 keep same treatment 01/20 keep same treatment 01/21 keep same treatment 01/22: calm, cooperative, flat. no questions or complaints. stable presentation. continue current mgmt. 01/23: no change, continue current mgmt. 01/24: stable. continue current mgmt. reps from [facility] coming to [facility] pt for placement today. 01/25/2025 Patient in behavioral control vital signs stable generally accepting treatment continue discharge planning 01/26/2025 Patient generally cooperative seen in the milieu no aggression suicidality or her problematic behavior. Discharge planning strongly urged transition 01/27/2025 Patient continues to be generally stabilizing not combative agitated or threatening has remained generally calm seems safe for discharge planning much improved over time 01/28/2025 Patient seen psychiatric follow-up patient has significantly improved over the months he is calm cooperative seen watching television somewhat social at times not aggressive or combative 01/29 Continue current regime/plan. Improved. 01/31: stably improved. awaiting placement. continue current mgmt. 02/01: stable. continue current mgmt. awaiting placement. 02/02: no change in presentation or plan. 02/03: stable. continue current mgmt. 02/04/2025 Patient seen psychiatric follow-up no current behavioral difficulties no current ability to place patient in a less restricted setting 02/06: no change in presentation. continue current mgmt. 02/07/25 cont d/c planning pt has been tentatively accepted no less restrictive setting currently available 02/08/2025 Continue discharge planning patient tentatively accepted no funding source available at this time no less restrictive setting available 02/14 Patient tells press writer he is hanging in there he says it can be hard sometimes to do so but it is overall going okay. Patient took all medications today; nurse however reports that recently he seemed a little suspicious, on the verge of picking over medications. -vitals WNL -no new labs 02/15/2025 Patient states he is doing okay understands he is waiting for some form of placement. Accepting treatment vital signs unremarkable continue plan of care discharge plan 02/16/2025 No major changes patient has been waiting for placement no less restrictive setting available at this time continues to be cooperative with care no significant behavioral difficulties 02/18/2025 Vital signs stable no need to change current regimen continue discharge planning. No less restrictive setting presently available for discharge 02/19 continue treatment plan 02/22 continue tx. 5/1: no change in presentation. continue current mgmt. 5/3: no change in presentation. continue current mgmt. 5/4: drawn and withdrawn. c/o diplopia both with and without corrective lenses. continue current mgmt. Reason for continued inpatient stay Substantial Risk for: inability to function Time Spent With Patient Time: Total time managing care of this patient today ____ minutes.
[2025-02-27] MEDS: Sertraline HCL 100 MG TABLET PO (20:01)
[2025-02-27] MEDS: OXcarbazepine 300 MG TABLET PO (20:01)
[2025-02-27] MEDS: OLANZapine 10 MG TABLET 20 MG PO (20:01)
[2025-02-27] MEDS: Mirtazapine 30 MG TABLET PO (20:03)
[2025-02-27 20:24] VITALS: BP 101/62; PULSE 74; TEMP 37; O2SAT 97
[2025-02-28 08:00] VITALS: BP 114/63; PULSE 76; RESP 18; TEMP 36.7; O2SAT 99
[2025-02-28 09:00] VITALS: BP 114/63
[2025-02-28] MEDS: diazePAM 2 MG TABLET 4 MG PO ×3 (09:00→19:59)
[2025-02-28] MEDS: Primidone 50 MG TABLET 25 MG PO ×2 (09:00→19:59)
[2025-02-28] MEDS: Empagliflozin 10 MG TABLET PO (09:00)
[2025-02-28] MEDS: lisinopriL 20 MG TABLET PO (09:00)
[2025-02-28] MEDS: metFORMIN HCl ER 500 MG TAB.ER.24H 1000 MG PO (09:00)
[2025-02-28 19:56] VITALS: BP 104/55; PULSE 82; RESP 16; TEMP 36.2; O2SAT 97
[2025-02-28] MEDS: OXcarbazepine 300 MG TABLET PO (19:58)
[2025-02-28] MEDS: OLANZapine 10 MG TABLET 20 MG PO (19:58)
[2025-02-28] MEDS: Mirtazapine 30 MG TABLET PO (19:59)
[2025-02-28] MEDS: Sertraline HCL 100 MG TABLET PO (19:59)
--- NOTE | 2025-02-28 22:31 | HO.PSYCHPN ---
Subjective Subjective Date of Service: 02/28/25 Reason For Visit: Anxiety, mood disorder, ASD Interim History: Patient's case reviewed in treatment planning chart reviewed patient seen. Patient continues with some any but good behavioral control cooperative Mental Status Exam Mental Status Exam Patient Appearance: Appropriate Patient Orientation: Person and Situation Level of Consciousness: Awake and Appropriate Patient Behavior: Guarded and Passive Mood Description: Withdrawn ( ok ) Affect Description: Withdrawn Patient Cognition Impaired: Yes Ability to Follow Directions: Fair Speech Pattern: Clear Hallucinations: None Delusions: Not Present Thought Process: Distracted and Slowed Thinking Thought Content: positive for [place] and positive for Poverty of Content Judgement: Poor Diagnostics Vital Signs (24Hr): Vital Signs - 24 hr 02/28/25 08:00 02/28/25 09:00 02/28/25 19:56 Temperature 98.1 F 97.2 F Pulse Rate 76 82 Respiratory Rate 18 16 Blood Pressure 114/63 114/63 104/55 L Pulse Oximetry 99 97 Oxygen Delivery Method Room Air Room Air BMI result Body Mass Index 26.5 Labs 10/28/24 09:10 02/25/25 07:34 Imaging Radiology Impressions: ITS Impressions Hip X-Ray 01/12/25 13:30 IMPRESSION: No evidence of fracture of the bilateral hips. Electronically signed by: Kaushal Soni MD 01/12/2025 01:54 PM EDT RP Cervical Spine CT 01/14/25 07:59 IMPRESSION: Multilevel cervical spondylosis without acute fracture or trauma-related listhesis. Fleischner guidelines were followed. Electronically signed by: Abe Griffin MD 01/14/2025 09:50 AM EDT RP Head CT 01/14/25 08:30 IMPRESSION: No acute intracranial abnormality. No fracture seen. Electronically signed by: Chidi Rodriguez MD 01/17/2025 01:08 PM EDT RP Hip/Pelvis X-Ray 01/14/25 09:10 IMPRESSION: No acute fracture or dislocation. Electronically signed by: Abe Griffin MD 01/14/2025 10:35 AM EDT RP Medications Medications Current Medications Acetaminophen (Acetaminophen 325 Mg Tablet) 650 mg PO Q6H PRN PRN Reason: pain scale (1-10) Benztropine Mesylate (Benztropine Mesylate 1 Mg Tablet) 1 mg PO BEDTIME PRN PRN Reason: Extrapyramidal Effects Diazepam (Diazepam 10 Mg/2 Ml Cartridge) 5 mg IM TID PRN PRN Reason: PO refusal. HOLD FOR SEDATION Last Admin: 12/21/24 10:22 Dose: 5 mg Diazepam (Diazepam 2 Mg Tablet) 4 mg PO TID DESIRAE Last Admin: 02/28/25 19:59 Dose: 4 mg Empagliflozin (Empagliflozin 10 Mg Tablet) 10 mg PO DAILY DESIRAE Last Admin: 02/28/25 09:00 Dose: 10 mg Lisinopril (Lisinopril 20 Mg Tablet) 20 mg PO DAILY DESIRAE; Protocol Last Admin: 02/28/25 09:00 Dose: 20 mg Magnesium Hydroxide (Milk Of Magnesia 30 Ml Oral.Susp) 30 ml PO DAILY PRN PRN Reason: Constipation Last Admin: 02/04/25 14:59 Dose: 30 ml Metformin HCl (Metformin Hcl Er 500 Mg Tab.Er.24h) 1,000 mg PO DAILY DESIRAE Last Admin: 02/28/25 09:00 Dose: 1,000 mg Mirtazapine (Mirtazapine 30 Mg Tablet) 30 mg PO BEDTIME DESIRAE Last Admin: 02/28/25 19:59 Dose: 30 mg Nicotine Polacrilex (Nicotine Polacrilex 2 Mg Gum) 4 mg BUCCAL Q2H PRN PRN Reason: Nicotine Cravings Olanzapine (Olanzapine 10 Mg Tablet) 20 mg PO BEDTIME DESIRAE Last Admin: 02/28/25 19:58 Dose: 20 mg Olanzapine (Olanzapine 10 Mg Vial) 10 mg IM BID PRN PRN Reason: PO refusal Last Admin: 12/21/24 10:22 Dose: 10 mg Olanzapine (Olanzapine Odt 10 Mg Tab.Rapdis) 10 mg TRANSLINGU BID PRN PRN Reason: agitation Last Admin: 01/14/25 12:16 Dose: 10 mg Oxcarbazepine (Oxcarbazepine 300 Mg Tablet) 300 mg PO BEDTIME DESIRAE Last Admin: 02/28/25 19:58 Dose: 300 mg Primidone (Primidone 50 Mg Tablet) 25 mg PO BID DESIRAE Last Admin: 02/28/25 19:59 Dose: 25 mg Sertraline HCl (Sertraline Hcl 100 Mg Tablet) 100 mg PO BEDTIME DESIRAE Last Admin: 02/28/25 19:59 Dose: 100 mg Trazodone HCl (Trazodone Hcl 50 Mg Tablet) 50 mg PO BEDTIME PRN PRN Reason: Insomnia Allergies Allergies Allergy/AdvReac Type Severity Reaction Status Date / Time No Known Allergies Allergy Verified 10/14/24 18:14 [No Known Allergies*] Assessment & Plan Assessment & Plan (1) Mood disorder: Status: Acute Code(s): F39 - Unspecified mood [affective] disorder (2) Autism spectrum disorder: Status: Acute Code(s): F84.0 - Autistic disorder (3) Dementia: Status: Acute Code(s): F03.90 - Unspecified dementia, unspecified severity, without behavioral disturbance, psychotic disturbance, mood disturbance, and anxiety Plan Humza was admitted for safety and stabilization. His presentation is very similar to his last admission psychiatrically about a year ago and that is why his caregivers wanted to get ahead of things before he decompensated further. Current medications were reviewed and maintained. Contacts to be made with his treaters next week. 10/17: Continue current regimen and plans 10/19: Continue current tx plan and regime. 10/21: Memantine 5 mg daily- MCI, memory sx Abilify 2 mg daily-augment to antidepressants currently being used. 10/22 continue current tx plan -pt confused 10/23 Continue trials, regime and plan. 10/24: Continue regime and plan of care. 10/25 Abilify increased up to 5 mg. 10/26 keep on same treatment 10/27/24 continues with many complaints, no clear insight into self- 10/28 continue same treatment 10/29 increase Namenda to 5 mg p.o. b.i.d. and change Depakote to Depakene. Depakote level on 13/02 as per blood work of yesterday 10/30/24 - pa abilify inc olanzapine = continue depakene as he did take 5 capsules this am- prn olanzapine given - this afternoon for behaviors on unit- 10/31/24 wrote for liquid depakote option if refuses capsules, also got prn olanzapine for throwing self on floor 11/01 keep same treatment 11/02 increase Zyprexa to 20 mg p.o. q.h.s. 11/03 keep same treatment. 11/04 discontinue Depakote and start Trileptal 300 mg p.o. b.i.d.. Her healthcare proxy will bring a copy of that we are going to invoke it 11/06 increase olanzapine to 20mg po qhs and 10mg po daily. 11/07 continue tx. 12/04 continue tx. 12/05: no changes 12/06 continue tx. 12/12: continue plan of care 12/13: continue tx 12/19 continue current tx plan 12/25: appearing sedated, more of a falls risk, poorer ability to do ADLs. decrease trileptal dosing from 600 BID to 300 BID for now. 12/26: less sedated than yesterday, continue current mgmt, including 1:1, until attending can see pt in the morning. 12/30: continues less sedated. minimally interactive. continue current mgmt. 12/31: per HCP, not at baseline, over-sedated. begin valium taper. decrease valium 5 TID to 4 TID for now. per HCP and SW, HCP has been affirmed in court. IM back-up orders in place and to be enforced by nursing staff. no aggressive or agitated behaviors. 01/02: Continue current regimen and plans Plan 1. Continue with olanzapine 10 mg p.o. q.a.m. and 20 mg p.o. q.h.s., he refused p.o. he received olanzapine IM. 2. Continue with Valium 5 mg p.o. t.i.d. if he refuses he will get Valium IM. 3. We will encourage compliance. The patient had been noncompliant with sertraline, he remains dysphoric. 4. The patient has a healthcare proxy who was affirmed by court, and they want us to medicate him even if the patient does not want to be compliant. 5. At this moment the patient is slightly over-sedated with EPS but we will keep the same dose of antipsychotics since his violence has improved. 01/03/25 Continue plan of care Reassess treatment plan which includes IM medication patient has been much less aggressive than he has in the past Unclear discharge plan at this point 01/04/2025 Patient taking Valium and olanzapine regularly has IM prescribed if refuses intermittently taking medication for diabetes hypertension 01/05/25 Cont medicationhas been stabilizing try and d/c meds that are not esential simplify regimen 01/06/25 stop namenda monitor sugar / bp encourage med acceptance cont valium olanzapine 01/08/2025 Continue olanzapine Valium metformin try and taper and simplify medication as tolerated discharge planning monitor response to change in medication 01/09/25 Try and simplify med regimen d/c planning 01/11/2025 Patient generally more cooperative not agitated generally monitor blood sugar and blood pressure intermittently refuses some doses of metformin 01/12/25 Pt seen later in day seemed stable flat some balance problems noted lowwer trileptal and primidone ck ortho vs dailypt consult for balance 01/13/2025 Patient improving less reactive has not been aggressive more cooperative with treatment and medication. Discharge planning 01/14: fell this morning, per head/c-spine CT and pelvic XR, no osseus injuries. pt appears as at recent mental status. no complaints or requests other than for wheelchair. pt will have 1:1 for ambulation for now. continue current psychopharm mgmt. 01/15: Continue current management and treatment plan. 01/16: continue current management and treatment plan. 01/17 keep same treatment. 01/18 keep same treatment 01/19 keep same treatment 01/20 keep same treatment 01/21 keep same treatment 01/22: calm, cooperative, flat. no questions or complaints. stable presentation. continue current mgmt. 01/23: no change, continue current mgmt. 01/24: stable. continue current mgmt. reps from [facility] coming to [facility] pt for placement today. 01/25/2025 Patient in behavioral control vital signs stable generally accepting treatment continue discharge planning 01/26/2025 Patient generally cooperative seen in the milieu no aggression suicidality or her problematic behavior. Discharge planning strongly urged transition 01/27/2025 Patient continues to be generally stabilizing not combative agitated or threatening has remained generally calm seems safe for discharge planning much improved over time 01/28/2025 Patient seen psychiatric follow-up patient has significantly improved over the months he is calm cooperative seen watching television somewhat social at times not aggressive or combative 01/29 Continue current regime/plan. Improved. 01/31: stably improved. awaiting placement. continue current mgmt. 02/01: stable. continue current mgmt. awaiting placement. 02/02: no change in presentation or plan. 02/03: stable. continue current mgmt. 02/04/2025 Patient seen psychiatric follow-up no current behavioral difficulties no current ability to place patient in a less restricted setting 02/06: no change in presentation. continue current mgmt. 02/07/25 cont d/c planning pt has been tentatively accepted no less restrictive setting currently available 02/08/2025 Continue discharge planning patient tentatively accepted no funding source available at this time no less restrictive setting available 02/14 Patient tells business writer he is hanging in there he says it can be hard sometimes to do so but it is overall going okay. Patient took all medications today; nurse however reports that recently he seemed a little suspicious, on the verge of picking over medications. -vitals WNL -no new labs 02/15/2025 Patient states he is doing okay understands he is waiting for some form of placement. Accepting treatment vital signs unremarkable continue plan of care discharge plan 02/16/2025 No major changes patient has been waiting for placement no less restrictive setting available at this time continues to be cooperative with care no significant behavioral difficulties 02/18/2025 Vital signs stable no need to change current regimen continue discharge planning. No less restrictive setting presently available for discharge 02/19 continue treatment plan 02/22 continue tx. 5/1: no change in presentation. continue current mgmt. 5/3: no change in presentation. continue current mgmt. 5/4: drawn and withdrawn. c/o diplopia both with and without corrective lenses. continue current mgmt. 02/28/2025 Patient calm some anxiety noted future oriented continue plan of care Reason for continued inpatient stay Substantial Risk for: inability to function and rapid decompensation Time Spent With Patient Time: Total time managing care of this patient today ____ minutes.
--- NOTE | 2025-02-28 23:12 | HO.PSYCHPN ---
Subjective Subjective Date of Service: 02/20/25 Reason For Visit: Anxiety, mood disorder, ASD Interim History: late entry note for pt seen 02/20 pt says he's ok no change in presentation Mental Status Exam Mental Status Exam Patient Appearance: Appropriate Patient Orientation: Person and Situation Level of Consciousness: Awake and Appropriate Patient Behavior: Guarded and Passive Mood Description: Withdrawn ( ok ) Affect Description: Withdrawn Patient Cognition Impaired: Yes Ability to Follow Directions: Fair Speech Pattern: Clear Hallucinations: None Delusions: Not Present Thought Process: Distracted and Slowed Thinking Thought Content: positive for [place] and positive for Poverty of Content Judgement: Poor Diagnostics Vital Signs (24Hr): Vital Signs - 24 hr 02/28/25 08:00 02/28/25 09:00 02/28/25 19:56 Temperature 98.1 F 97.2 F Pulse Rate 76 82 Respiratory Rate 18 16 Blood Pressure 114/63 114/63 104/55 L Pulse Oximetry 99 97 Oxygen Delivery Method Room Air Room Air BMI result Body Mass Index 26.5 Labs 10/28/24 09:10 02/25/25 07:34 Imaging Radiology Impressions: ITS Impressions Hip X-Ray 01/12/25 13:30 IMPRESSION: No evidence of fracture of the bilateral hips. Electronically signed by: Kaushal Soni MD 01/12/2025 01:54 PM EDT RP Cervical Spine CT 01/14/25 07:59 IMPRESSION: Multilevel cervical spondylosis without acute fracture or trauma-related listhesis. Fleischner guidelines were followed. Electronically signed by: Abe Griffin MD 01/14/2025 09:50 AM EDT RP Head CT 01/14/25 08:30 IMPRESSION: No acute intracranial abnormality. No fracture seen. Electronically signed by: Chidi Rodriguez MD 01/17/2025 01:08 PM EDT RP Hip/Pelvis X-Ray 01/14/25 09:10 IMPRESSION: No acute fracture or dislocation. Electronically signed by: Abe Griffin MD 01/14/2025 10:35 AM EDT RP Medications Medications Current Medications Acetaminophen (Acetaminophen 325 Mg Tablet) 650 mg PO Q6H PRN PRN Reason: pain scale (1-10) Benztropine Mesylate (Benztropine Mesylate 1 Mg Tablet) 1 mg PO BEDTIME PRN PRN Reason: Extrapyramidal Effects Diazepam (Diazepam 10 Mg/2 Ml Cartridge) 5 mg IM TID PRN PRN Reason: PO refusal. HOLD FOR SEDATION Last Admin: 12/21/24 10:22 Dose: 5 mg Diazepam (Diazepam 2 Mg Tablet) 4 mg PO TID DESIRAE Last Admin: 02/28/25 19:59 Dose: 4 mg Empagliflozin (Empagliflozin 10 Mg Tablet) 10 mg PO DAILY DESIRAE Last Admin: 02/28/25 09:00 Dose: 10 mg Lisinopril (Lisinopril 20 Mg Tablet) 20 mg PO DAILY DESIRAE; Protocol Last Admin: 02/28/25 09:00 Dose: 20 mg Magnesium Hydroxide (Milk Of Magnesia 30 Ml Oral.Susp) 30 ml PO DAILY PRN PRN Reason: Constipation Last Admin: 02/04/25 14:59 Dose: 30 ml Metformin HCl (Metformin Hcl Er 500 Mg Tab.Er.24h) 1,000 mg PO DAILY DESIRAE Last Admin: 02/28/25 09:00 Dose: 1,000 mg Mirtazapine (Mirtazapine 30 Mg Tablet) 30 mg PO BEDTIME DESIRAE Last Admin: 02/28/25 19:59 Dose: 30 mg Nicotine Polacrilex (Nicotine Polacrilex 2 Mg Gum) 4 mg BUCCAL Q2H PRN PRN Reason: Nicotine Cravings Olanzapine (Olanzapine 10 Mg Tablet) 20 mg PO BEDTIME DESIRAE Last Admin: 02/28/25 19:58 Dose: 20 mg Olanzapine (Olanzapine 10 Mg Vial) 10 mg IM BID PRN PRN Reason: PO refusal Last Admin: 12/21/24 10:22 Dose: 10 mg Olanzapine (Olanzapine Odt 10 Mg Tab.Rapdis) 10 mg TRANSLINGU BID PRN PRN Reason: agitation Last Admin: 01/14/25 12:16 Dose: 10 mg Oxcarbazepine (Oxcarbazepine 300 Mg Tablet) 300 mg PO BEDTIME DESIRAE Last Admin: 02/28/25 19:58 Dose: 300 mg Primidone (Primidone 50 Mg Tablet) 25 mg PO BID DESIRAE Last Admin: 02/28/25 19:59 Dose: 25 mg Sertraline HCl (Sertraline Hcl 100 Mg Tablet) 100 mg PO BEDTIME DESIRAE Last Admin: 02/28/25 19:59 Dose: 100 mg Trazodone HCl (Trazodone Hcl 50 Mg Tablet) 50 mg PO BEDTIME PRN PRN Reason: Insomnia Allergies Allergies Allergy/AdvReac Type Severity Reaction Status Date / Time No Known Allergies Allergy Verified 10/14/24 18:14 [No Known Allergies*] Assessment & Plan Assessment & Plan (1) Mood disorder: Status: Acute Code(s): F39 - Unspecified mood [affective] disorder (2) Autism spectrum disorder: Status: Acute Code(s): F84.0 - Autistic disorder (3) Dementia: Status: Acute Code(s): F03.90 - Unspecified dementia, unspecified severity, without behavioral disturbance, psychotic disturbance, mood disturbance, and anxiety Plan Humza was admitted for safety and stabilization. His presentation is very similar to his last admission psychiatrically about a year ago and that is why his caregivers wanted to get ahead of things before he decompensated further. Current medications were reviewed and maintained. Contacts to be made with his treaters next week. 10/17: Continue current regimen and plans 10/19: Continue current tx plan and regime. 10/21: Memantine 5 mg daily- MCI, memory sx Abilify 2 mg daily-augment to antidepressants currently being used. 10/22 continue current tx plan -pt confused 10/23 Continue trials, regime and plan. 10/24: Continue regime and plan of care. 10/25 Abilify increased up to 5 mg. 10/26 keep on same treatment 10/27/24 continues with many complaints, no clear insight into self- 10/28 continue same treatment 10/29 increase Namenda to 5 mg p.o. b.i.d. and change Depakote to Depakene. Depakote level on 13/02 as per blood work of yesterday 10/30/24 - dc abilify inc olanzapine = continue depakene as he did take 5 capsules this am- prn olanzapine given - this afternoon for behaviors on unit- 10/31/24 wrote for liquid depakote option if refuses capsules, also got prn olanzapine for throwing self on floor 11/01 keep same treatment 11/02 increase Zyprexa to 20 mg p.o. q.h.s. 11/03 keep same treatment. 11/04 discontinue Depakote and start Trileptal 300 mg p.o. b.i.d.. Her healthcare proxy will bring a copy of that we are going to invoke it 11/06 increase olanzapine to 20mg po qhs and 10mg po daily. 11/07 continue tx. 12/04 continue tx. 12/05: no changes 12/06 continue tx. 12/12: continue plan of care 12/13: continue tx 12/19 continue current tx plan 12/25: appearing sedated, more of a falls risk, poorer ability to do ADLs. decrease trileptal dosing from 600 BID to 300 BID for now. 12/26: less sedated than yesterday, continue current mgmt, including 1:1, until attending can see pt in the morning. 12/30: continues less sedated. minimally interactive. continue current mgmt. 12/31: per HCP, not at baseline, over-sedated. begin valium taper. decrease valium 5 TID to 4 TID for now. per HCP and SW, HCP has been affirmed in court. IM back-up orders in place and to be enforced by nursing staff. no aggressive or agitated behaviors. 01/02: Continue current regimen and plans Plan 1. Continue with olanzapine 10 mg p.o. q.a.m. and 20 mg p.o. q.h.s., he refused p.o. he received olanzapine IM. 2. Continue with Valium 5 mg p.o. t.i.d. if he refuses he will get Valium IM. 3. We will encourage compliance. The patient had been noncompliant with sertraline, he remains dysphoric. 4. The patient has a healthcare proxy who was affirmed by court, and they want us to medicate him even if the patient does not want to be compliant. 5. At this moment the patient is slightly over-sedated with EPS but we will keep the same dose of antipsychotics since his violence has improved. 01/03/25 Continue plan of care Reassess treatment plan which includes IM medication patient has been much less aggressive than he has in the past Unclear discharge plan at this point 01/04/2025 Patient taking Valium and olanzapine regularly has IM prescribed if refuses intermittently taking medication for diabetes hypertension 01/05/25 Cont medicationhas been stabilizing try and d/c meds that are not esential simplify regimen 01/06/25 stop namenda monitor sugar / bp encourage med acceptance cont valium olanzapine 01/08/2025 Continue olanzapine Valium metformin try and taper and simplify medication as tolerated discharge planning monitor response to change in medication 01/09/25 Try and simplify med regimen d/c planning 01/11/2025 Patient generally more cooperative not agitated generally monitor blood sugar and blood pressure intermittently refuses some doses of metformin 01/12/25 Pt seen later in day seemed stable flat some balance problems noted lowwer trileptal and primidone ck ortho vs dailypt consult for balance 01/13/2025 Patient improving less reactive has not been aggressive more cooperative with treatment and medication. Discharge planning 01/14: fell this morning, per head/c-spine CT and pelvic XR, no osseus injuries. pt appears as at recent mental status. no complaints or requests other than for wheelchair. pt will have 1:1 for ambulation for now. continue current psychopharm mgmt. 01/15: Continue current management and treatment plan. 01/16: continue current management and treatment plan. 01/17 keep same treatment. 01/18 keep same treatment 01/19 keep same treatment 01/20 keep same treatment 01/21 keep same treatment 01/22: calm, cooperative, flat. no questions or complaints. stable presentation. continue current mgmt. 01/23: no change, continue current mgmt. 01/24: stable. continue current mgmt. reps from [facility] coming to [facility] pt for placement today. 01/25/2025 Patient in behavioral control vital signs stable generally accepting treatment continue discharge planning 01/26/2025 Patient generally cooperative seen in the milieu no aggression suicidality or her problematic behavior. Discharge planning strongly urged transition 01/27/2025 Patient continues to be generally stabilizing not combative agitated or threatening has remained generally calm seems safe for discharge planning much improved over time 01/28/2025 Patient seen psychiatric follow-up patient has significantly improved over the months he is calm cooperative seen watching television somewhat social at times not aggressive or combative 01/29 Continue current regime/plan. Improved. 01/31: stably improved. awaiting placement. continue current mgmt. 02/01: stable. continue current mgmt. awaiting placement. 02/02: no change in presentation or plan. 02/03: stable. continue current mgmt. 02/04/2025 Patient seen psychiatric follow-up no current behavioral difficulties no current ability to place patient in a less restricted setting 02/06: no change in presentation. continue current mgmt. 02/07/25 cont d/c planning pt has been tentatively accepted no less restrictive setting currently available 02/08/2025 Continue discharge planning patient tentatively accepted no funding source available at this time no less restrictive setting available 02/14 Patient tells documentation writer he is hanging in there he says it can be hard sometimes to do so but it is overall going okay. Patient took all medications today; nurse however reports that recently he seemed a little suspicious, on the verge of picking over medications. -vitals WNL -no new labs 02/15/2025 Patient states he is doing okay understands he is waiting for some form of placement. Accepting treatment vital signs unremarkable continue plan of care discharge plan 02/16/2025 No major changes patient has been waiting for placement no less restrictive setting available at this time continues to be cooperative with care no significant behavioral difficulties 02/18/2025 Vital signs stable no need to change current regimen continue discharge planning. No less restrictive setting presently available for discharge 02/19 continue treatment plan 02/22 continue tx. 5/1: no change in presentation. continue current mgmt. 5/3: no change in presentation. continue current mgmt. 5/4: drawn and withdrawn. c/o diplopia both with and without corrective lenses. continue current mgmt. Reason for continued inpatient stay Substantial Risk for: inability to function Time Spent With Patient Time: Total time managing care of this patient today ____ minutes.
[2025-03-01 08:00] VITALS: BP 102/68; PULSE 76; RESP 18; TEMP 36.4; O2SAT 97
[2025-03-01] MEDS: diazePAM 2 MG TABLET 4 MG PO ×2 (08:15→14:46)
[2025-03-01] MEDS: metFORMIN HCl ER 500 MG TAB.ER.24H 1000 MG PO (08:15)
[2025-03-01] MEDS: Primidone 50 MG TABLET 25 MG PO ×2 (08:16→20:07)
[2025-03-01] MEDS: lisinopriL 20 MG TABLET PO (08:16)
[2025-03-01] MEDS: Empagliflozin 10 MG TABLET PO (08:16)
--- NOTE | 2025-03-01 15:41 | P.PNPSI_ITS ---
Subjective Subjective Date of Service: 03/01/25 Reason For Visit: Anxiety, mood disorder, ASD Interim History: seen with visitor. states he is feeling a bit down, it has to do with his glasses. he'd like new ones. c/o anxiety as well. amenable to trial of slightly higher dose of valium. per staff, pleasant. denies psych Sx in a.m. c/o 5/10 anx/dep in the afternoon. slept 8 hours. Mental Status Exam Mental Status Exam Patient Appearance: Appropriate Patient Orientation: Person and Situation Level of Consciousness: Awake and Appropriate Patient Behavior: Guarded and Passive Mood Description: Withdrawn ( ok ) Affect Description: Withdrawn Patient Cognition Impaired: Yes Ability to Follow Directions: Fair Speech Pattern: Clear Hallucinations: None Delusions: Not Present Thought Process: Distracted and Slowed Thinking Thought Content: positive for [place] and positive for Poverty of Content Judgement: Poor Diagnostics Vital Signs (24Hr): Vital Signs - 24 hr 02/28/25 19:56 03/01/25 08:00 Temperature 97.2 F 97.5 F Pulse Rate 82 76 Respiratory Rate 16 18 Blood Pressure 104/55 L 102/68 Pulse Oximetry 97 97 Oxygen Delivery Method Room Air Room Air BMI result Body Mass Index 26.5 Labs 10/28/24 09:10 02/25/25 07:34 Imaging Radiology Impressions: ITS Impressions Hip X-Ray 01/12/25 13:30 IMPRESSION: No evidence of fracture of the bilateral hips. Electronically signed by: Kaushal Soni MD 01/12/2025 01:54 PM EDT RP Cervical Spine CT 01/14/25 07:59 IMPRESSION: Multilevel cervical spondylosis without acute fracture or trauma-related listhesis. Fleischner guidelines were followed. Electronically signed by: Abe Griffin MD 01/14/2025 09:50 AM EDT RP Head CT 01/14/25 08:30 IMPRESSION: No acute intracranial abnormality. No fracture seen. Electronically signed by: Chidi Rodriguez MD 01/17/2025 01:08 PM EDT RP Hip/Pelvis X-Ray 01/14/25 09:10 IMPRESSION: No acute fracture or dislocation. Electronically signed by: Abe Griffin MD 01/14/2025 10:35 AM EDT Medications Medications Current Medications Acetaminophen (Acetaminophen 325 Mg Tablet) 650 mg PO Q6H PRN PRN Reason: pain scale (1-10) Benztropine Mesylate (Benztropine Mesylate 1 Mg Tablet) 1 mg PO BEDTIME PRN PRN Reason: Extrapyramidal Effects Diazepam (Diazepam 10 Mg/2 Ml Cartridge) 5 mg IM TID PRN PRN Reason: PO refusal. HOLD FOR SEDATION Last Admin: 12/21/24 10:22 Dose: 5 mg Diazepam (Diazepam 5 Mg Tablet) 5 mg PO TID DESIRAE Empagliflozin (Empagliflozin 10 Mg Tablet) 10 mg PO DAILY DESIRAE Last Admin: 03/01/25 08:16 Dose: 10 mg Lisinopril (Lisinopril 20 Mg Tablet) 20 mg PO DAILY DESIRAE; Protocol Last Admin: 03/01/25 08:16 Dose: 20 mg Magnesium Hydroxide (Milk Of Magnesia 30 Ml Oral.Susp) 30 ml PO DAILY PRN PRN Reason: Constipation Last Admin: 02/04/25 14:59 Dose: 30 ml Metformin HCl (Metformin Hcl Er 500 Mg Tab.Er.24h) 1,000 mg PO DAILY DESIRAE Last Admin: 03/01/25 08:15 Dose: 1,000 mg Mirtazapine (Mirtazapine 30 Mg Tablet) 30 mg PO BEDTIME DESIRAE Last Admin: 02/28/25 19:59 Dose: 30 mg Nicotine Polacrilex (Nicotine Polacrilex 2 Mg Gum) 4 mg BUCCAL Q2H PRN PRN Reason: Nicotine Cravings Olanzapine (Olanzapine 10 Mg Tablet) 20 mg PO BEDTIME DESIRAE Last Admin: 02/28/25 19:58 Dose: 20 mg Olanzapine (Olanzapine 10 Mg Vial) 10 mg IM BID PRN PRN Reason: PO refusal Last Admin: 12/21/24 10:22 Dose: 10 mg Olanzapine (Olanzapine Odt 10 Mg Tab.Rapdis) 10 mg TRANSLINGU BID PRN PRN Reason: agitation Last Admin: 01/14/25 12:16 Dose: 10 mg Oxcarbazepine (Oxcarbazepine 300 Mg Tablet) 300 mg PO BEDTIME DESIRAE Last Admin: 02/28/25 19:58 Dose: 300 mg Primidone (Primidone 50 Mg Tablet) 25 mg PO BID DESIRAE Last Admin: 03/01/25 08:16 Dose: 25 mg Sertraline HCl (Sertraline Hcl 100 Mg Tablet) 100 mg PO BEDTIME DESIRAE Last Admin: 02/28/25 19:59 Dose: 100 mg Trazodone HCl (Trazodone Hcl 50 Mg Tablet) 50 mg PO BEDTIME PRN PRN Reason: Insomnia Allergies Allergies Allergy/AdvReac Type Severity Reaction Status Date / Time No Known Allergies Allergy Verified 10/14/24 18:14 [No Known Allergies*] Assessment & Plan Assessment & Plan (1) Mood disorder: Status: Acute Code(s): F39 - Unspecified mood [affective] disorder (2) Autism spectrum disorder: Status: Acute Code(s): F84.0 - Autistic disorder (3) Dementia: Status: Acute Code(s): F03.90 - Unspecified dementia, unspecified severity, without behavioral disturbance, psychotic disturbance, mood disturbance, and anxiety Plan Humza was admitted for safety and stabilization. His presentation is very similar to his last admission psychiatrically about a year ago and that is why his caregivers wanted to get ahead of things before he decompensated further. Current medications were reviewed and maintained. Contacts to be made with his treaters next week. 10/17: Continue current regimen and plans 10/19: Continue current tx plan and regime. 10/21: Memantine 5 mg daily- [facility], memory sx Abilify 2 mg daily-augment to antidepressants currently being used. 10/22 continue current tx plan -pt confused 10/23 Continue trials, regime and plan. 10/24: Continue regime and plan of care. 10/25 Abilify increased up to 5 mg. 10/26 keep on same treatment 10/27/24 continues with many complaints, no clear insight into self- 10/28 continue same treatment 10/29 increase Namenda to 5 mg p.o. b.i.d. and change Depakote to Depakene. Depakote level on 13/02 as per blood work of yesterday 10/30/24 - [facility] olanzapine = continue depakene as he did take 5 capsules this am- prn olanzapine given - this afternoon for behaviors on unit- 10/31/24 wrote for liquid depakote option if refuses capsules, also got prn olanzapine for throwing self on floor 11/01 keep same treatment 11/02 increase Zyprexa to 20 mg p.o. q.h.s. 11/03 keep same treatment. 11/04 discontinue Depakote and start Trileptal 300 mg p.o. b.i.d.. Her healthcare proxy will bring a copy of that we are going to invoke it 11/06 increase olanzapine to 20mg po qhs and 10mg po daily. 11/07 continue tx. 12/04 continue tx. 12/05: no changes 12/06 continue tx. 12/12: continue plan of care 12/13: continue tx 12/19 continue current tx plan 12/25: appearing sedated, more of a falls risk, poorer ability to do ADLs. decrease trileptal dosing from 600 BID to 300 BID for now. 12/26: less sedated than yesterday, continue current mgmt, including 1:1, until attending can see pt in the morning. 12/30: continues less sedated. minimally interactive. continue current mgmt. 12/31: per HCP, not at baseline, over-sedated. begin valium taper. decrease valium 5 TID to 4 TID for now. per HCP and SW, HCP has been affirmed in court. IM back-up orders in place and to be enforced by nursing staff. no aggressive or agitated behaviors. 01/02: Continue current regimen and plans Plan 1. Continue with olanzapine 10 mg p.o. q.a.m. and 20 mg p.o. q.h.s., he refused p.o. he received olanzapine IM. 2. Continue with Valium 5 mg p.o. t.i.d. if he refuses he will get Valium IM. 3. We will encourage compliance. The patient had been noncompliant with sertraline, he remains dysphoric. 4. The patient has a healthcare proxy who was affirmed by court, and they want us to medicate him even if the patient does not want to be compliant. 5. At this moment the patient is slightly over-sedated with EPS but we will keep the same dose of antipsychotics since his violence has improved. 01/03/25 Continue plan of care Reassess treatment plan which includes IM medication patient has been much less aggressive than he has in the past Unclear discharge plan at this point 01/04/2025 Patient taking Valium and olanzapine regularly has IM prescribed if refuses intermittently taking medication for diabetes hypertension 01/05/25 Cont medicationhas been stabilizing try and d/c meds that are not esential simplify regimen 01/06/25 stop namenda monitor sugar / bp encourage med acceptance cont valium olanzapine 01/08/2025 Continue olanzapine Valium metformin try and taper and simplify medication as tolerated discharge planning monitor response to change in medication 01/09/25 Try and simplify med regimen d/c planning 01/11/2025 Patient generally more cooperative not agitated generally monitor blood sugar and blood pressure intermittently refuses some doses of metformin 01/12/25 Pt seen later in day seemed stable flat some balance problems noted lowwer trileptal and primidone ck ortho vs dailypt consult for balance 01/13/2025 Patient improving less reactive has not been aggressive more cooperative with treatment and medication. Discharge planning 01/14: fell this morning, per head/c-spine CT and pelvic XR, no osseus injuries. pt appears as at recent mental status. no complaints or requests other than for wheelchair. pt will have 1:1 for ambulation for now. continue current psychopharm mgmt. 01/15: Continue current management and treatment plan. 01/16: continue current management and treatment plan. 01/17 keep same treatment. 01/18 keep same treatment 01/19 keep same treatment 01/20 keep same treatment 01/21 keep same treatment 01/22: calm, cooperative, flat. no questions or complaints. stable presentation. continue current mgmt. 01/23: no change, continue current mgmt. 01/24: stable. continue current mgmt. reps from [facility] coming to [facility] pt for placement today. 01/25/2025 Patient in behavioral control vital signs stable generally accepting treatment continue discharge planning 01/26/2025 Patient generally cooperative seen in the milieu no aggression suicidality or her problematic behavior. Discharge planning strongly urged transition 01/27/2025 Patient continues to be generally stabilizing not combative agitated or threatening has remained generally calm seems safe for discharge planning much improved over time 01/28/2025 Patient seen psychiatric follow-up patient has significantly improved over the months he is calm cooperative seen watching television somewhat social at times not aggressive or combative 01/29 Continue current regime/plan. Improved. 01/31: stably improved. awaiting placement. continue current mgmt. 02/01: stable. continue current mgmt. awaiting placement. 02/02: no change in presentation or plan. 02/03: stable. continue current mgmt. 02/04/2025 Patient seen psychiatric follow-up no current behavioral difficulties no current ability to place patient in a less restricted setting 02/06: no change in presentation. continue current mgmt. 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 Patient took all medications today; nurse however reports that recently he seemed a little suspicious, on the verge of picking over medications. -vitals WNL -no new labs 02/15/2025 Patient states he is doing okay understands he is waiting for some form of placement. Accepting treatment vital signs unremarkable continue plan of care discharge plan 02/16/2025 No major changes patient has been waiting for placement no less restrictive setting available at this time continues to be cooperative with care no significant behavioral difficulties 02/18/2025 Vital signs stable no need to change current regimen continue discharge planning. No less restrictive setting presently available for discharge 02/19 continue treatment plan 02/22 continue tx. 02/24: no change in presentation. continue current mgmt. /3: no change in presentation. continue current mgmt. 5/4: drawn and withdrawn. c/o diplopia both with and without corrective lenses. continue current mgmt. 5/6: seen with visitor who reports glasses Rx is within the past year. pt c/o anxiety. agrees to trial of slightly increase valium dosing (4 TID increase to 5 TID). otherwise continue current mgmt for now. Reason for continued inpatient stay Substantial Risk for: inability to function and rapid decompensation Time Spent With Patient Time: Total time managing care of this patient today __25__ minutes.
[2025-03-01 19:58] VITALS: BP 104/67; PULSE 79; RESP 18; TEMP 36.2; O2SAT 97
[2025-03-01] MEDS: Sertraline HCL 100 MG TABLET PO (20:06)
[2025-03-01] MEDS: diazePAM 5 MG TABLET PO (20:06)
[2025-03-01] MEDS: OLANZapine 10 MG TABLET 20 MG PO (20:07)
[2025-03-01] MEDS: Mirtazapine 30 MG TABLET PO (20:07)
[2025-03-01] MEDS: OXcarbazepine 300 MG TABLET PO (20:07)
[2025-03-02 08:00] VITALS: BP 115/74; PULSE 80; RESP 18; TEMP 36.6; O2SAT 100
[2025-03-02] MEDS: Empagliflozin 10 MG TABLET PO (09:07)
[2025-03-02] MEDS: metFORMIN HCl ER 500 MG TAB.ER.24H 1000 MG PO (09:07)
[2025-03-02] MEDS: diazePAM 5 MG TABLET PO ×3 (09:07→20:44)
[2025-03-02] MEDS: lisinopriL 20 MG TABLET PO (09:07)
[2025-03-02] MEDS: Primidone 50 MG TABLET 25 MG PO ×2 (09:08→20:44)
--- NOTE | 2025-03-02 13:14 | HO.PSYCHPN ---
Subjective Subjective Date of Service: 03/02/25 Reason For Visit: Anxiety, mood disorder, ASD Interim History: seated in milieu choosing meals. c/o wanting new glasses. reporting continues to feel anxious. Mental Status Exam Mental Status Exam Patient Appearance: Appropriate Patient Orientation: Person and Situation Level of Consciousness: Awake and Appropriate Patient Behavior: Guarded and Passive Mood Description: Withdrawn ( ok ) Affect Description: Withdrawn Patient Cognition Impaired: Yes Ability to Follow Directions: Fair Speech Pattern: Clear Hallucinations: None Delusions: Not Present Thought Process: Distracted and Slowed Thinking Thought Content: positive for [place] and positive for Poverty of Content Judgement: Poor Diagnostics Vital Signs (24Hr): Vital Signs - 24 hr 03/01/25 19:58 03/02/25 08:00 Temperature 97.1 F 97.9 F Pulse Rate 79 80 Respiratory Rate 18 18 Blood Pressure 104/67 115/74 Pulse Oximetry 97 100 Oxygen Delivery Method Room Air Room Air BMI result Body Mass Index 26.5 Labs 10/28/24 09:10 02/25/25 07:34 Imaging Radiology Impressions: ITS Impressions Hip X-Ray 01/12/25 13:30 IMPRESSION: No evidence of fracture of the bilateral hips. Electronically signed by: Kaushal Soni MD 01/12/2025 01:54 PM EDT RP Cervical Spine CT 01/14/25 07:59 IMPRESSION: Multilevel cervical spondylosis without acute fracture or trauma-related listhesis. Fleischner guidelines were followed. Electronically signed by: Abe Griffin MD 01/14/2025 09:50 AM EDT RP Head CT 01/14/25 08:30 IMPRESSION: No acute intracranial abnormality. No fracture seen. Electronically signed by: Chidi Rodriguez MD 01/17/2025 01:08 PM EDT RP Hip/Pelvis X-Ray 01/14/25 09:10 IMPRESSION: No acute fracture or dislocation. Electronically signed by: Abe Griffin MD 01/14/2025 10:35 AM EDT RP Medications Medications Current Medications Acetaminophen (Acetaminophen 325 Mg Tablet) 650 mg PO Q6H PRN PRN Reason: pain scale (1-10) Benztropine Mesylate (Benztropine Mesylate 1 Mg Tablet) 1 mg PO BEDTIME PRN PRN Reason: Extrapyramidal Effects Diazepam (Diazepam 10 Mg/2 Ml Cartridge) 5 mg IM TID PRN PRN Reason: PO refusal. HOLD FOR SEDATION Last Admin: 12/21/24 10:22 Dose: 5 mg Diazepam (Diazepam 5 Mg Tablet) 5 mg PO TID DESIRAE Last Admin: 03/02/25 09:07 Dose: 5 mg Empagliflozin (Empagliflozin 10 Mg Tablet) 10 mg PO DAILY DESIRAE Last Admin: 03/02/25 09:07 Dose: 10 mg Lisinopril (Lisinopril 20 Mg Tablet) 20 mg PO DAILY DESIRAE; Protocol Last Admin: 03/02/25 09:07 Dose: 20 mg Magnesium Hydroxide (Milk Of Magnesia 30 Ml Oral.Susp) 30 ml PO DAILY PRN PRN Reason: Constipation Last Admin: 02/04/25 14:59 Dose: 30 ml Metformin HCl (Metformin Hcl Er 500 Mg Tab.Er.24h) 1,000 mg PO DAILY DESIRAE Last Admin: 03/02/25 09:07 Dose: 1,000 mg Mirtazapine (Mirtazapine 30 Mg Tablet) 30 mg PO BEDTIME DESIRAE Last Admin: 03/01/25 20:07 Dose: 30 mg Nicotine Polacrilex (Nicotine Polacrilex 2 Mg Gum) 4 mg BUCCAL Q2H PRN PRN Reason: Nicotine Cravings Olanzapine (Olanzapine 10 Mg Tablet) 20 mg PO BEDTIME DESIRAE Last Admin: 03/01/25 20:07 Dose: 20 mg Olanzapine (Olanzapine 10 Mg Vial) 10 mg IM BID PRN PRN Reason: PO refusal Last Admin: 12/21/24 10:22 Dose: 10 mg Olanzapine (Olanzapine Odt 10 Mg Tab.Rapdis) 10 mg TRANSLINGU BID PRN PRN Reason: agitation Last Admin: 01/14/25 12:16 Dose: 10 mg Oxcarbazepine (Oxcarbazepine 300 Mg Tablet) 300 mg PO BEDTIME DESIRAE Last Admin: 03/01/25 20:07 Dose: 300 mg Primidone (Primidone 50 Mg Tablet) 25 mg PO BID DESIRAE Last Admin: 03/02/25 09:08 Dose: 25 mg Sertraline HCl (Sertraline Hcl 100 Mg Tablet) 100 mg PO BEDTIME DESIRAE Last Admin: 03/01/25 20:06 Dose: 100 mg Trazodone HCl (Trazodone Hcl 50 Mg Tablet) 50 mg PO BEDTIME PRN PRN Reason: Insomnia Allergies Allergies Allergy/AdvReac Type Severity Reaction Status Date / Time No Known Allergies Allergy Verified 10/14/24 18:14 [No Known Allergies*] Assessment & Plan Assessment & Plan (1) Mood disorder: Status: Acute Code(s): F39 - Unspecified mood [affective] disorder (2) Autism spectrum disorder: Status: Acute Code(s): F84.0 - Autistic disorder (3) Dementia: Status: Acute Code(s): F03.90 - Unspecified dementia, unspecified severity, without behavioral disturbance, psychotic disturbance, mood disturbance, and anxiety Plan Humza was admitted for safety and stabilization. His presentation is very similar to his last admission psychiatrically about a year ago and that is why his caregivers wanted to get ahead of things before he decompensated further. Current medications were reviewed and maintained. Contacts to be made with his treaters next week. 10/17: Continue current regimen and plans 10/19: Continue current tx plan and regime. 10/21: Memantine 5 mg daily- MCI, memory sx Abilify 2 mg daily-augment to antidepressants currently being used. 10/22 continue current tx plan -pt confused 10/23 Continue trials, regime and plan. 10/24: Continue regime and plan of care. 10/25 Abilify increased up to 5 mg. 10/26 keep on same treatment 10/27/24 continues with many complaints, no clear insight into self- 10/28 continue same treatment 10/29 increase Namenda to 5 mg p.o. b.i.d. and change Depakote to Depakene. Depakote level on 13/02 as per blood work of yesterday 10/30/24 - [employer] olanzapine = continue depakene as he did take 5 capsules this am- prn olanzapine given - this afternoon for behaviors on unit- 10/31/24 wrote for liquid depakote option if refuses capsules, also got prn olanzapine for throwing self on floor 11/01 keep same treatment 11/02 increase Zyprexa to 20 mg p.o. q.h.s. 11/03 keep same treatment. 11/04 discontinue Depakote and start Trileptal 300 mg p.o. b.i.d.. Her healthcare proxy will bring a copy of that we are going to invoke it 11/06 increase olanzapine to 20mg po qhs and 10mg po daily. 11/07 continue tx. 12/04 continue tx. 12/05: no changes 12/06 continue tx. 12/12: continue plan of care 12/13: continue tx 12/19 continue current tx plan 12/25: appearing sedated, more of a falls risk, poorer ability to do ADLs. decrease trileptal dosing from 600 BID to 300 BID for now. 12/26: less sedated than yesterday, continue current mgmt, including 1:1, until attending can see pt in the morning. 12/30: continues less sedated. minimally interactive. continue current mgmt. 12/31: per HCP, not at baseline, over-sedated. begin valium taper. decrease valium 5 TID to 4 TID for now. per HCP and SW, HCP has been affirmed in court. IM back-up orders in place and to be enforced by nursing staff. no aggressive or agitated behaviors. 01/02: Continue current regimen and plans Plan 1. Continue with olanzapine 10 mg p.o. q.a.m. and 20 mg p.o. q.h.s., he refused p.o. he received olanzapine IM. 2. Continue with Valium 5 mg p.o. t.i.d. if he refuses he will get Valium IM. 3. We will encourage compliance. The patient had been noncompliant with sertraline, he remains dysphoric. 4. The patient has a healthcare proxy who was affirmed by court, and they want us to medicate him even if the patient does not want to be compliant. 5. At this moment the patient is slightly over-sedated with EPS but we will keep the same dose of antipsychotics since his violence has improved. 01/03/25 Continue plan of care Reassess treatment plan which includes IM medication patient has been much less aggressive than he has in the past Unclear discharge plan at this point 01/04/2025 Patient taking Valium and olanzapine regularly has IM prescribed if refuses intermittently taking medication for diabetes hypertension 01/05/25 Cont medicationhas been stabilizing try and d/c meds that are not esential simplify regimen 01/06/25 stop namenda monitor sugar / bp encourage med acceptance cont valium olanzapine 01/08/2025 Continue olanzapine Valium metformin try and taper and simplify medication as tolerated discharge planning monitor response to change in medication 01/09/25 Try and simplify med regimen d/c planning 01/11/2025 Patient generally more cooperative not agitated generally monitor blood sugar and blood pressure intermittently refuses some doses of metformin 01/12/25 Pt seen later in day seemed stable flat some balance problems noted lowwer trileptal and primidone ck ortho vs dailypt consult for balance 01/13/2025 Patient improving less reactive has not been aggressive more cooperative with treatment and medication. Discharge planning 01/14: fell this morning, per head/c-spine CT and pelvic XR, no osseus injuries. pt appears as at recent mental status. no complaints or requests other than for wheelchair. pt will have 1:1 for ambulation for now. continue current psychopharm mgmt. 01/15: Continue current management and treatment plan. 01/16: continue current management and treatment plan. 01/17 keep same treatment. 01/18 keep same treatment 01/19 keep same treatment 01/20 keep same treatment 01/21 keep same treatment 01/22: calm, cooperative, flat. no questions or complaints. stable presentation. continue current mgmt. 01/23: no change, continue current mgmt. 01/24: stable. continue current mgmt. reps from [facility] coming to [facility] pt for placement today. 01/25/2025 Patient in behavioral control vital signs stable generally accepting treatment continue discharge planning 01/26/2025 Patient generally cooperative seen in the milieu no aggression suicidality or her problematic behavior. Discharge planning strongly urged transition 01/27/2025 Patient continues to be generally stabilizing not combative agitated or threatening has remained generally calm seems safe for discharge planning much improved over time 01/28/2025 Patient seen psychiatric follow-up patient has significantly improved over the months he is calm cooperative seen watching television somewhat social at times not aggressive or combative 01/29 Continue current regime/plan. Improved. 01/31: stably improved. awaiting placement. continue current mgmt. 02/01: stable. continue current mgmt. awaiting placement. 02/02: no change in presentation or plan. 02/03: stable. continue current mgmt. 02/04/2025 Patient seen psychiatric follow-up no current behavioral difficulties no current ability to place patient in a less restricted setting 02/06: no change in presentation. continue current mgmt. 02/07/25 cont d/c planning pt has been tentatively accepted no less restrictive setting currently available 02/08/2025 Continue discharge planning patient tentatively accepted no funding source available at this time no less restrictive setting available 02/14 Patient tells journalists and other writers he is hanging in there he says it can be hard sometimes to do so but it is overall going okay. Patient took all medications today; nurse however reports that recently he seemed a little suspicious, on the verge of picking over medications. -vitals WNL -no new labs 02/15/2025 Patient states he is doing okay understands he is waiting for some form of placement. Accepting treatment vital signs unremarkable continue plan of care discharge plan 02/16/2025 No major changes patient has been waiting for placement no less restrictive setting available at this time continues to be cooperative with care no significant behavioral difficulties 02/18/2025 Vital signs stable no need to change current regimen continue discharge planning. No less restrictive setting presently available for discharge 02/19 continue treatment plan 02/22 continue tx. 1: no change in presentation. continue current mgmt. 5/3: no change in presentation. continue current mgmt. 5/4: drawn and withdrawn. c/o diplopia both with and without corrective lenses. continue current mgmt. 6: seen with visitor who reports glasses Rx is within the past year. pt c/o anxiety. agrees to trial of slightly increase valium dosing (4 TID increase to 5 TID). otherwise continue current mgmt for now. 03/02: c/o wanting new glasses, some anxiety. up and about in the milieu. appears at baseline. continue current mgmt. Reason for continued inpatient stay Substantial Risk for: inability to function and rapid decompensation Time Spent With Patient Time: Total time managing care of this patient today ____ minutes.
[2025-03-02 20:00] VITALS: BP 118/67; PULSE 92; RESP 18; TEMP 36.3; O2SAT 100
[2025-03-02] MEDS: Mirtazapine 30 MG TABLET PO (20:43)
[2025-03-02] MEDS: OLANZapine 10 MG TABLET 20 MG PO (20:43)
[2025-03-02] MEDS: Sertraline HCL 100 MG TABLET PO (20:44)
[2025-03-02] MEDS: OXcarbazepine 300 MG TABLET PO (20:51)
[2025-03-03 08:00] VITALS: BP 125/81; PULSE 74; RESP 18; TEMP 36.7; O2SAT 98
[2025-03-03] MEDS: Primidone 50 MG TABLET 25 MG PO ×2 (08:01→19:58)
[2025-03-03] MEDS: Empagliflozin 10 MG TABLET PO (08:01)
[2025-03-03] MEDS: diazePAM 5 MG TABLET PO ×3 (08:01→19:57)
[2025-03-03] MEDS: metFORMIN HCl ER 500 MG TAB.ER.24H 1000 MG PO (08:01)
[2025-03-03] MEDS: lisinopriL 20 MG TABLET PO (08:01)
--- NOTE | 2025-03-03 16:10 | HO.PSYCHPN ---
Subjective Subjective Date of Service: 03/03/25 Reason For Visit: Anxiety, mood disorder, ASD Interim History: in bed, stable. no questions or complaints. per staff, isolative. taking meds. +anx/dep 02/03. slept well. Mental Status Exam Mental Status Exam Patient Appearance: Appropriate Patient Orientation: Person and Situation Level of Consciousness: Awake and Appropriate Patient Behavior: Guarded and Passive Mood Description: Withdrawn ( ok ) Affect Description: Withdrawn Patient Cognition Impaired: Yes Ability to Follow Directions: Fair Speech Pattern: Clear Hallucinations: None Delusions: Not Present Thought Process: Distracted and Slowed Thinking Thought Content: positive for [place] and positive for Poverty of Content Judgement: Poor Diagnostics Vital Signs (24Hr): Vital Signs - 24 hr 03/02/25 20:00 03/03/25 08:00 Temperature 97.3 F 98.1 F Pulse Rate 92 74 Respiratory Rate 18 18 Blood Pressure 118/67 125/81 Pulse Oximetry 100 98 Oxygen Delivery Method Room Air Room Air BMI result Body Mass Index 26.5 Labs 10/28/24 09:10 02/25/25 07:34 Imaging Radiology Impressions: ITS Impressions Hip X-Ray 01/12/25 13:30 IMPRESSION: No evidence of fracture of the bilateral hips. Electronically signed by: Kaushal Soni MD 01/12/2025 01:54 PM EDT RP Cervical Spine CT 01/14/25 07:59 IMPRESSION: Multilevel cervical spondylosis without acute fracture or trauma-related listhesis. Fleischner guidelines were followed. Electronically signed by: Abe Griffin MD 01/14/2025 09:50 AM EDT RP Head CT 01/14/25 08:30 IMPRESSION: No acute intracranial abnormality. No fracture seen. Electronically signed by: Chidi Rodriguez MD 01/17/2025 01:08 PM EDT RP Hip/Pelvis X-Ray 01/14/25 09:10 IMPRESSION: No acute fracture or dislocation. Electronically signed by: Abe Griffin MD 01/14/2025 10:35 AM EDT RP Medications Medications Current Medications Acetaminophen (Acetaminophen 325 Mg Tablet) 650 mg PO Q6H PRN PRN Reason: pain scale (1-10) Benztropine Mesylate (Benztropine Mesylate 1 Mg Tablet) 1 mg PO BEDTIME PRN PRN Reason: Extrapyramidal Effects Diazepam (Diazepam 10 Mg/2 Ml Cartridge) 5 mg IM TID PRN PRN Reason: PO refusal. HOLD FOR SEDATION Last Admin: 12/21/24 10:22 Dose: 5 mg Diazepam (Diazepam 5 Mg Tablet) 5 mg PO TID DESIRAE Last Admin: 03/03/25 15:32 Dose: 5 mg Empagliflozin (Empagliflozin 10 Mg Tablet) 10 mg PO DAILY DESIRAE Last Admin: 03/03/25 08:01 Dose: 10 mg Lisinopril (Lisinopril 20 Mg Tablet) 20 mg PO DAILY DESIRAE; Protocol Last Admin: 03/03/25 08:01 Dose: 20 mg Magnesium Hydroxide (Milk Of Magnesia 30 Ml Oral.Susp) 30 ml PO DAILY PRN PRN Reason: Constipation Last Admin: 02/04/25 14:59 Dose: 30 ml Metformin HCl (Metformin Hcl Er 500 Mg Tab.Er.24h) 1,000 mg PO DAILY DESIRAE Last Admin: 03/03/25 08:01 Dose: 1,000 mg Mirtazapine (Mirtazapine 30 Mg Tablet) 30 mg PO BEDTIME DESIRAE Last Admin: 03/02/25 20:43 Dose: 30 mg Nicotine Polacrilex (Nicotine Polacrilex 2 Mg Gum) 4 mg BUCCAL Q2H PRN PRN Reason: Nicotine Cravings Olanzapine (Olanzapine 10 Mg Tablet) 20 mg PO BEDTIME DESIRAE Last Admin: 03/02/25 20:43 Dose: 20 mg Olanzapine (Olanzapine 10 Mg Vial) 10 mg IM BID PRN PRN Reason: PO refusal Last Admin: 12/21/24 10:22 Dose: 10 mg Olanzapine (Olanzapine Odt 10 Mg Tab.Rapdis) 10 mg TRANSLINGU BID PRN PRN Reason: agitation Last Admin: 01/14/25 12:16 Dose: 10 mg Oxcarbazepine (Oxcarbazepine 300 Mg Tablet) 300 mg PO BEDTIME DESIRAE Last Admin: 03/02/25 20:51 Dose: 300 mg Primidone (Primidone 50 Mg Tablet) 25 mg PO BID DESIRAE Last Admin: 03/03/25 08:01 Dose: 25 mg Sertraline HCl (Sertraline Hcl 100 Mg Tablet) 100 mg PO BEDTIME DESIRAE Last Admin: 03/02/25 20:44 Dose: 100 mg Trazodone HCl (Trazodone Hcl 50 Mg Tablet) 50 mg PO BEDTIME PRN PRN Reason: Insomnia Allergies Allergies Allergy/AdvReac Type Severity Reaction Status Date / Time No Known Allergies Allergy Verified 10/14/24 18:14 [No Known Allergies*] Assessment & Plan Assessment & Plan (1) Mood disorder: Status: Acute Code(s): F39 - Unspecified mood [affective] disorder (2) Autism spectrum disorder: Status: Acute Code(s): F84.0 - Autistic disorder (3) Dementia: Status: Acute Code(s): F03.90 - Unspecified dementia, unspecified severity, without behavioral disturbance, psychotic disturbance, mood disturbance, and anxiety Plan Humza was admitted for safety and stabilization. His presentation is very similar to his last admission psychiatrically about a year ago and that is why his caregivers wanted to get ahead of things before he decompensated further. Current medications were reviewed and maintained. Contacts to be made with his treaters next week. 10/17: Continue current regimen and plans 10/19: Continue current tx plan and regime. 10/21: Memantine 5 mg daily- [facility]CI, memory sx Abilify 2 mg daily-augment to antidepressants currently being used. 10/22 continue current tx plan -pt confused 10/23 Continue trials, regime and plan. 10/24: Continue regime and plan of care. 10/25 Abilify increased up to 5 mg. 10/26 keep on same treatment 10/27/24 continues with many complaints, no clear insight into self- 10/28 continue same treatment 10/29 increase Namenda to 5 mg p.o. b.i.d. and change Depakote to Depakene. Depakote level on 13/02 as per blood work of yesterday 10/30/24 - dc [employer] inc olanzapine = continue depakene as he did take 5 capsules this am- prn olanzapine given - this afternoon for behaviors on unit- 10/31/24 wrote for liquid depakote option if refuses capsules, also got prn olanzapine for throwing self on floor 11/01 keep same treatment 11/02 increase Zyprexa to 20 mg p.o. q.h.s. 11/03 keep same treatment. 11/04 discontinue Depakote and start Trileptal 300 mg p.o. b.i.d.. Her healthcare proxy will bring a copy of that we are going to invoke it 11/06 increase olanzapine to 20mg po qhs and 10mg po daily. 11/07 continue tx. 12/04 continue tx. 12/05: no changes 12/06 continue tx. 12/12: continue plan of care 12/13: continue tx 12/19 continue current tx plan 12/25: appearing sedated, more of a falls risk, poorer ability to do ADLs. decrease trileptal dosing from 600 BID to 300 BID for now. 12/26: less sedated than yesterday, continue current mgmt, including 1:1, until attending can see pt in the morning. 12/30: continues less sedated. minimally interactive. continue current mgmt. 12/31: per HCP, not at baseline, over-sedated. begin valium taper. decrease valium 5 TID to 4 TID for now. per HCP and SW, HCP has been affirmed in court. IM back-up orders in place and to be enforced by nursing staff. no aggressive or agitated behaviors. 01/02: Continue current regimen and plans Plan 1. Continue with olanzapine 10 mg p.o. q.a.m. and 20 mg p.o. q.h.s., he refused p.o. he received olanzapine IM. 2. Continue with Valium 5 mg p.o. t.i.d. if he refuses he will get Valium IM. 3. We will encourage compliance. The patient had been noncompliant with sertraline, he remains dysphoric. 4. The patient has a healthcare proxy who was affirmed by court, and they want us to medicate him even if the patient does not want to be compliant. 5. At this moment the patient is slightly over-sedated with EPS but we will keep the same dose of antipsychotics since his violence has improved. 01/03/25 Continue plan of care Reassess treatment plan which includes IM medication patient has been much less aggressive than he has in the past Unclear discharge plan at this point 01/04/2025 Patient taking Valium and olanzapine regularly has IM prescribed if refuses intermittently taking medication for diabetes hypertension 01/05/25 Cont medicationhas been stabilizing try and d/c meds that are not esential simplify regimen 01/06/25 stop namenda monitor sugar / bp encourage med acceptance cont valium olanzapine 01/08/2025 Continue olanzapine Valium metformin try and taper and simplify medication as tolerated discharge planning monitor response to change in medication 01/09/25 Try and simplify med regimen d/c planning 01/11/2025 Patient generally more cooperative not agitated generally monitor blood sugar and blood pressure intermittently refuses some doses of metformin 01/12/25 Pt seen later in day seemed stable flat some balance problems noted lowwer trileptal and primidone ck ortho vs dailypt consult for balance 01/13/2025 Patient improving less reactive has not been aggressive more cooperative with treatment and medication. Discharge planning 01/14: fell this morning, per head/c-spine CT and pelvic XR, no osseus injuries. pt appears as at recent mental status. no complaints or requests other than for wheelchair. pt will have 1:1 for ambulation for now. continue current psychopharm mgmt. 01/15: Continue current management and treatment plan. 01/16: continue current management and treatment plan. 01/17 keep same treatment. 01/18 keep same treatment 01/19 keep same treatment 01/20 keep same treatment 01/21 keep same treatment 01/22: calm, cooperative, flat. no questions or complaints. stable presentation. continue current mgmt. 01/23: no change, continue current mgmt. 01/24: stable. continue current mgmt. reps from [facility] coming to [facility] pt for placement today. 01/25/2025 Patient in behavioral control vital signs stable generally accepting treatment continue discharge planning 01/26/2025 Patient generally cooperative seen in the milieu no aggression suicidality or her problematic behavior. Discharge planning strongly urged transition 01/27/2025 Patient continues to be generally stabilizing not combative agitated or threatening has remained generally calm seems safe for discharge planning much improved over time 01/28/2025 Patient seen psychiatric follow-up patient has significantly improved over the months he is calm cooperative seen watching television somewhat social at times not aggressive or combative 01/29 Continue current regime/plan. Improved. 01/31: stably improved. awaiting placement. continue current mgmt. 02/01: stable. continue current mgmt. awaiting placement. 02/02: no change in presentation or plan. 02/03: stable. continue current mgmt. 02/04/2025 Patient seen psychiatric follow-up no current behavioral difficulties no current ability to place patient in a less restricted setting 02/06: no change in presentation. continue current mgmt. 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 Patient took all medications today; nurse however reports that recently he seemed a little suspicious, on the verge of picking over medications. -vitals WNL -no new labs 02/15/2025 Patient states he is doing okay understands he is waiting for some form of placement. Accepting treatment vital signs unremarkable continue plan of care discharge plan 02/16/2025 No major changes patient has been waiting for placement no less restrictive setting available at this time continues to be cooperative with care no significant behavioral difficulties 02/18/2025 Vital signs stable no need to change current regimen continue discharge planning. No less restrictive setting presently available for discharge 02/19 continue treatment plan 02/22 continue tx. 02/24: no change in presentation. continue current mgmt. 5/3: no change in presentation. continue current mgmt. 5/4: drawn and withdrawn. c/o diplopia both with and without corrective lenses. continue current mgmt. 02/28/2025 Patient calm some anxiety noted future oriented continue plan of care 03/03: stable. continue current mgmt. Reason for continued inpatient stay Substantial Risk for: inability to function Time Spent With Patient Time: Total time managing care of this patient today ____ minutes.
[2025-03-03] MEDS: Mirtazapine 30 MG TABLET PO (19:57)
[2025-03-03] MEDS: OXcarbazepine 300 MG TABLET PO (19:57)
[2025-03-03] MEDS: Sertraline HCL 100 MG TABLET PO (19:57)
[2025-03-03] MEDS: OLANZapine 10 MG TABLET 20 MG PO (19:57)
[2025-03-03 20:00] VITALS: BP 119/71; PULSE 74; RESP 16; TEMP 36.4; O2SAT 98
[2025-03-04 08:00] VITALS: BP 117/66; PULSE 78; RESP 18; TEMP 36.4; O2SAT 99
[2025-03-04 08:10] LABS: Creatinine Clr Calc Pharmacy 61.7; Estimated Glomerular Filt Rate > 60
[2025-03-04] MEDS: metFORMIN HCl ER 500 MG TAB.ER.24H 1000 MG PO (08:41)
[2025-03-04] MEDS: diazePAM 5 MG TABLET PO ×3 (08:41→20:24)
[2025-03-04] MEDS: lisinopriL 20 MG TABLET PO (08:41)
[2025-03-04] MEDS: Primidone 50 MG TABLET 25 MG PO ×2 (08:41→20:24)
[2025-03-04] MEDS: Empagliflozin 10 MG TABLET PO (08:41)
[2025-03-04 09:11] VITALS: BMI 26.7
[2025-03-04 20:00] VITALS: BP 106/68; PULSE 62; RESP 16; TEMP 36.4; O2SAT 99
[2025-03-04] MEDS: OXcarbazepine 300 MG TABLET PO (20:23)
[2025-03-04] MEDS: Sertraline HCL 100 MG TABLET PO (20:23)
[2025-03-04] MEDS: OLANZapine 10 MG TABLET 20 MG PO (20:24)
[2025-03-04] MEDS: Mirtazapine 30 MG TABLET PO (20:24)
[2025-03-05 08:00] VITALS: BP 111/71; PULSE 78; RESP 16; TEMP 36.3; O2SAT 100
[2025-03-05 09:34] VITALS: BP 102/67; PULSE 84
[2025-03-05] MEDS: metFORMIN HCl ER 500 MG TAB.ER.24H 1000 MG PO (09:34)
[2025-03-05] MEDS: Primidone 50 MG TABLET 25 MG PO ×2 (09:34→20:45)
[2025-03-05] MEDS: lisinopriL 20 MG TABLET PO (09:36)
[2025-03-05] MEDS: Empagliflozin 10 MG TABLET PO (09:36)
[2025-03-05] MEDS: diazePAM 5 MG TABLET PO ×3 (09:36→20:45)
--- NOTE | 2025-03-05 13:09 | HO.PSYCHPN ---
Subjective Subjective Date of Service: 03/05/25 Reason For Visit: Anxiety, mood disorder, ASD Subjective Notes: Conditional Voluntary Interim History: Patient was seen and discussed in rounds today. Records and plans were reviewed. Continues to be isolative denies depression or anxiety. Some auditory hallucinations reported. Medication compliant. Awaiting placement Review of Systems Review of Systems Yes Unobtainable due to mental status Mental Status Exam Mental Status Exam Patient Appearance: Appropriate Patient Orientation: Person and Situation Level of Consciousness: Awake and Appropriate Patient Behavior: Guarded and Passive Mood Description: Withdrawn ( ok ) Affect Description: Withdrawn Patient Cognition Impaired: Yes Ability to Follow Directions: Fair Speech Pattern: Clear Hallucinations: None Delusions: Not Present Thought Process: Distracted and Slowed Thinking Thought Content: positive for [place] and positive for Poverty of Content Judgement: Poor Diagnostics Vital Signs (24Hr): Vital Signs - 24 hr 03/04/25 20:00 03/05/25 08:00 03/05/25 09:34 Temperature 97.5 F 97.3 F Pulse Rate 62 78 84 Respiratory Rate 16 16 Blood Pressure 106/68 111/71 102/67 Pulse Oximetry 99 100 Oxygen Delivery Method Room Air Room Air BMI result Body Mass Index 26.7 Labs 10/28/24 09:10 03/04/25 07:52 Labs: Laboratory Results - last 48 hr 03/04/25 07:52 Creatinine 1.17 Estim Creat Clear Calc 61.7 Estimated GFR > 60 Imaging Radiology Impressions: ITS Impressions Hip X-Ray 01/12/25 13:30 IMPRESSION: No evidence of fracture of the bilateral hips. Electronically signed by: Kaushal Soni MD 01/12/2025 01:54 PM EDT RP Cervical Spine CT 01/14/25 07:59 IMPRESSION: Multilevel cervical spondylosis without acute fracture or trauma-related listhesis. Fleischner guidelines were followed. Electronically signed by: Abe Griffin MD 01/14/2025 09:50 AM EDT RP Head CT 01/14/25 08:30 IMPRESSION: No acute intracranial abnormality. No fracture seen. Electronically signed by: Chidi Rodriguez MD 01/17/2025 01:08 PM EDT RP Hip/Pelvis X-Ray 01/14/25 09:10 IMPRESSION: No acute fracture or dislocation. Electronically signed by: Abe Griffin MD 01/14/2025 10:35 AM EDT RP Medications Medications Current Medications Acetaminophen (Acetaminophen 325 Mg Tablet) 650 mg PO Q6H PRN PRN Reason: pain scale (1-10) Benztropine Mesylate (Benztropine Mesylate 1 Mg Tablet) 1 mg PO BEDTIME PRN PRN Reason: Extrapyramidal Effects Diazepam (Diazepam 10 Mg/2 Ml Cartridge) 5 mg IM TID PRN PRN Reason: PO refusal. HOLD FOR SEDATION Last Admin: 12/21/24 10:22 Dose: 5 mg Diazepam (Diazepam 5 Mg Tablet) 5 mg PO TID DESIRAE Last Admin: 03/05/25 09:36 Dose: 5 mg Empagliflozin (Empagliflozin 10 Mg Tablet) 10 mg PO DAILY DESIRAE Last Admin: 03/05/25 09:36 Dose: 10 mg Lisinopril (Lisinopril 20 Mg Tablet) 20 mg PO DAILY DESIRAE; Protocol Last Admin: 03/05/25 09:36 Dose: 20 mg Magnesium Hydroxide (Milk Of Magnesia 30 Ml Oral.Susp) 30 ml PO DAILY PRN PRN Reason: Constipation Last Admin: 02/04/25 14:59 Dose: 30 ml Metformin HCl (Metformin Hcl Er 500 Mg Tab.Er.24h) 1,000 mg PO DAILY DESIRAE Last Admin: 03/05/25 09:34 Dose: 1,000 mg Mirtazapine (Mirtazapine 30 Mg Tablet) 30 mg PO BEDTIME DESIRAE Last Admin: 03/04/25 20:24 Dose: 30 mg Nicotine Polacrilex (Nicotine Polacrilex 2 Mg Gum) 4 mg BUCCAL Q2H PRN PRN Reason: Nicotine Cravings Olanzapine (Olanzapine 10 Mg Tablet) 20 mg PO BEDTIME DESIRAE Last Admin: 03/04/25 20:24 Dose: 20 mg Olanzapine (Olanzapine 10 Mg Vial) 10 mg IM BID PRN PRN Reason: PO refusal Last Admin: 12/21/24 10:22 Dose: 10 mg Olanzapine (Olanzapine Odt 10 Mg Tab.Rapdis) 10 mg TRANSLINGU BID PRN PRN Reason: agitation Last Admin: 01/14/25 12:16 Dose: 10 mg Oxcarbazepine (Oxcarbazepine 300 Mg Tablet) 300 mg PO BEDTIME DESIRAE Last Admin: 03/04/25 20:23 Dose: 300 mg Primidone (Primidone 50 Mg Tablet) 25 mg PO BID DESIRAE Last Admin: 03/05/25 09:34 Dose: 25 mg Sertraline HCl (Sertraline Hcl 100 Mg Tablet) 100 mg PO BEDTIME DESIRAE Last Admin: 03/04/25 20:23 Dose: 100 mg Trazodone HCl (Trazodone Hcl 50 Mg Tablet) 50 mg PO BEDTIME PRN PRN Reason: Insomnia Allergies Allergies Allergy/AdvReac Type Severity Reaction Status Date / Time No Known Allergies Allergy Verified 10/14/24 18:14 [No Known Allergies*] Assessment & Plan Assessment & Plan (1) Mood disorder: Status: Acute Code(s): F39 - Unspecified mood [affective] disorder (2) Autism spectrum disorder: Status: Acute Code(s): F84.0 - Autistic disorder (3) Dementia: Status: Acute Code(s): F03.90 - Unspecified dementia, unspecified severity, without behavioral disturbance, psychotic disturbance, mood disturbance, and anxiety Plan Humza was admitted for safety and stabilization. His presentation is very similar to his last admission psychiatrically about a year ago and that is why his caregivers wanted to get ahead of things before he decompensated further. Current medications were reviewed and maintained. Contacts to be made with his treaters next week. 10/17: Continue current regimen and plans 10/19: Continue current tx plan and regime. 10/21: Memantine 5 mg daily- [facility], memory sx Abilify 2 mg daily-augment to antidepressants currently being used. 10/22 continue current tx plan -pt confused 10/23 Continue trials, regime and plan. 10/24: Continue regime and plan of care. 10/25 Abilify increased up to 5 mg. 10/26 keep on same treatment 10/27/24 continues with many complaints, no clear insight into self- 10/28 continue same treatment 10/29 increase Namenda to 5 mg p.o. b.i.d. and change Depakote to Depakene. Depakote level on 13/02 as per blood work of yesterday 10/30/24 - dc abilify inc olanzapine = continue depakene as he did take 5 capsules this am- prn olanzapine given - this afternoon for behaviors on unit- 10/31/24 wrote for liquid depakote option if refuses capsules, also got prn olanzapine for throwing self on floor 11/01 keep same treatment 11/02 increase Zyprexa to 20 mg p.o. q.h.s. 11/03 keep same treatment. 11/04 discontinue Depakote and start Trileptal 300 mg p.o. b.i.d.. Her healthcare proxy will bring a copy of that we are going to invoke it 11/06 increase olanzapine to 20mg po qhs and 10mg po daily. 11/07 continue tx. 12/04 continue tx. 12/05: no changes 12/06 continue tx. 12/12: continue plan of care 12/13: continue tx 12/19 continue current tx plan 12/25: appearing sedated, more of a falls risk, poorer ability to do ADLs. decrease trileptal dosing from 600 BID to 300 BID for now. 12/26: less sedated than yesterday, continue current mgmt, including 1:1, until attending can see pt in the morning. 12/30: continues less sedated. minimally interactive. continue current mgmt. 12/31: per HCP, not at baseline, over-sedated. begin valium taper. decrease valium 5 TID to 4 TID for now. per HCP and SW, HCP has been affirmed in court. IM back-up orders in place and to be enforced by nursing staff. no aggressive or agitated behaviors. 01/02: Continue current regimen and plans Plan 1. Continue with olanzapine 10 mg p.o. q.a.m. and 20 mg p.o. q.h.s., he refused p.o. he received olanzapine IM. 2. Continue with Valium 5 mg p.o. t.i.d. if he refuses he will get Valium IM. 3. We will encourage compliance. The patient had been noncompliant with sertraline, he remains dysphoric. 4. The patient has a healthcare proxy who was affirmed by court, and they want us to medicate him even if the patient does not want to be compliant. 5. At this moment the patient is slightly over-sedated with EPS but we will keep the same dose of antipsychotics since his violence has improved. 01/03/25 Continue plan of care Reassess treatment plan which includes IM medication patient has been much less aggressive than he has in the past Unclear discharge plan at this point 01/04/2025 Patient taking Valium and olanzapine regularly has IM prescribed if refuses intermittently taking medication for diabetes hypertension 01/05/25 Cont medicationhas been stabilizing try and d/c meds that are not esential simplify regimen 01/06/25 stop namenda monitor sugar / bp encourage med acceptance cont valium olanzapine 01/08/2025 Continue olanzapine Valium metformin try and taper and simplify medication as tolerated discharge planning monitor response to change in medication 01/09/25 Try and simplify med regimen d/c planning 01/11/2025 Patient generally more cooperative not agitated generally monitor blood sugar and blood pressure intermittently refuses some doses of metformin 01/12/25 Pt seen later in day seemed stable flat some balance problems noted lowwer trileptal and primidone ck ortho vs dailypt consult for balance 01/13/2025 Patient improving less reactive has not been aggressive more cooperative with treatment and medication. Discharge planning 01/14: fell this morning, per head/c-spine CT and pelvic XR, no osseus injuries. pt appears as at recent mental status. no complaints or requests other than for wheelchair. pt will have 1:1 for ambulation for now. continue current psychopharm mgmt. 01/15: Continue current management and treatment plan. 01/16: continue current management and treatment plan. 01/17 keep same treatment. 01/18 keep same treatment 01/19 keep same treatment 01/20 keep same treatment 01/21 keep same treatment 01/22: calm, cooperative, flat. no questions or complaints. stable presentation. continue current mgmt. 01/23: no change, continue current mgmt. 01/24: stable. continue current mgmt. reps from [facility] coming to [facility] pt for placement today. 01/25/2025 Patient in behavioral control vital signs stable generally accepting treatment continue discharge planning 01/26/2025 Patient generally cooperative seen in the milieu no aggression suicidality or her problematic behavior. Discharge planning strongly urged transition 01/27/2025 Patient continues to be generally stabilizing not combative agitated or threatening has remained generally calm seems safe for discharge planning much improved over time 01/28/2025 Patient seen psychiatric follow-up patient has significantly improved over the months he is calm cooperative seen watching television somewhat social at times not aggressive or combative 01/29 Continue current regime/plan. Improved. 01/31: stably improved. awaiting placement. continue current mgmt. 02/01: stable. continue current mgmt. awaiting placement. 02/02: no change in presentation or plan. 02/03: stable. continue current mgmt. 02/04/2025 Patient seen psychiatric follow-up no current behavioral difficulties no current ability to place patient in a less restricted setting 02/06: no change in presentation. continue current mgmt. 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 Patient took all medications today; nurse however reports that recently he seemed a little suspicious, on the verge of picking over medications. -vitals WNL -no new labs 02/15/2025 Patient states he is doing okay understands he is waiting for some form of placement. Accepting treatment vital signs unremarkable continue plan of care discharge plan 02/16/2025 No major changes patient has been waiting for placement no less restrictive setting available at this time continues to be cooperative with care no significant behavioral difficulties 02/18/2025 Vital signs stable no need to change current regimen continue discharge planning. No less restrictive setting presently available for discharge 02/19 continue treatment plan 02/22 continue tx. 02/24: no change in presentation. continue current mgmt. 02/26: no change in presentation. continue current mgmt. 02/27: drawn and withdrawn. c/o diplopia both with and without corrective lenses. continue current mgmt. 02/28/2025 Patient calm some anxiety noted future oriented continue plan of care 03/03: stable. continue current mgmt. 03/05: Continue current regimen and plans Reason for continued inpatient stay Substantial Risk for: inability to function Time Spent With Patient Time: Total time managing care of this patient today ____ minutes.
[2025-03-05 20:00] VITALS: BP 112/67; PULSE 74; RESP 16; TEMP 36.6; O2SAT 100
[2025-03-05] MEDS: OXcarbazepine 300 MG TABLET PO (20:45)
[2025-03-05] MEDS: OLANZapine 10 MG TABLET 20 MG PO (20:45)
[2025-03-05] MEDS: Mirtazapine 30 MG TABLET PO (20:45)
[2025-03-05] MEDS: Sertraline HCL 100 MG TABLET PO (20:45)
[2025-03-06 08:00] VITALS: BP 115/72; PULSE 83; RESP 16; TEMP 36.8; O2SAT 99
[2025-03-06] MEDS: Primidone 50 MG TABLET 25 MG PO ×2 (08:35→20:11)
[2025-03-06] MEDS: diazePAM 5 MG TABLET PO ×3 (08:35→20:10)
[2025-03-06] MEDS: lisinopriL 20 MG TABLET PO (08:35)
[2025-03-06] MEDS: metFORMIN HCl ER 500 MG TAB.ER.24H 1000 MG PO (08:36)
[2025-03-06] MEDS: Empagliflozin 10 MG TABLET PO (08:36)
--- NOTE | 2025-03-06 10:55 | P.PNPSI_ITS ---
Subjective Subjective Date of Service: 03/06/25 Reason For Visit: Anxiety, mood disorder, ASD Subjective Notes: Conditional Voluntary Interim History: Patient was seen and discussed in rounds today. Records and plans were reviewed. He is doing better and had agreed to a shave. No longer complaining of double vision. Moderate anxiety persisting. No AVH. No complaints or side effects. Medication compliant. Review of Systems Review of Systems Yes all other systems are reviewed and are negative Mental Status Exam Mental Status Exam Patient Appearance: Appropriate Patient Orientation: Person and Situation Level of Consciousness: Awake and Appropriate Patient Behavior: Guarded and Passive Mood Description: Withdrawn ( ok ) Affect Description: Withdrawn Patient Cognition Impaired: Yes Ability to Follow Directions: Fair Speech Pattern: Clear Hallucinations: None Delusions: Not Present Thought Process: Distracted and Slowed Thinking Thought Content: positive for [place] and positive for Poverty of Content Judgement: Poor Diagnostics Vital Signs (24Hr): Vital Signs - 24 hr 03/05/25 20:00 03/06/25 08:00 Temperature 97.8 F 98.2 F Pulse Rate 74 83 Respiratory Rate 16 16 Blood Pressure 112/67 115/72 Pulse Oximetry 100 99 Oxygen Delivery Method Room Air Room Air BMI result Body Mass Index 26.7 Labs 10/28/24 09:10 03/04/25 07:52 Imaging Radiology Impressions: ITS Impressions Hip X-Ray 01/12/25 13:30 IMPRESSION: No evidence of fracture of the bilateral hips. Electronically signed by: Kaushal Soni MD 01/12/2025 01:54 PM EDT RP Cervical Spine CT 01/14/25 07:59 IMPRESSION: Multilevel cervical spondylosis without acute fracture or trauma-related listhesis. Fleischner guidelines were followed. Electronically signed by: Abe Griffin MD 01/14/2025 09:50 AM EDT RP Head CT 01/14/25 08:30 IMPRESSION: No acute intracranial abnormality. No fracture seen. Electronically signed by: Chidi Rodriguez MD 01/17/2025 01:08 PM EDT RP Hip/Pelvis X-Ray 01/14/25 09:10 IMPRESSION: No acute fracture or dislocation. Electronically signed by: Abe Griffin MD 01/14/2025 10:35 AM EDT RP Medications Medications Current Medications Acetaminophen (Acetaminophen 325 Mg Tablet) 650 mg PO Q6H PRN PRN Reason: pain scale (1-10) Benztropine Mesylate (Benztropine Mesylate 1 Mg Tablet) 1 mg PO BEDTIME PRN PRN Reason: Extrapyramidal Effects Diazepam (Diazepam 10 Mg/2 Ml Cartridge) 5 mg IM TID PRN PRN Reason: PO refusal. HOLD FOR SEDATION Last Admin: 12/21/24 10:22 Dose: 5 mg Diazepam (Diazepam 5 Mg Tablet) 5 mg PO TID DESIRAE Last Admin: 03/06/25 08:35 Dose: 5 mg Empagliflozin (Empagliflozin 10 Mg Tablet) 10 mg PO DAILY DESIRAE Last Admin: 03/06/25 08:36 Dose: 10 mg Lisinopril (Lisinopril 20 Mg Tablet) 20 mg PO DAILY DESIRAE; Protocol Last Admin: 03/06/25 08:35 Dose: 20 mg Magnesium Hydroxide (Milk Of Magnesia 30 Ml Oral.Susp) 30 ml PO DAILY PRN PRN Reason: Constipation Last Admin: 02/04/25 14:59 Dose: 30 ml Metformin HCl (Metformin Hcl Er 500 Mg Tab.Er.24h) 1,000 mg PO DAILY DESIRAE Last Admin: 03/06/25 08:36 Dose: 1,000 mg Mirtazapine (Mirtazapine 30 Mg Tablet) 30 mg PO BEDTIME DESIRAE Last Admin: 03/05/25 20:45 Dose: 30 mg Nicotine Polacrilex (Nicotine Polacrilex 2 Mg Gum) 4 mg BUCCAL Q2H PRN PRN Reason: Nicotine Cravings Olanzapine (Olanzapine 10 Mg Tablet) 20 mg PO BEDTIME DESIRAE Last Admin: 03/05/25 20:45 Dose: 20 mg Olanzapine (Olanzapine 10 Mg Vial) 10 mg IM BID PRN PRN Reason: PO refusal Last Admin: 12/21/24 10:22 Dose: 10 mg Olanzapine (Olanzapine Odt 10 Mg Tab.Rapdis) 10 mg TRANSLINGU BID PRN PRN Reason: agitation Last Admin: 01/14/25 12:16 Dose: 10 mg Oxcarbazepine (Oxcarbazepine 300 Mg Tablet) 300 mg PO BEDTIME DESIRAE Last Admin: 03/05/25 20:45 Dose: 300 mg Primidone (Primidone 50 Mg Tablet) 25 mg PO BID DESIRAE Last Admin: 03/06/25 08:35 Dose: 25 mg Sertraline HCl (Sertraline Hcl 100 Mg Tablet) 100 mg PO BEDTIME DESIRAE Last Admin: 03/05/25 20:45 Dose: 100 mg Trazodone HCl (Trazodone Hcl 50 Mg Tablet) 50 mg PO BEDTIME PRN PRN Reason: Insomnia Allergies Allergies Allergy/AdvReac Type Severity Reaction Status Date / Time No Known Allergies Allergy Verified 10/14/24 18:14 [No Known Allergies*] Assessment & Plan Assessment & Plan (1) Mood disorder: Status: Acute Code(s): F39 - Unspecified mood [affective] disorder (2) Autism spectrum disorder: Status: Acute Code(s): F84.0 - Autistic disorder (3) Dementia: Status: Acute Code(s): F03.90 - Unspecified dementia, unspecified severity, without behavioral disturbance, psychotic disturbance, mood disturbance, and anxiety Plan Humza was admitted for safety and stabilization. His presentation is very similar to his last admission psychiatrically about a year ago and that is why his caregivers wanted to get ahead of things before he decompensated further. Current medications were reviewed and maintained. Contacts to be made with his treaters next week. 10/17: Continue current regimen and plans 10/19: Continue current tx plan and regime. 10/21: Memantine 5 mg daily- [facility], memory sx Abilify 2 mg daily-augment to antidepressants currently being used. 10/22 continue current tx plan -pt confused 10/23 Continue trials, regime and plan. 10/24: Continue regime and plan of care. 10/25 Abilify increased up to 5 mg. 10/26 keep on same treatment 10/27/24 continues with many complaints, no clear insight into self- 10/28 continue same treatment 10/29 increase Namenda to 5 mg p.o. b.i.d. and change Depakote to Depakene. Depakote level on 13/02 as per blood work of yesterday 10/30/24 - [facility] olanzapine = continue depakene as he did take 5 capsules this am- prn olanzapine given - this afternoon for behaviors on unit- 10/31/24 wrote for liquid depakote option if refuses capsules, also got prn olanzapine for throwing self on floor 1/6 keep same treatment 11/02 increase Zyprexa to 20 mg p.o. q.h.s. 11/03 keep same treatment. 11/04 discontinue Depakote and start Trileptal 300 mg p.o. b.i.d.. Her healthcare proxy will bring a copy of that we are going to invoke it 11/06 increase olanzapine to 20mg po qhs and 10mg po daily. 11/07 continue tx. 12/04 continue tx. 12/05: no changes 12/06 continue tx. 12/12: continue plan of care 12/13: continue tx 12/19 continue current tx plan 12/25: appearing sedated, more of a falls risk, poorer ability to do ADLs. decrease trileptal dosing from 600 BID to 300 BID for now. 12/26: less sedated than yesterday, continue current mgmt, including 1:1, until attending can see pt in the morning. 12/30: continues less sedated. minimally interactive. continue current mgmt. 12/31: per HCP, not at baseline, over-sedated. begin valium taper. decrease valium 5 TID to 4 TID for now. per HCP and SW, HCP has been affirmed in court. IM back-up orders in place and to be enforced by nursing staff. no aggressive or agitated behaviors. 01/02: Continue current regimen and plans Plan 1. Continue with olanzapine 10 mg p.o. q.a.m. and 20 mg p.o. q.h.s., he refused p.o. he received olanzapine IM. 2. Continue with Valium 5 mg p.o. t.i.d. if he refuses he will get Valium IM. 3. We will encourage compliance. The patient had been noncompliant with sertraline, he remains dysphoric. 4. The patient has a healthcare proxy who was affirmed by court, and they want us to medicate him even if the patient does not want to be compliant. 5. At this moment the patient is slightly over-sedated with EPS but we will keep the same dose of antipsychotics since his violence has improved. 01/03/25 Continue plan of care Reassess treatment plan which includes IM medication patient has been much less aggressive than he has in the past Unclear discharge plan at this point 01/04/2025 Patient taking Valium and olanzapine regularly has IM prescribed if refuses intermittently taking medication for diabetes hypertension 01/05/25 Cont medicationhas been stabilizing try and d/c meds that are not esential simplify regimen 01/06/25 stop namenda monitor sugar / bp encourage med acceptance cont valium olanzapine 01/08/2025 Continue olanzapine Valium metformin try and taper and simplify medication as tolerated discharge planning monitor response to change in medication 01/09/25 Try and simplify med regimen d/c planning 01/11/2025 Patient generally more cooperative not agitated generally monitor blood sugar and blood pressure intermittently refuses some doses of metformin 01/12/25 Pt seen later in day seemed stable flat some balance problems noted lowwer trileptal and primidone ck ortho vs dailypt consult for balance 01/13/2025 Patient improving less reactive has not been aggressive more cooperative with treatment and medication. Discharge planning 01/14: fell this morning, per head/c-spine CT and pelvic XR, no osseus injuries. pt appears as at recent mental status. no complaints or requests other than for wheelchair. pt will have 1:1 for ambulation for now. continue current psychopharm mgmt. 01/15: Continue current management and treatment plan. 01/16: continue current management and treatment plan. 01/17 keep same treatment. 01/18 keep same treatment 01/19 keep same treatment 01/20 keep same treatment 01/21 keep same treatment 01/22: calm, cooperative, flat. no questions or complaints. stable presentation. continue current mgmt. 01/23: no change, continue current mgmt. 01/24: stable. continue current mgmt. reps from [facility] coming to [facility] pt for placement today. 01/25/2025 Patient in behavioral control vital signs stable generally accepting treatment continue discharge planning 01/26/2025 Patient generally cooperative seen in the milieu no aggression suicidality or her problematic behavior. Discharge planning strongly urged transition 01/27/2025 Patient continues to be generally stabilizing not combative agitated or threatening has remained generally calm seems safe for discharge planning much improved over time 01/28/2025 Patient seen psychiatric follow-up patient has significantly improved over the months he is calm cooperative seen watching television somewhat social at times not aggressive or combative 01/29 Continue current regime/plan. Improved. 01/31: stably improved. awaiting placement. continue current mgmt. 02/01: stable. continue current mgmt. awaiting placement. 02/02: no change in presentation or plan. 02/03: stable. continue current mgmt. 02/04/2025 Patient seen psychiatric follow-up no current behavioral difficulties no current ability to place patient in a less restricted setting 02/06: no change in presentation. continue current mgmt. 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 Patient took all medications today; nurse however reports that recently he seemed a little suspicious, on the verge of picking over medications. -vitals WNL -no new labs 02/15/2025 Patient states he is doing okay understands he is waiting for some form of placement. Accepting treatment vital signs unremarkable continue plan of care discharge plan 02/16/2025 No major changes patient has been waiting for placement no less restrictive setting available at this time continues to be cooperative with care no significant behavioral difficulties 02/18/2025 Vital signs stable no need to change current regimen continue discharge planning. No less restrictive setting presently available for discharge 02/19 continue treatment plan 02/22 continue tx. 02/24: no change in presentation. continue current mgmt. /3: no change in presentation. continue current mgmt. 5/: drawn and withdrawn. c/o diplopia both with and without corrective lenses. continue current mgmt. 02/28/2025 Patient calm some anxiety noted future oriented continue plan of care 03/03: stable. continue current mgmt. 03/05: Continue current regimen and plans 03/06: Continue current regimen and plans Reason for continued inpatient stay Substantial Risk for: med/psych decompensation Time Spent With Patient Time: Total time managing care of this patient today ____ minutes.
[2025-03-06 20:08] VITALS: BP 110/63; PULSE 76; RESP 16; TEMP 36; O2SAT 99
[2025-03-06] MEDS: Mirtazapine 30 MG TABLET PO (20:10)
[2025-03-06] MEDS: Sertraline HCL 100 MG TABLET PO (20:10)
[2025-03-06] MEDS: OLANZapine 10 MG TABLET 20 MG PO (20:11)
[2025-03-06] MEDS: OXcarbazepine 300 MG TABLET PO (20:11)
[2025-03-07 08:00] VITALS: BP 106/68; PULSE 98; RESP 16; TEMP 36.4; O2SAT 99
[2025-03-07 08:29] VITALS: BP 106/68
[2025-03-07] MEDS: Primidone 50 MG TABLET 25 MG PO ×2 (08:29→20:00)
[2025-03-07] MEDS: diazePAM 5 MG TABLET PO ×3 (08:29→20:00)
[2025-03-07] MEDS: Empagliflozin 10 MG TABLET PO (08:29)
[2025-03-07] MEDS: lisinopriL 20 MG TABLET PO (08:29)
[2025-03-07] MEDS: metFORMIN HCl ER 500 MG TAB.ER.24H 1000 MG PO (08:30)
--- NOTE | 2025-03-07 12:29 | P.PNPSI_ITS ---
Subjective Subjective Date of Service: 03/07/25 Reason For Visit: Anxiety, mood disorder, ASD Subjective Notes: Conditional Voluntary Healthcare Proxy: Yes Interim History: Pt slept through the night. He was visible during meals and other times when he wanted to watch TV. No behavioral concerns. No aggression towards self or others. No psychosis or delusions. Medication Compliance: Yes Review of Systems Review of Systems Diarrhea Yes all other systems are reviewed and are negative and Unobtainable due to mental status Mental Status Exam Mental Status Exam Patient Appearance: Appropriate Patient Orientation: Person and Situation Level of Consciousness: Awake and Appropriate Patient Behavior: Guarded and Passive Mood Description: Withdrawn ( ok ) Affect Description: Withdrawn Patient Cognition Impaired: Yes Ability to Follow Directions: Fair Speech Pattern: Clear Memory Description: Remote Impaired Diagnostics Vital Signs (24Hr): Vital Signs - 24 hr 03/06/25 20:08 03/07/25 08:00 03/07/25 08:29 Temperature 96.8 F 97.5 F Pulse Rate 76 98 Respiratory Rate 16 16 Blood Pressure 110/63 106/68 106/68 Pulse Oximetry 99 99 Oxygen Delivery Method Room Air Room Air BMI result Body Mass Index 26.7 Labs 10/28/24 09:10 03/04/25 07:52 Imaging Radiology Impressions: ITS Impressions Hip X-Ray 01/12/25 13:30 IMPRESSION: No evidence of fracture of the bilateral hips. Electronically signed by: Kaushal Soni MD 01/12/2025 01:54 PM EDT RP Cervical Spine CT 01/14/25 07:59 IMPRESSION: Multilevel cervical spondylosis without acute fracture or trauma-related listhesis. Fleischner guidelines were followed. Electronically signed by: Abe Griffin MD 01/14/2025 09:50 AM EDT RP Head CT 01/14/25 08:30 IMPRESSION: No acute intracranial abnormality. No fracture seen. Electronically signed by: Chidi Rodriguez MD 01/17/2025 01:08 PM EDT RP Hip/Pelvis X-Ray 01/14/25 09:10 IMPRESSION: No acute fracture or dislocation. Electronically signed by: Abe Griffin MD 01/14/2025 10:35 AM EDT RP Medications Medications Current Medications Acetaminophen (Acetaminophen 325 Mg Tablet) 650 mg PO Q6H PRN PRN Reason: pain scale (1-10) Benztropine Mesylate (Benztropine Mesylate 1 Mg Tablet) 1 mg PO BEDTIME PRN PRN Reason: Extrapyramidal Effects Diazepam (Diazepam 10 Mg/2 Ml Cartridge) 5 mg IM TID PRN PRN Reason: PO refusal. HOLD FOR SEDATION Last Admin: 12/21/24 10:22 Dose: 5 mg Diazepam (Diazepam 5 Mg Tablet) 5 mg PO TID DESIRAE Last Admin: 03/07/25 08:29 Dose: 5 mg Empagliflozin (Empagliflozin 10 Mg Tablet) 10 mg PO DAILY DESIRAE Last Admin: 03/07/25 08:29 Dose: 10 mg Lisinopril (Lisinopril 20 Mg Tablet) 20 mg PO DAILY [facility]; Protocol Last Admin: 03/07/25 08:29 Dose: 20 mg Magnesium Hydroxide (Milk Of Magnesia 30 Ml Oral.Susp) 30 ml PO DAILY PRN PRN Reason: Constipation Last Admin: 02/04/25 14:59 Dose: 30 ml Metformin HCl (Metformin Hcl Er 500 Mg Tab.Er.24h) 1,000 mg PO DAILY DESIRAE Last Admin: 03/07/25 08:30 Dose: 1,000 mg Mirtazapine (Mirtazapine 30 Mg Tablet) 30 mg PO BEDTIME DESIRAE Last Admin: 03/06/25 20:10 Dose: 30 mg Nicotine Polacrilex (Nicotine Polacrilex 2 Mg Gum) 4 mg BUCCAL Q2H PRN PRN Reason: Nicotine Cravings Olanzapine (Olanzapine 10 Mg Tablet) 20 mg PO BEDTIME DESIRAE Last Admin: 03/06/25 20:11 Dose: 20 mg Olanzapine (Olanzapine 10 Mg Vial) 10 mg IM BID PRN PRN Reason: PO refusal Last Admin: 12/21/24 10:22 Dose: 10 mg Olanzapine (Olanzapine Odt 10 Mg Tab.Rapdis) 10 mg TRANSLINGU BID PRN PRN Reason: agitation Last Admin: 01/14/25 12:16 Dose: 10 mg Oxcarbazepine (Oxcarbazepine 300 Mg Tablet) 300 mg PO BEDTIME DESIRAE Last Admin: 03/06/25 20:11 Dose: 300 mg Primidone (Primidone 50 Mg Tablet) 25 mg PO BID DESIRAE Last Admin: 03/07/25 08:29 Dose: 25 mg Sertraline HCl (Sertraline Hcl 100 Mg Tablet) 100 mg PO BEDTIME DESIRAE Last Admin: 03/06/25 20:10 Dose: 100 mg Trazodone HCl (Trazodone Hcl 50 Mg Tablet) 50 mg PO BEDTIME PRN PRN Reason: Insomnia Allergies Allergies Allergy/AdvReac Type Severity Reaction Status Date / Time No Known Allergies Allergy Verified 10/14/24 18:14 [No Known Allergies*] Assessment & Plan Assessment & Plan (1) Mood disorder: Status: Acute Code(s): F39 - Unspecified mood [affective] disorder (2) Autism spectrum disorder: Status: Acute Code(s): F84.0 - Autistic disorder (3) Dementia: Status: Acute Code(s): F03.90 - Unspecified dementia, unspecified severity, without behavioral disturbance, psychotic disturbance, mood disturbance, and anxiety Plan Humza was admitted for safety and stabilization. His presentation is very similar to his last admission psychiatrically about a year ago and that is why his caregivers wanted to get ahead of things before he decompensated further. Current medications were reviewed and maintained. Contacts to be made with his treaters next week. 10/17: Continue current regimen and plans 10/19: Continue current tx plan and regime. 10/21: Memantine 5 mg daily- [facility], memory sx Abilify 2 mg daily-augment to antidepressants currently being used. 10/22 continue current tx plan -pt confused 10/23 Continue trials, regime and plan. 10/24: Continue regime and plan of care. 10/25 Abilify increased up to 5 mg. 10/26 keep on same treatment 10/27/24 continues with many complaints, no clear insight into self- 10/28 continue same treatment 10/29 increase Namenda to 5 mg p.o. b.i.d. and change Depakote to Depakene. 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 q.h.s. 11/03 keep same treatment. 11/04 discontinue Depakote and start Trileptal 300 mg p.o. b.i.d.. Her healthcare proxy will bring a copy of that we are going to invoke it 11/06 increase olanzapine to 20mg po qhs and 10mg po daily. 11/07 continue tx. 12/04 continue tx. 12/05: no changes 12/06 continue tx. 12/12: continue plan of care 12/13: continue tx 12/19 continue current tx plan 12/25: appearing sedated, more of a falls risk, poorer ability to do ADLs. decrease trileptal dosing from 600 BID to 300 BID for now. 12/26: less sedated than yesterday, continue current mgmt, including 1:1, until attending can see pt in the morning. 12/30: continues less sedated. minimally interactive. continue current mgmt. 12/31: per HCP, not at baseline, over-sedated. begin valium taper. decrease valium 5 TID to 4 TID for now. per HCP and SW, HCP has been affirmed in court. IM back-up orders in place and to be enforced by nursing staff. no aggressive or agitated behaviors. 01/02: Continue current regimen and plans Plan 1. Continue with olanzapine 10 mg p.o. q.a.m. and 20 mg p.o. q.h.s., he refused p.o. he received olanzapine IM. 2. Continue with Valium 5 mg p.o. t.i.d. if he refuses he will get Valium IM. 3. We will encourage compliance. The patient had been noncompliant with sertraline, he remains dysphoric. 4. The patient has a healthcare proxy who was affirmed by court, and they want us to medicate him even if the patient does not want to be compliant. 5. At this moment the patient is slightly over-sedated with EPS but we will keep the same dose of antipsychotics since his violence has improved. 01/03/25 Continue plan of care Reassess treatment plan which includes IM medication patient has been much less aggressive than he has in the past Unclear discharge plan at this point 01/04/2025 Patient taking Valium and olanzapine regularly has IM prescribed if refuses intermittently taking medication for diabetes hypertension 01/05/25 Cont medicationhas been stabilizing try and d/c meds that are not esential simplify regimen 01/06/25 stop namenda monitor sugar / bp encourage med acceptance cont valium olanzapine 01/08/2025 Continue olanzapine Valium metformin try and taper and simplify medication as tolerated discharge planning monitor response to change in medication 01/09/25 Try and simplify med regimen d/c planning 01/11/2025 Patient generally more cooperative not agitated generally monitor blood sugar and blood pressure intermittently refuses some doses of metformin 01/12/25 Pt seen later in day seemed stable flat some balance problems noted lowwer trileptal and primidone ck ortho vs dailypt consult for balance 01/13/2025 Patient improving less reactive has not been aggressive more cooperative with treatment and medication. Discharge planning 01/14: fell this morning, per head/c-spine CT and pelvic XR, no osseus injuries. pt appears as at recent mental status. no complaints or requests other than for wheelchair. pt will have 1:1 for ambulation for now. continue current psychopharm mgmt. 01/15: Continue current management and treatment plan. 01/16: continue current management and treatment plan. 01/17 keep same treatment. 01/18 keep same treatment 01/19 keep same treatment 01/20 keep same treatment 01/21 keep same treatment 01/22: calm, cooperative, flat. no questions or complaints. stable presentation. continue current mgmt. 01/23: no change, continue current mgmt. 01/24: stable. continue current mgmt. reps from [facility] coming to [facility] pt for placement today. 01/25/2025 Patient in behavioral control vital signs stable generally accepting treatment continue discharge planning 01/26/2025 Patient generally cooperative seen in the milieu no aggression suicidality or her problematic behavior. Discharge planning strongly urged transition 01/27/2025 Patient continues to be generally stabilizing not combative agitated or threatening has remained generally calm seems safe for discharge planning much improved over time 01/28/2025 Patient seen psychiatric follow-up patient has significantly improved over the months he is calm cooperative seen watching television somewhat social at times not aggressive or combative 01/29 Continue current regime/plan. Improved. 01/31: stably improved. awaiting placement. continue current mgmt. 02/01: stable. continue current mgmt. awaiting placement. 02/02: no change in presentation or plan. 02/03: stable. continue current mgmt. 02/04/2025 Patient seen psychiatric follow-up no current behavioral difficulties no current ability to place patient in a less restricted setting 02/06: no change in presentation. continue current mgmt. 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 Patient took all medications today; nurse however reports that recently he seemed a little suspicious, on the verge of picking over medications. -vitals WNL -no new labs 02/15/2025 Patient states he is doing okay understands he is waiting for some form of placement. Accepting treatment vital signs unremarkable continue plan of care discharge plan 02/16/2025 No major changes patient has been waiting for placement no less restrictive setting available at this time continues to be cooperative with care no significant behavioral difficulties 02/18/2025 Vital signs stable no need to change current regimen continue discharge planning. No less restrictive setting presently available for discharge 02/19 continue treatment plan 02/22 continue tx. 02/24: no change in presentation. continue current mgmt. 02/26: no change in presentation. continue current mgmt. 02/27: drawn and withdrawn. c/o diplopia both with and without corrective lenses. continue current mgmt. 02/28/2025 Patient calm some anxiety noted future oriented continue plan of care 03/03: stable. continue current mgmt. 03/05: Continue current regimen and plans 03/06: Continue current regimen and plans 03/07 continue tx. Reason for continued inpatient stay Substantial Risk for: inability to function Time Spent With Patient Time: Total time managing care of this patient today ____ minutes.
[2025-03-07 19:57] VITALS: BP 100/66; PULSE 73; RESP 16; TEMP 36.1; O2SAT 98
[2025-03-07] MEDS: OLANZapine 10 MG TABLET 20 MG PO (19:59)
[2025-03-07] MEDS: Sertraline HCL 100 MG TABLET PO (20:00)
[2025-03-07] MEDS: OXcarbazepine 300 MG TABLET PO (20:00)
[2025-03-07] MEDS: Mirtazapine 30 MG TABLET PO (20:00)
[2025-03-08 08:00] VITALS: BP 106/71; PULSE 84; RESP 18; TEMP 36.3; O2SAT 100
[2025-03-08] MEDS: Empagliflozin 10 MG TABLET PO (08:45)
[2025-03-08] MEDS: Primidone 50 MG TABLET 25 MG PO ×2 (08:45→21:13)
[2025-03-08] MEDS: metFORMIN HCl ER 500 MG TAB.ER.24H 1000 MG PO (08:45)
[2025-03-08] MEDS: diazePAM 5 MG TABLET PO ×3 (08:45→21:13)
[2025-03-08] MEDS: lisinopriL 20 MG TABLET PO (08:46)
--- NOTE | 2025-03-08 16:29 | P.PNPSI_ITS ---
Subjective Subjective Date of Service: 03/08/25 Reason For Visit: Anxiety, mood disorder, ASD Interim History: in milieu watching TV. calm, pleasant. responded appropriately to comment on his shirt. reports anxiety is OK. per staff, no change. Mental Status Exam Mental Status Exam Patient Appearance: Appropriate Patient Orientation: Person and Situation Level of Consciousness: Awake and Appropriate Patient Behavior: Guarded and Passive Mood Description: Withdrawn ( ok ) Affect Description: Withdrawn Patient Cognition Impaired: Yes Ability to Follow Directions: Fair Speech Pattern: Clear Hallucinations: None Delusions: Not Present Thought Process: Distracted and Slowed Thinking Thought Content: positive for [place] and positive for Poverty of Content Judgement: Poor Diagnostics Vital Signs (24Hr): Vital Signs - 24 hr 03/07/25 19:57 03/08/25 08:00 Temperature 97 F 97.4 F Pulse Rate 73 84 Respiratory Rate 16 18 Blood Pressure 100/66 106/71 Pulse Oximetry 98 100 Oxygen Delivery Method Room Air Room Air BMI result Body Mass Index 26.7 Labs 10/28/24 09:10 03/04/25 07:52 Imaging Radiology Impressions: ITS Impressions Hip X-Ray 01/12/25 13:30 IMPRESSION: No evidence of fracture of the bilateral hips. Electronically signed by: Kaushal Soni MD 01/12/2025 01:54 PM EDT RP Cervical Spine CT 01/14/25 07:59 IMPRESSION: Multilevel cervical spondylosis without acute fracture or trauma-related listhesis. Fleischner guidelines were followed. Electronically signed by: Abe Griffin MD 01/14/2025 09:50 AM EDT RP Head CT 01/14/25 08:30 IMPRESSION: No acute intracranial abnormality. No fracture seen. Electronically signed by: Chidi Rodriguez MD 01/17/2025 01:08 PM EDT RP Hip/Pelvis X-Ray 01/14/25 09:10 IMPRESSION: No acute fracture or dislocation. Electronically signed by: Abe Griffin MD 01/14/2025 10:35 AM EDT RP Medications Medications Current Medications Acetaminophen (Acetaminophen 325 Mg Tablet) 650 mg PO Q6H PRN PRN Reason: pain scale (1-10) Benztropine Mesylate (Benztropine Mesylate 1 Mg Tablet) 1 mg PO BEDTIME PRN PRN Reason: Extrapyramidal Effects Diazepam (Diazepam 10 Mg/2 Ml Cartridge) 5 mg IM TID PRN PRN Reason: PO refusal. HOLD FOR SEDATION Last Admin: 12/21/24 10:22 Dose: 5 mg Diazepam (Diazepam 5 Mg Tablet) 5 mg PO TID DESIRAE Last Admin: 03/08/25 15:39 Dose: 5 mg Empagliflozin (Empagliflozin 10 Mg Tablet) 10 mg PO DAILY DESIRAE Last Admin: 03/08/25 08:45 Dose: 10 mg Lisinopril (Lisinopril 20 Mg Tablet) 20 mg PO DAILY DESIRAE; Protocol Last Admin: 03/08/25 08:46 Dose: 20 mg Magnesium Hydroxide (Milk Of Magnesia 30 Ml Oral.Susp) 30 ml PO DAILY PRN PRN Reason: Constipation Last Admin: 02/04/25 14:59 Dose: 30 ml Metformin HCl (Metformin Hcl Er 500 Mg Tab.Er.24h) 1,000 mg PO DAILY DESIRAE Last Admin: 03/08/25 08:45 Dose: 1,000 mg Mirtazapine (Mirtazapine 30 Mg Tablet) 30 mg PO BEDTIME DESIRAE Last Admin: 03/07/25 20:00 Dose: 30 mg Nicotine Polacrilex (Nicotine Polacrilex 2 Mg Gum) 4 mg BUCCAL Q2H PRN PRN Reason: Nicotine Cravings Olanzapine (Olanzapine 10 Mg Tablet) 20 mg PO BEDTIME DESIRAE Last Admin: 03/07/25 19:59 Dose: 20 mg Olanzapine (Olanzapine 10 Mg Vial) 10 mg IM BID PRN PRN Reason: PO refusal Last Admin: 12/21/24 10:22 Dose: 10 mg Olanzapine (Olanzapine Odt 10 Mg Tab.Rapdis) 10 mg TRANSLINGU BID PRN PRN Reason: agitation Last Admin: 01/14/25 12:16 Dose: 10 mg Oxcarbazepine (Oxcarbazepine 300 Mg Tablet) 300 mg PO BEDTIME DESIRAE Last Admin: 03/07/25 20:00 Dose: 300 mg Primidone (Primidone 50 Mg Tablet) 25 mg PO BID DESIRAE Last Admin: 03/08/25 08:45 Dose: 25 mg Sertraline HCl (Sertraline Hcl 100 Mg Tablet) 100 mg PO BEDTIME DESIRAE Last Admin: 03/07/25 20:00 Dose: 100 mg Trazodone HCl (Trazodone Hcl 50 Mg Tablet) 50 mg PO BEDTIME PRN PRN Reason: Insomnia Allergies Allergies Allergy/AdvReac Type Severity Reaction Status Date / Time No Known Allergies Allergy Verified 10/14/24 18:14 [No Known Allergies*] Assessment & Plan Assessment & Plan (1) Mood disorder: Status: Acute Code(s): F39 - Unspecified mood [affective] disorder (2) Autism spectrum disorder: Status: Acute Code(s): F84.0 - Autistic disorder (3) Dementia: Status: Acute Code(s): F03.90 - Unspecified dementia, unspecified severity, without behavioral disturbance, psychotic disturbance, mood disturbance, and anxiety Plan Humza was admitted for safety and stabilization. His presentation is very similar to his last admission psychiatrically about a year ago and that is why his caregivers wanted to get ahead of things before he decompensated further. Current medications were reviewed and maintained. Contacts to be made with his treaters next week. 10/17: Continue current regimen and plans 10/19: Continue current tx plan and regime. 10/21: Memantine 5 mg daily- [facility], memory sx Abilify 2 mg daily-augment to antidepressants currently being used. 10/22 continue current tx plan -pt confused 10/23 Continue trials, regime and plan. 10/24: Continue regime and plan of care. 10/25 Abilify increased up to 5 mg. 10/26 keep on same treatment 10/27/24 continues with many complaints, no clear insight into self- 10/28 continue same treatment 10/29 increase Namenda to 5 mg p.o. b.i.d. and change Depakote to Depakene. Depakote level on 13/02 as per blood work of yesterday 10/30/24 - dc abilify inc olanzapine = continue depakene as he did take 5 capsules this am- prn olanzapine given - this afternoon for behaviors on unit- 10/31/24 wrote for liquid depakote option if refuses capsules, also got prn olanzapine for throwing self on floor 11/01 keep same treatment 11/02 increase Zyprexa to 20 mg p.o. q.h.s. 11/03 keep same treatment. 11/04 discontinue Depakote and start Trileptal 300 mg p.o. b.i.d.. Her healthcare proxy will bring a copy of that we are going to invoke it 11/06 increase olanzapine to 20mg po qhs and 10mg po daily. 11/07 continue tx. 12/04 continue tx. 12/05: no changes 12/06 continue tx. 12/12: continue plan of care 12/13: continue tx 12/19 continue current tx plan 12/25: appearing sedated, more of a falls risk, poorer ability to do ADLs. decrease trileptal dosing from 600 BID to 300 BID for now. 12/26: less sedated than yesterday, continue current mgmt, including 1:1, until attending can see pt in the morning. 12/30: continues less sedated. minimally interactive. continue current mgmt. 12/31: per HCP, not at baseline, over-sedated. begin valium taper. decrease valium 5 TID to 4 TID for now. per HCP and SW, HCP has been affirmed in court. IM back-up orders in place and to be enforced by nursing staff. no aggressive or agitated behaviors. 01/02: Continue current regimen and plans Plan 1. Continue with olanzapine 10 mg p.o. q.a.m. and 20 mg p.o. q.h.s., he refused p.o. he received olanzapine IM. 2. Continue with Valium 5 mg p.o. t.i.d. if he refuses he will get Valium IM. 3. We will encourage compliance. The patient had been noncompliant with sertraline, he remains dysphoric. 4. The patient has a healthcare proxy who was affirmed by court, and they want us to medicate him even if the patient does not want to be compliant. 5. At this moment the patient is slightly over-sedated with EPS but we will keep the same dose of antipsychotics since his violence has improved. 01/03/25 Continue plan of care Reassess treatment plan which includes IM medication patient has been much less aggressive than he has in the past Unclear discharge plan at this point 01/04/2025 Patient taking Valium and olanzapine regularly has IM prescribed if refuses intermittently taking medication for diabetes hypertension 01/05/25 Cont medicationhas been stabilizing try and d/c meds that are not esential simplify regimen 01/06/25 stop namenda monitor sugar / bp encourage med acceptance cont valium olanzapine 01/08/2025 Continue olanzapine Valium metformin try and taper and simplify medication as tolerated discharge planning monitor response to change in medication 01/09/25 Try and simplify med regimen d/c planning 01/11/2025 Patient generally more cooperative not agitated generally monitor blood sugar and blood pressure intermittently refuses some doses of metformin 01/12/25 Pt seen later in day seemed stable flat some balance problems noted lowwer trileptal and primidone ck ortho vs dailypt consult for balance 01/13/2025 Patient improving less reactive has not been aggressive more cooperative with treatment and medication. Discharge planning 01/14: fell this morning, per head/c-spine CT and pelvic XR, no osseus injuries. pt appears as at recent mental status. no complaints or requests other than for wheelchair. pt will have 1:1 for ambulation for now. continue current psychopharm mgmt. 01/15: Continue current management and treatment plan. 01/16: continue current management and treatment plan. 01/17 keep same treatment. 01/18 keep same treatment 01/19 keep same treatment 01/20 keep same treatment 01/21 keep same treatment 01/22: calm, cooperative, flat. no questions or complaints. stable presentation. continue current mgmt. 01/23: no change, continue current mgmt. 01/24: stable. continue current mgmt. reps from [facility] coming to [facility] pt for placement today. 01/25/2025 Patient in behavioral control vital signs stable generally accepting treatment continue discharge planning 01/26/2025 Patient generally cooperative seen in the milieu no aggression suicidality or her problematic behavior. Discharge planning strongly urged transition 01/27/2025 Patient continues to be generally stabilizing not combative agitated or threatening has remained generally calm seems safe for discharge planning much improved over time 01/28/2025 Patient seen psychiatric follow-up patient has significantly improved over the months he is calm cooperative seen watching television somewhat social at times not aggressive or combative 01/29 Continue current regime/plan. Improved. 01/31: stably improved. awaiting placement. continue current mgmt. 02/01: stable. continue current mgmt. awaiting placement. 02/02: no change in presentation or plan. 02/03: stable. continue current mgmt. 02/04/2025 Patient seen psychiatric follow-up no current behavioral difficulties no current ability to place patient in a less restricted setting 02/06: no change in presentation. continue current mgmt. 02/07/25 cont d/c planning pt has been tentatively accepted no less restrictive setting currently available 02/08/2025 Continue discharge planning patient tentatively accepted no funding source available at this time no less restrictive setting available 02/14 Patient tells life underwriter he is hanging in there he says it can be hard sometimes to do so but it is overall going okay. Patient took all medications today; nurse however reports that recently he seemed a little suspicious, on the verge of picking over medications. -vitals WNL -no new labs 02/15/2025 Patient states he is doing okay understands he is waiting for some form of placement. Accepting treatment vital signs unremarkable continue plan of care discharge plan 02/16/2025 No major changes patient has been waiting for placement no less restrictive setting available at this time continues to be cooperative with care no significant behavioral difficulties 02/18/2025 Vital signs stable no need to change current regimen continue discharge planning. No less restrictive setting presently available for discharge 02/19 continue treatment plan 02/22 continue tx. 02/24: no change in presentation. continue current mgmt. 5/3: no change in presentation. continue current mgmt. 5/: drawn and withdrawn. c/o diplopia both with and without corrective lenses. continue current mgmt. 02/28/2025 Patient calm some anxiety noted future oriented continue plan of care 03/03: stable. continue current mgmt. 03/05: Continue current regimen and plans 03/06: Continue current regimen and plans 03/07 continue tx. 03/08: anxiety in good control. in milieu watching TV, appropriately responds to compliment on his shirt. awaiting placement. Reason for continued inpatient stay Substantial Risk for: inability to function and rapid decompensation Time Spent With Patient Time: Total time managing care of this patient today ____ minutes.
[2025-03-08 20:00] VITALS: BP 98/52; PULSE 77; RESP 18; TEMP 36.1; O2SAT 99
[2025-03-08] MEDS: OLANZapine 10 MG TABLET 20 MG PO (21:11)
[2025-03-08] MEDS: OXcarbazepine 300 MG TABLET PO (21:13)
[2025-03-08] MEDS: Mirtazapine 30 MG TABLET PO (21:13)
[2025-03-08] MEDS: Sertraline HCL 100 MG TABLET PO (21:13)
[2025-03-09 08:00] VITALS: BP 115/74; PULSE 83; RESP 18; TEMP 36.7; O2SAT 99
[2025-03-09 08:20] VITALS: BP 115/74
[2025-03-09] MEDS: lisinopriL 20 MG TABLET PO (08:20)
[2025-03-09] MEDS: metFORMIN HCl ER 500 MG TAB.ER.24H 1000 MG PO (08:20)
[2025-03-09] MEDS: diazePAM 5 MG TABLET PO ×3 (08:20→20:27)
[2025-03-09] MEDS: Empagliflozin 10 MG TABLET PO (08:20)
[2025-03-09] MEDS: Primidone 50 MG TABLET 25 MG PO ×2 (08:23→20:27)
--- NOTE | 2025-03-09 12:51 | P.PNPSI_ITS ---
Subjective Subjective Date of Service: 03/09/25 Reason For Visit: Anxiety, mood disorder, ASD Interim History: in bed resting, no change in presentation. no requests or complaints. per staff, dep/anx 5. slept 8 hours. no issues. Mental Status Exam Mental Status Exam Patient Appearance: Appropriate Patient Orientation: Person and Situation Level of Consciousness: Awake and Appropriate Patient Behavior: Guarded and Passive Mood Description: Withdrawn ( ok ) Affect Description: Withdrawn Patient Cognition Impaired: Yes Ability to Follow Directions: Fair Speech Pattern: Clear Hallucinations: None Delusions: Not Present Thought Process: Distracted and Slowed Thinking Thought Content: positive for [place] and positive for Poverty of Content Judgement: Poor Diagnostics Vital Signs (24Hr): Vital Signs - 24 hr 03/08/25 20:00 03/09/25 08:00 03/09/25 08:20 Temperature 97 F 98.1 F Pulse Rate 77 83 Respiratory Rate 18 18 Blood Pressure 98/52 L 115/74 115/74 Pulse Oximetry 99 99 Oxygen Delivery Method Room Air Room Air BMI result Body Mass Index 26.7 Labs 10/28/24 09:10 03/04/25 07:52 Imaging Radiology Impressions: ITS Impressions Hip X-Ray 01/12/25 13:30 IMPRESSION: No evidence of fracture of the bilateral hips. Electronically signed by: Kaushal Soni MD 01/12/2025 01:54 PM EDT RP Cervical Spine CT 01/14/25 07:59 IMPRESSION: Multilevel cervical spondylosis without acute fracture or trauma-related listhesis. Fleischner guidelines were followed. Electronically signed by: Abe Griffin MD 01/14/2025 09:50 AM EDT RP Head CT 01/14/25 08:30 IMPRESSION: No acute intracranial abnormality. No fracture seen. Electronically signed by: Chidi Rodriguez MD 01/17/2025 01:08 PM EDT RP Hip/Pelvis X-Ray 01/14/25 09:10 IMPRESSION: No acute fracture or dislocation. Electronically signed by: Abe Griffin MD 01/14/2025 10:35 AM EDT RP Medications Medications Current Medications Acetaminophen (Acetaminophen 325 Mg Tablet) 650 mg PO Q6H PRN PRN Reason: pain scale (1-10) Benztropine Mesylate (Benztropine Mesylate 1 Mg Tablet) 1 mg PO BEDTIME PRN PRN Reason: Extrapyramidal Effects Diazepam (Diazepam 10 Mg/2 Ml Cartridge) 5 mg IM TID PRN PRN Reason: PO refusal. HOLD FOR SEDATION Last Admin: 12/21/24 10:22 Dose: 5 mg Diazepam (Diazepam 5 Mg Tablet) 5 mg PO TID DESIRAE Last Admin: 03/09/25 08:20 Dose: 5 mg Empagliflozin (Empagliflozin 10 Mg Tablet) 10 mg PO DAILY [facility]IRAE Last Admin: 03/09/25 08:20 Dose: 10 mg Lisinopril (Lisinopril 20 Mg Tablet) 20 mg PO DAILY DESIRAE; Protocol Last Admin: 03/09/25 08:20 Dose: 20 mg Magnesium Hydroxide (Milk Of Magnesia 30 Ml Oral.Susp) 30 ml PO DAILY PRN PRN Reason: Constipation Last Admin: 02/04/25 14:59 Dose: 30 ml Metformin HCl (Metformin Hcl Er 500 Mg Tab.Er.24h) 1,000 mg PO DAILY DESIRAE Last Admin: 03/09/25 08:20 Dose: 1,000 mg Mirtazapine (Mirtazapine 30 Mg Tablet) 30 mg PO BEDTIME DESIRAE Last Admin: 03/08/25 21:13 Dose: 30 mg Nicotine Polacrilex (Nicotine Polacrilex 2 Mg Gum) 4 mg BUCCAL Q2H PRN PRN Reason: Nicotine Cravings Olanzapine (Olanzapine 10 Mg Tablet) 20 mg PO BEDTIME DESIRAE Last Admin: 03/08/25 21:11 Dose: 20 mg Olanzapine (Olanzapine 10 Mg Vial) 10 mg IM BID PRN PRN Reason: PO refusal Last Admin: 12/21/24 10:22 Dose: 10 mg Olanzapine (Olanzapine Odt 10 Mg Tab.Rapdis) 10 mg TRANSLINGU BID PRN PRN Reason: agitation Last Admin: 01/14/25 12:16 Dose: 10 mg Oxcarbazepine (Oxcarbazepine 300 Mg Tablet) 300 mg PO BEDTIME [facility]IR[facility] Last Admin: 03/08/25 21:13 Dose: 300 mg Primidone (Primidone 50 Mg Tablet) 25 mg PO BID [facility] Last Admin: 03/09/25 08:23 Dose: 25 mg Sertraline HCl (Sertraline Hcl 100 Mg Tablet) 100 mg PO BEDTIME DESIRAE Last Admin: 03/08/25 21:13 Dose: 100 mg Trazodone HCl (Trazodone Hcl 50 Mg Tablet) 50 mg PO BEDTIME PRN PRN Reason: Insomnia Allergies Allergies Allergy/AdvReac Type Severity Reaction Status Date / Time No Known Allergies Allergy Verified 10/14/24 18:14 [No Known Allergies*] Assessment & Plan Assessment & Plan (1) Mood disorder: Status: Acute Code(s): F39 - Unspecified mood [affective] disorder (2) Autism spectrum disorder: Status: Acute Code(s): F84.0 - Autistic disorder (3) Dementia: Status: Acute Code(s): F03.90 - Unspecified dementia, unspecified severity, without behavioral disturbance, psychotic disturbance, mood disturbance, and anxiety Plan Humza was admitted for safety and stabilization. His presentation is very similar to his last admission psychiatrically about a year ago and that is why his caregivers wanted to get ahead of things before he decompensated further. Current medications were reviewed and maintained. Contacts to be made with his treaters next week. 10/17: Continue current regimen and plans 10/19: Continue current tx plan and regime. 10/21: Memantine 5 mg daily- [facility], memory sx Abilify 2 mg daily-augment to antidepressants currently being used. 10/22 continue current tx plan -pt confused 10/23 Continue trials, regime and plan. 10/24: Continue regime and plan of care. 10/25 Abilify increased up to 5 mg. 10/26 keep on same treatment 10/27/24 continues with many complaints, no clear insight into self- 10/28 continue same treatment 10/29 increase Namenda to 5 mg p.o. b.i.d. and change Depakote to Depakene. Depakote level on 13/02 as per blood work of yesterday 10/30/24 - [employer] olanzapine = continue depakene as he did take 5 capsules this am- prn olanzapine given - this afternoon for behaviors on unit- 10/31/24 wrote for liquid depakote option if refuses capsules, also got prn olanzapine for throwing self on floor 11/01 keep same treatment 11/02 increase Zyprexa to 20 mg p.o. q.h.s. 11/03 keep same treatment. 11/04 discontinue Depakote and start Trileptal 300 mg p.o. b.i.d.. Her healthcare proxy will bring a copy of that we are going to invoke it 11/06 increase olanzapine to 20mg po qhs and 10mg po daily. 11/07 continue tx. 12/04 continue tx. 12/05: no changes 12/06 continue tx. 12/12: continue plan of care 12/13: continue tx 12/19 continue current tx plan 12/25: appearing sedated, more of a falls risk, poorer ability to do ADLs. decrease trileptal dosing from 600 BID to 300 BID for now. 12/26: less sedated than yesterday, continue current mgmt, including 1:1, until attending can see pt in the morning. 12/30: continues less sedated. minimally interactive. continue current mgmt. 12/31: per HCP, not at baseline, over-sedated. begin valium taper. decrease valium 5 TID to 4 TID for now. per HCP and SW, HCP has been affirmed in court. IM back-up orders in place and to be enforced by nursing staff. no aggressive or agitated behaviors. 01/02: Continue current regimen and plans Plan 1. Continue with olanzapine 10 mg p.o. q.a.m. and 20 mg p.o. q.h.s., he refused p.o. he received olanzapine IM. 2. Continue with Valium 5 mg p.o. t.i.d. if he refuses he will get Valium IM. 3. We will encourage compliance. The patient had been noncompliant with sertraline, he remains dysphoric. 4. The patient has a healthcare proxy who was affirmed by court, and they want us to medicate him even if the patient does not want to be compliant. 5. At this moment the patient is slightly over-sedated with EPS but we will keep the same dose of antipsychotics since his violence has improved. 01/03/25 Continue plan of care Reassess treatment plan which includes IM medication patient has been much less aggressive than he has in the past Unclear discharge plan at this point 01/04/2025 Patient taking Valium and olanzapine regularly has IM prescribed if refuses intermittently taking medication for diabetes hypertension 01/05/25 Cont medicationhas been stabilizing try and d/c meds that are not esential simplify regimen 01/06/25 stop namenda monitor sugar / bp encourage med acceptance cont valium olanzapine 01/08/2025 Continue olanzapine Valium metformin try and taper and simplify medication as tolerated discharge planning monitor response to change in medication 01/09/25 Try and simplify med regimen d/c planning 01/11/2025 Patient generally more cooperative not agitated generally monitor blood sugar and blood pressure intermittently refuses some doses of metformin 01/12/25 Pt seen later in day seemed stable flat some balance problems noted lowwer trileptal and primidone ck ortho vs dailypt consult for balance 01/13/2025 Patient improving less reactive has not been aggressive more cooperative with treatment and medication. Discharge planning 01/14: fell this morning, per head/c-spine CT and pelvic XR, no osseus injuries. pt appears as at recent mental status. no complaints or requests other than for wheelchair. pt will have 1:1 for ambulation for now. continue current psychopharm mgmt. 01/15: Continue current management and treatment plan. 01/16: continue current management and treatment plan. 01/17 keep same treatment. 01/18 keep same treatment 01/19 keep same treatment 01/20 keep same treatment 01/21 keep same treatment 01/22: calm, cooperative, flat. no questions or complaints. stable presentation. continue current mgmt. 01/23: no change, continue current mgmt. 01/24: stable. continue current mgmt. reps from [facility] coming to [facility] pt for placement today. 01/25/2025 Patient in behavioral control vital signs stable generally accepting treatment continue discharge planning 01/26/2025 Patient generally cooperative seen in the milieu no aggression suicidality or her problematic behavior. Discharge planning strongly urged transition 01/27/2025 Patient continues to be generally stabilizing not combative agitated or threatening has remained generally calm seems safe for discharge planning much improved over time 01/28/2025 Patient seen psychiatric follow-up patient has significantly improved over the months he is calm cooperative seen watching television somewhat social at times not aggressive or combative 01/29 Continue current regime/plan. Improved. 01/31: stably improved. awaiting placement. continue current mgmt. 02/01: stable. continue current mgmt. awaiting placement. 02/02: no change in presentation or plan. 02/03: stable. continue current mgmt. 02/04/2025 Patient seen psychiatric follow-up no current behavioral difficulties no current ability to place patient in a less restricted setting 02/06: no change in presentation. continue current mgmt. 02/07/25 cont d/c planning pt has been tentatively accepted no less restrictive setting currently available 02/08/2025 Continue discharge planning patient tentatively accepted no funding source available at this time no less restrictive setting available 02/14 Patient tells instructional writer he is hanging in there he says it can be hard sometimes to do so but it is overall going okay. Patient took all medications today; nurse however reports that recently he seemed a little suspicious, on the verge of picking over medications. -vitals WNL -no new labs 02/15/2025 Patient states he is doing okay understands he is waiting for some form of placement. Accepting treatment vital signs unremarkable continue plan of care discharge plan 02/16/2025 No major changes patient has been waiting for placement no less restrictive setting available at this time continues to be cooperative with care no significant behavioral difficulties 02/18/2025 Vital signs stable no need to change current regimen continue discharge planning. No less restrictive setting presently available for discharge 02/19 continue treatment plan 02/22 continue tx. 02/24: no change in presentation. continue current mgmt. 5/: no change in presentation. continue current mgmt. 5/: drawn and withdrawn. c/o diplopia both with and without corrective lenses. continue current mgmt. 02/28/2025 Patient calm some anxiety noted future oriented continue plan of care 03/03: stable. continue current mgmt. 03/05: Continue current regimen and plans 03/06: Continue current regimen and plans 03/07 continue tx. 03/08: anxiety in good control. in milieu watching TV, appropriately responds to compliment on his shirt. awaiting placement. Reason for continued inpatient stay Substantial Risk for: inability to function and rapid decompensation Time Spent With Patient Time: Total time managing care of this patient today ____ minutes.
[2025-03-09 20:00] VITALS: BP 110/62; PULSE 86; RESP 18; TEMP 36.4; O2SAT 97
[2025-03-09] MEDS: OLANZapine 10 MG TABLET 20 MG PO (20:27)
[2025-03-09] MEDS: Mirtazapine 30 MG TABLET PO (20:27)
[2025-03-09] MEDS: OXcarbazepine 300 MG TABLET PO (20:27)
[2025-03-09] MEDS: Sertraline HCL 100 MG TABLET PO (20:28)
[2025-03-10 08:00] VITALS: BP 129/79; PULSE 80; RESP 18; TEMP 36.9; O2SAT 98
[2025-03-10] MEDS: metFORMIN HCl ER 500 MG TAB.ER.24H 1000 MG PO (09:16)
[2025-03-10] MEDS: Empagliflozin 10 MG TABLET PO (09:16)
[2025-03-10] MEDS: Primidone 50 MG TABLET 25 MG PO ×2 (09:16→20:52)
[2025-03-10] MEDS: lisinopriL 20 MG TABLET PO (09:16)
[2025-03-10] MEDS: diazePAM 5 MG TABLET PO ×3 (09:16→20:51)
--- NOTE | 2025-03-10 10:13 | P.PNPSI_ITS ---
Subjective Subjective Reason For Visit: Anxiety, mood disorder, ASD Diagnostics Vital Signs (24Hr): Vital Signs - 24 hr 03/09/25 20:00 03/10/25 08:00 Temperature 97.5 F 98.4 F Pulse Rate 86 80 Respiratory Rate 18 18 Blood Pressure 110/62 129/79 Pulse Oximetry 97 98 Oxygen Delivery Method Room Air Room Air BMI result Body Mass Index 26.7 Labs 10/28/24 09:10 03/04/25 07:52 Imaging Radiology Impressions: ITS Impressions Hip X-Ray 01/12/25 13:30 IMPRESSION: No evidence of fracture of the bilateral hips. Electronically signed by: Kaushal Soni MD 01/12/2025 01:54 PM EDT RP Cervical Spine CT 01/14/25 07:59 IMPRESSION: Multilevel cervical spondylosis without acute fracture or trauma-related listhesis. Fleischner guidelines were followed. Electronically signed by: Abe Griffin MD 01/14/2025 09:50 AM EDT RP Head CT 01/14/25 08:30 IMPRESSION: No acute intracranial abnormality. No fracture seen. Electronically signed by: Chidi Rodriguez MD 01/17/2025 01:08 PM EDT RP Hip/Pelvis X-Ray 01/14/25 09:10 IMPRESSION: No acute fracture or dislocation. Electronically signed by: Abe Griffin MD 01/14/2025 10:35 AM EDT RP Medications Medications Current Medications Acetaminophen (Acetaminophen 325 Mg Tablet) 650 mg PO Q6H PRN PRN Reason: pain scale (1-10) Benztropine Mesylate (Benztropine Mesylate 1 Mg Tablet) 1 mg PO BEDTIME PRN PRN Reason: Extrapyramidal Effects Diazepam (Diazepam 10 Mg/2 Ml Cartridge) 5 mg IM TID PRN PRN Reason: PO refusal. HOLD FOR SEDATION Last Admin: 12/21/24 10:22 Dose: 5 mg Diazepam (Diazepam 5 Mg Tablet) 5 mg PO TID [facility] Last Admin: 03/10/25 09:16 Dose: 5 mg Empagliflozin (Empagliflozin 10 Mg Tablet) 10 mg PO DAILY [facility] Last Admin: 03/10/25 09:16 Dose: 10 mg Lisinopril (Lisinopril 20 Mg Tablet) 20 mg PO DAILY DESIRAE; Protocol Last Admin: 03/10/25 09:16 Dose: 20 mg Magnesium Hydroxide (Milk Of Magnesia 30 Ml Oral.Susp) 30 ml PO DAILY PRN PRN Reason: Constipation Last Admin: 02/04/25 14:59 Dose: 30 ml Metformin HCl (Metformin Hcl Er 500 Mg Tab.Er.24h) 1,000 mg PO DAILY DESIRAE Last Admin: 03/10/25 09:16 Dose: 1,000 mg Mirtazapine (Mirtazapine 30 Mg Tablet) 30 mg PO BEDTIME DESIRAE Last Admin: 03/09/25 20:27 Dose: 30 mg Nicotine Polacrilex (Nicotine Polacrilex 2 Mg Gum) 4 mg BUCCAL Q2H PRN PRN Reason: Nicotine Cravings Olanzapine (Olanzapine 10 Mg Tablet) 20 mg PO BEDTIME DESIRAE Last Admin: 03/09/25 20:27 Dose: 20 mg Olanzapine (Olanzapine 10 Mg Vial) 10 mg IM BID PRN PRN Reason: PO refusal Last Admin: 12/21/24 10:22 Dose: 10 mg Olanzapine (Olanzapine Odt 10 Mg Tab.Rapdis) 10 mg TRANSLINGU BID PRN PRN Reason: agitation Last Admin: 01/14/25 12:16 Dose: 10 mg Oxcarbazepine (Oxcarbazepine 300 Mg Tablet) 300 mg PO BEDTIME DESIRAE Last Admin: 03/09/25 20:27 Dose: 300 mg Primidone (Primidone 50 Mg Tablet) 25 mg PO BID DESIRAE Last Admin: 03/10/25 09:16 Dose: 25 mg Sertraline HCl (Sertraline Hcl 100 Mg Tablet) 100 mg PO BEDTIME DESIRAE Last Admin: 03/09/25 20:28 Dose: 100 mg Trazodone HCl (Trazodone Hcl 50 Mg Tablet) 50 mg PO BEDTIME PRN PRN Reason: Insomnia Allergies Allergies Allergy/AdvReac Type Severity Reaction Status Date / Time No Known Allergies Allergy Verified 10/14/24 18:14 [No Known Allergies*] Assessment & Plan Assessment & Plan (1) Mood disorder: Status: Acute Code(s): F39 - Unspecified mood [affective] disorder (2) Autism spectrum disorder: Status: Acute Code(s): F84.0 - Autistic disorder (3) Dementia: Status: Acute Code(s): F03.90 - Unspecified dementia, unspecified severity, without behavioral disturbance, psychotic disturbance, mood disturbance, and anxiety Plan Humza was admitted for safety and stabilization. His presentation is very similar to his last admission psychiatrically about a year ago and that is why his caregivers wanted to get ahead of things before he decompensated further. Current medications were reviewed and maintained. Contacts to be made with his treaters next week. 10/17: Continue current regimen and plans 10/19: Continue current tx plan and regime. 10/21: Memantine 5 mg daily- [facility], memory sx Abilify 2 mg daily-augment to antidepressants currently being used. 10/22 continue current tx plan -pt confused 10/23 Continue trials, regime and plan. 10/24: Continue regime and plan of care. 10/25 Abilify increased up to 5 mg. 10/26 keep on same treatment 10/27/24 continues with many complaints, no clear insight into self- 10/28 continue same treatment 10/29 increase Namenda to 5 mg p.o. b.i.d. and change Depakote to Depakene. Depakote level on 13/02 as per blood work of yesterday 10/30/24 - [employer] olanzapine = continue depakene as he did take 5 capsules this am- prn olanzapine given - this afternoon for behaviors on unit- 10/31/24 wrote for liquid depakote option if refuses capsules, also got prn olanzapine for throwing self on floor 11/01 keep same treatment 11/02 increase Zyprexa to 20 mg p.o. q.h.s. 11/03 keep same treatment. 11/04 discontinue Depakote and start Trileptal 300 mg p.o. b.i.d.. Her healthcare proxy will bring a copy of that we are going to invoke it 11/06 increase olanzapine to 20mg po qhs and 10mg po daily. 11/07 continue tx. 12/04 continue tx. 12/05: no changes 12/06 continue tx. 12/12: continue plan of care 12/13: continue tx 12/19 continue current tx plan 12/25: appearing sedated, more of a falls risk, poorer ability to do ADLs. decrease trileptal dosing from 600 BID to 300 BID for now. 3/2: less sedated than yesterday, continue current mgmt, including 1:1, until attending can see pt in the morning. 12/30: continues less sedated. minimally interactive. continue current mgmt. 12/31: per HCP, not at baseline, over-sedated. begin valium taper. decrease valium 5 TID to 4 TID for now. per HCP and SW, HCP has been affirmed in court. IM back-up orders in place and to be enforced by nursing staff. no aggressive or agitated behaviors. 01/02: Continue current regimen and plans Plan 1. Continue with olanzapine 10 mg p.o. q.a.m. and 20 mg p.o. q.h.s., he refused p.o. he received olanzapine IM. 2. Continue with Valium 5 mg p.o. t.i.d. if he refuses he will get Valium IM. 3. We will encourage compliance. The patient had been noncompliant with sertraline, he remains dysphoric. 4. The patient has a healthcare proxy who was affirmed by court, and they want us to medicate him even if the patient does not want to be compliant. 5. At this moment the patient is slightly over-sedated with EPS but we will keep the same dose of antipsychotics since his violence has improved. 01/03/25 Continue plan of care Reassess treatment plan which includes IM medication patient has been much less aggressive than he has in the past Unclear discharge plan at this point 01/04/2025 Patient taking Valium and olanzapine regularly has IM prescribed if refuses intermittently taking medication for diabetes hypertension 01/05/25 Cont medicationhas been stabilizing try and d/c meds that are not esential simplify regimen 01/06/25 stop namenda monitor sugar / bp encourage med acceptance cont valium olanzapine 01/08/2025 Continue olanzapine Valium metformin try and taper and simplify medication as tolerated discharge planning monitor response to change in medication 01/09/25 Try and simplify med regimen d/c planning 01/11/2025 Patient generally more cooperative not agitated generally monitor blood sugar and blood pressure intermittently refuses some doses of metformin 01/12/25 Pt seen later in day seemed stable flat some balance problems noted lowwer trileptal and primidone ck ortho vs dailypt consult for balance 01/13/2025 Patient improving less reactive has not been aggressive more cooperative with treatment and medication. Discharge planning 01/14: fell this morning, per head/c-spine CT and pelvic XR, no osseus injuries. pt appears as at recent mental status. no complaints or requests other than for wheelchair. pt will have 1:1 for ambulation for now. continue current psychopharm mgmt. 01/15: Continue current management and treatment plan. 01/16: continue current management and treatment plan. 01/17 keep same treatment. 01/18 keep same treatment 01/19 keep same treatment 01/20 keep same treatment 01/21 keep same treatment 01/22: calm, cooperative, flat. no questions or complaints. stable presentation. continue current mgmt. 01/23: no change, continue current mgmt. 01/24: stable. continue current mgmt. reps from [facility] coming to [facility] pt for placement today. 01/25/2025 Patient in behavioral control vital signs stable generally accepting treatment continue discharge planning 01/26/2025 Patient generally cooperative seen in the milieu no aggression suicidality or her problematic behavior. Discharge planning strongly urged transition 01/27/2025 Patient continues to be generally stabilizing not combative agitated or threatening has remained generally calm seems safe for discharge planning much improved over time 01/28/2025 Patient seen psychiatric follow-up patient has significantly improved over the months he is calm cooperative seen watching television somewhat social at times not aggressive or combative 01/29 Continue current regime/plan. Improved. 01/31: stably improved. awaiting placement. continue current mgmt. 02/01: stable. continue current mgmt. awaiting placement. 02/02: no change in presentation or plan. 02/03: stable. continue current mgmt. 02/04/2025 Patient seen psychiatric follow-up no current behavioral difficulties no current ability to place patient in a less restricted setting 02/06: no change in presentation. continue current mgmt. 02/07/25 cont d/c planning pt has been tentatively accepted no less restrictive setting currently available 02/08/2025 Continue discharge planning patient tentatively accepted no funding source available at this time no less restrictive setting available 02/14 Patient tells life underwriter he is hanging in there he says it can be hard sometimes to do so but it is overall going okay. Patient took all medications today; nurse however reports that recently he seemed a little suspicious, on the verge of picking over medications. -vitals WNL -no new labs 02/15/2025 Patient states he is doing okay understands he is waiting for some form of placement. Accepting treatment vital signs unremarkable continue plan of care discharge plan 02/16/2025 No major changes patient has been waiting for placement no less restrictive setting available at this time continues to be cooperative with care no significant behavioral difficulties 02/18/2025 Vital signs stable no need to change current regimen continue discharge planning. No less restrictive setting presently available for discharge 02/19 continue treatment plan 02/22 continue tx. 5/: no change in presentation. continue current mgmt. 5/3: no change in presentation. continue current mgmt. 5/4: drawn and withdrawn. c/o diplopia both with and without corrective lenses. continue current mgmt. 02/28/2025 Patient calm some anxiety noted future oriented continue plan of care 03/03: stable. continue current mgmt. 5: Continue current regimen and plans 03/06: Continue current regimen and plans 03/07 continue tx. 03/08: anxiety in good control. in milieu watching TV, appropriately responds to compliment on his shirt. awaiting placement. Time Spent With Patient Time: Total time managing care of this patient today ____ minutes.
[2025-03-10 10:29] VITALS: BMI 26.7
--- NOTE | 2025-03-10 15:10 | P.PNPSI_ITS ---
Subjective Subjective Date of Service: 03/10/25 Reason For Visit: Anxiety, mood disorder, ASD Interim History: no change in presentation. being interviewed by other facility which may take patient. Mental Status Exam Mental Status Exam Patient Appearance: Appropriate Patient Orientation: Person and Situation Level of Consciousness: Awake and Appropriate Patient Behavior: Guarded and Passive Mood Description: Withdrawn ( ok ) Affect Description: Withdrawn Patient Cognition Impaired: Yes Ability to Follow Directions: Fair Speech Pattern: Clear Hallucinations: None Delusions: Not Present Thought Process: Distracted and Slowed Thinking Thought Content: positive for Mackey and positive for Poverty of Content Judgement: Poor Diagnostics Vital Signs (24Hr): Vital Signs - 24 hr 03/09/25 20:00 03/10/25 08:00 Temperature 97.5 F 98.4 F Pulse Rate 86 80 Respiratory Rate 18 18 Blood Pressure 110/62 129/79 Pulse Oximetry 97 98 Oxygen Delivery Method Room Air Room Air BMI result Body Mass Index 26.7 Labs 10/28/24 09:10 03/04/25 07:52 Imaging Radiology Impressions: ITS Impressions Hip X-Ray 01/12/25 13:30 IMPRESSION: No evidence of fracture of the bilateral hips. Electronically signed by: Kaushal Soni MD 01/12/2025 01:54 PM EDT RP Cervical Spine CT 01/14/25 07:59 IMPRESSION: Multilevel cervical spondylosis without acute fracture or trauma-related listhesis. Fleischner guidelines were followed. Electronically signed by: Abe Griffin MD 01/14/2025 09:50 AM EDT RP Head CT 01/14/25 08:30 IMPRESSION: No acute intracranial abnormality. No fracture seen. Electronically signed by: Chidi Rodriguez MD 01/17/2025 01:08 PM EDT RP Hip/Pelvis X-Ray 01/14/25 09:10 IMPRESSION: No acute fracture or dislocation. Electronically signed by: Abe Griffin MD 01/14/2025 10:35 AM EDT RP Medications Medications Current Medications Acetaminophen (Acetaminophen 325 Mg Tablet) 650 mg PO Q6H PRN PRN Reason: pain scale (1-10) Benztropine Mesylate (Benztropine Mesylate 1 Mg Tablet) 1 mg PO BEDTIME PRN PRN Reason: Extrapyramidal Effects Diazepam (Diazepam 10 Mg/2 Ml Cartridge) 5 mg IM TID PRN PRN Reason: PO refusal. HOLD FOR SEDATION Last Admin: 12/21/24 10:22 Dose: 5 mg Diazepam (Diazepam 5 Mg Tablet) 5 mg PO TID DESIRAE Last Admin: 03/10/25 09:16 Dose: 5 mg Empagliflozin (Empagliflozin 10 Mg Tablet) 10 mg PO DAILY DESIRAE Last Admin: 03/10/25 09:16 Dose: 10 mg Lisinopril (Lisinopril 20 Mg Tablet) 20 mg PO DAILY DESIRAE; Protocol Last Admin: 03/10/25 09:16 Dose: 20 mg Magnesium Hydroxide (Milk Of Magnesia 30 Ml Oral.Susp) 30 ml PO DAILY PRN PRN Reason: Constipation Last Admin: 02/04/25 14:59 Dose: 30 ml Metformin HCl (Metformin Hcl Er 500 Mg Tab.Er.24h) 1,000 mg PO DAILY DESIRAE Last Admin: 03/10/25 09:16 Dose: 1,000 mg Mirtazapine (Mirtazapine 30 Mg Tablet) 30 mg PO BEDTIME DESIRAE Last Admin: 03/09/25 20:27 Dose: 30 mg Nicotine Polacrilex (Nicotine Polacrilex 2 Mg Gum) 4 mg BUCCAL Q2H PRN PRN Reason: Nicotine Cravings Olanzapine (Olanzapine 10 Mg Tablet) 20 mg PO BEDTIME DESIRAE Last Admin: 03/09/25 20:27 Dose: 20 mg Olanzapine (Olanzapine 10 Mg Vial) 10 mg IM BID PRN PRN Reason: PO refusal Last Admin: 12/21/24 10:22 Dose: 10 mg Olanzapine (Olanzapine Odt 10 Mg Tab.Rapdis) 10 mg TRANSLINGU BID PRN PRN Reason: agitation Last Admin: 01/14/25 12:16 Dose: 10 mg Oxcarbazepine (Oxcarbazepine 300 Mg Tablet) 300 mg PO BEDTIME DESIRAE Last Admin: 03/09/25 20:27 Dose: 300 mg Primidone (Primidone 50 Mg Tablet) 25 mg PO BID DESIRAE Last Admin: 03/10/25 09:16 Dose: 25 mg Sertraline HCl (Sertraline Hcl 100 Mg Tablet) 100 mg PO BEDTIME DESIRAE Last Admin: 03/09/25 20:28 Dose: 100 mg Trazodone HCl (Trazodone Hcl 50 Mg Tablet) 50 mg PO BEDTIME PRN PRN Reason: Insomnia Allergies Allergies Allergy/AdvReac Type Severity Reaction Status Date / Time No Known Allergies Allergy Verified 10/14/24 18:14 [No Known Allergies*] Assessment & Plan Assessment & Plan (1) Mood disorder: Status: Acute Code(s): F39 - Unspecified mood [affective] disorder (2) Autism spectrum disorder: Status: Acute Code(s): F84.0 - Autistic disorder (3) Dementia: Status: Acute Code(s): F03.90 - Unspecified dementia, unspecified severity, without behavioral disturbance, psychotic disturbance, mood disturbance, and anxiety Plan Humza was admitted for safety and stabilization. His presentation is very similar to his last admission psychiatrically about a year ago and that is why his caregivers wanted to get ahead of things before he decompensated further. Current medications were reviewed and maintained. Contacts to be made with his treaters next week. 10/17: Continue current regimen and plans 10/19: Continue current tx plan and regime. 10/21: Memantine 5 mg daily- [facility], memory sx Abilify 2 mg daily-augment to antidepressants currently being used. 10/22 continue current tx plan -pt confused 10/23 Continue trials, regime and plan. 10/24: Continue regime and plan of care. 10/25 Abilify increased up to 5 mg. 10/26 keep on same treatment 10/27/24 continues with many complaints, no clear insight into self- 10/28 continue same treatment 10/29 increase Namenda to 5 mg p.o. b.i.d. and change Depakote to Depakene. Depakote level on 13/02 as per blood work of yesterday 10/30/24 - me [employer] olanzapine = continue depakene as he did take 5 capsules this am- prn olanzapine given - this afternoon for behaviors on unit- 10/31/24 wrote for liquid depakote option if refuses capsules, also got prn olanzapine for throwing self on floor 11/01 keep same treatment 11/02 increase Zyprexa to 20 mg p.o. q.h.s. 11/03 keep same treatment. 11/04 discontinue Depakote and start Trileptal 300 mg p.o. b.i.d.. Her healthcare proxy will bring a copy of that we are going to invoke it 11/06 increase olanzapine to 20mg po qhs and 10mg po daily. 11/07 continue tx. 12/04 continue tx. 12/05: no changes 12/06 continue tx. 12/12: continue plan of care 12/13: continue tx 12/19 continue current tx plan 12/25: appearing sedated, more of a falls risk, poorer ability to do ADLs. decrease trileptal dosing from 600 BID to 300 BID for now. 12/26: less sedated than yesterday, continue current mgmt, including 1:1, until attending can see pt in the morning. 12/30: continues less sedated. minimally interactive. continue current mgmt. 12/31: per HCP, not at baseline, over-sedated. begin valium taper. decrease valium 5 TID to 4 TID for now. per HCP and SW, HCP has been affirmed in court. IM back-up orders in place and to be enforced by nursing staff. no aggressive or agitated behaviors. 01/02: Continue current regimen and plans Plan 1. Continue with olanzapine 10 mg p.o. q.a.m. and 20 mg p.o. q.h.s., he refused p.o. he received olanzapine IM. 2. Continue with Valium 5 mg p.o. t.i.d. if he refuses he will get Valium IM. 3. We will encourage compliance. The patient had been noncompliant with sertraline, he remains dysphoric. 4. The patient has a healthcare proxy who was affirmed by court, and they want us to medicate him even if the patient does not want to be compliant. 5. At this moment the patient is slightly over-sedated with EPS but we will keep the same dose of antipsychotics since his violence has improved. 01/03/25 Continue plan of care Reassess treatment plan which includes IM medication patient has been much less aggressive than he has in the past Unclear discharge plan at this point 01/04/2025 Patient taking Valium and olanzapine regularly has IM prescribed if refuses intermittently taking medication for diabetes hypertension 01/05/25 Cont medicationhas been stabilizing try and d/c meds that are not esential simplify regimen 01/06/25 stop namenda monitor sugar / bp encourage med acceptance cont valium olanzapine 01/08/2025 Continue olanzapine Valium metformin try and taper and simplify medication as tolerated discharge planning monitor response to change in medication 01/09/25 Try and simplify med regimen d/c planning 01/11/2025 Patient generally more cooperative not agitated generally monitor blood sugar and blood pressure intermittently refuses some doses of metformin 01/12/25 Pt seen later in day seemed stable flat some balance problems noted lowwer trileptal and primidone ck ortho vs dailypt consult for balance 01/13/2025 Patient improving less reactive has not been aggressive more cooperative with treatment and medication. Discharge planning 01/14: fell this morning, per head/c-spine CT and pelvic XR, no osseus injuries. pt appears as at recent mental status. no complaints or requests other than for wheelchair. pt will have 1:1 for ambulation for now. continue current psychopharm mgmt. 01/15: Continue current management and treatment plan. 01/16: continue current management and treatment plan. 01/17 keep same treatment. 01/18 keep same treatment 01/19 keep same treatment 01/20 keep same treatment 01/21 keep same treatment 01/22: calm, cooperative, flat. no questions or complaints. stable presentation. continue current mgmt. 01/23: no change, continue current mgmt. 01/24: stable. continue current mgmt. reps from [facility] coming to [facility] pt for placement today. 01/25/2025 Patient in behavioral control vital signs stable generally accepting treatment continue discharge planning 01/26/2025 Patient generally cooperative seen in the milieu no aggression suicidality or her problematic behavior. Discharge planning strongly urged transition 01/27/2025 Patient continues to be generally stabilizing not combative agitated or threatening has remained generally calm seems safe for discharge planning much improved over time 01/28/2025 Patient seen psychiatric follow-up patient has significantly improved over the months he is calm cooperative seen watching television somewhat social at times not aggressive or combative 01/29 Continue current regime/plan. Improved. 01/31: stably improved. awaiting placement. continue current mgmt. 02/01: stable. continue current mgmt. awaiting placement. 02/02: no change in presentation or plan. 02/03: stable. continue current mgmt. 02/04/2025 Patient seen psychiatric follow-up no current behavioral difficulties no current ability to place patient in a less restricted setting 02/06: no change in presentation. continue current mgmt. 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 Patient took all medications today; nurse however reports that recently he seemed a little suspicious, on the verge of picking over medications. -vitals WNL -no new labs 02/15/2025 Patient states he is doing okay understands he is waiting for some form of placement. Accepting treatment vital signs unremarkable continue plan of care discharge plan 02/16/2025 No major changes patient has been waiting for placement no less restrictive setting available at this time continues to be cooperative with care no significant behavioral difficulties 02/18/2025 Vital signs stable no need to change current regimen continue discharge planning. No less restrictive setting presently available for discharge 02/19 continue treatment plan 02/22 continue tx. 02/24: no change in presentation. continue current mgmt. 5/: no change in presentation. continue current mgmt. 5/: drawn and withdrawn. c/o diplopia both with and without corrective lenses. continue current mgmt. 02/28/2025 Patient calm some anxiety noted future oriented continue plan of care 03/03: stable. continue current mgmt. 03/05: Continue current regimen and plans 03/06: Continue current regimen and plans 03/07 continue tx. 03/08: anxiety in good control. in milieu watching TV, appropriately responds to compliment on his shirt. awaiting placement. 03/10: no change in presentation. resting in bed, mild anxiety, blurry vision. Reason for continued inpatient stay Substantial Risk for: inability to function and rapid decompensation Time Spent With Patient Time: Total time managing care of this patient today ____ minutes.
[2025-03-10 20:00] VITALS: BP 114/73; PULSE 72; RESP 16; TEMP 36.6; O2SAT 98
[2025-03-10] MEDS: Sertraline HCL 100 MG TABLET PO (20:51)
[2025-03-10] MEDS: OLANZapine 10 MG TABLET 20 MG PO (20:51)
[2025-03-10] MEDS: OXcarbazepine 300 MG TABLET PO (20:52)
[2025-03-10] MEDS: Mirtazapine 30 MG TABLET PO (20:52)
[2025-03-11] MEDS: Primidone 50 MG TABLET 25 MG PO ×2 (07:52→21:05)
[2025-03-11] MEDS: metFORMIN HCl ER 500 MG TAB.ER.24H 1000 MG PO (07:52)
[2025-03-11] MEDS: Empagliflozin 10 MG TABLET PO (07:52)
[2025-03-11] MEDS: diazePAM 5 MG TABLET PO ×3 (07:53→21:06)
[2025-03-11 07:54] VITALS: BP 123/72; PULSE 82; RESP 20; TEMP 36.7; O2SAT 99
[2025-03-11] MEDS: lisinopriL 20 MG TABLET PO ×2 (07:54→07:55)
[2025-03-11 08:43] LABS: Creatinine Clr Calc Pharmacy 77.6; Estimated Glomerular Filt Rate > 60
--- NOTE | 2025-03-11 14:51 | P.PNPSI_ITS ---
Subjective Subjective Date of Service: 03/11/25 Reason For Visit: Anxiety, mood disorder, ASD Interim History: no change in presentation. per staff, dep/anx 3. attending groups. no change in presentation. +AH sometimes not nice. Mental Status Exam Mental Status Exam Patient Appearance: Appropriate Patient Orientation: Person and Situation Level of Consciousness: Awake and Appropriate Patient Behavior: Guarded and Passive Mood Description: Withdrawn ( ok ) Affect Description: Withdrawn Patient Cognition Impaired: Yes Ability to Follow Directions: Fair Speech Pattern: Clear Hallucinations: None Delusions: Not Present Thought Process: Distracted and Slowed Thinking Thought Content: positive for [place] and positive for Poverty of Content Judgement: Poor Diagnostics Vital Signs (24Hr): Vital Signs - 24 hr 03/10/25 20:00 03/11/25 07:54 03/11/25 07:54 Temperature 98 F 98.1 F Pulse Rate 72 82 Respiratory Rate 16 20 Blood Pressure 114/73 123/72 123/72 Pulse Oximetry 98 99 Oxygen Delivery Method Room Air Room Air BMI result Body Mass Index 26.7 Labs 10/28/24 09:10 03/11/25 07:30 Labs: Laboratory Results - last 48 hr 03/11/25 07:30 Creatinine 0.93 Estim Creat Clear Calc 77.6 Estimated GFR > 60 Imaging Radiology Impressions: ITS Impressions Hip X-Ray 01/12/25 13:30 IMPRESSION: No evidence of fracture of the bilateral hips. Electronically signed by: Kaushal Soni MD 01/12/2025 01:54 PM EDT RP Cervical Spine CT 01/14/25 07:59 IMPRESSION: Multilevel cervical spondylosis without acute fracture or trauma-related listhesis. Fleischner guidelines were followed. Electronically signed by: Abe Griffin MD 01/14/2025 09:50 AM EDT RP Head CT 01/14/25 08:30 IMPRESSION: No acute intracranial abnormality. No fracture seen. Electronically signed by: Chidi Rodriguez MD 01/17/2025 01:08 PM EDT RP Hip/Pelvis X-Ray 01/14/25 09:10 IMPRESSION: No acute fracture or dislocation. Electronically signed by: Abe Griffin MD 01/14/2025 10:35 AM EDT RP Medications Medications Current Medications Acetaminophen (Acetaminophen 325 Mg Tablet) 650 mg PO Q6H PRN PRN Reason: pain scale (1-10) Benztropine Mesylate (Benztropine Mesylate 1 Mg Tablet) 1 mg PO BEDTIME PRN PRN Reason: Extrapyramidal Effects Diazepam (Diazepam 10 Mg/2 Ml Cartridge) 5 mg IM TID PRN PRN Reason: PO refusal. HOLD FOR SEDATION Last Admin: 12/21/24 10:22 Dose: 5 mg Diazepam (Diazepam 5 Mg Tablet) 5 mg PO TID DESIRAE Last Admin: 03/11/25 07:53 Dose: 5 mg Empagliflozin (Empagliflozin 10 Mg Tablet) 10 mg PO DAILY DESIRAE Last Admin: 03/11/25 07:52 Dose: 10 mg Lisinopril (Lisinopril 20 Mg Tablet) 20 mg PO DAILY DESIRAE; Protocol Last Admin: 03/11/25 07:55 Dose: 20 mg Magnesium Hydroxide (Milk Of Magnesia 30 Ml Oral.Susp) 30 ml PO DAILY PRN PRN Reason: Constipation Last Admin: 02/04/25 14:59 Dose: 30 ml Metformin HCl (Metformin Hcl Er 500 Mg Tab.Er.24h) 1,000 mg PO DAILY DESIRAE Last Admin: 03/11/25 07:52 Dose: 1,000 mg Mirtazapine (Mirtazapine 30 Mg Tablet) 30 mg PO BEDTIME DESIRAE Last Admin: 03/10/25 20:52 Dose: 30 mg Nicotine Polacrilex (Nicotine Polacrilex 2 Mg Gum) 4 mg BUCCAL Q2H PRN PRN Reason: Nicotine Cravings Olanzapine (Olanzapine 10 Mg Tablet) 20 mg PO BEDTIME DESIRAE Last Admin: 03/10/25 20:51 Dose: 20 mg Olanzapine (Olanzapine 10 Mg Vial) 10 mg IM BID PRN PRN Reason: PO refusal Last Admin: 12/21/24 10:22 Dose: 10 mg Olanzapine (Olanzapine Odt 10 Mg Tab.Rapdis) 10 mg TRANSLINGU BID PRN PRN Reason: agitation Last Admin: 01/14/25 12:16 Dose: 10 mg Oxcarbazepine (Oxcarbazepine 300 Mg Tablet) 300 mg PO BEDTIME DESIRAE Last Admin: 03/10/25 20:52 Dose: 300 mg Primidone (Primidone 50 Mg Tablet) 25 mg PO BID DESIRAE Last Admin: 03/11/25 07:52 Dose: 25 mg Sertraline HCl (Sertraline Hcl 100 Mg Tablet) 100 mg PO BEDTIME DESIRAE Last Admin: 03/10/25 20:51 Dose: 100 mg Trazodone HCl (Trazodone Hcl 50 Mg Tablet) 50 mg PO BEDTIME PRN PRN Reason: Insomnia Allergies Allergies Allergy/AdvReac Type Severity Reaction Status Date / Time No Known Allergies Allergy Verified 10/14/24 18:14 [No Known Allergies*] Assessment & Plan Assessment & Plan (1) Mood disorder: Status: Acute Code(s): F39 - Unspecified mood [affective] disorder (2) Autism spectrum disorder: Status: Acute Code(s): F84.0 - Autistic disorder (3) Dementia: Status: Acute Code(s): F03.90 - Unspecified dementia, unspecified severity, without behavioral disturbance, psychotic disturbance, mood disturbance, and anxiety Plan Humza was admitted for safety and stabilization. His presentation is very similar to his last admission psychiatrically about a year ago and that is why his caregivers wanted to get ahead of things before he decompensated further. Current medications were reviewed and maintained. Contacts to be made with his treaters next week. 10/17: Continue current regimen and plans 10/19: Continue current tx plan and regime. 10/21: Memantine 5 mg daily- [facility], memory sx Abilify 2 mg daily-augment to antidepressants currently being used. 10/22 continue current tx plan -pt confused 10/23 Continue trials, regime and plan. 10/24: Continue regime and plan of care. 10/25 Abilify increased up to 5 mg. 10/26 keep on same treatment 10/27/24 continues with many complaints, no clear insight into self- 10/28 continue same treatment 10/29 increase Namenda to 5 mg p.o. b.i.d. and change Depakote to Depakene. 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 q.h.s. 11/03 keep same treatment. 11/04 discontinue Depakote and start Trileptal 300 mg p.o. b.i.d.. Her healthcare proxy will bring a copy of that we are going to invoke it 11/06 increase olanzapine to 20mg po qhs and 10mg po daily. 11/07 continue tx. 12/04 continue tx. 12/05: no changes 12/06 continue tx. 12/12: continue plan of care 12/13: continue tx 12/19 continue current tx plan 12/25: appearing sedated, more of a falls risk, poorer ability to do ADLs. decrease trileptal dosing from 600 BID to 300 BID for now. 12/26: less sedated than yesterday, continue current mgmt, including 1:1, until attending can see pt in the morning. 12/30: continues less sedated. minimally interactive. continue current mgmt. 12/31: per HCP, not at baseline, over-sedated. begin valium taper. decrease valium 5 TID to 4 TID for now. per HCP and SW, HCP has been affirmed in court. IM back-up orders in place and to be enforced by nursing staff. no aggressive or agitated behaviors. 01/02: Continue current regimen and plans Plan 1. Continue with olanzapine 10 mg p.o. q.a.m. and 20 mg p.o. q.h.s., he refused p.o. he received olanzapine IM. 2. Continue with Valium 5 mg p.o. t.i.d. if he refuses he will get Valium IM. 3. We will encourage compliance. The patient had been noncompliant with sertraline, he remains dysphoric. 4. The patient has a healthcare proxy who was affirmed by court, and they want us to medicate him even if the patient does not want to be compliant. 5. At this moment the patient is slightly over-sedated with EPS but we will keep the same dose of antipsychotics since his violence has improved. 01/03/25 Continue plan of care Reassess treatment plan which includes IM medication patient has been much less aggressive than he has in the past Unclear discharge plan at this point 01/04/2025 Patient taking Valium and olanzapine regularly has IM prescribed if refuses intermittently taking medication for diabetes hypertension 01/05/25 Cont medicationhas been stabilizing try and d/c meds that are not esential simplify regimen 01/06/25 stop namenda monitor sugar / bp encourage med acceptance cont valium olanzapine 01/08/2025 Continue olanzapine Valium metformin try and taper and simplify medication as tolerated discharge planning monitor response to change in medication 01/09/25 Try and simplify med regimen d/c planning 01/11/2025 Patient generally more cooperative not agitated generally monitor blood sugar and blood pressure intermittently refuses some doses of metformin 01/12/25 Pt seen later in day seemed stable flat some balance problems noted lowwer trileptal and primidone ck ortho vs dailypt consult for balance 01/13/2025 Patient improving less reactive has not been aggressive more cooperative with treatment and medication. Discharge planning 01/14: fell this morning, per head/c-spine CT and pelvic XR, no osseus injuries. pt appears as at recent mental status. no complaints or requests other than for wheelchair. pt will have 1:1 for ambulation for now. continue current psychopharm mgmt. 01/15: Continue current management and treatment plan. 01/16: continue current management and treatment plan. 01/17 keep same treatment. 01/18 keep same treatment 01/19 keep same treatment 01/20 keep same treatment 01/21 keep same treatment 01/22: calm, cooperative, flat. no questions or complaints. stable presentation. continue current mgmt. 01/23: no change, continue current mgmt. 01/24: stable. continue current mgmt. reps from [facility] coming to [facility] pt for placement today. 01/25/2025 Patient in behavioral control vital signs stable generally accepting treatment continue discharge planning 01/26/2025 Patient generally cooperative seen in the milieu no aggression suicidality or her problematic behavior. Discharge planning strongly urged transition 01/27/2025 Patient continues to be generally stabilizing not combative agitated or threatening has remained generally calm seems safe for discharge planning much improved over time 01/28/2025 Patient seen psychiatric follow-up patient has significantly improved over the months he is calm cooperative seen watching television somewhat social at times not aggressive or combative 01/29 Continue current regime/plan. Improved. 01/31: stably improved. awaiting placement. continue current mgmt. 02/01: stable. continue current mgmt. awaiting placement. 02/02: no change in presentation or plan. 02/03: stable. continue current mgmt. 02/04/2025 Patient seen psychiatric follow-up no current behavioral difficulties no current ability to place patient in a less restricted setting 02/06: no change in presentation. continue current mgmt. 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 Patient took all medications today; nurse however reports that recently he seemed a little suspicious, on the verge of picking over medications. -vitals WNL -no new labs 02/15/2025 Patient states he is doing okay understands he is waiting for some form of placement. Accepting treatment vital signs unremarkable continue plan of care discharge plan 02/16/2025 No major changes patient has been waiting for placement no less restrictive setting available at this time continues to be cooperative with care no significant behavioral difficulties 02/18/2025 Vital signs stable no need to change current regimen continue discharge planning. No less restrictive setting presently available for discharge 02/19 continue treatment plan 02/22 continue tx. 02/24: no change in presentation. continue current mgmt. 02/26: no change in presentation. continue current mgmt. 02/27: drawn and withdrawn. c/o diplopia both with and without corrective lenses. continue current mgmt. 02/28/2025 Patient calm some anxiety noted future oriented continue plan of care 03/03: stable. continue current mgmt. 03/05: Continue current regimen and plans 03/06: Continue current regimen and plans 03/07 continue tx. 03/08: anxiety in good control. in milieu watching TV, appropriately responds to compliment on his shirt. awaiting placement. 03/10: no change in presentation. resting in bed, mild anxiety, blurry vision. 03/11: no change in presentation. resting in bed, blurry vision. Reason for continued inpatient stay Substantial Risk for: inability to function Time Spent With Patient Time: Total time managing care of this patient today ____ minutes.
[2025-03-11] MEDS: Throat Lozenge, Medicated LOZENGE 1 LOZENGE MUCOUS MEM (15:56)
[2025-03-11 20:00] VITALS: BP 103/70; PULSE 82; RESP 18; TEMP 37; O2SAT 96
[2025-03-11] MEDS: Sertraline HCL 100 MG TABLET PO (21:05)
[2025-03-11] MEDS: Mirtazapine 30 MG TABLET PO (21:05)
[2025-03-11] MEDS: OXcarbazepine 300 MG TABLET PO (21:05)
[2025-03-11] MEDS: OLANZapine 10 MG TABLET 20 MG PO (21:06)
[2025-03-12 08:07] VITALS: BP 110/66; PULSE 76; RESP 18; TEMP 36.6; O2SAT 98
[2025-03-12] MEDS: diazePAM 5 MG TABLET PO ×3 (08:30→19:41)
[2025-03-12] MEDS: lisinopriL 20 MG TABLET PO (08:30)
[2025-03-12] MEDS: Primidone 50 MG TABLET 25 MG PO ×2 (08:30→19:42)
[2025-03-12] MEDS: Empagliflozin 10 MG TABLET PO (08:30)
[2025-03-12] MEDS: metFORMIN HCl ER 500 MG TAB.ER.24H 1000 MG PO (08:30)
--- NOTE | 2025-03-12 16:25 | HO.PSYCHPN ---
Subjective Subjective Date of Service: 03/12/25 Reason For Visit: Anxiety, mood disorder, ASD Interim History: met with patient; discussed with team Vitals WNL Diagnostics Vital Signs (24Hr): Vital Signs - 24 hr 03/11/25 20:00 03/12/25 08:07 Temperature 98.6 F 97.9 F Pulse Rate 82 76 Respiratory Rate 18 18 Blood Pressure 103/70 110/66 Pulse Oximetry 96 98 Oxygen Delivery Method Room Air Room Air BMI result Body Mass Index 26.7 Labs 10/28/24 09:10 03/11/25 07:30 Labs: Laboratory Results - last 48 hr 03/11/25 07:30 Creatinine 0.93 Estim Creat Clear Calc 77.6 Estimated GFR > 60 Imaging Radiology Impressions: ITS Impressions Hip X-Ray 01/12/25 13:30 IMPRESSION: No evidence of fracture of the bilateral hips. Electronically signed by: Kaushal Soni MD 01/12/2025 01:54 PM EDT RP Cervical Spine CT 01/14/25 07:59 IMPRESSION: Multilevel cervical spondylosis without acute fracture or trauma-related listhesis. Fleischner guidelines were followed. Electronically signed by: Abe Griffin MD 01/14/2025 09:50 AM EDT RP Head CT 01/14/25 08:30 IMPRESSION: No acute intracranial abnormality. No fracture seen. Electronically signed by: Chidi Rodriguez MD 01/17/2025 01:08 PM EDT RP Hip/Pelvis X-Ray 01/14/25 09:10 IMPRESSION: No acute fracture or dislocation. Electronically signed by: Abe Griffin MD 01/14/2025 10:35 AM EDT RP Medications Medications Current Medications Acetaminophen (Acetaminophen 325 Mg Tablet) 650 mg PO Q6H PRN PRN Reason: pain scale (1-10) Benzocaine (Throat Lozenge, Medicated Lozenge) 1 lozenge MUCOUS MEM Q2H PRN PRN Reason: Sore Throat Last Admin: 03/11/25 15:56 Dose: 1 lozenge Benztropine Mesylate (Benztropine Mesylate 1 Mg Tablet) 1 mg PO BEDTIME PRN PRN Reason: Extrapyramidal Effects Diazepam (Diazepam 10 Mg/2 Ml Cartridge) 5 mg IM TID PRN PRN Reason: PO refusal. HOLD FOR SEDATION Last Admin: 12/21/24 10:22 Dose: 5 mg Diazepam (Diazepam 5 Mg Tablet) 5 mg PO TID DESIRAE Last Admin: 03/12/25 14:28 Dose: 5 mg Empagliflozin (Empagliflozin 10 Mg Tablet) 10 mg PO DAILY DES[facility]AE Last Admin: 03/12/25 08:30 Dose: 10 mg Lisinopril (Lisinopril 20 Mg Tablet) 20 mg PO DAILY DES[facility]; Protocol Last Admin: 03/12/25 08:30 Dose: 20 mg Magnesium Hydroxide (Milk Of Magnesia 30 Ml Oral.Susp) 30 ml PO DAILY PRN PRN Reason: Constipation Last Admin: 02/04/25 14:59 Dose: 30 ml Metformin HCl (Metformin Hcl Er 500 Mg Tab.Er.24h) 1,000 mg PO DAILY [facility] Last Admin: 03/12/25 08:30 Dose: 1,000 mg Mirtazapine (Mirtazapine 30 Mg Tablet) 30 mg PO BEDTIME DESIRAE Last Admin: 03/11/25 21:05 Dose: 30 mg Nicotine Polacrilex (Nicotine Polacrilex 2 Mg Gum) 4 mg BUCCAL Q2H PRN PRN Reason: Nicotine Cravings Olanzapine (Olanzapine 10 Mg Tablet) 20 mg PO BEDTIME DESIRAE Last Admin: 03/11/25 21:06 Dose: 20 mg Olanzapine (Olanzapine 10 Mg Vial) 10 mg IM BID PRN PRN Reason: PO refusal Last Admin: 12/21/24 10:22 Dose: 10 mg Olanzapine (Olanzapine Odt 10 Mg Tab.Rapdis) 10 mg TRANSLINGU BID PRN PRN Reason: agitation Last Admin: 01/14/25 12:16 Dose: 10 mg Oxcarbazepine (Oxcarbazepine 300 Mg Tablet) 300 mg PO BEDTIME [facility] Last Admin: 03/11/25 21:05 Dose: 300 mg Primidone (Primidone 50 Mg Tablet) 25 mg PO BID DESIRAE Last Admin: 03/12/25 08:30 Dose: 25 mg Sertraline HCl (Sertraline Hcl 100 Mg Tablet) 100 mg PO BEDTIME [facility] Last Admin: 03/11/25 21:05 Dose: 100 mg Trazodone HCl (Trazodone Hcl 50 Mg Tablet) 50 mg PO BEDTIME PRN PRN Reason: Insomnia Allergies Allergies Allergy/AdvReac Type Severity Reaction Status Date / Time No Known Allergies Allergy Verified 10/14/24 18:14 [No Known Allergies*] Assessment & Plan Assessment & Plan (1) Mood disorder: Status: Acute Code(s): F39 - Unspecified mood [affective] disorder (2) Autism spectrum disorder: Status: Acute Code(s): F84.0 - Autistic disorder (3) Dementia: Status: Acute Code(s): F03.90 - Unspecified dementia, unspecified severity, without behavioral disturbance, psychotic disturbance, mood disturbance, and anxiety Plan Humza was admitted for safety and stabilization. His presentation is very similar to his last admission psychiatrically about a year ago and that is why his caregivers wanted to get ahead of things before he decompensated further. Current medications were reviewed and maintained. Contacts to be made with his treaters next week. 10/17: Continue current regimen and plans 10/19: Continue current tx plan and regime. 10/21: Memantine 5 mg daily- [facility], memory sx Abilify 2 mg daily-augment to antidepressants currently being used. 10/22 continue current tx plan -pt confused 10/23 Continue trials, regime and plan. 10/24: Continue regime and plan of care. 10/25 Abilify increased up to 5 mg. 10/26 keep on same treatment 10/27/24 continues with many complaints, no clear insight into self- 10/28 continue same treatment 10/29 increase Namenda to 5 mg p.o. b.i.d. and change Depakote to Depakene. Depakote level on 13/02 as per blood work of yesterday 10/30/24 - ne [employer] olanzapine = continue depakene as he did take 5 capsules this am- prn olanzapine given - this afternoon for behaviors on unit- 10/31/24 wrote for liquid depakote option if refuses capsules, also got prn olanzapine for throwing self on floor 11/01 keep same treatment 11/02 increase Zyprexa to 20 mg p.o. q.h.s. 11/03 keep same treatment. 11/04 discontinue Depakote and start Trileptal 300 mg p.o. b.i.d.. Her healthcare proxy will bring a copy of that we are going to invoke it 11/06 increase olanzapine to 20mg po qhs and 10mg po daily. 11/07 continue tx. 12/04 continue tx. 12/05: no changes 12/06 continue tx. 12/12: continue plan of care 12/13: continue tx 12/19 continue current tx plan 12/25: appearing sedated, more of a falls risk, poorer ability to do ADLs. decrease trileptal dosing from 600 BID to 300 BID for now. 12/26: less sedated than yesterday, continue current mgmt, including 1:1, until attending can see pt in the morning. 12/30: continues less sedated. minimally interactive. continue current mgmt. 12/31: per HCP, not at baseline, over-sedated. begin valium taper. decrease valium 5 TID to 4 TID for now. per HCP and SW, HCP has been affirmed in court. IM back-up orders in place and to be enforced by nursing staff. no aggressive or agitated behaviors. 01/02: Continue current regimen and plans Plan 1. Continue with olanzapine 10 mg p.o. q.a.m. and 20 mg p.o. q.h.s., he refused p.o. he received olanzapine IM. 2. Continue with Valium 5 mg p.o. t.i.d. if he refuses he will get Valium IM. 3. We will encourage compliance. The patient had been noncompliant with sertraline, he remains dysphoric. 4. The patient has a healthcare proxy who was affirmed by court, and they want us to medicate him even if the patient does not want to be compliant. 5. At this moment the patient is slightly over-sedated with EPS but we will keep the same dose of antipsychotics since his violence has improved. 01/03/25 Continue plan of care Reassess treatment plan which includes IM medication patient has been much less aggressive than he has in the past Unclear discharge plan at this point 01/04/2025 Patient taking Valium and olanzapine regularly has IM prescribed if refuses intermittently taking medication for diabetes hypertension 01/05/25 Cont medicationhas been stabilizing try and d/c meds that are not esential simplify regimen 01/06/25 stop namenda monitor sugar / bp encourage med acceptance cont valium olanzapine 01/08/2025 Continue olanzapine Valium metformin try and taper and simplify medication as tolerated discharge planning monitor response to change in medication 01/09/25 Try and simplify med regimen d/c planning 01/11/2025 Patient generally more cooperative not agitated generally monitor blood sugar and blood pressure intermittently refuses some doses of metformin 01/12/25 Pt seen later in day seemed stable flat some balance problems noted lowwer trileptal and primidone ck ortho vs dailypt consult for balance 01/13/2025 Patient improving less reactive has not been aggressive more cooperative with treatment and medication. Discharge planning 01/14: fell this morning, per head/c-spine CT and pelvic XR, no osseus injuries. pt appears as at recent mental status. no complaints or requests other than for wheelchair. pt will have 1:1 for ambulation for now. continue current psychopharm mgmt. 01/15: Continue current management and treatment plan. 01/16: continue current management and treatment plan. 01/17 keep same treatment. 01/18 keep same treatment 01/19 keep same treatment 01/20 keep same treatment 01/21 keep same treatment 01/22: calm, cooperative, flat. no questions or complaints. stable presentation. continue current mgmt. 01/23: no change, continue current mgmt. 01/24: stable. continue current mgmt. reps from [facility] coming to [facility] pt for placement today. 01/25/2025 Patient in behavioral control vital signs stable generally accepting treatment continue discharge planning 01/26/2025 Patient generally cooperative seen in the milieu no aggression suicidality or her problematic behavior. Discharge planning strongly urged transition 01/27/2025 Patient continues to be generally stabilizing not combative agitated or threatening has remained generally calm seems safe for discharge planning much improved over time 01/28/2025 Patient seen psychiatric follow-up patient has significantly improved over the months he is calm cooperative seen watching television somewhat social at times not aggressive or combative 01/29 Continue current regime/plan. Improved. 01/31: stably improved. awaiting placement. continue current mgmt. 02/01: stable. continue current mgmt. awaiting placement. 02/02: no change in presentation or plan. 02/03: stable. continue current mgmt. 02/04/2025 Patient seen psychiatric follow-up no current behavioral difficulties no current ability to place patient in a less restricted setting 02/06: no change in presentation. continue current mgmt. 02/07/25 cont d/c planning pt has been tentatively accepted no less restrictive setting currently available 02/08/2025 Continue discharge planning patient tentatively accepted no funding source available at this time no less restrictive setting available 02/14 Patient tells entry writer he is hanging in there he says it can be hard sometimes to do so but it is overall going okay. Patient took all medications today; nurse however reports that recently he seemed a little suspicious, on the verge of picking over medications. -vitals WNL -no new labs 02/15/2025 Patient states he is doing okay understands he is waiting for some form of placement. Accepting treatment vital signs unremarkable continue plan of care discharge plan 02/16/2025 No major changes patient has been waiting for placement no less restrictive setting available at this time continues to be cooperative with care no significant behavioral difficulties 02/18/2025 Vital signs stable no need to change current regimen continue discharge planning. No less restrictive setting presently available for discharge 02/19 continue treatment plan 02/22 continue tx. 02/24: no change in presentation. continue current mgmt. 5: no change in presentation. continue current mgmt. 5: drawn and withdrawn. c/o diplopia both with and without corrective lenses. continue current mgmt. 02/28/2025 Patient calm some anxiety noted future oriented continue plan of care 03/03: stable. continue current mgmt. 03/05: Continue current regimen and plans 03/06: Continue current regimen and plans 03/07 continue tx. 03/08: anxiety in good control. in milieu watching TV, appropriately responds to compliment on his shirt. awaiting placement. 03/10: no change in presentation. resting in bed, mild anxiety, blurry vision. 03/11: no change in presentation. resting in bed, blurry vision. 03/12 stable; no change in presentation; continue treatment plan Time Spent With Patient Time: Total time managing care of this patient today ____ minutes.
[2025-03-12 19:38] VITALS: BP 106/55; PULSE 74; RESP 16; TEMP 36.7; O2SAT 99
[2025-03-12] MEDS: Mirtazapine 30 MG TABLET PO (19:41)
[2025-03-12] MEDS: OXcarbazepine 300 MG TABLET PO (19:41)
[2025-03-12] MEDS: OLANZapine 10 MG TABLET 20 MG PO (19:41)
[2025-03-12] MEDS: Sertraline HCL 100 MG TABLET PO (19:41)
[2025-03-13 08:00] VITALS: BP 98/54; PULSE 79; RESP 16; TEMP 36.6; O2SAT 96
[2025-03-13 09:23] VITALS: BP 98/54
[2025-03-13] MEDS: diazePAM 5 MG TABLET PO ×3 (09:23→20:41)
[2025-03-13] MEDS: lisinopriL 20 MG TABLET PO (09:23)
[2025-03-13] MEDS: Primidone 50 MG TABLET 25 MG PO ×2 (09:23→20:40)
[2025-03-13] MEDS: metFORMIN HCl ER 500 MG TAB.ER.24H 1000 MG PO (09:24)
[2025-03-13] MEDS: Empagliflozin 10 MG TABLET PO (09:24)
[2025-03-13 20:00] VITALS: BP 96/52; PULSE 71; RESP 16; TEMP 36.9; O2SAT 99
[2025-03-13] MEDS: OXcarbazepine 300 MG TABLET PO (20:41)
[2025-03-13] MEDS: Mirtazapine 30 MG TABLET PO (20:41)
[2025-03-13] MEDS: OLANZapine 10 MG TABLET 20 MG PO (20:41)
[2025-03-13] MEDS: Sertraline HCL 100 MG TABLET PO (20:41)
--- NOTE | 2025-03-13 21:18 | HO.PSYCHPN ---
Subjective Subjective Date of Service: 03/13/25 Reason For Visit: Anxiety, mood disorder, ASD Diagnostics Vital Signs (24Hr): Vital Signs - 24 hr 03/13/25 08:00 03/13/25 09:23 Temperature 97.9 F Pulse Rate 79 Respiratory Rate 16 Blood Pressure 98/54 L 98/54 L Pulse Oximetry 96 Oxygen Delivery Method Room Air BMI result Body Mass Index 26.7 Labs 10/28/24 09:10 03/11/25 07:30 Imaging Radiology Impressions: ITS Impressions Hip X-Ray 01/12/25 13:30 IMPRESSION: No evidence of fracture of the bilateral hips. Electronically signed by: Kaushal Soni MD 01/12/2025 01:54 PM EDT RP Cervical Spine CT 01/14/25 07:59 IMPRESSION: Multilevel cervical spondylosis without acute fracture or trauma-related listhesis. Fleischner guidelines were followed. Electronically signed by: Abe Griffin MD 01/14/2025 09:50 AM EDT RP Head CT 01/14/25 08:30 IMPRESSION: No acute intracranial abnormality. No fracture seen. Electronically signed by: Chidi Rodriguez MD 01/17/2025 01:08 PM EDT RP Hip/Pelvis X-Ray 01/14/25 09:10 IMPRESSION: No acute fracture or dislocation. Electronically signed by: Abe Griffin MD 01/14/2025 10:35 AM EDT RP Medications Medications Current Medications Acetaminophen (Acetaminophen 325 Mg Tablet) 650 mg PO Q6H PRN PRN Reason: pain scale (1-10) Benzocaine (Throat Lozenge, Medicated Lozenge) 1 lozenge MUCOUS MEM Q2H PRN PRN Reason: Sore Throat Last Admin: 03/11/25 15:56 Dose: 1 lozenge Benztropine Mesylate (Benztropine Mesylate 1 Mg Tablet) 1 mg PO BEDTIME PRN PRN Reason: Extrapyramidal Effects Diazepam (Diazepam 10 Mg/2 Ml Cartridge) 5 mg IM TID PRN PRN Reason: PO refusal. HOLD FOR SEDATION Last Admin: 12/21/24 10:22 Dose: 5 mg Diazepam (Diazepam 5 Mg Tablet) 5 mg PO TID [facility] Last Admin: 03/13/25 20:41 Dose: 5 mg Empagliflozin (Empagliflozin 10 Mg Tablet) 10 mg PO DAILY [facility] Last Admin: 03/13/25 09:24 Dose: 10 mg Lisinopril (Lisinopril 20 Mg Tablet) 20 mg PO DAILY [facility]; Protocol Last Admin: 03/13/25 09:23 Dose: 20 mg Magnesium Hydroxide (Milk Of Magnesia 30 Ml Oral.Susp) 30 ml PO DAILY PRN PRN Reason: Constipation Last Admin: 02/04/25 14:59 Dose: 30 ml Metformin HCl (Metformin Hcl Er 500 Mg Tab.Er.24h) 1,000 mg PO DAILY [facility] Last Admin: 03/13/25 09:24 Dose: 1,000 mg Mirtazapine (Mirtazapine 30 Mg Tablet) 30 mg PO BEDTIME DESIRAE Last Admin: 03/13/25 20:41 Dose: 30 mg Nicotine Polacrilex (Nicotine Polacrilex 2 Mg Gum) 4 mg BUCCAL Q2H PRN PRN Reason: Nicotine Cravings Olanzapine (Olanzapine 10 Mg Tablet) 20 mg PO BEDTIME [facility] Last Admin: 03/13/25 20:41 Dose: 20 mg Olanzapine (Olanzapine 10 Mg Vial) 10 mg IM BID PRN PRN Reason: PO refusal Last Admin: 12/21/24 10:22 Dose: 10 mg Olanzapine (Olanzapine Odt 10 Mg Tab.Rapdis) 10 mg TRANSLINGU BID PRN PRN Reason: agitation Last Admin: 01/14/25 12:16 Dose: 10 mg Oxcarbazepine (Oxcarbazepine 300 Mg Tablet) 300 mg PO BEDTIME [facility] Last Admin: 03/13/25 20:41 Dose: 300 mg Primidone (Primidone 50 Mg Tablet) 25 mg PO BID [facility] Last Admin: 03/13/25 20:40 Dose: 25 mg Sertraline HCl (Sertraline Hcl 100 Mg Tablet) 100 mg PO BEDTIME [facility] Last Admin: 03/13/25 20:41 Dose: 100 mg Trazodone HCl (Trazodone Hcl 50 Mg Tablet) 50 mg PO BEDTIME PRN PRN Reason: Insomnia Allergies Allergies Allergy/AdvReac Type Severity Reaction Status Date / Time No Known Allergies Allergy Verified 10/14/24 18:14 [No Known Allergies*] Assessment & Plan Assessment & Plan (1) Mood disorder: Status: Acute Code(s): F39 - Unspecified mood [affective] disorder (2) Autism spectrum disorder: Status: Acute Code(s): F84.0 - Autistic disorder (3) Dementia: Status: Acute Code(s): F03.90 - Unspecified dementia, unspecified severity, without behavioral disturbance, psychotic disturbance, mood disturbance, and anxiety Plan Humza was admitted for safety and stabilization. His presentation is very similar to his last admission psychiatrically about a year ago and that is why his caregivers wanted to get ahead of things before he decompensated further. Current medications were reviewed and maintained. Contacts to be made with his treaters next week. 10/17: Continue current regimen and plans 10/19: Continue current tx plan and regime. 10/21: Memantine 5 mg daily- [facility], memory sx Abilify 2 mg daily-augment to antidepressants currently being used. 10/22 continue current tx plan -pt confused 10/23 Continue trials, regime and plan. 10/24: Continue regime and plan of care. 10/25 Abilify increased up to 5 mg. 10/26 keep on same treatment 10/27/24 continues with many complaints, no clear insight into self- 10/28 continue same treatment 10/29 increase Namenda to 5 mg p.o. b.i.d. and change Depakote to Depakene. Depakote level on 13/02 as per blood work of yesterday 10/30/24 - ut [employer] olanzapine = continue depakene as he did take 5 capsules this am- prn olanzapine given - this afternoon for behaviors on unit- 10/31/24 wrote for liquid depakote option if refuses capsules, also got prn olanzapine for throwing self on floor 11/01 keep same treatment 11/02 increase Zyprexa to 20 mg p.o. q.h.s. 11/03 keep same treatment. 11/04 discontinue Depakote and start Trileptal 300 mg p.o. b.i.d.. Her healthcare proxy will bring a copy of that we are going to invoke it 11/06 increase olanzapine to 20mg po qhs and 10mg po daily. 11/07 continue tx. 12/04 continue tx. 12/05: no changes 12/06 continue tx. 12/12: continue plan of care 12/13: continue tx 12/19 continue current tx plan 12/25: appearing sedated, more of a falls risk, poorer ability to do ADLs. decrease trileptal dosing from 600 BID to 300 BID for now. 12/26: less sedated than yesterday, continue current mgmt, including 1:1, until attending can see pt in the morning. 12/30: continues less sedated. minimally interactive. continue current mgmt. 12/31: per HCP, not at baseline, over-sedated. begin valium taper. decrease valium 5 TID to 4 TID for now. per HCP and SW, HCP has been affirmed in court. IM back-up orders in place and to be enforced by nursing staff. no aggressive or agitated behaviors. 01/02: Continue current regimen and plans Plan 1. Continue with olanzapine 10 mg p.o. q.a.m. and 20 mg p.o. q.h.s., he refused p.o. he received olanzapine IM. 2. Continue with Valium 5 mg p.o. t.i.d. if he refuses he will get Valium IM. 3. We will encourage compliance. The patient had been noncompliant with sertraline, he remains dysphoric. 4. The patient has a healthcare proxy who was affirmed by court, and they want us to medicate him even if the patient does not want to be compliant. 5. At this moment the patient is slightly over-sedated with EPS but we will keep the same dose of antipsychotics since his violence has improved. 01/03/25 Continue plan of care Reassess treatment plan which includes IM medication patient has been much less aggressive than he has in the past Unclear discharge plan at this point 01/04/2025 Patient taking Valium and olanzapine regularly has IM prescribed if refuses intermittently taking medication for diabetes hypertension 01/05/25 Cont medicationhas been stabilizing try and d/c meds that are not esential simplify regimen 01/06/25 stop namenda monitor sugar / bp encourage med acceptance cont valium olanzapine 01/08/2025 Continue olanzapine Valium metformin try and taper and simplify medication as tolerated discharge planning monitor response to change in medication 01/09/25 Try and simplify med regimen d/c planning 01/11/2025 Patient generally more cooperative not agitated generally monitor blood sugar and blood pressure intermittently refuses some doses of metformin 01/12/25 Pt seen later in day seemed stable flat some balance problems noted lowwer trileptal and primidone ck ortho vs dailypt consult for balance 01/13/2025 Patient improving less reactive has not been aggressive more cooperative with treatment and medication. Discharge planning 01/14: fell this morning, per head/c-spine CT and pelvic XR, no osseus injuries. pt appears as at recent mental status. no complaints or requests other than for wheelchair. pt will have 1:1 for ambulation for now. continue current psychopharm mgmt. 01/15: Continue current management and treatment plan. 01/16: continue current management and treatment plan. 01/17 keep same treatment. 01/18 keep same treatment 01/19 keep same treatment 01/20 keep same treatment 01/21 keep same treatment 01/22: calm, cooperative, flat. no questions or complaints. stable presentation. continue current mgmt. 01/23: no change, continue current mgmt. 01/24: stable. continue current mgmt. reps from [facility] coming to [facility] pt for placement today. 01/25/2025 Patient in behavioral control vital signs stable generally accepting treatment continue discharge planning 01/26/2025 Patient generally cooperative seen in the milieu no aggression suicidality or her problematic behavior. Discharge planning strongly urged transition 01/27/2025 Patient continues to be generally stabilizing not combative agitated or threatening has remained generally calm seems safe for discharge planning much improved over time 01/28/2025 Patient seen psychiatric follow-up patient has significantly improved over the months he is calm cooperative seen watching television somewhat social at times not aggressive or combative 01/29 Continue current regime/plan. Improved. 01/31: stably improved. awaiting placement. continue current mgmt. 02/01: stable. continue current mgmt. awaiting placement. 02/02: no change in presentation or plan. 02/03: stable. continue current mgmt. 02/04/2025 Patient seen psychiatric follow-up no current behavioral difficulties no current ability to place patient in a less restricted setting 02/06: no change in presentation. continue current mgmt. 02/07/25 cont d/c planning pt has been tentatively accepted no less restrictive setting currently available 02/08/2025 Continue discharge planning patient tentatively accepted no funding source available at this time no less restrictive setting available 02/14 Patient tells short story writer he is hanging in there he says it can be hard sometimes to do so but it is overall going okay. Patient took all medications today; nurse however reports that recently he seemed a little suspicious, on the verge of picking over medications. -vitals WNL -no new labs 02/15/2025 Patient states he is doing okay understands he is waiting for some form of placement. Accepting treatment vital signs unremarkable continue plan of care discharge plan 02/16/2025 No major changes patient has been waiting for placement no less restrictive setting available at this time continues to be cooperative with care no significant behavioral difficulties 02/18/2025 Vital signs stable no need to change current regimen continue discharge planning. No less restrictive setting presently available for discharge 02/19 continue treatment plan 02/22 continue tx. 02/24: no change in presentation. continue current mgmt. 5/3: no change in presentation. continue current mgmt. 5/: drawn and withdrawn. c/o diplopia both with and without corrective lenses. continue current mgmt. 02/28/2025 Patient calm some anxiety noted future oriented continue plan of care 03/03: stable. continue current mgmt. 03/05: Continue current regimen and plans 03/06: Continue current regimen and plans 03/07 continue tx. 03/08: anxiety in good control. in milieu watching TV, appropriately responds to compliment on his shirt. awaiting placement. 03/10: no change in presentation. resting in bed, mild anxiety, blurry vision. 03/11: no change in presentation. resting in bed, blurry vision. 03/12 stable; no change in presentation; continue treatment plan 03/13 stable; no change in presentation; continue treatment plan Time Spent With Patient Time: Total time managing care of this patient today ____ minutes.
[2025-03-14] MEDS: Throat Lozenge, Medicated LOZENGE 1 LOZENGE MUCOUS MEM (00:13)
[2025-03-14 08:31] VITALS: BP 98/57; PULSE 85; RESP 15; TEMP 36.8; O2SAT 100
[2025-03-14] MEDS: diazePAM 5 MG TABLET PO ×3 (08:33→20:17)
[2025-03-14] MEDS: Primidone 50 MG TABLET 25 MG PO ×2 (08:33→20:17)
[2025-03-14] MEDS: Empagliflozin 10 MG TABLET PO (08:33)
[2025-03-14] MEDS: metFORMIN HCl ER 500 MG TAB.ER.24H 1000 MG PO (08:34)
--- NOTE | 2025-03-14 08:58 | P.PNPSI_ITS ---
Subjective Subjective Date of Service: 03/14/25 Reason For Visit: Anxiety, mood disorder, ASD Subjective Notes: Conditional Voluntary Healthcare Proxy: Yes Interim History: Pt slept through the night. he apparently had episode of choking, ordered ST eval. Pt has not had any combative behaviors. He was also seen by hospitalist, noted BP on lower side and chronic cough which could be related to lisinopril, therefore, it was discontinued. Review of Systems Review of Systems Denies any shortness of breath, chest pain, dizziness, lightheadedness, abdominal pain or discomfort, nausea vomiting or diarrhea. Reports cough. Yes all other systems are reviewed and are negative and Unobtainable due to mental status Mental Status Exam Mental Status Exam Patient Appearance: Appropriate Patient Orientation: Person and Situation Level of Consciousness: Awake and Appropriate Patient Behavior: Guarded and Passive Mood Description: Withdrawn ( ok ) Affect Description: Withdrawn Patient Cognition Impaired: Yes Ability to Follow Directions: Fair Speech Pattern: Clear Memory Description: Remote Impaired Diagnostics Vital Signs (24Hr): Vital Signs - 24 hr 03/13/25 09:23 03/13/25 20:00 03/14/25 08:31 Temperature 98.4 F 98.2 F Pulse Rate 71 85 Respiratory Rate 16 15 Blood Pressure 98/54 L 96/52 L 98/57 L Pulse Oximetry 99 100 Oxygen Delivery Method Room Air Room Air BMI result Body Mass Index 26.7 Labs 10/28/24 09:10 03/11/25 07:30 Imaging Radiology Impressions: ITS Impressions Hip X-Ray 01/12/25 13:30 IMPRESSION: No evidence of fracture of the bilateral hips. Electronically signed by: Kaushal Soni MD 01/12/2025 01:54 PM EDT RP Cervical Spine CT 01/14/25 07:59 IMPRESSION: Multilevel cervical spondylosis without acute fracture or trauma-related listhesis. Fleischner guidelines were followed. Electronically signed by: Abe Griffin MD 01/14/2025 09:50 AM EDT RP Head CT 01/14/25 08:30 IMPRESSION: No acute intracranial abnormality. No fracture seen. Electronically signed by: Chidi Rodriguez MD 01/17/2025 01:08 PM EDT RP Hip/Pelvis X-Ray 01/14/25 09:10 IMPRESSION: No acute fracture or dislocation. Electronically signed by: Abe Griffin MD 01/14/2025 10:35 AM EDT Medications Medications Current Medications Acetaminophen (Acetaminophen 325 Mg Tablet) 650 mg PO Q6H PRN PRN Reason: pain scale (1-10) Benzocaine (Throat Lozenge, Medicated Lozenge) 1 lozenge MUCOUS MEM Q2H PRN PRN Reason: Sore Throat Last Admin: 03/14/25 00:13 Dose: 1 lozenge Benztropine Mesylate (Benztropine Mesylate 1 Mg Tablet) 1 mg PO BEDTIME PRN PRN Reason: Extrapyramidal Effects Diazepam (Diazepam 10 Mg/2 Ml Cartridge) 5 mg IM TID PRN PRN Reason: PO refusal. HOLD FOR SEDATION Last Admin: 12/21/24 10:22 Dose: 5 mg Diazepam (Diazepam 5 Mg Tablet) 5 mg PO TID DESIRAE Last Admin: 03/14/25 08:33 Dose: 5 mg Empagliflozin (Empagliflozin 10 Mg Tablet) 10 mg PO DAILY DESIRAE Last Admin: 03/14/25 08:33 Dose: 10 mg Lisinopril (Lisinopril 20 Mg Tablet) 20 mg PO DAILY DESIRAE; Protocol Last Admin: 03/13/25 09:23 Dose: 20 mg Magnesium Hydroxide (Milk Of Magnesia 30 Ml Oral.Susp) 30 ml PO DAILY PRN PRN Reason: Constipation Last Admin: 02/04/25 14:59 Dose: 30 ml Metformin HCl (Metformin Hcl Er 500 Mg Tab.Er.24h) 1,000 mg PO DAILY DESIRAE Last Admin: 03/14/25 08:34 Dose: 1,000 mg Mirtazapine (Mirtazapine 30 Mg Tablet) 30 mg PO BEDTIME DESIRAE Last Admin: 03/13/25 20:41 Dose: 30 mg Nicotine Polacrilex (Nicotine Polacrilex 2 Mg Gum) 4 mg BUCCAL Q2H PRN PRN Reason: Nicotine Cravings Olanzapine (Olanzapine 10 Mg Tablet) 20 mg PO BEDTIME DESIRAE Last Admin: 03/13/25 20:41 Dose: 20 mg Olanzapine (Olanzapine 10 Mg Vial) 10 mg IM BID PRN PRN Reason: PO refusal Last Admin: 12/21/24 10:22 Dose: 10 mg Olanzapine (Olanzapine Odt 10 Mg Tab.Rapdis) 10 mg TRANSLINGU BID PRN PRN Reason: agitation Last Admin: 01/14/25 12:16 Dose: 10 mg Oxcarbazepine (Oxcarbazepine 300 Mg Tablet) 300 mg PO BEDTIME [facility] Last Admin: 03/13/25 20:41 Dose: 300 mg Primidone (Primidone 50 Mg Tablet) 25 mg PO BID [facility] Last Admin: 03/14/25 08:33 Dose: 25 mg Sertraline HCl (Sertraline Hcl 100 Mg Tablet) 100 mg PO BEDTIME DESIRAE Last Admin: 03/13/25 20:41 Dose: 100 mg Trazodone HCl (Trazodone Hcl 50 Mg Tablet) 50 mg PO BEDTIME PRN PRN Reason: Insomnia Allergies Allergies Allergy/AdvReac Type Severity Reaction Status Date / Time No Known Allergies Allergy Verified 10/14/24 18:14 [No Known Allergies*] Assessment & Plan Assessment & Plan (1) Mood disorder: Status: Acute Code(s): F39 - Unspecified mood [affective] disorder (2) Autism spectrum disorder: Status: Acute Code(s): F84.0 - Autistic disorder (3) Dementia: Status: Acute Code(s): F03.90 - Unspecified dementia, unspecified severity, without behavioral disturbance, psychotic disturbance, mood disturbance, and anxiety Plan Humza was admitted for safety and stabilization. His presentation is very similar to his last admission psychiatrically about a year ago and that is why his caregivers wanted to get ahead of things before he decompensated further. Current medications were reviewed and maintained. Contacts to be made with his treaters next week. 10/17: Continue current regimen and plans 10/19: Continue current tx plan and regime. 10/21: Memantine 5 mg daily- [facility], memory sx Abilify 2 mg daily-augment to antidepressants currently being used. 10/22 continue current tx plan -pt confused 10/23 Continue trials, regime and plan. 10/24: Continue regime and plan of care. 10/25 Abilify increased up to 5 mg. 10/26 keep on same treatment 10/27/24 continues with many complaints, no clear insight into self- 10/28 continue same treatment 10/29 increase Namenda to 5 mg p.o. b.i.d. and change Depakote to Depakene. Depakote level on 13/02 as per blood work of yesterday 10/30/24 - sd [employer] [facility] olanzapine = continue depakene as he did take 5 capsules this am- prn olanzapine given - this afternoon for behaviors on unit- 10/31/24 wrote for liquid depakote option if refuses capsules, also got prn olanzapine for throwing self on floor 11/01 keep same treatment 11/02 increase Zyprexa to 20 mg p.o. q.h.s. 11/03 keep same treatment. 11/04 discontinue Depakote and start Trileptal 300 mg p.o. b.i.d.. Her healthcare proxy will bring a copy of that we are going to invoke it 11/06 increase olanzapine to 20mg po qhs and 10mg po daily. 11/07 continue tx. 12/04 continue tx. 12/05: no changes 12/06 continue tx. 12/12: continue plan of care 12/13: continue tx 12/19 continue current tx plan 12/25: appearing sedated, more of a falls risk, poorer ability to do ADLs. decrease trileptal dosing from 600 BID to 300 BID for now. 12/26: less sedated than yesterday, continue current mgmt, including 1:1, until attending can see pt in the morning. 12/30: continues less sedated. minimally interactive. continue current mgmt. 12/31: per HCP, not at baseline, over-sedated. begin valium taper. decrease valium 5 TID to 4 TID for now. per HCP and SW, HCP has been affirmed in court. IM back-up orders in place and to be enforced by nursing staff. no aggressive or agitated behaviors. 01/02: Continue current regimen and plans Plan 1. Continue with olanzapine 10 mg p.o. q.a.m. and 20 mg p.o. q.h.s., he refused p.o. he received olanzapine IM. 2. Continue with Valium 5 mg p.o. t.i.d. if he refuses he will get Valium IM. 3. We will encourage compliance. The patient had been noncompliant with sertraline, he remains dysphoric. 4. The patient has a healthcare proxy who was affirmed by court, and they want us to medicate him even if the patient does not want to be compliant. 5. At this moment the patient is slightly over-sedated with EPS but we will keep the same dose of antipsychotics since his violence has improved. 01/03/25 Continue plan of care Reassess treatment plan which includes IM medication patient has been much less aggressive than he has in the past Unclear discharge plan at this point 01/04/2025 Patient taking Valium and olanzapine regularly has IM prescribed if refuses intermittently taking medication for diabetes hypertension 01/05/25 Cont medicationhas been stabilizing try and d/c meds that are not esential simplify regimen 01/06/25 stop namenda monitor sugar / bp encourage med acceptance cont valium olanzapine 01/08/2025 Continue olanzapine Valium metformin try and taper and simplify medication as tolerated discharge planning monitor response to change in medication 01/09/25 Try and simplify med regimen d/c planning 01/11/2025 Patient generally more cooperative not agitated generally monitor blood sugar and blood pressure intermittently refuses some doses of metformin 01/12/25 Pt seen later in day seemed stable flat some balance problems noted lowwer trileptal and primidone ck ortho vs dailypt consult for balance 01/13/2025 Patient improving less reactive has not been aggressive more cooperative with treatment and medication. Discharge planning 01/14: fell this morning, per head/c-spine CT and pelvic XR, no osseus injuries. pt appears as at recent mental status. no complaints or requests other than for wheelchair. pt will have 1:1 for ambulation for now. continue current psychopharm mgmt. 01/15: Continue current management and treatment plan. 01/16: continue current management and treatment plan. 01/17 keep same treatment. 01/18 keep same treatment 01/19 keep same treatment 01/20 keep same treatment 01/21 keep same treatment 01/22: calm, cooperative, flat. no questions or complaints. stable presentation. continue current mgmt. 01/23: no change, continue current mgmt. 01/24: stable. continue current mgmt. reps from [facility] coming to [facility] pt for placement today. 01/25/2025 Patient in behavioral control vital signs stable generally accepting treatment continue discharge planning 01/26/2025 Patient generally cooperative seen in the milieu no aggression suicidality or her problematic behavior. Discharge planning strongly urged transition 01/27/2025 Patient continues to be generally stabilizing not combative agitated or threatening has remained generally calm seems safe for discharge planning much improved over time 01/28/2025 Patient seen psychiatric follow-up patient has significantly improved over the months he is calm cooperative seen watching television somewhat social at times not aggressive or combative 01/29 Continue current regime/plan. Improved. 01/31: stably improved. awaiting placement. continue current mgmt. 02/01: stable. continue current mgmt. awaiting placement. 02/02: no change in presentation or plan. 02/03: stable. continue current mgmt. 02/04/2025 Patient seen psychiatric follow-up no current behavioral difficulties no current ability to place patient in a less restricted setting 02/06: no change in presentation. continue current mgmt. 02/07/25 cont d/c planning pt has been tentatively accepted no less restrictive setting currently available 02/08/2025 Continue discharge planning patient tentatively accepted no funding source available at this time no less restrictive setting available 02/14 Patient tells account underwriter he is hanging in there he says it can be hard sometimes to do so but it is overall going okay. Patient took all medications today; nurse however reports that recently he seemed a little suspicious, on the verge of picking over medications. -vitals WNL -no new labs 02/15/2025 Patient states he is doing okay understands he is waiting for some form of placement. Accepting treatment vital signs unremarkable continue plan of care discharge plan 02/16/2025 No major changes patient has been waiting for placement no less restrictive setting available at this time continues to be cooperative with care no significant behavioral difficulties 02/18/2025 Vital signs stable no need to change current regimen continue discharge planning. No less restrictive setting presently available for discharge 02/19 continue treatment plan 02/22 continue tx. 02/24: no change in presentation. continue current mgmt. 02/26: no change in presentation. continue current mgmt. 5: drawn and withdrawn. c/o diplopia both with and without corrective lenses. continue current mgmt. 02/28/2025 Patient calm some anxiety noted future oriented continue plan of care 03/03: stable. continue current mgmt. 03/05: Continue current regimen and plans 03/06: Continue current regimen and plans 03/07 continue tx. 03/08: anxiety in good control. in milieu watching TV, appropriately responds to compliment on his shirt. awaiting placement. 03/10: no change in presentation. resting in bed, mild anxiety, blurry vision. 03/11: no change in presentation. resting in bed, blurry vision. 03/12 stable; no change in presentation; continue treatment plan 03/14 continue tx. swallowing eval ordered. lisinopril d/c by hospitalist due to low BP and chronic cough. Reason for continued inpatient stay Substantial Risk for: inability to function Time Spent With Patient Time: Total time managing care of this patient today ____ minutes.
--- NOTE | 2025-03-14 14:40 | PC.NURSE ---
Pt coughing while eating afternoon snack. This marketing underwriter contacted provider via [employer], and alerted him to this.
--- NOTE | 2025-03-14 15:06 | HO.PM.IMCN ---
History of Present Illness Data of Consult Service Date: 03/14/25 Primary Care Provider: Eric Rios MD [facility] Reason for consult: Medical consult for cough. 64-year-old male with a past medical history of autism, diabetes, history of urinary retention and neurocognitive disorder. He is being seen for a cough. Per staff he was eating cookies in noted to be coughing. Patient reports that he has been coughing for a few days. Reports that the cough is dry. Denies any shortness has. His blood pressures have been on the softer side. He has no edema, respiratory rate is even and regular, no evidence of respiratory compromise. His oxygen saturation is 100% on room air. Reports a mild sore throat from coughing. Review of Systems Review of Systems: Denies any shortness of breath, chest pain, dizziness, lightheadedness, abdominal pain or discomfort, nausea vomiting or diarrhea. Reports cough. [facility] Medical History (Updated 03/14/25 @ 15:26 by Melissa Jarrett DNP) Neurocognitive disorder Diabetes mellitus Hypertension Autism spectrum disorder Social History Household Members: None Housing: Apartment Do you presently have visiting nurse or other home services: Yes Alcohol intake: never Patient Tobacco Use Status: Never used Tobacco Use of substances other than those prescribed or required for medical reasons: No Currently Displaying Signs/Symptoms of Drug Intoxication Withdrawal: No Have you been hit, kicked, punched, or otherwise hurt by someone within the past year? If so, by whom?: No Do you feel safe in your current relationship?: No Current Relationship Is there a partner from a previous relationship who is making you feel unsafe now?: No Are you made to feel afraid or neglected: No Advance Directives: Yes Advance Directives on File: Yes Advance Directives Date on File: 04/14/23 Do you have thoughts of harming others: None Do you have a plan to hurt others: No Plan Recently lost weight without trying: Unsure service: No Sexual orientation: Don't Know Meds Allergies Allergy/AdvReac Type Severity Reaction Status Date / Time No Known Allergies Allergy Verified 10/14/24 18:14 [No Known Allergies*] Active Medications: Current Medications Acetaminophen (Acetaminophen 325 Mg Tablet) 650 mg PO Q6H PRN PRN Reason: pain scale (1-10) Benzocaine (Throat Lozenge, Medicated Lozenge) 1 lozenge MUCOUS MEM Q2H PRN PRN Reason: Sore Throat Last Admin: 03/14/25 00:13 Dose: 1 lozenge Benztropine Mesylate (Benztropine Mesylate 1 Mg Tablet) 1 mg PO BEDTIME PRN PRN Reason: Extrapyramidal Effects Diazepam (Diazepam 10 Mg/2 Ml Cartridge) 5 mg IM TID PRN PRN Reason: PO refusal. HOLD FOR SEDATION Last Admin: 12/21/24 10:22 Dose: 5 mg Diazepam (Diazepam 5 Mg Tablet) 5 mg PO TID DESIRAE Last Admin: 03/14/25 08:33 Dose: 5 mg Empagliflozin (Empagliflozin 10 Mg Tablet) 10 mg PO DAILY [facility] Last Admin: 03/14/25 08:33 Dose: 10 mg Lisinopril (Lisinopril 20 Mg Tablet) 20 mg PO DAILY [facility]; Protocol Last Admin: 03/13/25 09:23 Dose: 20 mg Magnesium Hydroxide (Milk Of Magnesia 30 Ml Oral.Susp) 30 ml PO DAILY PRN PRN Reason: Constipation Last Admin: 02/04/25 14:59 Dose: 30 ml Metformin HCl (Metformin Hcl Er 500 Mg Tab.Er.24h) 1,000 mg PO DAILY [facility] Last Admin: 03/14/25 08:34 Dose: 1,000 mg Mirtazapine (Mirtazapine 30 Mg Tablet) 30 mg PO BEDTIME DESIRAE Last Admin: 03/13/25 20:41 Dose: 30 mg Nicotine Polacrilex (Nicotine Polacrilex 2 Mg Gum) 4 mg BUCCAL Q2H PRN PRN Reason: Nicotine Cravings Olanzapine (Olanzapine 10 Mg Tablet) 20 mg PO BEDTIME DESIRAE Last Admin: 03/13/25 20:41 Dose: 20 mg Olanzapine (Olanzapine 10 Mg Vial) 10 mg IM BID PRN PRN Reason: PO refusal Last Admin: 12/21/24 10:22 Dose: 10 mg Olanzapine (Olanzapine Odt 10 Mg Tab.Rapdis) 10 mg TRANSLINGU BID PRN PRN Reason: agitation Last Admin: 01/14/25 12:16 Dose: 10 mg Oxcarbazepine (Oxcarbazepine 300 Mg Tablet) 300 mg PO BEDTIME DESIRAE Last Admin: 03/13/25 20:41 Dose: 300 mg Primidone (Primidone 50 Mg Tablet) 25 mg PO BID [facility] Last Admin: 03/14/25 08:33 Dose: 25 mg Sertraline HCl (Sertraline Hcl 100 Mg Tablet) 100 mg PO BEDTIME [facility] Last Admin: 03/13/25 20:41 Dose: 100 mg Trazodone HCl (Trazodone Hcl 50 Mg Tablet) 50 mg PO BEDTIME PRN PRN Reason: Insomnia Home Medications ?Medication ?Instructions ?Recorded ?Confirmed ?Last Taken ?Type benztropine 1 mg tablet 1 mg PO BEDTIME 10/14/24 10/14/24 10/13/24 History divalproex 250 mg tablet,delayed 250 mg PO BEDTIME 10/14/24 10/14/24 10/14/24 History release divalproex 500 mg tablet,extended 500 mg PO BEDTIME 10/14/24 10/14/24 10/13/24 20:00 History release 24 hr empagliflozin 10 mg tablet 10 mg PO DAILY 10/14/24 10/14/24 10/14/24 09:00 History (Jardiance) furosemide 20 mg tablet 20 mg PO DAILY 10/14/24 10/14/24 10/14/24 09:00 History metformin 500 mg tablet,extended 500 mg PO BID 10/14/24 10/14/24 10/14/24 08:00 History release 24 hr primidone 50 mg tablet 50 mg PO BID 10/14/24 10/14/24 10/14/24 09:00 History tamsulosin 0.4 mg capsule 0.4 mg PO DAILY 10/14/24 10/14/24 10/14/24 History Physical Exam Vital Signs and Narrative: Vital Signs: Last Vital Signs Temp 98.2 F 03/14/25 08:31 Pulse 85 03/14/25 08:31 Resp 15 03/14/25 08:31 BP 98/57 L 03/14/25 08:31 Pulse Ox 100 03/14/25 08:31 O2 Del Method Room Air 03/14/25 08:31 BMI result Body Mass Index 26.7 CONST: Alert and oriented, in NAD. Well nourished HEENT: Normocephalic, atraumatic, MMM, Eyes clear, Neck supple RESP: Lungs clear, RRR even and regular HEART:,RRR, S1, S2. No murmur, no edema GI:Abdomen Soft NT, ND. + BS times four :Deferred SKIN: Warm dry and intact, no visible lesions or rashes NEURO:CN II-XII Intact bilaterally, Sensation intact. Speech clear PSYCH: Flat affect, alert and cooperative Results Labs 10/28/24 09:10 03/11/25 07:30 Assessment and Plan (1) Cough: Status: Acute Plan Cough Reported to be coughing with intake of cookies, we will obtain speech eval to rule out evidence of dysphagia. Monitor attempts notify provider if patient is febrile Type 2 diabetes Last A1c 6.5 in September Will update A1c Continues on Metformin and Jardiance HTN/HLD Continue Aytorvastatin DC lisinopril due to cough Monitor blood pressures BPH Continue Flomax Denies any issues voiding.
[2025-03-14 20:00] VITALS: BP 108/73; PULSE 68; RESP 16; TEMP 36.2; O2SAT 94
[2025-03-14] MEDS: OXcarbazepine 300 MG TABLET PO (20:17)
[2025-03-14] MEDS: Sertraline HCL 100 MG TABLET PO (20:17)
[2025-03-14] MEDS: Mirtazapine 30 MG TABLET PO (20:17)
[2025-03-14] MEDS: OLANZapine 10 MG TABLET 20 MG PO (20:17)
[2025-03-14] MEDS: traZODone HCL 50 MG TABLET PO (20:17)
[2025-03-15 08:35] VITALS: BP 117/70; PULSE 88; RESP 16; TEMP 36.4; O2SAT 99
[2025-03-15] MEDS: Empagliflozin 10 MG TABLET PO (08:36)
[2025-03-15] MEDS: Primidone 50 MG TABLET 25 MG PO ×2 (08:36→20:24)
[2025-03-15] MEDS: metFORMIN HCl ER 500 MG TAB.ER.24H 1000 MG PO (08:36)
[2025-03-15] MEDS: diazePAM 5 MG TABLET PO ×3 (08:36→20:25)
--- NOTE | 2025-03-15 14:24 | HO.PSYCHPN ---
Subjective Subjective Date of Service: 03/15/25 Reason For Visit: Anxiety, mood disorder, ASD Subjective Notes: Conditional Voluntary Interim History: Pt slept through the night. Pt denies any concerns. He reports doing well. He is taking medications as prescribed. No behavioral concerns. Medication Compliance: Yes Review of Systems Review of Systems Denies any shortness of breath, chest pain, dizziness, lightheadedness, abdominal pain or discomfort, nausea vomiting or diarrhea. Reports cough. Yes all other systems are reviewed and are negative and Unobtainable due to mental status Mental Status Exam Mental Status Exam Patient Appearance: Appropriate Patient Orientation: Person and Situation Level of Consciousness: Awake and Appropriate Patient Behavior: Guarded and Passive Mood Description: Withdrawn ( ok ) Affect Description: Withdrawn Patient Cognition Impaired: Yes Ability to Follow Directions: Fair Speech Pattern: Clear Memory Description: Remote Impaired Diagnostics Vital Signs (24Hr): Vital Signs - 24 hr 03/14/25 20:00 03/15/25 08:35 Temperature 97.2 F 97.5 F Pulse Rate 68 88 Respiratory Rate 16 16 Blood Pressure 108/73 117/70 Pulse Oximetry 94 99 Oxygen Delivery Method Room Air Room Air BMI result Body Mass Index 26.7 Labs 10/28/24 09:10 03/11/25 07:30 Imaging Radiology Impressions: ITS Impressions Hip X-Ray 01/12/25 13:30 IMPRESSION: No evidence of fracture of the bilateral hips. Electronically signed by: Kaushal Soni MD 01/12/2025 01:54 PM EDT RP Cervical Spine CT 01/14/25 07:59 IMPRESSION: Multilevel cervical spondylosis without acute fracture or trauma-related listhesis. Fleischner guidelines were followed. Electronically signed by: Abe Griffin MD 01/14/2025 09:50 AM EDT RP Head CT 01/14/25 08:30 IMPRESSION: No acute intracranial abnormality. No fracture seen. Electronically signed by: Chidi Rodriguez MD 01/17/2025 01:08 PM EDT RP Hip/Pelvis X-Ray 01/14/25 09:10 IMPRESSION: No acute fracture or dislocation. Electronically signed by: Abe Griffin MD 01/14/2025 10:35 AM EDT RP Medications Medications Current Medications Acetaminophen (Acetaminophen 325 Mg Tablet) 650 mg PO Q6H PRN PRN Reason: pain scale (1-10) Benzocaine (Throat Lozenge, Medicated Lozenge) 1 lozenge MUCOUS MEM Q2H PRN PRN Reason: Sore Throat Last Admin: 03/14/25 00:13 Dose: 1 lozenge Benztropine Mesylate (Benztropine Mesylate 1 Mg Tablet) 1 mg PO BEDTIME PRN PRN Reason: Extrapyramidal Effects Diazepam (Diazepam 10 Mg/2 Ml Cartridge) 5 mg IM TID PRN PRN Reason: PO refusal. HOLD FOR SEDATION Last Admin: 12/21/24 10:22 Dose: 5 mg Diazepam (Diazepam 5 Mg Tablet) 5 mg PO TID DESIRAE Last Admin: 03/15/25 08:36 Dose: 5 mg Empagliflozin (Empagliflozin 10 Mg Tablet) 10 mg PO DAILY DESIRAE Last Admin: 03/15/25 08:36 Dose: 10 mg Magnesium Hydroxide (Milk Of Magnesia 30 Ml Oral.Susp) 30 ml PO DAILY PRN PRN Reason: Constipation Last Admin: 02/04/25 14:59 Dose: 30 ml Metformin HCl (Metformin Hcl Er 500 Mg Tab.Er.24h) 1,000 mg PO DAILY DESIRAE Last Admin: 03/15/25 08:36 Dose: 1,000 mg Mirtazapine (Mirtazapine 30 Mg Tablet) 30 mg PO BEDTIME DESIRAE Last Admin: 03/14/25 20:17 Dose: 30 mg Nicotine Polacrilex (Nicotine Polacrilex 2 Mg Gum) 4 mg BUCCAL Q2H PRN PRN Reason: Nicotine Cravings Olanzapine (Olanzapine 10 Mg Tablet) 20 mg PO BEDTIME DESIRAE Last Admin: 03/14/25 20:17 Dose: 20 mg Olanzapine (Olanzapine 10 Mg Vial) 10 mg IM BID PRN PRN Reason: PO refusal Last Admin: 12/21/24 10:22 Dose: 10 mg Olanzapine (Olanzapine Odt 10 Mg Tab.Rapdis) 10 mg TRANSLINGU BID PRN PRN Reason: agitation Last Admin: 01/14/25 12:16 Dose: 10 mg Oxcarbazepine (Oxcarbazepine 300 Mg Tablet) 300 mg PO BEDTIME DESIRAE Last Admin: 03/14/25 20:17 Dose: 300 mg Primidone (Primidone 50 Mg Tablet) 25 mg PO BID DESIRAE Last Admin: 03/15/25 08:36 Dose: 25 mg Sertraline HCl (Sertraline Hcl 100 Mg Tablet) 100 mg PO BEDTIME DESIRAE Last Admin: 03/14/25 20:17 Dose: 100 mg Trazodone HCl (Trazodone Hcl 50 Mg Tablet) 50 mg PO BEDTIME PRN PRN Reason: Insomnia Last Admin: 03/14/25 20:17 Dose: 50 mg Allergies Allergies Allergy/AdvReac Type Severity Reaction Status Date / Time No Known Allergies Allergy Verified 10/14/24 18:14 [No Known Allergies*] Assessment & Plan Assessment & Plan (1) Mood disorder: Status: Acute Code(s): F39 - Unspecified mood [affective] disorder (2) Autism spectrum disorder: Status: Acute Code(s): F84.0 - Autistic disorder (3) Dementia: Status: Acute Code(s): F03.90 - Unspecified dementia, unspecified severity, without behavioral disturbance, psychotic disturbance, mood disturbance, and anxiety Plan Humza was admitted for safety and stabilization. His presentation is very similar to his last admission psychiatrically about a year ago and that is why his caregivers wanted to get ahead of things before he decompensated further. Current medications were reviewed and maintained. Contacts to be made with his treaters next week. 10/17: Continue current regimen and plans 10/19: Continue current tx plan and regime. 10/21: Memantine 5 mg daily- [facility], memory sx Abilify 2 mg daily-augment to antidepressants currently being used. 10/22 continue current tx plan -pt confused 10/23 Continue trials, regime and plan. 10/24: Continue regime and plan of care. 10/25 Abilify increased up to 5 mg. 10/26 keep on same treatment 10/27/24 continues with many complaints, no clear insight into self- 10/28 continue same treatment 10/29 increase Namenda to 5 mg p.o. b.i.d. and change Depakote to Depakene. Depakote level on 13/02 as per blood work of yesterday 10/30/24 - dc abilify inc olanzapine = continue depakene as he did take 5 capsules this am- prn olanzapine given - this afternoon for behaviors on unit- 10/31/24 wrote for liquid depakote option if refuses capsules, also got prn olanzapine for throwing self on floor 11/01 keep same treatment 11/02 increase Zyprexa to 20 mg p.o. q.h.s. 11/03 keep same treatment. 11/04 discontinue Depakote and start Trileptal 300 mg p.o. b.i.d.. Her healthcare proxy will bring a copy of that we are going to invoke it 11/06 increase olanzapine to 20mg po qhs and 10mg po daily. 11/07 continue tx. 12/04 continue tx. 12/05: no changes 12/06 continue tx. 12/12: continue plan of care 12/13: continue tx 12/19 continue current tx plan 12/25: appearing sedated, more of a falls risk, poorer ability to do ADLs. decrease trileptal dosing from 600 BID to 300 BID for now. 12/26: less sedated than yesterday, continue current mgmt, including 1:1, until attending can see pt in the morning. 12/30: continues less sedated. minimally interactive. continue current mgmt. 12/31: per HCP, not at baseline, over-sedated. begin valium taper. decrease valium 5 TID to 4 TID for now. per HCP and SW, HCP has been affirmed in court. IM back-up orders in place and to be enforced by nursing staff. no aggressive or agitated behaviors. 01/02: Continue current regimen and plans Plan 1. Continue with olanzapine 10 mg p.o. q.a.m. and 20 mg p.o. q.h.s., he refused p.o. he received olanzapine IM. 2. Continue with Valium 5 mg p.o. t.i.d. if he refuses he will get Valium IM. 3. We will encourage compliance. The patient had been noncompliant with sertraline, he remains dysphoric. 4. The patient has a healthcare proxy who was affirmed by court, and they want us to medicate him even if the patient does not want to be compliant. 5. At this moment the patient is slightly over-sedated with EPS but we will keep the same dose of antipsychotics since his violence has improved. 01/03/25 Continue plan of care Reassess treatment plan which includes IM medication patient has been much less aggressive than he has in the past Unclear discharge plan at this point 01/04/2025 Patient taking Valium and olanzapine regularly has IM prescribed if refuses intermittently taking medication for diabetes hypertension 01/05/25 Cont medicationhas been stabilizing try and d/c meds that are not esential simplify regimen 01/06/25 stop namenda monitor sugar / bp encourage med acceptance cont valium olanzapine 01/08/2025 Continue olanzapine Valium metformin try and taper and simplify medication as tolerated discharge planning monitor response to change in medication 01/09/25 Try and simplify med regimen d/c planning 01/11/2025 Patient generally more cooperative not agitated generally monitor blood sugar and blood pressure intermittently refuses some doses of metformin 01/12/25 Pt seen later in day seemed stable flat some balance problems noted lowwer trileptal and primidone ck ortho vs dailypt consult for balance 01/13/2025 Patient improving less reactive has not been aggressive more cooperative with treatment and medication. Discharge planning 01/14: fell this morning, per head/c-spine CT and pelvic XR, no osseus injuries. pt appears as at recent mental status. no complaints or requests other than for wheelchair. pt will have 1:1 for ambulation for now. continue current psychopharm mgmt. 01/15: Continue current management and treatment plan. 01/16: continue current management and treatment plan. 01/17 keep same treatment. 01/18 keep same treatment 01/19 keep same treatment 01/20 keep same treatment 01/21 keep same treatment 01/22: calm, cooperative, flat. no questions or complaints. stable presentation. continue current mgmt. 01/23: no change, continue current mgmt. 01/24: stable. continue current mgmt. reps from [facility] coming to [facility] pt for placement today. 01/25/2025 Patient in behavioral control vital signs stable generally accepting treatment continue discharge planning 01/26/2025 Patient generally cooperative seen in the milieu no aggression suicidality or her problematic behavior. Discharge planning strongly urged transition 01/27/2025 Patient continues to be generally stabilizing not combative agitated or threatening has remained generally calm seems safe for discharge planning much improved over time 01/28/2025 Patient seen psychiatric follow-up patient has significantly improved over the months he is calm cooperative seen watching television somewhat social at times not aggressive or combative 01/29 Continue current regime/plan. Improved. 01/31: stably improved. awaiting placement. continue current mgmt. 02/01: stable. continue current mgmt. awaiting placement. 02/02: no change in presentation or plan. 02/03: stable. continue current mgmt. 02/04/2025 Patient seen psychiatric follow-up no current behavioral difficulties no current ability to place patient in a less restricted setting 02/06: no change in presentation. continue current mgmt. 02/07/25 cont d/c planning pt has been tentatively accepted no less restrictive setting currently available 02/08/2025 Continue discharge planning patient tentatively accepted no funding source available at this time no less restrictive setting available 02/14 Patient tells insurance underwriter he is hanging in there he says it can be hard sometimes to do so but it is overall going okay. Patient took all medications today; nurse however reports that recently he seemed a little suspicious, on the verge of picking over medications. -vitals WNL -no new labs 02/15/2025 Patient states he is doing okay understands he is waiting for some form of placement. Accepting treatment vital signs unremarkable continue plan of care discharge plan 02/16/2025 No major changes patient has been waiting for placement no less restrictive setting available at this time continues to be cooperative with care no significant behavioral difficulties 02/18/2025 Vital signs stable no need to change current regimen continue discharge planning. No less restrictive setting presently available for discharge 02/19 continue treatment plan 02/22 continue tx. 02/24: no change in presentation. continue current mgmt. 02/26: no change in presentation. continue current mgmt. 02/27: drawn and withdrawn. c/o diplopia both with and without corrective lenses. continue current mgmt. 02/28/2025 Patient calm some anxiety noted future oriented continue plan of care 03/03: stable. continue current mgmt. 03/05: Continue current regimen and plans 03/06: Continue current regimen and plans 03/07 continue tx. 03/08: anxiety in good control. in milieu watching TV, appropriately responds to compliment on his shirt. awaiting placement. 03/10: no change in presentation. resting in bed, mild anxiety, blurry vision. 03/11: no change in presentation. resting in bed, blurry vision. 03/12 stable; no change in presentation; continue treatment plan 03/14 continue tx. swallowing eval ordered. lisinopril d/c by hospitalist due to low BP and chronic cough. 03/15 continue tx. Reason for continued inpatient stay Substantial Risk for: inability to function Time Spent With Patient Time: Total time managing care of this patient today ____ minutes.
--- NOTE | 2025-03-15 14:41 | MHC.SLORD ---
Speech Language Pathology Order Status: Pt seen by [employer] this afternoon for clinical swallow evaluation. Pt tolerated thin liquid via cup and puree solids without s/s aspiration. Pt given viri cracker dipped in yogurt; presented w/ strong cough red in face. Pt refusing recommendations to downgrade solids and also refusing recommended strategies to reduce risk of aspiration such as alternating liquids/solids. Per discussion w/ nursing, decision is to downgrade diet to chopped/advanced solids (NDD3) pending re-evaluation by [employer] tomorrow.
[2025-03-15 20:00] VITALS: BP 101/60; PULSE 72; RESP 16; TEMP 36.9; O2SAT 95
[2025-03-15] MEDS: Sertraline HCL 100 MG TABLET PO (20:24)
[2025-03-15] MEDS: OLANZapine 10 MG TABLET 20 MG PO (20:25)
[2025-03-15] MEDS: Mirtazapine 30 MG TABLET PO (20:25)
[2025-03-15] MEDS: OXcarbazepine 300 MG TABLET PO (20:25)
[2025-03-16 10:30] VITALS: BP 133/85; PULSE 76; RESP 18; TEMP 36.6; O2SAT 96
[2025-03-16] MEDS: Primidone 50 MG TABLET 25 MG PO ×2 (10:32→20:02)
[2025-03-16] MEDS: diazePAM 5 MG TABLET PO ×3 (10:32→20:01)
[2025-03-16] MEDS: Empagliflozin 10 MG TABLET PO (10:32)
[2025-03-16] MEDS: metFORMIN HCl ER 500 MG TAB.ER.24H 1000 MG PO (10:33)
--- NOTE | 2025-03-16 13:32 | P.PNPSI_ITS ---
Subjective Subjective Date of Service: 03/16/25 Reason For Visit: Anxiety, mood disorder, ASD Interim History: in milieu at lunch time. drinking milk from a straw. asking about when he might be discharged. reports he is eating and sleeping well, showering. states his anxiety is OK. no other complaints or requests. per staff, refusing chopped diet, insisting on regular. otherwise no complaints or requests. Mental Status Exam Mental Status Exam Patient Appearance: Appropriate Patient Orientation: Person and Situation Level of Consciousness: Awake and Appropriate Patient Behavior: Guarded and Passive Mood Description: Withdrawn ( ok ) Affect Description: Withdrawn Patient Cognition Impaired: Yes Ability to Follow Directions: Fair Speech Pattern: Clear Hallucinations: None Delusions: Not Present Thought Process: Distracted and Slowed Thinking Thought Content: positive for [place] and positive for Poverty of Content Judgement: Poor Diagnostics Vital Signs (24Hr): Vital Signs - 24 hr 03/15/25 20:00 03/16/25 10:30 Temperature 98.4 F 97.9 F Pulse Rate 72 76 Respiratory Rate 16 18 Blood Pressure 101/60 133/85 Pulse Oximetry 95 96 Oxygen Delivery Method Room Air Room Air BMI result Body Mass Index 26.7 Labs 10/28/24 09:10 03/11/25 07:30 Imaging Radiology Impressions: ITS Impressions Hip X-Ray 01/12/25 13:30 IMPRESSION: No evidence of fracture of the bilateral hips. Electronically signed by: Kaushal Soni MD 01/12/2025 01:54 PM EDT RP Cervical Spine CT 01/14/25 07:59 IMPRESSION: Multilevel cervical spondylosis without acute fracture or trauma-related listhesis. Fleischner guidelines were followed. Electronically signed by: Abe Griffin MD 01/14/2025 09:50 AM EDT RP Head CT 01/14/25 08:30 IMPRESSION: No acute intracranial abnormality. No fracture seen. Electronically signed by: Chidi Rodriguez MD 01/17/2025 01:08 PM EDT RP Hip/Pelvis X-Ray 01/14/25 09:10 IMPRESSION: No acute fracture or dislocation. Electronically signed by: Abe Griffin MD 01/14/2025 10:35 AM EDT RP Medications Medications Current Medications Acetaminophen (Acetaminophen 325 Mg Tablet) 650 mg PO Q6H PRN PRN Reason: pain scale (1-10) Benzocaine (Throat Lozenge, Medicated Lozenge) 1 lozenge MUCOUS MEM Q2H PRN PRN Reason: Sore Throat Last Admin: 03/14/25 00:13 Dose: 1 lozenge Benztropine Mesylate (Benztropine Mesylate 1 Mg Tablet) 1 mg PO BEDTIME PRN PRN Reason: Extrapyramidal Effects Diazepam (Diazepam 10 Mg/2 Ml Cartridge) 5 mg IM TID PRN PRN Reason: PO refusal. HOLD FOR SEDATION Last Admin: 12/21/24 10:22 Dose: 5 mg Diazepam (Diazepam 5 Mg Tablet) 5 mg PO TID DESIRAE Last Admin: 03/16/25 10:32 Dose: 5 mg Empagliflozin (Empagliflozin 10 Mg Tablet) 10 mg PO DAILY DESIRAE Last Admin: 03/16/25 10:32 Dose: 10 mg Magnesium Hydroxide (Milk Of Magnesia 30 Ml Oral.Susp) 30 ml PO DAILY PRN PRN Reason: Constipation Last Admin: 02/04/25 14:59 Dose: 30 ml Metformin HCl (Metformin Hcl Er 500 Mg Tab.Er.24h) 1,000 mg PO DAILY DESIRAE Last Admin: 03/16/25 10:33 Dose: 1,000 mg Mirtazapine (Mirtazapine 30 Mg Tablet) 30 mg PO BEDTIME DESIRAE Last Admin: 03/15/25 20:25 Dose: 30 mg Nicotine Polacrilex (Nicotine Polacrilex 2 Mg Gum) 4 mg BUCCAL Q2H PRN PRN Reason: Nicotine Cravings Olanzapine (Olanzapine 10 Mg Tablet) 20 mg PO BEDTIME DESIRAE Last Admin: 03/15/25 20:25 Dose: 20 mg Olanzapine (Olanzapine 10 Mg Vial) 10 mg IM BID PRN PRN Reason: PO refusal Last Admin: 12/21/24 10:22 Dose: 10 mg Olanzapine (Olanzapine Odt 10 Mg Tab.Rapdis) 10 mg TRANSLINGU BID PRN PRN Reason: agitation Last Admin: 01/14/25 12:16 Dose: 10 mg Oxcarbazepine (Oxcarbazepine 300 Mg Tablet) 300 mg PO BEDTIME DESIRAE Last Admin: 03/15/25 20:25 Dose: 300 mg Primidone (Primidone 50 Mg Tablet) 25 mg PO BID DESIRAE Last Admin: 03/16/25 10:32 Dose: 25 mg Sertraline HCl (Sertraline Hcl 100 Mg Tablet) 100 mg PO BEDTIME DESIRAE Last Admin: 03/15/25 20:24 Dose: 100 mg Trazodone HCl (Trazodone Hcl 50 Mg Tablet) 50 mg PO BEDTIME PRN PRN Reason: Insomnia Last Admin: 03/14/25 20:17 Dose: 50 mg Allergies Allergies Allergy/AdvReac Type Severity Reaction Status Date / Time No Known Allergies Allergy Verified 10/14/24 18:14 [No Known Allergies*] Assessment & Plan Assessment & Plan (1) Mood disorder: Status: Acute Code(s): F39 - Unspecified mood [affective] disorder (2) Autism spectrum disorder: Status: Acute Code(s): F84.0 - Autistic disorder (3) Dementia: Status: Acute Code(s): F03.90 - Unspecified dementia, unspecified severity, without behavioral disturbance, psychotic disturbance, mood disturbance, and anxiety Plan Humza was admitted for safety and stabilization. His presentation is very similar to his last admission psychiatrically about a year ago and that is why his caregivers wanted to get ahead of things before he decompensated further. Current medications were reviewed and maintained. Contacts to be made with his treaters next week. 10/17: Continue current regimen and plans 10/19: Continue current tx plan and regime. 10/21: Memantine 5 mg daily- [facility], memory sx Abilify 2 mg daily-augment to antidepressants currently being used. 10/22 continue current tx plan -pt confused 10/23 Continue trials, regime and plan. 10/24: Continue regime and plan of care. 10/25 Abilify increased up to 5 mg. 10/26 keep on same treatment 10/27/24 continues with many complaints, no clear insight into self- 10/28 continue same treatment 10/29 increase Namenda to 5 mg p.o. b.i.d. and change Depakote to Depakene. Depakote level on 13/02 as per blood work of yesterday 10/30/24 - dc abilify inc olanzapine = continue depakene as he did take 5 capsules this am- prn olanzapine given - this afternoon for behaviors on unit- 10/31/24 wrote for liquid depakote option if refuses capsules, also got prn olanzapine for throwing self on floor 11/01 keep same treatment 11/02 increase Zyprexa to 20 mg p.o. q.h.s. 11/03 keep same treatment. 11/04 discontinue Depakote and start Trileptal 300 mg p.o. b.i.d.. Her healthcare proxy will bring a copy of that we are going to invoke it 11/06 increase olanzapine to 20mg po qhs and 10mg po daily. 11/07 continue tx. 12/04 continue tx. 12/05: no changes 12/06 continue tx. 12/12: continue plan of care 12/13: continue tx 12/19 continue current tx plan 12/25: appearing sedated, more of a falls risk, poorer ability to do ADLs. decrease trileptal dosing from 600 BID to 300 BID for now. 12/26: less sedated than yesterday, continue current mgmt, including 1:1, until attending can see pt in the morning. 12/30: continues less sedated. minimally interactive. continue current mgmt. 12/31: per HCP, not at baseline, over-sedated. begin valium taper. decrease valium 5 TID to 4 TID for now. per HCP and SW, HCP has been affirmed in court. IM back-up orders in place and to be enforced by nursing staff. no aggressive or agitated behaviors. 01/02: Continue current regimen and plans Plan 1. Continue with olanzapine 10 mg p.o. q.a.m. and 20 mg p.o. q.h.s., he refused p.o. he received olanzapine IM. 2. Continue with Valium 5 mg p.o. t.i.d. if he refuses he will get Valium IM. 3. We will encourage compliance. The patient had been noncompliant with sertraline, he remains dysphoric. 4. The patient has a healthcare proxy who was affirmed by court, and they want us to medicate him even if the patient does not want to be compliant. 5. At this moment the patient is slightly over-sedated with EPS but we will keep the same dose of antipsychotics since his violence has improved. 01/03/25 Continue plan of care Reassess treatment plan which includes IM medication patient has been much less aggressive than he has in the past Unclear discharge plan at this point 01/04/2025 Patient taking Valium and olanzapine regularly has IM prescribed if refuses intermittently taking medication for diabetes hypertension 01/05/25 Cont medicationhas been stabilizing try and d/c meds that are not esential simplify regimen 01/06/25 stop namenda monitor sugar / bp encourage med acceptance cont valium olanzapine 01/08/2025 Continue olanzapine Valium metformin try and taper and simplify medication as tolerated discharge planning monitor response to change in medication 01/09/25 Try and simplify med regimen d/c planning 01/11/2025 Patient generally more cooperative not agitated generally monitor blood sugar and blood pressure intermittently refuses some doses of metformin 01/12/25 Pt seen later in day seemed stable flat some balance problems noted lowwer trileptal and primidone ck ortho vs dailypt consult for balance 01/13/2025 Patient improving less reactive has not been aggressive more cooperative with treatment and medication. Discharge planning 01/14: fell this morning, per head/c-spine CT and pelvic XR, no osseus injuries. pt appears as at recent mental status. no complaints or requests other than for wheelchair. pt will have 1:1 for ambulation for now. continue current psychopharm mgmt. 01/15: Continue current management and treatment plan. 01/16: continue current management and treatment plan. 01/17 keep same treatment. 01/18 keep same treatment 01/19 keep same treatment 01/20 keep same treatment 01/21 keep same treatment 01/22: calm, cooperative, flat. no questions or complaints. stable presentation. continue current mgmt. 01/23: no change, continue current mgmt. 01/24: stable. continue current mgmt. reps from [facility] coming to [facility] pt for placement today. 01/25/2025 Patient in behavioral control vital signs stable generally accepting treatment continue discharge planning 01/26/2025 Patient generally cooperative seen in the milieu no aggression suicidality or her problematic behavior. Discharge planning strongly urged transition 01/27/2025 Patient continues to be generally stabilizing not combative agitated or threatening has remained generally calm seems safe for discharge planning much improved over time 01/28/2025 Patient seen psychiatric follow-up patient has significantly improved over the months he is calm cooperative seen watching television somewhat social at times not aggressive or combative 01/29 Continue current regime/plan. Improved. 01/31: stably improved. awaiting placement. continue current mgmt. 02/01: stable. continue current mgmt. awaiting placement. 02/02: no change in presentation or plan. 02/03: stable. continue current mgmt. 02/04/2025 Patient seen psychiatric follow-up no current behavioral difficulties no current ability to place patient in a less restricted setting 02/06: no change in presentation. continue current mgmt. 02/07/25 cont d/c planning pt has been tentatively accepted no less restrictive setting currently available 02/08/2025 Continue discharge planning patient tentatively accepted no funding source available at this time no less restrictive setting available 02/14 Patient tells procedure writer he is hanging in there he says it can be hard sometimes to do so but it is overall going okay. Patient took all medications today; nurse however reports that recently he seemed a little suspicious, on the verge of picking over medications. -vitals WNL -no new labs 02/15/2025 Patient states he is doing okay understands he is waiting for some form of placement. Accepting treatment vital signs unremarkable continue plan of care discharge plan 02/16/2025 No major changes patient has been waiting for placement no less restrictive setting available at this time continues to be cooperative with care no significant behavioral difficulties 02/18/2025 Vital signs stable no need to change current regimen continue discharge planning. No less restrictive setting presently available for discharge 02/19 continue treatment plan 02/22 continue tx. 02/24: no change in presentation. continue current mgmt. 02/26: no change in presentation. continue current mgmt. 02/27: drawn and withdrawn. c/o diplopia both with and without corrective lenses. continue current mgmt. 02/28/2025 Patient calm some anxiety noted future oriented continue plan of care 03/03: stable. continue current mgmt. 03/05: Continue current regimen and plans 03/06: Continue current regimen and plans 03/07 continue tx. 03/08: anxiety in good control. in milieu watching TV, appropriately responds to compliment on his shirt. awaiting placement. 03/10: no change in presentation. resting in bed, mild anxiety, blurry vision. 03/11: no change in presentation. resting in bed, blurry vision. 03/12 stable; no change in presentation; continue treatment plan 03/14 continue tx. swallowing eval ordered. lisinopril d/c by hospitalist due to low BP and chronic cough. 03/15 continue tx. 03/16: pt refusing chopped diet. per personal communication with RN Daksha, speech and swallow believed his difficulty on eval might have been behavioral and they were being very conservative in ordering the chopped diet but that if it were a problem they were not opposed to reverting to prior diet and continuing to observe. decision made to return to regular diet today due to pt's opposition to chopped diet. pt otherwise stable, reports his anxiety is under control and he is eating, sleeping, showering fine. asking about decision on placement. Reason for continued inpatient stay Substantial Risk for: inability to function and rapid decompensation Time Spent With Patient Time: Total time managing care of this patient today _25___ minutes.
--- NOTE | 2025-03-16 15:53 | MHC.SLORD ---
Speech Language Pathology Order Status: Pt seen for dysphagia treatment. Pt lying in bed, politely refused any PO, reported he is satisfied with current diet. No concerns reported by staff. REPORTING PROCESS CONSULTANT to follow as indicated.
[2025-03-16 20:00] VITALS: BP 131/81; PULSE 80; RESP 18; TEMP 36.5; O2SAT 98
[2025-03-16] MEDS: Mirtazapine 30 MG TABLET PO (20:01)
[2025-03-16] MEDS: OLANZapine 10 MG TABLET 20 MG PO (20:01)
[2025-03-16] MEDS: OXcarbazepine 300 MG TABLET PO (20:02)
[2025-03-16] MEDS: Sertraline HCL 100 MG TABLET PO (20:02)
[2025-03-17 08:00] VITALS: BP 126/74; PULSE 77; RESP 16; TEMP 36.6; O2SAT 98
[2025-03-17] MEDS: diazePAM 5 MG TABLET PO ×3 (08:06→20:31)
[2025-03-17] MEDS: Empagliflozin 10 MG TABLET PO (08:06)
[2025-03-17] MEDS: Primidone 50 MG TABLET 25 MG PO ×2 (08:06→20:31)
[2025-03-17] MEDS: metFORMIN HCl ER 500 MG TAB.ER.24H 1000 MG PO (08:06)
[2025-03-17 12:56] VITALS: BMI 26.6
[2025-03-17] MEDS: Throat Lozenge, Medicated LOZENGE 1 LOZENGE MUCOUS MEM (13:19)
--- NOTE | 2025-03-17 14:46 | MHC.SL.SWA ---
Speech Pathologist Impression: Risk of Aspiration Due to: Reduced Cognition Dysphasia Diet Status: Recommend CONTINUE on current diet of Regular with Thin liquids, with pills whole with liquid. Encourage patient to alternate bites of food with sips of liquid, to reduce any perceived throat irritation/coughing during meal. Liquid Consistency and Strategies for Safe Swallow: Liquid Intake Recommendation: Thin Liquid Intake Strategies: Small Sips Solid Food Consistency: Dietary Recommendations: Regular Additional Modifications to Solid Foods: Oral Medication Intake: Whole with Liquid Please contact the pharmacy regarding appropriate crushable or liquid drug formulations that are available whenever modified delivery is recommended. Compensatory Strategies and Precautions to be Taken for Safe Swallow: Sitting Upright (90 deg) Small Bites and Sips Alternate Liquids/Solids Supervision While Eating and Drinking for Safe Swallow: Tray Set Up Foods to Avoid: Swallowing Recommended Treatments: Recommendation for Speech: Inpatient Speech Therapy Comment: Patient observed at lunch for toleration of diet, which was continued as regular/thin. Patient had a turkey sandwich, fruit salad and pudding, along with milks and juices. SHADOWGRAPH SCALE OPERATOR was noted to transfer juices to cups, which patient prefers, and during observation, YEAST MAKER also opened milk and inserted straw, encouraging patient to drink while eating main meal. Patient observed independently eating turkey sandwich, taking relatively small bites and chewing thoroughly and swallowing with no apparent difficulty. However intermittently, patient would occasionally cough loudly and repeatedly (not linked with swallow, but while eating). After YEAST MAKER opened milk, patient did begin to occasionally take sips of liquid while eating, with no clinical signs of aspiration or coughing on liquids. Coughing while eating sandwich appeared to be behavioral, likely a habitual behavior. Patient was otherwise independent and appeared and then stated he was enjoying his meal. Recommend CONTINUE on current diet of Regular with Thin liquids, with pills whole with liquid. Encourage patient to alternate bites of food with sips of liquid, to reduce any perceived throat irritation/coughing during meal. Patient is on least restrictive diet, coughing behavior presents as behaviorally based and not an aspiration sign or risk. No further speech service indicated at this time, YEAST MAKER will d/c. Please recontact if any additional concerns arise. Frequency/Duration: Date Range for Service Req: Timeline to reassess: Motor Man Clinican/Clinical Fellow: No Supervisory Statement: I have reviewed and agree with the student/clinical fellow's documentation: N/A Speech Language Pathologist: Marah Jack M.A., [facility]YEAST [facility]
--- NOTE | 2025-03-17 16:56 | P.PNPSI_ITS ---
Subjective Subjective Date of Service: 03/17/25 Reason For Visit: Anxiety, mood disorder, ASD Subjective Notes: Conditional Voluntary Healthcare Proxy: Yes Interim History: Pt slept through the night. Pt denies any concerns. He is taking medications as prescribed. no behavioral concerns. Review of Systems Review of Systems Denies any shortness of breath, chest pain, dizziness, lightheadedness, abdominal pain or discomfort, nausea vomiting or diarrhea. Reports cough. Yes all other systems are reviewed and are negative and Unobtainable due to mental status Mental Status Exam Mental Status Exam Patient Appearance: Appropriate Patient Orientation: Person and Situation Level of Consciousness: Awake and Appropriate Patient Behavior: Guarded and Passive Mood Description: Withdrawn ( ok ) Affect Description: Withdrawn Patient Cognition Impaired: Yes Ability to Follow Directions: Fair Speech Pattern: Clear Memory Description: Remote Impaired Diagnostics Vital Signs (24Hr): Vital Signs - 24 hr 03/16/25 20:00 03/17/25 08:00 Temperature 97.7 F 97.9 F Pulse Rate 80 77 Respiratory Rate 18 16 Blood Pressure 131/81 126/74 Pulse Oximetry 98 98 Oxygen Delivery Method Room Air Room Air BMI result Body Mass Index 26.6 Labs 10/28/24 09:10 03/11/25 07:30 Imaging Radiology Impressions: ITS Impressions Hip X-Ray 01/12/25 13:30 IMPRESSION: No evidence of fracture of the bilateral hips. Electronically signed by: Kaushal Soni MD 01/12/2025 01:54 PM EDT RP Cervical Spine CT 01/14/25 07:59 IMPRESSION: Multilevel cervical spondylosis without acute fracture or trauma-related listhesis. Fleischner guidelines were followed. Electronically signed by: Abe Griffin MD 01/14/2025 09:50 AM EDT RP Head CT 01/14/25 08:30 IMPRESSION: No acute intracranial abnormality. No fracture seen. Electronically signed by: Chidi Rodriguez MD 01/17/2025 01:08 PM EDT RP Hip/Pelvis X-Ray 01/14/25 09:10 IMPRESSION: No acute fracture or dislocation. Electronically signed by: Abe Griffin MD 01/14/2025 10:35 AM EDT RP Medications Medications Current Medications Acetaminophen (Acetaminophen 325 Mg Tablet) 650 mg PO Q6H PRN PRN Reason: pain scale (1-10) Benzocaine (Throat Lozenge, Medicated Lozenge) 1 lozenge MUCOUS MEM Q2H PRN PRN Reason: Sore Throat Last Admin: 03/17/25 13:19 Dose: 1 lozenge Benztropine Mesylate (Benztropine Mesylate 1 Mg Tablet) 1 mg PO BEDTIME PRN PRN Reason: Extrapyramidal Effects Diazepam (Diazepam 10 Mg/2 Ml Cartridge) 5 mg IM TID PRN PRN Reason: PO refusal. HOLD FOR SEDATION Last Admin: 12/21/24 10:22 Dose: 5 mg Diazepam (Diazepam 5 Mg Tablet) 5 mg PO TID [facility] Last Admin: 03/17/25 15:34 Dose: 5 mg Empagliflozin (Empagliflozin 10 Mg Tablet) 10 mg PO DAILY [facility] Last Admin: 03/17/25 08:06 Dose: 10 mg Magnesium Hydroxide (Milk Of Magnesia 30 Ml Oral.Susp) 30 ml PO DAILY PRN PRN Reason: Constipation Last Admin: 02/04/25 14:59 Dose: 30 ml Metformin HCl (Metformin Hcl Er 500 Mg Tab.Er.24h) 1,000 mg PO DAILY [facility] Last Admin: 03/17/25 08:06 Dose: 1,000 mg Mirtazapine (Mirtazapine 30 Mg Tablet) 30 mg PO BEDTIME [facility] Last Admin: 03/16/25 20:01 Dose: 30 mg Nicotine Polacrilex (Nicotine Polacrilex 2 Mg Gum) 4 mg BUCCAL Q2H PRN PRN Reason: Nicotine Cravings Olanzapine (Olanzapine 10 Mg Tablet) 20 mg PO BEDTIME [facility] Last Admin: 03/16/25 20:01 Dose: 20 mg Olanzapine (Olanzapine 10 Mg Vial) 10 mg IM BID PRN PRN Reason: PO refusal Last Admin: 12/21/24 10:22 Dose: 10 mg Olanzapine (Olanzapine Odt 10 Mg Tab.Rapdis) 10 mg TRANSLINGU BID PRN PRN Reason: agitation Last Admin: 01/14/25 12:16 Dose: 10 mg Oxcarbazepine (Oxcarbazepine 300 Mg Tablet) 300 mg PO BEDTIME [facility] Last Admin: 03/16/25 20:02 Dose: 300 mg Primidone (Primidone 50 Mg Tablet) 25 mg PO BID [facility] Last Admin: 03/17/25 08:06 Dose: 25 mg Sertraline HCl (Sertraline Hcl 100 Mg Tablet) 100 mg PO BEDTIME [facility] Last Admin: 03/16/25 20:02 Dose: 100 mg Trazodone HCl (Trazodone Hcl 50 Mg Tablet) 50 mg PO BEDTIME PRN PRN Reason: Insomnia Last Admin: 03/14/25 20:17 Dose: 50 mg Allergies Allergies Allergy/AdvReac Type Severity Reaction Status Date / Time No Known Allergies Allergy Verified 10/14/24 18:14 [No Known Allergies*] Assessment & Plan Assessment & Plan (1) Mood disorder: Status: Acute Code(s): F39 - Unspecified mood [affective] disorder (2) Autism spectrum disorder: Status: Acute Code(s): F84.0 - Autistic disorder (3) Dementia: Status: Acute Code(s): F03.90 - Unspecified dementia, unspecified severity, without behavioral disturbance, psychotic disturbance, mood disturbance, and anxiety Plan Humza was admitted for safety and stabilization. His presentation is very similar to his last admission psychiatrically about a year ago and that is why his caregivers wanted to get ahead of things before he decompensated further. Current medications were reviewed and maintained. Contacts to be made with his treaters next week. 10/17: Continue current regimen and plans 10/19: Continue current tx plan and regime. 10/21: Memantine 5 mg daily- [facility], memory sx Abilify 2 mg daily-augment to antidepressants currently being used. 10/22 continue current tx plan -pt confused 10/23 Continue trials, regime and plan. 10/24: Continue regime and plan of care. 10/25 Abilify increased up to 5 mg. 10/26 keep on same treatment 10/27/24 continues with many complaints, no clear insight into self- 10/28 continue same treatment 10/29 increase Namenda to 5 mg p.o. b.i.d. and change Depakote to Depakene. Depakote level on 13/02 as per blood work of yesterday 10/30/24 - dc abilify inc olanzapine = continue depakene as he did take 5 capsules this am- prn olanzapine given - this afternoon for behaviors on unit- 10/31/24 wrote for liquid depakote option if refuses capsules, also got prn olanzapine for throwing self on floor 11/01 keep same treatment 11/02 increase Zyprexa to 20 mg p.o. q.h.s. 11/03 keep same treatment. 11/04 discontinue Depakote and start Trileptal 300 mg p.o. b.i.d.. Her healthcare proxy will bring a copy of that we are going to invoke it 11/06 increase olanzapine to 20mg po qhs and 10mg po daily. 11/07 continue tx. 12/04 continue tx. 12/05: no changes 12/06 continue tx. 12/12: continue plan of care 12/13: continue tx 12/19 continue current tx plan 12/25: appearing sedated, more of a falls risk, poorer ability to do ADLs. decrease trileptal dosing from 600 BID to 300 BID for now. 12/26: less sedated than yesterday, continue current mgmt, including 1:1, until attending can see pt in the morning. 12/30: continues less sedated. minimally interactive. continue current mgmt. 12/31: per HCP, not at baseline, over-sedated. begin valium taper. decrease valium 5 TID to 4 TID for now. per HCP and SW, HCP has been affirmed in court. IM back-up orders in place and to be enforced by nursing staff. no aggressive or agitated behaviors. 01/02: Continue current regimen and plans Plan 1. Continue with olanzapine 10 mg p.o. q.a.m. and 20 mg p.o. q.h.s., he refused p.o. he received olanzapine IM. 2. Continue with Valium 5 mg p.o. t.i.d. if he refuses he will get Valium IM. 3. We will encourage compliance. The patient had been noncompliant with sertraline, he remains dysphoric. 4. The patient has a healthcare proxy who was affirmed by court, and they want us to medicate him even if the patient does not want to be compliant. 5. At this moment the patient is slightly over-sedated with EPS but we will keep the same dose of antipsychotics since his violence has improved. 01/03/25 Continue plan of care Reassess treatment plan which includes IM medication patient has been much less aggressive than he has in the past Unclear discharge plan at this point 01/04/2025 Patient taking Valium and olanzapine regularly has IM prescribed if refuses intermittently taking medication for diabetes hypertension 01/05/25 Cont medicationhas been stabilizing try and d/c meds that are not esential simplify regimen 01/06/25 stop namenda monitor sugar / bp encourage med acceptance cont valium olanzapine 01/08/2025 Continue olanzapine Valium metformin try and taper and simplify medication as tolerated discharge planning monitor response to change in medication 01/09/25 Try and simplify med regimen d/c planning 01/11/2025 Patient generally more cooperative not agitated generally monitor blood sugar and blood pressure intermittently refuses some doses of metformin 01/12/25 Pt seen later in day seemed stable flat some balance problems noted lowwer trileptal and primidone ck ortho vs dailypt consult for balance 01/13/2025 Patient improving less reactive has not been aggressive more cooperative with treatment and medication. Discharge planning 01/14: fell this morning, per head/c-spine CT and pelvic XR, no osseus injuries. pt appears as at recent mental status. no complaints or requests other than for wheelchair. pt will have 1:1 for ambulation for now. continue current psychopharm mgmt. 01/15: Continue current management and treatment plan. 01/16: continue current management and treatment plan. 01/17 keep same treatment. 01/18 keep same treatment 01/19 keep same treatment 01/20 keep same treatment 01/21 keep same treatment 01/22: calm, cooperative, flat. no questions or complaints. stable presentation. continue current mgmt. 01/23: no change, continue current mgmt. 01/24: stable. continue current mgmt. reps from [facility] [place] [facility] today. 01/25/2025 Patient in behavioral control vital signs stable generally accepting treatment continue discharge planning 01/26/2025 Patient generally cooperative seen in the milieu no aggression suicidality or her problematic behavior. Discharge planning strongly urged transition 01/27/2025 Patient continues to be generally stabilizing not combative agitated or threatening has remained generally calm seems safe for discharge planning much improved over time 01/28/2025 Patient seen psychiatric follow-up patient has significantly improved over the months he is calm cooperative seen watching television somewhat social at times not aggressive or combative 01/29 Continue current regime/plan. Improved. 01/31: stably improved. awaiting placement. continue current mgmt. 02/01: stable. continue current mgmt. awaiting placement. 02/02: no change in presentation or plan. 02/03: stable. continue current mgmt. 02/04/2025 Patient seen psychiatric follow-up no current behavioral difficulties no current ability to place patient in a less restricted setting 02/06: no change in presentation. continue current mgmt. 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 Patient took all medications today; nurse however reports that recently he seemed a little suspicious, on the verge of picking over medications. -vitals WNL -no new labs 02/15/2025 Patient states he is doing okay understands he is waiting for some form of placement. Accepting treatment vital signs unremarkable continue plan of care discharge plan 02/16/2025 No major changes patient has been waiting for placement no less restrictive setting available at this time continues to be cooperative with care no significant behavioral difficulties 02/18/2025 Vital signs stable no need to change current regimen continue discharge planning. No less restrictive setting presently available for discharge 02/19 continue treatment plan 02/22 continue tx. 02/24: no change in presentation. continue current mgmt. 02/26: no change in presentation. continue current mgmt. 02/27: drawn and withdrawn. c/o diplopia both with and without corrective lenses. continue current mgmt. 02/28/2025 Patient calm some anxiety noted future oriented continue plan of care 03/03: stable. continue current mgmt. 03/05: Continue current regimen and plans 03/06: Continue current regimen and plans 03/07 continue tx. 03/08: anxiety in good control. in milieu watching TV, appropriately responds to compliment on his shirt. awaiting placement. 03/10: no change in presentation. resting in bed, mild anxiety, blurry vision. 03/11: no change in presentation. resting in bed, blurry vision. 03/12 stable; no change in presentation; continue treatment plan 03/14 continue tx. swallowing eval ordered. lisinopril d/c by hospitalist due to low BP and chronic cough. 03/15 continue tx. 03/16: pt refusing chopped diet. per personal communication with TAMMY Crooks, speech and swallow believed his difficulty on eval might have been behavioral and they were being very conservative in ordering the chopped diet but that if it were a problem they were not opposed to reverting to prior diet and continuing to observe. decision made to return to regular diet today due to pt's opposition to chopped diet. pt otherwise stable, reports his anxiety is under control and he is eating, sleeping, showering fine. asking about decision on placement. 03/17 continue tx. Reason for continued inpatient stay Substantial Risk for: inability to function Time Spent With Patient Time: Total time managing care of this patient today ____ minutes.
[2025-03-17 20:00] VITALS: BP 125/63; PULSE 69; RESP 18; TEMP 36.5; O2SAT 100
[2025-03-17] MEDS: Sertraline HCL 100 MG TABLET PO (20:31)
[2025-03-17] MEDS: OXcarbazepine 300 MG TABLET PO (20:31)
[2025-03-17] MEDS: OLANZapine 10 MG TABLET 20 MG PO (20:31)
[2025-03-17] MEDS: Mirtazapine 30 MG TABLET PO (20:31)
[2025-03-18 08:00] VITALS: BP 101/60; PULSE 85; RESP 20; TEMP 36.9; O2SAT 98
[2025-03-18] MEDS: Empagliflozin 10 MG TABLET PO (09:06)
[2025-03-18] MEDS: diazePAM 5 MG TABLET PO ×3 (09:07→21:35)
[2025-03-18] MEDS: Primidone 50 MG TABLET 25 MG PO ×2 (09:07→21:35)
[2025-03-18] MEDS: metFORMIN HCl ER 500 MG TAB.ER.24H 1000 MG PO (09:07)
[2025-03-18 09:10] LABS: Estimated Glomerular Filt Rate > 60
--- NOTE | 2025-03-18 14:15 | HO.PSYCHPN ---
Subjective Subjective Date of Service: 03/18/25 Reason For Visit: Anxiety, mood disorder, ASD Interim History: no change in presentation. endorses some anxiety today. per staff, no notable events or behaviors. Mental Status Exam Mental Status Exam Patient Appearance: Appropriate Patient Orientation: Person and Situation Level of Consciousness: Awake and Appropriate Patient Behavior: Guarded and Passive Mood Description: Withdrawn ( ok ) Affect Description: Withdrawn Patient Cognition Impaired: Yes Ability to Follow Directions: Fair Speech Pattern: Clear Hallucinations: None Delusions: Not Present Thought Process: Distracted and Slowed Thinking Thought Content: positive for [place] and positive for Poverty of Content Judgement: Poor Diagnostics Vital Signs (24Hr): Vital Signs - 24 hr 03/17/25 20:00 03/18/25 08:00 Temperature 97.7 F 98.4 F Pulse Rate 69 85 Respiratory Rate 18 20 Blood Pressure 125/63 101/60 Pulse Oximetry 100 98 Oxygen Delivery Method Room Air Room Air BMI result Body Mass Index 26.6 Labs 10/28/24 09:10 03/18/25 08:50 Labs: Laboratory Results - last 48 hr 03/18/25 08:50 Creatinine 1.03 Estim Creat Clear Calc 70.0 Estimated GFR > 60 Imaging Radiology Impressions: ITS Impressions Hip X-Ray 01/12/25 13:30 IMPRESSION: No evidence of fracture of the bilateral hips. Electronically signed by: Kaushal Soni MD 01/12/2025 01:54 PM EDT RP Cervical Spine CT 01/14/25 07:59 IMPRESSION: Multilevel cervical spondylosis without acute fracture or trauma-related listhesis. Fleischner guidelines were followed. Electronically signed by: Abe Griffin MD 01/14/2025 09:50 AM EDT RP Head CT 01/14/25 08:30 IMPRESSION: No acute intracranial abnormality. No fracture seen. Electronically signed by: Chidi Rodriguez MD 01/17/2025 01:08 PM EDT RP Hip/Pelvis X-Ray 01/14/25 09:10 IMPRESSION: No acute fracture or dislocation. Electronically signed by: Abe Griffin MD 01/14/2025 10:35 AM EDT RP Medications Medications Current Medications Acetaminophen (Acetaminophen 325 Mg Tablet) 650 mg PO Q6H PRN PRN Reason: pain scale (1-10) Benzocaine (Throat Lozenge, Medicated Lozenge) 1 lozenge MUCOUS MEM Q2H PRN PRN Reason: Sore Throat Last Admin: 03/17/25 13:19 Dose: 1 lozenge Benztropine Mesylate (Benztropine Mesylate 1 Mg Tablet) 1 mg PO BEDTIME PRN PRN Reason: Extrapyramidal Effects Diazepam (Diazepam 10 Mg/2 Ml Cartridge) 5 mg IM TID PRN PRN Reason: PO refusal. HOLD FOR SEDATION Last Admin: 12/21/24 10:22 Dose: 5 mg Diazepam (Diazepam 5 Mg Tablet) 5 mg PO TID [facility] Last Admin: 03/18/25 09:07 Dose: 5 mg Empagliflozin (Empagliflozin 10 Mg Tablet) 10 mg PO DAILY [facility] Last Admin: 03/18/25 09:06 Dose: 10 mg Magnesium Hydroxide (Milk Of Magnesia 30 Ml Oral.Susp) 30 ml PO DAILY PRN PRN Reason: Constipation Last Admin: 02/04/25 14:59 Dose: 30 ml Metformin HCl (Metformin Hcl Er 500 Mg Tab.Er.24h) 1,000 mg PO DAILY [facility] Last Admin: 03/18/25 09:07 Dose: 1,000 mg Mirtazapine (Mirtazapine 30 Mg Tablet) 30 mg PO BEDTIME [facility] Last Admin: 03/17/25 20:31 Dose: 30 mg Nicotine Polacrilex (Nicotine Polacrilex 2 Mg Gum) 4 mg BUCCAL Q2H PRN PRN Reason: Nicotine Cravings Olanzapine (Olanzapine 10 Mg Tablet) 20 mg PO BEDTIME DESIRAE Last Admin: 03/17/25 20:31 Dose: 20 mg Olanzapine (Olanzapine 10 Mg Vial) 10 mg IM BID PRN PRN Reason: PO refusal Last Admin: 12/21/24 10:22 Dose: 10 mg Olanzapine (Olanzapine Odt 10 Mg Tab.Rapdis) 10 mg TRANSLINGU BID PRN PRN Reason: agitation Last Admin: 01/14/25 12:16 Dose: 10 mg Oxcarbazepine (Oxcarbazepine 300 Mg Tablet) 300 mg PO BEDTIME [facility]IRAE Last Admin: 03/17/25 20:31 Dose: 300 mg Primidone (Primidone 50 Mg Tablet) 25 mg PO BID [facility] Last Admin: 03/18/25 09:07 Dose: 25 mg Sertraline HCl (Sertraline Hcl 100 Mg Tablet) 100 mg PO BEDTIME [facility] Last Admin: 03/17/25 20:31 Dose: 100 mg Trazodone HCl (Trazodone Hcl 50 Mg Tablet) 50 mg PO BEDTIME PRN PRN Reason: Insomnia Last Admin: 03/14/25 20:17 Dose: 50 mg Allergies Allergies Allergy/AdvReac Type Severity Reaction Status Date / Time No Known Allergies Allergy Verified 10/14/24 18:14 [No Known Allergies*] Assessment & Plan Assessment & Plan (1) Mood disorder: Status: Acute Code(s): F39 - Unspecified mood [affective] disorder (2) Autism spectrum disorder: Status: Acute Code(s): F84.0 - Autistic disorder (3) Dementia: Status: Acute Code(s): F03.90 - Unspecified dementia, unspecified severity, without behavioral disturbance, psychotic disturbance, mood disturbance, and anxiety Plan Humza was admitted for safety and stabilization. His presentation is very similar to his last admission psychiatrically about a year ago and that is why his caregivers wanted to get ahead of things before he decompensated further. Current medications were reviewed and maintained. Contacts to be made with his treaters next week. 10/17: Continue current regimen and plans 10/19: Continue current tx plan and regime. 10/21: Memantine 5 mg daily- [facility], memory sx Abilify 2 mg daily-augment to antidepressants currently being used. 10/22 continue current tx plan -pt confused 10/23 Continue trials, regime and plan. 10/24: Continue regime and plan of care. 10/25 Abilify increased up to 5 mg. 10/26 keep on same treatment 10/27/24 continues with many complaints, no clear insight into self- 10/28 continue same treatment 10/29 increase Namenda to 5 mg p.o. b.i.d. and change Depakote to Depakene. Depakote level on 13/02 as per blood work of yesterday 10/30/24 - dc abilify inc olanzapine = continue depakene as he did take 5 capsules this am- prn olanzapine given - this afternoon for behaviors on unit- 10/31/24 wrote for liquid depakote option if refuses capsules, also got prn olanzapine for throwing self on floor 11/01 keep same treatment 11/02 increase Zyprexa to 20 mg p.o. q.h.s. 11/03 keep same treatment. 11/04 discontinue Depakote and start Trileptal 300 mg p.o. b.i.d.. Her healthcare proxy will bring a copy of that we are going to invoke it 11/06 increase olanzapine to 20mg po qhs and 10mg po daily. 11/07 continue tx. 12/04 continue tx. 12/05: no changes 12/06 continue tx. 12/12: continue plan of care 12/13: continue tx 12/19 continue current tx plan 12/25: appearing sedated, more of a falls risk, poorer ability to do ADLs. decrease trileptal dosing from 600 BID to 300 BID for now. 12/26: less sedated than yesterday, continue current mgmt, including 1:1, until attending can see pt in the morning. 12/30: continues less sedated. minimally interactive. continue current mgmt. 12/31: per HCP, not at baseline, over-sedated. begin valium taper. decrease valium 5 TID to 4 TID for now. per HCP and SW, HCP has been affirmed in court. IM back-up orders in place and to be enforced by nursing staff. no aggressive or agitated behaviors. 01/02: Continue current regimen and plans Plan 1. Continue with olanzapine 10 mg p.o. q.a.m. and 20 mg p.o. q.h.s., he refused p.o. he received olanzapine IM. 2. Continue with Valium 5 mg p.o. t.i.d. if he refuses he will get Valium IM. 3. We will encourage compliance. The patient had been noncompliant with sertraline, he remains dysphoric. 4. The patient has a healthcare proxy who was affirmed by court, and they want us to medicate him even if the patient does not want to be compliant. 5. At this moment the patient is slightly over-sedated with EPS but we will keep the same dose of antipsychotics since his violence has improved. 01/03/25 Continue plan of care Reassess treatment plan which includes IM medication patient has been much less aggressive than he has in the past Unclear discharge plan at this point 01/04/2025 Patient taking Valium and olanzapine regularly has IM prescribed if refuses intermittently taking medication for diabetes hypertension 01/05/25 Cont medicationhas been stabilizing try and d/c meds that are not esential simplify regimen 01/06/25 stop namenda monitor sugar / bp encourage med acceptance cont valium olanzapine 01/08/2025 Continue olanzapine Valium metformin try and taper and simplify medication as tolerated discharge planning monitor response to change in medication 01/09/25 Try and simplify med regimen d/c planning 01/11/2025 Patient generally more cooperative not agitated generally monitor blood sugar and blood pressure intermittently refuses some doses of metformin 01/12/25 Pt seen later in day seemed stable flat some balance problems noted lowwer trileptal and primidone ck ortho vs dailypt consult for balance 01/13/2025 Patient improving less reactive has not been aggressive more cooperative with treatment and medication. Discharge planning 01/14: fell this morning, per head/c-spine CT and pelvic XR, no osseus injuries. pt appears as at recent mental status. no complaints or requests other than for wheelchair. pt will have 1:1 for ambulation for now. continue current psychopharm mgmt. 01/15: Continue current management and treatment plan. 01/16: continue current management and treatment plan. 01/17 keep same treatment. 01/18 keep same treatment 01/19 keep same treatment 01/20 keep same treatment 01/21 keep same treatment 01/22: calm, cooperative, flat. no questions or complaints. stable presentation. continue current mgmt. 01/23: no change, continue current mgmt. 01/24: stable. continue current mgmt. reps from [facility] coming to [facility] pt for placement today. 01/25/2025 Patient in behavioral control vital signs stable generally accepting treatment continue discharge planning 01/26/2025 Patient generally cooperative seen in the milieu no aggression suicidality or her problematic behavior. Discharge planning strongly urged transition 01/27/2025 Patient continues to be generally stabilizing not combative agitated or threatening has remained generally calm seems safe for discharge planning much improved over time 01/28/2025 Patient seen psychiatric follow-up patient has significantly improved over the months he is calm cooperative seen watching television somewhat social at times not aggressive or combative 01/29 Continue current regime/plan. Improved. 01/31: stably improved. awaiting placement. continue current mgmt. 4/8: stable. continue current mgmt. awaiting placement. 02/02: no change in presentation or plan. 02/03: stable. continue current mgmt. 02/04/2025 Patient seen psychiatric follow-up no current behavioral difficulties no current ability to place patient in a less restricted setting 02/06: no change in presentation. continue current mgmt. 02/07/25 cont d/c planning pt has been tentatively accepted no less restrictive setting currently available 02/08/2025 Continue discharge planning patient tentatively accepted no funding source available at this time no less restrictive setting available 02/14 Patient tells marketing copywriter he is hanging in there he says it can be hard sometimes to do so but it is overall going okay. Patient took all medications today; nurse however reports that recently he seemed a little suspicious, on the verge of picking over medications. -vitals WNL -no new labs 02/15/2025 Patient states he is doing okay understands he is waiting for some form of placement. Accepting treatment vital signs unremarkable continue plan of care discharge plan 02/16/2025 No major changes patient has been waiting for placement no less restrictive setting available at this time continues to be cooperative with care no significant behavioral difficulties 02/18/2025 Vital signs stable no need to change current regimen continue discharge planning. No less restrictive setting presently available for discharge 02/19 continue treatment plan 02/22 continue tx. 02/24: no change in presentation. continue current mgmt. 02/26: no change in presentation. continue current mgmt. 02/27: drawn and withdrawn. c/o diplopia both with and without corrective lenses. continue current mgmt. 02/28/2025 Patient calm some anxiety noted future oriented continue plan of care 03/03: stable. continue current mgmt. 03/05: Continue current regimen and plans 03/06: Continue current regimen and plans 03/07 continue tx. 03/08: anxiety in good control. in milieu watching TV, appropriately responds to compliment on his shirt. awaiting placement. 03/10: no change in presentation. resting in bed, mild anxiety, blurry vision. 03/11: no change in presentation. resting in bed, blurry vision. 03/12 stable; no change in presentation; continue treatment plan 03/14 continue tx. swallowing eval ordered. lisinopril d/c by hospitalist due to low BP and chronic cough. 03/15 continue tx. 03/16: pt refusing chopped diet. per personal communication with RN Daksha, speech and swallow believed his difficulty on eval might have been behavioral and they were being very conservative in ordering the chopped diet but that if it were a problem they were not opposed to reverting to prior diet and continuing to observe. decision made to return to regular diet today due to pt's opposition to chopped diet. pt otherwise stable, reports his anxiety is under control and he is eating, sleeping, showering fine. asking about decision on placement. 03/17 continue tx. 03/18: no change in presentation. continue current mgmt. Reason for continued inpatient stay Substantial Risk for: inability to function and rapid decompensation Time Spent With Patient Time: Total time managing care of this patient today ____ minutes.
[2025-03-18 20:00] VITALS: BP 98/54; PULSE 76; RESP 16; TEMP 36.6; O2SAT 97
[2025-03-18] MEDS: OXcarbazepine 300 MG TABLET PO (21:34)
[2025-03-18] MEDS: Sertraline HCL 100 MG TABLET PO (21:35)
[2025-03-18] MEDS: OLANZapine 10 MG TABLET 20 MG PO (21:35)
[2025-03-18] MEDS: Throat Lozenge, Medicated LOZENGE 1 LOZENGE MUCOUS MEM (21:36)
[2025-03-18] MEDS: Mirtazapine 30 MG TABLET PO (21:47)
[2025-03-19 08:00] VITALS: BP 126/85; PULSE 83; RESP 18; TEMP 36.8; O2SAT 99
[2025-03-19] MEDS: metFORMIN HCl ER 500 MG TAB.ER.24H 1000 MG PO (08:47)
[2025-03-19] MEDS: diazePAM 5 MG TABLET PO ×3 (08:47→20:39)
[2025-03-19] MEDS: Empagliflozin 10 MG TABLET PO (08:47)
[2025-03-19] MEDS: Primidone 50 MG TABLET 25 MG PO ×2 (08:47→20:39)
--- NOTE | 2025-03-19 10:04 | P.PNPSI_ITS ---
Subjective Subjective Date of Service: 03/19/25 Reason For Visit: Anxiety, mood disorder, ASD Interim History: Reports AH with derogatory content. Feels medications are helpful. Calm and no behavioral outbursts. Medication compliant. Sleep and appetite are good. Review of Systems Review of Systems Denies any shortness of breath, chest pain, dizziness, lightheadedness, abdominal pain or discomfort, nausea vomiting or diarrhea. Reports cough. Yes all other systems are reviewed and are negative and Unobtainable due to mental status Mental Status Exam Mental Status Exam Patient Appearance: Appropriate Patient Orientation: Person and Situation Level of Consciousness: Awake and Appropriate Patient Behavior: Guarded and Passive Mood Description: Withdrawn ( ok ) Affect Description: Withdrawn Patient Cognition Impaired: Yes Ability to Follow Directions: Fair Speech Pattern: Clear Memory Description: Remote Impaired Diagnostics Vital Signs (24Hr): Vital Signs - 24 hr 03/18/25 20:00 03/19/25 08:00 Temperature 97.9 F 98.2 F Pulse Rate 76 83 Respiratory Rate 16 18 Blood Pressure 98/54 L 126/85 Pulse Oximetry 97 99 Oxygen Delivery Method Room Air Room Air BMI result Body Mass Index 26.6 Labs 10/28/24 09:10 03/18/25 08:50 Labs: Laboratory Results - last 48 hr 03/18/25 08:50 Creatinine 1.03 Estim Creat Clear Calc 70.0 Estimated GFR > 60 Imaging Radiology Impressions: ITS Impressions Hip X-Ray 01/12/25 13:30 IMPRESSION: No evidence of fracture of the bilateral hips. Electronically signed by: Kaushal Soni MD 01/12/2025 01:54 PM EDT RP Cervical Spine CT 01/14/25 07:59 IMPRESSION: Multilevel cervical spondylosis without acute fracture or trauma-related listhesis. Fleischner guidelines were followed. Electronically signed by: Abe Griffin MD 01/14/2025 09:50 AM EDT RP Head CT 01/14/25 08:30 IMPRESSION: No acute intracranial abnormality. No fracture seen. Electronically signed by: Chidi Rodriguez MD 01/17/2025 01:08 PM EDT RP Hip/Pelvis X-Ray 01/14/25 09:10 IMPRESSION: No acute fracture or dislocation. Electronically signed by: Abe Griffin MD 01/14/2025 10:35 AM EDT Medications Medications Current Medications Acetaminophen (Acetaminophen 325 Mg Tablet) 650 mg PO Q6H PRN PRN Reason: pain scale (1-10) Benzocaine (Throat Lozenge, Medicated Lozenge) 1 lozenge MUCOUS MEM Q2H PRN PRN Reason: Sore Throat Last Admin: 03/18/25 21:36 Dose: 1 lozenge Benztropine Mesylate (Benztropine Mesylate 1 Mg Tablet) 1 mg PO BEDTIME PRN PRN Reason: Extrapyramidal Effects Diazepam (Diazepam 10 Mg/2 Ml Cartridge) 5 mg IM TID PRN PRN Reason: PO refusal. HOLD FOR SEDATION Last Admin: 12/21/24 10:22 Dose: 5 mg Diazepam (Diazepam 5 Mg Tablet) 5 mg PO TID DESIRAE Last Admin: 03/19/25 08:47 Dose: 5 mg Empagliflozin (Empagliflozin 10 Mg Tablet) 10 mg PO DAILY [facility] Last Admin: 03/19/25 08:47 Dose: 10 mg Magnesium Hydroxide (Milk Of Magnesia 30 Ml Oral.Susp) 30 ml PO DAILY PRN PRN Reason: Constipation Last Admin: 02/04/25 14:59 Dose: 30 ml Metformin HCl (Metformin Hcl Er 500 Mg Tab.Er.24h) 1,000 mg PO DAILY DESIRAE Last Admin: 03/19/25 08:47 Dose: 1,000 mg Mirtazapine (Mirtazapine 30 Mg Tablet) 30 mg PO BEDTIME DESIRAE Last Admin: 03/18/25 21:47 Dose: 30 mg Nicotine Polacrilex (Nicotine Polacrilex 2 Mg Gum) 4 mg BUCCAL Q2H PRN PRN Reason: Nicotine Cravings Olanzapine (Olanzapine 10 Mg Tablet) 20 mg PO BEDTIME DESIRAE Last Admin: 03/18/25 21:35 Dose: 20 mg Olanzapine (Olanzapine 10 Mg Vial) 10 mg IM BID PRN PRN Reason: PO refusal Last Admin: 12/21/24 10:22 Dose: 10 mg Olanzapine (Olanzapine Odt 10 Mg Tab.Rapdis) 10 mg TRANSLINGU BID PRN PRN Reason: agitation Last Admin: 01/14/25 12:16 Dose: 10 mg Oxcarbazepine (Oxcarbazepine 300 Mg Tablet) 300 mg PO BEDTIME DESIRAE Last Admin: 03/18/25 21:34 Dose: 300 mg Primidone (Primidone 50 Mg Tablet) 25 mg PO BID DESIRAE Last Admin: 03/19/25 08:47 Dose: 25 mg Sertraline HCl (Sertraline Hcl 100 Mg Tablet) 100 mg PO BEDTIME DESIRAE Last Admin: 03/18/25 21:35 Dose: 100 mg Trazodone HCl (Trazodone Hcl 50 Mg Tablet) 50 mg PO BEDTIME PRN PRN Reason: Insomnia Last Admin: 03/14/25 20:17 Dose: 50 mg Allergies Allergies Allergy/AdvReac Type Severity Reaction Status Date / Time No Known Allergies Allergy Verified 10/14/24 18:14 [No Known Allergies*] Assessment & Plan Assessment & Plan (1) Mood disorder: Status: Acute Code(s): F39 - Unspecified mood [affective] disorder (2) Autism spectrum disorder: Status: Acute Code(s): F84.0 - Autistic disorder (3) Dementia: Status: Acute Code(s): F03.90 - Unspecified dementia, unspecified severity, without behavioral disturbance, psychotic disturbance, mood disturbance, and anxiety Plan Humza was admitted for safety and stabilization. His presentation is very similar to his last admission psychiatrically about a year ago and that is why his caregivers wanted to get ahead of things before he decompensated further. Current medications were reviewed and maintained. Contacts to be made with his treaters next week. 10/17: Continue current regimen and plans 10/19: Continue current tx plan and regime. 10/21: Memantine 5 mg daily- [facility], memory sx Abilify 2 mg daily-augment to antidepressants currently being used. 10/22 continue current tx plan -pt confused 10/23 Continue trials, regime and plan. 10/24: Continue regime and plan of care. 10/25 Abilify increased up to 5 mg. 10/26 keep on same treatment 10/27/24 continues with many complaints, no clear insight into self- 10/28 continue same treatment 10/29 increase Namenda to 5 mg p.o. b.i.d. and change Depakote to Depakene. Depakote level on 13/02 as per blood work of yesterday 10/30/24 - dc abilify inc olanzapine = continue depakene as he did take 5 capsules this am- prn olanzapine given - this afternoon for behaviors on unit- 10/31/24 wrote for liquid depakote option if refuses capsules, also got prn olanzapine for throwing self on floor 11/01 keep same treatment 11/02 increase Zyprexa to 20 mg p.o. q.h.s. 11/03 keep same treatment. 11/04 discontinue Depakote and start Trileptal 300 mg p.o. b.i.d.. Her healthcare proxy will bring a copy of that we are going to invoke it 11/06 increase olanzapine to 20mg po qhs and 10mg po daily. 11/07 continue tx. 12/04 continue tx. 12/05: no changes 12/06 continue tx. 12/12: continue plan of care 12/13: continue tx 12/19 continue current tx plan 12/25: appearing sedated, more of a falls risk, poorer ability to do ADLs. decrease trileptal dosing from 600 BID to 300 BID for now. 12/26: less sedated than yesterday, continue current mgmt, including 1:1, until attending can see pt in the morning. 12/30: continues less sedated. minimally interactive. continue current mgmt. 12/31: per HCP, not at baseline, over-sedated. begin valium taper. decrease valium 5 TID to 4 TID for now. per HCP and SW, HCP has been affirmed in court. IM back-up orders in place and to be enforced by nursing staff. no aggressive or agitated behaviors. 01/02: Continue current regimen and plans Plan 1. Continue with olanzapine 10 mg p.o. q.a.m. and 20 mg p.o. q.h.s., he refused p.o. he received olanzapine IM. 2. Continue with Valium 5 mg p.o. t.i.d. if he refuses he will get Valium IM. 3. We will encourage compliance. The patient had been noncompliant with sertraline, he remains dysphoric. 4. The patient has a healthcare proxy who was affirmed by court, and they want us to medicate him even if the patient does not want to be compliant. 5. At this moment the patient is slightly over-sedated with EPS but we will keep the same dose of antipsychotics since his violence has improved. 01/03/25 Continue plan of care Reassess treatment plan which includes IM medication patient has been much less aggressive than he has in the past Unclear discharge plan at this point 01/04/2025 Patient taking Valium and olanzapine regularly has IM prescribed if refuses intermittently taking medication for diabetes hypertension 01/05/25 Cont medicationhas been stabilizing try and d/c meds that are not esential simplify regimen 01/06/25 stop namenda monitor sugar / bp encourage med acceptance cont valium olanzapine 01/08/2025 Continue olanzapine Valium metformin try and taper and simplify medication as tolerated discharge planning monitor response to change in medication 01/09/25 Try and simplify med regimen d/c planning 01/11/2025 Patient generally more cooperative not agitated generally monitor blood sugar and blood pressure intermittently refuses some doses of metformin 01/12/25 Pt seen later in day seemed stable flat some balance problems noted lowwer trileptal and primidone ck ortho vs dailypt consult for balance 01/13/2025 Patient improving less reactive has not been aggressive more cooperative with treatment and medication. Discharge planning 01/14: fell this morning, per head/c-spine CT and pelvic XR, no osseus injuries. pt appears as at recent mental status. no complaints or requests other than for wheelchair. pt will have 1:1 for ambulation for now. continue current psychopharm mgmt. 01/15: Continue current management and treatment plan. 01/16: continue current management and treatment plan. 01/17 keep same treatment. 01/18 keep same treatment 01/19 keep same treatment 01/20 keep same treatment 01/21 keep same treatment 01/22: calm, cooperative, flat. no questions or complaints. stable presentation. continue current mgmt. 01/23: no change, continue current mgmt. 01/24: stable. continue current mgmt. reps from [facility] coming to [facility] pt for placement today. 01/25/2025 Patient in behavioral control vital signs stable generally accepting treatment continue discharge planning 01/26/2025 Patient generally cooperative seen in the milieu no aggression suicidality or her problematic behavior. Discharge planning strongly urged transition 01/27/2025 Patient continues to be generally stabilizing not combative agitated or threatening has remained generally calm seems safe for discharge planning much improved over time 01/28/2025 Patient seen psychiatric follow-up patient has significantly improved over the months he is calm cooperative seen watching television somewhat social at times not aggressive or combative 01/29 Continue current regime/plan. Improved. 01/31: stably improved. awaiting placement. continue current mgmt. 02/01: stable. continue current mgmt. awaiting placement. 02/02: no change in presentation or plan. 02/03: stable. continue current mgmt. 02/04/2025 Patient seen psychiatric follow-up no current behavioral difficulties no current ability to place patient in a less restricted setting 02/06: no change in presentation. continue current mgmt. 02/07/25 cont d/c planning pt has been tentatively accepted no less restrictive setting currently available 02/08/2025 Continue discharge planning patient tentatively accepted no funding source available at this time no less restrictive setting available 02/14 Patient tells blurb writer he is hanging in there he says it can be hard sometimes to do so but it is overall going okay. Patient took all medications today; nurse however reports that recently he seemed a little suspicious, on the verge of picking over medications. -vitals WNL -no new labs 02/15/2025 Patient states he is doing okay understands he is waiting for some form of placement. Accepting treatment vital signs unremarkable continue plan of care discharge plan 02/16/2025 No major changes patient has been waiting for placement no less restrictive setting available at this time continues to be cooperative with care no significant behavioral difficulties 02/18/2025 Vital signs stable no need to change current regimen continue discharge planning. No less restrictive setting presently available for discharge 02/19 continue treatment plan 02/22 continue tx. 02/24: no change in presentation. continue current mgmt. 02/26: no change in presentation. continue current mgmt. 02/27: drawn and withdrawn. c/o diplopia both with and without corrective lenses. continue current mgmt. 02/28/2025 Patient calm some anxiety noted future oriented continue plan of care 03/03: stable. continue current mgmt. 03/05: Continue current regimen and plans 03/06: Continue current regimen and plans 03/07 continue tx. 03/08: anxiety in good control. in milieu watching TV, appropriately responds to compliment on his shirt. awaiting placement. 03/10: no change in presentation. resting in bed, mild anxiety, blurry vision. 03/11: no change in presentation. resting in bed, blurry vision. 03/12 stable; no change in presentation; continue treatment plan 03/14 continue tx. swallowing eval ordered. lisinopril d/c by hospitalist due to low BP and chronic cough. 03/15 continue tx. 03/16: pt refusing chopped diet. per personal communication with TAMMY Crooks, speech and swallow believed his difficulty on eval might have been behavioral and they were being very conservative in ordering the chopped diet but that if it were a problem they were not opposed to reverting to prior diet and continuing to observe. decision made to return to regular diet today due to pt's opposition to chopped diet. pt otherwise stable, reports his anxiety is under control and he is eating, sleeping, showering fine. asking about decision on placement. 03/17 continue tx. 03/18: no change in presentation. continue current mgmt. 03/19: continue current management and treatment plan. Reason for continued inpatient stay Substantial Risk for: inability to function and rapid decompensation Time Spent With Patient Time: Total time managing care of this patient today ____ minutes.
[2025-03-19 20:00] VITALS: BP 98/56; PULSE 75; RESP 18; TEMP 36.7; O2SAT 97
[2025-03-19] MEDS: Mirtazapine 30 MG TABLET PO (20:39)
[2025-03-19] MEDS: OLANZapine 10 MG TABLET 20 MG PO (20:39)
[2025-03-19] MEDS: OXcarbazepine 300 MG TABLET PO (20:39)
[2025-03-19] MEDS: Sertraline HCL 100 MG TABLET PO (20:39)
[2025-03-20 08:00] VITALS: BP 111/72; PULSE 81; RESP 18; TEMP 37; O2SAT 97
[2025-03-20] MEDS: Primidone 50 MG TABLET 25 MG PO ×2 (08:26→22:06)
[2025-03-20] MEDS: metFORMIN HCl ER 500 MG TAB.ER.24H 1000 MG PO (08:26)
[2025-03-20] MEDS: Empagliflozin 10 MG TABLET PO (08:27)
[2025-03-20] MEDS: diazePAM 5 MG TABLET PO ×3 (08:27→22:06)
--- NOTE | 2025-03-20 14:45 | P.PNPSI_ITS ---
Subjective Subjective Date of Service: 03/20/25 Reason For Visit: Anxiety, mood disorder, ASD Interim History: Patient has difficulty engaging verbally. He is withdrawn. Isolative. Feels medications are helpful. Calm and no behavioral outbursts. Medication compliant. Sleep and appetite are good. Review of Systems Review of Systems Denies any shortness of breath, chest pain, dizziness, lightheadedness, abdominal pain or discomfort, nausea vomiting or diarrhea. Reports cough. Yes all other systems are reviewed and are negative and Unobtainable due to mental status Mental Status Exam Mental Status Exam Patient Appearance: Appropriate Patient Orientation: Person and Situation Level of Consciousness: Awake and Appropriate Patient Behavior: Guarded and Passive Mood Description: Withdrawn ( ok ) Affect Description: Withdrawn Patient Cognition Impaired: Yes Ability to Follow Directions: Fair Speech Pattern: Clear Memory Description: Remote Impaired Diagnostics Vital Signs (24Hr): Vital Signs - 24 hr 03/19/25 20:00 03/20/25 08:00 Temperature 98.1 F 98.6 F Pulse Rate 75 81 Respiratory Rate 18 18 Blood Pressure 98/56 L 111/72 Pulse Oximetry 97 97 Oxygen Delivery Method Room Air Room Air BMI result Body Mass Index 26.6 Labs 10/28/24 09:10 03/18/25 08:50 Imaging Radiology Impressions: ITS Impressions Hip X-Ray 01/12/25 13:30 IMPRESSION: No evidence of fracture of the bilateral hips. Electronically signed by: Kaushal Soni MD 01/12/2025 01:54 PM EDT RP Cervical Spine CT 01/14/25 07:59 IMPRESSION: Multilevel cervical spondylosis without acute fracture or trauma-related listhesis. Fleischner guidelines were followed. Electronically signed by: Abe Griffin MD 01/14/2025 09:50 AM EDT RP Head CT 01/14/25 08:30 IMPRESSION: No acute intracranial abnormality. No fracture seen. Electronically signed by: Chidi Rodriguez MD 01/17/2025 01:08 PM EDT RP Hip/Pelvis X-Ray 01/14/25 09:10 IMPRESSION: No acute fracture or dislocation. Electronically signed by: Abe Griffin MD 01/14/2025 10:35 AM EDT RP Medications Medications Current Medications Acetaminophen (Acetaminophen 325 Mg Tablet) 650 mg PO Q6H PRN PRN Reason: pain scale (1-10) Benzocaine (Throat Lozenge, Medicated Lozenge) 1 lozenge MUCOUS MEM Q2H PRN PRN Reason: Sore Throat Last Admin: 03/18/25 21:36 Dose: 1 lozenge Benztropine Mesylate (Benztropine Mesylate 1 Mg Tablet) 1 mg PO BEDTIME PRN PRN Reason: Extrapyramidal Effects Diazepam (Diazepam 10 Mg/2 Ml Cartridge) 5 mg IM TID PRN PRN Reason: PO refusal. HOLD FOR SEDATION Last Admin: 12/21/24 10:22 Dose: 5 mg Diazepam (Diazepam 5 Mg Tablet) 5 mg PO TID DESIRAE Last Admin: 03/20/25 08:27 Dose: 5 mg Empagliflozin (Empagliflozin 10 Mg Tablet) 10 mg PO DAILY DESIRAE Last Admin: 03/20/25 08:27 Dose: 10 mg Magnesium Hydroxide (Milk Of Magnesia 30 Ml Oral.Susp) 30 ml PO DAILY PRN PRN Reason: Constipation Last Admin: 02/04/25 14:59 Dose: 30 ml Metformin HCl (Metformin Hcl Er 500 Mg Tab.Er.24h) 1,000 mg PO DAILY DESIRAE Last Admin: 03/20/25 08:26 Dose: 1,000 mg Mirtazapine (Mirtazapine 30 Mg Tablet) 30 mg PO BEDTIME DESIRAE Last Admin: 03/19/25 20:39 Dose: 30 mg Nicotine Polacrilex (Nicotine Polacrilex 2 Mg Gum) 4 mg BUCCAL Q2H PRN PRN Reason: Nicotine Cravings Olanzapine (Olanzapine 10 Mg Tablet) 20 mg PO BEDTIME DESIRAE Last Admin: 03/19/25 20:39 Dose: 20 mg Olanzapine (Olanzapine 10 Mg Vial) 10 mg IM BID PRN PRN Reason: PO refusal Last Admin: 12/21/24 10:22 Dose: 10 mg Olanzapine (Olanzapine Odt 10 Mg Tab.Rapdis) 10 mg TRANSLINGU BID PRN PRN Reason: agitation Last Admin: 01/14/25 12:16 Dose: 10 mg Oxcarbazepine (Oxcarbazepine 300 Mg Tablet) 300 mg PO BEDTIME DESIRAE Last Admin: 03/19/25 20:39 Dose: 300 mg Primidone (Primidone 50 Mg Tablet) 25 mg PO BID DESIRAE Last Admin: 03/20/25 08:26 Dose: 25 mg Sertraline HCl (Sertraline Hcl 100 Mg Tablet) 100 mg PO BEDTIME DESIRAE Last Admin: 03/19/25 20:39 Dose: 100 mg Trazodone HCl (Trazodone Hcl 50 Mg Tablet) 50 mg PO BEDTIME PRN PRN Reason: Insomnia Last Admin: 03/14/25 20:17 Dose: 50 mg Allergies Allergies Allergy/AdvReac Type Severity Reaction Status Date / Time No Known Allergies Allergy Verified 10/14/24 18:14 [No Known Allergies*] Assessment & Plan Assessment & Plan (1) Mood disorder: Status: Acute Code(s): F39 - Unspecified mood [affective] disorder (2) Autism spectrum disorder: Status: Acute Code(s): F84.0 - Autistic disorder (3) Dementia: Status: Acute Code(s): F03.90 - Unspecified dementia, unspecified severity, without behavioral disturbance, psychotic disturbance, mood disturbance, and anxiety Plan Humza was admitted for safety and stabilization. His presentation is very similar to his last admission psychiatrically about a year ago and that is why his caregivers wanted to get ahead of things before he decompensated further. Current medications were reviewed and maintained. Contacts to be made with his treaters next week. 10/17: Continue current regimen and plans 10/19: Continue current tx plan and regime. 10/21: Memantine 5 mg daily- [facility], memory sx Abilify 2 mg daily-augment to antidepressants currently being used. 10/22 continue current tx plan -pt confused 10/23 Continue trials, regime and plan. 10/24: Continue regime and plan of care. 10/25 Abilify increased up to 5 mg. 10/26 keep on same treatment 10/27/24 continues with many complaints, no clear insight into self- 10/28 continue same treatment 10/29 increase Namenda to 5 mg p.o. b.i.d. and change Depakote to Depakene. Depakote level on 13/02 as per blood work of yesterday 10/30/24 - dc abilify inc olanzapine = continue depakene as he did take 5 capsules this am- prn olanzapine given - this afternoon for behaviors on unit- 10/31/24 wrote for liquid depakote option if refuses capsules, also got prn olanzapine for throwing self on floor 11/01 keep same treatment 11/02 increase Zyprexa to 20 mg p.o. q.h.s. 11/03 keep same treatment. 11/04 discontinue Depakote and start Trileptal 300 mg p.o. b.i.d.. Her healthcare proxy will bring a copy of that we are going to invoke it 11/06 increase olanzapine to 20mg po qhs and 10mg po daily. 11/07 continue tx. 12/04 continue tx. 12/05: no changes 12/06 continue tx. 12/12: continue plan of care 12/13: continue tx 12/19 continue current tx plan 12/25: appearing sedated, more of a falls risk, poorer ability to do ADLs. decrease trileptal dosing from 600 BID to 300 BID for now. 12/26: less sedated than yesterday, continue current mgmt, including 1:1, until attending can see pt in the morning. 12/30: continues less sedated. minimally interactive. continue current mgmt. 12/31: per HCP, not at baseline, over-sedated. begin valium taper. decrease valium 5 TID to 4 TID for now. per HCP and SW, HCP has been affirmed in court. IM back-up orders in place and to be enforced by nursing staff. no aggressive or agitated behaviors. 01/02: Continue current regimen and plans Plan 1. Continue with olanzapine 10 mg p.o. q.a.m. and 20 mg p.o. q.h.s., he refused p.o. he received olanzapine IM. 2. Continue with Valium 5 mg p.o. t.i.d. if he refuses he will get Valium IM. 3. We will encourage compliance. The patient had been noncompliant with sertraline, he remains dysphoric. 4. The patient has a healthcare proxy who was affirmed by court, and they want us to medicate him even if the patient does not want to be compliant. 5. At this moment the patient is slightly over-sedated with EPS but we will keep the same dose of antipsychotics since his violence has improved. 01/03/25 Continue plan of care Reassess treatment plan which includes IM medication patient has been much less aggressive than he has in the past Unclear discharge plan at this point 01/04/2025 Patient taking Valium and olanzapine regularly has IM prescribed if refuses intermittently taking medication for diabetes hypertension 01/05/25 Cont medicationhas been stabilizing try and d/c meds that are not esential simplify regimen 01/06/25 stop namenda monitor sugar / bp encourage med acceptance cont valium olanzapine 01/08/2025 Continue olanzapine Valium metformin try and taper and simplify medication as tolerated discharge planning monitor response to change in medication 01/09/25 Try and simplify med regimen d/c planning 01/11/2025 Patient generally more cooperative not agitated generally monitor blood sugar and blood pressure intermittently refuses some doses of metformin 01/12/25 Pt seen later in day seemed stable flat some balance problems noted lowwer trileptal and primidone ck ortho vs dailypt consult for balance 01/13/2025 Patient improving less reactive has not been aggressive more cooperative with treatment and medication. Discharge planning 01/14: fell this morning, per head/c-spine CT and pelvic XR, no osseus injuries. pt appears as at recent mental status. no complaints or requests other than for wheelchair. pt will have 1:1 for ambulation for now. continue current psychopharm mgmt. 01/15: Continue current management and treatment plan. 01/16: continue current management and treatment plan. 01/17 keep same treatment. 01/18 keep same treatment 01/19 keep same treatment 01/20 keep same treatment 01/21 keep same treatment 01/22: calm, cooperative, flat. no questions or complaints. stable presentation. continue current mgmt. 01/23: no change, continue current mgmt. 01/24: stable. continue current mgmt. reps from [facility] coming to [facility] pt for placement today. 01/25/2025 Patient in behavioral control vital signs stable generally accepting treatment continue discharge planning 01/26/2025 Patient generally cooperative seen in the milieu no aggression suicidality or her problematic behavior. Discharge planning strongly urged transition 01/27/2025 Patient continues to be generally stabilizing not combative agitated or threatening has remained generally calm seems safe for discharge planning much improved over time 01/28/2025 Patient seen psychiatric follow-up patient has significantly improved over the months he is calm cooperative seen watching television somewhat social at times not aggressive or combative 01/29 Continue current regime/plan. Improved. 01/31: stably improved. awaiting placement. continue current mgmt. 02/01: stable. continue current mgmt. awaiting placement. 02/02: no change in presentation or plan. 02/03: stable. continue current mgmt. 02/04/2025 Patient seen psychiatric follow-up no current behavioral difficulties no current ability to place patient in a less restricted setting 02/06: no change in presentation. continue current mgmt. 02/07/25 cont d/c planning pt has been tentatively accepted no less restrictive setting currently available 02/08/2025 Continue discharge planning patient tentatively accepted no funding source available at this time no less restrictive setting available 02/14 Patient tells senior copywriter he is hanging in there he says it can be hard sometimes to do so but it is overall going okay. Patient took all medications today; nurse however reports that recently he seemed a little suspicious, on the verge of picking over medications. -vitals WNL -no new labs 02/15/2025 Patient states he is doing okay understands he is waiting for some form of placement. Accepting treatment vital signs unremarkable continue plan of care discharge plan 02/16/2025 No major changes patient has been waiting for placement no less restrictive setting available at this time continues to be cooperative with care no significant behavioral difficulties 02/18/2025 Vital signs stable no need to change current regimen continue discharge planning. No less restrictive setting presently available for discharge 02/19 continue treatment plan 02/22 continue tx. 02/24: no change in presentation. continue current mgmt. 02/26: no change in presentation. continue current mgmt. 02/27: drawn and withdrawn. c/o diplopia both with and without corrective lenses. continue current mgmt. 02/28/2025 Patient calm some anxiety noted future oriented continue plan of care 03/03: stable. continue current mgmt. 03/05: Continue current regimen and plans 03/06: Continue current regimen and plans 03/07 continue tx. 03/08: anxiety in good control. in milieu watching TV, appropriately responds to compliment on his shirt. awaiting placement. 03/10: no change in presentation. resting in bed, mild anxiety, blurry vision. 03/11: no change in presentation. resting in bed, blurry vision. 03/12 stable; no change in presentation; continue treatment plan 03/14 continue tx. swallowing eval ordered. lisinopril d/c by hospitalist due to low BP and chronic cough. 03/15 continue tx. 03/16: pt refusing chopped diet. per personal communication with TAMMY Crooks, speech and swallow believed his difficulty on eval might have been behavioral and they were being very conservative in ordering the chopped diet but that if it were a problem they were not opposed to reverting to prior diet and continuing to observe. decision made to return to regular diet today due to pt's opposition to chopped diet. pt otherwise stable, reports his anxiety is under control and he is eating, sleeping, showering fine. asking about decision on placement. 03/17 continue tx. 03/18: no change in presentation. continue current mgmt. 03/19: continue current management and treatment plan. 03/20: continue current management and treatment plan. Reason for continued inpatient stay Substantial Risk for: inability to function and rapid decompensation Time Spent With Patient Time: Total time managing care of this patient today ____ minutes.
[2025-03-20 20:00] VITALS: BP 112/56; PULSE 73; RESP 18; TEMP 36.6; O2SAT 98
[2025-03-20] MEDS: OLANZapine 10 MG TABLET 20 MG PO (22:05)
[2025-03-20] MEDS: OXcarbazepine 300 MG TABLET PO (22:06)
[2025-03-20] MEDS: Mirtazapine 30 MG TABLET PO (22:07)
[2025-03-20] MEDS: Sertraline HCL 100 MG TABLET PO (22:07)
[2025-03-21 08:40] VITALS: BP 107/57; PULSE 77; RESP 16; TEMP 36.9; O2SAT 96
[2025-03-21] MEDS: Primidone 50 MG TABLET 25 MG PO ×2 (08:41→20:19)
[2025-03-21] MEDS: diazePAM 5 MG TABLET PO ×3 (08:41→20:19)
[2025-03-21] MEDS: Empagliflozin 10 MG TABLET PO (08:41)
[2025-03-21] MEDS: metFORMIN HCl ER 500 MG TAB.ER.24H 1000 MG PO (08:41)
--- NOTE | 2025-03-21 09:37 | HO.PSYCHPN ---
Subjective Subjective Date of Service: 03/21/25 Reason For Visit: Anxiety, mood disorder, ASD Interim History: Patient is overall unchanged. Limited verbal engagement. Remains in good behavioral control. Mood and affect are flat. Feels medications are helpful. Medication compliant. Sleep and appetite are good. No SI. Review of Systems Review of Systems Denies any shortness of breath, chest pain, dizziness, lightheadedness, abdominal pain or discomfort, nausea vomiting or diarrhea. Reports cough. Yes all other systems are reviewed and are negative and Unobtainable due to mental status Mental Status Exam Mental Status Exam Patient Appearance: Appropriate Patient Orientation: Person and Situation Level of Consciousness: Awake and Appropriate Patient Behavior: Guarded and Passive Mood Description: Withdrawn ( ok ) Affect Description: Withdrawn Patient Cognition Impaired: Yes Ability to Follow Directions: Fair Speech Pattern: Clear Memory Description: Remote Impaired Diagnostics Vital Signs (24Hr): Vital Signs - 24 hr 03/20/25 20:00 03/21/25 08:40 Temperature 97.9 F 98.4 F Pulse Rate 73 77 Respiratory Rate 18 16 Blood Pressure 112/56 L 107/57 L Pulse Oximetry 98 96 Oxygen Delivery Method Room Air Room Air BMI result Body Mass Index 26.6 Labs 10/28/24 09:10 03/18/25 08:50 Imaging Radiology Impressions: ITS Impressions Hip X-Ray 01/12/25 13:30 IMPRESSION: No evidence of fracture of the bilateral hips. Electronically signed by: Kaushal Soni MD 01/12/2025 01:54 PM EDT RP Cervical Spine CT 01/14/25 07:59 IMPRESSION: Multilevel cervical spondylosis without acute fracture or trauma-related listhesis. Fleischner guidelines were followed. Electronically signed by: Abe Griffin MD 01/14/2025 09:50 AM EDT RP Head CT 01/14/25 08:30 IMPRESSION: No acute intracranial abnormality. No fracture seen. Electronically signed by: Chidi Rodriguez MD 01/17/2025 01:08 PM EDT RP Hip/Pelvis X-Ray 01/14/25 09:10 IMPRESSION: No acute fracture or dislocation. Electronically signed by: Abe Griffin MD 01/14/2025 10:35 AM EDT RP Medications Medications Current Medications Acetaminophen (Acetaminophen 325 Mg Tablet) 650 mg PO Q6H PRN PRN Reason: pain scale (1-10) Benzocaine (Throat Lozenge, Medicated Lozenge) 1 lozenge MUCOUS MEM Q2H PRN PRN Reason: Sore Throat Last Admin: 03/18/25 21:36 Dose: 1 lozenge Benztropine Mesylate (Benztropine Mesylate 1 Mg Tablet) 1 mg PO BEDTIME PRN PRN Reason: Extrapyramidal Effects Diazepam (Diazepam 10 Mg/2 Ml Cartridge) 5 mg IM TID PRN PRN Reason: PO refusal. HOLD FOR SEDATION Last Admin: 12/21/24 10:22 Dose: 5 mg Diazepam (Diazepam 5 Mg Tablet) 5 mg PO TID DESIRAE Last Admin: 03/21/25 08:41 Dose: 5 mg Empagliflozin (Empagliflozin 10 Mg Tablet) 10 mg PO DAILY [facility] Last Admin: 03/21/25 08:41 Dose: 10 mg Magnesium Hydroxide (Milk Of Magnesia 30 Ml Oral.Susp) 30 ml PO DAILY PRN PRN Reason: Constipation Last Admin: 02/04/25 14:59 Dose: 30 ml Metformin HCl (Metformin Hcl Er 500 Mg Tab.Er.24h) 1,000 mg PO DAILY DESIRAE Last Admin: 03/21/25 08:41 Dose: 1,000 mg Mirtazapine (Mirtazapine 30 Mg Tablet) 30 mg PO BEDTIME DESIRAE Last Admin: 03/20/25 22:07 Dose: 30 mg Nicotine Polacrilex (Nicotine Polacrilex 2 Mg Gum) 4 mg BUCCAL Q2H PRN PRN Reason: Nicotine Cravings Olanzapine (Olanzapine 10 Mg Tablet) 20 mg PO BEDTIME DESIRAE Last Admin: 03/20/25 22:05 Dose: 20 mg Olanzapine (Olanzapine 10 Mg Vial) 10 mg IM BID PRN PRN Reason: PO refusal Last Admin: 12/21/24 10:22 Dose: 10 mg Olanzapine (Olanzapine Odt 10 Mg Tab.Rapdis) 10 mg TRANSLINGU BID PRN PRN Reason: agitation Last Admin: 01/14/25 12:16 Dose: 10 mg Oxcarbazepine (Oxcarbazepine 300 Mg Tablet) 300 mg PO BEDTIME DESIRAE Last Admin: 03/20/25 22:06 Dose: 300 mg Primidone (Primidone 50 Mg Tablet) 25 mg PO BID DESIRAE Last Admin: 03/21/25 08:41 Dose: 25 mg Sertraline HCl (Sertraline Hcl 100 Mg Tablet) 100 mg PO BEDTIME DESIRAE Last Admin: 03/20/25 22:07 Dose: 100 mg Trazodone HCl (Trazodone Hcl 50 Mg Tablet) 50 mg PO BEDTIME PRN PRN Reason: Insomnia Last Admin: 03/14/25 20:17 Dose: 50 mg Allergies Allergies Allergy/AdvReac Type Severity Reaction Status Date / Time No Known Allergies Allergy Verified 10/14/24 18:14 [No Known Allergies*] Assessment & Plan Assessment & Plan (1) Mood disorder: Status: Acute Code(s): F39 - Unspecified mood [affective] disorder (2) Autism spectrum disorder: Status: Acute Code(s): F84.0 - Autistic disorder (3) Dementia: Status: Acute Code(s): F03.90 - Unspecified dementia, unspecified severity, without behavioral disturbance, psychotic disturbance, mood disturbance, and anxiety Plan Humza was admitted for safety and stabilization. His presentation is very similar to his last admission psychiatrically about a year ago and that is why his caregivers wanted to get ahead of things before he decompensated further. Current medications were reviewed and maintained. Contacts to be made with his treaters next week. 10/17: Continue current regimen and plans 10/19: Continue current tx plan and regime. 10/21: Memantine 5 mg daily- [facility], memory sx Abilify 2 mg daily-augment to antidepressants currently being used. 10/22 continue current tx plan -pt confused 10/23 Continue trials, regime and plan. 10/24: Continue regime and plan of care. 10/25 Abilify increased up to 5 mg. 10/26 keep on same treatment 10/27/24 continues with many complaints, no clear insight into self- 10/28 continue same treatment 10/29 increase Namenda to 5 mg p.o. b.i.d. and change Depakote to Depakene. Depakote level on 13/02 as per blood work of yesterday 10/30/24 - dc abilify inc olanzapine = continue depakene as he did take 5 capsules this am- prn olanzapine given - this afternoon for behaviors on unit- 10/31/24 wrote for liquid depakote option if refuses capsules, also got prn olanzapine for throwing self on floor 11/01 keep same treatment 11/02 increase Zyprexa to 20 mg p.o. q.h.s. 11/03 keep same treatment. 11/04 discontinue Depakote and start Trileptal 300 mg p.o. b.i.d.. Her healthcare proxy will bring a copy of that we are going to invoke it 11/06 increase olanzapine to 20mg po qhs and 10mg po daily. 11/07 continue tx. 12/04 continue tx. 12/05: no changes 12/06 continue tx. 12/12: continue plan of care 12/13: continue tx 12/19 continue current tx plan 12/25: appearing sedated, more of a falls risk, poorer ability to do ADLs. decrease trileptal dosing from 600 BID to 300 BID for now. 12/26: less sedated than yesterday, continue current mgmt, including 1:1, until attending can see pt in the morning. 12/30: continues less sedated. minimally interactive. continue current mgmt. 12/31: per HCP, not at baseline, over-sedated. begin valium taper. decrease valium 5 TID to 4 TID for now. per HCP and SW, HCP has been affirmed in court. IM back-up orders in place and to be enforced by nursing staff. no aggressive or agitated behaviors. 01/02: Continue current regimen and plans Plan 1. Continue with olanzapine 10 mg p.o. q.a.m. and 20 mg p.o. q.h.s., he refused p.o. he received olanzapine IM. 2. Continue with Valium 5 mg p.o. t.i.d. if he refuses he will get Valium IM. 3. We will encourage compliance. The patient had been noncompliant with sertraline, he remains dysphoric. 4. The patient has a healthcare proxy who was affirmed by court, and they want us to medicate him even if the patient does not want to be compliant. 5. At this moment the patient is slightly over-sedated with EPS but we will keep the same dose of antipsychotics since his violence has improved. 01/03/25 Continue plan of care Reassess treatment plan which includes IM medication patient has been much less aggressive than he has in the past Unclear discharge plan at this point 01/04/2025 Patient taking Valium and olanzapine regularly has IM prescribed if refuses intermittently taking medication for diabetes hypertension 01/05/25 Cont medicationhas been stabilizing try and d/c meds that are not esential simplify regimen 01/06/25 stop namenda monitor sugar / bp encourage med acceptance cont valium olanzapine 01/08/2025 Continue olanzapine Valium metformin try and taper and simplify medication as tolerated discharge planning monitor response to change in medication 01/09/25 Try and simplify med regimen d/c planning 01/11/2025 Patient generally more cooperative not agitated generally monitor blood sugar and blood pressure intermittently refuses some doses of metformin 01/12/25 Pt seen later in day seemed stable flat some balance problems noted lowwer trileptal and primidone ck ortho vs dailypt consult for balance 01/13/2025 Patient improving less reactive has not been aggressive more cooperative with treatment and medication. Discharge planning 01/14: fell this morning, per head/c-spine CT and pelvic XR, no osseus injuries. pt appears as at recent mental status. no complaints or requests other than for wheelchair. pt will have 1:1 for ambulation for now. continue current psychopharm mgmt. 01/15: Continue current management and treatment plan. 01/16: continue current management and treatment plan. 01/17 keep same treatment. 01/18 keep same treatment 01/19 keep same treatment 01/20 keep same treatment 01/21 keep same treatment 01/22: calm, cooperative, flat. no questions or complaints. stable presentation. continue current mgmt. 01/23: no change, continue current mgmt. 01/24: stable. continue current mgmt. reps from [facility] coming to [facility] pt for placement today. 01/25/2025 Patient in behavioral control vital signs stable generally accepting treatment continue discharge planning 01/26/2025 Patient generally cooperative seen in the milieu no aggression suicidality or her problematic behavior. Discharge planning strongly urged transition 01/27/2025 Patient continues to be generally stabilizing not combative agitated or threatening has remained generally calm seems safe for discharge planning much improved over time 01/28/2025 Patient seen psychiatric follow-up patient has significantly improved over the months he is calm cooperative seen watching television somewhat social at times not aggressive or combative 01/29 Continue current regime/plan. Improved. 01/31: stably improved. awaiting placement. continue current mgmt. 02/01: stable. continue current mgmt. awaiting placement. 02/02: no change in presentation or plan. 02/03: stable. continue current mgmt. 02/04/2025 Patient seen psychiatric follow-up no current behavioral difficulties no current ability to place patient in a less restricted setting 02/06: no change in presentation. continue current mgmt. 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 Patient took all medications today; nurse however reports that recently he seemed a little suspicious, on the verge of picking over medications. -vitals WNL -no new labs 02/15/2025 Patient states he is doing okay understands he is waiting for some form of placement. Accepting treatment vital signs unremarkable continue plan of care discharge plan 02/16/2025 No major changes patient has been waiting for placement no less restrictive setting available at this time continues to be cooperative with care no significant behavioral difficulties 02/18/2025 Vital signs stable no need to change current regimen continue discharge planning. No less restrictive setting presently available for discharge 02/19 continue treatment plan 02/22 continue tx. 02/24: no change in presentation. continue current mgmt. 02/26: no change in presentation. continue current mgmt. 02/27: drawn and withdrawn. c/o diplopia both with and without corrective lenses. continue current mgmt. 02/28/2025 Patient calm some anxiety noted future oriented continue plan of care 03/03: stable. continue current mgmt. 03/05: Continue current regimen and plans 03/06: Continue current regimen and plans 03/07 continue tx. 03/08: anxiety in good control. in milieu watching TV, appropriately responds to compliment on his shirt. awaiting placement. 03/10: no change in presentation. resting in bed, mild anxiety, blurry vision. 03/11: no change in presentation. resting in bed, blurry vision. 03/12 stable; no change in presentation; continue treatment plan 03/14 continue tx. swallowing eval ordered. lisinopril d/c by hospitalist due to low BP and chronic cough. 03/15 continue tx. 03/16: pt refusing chopped diet. per personal communication with TAMMY Crooks, speech and swallow believed his difficulty on eval might have been behavioral and they were being very conservative in ordering the chopped diet but that if it were a problem they were not opposed to reverting to prior diet and continuing to observe. decision made to return to regular diet today due to pt's opposition to chopped diet. pt otherwise stable, reports his anxiety is under control and he is eating, sleeping, showering fine. asking about decision on placement. 03/17 continue tx. 03/18: no change in presentation. continue current mgmt. 03/19: continue current management and treatment plan. 03/20: continue current management and treatment plan. 03/21: continue current management and treatment plan. Reason for continued inpatient stay Substantial Risk for: inability to function and rapid decompensation Time Spent With Patient Time: Total time managing care of this patient today ____ minutes.
[2025-03-21 20:00] VITALS: BP 101/55; PULSE 68; RESP 16; TEMP 36.8; O2SAT 95
[2025-03-21] MEDS: OLANZapine 10 MG TABLET 20 MG PO (20:19)
[2025-03-21] MEDS: Mirtazapine 30 MG TABLET PO (20:19)
[2025-03-21] MEDS: Sertraline HCL 100 MG TABLET PO (20:19)
[2025-03-21] MEDS: OXcarbazepine 300 MG TABLET PO (20:19)
--- NOTE | 2025-03-22 08:43 | P.PNPSI_ITS ---
Subjective Subjective Reason For Visit: Anxiety, mood disorder, ASD Diagnostics Vital Signs (24Hr): Vital Signs - 24 hr 03/21/25 20:00 Temperature 98.2 F Pulse Rate 68 Respiratory Rate 16 Blood Pressure 101/55 L Pulse Oximetry 95 Oxygen Delivery Method Room Air BMI result Body Mass Index 26.6 Labs 10/28/24 09:10 03/18/25 08:50 Imaging Radiology Impressions: ITS Impressions Hip X-Ray 01/12/25 13:30 IMPRESSION: No evidence of fracture of the bilateral hips. Electronically signed by: Kaushal Soni MD 01/12/2025 01:54 PM EDT RP Cervical Spine CT 01/14/25 07:59 IMPRESSION: Multilevel cervical spondylosis without acute fracture or trauma-related listhesis. Fleischner guidelines were followed. Electronically signed by: Abe Griffin MD 01/14/2025 09:50 AM EDT RP Head CT 01/14/25 08:30 IMPRESSION: No acute intracranial abnormality. No fracture seen. Electronically signed by: Chidi Rodriguez MD 01/17/2025 01:08 PM EDT RP Hip/Pelvis X-Ray 01/14/25 09:10 IMPRESSION: No acute fracture or dislocation. Electronically signed by: Abe Griffin MD 01/14/2025 10:35 AM EDT RP Medications Medications Current Medications Acetaminophen (Acetaminophen 325 Mg Tablet) 650 mg PO Q6H PRN PRN Reason: pain scale (1-10) Benzocaine (Throat Lozenge, Medicated Lozenge) 1 lozenge MUCOUS MEM Q2H PRN PRN Reason: Sore Throat Last Admin: 03/18/25 21:36 Dose: 1 lozenge Benztropine Mesylate (Benztropine Mesylate 1 Mg Tablet) 1 mg PO BEDTIME PRN PRN Reason: Extrapyramidal Effects Diazepam (Diazepam 10 Mg/2 Ml Cartridge) 5 mg IM TID PRN PRN Reason: PO refusal. HOLD FOR SEDATION Last Admin: 12/21/24 10:22 Dose: 5 mg Diazepam (Diazepam 5 Mg Tablet) 5 mg PO TID DESIRAE Last Admin: 03/21/25 20:19 Dose: 5 mg Empagliflozin (Empagliflozin 10 Mg Tablet) 10 mg PO DAILY DESIRAE Last Admin: 03/21/25 08:41 Dose: 10 mg Magnesium Hydroxide (Milk Of Magnesia 30 Ml Oral.Susp) 30 ml PO DAILY PRN PRN Reason: Constipation Last Admin: 02/04/25 14:59 Dose: 30 ml Metformin HCl (Metformin Hcl Er 500 Mg Tab.Er.24h) 1,000 mg PO DAILY DESIRAE Last Admin: 03/21/25 08:41 Dose: 1,000 mg Mirtazapine (Mirtazapine 30 Mg Tablet) 30 mg PO BEDTIME DESIRAE Last Admin: 03/21/25 20:19 Dose: 30 mg Nicotine Polacrilex (Nicotine Polacrilex 2 Mg Gum) 4 mg BUCCAL Q2H PRN PRN Reason: Nicotine Cravings Olanzapine (Olanzapine 10 Mg Tablet) 20 mg PO BEDTIME DESIRAE Last Admin: 03/21/25 20:19 Dose: 20 mg Olanzapine (Olanzapine 10 Mg Vial) 10 mg IM BID PRN PRN Reason: PO refusal Last Admin: 12/21/24 10:22 Dose: 10 mg Olanzapine (Olanzapine Odt 10 Mg Tab.Rapdis) 10 mg TRANSLINGU BID PRN PRN Reason: agitation Last Admin: 01/14/25 12:16 Dose: 10 mg Oxcarbazepine (Oxcarbazepine 300 Mg Tablet) 300 mg PO BEDTIME DESIRAE Last Admin: 03/21/25 20:19 Dose: 300 mg Primidone (Primidone 50 Mg Tablet) 25 mg PO BID DESIRAE Last Admin: 03/21/25 20:19 Dose: 25 mg Sertraline HCl (Sertraline Hcl 100 Mg Tablet) 100 mg PO BEDTIME DESIRAE Last Admin: 03/21/25 20:19 Dose: 100 mg Trazodone HCl (Trazodone Hcl 50 Mg Tablet) 50 mg PO BEDTIME PRN PRN Reason: Insomnia Last Admin: 03/14/25 20:17 Dose: 50 mg Allergies Allergies Allergy/AdvReac Type Severity Reaction Status Date / Time No Known Allergies Allergy Verified 10/14/24 18:14 [No Known Allergies*] Assessment & Plan Assessment & Plan (1) Mood disorder: Status: Acute Code(s): F39 - Unspecified mood [affective] disorder (2) Autism spectrum disorder: Status: Acute Code(s): F84.0 - Autistic disorder (3) Dementia: Status: Acute Code(s): F03.90 - Unspecified dementia, unspecified severity, without behavioral disturbance, psychotic disturbance, mood disturbance, and anxiety Plan Humza was admitted for safety and stabilization. His presentation is very similar to his last admission psychiatrically about a year ago and that is why his caregivers wanted to get ahead of things before he decompensated further. Current medications were reviewed and maintained. Contacts to be made with his treaters next week. 10/17: Continue current regimen and plans 10/19: Continue current tx plan and regime. 10/21: Memantine 5 mg daily- [facility], memory sx Abilify 2 mg daily-augment to antidepressants currently being used. 10/22 continue current tx plan -pt confused 10/23 Continue trials, regime and plan. 10/24: Continue regime and plan of care. 10/25 Abilify increased up to 5 mg. 10/26 keep on same treatment 10/27/24 continues with many complaints, no clear insight into self- 10/28 continue same treatment 10/29 increase Namenda to 5 mg p.o. b.i.d. and change Depakote to Depakene. Depakote level on 13/02 as per blood work of yesterday 10/30/24 - ut [facility] olanzapine = continue depakene as he did take 5 capsules this am- prn olanzapine given - this afternoon for behaviors on unit- 10/31/24 wrote for liquid depakote option if refuses capsules, also got prn olanzapine for throwing self on floor 11/01 keep same treatment 11/02 increase Zyprexa to 20 mg p.o. q.h.s. 11/03 keep same treatment. 11/04 discontinue Depakote and start Trileptal 300 mg p.o. b.i.d.. Her healthcare proxy will bring a copy of that we are going to invoke it 11/06 increase olanzapine to 20mg po qhs and 10mg po daily. 11/07 continue tx. 12/04 continue tx. 12/05: no changes 12/06 continue tx. 12/12: continue plan of care 12/13: continue tx 12/19 continue current tx plan 12/25: appearing sedated, more of a falls risk, poorer ability to do ADLs. decrease trileptal dosing from 600 BID to 300 BID for now. 32: less sedated than yesterday, continue current mgmt, including 1:1, until attending can see pt in the morning. 12/30: continues less sedated. minimally interactive. continue current mgmt. 12/31: per HCP, not at baseline, over-sedated. begin valium taper. decrease valium 5 TID to 4 TID for now. per HCP and SW, HCP has been affirmed in court. IM back-up orders in place and to be enforced by nursing staff. no aggressive or agitated behaviors. 01/02: Continue current regimen and plans Plan 1. Continue with olanzapine 10 mg p.o. q.a.m. and 20 mg p.o. q.h.s., he refused p.o. he received olanzapine IM. 2. Continue with Valium 5 mg p.o. t.i.d. if he refuses he will get Valium IM. 3. We will encourage compliance. The patient had been noncompliant with sertraline, he remains dysphoric. 4. The patient has a healthcare proxy who was affirmed by court, and they want us to medicate him even if the patient does not want to be compliant. 5. At this moment the patient is slightly over-sedated with EPS but we will keep the same dose of antipsychotics since his violence has improved. 01/03/25 Continue plan of care Reassess treatment plan which includes IM medication patient has been much less aggressive than he has in the past Unclear discharge plan at this point 01/04/2025 Patient taking Valium and olanzapine regularly has IM prescribed if refuses intermittently taking medication for diabetes hypertension 01/05/25 Cont medicationhas been stabilizing try and d/c meds that are not esential simplify regimen 01/06/25 stop namenda monitor sugar / bp encourage med acceptance cont valium olanzapine 01/08/2025 Continue olanzapine Valium metformin try and taper and simplify medication as tolerated discharge planning monitor response to change in medication 01/09/25 Try and simplify med regimen d/c planning 01/11/2025 Patient generally more cooperative not agitated generally monitor blood sugar and blood pressure intermittently refuses some doses of metformin 01/12/25 Pt seen later in day seemed stable flat some balance problems noted lowwer trileptal and primidone ck ortho vs dailypt consult for balance 01/13/2025 Patient improving less reactive has not been aggressive more cooperative with treatment and medication. Discharge planning 01/14: fell this morning, per head/c-spine CT and pelvic XR, no osseus injuries. pt appears as at recent mental status. no complaints or requests other than for wheelchair. pt will have 1:1 for ambulation for now. continue current psychopharm mgmt. 01/15: Continue current management and treatment plan. 01/16: continue current management and treatment plan. 01/17 keep same treatment. 01/18 keep same treatment 01/19 keep same treatment 01/20 keep same treatment 01/21 keep same treatment 01/22: calm, cooperative, flat. no questions or complaints. stable presentation. continue current mgmt. 01/23: no change, continue current mgmt. 01/24: stable. continue current mgmt. reps from [facility] coming to [facility] pt for placement today. 01/25/2025 Patient in behavioral control vital signs stable generally accepting treatment continue discharge planning 01/26/2025 Patient generally cooperative seen in the milieu no aggression suicidality or her problematic behavior. Discharge planning strongly urged transition 01/27/2025 Patient continues to be generally stabilizing not combative agitated or threatening has remained generally calm seems safe for discharge planning much improved over time 01/28/2025 Patient seen psychiatric follow-up patient has significantly improved over the months he is calm cooperative seen watching television somewhat social at times not aggressive or combative 01/29 Continue current regime/plan. Improved. 01/31: stably improved. awaiting placement. continue current mgmt. 02/01: stable. continue current mgmt. awaiting placement. 02/02: no change in presentation or plan. 02/03: stable. continue current mgmt. 02/04/2025 Patient seen psychiatric follow-up no current behavioral difficulties no current ability to place patient in a less restricted setting 02/06: no change in presentation. continue current mgmt. 02/07/25 cont d/c planning pt has been tentatively accepted no less restrictive setting currently available 02/08/2025 Continue discharge planning patient tentatively accepted no funding source available at this time no less restrictive setting available 02/14 Patient tells sql report writer he is hanging in there he says it can be hard sometimes to do so but it is overall going okay. Patient took all medications today; nurse however reports that recently he seemed a little suspicious, on the verge of picking over medications. -vitals WNL -no new labs 02/15/2025 Patient states he is doing okay understands he is waiting for some form of placement. Accepting treatment vital signs unremarkable continue plan of care discharge plan 02/16/2025 No major changes patient has been waiting for placement no less restrictive setting available at this time continues to be cooperative with care no significant behavioral difficulties 02/18/2025 Vital signs stable no need to change current regimen continue discharge planning. No less restrictive setting presently available for discharge 02/19 continue treatment plan 02/22 continue tx. 02/24: no change in presentation. continue current mgmt. 02/26: no change in presentation. continue current mgmt. 02/27: drawn and withdrawn. c/o diplopia both with and without corrective lenses. continue current mgmt. 02/28/2025 Patient calm some anxiety noted future oriented continue plan of care 03/03: stable. continue current mgmt. 03/05: Continue current regimen and plans 03/06: Continue current regimen and plans 03/07 continue tx. 03/08: anxiety in good control. in milieu watching TV, appropriately responds to compliment on his shirt. awaiting placement. 03/10: no change in presentation. resting in bed, mild anxiety, blurry vision. 03/11: no change in presentation. resting in bed, blurry vision. 03/12 stable; no change in presentation; continue treatment plan 03/14 continue tx. swallowing eval ordered. lisinopril d/c by hospitalist due to low BP and chronic cough. 03/15 continue tx. 03/16: pt refusing chopped diet. per personal communication with TAMMY Crooks, speech and swallow believed his difficulty on eval might have been behavioral and they were being very conservative in ordering the chopped diet but that if it were a problem they were not opposed to reverting to prior diet and continuing to observe. decision made to return to regular diet today due to pt's opposition to chopped diet. pt otherwise stable, reports his anxiety is under control and he is eating, sleeping, showering fine. asking about decision on placement. 03/17 continue tx. 03/18: no change in presentation. continue current mgmt. 03/19: continue current management and treatment plan. 03/20: continue current management and treatment plan. 03/21: continue current management and treatment plan. Time Spent With Patient Time: Total time managing care of this patient today ____ minutes.
[2025-03-22 09:36] VITALS: BP 143/71; PULSE 79; RESP 18; TEMP 36.7; O2SAT 99
[2025-03-22] MEDS: metFORMIN HCl ER 500 MG TAB.ER.24H 1000 MG PO (09:37)
[2025-03-22] MEDS: Empagliflozin 10 MG TABLET PO (09:38)
[2025-03-22] MEDS: Primidone 50 MG TABLET 25 MG PO ×2 (09:38→21:28)
[2025-03-22] MEDS: diazePAM 5 MG TABLET PO ×3 (09:42→21:28)
--- NOTE | 2025-03-22 14:06 | HO.PSYCHPN ---
Subjective Subjective Date of Service: 03/22/25 Reason For Visit: Anxiety, mood disorder, ASD Interim History: Patient casually dressed cooperative. Limited verbal engagement. Remains in good behavioral control. Mood and affect are flat. Feels medications are helpful. Medication compliant. Sleep and appetite are good. No SI. Diagnostics Vital Signs (24Hr): Vital Signs - 24 hr 03/21/25 20:00 03/22/25 09:36 Temperature 98.2 F 98.1 F Pulse Rate 68 79 Respiratory Rate 16 18 Blood Pressure 101/55 L 143/71 H Pulse Oximetry 95 99 Oxygen Delivery Method Room Air Room Air BMI result Body Mass Index 26.6 Labs 10/28/24 09:10 03/18/25 08:50 Imaging Radiology Impressions: ITS Impressions Hip X-Ray 01/12/25 13:30 IMPRESSION: No evidence of fracture of the bilateral hips. Electronically signed by: Kaushal Soni MD 01/12/2025 01:54 PM EDT RP Cervical Spine CT 01/14/25 07:59 IMPRESSION: Multilevel cervical spondylosis without acute fracture or trauma-related listhesis. Fleischner guidelines were followed. Electronically signed by: Abe Griffin MD 01/14/2025 09:50 AM EDT RP Head CT 01/14/25 08:30 IMPRESSION: No acute intracranial abnormality. No fracture seen. Electronically signed by: Chidi Rodriguez MD 01/17/2025 01:08 PM EDT RP Hip/Pelvis X-Ray 01/14/25 09:10 IMPRESSION: No acute fracture or dislocation. Electronically signed by: Abe Griffin MD 01/14/2025 10:35 AM EDT RP Medications Medications Current Medications Acetaminophen (Acetaminophen 325 Mg Tablet) 650 mg PO Q6H PRN PRN Reason: pain scale (1-10) Benzocaine (Throat Lozenge, Medicated Lozenge) 1 lozenge MUCOUS MEM Q2H PRN PRN Reason: Sore Throat Last Admin: 03/18/25 21:36 Dose: 1 lozenge Benztropine Mesylate (Benztropine Mesylate 1 Mg Tablet) 1 mg PO BEDTIME PRN PRN Reason: Extrapyramidal Effects Diazepam (Diazepam 10 Mg/2 Ml Cartridge) 5 mg IM TID PRN PRN Reason: PO refusal. HOLD FOR SEDATION Last Admin: 12/21/24 10:22 Dose: 5 mg Diazepam (Diazepam 5 Mg Tablet) 5 mg PO TID DESIRAE Last Admin: 03/22/25 09:42 Dose: 5 mg Empagliflozin (Empagliflozin 10 Mg Tablet) 10 mg PO DAILY DESIRAE Last Admin: 03/22/25 09:38 Dose: 10 mg Magnesium Hydroxide (Milk Of Magnesia 30 Ml Oral.Susp) 30 ml PO DAILY PRN PRN Reason: Constipation Last Admin: 02/04/25 14:59 Dose: 30 ml Metformin HCl (Metformin Hcl Er 500 Mg Tab.Er.24h) 1,000 mg PO DAILY DESIRAE Last Admin: 03/22/25 09:37 Dose: 1,000 mg Mirtazapine (Mirtazapine 30 Mg Tablet) 30 mg PO BEDTIME DESIRAE Last Admin: 03/21/25 20:19 Dose: 30 mg Nicotine Polacrilex (Nicotine Polacrilex 2 Mg Gum) 4 mg BUCCAL Q2H PRN PRN Reason: Nicotine Cravings Olanzapine (Olanzapine 10 Mg Tablet) 20 mg PO BEDTIME DESIRAE Last Admin: 03/21/25 20:19 Dose: 20 mg Olanzapine (Olanzapine 10 Mg Vial) 10 mg IM BID PRN PRN Reason: PO refusal Last Admin: 12/21/24 10:22 Dose: 10 mg Olanzapine (Olanzapine Odt 10 Mg Tab.Rapdis) 10 mg TRANSLINGU BID PRN PRN Reason: agitation Last Admin: 01/14/25 12:16 Dose: 10 mg Oxcarbazepine (Oxcarbazepine 300 Mg Tablet) 300 mg PO BEDTIME DESIRAE Last Admin: 03/21/25 20:19 Dose: 300 mg Primidone (Primidone 50 Mg Tablet) 25 mg PO BID DESIRAE Last Admin: 03/22/25 09:38 Dose: 25 mg Sertraline HCl (Sertraline Hcl 100 Mg Tablet) 100 mg PO BEDTIME DESIRAE Last Admin: 03/21/25 20:19 Dose: 100 mg Trazodone HCl (Trazodone Hcl 50 Mg Tablet) 50 mg PO BEDTIME PRN PRN Reason: Insomnia Last Admin: 03/14/25 20:17 Dose: 50 mg Allergies Allergies Allergy/AdvReac Type Severity Reaction Status Date / Time No Known Allergies Allergy Verified 12/19/24 18:14 [No Known Allergies*] Assessment & Plan Assessment & Plan (1) Mood disorder: Status: Acute Code(s): F39 - Unspecified mood [affective] disorder (2) Autism spectrum disorder: Status: Acute Code(s): F84.0 - Autistic disorder (3) Dementia: Status: Acute Code(s): F03.90 - Unspecified dementia, unspecified severity, without behavioral disturbance, psychotic disturbance, mood disturbance, and anxiety Plan Continue plan of care discharge planning Reason for continued inpatient stay Substantial Risk for: inability to function and rapid decompensation Time Spent With Patient Time: Total time managing care of this patient today ____ minutes.
[2025-03-22 20:00] VITALS: BP 111/55; PULSE 73; RESP 17; TEMP 36.1; O2SAT 97
[2025-03-22] MEDS: Mirtazapine 30 MG TABLET PO (21:28)
[2025-03-22] MEDS: OLANZapine 10 MG TABLET 20 MG PO (21:28)
[2025-03-22] MEDS: Sertraline HCL 100 MG TABLET PO (21:28)
[2025-03-22] MEDS: OXcarbazepine 300 MG TABLET PO (21:28)
[2025-03-23 08:00] VITALS: BP 120/81; PULSE 78; RESP 18; TEMP 36.7; O2SAT 99
[2025-03-23] MEDS: diazePAM 5 MG TABLET PO ×3 (08:44→21:13)
[2025-03-23] MEDS: metFORMIN HCl ER 500 MG TAB.ER.24H 1000 MG PO (08:44)
[2025-03-23] MEDS: Primidone 50 MG TABLET 25 MG PO ×2 (08:44→21:13)
[2025-03-23] MEDS: Empagliflozin 10 MG TABLET PO (08:44)
[2025-03-23 20:00] VITALS: BP 97/53; PULSE 66; RESP 17; TEMP 36.1; O2SAT 96
[2025-03-23] MEDS: Mirtazapine 30 MG TABLET PO (21:13)
[2025-03-23] MEDS: OXcarbazepine 300 MG TABLET PO (21:13)
[2025-03-23] MEDS: OLANZapine 10 MG TABLET 20 MG PO (21:13)
[2025-03-23] MEDS: Sertraline HCL 100 MG TABLET PO (21:13)
[2025-03-24 08:06] VITALS: BP 119/66; PULSE 80; RESP 20; TEMP 36.8; O2SAT 100
[2025-03-24] MEDS: Empagliflozin 10 MG TABLET PO (08:07)
[2025-03-24] MEDS: metFORMIN HCl ER 500 MG TAB.ER.24H 1000 MG PO (08:07)
[2025-03-24] MEDS: Primidone 50 MG TABLET 25 MG PO ×2 (08:08→20:17)
[2025-03-24] MEDS: diazePAM 5 MG TABLET PO ×3 (08:09→20:17)
--- NOTE | 2025-03-24 12:47 | HO.PSYCHPN ---
Subjective Subjective Date of Service: 03/24/25 Reason For Visit: Anxiety, mood disorder, ASD Interim History: seated at table in milieu filling out menu. calm, cooperative, pleasant. asking if there is any good news. MD reports we are still looking for a placement. pt reports his anxiety is under adequate control. Mental Status Exam Mental Status Exam Patient Appearance: Appropriate Patient Orientation: Person and Situation Level of Consciousness: Awake and Appropriate Patient Behavior: Guarded and Passive Mood Description: Withdrawn ( ok ) Affect Description: Withdrawn Patient Cognition Impaired: Yes Ability to Follow Directions: Fair Speech Pattern: Clear Hallucinations: None Delusions: Not Present Thought Process: Distracted and Slowed Thinking Thought Content: positive for [place] and positive for Poverty of Content Judgement: Poor Diagnostics Vital Signs (24Hr): Vital Signs - 24 hr 03/23/25 20:00 03/24/25 08:06 Temperature 96.9 F 98.2 F Pulse Rate 66 80 Respiratory Rate 17 20 Blood Pressure 97/53 L 119/66 Pulse Oximetry 96 100 Oxygen Delivery Method Room Air Room Air BMI result Body Mass Index 26.6 Labs 10/28/24 09:10 03/18/25 08:50 Imaging Radiology Impressions: ITS Impressions Hip X-Ray 01/12/25 13:30 IMPRESSION: No evidence of fracture of the bilateral hips. Electronically signed by: Kaushal Soni MD 01/12/2025 01:54 PM EDT RP Cervical Spine CT 01/14/25 07:59 IMPRESSION: Multilevel cervical spondylosis without acute fracture or trauma-related listhesis. Fleischner guidelines were followed. Electronically signed by: Abe Griffin MD 01/14/2025 09:50 AM EDT RP Head CT 01/14/25 08:30 IMPRESSION: No acute intracranial abnormality. No fracture seen. Electronically signed by: Chidi Rodriguez MD 01/17/2025 01:08 PM EDT RP Hip/Pelvis X-Ray 01/14/25 09:10 IMPRESSION: No acute fracture or dislocation. Electronically signed by: Abe Griffin MD 01/14/2025 10:35 AM EDT RP Medications Medications Current Medications Acetaminophen (Acetaminophen 325 Mg Tablet) 650 mg PO Q6H PRN PRN Reason: pain scale (1-10) Benzocaine (Throat Lozenge, Medicated Lozenge) 1 lozenge MUCOUS MEM Q2H PRN PRN Reason: Sore Throat Last Admin: 03/18/25 21:36 Dose: 1 lozenge Benztropine Mesylate (Benztropine Mesylate 1 Mg Tablet) 1 mg PO BEDTIME PRN PRN Reason: Extrapyramidal Effects Diazepam (Diazepam 10 Mg/2 Ml Cartridge) 5 mg IM TID PRN PRN Reason: PO refusal. HOLD FOR SEDATION Last Admin: 12/21/24 10:22 Dose: 5 mg Diazepam (Diazepam 5 Mg Tablet) 5 mg PO TID [facility] Last Admin: 03/24/25 08:09 Dose: 5 mg Empagliflozin (Empagliflozin 10 Mg Tablet) 10 mg PO DAILY [facility] Last Admin: 03/24/25 08:07 Dose: 10 mg Magnesium Hydroxide (Milk Of Magnesia 30 Ml Oral.Susp) 30 ml PO DAILY PRN PRN Reason: Constipation Last Admin: 02/04/25 14:59 Dose: 30 ml Metformin HCl (Metformin Hcl Er 500 Mg Tab.Er.24h) 1,000 mg PO DAILY [facility] Last Admin: 03/24/25 08:07 Dose: 1,000 mg Mirtazapine (Mirtazapine 30 Mg Tablet) 30 mg PO BEDTIME [facility] Last Admin: 03/23/25 21:13 Dose: 30 mg Nicotine Polacrilex (Nicotine Polacrilex 2 Mg Gum) 4 mg BUCCAL Q2H PRN PRN Reason: Nicotine Cravings Olanzapine (Olanzapine 10 Mg Tablet) 20 mg PO BEDTIME [facility] Last Admin: 03/23/25 21:13 Dose: 20 mg Olanzapine (Olanzapine 10 Mg Vial) 10 mg IM BID PRN PRN Reason: PO refusal Last Admin: 12/21/24 10:22 Dose: 10 mg Olanzapine (Olanzapine Odt 10 Mg Tab.Rapdis) 10 mg TRANSLINGU BID PRN PRN Reason: agitation Last Admin: 01/14/25 12:16 Dose: 10 mg Oxcarbazepine (Oxcarbazepine 300 Mg Tablet) 300 mg PO BEDTIME [facility] Last Admin: 03/23/25 21:13 Dose: 300 mg Primidone (Primidone 50 Mg Tablet) 25 mg PO BID [facility] Last Admin: 03/24/25 08:08 Dose: 25 mg Sertraline HCl (Sertraline Hcl 100 Mg Tablet) 100 mg PO BEDTIME DESIRAE Last Admin: 03/23/25 21:13 Dose: 100 mg Trazodone HCl (Trazodone Hcl 50 Mg Tablet) 50 mg PO BEDTIME PRN PRN Reason: Insomnia Last Admin: 03/14/25 20:17 Dose: 50 mg Allergies Allergies Allergy/AdvReac Type Severity Reaction Status Date / Time No Known Allergies Allergy Verified 10/14/24 18:14 [No Known Allergies*] Assessment & Plan Assessment & Plan (1) Mood disorder: Status: Acute Code(s): F39 - Unspecified mood [affective] disorder (2) Autism spectrum disorder: Status: Acute Code(s): F84.0 - Autistic disorder (3) Dementia: Status: Acute Code(s): F03.90 - Unspecified dementia, unspecified severity, without behavioral disturbance, psychotic disturbance, mood disturbance, and anxiety Plan Continue plan of care discharge planning Reason for continued inpatient stay Substantial Risk for: inability to function and rapid decompensation Time Spent With Patient Time: Total time managing care of this patient today ____ minutes.
[2025-03-24 13:53] VITALS: BMI 27.3
[2025-03-24 20:15] VITALS: BP 109/59; PULSE 70; RESP 16; TEMP 36.8; O2SAT 99
[2025-03-24] MEDS: Mirtazapine 30 MG TABLET PO (20:17)
[2025-03-24] MEDS: Sertraline HCL 100 MG TABLET PO (20:17)
[2025-03-24] MEDS: OXcarbazepine 300 MG TABLET PO (20:18)
[2025-03-24] MEDS: OLANZapine 10 MG TABLET 20 MG PO (20:18)
--- NOTE | 2025-03-24 23:42 | P.PNPSI_ITS ---
Subjective Subjective Reason For Visit: Anxiety, mood disorder, ASD Diagnostics Vital Signs (24Hr): Vital Signs - 24 hr 03/24/25 08:06 03/24/25 20:15 Temperature 98.2 F 98.2 F Pulse Rate 80 70 Respiratory Rate 20 16 Blood Pressure 119/66 109/59 L Pulse Oximetry 100 99 Oxygen Delivery Method Room Air Room Air BMI result Body Mass Index 27.3 Labs 10/28/24 09:10 03/18/25 08:50 Imaging Radiology Impressions: ITS Impressions Hip X-Ray 01/12/25 13:30 IMPRESSION: No evidence of fracture of the bilateral hips. Electronically signed by: Kaushal Soni MD 01/12/2025 01:54 PM EDT RP Cervical Spine CT 01/14/25 07:59 IMPRESSION: Multilevel cervical spondylosis without acute fracture or trauma-related listhesis. Fleischner guidelines were followed. Electronically signed by: Abe Griffin MD 01/14/2025 09:50 AM EDT RP Head CT 01/14/25 08:30 IMPRESSION: No acute intracranial abnormality. No fracture seen. Electronically signed by: Chidi Rodriguez MD 01/17/2025 01:08 PM EDT RP Hip/Pelvis X-Ray 01/14/25 09:10 IMPRESSION: No acute fracture or dislocation. Electronically signed by: Abe Griffin MD 01/14/2025 10:35 AM EDT RP Medications Medications Current Medications Acetaminophen (Acetaminophen 325 Mg Tablet) 650 mg PO Q6H PRN PRN Reason: pain scale (1-10) Benzocaine (Throat Lozenge, Medicated Lozenge) 1 lozenge MUCOUS MEM Q2H PRN PRN Reason: Sore Throat Last Admin: 03/18/25 21:36 Dose: 1 lozenge Benztropine Mesylate (Benztropine Mesylate 1 Mg Tablet) 1 mg PO BEDTIME PRN PRN Reason: Extrapyramidal Effects Diazepam (Diazepam 10 Mg/2 Ml Cartridge) 5 mg IM TID PRN PRN Reason: PO refusal. HOLD FOR SEDATION Last Admin: 12/21/24 10:22 Dose: 5 mg Diazepam (Diazepam 5 Mg Tablet) 5 mg PO TID [facility] Last Admin: 03/24/25 20:17 Dose: 5 mg Empagliflozin (Empagliflozin 10 Mg Tablet) 10 mg PO DAILY [facility] Last Admin: 03/24/25 08:07 Dose: 10 mg Magnesium Hydroxide (Milk Of Magnesia 30 Ml Oral.Susp) 30 ml PO DAILY PRN PRN Reason: Constipation Last Admin: 02/04/25 14:59 Dose: 30 ml Metformin HCl (Metformin Hcl Er 500 Mg Tab.Er.24h) 1,000 mg PO DAILY [facility] Last Admin: 03/24/25 08:07 Dose: 1,000 mg Mirtazapine (Mirtazapine 30 Mg Tablet) 30 mg PO BEDTIME [facility] Last Admin: 03/24/25 20:17 Dose: 30 mg Nicotine Polacrilex (Nicotine Polacrilex 2 Mg Gum) 4 mg BUCCAL Q2H PRN PRN Reason: Nicotine Cravings Olanzapine (Olanzapine 10 Mg Tablet) 20 mg PO BEDTIME [facility] Last Admin: 03/24/25 20:18 Dose: 20 mg Olanzapine (Olanzapine 10 Mg Vial) 10 mg IM BID PRN PRN Reason: PO refusal Last Admin: 12/21/24 10:22 Dose: 10 mg Olanzapine (Olanzapine Odt 10 Mg Tab.Rapdis) 10 mg TRANSLINGU BID PRN PRN Reason: agitation Last Admin: 01/14/25 12:16 Dose: 10 mg Oxcarbazepine (Oxcarbazepine 300 Mg Tablet) 300 mg PO BEDTIME [facility] Last Admin: 03/24/25 20:18 Dose: 300 mg Primidone (Primidone 50 Mg Tablet) 25 mg PO BID [facility] Last Admin: 03/24/25 20:17 Dose: 25 mg Sertraline HCl (Sertraline Hcl 100 Mg Tablet) 100 mg PO BEDTIME [facility] Last Admin: 03/24/25 20:17 Dose: 100 mg Trazodone HCl (Trazodone Hcl 50 Mg Tablet) 50 mg PO BEDTIME PRN PRN Reason: Insomnia Last Admin: 03/14/25 20:17 Dose: 50 mg Allergies Allergies Allergy/AdvReac Type Severity Reaction Status Date / Time No Known Allergies Allergy Verified 10/14/24 18:14 [No Known Allergies*] Assessment & Plan Assessment & Plan (1) Mood disorder: Status: Acute Code(s): F39 - Unspecified mood [affective] disorder (2) Autism spectrum disorder: Status: Acute Code(s): F84.0 - Autistic disorder (3) Dementia: Status: Acute Code(s): F03.90 - Unspecified dementia, unspecified severity, without behavioral disturbance, psychotic disturbance, mood disturbance, and anxiety Plan Continue plan of care discharge planning Time Spent With Patient Time: Total time managing care of this patient today ____ minutes.
[2025-03-25 08:00] VITALS: BP 114/70; PULSE 78; RESP 18; TEMP 36.7; O2SAT 98
[2025-03-25 08:37] LABS: Creatinine Clr Calc Pharmacy 70.7; Estimated Glomerular Filt Rate > 60
[2025-03-25] MEDS: diazePAM 5 MG TABLET PO ×3 (08:50→20:02)
[2025-03-25] MEDS: metFORMIN HCl ER 500 MG TAB.ER.24H 1000 MG PO (08:50)
[2025-03-25] MEDS: Empagliflozin 10 MG TABLET PO (08:50)
[2025-03-25] MEDS: Primidone 50 MG TABLET 25 MG PO ×2 (08:51→20:02)
--- NOTE | 2025-03-25 11:23 | P.PNPSI_ITS ---
Subjective Subjective Date of Service: 03/25/25 Reason For Visit: Anxiety, mood disorder, ASD Interim History: informed of plan to admit to facility in [place], which seemed to please him. no complaints or requests. per staff, dep/anx 4. eating well. taking meds. slept well. Mental Status Exam Mental Status Exam Patient Appearance: Appropriate Patient Orientation: Person and Situation Level of Consciousness: Awake and Appropriate Patient Behavior: Guarded and Passive Mood Description: Withdrawn ( ok ) Affect Description: Withdrawn Patient Cognition Impaired: Yes Ability to Follow Directions: Fair Speech Pattern: Clear Hallucinations: None Delusions: Not Present Thought Process: Distracted and Slowed Thinking Thought Content: positive for [place] and positive for Poverty of Content Judgement: Poor Diagnostics Vital Signs (24Hr): Vital Signs - 24 hr 03/24/25 20:15 03/25/25 08:00 Temperature 98.2 F 98.1 F Pulse Rate 70 78 Respiratory Rate 16 18 Blood Pressure 109/59 L 114/70 Pulse Oximetry 99 98 Oxygen Delivery Method Room Air Room Air BMI result Body Mass Index 27.3 Labs 10/28/24 09:10 03/25/25 08:06 Labs: Laboratory Results - last 48 hr 03/25/25 08:06 Creatinine 1.02 Estim Creat Clear Calc 70.7 Estimated GFR > 60 Imaging Radiology Impressions: ITS Impressions Hip X-Ray 01/12/25 13:30 IMPRESSION: No evidence of fracture of the bilateral hips. Electronically signed by: Kaushal Soni MD 01/12/2025 01:54 PM EDT RP Cervical Spine CT 01/14/25 07:59 IMPRESSION: Multilevel cervical spondylosis without acute fracture or trauma-related listhesis. Fleischner guidelines were followed. Electronically signed by: Abe Griffin MD 01/14/2025 09:50 AM EDT RP Head CT 01/14/25 08:30 IMPRESSION: No acute intracranial abnormality. No fracture seen. Electronically signed by: Chidi Rodriguez MD 01/17/2025 01:08 PM EDT RP Hip/Pelvis X-Ray 01/14/25 09:10 IMPRESSION: No acute fracture or dislocation. Electronically signed by: Abe Griffin MD 01/14/2025 10:35 AM EDT RP Medications Medications Current Medications Acetaminophen (Acetaminophen 325 Mg Tablet) 650 mg PO Q6H PRN PRN Reason: pain scale (1-10) Benzocaine (Throat Lozenge, Medicated Lozenge) 1 lozenge MUCOUS MEM Q2H PRN PRN Reason: Sore Throat Last Admin: 03/18/25 21:36 Dose: 1 lozenge Benztropine Mesylate (Benztropine Mesylate 1 Mg Tablet) 1 mg PO BEDTIME PRN PRN Reason: Extrapyramidal Effects Diazepam (Diazepam 10 Mg/2 Ml Cartridge) 5 mg IM TID PRN PRN Reason: PO refusal. HOLD FOR SEDATION Last Admin: 12/21/24 10:22 Dose: 5 mg Diazepam (Diazepam 5 Mg Tablet) 5 mg PO TID [facility] Last Admin: 03/25/25 08:50 Dose: 5 mg Empagliflozin (Empagliflozin 10 Mg Tablet) 10 mg PO DAILY [facility] Last Admin: 03/25/25 08:50 Dose: 10 mg Magnesium Hydroxide (Milk Of Magnesia 30 Ml Oral.Susp) 30 ml PO DAILY PRN PRN Reason: Constipation Last Admin: 02/04/25 14:59 Dose: 30 ml Metformin HCl (Metformin Hcl Er 500 Mg Tab.Er.24h) 1,000 mg PO DAILY [facility] Last Admin: 03/25/25 08:50 Dose: 1,000 mg Mirtazapine (Mirtazapine 30 Mg Tablet) 30 mg PO BEDTIME [facility] Last Admin: 03/24/25 20:17 Dose: 30 mg Nicotine Polacrilex (Nicotine Polacrilex 2 Mg Gum) 4 mg BUCCAL Q2H PRN PRN Reason: Nicotine Cravings Olanzapine (Olanzapine 10 Mg Tablet) 20 mg PO BEDTIME [facility] Last Admin: 03/24/25 20:18 Dose: 20 mg Olanzapine (Olanzapine 10 Mg Vial) 10 mg IM BID PRN PRN Reason: PO refusal Last Admin: 12/21/24 10:22 Dose: 10 mg Olanzapine (Olanzapine Odt 10 Mg Tab.Rapdis) 10 mg TRANSLINGU BID PRN PRN Reason: agitation Last Admin: 01/14/25 12:16 Dose: 10 mg Oxcarbazepine (Oxcarbazepine 300 Mg Tablet) 300 mg PO BEDTIME [facility] Last Admin: 03/24/25 20:18 Dose: 300 mg Primidone (Primidone 50 Mg Tablet) 25 mg PO BID [facility] Last Admin: 03/25/25 08:51 Dose: 25 mg Sertraline HCl (Sertraline Hcl 100 Mg Tablet) 100 mg PO BEDTIME [facility] Last Admin: 03/24/25 20:17 Dose: 100 mg Trazodone HCl (Trazodone Hcl 50 Mg Tablet) 50 mg PO BEDTIME PRN PRN Reason: Insomnia Last Admin: 03/14/25 20:17 Dose: 50 mg Allergies Allergies Allergy/AdvReac Type Severity Reaction Status Date / Time No Known Allergies Allergy Verified 10/14/24 18:14 [No Known Allergies*] Assessment & Plan Assessment & Plan (1) Mood disorder: Status: Acute Code(s): F39 - Unspecified mood [affective] disorder (2) Autism spectrum disorder: Status: Acute Code(s): F84.0 - Autistic disorder (3) Dementia: Status: Acute Code(s): F03.90 - Unspecified dementia, unspecified severity, without behavioral disturbance, psychotic disturbance, mood disturbance, and anxiety Plan Continue plan of care discharge planning Reason for continued inpatient stay Substantial Risk for: inability to function and rapid decompensation Time Spent With Patient Time: Total time managing care of this patient today ____ minutes.
[2025-03-25 20:00] VITALS: BP 123/73; PULSE 62; RESP 16; TEMP 36.6; O2SAT 97
[2025-03-25] MEDS: OLANZapine 10 MG TABLET 20 MG PO (20:02)
[2025-03-25] MEDS: OXcarbazepine 300 MG TABLET PO (20:02)
[2025-03-25] MEDS: Sertraline HCL 100 MG TABLET PO (20:02)
[2025-03-25] MEDS: Mirtazapine 30 MG TABLET PO (20:02)
[2025-03-26 08:00] VITALS: BP 116/68; PULSE 81; RESP 14; TEMP 36.7; O2SAT 97
[2025-03-26] MEDS: diazePAM 5 MG TABLET PO ×3 (09:20→20:02)
[2025-03-26] MEDS: Primidone 50 MG TABLET 25 MG PO ×2 (09:20→20:02)
[2025-03-26] MEDS: Empagliflozin 10 MG TABLET PO (09:20)
[2025-03-26] MEDS: metFORMIN HCl ER 500 MG TAB.ER.24H 1000 MG PO (09:20)
--- NOTE | 2025-03-26 12:46 | HO.PSYCHPN ---
Subjective Subjective Date of Service: 03/26/25 Reason For Visit: Anxiety, mood disorder, ASD Subjective Notes: Conditional Voluntary Interim History: Patient was seen and discussed in rounds today. Records and plans were reviewed. He has been about the same, awaiting placement in [place]. Eating and sleeping adequately. No behavioral issues. No changes were made today Review of Systems Review of Systems Yes Unobtainable due to mental status Mental Status Exam Mental Status Exam Patient Appearance: Appropriate Patient Orientation: Person and Situation Level of Consciousness: Awake and Appropriate Patient Behavior: Guarded and Passive Mood Description: Withdrawn ( ok ) Affect Description: Withdrawn Patient Cognition Impaired: Yes Ability to Follow Directions: Fair Speech Pattern: Clear Hallucinations: None Delusions: Not Present Thought Process: Distracted and Slowed Thinking Thought Content: positive for [place] and positive for Poverty of Content Judgement: Poor Diagnostics Vital Signs (24Hr): Vital Signs - 24 hr 03/25/25 20:00 03/26/25 08:00 Temperature 98 F 98.0 F Pulse Rate 62 81 Respiratory Rate 16 14 Blood Pressure 123/73 116/68 Pulse Oximetry 97 97 Oxygen Delivery Method Room Air Room Air BMI result Body Mass Index 27.3 Labs 10/28/24 09:10 03/25/25 08:06 Labs: Laboratory Results - last 48 hr 03/25/25 08:06 Creatinine 1.02 Estim Creat Clear Calc 70.7 Estimated GFR > 60 Imaging Radiology Impressions: ITS Impressions Hip X-Ray 01/12/25 13:30 IMPRESSION: No evidence of fracture of the bilateral hips. Electronically signed by: Kaushal Soni MD 01/12/2025 01:54 PM EDT RP Cervical Spine CT 01/14/25 07:59 IMPRESSION: Multilevel cervical spondylosis without acute fracture or trauma-related listhesis. Fleischner guidelines were followed. Electronically signed by: Abe Griffin MD 01/14/2025 09:50 AM EDT RP Head CT 01/14/25 08:30 IMPRESSION: No acute intracranial abnormality. No fracture seen. Electronically signed by: Chidi Rodriguez MD 01/17/2025 01:08 PM EDT RP Hip/Pelvis X-Ray 01/14/25 09:10 IMPRESSION: No acute fracture or dislocation. Electronically signed by: Abe Griffin MD 01/14/2025 10:35 AM EDT Medications Medications Current Medications Acetaminophen (Acetaminophen 325 Mg Tablet) 650 mg PO Q6H PRN PRN Reason: pain scale (1-10) Benzocaine (Throat Lozenge, Medicated Lozenge) 1 lozenge MUCOUS MEM Q2H PRN PRN Reason: Sore Throat Last Admin: 03/18/25 21:36 Dose: 1 lozenge Benztropine Mesylate (Benztropine Mesylate 1 Mg Tablet) 1 mg PO BEDTIME PRN PRN Reason: Extrapyramidal Effects Diazepam (Diazepam 10 Mg/2 Ml Cartridge) 5 mg IM TID PRN PRN Reason: PO refusal. HOLD FOR SEDATION Last Admin: 12/21/24 10:22 Dose: 5 mg Diazepam (Diazepam 5 Mg Tablet) 5 mg PO TID [facility] Last Admin: 03/26/25 09:20 Dose: 5 mg Empagliflozin (Empagliflozin 10 Mg Tablet) 10 mg PO DAILY [facility] Last Admin: 03/26/25 09:20 Dose: 10 mg Magnesium Hydroxide (Milk Of Magnesia 30 Ml Oral.Susp) 30 ml PO DAILY PRN PRN Reason: Constipation Last Admin: 02/04/25 14:59 Dose: 30 ml Metformin HCl (Metformin Hcl Er 500 Mg Tab.Er.24h) 1,000 mg PO DAILY [facility] Last Admin: 03/26/25 09:20 Dose: 1,000 mg Mirtazapine (Mirtazapine 30 Mg Tablet) 30 mg PO BEDTIME [facility] Last Admin: 03/25/25 20:02 Dose: 30 mg Nicotine Polacrilex (Nicotine Polacrilex 2 Mg Gum) 4 mg BUCCAL Q2H PRN PRN Reason: Nicotine Cravings Olanzapine (Olanzapine 10 Mg Tablet) 20 mg PO BEDTIME [facility] Last Admin: 03/25/25 20:02 Dose: 20 mg Olanzapine (Olanzapine 10 Mg Vial) 10 mg IM BID PRN PRN Reason: PO refusal Last Admin: 12/21/24 10:22 Dose: 10 mg Olanzapine (Olanzapine Odt 10 Mg Tab.Rapdis) 10 mg TRANSLINGU BID PRN PRN Reason: agitation Last Admin: 01/14/25 12:16 Dose: 10 mg Oxcarbazepine (Oxcarbazepine 300 Mg Tablet) 300 mg PO BEDTIME [facility] Last Admin: 03/25/25 20:02 Dose: 300 mg Primidone (Primidone 50 Mg Tablet) 25 mg PO BID [facility] Last Admin: 03/26/25 09:20 Dose: 25 mg Sertraline HCl (Sertraline Hcl 100 Mg Tablet) 100 mg PO BEDTIME [facility] Last Admin: 03/25/25 20:02 Dose: 100 mg Trazodone HCl (Trazodone Hcl 50 Mg Tablet) 50 mg PO BEDTIME PRN PRN Reason: Insomnia Last Admin: 03/14/25 20:17 Dose: 50 mg Allergies Allergies Allergy/AdvReac Type Severity Reaction Status Date / Time No Known Allergies Allergy Verified 10/14/24 18:14 [No Known Allergies*] Assessment & Plan Assessment & Plan (1) Mood disorder: Status: Acute Code(s): F39 - Unspecified mood [affective] disorder (2) Autism spectrum disorder: Status: Acute Code(s): F84.0 - Autistic disorder (3) Dementia: Status: Acute Code(s): F03.90 - Unspecified dementia, unspecified severity, without behavioral disturbance, psychotic disturbance, mood disturbance, and anxiety Plan Continue plan of care discharge planning 03/26: Continue current regimen and plans. Reason for continued inpatient stay Substantial Risk for: inability to function Time Spent With Patient Time: Total time managing care of this patient today ____ minutes.
[2025-03-26 20:00] VITALS: BP 121/72; PULSE 64; RESP 16; TEMP 36.8; O2SAT 96
[2025-03-26] MEDS: Sertraline HCL 100 MG TABLET PO (20:02)
[2025-03-26] MEDS: Mirtazapine 30 MG TABLET PO (20:02)
[2025-03-26] MEDS: OXcarbazepine 300 MG TABLET PO (20:02)
[2025-03-26] MEDS: OLANZapine 10 MG TABLET 20 MG PO (20:03)
[2025-03-27 07:55] VITALS: BP 141/78; PULSE 78; RESP 18; TEMP 37.1; O2SAT 97
[2025-03-27] MEDS: diazePAM 5 MG TABLET PO (08:07)
[2025-03-27] MEDS: Empagliflozin 10 MG TABLET PO (08:07)
[2025-03-27] MEDS: Primidone 50 MG TABLET 25 MG PO ×2 (08:07→21:13)
[2025-03-27] MEDS: metFORMIN HCl ER 500 MG TAB.ER.24H 1000 MG PO (08:07)
--- NOTE | 2025-03-27 11:33 | HO.PSYCHPN ---
Subjective Subjective Date of Service: 03/27/25 Reason For Visit: Anxiety, mood disorder, ASD Subjective Notes: Conditional Voluntary Interim History: Patient was seen and discussed in rounds today. Records and plans were reviewed. No reports of behavioral issues. Eating and sleeping adequately. Awaiting placement. No changes were made today Review of Systems Review of Systems Yes all other systems are reviewed and are negative Mental Status Exam Mental Status Exam Patient Appearance: Appropriate Patient Orientation: Person and Situation Level of Consciousness: Awake and Appropriate Patient Behavior: Guarded and Passive Mood Description: Withdrawn ( ok ) Affect Description: Withdrawn Patient Cognition Impaired: Yes Ability to Follow Directions: Fair Speech Pattern: Clear Hallucinations: None Delusions: Not Present Thought Process: Distracted and Slowed Thinking Thought Content: positive for [place] and positive for Poverty of Content Judgement: Poor Diagnostics Vital Signs (24Hr): Vital Signs - 24 hr 03/26/25 20:00 03/27/25 07:55 Temperature 98.2 F 98.7 F Pulse Rate 64 78 Respiratory Rate 16 18 Blood Pressure 121/72 141/78 H Pulse Oximetry 96 97 Oxygen Delivery Method Room Air Room Air BMI result Body Mass Index 27.3 Labs 10/28/24 09:10 03/25/25 08:06 Imaging Radiology Impressions: ITS Impressions Hip X-Ray 01/12/25 13:30 IMPRESSION: No evidence of fracture of the bilateral hips. Electronically signed by: Kaushal Soni MD 01/12/2025 01:54 PM EDT RP Cervical Spine CT 01/14/25 07:59 IMPRESSION: Multilevel cervical spondylosis without acute fracture or trauma-related listhesis. Fleischner guidelines were followed. Electronically signed by: Abe Griffin MD 01/14/2025 09:50 AM EDT RP Head CT 01/14/25 08:30 IMPRESSION: No acute intracranial abnormality. No fracture seen. Electronically signed by: Chidi Rodriguez MD 01/17/2025 01:08 PM EDT RP Hip/Pelvis X-Ray 01/14/25 09:10 IMPRESSION: No acute fracture or dislocation. Electronically signed by: Abe Griffin MD 01/14/2025 10:35 AM EDT RP Medications Medications Current Medications Acetaminophen (Acetaminophen 325 Mg Tablet) 650 mg PO Q6H PRN PRN Reason: pain scale (1-10) Benzocaine (Throat Lozenge, Medicated Lozenge) 1 lozenge MUCOUS MEM Q2H PRN PRN Reason: Sore Throat Last Admin: 03/18/25 21:36 Dose: 1 lozenge Benztropine Mesylate (Benztropine Mesylate 1 Mg Tablet) 1 mg PO BEDTIME PRN PRN Reason: Extrapyramidal Effects Diazepam (Diazepam 10 Mg/2 Ml Cartridge) 5 mg IM TID PRN PRN Reason: PO refusal. HOLD FOR SEDATION Last Admin: 12/21/24 10:22 Dose: 5 mg Empagliflozin (Empagliflozin 10 Mg Tablet) 10 mg PO DAILY [facility] Last Admin: 03/27/25 08:07 Dose: 10 mg Magnesium Hydroxide (Milk Of Magnesia 30 Ml Oral.Susp) 30 ml PO DAILY PRN PRN Reason: Constipation Last Admin: 02/04/25 14:59 Dose: 30 ml Metformin HCl (Metformin Hcl Er 500 Mg Tab.Er.24h) 1,000 mg PO DAILY [facility] Last Admin: 03/27/25 08:07 Dose: 1,000 mg Mirtazapine (Mirtazapine 30 Mg Tablet) 30 mg PO BEDTIME [facility] Last Admin: 03/26/25 20:02 Dose: 30 mg Nicotine Polacrilex (Nicotine Polacrilex 2 Mg Gum) 4 mg BUCCAL Q2H PRN PRN Reason: Nicotine Cravings Olanzapine (Olanzapine 10 Mg Tablet) 20 mg PO BEDTIME [facility] Last Admin: 03/26/25 20:03 Dose: 20 mg Olanzapine (Olanzapine 10 Mg Vial) 10 mg IM BID PRN PRN Reason: PO refusal Last Admin: 12/21/24 10:22 Dose: 10 mg Olanzapine (Olanzapine Odt 10 Mg Tab.Rapdis) 10 mg TRANSLINGU BID PRN PRN Reason: agitation Last Admin: 01/14/25 12:16 Dose: 10 mg Oxcarbazepine (Oxcarbazepine 300 Mg Tablet) 300 mg PO BEDTIME [facility] Last Admin: 03/26/25 20:02 Dose: 300 mg Primidone (Primidone 50 Mg Tablet) 25 mg PO BID [facility] Last Admin: 03/27/25 08:07 Dose: 25 mg Sertraline HCl (Sertraline Hcl 100 Mg Tablet) 100 mg PO BEDTIME [facility] Last Admin: 03/26/25 20:02 Dose: 100 mg Trazodone HCl (Trazodone Hcl 50 Mg Tablet) 50 mg PO BEDTIME PRN PRN Reason: Insomnia Last Admin: 03/14/25 20:17 Dose: 50 mg Allergies Allergies Allergy/AdvReac Type Severity Reaction Status Date / Time No Known Allergies Allergy Verified 10/14/24 18:14 [No Known Allergies*] Assessment & Plan Assessment & Plan (1) Mood disorder: Status: Acute Code(s): F39 - Unspecified mood [affective] disorder (2) Autism spectrum disorder: Status: Acute Code(s): F84.0 - Autistic disorder (3) Dementia: Status: Acute Code(s): F03.90 - Unspecified dementia, unspecified severity, without behavioral disturbance, psychotic disturbance, mood disturbance, and anxiety Plan Continue plan of care discharge planning 03/26: Continue current regimen and plans. 03/27: Continue current regimen and plans. Reason for continued inpatient stay Substantial Risk for: med/psych decompensation Time Spent With Patient Time: Total time managing care of this patient today ____ minutes.
[2025-03-27 20:00] VITALS: BP 107/54; PULSE 67; TEMP 36.6; O2SAT 96
[2025-03-27] MEDS: Mirtazapine 30 MG TABLET PO (21:12)
[2025-03-27] MEDS: OLANZapine 10 MG TABLET 20 MG PO (21:12)
[2025-03-27] MEDS: Sertraline HCL 100 MG TABLET PO (21:13)
[2025-03-27] MEDS: OXcarbazepine 300 MG TABLET PO (21:13)
[2025-03-28 07:55] VITALS: BP 114/76; PULSE 77; RESP 18; TEMP 36.8; O2SAT 97
[2025-03-28] MEDS: Empagliflozin 10 MG TABLET PO (08:02)
[2025-03-28] MEDS: metFORMIN HCl ER 500 MG TAB.ER.24H 1000 MG PO (08:02)
[2025-03-28] MEDS: Primidone 50 MG TABLET 25 MG PO ×2 (08:02→20:02)
[2025-03-28] MEDS: diazePAM 5 MG TABLET PO ×3 (08:57→20:03)
[2025-03-28 19:59] VITALS: BP 100/52; PULSE 67; RESP 16; TEMP 368; TEMP 694.4; O2SAT 96
[2025-03-28] MEDS: Mirtazapine 30 MG TABLET PO (20:02)
[2025-03-28] MEDS: OLANZapine 10 MG TABLET 20 MG PO (20:03)
[2025-03-28] MEDS: OXcarbazepine 300 MG TABLET PO (20:03)
[2025-03-28] MEDS: Sertraline HCL 100 MG TABLET PO (20:03)
--- NOTE | 2025-03-28 23:09 | HO.PSYCHPN ---
Subjective Subjective Reason For Visit: Anxiety, mood disorder, ASD Diagnostics Vital Signs (24Hr): Vital Signs - 24 hr 03/28/25 07:55 03/28/25 19:59 Temperature 98.2 F 694.4 F H Pulse Rate 77 67 Respiratory Rate 18 16 Blood Pressure 114/76 100/52 L Pulse Oximetry 97 96 Oxygen Delivery Method Room Air Room Air BMI result Body Mass Index 27.3 Labs 10/28/24 09:10 03/25/25 08:06 Imaging Radiology Impressions: ITS Impressions Hip X-Ray 01/12/25 13:30 IMPRESSION: No evidence of fracture of the bilateral hips. Electronically signed by: Kaushal Soni MD 01/12/2025 01:54 PM EDT RP Cervical Spine CT 01/14/25 07:59 IMPRESSION: Multilevel cervical spondylosis without acute fracture or trauma-related listhesis. Fleischner guidelines were followed. Electronically signed by: Abe Griffin MD 01/14/2025 09:50 AM EDT RP Head CT 01/14/25 08:30 IMPRESSION: No acute intracranial abnormality. No fracture seen. Electronically signed by: Chidi Rodriguez MD 01/17/2025 01:08 PM EDT RP Hip/Pelvis X-Ray 01/14/25 09:10 IMPRESSION: No acute fracture or dislocation. Electronically signed by: Abe Griffin MD 01/14/2025 10:35 AM EDT RP Medications Medications Current Medications Acetaminophen (Acetaminophen 325 Mg Tablet) 650 mg PO Q6H PRN PRN Reason: pain scale (1-10) Benzocaine (Throat Lozenge, Medicated Lozenge) 1 lozenge MUCOUS MEM Q2H PRN PRN Reason: Sore Throat Last Admin: 03/18/25 21:36 Dose: 1 lozenge Benztropine Mesylate (Benztropine Mesylate 1 Mg Tablet) 1 mg PO BEDTIME PRN PRN Reason: Extrapyramidal Effects Diazepam (Diazepam 10 Mg/2 Ml Cartridge) 5 mg IM TID PRN PRN Reason: PO refusal. HOLD FOR SEDATION Last Admin: 12/21/24 10:22 Dose: 5 mg Diazepam (Diazepam 5 Mg Tablet) 5 mg PO TID [facility] Last Admin: 03/28/25 20:03 Dose: 5 mg Empagliflozin (Empagliflozin 10 Mg Tablet) 10 mg PO DAILY [facility] Last Admin: 03/28/25 08:02 Dose: 10 mg Magnesium Hydroxide (Milk Of Magnesia 30 Ml Oral.Susp) 30 ml PO DAILY PRN PRN Reason: Constipation Last Admin: 02/04/25 14:59 Dose: 30 ml Metformin HCl (Metformin Hcl Er 500 Mg Tab.Er.24h) 1,000 mg PO DAILY [facility] Last Admin: 03/28/25 08:02 Dose: 1,000 mg Mirtazapine (Mirtazapine 30 Mg Tablet) 30 mg PO BEDTIME [facility] Last Admin: 03/28/25 20:02 Dose: 30 mg Nicotine Polacrilex (Nicotine Polacrilex 2 Mg Gum) 4 mg BUCCAL Q2H PRN PRN Reason: Nicotine Cravings Olanzapine (Olanzapine 10 Mg Tablet) 20 mg PO BEDTIME [facility] Last Admin: 03/28/25 20:03 Dose: 20 mg Olanzapine (Olanzapine 10 Mg Vial) 10 mg IM BID PRN PRN Reason: PO refusal Last Admin: 12/21/24 10:22 Dose: 10 mg Olanzapine (Olanzapine Odt 10 Mg Tab.Rapdis) 10 mg TRANSLINGU BID PRN PRN Reason: agitation Last Admin: 01/14/25 12:16 Dose: 10 mg Oxcarbazepine (Oxcarbazepine 300 Mg Tablet) 300 mg PO BEDTIME [facility] Last Admin: 03/28/25 20:03 Dose: 300 mg Primidone (Primidone 50 Mg Tablet) 25 mg PO BID [facility] Last Admin: 03/28/25 20:02 Dose: 25 mg Sertraline HCl (Sertraline Hcl 100 Mg Tablet) 100 mg PO BEDTIME [facility] Last Admin: 03/28/25 20:03 Dose: 100 mg Trazodone HCl (Trazodone Hcl 50 Mg Tablet) 50 mg PO BEDTIME PRN PRN Reason: Insomnia Last Admin: 03/14/25 20:17 Dose: 50 mg Allergies Allergies Allergy/AdvReac Type Severity Reaction Status Date / Time No Known Allergies Allergy Verified 10/14/24 18:14 [No Known Allergies*] Assessment & Plan Assessment & Plan (1) Mood disorder: Status: Acute Code(s): F39 - Unspecified mood [affective] disorder (2) Autism spectrum disorder: Status: Acute Code(s): F84.0 - Autistic disorder (3) Dementia: Status: Acute Code(s): F03.90 - Unspecified dementia, unspecified severity, without behavioral disturbance, psychotic disturbance, mood disturbance, and anxiety Plan Continue plan of care discharge planning 03/26: Continue current regimen and plans. 03/27: Continue current regimen and plans. Time Spent With Patient Time: Total time managing care of this patient today ____ minutes.
[2025-03-29 08:18] VITALS: BP 128/81; PULSE 78; RESP 16; TEMP 36.8; O2SAT 98
[2025-03-29] MEDS: metFORMIN HCl ER 500 MG TAB.ER.24H 1000 MG PO (08:53)
[2025-03-29] MEDS: Primidone 50 MG TABLET 25 MG PO (08:53)
[2025-03-29] MEDS: Empagliflozin 10 MG TABLET PO (08:53)
[2025-03-29] MEDS: diazePAM 5 MG TABLET PO (08:54)
--- NOTE | 2025-03-29 11:53 | P.DS_ITS ---
DS: Providers Provider Date of Service: 03/29/25 Date of admission: 10/15/24 14:43 Date of discharge: 03/29/25 Primary care physician: Eric Rios MD DS: Diagnosis Discharge Diagnosis (1) Mood disorder: Status: Acute (2) Autism spectrum disorder: Status: Acute (3) Dementia: Status: Acute DS: Medications Discharge Medications Home Medications: Previous Rx's ?Medication ?Instructions ?Recorded diazepam 5 mg tablet 5 mg PO TID #90 tabs 03/28/25 empagliflozin 10 mg tablet 10 mg PO DAILY #30 tabs 03/28/25 (Jardiance) metformin 1,000 mg tablet 1,000 mg PO DAILY #30 tabs 03/28/25 mirtazapine 30 mg tablet 30 mg PO BEDTIME #30 tabs 03/28/25 olanzapine 20 mg tablet 20 mg PO BEDTIME #30 tabs 03/28/25 oxcarbazepine 300 mg tablet 300 mg PO BEDTIME #30 tabs 03/28/25 primidone 50 mg tablet 25 mg (1/2 x 50 mg) PO BID #30 tabs 03/28/25 sertraline 100 mg tablet 100 mg PO BEDTIME #30 tabs 03/28/25 trazodone 50 mg tablet 50 mg PO BEDTIME PRN Insomnia #30 03/28/25 tabs Mental Status Exam Mental Status Exam Narrative: Appearance: wearing casual clothing, good hygiene, in NAD Behavior: cooperative, superficially Psychomotor: resting/action tremor- on promidone Speech: mumbles, regular rate/rhythm, spontaneous TP: some degree of poverty of thought TC: feeling well Mood: okay Affect: congruent SI: none HI: none VH/AH: none Delusions: none Insight/judgment: impaired x 2. Data Data Completed and Pending Completed studies during hospitalization [Text1]: 03/25/25 08:06 Creatinine 1.02 Estim Creat Clear Calc 70.7 Estimated GFR > 60 Imaging Diagnostic Imaging Impressions Hip X-Ray 01/12/25 13:30 IMPRESSION: No evidence of fracture of the bilateral hips. Electronically signed by: Kaushal Soni MD 01/12/2025 01:54 PM EDT Cervical Spine CT 01/14/25 07:59 IMPRESSION: Multilevel cervical spondylosis without acute fracture or trauma-related listhesis. Fleischner guidelines were followed. Electronically signed by: Abe Griffin MD 01/14/2025 09:50 AM EDT RP Head CT 01/14/25 08:30 IMPRESSION: No acute intracranial abnormality. No fracture seen. Electronically signed by: Chidi Rodriguez MD 01/17/2025 01:08 PM EDT RP Hip/Pelvis X-Ray 01/14/25 09:10 IMPRESSION: No acute fracture or dislocation. Electronically signed by: Abe Griffin MD 01/14/2025 10:35 AM EDT RP DS: Summary Hospital Course Hospital Course: Kathleen is a 63-year-old white, single, disabled man with history of depression, anxiety, mood disorder and developmental disorder and autism. He has been hospitalized here previously. He lives alone in [facility] with visiting nurse supervision of his medications. He was brought in by his healthcare proxy because of concerns about his showing signs of decompensation with mood instability, crying episodes, throwing himself on the floor when frustrated, not keeping up with his hygiene and eating. His Depakote was recently decreased to 1250 mg because of severe tremors and he states that it has been helpful. His Depakote level was 48. Other labs were reviewed with some renal dysfunction evident with creatinine of 1.2 and low creatinine clearance (estimated). He is additionally on Cogentin 1 mg q.h.s., Remeron 40 mg q.h.s., Zoloft 50 mg daily. For medical reasons he is on atorvastatin 80 mg, Jardiance 10 mg, Lasix 20 mg, Zestril 20 mg, metformin 1000 mg, primidone 50 mg b.i.d. and Flomax 0.4 mg daily. He also did express suicidal ideations and being tired of living prior to coming in but denies that currently. He is not a good historian and the information is mostly obtained from the crisis evaluation and report of the Healthcare proxy Past Psychiatric History: Inpt: [facility] 2022 OP: [facility] Past medication trials: remeron, cymbalta, wellbutrin, olanzapine HOSPITAL COURSE On the unit, patient was admitted on a CV signed by HCP. He presented with agitation, some degree of paranoia thinking that medications were poisoned. He was agitated and at times difficult to redirect. Initially he required IM medications as he declined taking them. In terms of medications- he was stabilized on combination of trileptal for impulsive and explosive behaviors. Note that he has significant atrophy on bilat frontal lobes. He was started on olanzapine for paranoid ideas and mood stabilization which was titrated to 20mg po qhs. He does have DM type 2- monitor of worsening of BS. Last A1c 6.9% 09/2024. He was started on valium 5mg po TID which seemed to help greatly with anxiety and self regulation. He was continued on sertraline 100mg po daily and remeron 30mg po qhs. In terms of medication conditions, for DM he was continued on metformin, jardiance. His lisinopril was discontinued due to HOTN and chronic cough. Since then BP has been stable. Several days prior to discharge, pt has been presenting as calm and cooperative with no signs of psychosis or delusions. No aggression towards self or others. Sleeping and eating well. Status at Discharge Cognitive/behavioral status at discharge: Pt with constricted, non labile affect. No SI/HI. No psychosis or delusions. sleeping and eating well. Functional status at discharge: independent ambulation Overall status at discharge: patient is back to baseline Time Spent with Patient Time attestation: Total time managing care of this patient today __35__ minutes. Time spent: Greater than 30 minutes Discharge Plan Discharge Anticipated Discharge Date/Time: 03/29/25 11:51 Patient Disposition: Xfer Other Discharge Diagnosis: ASD Major Neurocognitive Disorder Referrals: [facility] [Other] - 03/29/25 12:00 pm (You will be leaving to [facility] on 03/28. This will be your new home, if you need to call your sisters please ask for their phone number.) Discharge Medications: New diazepam 5 mg tablet 5 mg PO TID Qty: 90 0RF mirtazapine 30 mg Tablet 30 mg PO BEDTIME Qty: 30 0RF olanzapine 20 mg tablet 20 mg PO BEDTIME Qty: 30 0RF primidone 50 mg Tablet 25 mg PO BID Qty: 30 0RF oxcarbazepine 300 mg Tablet 300 mg PO BEDTIME Qty: 30 0RF trazodone 50 mg Tablet 50 mg PO BEDTIME PRN (Reason: Insomnia) Qty: 30 0RF sertraline 100 mg Tablet 100 mg PO BEDTIME Qty: 30 0RF Jardiance 10 mg Tablet 10 mg PO DAILY Qty: 30 0RF metformin 1,000 mg tablet 1,000 mg PO DAILY Qty: 30 0RF Discontinued olanzapine 10 mg Tablet 10 mg PO BEDTIME 30 Days Qty: 30 0RF mirtazapine 30 mg Tablet 30 mg PO BEDTIME 30 Days Qty: 30 0RF sertraline 50 mg Tablet 50 mg PO DAILY 30 Days Qty: 30 0RF atorvastatin 80 mg tablet 80 mg PO BEDTIME 30 Days Qty: 30 0RF lisinopril 20 mg tablet 20 mg PO DAILY 30 Days Qty: 30 0RF divalproex 500 mg tablet extended release 24 hr 500 mg PO BEDTIME furosemide 20 mg tablet 20 mg PO DAILY metformin 500 mg tablet extended release 24 hr 500 mg PO BID primidone 50 mg tablet 50 mg PO BID Jardiance 10 mg tablet 10 mg PO DAILY tamsulosin 0.4 mg capsule 0.4 mg PO DAILY divalproex 250 mg tablet,delayed release (DR/EC) 250 mg PO BEDTIME benztropine 1 mg tablet 1 mg PO BEDTIME Discharge Orders: Discharge Order (Routine); Ordered 03/29/25 Ordered By: Mayda Kevin Diet: Diabetic diet Activity on Discharge: As tolerated Stand Alone Forms: Patient Portal Discharge page Print Language: Unable To Collect Care Plan Goals: 1. maintain mood 2. No SI/HI 3. No aggression towards self or others Health Concerns: Follow up with PCP Plan of Treatment: 1. Take medications as prescribed. 2. Go to nearest ED or call 911 in event of emergency Assessment: Pt with constricted but euthymic affect. No SI/HI. No psychosis or delusions. Sleeping and eating well. No aggression towards self or others
== END 2025-03-29 12:28 | disposition other institution (70) | DRG 885 ==
LOC: HO.ED 10-15 07:00 → HO.PM5 10-15 14:44 → HO.PGERI 10-21 18:34
PROVIDERS: Emergency Medicine; Internal Medicine; Physician Assistant; Psychiatry & Neurology Psychiatry; Admitting Provider Clinical Nurse Specialist Psychiatric/Mental Health, Adult; Emergency Provider Emergency Medicine Emergency Medical Services; PCP Internal Medicine; Visit Provider Psychiatry & Neurology Psychiatry
DX: F39 Unspecified mood [affective] disorder (principal); F41.9 Anxiety disorder, unspecified; W19.XXXA Unspecified fall, initial encounter; I95.9 Hypotension, unspecified; N40.0 Benign prostatic hyperplasia without lower urinary tract symptoms; E78.5 Hyperlipidemia, unspecified; E11.9 Type 2 diabetes mellitus without complications; F03.90 Unspecified dementia, unspecified severity, without behavioral disturbance, psychotic disturbance, mood disturbance, and anxiety; I10 Essential (primary) hypertension; R41.9 Unspecified symptoms and signs involving cognitive functions and awareness; F84.0 Autistic disorder; Z79.84 Long term (current) use of oral hypoglycemic drugs; Z79.899 Other long term (current) drug therapy
CPT/HCPCS: 36415; 70450; 72125; 73521; 73522; 80048; 80053; 80061; 80076; 80164; 80307; 81001; 82565; 82607; 82746; 82947; 83036; 83735; 84439; 84443; 85025; 92526; 92610; 93005; 97161; 99284; J2060; J2359; J3230; J3360; S9485

== ENCOUNTER → 2024-10-15 08:52 | Outpatient (BNV) | payer MEDICARE, MEDICAID, SELFPAY | PROVIDERS: Admitting Provider Clinical Nurse Specialist Psychiatric/Mental Health, Adult; Emergency Provider Emergency Medicine Emergency Medical Services; PCP Internal Medicine; Visit Provider Internal Medicine | DX: R94.31 Abnormal electrocardiogram [ECG] [EKG] (principal) | CPT/HCPCS: 93010 ==

== ENCOUNTER 2024-10-15 14:43 | Outpatient (BNV) | payer MEDICARE, MEDICAID, SELFPAY | END 2025-01-14 07:59 | PROVIDERS: Admitting Provider Clinical Nurse Specialist Psychiatric/Mental Health, Adult; Emergency Provider Emergency Medicine Emergency Medical Services; PCP Internal Medicine; Visit Provider Radiology Diagnostic Radiology | DX: S09.90XA Unspecified injury of head, initial encounter (principal) | CPT/HCPCS: 70450; 72125; 73521 ==

== ENCOUNTER 2024-10-15 14:43 | Outpatient (BNV) | payer MEDICARE, MEDICAID, SELFPAY | END 2025-01-12 13:30 | PROVIDERS: Admitting Provider Clinical Nurse Specialist Psychiatric/Mental Health, Adult; Emergency Provider Emergency Medicine Emergency Medical Services; PCP Internal Medicine; Visit Provider Radiology Diagnostic Radiology | DX: M47.812 Spondylosis without myelopathy or radiculopathy, cervical region (principal); F41.9 Anxiety disorder, unspecified; W01.0XXA Fall on same level from slipping, tripping and stumbling without subsequent striking against object, initial encounter | CPT/HCPCS: 73522 ==

== ENCOUNTER → 2024-10-15 14:43 | Outpatient (BNV) | payer MEDICARE, MEDICAID, SELFPAY | PROVIDERS: Admitting Provider Clinical Nurse Specialist Psychiatric/Mental Health, Adult; Emergency Provider Emergency Medicine Emergency Medical Services; PCP Internal Medicine; Visit Provider Student in an Organized Health Care Education/Training Program | DX: R05.9 Cough, unspecified (principal) | CPT/HCPCS: 99232; 99499 ==

== ENCOUNTER → 2024-10-15 14:43 | Outpatient (BNV) | payer MEDICARE, MEDICAID, SELFPAY | PROVIDERS: Admitting Provider Clinical Nurse Specialist Psychiatric/Mental Health, Adult; Emergency Provider Emergency Medicine Emergency Medical Services; PCP Internal Medicine; Visit Provider Psychiatry & Neurology Psychiatry | DX: F39 Unspecified mood [affective] disorder (principal) | CPT/HCPCS: 90792; 99231; 99232 ==

== ENCOUNTER → 2024-10-15 14:43 | Outpatient (BNV) | payer MEDICARE, MEDICAID, SELFPAY | PROVIDERS: Admitting Provider Clinical Nurse Specialist Psychiatric/Mental Health, Adult; Emergency Provider Emergency Medicine Emergency Medical Services; PCP Internal Medicine; Visit Provider Psychiatry & Neurology Psychiatry | DX: F39 Unspecified mood [affective] disorder (principal); F84.0 Autistic disorder; R41.9 Unspecified symptoms and signs involving cognitive functions and awareness | CPT/HCPCS: 99231; 99232 ==